=== PATIENT | female | born 1960 | race Caucasian/White ===

== ENCOUNTER 2022-09-01 17:12 | Emergency (ER) | payer MEDICARE, SELFPAY ==
[2022-09-01] VITALS (10 sets, daily range): BP systolic 112–138; BP diastolic 72–83; PULSE 125–127; RESP 22–34; TEMP 37; O2SAT 90–98; BMI 64.9
--- NOTE | 2022-09-01 17:16 | XR_ITS ---
The [address] [address] Patient Name: DIVINA AMIN MRN: [id number] date: 1960 Sex: F Assigned Patient Location: ER Current Patient Location: ED.MAIN Accession/Order Number: [id number] Exam Date: 09/01/2022 17:38 Report Date: 09/01/2022 18:19 At the request of: HARRISON MARTINEZ Procedure: XR chest 1V EXAM: XR chest 1V HISTORY: pain COMPARISON: None. TECHNIQUE: Chest X-ray AP, 1 view FINDINGS: Support devices: None. Lungs/pleura: No consolidation, effusion, or pneumothorax. Heart and mediastinum: Normal contours. Bones: No acute abnormality identified. XR/XR chest 1V Impression: No radiographic evidence of acute cardiopulmonary process. Electronically authenticated by: ADAN PHILIPPE Date: 09/01/2022 18:19
--- NOTE | 2022-09-01 17:16 | ECG_ITS ---
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
--- NOTE | 2022-09-01 17:34 | ED.GENADUL1 ---
HPI - General Adult General Chief complaint: Shortness of Breath/Dyspnea Time Seen by Provider: 09/01/22 17:16 Source: other Source information: ems Mode of arrival: ambulance History of Present Illness HPI narrative: patient brought emergency room by paramedics from her home. The paramedics indicate that the house was in extremely poor condition is extremely hot. They were told that there was cockroaches. They said that the patient was started on oxygen and a small IV was started. The patient confirms to me that she lives with family members who called for the squad. She says that she's not eat for a couple days because of epigastric pain nausea and vomiting. She says she's also having trouble breathing. She says she has a history of chronic obstructive pulmonary disease and asthma and uses both metered dose inhaler, she has a belies machine but has not been using it. She says she also has a sore in her groin area, her primary care doctor called in an antibiotic for her but did not see her in the office.she is also a diabetic. Her blood sugars tested elevated by the senior geologist squad. Related Data Allergies Allergy/AdvReac Type Severity Reaction Status Date / Time amoxicillin AdvReac Unknown Verified 09/01/22 17:30 Penicillins AdvReac Unknown Verified 09/01/22 17:30 [facility] Social History Smoking status: Current every day smoker Exam Narrative Exam Narrative: patient seen on arrival. EKG shows sinus tachycardia rate one twenty-five. There is no evidence of ST segment elevation when she does not have any heaviness or pressure in her chest. Skin is warm and dry. Pulse oximetry is ninety-seven ninety-eight percent on 3 L. Her lungs showed some wheezing but there is overall good airflow.both her heart rate and respiratory rate were elevated Heart rate and rhythm is tachycardic a do not hear murmur. ENT examination shows no evidence of oral cavity infection. Abdomen is obese but does not have a evidence of cellulitis lesions or tenderness palpation.she has a large panniculus and underneath the abdominal fold in the left groin adjacent to the vagina area is a firm tender area approximately 2 x 3 cm with some surrounding erythema consistent with an abscess. She says it has been draining. Neurological shows no focal neurological deficits, cognition is normal she's awake and alert adequate historian. Constitutional Vital Signs, click to edit/add: Last Vital Signs Temp 98.6 F 09/01/22 17:17 Pulse 127 H 09/01/22 18:14 Resp 34 H 09/01/22 17:17 BP 115/78 09/01/22 17:17 Pulse Ox 98 09/01/22 18:14 O2 Del Method Nasal Cannula 09/01/22 17:45 O2 Flow Rate 3 09/01/22 18:14 Course Vital Signs Vital signs: Vital Signs Temperature 98.6 F 09/01/22 17:17 Pulse Rate 125 H 09/01/22 17:17 Respiratory Rate 34 H 09/01/22 17:17 Blood Pressure 115/78 09/01/22 17:17 Pulse Oximetry 90 L 09/01/22 17:17 Oxygen Delivery Method Room Air 09/01/22 17:17 Temperature 98.6 F 09/01/22 17:17 Pulse Rate 127 H 09/01/22 18:14 Respiratory Rate 34 H 09/01/22 17:17 Blood Pressure 115/78 09/01/22 17:17 Pulse Oximetry 98 09/01/22 18:14 Oxygen Delivery Method Nasal Cannula 09/01/22 17:45 Oxygen Delivery Flow Rate 3 09/01/22 18:14 Medical Decision Making MDM Narrative Medical decision making narrative: this patient presents with both respiratory difficulty and abscess in her left groin and she's not been taking her meds or eating because his epigastric discomfort. IV fluid resuscitation was initiated. I will order biotics. She will need a CT of the abdomen and pelvis. Care will be turned over to Dr. Bliss at change of shift area differential diagnosis at this time includes DKA , sepsis, we'll rule out bowel obstruction Lab Data Labs: Lab Results 09/01/22 09/01/22 Range/Units 17:55 18:05 WBC 21.9 H (4.0-11.0) 10^3/uL RBC 5.47 H (4.20-5.40) 10^6/uL Hgb 16.7 H (12.0-16.0) g/dL Hct 51.8 H (36.0-48.0) % MCV 94.7 (81.0-99.0) fL MCH 30.5 (26.7-34.0) pg MCHC 32.2 (29.9-35.2) g/dL RDW 12.4 (11.0-15.0) % Plt Count 380 (150-450) 10^3/uL MPV 10.5 (9.5-13.5) fL D-Dimer 1.14 H* (<=0.59) mg/L FEU ABG pH 7.033 L* (7.350-7.450) ABG pCO2 <15.4 L* (35.0-45.0) mmHg ABG pO2 139.0 H (80.0-100.0) mmHg ABG HCO3 TNP ABG O2 Saturation 98.2 % ABG Base Excess TNP Anthony Test Positive (POSITIVE) O2 Liters/Min 3 Discharge Plan Discharge Chief Complaint: Shortness of Breath/Dyspnea Clinical Impression: DKA (diabetic ketoacidosis) Patient Disposition: Still a Patient Referrals: Candida Brown [Primary Care Provider] - 1 week
--- NOTE | 2022-09-01 17:43 | CT_ITS ---
[place] [id number] Patient Name: DIVINA AMIN MRN: [id number] date: 1960 Sex: F Assigned Patient Location: ER Current Patient Location: ED.MAIN Accession/Order Number: [id number] Exam Date: 09/01/2022 19:42 Report Date: 09/01/2022 20:38 At the request of: HARRISON MARTINEZ Procedure: CT abdomen pelvis wo con EXAMINATION: CT ABDOMEN AND PELVIS WITHOUT IV CONTRAST CLINICAL HISTORY: Nausea and vomiting. TECHNIQUE: Non-IV contrast imaging of the abdomen and pelvis was performed using standard technique, scanning from just above the dome of the diaphragm to the symphysis pubis. Unenhanced imaging is limited for the evaluation of some intra-abdominal and pelvic pathology. All CT scans at this facility use dose modulation, iterative reconstruction, and/or weight based dosing when appropriate to reduce radiation dose to as low as reasonably achievable. Contrast: IV: None COMPARISON: None. RESULT: Abdomen / Pelvis: Liver: Unremarkable. Biliary: S/p cholecystectomy. Spleen: No splenomegaly. Pancreas: Unremarkable. Adrenals: 2.8 cm left adrenal adenoma. Kidneys: 2 mm right inferior pole nonobstructing calculus. No hydronephrosis. GI Tract: Small hiatal hernia. Otherwise, the stomach is unremarkable. No bowel dilation or wall thickening. Appendix not visualized. There is diverticulosis. No changes of diverticulitis. Lymph Nodes: No lymphadenopathy. Mesentery/peritoneum: No ascites. Retroperitoneum: No mass. Vasculature: Atherosclerotic vascular disease without aneurysm. Pelvis: No mass or ascites. Urinary bladder is unremarkable. Bones/Soft Tissues: Small amount of subcutaneous gas and soft tissue stranding along the left perianal soft tissues (series 3 image and on 42), concerning for necrotizing fasciitis. Degenerative changes of the lumbar spine. Lower thorax: Unremarkable. CT/CT abdomen pelvis wo con IMPRESSION: No acute findings of the abdomen and pelvis. Suspected necrotizing fasciitis along the lateral left perianal region. COMMUNICATION: Communicated with: Emergency room physician by [employer] on 09/01/2022 at 8:38 PM. Electronically authenticated by: SCOTTIE HERNÁNDEZ Date: 09/01/2022 20:38
[2022-09-01] MEDS: IPRATROPIUM/ALBUTEROL SULFATE 3 ML AMPUL.NEB IH (18:13)
[2022-09-01 18:25] LABS: pH ABG 7.033 (7.350-7.450)
[2022-09-01 18:26] LABS: ABG PCO2 <15.4 mmHg (35.0-45.0)
[2022-09-01 18:27] LABS: Allen Test POSITIVE (POSITIVE); Liters per Minute 3; O2 Mode NC; Oxygen Saturation ABG 98.2 %
[2022-09-01] MEDS: 0.9 % SODIUM CHLORIDE 1,000 ML 999 ML IV (18:32)
[2022-09-01] MEDS: ONDANSETRON PF 4 MG/2 ML VIAL IV (18:32)
[2022-09-01 18:34] LABS: Hematocrit 51.8 % (36.0-48.0); Hemoglobin 16.7 g/dL (12.0-16.0); Mean Corpuscular HGB Conc 32.2 g/dL (29.9-35.2); Mean Corpuscular Hemoglobin 30.5 pg (26.7-34.0); Mean Corpuscular Volume 94.7 fL (81.0-99.0); Mean Platelet Volume 10.5 fL (9.5-13.5); Platelet Count 380 10^3/uL (150-450); Red Blood Count 5.47 10^6/uL (4.20-5.40); Red Cell Distribution Width 12.4 % (11.0-15.0); White Blood Count 21.9 10^3/uL (4.0-11.0)
[2022-09-01 18:45] LABS: Lactate/Lactic Acid 1.7 mmol/L (0.4-2.0)
[2022-09-01 18:51] LABS: D Dimer 1.14 mg/L FEU (<=0.59)
[2022-09-01 18:55] LABS: Band Neutrophils Absolute 0.2 10^3/uL (0.0-0.3); Eosinophils Absolute Manual 1.09 10^3/uL (0.00-0.70); Lymphocytes Absolute Manual 0.43 10^3/uL (1.20-3.80); Monocytes Absolute Manual 1.31 10^3/uL (0.30-0.80); Segmented Neut Absolute Manual 18.83 10^3/uL (1.4-6.5)
[2022-09-01 18:56] LABS: Alanine Aminotransferase 23 U/L (14-59); Albumin Globulin Ratio 0.6; Albumin Level 3.1 g/dL (3.4-5.0); Alkaline Phosphatase 261 U/L (46-116); Anion Gap 34.6; Aspartate Amino Transferase 14 U/L (15-37); BUN Creatinine Ratio 16.9; Bilirubin Total 0.6 mg/dL (0.2-1.0); Calcium 10.1 mg/dL (8.5-10.1); Carbon Dioxide 6.2 mmol/L (21.0-32.0); Chloride 97 mmol/L (98-107); Estimated GFR (African America 51 (>=60); Estimated GFR (Non-African Ame 42 (>=60); Globulin 5.6 g/dL; Glucose 481 mg/dL (74-106); Potassium 4.8 mmol/L (3.5-5.1); Sodium 133 mmol/L (136-145); Total Protein 8.7 g/dL (6.4-8.2); Troponin I High Sensitivity 7.9 pg/mL (4.0-51.3)
[2022-09-01] MEDS: VANCOMYCIN HCL 1,500 MG in 0.9 % SODIUM CHLORIDE 500 ML 250 MG IV (19:22)
[2022-09-01 20:12] LABS: Bilirubin Urine SMALL (NEGATIVE); Blood Urine MODERATE (NEGATIVE); Clarity Urine CLEAR (CLEAR); Color Urine LT. YELLOW (YELLOW); Glucose Urine UA 500 mg/dL (NEGATIVE); Ketones Urine >=80 mg/dL (NEGATIVE); Leukocyte Esterase Urine NEGATIVE (NEGATIVE); Nitrite Urine NEGATIVE (NEGATIVE); Protein Urine 30 mg/dL (NEG/TRACE); Specific Gravity Urine >=1.030 (1.005-1.025); Urobilinogen Urine 0.2 EU/dL (0.2-1.0); pH Urine 5.5 (5.0-9.0)
[2022-09-01 20:14] LABS: Urine Microscopic Indicated YES
[2022-09-01 20:20] LABS: Bacteria Urine TRACE #/HPF (NONE SEEN); Crystals Seen? None Seen #/HPF (None Seen); Mucus Urine NONE SEEN (NONE SEEN); Squamous Epithelial Cell Urine FEW #/LPF (NONE/RARE); WBC Urine 0-2 #/HPF (NONE SEEN)
[2022-09-01 20:21] LABS: Cast Seen? NONE SEEN #/LPF (NONE SEEN); Urine Culture Indicated NO
[2022-09-01 20:27] LABS: Acetone SMALL (NEGATIVE)
[2022-09-01 20:33] LABS: Salicylate 8.4 mg/dL (<=19.9)
[2022-09-01 20:40] LABS: Ethanol <3 mg/dL
[2022-09-01] MEDS: 0.9 % SODIUM CHLORIDE 1,000 ML 2000 ML IV (21:52)
[2022-09-01] MEDS: 0.9 % SODIUM CHLORIDE 1,000 ML 1000 ML IV (22:53)
[2022-09-02 11:51] LABS: A. calcoaceticus-baumannii Cpx NOT DETECTED (NOT DETECTE); Bacteroides fragilis NOT DETECTED (NOT DETECTE); Candida albicans NOT DETECTED (NOT DETECTE); Candida auris NOT DETECTED (NOT DETECTE); Candida glabrata NOT DETECTED (NOT DETECTE); Candida krusei NOT DETECTED (NOT DETECTE); Candida parapsilosis NOT DETECTED (NOT DETECTE); Candida tropicalis NOT DETECTED (NOT DETECTE); Cryptococcus neoformans/gattii NOT DETECTED (NOT DETECTE); Enterobacter cloacae complex NOT DETECTED (NOT DETECTE); Enterobacterales NOT DETECTED (NOT DETECTE); Enterococcus faecalis NOT DETECTED (NOT DETECTE); Enterococcus faecium NOT DETECTED (NOT DETECTE); Haemophilus influenzae NOT DETECTED (NOT DETECTE); Klebsiella aerogenes NOT DETECTED (NOT DETECTE); Klebsiella pneumoniae group NOT DETECTED (NOT DETECTE); Listeria monocytogenes NOT DETECTED (NOT DETECTE); Neisseria meningitidis NOT DETECTED (NOT DETECTE); Proteus spp. NOT DETECTED (NOT DETECTE); Pseudomonas aeruginosa NOT DETECTED (NOT DETECTE); Salmonella spp. NOT DETECTED (NOT DETECTE); Serratia marcescens NOT DETECTED (NOT DETECTE); Staphylococcus epidermidis NOT DETECTED (NOT DETECTE); Staphylococcus lugdunensis NOT DETECTED (NOT DETECTE); Stenotrophomonas maltophilia NOT DETECTED (NOT DETECTE); Streptococcus agalactiae NOT DETECTED (NOT DETECTE); Streptococcus pneumoniae NOT DETECTED (NOT DETECTE); Streptococcus pyogenes NOT DETECTED (NOT DETECTE); Streptococcus spp. NOT DETECTED (NOT DETECTE)
[2022-09-02 13:05] LABS: Staphylococcus spp. DETECTED (NOT DETECTE)
--- NOTE | 2022-09-02 14:24 | PC.NURSE ---
+Blood culter rec'vd and Called [facility] where pt was transferred. Spoke with pt's nurse, SUZANNE Banks at [phone] on floor [address] 3. Poss Blood culture results faxed to [phone] after informing SUZANNE Banks of this. SUZANNE Banks asked about pt's personal belongings that were not sent with pt and family is asking about these. Informed Jocelyn that a bag is here with a PJ like top / gown and 1 ring. Informed Jocelyn that this nurse will contact family about left belongings. Called pt's daughter Mercy Canales at [phone] prior to adding this note to chart with no answer, will continue to try to call daughter as time permits
--- NOTE | 2022-09-02 14:52 | PC.NURSE ---
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 Mercy verbalized understanding.
== END 2022-09-01 23:17 | disposition short-term general hospital (02) ==
PROVIDERS: Emergency Medicine Emergency Medical Services; Emergency Provider Emergency Medicine; PCP Nurse Practitioner
DX: A41.9 Sepsis, unspecified organism (principal); E11.10 Type 2 diabetes mellitus with ketoacidosis without coma; M72.6 Necrotizing fasciitis; F17.210 Nicotine dependence, cigarettes, uncomplicated; R06.02 Shortness of breath
CPT/HCPCS: 36415; 36600; 71045; 74176; 80053; 80179; 80320; 81003; 81015; 82009; 82805; 83605; 83690; 83880; 84484; 85007; 85025; 85378; 87040; 87150; 87186; 93005; 94640; 96361; 96374; 96375; 99285; J3370

== ENCOUNTER 2022-10-24 12:04 | Outpatient (REF) | payer MEDICARE, SELFPAY ==
[2022-10-24 13:26] LABS: Anion Gap 13.9; BUN Creatinine Ratio 13.4; Calcium 8.7 mg/dL (8.5-10.1); Carbon Dioxide 21.9 mmol/L (21.0-32.0); Chloride 103 mmol/L (98-107); Estimated GFR (African America 56 (>=60); Estimated GFR (Non-African Ame 46 (>=60); Glucose 168 mg/dL (74-106); Magnesium 1.7 mg/dL (1.8-2.4); Potassium 4.8 mmol/L (3.5-5.1); Sodium 134 mmol/L (136-145)
== END 2022-10-24 12:05 | disposition home or self-care (01) ==
LOC: LAB 12:04
PROVIDERS: PCP Nurse Practitioner
DX: E83.42 Hypomagnesemia (principal)
CPT/HCPCS: 36415; 80048; 83735

== ENCOUNTER 2022-11-06 12:10 | Outpatient (REF) | payer MEDICARE, SELFPAY ==
[2022-11-06 13:27] LABS: Basophils Percent Auto 0.5 % (0.2-2.0); Eosinophils Percent Auto 0.2 % (0.9-7.0); Hematocrit 36.1 % (36.0-48.0); Hemoglobin 11.6 g/dL (12.0-16.0); Immature Granulocytes Abs Auto 0.02 10^3/uL (0.00-0.03); Immature Granulocytes Pct Auto 0.4 % (0.0-0.5); Lymphocytes Percent Auto 35.3 % (20.5-60.0); Mean Corpuscular HGB Conc 32.1 g/dL (29.9-35.2); Mean Corpuscular Hemoglobin 31.2 pg (26.7-34.0); Mean Platelet Volume 9.3 fL (9.5-13.5); Monocytes Absolute Auto 0.6 10^3/uL (0.3-0.8); Monocytes Percent Auto 10.5 % (1.7-12.0); Neutrophils Percent Auto 53.1 % (43.0-75.0); Platelet Count 423 10^3/uL (150-450); Red Blood Count 3.72 10^6/uL (4.20-5.40); Red Cell Distribution Width 14.4 % (11.0-15.0); White Blood Count 5.6 10^3/uL (4.0-11.0)
[2022-11-06 13:42] LABS: Anion Gap 12.7; BUN Creatinine Ratio 7.1; Calcium 8.5 mg/dL (8.5-10.1); Carbon Dioxide 27.9 mmol/L (21.0-32.0); Chloride 104 mmol/L (98-107); Estimated GFR (African America 41 (>=60); Estimated GFR (Non-African Ame 34 (>=60); Glucose 117 mg/dL (74-106); Magnesium 1.7 mg/dL (1.8-2.4); Potassium 4.6 mmol/L (3.5-5.1); Sodium 140 mmol/L (136-145)
== END 2022-11-06 12:11 | disposition home or self-care (01) ==
LOC: LAB 12:10
PROVIDERS: PCP Nurse Practitioner
DX: R11.2 Nausea with vomiting, unspecified (principal)
CPT/HCPCS: 36415; 80048; 83735; 85025

== ENCOUNTER 2022-12-07 09:38 | Outpatient (OUT) | payer MEDICARE, SELFPAY ==
[2022-12-07 10:24] LABS: Anion Gap 13.8; BUN Creatinine Ratio 11.6; Calcium 9.5 mg/dL (8.5-10.1); Carbon Dioxide 25.3 mmol/L (21.0-32.0); Chloride 102 mmol/L (98-107); Estimated GFR (African America 51 (>=60); Estimated GFR (Non-African Ame 42 (>=60); Glucose 272 mg/dL (74-106); Potassium 4.1 mmol/L (3.5-5.1); Sodium 137 mmol/L (136-145)
[2022-12-07 10:39] LABS: Estimated Average Glucose 137 mg/dL; Glycohemoglobin A1C 6.4 % (4.5-6.2)
== END 2022-12-07 09:39 | disposition home or self-care (01) ==
LOC: LAB 09:41
PROVIDERS: PCP Nurse Practitioner; Visit Provider Nurse Practitioner
DX: E11.9 Type 2 diabetes mellitus without complications (principal)
CPT/HCPCS: 36415; 80048; 83036

== ENCOUNTER 2022-12-28 13:50 | Outpatient (OUT) | payer MEDICARE, SELFPAY ==
[2022-12-28 14:55] LABS: Anion Gap 13.5; BUN Creatinine Ratio 18.9; Calcium 8.9 mg/dL (8.5-10.1); Carbon Dioxide 25.2 mmol/L (21.0-32.0); Chloride 105 mmol/L (98-107); Estimated GFR (African America 52 (>=60); Estimated GFR (Non-African Ame 43 (>=60); Glucose 284 mg/dL (74-106); Magnesium 1.6 mg/dL (1.8-2.4); Potassium 3.7 mmol/L (3.5-5.1); Sodium 140 mmol/L (136-145)
== END 2022-12-28 13:51 | disposition home or self-care (01) ==
LOC: LAB 13:50
PROVIDERS: PCP Nurse Practitioner; Visit Provider Nurse Practitioner
DX: N18.30 Chronic kidney disease, stage 3 unspecified (principal); E83.42 Hypomagnesemia
CPT/HCPCS: 36415; 80048; 83735

== ENCOUNTER 2023-08-11 09:56 | Outpatient (OUT) | payer MEDICARE, SELFPAY ==
[2023-08-11 10:40] LABS: Basophils Absolute Auto 0.1 10^3/uL (0.0-0.1); Basophils Percent Auto 0.5 % (0.2-2.0); Eosinophils Absolute Auto 0.2 10^3/uL (0.0-0.7); Eosinophils Percent Auto 1.4 % (0.9-7.0); Hematocrit 42.4 % (36.0-48.0); Hemoglobin 13.8 g/dL (12.0-16.0); Immature Granulocytes Abs Auto 0.03 10^3/uL (0.00-0.03); Immature Granulocytes Pct Auto 0.3 % (0.0-0.5); Lymphocytes Absolute Auto 2.1 10^3/uL (1.2-3.8); Lymphocytes Percent Auto 18.9 % (20.5-60.0); Mean Corpuscular HGB Conc 32.5 g/dL (29.9-35.2); Mean Corpuscular Volume 92.2 fL (81.0-99.0); Mean Platelet Volume 9.9 fL (9.5-13.5); Monocytes Absolute Auto 0.4 10^3/uL (0.3-0.8); Monocytes Percent Auto 3.9 % (1.7-12.0); Neutrophils Absolute Auto 8.2 10^3/uL (1.4-6.5); Platelet Count 333 10^3/uL (150-450); Red Cell Distribution Width 12.3 % (11.0-15.0)
[2023-08-11 10:42] LABS: Bilirubin Urine NEGATIVE (NEGATIVE); Blood Urine NEGATIVE (NEGATIVE); Clarity Urine CLEAR (CLEAR); Color Urine LT. YELLOW (YELLOW); Glucose Urine UA >=1000 mg/dL (NEGATIVE); Ketones Urine NEGATIVE (NEGATIVE); Leukocyte Esterase Urine NEGATIVE (NEGATIVE); Nitrite Urine NEGATIVE (NEGATIVE); Protein Urine NEGATIVE (NEG/TRACE); Urine Microscopic Indicated NO; Urobilinogen Urine 0.2 EU/dL (0.2-1.0); pH Urine 5.5 (5.0-9.0)
[2023-08-11 11:14] LABS: Estimated Average Glucose 303 mg/dL; Glycohemoglobin A1C 12.2 % (4.5-6.2)
[2023-08-11 11:15] LABS: Alanine Aminotransferase 16 U/L (14-59); Albumin Globulin Ratio 0.8; Albumin Level 3.5 g/dL (3.4-5.0); Alkaline Phosphatase 142 U/L (46-116); Anion Gap 15.6; Aspartate Amino Transferase 10 U/L (15-37); BUN Creatinine Ratio 20.4; Bilirubin Total 0.4 mg/dL (0.2-1.0); Calcium 9.1 mg/dL (8.5-10.1); Carbon Dioxide 24.4 mmol/L (21.0-32.0); Chloride 102 mmol/L (98-107); Chol HDL Ratio 3.6; Cholesterol 209 mg/dL (<=200); Estimated GFR (African America 42 (>=60); Estimated GFR (Non-African Ame 35 (>=60); Globulin 4.2 g/dL; Glucose 295 mg/dL (74-106); HDL Cholesterol 58 mg/dL (40-60); Magnesium 1.8 mg/dL (1.8-2.4); Sodium 138 mmol/L (136-145); Total Protein 7.7 g/dL (6.4-8.2); Triglycerides 141 mg/dL (<=150); VLDL CHOLESTEROL 28.2 mg/dL
[2023-08-11 13:12] LABS: Creatinine Urine Random 58.65 mg/dL (20.00-300.00); Microalbum Creatinine Ratio Ur 42.6 mg/g (0.0-29.9); Microalbumin Urine Random 2.5 mg/dL (<=30.0)
== END 2023-08-11 09:57 | disposition home or self-care (01) ==
LOC: LAB 09:58
PROVIDERS: PCP Nurse Practitioner; Visit Provider Nurse Practitioner
DX: E83.42 Hypomagnesemia (principal); E11.9 Type 2 diabetes mellitus without complications; Z79.4 Long term (current) use of insulin; E78.2 Mixed hyperlipidemia; I10 Essential (primary) hypertension
CPT/HCPCS: 36415; 80053; 80061; 81003; 82043; 82570; 83036; 83735; 85025

== ENCOUNTER 2024-07-19 09:04 | Emergency (ER) | payer MEDICARE, SELFPAY ==
[2024-07-19] VITALS (16 sets, daily range): BP systolic 97–127; BP diastolic 45–74; PULSE 100–114; TEMP 36.8; O2SAT 82–100; BMI 53.0
--- OUTSIDE RECORDS SUMMARY | 2024-07-19 09:11 | XMS_ITS | Clinical Summary ---
[facility] Address [address] [place] [address] Care Team Providers Care Belt Line Feeder Name Role Phone Candida Brown APRN, NP Primary Care Provide r Allergies Active Allergy Reactions Criticality Noted Date Comments Amoxicillin 09/02/2022 Penicillins 09/02/2022 Medications pravastatin (PRAVACHOL) 20 MG tablet Take 1 tablet by mouth daily Active albuterol sulfate HFA (PROVENTIL;ANTHONY TOLIN;PROAIR) 108 (90 Base) MCG/ACT inhaler Inhale 2 puffs into the lungs 4 times daily as needed for Wheezing Active hydroCHLOROthi azide (HYDRODIURIL) 25 MG tablet Take 0.5 tablets by mouth daily Active metFORMIN (GLUCOPHAGE-XR ) 500 MG extended release tablet Take 1 tablet by mouth 2 times daily Active lisinopril (PRINIVIL;ZEST RIL) 5 MG tablet Take 1 tablet by mouth daily Active glipiZIDE (GLUCOTROL) 10 MG tablet Take 1 tablet by mouth 2 times daily Active miconazole (MICOTIN) 2 % cream Apply topically 2 times daily. 14 g 3 Active Additional Information Patient not taking.Reported on 10/25/2022 miconazole (MICOTIN) 2 % powder Apply topically 2 times daily. 45 g 1 3 Active Additional Information Patient not taking.Reported on 10/25/2022 spironolactone (ALDACTONE) 25 MG tablet Take 1 tablet by mouth daily 30 tablet 3 3 Active Additional Information Patient not taking.Reported on 10/25/2022 lactobacillus (CULTURELLE) capsule Take 1 capsule by mouth 2 times daily (with meals) 20 capsule 3 Active Additional Information Patient not taking.Reported on 10/25/2022 psyllium (METAMUCIL) 58.12 % PACK packet Take 1 packet by mouth daily 2 packet 3 Active Additional Information Patient not taking.Reported on 12/06/2022 potassium chloride (KLOR-CON M) 20 MEQ extended release tablet Take 1 tablet by mouth daily 20 tablet 1 3 Active Additional Information Patient not taking.Reported on 12/06/2022 insulin glargine (LANTUS SOLOSTAR) 100 UNIT/ML injection pen Inject 20 Units into the skin 2 times daily 5 Adjustable Dose Pre-filled Pen Syringe 3 3 Active PARoxetine (PAXIL) 20 MG tablet Take 1 tablet by mouth daily 30 tablet 3 3 Active Additional Information Patient taking differently: 30 mgOral DAILY, Reported on 10/25/2022 acetaminophen (TYLENOL) 325 MG tablet Take 2 tablets by mouth every 6 hours as needed for Pain Active magnesium oxide (MAG-OX) 400 (240 Mg) MG tablet Take 1.25 tablets by mouth 2 times daily Active meclizine (ANTIVERT) 12.5 MG tablet Take 1 tablet by mouth 3 times daily as needed Active midodrine (PROAMATINE) 5 MG tablet Take 2 tablets by mouth 3 times daily Active omeprazole (PRILOSEC) 20 MG delayed release capsule Take 1 capsule by mouth daily Active senna (SENOKOT) 8.6 MG tablet Take 2 tablets by mouth daily Active ondansetron (ZOFRAN) 4 MG tablet Take 1 tablet by mouth every 8 hours as needed for Nausea or Vomiting Active simethicone (MYLICON) 80 MG chewable tablet Take 1 tablet by mouth every 6 hours as needed for Flatulence Active nicotine (NICODERM CQ) 21 MG/24HR Place 1 patch onto the skin every 24 hours Active loperamide (IMODIUM) 2 MG capsule Take 1 capsule by mouth One every 8 hours as needed for loose stools Active prochlorperazi ne (COMPAZINE) 10 MG tablet Take 1 tablet by mouth every 6 hours as needed Active Active Problems Problem Noted Date Diagnosed Date Wound of left groin 11/15/2022 Pain of upper abdomen 09/20/2022 Open wound 09/12/2022 Ventilator dependent 09/12/2022 Morbid obesity 09/12/2022 Metabolic encephalopathy 09/11/2022 Bandemia 09/10/2022 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 Septic shock 09/06/2022 Acute respiratory failure with hypoxia Diabetic acidosis without coma 09/05/2022 GEMA (obstructive sleep apnea) 09/05/2022 VELMA (acute kidney injury) 09/03/2022 Necrotizing fasciitis 09/02/2022 Metabolic acidosis 09/02/2022 Hypernatremia 09/02/2022 Hypokalemia 09/02/2022 Social History Tobacco Use Types Packs/Day Years Used Date Smoking Tobacco: Every Day Cigarettes Last attempted to quit: 08/11/2022 Passive Smoke Exposure: Past Smokeless Tobacco: Never Tobacco Cessation:Ready to Q uit: No; Counseling Given: Yes Alcohol Use Standard Drinks/Week Comments Never 0 (1 standard drink = 0.6 oz pur e alcohol) Interpersonal Safety Domain Source: IP Abuse Scr eening Answer Date Recorded Read-Only, Retired: Physical Abuse Denies 01/31/2023 Read-Only, Retired: Verbal Abuse Denies 01/31/2023 Read-Only, Retired: Emotional abuse Denies 01/31/2023 Read-Only, Retired: Financial Abuse Denies 01/31/2023 Read-Only, Retired: Sexual abuse Denies 01/31/2023 Comments Unknown Sex and Gender Information Value Date Recorded Sex Assigned at Not on file Legal Sex Female 9:11 PM EDT Gender Identity Not on file Sexual Orientation Not on file Last Filed Vital Signs Vital Sign Reading Time Taken Comments Blood Pressure 148/68 01/31/2023 1:54 PM EST Pulse 83 01/31/2023 1:54 PM EST Temperature 36.3 C (97.3 F) 01/31/2023 1:54 PM EST Respiratory Rate 20 01/31/2023 1:54 PM EST Oxygen Saturation 95% 09/20/2022 7:53 AM EDT Inhaled Oxygen Concentration - - Weight 124.3 kg (274 lb) 01/31/2023 1:54 PM EST Height 157.5 cm (5' 2 ) 01/31/2023 1:54 PM EST Body Mass Index 50.12 01/31/2023 1:54 PM EST Plan of Treatment Health Maintenance Due Date Last Done Comments Diabetic foot exam 11/04/1971 Lipids 11/04/1971 Depression Screen 1973 HIV screen 1976 Diabetic Alb to Cr ratio (uACR) test 11/04/1979 Diabetic retinal exam 11/04/1979 Hepatitis C screen 11/04/1979 DTaP/Tdap/Td vaccine (1 - Tdap) 1980 Pneumococcal 50+ years Vaccine (1 of 2 - PCV) 1980 Pap smear 1982 Cervical cancer screen 11/04/1991 HPV (without or with Pap) 11/04/1991 Breast cancer screen 2001 Colonoscopy 2006 Colorectal Cancer Screen 2006 FIT/FOBT: Average risk 2006 Fecal-DNA (Cologuard): Average risk 2006 Sigmoidoscopy/CT colonography 2006 Shingles vaccine (1 of 2) 11/04/2011 Respiratory Syncytial Virus (RSV) or age 60 yrs+ (1 - Risk 60-74 years 1-dose series) 2021 A1C test (Diabetic or Prediabetic) 09/03/2023 09/02/2022 GFR test (Diabetes, CKD 3-4, OR last GFR 15-59) 09/21/2023 09/20/2022, 09/19/2022, 09/18/2022, Additional history exists COVID-19 Vaccine ( - season) 2023 Annual Wellness Visit (Medicare Advantage) 02/14/2024 Flu vaccine (Season Ended) 2024 Diabetes screen Discontinued 09/02/2022 Hepatitis A vaccine Aged Out No longe r eligible based on patient's age to complete this topic Hepatitis B vaccine Aged Out No longe r eligible based on patient's age to complete this topic Hib vaccine Aged Out No longer eligi ble based on patient's age to complete this topic Meningococcal (ACWY) vaccine Aged Out No longer eligible based on patient's age to complete this topic Meningococcal B vaccine Aged Out No l onger eligible based on patient's age to complete this topic Polio vaccine Aged Out No longer elig ible based on patient's age to complete this topic Procedures Procedure Name Priority Date/Time Associated Diagnosis Comments BASIC METABOLIC PANEL W/ REFLEX TO MG FOR LOW K Routine 09/20/2022 5:09 AM EDT HEMOGLOBIN A1C [facility] Label Print 09/02/2022 6:03 AM EDT from Last 3 Months or Most Recently Relevant to Health Maintenance Results * (ABNORMAL) Basic Metabolic Panel w/ Reflex to MG (09/20/2022 5:09 AM EDT) Glucose 130(H) 70 - 99 mg/dL 09/20/2022 5:09 AM EDT [facility] BUN 12 8 - 23 mg/dL 09/20/2022 5:09 AM EDT [facility] Creatinine 0.8 0.5 - 0.9 mg/dL 09/20/2022 5:09 AM EDT [facility] Est, Glom Filt Rate >60 >60 mL/min/1. 73m2 09/20/2022 5:09 AM EDT [facility] Comment: These results are not intended for use in patients <18 years of age. eGFR results are calculated without a race factor using the 2020 CKD-EPI equation. Careful clinical correlation is recommended, particularly when comparing to results calculated using previous equations. The CKD-EPI equation is less accurate in patients with extremes of muscle mass, extra-renal metabolism of creatine, excessive creatine ingestion, or following therapy that affects renal tubular secretion. Calcium 8.7 8.6 - 10.4 mg/dL 09/20/2022 5:09 AM EDT [facility] Sodium 144 135 - 144 mmol/L 09/20/2022 5:09 AM EDT [facility] Potassium 3.9 3.7 - 5.3 mmol/L 09/20/2022 5:09 AM EDT [facility] Chloride 107 98 - 107 mmol/L 09/20/2022 5:09 AM EDT [facility] CO2 22 20 - 31 mmol/L 09/20/2022 5:09 AM EDT [facility] Anion Gap 15 9 - 17 mmol/L 09/20/2022 5:09 AM EDT [facility] BLOOD SPECIMEN / Unknown 09/20/2022 5:09 AM EDT 09/20/2022 5:18 AM EDT us Rodolfo Taylor MD CHEMISTRY ORDERABLES Final Resul t Performing Organization Address [facility] Co de Phone Number [facility] [address] [place] [address] * (ABNORMAL) Hemoglobin A1c (09/02/2022 6:03 AM EDT) Hemoglobin A1C 12.5(H) 4.0 - 6.0 % 09/02/2022 6:03 AM EDT [facility] Estimated Avg Glucose 312 mg/dL 09/02/2022 6:03 AM EDT [facility] Comment: The ADA and AACC recommend providing the estimated average glucose result to permit better patient understanding of their HBA1c result. BLOOD SPECIMEN / Unknown 09/02/2022 6:03 AM EDT 09/02/2022 6:03 AM EDT us Rodolfo Taylor MD CHEMISTRY ORDERABLES Final Resul t Performing Organization Address [facility] Co de Phone Number [facility] [address] [place] [address] from Last 3 Months or Most Recently Relevant to Health Maintenance Insurance [address] [address] MEDICARE Advance Directives * Full Code (Latest Code Status on File) Date Activated Date Inactivated Comments 09/02/2022 5:05 AM 09/20/2022 6:07 PM Care Teams Belt Line Feeder Relationship Specialty Start Date End Date Candida Brown, PROFESSOR OF GEOLOGY - ALUMINUM SHEET CUTTER [address] [place] [address] PCP - General Nurse Practitioner 09/02/22
--- OUTSIDE RECORDS SUMMARY | 2024-07-19 09:11 | XMS_ITS | Encounter Summary ---
Author Organization [facility] Address [address] [place] [address] Care Team Providers Care Engineer Soils Name Role Phone Candida Brown BRICK OFF BEARER Unavailable [phone] Mark Singh MD Primary Care Provider [phone] Reason for Visit * Reason Comments Med Refill Encounter Details Date Type Department Care Team (Late st Contact Info) Description 05/01/2024 Refill [facility] [address] [place] [address] Candida Brown NP [address] [place] [phone] Moderate persistent asthma with acute exacerbation in adult ([facility]) Social History Tobacco Use Types Packs/Day Years Used Date Smoking Tobacco: Every Day Cigarettes Smokeless Tobacco: Never Alcohol Use Standard Drinks/Week Comments Never 0 (1 standard drink = 0.6 oz pur e alcohol) B1300 Health Literacy Answer Date Recor ded How often do you need to hav e someone help you when you read instructions, pamphlets, or other written material from your doctor or pharmacy? Never 12/05/2023 Social Connection and Isolation Panel [NHANES] A nswer Date Recorded In a typical week, how many times do you talk on the phone with family, friends, or neighbors? Once a week 12/05/2023 How often do you get together with friends or re latives? Never 12/05/2023 How often do you attend yazdanism or synagogue serv ices? Never 12/05/2023 Do you belong to any clubs o r organizations such as yazdanism groups, unions, fraternal or athletic groups, or school groups? No 12/05/2023 How often do you attend meet ings of the clubs or organizations you belong to? Never 12/05/2023 Are you , , di vorced, , never , or living with a partner? 12/05/2023 AUDIT-C Answer Date Recorded Q1: How often do you have a drink containing alcohol? Never 12/05/2023 Q2: How many drinks containi ng alcohol do you have on a typical day when you are drinking? Patient does not drink Q3: How often do you have si x or more drinks on one occasion? Never 12/05/2023 Overall Financial Resource Strain (CARDIA) Answe r Date Recorded How hard is it for you to pa y for the very basics like food, housing, medical care, and heating? Somewhat hard 12/05/2023 PHQ-2 Answer Date Recorded Patient Health Questionnaire-2 Score 0 07/17/2023 [facility] - Occupational Stress Questionnaire Answer Date Recorded Do you feel stress - tense, restless, nervous, or anxious, or unable to sleep at night because your mind is troubled all the time - these days? Only a little 12/05/2023 Exercise Vital Sign Answer Date Recorde d On average, how many days pe r week do you engage in moderate to strenuous exercise (like a brisk walk)? 4 days 12/05/2023 On average, how many minutes do you engage in exercise at this level? 20 min 12/05/2023 Hunger Vital Sign Answer Date Recorded Within the past 12 months, y ou worried that your food would run out before you got the money to buy more. Sometimes true Within the past 12 months, t he food you bought just didn't last and you didn't have money to get more. Sometimes true PRAPARE - Transportation Answer Date Re corded In the past 12 months, has l ack of transportation kept you from medical appointments or from getting medications? No 11/14 In the past 12 months, has l ack of transportation kept you from meetings, work, or from getting things needed for daily living? No 12/05/2023 Housing Stability Vital Sign Answer Melvin e Recorded In the last 12 months, was t here a time when you were not able to pay the mortgage or rent on time? No 12/05/2023 Number of Times Moved in the Last Year Not on fi le 12/05/2023 At any time in the past 12 m [facility], were you homeless or living in a penitentiary (including now)? No 12/05/2023 Comments Unknown Sex and Gender Information Value Date Recorded Sex Assigned at Not on file Legal Sex Female 6:46 PM EDT Gender Identity Not on file Sexual Orientation Not on file documented as of this encounter Plan of Treatment Upcoming Encounters Date Type Department Care Team (Late st Contact Info) Description 08/07/2024 5:30 PM EDT Office Visit [facility] [address] [place] [address] Candida Brown NP [address] [place] [phone] documented as of this encounter Visit Diagnoses Diagnosis Moderate persistent asthma with acute exacerbation in adult ([facility]) documented in this encounter Additional Health Concerns Assessment Noted Time PHQ-9 Depression Total Score: 4 07/17/19 24 2:04 PM EDT documented as of this encounter Care Teams Engineer Soils Relationship Specialty Start Date End Date Mark Singh MD [address] [place] [address] PCP - General Family Medicine 12/14/23 Candida Brown NP [address] [place] [phone] Nurse Practitioner Family Medicine 11/13/22 documented as of this encounter
--- OUTSIDE RECORDS SUMMARY | 2024-07-19 09:11 | XMS_ITS | Clinical Summary ---
Author Organization [facility] Healthcare Address [address] [place] [address] Care Team Providers Care Business Intelligence Etl Developer Name Role Phone Candida Brown NP Unavailable Mark Singh MD Primary Care Provider [phone] Allergies Active Allergy Reactions Criticality Noted Date Comments Cephalexin Hives 03/03/2023 Penicillins Hives 03/03/2023 Medications meclizine (Antivert) 25 MG tablet Take 25 mg by mouth 3 (three) times a day as needed for dizziness 01/04/20 23 Active Glucose Blood (Blood Glucose Test Strips 333) stripIndications:T ype 2 diabetes mellitus without complication, with long-term current use of insulin Apply 1 each topically in the morning and 1 each at noon and 1 each in the evening and 1 each before bedtime. 100 strip 3 03/20/19 24 Active pravastatin (Pravachol) 20 MG tabletIndications: Mixed hyperlipidemia (CMS/HCC) Take 1 tablet (20 mg) by mouth at bedtime 90 tablet 1 09/12/19 24 Active glipiZIDE (Glucotrol) 10 MG tabletIndications: Type 2 diabetes mellitus without complication, with long-term current use of insulin Take 1 tablet (10 mg) by mouth in the morning and 1 tablet (10 mg) in the evening. Take before meals. 180 tablet 1 09/12/19 24 Active insulin glargine (Lantus) 100 UNIT/ML injectionIndicatio ns:Type 2 diabetes mellitus with insulin therapy (CMS/HCC) Inject 25 Units under the skin in the morning and 25 Units before bedtime. 45 mL 1 09/12/19 24 Active insulin glargine (Lantus) 100 UNIT/ML injectionIndicatio ns:Type 2 Diabetes Mellitus Inject 25 Units under the skin in the morning and 25 Units before bedtime. 20 mL 3 09/19/19 24 Active Continuous Glucose Calibration Tester (Dexcom G7 Calibration Tester) deviceIndications: Type 2 diabetes mellitus with insulin therapy ([facility]),Hypoglyc emia 1 each Daily 1 each 12/06/19 24 Active fluconazole (Diflucan) 150 MG tabletIndications: Candidiasis of breast Every 3 days for a total of 3 doses 3 tablet 12/06/19 24 Active PARoxetine (Paxil) 10 MG tabletIndications: Anxiety and depression ([facility]) Take 1 tablet (10 mg) by mouth in the morning. 90 tablet 04/05/19 25 Active albuterol (2.5 MG/3ML) 0.083% nebulizer solutionIndication s:Chronic obstructive pulmonary disease, unspecified COPD type ([facility]),Severe asthma, unspecified whether complicated, unspecified whether persistent ([facility]) Take 3 mL (2.5 mg) by nebulization 4 (four) times a day as needed for wheezing Take 2.5 mg by nebulization 4 (four) times a day as needed for wheezing 360 mL 05/01/19 25 Active hydroCHLOROthiazid e (HYDRODiuril) 25 MG tabletIndications: Essential hypertension ([facility]) Take 1 tablet (25 mg) by mouth in the morning. 90 tablet 05/16/19 25 025 Active albuterol HFA 90 mcg/act inhalerIndications :Moderate persistent asthma with acute exacerbation in adult ([facility]) Inhale 2 puffs every 6 (six) hours if needed for wheezing 18 g 05/23/19 25 Active omeprazole (PriLOSEC) [address] capsuleIndications :Gastroesophageal reflux disease without esophagitis Take 1 capsule (20 mg) by mouth in the morning. Take before meals. 90 capsule 06/08/19 25 025 Active metFORMIN (Glucophage) 500 MG tabletIndications: Type 2 diabetes mellitus without complication, with long-term current use of insulin Take 1 tablet (500 mg) by mouth in the morning and 1 tablet (500 mg) in the evening. Take with meals. 180 tablet 06/08/19 25 025 Active lisinopril 5 MG tabletIndications: Type 2 diabetes mellitus without complication, with long-term current use of insulin,Essential hypertension (CMS/HCC) Take 1 tablet (5 mg) by mouth in the morning. 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 [facility] 11/27/2023 Type 2 diabetes mellitus wit h diabetic chronic kidney disease 11/27/2023 Chronic kidney disease, stage 3b (HCC) Assessment & Plan (12/06/2023 5:33 PM EDT): Check labs Morbid (severe) obesity due to excess calories 1 Body mass index (BMI) 50.0-59.9, adult Encounter for subsequent [facility] wellness visit (AWV) in Medicare patient 07/17/2023 Assessment & Plan (07/17/2023 3:07 PM EDT): Reviewed Ht/Wt/BMI Recommend eye exam yearly Recommend dental exams twice a year Hand out for living will and healthcare POA Exercises is recommended most days of the week (appropriate as chronic conditions allow) Follow up yearly and prn Tobacco user 03/20/2023 Assessment & Plan (12/06/2023 7:19 AM EDT): The patient has been advised of the risks of continued smoking: stroke, DE, all forms of cancer, lung disease, and . Options for quitting smoking include: cold turkey, hypnosis, acupuncture, nicotine replacement meds (gum, lozenges, and patches), Buproprion, and Varenicline. At this time pt is encouraged to evaluate their goals for wanting to quit smoking, and reach out to provider when ready to start this process Moderate persistent asthma with acute exacerbati on in adult 03/20/2023 Assessment & Plan (12/06/2023 6:13 PM EDT): Continue with current inhalers Recommend quitting smoking as well Essential hypertension 03/20/2023 Assessment & Plan (07/17/2023 3:02 PM EDT): Still has not got labs done No changes in med dose Chronic obstructive pulmonary disease, unspecifi ed 03/20/2023 Type 2 diabetes mellitus with insulin therapy Assessment & Plan (12/06/2023 6:14 PM EDT): Check blood sugars daily, notify if <70 or >200. Take medications (pills or insulin) as directed. Monitor for s/s of hypoglycemia (sweaty, dizziness, nausea, vomiting, or shakiness). Watch for increase in thirst, urination, or appetite. Inspect feet frequently monitoring for open wounds , and also recommend yearly eye exam. Pt should attempt to remain as physically active as chronic conditions allow, as well as trying to follow a diet low in carbohydrates, and simple sugars. Needs labs, possible episode recently with hypoglycemia Will trial to get CGM approved Assessment & Plan (07/17/2023 3:03 PM EDT): Check blood sugars daily, notify if <70 or >200. Take medications (pills or insulin) as directed. Monitor for s/s of hypoglycemia (sweaty, dizziness, nausea, vomiting, or shakiness). Watch for increase in thirst, urination, or appetite. Inspect feet frequently monitoring for open wounds , and also recommend yearly eye exam: does have family hx MD, also needs checked for glaucoma and diabetic retinopathy Pt should attempt to remain as physically active as chronic conditions allow, as well as trying to follow a diet low in carbohydrates, and simple sugars. We are going to increase insulin to 25units BID, check sugars BID, offered use of CGM, she declines Check labs Hyperlipidemia 03/20/2023 Anxiety and depression 03/20/2023 Colon cancer screening 03/20/2023 Assessment & Plan (07/17/2023 3:06 PM EDT): Has completed 2 cologuards still not getting an adequate results She refuses to do any further testing Encounter for screening mamm ogram for malignant neoplasm of breast 03/20/2023 Assessment & Plan (07/17/2023 3:07 PM EDT): refused Assessment & Plan (03/20/2023 8:30 PM EST): Refused mammogram Sebaceous cyst 03/20/2023 Assessment & Plan (03/20/2023 8:31 PM EST): Treat with atb Gastroesophageal reflux disease without esophagi tis 02/26/2023 Hypomagnesemia 11/08/2022 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 Acute respiratory failure with hypoxia Diabetic acidosis without coma 09/05/2022 Resolved Problems Problem Noted Date Diagnosed Date Resolved Date Asthma, severe 03/20/2023 12/06/2023 Type 2 diabetes mellitus wit h chronic kidney disease, without long-term current use of insulin ([facility]) 10/13/2022 03/20/2023 Encounters Date Type Department Care Team Description 07/17/2024 Telephone [facility] [address] [place] [address] Candida Brown NP 06/18/2024 Refill [facility] [address] [place] [address] Candida Brown, ADOLFO Moderate persistent asthma with acute exacerbation in adult ([facility]) 06/17/2024 Refill [facility] [address] [place] [address] Candida Brown, SODA CLERK Moderate persistent asthma with acute exacerbation in adult ([facility]) 06/07/2024 [facility] [address] [place] [address] Aichholz, Candida, SODA CLERK Essential hypertension ([facility]) (Primary Dx); Chronic kidney disease, stage 3b ([facility]) ([facility]); Type 2 diabetes mellitus with insulin therapy ([facility]); Mixed hyperlipidemia ([facility]); Hypomagnesemia 06/07/2024 Refill [facility] [address] [place] [address] Aichholz, Candiad, SODA CLERK Type 2 diabetes mellitus without complication, with long-term current use of insulin; Essential hypertension ([facility]) 06/[facility]20[facility] [address] [place] [address] Aichholz, Candida, SODA CLERK Gastroesophageal reflux disease without esophagitis; Type 2 diabetes mellitus without complication, with long-term current use of insulin 05/21/2024 [facility] [address] [place] [address] Aichholz, Candida, SODA CLERK Moderate persistent asthma with acute exacerbation in adult ([facility]) 05/11/2024 Refill [facility] [address] [place] [address] Aichholz, Candida, SODA CLERK Essential hypertension ([facility]) 05/01/2024 [facility] [address] [place] [address] Aichholz, Candida, SODA CLERK Moderate persistent asthma with acute exacerbation in adult ([facility]) 04/28/2024 [facility] [address] [place] [address] Aichholz, Candida, SODA CLERK Chronic obstructive pulmonary disease, unspecified COPD type ([facility]); Severe asthma, unspecified whether complicated, unspecified whether persistent ([facility]); Moderate persistent asthma with acute exacerbation in adult ([facility]) from Last 3 Months Immunizations Immunization Administration Dates Next Due Influenza, High-dose Seasona l, Quadrivalent, Preservative Free 12/03/2022 Influenza, injectable, MDCK, preservative free, quadrivalent 12/06/2023 Influenza, injectable, quadrivalent, preservativ e free 01/03/2021 Family History Medical History Relation Name Comments Emphysema Father Heart disease Father Prostate cancer Father Asthma Mother Cancer Mother Diabetes Mother Heart disease Mother Heart failure Mother Lymphoma Mother Relation Name Status Comments Father Mother Social History Tobacco Use Types Packs/Day Years Used Date Smoking Tobacco: Every Day Cigarettes Smokeless Tobacco: Never Tobacco Cessation:Ready to Q uit: Not Asked; Counseling Given: Not Answered Alcohol Use Standard Drinks/Week Comments Never 0 [...] Never 12/05/2023 How often do you attend advent or alevism serv ices? Never 12/05/2023 Do you belong to any clubs o r organizations such as advent groups, unions, fraternal or athletic groups, or [...] Recorded Patient Health Questionnaire-2 Score 0 07/17/2023 [facility] - Occupational Stress Questionnaire Answer Date Recorded [...] any time in the past 12 m [facility], were you homeless or living in a half-way (including now)? No 12/05/2023 Comments Unknown Sex and Gender Information Value Date Recorded Sex Assigned at Not on file Legal Sex Female 6:46 PM EDT Gender Identity Not on file Sexual Orientation Not on file Last Filed Vital Signs Vital Sign Reading Time Taken Comments Blood Pressure 126/76 12/06/2023 5:06 PM EDT Pulse 99 12/06/2023 5:06 PM EDT Temperature 36.9 C (98.4 F) 12/06/2023 5:06 PM EDT Respiratory Rate 20 07/17/2023 1:55 PM EDT Oxygen Saturation 94% 12/06/2023 5:06 PM EDT Inhaled Oxygen Concentration - - Weight 145 kg (320 lb 9.6 oz) 12/06/2023 5:06 PM EDT Height 157.5 cm (5' 2 ) 07/17/2023 1:55 PM EDT Body Mass Index 58.64 07/17/2023 1:55 PM EDT Plan of Treatment Upcoming Encounters Date Type Department Care Team (Late st Contact Info) Description 08/07/2024 5:30 PM EDT Office Visit [facility] [address] [place] [address] Candida Brown NP [address] [place] [address] Health Maintenance Due Date Last Done Comments CT Colonography 1961 Colonoscopy 1961 FIT 1961 FOBT 1961 Sigmoidoscopy 1961 Pap Smear 1982 HPV/Cotest 11/04/1991 Colorectal Cancer Screening 07/19/2020 FIT-DNA 07/19/2020 07/19/2017 Diabetes: Hemoglobin A1C 12/03/2022 09/02/2022 Mammogram 07/16/2024 07/17/2023 (Patient Refused) Medicare Annual Wellness (AWV) 07/16/2024 07/17/2023 , 07/17/2023 Diabetes: Urine Protein Screening 08/10/2024 024 Diabetes: Retinopathy Screening 07/16/2025 (Patient Refused) Influenza Vaccine Completed 12/06/2023, , 01/03/2021 Cervical Cancer Screening Discontinued Insurance * Guarantor: Denise Zelaya Account Type Relation to Patient Date of Phone Billing Address Personal/Family Self 1960 [address] [place] [address] [employer] Care Teams Business Intelligence Etl Developer Relationship Specialty Start Date End Date Mark Singh MD [address] [place] [address] PCP - General Family Medicine 12/14/23 Candida Brown NP [address] [place] [address] Nurse Practitioner Family Medicine 11/13/22
--- OUTSIDE RECORDS SUMMARY | 2024-07-19 09:11 | XMS_ITS | Encounter Summary ---
Author Organization [facility] Address [address] [place] [address] Care Team Providers Care Oracle Developer Name Role Phone Candida Brown SOLUTION ARCHITECT Unavailable Mark Singh MD Primary Care Provider [phone] Reason for Visit * Reason Comments Med Refill Encounter Details Date Type Department Care Team (Late st Contact Info) Description 06/18/2024 Refill [facility] [address] [place] [address] Candida Brown NP [address] [place] [address] Moderate persistent asthma with acute exacerbation in adult ([facility]) Social History Tobacco Use Types Packs/Day Years [...] Never 12/05/2023 How often do you attend confucianism or yarsanism serv ices? Never 12/05/2023 Do you belong to any clubs o r organizations such as confucianism groups, unions, fraternal or athletic groups, or [...] Recorded Patient Health Questionnaire-2 Score 0 07/17/2023 [facility] - Occupational Stress Questionnaire Answer Date Recorded [...] any time in the past 12 m [facility], were you homeless or living in a intermediate (including now)? No 12/05/2023 Comments Unknown Sex [...] Office Visit [facility] [address] [place] [address] Candida Brown NP [address] [place] [address] documented as of this encounter Visit Diagnoses Diagnosis Moderate persistent asthma with acute exacerbation in adult ([facility]) documented in this encounter Additional Health Concerns Assessment Noted Time PHQ-9 Depression Total Score: 4 07/17/19 24 2:04 PM EDT documented as of this encounter Care Teams Oracle Developer Relationship Specialty Start Date End Date Mark Singh MD [address] [place] [address] PCP - General Family Medicine 12/14/23 Candida Brown NP [address] [place] [address] Nurse Practitioner Family Medicine 11/13/22 documented as of this encounter
--- OUTSIDE RECORDS SUMMARY | 2024-07-19 09:11 | XMS_ITS | Encounter Summary ---
Author Organization [facility] Address [address] [place] [address] Care Team Providers Care Fuel Oil Truck Driver Name Role Phone Candida Brown APRN, NP Primary Care Provide r Encounter Details Date Type Department Care Team (Late st Contact Info) Description 02/22/2023 Pre-procedure Telephone [facility] [address] [place] [address] Glendy Perez, RN Social History Tobacco Use Types Packs/Day Years Used Date Smoking Tobacco: Every Day Cigarettes Last attempted to quit: 08/11/2022 Passive Smoke Exposure: Past Smokeless Tobacco: Never Alcohol Use Standard Drinks/Week [...] as of this encounter Plan of Treatment Not on file documented as of this encounter Visit Diagnoses Not on filedocumented in this encounter Care Teams Fuel Oil Truck Driver Relationship Specialty Start Date End Date Candida Brown APRN - NP [address] [place] [address] PCP - General Nurse Practitioner 09/02/22 documented as of this encounter
--- OUTSIDE RECORDS SUMMARY | 2024-07-19 09:11 | XMS_ITS | Encounter Summary ---
Author Organization [facility] Address [address] [place] [address] Care Team Providers Care Gearman Name Role Phone Candida Brown COMMUNITY HEALTH EDUCATOR Unavailable [phone] Mark Singh MD Primary Care Provider [phone] Reason for Visit * Reason Comments Med Refill Encounter Details Date Type Department Care Team (Late st Contact Info) Description 04/06/2024 Refill [facility] [address] [place] [address] Candida Brown NP [address] [place] [address] Moderate persistent asthma with acute exacerbation in adult ([facility]) Social History Tobacco Use Types [...] Never 12/05/2023 How often do you attend druze or anglican serv ices? Never 12/05/2023 Do you belong to any clubs o r organizations such as druze groups, unions, fraternal or athletic groups, or [...] Recorded Patient Health Questionnaire-2 Score 0 07/17/2023 [facility] - Occupational Stress Questionnaire Answer Date Recorded [...] any time in the past 12 m [facility], were you homeless or living in a group home (including now)? No 12/05/2023 Comments Unknown Sex [...] Office Visit [facility] [address] [place] [address] Candida Brown NP [address] [place] [address] documented as of this encounter Visit Diagnoses Diagnosis Moderate persistent asthma with acute exacerbation in adult ([facility]) documented in this encounter Additional Health Concerns Assessment Noted Time PHQ-9 Depression Total Score: 4 07/17/19 24 2:04 PM EDT documented as of this encounter Care Teams Gearman Relationship Specialty Start Date End Date Mark Singh MD [address] [place] [address] PCP - General Family Medicine 12/14/23 Candida Brown NP [address] [place] [phone] Nurse Practitioner Family Medicine 11/13/22 documented as of this encounter
--- OUTSIDE RECORDS SUMMARY | 2024-07-19 09:11 | XMS_ITS | Clinical Summary ---
Demographics Address [address] [place] [address] Home Phone Preferred Language Latvian Marital Status Cheondoism Affiliation Unknown Race White Ethnic Group Not or Lati no Author Organization [employer] [facility] Address [id number] [address] [place] [address] Care Team Providers Care Dentist/Owner Name Role Phone BillyflorCandida montesinos APRN-SFDC ARCHITECT Primary Care Provider Allergies Active Allergy Reactions Criticality Noted Date Comments Amoxicillin Hives Medium 10/02/2022 Penicillins Hives Medium 09/02/2022 Medications acetaminophen (TYLENOL ARTHRITIS) 650 mg 8 hr tablet Take 1 tablet (650 mg total) by mouth every 8 (eight) hours as needed for pain. Active glipiZIDE (GLUCOTROL) 10 mg tablet Take 1 tablet (10 mg total) by mouth in the morning and 1 tablet (10 mg total) in the evening. Take before meals. Active metoclopramide (REGLAN) 10 mg tablet Take 1 tablet (10 mg total) by mouth every 6 (six) hours as needed (nausea and vomiting). 30 tablet Active Additional Information Patient not taking.Reported on 11/29/2022 acidophilus-pect in, citrus 25 million cell -100 mg tablet Take 1 tablet by mouth in the morning and 1 tablet before bedtime. Active insulin glargine (LANTUS, BASAGLAR) 100 unit/mL (3 mL) insulin pen Inject 20 Units under the skin in the morning and 20 Units before bedtime. Active magnesium oxide (MAGOX) 400 mg tablet Take 1 tablet (400 mg total) by mouth in the morning and 1 tablet (400 mg total) before bedtime. Active meclizine (ANTIVERT) 25 mg tablet Chew 0.5 tablets (12.5 mg total) and swallow 3 (three) times a day. Active metFORMIN XR (GLUCOPHAGE XR) 500 mg 24 hr tablet Take 1 tablet (500 mg total) by mouth in the morning and 1 tablet (500 mg total) before bedtime. Active nicotine (NICODERM CQ) 21 mg/[address] 1 patch on the skin daily. Active PARoxetine (PAXIL) 20 mg tablet Take 1 tablet (20 mg total) by mouth in the morning. Active PARoxetine (PAXIL) 10 mg tablet Take 1 tablet (10 mg total) by mouth in the morning. Active pravastatin (PRAVACHOL) 20 mg tablet Take 1 tablet (20 mg total) by mouth in the morning. Active omeprazole (PriLOSEC OTC) 20 mg EC tablet Take 1 tablet (20 mg total) by mouth every morning before breakfast. Active albuterol (PROVENTIL HFA;VENTOLIN HFA) 90 mcg/actuation inhaler Inhale 2 puffs every 4 (four) hours as needed for wheezing. Active ondansetron (ZOFRAN) 4 mg tablet Take 1 tablet (4 mg total) by mouth every 4 (four) hours as needed for nausea or vomiting. Active midodrine (PROAMATINE) 10 mg tablet Take 1 tablet (10 mg total) by mouth 3 (three) times a day. Hold for SBP > 110 90 tablet 3 Active sodium hypochlorite (DAKIN'S, HALF-STRENGTH,) 0.25 % external solution Apply 1 Application topically in the morning. 473 mL 3 Active Additional Information Patient not taking.Reported on 11/29/2022 prochlorperazine (COMPAZINE) 10 mg tablet Take 1 tablet (10 mg total) by mouth 2 (two) times a day as needed for nausea or vomiting. 10 tablet 3 Active Additional Information Patient not taking.Reported on 11/29/2022 potassium chloride (KLOR-CON M 20) 20 MEQ CR tablet Take 1 tablet (20 mEq total) by mouth. 3 Active Active Problems Problem Noted Date Diagnosed Date Hypomagnesemia 11/08/2022 Hyponatremia 10/13/2022 Type 2 diabetes mellitus wit h chronic kidney disease, without long-term current use of insulin 10/13/2022 Hypertension due to endocrine disorder 3 Acute hypotension 10/13/2022 VELMA (acute kidney injury) 10/12/2022 GEMA (obstructive sleep apnea) 09/05/2022 Family History Relation Name Status Comments Father Mother Social History Tobacco Use Types Packs/Day Years Used Date Smoking Tobacco: Former Cigarettes 2 22.4 S tarted: 02/13/2002 Tobacco Cessation:Counseling Given: Not Answered Comments:As per pt. She quit smoking already. Alcohol Use Standard Drinks/Week Comments Not Currently 0 (1 standard drink = 0.6 oz pur e alcohol) Childcare Answer Date Recorded Childcare Unknown 07/23/2018 Employment Answer Date Recorded Employment Unknown 07/23/2018 Hunger Screening Answer Date Recorded Within the past 12 months we worried whether our food would run out before we got money to buy more. Never True 11/29/2022 Within the past 12 months th e food we bought just didn't last and we didn't have money to get more. Never True 11/29/2022 Comments No Sex and Gender Information Value Date Recorded Sex Assigned at Female 10/13/2022 3:35 AM EDT Legal Sex Female 11:57 AM EDT Gender Identity Female 10/13/2022 3:35 AM EDT Sexual Orientation Straight 10/13/2022 3: 35 AM EDT Last Filed Vital Signs Vital Sign Reading Time Taken Comments Blood Pressure 122/84 11/29/2022 10:19 AM EDT Pulse 88 11/08/2022 11:51 AM EDT Temperature 36.9 C (98.5 F) 11/08/2022 11:51 AM EDT Respiratory Rate 20 11/08/2022 11:5 1 AM EDT Oxygen Saturation 96% 11/08/2022 2:0 0 PM EDT Inhaled Oxygen Concentration - - Weight 125.2 kg (276 lb) 11/29/2022 10: 19 AM EDT patient reports was weighed yesterday Height 157.5 cm (5' 2 ) 11/29/2022 10:1 9 AM EDT Body Mass Index 50.48 11/29/2022 10:19 AM EDT Plan of Treatment Health Maintenance Due Date Last Done Comments Diabetic Ophthalmology Exam 1960 Statin Use: Diabetic 1961 Depression Screening 1973 Diabetic Foot Exam 11/04/1979 DTaP,Tdap and Td Vaccines (1 - Tdap) 1980 Pap Smear 1982 Zoster (Shingles) Vaccine (1 of 2) 11/04/2011 COVID-19 Vaccine ( season) 2023 01/03/2021, 06/29/2020, 06/04/2020 Adult BMI Screening 11/30/2023 11/29/2022 Tobacco Screening 11/30/2023 11/29/2022 Influenza Vaccine 10/14/2024 01/03/2021 Goals Goal Patient Goal Type Associated Problems Recent Progress Patient-Stated? Author SNF return General Yes Traci Deluca LSW Note: Evaluation of progress towards goal: Safe dc return to [facility] Medical Devices Not on file Insurance [employer] MEDICARE Advance Directives * Full Code (Latest Code Status on File) Date Activated Date Inactivated Comments 10/13/2022 9:01 AM 10/14/2022 6:19 PM Care Teams Dentist/Owner Relationship Specialty Start Date End Date Candida Brown, RADIO BOARD OPERATOR ANNOUNCER-SFDC ARCHITECT PCP - General Nurse Practitioner 09/22/22
--- OUTSIDE RECORDS SUMMARY | 2024-07-19 09:11 | XMS_ITS | Encounter Summary ---
Author Organization [facility] Address [address] [place] [address] Care Team Providers Care Senior Net Web Developer Name Role Phone Candida Brown APRN, NP Primary Care Provide r Encounter Details Date Type Department Care Team (Late st Contact Info) Description 12/16/2022 Pre-procedure Telephone [facility] [address] [place] [address] Zoey Downing Social History Tobacco Use Types Packs/Day Years Used Date Smoking Tobacco: Former Cigarettes Q uit: 08/11/2022 Passive Smoke Exposure: Past Smokeless Tobacco: Never Alcohol Use Standard Drinks/Week Comments Never 0 (1 standard drink = 0.6 oz pur e alcohol) Comments Unknown Sex and Gender Information Value Date Recorded Sex Assigned at Not on file Legal Sex Female 9:11 PM EDT Gender Identity Not on file Sexual Orientation Not on file documented as of this encounter Progress Notes * Zoey Downing - 12/16/2022 10:08 AM EDT Daughter called and had to reschedule her mom's appoint for wound care. She could not get out of work to bring her. She rescheduled from Monday to the day before on Monday. documented in this encounter Plan of Treatment Not on file documented as of this encounter Visit Diagnoses Not on filedocumented in this encounter Care Teams Senior Net Web Developer Relationship Specialty Start Date End Date Candida Brown APRN - NP [address] [place] [id number] PCP - General Nurse Practitioner 09/02/22 documented as of this encounter
--- OUTSIDE RECORDS SUMMARY | 2024-07-19 09:11 | XMS_ITS | Encounter Summary ---
Author Organization [facility] Address [address] [place] [address] Care Team Providers Care On Site Manager Name Role Phone Candida Brown EPIC TRAINER Unavailable [phone] Mark Singh MD Primary Care Provider [phone] Unallocated, Noms Provider Primary Care Provi alice Mark Singh MD Primary Care Provider [phone] Reason for Visit * Reason Comments Med Refill Encounter Details Date Type Department Care Team (Late st Contact Info) Description 09/28/2023 Refill [facility] [address] [place] [address] Candida Brown, EPIC TRAINER [address] [place] [address] Moderate persistent asthma with acute exacerbation in adult ([facility]) Social History Tobacco Use Types Packs/Day Years Used Date Smoking Tobacco: Every Day Cigarettes Smokeless Tobacco: Never Alcohol Use Standard Drinks/Week Comments Never 0 (1 standard drink = 0.6 oz pur e alcohol) PHQ-2 Answer Date Recorded Patient Health Questionnaire-2 Score 0 07/17/2023 Comments Unknown Sex and Gender Information Value Date Recorded Sex Assigned at Not on file Legal Sex Female 6:46 PM EDT Gender Identity Not on file Sexual Orientation Not on file documented as of this encounter Plan of Treatment Upcoming Encounters Date Type Department Care Team (Late Contact Info) Description 08/07/2024 5:30 PM EDT Office Visit [facility] [address] [place] [address] Candida Brown, ADOLFO [address] [place] [phone] documented as of this encounter Visit Diagnoses Diagnosis Moderate persistent asthma with acute exacerbation in adult ([facility]) documented in this encounter Additional Health Concerns Assessment Noted Time PHQ-9 Depression Total Score: 4 07/17/19 24 2:04 PM EDT documented as of this encounter Care Teams On Site Manager Relationship Specialty Start Date End Date Mark Singh MD [address] [place] [phone] PCP - General Family Medicine 03/03/23 12/05/23 Unallocated, Noms Provider, [address] [place] [address] PCP - General Family Medicine 12/06/23 12/13/23 Mark Singh MD [address] [place] [phone] PCP - General Family Medicine 12/14/23 Candida Brown NP [address] [place] [phone] Nurse Practitioner Family Medicine 11/13/22 documented as of this encounter
--- OUTSIDE RECORDS SUMMARY | 2024-07-19 09:11 | XMS_ITS | Encounter Summary ---
Author Organization [facility] Address [address] [place] [address] Care Team Providers Care Director Chemistry Name Role Phone Candida Brown NP Unavailable Mark Singh MD Primary Care Provider [phone] Encounter Details Date Type Department Care Team (Late st Contact Info) Description 07/17/2024 [facility] [address] [place] [address] Candida Brown NP [address] [place] [address] Social History Tobacco Use Types Packs/Day Years [...] Never 12/05/2023 How often do you attend taoist or mandaen serv ices? Never 12/05/2023 Do you belong to any clubs o r organizations such as taoist groups, unions, fraternal or athletic groups, or [...] Recorded Patient Health Questionnaire-2 Score 0 07/17/2023 [facility] - Occupational Stress [...] any time in the past 12 m [facility], were you homeless or living in a skilled nursing (including now)? 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 I have a boil online, but it is pretty bad. And I was wondering if Candida could order me anti the backroom. It seems to help. It is so to call me back and let me know. Thank you. documented in this encounter Plan of Treatment Upcoming Encounters Date Type Department Care Team (Late st Contact Info) Description 08/07/2024 5:30 PM EDT Office Visit [facility] [address] [place] [phone] Candida Brown NP [address] [place] [address] documented as of this encounter Visit Diagnoses Not on filedocumented in this encounter Additional Health Concerns Assessment Noted Time PHQ-9 Depression Total Score: 4 07/17/19 24 2:04 PM EDT documented as of this encounter Care Teams Director Chemistry Relationship Specialty Start Date End Date Mark Singh MD [address] [place] [phone] PCP - General Family Medicine 12/14/23 Candida Brown NP [address] [place] [address] Nurse Practitioner Family Medicine 11/13/22 documented as of this encounter
--- OUTSIDE RECORDS SUMMARY | 2024-07-19 09:11 | XMS_ITS | Encounter Summary ---
Author Organization [facility] Address [address] [place] [address] Care Team Providers Care Woodyard Crane Operator Name Role Phone Candida Brown NP Unavailable [phone] Mark Singh MD Primary Care Provider [phone] Mark Singh MD Primary Care Provider [phone] Unallocated, Noms Provider Primary Care Provi alice Mark Singh MD Primary Care Provider [phone] Encounter Details Date Type Department Care Team (Late st Contact Info) Description 02/08/2023 Abstract [facility] [address] [place] [phone] Candida Brown NP [address] [place] [address] Social History Tobacco Use Types Packs/Day Years Used Date Smoking Tobacco: Never Assessed Comments Unknown Sex and Gender Information Value Date Recorded Sex Assigned at Not on file Legal Sex Female 6:46 PM EDT Gender Identity Not on file Sexual Orientation Not on file documented as of this encounter Plan of Treatment Upcoming Encounters Date Type Department Care Team (Late st Contact Info) Description 08/07/2024 5:30 PM EDT Office Visit [facility] [address] [place] [phone] Candida Brown, ADOLFO [address] [place] [address] documented as of this encounter Visit Diagnoses Not on filedocumented in this encounter Care Teams Woodyard Crane Operator Relationship Specialty Start Date End Date Mark Singh MD [address] [place] [phone] PCP - General Family Medicine 12/14/22 03/02/23 Mark Singh MD [address] [place] [phone] PCP - General Family Medicine 03/03/23 12/05/23 Unallocated, [facility], [address] [place] [address] PCP - General Family Medicine 12/06/23 12/13/23 Mark Singh MD [address] [place] [phone] PCP - General Family Medicine 12/14/23 Candida Brown NP [address] [place] [address] Nurse Practitioner Family Medicine 11/13/22 documented as of this encounter
--- OUTSIDE RECORDS SUMMARY | 2024-07-19 09:11 | XMS_ITS | Encounter Summary ---
Author Organization [facility] Address [address] [place] [address] Care Team Providers Care Terra Cotta Roofer Name Role Phone Candida Brown APRN, NP Primary Care Provide r Encounter Details Date Type Department Care Team (Late st Contact Info) Description 02/22/[address] [facility] [address] [place] [address] Glendy Perez RN Social History Tobacco Use Types Packs/Day [...] on filedocumented in this encounter Care Teams Terra Cotta Roofer Relationship Specialty Start Date End Date Candida Brown APRN - NP [address] [place] [address] PCP - General Nurse Practitioner 09/02/22 documented as of this encounter
--- OUTSIDE RECORDS SUMMARY | 2024-07-19 09:11 | XMS_ITS | Encounter Summary ---
Author Organization [facility] Address [address] [place] [address] Care Team Providers Care Logistics Management Specialist Name Role Phone Candida Brown APRN, NP Primary Care Provide r Encounter Details Date Type Department Care Team (Late st Contact Info) Description 02/22/2023 Pre-procedure Telephone [facility] [address] [place] [address] Glendy Perez, RN Social History Tobacco Use [...] on filedocumented in this encounter Care Teams Logistics Management Specialist Relationship Specialty Start Date End Date Candida Brown APRN - NP [address] [place] [address] PCP - General Nurse Practitioner 09/02/22 documented as of this encounter
--- OUTSIDE RECORDS SUMMARY | 2024-07-19 09:11 | XMS_ITS | Encounter Summary ---
Author Organization [facility] Address [address] [place] [address] Care Team Providers Care Parker Name Role Phone Candida Brown GEOGRAPHICAL HISTORIAN Unavailable [phone] Mark Singh MD Primary Care Provider [phone] Reason for Visit * Reason Comments Med Refill Encounter Details Date Type Department Care Team (Late st Contact Info) Description 06/17/2024 Refill [facility] [address] [place] [address] Candida Brown NP [address] [place] [address] Moderate persistent asthma with acute exacerbation in adult ([facility]) Social History Tobacco Use Types Packs/Day [...] Never 12/05/2023 How often do you attend gnosticist or congregation serv ices? Never 12/05/2023 Do you belong to any clubs o r organizations such as gnosticist groups, unions, fraternal or athletic groups, or [...] Recorded Patient Health Questionnaire-2 Score 0 07/17/2023 [facility] Occupat ional [facility] - Occupational Stress Questionnaire Answer Date [...] any time in the past 12 m [facility], were you homeless or living in a jail (including now)? No 12/05/2023 Comments Unknown Sex [...] Office Visit [facility] [address] [place] [address] Candida Brown NP [address] [place] [phone] documented as of this encounter Visit Diagnoses Diagnosis Moderate persistent asthma with acute exacerbation in adult ([facility]) documented in this encounter Additional Health Concerns Assessment Noted Time PHQ-9 Depression Total Score: 4 07/17/19 24 2:04 PM EDT documented as of this encounter Care Teams Parker Relationship Specialty Start Date End Date Mark Singh MD [address] [place] [address] PCP - General Family Medicine 12/14/23 Candida Brown NP [address] [place] [phone] Nurse Practitioner Family Medicine 11/13/22 documented as of this encounter
--- NOTE | 2024-07-19 09:22 | CT_ITS ---
The [address] [address] Patient Name: DIVINA AMIN MRN: [id number] date: 1960 Sex: F Assigned Patient Location: ER Current Patient Location: ER Accession/Order Number: [id number] Exam Date: 07/19/2024 12:19 Report Date: 07/19/2024 12:30 At the request of: SURINDER JULIAN MD Procedure: CT pelvis w con CT PELVIS WITH CONTRAST CLINICAL DATA: Left buttock wound. Weakness for the past 4-5 days. COMPARISON: 09/01/2022 Spiral images were obtained through the pelvis following 100 mL of Visipaque 270 as per request of the ordering physician despite impaired glomerular infiltration. This CT exam was performed using one or more following dose reduction techniques: Automated exposure control, adjustment of the mA and/or kV according to patient size, or use of iterative reconstruction technique. Assessment is slightly limited by patient's large body habitus. Patient has a large pannus. There is no hydronephrosis involving the imaged kidneys. A punctate lower pole stone is suspected on the right. The small bowel loops in the field of view are normal in caliber. Stool is present within the imaged colon. There are colonic diverticula, without associated active inflammation. There is no appendiceal inflammation. The urinary bladder contains a Hunter catheter and is collapsed, limiting evaluation. The uterus appears to be surgically absent. No ascites is seen. There is subcutaneous air starting within the superior buttock region on the left and crossing the midline at the mid buttock on the right. The air extends over the lower sacrum and coccyx as well as into the left labia. There is minimal air within the muscle bundles of the inferior gluteus on that side. There is only minimal associated fibrofatty stranding in the area. No discrete fluid collections are identified to suggest a drainable abscess. The bony structures in the field of view are intact. No bony destruction is noted. CT/CT pelvis w con IMPRESSION: NO ACUTE INTRAPELVIC FINDINGS. DIVERTICULOSIS. SUBCUTANEOUS AIR IN THE LEFT BUTTOCK REGION WITH EXTENSION TO THE LEFT LABIA WELL MINOR EXTENSION ACROSS THE MIDLINE TO THE RIGHT MEDIAL BUTTOCK. THERE IS NO DRAINABLE FLUID COLLECTION. Impression dictated by: Megan Mcmahan M.D. 07/19/2024 12:30 PM Dictation Location: [place] [address] Electronically authenticated by: [id number] Date: 07/19/2024 12:30
--- NOTE | 2024-07-19 09:32 | ED.GENADUL1 ---
HPI HPI - General Adult General Chief complaint: Wound/Laceration Stated complaint: WEAKNESS Time Seen by Provider: 07/19/24 09:21 Source: patient Mode of arrival: ambulance History of Present Illness HPI narrative: Patient is a 63-year-old female who is presenting to the ER today with a wound to her left buttock. Patient says the wound has been there for the past 4 to 5 days that she is aware of. Patient thinks the wound started when she went to go sit down, on Monday or Monday, she had a misstep and might have hit her buttock on a chair that might have caused a laceration or puncture to the left buttock, patient is uncertain. Patient has no fever. Patient is diabetic. Patient smells of significant cigarette smoke/tobacco products. Patient states that she is oral and insulin diabetic. Patient lives at home. Patient states that she is also having a harder time using her right leg. Patient initially said that she could not use her right leg. Then patient is moving her right leg and flexing her right knee and extending. She is moving her right foot up and down. Patient does have coolness to bilateral lower extremities equal, bilateral. Patient does have slightly delayed cap refill to the toes of both feet. Patient states she has no headache or neck pain. She has no chest pain or shortness of breath. Patient is morbidly obese. Patient has a history of necrotizing fasciitis. It does not appear that she has signs of necrotizing fasciitis at this time, but we will be evaluating the wound. She has had nausea no vomiting. Patient is asking something for pain. Patient states that she does not wear oxygen at home. She does have a history of COPD. All systems are negative except as noted/marked. All systems reviewed and otherwise negative. Nurses note and vital signs reviewed and patient is not hypoxic. General: The patient appears mild distress secondary to pain, patient is self-aware that she has a significant foul odor to herself/wound to her left buttock. Patient is resting uncomfortably on cart. Patient is not toxic, lethargic, or listless. Skin: Warm, dry, no pallor noted. There is no rash noted. No petechiae, purpura. Patient has a 2-1/2 x 2-1/2 opening to her left mid upper buttock, there is black eschar noted, no drainage. No localized cellulitis around the wound. The area around the wound is firm, indurated; moderate tenderness to palpation to the area. Patient has significant chronic fungal rash underneath her left breast, also underneath her left pannus. Patient has mild fungal rash underneath her right breast. Mild fungal rash underneath her abdominal pannus, but the significant area is underneath the left breast. There is no mucous membrane involvement. Patient is laying in a right lateral decubitus position, stating it helps her breathe better. Also taking the pressure off her left buttock. Head: Normocephalic, atraumatic Eye: Normal conjunctiva, no drainage, EOMI. PERRL Ears, Nose, Mouth, and Throat: oral mucosa is moist. Nares patent. Mouth without vesicles. Cardiovascular: Regular Rate and Rhythm, no murmur, gallop, rub Respiratory: Patient is in no distress, no accessory muscle use, lungs are clear to auscultation, no wheezing, rales or rhonchi Back: non-tender, no CVA tenderness bilaterally to percussion. No CT LS midline pain GI: Soft, morbidly obese, no tenderness to palpation, no masses appreciated. No rebound, guarding, or rigidity noted. No distention Musculoskeletal: Patient has full range of motion of all of the extremities, no motor, sensory, or focal neurological deficits. Patient has cool to touch to palpation to bilateral lower extremities and feet, patient has slightly delayed cap refill to the toes to bilateral feet. Neurological: A&O x4, normal speech Psychiatric: Cooperative; Related Data Home Medications ?Medication ?Instructions ?Recorded ?Confirmed albuterol sulfate 2.5 mg/3 mL 2.5 mg inhalation Q6H PRN 09/01/22 07/19/24 (0.083 %) solution for nebulization shortness of breath or wheezing albuterol sulfate 90 mcg/actuation 2 inh inhalation Q6H PRN shortness 09/01/22 07/19/24 aerosol inhaler of breath or wheezing glipizide 10 mg tablet 10 mg PO DAILY 09/01/22 07/19/24 hydrochlorothiazide 25 mg tablet 25 mg 09/01/22 insulin NPH isoph U-100 human 100 unit subcut 09/01/22 unit/mL subcutaneous suspension (Humulin N NPH U-100 Insulin (isophane susp)) lisinopril 5 mg tablet 5 mg PO DAILY 09/01/22 07/19/24 metformin 500 mg tablet,extended 500 mg PO BID 09/01/22 07/19/24 release 24 hr omeprazole 20 mg capsule,delayed 20 mg PO DAILY 09/01/22 07/19/24 release paroxetine HCl 10 mg tablet 10 mg PO DAILY 09/01/22 07/19/24 pravastatin 20 mg tablet 20 mg PO DAILY 09/01/22 07/19/24 insulin glargine 100 unit/mL 25 unit subcut BID 07/19/24 07/19/24 subcutaneous solution (Lantus U-100 Insulin) Allergies Allergy/AdvReac Type Severity Reaction Status Date / Time amoxicillin Allergy Unknown Hives Verified 07/19/24 09:06 Penicillins AdvReac Unknown Hives Verified 07/19/24 09:06 [facility] Social History Smoking status: Current every day smoker Little interest or pleasure in doing things: not at all Feeling down, depressed, or hopeless: not at all Exam Constitutional Vital Signs, click to edit/add: Last Vital Signs Temp 98.3 F 07/19/24 09:08 Pulse 106 H 07/19/24 13:26 Resp 24 H 07/19/24 13:26 BP 115/74 07/19/24 15:30 Pulse Ox 83 L 07/19/24 15:05 O2 Del Method Room Air 07/19/24 13:26 Course Vital Signs Vital signs: Vital Signs Pulse Oximetry 83 L 07/19/24 09:05 Temperature 98.3 F 07/19/24 09:08 Pulse Rate 106 H 07/19/24 13:26 Respiratory Rate 24 H 07/19/24 13:26 Blood Pressure 115/74 07/19/24 15:30 Pulse Oximetry 83 L 07/19/24 15:05 Oxygen Delivery Method Room Air 07/19/24 13:26 Medical Decision Making [facility] Narrative Medical decision making narrative: Patient seen and examined: Patient will have IV, lactic, blood cultures, CT of pelvis IV contrast, lab work done. Patient will have IV antibiotics started as well. Patient is allergic to amoxicillin and penicillin, causing hives. Differential diagnosis includes but is not limited to: Left buttock abscess, sacral 2/3 ulceration, dehydration, electrolyte abnormality, sepsis, infection, foreign body, peripheral arterial disease. Diagnostics and management: Patient will have laboratory studies Relevant laboratory interpretation: Radiological studies: Please see the formal radiological report. Patient has a tracking wound from the left buttocks to the left labia, this was discussed with the radiologist. See official report. Reevaluation: Patient has been difficult to manage secondary to wanting to lay on her right side/right lateral decubitus position secondary to pain and pressure in her lower right buttock. Patient has been hemodynamically stable the entire time she has been in the ER. Patient has been in the ER for approximately 7.5 hours until transfer time. Shared decision making: I discussed with the patient the necessary laboratory findings and radiological findings. Social barriers to healthcare: There are no food insecurities, there is no issue with transportation, there are no insurance barriers. Disposition: I discussed with the patient the need for IV, lab work, CAT scan. Patient is having pain. Patient will be given morphine and Zofran. Patient will be admitted to the hospital for infection. Patient was started on IV antibiotics when she arrived. Patient is allergic to amoxicillin and penicillin. I was going to order cefepime 2 g. There is a substitute at [facility] for cefepime, patient was given IV FORTAZ. Patient was also given vancomycin as well. Patient had interruption intermittently secondary to IV access. Please see nursing notes on when IV antibiotics and IV fluids were given. Patient is meeting sepsis parameters, patient has white blood cell count of 28. Patient's lactic acid is elevated. Patient has absolute neutrophils of 25, patient does have 0.9 absolute bands. Patient does have a pH of 7.25, CO2 26. Patient sodium is 120 chloride 94 CO2 12, BUN and creatinine were 61 and 3.28. Patient has been hydrated with 3 L of IV fluid along with maintenance fluids. Glucose was 274. CK 455. Patient is thought to be septic, and more acidosis secondary to infection, not necessarily DKA. Patient has been given IV fluids. Patient has received 2 different antibiotics, Fortaz and vancomycin. Patient initially had a IV to the left hand. Patient was able to get initial IV fluids to the left hand, then the left hand IV became dislodged. Patient then had a right hand IV placed, that became dislodged as well. Patient had multiple attempts by Angelita PALACIOS, Lucy PALACIOS and nursing staff without success. Secondary to sepsis, patient's comorbidities, and needing access, education was discussed with patient. Right femoral CVC was placed. Risk and benefits of placing CVC were discussed with patient, daughter and granddaughter at bedside. We have no IV access on this patient currently, patient allowed me to place a right femoral CVC. Right femoral was placed secondary to when nurses were trying to start IVs, patient Moving around in the bed, kept moving her head and neck, not staying still. I discussed with the patient placing right IJ which would be ideal versus right femoral. Patient does have a hard time laying flat secondary to pain to her left buttock. With concern that pain patient would move when on placing a central line, the decision was made to replace right femoral CVC and patient agreed. No complications occurred. Right femoral CVC was placed with ultrasound guidance. Procedure note: Right femoral CVC placement Procedure note. CVC placement. procedure was done by . patient was cleaned, prepped, draped in normal sterile fashion. Ultrasound guidance was used to locate the right femoral vein. Seldinger technique was used. using the Cook needle, venous colored, nonpulsatile blood was accessed. guidewire was intact at all times and was removed. All 3 ports had good blood return, and were flushed easily. CVC was secured with sutures and Tegaderm. Patient tolerated procedure well without difficulty. No complications occurred. Lucy RN and Angelita Harper RN was at bedside during the procedure. Critical care time 55 minutes exclusive from separate billable procedures that were performed. The following was considered in the determination of critical care but not limited to the level of medical decision making, intensive cardiac and/or respiratory monitoring, frequent vital sign monitoring, evaluation of laboratory studies, evaluation of radiographic studies, oxygen monitoring, and constant monitoring and speaking to family at bedside Lab Data Labs: Lab Results 07/19/24 07/19/24 07/19/24 Range/Units 09:55 10:05 10:10 WBC 28.5 H (4.0-11.0) 10^3/uL RBC 4.79 (4.20-5.40) 10^6/uL Hgb 14.3 (12.0-16.0) g/dL Hct 41.1 (36.0-48.0) % MCV 85.8 (81.0-99.0) fL MCH 29.9 (26.7-34.0) pg MCHC 34.8 (29.9-35.2) g/dL RDW 12.3 (11.0-15.0) % Plt Count 301 (150-450) 10^3/uL MPV 11.1 (9.5-13.5) fL Seg Neuts % (Manual) 90.0 H (43.0-75.0) Band Neutrophils % 3.0 (0-5) % Lymphocytes % (Manual) 5.0 L (20.5-60.0) % Monocytes % (Manual) 1.0 L (1.7-12.0) % Eosinophils % (Manual) 0.0 L (0.9-7.0) % Basophils % (Manual) 1.0 (0.2-2.0) % Neutrophils # (Manual) 25.65 H (1.4-6.5) 10^3/uL Band Neutrophils # 0.9 H (0.0-0.3) 10^3/uL Lymphocytes # (Manual) 1.42 (1.20-3.80) 10^3/uL Monocytes # (Manual) 0.28 L (0.30-0.80) 10^3/uL Eosinophils # (Manual) 0.00 (0.00-0.70) 10^3/uL Basophils # (Manual) 0.28 H (0.00-0.10) 10^3/uL VBG pH 7.255 L (7.330-7.430) VBG pCO2 26.6 L (40.0-52.0) mmHg Sodium 128 L (136-145) mmol/L Potassium 4.5 (3.5-5.1) mmol/L Chloride 94 L (98-107) mmol/L Carbon Dioxide 12.2 L (21.0-32.0) mmol/L Anion Gap 26.3 BUN 61.0 H (7.0-18.0) mg/dL Creatinine 3.28 H (0.55-1.02) mg/dL Est GFR ( Amer) 17 L (>=60 mL/min/1.73m^2) Est GFR (Non-Af Amer) 14 L (>=60 mL/min/1.73m^2) BUN/Creatinine Ratio 18.6 Glucose 274 H (74-106) mg/dL Lactate 2.2 H* (0.4-2.0) mmol/L Calcium 9.3 (8.5-10.1) mg/dL Total Bilirubin 0.5 (0.2-1.0) mg/dL AST 35 (15-37) U/L ALT 31 (14-59) U/L Alkaline Phosphatase 407 H (46-116) U/L Total Creatine Kinase 455 H* (26-192) U/L Total Protein 7.4 (6.4-8.2) g/dL Albumin 1.7 L (3.4-5.0) g/dL Globulin 5.7 g/dL Albumin/Globulin Ratio 0.3 Urine Color Lt. yellow (YELLOW) Urine Clarity Clear (CLEAR) Urine pH 6.0 (5.0-9.0) Ur Specific [place] 1.020 (1.005-1.025) Urine Protein 100 A (NEG/TRACE) mg/dL Urine Glucose (UA) 250 A (NEGATIVE) mg/dL Urine Ketones Negative (NEGATIVE) mg/dL Urine Occult Blood Small A (NEGATIVE) Urine Nitrite Negative (NEGATIVE) Urine Bilirubin Negative (NEGATIVE) Urine Urobilinogen 0.2 (0.2-1.0) EU/dL Ur Leukocyte Esterase Negative (NEGATIVE) Urine RBC 2-5 A (0-2) #/HPF Urine WBC 2-5 A (NONE SEEN) #/HPF Ur Squamous Epith Cells Moderate A (NONE/RARE) #/LPF Urine Crystals Seen A (None Seen) #/HPF Amorphous Sediment Few Urine Bacteria Moderate A (NONE SEEN) #/HPF Urine Casts None seen (NONE SEEN) #/LPF Urine Mucus None seen (NONE SEEN) Ur Culture Indicated? [place] [place] Range/Units 14:50 WBC (4.0-11.0) 10^3/uL RBC (4.20-5.40) 10^6/uL Hgb (12.0-16.0) g/dL Hct (36.0-48.0) % MCV (81.0-99.0) fL MCH (26.7-34.0) pg MCHC (29.9-35.2) g/dL RDW (11.0-15.0) % Plt Count (150-450) 10^3/uL MPV (9.5-13.5) fL Seg Neuts % (Manual) (43.0-75.0) Band Neutrophils % (0-5) % Lymphocytes % (Manual) (20.5-60.0) % Monocytes % (Manual) (1.7-12.0) % Eosinophils % (Manual) (0.9-7.0) % Basophils % (Manual) (0.2-2.0) % Neutrophils # (Manual) (1.4-6.5) 10^3/uL Band Neutrophils # (0.0-0.3) 10^3/uL Lymphocytes # (Manual) (1.20-3.80) 10^3/uL Monocytes # (Manual) (0.30-0.80) 10^3/uL Eosinophils # (Manual) (0.00-0.70) 10^3/uL Basophils # (Manual) (0.00-0.10) 10^3/uL VBG pH (7.330-7.430) VBG pCO2 (40.0-52.0) mmHg Sodium (136-145) mmol/L Potassium (3.5-5.1) mmol/L Chloride (98-107) mmol/L Carbon Dioxide (21.0-32.0) mmol/L Anion Gap BUN (7.0-18.0) mg/dL Creatinine (0.55-1.02) mg/dL Est GFR ( Amer) (>=60 mL/min/1.73m^2) Est GFR (Non-Af Amer) (>=60 mL/min/1.73m^2) BUN/Creatinine Ratio Glucose (74-106) mg/dL Lactate 2.1 H* (0.4-2.0) mmol/L Calcium (8.5-10.1) mg/dL Total Bilirubin (0.2-1.0) mg/dL AST (15-37) U/L ALT (14-59) U/L Alkaline Phosphatase (46-116) U/L Total Creatine Kinase (26-192) U/L Total Protein (6.4-8.2) g/dL Albumin (3.4-5.0) g/dL Globulin g/dL Albumin/Globulin Ratio Urine Color (YELLOW) Urine Clarity (CLEAR) Urine pH (5.0-9.0) Ur Specific [place] (1.005-1.025) Urine Protein (NEG/TRACE) mg/dL Urine Glucose (UA) (NEGATIVE) mg/dL Urine Ketones (NEGATIVE) mg/dL Urine Occult Blood (NEGATIVE) Urine Nitrite (NEGATIVE) Urine Bilirubin (NEGATIVE) Urine Urobilinogen (0.2-1.0) EU/dL Ur Leukocyte Esterase (NEGATIVE) Urine RBC (0-2) #/HPF Urine WBC (NONE SEEN) #/HPF Ur Squamous Epith Cells (NONE/RARE) #/LPF Urine Crystals (None Seen) #/HPF Amorphous Sediment Urine Bacteria (NONE SEEN) #/HPF Urine Casts (NONE SEEN) #/LPF Urine Mucus (NONE SEEN) Ur Culture Indicated? Discharge Plan Discharge Chief Complaint: Wound/Laceration Clinical Impression: Open wound of left buttock with complication, Sepsis, COPD (chronic obstructive pulmonary disease), Hyperglycemia, Left buttock pain Patient Disposition: [facility] Time of Disposition Decision: 16:29 [facility]charge [facility]: [facility] Discharge location: ER to ER transfer, Dr. Maxwell. Dr Traci Cuellar is the surgeon Condition: Critical Mode of Transportation: EMS
--- NOTE | 2024-07-19 09:37 | PC.NURSE ---
Wound to left buttock with black center that is soft to touch, surrounding skin is red and warm, serousang. drainage to wound, wound has foul odor. Noted reddened areas under abdominal folds and to maría area.
[2024-07-19] MEDS: 0.9 % SODIUM CHLORIDE 1,000 ML 1000 ML IV (09:58)
[2024-07-19] MEDS: ONDANSETRON PF 4 MG/2 ML VIAL IV (09:58)
[2024-07-19] MEDS: MORPHINE SULFATE 4 MG/ML VIAL IV (10:13)
[2024-07-19] MEDS: CEFTAZIDIME 1,000 MG in 0.9 % SODIUM CHLORIDE 50 ML 100 MG IV (10:16)
[2024-07-19 10:18] LABS: Hematocrit 41.1 % (36.0-48.0); Hemoglobin 14.3 g/dL (12.0-16.0); Mean Corpuscular HGB Conc 34.8 g/dL (29.9-35.2); Mean Corpuscular Hemoglobin 29.9 pg (26.7-34.0); Mean Corpuscular Volume 85.8 fL (81.0-99.0); Mean Platelet Volume 11.1 fL (9.5-13.5); Platelet Count 301 10^3/uL (150-450); Red Blood Count 4.79 10^6/uL (4.20-5.40); Red Cell Distribution Width 12.3 % (11.0-15.0); White Blood Count 28.5 10^3/uL (4.0-11.0)
[2024-07-19 10:24] LABS: PCO2 VBG 26.6 mmHg (40.0-52.0); pH VBG 7.255 (7.330-7.430)
[2024-07-19 10:32] LABS: Bilirubin Urine NEGATIVE (NEGATIVE); Blood Urine SMALL (NEGATIVE); Clarity Urine CLEAR (CLEAR); Color Urine LT. YELLOW (YELLOW); Glucose Urine UA 250 mg/dL (NEGATIVE); Ketones Urine NEGATIVE (NEGATIVE); Leukocyte Esterase Urine NEGATIVE (NEGATIVE); Nitrite Urine NEGATIVE (NEGATIVE); Protein Urine 100 mg/dL (NEG/TRACE); Urobilinogen Urine 0.2 EU/dL (0.2-1.0)
[2024-07-19 10:34] LABS: Urine Microscopic Indicated YES
[2024-07-19 10:39] LABS: Alanine Aminotransferase 31 U/L (14-59); Albumin Globulin Ratio 0.3; Albumin Level 1.7 g/dL (3.4-5.0); Alkaline Phosphatase 407 U/L (46-116); Anion Gap 26.3; Aspartate Amino Transferase 35 U/L (15-37); BUN Creatinine Ratio 18.6; Bilirubin Total 0.5 mg/dL (0.2-1.0); Calcium 9.3 mg/dL (8.5-10.1); Carbon Dioxide 12.2 mmol/L (21.0-32.0); Chloride 94 mmol/L (98-107); Estimated GFR (African America 17 (>=60 mL/min/1.73m^2); Estimated GFR (Non-African Ame 14 (>=60 mL/min/1.73m^2); Globulin 5.7 g/dL; Glucose 274 mg/dL (74-106); Potassium 4.5 mmol/L (3.5-5.1); Sodium 128 mmol/L (136-145); Total Protein 7.4 g/dL (6.4-8.2)
[2024-07-19 10:42] LABS: Creatine Kinase 455 U/L (26-192)
[2024-07-19 10:46] LABS: Lactate/Lactic Acid 2.2 mmol/L (0.4-2.0)
[2024-07-19 10:47] LABS: Band Neutrophils Absolute 0.9 10^3/uL (0.0-0.3); Basophils Abs Manual 0.28 10^3/uL (0.00-0.10); Lymphocytes Absolute Manual 1.42 10^3/uL (1.20-3.80); Monocytes Absolute Manual 0.28 10^3/uL (0.30-0.80); Segmented Neut Absolute Manual 25.65 10^3/uL (1.4-6.5)
[2024-07-19] MEDS: VANCOMYCIN HCL 2,000 MG in 0.9 % SODIUM CHLORIDE 500 ML 250 MG IV (10:56)
[2024-07-19 11:16] LABS: Amorphous Sediment Urine FEW; Bacteria Urine MODERATE #/HPF (NONE SEEN); Cast Seen? NONE SEEN #/LPF (NONE SEEN); Crystals Seen? Seen #/HPF (None Seen); Mucus Urine NONE SEEN (NONE SEEN); Squamous Epithelial Cell Urine MODERATE #/LPF (NONE/RARE)
[2024-07-19 11:17] LABS: Urine Culture Indicated YES-FRMC
[2024-07-19] MEDS: ONDANSETRON 4 MG RAPDIS TABLET SL (13:21)
[2024-07-19] MEDS: HYDROMORPHONE HCL 1 MG/ML CARTRIDGE IM (13:21)
[2024-07-19] MEDS: IPRATROPIUM/ALBUTEROL SULFATE 3 ML AMPUL.NEB IH (13:26)
[2024-07-19] MEDS: LACTATED RINGER'S SOLUTION 1,000 ML 1000 ML IV ×2 (15:10→15:35)
[2024-07-19 16:04] LABS: Lactate/Lactic Acid 2.1 mmol/L (0.4-2.0)
[2024-07-19] MEDS: LACTATED RINGER'S SOLUTION 1,000 ML 150 ML IV (16:54)
--- NOTE | 2024-07-19 16:55 | PC.NURSE ---
[facility] arrives at this time for transport.
== END 2024-07-19 17:07 | disposition short-term general hospital (02) ==
PROVIDERS: Emergency Provider Emergency Medicine; PCP Nurse Practitioner
DX: A41.9 Sepsis, unspecified organism (principal); S31.829A Unspecified open wound of left buttock, initial encounter; E11.9 Type 2 diabetes mellitus without complications; Z79.4 Long term (current) use of insulin; Z79.84 Long term (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 of oral hypoglycemic drugs; E66.01 Morbid (severe) obesity due to excess calories; Z68.43 Body mass index [BMI] 50.0-59.9, adult; J44.9 Chronic obstructive pulmonary disease, unspecified; B36.9 Superficial mycosis, unspecified; F17.200 Nicotine dependence, unspecified, uncomplicated; Z88.0 Allergy status to penicillin; X58.XXXA Exposure to other specified factors, initial encounter; M54.89 Other dorsalgia
CPT/HCPCS: 36415; 36556; 51702; 72193; 80053; 81001; 82550; 82800; 83605; 85007; 85027; 87040; 87086; 94640; 96365; 96366; 96368; 96372; 96375; 99285; J0713; J1171; J2270; J2405; J3370; Q0162; Q9966

== ENCOUNTER 2024-09-24 15:08 | Outpatient (REF) | payer MEDICARE, SELFPAY ==
--- OUTSIDE RECORDS SUMMARY | 2024-09-24 15:11 | XMS_ITS | Encounter Summary ---
Author Organization [facility] Address [address] [place] [address] Care Team Providers Care Reconnaissance Man Name Role Phone Unavailable Primary Care Provider Unavailabl e Encounter Details Date Type Department Care Team (Late st Contact Info) Description 09/07/2024 Lab Requisition [facility] [address] [place] [id number] Rodolfo Maddox MD [address] [place], [place] [id number] Social History Tobacco Use Types Packs/Day Years Used Date Smoking Tobacco: Never Assessed Comments Unknown Sex and Gender Information Value Date Recorded Sex Assigned at Not on file Legal Sex Female 10:43 PM EDT Gender Identity Not on file Sexual Orientation Not on file documented as of this encounter Plan of Treatment Not on file documented as of this encounter Procedures Procedure Name Priority Date/Time Associated Diagnosis Comments CBC Routine 09/07/2024 4:27 AM EDT COMPREHENSIVE METABOLIC PANEL Routine 09/07/2024 4:27 AM EDT documented in this encounter Results * (ABNORMAL) CBC (09/07/2024 4:27 AM EDT) Auto WBC 9.61 4.00 - 10.60 10*3/uL 09/07/2024 5:31 AM EDT [facility] ([facility]) RBC 3.38(L) 3.80 - 5.00 10*6/uL 09/07/2024 5:31 AM EDT [facility] ([facility]) Hemoglobin 9.9(L) 12.0 - 15.0 g/dL 09/07/2024 5:31 AM EDT [facility] ([facility]) Hematocrit 30.7(L) 36.0 - 45.0 % 09/07/2024 5:31 AM EDT [facility] ([facility]) MCV 90.8 82.0 - 98.0 fL 09/07/2024 5:31 AM EDT [facility] ([facility]) MCH 29.3 27.0 - 33.0 pg 09/07/2024 5:31 AM EDT [facility] ([facility]) MCHC 32.2 32.0 - 35.0 g/dL 09/07/2024 5:31 AM EDT [facility] ([facility]) RDW 13.7 11.5 - 15.0 % 09/07/2024 5:31 AM EDT [facility] ([facility]) Platelets 490(H) 150 - 400 10*3/uL 09/07/2024 5:31 AM EDT [facility] ([facility]) Blood Venous blood specimen / Unknown 09/07/2024 4:27 AM EDT 09/07/2024 5:15 AM EDT us Rodolfo Maddox MD LAB BLOOD ORDERABLES Final Result [facility] ([facility]) [address] [place] [address] * (ABNORMAL) Comprehensive metabolic panel (09/07/2024 4:27 AM EDT) Sodium 140 136 - 145 mmol/L 09/07/2024 5:50 AM EDT [facility] ([facility]) Potassium 3.8 3.5 - 5.1 mmol/L 09/07/2024 5:50 AM EDT [facility] ([facility]) Chloride 103 98 - 107 mmol/L 09/07/2024 5:50 AM EDT [facility] ([facility]) CO2 32(H) 21 - 31 mmol/L 09/07/2024 5:50 AM EDT [facility] ([facility]) Anion Gap 9 7 - 20 mmol/L 09/07/2024 5:50 AM [facility] ([facility]) BUN 23 7 - 25 mg/dL 09/07/2024 5:50 AM [facility] ([facility]) Creatinine 0.89 0.60 - 1.20 mg/dL 09/07/2024 5:50 AM [facility] ([facility]) BUN/Creatinine Ratio 25.8 08/14 5:50 AM [facility] ([facility]) Glucose 95 70 - 100 mg/dL 09/07/2024 5:50 AM [facility] ([facility]) Calcium 8.4(L) 8.6 - 10.3 mg/dL 09/07/2024 5:50 AM [facility] ([facility]) AST 12(L) 13 - 39 U/L 09/07/2024 5:50 AM [facility] ([facility]) ALT (SGPT) 7 7 - 52 U/L 09/07/2024 5:50 AM [facility] ([facility]) Alkaline Phosphatase 107(H) 34 - 104 U/L 09/07/2024 5:50 AM [facility] ([facility]) Total Protein 5.9(L) 6.0 - 8.3 g/dL 09/07/2024 5:50 AM [facility] ([facility]) Albumin 2.5(L) 3.5 - 5.7 g/dL 09/07/2024 5:50 AM [facility] ([facility]) Total Bilirubin 0.3 0.3 - 1.0 mg/dL 09/07/2024 5:50 AM [facility] ([facility]) eGFR 73.3 >60.0 mL/min/1. 73m*2 09/07/2024 5:50 AM [facility] ([facility]) Comment:The [facility] s estimated glomerular filtration rate (eGFR) will no longer include consideration of race in its calculation. The [employer] s eGFR Task Force developed new recommendations for the estimation of the glomerular filtration rate in the [place] They recommend immediate implementation of the new equation refit without the race variable in all laboratories because the calculation does not include race. In addition to not including race in the calculation and reporting, it included diversity in its development, and has acceptable performance characteristics and potential consequences that do not disproportionately affect any one group of individuals. Blood Venous blood specimen / Unknown 09/07/2024 4:27 AM EDT 09/07/2024 5:15 AM EDT us Rodolfo Maddox MD LAB BLOOD ORDERABLES Final Result [facility] ([place]) [address] [place] [address] documented in this encounter Visit Diagnoses Not on filedocumented in this encounter
--- OUTSIDE RECORDS SUMMARY | 2024-09-24 15:11 | XMS_ITS | Encounter Summary ---
Author Organization [facility] Address [address] [place] [address] Care Team Providers Care Clinical Documentation Spec Name Role Phone Unavailable Primary Care Provider Unavailabl e Encounter Details Date Type Department Care Team (Late st Contact Info) Description 09/18/2024 Lab Requisition [facility] Lab [address] [place] [address] Rodolfo Maddox MD [address] [place] [id number] Social History Tobacco Use Types Packs/Day Years [...] Date/Time Associated Diagnosis Comments BASIC METABOLIC PANEL Routine 09/19/2024 3:25 AM EDT CBC Routine 09/19/2024 3:23 AM EDT documented in this encounter Results * (ABNORMAL) Basic metabolic panel (09/19/2024 3:25 AM EDT) Sodium 138 136 - 145 mmol/L 09/19/2024 4:50 AM EDT [facility] [email or web address]] LAB ([facility]) Potassium 4.1 3.5 - 5.1 mmol/L 09/19/2024 4:50 AM EDT [facility] [email or web address]] LAB ([facility]) Chloride 105 98 - 107 mmol/L 09/19/2024 4:50 AM EDT [facility] [email or web address]] LAB ([facility]) CO2 24 21 - 31 mmol/L 09/19/2024 4:50 AM EDT [facility] [email or web address]] LAB ([facility]) BUN 31(H) 7 - 25 mg/dL 09/19/2024 4:50 AM EDT [facility] [email or web address]] LAB ([facility]) Creatinine 1.52(H) 0.60 - 1.20 mg/dL 09/19/2024 4:50 AM EDT [facility] [email or web address]] LAB ([facility]) Glucose 110(H) 70 - 100 mg/dL 09/19/2024 4:50 AM EDT [facility] [email or web address]] LAB ([facility]) Calcium 8.9 8.6 - 10.3 mg/dL 09/19/2024 4:50 AM EDT [facility] [email or web address]] LAB ([facility]) Anion Gap 13 7 - 20 mmol/L 09/19/2024 4:50 AM EDT [facility] [email or web address]] LAB ([facility]) eGFR 38.5(L) >60.0 mL/min/1. 73m*2 09/19/2024 4:50 AM EDT [facility] [[email or web address]] LAB ([facility]) Comment:[facility] s estimated glomerular filtration rate (eGFR) will [...] disproportionately affect any one group of individuals. BUN/Creatinine Ratio 20.4 0808/2024 4:50 AM EDT [facility] [email or web address]] LAB ([facility]) Blood Venous blood specimen / Unknown 09/19/2024 3:25 AM EDT 09/19/2024 4:17 AM EDT us Rodolfo Maddox MD LAB BLOOD ORDERABLES Final Result [facility] [email or web address]] LAB ([facility]) [address] [place] [address] * (ABNORMAL) CBC (09/19/2024 3:23 AM EDT) Auto WBC 9.17 4.00 - 10.60 10*3/uL 09/19/2024 5:59 AM EDT [facility] [email or web address]] LAB ([facility]) RBC 3.26(L) 3.80 - 5.00 10*6/uL 09/19/2024 5:59 AM EDT [facility] [email or web address]] LAB ([facility]) Hemoglobin 9.6(L) 12.0 - 15.0 g/dL 09/19/2024 5:59 AM EDT [facility] [email or web address]] LAB ([facility]) Hematocrit 29.5(L) 36.0 - 45.0 % 09/19/2024 5:59 AM EDT [facility] [email or web address]] LAB ([facility]) MCV 90.5 82.0 - 98.0 fL 09/19/2024 5:59 AM EDT [facility] [email or web address]] LAB ([facility]) MCH 29.4 27.0 - 33.0 pg 09/19/2024 5:59 AM EDT [facility] [email or web address]] LAB ([facility]) MCHC 32.5 32.0 - 35.0 g/dL 09/19/2024 5:59 AM EDT [facility] [[email or web address]] LAB ([facility]) RDW 14.5 11.5 - 15.0 % 09/19/2024 5:59 AM EDT [facility] [[email or web address]] LAB ([facility]) Platelets 554(H) 150 - 400 10*3/uL 09/19/2024 5:59 AM EDT [facility] [[email or web address]] LAB ([facility]) Blood Venous blood specimen / Unknown Venipuncture / Unknown 09/19/2024 3:23 AM EDT 09/19/2024 4:27 AM EDT us Rodolfo Maddox MD LAB BLOOD ORDERABLES Final Result [facility] [[email or web address]] LAB ([facility]) [address] [place] [address] documented in this encounter Visit Diagnoses Not on filedocumented in this encounter
--- OUTSIDE RECORDS SUMMARY | 2024-09-24 15:11 | XMS_ITS | Encounter Summary ---
Author Organization [facility] Address [address] [place] [address] Care Team Providers Care Business Team Leader Name Role Phone Unavailable Primary Care Provider Unavailabl e Encounter Details Date Type Department Care Team (Late st Contact Info) Description 09/19/2024 Lab Requisition [facility] Lab [address] [place] [phone] Rodolfo Maddox MD [address] [place] [phone] Respiratory failure, unspecified, unspecified whether with hypoxia or hypercapnia (CMS/HCC) Social History Tobacco Use Types Packs/Day Years [...] Associated Diagnosis Comments BASIC METABOLIC PANEL Routine 09/20/2024 3:35 AM EDT Respiratory failure, unspecified, unspecified whether with hypoxia or hypercapnia (CMS/HCC) documented in this encounter Results * (ABNORMAL) Basic metabolic panel (09/20/2024 3:35 AM EDT) Sodium 135(L) 136 - 145 mmol/L 09/20/2024 7:00 AM EDT [facility] LAB ([facility]) Potassium 4.5 3.5 - 5.1 mmol/L 09/20/2024 7:00 AM EDT [facility] LAB ([facility]) Chloride 103 98 - 107 mmol/L 09/20/2024 7:00 AM T [facility] LAB ([facility]) CO2 20(L) 21 - 31 mmol/L 09/20/2024 7:00 AM T [facility] ([facility]) BUN 26(H) 7 - 25 mg/dL 09/20/2024 7:00 AM T [facility] ([facility]) Creatinine 1.26(H) 0.60 - 1.20 mg/dL 09/20/2024 7:00 AM T [facility] ([facility]) Glucose 136(H) 70 - 100 mg/dL 09/20/2024 7:00 AM T [facility] ([facility]) Calcium 9.3 8.6 - 10.3 mg/dL 09/20/2024 7:00 AM T [facility] ([facility]) Anion Gap 17 7 - 20 mmol/L 09/20/2024 7:00 AM [facility] LAB ([facility]) eGFR 48.3(L) >60.0 mL/min/1. 73m*2 09/20/2024 7:00 AM [facility] LAB ([facility]) Comment:[facility] s estimated glomerular filtration rate (eGFR) will [...] any one group of individuals. BUN/Creatinine Ratio 20.6 09/2024 7:00 AM T [facility] ([facility]) Blood Venous blood specimen / Unknown 09/20/2024 3:35 AM EDT 09/20/2024 5:03 AM EDT us Rodolfo Maddox MD LAB BLOOD ORDERABLES Final Result [facility] LAB ([facility]) [address] [place] [address] documented in this encounter Visit Diagnoses Diagnosis Respiratory failure, unspecified, unspecified whether with hypoxia or hypercapnia (CMS/HCC) documented in this encounter
--- OUTSIDE RECORDS SUMMARY | 2024-09-24 15:11 | XMS_ITS | Encounter Summary ---
Author Organization [facility] Address [address] [place] [address] Care Team Providers Care Project Management Manager Name Role Phone Unavailable Primary Care Provider Unavailabl e Encounter Details Date Type Department Care Team (Late st Contact Info) Description 09/12/2024 Lab Requisition [facility] Lab [address] [place] [phone] Rodolfo Maddox MD [address] [place] [id number] Social History Tobacco Use Types Packs/Day Years [...] Associated Diagnosis Comments BASIC METABOLIC PANEL Routine 09/13/2024 4:00 AM EDT CBC Routine 09/13/2024 3:50 AM EDT documented in this encounter Results * (ABNORMAL) Basic metabolic panel (09/13/2024 4:00 AM EDT) Sodium 137 136 - 145 mmol/L 09/13/2024 5:29 AM EDT [facility] LAB ([facility]) Potassium 4.3 3.5 - 5.1 mmol/L 09/13/2024 5:29 AM EDT [facility] LAB ([facility]) Chloride 102 98 - 107 mmol/L 09/13/2024 5:29 AM EDT [facility] ([facility]) CO2 27 21 - 31 mmol/L 09/13/2024 5:29 AM EDT [facility] ([facility]) BUN 25 7 - 25 mg/dL 09/13/2024 5:29 AM EDT [facility] ([facility]) Creatinine 1.05 0.60 - 1.20 mg/dL 09/13/2024 5:29 AM EDT [facility] ([facility]) Glucose 174(H) 70 - 100 mg/dL 09/13/2024 5:29 AM EDT [facility] ([facility]) Calcium 8.9 8.6 - 10.3 mg/dL 09/13/2024 5:29 AM EDT [facility] ([facility]) Anion Gap 12 7 - 20 mmol/L 09/13/2024 5:29 AM EDT [facility] ([facility]) eGFR 60.1 >60.0 mL/min/1. 73m*2 09/13/2024 5:29 AM EDT [facility] ([facility]) Comment:[facility] s estimated glomerular filtration rate (eGFR) will [...] any one group of individuals. BUN/Creatinine Ratio 23.8 08/0 02/2024 5:29 AM EDT [facility] ([facility]) Blood Venous blood specimen / Unknown Venipuncture / Unknown 09/13/2024 4:00 AM EDT 09/13/2024 4:51 AM EDT us Rodolfo Maddox MD LAB BLOOD ORDERABLES Final Result [facility] LAB [facility]) [address] [place] [address] * (ABNORMAL) CBC (09/13/2024 3:50 AM EDT) Auto WBC 10.32 4.00 - 10.60 10*3/uL 09/13/2024 5:25 AM EDT [facility] ([facility]) RBC 3.50(L) 3.80 - 5.00 10*6/uL 09/13/2024 5:25 AM EDT [facility] ([facility]) Hemoglobin 10.2(L) 12.0 - 15.0 g/dL 09/13/2024 5:25 AM EDT [facility] ([facility]) Hematocrit 31.7(L) 36.0 - 45.0 % 09/13/2024 5:25 AM EDT [facility] ([facility]) MCV 90.6 82.0 - 98.0 fL 09/13/2024 5:25 AM EDT [facility] ([facility]) MCH 29.1 27.0 - 33.0 pg 09/13/2024 5:25 AM EDT [facility] ([facility]) MCHC 32.2 32.0 - 35.0 g/dL 09/13/2024 5:25 AM EDT [facility] ([facility]) RDW 14.1 11.5 - 15.0 % 09/13/2024 5:25 AM EDT [facility] ([facility]) Platelets 540(H) 150 - 400 10*3/uL 09/13/2024 5:25 AM EDT [facility] ([facility]) Blood Venous blood specimen / Unknown Venipuncture / Unknown 09/13/2024 3:50 AM EDT 09/13/2024 4:49 AM EDT us Rodolfo Maddox MD LAB BLOOD ORDERABLES Final Result [facility] ([facility]) [address] [place], [place] [id number] documented in this encounter Visit Diagnoses Not on filedocumented in this encounter
--- OUTSIDE RECORDS SUMMARY | 2024-09-24 15:11 | XMS_ITS | Encounter Summary ---
Author Organization [facility] Address [address] [place] [address] Care Team Providers Care Heel Cover Softener Name Role Phone Unavailable Primary Care Provider Unavailabl e Encounter Details Date Type Department Care Team (Late st Contact Info) Description 08/22/2024 Lab Requisition [facility] Lab [address] [place] [address] Rodolfo Maddox MD [address] [place] [address] Social History Tobacco Use Types Packs/Day Years [...] Name Priority Date/Time Associated Diagnosis Comments CBC WITH AUTO DIFFERENTIAL Routine 08/23/2024 3:50 AM EDT CBC AND DIFFERENTIAL Routine 08/23/2024 3:50 AM EDT MAGNESIUM Routine 08/23/2024 3:50 AM EDT BASIC METABOLIC PANEL Routine 08/23/2024 3:50 AM EDT documented in this encounter Results * (ABNORMAL) CBC auto differential (08/23/2024 3:50 AM EDT) Auto WBC 11.08(H) 4.00 - 10.60 10*3/uL 08/23/2024 5:29 AM EDT [facility] LAB ([facility]) RBC 3.32(L) 3.80 - 5.00 10*6/uL 08/23/2024 5:29 AM EDT [facility] ([facility]) Hemoglobin 9.9(L) 12.0 - 15.0 g/dL 08/23/2024 5:29 AM EDT [facility] ([facility]) Hematocrit 31.7(L) 36.0 - 45.0 % 08/23/2024 5:29 AM EDT [facility] ([facility]) MCV 95.5 82.0 - 98.0 fL 08/23/2024 5:29 AM T [facility] ([facility]) MCH 29.8 27.0 - 33.0 pg 08/23/2024 5:29 AM [facility] ([facility]) MCHC 31.2(L) 32.0 - 35.0 g/dL 08/23/2024 5:29 AM [facility] ([facility]) RDW 14.9 11.5 - 15.0 % 08/23/2024 5:29 AM T [facility] ([facility]) Neutrophils % 65.5 40.0 - 72.0 % 08/23/2024 5:29 AM [facility] ([facility]) Lymphocytes % 22.3 20.0 - 45.0 % 08/23/2024 5:29 AM [facility] ([facility]) Monocytes % 9.7 5.0 - 12.0 % 08/23/2024 5:29 AM EDT [facility] ([facility]) Eosinophils % 1.6 0.0 - 6.0 % 08/23/2024 5:29 AM T [facility] ([facility]) Basophils % 0.5 0.0 - 1.0 % 08/23/2024 5:29 AM EDT [facility] ([facility]) Neutrophils Absolute 7.26 1.60 - 7.60 10*3/uL 08/23/2024 5:29 AM [facility] ([facility]) Lymphocytes Absolute 2.47 1.20 - 4.00 10*3/uL 08/23/2024 5:29 AM EDT [facility] ([facility]) Monocytes Absolute 1.07(H) 0.10 - 1.00 10*3/uL 08/23/2024 5:29 AM EDT [facility] ([facility]) Eosinophils Absolute 0.18 0.00 - 0.50 10*3/uL 08/23/2024 5:29 AM EDT [facility] ([facility]) Basophils Absolute 0.06 0.00 - 0.20 10*3/uL 08/23/2024 5:29 AM EDT [facility] ([facility]) Platelets 408(H) 150 - 400 10*3/uL 08/23/2024 5:29 AM EDT [facility] ([facility]) nRBC % 0.0 0 % 08/23/2024 5:29 AM EDT [facility] ([facility]) Immature Granulocytes % 0.4 0.0 - 1.0 % 08/23/2024 5:29 AM EDT [facility] ([facility]) Immature Granulocytes Absolute 0.04 0.00 - 0.20 10*3/uL 08/23/2024 5:29 AM EDT [facility] ([facility]) Blood Venous blood specimen / Unknown Venipuncture / Unknown 08/23/2024 3:50 AM EDT 08/23/2024 4:51 AM EDT us Rodolfo Maddox MD LAB BLOOD ORDERABLES Final Result [facility]) [address] [id number] * (ABNORMAL) Magnesium (08/23/2024 3:50 AM EDT) Magnesium 1.8(L) 1.9 - 2.7 mg/dL 08/23/2024 5:31 AM EDT [facility] ([facility]) Blood Venous blood specimen / Unknown Venipuncture / Unknown 08/23/2024 3:50 AM EDT 08/23/2024 4:47 AM EDT us Rodolfo Maddox MD LAB BLOOD ORDERABLES Final Result [facility] ([facility]) [address] [place] [address] * (ABNORMAL) Basic metabolic panel (08/23/2024 3:50 AM EDT) Sodium 141 136 - 145 mmol/L 08/23/2024 5:31 AM EDT [facility] ([facility]) Potassium 3.8 3.5 - 5.1 mmol/L 08/23/2024 5:31 AM EDT [facility] ([facility]) Chloride 103 98 - 107 mmol/L 08/23/2024 5:31 AM EDT [facility] ([facility]) CO2 32(H) 21 - 31 mmol/L 08/23/2024 5:31 AM EDT [facility] ([facility]) BUN 17 7 - 25 mg/dL 08/23/2024 5:31 AM EDT [facility] ([facility]) Creatinine 1.02 0.60 - 1.20 mg/dL 08/23/2024 5:31 AM EDT [facility] ([facility]) Glucose 148(H) 70 - 100 mg/dL 08/23/2024 5:31 AM EDT [facility] ([facility]) Calcium 7.9(L) 8.6 - 10.3 mg/dL 08/23/2024 5:31 AM EDT [facility] ([facility]) Anion Gap 10 7 - 20 mmol/L 08/23/2024 5:31 AM EDT [facility] ([facility]) eGFR 62.2 >60.0 mL/min/1. 73m*2 08/23/2024 5:31 AM EDT [facility] ([facility]) Comment:[facility] s estimated glomerular filtration rate (eGFR) [...] any one group of individuals. BUN/Creatinine Ratio 16.7 08/13 5:31 AM EDT [facility] ([facility]) Blood Venous blood specimen / Unknown Venipuncture / Unknown 08/23/2024 3:50 AM EDT 08/23/2024 4:47 AM EDT us Rodolfo Maddox MD LAB BLOOD ORDERABLES Final Result [facility] ([facility]) [address] [place], [place] [id number] documented in this encounter Visit Diagnoses Not on filedocumented in this encounter
--- OUTSIDE RECORDS SUMMARY | 2024-09-24 15:11 | XMS_ITS | Encounter Summary ---
Author Organization [facility] Address [address] [place] [address] Care Team Providers Care Ore Tester Name Role Phone Unavailable Primary Care Provider Unavailabl e Encounter Details Date Type Department Care Team (Late st Contact Info) Description 08/25/2024 Lab Requisition [facility] Lab [address] [place] [address] Rodolfo Maddox MD [facility] [place] [address] Social History Tobacco Use Types Packs/Day Years [...] Diagnosis Comments CBC WITH AUTO DIFFERENTIAL Routine 08/26/2024 3:45 AM EDT CBC AND DIFFERENTIAL Routine 08/26/2024 3:45 AM EDT MAGNESIUM Routine 08/26/2024 3:45 AM EDT BASIC METABOLIC PANEL Routine 08/26/2024 3:45 AM EDT documented in this encounter Results * (ABNORMAL) CBC auto differential (08/26/2024 3:45 AM EDT) Auto WBC 7.85 4.00 - 10.60 10*3/uL 08/26/2024 6:03 AM T [facility] ([facility]) RBC 3.50(L) 3.80 - 5.00 10*6/uL [facility]) Hemoglobin 10.4(L) 12.0 - 15.0 g/dL 08/26/2024 6:03 AM [facility] ([facility]) Hematocrit 33.8(L) 36.0 - 45.0 % 08/26/2024 6:03 AM T [facility] ([facility]) MCV 96.6 82.0 - 98.0 fL 08/26/2024 6:03 AM [facility] ([facility]) MCH 29.7 27.0 - 33.0 pg 08/26/2024 6:03 AM [facility] ([facility]) MCHC 30.8(L) 32.0 - 35.0 g/dL 08/26/2024 6:03 AM [facility] ([facility]) RDW 14.6 11.5 - 15.0 % 08/26/2024 6:03 AM [facility] ([facility]) Neutrophils % 62.8 40.0 - 72.0 % 08/26/2024 6:03 AM [facility] ([facility]) Lymphocytes % 21.9 20.0 - 45.0 % 08/26/2024 6:03 AM [facility] ([facility]) Monocytes % 10.7 5.0 - 12.0 % 08/26/2024 6:03 AM [facility] ([facility]) Eosinophils % 3.4 0.0 - 6.0 % 08/26/2024 6:03 AM [facility] ([facility]) Basophils % 0.9 0.0 - 1.0 % 08/26/2024 6:03 AM [facility] ([facility]) Neutrophils Absolute 4.93 1.60 - 7.60 10*3/uL 08/26/2024 6:03 AM [facility] ([facility]) Lymphocytes Absolute 1.72 1.20 - 4.00 10*3/uL 08/26/2024 6:03 AM [facility] ([facility]) Monocytes Absolute 0.84 0.10 - 1.00 10*3/uL 08/26/2024 6:03 AM EDT [facility] ([facility]) Eosinophils Absolute 0.27 0.00 - 0.50 10*3/uL 08/26/2024 6:03 AM EDT [facility] ([facility]) Basophils Absolute 0.07 0.00 - 0.20 10*3/uL 08/26/2024 6:03 AM EDT [facility] ([facility]) Platelets 395 150 - 400 10*3/uL 08/26/2024 6:03 AM EDT [facility] ([facility]) nRBC % 0.0 0 % 08/26/2024 6:03 AM EDT [facility] ([facility]) Immature Granulocytes % 0.3 0.0 - 1.0 % 08/26/2024 6:03 AM EDT [facility] ([facility]) Immature Granulocytes Absolute 0.02 0.00 - 0.20 10*3/uL 08/26/2024 6:03 AM EDT [facility] ([facility]) Blood Venous blood specimen / Unknown Venipuncture / Unknown 08/26/2024 3:45 AM EDT 08/26/2024 5:49 AM EDT us Rodolfo Maddox MD LAB BLOOD ORDERABLES Final Result [facility]) [address] [place] [address] * Magnesium (08/26/2024 3:45 AM EDT) Magnesium 2.0 1.9 - 2.7 mg/dL 08/26/2024 6:35 AM EDT [facility] [place] Blood Venous blood specimen / Unknown Venipuncture / Unknown 08/26/2024 3:45 AM EDT 08/26/2024 5:49 AM EDT Rodolfo Maddox MD LAB BLOOD ORDERABLES Final Result [facility] ([facility]) [address] [place] [address] * (ABNORMAL) Basic metabolic panel (08/26/2024 3:45 AM EDT) Sodium 137 136 - 145 mmol/L 08/26/2024 6:35 AM EDT [facility] ([facility]) Potassium 4.0 3.5 - 5.1 mmol/L 08/26/2024 6:35 AM EDT [facility] ([facility]) Chloride 99 98 - 107 mmol/L 08/26/2024 6:35 AM EDT [facility] ([facility]) CO2 31 21 - 31 mmol/L 08/26/2024 6:35 AM EDT [facility] ([facility]) BUN 20 7 - 25 mg/dL 08/26/2024 6:35 AM EDT [facility] ([facility]) Creatinine 0.78 0.60 - 1.20 mg/dL 08/26/2024 6:35 AM EDT [facility] ([facility]) Glucose 188(H) 70 - 100 mg/dL 08/26/2024 6:35 AM EDT [facility] ([facility]) Calcium 8.4(L) 8.6 - 10.3 mg/dL 08/26/2024 6:35 AM EDT [facility] ([facility]) Anion Gap 11 7 - 20 mmol/L 08/26/2024 6:35 AM EDT [facility] ([facility]) eGFR 85.8 >60.0 mL/min/1. 73m*2 08/26/2024 6:35 AM EDT [facility] ([facility]) Comment:[facility] s estimated glomerular [...] any one group of individuals. BUN/Creatinine Ratio 25.6 08/13 6:35 AM EDT [facility] ([facility]) Blood Venous blood specimen / Unknown Venipuncture / Unknown 08/26/2024 3:45 AM EDT 08/26/2024 5:49 AM EDT us Rodolfo Maddox MD LAB BLOOD ORDERABLES Final Result [facility] ([facility]) [address] [place], [place] [id number] documented in this encounter Visit Diagnoses Not on filedocumented in this encounter
--- OUTSIDE RECORDS SUMMARY | 2024-09-24 15:11 | XMS_ITS | Encounter Summary ---
Author Organization [facility] Address [address] [place] [address] Care Team Providers Care Landscape Architecture Professor Name Role Phone Unavailable Primary Care Provider Unavailabl e Encounter Details Date Type Department Care Team (Late st Contact Info) Description 08/23/2024 Lab Requisition [facility] [address] [place] [address] Rodolfo Maddox MD [facility] [place] [address] Social History Tobacco Use Types Packs/Day Years [...] Diagnosis Comments CBC WITH AUTO DIFFERENTIAL Routine 08/24/2024 4:49 AM EDT CBC AND DIFFERENTIAL Routine 08/24/2024 4:49 AM EDT MAGNESIUM Routine 08/24/2024 4:49 AM EDT COMPREHENSIVE METABOLIC PANEL Routine 08/24/2024 4:49 AM EDT documented in this encounter Results * (ABNORMAL) CBC auto differential (08/24/2024 4:49 AM EDT) Auto WBC 10.58 4.00 - 10.60 10*3/uL 08/24/2024 6:06 AM [facility] ([facility]) RBC 3.45(L) 3.80 - 5.00 10*6/uL 08/24/2024 6:06 AM [facility] ([facility]) Hemoglobin 10.3(L) 12.0 - 15.0 g/dL 08/24/2024 6:06 AM [facility] ([facility]) Hematocrit 33.2(L) 36.0 - 45.0 % 08/24/2024 6:06 AM [facility] ([facility]) MCV 96.2 82.0 - 98.0 fL 08/24/2024 6:06 AM [facility] ([facility]) MCH 29.9 27.0 - 33.0 pg 08/24/2024 6:06 AM [facility] ([facility]) MCHC 31.0(L) 32.0 - 35.0 g/dL 08/24/2024 6:06 AM [facility] ([facility]) RDW 14.9 11.5 - 15.0 % 08/24/2024 6:06 AM [facility] ([facility]) Neutrophils % 67.7 40.0 - 72.0 % 08/24/2024 6:06 AM [facility] ([facility]) Lymphocytes % 19.8(L) 20.0 - 45.0 % 08/24/2024 6:06 AM [facility] ([facility]) Monocytes % 9.4 5.0 - 12.0 % 08/24/2024 6:06 AM [facility] ([facility]) Eosinophils % 2.0 0.0 - 6.0 % 08/24/2024 6:06 AM [facility] ([facility]) Basophils % 0.7 0.0 - 1.0 % 08/24/2024 6:06 AM [facility] ([facility]) Neutrophils Absolute 7.17 1.60 - 7.60 10*3/uL 08/24/2024 6:06 AM [facility] ([facility]) Lymphocytes Absolute 2.10 1.20 - 4.00 10*3/uL 08/24/2024 6:06 AM [facility] ([facility]) Monocytes Absolute 0.99 0.10 - 1.00 10*3/uL 08/24/2024 6:06 AM EDT [facility] ([facility]) Eosinophils Absolute 0.21 0.00 - 0.50 10*3/uL 08/24/2024 6:06 AM EDT [facility] ([facility]) Basophils Absolute 0.07 0.00 - 0.20 10*3/uL 08/24/2024 6:06 AM EDT [facility] ([facility]) Platelets 432(H) 150 - 400 10*3/uL 08/24/2024 6:06 AM EDT [facility] ([facility]) nRBC % 0.0 0 % 08/24/2024 6:06 AM EDT [facility]) Immature Granulocytes % 0.4 0.0 - 1.0 % 08/24/2024 6:06 AM EDT [facility] ([facility]) Immature Granulocytes Absolute 0.04 0.00 - 0.20 10*3/uL 08/24/2024 6:06 AM EDT [facility] ([facility]) Blood Venous blood specimen / Unknown Venipuncture / Unknown 08/24/2024 4:49 AM EDT 08/24/2024 5:52 AM EDT us Rodolfo Maddox MD LAB BLOOD ORDERABLES Final Result [facility]) [address] [id number] * Magnesium (08/24/2024 4:49 AM EDT) Magnesium 2.3 1.9 - 2.7 mg/dL 08/24/2024 6:34 AM EDT [facility] ([facility]) Blood Venous blood specimen / Unknown Venipuncture / Unknown 08/24/2024 4:49 AM EDT 08/24/2024 5:52 AM EDT us Rodolfo Maddox MD LAB BLOOD ORDERABLES Final Result [facility] ([facility]) [address] [place] [address] * (ABNORMAL) Comprehensive metabolic panel (08/24/2024 4:49 AM EDT) Sodium 139 136 - 145 mmol/L 08/24/2024 6:34 AM EDT [facility] ([facility]) Potassium 3.7 3.5 - 5.1 mmol/L 08/24/2024 6:34 AM EDT [facility] ([facility]) Chloride 100 98 - 107 mmol/L 08/24/2024 6:34 AM EDT [facility] ([facility]) CO2 32(H) 21 - 31 mmol/L 08/24/2024 6:34 AM EDT [facility] ([facility]) Anion Gap 11 7 - 20 mmol/L 08/24/2024 6:34 AM EDT [facility] ([facility]) BUN 15 7 - 25 mg/dL 08/24/2024 6:34 AM EDT [facility] ([facility]) Creatinine 0.76 0.60 - 1.20 mg/dL 08/24/2024 6:34 AM EDT [facility] ([facility]) BUN/Creatinine Ratio 19.7 08/13 6:34 AM EDT [facility] ([facility]) Glucose 180(H) 70 - 100 mg/dL 08/24/2024 6:34 AM EDT [facility] ([facility]) Calcium 8.1(L) 8.6 - 10.3 mg/dL 08/24/2024 6:34 AM EDT [facility] ([facility]) AST 11(L) 13 - 39 U/L 08/24/2024 6:34 AM EDT [facility] ([facility]) ALT (SGPT) 4(L) 7 - 52 U/L 08/24/2024 6:34 AM EDT [facility] ([facility]) Alkaline Phosphatase 130(H) 34 - 104 U/L 08/24/2024 6:34 AM EDT [facility] ([facility]) Total Protein 6.0 6.0 - 8.3 g/dL 08/24/2024 6:34 AM EDT [facility] ([facility]) Albumin 2.5(L) 3.5 - 5.7 g/dL 08/24/2024 6:34 AM EDT [facility] ([facility]) Total Bilirubin 0.4 0.3 - 1.0 mg/dL 08/24/2024 6:34 AM EDT [facility] ([facility]) eGFR 88.5 >60.0 mL/min/1. 73m*2 08/24/2024 6:34 AM EDT [facility] ([facility]) Comment:[facility] s estimated glomerular filtration rate [...] individuals. Blood Venous blood specimen / Unknown Venipuncture / Unknown 08/24/2024 4:49 AM EDT 08/24/2024 5:52 AM EDT us Rodolfo Maddox MD LAB BLOOD ORDERABLES Final Result [facility] ([facility]) [address] [place] [address] documented in this encounter Visit Diagnoses Not on filedocumented in this encounter
--- OUTSIDE RECORDS SUMMARY | 2024-09-24 15:11 | XMS_ITS | Encounter Summary ---
Author Organization [facility] Address [address] [place] [address] Care Team Providers Care Food And Beverage Outlets Manager Name Role Phone Unavailable Primary Care Provider Unavailabl e Encounter Details Date Type Department Care Team (Late st Contact Info) Description 09/03/2024 Lab Requisition [facility] [address] [place] [address] Rodolfo Maddox MD [address] [place] [id number] Social History Tobacco Use Types Packs/Day Years [...] Associated Diagnosis Comments BASIC METABOLIC PANEL Routine 09/04/2024 5:00 AM EDT CBC Routine 09/04/2024 4:15 AM EDT documented in this encounter Results * (ABNORMAL) Basic metabolic panel (09/04/2024 5:00 AM EDT) Sodium 136 136 - 145 mmol/L 09/04/2024 5:56 AM EDT [facility] ([facility]) Potassium 4.2 3.5 - 5.1 mmol/L 09/04/2024 5:56 AM EDT [facility] ([facility]) Chloride 99 98 - 107 mmol/L 09/04/2024 5:56 AM EDT [facility] ([facility]) CO2 30 21 - 31 mmol/L 09/04/2024 5:56 AM EDT [facility] ([facility]) BUN 32(H) 7 - 25 mg/dL 09/04/2024 5:56 AM EDT [facility] ([facility]) Creatinine 0.99 0.60 - 1.20 mg/dL 09/04/2024 5:56 AM EDT [facility] ([facility]) Glucose 157(H) 70 - 100 mg/dL 09/04/2024 5:56 AM EDT [facility] ([facility]) Calcium 8.4(L) 8.6 - 10.3 mg/dL 09/04/2024 5:56 AM EDT [facility] ([facility]) Anion Gap 11 7 - 20 mmol/L 09/04/2024 5:56 AM EDT [facility] ([facility]) eGFR 64.5 >60.0 mL/min/1. 73m*2 09/04/2024 5:56 AM EDT [facility] ([facility]) Comment:[facility] s estimated glomerular filtration rate (eGFR) [...] any one group of individuals. BUN/Creatinine Ratio 32.3 08/14 5:56 AM EDT [facility] ([facility]) Blood Venous blood specimen / Unknown 09/04/2024 5:00 AM EDT 09/04/2024 5:07 AM EDT us Rodolfo Maddox MD LAB BLOOD ORDERABLES Final Result [facility]) [address] [place] [address] * (ABNORMAL) CBC (09/04/2024 4:15 AM EDT) Auto WBC 9.23 4.00 - 10.60 10*3/uL 09/04/2024 5:54 AM EDT [facility] ([facility]) RBC 3.74(L) 3.80 - 5.00 10*6/uL 09/04/2024 5:54 AM EDT [facility] ([facility]) Hemoglobin 11.0(L) 12.0 - 15.0 g/dL 09/04/2024 5:54 AM EDT [facility] ([facility]) Hematocrit 34.5(L) 36.0 - 45.0 % 09/04/2024 5:54 AM EDT [facility] ([facility]) MCV 92.2 82.0 - 98.0 fL 09/04/2024 5:54 AM EDT [facility] ([facility]) MCH 29.4 27.0 - 33.0 pg 09/04/2024 5:54 AM EDT [facility] ([facility]) MCHC 31.9(L) 32.0 - 35.0 g/dL 09/04/2024 5:54 AM EDT [facility] ([facility]) RDW 13.9 11.5 - 15.0 % 09/04/2024 5:54 AM EDT [facility] ([facility]) Platelets 516(H) 150 - 400 10*3/uL 09/04/2024 5:54 AM EDT [facility] ([facility]) Blood Venous blood specimen / Unknown 09/04/2024 4:15 AM EDT 09/04/2024 5:05 AM EDT us Rodolfo Maddox MD LAB BLOOD ORDERABLES Final Result [facility] ([facility]) [address] [place] [address] documented in this encounter Visit Diagnoses Not on filedocumented in this encounter
--- OUTSIDE RECORDS SUMMARY | 2024-09-24 15:11 | XMS_ITS | Encounter Summary ---
Author Organization [facility] Address [address] [place] [address] Care Team Providers Care Lens Marker Name Role Phone Unavailable Primary Care Provider Unavailabl e Encounter Details Date Type Department Care Team (Late st Contact Info) Description 09/15/2024 Lab Requisition [facility] [address] [place] [id number] Rodolfo Maddox MD [address] [place], [place] [id number] Social History Tobacco Use Types Packs/Day Years [...] Priority Date/Time Associated Diagnosis Comments CBC Routine 09/15/2024 3:31 AM EDT COMPREHENSIVE METABOLIC PANEL Routine 09/15/2024 3:31 AM EDT documented in this encounter Results * (ABNORMAL) CBC (09/15/2024 3:31 AM EDT) Auto WBC 10.14 4.00 - 10.60 10*3/uL 09/15/2024 4:37 AM EDT [facility] ([facility]) RBC 3.37(L) 3.80 - 5.00 10*6/uL 09/15/2024 4:37 AM EDT [facility] ([facility]) Hemoglobin 10.0(L) 12.0 - 15.0 g/dL 09/15/2024 4:37 AM EDT [facility] ([facility]) Hematocrit 30.4(L) 36.0 - 45.0 % 09/15/2024 4:37 AM EDT [facility] ([facility]) MCV 90.2 82.0 - 98.0 fL 09/15/2024 4:37 AM EDT [facility] ([facility]) MCH 29.7 27.0 - 33.0 pg 09/15/2024 4:37 AM EDT [facility] ([facility]) MCHC 32.9 32.0 - 35.0 g/dL 09/15/2024 4:37 AM EDT [facility] ([facility]) RDW 14.1 11.5 - 15.0 % 09/15/2024 4:37 AM EDT [facility] ([facility]) Platelets 534(H) 150 - 400 10*3/uL 09/15/2024 4:37 AM EDT [facility] ([facility]) Blood Venous blood specimen / Unknown Venipuncture / Unknown 09/15/2024 3:31 AM EDT 09/15/2024 4:09 AM EDT us Rodolfo Maddox MD LAB BLOOD ORDERABLES Final Result [facility] ([facility]) [address] [place] [address] * (ABNORMAL) Comprehensive metabolic panel (09/15/2024 3:31 AM EDT) Sodium 136 136 - 145 mmol/L 09/15/2024 4:47 AM EDT [facility] ([facility]) Potassium 4.0 3.5 - 5.1 mmol/L 09/15/2024 4:47 AM EDT [facility] ([facility]) Chloride 102 98 - 107 mmol/L 09/15/2024 4:47 AM EDT [facility] ([facility]) CO2 28 21 - 31 mmol/L [facility]24 [facility] Anion Gap 10 7 - 20 mmol/L 09/15/2024 4:47 AM [facility] ([facility]) BUN 25 7 - 25 mg/dL 09/15/2024 4:47 AM [facility] ([facility]) Creatinine 1.01 0.60 - 1.20 mg/dL 09/15/2024 4:47 AM [facility] ([facility]) BUN/Creatinine Ratio 24.8 04/2024 4:47 AM [facility] ([facility]) Glucose 174(H) 70 - 100 mg/dL 09/15/2024 4:47 AM [facility] ([facility]) Calcium 8.9 8.6 - 10.3 mg/dL 09/15/2024 4:47 AM [facility] ([facility]) AST 11(L) 13 - 39 U/L 09/15/2024 4:47 AM [facility] ([facility]) ALT (SGPT) 10 7 - 52 U/L 09/15/2024 4:47 AM [facility] ([facility]) Alkaline Phosphatase 107(H) 34 - 104 U/L 09/15/2024 4:47 AM [facility] ([facility]) Total Protein 6.4 6.0 - 8.3 g/dL 09/15/2024 4:47 AM [facility] ([facility]) Albumin 2.8(L) 3.5 - 5.7 g/dL 09/15/2024 4:47 AM [facility] ([facility]) Total Bilirubin 0.4 0.3 - 1.0 mg/dL 09/15/2024 4:47 AM [facility] ([facility]) eGFR 62.9 >60.0 mL/min/1. 73m*2 09/15/2024 4:47 AM [facility] ([facility]) Comment:[facility] s estimated glomerular filtration rate (eGFR) [...] blood specimen / Unknown Venipuncture / Unknown 09/15/2024 3:31 AM EDT 09/15/2024 4:09 AM EDT us Rodolfo Maddox MD LAB BLOOD ORDERABLES Final Result [facility] ([facility]) [address] [place], [place] [id number] documented in this encounter Visit Diagnoses Not on filedocumented in this encounter
--- OUTSIDE RECORDS SUMMARY | 2024-09-24 15:11 | XMS_ITS | Encounter Summary ---
Author Organization [facility] Address [address] [place] [address] Care Team Providers Care Emissions Inspector Name Role Phone Unavailable Primary Care Provider Unavailabl e Encounter Details Date Type Department Care Team (Late st Contact Info) Description 09/02/2024 Lab Requisition [facility] [address] [phone] Rodolfo Maddox MD [address] [place] [id number] Social History Tobacco Use Types Packs/Day Years [...] Procedure Name Priority Date/Time Associated Diagnosis Comments LACTIC ACID, PLASMA Routine 09/03/2024 5 :21 AM EDT PROCALCITONIN TEST Routine 09/03/2024 4: 00 AM EDT BLOOD CULTURE Routine 09/03/2024 4:00 AM EDT documented in this encounter Results * (ABNORMAL) Lactic acid, plasma (09/03/2024 5:21 AM EDT) Lactate 2.3(H) 0.5 - 2.2 mmol/L 09/03/2024 6:03 AM EDT [facility] ([facility]) Blood Venous blood specimen / Unknown Venipuncture / Unknown 09/03/2024 5:21 AM EDT 09/03/2024 5:21 AM EDT us Rodolfo Maddox MD LAB BLOOD ORDERABLES Final Result [facility] ([facility]) [address] [place] [address] * (ABNORMAL) Procalcitonin Test (09/03/2024 4:00 AM EDT) Procalcitonin 0.16(H) 0.00 - 0.10 ng/mL 09/03/2024 10:36 AM EDT [facility] ([facility]) Comment: Suspected Lower Respiratory Tract Infection: 0.1-0.25 ng/mL - Low likelihood for bacterial infection;Antibiotics discouraged.* >0.25 ng/mL - Increased likelihood bacterial infection;Antibiotics encouraged. Suspected Sepsis: Strongly consider initiating antibiotics in all unstable patients. 0.1-0.5 ng/mL - Low likelihood for sepsis; Antibiotics discouraged.* >0.5 ng/mL - Increased likelihood sepsis; Antibiotics encouraged. >2.0 ng/mL - High risk of sepsis/septic shock; Antibiotics strongly encouraged. *Recommend retesting PCT within 6-12 hours if clinically indicated and initial PCT<0.5ng/mL Blood Venous blood specimen / Unknown Venipuncture / Unknown 09/03/2024 4:00 AM EDT 09/03/2024 5:24 AM EDT us Rodolfo Maddox MD LAB BLOOD ORDERABLES Final Result [facility] ([facility]) [address] [place], [place] [id number] * Blood culture (09/03/2024 4:00 AM EDT) Blood Culture No growth at 5 days JOSE 09/08/2024 6:01 AM EDT [facility] ([facility]) Blood Venous blood specimen / Unknown Venipuncture / Unknown 09/03/2024 4:00 AM EDT 09/03/2024 5:24 AM EDT us Rodolfo Maddox MD LAB MICROBIOLOGY - GENERAL ORDERABLES Final Result Performing Organization Address City/[facility]/ZIP Co de Phone Number [facility] ([facility]) [address] [place] [address] documented in this encounter Visit Diagnoses Not on filedocumented in this encounter
--- OUTSIDE RECORDS SUMMARY | 2024-09-24 15:11 | XMS_ITS | Encounter Summary ---
Author Organization [facility] Address [address] [place] [address] Care Team Providers Care Funeral Car Driver Name Role Phone Unavailable Primary Care Provider Unavailabl e Encounter Details Date Type Department Care Team (Late st Contact Info) Description 09/01/2024 Lab Requisition [facility] [address] [place] [phone] Rodolfo Maddox MD [facility] [place][note 2][address] [place] [address] Social History Tobacco Use Types Packs/Day Years [...] Diagnosis Comments CBC WITH AUTO DIFFERENTIAL Routine 09/02/2024 3:27 AM EDT CBC AND DIFFERENTIAL Routine 09/02/2024 3:27 AM EDT PHOSPHORUS Routine 09/02/2024 3:27 AM EDT MAGNESIUM Routine 09/02/2024 3:27 AM EDT BASIC METABOLIC PANEL Routine 09/02/2024 3:27 AM EDT documented in this encounter Results * (ABNORMAL) CBC auto differential (09/02/2024 3:27 AM EDT) Auto WBC 8.72 4.00 - 10.60 10*3/uL 09/02/2024 5:48 AM EDT [facility] ([facility] RBC 3.51(L) 3.80 - 5.00 10*6/uL 09/02/2024 5:48 AM EDT [facility] ([facility] Hemoglobin 10.4(L) 12.0 - 15.0 g/dL 09/02/2024 5:48 AM EDT [facility] ([facility] Hematocrit 33.4(L) 36.0 - 45.0 % 09/02/2024 5:48 AM EDT [facility] ([facility])) MCV 95.2 82.0 - 98.0 fL 09/02/2024 5:48 AM EDT [facility] ([facility])) MCH 29.6 27.0 - 33.0 pg 09/02/2024 5:48 AM EDT [facility] ([facility])) MCHC 31.1(L) 32.0 - 35.0 g/dL 09/02/2024 5:48 AM EDT [facility] ([facility] RDW 13.8 11.5 - 15.0 % 09/02/2024 5:48 AM EDT [facility] ([facility])) Neutrophils % 51.9 40.0 - 72.0 % 09/02/2024 5:48 AM EDT [facility] ([facility])) Lymphocytes % 32.6 20.0 - 45.0 % 09/02/2024 5:48 AM EDT [facility] ([facility])) Monocytes % 9.3 5.0 - 12.0 % 09/02/2024 5:48 AM EDT [facility] ([facility])) Eosinophils % 4.5 0.0 - 6.0 % 09/02/2024 5:48 AM EDT [facility] ([facility])) Basophils % 1.1(H) 0.0 - 1.0 % 09/02/2024 5:48 AM EDT [facility] ([facility])) Neutrophils Absolute 4.53 1.60 - 7.60 10*3/uL 09/02/2024 5:48 AM EDT [facility] ([facility])) Lymphocytes Absolute 2.84 1.20 - 4.00 10*3/uL 09/02/2024 5:48 AM EDT [facility] ([facility])) Monocytes Absolute 0.81 0.10 - 1.00 10*3/uL 09/02/2024 5:48 AM EDT [facility] ([facility])) Eosinophils Absolute 0.39 0.00 - 0.50 10*3/uL 09/02/2024 5:48 AM EDT [facility] ([facility])) Basophils Absolute 0.10 0.00 - 0.20 10*3/uL 09/02/2024 5:48 AM EDT [facility] ([facility])) Platelets 544(H) 150 - 400 10*3/uL 09/02/2024 5:48 AM EDT [facility] ([facility])) nRBC % 0.2(H) 0 % 09/02/2024 5:48 AM EDT [facility] ([facility])) Immature Granulocytes % 0.6 0.0 - 1.0 % 09/02/2024 5:48 AM EDT [facility] ([facility])) Immature Granulocytes Absolute 0.05 0.00 - 0.20 10*3/uL 09/02/2024 5:48 AM EDT [facility] ([facility])) Blood Venous blood specimen / Unknown Venipuncture / Unknown 09/02/2024 3:27 AM EDT 09/02/2024 5:13 AM EDT us Rodolfo Maddox MD LAB BLOOD ORDERABLES Final Result [facility] ([facility] [address] [place] [address] * Phosphorus (09/02/2024 3:27 AM EDT) Phosphorus 3.4 2.5 - 5.0 mg/dL 09/02/2024 6:09 AM EDT [facility] ([facility] Blood Venous blood specimen / Unknown Venipuncture / Unknown 09/02/2024 3:27 AM EDT 09/02/2024 5:14 AM EDT us Rodolfo Maddox MD LAB BLOOD ORDERABLES Final Result [facility]) [address] [place] [address] * Magnesium (09/02/2024 3:27 AM EDT) Magnesium 2.1 1.9 - 2.7 mg/dL 09/02/2024 6:09 AM EDT [facility] ([facility] Blood Venous blood specimen / Unknown Venipuncture / Unknown 09/02/2024 3:27 AM EDT 09/02/2024 5:14 AM EDT us Rodolfo Maddox MD LAB BLOOD ORDERABLES Final Result Performing Organization Address [facility] de Phone Number [facility]) [address] [place] [address] * (ABNORMAL) Basic metabolic panel (09/02/2024 3:27 AM EDT) Sodium 136 136 - 145 mmol/L 09/02/2024 6:09 AM EDT [facility] ([facility])) Potassium 4.6 3.5 - 5.1 mmol/L 09/02/2024 6:09 AM EDT [facility] ([facility] Chloride 100 98 - 107 mmol/L 09/02/2024 6:09 AM EDT [facility] ([facility])) CO2 28 21 - 31 mmol/L 09/02/2024 6:09 AM EDT [facility] ([facility])) BUN 33(H) 7 - 25 mg/dL 09/02/2024 6:09 AM EDT [facility] ([facility])) Creatinine 1.03 0.60 - 1.20 mg/dL 09/02/2024 6:09 AM EDT [facility] ([facility])) Glucose 152(H) 70 - 100 mg/dL 09/02/2024 6:09 AM EDT [facility] ([facility])) Calcium 8.5(L) 8.6 - 10.3 mg/dL 09/02/2024 6:09 AM EDT [facility] ([facility]) Anion Gap 13 7 - 20 mmol/L 09/02/2024 6:09 AM EDT [facility] ([facility] eGFR 61.5 >60.0 mL/min/1. 73m*2 09/02/2024 6:09 AM EDT [facility] ([facility]) Comment:[facility] s estimated glomerular filtration rate (eGFR) will [...] any one group of individuals. BUN/Creatinine Ratio 32.0 08/14 6:09 AM EDT [facility] ([facility]) Blood Venous blood specimen / Unknown Venipuncture / Unknown 09/02/2024 3:27 AM EDT 09/02/2024 5:14 AM EDT us Rodolfo Maddox MD LAB BLOOD ORDERABLES Final Result [facility] ([place]) [address] [place] [address] documented in this encounter Visit Diagnoses Not on filedocumented in this encounter
--- OUTSIDE RECORDS SUMMARY | 2024-09-24 15:11 | XMS_ITS | Encounter Summary ---
Author Organization [facility] Address [address] [place] [address] Care Team Providers Care Toy Designer Name Role Phone Unavailable Primary Care Provider Unavailabl e Encounter Details Date Type Department Care Team (Late st Contact Info) Description 09/09/2024 Lab Requisition [facility] [address] [place] [phone] Rodolfo Maddox MD [address] [place] [address] Social History Tobacco Use Types Packs/Day Years [...] Procedure Name Priority Date/Time Associated Diagnosis Comments COMPREHENSIVE METABOLIC PANEL Routine 09/10/2024 4:30 AM EDT CBC WITH AUTO DIFFERENTIAL Routine 09/10/2024 3:35 AM EDT CBC AND DIFFERENTIAL Routine 09/10/2024 3:35 AM EDT documented in this encounter Results * (ABNORMAL) Comprehensive metabolic panel (09/10/2024 4:30 AM EDT) Sodium 139 136 - 145 mmol/L 09/10/2024 5:56 AM EDT [facility] ([facility]) Potassium 4.2 3.5 - 5.1 mmol/L 09/10/2024 5:56 AM T [facility] ([facility]) Chloride 104 98 - 107 mmol/L 09/10/2024 5:56 AM T [facility] ([facility]) CO2 29 21 - 31 mmol/L 09/10/2024 5:56 AM [facility] ([facility]) Anion Gap 10 7 - 20 mmol/L 09/10/2024 5:56 AM T [facility] ([facility]) BUN 30(H) 7 - 25 mg/dL 09/10/2024 5:56 AM T [facility] ([facility]) Creatinine 1.00 0.60 - 1.20 mg/dL 09/10/2024 5:56 AM [facility] ([facility]) BUN/Creatinine Ratio 30.0 08/14 5:56 AM [facility] ([facility]) Glucose 102(H) 70 - 100 mg/dL 09/10/2024 5:56 AM [facility] ([facility]) Calcium 8.4(L) 8.6 - 10.3 mg/dL 09/10/2024 5:56 AM [facility] ([facility]) AST 16 13 - 39 U/L 09/10/2024 5:56 AM [facility] ([facility]) ALT (SGPT) 7 7 - 52 U/L 09/10/2024 5:56 AM [facility] ([facility]) Alkaline Phosphatase 97 34 - 104 U/L 09/10/2024 5:56 AM [facility] ([facility]) Total Protein 6.0 6.0 - 8.3 g/dL 09/10/2024 5:56 AM [facility] ([facility]) Albumin 2.7(L) 3.5 - 5.7 g/dL 09/10/2024 5:56 AM [facility] ([facility]) Total Bilirubin 0.3 0.3 - 1.0 mg/dL 09/10/2024 5:56 AM [facility] ([facility]) eGFR 63.7 >60.0 mL/min/1. 73m*2 09/10/2024 5:56 AM [facility] ([facility]) Comment:[facility] s estimated glomerular filtration [...] blood specimen / Unknown Venipuncture / Unknown 09/10/2024 4:30 AM EDT 09/10/2024 5:25 AM EDT us Rodolfo Maddox MD LAB BLOOD ORDERABLES Final Result [facility]) [address] [place] [address] * (ABNORMAL) CBC auto differential (09/10/2024 3:35 AM EDT) Auto WBC 10.56 4.00 - 10.60 10*3/uL 09/10/2024 5:44 AM EDT [facility] ([facility]) RBC 3.45(L) 3.80 - 5.00 10*6/uL 09/10/2024 5:44 AM EDT [facility] ([facility]) Hemoglobin 10.2(L) 12.0 - 15.0 g/dL 09/10/2024 5:44 AM EDT [facility] ([facility]) Hematocrit 31.2(L) 36.0 - 45.0 % 09/10/2024 5:44 AM EDT [facility] ([facility]) MCV 90.4 82.0 - 98.0 fL 09/10/2024 5:44 AM EDT [facility] ([facility]) MCH 29.6 27.0 - 33.0 pg 09/10/2024 5:44 AM EDT [facility] ([facility]) MCHC 32.7 32.0 - 35.0 g/dL 09/10/2024 5:44 AM EDT [facility] ([facility]) RDW 13.9 11.5 - 15.0 % 09/10/2024 5:44 AM EDT [facility] ([facility]) Neutrophils % 49.3 40.0 - 72.0 % 09/10/2024 5:44 AM EDT [facility] ([facility]) Lymphocytes % 36.4 20.0 - 45.0 % 09/10/2024 5:44 AM EDT [facility] ([facility]) Monocytes % 8.6 5.0 - 12.0 % 09/10/2024 5:44 AM EDT [facility] ([facility]) Eosinophils % 4.6 0.0 - 6.0 % 09/10/2024 5:44 AM EDT [facility] ([facility]) Basophils % 0.6 0.0 - 1.0 % 09/10/2024 5:44 AM EDT [facility] ([facility]) Neutrophils Absolute 5.21 1.60 - 7.60 10*3/uL 09/10/2024 5:44 AM EDT [facility] ([facility]) Lymphocytes Absolute 3.84 1.20 - 4.00 10*3/uL 09/10/2024 5:44 AM EDT [facility] ([facility]) Monocytes Absolute 0.91 0.10 - 1.00 10*3/uL 09/10/2024 5:44 AM EDT [facility] ([facility]) Eosinophils Absolute 0.49 0.00 - 0.50 10*3/uL 09/10/2024 5:44 AM EDT [facility] ([facility]) Basophils Absolute 0.06 0.00 - 0.20 10*3/uL 09/10/2024 5:44 AM EDT [facility] ([facility]) Platelets 555(H) 150 - 400 10*3/uL 09/10/2024 5:44 AM EDT [facility] ([facility]) nRBC % 0.0 0 % 09/10/2024 5:44 AM EDT [facility] ([facility]) Immature Granulocytes % 0.5 0.0 - 1.0 % 09/10/2024 5:44 AM EDT [facility] ([facility]) Immature Granulocytes Absolute 0.05 0.00 - 0.20 10*3/uL 09/10/2024 5:44 AM EDT [facility] ([facility]) Blood Venous blood specimen / Unknown Venipuncture / Unknown 09/10/2024 3:35 AM EDT 09/10/2024 5:26 AM EDT us Rodolfo Maddox MD LAB BLOOD ORDERABLES Final Result [facility] ([facility]) [address] [place] [address] documented in this encounter Visit Diagnoses Not on filedocumented in this encounter
--- OUTSIDE RECORDS SUMMARY | 2024-09-24 15:11 | XMS_ITS | Encounter Summary ---
Author Organization [facility] Address [address] [place] [address] Care Team Providers Care Quality Nurse Name Role Phone Unavailable Primary Care Provider Unavailabl e Encounter Details Date Type Department Care Team (Late st Contact Info) Description 09/16/2024 Lab Requisition [facility] [address] [place] [phone] Rodolfo Maddox MD [facility] [place] [address] Social History Tobacco Use Types Packs/Day Years [...] Procedure Name Priority Date/Time Associated Diagnosis Comments PROCALCITONIN TEST Routine 09/16/2024 5: 30 AM EDT CBC Routine 09/16/2024 5:30 AM EDT URINALYSIS MICROSCOPIC Routine 1:00 AM EDT URINALYSIS Routine 09/16/2024 1:00 AM EDT URINE CULTURE Routine 09/16/2024 1:00 AM EDT documented in this encounter Results * (ABNORMAL) Procalcitonin Test (09/16/2024 5:30 AM EDT) Procalcitonin 0.22(H) 0.00 - 0.10 ng/mL 09/16/2024 8:40 AM EDT [facility] ([facility]) Comment: Suspected Lower Respiratory [...] blood specimen / Unknown Venipuncture / Unknown 09/16/2024 5:30 AM EDT 09/16/2024 5:57 AM EDT us Rodolfo Maddox MD LAB BLOOD ORDERABLES Final Result [facility] ([facility]) [address], [place] [id number] * (ABNORMAL) CBC (09/16/2024 5:30 AM EDT) Auto WBC 8.81 4.00 - 10.60 10*3/uL 09/16/2024 6:56 AM EDT [facility] ([facility]) RBC 3.36(L) 3.80 - 5.00 10*6/uL 09/16/2024 6:56 AM EDT [facility] ([facility]) Hemoglobin 9.9(L) 12.0 - 15.0 g/dL 09/16/2024 6:56 AM EDT [facility] ([facility]) Hematocrit 32.6(L) 36.0 - 45.0 % 09/16/2024 6:56 AM EDT [facility] ([facility]) MCV 97.0 82.0 - 98.0 fL 09/16/2024 6:56 AM EDT [facility] ([facility]) MCH 29.5 27.0 - 33.0 pg 09/16/2024 6:56 AM EDT [facility] ([facility]) MCHC 30.4(L) 32.0 - 35.0 g/dL 09/16/2024 6:56 AM EDT [facility] ([facility]) RDW 14.6 11.5 - 15.0 % 09/16/2024 6:56 AM EDT [facility] ([facility]) Platelets 475(H) 150 - 400 10*3/uL 09/16/2024 6:56 AM EDT [facility] ([facility]) Blood Venous blood specimen / Unknown Venipuncture / Unknown 09/16/2024 5:30 AM EDT 09/16/2024 5:57 AM EDT us Rodolfo Maddox MD LAB BLOOD ORDERABLES Final Result [facility]) [address] [place] [address] * (ABNORMAL) Urinalysis microscopic (09/16/2024 1:00 AM EDT) RBC, Urine 11-20(A) None Seen, 0-2 /HPF 09/16/2024 6:40 AM EDT [facility] ([facility]) WBC, Urine >50(A) None Seen, 0-2 /HPF 09/16/2024 6:40 AM EDT [facility] ([facility]) Squamous Epithelial, Urine None Seen None Seen, Occasiona l, Few /LPF 09/16/2024 6:40 AM EDT [facility] ([facility]) Mucus, Urine Occasional None Seen, Occasiona l, Few /LPF 09/16/2024 6:40 AM EDT [facility] ([facility]) Crystals, Urine Present(A) None Seen /HPF 09/16/2024 6:40 AM EDT [facility] ([facility]) Triple Phosphate Crystals, Urine Occasional(A) None Seen /HPF 09/16/2024 6:40 AM EDT [facility] ([facility]) Urine Urine specimen obtained by clean catch procedure / Unknown 09/16/2024 1:00 AM EDT 09/16/2024 5:54 AM EDT us Rodolfo Maddox MD LAB URINE ORDERABLES Final Result Performing Organization Address City/State/[facility] Co de Phone Number [facility] ([facility]) [address] [place] [address] * (ABNORMAL) Urine culture, routine (09/16/2024 1:00 AM EDT) Urine Culture >100,000 CFU/Ml Proteus mirabilis(A) JOSE 09/18/2024 7:50 AM EDT [facility] ([facility]) Urine Urine specimen obtained by clean catch procedure / Unknown 09/16/2024 1:00 AM EDT 09/16/2024 5:54 AM EDT Narrative Organism Antibiotic Method Susceptibility Proteus mirabilis Amoxicillin + Clavulanate JOSE <=4/2 ug/ml: Susceptible Proteus mirabilis Ampicillin JOSE <=4 ug/ml: Susceptible Proteus mirabilis Ampicillin + Sulbactam JOSE 2/1 ug/ml: Susceptible Proteus mirabilis Cefazolin (Urine) JOSE Susceptible Proteus mirabilis Ceftriaxone JOSE <=1 ug/ml: Susceptible Proteus mirabilis Ciprofloxacin JOSE <=0.25 ug/ml: Susceptible Proteus mirabilis Gentamicin JOSE <=2 ug/ml: Susceptible Proteus mirabilis Nitrofurantoin JOSE >64 ug/ml: Resistant Proteus mirabilis Tobramycin JOSE <=2 ug/ml: Susceptible Proteus mirabilis Trimethoprim + Sulfamethoxazole JOSE <=0.5/9.5 ug/ml: Susceptible us Rodolfo Maddox MD LAB MICROBIOLOGY - GENERAL ORDERABLES Final Result [facility] ([facility]) [address] [place] [address] * (ABNORMAL) Urinalysis (09/16/2024 1:00 AM EDT) Color, Urine Yellow Colorless, Yellow, Light-Yellow 09/16/2024 6:31 AM EDT [facility] ([facility]) Clarity, Urine Cloudy(A) Clear 09/16/2024 6:31 AM EDT [facility] ([facility]) pH, Urine 8.0 5.0 - 8.0 pH 09/16/2024 6:31 AM EDT [facility] ([facility] [place]) Leukocytes, Urine Large(A) Negative 09/16/2024 6:31 AM EDT [facility] ([facility]) Nitrite, Urine Positive(A) Negative 09/16/2024 6:31 AM EDT [facility] ([facility]) Protein, Urine 300(A) Negative mg/dL 09/16/2024 6:31 AM EDT [facility] ([facility] [place]) Glucose, Urine >=1000(A) Normal mg/dL 09/16/2024 6:31 AM EDT [facility] ([facility]) Bilirubin, Urine Negative Negative 09/16/2024 6:31 AM EDT [facility] ([facility]) Specific [place], Urine 1.020 1.010 - 1.030 09/16/2024 6:31 AM EDT [facility] ([facility]) Ketones, Urine Negative Negative mg/dL 09/16/2024 6:31 AM EDT [facility] ([facility]) Blood, Urine Small(A) Negative 09/16/2024 6:31 AM EDT [facility] ([facility] [place]) Urobilinogen, Urine Normal Normal mg/dL 09/16/2024 6:31 AM EDT [facility] ([place]) Urine Urine specimen obtained by clean catch procedure / Unknown 09/16/2024 1:00 AM EDT 09/16/2024 5:54 AM EDT us Rodolfo Maddox MD LAB URINE ORDERABLES Final Result [facility] ([place]) [address] [place] [address] documented in this encounter Visit Diagnoses Not on filedocumented in this encounter
--- OUTSIDE RECORDS SUMMARY | 2024-09-24 15:12 | XMS_ITS | Encounter Summary ---
Author Organization [facility] Address [address] [place] [address] Care Team Providers Care [employer] Member Name Role Phone Unavailable Primary Care Provider Unavailabl e Encounter Details Date Type Department Care Team (Late st Contact Info) Description 08/10/2024 Lab Requisition [facility] [address] [place] [phone] Rodolfo Maddox MD [address] [place] [id number] Respiratory failure, unspecified, unspecified whether with hypoxia [...] Diagnosis Comments CBC WITH AUTO DIFFERENTIAL Routine 08/11/2024 3:40 AM EDT Respiratory failure, unspecified, unspecified whether with hypoxia or hypercapnia (CMS/HCC) CBC AND DIFFERENTIAL Routine 08/11/2024 3:40 AM EDT Respiratory failure, unspecified, unspecified whether with hypoxia or hypercapnia (CMS/HCC) MAGNESIUM Routine 08/11/2024 3:40 AM EDT Respiratory failure, unspecified, unspecified whether with hypoxia or hypercapnia (CMS/HCC) BASIC METABOLIC PANEL Routine 08/11/2024 3:40 AM EDT Respiratory failure, unspecified, unspecified whether with hypoxia or hypercapnia (CMS/HCC) documented in this encounter Results * (ABNORMAL) CBC auto differential (08/11/2024 3:40 AM EDT) Auto WBC 6.82 4.00 - 10.60 10*3/uL 08/11/2024 4:36 AM EDT [facility] ([facility]) RBC 3.39(L) 3.80 - 5.00 10*6/uL 08/11/2024 4:36 AM EDT [facility] ([facility]) Hemoglobin 10.1(L) 12.0 - 15.0 g/dL 08/11/2024 4:36 AM EDT [facility] ([facility]) Hematocrit 34.0(L) 36.0 - 45.0 % 08/11/2024 4:36 AM EDT [facility] ([facility]) MCV 100.3(H) 82.0 - 98.0 fL 08/11/2024 4:36 AM EDT [facility] ([facility]) MCH 29.8 27.0 - 33.0 pg 08/11/2024 4:36 AM EDT [facility] ([facility]) MCHC 29.7(L) 32.0 - 35.0 g/dL 08/11/2024 4:36 AM EDT [facility] ([facility]) RDW 15.1(H) 11.5 - 15.0 % 08/11/2024 4:36 AM EDT [facility] ([facility]) Neutrophils % 48.8 40.0 - 72.0 % 08/11/2024 4:36 AM EDT [facility] ([facility]) Lymphocytes % 35.0 20.0 - 45.0 % 08/11/2024 4:36 AM EDT [facility] ([facility]) Monocytes % 10.3 5.0 - 12.0 % 08/11/2024 4:36 AM EDT [facility] ([facility]) Eosinophils % 3.2 0.0 - 6.0 % 08/11/2024 4:36 AM EDT [facility] ([facility]) Basophils % 1.2(H) 0.0 - 1.0 % 08/11/2024 4:36 AM EDT [facility] ([facility]) Neutrophils Absolute 3.33 1.60 - 7.60 10*3/uL 08/11/2024 4:36 AM EDT [facility] ([facility]) Lymphocytes Absolute 2.39 1.20 - 4.00 10*3/uL 08/11/2024 4:36 AM EDT [facility] ([facility]) Monocytes Absolute 0.70 0.10 - 1.00 10*3/uL 08/11/2024 4:36 AM EDT [facility] ([facility]) Eosinophils Absolute 0.22 0.00 - 0.50 10*3/uL 08/11/2024 4:36 AM EDT [facility] ([facility]) Basophils Absolute 0.08 0.00 - 0.20 10*3/uL 08/11/2024 4:36 AM EDT [facility] ([facility]) Platelets 493(H) 150 - 400 10*3/uL 08/11/2024 4:36 AM EDT [facility] ([facility]) nRBC % 0.0 0 % 08/11/2024 4:36 AM EDT [facility] ([facility]) Immature Granulocytes % 1.5(H) 0.0 - 1.0 % 08/11/2024 4:36 AM EDT [facility] ([facility]) Immature Granulocytes Absolute 0.10 0.00 - 0.20 10*3/uL 08/11/2024 4:36 AM EDT [facility] ([facility]) Blood Venous blood specimen / Unknown 08/11/2024 3:40 AM EDT 08/11/2024 4:21 AM EDT us Rodolfo Maddox MD LAB BLOOD ORDERABLES Final Result [facility] ([facility]) [address] [place], [place] [phone] * (ABNORMAL) Magnesium (08/11/2024 3:40 AM EDT) Magnesium 1.5(L) 1.9 - 2.7 mg/dL 08/11/2024 4:53 AM EDT [facility] ([facility]) Blood Venous blood specimen / Unknown Venipuncture / Unknown 08/11/2024 3:40 AM EDT 08/11/2024 4:21 AM EDT us Rodolfo Maddox MD LAB BLOOD ORDERABLES Final Result [facility] ([facility]) [address] [place] [address] * (ABNORMAL) Basic metabolic panel (08/11/2024 3:40 AM EDT) Sodium 140 136 - 145 mmol/L 08/11/2024 4:53 AM EDT [facility] ([facility]) Potassium 3.7 3.5 - 5.1 mmol/L 08/11/2024 4:53 AM EDT [facility] ([facility]) Chloride 104 98 - 107 mmol/L 08/11/2024 4:53 AM EDT [facility] ([facility]) CO2 27 21 - 31 mmol/L 08/11/2024 4:53 AM EDT [facility] ([facility]) BUN 9 7 - 25 mg/dL 08/11/2024 4:53 AM EDT [facility] ([facility]) Creatinine 0.91 0.60 - 1.20 mg/dL 08/11/2024 4:53 AM EDT [facility] ([facility]) Glucose 119(H) 70 - 100 mg/dL 08/11/2024 4:53 AM EDT [facility] ([facility]) Calcium 7.9(L) 8.6 - 10.3 mg/dL 08/11/2024 4:53 AM EDT [facility] ([facility]) Anion Gap 13 7 - 20 mmol/L 08/11/2024 4:53 AM EDT [facility] ([facility]) eGFR 71.3 >60.0 mL/min/1. 73m*2 08/11/2024 4:53 AM EDT [facility] ([facility]) Comment:[facility] s estimated glomerular filtration rate (eGFR) [...] any one group of individuals. BUN/Creatinine Ratio 9.9 07/15 4:53 AM EDT [facility] ([facility]) Blood Venous blood specimen / Unknown Venipuncture / Unknown 08/11/2024 3:40 AM EDT 08/11/2024 4:21 AM EDT us Rodolfo Maddox MD LAB BLOOD ORDERABLES Final Result [facility] ([facility]) [address] [place] [address] documented in this encounter Visit Diagnoses Diagnosis Respiratory failure, unspecified, unspecified whether with hypoxia or hypercapnia (CMS/HCC) documented in this encounter
--- OUTSIDE RECORDS SUMMARY | 2024-09-24 15:12 | XMS_ITS | Encounter Summary ---
Author Organization [facility] Address [address] [place] [address] Care Team Providers Care Hospital Supervisor Name Role Phone Unavailable Primary Care Provider Unavailabl e Encounter Details Date Type Department Care Team (Late st Contact Info) Description 08/02/2024 Lab Requisition [facility] [address] [place] [phone] Rodolfo Maddox MD [address] [place] [id number] Social History Tobacco Use Types Packs/Day Years [...] Priority Date/Time Associated Diagnosis Comments CBC Routine 08/03/2024 3:50 AM EDT BASIC METABOLIC PANEL Routine 08/03/2024 3:50 AM EDT documented in this encounter Results * (ABNORMAL) Basic metabolic panel (08/03/2024 3:50 AM EDT) Sodium 141 136 - 145 mmol/L 08/03/2024 5:06 AM EDT [facility] ([facility]) Potassium 3.6 3.5 - 5.1 mmol/L 08/03/2024 5:06 AM EDT [facility] ([facility]) Chloride 106 98 - 107 mmol/L 08/03/2024 5:06 AM EDT [facility] ([facility]) CO2 29 21 - 31 mmol/L 08/03/2024 5:06 AM EDT [facility] ([facility]) BUN 9 7 - 25 mg/dL 08/03/2024 5:06 AM EDT [facility] ([facility]) Creatinine 0.72 0.60 - 1.20 mg/dL 08/03/2024 5:06 AM EDT [facility] ([facility]) Glucose 110(H) 70 - 100 mg/dL 08/03/2024 5:06 AM EDT [facility] ([facility]) Calcium 7.7(L) 8.6 - 10.3 mg/dL 08/03/2024 5:06 AM EDT [facility] ([facility]) Anion Gap 10 7 - 20 mmol/L 08/03/2024 5:06 AM EDT [facility] ([facility]) eGFR 94.5 >60.0 mL/min/1. 73m*2 08/03/2024 5:06 AM EDT [facility] ([facility]) Comment:[facility] s estimated glomerular filtration rate (eGFR) will [...] any one group of individuals. BUN/Creatinine Ratio 12.5 07/15 5:06 AM EDT [facility] ([facility]) Blood Venous blood specimen / Unknown Venipuncture / Unknown 08/03/2024 3:50 AM EDT 08/03/2024 4:37 AM EDT us Rodolfo Maddox MD LAB BLOOD ORDERABLES Final Result [facility] ([facility]) [address] [place] [address] * (ABNORMAL) CBC (08/03/2024 3:50 AM EDT) Auto WBC 9.38 4.00 - 10.60 10*3/uL 08/03/2024 4:52 AM EDT [facility] ([facility]) RBC 2.58(L) 3.80 - 5.00 10*6/uL 08/03/2024 4:52 AM EDT [facility] ([facility]) Hemoglobin 7.6(L) 12.0 - 15.0 g/dL 08/03/2024 4:52 AM EDT [facility] ([facility]) Hematocrit 24.9(L) 36.0 - 45.0 % 08/03/2024 4:52 AM EDT [facility] ([facility]) MCV 96.5 82.0 - 98.0 fL 08/03/2024 4:52 AM EDT [facility] ([facility]) MCH 29.5 27.0 - 33.0 pg 08/03/2024 4:52 AM EDT [facility] ([facility]) MCHC 30.5(L) 32.0 - 35.0 g/dL 08/03/2024 4:52 AM EDT [facility] ([facility]) RDW 14.7 11.5 - 15.0 % 08/03/2024 4:52 AM EDT [facility] ([facility]) Platelets 609(H) 150 - 400 10*3/uL 08/03/2024 4:52 AM EDT [facility] ([facility]) Blood Venous blood specimen / Unknown Venipuncture / Unknown 08/03/2024 3:50 AM EDT 08/03/2024 4:37 AM EDT us Rodolfo Maddox MD LAB BLOOD ORDERABLES Final Result [facility] ([facility]) [address] [place] [address] documented in this encounter Visit Diagnoses Not on filedocumented in this encounter
--- OUTSIDE RECORDS SUMMARY | 2024-09-24 15:12 | XMS_ITS | Encounter Summary ---
Author Organization [facility] Address [address] [place] [address] Care Team Providers Care Financial Director Name Role Phone Unavailable Primary Care Provider Unavailabl e Encounter Details Date Type Department Care Team (Late st Contact Info) Description 08/20/2024 Lab Requisition [facility] [address] [place] [phone] Rodolfo Maddox MD [facility] [place] [id number] Social History Tobacco Use Types Packs/Day Years [...] Date/Time Associated Diagnosis Comments PROCALCITONIN TEST Routine 08/20/2024 4: 12 PM EDT documented in this encounter Results * (ABNORMAL) Procalcitonin Test (08/20/2024 4:12 PM EDT) Procalcitonin 0.15(H) 0.00 - 0.10 ng/mL 08/20/2024 8:12 PM EDT [facility] ([facility]) Comment: Suspected Lower [...] blood specimen / Unknown Venipuncture / Unknown 08/20/2024 4:12 PM EDT 08/20/2024 4:12 PM EDT us Rodolfo Maddox MD LAB BLOOD ORDERABLES Final Result [facility] ([facility]) [address] [place] [address] documented in this encounter Visit Diagnoses Not on filedocumented in this encounter
--- OUTSIDE RECORDS SUMMARY | 2024-09-24 15:12 | XMS_ITS | Encounter Summary ---
Author Organization [facility] Address [address] [place] [address] Care Team Providers Care Personal Banking Assistant Name Role Phone Unavailable Primary Care Provider Unavailabl e Encounter Details Date Type Department Care Team (Late st Contact Info) Description 08/26/2024 Lab Requisition [facility] [address] [place] [phone] Rodolfo Maddox MD [facility] [place] [address] Social History Tobacco Use Types Packs/Day Years [...] Diagnosis Comments CBC WITH AUTO DIFFERENTIAL Routine 08/27/2024 4:00 AM EDT CBC AND DIFFERENTIAL Routine 08/27/2024 4:00 AM EDT PHOSPHORUS Routine 08/27/2024 4:00 AM EDT MAGNESIUM Routine 08/27/2024 4:00 AM EDT BASIC METABOLIC PANEL Routine 08/27/2024 4:00 AM EDT documented in this encounter Results * (ABNORMAL) CBC auto differential (08/27/2024 4:00 AM EDT) Auto WBC 6.07 4.00 - 10.60 10*3/uL 08/27/2024 5:[address] [facility] ([facility]) RBC 3.68(L) 3.80 - 5.00 10*6/uL 08/27/2024 5:[address] [facility] ([facility]) Hemoglobin 10.9(L) 12.0 - 15.0 g/dL 08/27/2024 5:[address] [facility] ([facility]) Hematocrit 34.4(L) 36.0 - 45.0 % 08/27/2024 5:[address] [facility] ([facility]) MCV 93.5 82.0 - 98.0 fL 08/27/2024 5:[address] [facility] ([facility]) MCH 29.6 27.0 - 33.0 pg 08/27/2024 5:[address] [facility] ([facility]) MCHC 31.7(L) 32.0 - 35.0 g/dL 08/27/2024 5:[address] [facility] ([facility]) RDW 14.2 11.5 - 15.0 % 08/27/2024 5:[address] [facility] ([facility]) Neutrophils % 55.3 40.0 - 72.0 % 08/27/2024 5:[address] [facility] ([facility]) Lymphocytes % 29.8 20.0 - 45.0 % 08/27/2024 5:[address] [facility] ([facility]) Monocytes % 12.7(H) 5.0 - 12.0 % 08/27/2024 5:[address] [facility] ([facility]) Eosinophils % 1.3 0.0 - 6.0 % 08/27/2024 5:[address] [facility] ([facility]) Basophils % 0.7 0.0 - 1.0 % 08/27/2024 5:[address] [facility] ([facility]) Neutrophils Absolute 3.36 1.60 - 7.60 10*3/uL 08/27/2024 5:[address] [facility] ([facility]) Lymphocytes Absolute 1.81 1.20 - 4.00 10*3/uL 08/27/2024 5:[address] [facility] ([facility]) Monocytes Absolute 0.77 0.10 - 1.00 10*3/uL 08/27/2024 5:[address] [facility] ([facility]) Eosinophils Absolute 0.08 0.00 - 0.50 10*3/uL 08/27/2024 5:[address] [facility] ([facility]) Basophils Absolute 0.04 0.00 - 0.20 10*3/uL 08/27/2024 5:[address] [facility] ([facility]) Platelets 505(H) 150 - 400 10*3/uL 08/27/2024 5:[address] [facility] ([facility]) nRBC % 0.0 0 % 08/27/2024 5:[address] [facility] ([facility]) Immature Granulocytes % 0.2 0.0 - 1.0 % 08/27/2024 5:[address] [facility] ([facility]) Immature Granulocytes Absolute 0.01 0.00 - 0.20 10*3/uL 08/27/2024 5:[address] [facility] ([facility]) Blood Venous blood specimen / Unknown Venipuncture / Unknown 08/27/2024 4:00 AM EDT 08/27/2024 5:03 AM EDT us Rodolfo Maddox MD LAB BLOOD ORDERABLES Final Result [facility] ([facility]) [address] [place], [place] [id number] * Phosphorus (08/27/2024 4:00 AM EDT) Phosphorus 3.4 2.5 - 5.0 mg/dL 08/27/2024 5:[address] [facility] ([facility]) Blood Venous blood specimen / Unknown Venipuncture / Unknown 08/27/2024 4:00 AM EDT 08/27/2024 5:03 AM EDT us Rodolfo Maddox MD LAB BLOOD ORDERABLES Final Result Performing Organization Address City/[facility]/ZIP Co de Phone Number [facility] [address] [place] [address] * Magnesium (08/27/2024 4:00 AM EDT) Magnesium 1.9 1.9 - 2.7 mg/dL 08/27/2024 5:[address] [facility] ([facility]) Blood Venous blood specimen / Unknown Venipuncture / Unknown 08/27/2024 4:00 AM EDT 08/27/2024 5:03 AM EDT Rodolfo Maddox MD LAB BLOOD ORDERABLES Final Result Performing Organization Address [facility] Co de Phone Number [facility] [address] [place] [phone] * (ABNORMAL) Basic metabolic panel (08/27/2024 4:00 AM EDT) Sodium 138 136 - 145 mmol/L 08/27/2024 5:[address] [facility] ([facility]) Potassium 4.4 3.5 - 5.1 mmol/L 08/27/2024 5:[address] [facility] ([facility]) Chloride 99 98 - 107 mmol/L 08/27/2024 5:[address] [facility] ([facility]) CO2 33(H) 21 - 31 mmol/L 08/27/2024 5:[address] [facility] ([facility]) BUN 17 7 - 25 mg/dL 08/27/2024 5:[address] [facility] ([facility]) Creatinine 0.72 0.60 - 1.20 mg/dL 08/27/2024 5:[address] [facility] ([facility]) Glucose 165(H) 70 - 100 mg/dL 08/27/2024 5:[address] [facility] ([facility]) Calcium 8.4(L) 8.6 - 10.3 mg/dL 08/27/2024 5:[address] [facility] ([facility]) Anion Gap 10 7 - 20 mmol/L 08/27/2024 5:[address] [facility] ([facility]) eGFR 94.5 >60.0 mL/min/1. 73m*2 08/27/2024 5:[address] [facility] ([facility]) Comment:[facility] s estimated glomerular filtration rate (eGFR) [...] any one group of individuals. BUN/Creatinine Ratio 23.6 08/13 5:[address] [facility] ([facility]) Blood Venous blood specimen / Unknown Venipuncture / Unknown 08/27/2024 4:00 AM EDT 08/27/2024 5:03 AM EDT us Rodolfo Maddox MD LAB BLOOD ORDERABLES Final Result [facility] ([facility]) [address] [place] [address] documented in this encounter Visit Diagnoses Not on filedocumented in this encounter
--- OUTSIDE RECORDS SUMMARY | 2024-09-24 15:12 | XMS_ITS | Encounter Summary ---
Author Organization [facility] Address [address] [place] [address] Care Team Providers Care Makeup Instructor Name Role Phone Unavailable Primary Care Provider Unavailabl e Encounter Details Date Type Department Care Team (Late st Contact Info) Description 07/30/2024 Lab Requisition [facility] Lab [address] [place] [address] Rodolfo Maddox MD [facility] [place] [address] Social History Tobacco Use Types Packs/Day Years [...] Diagnosis Comments CBC WITH AUTO DIFFERENTIAL Routine 07/31/2024 3:45 AM EDT CBC AND DIFFERENTIAL Routine 07/31/2024 3:45 AM EDT PREALBUMIN Routine 07/31/2024 3:45 AM EDT PHOSPHORUS Routine 07/31/2024 3:45 AM EDT MAGNESIUM Routine 07/31/2024 3:45 AM EDT COMPREHENSIVE METABOLIC PANEL Routine 07/31/2024 3:45 AM EDT documented in this encounter Results * (ABNORMAL) CBC auto differential (07/31/2024 3:45 AM EDT) Auto WBC 14.71(H) 4.00 - 10.60 10*3/uL 07/31/2024 5:[address] [facility] ([facility]) RBC 2.79(L) 3.80 - 5.00 10*6/uL 07/31/2024 5:[address] [facility] ([facility]) Hemoglobin 8.2(L) 12.0 - 15.0 g/dL 07/31/2024 5:[address] [facility] ([facility]) Hematocrit 27.7(L) 36.0 - 45.0 % 07/31/2024 5:[address] [facility] ([facility]) MCV 99.3(H) 82.0 - 98.0 fL 07/31/2024 5:[address] [facility] ([facility]) MCH 29.4 27.0 - 33.0 pg 07/31/2024 5:[address] [facility] ([facility]) MCHC 29.6(L) 32.0 - 35.0 g/dL 07/31/2024 5:[address] [facility] ([facility]) RDW 14.6 11.5 - 15.0 % 07/31/2024 5:[address] [facility] ([facility]) Neutrophils % 80.0(H) 40.0 - 72.0 % 07/31/2024 5:[address] [facility] ([facility]) Lymphocytes % 11.1(L) 20.0 - 45.0 % 07/31/2024 5:[address] [facility] ([facility]) Monocytes % 6.9 5.0 - 12.0 % 07/31/2024 5:[address] [facility] ([facility]) Eosinophils % 1.0 0.0 - 6.0 % 07/31/2024 5:[address] [facility] ([facility]) Basophils % 0.3 0.0 - 1.0 % 07/31/2024 5:[address] [facility] ([facility]) Neutrophils Absolute 11.78(H) 1.60 - 7.60 10*3/uL 07/31/2024 5:[address] [facility] ([facility]) Lymphocytes Absolute 1.63 1.20 - 4.00 10*3/uL 07/31/2024 5:[address] [facility] ([facility]) Monocytes Absolute 1.01(H) 0.10 - 1.00 10*3/uL 07/31/2024 5:[address] [facility] ([facility]) Eosinophils Absolute 0.15 0.00 - 0.50 10*3/uL 07/31/2024 5:[address] [facility] ([facility]) Basophils Absolute 0.04 0.00 - 0.20 10*3/uL 07/31/2024 5:[address] [facility] ([facility]) Platelets 526(H) 150 - 400 10*3/uL 07/31/2024 5:[address] [facility] ([facility]) nRBC % 0.0 0 % 07/31/2024 5:[address] [facility] ([facility]) Immature Granulocytes % 0.7 0.0 - 1.0 % 07/31/2024 5:[address] [facility] ([facility]) Immature Granulocytes Absolute 0.10 0.00 - 0.20 10*3/uL 07/31/2024 5:[address] [facility] ([facility]) Blood Venous blood specimen / Unknown 07/31/2024 3:45 AM EDT 07/31/2024 4:33 AM EDT us Rodolfo Maddox MD LAB BLOOD ORDERABLES Final Result [facility] ([facility]) [address] [place] [address] * Prealbumin (07/31/2024 3:45 AM EDT) Prealbumin 10.0 mg/dL 07/31/2024 6:[address] [facility] ([facility]) Blood Venous blood specimen / Unknown 07/31/2024 3:45 AM EDT 07/31/2024 4:33 AM EDT us Rodolfo Maddox MD LAB BLOOD ORDERABLES Final Result [facility] [place]) [address] [place] [phone] * Phosphorus (07/31/2024 3:45 AM EDT) Phosphorus 2.6 2.5 - 5.0 mg/dL 07/31/2024 6:[address] [facility] ([facility]) Blood Venous blood specimen / Unknown 07/31/2024 3:45 AM EDT 07/31/2024 4:33 AM EDT Rodolfo Maddox MD LAB BLOOD ORDERABLES Final Result Performing Organization Address City/[facility]/ZIP Co de Phone Number [facility] [place]) [address] [place] [phone] * Magnesium (07/31/2024 3:45 AM EDT) Magnesium 1.9 1.9 - 2.7 mg/dL 07/31/2024 6:[address] [facility] [place]) Blood Venous blood specimen / Unknown 07/31/2024 3:45 AM EDT 07/31/2024 4:33 AM EDT us Rodolfo Maddox MD LAB BLOOD ORDERABLES Final Result [facility] [place]) [address] [place] [phone] * (ABNORMAL) Comprehensive metabolic panel (07/31/2024 3:45 AM EDT) Sodium 143 136 - 145 mmol/L 07/31/2024 6:[address] [facility] [place]) Potassium 5.5(H) 3.5 - 5.1 mmol/L 07/31/2024 6:[address] [facility] ([facility]) Chloride 114(H) 98 - 107 mmol/L 07/31/2024 6:[address] [facility] ([facility]) CO2 25 21 - 31 mmol/L 07/31/2024 6:[address] [facility] ([facility]) Anion Gap 10 7 - 20 mmol/L 07/31/2024 6:[address] [facility] ([facility]) BUN 17 7 - 25 mg/dL 07/31/2024 6:[address] [facility] ([facility]) Creatinine 0.69 0.60 - 1.20 mg/dL 07/31/2024 6:[address] [facility] ([facility]) BUN/Creatinine Ratio 24.6 07/14 6:[address] [facility] ([facility]) Glucose 69(L) 70 - 100 mg/dL 07/31/2024 6:[address] [facility] ([facility]) Calcium 8.0(L) 8.6 - 10.3 mg/dL 07/31/2024 6:[address] [facility] ([facility]) AST 25 13 - 39 U/L 07/31/2024 6:[address] [facility] ([facility]) ALT (SGPT) 9 7 - 52 U/L 07/31/2024 6:[address] [facility] ([facility]) Alkaline Phosphatase 164(H) 34 - 104 U/L 07/31/2024 6:[address] [facility] ([facility]) Total Protein 6.3 6.0 - 8.3 g/dL 07/31/2024 6:[address] [facility] ([facility]) Albumin 2.6(L) 3.5 - 5.7 g/dL 07/31/2024 6:[address] [facility] ([facility]) Total Bilirubin 0.3 0.3 - 1.0 mg/dL 07/31/2024 6:[address] [facility] ([facility]) eGFR 98.1 >60.0 mL/min/1. 73m*2 07/31/2024 6:[address] [facility]) Comment:The [facility] s estimated glomerular filtration rate (eGFR) will [...] individuals. Blood Venous blood specimen / Unknown 07/31/2024 3:45 AM EDT 07/31/2024 4:33 AM EDT us Rodolfo Maddox MD LAB BLOOD ORDERABLES Final Result [facility]) [address] [place] [address] documented in this encounter Visit Diagnoses Not on filedocumented in this encounter
--- OUTSIDE RECORDS SUMMARY | 2024-09-24 15:12 | XMS_ITS | Encounter Summary ---
Author Organization [facility] Address [address] [place] [address] Care Team Providers Care Food Production Supervisor Name Role Phone Unavailable Primary Care Provider Unavailabl e Encounter Details Date Type Department Care Team (Late st Contact Info) Description 08/28/2024 Lab Requisition [facility] Lab [address] [place] [address] Rodolfo Maddox MD [facility] [place] [address] Social History Tobacco Use Types Packs/Day Years [...] Diagnosis Comments CBC WITH AUTO DIFFERENTIAL Routine 08/28/2024 3:50 AM EDT CBC AND DIFFERENTIAL Routine 08/28/2024 3:50 AM EDT MAGNESIUM Routine 08/28/2024 3:50 AM EDT BASIC METABOLIC PANEL Routine 08/28/2024 3:50 AM EDT documented in this encounter Results * (ABNORMAL) CBC auto differential (08/28/2024 3:50 AM EDT) Auto WBC 5.69 4.00 - 10.60 10*3/uL 08/28/2024 5:16 AM T [facility] ([facility]) RBC 3.35(L) 3.80 - 5.00 10*6/uL 08/28/2024 5:[facility] Hemoglobin 10.1(L) 12.0 - 15.0 g/dL 08/28/2024 5:16 AM [facility] ([facility]) Hematocrit 30.8(L) 36.0 - 45.0 % 08/28/2024 5:16 AM T [facility] ([facility]) MCV 91.9 82.0 - 98.0 fL 08/28/2024 5:16 AM [facility] ([facility]) MCH 30.1 27.0 - 33.0 pg 08/28/2024 5:16 AM [facility] ([facility]) MCHC 32.8 32.0 - 35.0 g/dL 08/28/2024 5:16 AM [facility] ([facility]) RDW 14.1 11.5 - 15.0 % 08/28/2024 5:16 AM [facility] ([facility]) Neutrophils % 47.9 40.0 - 72.0 % 08/28/2024 5:16 AM [facility] ([facility]) Lymphocytes % 32.9 20.0 - 45.0 % 08/28/2024 5:16 AM [facility] ([facility]) Monocytes % 14.1(H) 5.0 - 12.0 % 08/28/2024 5:16 AM [facility] ([facility]) Eosinophils % 3.5 0.0 - 6.0 % 08/28/2024 5:16 AM [facility] ([facility]) Basophils % 1.1(H) 0.0 - 1.0 % 08/28/2024 5:16 AM [facility] ([facility]) Neutrophils Absolute 2.73 1.60 - 7.60 10*3/uL 08/28/2024 5:16 AM [facility] ([facility]) Lymphocytes Absolute 1.87 1.20 - 4.00 10*3/uL 08/28/2024 5:16 AM [facility] ([facility]) Monocytes Absolute 0.80 0.10 - 1.00 10*3/uL 08/28/2024 5:16 AM EDT [facility] ([facility]) Eosinophils Absolute 0.20 0.00 - 0.50 10*3/uL 08/28/2024 5:16 AM EDT [facility] ([facility]) Basophils Absolute 0.06 0.00 - 0.20 10*3/uL 08/28/2024 5:16 AM EDT [facility] ([facility]) Platelets 548(H) 150 - 400 10*3/uL 08/28/2024 5:16 AM EDT [facility] ([facility]) nRBC % 0.0 0 % 08/28/2024 5:16 AM EDT [facility] ([facility]) Immature Granulocytes % 0.5 0.0 - 1.0 % 08/28/2024 5:16 AM EDT [facility] ([facility]) Immature Granulocytes Absolute 0.03 0.00 - 0.20 10*3/uL 08/28/2024 5:16 AM EDT [facility] ([facility]) Blood Venous blood specimen / Unknown Venipuncture / Unknown 08/28/2024 3:50 AM EDT 08/28/2024 5:01 AM EDT us Rodolfo Maddox MD LAB BLOOD ORDERABLES Final Result [facility] [address] [id number] * Magnesium (08/28/2024 3:50 AM EDT) Magnesium 2.0 1.9 - 2.7 mg/dL 08/28/2024 5:41 AM EDT [facility]) Blood Venous blood specimen / Unknown Venipuncture / Unknown 08/28/2024 3:50 AM EDT 08/28/2024 5:00 AM EDT us Rodolfo Maddox MD LAB BLOOD ORDERABLES Final Result [facility] ([facility]) [address] [place] [address] * (ABNORMAL) Basic metabolic panel (08/28/2024 3:50 AM EDT) Sodium 137 136 - 145 mmol/L 08/28/2024 5:41 AM EDT [facility] ([facility]) Potassium 4.1 3.5 - 5.1 mmol/L 08/28/2024 5:41 AM EDT [facility] ([facility]) Chloride 97(L) 98 - 107 mmol/L 08/28/2024 5:41 AM EDT [facility] ([facility]) CO2 34(H) 21 - 31 mmol/L 08/28/2024 5:41 AM EDT [facility] ([facility]) BUN 22 7 - 25 mg/dL 08/28/2024 5:41 AM EDT [facility] ([facility]) Creatinine 0.82 0.60 - 1.20 mg/dL 08/28/2024 5:41 AM EDT [facility] ([facility]) Glucose 170(H) 70 - 100 mg/dL 08/28/2024 5:41 AM EDT [facility] ([facility]) Calcium 8.3(L) 8.6 - 10.3 mg/dL 08/28/2024 5:41 AM EDT [facility] ([facility]) Anion Gap 10 7 - 20 mmol/L 08/28/2024 5:41 AM EDT [facility] ([facility]) eGFR 80.8 >60.0 mL/min/1. 73m*2 08/28/2024 5:41 AM EDT [facility] ([facility]) Comment:The [facility] s estimated glomerular filtration rate [...] any one group of individuals. BUN/Creatinine Ratio 26.8 08/13 5:41 AM EDT [facility] ([facility]) Blood Venous blood specimen / Unknown Venipuncture / Unknown 08/28/2024 3:50 AM EDT 08/28/2024 5:00 AM EDT us Rodolfo Maddox MD LAB BLOOD ORDERABLES Final Result [facility] ([facility]) [address] [place] [address] documented in this encounter Visit Diagnoses Not on filedocumented in this encounter
--- OUTSIDE RECORDS SUMMARY | 2024-09-24 15:12 | XMS_ITS | Encounter Summary ---
Author Organization [facility] Address [address] [place] [address] Care Team Providers Care Candle Molder Machine Name Role Phone Unavailable Primary Care Provider Unavailabl e Encounter Details Date Type Department Care Team (Late st Contact Info) Description 08/11/2024 Lab Requisition [facility] [address] [place] [id number] Rodolfo Maddox MD [address] [place] [id number] Social History Tobacco Use Types Packs/Day Years [...] Procedure Name Priority Date/Time Associated Diagnosis Comments MAGNESIUM Routine 08/12/2024 4:20 AM EDT BASIC METABOLIC PANEL Routine 08/12/2024 4:20 AM EDT CBC WITH AUTO DIFFERENTIAL Routine 08/12/2024 3:35 AM EDT CBC Routine 08/12/2024 3:35 AM EDT CBC AND DIFFERENTIAL Routine 08/12/2024 3:35 AM EDT documented in this encounter Results * Magnesium (08/12/2024 4:20 AM EDT) Magnesium 2.1 1.9 - 2.7 mg/dL 08/12/2024 5:26 AM EDT [facility] ([facility]) Blood Venous blood specimen / Unknown 08/12/2024 4:20 AM EDT 08/12/2024 4:45 AM EDT us Rodolfo Maddox MD LAB BLOOD ORDERABLES Final Result [facility] ([facility]) [address] [place] [address] * (ABNORMAL) Basic metabolic panel (08/12/2024 4:20 AM EDT) Pathologist [facility] Sodium 143 136 - 145 mmol/L 08/12/2024 5:26 AM EDT [facility] ([facility]) Potassium 3.5 3.5 - 5.1 mmol/L 08/12/2024 5:26 AM EDT [facility] ([facility]) Chloride 104 98 - 107 mmol/L 08/12/2024 5:26 AM EDT [facility] ([facility]) CO2 33(H) 21 - 31 mmol/L 08/12/2024 5:26 AM EDT [facility] ([facility]) BUN 9 7 - 25 mg/dL 08/12/2024 5:26 AM EDT [facility] ([facility]) Creatinine 0.76 0.60 - 1.20 mg/dL 08/12/2024 5:26 AM EDT [facility] ([facility]) Glucose 67(L) 70 - 100 mg/dL 08/12/2024 5:26 AM EDT [facility] ([facility]) Calcium 8.1(L) 8.6 - 10.3 mg/dL 08/12/2024 5:26 AM EDT [facility] ([facility]) Anion Gap 10 7 - 20 mmol/L 08/12/2024 5:26 AM EDT [facility] ([facility]) eGFR 88.5 >60.0 mL/min/1. 73m*2 08/12/2024 5:26 AM EDT [facility] ([facility]) Comment:The [facility] s estimated [...] any one group of individuals. BUN/Creatinine Ratio 11.8 07/16 5:26 AM EDT [facility] ([facility]) Blood Venous blood specimen / Unknown 08/12/2024 4:20 AM EDT 08/12/2024 4:45 AM EDT us Rodolfo Maddox MD LAB BLOOD ORDERABLES Final Result [facility]) [address] [place] [address] * (ABNORMAL) CBC auto differential (08/12/2024 3:35 AM EDT) Auto WBC 9.04 4.00 - 10.60 10*3/uL 08/12/2024 12:32 PM EDT [facility] ([facility]) RBC 3.04(L) 3.80 - 5.00 10*6/uL 08/12/2024 12:32 PM EDT [facility] ([facility]) Hemoglobin 8.9(L) 12.0 - 15.0 g/dL 08/12/2024 12:32 PM EDT [facility] ([facility]) Hematocrit 29.7(L) 36.0 - 45.0 % 08/12/2024 12:32 PM EDT [facility] ([facility]) MCV 97.7 82.0 - 98.0 fL 08/12/2024 12:32 PM EDT [facility] ([facility]) MCH 29.3 27.0 - 33.0 pg 08/12/2024 12:32 PM EDT [facility] ([facility]) MCHC 30.0(L) 32.0 - 35.0 g/dL 08/12/2024 12:32 PM T [facility] ([facility]) RDW 15.4(H) 11.5 - 15.0 % 08/12/2024 12:32 PM T [facility] ([facility]) Neutrophils % 59.1 40.0 - 72.0 % 08/12/2024 12:32 PM T [facility] ([facility]) Lymphocytes % 26.7 20.0 - 45.0 % 08/12/2024 12:32 PM T [facility] ([facility]) Monocytes % 9.8 5.0 - 12.0 % 08/12/2024 12:32 PM T [facility] ([facility]) Eosinophils % 3.0 0.0 - 6.0 % 08/12/2024 12:32 PM T [facility] ([facility]) Basophils % 0.6 0.0 - 1.0 % 08/12/2024 12:32 PM T [facility] ([facility]) Neutrophils Absolute 5.35 1.60 - 7.60 10*3/uL 08/12/2024 12:32 PM T [facility] ([facility]) Lymphocytes Absolute 2.41 1.20 - 4.00 10*3/uL 08/12/2024 12:32 PM T [facility] ([facility]) Monocytes Absolute 0.89 0.10 - 1.00 10*3/uL 08/12/2024 12:32 PM T [facility] ([facility]) Eosinophils Absolute 0.27 0.00 - 0.50 10*3/uL 08/12/2024 12:32 PM T [facility] ([facility]) Basophils Absolute 0.05 0.00 - 0.20 10*3/uL 08/12/2024 12:32 PM T [facility] ([facility]) Platelets 627(H) 150 - 400 10*3/uL 08/12/2024 12:32 PM T [facility] ([facility]) nRBC % 0.0 0 % 08/12/2024 12:32 PM T [facility] ([facility]) Immature Granulocytes % 0.8 0.0 - 1.0 % 08/12/2024 12:32 PM EDT [facility] ([facility]) Immature Granulocytes Absolute 0.07 0.00 - 0.20 10*3/uL 08/12/2024 12:32 PM EDT [facility] ([facility]) Blood Venous blood specimen / Unknown 08/12/2024 3:35 AM EDT 08/12/2024 4:45 AM EDT us Rodolfo Maddox MD LAB BLOOD ORDERABLES Final Result [facility] ([facility]) [address] [place] [address] * (ABNORMAL) CBC (08/12/2024 3:35 AM EDT) Auto WBC 8.85 4.00 - 10.60 10*3/uL 08/12/2024 5:45 AM EDT [facility] ([facility]) RBC 3.03(L) 3.80 - 5.00 10*6/uL 08/12/2024 5:45 AM EDT [facility] ([facility]) Hemoglobin 9.0(L) 12.0 - 15.0 g/dL 08/12/2024 5:45 AM EDT [facility] ([facility]) Hematocrit 29.0(L) 36.0 - 45.0 % 08/12/2024 5:45 AM EDT [facility] ([facility]) MCV 95.7 82.0 - 98.0 fL 08/12/2024 5:45 AM EDT [facility] ([facility]) MCH 29.7 27.0 - 33.0 pg 08/12/2024 5:45 AM EDT [facility] ([facility]) MCHC 31.0(L) 32.0 - 35.0 g/dL 08/12/2024 5:45 AM EDT [facility] ([facility]) RDW 15.2(H) 11.5 - 15.0 % 08/12/2024 5:45 AM EDT [facility] ([facility]) Platelets 579(H) 150 - 400 10*3/uL 08/12/2024 5:45 AM EDT [facility] ([facility]) Blood Venous blood specimen / Unknown 08/12/2024 3:35 AM EDT 08/12/2024 4:45 AM EDT us Rodolfo Maddox MD LAB BLOOD ORDERABLES Final Result [facility] ([facility]) [address] [place] [address] documented in this encounter Visit Diagnoses Not on filedocumented in this encounter
--- OUTSIDE RECORDS SUMMARY | 2024-09-24 15:12 | XMS_ITS | Encounter Summary ---
Author Organization [facility] Address [address] [place] [address] Care Team Providers Care Financial Services Professional Name Role Phone Unavailable Primary Care Provider Unavailabl e Encounter Details Date Type Department Care Team (Late st Contact Info) Description 08/06/2024 Lab Requisition [facility] [address] [place] [id number] Rodolfo Maddox MD [facility] [place] [address] Social History Tobacco Use Types Packs/Day Years [...]
--- OUTSIDE RECORDS SUMMARY | 2024-09-24 15:12 | XMS_ITS | Encounter Summary ---
Author Organization [facility] Address [address] [place] [address] Care Team Providers Care Glass Cutting Machine Feeder Name Role Phone Unavailable Primary Care Provider Unavailabl e Encounter Details Date Type Department Care Team (Late st Contact Info) Description 08/05/2024 Lab Requisition [facility] [address] [place] [address] Rodolfo Maddox MD [address] [place] [address] Social History Tobacco Use Types Packs/Day Years [...] Priority Date/Time Associated Diagnosis Comments CBC Routine 08/06/2024 4:10 AM EDT TSH Routine 08/06/2024 4:10 AM EDT AMMONIA Routine 08/06/2024 4:10 AM EDT COMPREHENSIVE METABOLIC PANEL Routine 08/06/2024 4:10 AM EDT documented in this encounter Results * Ammonia (08/06/2024 4:10 AM EDT) Ammonia 40 18 - 72 umol/L 08/06/2024 5:35 AM EDT [facility] ([facility]) Blood Venous blood specimen / Unknown 08/06/2024 4:10 AM EDT 08/06/2024 4:53 AM EDT Rodolfo Maddox MD LAB BLOOD ORDERABLES Final Result Performing Organization Address City/[facility]/ZIP Co de Phone Number [facility]) [address] [place] [address] * TSH (08/06/2024 4:10 AM EDT) TSH 5.55 0.34 - 5.60 mIU/L 08/06/2024 5:54 AM EDT [facility] ([facility] Blood Venous blood specimen / Unknown 08/06/2024 4:10 AM EDT 08/06/2024 5:01 AM EDT Rodolfo Maddox MD LAB BLOOD ORDERABLES Final Result Performing Organization Address [facility] Co de Phone Number [facility] ([facility] [address] [place] [address] * (ABNORMAL) Comprehensive metabolic panel (08/06/2024 4:10 AM EDT) Sodium 142 136 - 145 mmol/L 08/06/2024 5:54 AM EDT [facility] ([facility] Potassium 4.3 3.5 - 5.1 mmol/L 08/06/2024 5:54 AM EDT [facility] ([facility] Chloride 106 98 - 107 mmol/L 08/06/2024 5:54 AM EDT [facility] ([facility] CO2 31 21 - 31 mmol/L 08/06/2024 5:54 AM EDT [facility] ([facility] Anion Gap 9 7 - 20 mmol/L 08/06/2024 5:54 AM EDT [facility] ([facility] BUN 12 7 - 25 mg/dL 08/06/2024 5:54 AM EDT [facility] ([facility])) Creatinine 0.82 0.60 - 1.20 mg/dL 08/06/2024 5:54 AM [facility] ([facility] BUN/Creatinine Ratio 14.6 07/15 5:54 AM [facility] ([facility] Glucose 106(H) 70 - 100 mg/dL 08/06/2024 5:54 AM [facility] ([facility] Calcium 7.6(L) 8.6 - 10.3 mg/dL 08/06/2024 5:54 AM [facility] ([facility] AST 21 13 - 39 U/L 08/06/2024 5:54 AM [facility] ([facility] ALT (SGPT) 9 7 - 52 U/L 08/06/2024 5:54 AM [facility] ([facility] Alkaline Phosphatase 104 34 - 104 U/L 08/06/2024 5:54 AM [facility] ([facility] Total Protein 5.9(L) 6.0 - 8.3 g/dL 08/06/2024 5:54 AM [facility] ([facility] Albumin 2.4(L) 3.5 - 5.7 g/dL 08/06/2024 5:54 AM [facility] ([facility] Total Bilirubin 0.3 0.3 - 1.0 mg/dL 08/06/2024 5:54 AM [facility] ([facility] eGFR 80.8 >60.0 mL/min/1. 73m*2 08/06/2024 5:54 AM [facility] ([facility])) Comment:[facility] s estimated glomerular filtration rate (eGFR) [...] individuals. Blood Venous blood specimen / Unknown 08/06/2024 4:10 AM EDT 08/06/2024 5:01 AM EDT us Rodolfo Maddox MD LAB BLOOD ORDERABLES Final Result [facility] ([facility])) [address] [place] [address] * (ABNORMAL) CBC (08/06/2024 4:10 AM EDT) Auto WBC 7.33 4.00 - 10.60 10*3/uL 08/06/2024 5:32 AM EDT [facility] ([facility] RBC 2.95(L) 3.80 - 5.00 10*6/uL 08/06/2024 5:32 AM EDT [facility] ([facility])) Hemoglobin 8.7(L) 12.0 - 15.0 g/dL 08/06/2024 5:32 AM EDT [facility] ([facility])) Hematocrit 28.8(L) 36.0 - 45.0 % 08/06/2024 5:32 AM EDT [facility] ([facility])) MCV 97.6 82.0 - 98.0 fL 08/06/2024 5:32 AM EDT [facility] ([facility])) MCH 29.5 27.0 - 33.0 pg 08/06/2024 5:32 AM EDT [facility] ([facility])) MCHC 30.2(L) 32.0 - 35.0 g/dL 08/06/2024 5:32 AM EDT [facility] ([facility])) RDW 15.1(H) 11.5 - 15.0 % 08/06/2024 5:32 AM EDT [facility] ([facility])) Platelets 476(H) 150 - 400 10*3/uL 08/06/2024 5:32 AM EDT [facility] ([facility] Blood Venous blood specimen / Unknown 08/06/2024 4:10 AM EDT 08/06/2024 5:01 AM EDT us Rodolfo Maddox MD LAB BLOOD ORDERABLES Final Result [facility] ([facility]) [address] [place] [address] documented in this encounter Visit Diagnoses Not on filedocumented in this encounter
--- OUTSIDE RECORDS SUMMARY | 2024-09-24 15:12 | XMS_ITS | Encounter Summary ---
Author Organization [facility] Address [address] [address] Care Team Providers Care Sample Grinder Name Role Phone Unavailable Primary Care Provider Unavailabl e Encounter Details Date Type Department Care Team (Late st Contact Info) Description 08/13/2024 Lab Requisition [facility] [address] [place] [phone] Rodolfo Maddox MD [address] [place] [address] Social History Tobacco Use Types Packs/Day Years [...] Priority Date/Time Associated Diagnosis Comments CBC Routine 08/14/2024 3:39 AM EDT BASIC METABOLIC PANEL Routine 08/14/2024 3:39 AM EDT documented in this encounter Results * (ABNORMAL) Basic metabolic panel (08/14/2024 3:39 AM EDT) Sodium 141 136 - 145 mmol/L 08/14/2024 5:19 AM EDT [facility] ([facility]) Potassium 3.5 3.5 - 5.1 mmol/L 08/14/2024 5:19 AM EDT [facility] ([facility]) Chloride 101 98 - 107 mmol/L 08/14/2024 5:19 AM EDT [facility] ([facility]) CO2 33(H) 21 - 31 mmol/L 08/14/2024 5:19 AM EDT [facility] ([facility]) BUN 9 7 - 25 mg/dL 08/14/2024 5:19 AM EDT [facility] ([facility]) Creatinine 0.75 0.60 - 1.20 mg/dL 08/14/2024 5:19 AM EDT [facility] ([facility]) Glucose 126(H) 70 - 100 mg/dL 08/14/2024 5:19 AM EDT [facility] ([facility]) Calcium 8.1(L) 8.6 - 10.3 mg/dL 08/14/2024 5:19 AM EDT [facility] ([facility]) Anion Gap 11 7 - 20 mmol/L 08/14/2024 5:19 AM EDT [facility] ([facility]) eGFR 90.0 >60.0 mL/min/1. 73m*2 08/14/2024 5:19 AM EDT [facility] ([facility]) Comment:The [facility] s estimated glomerular filtration rate (eGFR) will [...] any one group of individuals. BUN/Creatinine Ratio 12.0 03/2024 5:19 AM EDT [facility] ([facility]) Blood Venous blood specimen / Unknown Arterial Line / Unknown 08/14/2024 3:39 AM EDT 08/14/2024 4:37 AM EDT us Rodolfo Maddox MD LAB BLOOD ORDERABLES Final Result [facility]) [address] [place] [address] * (ABNORMAL) CBC (08/14/2024 3:39 AM EDT) Auto WBC 8.39 4.00 - 10.60 10*3/uL 08/14/2024 5:08 AM EDT [facility] ([facility]) RBC 3.20(L) 3.80 - 5.00 10*6/uL 08/14/2024 5:08 AM EDT [facility] ([facility]) Hemoglobin 9.4(L) 12.0 - 15.0 g/dL 08/14/2024 5:08 AM EDT [facility] ([facility]) Hematocrit 30.6(L) 36.0 - 45.0 % 08/14/2024 5:08 AM EDT [facility] ([facility]) MCV 95.6 82.0 - 98.0 fL 08/14/2024 5:08 AM EDT [facility] ([facility]) MCH 29.4 27.0 - 33.0 pg 08/14/2024 5:08 AM EDT [facility] ([facility]) MCHC 30.7(L) 32.0 - 35.0 g/dL 08/14/2024 5:08 AM EDT [facility] ([facility]) RDW 15.2(H) 11.5 - 15.0 % 08/14/2024 5:08 AM EDT [facility] ([facility]) Platelets 556(H) 150 - 400 10*3/uL 08/14/2024 5:08 AM EDT [facility] ([facility]) Blood Venous blood specimen / Unknown Arterial Line / Unknown 08/14/2024 3:39 AM EDT 08/14/2024 4:34 AM EDT us Rodolfo Maddox MD LAB BLOOD ORDERABLES Final Result [facility] ([place]) [address] [place] [address] documented in this encounter Visit Diagnoses Not on filedocumented in this encounter
--- OUTSIDE RECORDS SUMMARY | 2024-09-24 15:12 | XMS_ITS | Encounter Summary ---
Author Organization [facility] Address [address] [place] [address] Care Team Providers Care Glass Cleaner Name Role Phone Unavailable Primary Care Provider Unavailabl e Encounter Details Date Type Department Care Team (Late st Contact Info) Description 07/31/2024 Lab Requisition [facility] [address] [place] [phone] Rodolfo Maddox MD [address] [place] [address] Respiratory failure, unspecified, unspecified whether with hypoxia [...] Associated Diagnosis Comments BASIC METABOLIC PANEL Routine 08/01/2024 3:40 AM EDT Respiratory failure, unspecified, unspecified whether with hypoxia or hypercapnia (CMS/HCC) documented in this encounter Results * (ABNORMAL) Basic metabolic panel (08/01/2024 3:40 AM EDT) Sodium 145 136 - 145 mmol/L 08/01/2024 4:52 AM EDT [facility] ([facility]) Potassium 4.0 3.5 - 5.1 mmol/L 08/01/2024 4:52 AM EDT [facility] ([facility]) Chloride 113(H) 98 - 107 mmol/L 08/01/2024 4:52 AM EDT [facility] ([facility]) CO2 28 21 - 31 mmol/L 08/01/2024 4:52 AM EDT [facility] ([facility]) BUN 12 7 - 25 mg/dL 08/01/2024 4:52 AM EDT [facility] ([facility]) Creatinine 0.59(L) 0.60 - 1.20 mg/dL 08/01/2024 4:52 AM EDT [facility] ([facility]) Glucose 75 70 - 100 mg/dL 08/01/2024 4:52 AM EDT [facility] ([facility]) Calcium 7.8(L) 8.6 - 10.3 mg/dL 08/01/2024 4:52 AM EDT [facility] ([facility]) Anion Gap 8 7 - 20 mmol/L 08/01/2024 4:52 AM EDT [facility] ([facility]) eGFR 101.8 >60.0 mL/min/1. 73m*2 08/01/2024 4:52 AM EDT [facility] ([facility]) Comment:The [facility] s estimated glomerular filtration rate (eGFR) [...] any one group of individuals. BUN/Creatinine Ratio 20.3 07/14 4:52 AM EDT [facility] ([facility]) Blood Venous blood specimen / Unknown Venipuncture / Unknown 08/01/2024 3:40 AM EDT 08/01/2024 4:15 AM EDT us Rodolfo Maddox MD LAB BLOOD ORDERABLES Final Result [facility] ([facility]) [address] [place] [address] documented in this encounter Visit Diagnoses Diagnosis Respiratory failure, unspecified, unspecified whether with hypoxia or hypercapnia (CMS/HCC) documented in this encounter
--- OUTSIDE RECORDS SUMMARY | 2024-09-24 15:12 | XMS_ITS | Encounter Summary ---
Author Organization [facility] Address [address] [place] [address] Care Team Providers Care Paratransit Driver Name Role Phone Candida Brown CORE MACHINE OPERATOR Unavailable [phone] Mark Singh MD Primary Care Provider [phone] aMrk Singh MD Primary Care Provider [phone] Unallocated, Noms Provider Primary Care Provi alice Mark Singh MD Primary Care Provider [phone] Encounter Details Date Type Department Care Team (Late st Contact Info) Description 02/08/2023 Abstract [facility] [address] [place] [phone] Candida Brown, CORE MACHINE OPERATOR [address] [place] [address] Social History Tobacco Use Types Packs/Day Years [...] on filedocumented in this encounter Care Teams Paratransit Driver Relationship Specialty Start Date End Date Mark Singh MD [address] [place] [phone] PCP - General Family Medicine 12/14/22 03/02/23 Mark Singh MD [address] [place] [phone] PCP - General Family Medicine 03/03/23 12/05/23 Unallocated, Noms MD Caroline [address] [place] [address] PCP - General Family Medicine 12/06/23 12/13/23 Mark Singh MD [address] [place] [phone] PCP - General Family Medicine 12/14/23 Candida Brown NP [address] [place] [phone] Nurse Practitioner Family Medicine 11/13/22 documented as of this encounter
--- OUTSIDE RECORDS SUMMARY | 2024-09-24 15:12 | XMS_ITS | Encounter Summary ---
Author Organization [facility] Address [address] [place] [address] Care Team Providers Care Tube Turner Name Role Phone Unavailable Primary Care Provider Unavailabl e Encounter Details Date Type Department Care Team (Late st Contact Info) Description 08/17/2024 Lab Requisition [facility] [address] [place] [phone] Rodolfo Maddox MD [address] [place], [place] [phone] Social History Tobacco Use Types Packs/Day Years [...] Priority Date/Time Associated Diagnosis Comments CBC Routine 08/17/2024 3:59 AM EDT COMPREHENSIVE METABOLIC PANEL Routine 08/17/2024 3:59 AM EDT documented in this encounter Results * (ABNORMAL) CBC (08/17/2024 3:59 AM EDT) Auto WBC 7.87 4.00 - 10.60 10*3/uL 08/17/2024 6:20 AM EDT [facility] ([facility]) RBC 3.12(L) 3.80 - 5.00 10*6/uL 08/17/2024 6:20 AM EDT [facility] ([facility]) Hemoglobin 9.2(L) 12.0 - 15.0 g/dL 08/17/2024 6:20 AM EDT [facility] ([facility]) Hematocrit 29.7(L) 36.0 - 45.0 % 08/17/2024 6:20 AM EDT [facility] ([facility]) MCV 95.2 82.0 - 98.0 fL 08/17/2024 6:20 AM EDT [facility] ([facility]) MCH 29.5 27.0 - 33.0 pg 08/17/2024 6:20 AM EDT [facility] ([facility]) MCHC 31.0(L) 32.0 - 35.0 g/dL 08/17/2024 6:20 AM EDT [facility] ([facility]) RDW 15.4(H) 11.5 - 15.0 % 08/17/2024 6:20 AM EDT [facility] ([facility]) Platelets 495(H) 150 - 400 10*3/uL 08/17/2024 6:20 AM EDT [facility] ([facility]) Blood Venous blood specimen / Unknown 08/17/2024 3:59 AM EDT 08/17/2024 5:36 AM EDT us Rodolfo Maddox MD LAB BLOOD ORDERABLES Final Result [facility] ([facility]) [address] [place] [address] * (ABNORMAL) Comprehensive metabolic panel (08/17/2024 3:59 AM EDT) Sodium 142 136 - 145 mmol/L 08/17/2024 6:18 AM EDT [facility] ([facility]) Potassium 4.0 3.5 - 5.1 mmol/L 08/17/2024 6:18 AM EDT [facility] ([facility]) Chloride 103 98 - 107 mmol/L 08/17/2024 6:18 AM EDT [facility] ([facility]) CO2 34(H) 21 - 31 mmol/L 08/17/2024 6:18 AM [email or web address] ([facility]) Anion Gap 9 7 - 20 mmol/L 08/17/2024 6:18 AM [facility] [[email or web address]] LAB ([facility]) BUN 9 7 - 25 mg/dL 08/17/2024 6:18 AM [facility] [email or web address] LAB ([facility]) Creatinine 0.81 0.60 - 1.20 mg/dL 08/17/2024 6:18 AM [facility] [[email or web address]] LAB ([facility]) BUN/Creatinine Ratio 11.1 06/2024 6:18 AM [facility] [[email or web address]] LAB ([facility]) Glucose 100 70 - 100 mg/dL 08/17/2024 6:18 AM [facility] [[email or web address]] LAB ([facility]) Calcium 7.9(L) 8.6 - 10.3 mg/dL 08/17/2024 6:18 AM [facility] [[email or web address] LAB ([facility]) AST 14 13 - 39 U/L 08/17/2024 6:18 AM [facility] [[email or web address] LAB ([facility]) ALT (SGPT) 6(L) 7 - 52 U/L 08/17/2024 6:18 AM [facility] [email or web address] LAB ([facility]) Alkaline Phosphatase 117(H) 34 - 104 U/L 08/17/2024 6:18 AM [facility] [[email or web address] LAB ([facility]) Total Protein 5.6(L) 6.0 - 8.3 g/dL 08/17/2024 6:18 AM [facility] [[email or web address] LAB ([facility]) Albumin 2.4(L) 3.5 - 5.7 g/dL 08/17/2024 6:18 AM [facility] [email or web address] LAB ([facility]) Total Bilirubin 0.3 0.3 - 1.0 mg/dL 08/17/2024 6:18 AM [facility] [[email or web address]] LAB ([facility]) eGFR 82.0 >60.0 mL/min/1. 73m*2 08/17/2024 6:18 AM [facility] [[email or web address] ([facility]) Comment:[facility] s estimated glomerular filtration rate (eGFR) [...] individuals. Blood Venous blood specimen / Unknown 08/17/2024 3:59 AM EDT 08/17/2024 5:36 AM EDT us Rodolfo Maddox MD LAB BLOOD ORDERABLES Final Result [facility] ([facility]) [address] [place], [place] [id number] documented in this encounter Visit Diagnoses Not on filedocumented in this encounter
--- OUTSIDE RECORDS SUMMARY | 2024-09-24 15:12 | XMS_ITS | Encounter Summary ---
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 Name Role Phone Unavailable Primary Care Provider Unavailabl e Encounter Details Date Type Department Care Team (Late st Contact Info) Description 08/06/2024 Lab Requisition [facility] [address] [place] [id number] Rodolfo Maddox MD [address] [place] [id number] Social History Tobacco Use Types Packs/Day Years [...] Procedure Name Priority Date/Time Associated Diagnosis Comments AMMONIA Routine 08/07/2024 7:14 AM EDT CBC WITH AUTO DIFFERENTIAL Routine 08/07/2024 3:47 AM EDT CBC AND DIFFERENTIAL Routine 08/07/2024 3:47 AM EDT PHOSPHORUS Routine 08/07/2024 3:47 AM EDT MAGNESIUM Routine 08/07/2024 3:47 AM EDT COMPREHENSIVE METABOLIC PANEL Routine 08/07/2024 3:47 AM EDT documented in this encounter Results * Ammonia (08/07/2024 7:14 AM EDT) Ammonia 33 18 - 72 umol/L 08/07/2024 8:20 AM EDT [facility] ([facility]) Blood Venous blood specimen / Unknown Venipuncture / Unknown 08/07/2024 7:14 AM EDT 08/07/2024 4:50 AM EDT us Rodolfo Maddox MD LAB BLOOD ORDERABLES Final Result [facility] ([facility]) [address] [place] [address] * (ABNORMAL) CBC auto differential (08/07/2024 3:47 AM EDT) Auto WBC 5.91 4.00 - 10.60 10*3/uL 08/07/2024 5:03 AM EDT [facility] ([facility]) RBC 3.28(L) 3.80 - 5.00 10*6/uL 08/07/2024 5:03 AM EDT [facility] ([facility]) Hemoglobin 9.7(L) 12.0 - 15.0 g/dL 08/07/2024 5:03 AM EDT [facility] ([facility]) Hematocrit 31.8(L) 36.0 - 45.0 % 08/07/2024 5:03 AM EDT [facility] ([facility]) MCV 97.0 82.0 - 98.0 fL 08/07/2024 5:03 AM EDT [facility] ([facility]) MCH 29.6 27.0 - 33.0 pg 08/07/2024 5:03 AM EDT [facility] ([facility]) MCHC 30.5(L) 32.0 - 35.0 g/dL 08/07/2024 5:03 AM EDT [facility] ([facility]) RDW 15.2(H) 11.5 - 15.0 % 08/07/2024 5:03 AM EDT [facility] ([facility]) Neutrophils % 49.8 40.0 - 72.0 % 08/07/2024 5:03 AM [facility] ([facility]) Lymphocytes % 29.8 20.0 - 45.0 % 08/07/2024 5:03 AM [facility] ([facility]) Monocytes % 16.9(H) 5.0 - 12.0 % 08/07/2024 5:03 AM [facility] ([facility]) Eosinophils % 2.4 0.0 - 6.0 % 08/07/2024 5:03 AM [facility] ([facility]) Basophils % 0.8 0.0 - 1.0 % 08/07/2024 5:03 AM [facility] ([facility]) Neutrophils Absolute 2.94 1.60 - 7.60 10*3/uL 08/07/2024 5:03 AM [facility] ([facility]) Lymphocytes Absolute 1.76 1.20 - 4.00 10*3/uL 08/07/2024 5:03 AM [facility] ([facility]) Monocytes Absolute 1.00 0.10 - 1.00 10*3/uL 08/07/2024 5:03 AM [facility] ([facility]) Eosinophils Absolute 0.14 0.00 - 0.50 10*3/uL 08/07/2024 5:03 AM [facility] ([facility]) Basophils Absolute 0.05 0.00 - 0.20 10*3/uL 08/07/2024 5:03 AM [facility] ([facility]) Platelets 420(H) 150 - 400 10*3/uL 08/07/2024 5:03 AM [facility] ([facility]) nRBC % 0.0 0 % 08/07/2024 5:03 AM [facility] ([facility]) Immature Granulocytes % 0.3 0.0 - 1.0 % 08/07/2024 5:03 AM [facility] ([facility]) Immature Granulocytes Absolute 0.02 0.00 - 0.20 10*3/uL 08/07/2024 5:03 AM [facility] ([facility]) Blood Venous blood specimen / Unknown Venipuncture / Unknown 08/07/2024 3:47 AM EDT 08/07/2024 4:36 AM EDT us Rodolfo Maddox MD LAB BLOOD ORDERABLES Final Result [facility] ([facility]) [address] [place] [address] * (ABNORMAL) Comprehensive metabolic panel (08/07/2024 3:47 AM EDT) Sodium 140 136 - 145 mmol/L 08/07/2024 8:23 AM EDT [facility] ([facility]) Potassium 4.3 3.5 - 5.1 mmol/L 08/07/2024 8:23 AM EDT [facility] ([facility]) Comment:M-CHEMISTRY SPECIMEN MODERATELY HEMOLYZED RESULTS MAY NOT BE ACCURATE Chloride 105 98 - 107 mmol/L 08/07/2024 8:23 AM EDT [facility] ([facility]) CO2 29 21 - 31 mmol/L 08/07/2024 8:23 AM EDT [facility] ([facility]) Anion Gap 10 7 - 20 mmol/L 08/07/2024 8:23 AM EDT [facility] ([facility]) BUN 10 7 - 25 mg/dL 08/07/2024 8:23 AM EDT [facility] ([facility]) Creatinine 0.73 0.60 - 1.20 mg/dL 08/07/2024 8:23 AM EDT [facility] ([facility]) BUN/Creatinine Ratio 13.7 07/15 8:23 AM T [facility] ([facility]) Glucose 85 70 - 100 mg/dL 08/07/2024 8:23 AM EDT [facility] ([facility]) Calcium 7.8(L) 8.6 - 10.3 mg/dL 08/07/2024 8:23 AM EDT [facility] ([facility]) AST 30 13 - 39 U/L 08/07/2024 8:23 AM EDT [facility] ([facility]) Comment:M-CHEMISTRY SPECIMEN MODERATELY HEMOLYZED RESULTS MAY NOT BE ACCURATE ALT (SGPT) 8 7 - 52 U/L 08/07/2024 8:23 AM EDT [facility] ([facility]) Alkaline Phosphatase 115(H) 34 - 104 U/L 08/07/2024 8:23 AM EDT [facility] ([facility]) Total Protein 5.6(L) 6.0 - 8.3 g/dL 08/07/2024 8:23 AM EDT [facility] ([facility]) Albumin 2.3(L) 3.5 - 5.7 g/dL 08/07/2024 8:23 AM EDT [facility] ([facility]) Total Bilirubin 0.4 0.3 - 1.0 mg/dL 08/07/2024 8:23 AM EDT [facility] ([facility]) eGFR 92.9 >60.0 mL/min/1. 73m*2 08/07/2024 8:23 AM EDT [facility] ([facility]) Comment:[facility] s estimated glomerular filtration rate (eGFR) [...] blood specimen / Unknown Venipuncture / Unknown 08/07/2024 3:47 AM EDT 08/07/2024 4:36 AM EDT us Rodolfo Maddox MD LAB BLOOD ORDERABLES Final Result [facility]) [address] [place] [address] * Phosphorus (08/07/2024 3:47 AM EDT) Phosphorus 3.4 2.5 - 5.0 mg/dL 08/07/2024 5:39 AM EDT [facility] ([facility]) Blood Venous blood specimen / Unknown Venipuncture / Unknown 08/07/2024 3:47 AM EDT 08/07/2024 4:36 AM EDT us Rodolfo Maddox MD LAB BLOOD ORDERABLES Final Result [facility] ([facility]) [address] [place], [place] [id number] * (ABNORMAL) Magnesium (08/07/2024 3:47 AM EDT) Magnesium 1.5(L) 1.9 - 2.7 mg/dL 08/07/2024 5:39 AM EDT [facility] ([facility]) Blood Venous blood specimen / Unknown Venipuncture / Unknown 08/07/2024 3:47 AM EDT 08/07/2024 4:36 AM EDT us Rodolfo Maddox MD LAB BLOOD ORDERABLES Final Result [facility] ([facility]) [address] [place] [address] documented in this encounter Visit Diagnoses Not on filedocumented in this encounter
--- OUTSIDE RECORDS SUMMARY | 2024-09-24 15:12 | XMS_ITS | Clinical Summary ---
Author Organization [facility] Address [address] [facility], [address] [place] [address] Care Team Providers Care Cross Tie Cutter Name Role Phone Candida Brown APRN, NP Primary Care Provide r Allergies Active Allergy Reactions Criticality Noted Date Comments Amoxicillin 09/02/2022 Pt can't recall the reaction type Latex Rash Low 07/20/2024 Penicillins 09/02/2022 Medications pravastatin (PRAVACHOL) 20 MG tablet Take 1 tablet by mouth daily Active hydroCHLOROthi azide (HYDRODIURIL) 25 MG tablet Take 1 tablet by mouth daily Active lisinopril (PRINIVIL;ZEST RIL) 5 MG tablet Take 1 tablet by mouth daily Active glipiZIDE (GLUCOTROL) 10 MG tablet Take 1 tablet by mouth 2 times daily Active magnesium oxide (MAG-OX) 400 (240 Mg) MG tablet Take 1 tablet by mouth daily Active midodrine (PROAMATINE) 5 MG tablet Take 2 tablets by mouth 3 times daily Active omeprazole (PRILOSEC) 20 MG delayed release capsule Take 1 capsule by mouth daily Active enoxaparin Sodium (LOVENOX) 30 MG/0.3ML injection Inject 0.3 mLs into the skin 2 times daily 5 Active gabapentin (NEURONTIN) 300 MG capsule Take 1 capsule by mouth every 8 hours for 14 days. 5 Active insulin lispro (HUMALOG,ADMEL OG) 100 UNIT/ML SOLN injection vial Inject 0-16 Units into the skin 3 times daily (before meals) 5 Active sennosides-doc usate sodium (SENOKOT-S) 8.6-50 MG tablet Take 2 tablets by mouth in the morning and at bedtime 5 Active insulin glargine (LANTUS SOLOSTAR) 100 UNIT/ML injection pen Inject 20 Units into the skin 2 times daily 5 Active PARoxetine (PAXIL) 20 MG tablet Take 1 tablet by mouth daily 5 Active ibuprofen (ADVIL;MOTRIN) 600 MG tablet Take 1 tablet by mouth every 6 hours as needed for Fever 5 Active polyethylene glycol (GLYCOLAX) 17 g packet Take 1 packet by mouth daily 5 025 meropenem (MERREM) infusion Infuse 1,000 mg intravenously in the morning and 1,000 mg at noon and 1,000 mg in the evening. Till 08/28/24 ( choice of meropenem due to PNC allergy ) - cbc diff creat weekly - Compound per protocol.. 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 [address] [place] [id number] Kash Garcia MD 09/16/2024 Telephone [facility] General Surgery [address] [facility] [facility] [address] [place] [address] Caitlin Briseno MD Follow-Up from Hospital 07/26/2024 12:39 PM EDT Anesthesia Event [facility] [address] [place] [address] Mike Tierney MD Nichols, Megan, APRN - [facility] 07/26/2024 12:00 PM EDT - 07/26/2024 1:25 PM EDT Surgery [facility] [address] [place] [address] Jethro Whalen MD LEFT BUTTOCKS ULCER DEBRIDEMENT 07/22/2024 2:04 PM EDT Anesthesia Event [facility] OR [address] [place] [address] Mike Tierney MD Stein, Andrew, MD 07/22/2024 1:50 PM EDT - 07/22/2024 3:58 PM EDT Surgery [facility] OR [address] [place] [address] Caitlin Briseno MD SHARP EXCISION OF SACRAL WOUND DOWN TO MUSCLE 07/20/2024 3:09 PM EDT Anesthesia Event [facility] OR [address] [place] [address] Michael Maldonado MD 07/20/2024 1:20 PM EDT - 07/20/2024 3:01 PM EDT Surgery [facility] [address] [place] [address] Janak Martin MD LEFT BUTTOCK DEBRIDEMENT 07/19/2024 8:55 PM EDT Anesthesia Event [facility] [address] [place] [address] Allen Pearl MD 07/19/2024 7:30 PM EDT - 07/19/2024 8:53 PM EDT Surgery [facility] [address] [place] [address] Alisia Cuellar MD E2 [id number] DEBRIDEMENT DOWN TO AND INCLUDING MUSCLE AND FASCIA LEFT BUTTOCK AND GROIN 07/19/2024 6:09 PM EDT - 07/30/2024 5:39 PM EDT Hospital Encounter [facility] [address] [place] [id number] Rodolfo Bray DO Sullivan, Rachael C, MD Necrotizing fasciitis (HCC) (Primary Dx); Necrotizing soft tissue infection; Congestive heart failure, unspecified HF chronicity, unspecified heart failure type (HCC) Discharge Disposition: [facility] from Last 3 Months Social History Tobacco Use Types Packs/Day Years Used Date Smoking Tobacco: Every Day Cigarettes Last attempted to quit: 08/11/2022 Passive Smoke Exposure: Past Smokeless Tobacco: Never Tobacco Cessation:Ready to Q uit: No; Counseling Given: Yes Alcohol Use Standard Drinks/Week Comments Never 0 (1 standard drink = 0.6 oz pur e alcohol) Interpersonal Safety Domain Source: IP Abuse Scr eening Answer Date Recorded Physical abuse Denies 07/19/2024 Verbal abuse Denies 07/19/2024 Emotional abuse Denies 07/19/2024 Financial abuse Denies 07/19/2024 Sexual abuse Denies 07/19/2024 Comments Unknown Sex and Gender Information Value Date Recorded Sex Assigned at Not on file Legal Sex Female 9:11 PM EDT Gender Identity Not on file Sexual Orientation Not on file Last Filed Vital Signs Vital Sign Reading Time Taken Comments Blood Pressure 140/62 07/30/2024 5:00 PM EDT Pulse 77 07/30/2024 5:00 PM EDT Temperature 37.3 C (99.1 F) 07/30/2024 5:00 PM EDT Respiratory Rate 22 07/30/2024 5:00 PM EDT Oxygen Saturation 96% 07/30/2024 5:00 PM EDT Inhaled Oxygen Concentration - - Weight 145.9 kg (321 lb 10.4 oz) 07/30/2024 4:11 AM EDT Height 157.5 cm (5' 2.01 ) 07/23/2024 2:07 PM ED T Body Mass Index 58.82 07/23/2024 2:07 PM EDT Plan of Treatment Upcoming Encounters Date Type Department Care Team (Late st Contact Info) Description 10/07/2024 2:15 PM EDT Appointment [facility] [address] [place] [address] [place] [id number] [facility] [address] [place] [id number] sacral wound - stretcher ([facility]) Health Maintenance Due Date Last Done Comments [...] - Risk 60-74 years 1-dose series) 2021 COVID-19 Vaccine ( season) 2023 01/03/2021, 06/29/2020, 06/04/2020 Annual Wellness Visit (Medicare Advantage) 02/14/2024 Flu vaccine (#1) 09/13/2024 12/06/2023, , 01/03/2021 A1C test (Diabetic or Prediabetic) 10/24/2024 07/24/2024, 09/02/2022 GFR test (Diabetes, CKD 3-4, OR last GFR 15-59) 07/30/2025 07/30/2024, 07/29/2024, 07/28/2024, Additional history exists Diabetes screen Discontinued 07/24/2024, 09/02/2022 Hepatitis A vaccine Aged Out No [...] Procedure Name Priority Date/Time Associated Diagnosis Comments XR ABDOMEN FOR NG/OG/NE TUBE PLACEMENT STAT 07/30/2024 2:40 PM EDT POC GLUCOSE FINGERSTICK Routine 07/30/2024 11:17 AM EDT POC GLUCOSE FINGERSTICK Routine 07/30/2024 8:23 AM EDT POC GLUCOSE FINGERSTICK Routine 07/30/2024 4:09 AM EDT PHOSPHORUS Routine 07/30/2024 3:36 AM EDT MAGNESIUM Routine 07/30/2024 3:36 AM EDT CBC WITH AUTO DIFFERENTIAL Routine 07/30/2024 3:36 AM EDT BASIC METABOLIC PANEL W/ REFLEX TO MG FOR LOW K Routine 07/30/2024 3:36 AM EDT POC GLUCOSE FINGERSTICK Routine 07/30/2024 12:12 AM EDT POC GLUCOSE FINGERSTICK Routine 07/29/2024 7:22 PM EDT POCT GLUCOSE Routine 07/29/2024 1:54 PM EDT LACTIC ACID,POINT OF CARE Routine 07/29/2024 1:54 PM EDT ARTERIAL BLOOD GAS, POC Routine 07/29/2024 1:54 PM EDT POC GLUCOSE FINGERSTICK Routine 07/29/2024 11:59 AM EDT POC GLUCOSE FINGERSTICK Routine 07/29/2024 7:25 AM EDT XR CHEST PORTABLE Routine 07/29/2024 5:2 5 AM EDT BLOOD BANK SPECIMEN Routine 07/29/2024 5 :05 AM EDT TYPE AND SCREEN Routine 07/29/2024 5:05 AM EDT PHOSPHORUS Routine 07/29/2024 5:05 AM EDT MAGNESIUM Routine 07/29/2024 5:05 AM EDT CBC WITH AUTO DIFFERENTIAL Routine 07/29/2024 5:05 AM EDT CALCIUM, IONIZED Routine 07/29/2024 5:05 AM EDT C-REACTIVE PROTEIN Routine 07/29/2024 5: 05 AM EDT BASIC METABOLIC PANEL W/ REFLEX TO MG FOR LOW K Routine 07/29/2024 5:05 AM EDT POC GLUCOSE FINGERSTICK Routine 07/29/2024 3:56 AM EDT POC GLUCOSE FINGERSTICK Routine 07/28/2024 11:21 PM EDT POC GLUCOSE FINGERSTICK Routine 07/28/2024 8:39 PM EDT EKG 12-LEAD Routine 07/28/2024 7:31 PM EDT POC GLUCOSE FINGERSTICK Routine 07/28/2024 7:28 PM EDT POC GLUCOSE FINGERSTICK Routine 07/28/2024 6:17 PM EDT EXTUBATION Routine 07/28/2024 1:23 PM EDT POCT GLUCOSE Routine 07/28/2024 6:26 AM EDT LACTIC ACID,POINT OF CARE Routine 07/28/2024 6:26 AM EDT ARTERIAL BLOOD GAS, POC Routine 07/28/2024 6:26 AM EDT XR CHEST PORTABLE Routine 07/28/2024 5:2 7 AM EDT C-REACTIVE PROTEIN Routine 07/28/2024 5: 25 AM EDT PHOSPHORUS [employer] Label Print 07/28/2024 5:25 AM EDT MAGNESIUM [employer] Label Print 07/28/2024 5:25 AM EDT CBC WITH AUTO DIFFERENTIAL [employer] Label Print 07/28/2024 5:25 AM EDT CALCIUM, IONIZED [employer] Label Print 07/28/2024 5:25 AM EDT BASIC METABOLIC PANEL W/ REFLEX TO MG FOR LOW K [employer] Label Print 07/28/2024 5:25 AM EDT POC GLUCOSE FINGERSTICK Routine 07/28/2024 5:05 AM EDT POC GLUCOSE FINGERSTICK Routine 07/28/2024 2:01 AM EDT POC GLUCOSE FINGERSTICK Routine 07/27/2024 10:00 PM EDT POC GLUCOSE FINGERSTICK Routine 07/27/2024 3:17 PM EDT POC GLUCOSE FINGERSTICK Routine 07/27/2024 11:10 AM EDT POCT GLUCOSE Routine 07/27/2024 6:00 AM EDT LACTIC ACID,POINT OF CARE Routine 07/27/2024 6:00 AM EDT ARTERIAL BLOOD GAS, POC Routine 07/27/2024 6:00 AM EDT XR CHEST PORTABLE Routine 07/27/2024 4:4 8 AM EDT PHOSPHORUS [employer] Label Print 07/27/2024 3:16 AM EDT MAGNESIUM [employer] Label Print 07/27/2024 3:16 AM EDT CBC WITH AUTO DIFFERENTIAL [employer] Label Print 07/27/2024 3:16 AM EDT CALCIUM, IONIZED [employer] Label Print 07/27/2024 3:16 AM EDT BASIC METABOLIC PANEL W/ REFLEX TO MG FOR LOW K [employer] Label Print 07/27/2024 3:16 AM EDT POC GLUCOSE FINGERSTICK Routine 07/27/2024 3:14 AM EDT POC GLUCOSE FINGERSTICK Routine 07/26/2024 11:51 PM EDT POC GLUCOSE FINGERSTICK Routine 07/26/2024 7:55 PM EDT MAGNESIUM Stat [employer] Label print 07/26/2024 4:05 PM EDT BASIC METABOLIC PANEL Stat [employer] Label print 07/26/2024 4:05 PM EDT POC GLUCOSE FINGERSTICK Routine 07/26/2024 4:00 PM EDT CBC Stat [employer] Label print 07/26/2024 3:56 PM EDT XR CHEST PORTABLE STAT 07/26/2024 3:1 5 PM EDT POCT GLUCOSE Routine 07/26/2024 2:59 PM EDT ARTERIAL BLOOD GAS, POC Routine 07/26/2024 2:59 PM EDT DECUBITUS ULCER DEBRIDEMENT REPAIR 07/26/2024 12:39 PM EDT Necrotizing fasciitis (HCC) POC GLUCOSE FINGERSTICK Routine 07/26/2024 11:57 AM EDT POC GLUCOSE FINGERSTICK Routine 07/26/2024 11:09 AM EDT POC GLUCOSE FINGERSTICK Routine 07/26/2024 10:13 AM EDT POC GLUCOSE FINGERSTICK Routine 07/26/2024 8:58 AM EDT POC GLUCOSE FINGERSTICK Routine 07/26/2024 8:03 AM EDT POC GLUCOSE FINGERSTICK Routine 07/26/2024 6:55 AM EDT HEMOGLOBIN AND HEMATOCRIT [employer] Label Print 07/26/2024 6:38 AM EDT POC GLUCOSE FINGERSTICK Routine 07/26/2024 5:57 AM EDT XR CHEST PORTABLE Routine 07/26/2024 5:4 1 AM EDT POCT GLUCOSE Routine 07/26/2024 5:35 AM EDT LACTIC ACID,POINT OF CARE Routine 07/26/2024 5:35 AM EDT ARTERIAL BLOOD GAS, POC Routine 07/26/2024 5:35 AM EDT POC GLUCOSE FINGERSTICK Routine 07/26/2024 4:57 AM EDT TRANSFUSE RED BLOOD CELLS Routine 07/26/2024 4:35 AM EDT PHOSPHORUS [employer] Label Print 07/26/2024 4:02 AM EDT MAGNESIUM [employer] Label Print 07/26/2024 4:02 AM EDT CBC WITH AUTO DIFFERENTIAL [employer] Label Print 07/26/2024 4:02 AM EDT CALCIUM, IONIZED [employer] Label Print 07/26/2024 4:02 AM EDT BASIC METABOLIC PANEL W/ REFLEX TO MG FOR LOW K [employer] Label Print 07/26/2024 4:02 AM EDT POC GLUCOSE FINGERSTICK Routine 07/26/2024 3:59 AM EDT POC GLUCOSE FINGERSTICK Routine 07/26/2024 2:58 AM EDT POC GLUCOSE FINGERSTICK Routine 07/26/2024 2:02 AM EDT POC GLUCOSE FINGERSTICK Routine 07/26/2024 1:01 AM EDT POC GLUCOSE FINGERSTICK Routine 07/25/2024 11:58 PM EDT POC GLUCOSE FINGERSTICK Routine 07/25/2024 10:56 PM EDT POC GLUCOSE FINGERSTICK Routine 07/25/2024 9:58 PM EDT POC GLUCOSE FINGERSTICK Routine 07/25/2024 9:01 PM EDT POC GLUCOSE FINGERSTICK Routine 07/25/2024 8:04 PM EDT POC GLUCOSE FINGERSTICK Routine 07/25/2024 6:49 PM EDT POC GLUCOSE FINGERSTICK Routine 07/25/2024 6:16 PM EDT POC GLUCOSE FINGERSTICK Routine 07/25/2024 5:03 PM EDT POC GLUCOSE FINGERSTICK Routine 07/25/2024 3:56 PM EDT POC GLUCOSE FINGERSTICK Routine 07/25/2024 3:05 PM EDT POC GLUCOSE FINGERSTICK Routine 07/25/2024 2:08 PM EDT POC GLUCOSE FINGERSTICK Routine 07/25/2024 1:10 PM EDT POC GLUCOSE FINGERSTICK Routine 07/25/2024 12:[address] CHEST ABDOMEN PELVIS W CONTRAST STAT 07/25/2024 12:01 PM EDT POC GLUCOSE FINGERSTICK Routine 07/25/2024 11:04 AM EDT CULTURE, BLOOD 2 STAT 07/25/2024 10:3 8 AM EDT CULTURE, BLOOD 1 STAT 07/25/2024 10:3 0 AM EDT POC GLUCOSE FINGERSTICK Routine 07/25/2024 10:06 AM EDT POC GLUCOSE FINGERSTICK Routine 07/25/2024 9:19 AM EDT POC GLUCOSE FINGERSTICK Routine 07/25/2024 8:04 AM EDT POC GLUCOSE FINGERSTICK Routine 07/25/2024 6:56 AM EDT POC GLUCOSE FINGERSTICK Routine 07/25/2024 6:03 AM EDT POCT GLUCOSE Routine 07/25/2024 5:25 AM EDT LACTIC ACID,POINT OF CARE Routine 07/25/2024 5:25 AM EDT ARTERIAL BLOOD GAS, POC Routine 07/25/2024 5:25 AM EDT PHOSPHORUS [employer] Label Print 07/25/2024 5:08 AM EDT MAGNESIUM [employer] Label Print 07/25/2024 5:08 AM EDT CBC WITH AUTO DIFFERENTIAL [employer] Label Print 07/25/2024 5:08 AM EDT CALCIUM, IONIZED [employer] Label Print 07/25/2024 5:08 AM EDT BASIC METABOLIC PANEL W/ REFLEX TO MG FOR LOW K [employer] Label Print 07/25/2024 5:08 AM EDT POC GLUCOSE FINGERSTICK Routine 07/25/2024 5:02 AM EDT XR CHEST PORTABLE Routine 07/25/2024 4:5 6 AM EDT POC GLUCOSE FINGERSTICK Routine 07/25/2024 3:58 AM EDT POC GLUCOSE FINGERSTICK Routine 07/25/2024 3:06 AM EDT POC GLUCOSE FINGERSTICK Routine 07/25/2024 1:57 AM EDT POC GLUCOSE FINGERSTICK Routine 07/25/2024 1:10 AM EDT POC GLUCOSE FINGERSTICK Routine 07/25/2024 12:08 AM EDT POC GLUCOSE FINGERSTICK Routine 07/24/2024 11:03 PM EDT XR CHEST PORTABLE STAT 07/24/2024 10: 51 PM EDT PHOSPHORUS STAT 07/24/2024 9:40 PM EDT MAGNESIUM STAT 07/24/2024 9:40 PM EDT CBC WITH AUTO DIFFERENTIAL STAT 07/24/2024 9:40 PM EDT CALCIUM, IONIZED STAT 07/24/2024 9:40 PM EDT BASIC METABOLIC PANEL STAT 07/24/2024 9:40 PM EDT POC GLUCOSE FINGERSTICK Routine 07/24/2024 9:10 PM EDT POC GLUCOSE FINGERSTICK Routine 07/24/2024 7:07 PM EDT POC GLUCOSE FINGERSTICK Routine 07/24/2024 6:07 PM EDT POC GLUCOSE FINGERSTICK Routine 07/24/2024 5:05 PM EDT POC GLUCOSE FINGERSTICK Routine 07/24/2024 4:29 PM EDT POC GLUCOSE FINGERSTICK Routine 07/24/2024 3:13 PM EDT POC GLUCOSE FINGERSTICK Routine 07/24/2024 2:37 PM EDT POC GLUCOSE FINGERSTICK Routine 07/24/2024 1:19 PM EDT POC GLUCOSE FINGERSTICK Routine 07/24/2024 12:01 PM EDT POC GLUCOSE FINGERSTICK Routine 07/24/2024 11:14 AM EDT TYPE AND SCREEN [employer] Label Print 07/24/2024 8:57 AM EDT POC GLUCOSE FINGERSTICK Routine 07/24/2024 7:33 AM EDT POCT GLUCOSE Routine 07/24/2024 5:53 AM EDT LACTIC ACID,POINT OF CARE Routine 07/24/2024 5:53 AM EDT ARTERIAL BLOOD GAS, POC Routine 07/24/2024 5:53 AM EDT HEMOGLOBIN A1C Routine 07/24/2024 5:24 AM EDT PHOSPHORUS [employer] Label Print 07/24/2024 5:24 AM EDT MAGNESIUM [employer] Label Print 07/24/2024 5:24 AM EDT CBC WITH AUTO DIFFERENTIAL [employer] Label Print 07/24/2024 5:24 AM EDT CALCIUM, IONIZED [employer] Label Print 07/24/2024 5:24 AM EDT BASIC METABOLIC PANEL W/ REFLEX TO MG FOR LOW K [employer] Label Print 07/24/2024 5:24 AM EDT XR CHEST PORTABLE Routine 07/24/2024 5:0 9 AM EDT POC GLUCOSE FINGERSTICK Routine 07/24/2024 4:33 AM EDT POC GLUCOSE FINGERSTICK Routine 07/24/2024 12:32 AM EDT POC GLUCOSE FINGERSTICK Routine 07/23/2024 8:00 PM EDT POC GLUCOSE FINGERSTICK Routine 07/23/2024 4:29 PM EDT POC GLUCOSE FINGERSTICK Routine 07/23/2024 11:11 AM EDT POC GLUCOSE FINGERSTICK Routine 07/23/2024 7:36 AM EDT POCT GLUCOSE Routine 07/23/2024 5:54 AM EDT LACTIC ACID,POINT OF CARE Routine 07/23/2024 5:54 AM EDT ARTERIAL BLOOD GAS, POC Routine 07/23/2024 5:54 AM EDT XR CHEST PORTABLE Routine 07/23/2024 5:0 1 AM EDT PHOSPHORUS [employer] Label Print 07/23/2024 4:50 AM EDT MAGNESIUM [employer] Label Print 07/23/2024 4:50 AM EDT CBC WITH AUTO DIFFERENTIAL [employer] Label Print 07/23/2024 4:50 AM EDT CALCIUM, IONIZED [employer] Label Print 07/23/2024 4:50 AM EDT BASIC METABOLIC PANEL W/ REFLEX TO MG FOR LOW K [employer] Label Print 07/23/2024 4:50 AM EDT POC GLUCOSE FINGERSTICK Routine 07/23/2024 3:24 AM EDT TRANSFUSE PLASMA Routine 07/23/2024 2:56 AM EDT PREPARE PLASMA Routine 07/23/2024 2:45 AM EDT POC GLOBAL HEMOSTASIS TEG W/LYSIS Routine 07/23/2024 1:05 AM EDT POC GLUCOSE FINGERSTICK Routine 07/23/2024 12:28 AM EDT TRIGLYCERIDES Routine 07/22/2024 8:31 PM EDT CALCIUM, IONIZED STAT 07/22/2024 8:31 PM EDT BASIC METABOLIC PANEL STAT 07/22/2024 8:31 PM EDT PHOSPHORUS STAT 07/22/2024 8:31 PM EDT MAGNESIUM STAT 07/22/2024 8:31 PM EDT CBC WITH AUTO DIFFERENTIAL STAT 07/22/2024 8:31 PM EDT COLOSTOMY LAPAROSCOPIC 07/22/2024 2:04 PM EDT Buttock wound, left, initial encounter OR DEBRIDEMENT SUBCUTANEOUS TISSUE EA ADDL 20 SQ CM 07/22/2024 2:04 PM EDT Buttock wound, left, initial encounter POC GLUCOSE FINGERSTICK Routine 07/22/2024 12:40 PM EDT POC GLUCOSE FINGERSTICK Routine 07/22/2024 8:06 AM EDT POCT GLUCOSE Routine 07/22/2024 5:23 AM EDT LACTIC ACID,POINT OF CARE Routine 07/22/2024 5:23 AM EDT ARTERIAL BLOOD GAS, POC Routine 07/22/2024 5:23 AM EDT PHOSPHORUS [employer] Label Print 07/22/2024 5:22 AM EDT MAGNESIUM [employer] Label Print 07/22/2024 5:22 AM EDT CBC WITH AUTO DIFFERENTIAL [employer] Label Print 07/22/2024 5:22 AM EDT CALCIUM, IONIZED [employer] Label Print 07/22/2024 5:22 AM EDT BASIC METABOLIC PANEL W/ REFLEX TO MG FOR LOW K [employer] Label Print 07/22/2024 5:22 AM EDT XR CHEST PORTABLE Routine 07/22/2024 5:0 9 AM EDT POC GLUCOSE FINGERSTICK Routine 07/22/2024 12:01 AM EDT POC GLUCOSE FINGERSTICK Routine 07/21/2024 7:33 PM EDT POC GLUCOSE FINGERSTICK Routine 07/21/2024 4:[address] ABDOMEN PELVIS W IV CONTRAST STAT 07/21/2024 2:13 PM EDT POC GLUCOSE FINGERSTICK Routine 07/21/2024 12:44 PM EDT POC GLUCOSE FINGERSTICK Routine 07/21/2024 8:14 AM EDT VANCOMYCIN LEVEL, TROUGH [employer] Label Print 07/21/2024 5:25 AM EDT PHOSPHORUS [employer] Label Print 07/21/2024 5:25 AM EDT MAGNESIUM [employer] Label Print 07/21/2024 5:25 AM EDT CBC WITH AUTO DIFFERENTIAL [employer] Label Print 07/21/2024 5:25 AM EDT CALCIUM, IONIZED [employer] Label Print 07/21/2024 5:25 AM EDT BASIC METABOLIC PANEL W/ REFLEX TO MG FOR LOW K [employer] Label Print 07/21/2024 5:25 AM EDT POCT GLUCOSE Routine 07/21/2024 5:01 AM EDT LACTIC ACID,POINT OF CARE Routine 07/21/2024 5:01 AM EDT ARTERIAL BLOOD GAS, POC Routine 07/21/2024 5:01 AM EDT XR CHEST PORTABLE Routine 07/21/2024 4:5 0 AM EDT POC GLUCOSE FINGERSTICK Routine 07/21/2024 2:15 AM EDT POCT GLUCOSE Routine 07/20/2024 8:51 PM EDT LACTIC ACID,POINT OF CARE Routine 07/20/2024 8:51 PM EDT ARTERIAL BLOOD GAS, POC Routine 07/20/2024 8:51 PM EDT PREVIOUS SPECIMEN STAT 07/20/2024 7:5 0 PM EDT COMPREHENSIVE METABOLIC PANEL STAT 07/20/2024 7:50 PM EDT POC GLUCOSE FINGERSTICK Routine 07/20/2024 7:48 PM EDT LACTIC ACID Stat [employer] Label print 07/20/2024 7:06 PM EDT CBC Stat [employer] Label print 07/20/2024 7:06 PM EDT POC GLUCOSE FINGERSTICK Routine 07/20/2024 6:07 PM EDT LEG DEBRIDEMENT INCISION AND DRAINAGE 07/20/2024 3:08 PM EDT Wound of left buttock, initial encounter ECHO (TTE) COMPLETE STAT 07/20/2024 2 :57 PM EDT Congestive heart failure, unspecified HF chronicity, unspecified heart failure type (HCC) POC GLUCOSE FINGERSTICK Routine 07/20/2024 2:47 PM EDT LACTIC ACID,POINT OF CARE Routine 07/20/2024 1:09 PM EDT ARTERIAL BLOOD GAS, POC Routine 07/20/2024 1:09 PM EDT HEMOGLOBIN AND HEMATOCRIT [employer] Label Print 07/20/2024 1:02 PM EDT EKG 12-LEAD STAT 07/20/2024 12:59 PM EDT TROPONIN STAT 07/20/2024 12:38 PM EDT PREVIOUS SPECIMEN STAT 07/20/2024 12: 38 PM EDT MYOGLOBIN, BLOOD STAT 07/20/2024 12:3 8 PM EDT CK STAT 07/20/2024 12:38 PM EDT XR CHEST PORTABLE STAT 07/20/2024 11: 44 AM EDT POC GLUCOSE FINGERSTICK Routine 07/20/2024 11:44 AM EDT OR INSJ NON-TUNNELED CENTRAL VENOUS CATH AGE 5 YR/> Routine 07/20/2024 11:04 AM EDT Necrotizing fasciitis (HCC) TRANSFUSE RED BLOOD CELLS Routine 07/20/2024 10:01 AM EDT LACTIC ACID,POINT OF CARE Routine 07/20/2024 8:58 AM EDT ARTERIAL BLOOD GAS, POC Routine 07/20/2024 8:58 AM EDT NOTIFICATION PANEL, POC Routine 07/20/2024 6:31 AM EDT POCT GLUCOSE Routine 07/20/2024 6:31 AM EDT LACTIC ACID,POINT OF CARE Routine 07/20/2024 6:31 AM EDT ARTERIAL BLOOD GAS, POC Routine 07/20/2024 6:31 AM EDT XR CHEST PORTABLE Routine 07/20/2024 4:3 2 AM EDT MICROSCOPIC URINALYSIS [employer] Label Print 07/20/2024 3:52 AM EDT URINALYSIS [employer] Label Print 07/20/2024 3:52 AM EDT TRIGLYCERIDES Add-On 07/20/2024 3:32 AM EDT VANCOMYCIN LEVEL, RANDOM Routine 07/20/2024 3:32 AM EDT PHOSPHORUS Routine 07/20/2024 3:32 AM EDT MAGNESIUM Routine 07/20/2024 3:32 AM EDT CBC WITH AUTO DIFFERENTIAL Routine 07/20/2024 3:32 AM EDT CALCIUM, IONIZED Routine 07/20/2024 3:32 AM EDT BASIC METABOLIC PANEL W/ REFLEX TO MG FOR LOW K Routine 07/20/2024 3:32 AM EDT NOTIFICATION PANEL, POC Routine 07/20/2024 2:21 AM EDT POCT GLUCOSE Routine 07/20/2024 2:21 AM EDT LACTIC ACID,POINT OF CARE Routine 07/20/2024 2:21 AM EDT ARTERIAL BLOOD GAS, POC Routine 07/20/2024 2:21 AM EDT POCT GLUCOSE Routine 07/20/2024 2:13 AM EDT LACTIC ACID,POINT OF CARE Routine 07/20/2024 2:13 AM EDT ARTERIAL BLOOD GAS, POC Routine 07/20/2024 2:13 AM EDT XR ABDOMEN FOR NG/OG/NE TUBE PLACEMENT STAT 07/20/2024 12:45 AM EDT XR CHEST PORTABLE STAT 07/20/2024 12: 45 AM EDT PERINEAL INCISION AND DRAINAGE 07/19/2024 8:55 PM EDT Necrotizing soft tissue infection TYPE AND SCREEN STAT 07/19/2024 7:34 PM EDT PROTIME-INR Stat [employer] Label print 07/19/2024 7:33 PM EDT EKG 12-LEAD STAT 07/19/2024 7:31 PM EDT XR CHEST PORTABLE STAT 07/19/2024 7:2 8 PM EDT PROCALCITONIN Stat [employer] Label print 07/19/2024 6:33 PM EDT C-REACTIVE PROTEIN Stat [employer] Label print 07/19/2024 6:33 PM EDT SEDIMENTATION RATE Stat [employer] Label print 07/19/2024 6:33 PM EDT LACTIC ACID Stat [employer] Label print 07/19/2024 6:33 PM EDT BASIC METABOLIC PANEL Stat [employer] Label print 07/19/2024 6:33 PM EDT CBC WITH AUTO DIFFERENTIAL Stat [employer] Label print 07/19/2024 6:33 PM EDT CULTURE, ANAEROBIC AND AEROBIC Routine 07/19/2024 10:30 AM EDT CULTURE, FUNGUS Routine 07/19/2024 10:30 AM EDT from Last 3 Months Results * XR ABDOMEN FOR NG/OG/NE TUBE PLACEMENT (07/30/2024 2:40 PM EDT) Only the most recent of2 resultswithin the time period is included. Anatomical Region Laterality Modality Abdomen, Chest Computed Radiogr aphy 07/30/2024 3:40 PM EDT Impressions 07/30/2024 3:48 PM EDT 1. Gastric tube in place with the tip at the distal body of the stomach and the side port in the body of the stomach. 2. Nonobstructive bowel gas pattern. Narrative 07/30/2024 3:48 PM EDT EXAMINATION: ONE SUPINE XRAY VIEW(S) OF THE ABDOMEN 07/30/2024 2:52 pm COMPARISON: 07/20/2024. HISTORY: ORDERING SYSTEM PROVIDED HISTORY: Confirmation of course of NG/OG/NE tube and location of tip of tube TECHNOLOGIST PROVIDED HISTORY: Confirmation of course of NG/OG/NE tube and location of tip of tube Portable?->Yes FINDINGS: No dilated bowel is noted. There is little air in the bowel. There is a normal amount of stool in the colon. There is a gastric tube in place with the tip at the distal body of the stomach and the side port in the body of the stomach. Procedure Note Car Espinoza MD - 07/30/2024 EXAMINATION: ONE SUPINE XRAY VIEW(S) OF THE ABDOMEN 07/30/2024 2:52 pm COMPARISON: 07/20/2024. HISTORY: ORDERING SYSTEM PROVIDED HISTORY: Confirmation of course of NG/OG/NE tubeand location of tip of tube TECHNOLOGIST PROVIDED HISTORY: Confirmation of course of NG/OG/NE tube and location of tip of tube Portable?->Yes FINDINGS: No dilated bowel is noted. There is little air in the bowel. There aurelia normal amount of stool in the colon. There is a gastric tube in placewith the tip at the distal body of the stomach and the side port in the bodyof the stomach. IMPRESSION: 1. Gastric tube in place with the tip at the distal body of the stomachand the side port in the body of the stomach. 2. Nonobstructive bowel gas pattern. Alisia Cuellar MD IMG DIAGNOSTIC IMAGING ORD ERABLES Final Result * (ABNORMAL) POC Glucose Fingerstick (07/30/2024 11:17 AM EDT) Only the most recent of90 resultswithin the time period is included. Pathologist [facility] POC Glucose 110(H) 65 - 105 mg/dL 07/30/2024 11:17 AM EDT W-21 07/30/2024 11:1 7 AM EDT 07/30/2024 11:23 AM EDT Alisia Cuellar MD POINT OF CARE TEST ORDERAB LES Final Result W-[address] [place] [address], [facility] [phone] * (ABNORMAL) Basic Metabolic Panel w/ Reflex to MG (07/30/2024 3:36 AM EDT) Only the most recent of11 resultswithin the time period is included. Sodium 148(H) 136 - 145 mmol/L 07/30/2024 3:36 AM EDT W-21 Potassium 5.0 3.7 - 5.3 mmol/L 07/30/2024 3:36 AM EDT W-21 Comment: Specimen hemolysis has exceeded the interference as defined by Sinan. Value may be falsely increased. Suggest recollection if clinically indicated. Chloride 117(H) 98 - 107 mmol/L 07/30/2024 3:36 AM EDT [facility] CO2 22 20 - 31 mmol/L 07/30/2024 3:36 AM EDT [facility] Anion Gap 9 9 - 16 mmol/L 07/30/2024 3:36 AM EDT [facility] Glucose 125(H) 74 - 99 mg/dL 07/30/2024 3:36 AM EDT W-21 BUN 19 8 - 23 mg/dL 07/30/2024 3:36 AM EDT W-21 Creatinine 0.7 0.6 - 0.9 mg/dL 07/30/2024 3:36 AM EDT [facility] Est, Glom Filt Rate >90 >60 mL/min/1. 73m2 07/30/2024 3:36 AM EDT W-21 Comment: These results are not intended for [...] therapy that affects renal tubular secretion. Calcium 8.3(L) 8.6 - 10.4 mg/dL 07/30/2024 3:36 AM EDT W-21 Blood BLOOD SPECIMEN / Unknown 07/30/2024 3:36 AM EDT 07/30/2024 3:39 AM EDT us Janak Martin MD CHEMISTRY ORDERABLES Final Resu lt W-21 [address] [place] [address], [facility] [phone] * (ABNORMAL) CBC with Auto Differential (07/30/2024 3:36 AM EDT) Only the most recent of14 resultswithin the time period is included. WBC 18.7(H) 3.5 - 11.3 k/uL 07/30/2024 3:36 AM EDT [facility] RBC 2.91(L) 3.95 - 5.11 m/uL 07/30/2024 3:36 AM EDT [facility] Hemoglobin 8.5(L) 11.9 - 15.1 g/dL 07/30/2024 3:36 AM EDT [facility] Hematocrit 30.0(L) 36.3 - 47.1 % 07/30/2024 3:36 AM EDT [facility] MCV 103.1(H) 82.6 - 102.9 fL 07/30/2024 3:36 AM EDT W-21 MCH 29.2 25.2 - 33.5 pg 07/30/2024 3:36 AM EDT [facility] MCHC 28.3(L) 28.4 - 34.8 g/dL 07/30/2024 3:36 AM EDT W-21 RDW 14.8(H) 11.8 - 14.4 % 07/30/2024 3:36 AM EDT W-21 Platelets See Reflexed IPF Result 138 - 453 k/uL 07/30/2024 3:36 AM EDT W-21 Platelet, Fluorescence 584(H) 138 - 453 k/uL 07/30/2024 3:36 AM EDT W-21 Platelet, Immature Fraction 2.6 1.1 - 10.3 % 07/30/2024 3:36 AM EDT [facility] NRBC Automated 0.1(H) 0.0 per 100 WBC 07/30/2024 3:36 AM EDT [facility] Immature Granulocytes % 1(H) 0 % 07/30/2024 3:36 AM EDT [facility] Neutrophils % 82(H) 36 - 65 % 07/30/2024 3:36 AM EDT [facility] Lymphocytes % 9(L) 24 - 43 % 07/30/2024 3:36 AM EDT [facility] Monocytes % 7 3 - 12 % 07/30/2024 3:36 AM EDT W-21 Eosinophils % 1 1 - 4 % 07/30/2024 3:36 AM EDT W-21 Basophils % 0 0 - 2 % 07/30/2024 3:36 AM EDT [facility] Immature Granulocytes Absolute 0.19 0.00 - 0.30 k/uL 07/30/2024 3:36 AM EDT W-21 Neutrophils Absolute 15.33(H) 1.50 - 8.10 k/uL 07/30/2024 3:36 AM EDT [facility] Lymphocytes Absolute 1.68 1.10 - 3.70 k/uL 07/30/2024 3:36 AM EDT [facility] Monocytes Absolute 1.31(H) 0.10 - 1.20 k/uL 07/30/2024 3:36 AM EDT W-21 Eosinophils Absolute 0.19 0.00 - 0.44 k/uL 07/30/2024 3:36 AM EDT W-21 Basophils Absolute 0.00 0.00 - 0.20 k/uL 07/30/2024 3:36 AM EDT W-21 Morphology ANISOCYTOSIS PRESENT 07/30/2024 3:36 AM EDT W-21 Morphology HYPOCHROMIA PRESENT 07/30/2024 3:36 AM EDT W-21 Morphology MACROCYTOSIS PRESENT 07/30/2024 3:36 AM EDT W-21 Blood BLOOD SPECIMEN / Unknown 07/30/2024 3:36 AM EDT 07/30/2024 3:39 AM EDT us Janak Martin MD HEMATOLOGY ORDERABLES Final Res ult [facility] [address] [phone] * Phosphorus (07/30/2024 3:36 AM EDT) Only the most recent of13 resultswithin the time period is included. Phosphorus 2.5 2.5 - 4.5 mg/dL 07/30/2024 3:36 AM EDT W-21 Blood BLOOD SPECIMEN / Unknown 07/30/2024 3:36 AM EDT 07/30/2024 3:39 AM EDT Janak Martin MD CHEMISTRY ORDERABLES Final Resu lt Performing Organization Address [facility] de Phone Number [facility] [address] [place] [address] * Magnesium (07/30/2024 3:36 AM EDT) Only the most recent of14 resultswithin the time period is included. Pathologist [facility] Magnesium 1.9 1.6 - 2.4 mg/dL 07/30/2024 3:36 AM EDT W-21 Blood BLOOD SPECIMEN / Unknown 07/30/2024 3:36 AM EDT 07/30/2024 3:39 AM EDT Janak Martin MD CHEMISTRY ORDERABLES Final Resu lt Performing Organization Address [facility] Phone Number W-[address] [place] [address] * Lactic Acid, POC (07/29/2024 1:54 PM EDT) Only the most recent of15 resultswithin the time period is included. Pathologist [facility] POC Lactic Acid 0.8 0.56 - 1.39 mmol/L 07/29/2024 1:54 PM EDT W-21 07/29/2024 1:54 PM EDT 07/29/2024 2:00 PM EDT Alisia Cuellar MD POINT OF CARE TEST ORDERAB LES Final Result Performing Organization Address [facility] Co de Phone Number W-[address] [place] [address], [facility] [phone] * (ABNORMAL) Arterial Blood Gas, POC (07/29/2024 1:54 PM EDT) Only the most recent of16 resultswithin the time period is included. Pathologist [facility] POC pH 7.372 7.350 - 7.450 07/29/2024 1:54 PM EDT W-21 POC pCO2 49.8(H) 35.0 - 48.0 mm Hg 07/29/2024 1:54 PM EDT W-21 POC PO2 94.7 83.0 - 108.0 mm Hg 07/29/2024 1:54 PM EDT W-21 POC HCO3 28.9(H) 21.0 - 28.0 mmol/L 07/29/2024 1:54 PM EDT W-21 Positive Base Excess, Art 3.1(H) 0.0 - 3.0 mmol/L 07/29/2024 1:54 PM EDT W-21 POC O2 SAT 97.0 94.0 - 98.0 % 07/29/2024 1:54 PM EDT W-21 Sample Site Right Radial Artery 07/29/2024 1:54 PM EDT [facility] [employer] Mode NIV 07/29/2024 1:54 PM EDT [facility] [employer] 07/29/2024 1:54 PM EDT 07/29/2024 2:00 PM EDT Alisia Cuellar MD POINT OF CARE TEST ORDERAB LES Final Result W-[address] [place] [address], [facility] [phone] * (ABNORMAL) POCT Glucose (07/29/2024 1:54 PM EDT) Only the most recent of14 resultswithin the time period is included. POC Glucose 114(H) 74 - 100 mg/dL 07/29/2024 1:54 PM EDT W-21 07/29/2024 1:54 PM EDT 07/29/2024 2:00 PM EDT Alisia Cuellar MD POINT OF CARE TEST ORDERAB LES Final Result W-[address] [place] [address], [facility] [phone] * XR CHEST PORTABLE (07/29/2024 5:25 AM EDT) Only the most recent of15 resultswithin the time period is included. Anatomical Region Laterality Modality Chest Computed Radiogr aphy 07/29/2024 7:33 AM EDT Impressions 07/29/2024 7:34 AM EDT 1. Interval extubation with improving perihilar opacities. 2. Slightly increasing left lower lung zone opacification with suspected pleural effusion. Narrative 07/29/2024 7:34 AM EDT EXAMINATION: ONE XRAY VIEW OF THE CHEST 07/29/2024 5:24 am COMPARISON: 07/28/2024 radiograph HISTORY: ORDERING SYSTEM PROVIDED HISTORY: post extubation TECHNOLOGIST PROVIDED HISTORY: post extubation FINDINGS: Interval extubation. Right central line stable. Cardiomegaly with improving perihilar opacities centrally. Slightly increasing ground-glass opacification in the left lower lung zone with suspected pleural effusion. No skeletal abnormality. Procedure Note Melo Mccallum IV, MD - 07/29/2024 EXAMINATION: ONE XRAY VIEW OF THE CHEST 07/29/2024 5:24 am COMPARISON: 07/28/2024 radiograph HISTORY: ORDERING SYSTEM PROVIDED HISTORY: post extubation TECHNOLOGIST PROVIDED HISTORY: post extubation FINDINGS: Interval extubation. Right central line stable. Cardiomegaly withimproving perihilar opacities centrally. Slightly increasing ground-glass opacification in the left lower lung zone with suspected pleuraleffusion. No skeletal abnormality. IMPRESSION: 1. Interval extubation with improving perihilar opacities. 2. Slightly increasing left lower lung zone opacification with suspected pleural effusion. Kelly Eastman MD IMG DIAGNOSTIC IMAGING ORDERABLE S Final Result * BLOOD BANK SPECIMEN (07/29/2024 5:05 AM EDT) 07/29/2024 5:05 AM EDT 07/29/2024 5:10 AM EDT Alisia Cuellar MD BLOOD BANK TEST [place] [address], [facility] [phone] * TYPE AND SCREEN (07/29/2024 5:05 AM EDT) Only the most recent of3 resultswithin the time period is included. Blood Bank Sample Expiration 08/01/2024,2 359 07/29/2024 5:05 AM EDT W-21 Arm Band Number [id number] 07/29/2024 5:05 AM EDT W-21 ABO/Rh A POSITIVE 07/29/2024 5:05 AM EDT W-21 Antibody Screen NEGATIVE 07/29/2024 5:05 AM EDT W-21 Blood BLOOD SPECIMEN / Unknown 07/29/2024 5:05 AM EDT 07/29/2024 5:10 AM EDT Nichole Morton DO BLOOD BANK TEST ORDERABLES Makeda l Result Performing Organization Address City/[facility]/ZIP Co de Phone Number [facility] [address] [place] [address], [facility] [phone] * (ABNORMAL) C-Reactive Protein (07/29/2024 5:05 AM EDT) Only the most recent of3 resultswithin the time period is included. CRP 187.0(H) 0.0 - 5.0 mg/L 07/29/2024 5:05 AM EDT W-21 Blood BLOOD SPECIMEN / Unknown 07/29/2024 5:05 AM EDT 07/29/2024 5:09 AM EDT Janak Martin MD CHEMISTRY ORDERABLES Final Resu lt Performing Organization Address City/[facility]/ZIP Co de Phone Number W-[address] [place] [address], [facility] [phone] * Calcium, Ionized (07/29/2024 5:05 AM EDT) Only the most recent of12 resultswithin the time period is included. Calcium, Ionized 1.21 1.13 - 1.33 mmol/L 07/29/2024 5:05 AM EDT W-21 Blood BLOOD SPECIMEN / Unknown 07/29/2024 5:05 AM EDT 07/29/2024 5:09 AM EDT us Janak Martin MD CHEMISTRY ORDERABLES Final Resu lt SOLIS MAYER [address] [place] [address], [facility] [phone] * EKG 12 Lead (07/28/2024 7:31 PM EDT) Only the most recent of3 resultswithin the time period is included. Ventricular Rate 118 BPM [facility] Atrial Rate 118 BPM [facility] P-R Interval 156 ms [facility] QRS Duration 88 ms [facility] Q-T Interval 304 ms [facility] QTc Calculation (Bazett) 426 ms [facility] P [place] 50 degrees [facility] R [place] -2 degrees [facility] T [place] 133 degrees [facility] 07/28/2024 7:31 PM EDT Narrative [facility] - 07/29/2024 10:32 AM EDT Sinus tachycardia Low voltage QRS Cannot rule out Anterior infarct (cited on or before 19-Jul-2024) Abnormal ECG When compared with ECG of 20-Jul-2024 12:59, Nonspecific T wave abnormality now evident in Inferior leads Nonspecific T wave abnormality, worse in Lateral leads Procedure Note Ayad Thornton MD - 07/29/2024 Sinus tachycardia Low voltage QRS Cannot rule out Anterior infarct (cited on or before 19-Jul-2024) Abnormal ECG When compared with ECG of 20-Jul-2024 12:59, Nonspecific T wave abnormality now evident in Inferior leads Nonspecific T wave abnormality, worse in Lateral leads us Ilan Martinez DO ECG ORDERABLES Final Result Performing Organization Address [facility] Co de Phone Number [facility] * (ABNORMAL) Basic Metabolic Panel (07/26/2024 4:05 PM EDT) Only the most recent of4 resultswithin the time period is included. Sodium 146(H) 136 - 145 mmol/L 07/26/2024 4:05 PM EDT [facility] Potassium 4.4 3.7 - 5.3 mmol/L 07/26/2024 4:05 PM EDT W-21 Chloride 115(H) 98 - 107 mmol/L 07/26/2024 4:05 PM EDT [facility] CO2 21 20 - 31 mmol/L 07/26/2024 4:05 PM EDT [facility] Anion Gap 10 9 - 16 mmol/L 07/26/2024 4:05 PM EDT [facility] [employer] Glucose 169(H) 74 - 99 mg/dL 07/26/2024 4:05 PM EDT [facility] BUN 34(H) 8 - 23 mg/dL 07/26/2024 4:05 PM EDT [facility] Creatinine 0.8 0.6 - 0.9 mg/dL 07/26/2024 4:05 PM EDT W-21 Est, Glom Filt Rate 83 >60 mL/min/1. 73m2 07/26/2024 4:05 PM EDT W-21 Comment: These results are not intended for [...] therapy that affects renal tubular secretion. Calcium 8.2(L) 8.6 - 10.4 mg/dL 07/26/2024 4:05 PM EDT W-21 07/26/2024 4:05 PM EDT 07/26/2024 4:05 PM EDT Barbara Dickerson AUTOMOTIVE SERVICE CASHIER - RELOCATION SERVICES SPECIALIST CHEMISTRY ORDERABLES Final Result W-21 [address] [place] [address], [facility] [phone] * (ABNORMAL) CBC (07/26/2024 3:56 PM EDT) Only the most recent of2 resultswithin the time period is included. WBC 29.5(H) 3.5 - 11.3 k/uL 07/26/2024 3:56 PM EDT [facility] [employer] RBC 2.92(L) 3.95 - 5.11 m/uL 07/26/2024 3:56 PM EDT [facility] Hemoglobin 8.6(L) 11.9 - 15.1 g/dL 07/26/2024 3:56 PM EDT [facility] Hematocrit 27.2(L) 36.3 - 47.1 % 07/26/2024 3:56 PM EDT [facility] [employer] MCV 93.2 82.6 - 102.9 fL 07/26/2024 3:56 PM EDT [facility] MCH 29.5 25.2 - 33.5 pg 07/26/2024 3:56 PM EDT [facility] MCHC 31.6 28.4 - 34.8 g/dL 07/26/2024 3:56 PM EDT [facility] RDW 14.6(H) 11.8 - 14.4 % 07/26/2024 3:56 PM EDT [facility] [employer] Platelets 411 138 - 453 k/uL 07/26/2024 3:56 PM EDT [facility] [employer] MPV 11.1 8.1 - 13.5 fL 07/26/2024 3:56 PM EDT [facility] NRBC Automated 0.2(H) 0.0 per 100 WBC 07/26/2024 3:56 PM EDT [facility] [employer] Blood BLOOD SPECIMEN / Unknown 07/26/2024 3:56 PM EDT 07/26/2024 3:56 PM EDT us Barbara Dickerson AUTOMOTIVE SERVICE CASHIER - RELOCATION SERVICES SPECIALIST HEMATOLOGY ORDERABLES Final Result [place] [id number] [address] [phone] * (ABNORMAL) Hemoglobin and Hematocrit (07/26/2024 6:38 AM EDT) Only the most recent of2 resultswithin the time period is included. Pathologist [facility] Hemoglobin 8.3(L) 11.9 - 15.1 g/dL 07/26/2024 6:38 AM EDT W-21 Hematocrit 26.7(L) 36.3 - 47.1 % 07/26/2024 6:38 AM EDT W-21 Blood BLOOD SPECIMEN / Unknown 07/26/2024 6:38 AM EDT 07/26/2024 6:38 AM EDT Nichole Morton DO HEMATOLOGY ORDERABLES Final Res ult W-21 [address] [place] [address], [facility] [phone] * Transfuse RBC (07/26/2024 5:29 AM EDT) Only the most recent of2 resultswithin the time period is included. Nichole Morton DO NURSING TREATMENT ORDERABLES - BLOOD ADMIN Final Result * CT CHEST ABDOMEN PELVIS W CONTRAST Additional Contrast? None (07/25/2024 12:01 PM EDT) Anatomical Region Laterality Modality Chest, Abdomen, Pelvis, Hip Comp uted Tomography 07/25/2024 2:14 PM EDT Impressions 07/25/2024 2:42 PM EDT 1. Small bilateral pleural effusions with bilateral lower lobe atelectasis. Superimposed infection cannot be excluded. 2. Large left sacral decubitus ulcer with gas/debris extending into the left perineum, perirectal space, and left pelvic sidewall, decreased in size compared to prior. The collection abuts the sacrum without definite osseous erosion. Consider MRI sacrum to evaluate for acute osteomyelitis. 3. Status post left upper quadrant diverting loop colostomy. No evidence of acute complication. 4. Right breast 2.7 cm nodule, unchanged in size since 09/09/2022. Correlate with mammographic imaging. Narrative 07/25/2024 2:42 PM EDT EXAMINATION: CT OF THE CHEST, ABDOMEN, AND PELVIS WITH CONTRAST 07/25/2024 11:22 am TECHNIQUE: CT of the chest, abdomen and pelvis was performed with the administration of intravenous contrast. Multiplanar reformatted images are provided for review. Automated exposure control, iterative reconstruction, and/or weight based adjustment of the mA/kV was utilized to reduce the radiation dose to as low as reasonably achievable. COMPARISON: CT abdomen pelvis 07/21/2024, CT chest 09/09/2022 HISTORY: ORDERING SYSTEM PROVIDED HISTORY: eval worsening WBC and pressors, concern for intra abdominal or intrathoracic infection TECHNOLOGIST PROVIDED HISTORY: eval worsening WBC and pressors, concern for intra abdominal or intrathoracic infection Reason for Exam: eval worsening WBC and pressors, concern for intra abdominal or intrathoracic infection FINDINGS: Chest: Mediastinum: Normal heart size. No pericardial effusion. Mild coronary calcifications.No enlarged supraclavicular, axillary, mediastinal, or hilar lymph nodes. No aortic aneurysm. Right internal jugular central venous catheter with tip in the upper SVC. Lungs/pleura: Tracheostomy tube terminates 5 cm above the khushbu. Small bilateral pleural effusions with bilateral lower lobe atelectasis. No pneumothorax. Soft Tissues/Bones: No acute fracture. No focal osteoblastic or osteolytic lesion.Right breast 2.7 cm nodule, unchanged in size since 09/09/2022. Abdomen/Pelvis: Organs: No focal liver lesion. Status post cholecystectomy. Normal spleen. Unchanged chest 2.8 cm left adrenal adenoma.. No pancreatic mass or ductal dilatation. The kidneys enhance symmetrically without evidence of hydronephrosis. GI/Bowel: Enteric tube terminates in the gastric body. No bowel wall thickening, dilatation or obstruction. Status post left upper quadrant diverting loop colostomy. Colonic diverticulosis. Pelvis: Hunter catheter in place with decompressed urinary bladder. Peritoneum/Retroperitoneum: No evidence of ascites or free air. No evidence of retroperitoneal lymphadenopathy. Aorta is normal in caliber without acute abnormality. Bones/Soft Tissues: No acute fracture. No focal osteoblastic or osteolytic lesion.Diffuse anasarca. Large left sacral decubitus ulcer with gas/debris extending into the left perineum and perirectal space, decrease in size compared to prior measuring approximately 5.3 x 1.6 x cm, previously 9.5 x 3.3 cm. This extends into the left pelvic sidewall and abuts the sacrum without definite osseous erosion. Procedure Note Elizabeth Chaney MD - 07/25/2024 EXAMINATION: CT OF THE CHEST, ABDOMEN, AND PELVIS WITH CONTRAST 07/25/2024 11:22 am TECHNIQUE: CT of the chest, abdomen and pelvis was performed with the administrationof intravenous contrast. Multiplanar reformatted images are provided forreview. Automated exposure control, iterative reconstruction, and/or weightbased adjustment of the mA/kV was utilized to reduce the radiation dose to aslow as reasonably achievable. COMPARISON: CT abdomen pelvis 07/21/2024, CT chest 09/09/2022 HISTORY: ORDERING SYSTEM PROVIDED HISTORY: eval worsening WBC and pressors,concern for intra abdominal or intrathoracic infection TECHNOLOGIST PROVIDED HISTORY: eval worsening WBC and pressors, concern for intra abdominal orintrathoracic infection Reason for Exam: eval worsening WBC and pressors, concern for intraabdominal or intrathoracic infection FINDINGS: Chest: Mediastinum: Normal heart size. No pericardial effusion. Mild coronary calcifications.No enlarged supraclavicular, axillary, mediastinal, orhilar lymph nodes. No aortic aneurysm. Right internal jugular central venous catheter with tip in the upper SVC. Lungs/pleura: Tracheostomy tube terminates 5 cm above the khushbu. Small bilateral pleural effusions with bilateral lower lobe atelectasis. No pneumothorax. Soft Tissues/Bones: No acute fracture. No focal osteoblastic orosteolytic lesion.Right breast 2.7 cm nodule, unchanged in size since 09/09/2022. Abdomen/Pelvis: Organs: No focal liver lesion. Status post cholecystectomy. Normalspleen. Unchanged chest 2.8 cm left adrenal adenoma.. No pancreatic mass orductal dilatation. The kidneys enhance symmetrically without evidence of hydronephrosis. GI/Bowel: Enteric tube terminates in the gastric body. No bowel wall thickening, dilatation or obstruction. Status post left upper quadrant diverting loop colostomy. Colonic diverticulosis. Pelvis: Hunter catheter in place with decompressed urinary bladder. Peritoneum/Retroperitoneum: No evidence of ascites or free air. Noevidence of retroperitoneal lymphadenopathy. Aorta is normal in caliber withoutacute abnormality. Bones/Soft Tissues: No acute fracture. No focal osteoblastic orosteolytic lesion.Diffuse anasarca. Large left sacral decubitus ulcer withgas/debris extending into the left perineum and perirectal space, decrease in size compared to prior measuring approximately 5.3 x 1.6 x cm, previously 9.5x 3.3 cm. This extends into the left pelvic sidewall and abuts the sacrum without definite osseous erosion. IMPRESSION: 1. Small bilateral pleural effusions with bilateral lower lobeatelectasis. Superimposed infection cannot be excluded. 2. Large left sacral decubitus ulcer with gas/debris extending into theleft perineum, perirectal space, and left pelvic sidewall, decreased in size compared to prior. The collection abuts the sacrum without definiteosseous erosion. Consider MRI sacrum to evaluate for acute osteomyelitis. 3. Status post left upper quadrant diverting loop colostomy. No evidenceof acute complication. 4. Right breast 2.7 cm nodule, unchanged in size since 09/09/2022.Correlate with mammographic imaging. [employer] DO IMG CT ORDERABLES Final Result * Culture, Blood 2 (07/25/2024 10:38 AM EDT) Specimen Description .BLOOD 07/25/2024 10:38 AM EDT W-21 Special Requests LT H 1ML FLUID 07/25/2024 10:38 AM EDT W-21 Culture NO GROWTH 5 DAYS 07/25/2024 10:38 AM EDT W-21 BLOOD SPECIMEN / Unknown 07/25/2024 10:38 AM EDT 07/25/2024 10:46 AM EDT us Juan C A [employer] DO MICROBIOLOGY - GENERAL ORDERAB LES Final Result W-[address] [place] [address], [facility] [phone] * Culture, Blood 1 (07/25/2024 10:30 AM EDT) Specimen Description .BLOOD 07/25/2024 10:30 AM EDT W-21 Special Requests RT H .05 FLUID 07/25/2024 10:30 AM EDT W-21 Culture NO GROWTH 5 DAYS 07/25/2024 10:30 AM EDT W-21 BLOOD SPECIMEN / Unknown 07/25/2024 10:30 AM EDT 07/25/2024 10:46 AM EDT us Juan C Coombs DO MICROBIOLOGY - GENERAL ORDERAB LES Final Result W-[address] [place] [address], [facility] [phone] * (ABNORMAL) Hemoglobin A1C (07/24/2024 5:24 AM EDT) Hemoglobin A1C 14.8(H) 4.0 - 6.0 % 07/24/2024 5:24 AM EDT W-21 Estimated Avg Glucose 378 mg/dL 07/24/2024 5:24 AM EDT W-21 Comment: The ADA and AACC recommend providing the estimated average glucose result to permit better patient understanding of their HBA1c result. 07/24/2024 5:24 AM EDT 07/24/2024 5:24 AM EDT Ilan Martinez DO CHEMISTRY ORDERABLES Final Res ult Performing Organization Address City/[facility]/ZIP Co de Phone Number W-[address] [place] [address], [facility] [phone] * PREPARE PLASMA, 1 Units (07/23/2024 2:45 AM EDT) Pathologist [facility] Unit Number [id number] 07/23/2024 2:49 AM EDT W-21 Component FRESH PLASMA 07/23/2024 2:49 AM EDT W-21 Unit Divison 00 07/23/2024 2:49 AM EDT W-21 Dispense Status Blood Bank TRANSFUSED 07/24/2024 7:16 AM EDT W-21 Unit Issue Date/Time [id number] 07/24/2024 7:16 AM EDT W-21 Product Code Blood Bank [id number] 07/24/2024 7:16 AM EDT W-21 Blood Bank Unit Type and Rh A POS 07/24/2024 7:16 AM EDT W-21 Blood Bank ISBT Product Blood Type [id number] 07/24/2024 7:16 AM EDT W-21 Blood Bank Blood Product Expiration Date [id number] 07/24/2024 7:16 AM EDT [facility] Transfusion Status OK TO TRANSFUSE 07/23/2024 2:49 AM EDT W-21 BLOOD SPECIMEN / Unknown 07/23/2024 2:45 AM EDT 07/23/2024 2:49 AM EDT Nichole Morton DO BLOOD BANK PRODUCT ORDERABLES F inal Result Performing Organization Address City/[facility] [facility]/ZIP Co de Phone Number W-[address] [place] [address], [facility] [phone] * (ABNORMAL) POC Global Hemostasis TEG w/Lysis (07/23/2024 1:05 AM EDT) Reaction Time TEG 11.0(H) 4.6 - 9.1 min 07/23/2024 1:05 AM EDT W-21 LY30(Lysis) TEG 0.0 0.0 - 2.6 % 07/23/2024 1:05 AM EDT W-21 MA(Max Clot) Rapid TEG 74.6(H) 52.0 - 70.0 mm 07/23/2024 1:05 AM EDT W-21 Fibrinogen, Functional TEG >52.0(H) 15.0 - 32.0 mm 07/23/2024 1:05 AM EDT W-21 Performing Location Performed at [facility] 07/23/2024 1:05 AM EDT W-21 07/23/2024 1:05 AM EDT 07/23/2024 1:58 AM EDT us Alisia Cuellar MD POINT OF CARE TEST ORDERAB LES Final Result Performing Organization Address City/[facility]/ZIP Co de Phone Number W-[address] [place] [address], [facility] [phone] * (ABNORMAL) Triglyceride (07/22/2024 8:31 PM EDT) Only the most recent of2 resultswithin the time period is included. Triglycerides 309(H) <150 mg/dL 07/22/2024 8:31 PM EDT W-21 Comment: Triglyceride Guidelines: <150 Desirable 150-199 Borderline 200-499 High >499 Very high Based on AHA Guidelines for fasting triglyceride, November 2011. 07/22/2024 8:31 PM EDT 07/22/2024 8:31 PM EDT us Juan C A Buffkin DO CHEMISTRY ORDERABLES Final Res ult W-[address] [place] [address], [facility] [phone] * CT ABDOMEN PELVIS W IV CONTRAST Additional Contrast? Oral (07/21/2024 2:13 PM EDT) Anatomical Region Laterality Modality Abdomen, Pelvis, Hip Computed To mography 07/21/2024 4:13 PM EDT Impressions 07/21/2024 4:27 PM EDT 1. 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 2. Probable rectal prolapse with moderate retained stool throughout large bowel but no obstruction or colitis. 3. Additional findings, as above. Narrative 07/21/2024 4:27 PM EDT EXAMINATION: CT OF THE ABDOMEN AND PELVIS WITH CONTRAST 07/21/2024 1:50 pm TECHNIQUE: CT of the abdomen and pelvis was performed with the administration of intravenous contrast. Multiplanar reformatted images are provided for review. Automated exposure control, iterative reconstruction, and/or weight based adjustment of the mA/kV was utilized to reduce the radiation dose to as low as reasonably achievable. COMPARISON: CT scan of the abdomen and pelvis from 09/09/2022 HISTORY: ORDERING SYSTEM PROVIDED HISTORY: To look for intra- abdominal collection and leak TECHNOLOGIST PROVIDED HISTORY: To look for intra- abdominal collection and leak Reason for Exam: To look for intra- abdominal collection and leak FINDINGS: Lower Chest: Somewhat increased lower lobe volume loss, greater on the left with small associated effusions. Enteric tube again seen with its tip in the stomach. No acute abnormality visualized cardiac structures. Organs: No acute abnormality liver, spleen, pancreas, or right adrenal gland; probably unchanged cm left adrenal mass, Hounsfield unit measurements 29. Surgical absence gallbladder. Mild but likely unchanged dilatation biliary tree. Symmetric renal perfusion with possible tiny nonobstructing stones but no hydronephrosis or suspicious focal abnormality. GI/Bowel: Probable rectal prolapse with moderate retained stool throughout large bowel but no abnormal dilatation or obvious wall thickening. Few diverticula seen, without CT evidence diverticulitis. Unremarkable small bowel, much of which is filled with contrast. No acute gastric abnormality. Pelvis: Low lying empty urinary bladder, within which Hunter catheter identified. To the left of the low lying possibly prolapsed rectum, there is a 9.5 x 3.3 cm air and debris/fecal containing collection, contiguous with cutaneous fistula and debris along the buttock crease. More anteriorly, the collection extends along the urinary bladder to near the pubic symphysis. Posterosuperiorly, a decubitus ulcer is identified extending to the coccyx, which is also contiguous with the above finding. Peritoneum/Retroperitoneum: Unremarkable vascular structures. No bulky lymphadenopathy. No pathologic free fluid or free air. Bones/Soft Tissues: Air abuts the coccyx and distal sacrum, but definite bony destruction not appreciated. Mild degenerative changes spine but no obvious acute bony abnormality. No sternal or acute soft tissue abnormality. Procedure Note Allen Schaeffer MD - 07/21/2024 EXAMINATION: CT OF THE ABDOMEN AND PELVIS WITH CONTRAST 07/21/2024 1:50 pm TECHNIQUE: CT of the abdomen and pelvis was performed with the administration of intravenous contrast. Multiplanar reformatted images are provided forreview. Automated exposure control, iterative reconstruction, and/or weightbased adjustment of the mA/kV was utilized to reduce the radiation dose to aslow as reasonably achievable. COMPARISON: CT scan of the abdomen and pelvis from 09/09/2022 HISTORY: ORDERING SYSTEM PROVIDED HISTORY: To look for intra- abdominal collectionand leak TECHNOLOGIST PROVIDED HISTORY: To look for intra- abdominal collection and leak Reason for Exam: To look for intra- abdominal collection and leak FINDINGS: Lower Chest: Somewhat increased lower lobe volume loss, greater on theleft with small associated effusions. Enteric tube again seen with its tip inthe stomach. No acute abnormality visualized cardiac structures. Organs: No acute abnormality liver, spleen, pancreas, or right adrenalgland; probably unchanged cm left adrenal mass, Hounsfield unit [id number]. Surgical absence gallbladder. Mild but likely unchanged dilatationbiliary tree. Symmetric renal perfusion with possible tiny nonobstructing stones butno hydronephrosis or suspicious focal abnormality. GI/Bowel: Probable rectal prolapse with moderate retained stoolthroughout large bowel but no abnormal dilatation or obvious wall thickening. Few diverticula seen, without CT evidence diverticulitis. Unremarkablesmall bowel, much of which is filled with contrast. No acute gastricabnormality. Pelvis: Low lying empty urinary bladder, within which Hunter catheter identified. To the left of the low lying possibly prolapsed rectum, thereis a 9.5 x 3.3 cm air and debris/fecal containing collection, contiguouswith cutaneous fistula and debris along the buttock crease. More anteriorly,the collection extends along the urinary bladder to near the pubicsymphysis. Posterosuperiorly, a decubitus ulcer is identified extending to thecoccyx, which is also contiguous with the above finding. Peritoneum/Retroperitoneum: Unremarkable vascular structures. No bulky lymphadenopathy. No pathologic free fluid or free air. Bones/Soft Tissues: Air abuts the coccyx and distal sacrum, but definitebony destruction not appreciated. Mild degenerative changes spine but noobvious acute bony abnormality. No sternal or acute soft tissue abnormality. IMPRESSION: 1. 9.5 x 3.3 cm air and debris/fecal containing collection to the left ofthe low lying possibly prolapsed rectum, contiguous with cutaneousfistula/debris along the buttock crease and a presumed decubitus ulcer, with extension anteriorly and posterosuperiorly, as described in detail above. 2. Probable rectal prolapse with moderate retained stool throughoutlarge bowel but no obstruction or colitis. 3. Additional findings, as above. us Vu Gao MD IM CT ORDERABLES Final Resu lt * (ABNORMAL) Vancomycin Level, Trough (07/21/2024 5:25 AM EDT) Vancomycin Tr 9.0(L) 10.0 - 20.0 ug/mL 07/21/2024 5:25 AM EDT W-21 Blood BLOOD SPECIMEN / Unknown 07/21/2024 5:25 AM EDT 07/21/2024 5:25 AM EDT Alisia Cuellar MD CHEMISTRY ORDERABLES Final Result Performing Organization Address [facility] Co de Phone Number W-[address] [place] [address] * PREVIOUS SPECIMEN (07/20/2024 7:50 PM EDT) Only the most recent of2 resultswithin the time period is included. 07/20/2024 7:50 PM EDT 07/20/2024 7:50 PM EDT Alisia Cuellar MD CHEMISTRY ORDERABLES Final Result Performing Organization Address [facility] Phone Number W-[address] [place] [address], [facility] [phone] * (ABNORMAL) Comprehensive Metabolic Panel (07/20/2024 7:50 PM EDT) Sodium 136 136 - 145 mmol/L 07/20/2024 7:50 PM EDT [facility] Potassium 4.5 3.7 - 5.3 mmol/L 07/20/2024 7:50 PM EDT W-21 Comment: Specimen hemolysis has exceeded the interference as defined by Sinan. Value may be falsely increased. Suggest recollection if clinically indicated. Chloride 103 98 - 107 mmol/L 07/20/2024 7:50 PM EDT [facility] CO2 17(L) 20 - 31 mmol/L 07/20/2024 7:50 PM EDT [facility] Anion Gap 16 9 - 16 mmol/L 07/20/2024 7:50 PM EDT [facility] Glucose 148(H) 74 - 99 mg/dL 07/20/2024 7:50 PM EDT [facility] BUN 50(H) 8 - 23 mg/dL 07/20/2024 7:50 PM EDT [facility] Creatinine 2.1(H) 0.6 - 0.9 mg/dL 07/20/2024 7:50 PM EDT [facility] Est, Glom Filt Rate 26(L) >60 mL/min/1. 73m2 07/20/2024 7:50 PM EDT W-21 Comment: These results are not intended for [...] therapy that affects renal tubular secretion. Calcium 7.4(L) 8.6 - 10.4 mg/dL 07/20/2024 7:50 PM EDT W-21 Total Protein 5.5(L) 6.6 - 8.7 g/dL 07/20/2024 7:50 PM EDT W-21 Albumin 2.3(L) 3.5 - 5.2 g/dL 07/20/2024 7:50 PM EDT W-21 Albumin/Globulin Ratio 0.7(L) 1.0 - 2.5 07/20/2024 7:50 PM EDT W-21 Total Bilirubin 0.4 0.0 - 1.2 mg/dL 07/20/2024 7:50 PM EDT W-21 Alkaline Phosphatase 339(H) 35 - 104 U/L 07/20/2024 7:50 PM EDT W-21 ALT 28 10 - 35 U/L 07/20/2024 7:50 PM EDT [facility] AST 45(H) 10 - 35 U/L 07/20/2024 7:50 PM EDT W-21 Comment: Specimen hemolysis has exceeded the interference as defined by Sinan. Value may be falsely increased. Suggest recollection if clinically indicated. 07/20/2024 7:50 PM EDT 07/20/2024 7:50 PM EDT us Alisia Cuellar MD CHEMISTRY ORDERABLES Final Result W-[address] [place] [address], [facility] [phone] * Lactic Acid (07/20/2024 7:06 PM EDT) Only the most recent of2 resultswithin the time period is included. Lactic Acid, Whole Blood 1.8 0.7 - 2.1 mmol/L 07/20/2024 7:06 PM EDT W-21 Blood BLOOD SPECIMEN / Unknown 07/20/2024 7:06 PM EDT 07/20/2024 7:06 PM EDT us Stephanie Blake PA-C CHEMISTRY ORDERABLES Fi nal Result W-[address] [phone] * (ABNORMAL) ECHO (TTE) COMPLETE (07/20/2024 2:57 PM EDT) Pathologist [facility] LA Minor [place] 5.5 cm [facility] LA Major [place] 5.9 cm [facility] LA Area 2C 18.9 cm2 [facility] LA Area 4C 16.1 cm2 [facility] LA Volume MOD A2C 52 22 - 52 mL [facility] CV CPA CS LA Volume MOD A4C 36 22 - 52 mL [facility] CV CPA CS LA Volume BP 45 22 - 52 mL [facility] LA Diameter 2.8 cm [facility] AV Mean Velocity 1.5 m/s [facility] AV Mean Gradient 10 mmHg [facility] AV Mean Gradient 10 mmHg [facility] AV VTI 36.5 cm [facility] AV Peak Velocity 2.1 m/s [facility] AV Peak Gradient 18 mmHg [facility] AV Area by VTI 2.0 cm2 [facility] AV Area by Peak Velocity 2.1 cm2 [facility] Aortic Root 2.7 cm [facility] Ascending Aorta 3.1 cm [facility] IVSd 1.0(A) 0.6 - 0.9 cm [facility] LVIDd 4.6 3.9 - 5.3 cm [facility] LVIDs 3.0 cm [facility] LVOT Diameter 1.8 cm [facility] LVOT Mean Gradient 6 mmHg [facility] LVOT VTI 28.3 cm [facility] LVOT Peak Velocity 1.8 m/s [facility] LVOT Peak Gradient 12 mmHg BS CV CPACS LVPWd 1.0(A) 0.6 - 0.9 cm [facility] LV E' Lateral Velocity 8.70 cm/s [facility] CV [facility]ACS LV E' Septal Velocity 10.00 cm/s [facility] CV [facility] LVOT Area 2.5 cm2 [facility] LVOT SV 72.0 ml [facility] MV E Wave Deceleration Time 246.0 ms [facility] MV A Velocity 0.96 m/s [facility] MV E Velocity 1.19 m/s [facility] PV Max Velocity 1.5 m/s [facility] PV Peak Gradient 9 mmHg [facility] CV [facility] RVIDd 4.9 cm [facility] RV Free Wall Peak S' 18.8 cm/s [facility] CV [facility] TAPSE 2.1 >=1.7 cm [facility] TR Max Velocity 2.86 m/s [facility] CV [facility] TR Peak Gradient 33 mmHg [facility] CV [facility] Fractional Shortening 2D 35 28 - 44 % [facility] LVIDd Index 1.97 cm/m2 [facility] LVIDs Index 1.28 cm/m2 [facility] LV RWT Ratio 0.43 [facility] LV Mass 2D 158.8 67 - 162 g [facility] LV Mass 2D Index 67.9 43 - 95 g/m2 [facility] MV E/A 1.24 [facility] E/E' Ratio (Averaged) 12.79 [facility] E/E' Lateral 13.68 [facility] E/E' Septal 11.90 [facility] LA Volume Index BP 19 16 - 34 ml/m2 [facility] LVOT Stroke Volume Index 30.8 mL/m2 [facility] LA Volume Index MOD A2C 22 16 - 34 ml/m2 [facility] LA Volume Index MOD A4C 15(A) 16 - 34 ml/m2 [facility] LA Size Index 1.20 cm/m2 [facility] LA/AO Root Ratio 1.04 [facility] Ao Root Index 1.15 cm/m2 [facility] Ascending Aorta Index 1.32 cm/m2 [facility] AV Velocity Ratio 0.86 [facility] LVOT:AV VTI Index 0.78 [facility] RITU/BSA VTI 0.9 cm2/m2 [facility] CV CPACS RITU/BSA Peak Velocity 0.9 cm2/m2 [facility] CV CPACS Est. RA Pressure 8 mmHg [facility] CV [facility]ACS RVSP 41 mmHg [facility] CV CPACS EF Physician 60 % BS CV CPACS Anatomical Region Laterality Modality Echocardiography Narrative 07/20/2024 4:10 PM EDT Left Ventricle: Normal left ventricular systolic function with a visually estimated EF of 55 - 60%. Left ventricle size is normal. Normal wall thickness. Normal wall motion. Normal diastolic function. Right Ventricle: Right ventricle is dilated. Normal systolic function. Tricuspid Valve: Mild regurgitation. Mildly elevated RVSP, consistent with mild pulmonary hypertension. RVSP is 41 mmHg. Right Atrium: Right atrium is dilated. Image quality is technically difficult. Left Ventricle Normal left ventricular systolic function with a visually estimated EF of 55 - 60%. Left ventricle size is normal. Normal wall thickness. Normal wall motion. Normal diastolic function. Right Ventricle Right ventricle is dilated. Normal systolic function. TAPSE is normal. TDI systolic excursion is normal. TAPSE is 2.1 cm. RV Free Wall Peak S' is 18.8 cm/s. Left Atrium Left atrium size is normal. Left atrial volume index is normal (16-34 mL/m2) mL/m2. LA Volume Index BP is 19 ml/m2. Right Atrium Right atrium is dilated. IVC/SVC Patient is ventilated, cannot use IVC diameter to estimate right atrial pressure. IVC is dilated. Mitral Valve Valve structure is normal. No significant regurgitation. No stenosis noted. Tricuspid Valve Valve structure is normal. Mild regurgitation. No stenosis noted. Mildly elevated RVSP, consistent with mild pulmonary hypertension. RVSP is 41 mmHg. Aortic Valve Trileaflet valve. No regurgitation. No stenosis. Pulmonic Valve Valve structure is normal. Physiologically normal regurgitation. No stenosis noted. Ascending Aorta Normal sized aortic root and ascending aorta. Pericardium There is evidence of epicardial fat. No pericardial effusion. Septum No interatrial shunt visualized with color Doppler. Study Details Image quality: technically difficult. The view(s) performed were parasternal, apical, subcostal and suprasternal. Color flow Doppler was performed and pulse wave and/or continuous wave Doppler was performed. No contrast was given. Echo performed at the bedside in ICU. Jenae Yue Ulisses CV ECHO ORDERABLES Final Resul t * (ABNORMAL) Myoglobin, Blood (07/20/2024 12:38 PM EDT) Myoglobin 549(H) 25 - 58 ng/mL 07/20/2024 12:38 PM EDT [facility] 07/20/2024 12:3 8 PM EDT 07/20/2024 12:43 PM EDT Alisia Cuellar MD CHEMISTRY ORDERABLES Final Result Performing Organization Address [facility] Co de Phone Number [facility] [address] [place] [address], [facility] [phone] * (ABNORMAL) Troponin (07/20/2024 12:38 PM EDT) Pathologist [facility] Troponin, High Sensitivity 29(H) 0 - 14 ng/L 07/20/2024 12:38 PM EDT [facility] Comment:High Sensitivity Tro ponin values cannot be compared with other Troponin methodologies. 07/20/2024 12:3 8 PM EDT 07/20/2024 12:43 PM EDT Alisia Cuellar MD CHEMISTRY ORDERABLES Final Result Performing Organization Address [facility]/ZIP Co de Phone Number [facility] [address] [place] [address], [facility] [phone] * (ABNORMAL) CK (07/20/2024 12:38 PM EDT) Total CK 353(H) 26 - 192 U/L 07/20/2024 12:38 PM EDT [facility] 07/20/2024 12:3 8 PM EDT 07/20/2024 12:43 PM EDT Alisia Cuellar MD CHEMISTRY ORDERABLES Final Result [place] [id number] [place] [address], [facility] [phone] * OR INSJ NON-TUNNELED CENTRAL VENOUS CATH AGE 5 YR/> (07/20/2024 11:04 AM EDT) Narrative Alisia Cuellar MD - 07/20/2024 11:04 AM EDT Alisia Cuellar MD 07/22/2024 6:04 AM CENTRAL LINE Date/Time: 07/20/2024 11:04 AM Performed by: Alessio Rea MD Authorized by: Alisia Cuellar MD Consent: The procedure was performed in an emergent situation. Required items: required blood products, implants, devices, and special equipment available Patient identity confirmed: provided demographic data, hospital-assigned identification number and anonymous protocol, patient vented/unresponsive Time out: Immediately prior to procedure a time out was called to verify the correct patient, procedure, equipment, network and threat support specialist and site/side marked as required. Indications: vascular access Anesthesia: see MAR for details Sedation: Patient sedated: yes Sedatives: see MAR for details and propofol Analgesia: fentanyl Vitals: Vital signs were monitored during sedation. Preparation: skin prepped with 2% chlorhexidine Skin prep agent dried: skin prep agent completely dried prior to procedure Sterile barriers: all five maximum sterile barriers used - cap, mask, sterile gown, sterile gloves, and large sterile sheet Hand hygiene: hand hygiene performed prior to central venous catheter insertion Location details: left internal jugular Site selection rationale: good visualization obtained, patient head turned on the right side. Patient position: flat Catheter type: triple lumen Catheter size: 7 Fr Pre-procedure: landmarks identified Ultrasound guidance: yes Sterile ultrasound techniques: sterile gel and sterile probe covers were used Number of attempts: 1 Successful placement: yes Post-procedure: line sutured and dressing applied Assessment: blood return through all ports, placement verified by x-ray and no pneumothorax on x-ray Patient tolerance: patient tolerated the procedure well with no immediate complications Comments: Patient was intubated and sedated on ventilation. us Alisia Cuellar MD PROCEDURE/MINOR SURGICAL O RDERABLES Final Result * Notification Panel, POC (07/20/2024 6:31 AM EDT) Only the most recent of2 resultswithin the time period is included. CRITICAL ACTION Notifyphysician 08/2024 6:31 AM EDT W-21 Critical Notification Juan C 07/20/2024 6:31 AM EDT W-21 Critical Value Read Back Yes 07/20/2024 6:31 AM EDT W-21 CRITICAL NOTIFICATION DATE/TIME 506:39:00 07/20/2024 6:31 AM EDT W-21 07/20/2024 6:31 AM EDT 07/20/2024 6:41 AM EDT us Alisia Cuellar MD POINT OF CARE TEST ORDERAB LES Final Result Performing Organization Address [facility] Co de Phone Number W-[address] [place] [address], [facility] [phone] * (ABNORMAL) Microscopic Urinalysis (07/20/2024 3:52 AM EDT) WBC, UA 10 TO 20 0 - 5 /HPF 07/20/2024 3:52 AM EDT [facility] RBC, UA 0 TO 2 0 - 2 /HPF 07/20/2024 3:52 AM EDT [facility] Casts UA 0 TO 2 0 - 2 /LPF 07/20/2024 3:52 AM EDT W-21 Casts UA HYALINE 0 - 2 /LPF 07/20/2024 3:52 AM EDT W-21 Epithelial Cells, UA 20 TO 50 0 - 5 /HPF 07/20/2024 3:52 AM EDT [facility] Bacteria, UA MODERATE(A) None 07/20/2024 3:52 AM EDT W-21 07/20/2024 3:52 AM EDT 07/20/2024 3:52 AM EDT us Alisia Cuellar MD URINE ORDERABLES Final Res ult Performing Organization Address City/[facility]/ZIP Co de Phone Number SOLIS [address] [place] [id number], [facility] [phone] * (ABNORMAL) Urinalysis (07/20/2024 3:52 AM EDT) Color, UA Dark Yellow(A) Yellow 07/20/2024 3:52 AM EDT [facility] Turbidity UA Turbid(A) Clear 07/20/2024 3:52 AM EDT [facility] Glucose, Ur TRACE(A) NEGATIVE mg/dL 07/20/2024 3:52 AM EDT [facility] Bilirubin, Urine NEGATIVE NEGATIVE 07/20/2024 3:52 AM EDT [facility] Ketones, Urine NEGATIVE NEGATIVE mg/dL 07/20/2024 3:52 AM EDT [facility] Specific [place], UA 1.019 1.005 - 1.030 07/20/2024 3:52 AM EDT W-21 Urine Hgb MODERATE(A) NEGATIVE 07/20/2024 3:52 AM EDT [facility] pH, Urine 5.0 5.0 - 8.0 07/20/2024 3:52 AM EDT [facility] Protein, UA 2+(A) NEGATIVE mg/dL 07/20/2024 3:52 AM EDT W-21 Urobilinogen, Urine Normal 0.0 - 1.0 EU/dL 07/20/2024 3:52 AM EDT [facility] Nitrite, Urine NEGATIVE NEGATIVE 07/20/2024 3:52 AM EDT [facility] Leukocyte Esterase, Urine NEGATIVE NEGATIVE 07/20/2024 3:52 AM EDT W-21 Urine URINE SPECIMEN OBTAINED BY SINGLE CATHETERIZATION OF URINARY BLADDER / Unknown 07/20/2024 3:52 AM EDT 07/20/2024 3:52 AM EDT us Alisia Cuellar MD URINE ORDERABLES Final Res [place] [address], [facility] [phone] * Vancomycin Level, Random (07/20/2024 3:32 AM EDT) Pathologist [facility] Vancomycin Rm 16.8 5.0 - 40.0 ug/mL 07/20/2024 3:32 AM EDT [facility] Comment: Higher trough serum vancomycin concentrations of 15-20 ug/mL are recommended for complicated infections such as bacteremia, endocarditis, osteomyelitis, meningitis, and hospital acquired pneumonia. Blood BLOOD SPECIMEN / Unknown 07/20/2024 3:32 AM EDT 07/20/2024 3:32 AM EDT Alisia Cuellar MD CHEMISTRY ORDERABLES Final Result Performing Organization Address [facility] de Phone Number [employer] [address] [place] [address] * (ABNORMAL) Protime-INR (07/19/2024 7:33 PM EDT) Protime 16.8(H) 11.7 - 14.9 sec 07/19/2024 7:33 PM EDT W-21 INR 1.3 07/19/2024 7:33 PM EDT [facility] Comment: Therapeutic Range: Moderate Anticoagulant Intensity: INR = 2.0-3.0 High Anticoagulant Intensity: INR = 2.5-3.5 Blood BLOOD SPECIMEN / Unknown 07/19/2024 7:33 PM EDT 07/19/2024 7:38 PM EDT Stephanie Blake PA-C HEMATOLOGY ORDERABLES F inal Result Performing Organization Address [facility] Co de Phone Number W-[address] [place] [address] * (ABNORMAL) Procalcitonin (07/19/2024 6:33 PM EDT) Procalcitonin 2.42(H) 0.00 - 0.09 ng/mL 07/19/2024 6:33 PM EDT W-21 Comment: Suspected Sepsis: <0.50 ng/mL Low likelihood of sepsis. 0.50-2.00 ng/mL Increased likelihood of sepsis. Antibiotics encouraged. >2.00 ng/mL High risk of sepsis/shock. Antibiotics strongly encouraged. Suspected Lower Resp Tract Infections: <0.24 ng/mL Low likelihood of bacterial infection. >0.24 ng/mL Increased likelihood of bacterial infection. Antibiotics encouraged. With successful antibiotic therapy, PCT levels should decrease rapidly. (Half- life of 24 to 36 hours.) Procalcitonin values from samples collected within the first 6 hours of systemic infection may still be low. Retesting may be indicated. Values from day 1 and day 4 can be entered into the Change in Procalcitonin Calculator ([email or web address]) to determine the patient's Mortality Risk Prognosis In healthy neonates, plasma Procalcitonin (PCT) concentrations increase gradually after , reaching peak values at about 24 hours of age then decrease to normal values below 0.5 ng/mL by 48-72 hours of age. Blood BLOOD SPECIMEN / Unknown 07/19/2024 6:33 PM EDT 07/19/2024 6:38 PM EDT Silvano Hopson MD CHEMISTRY ORDERABLES Final R esult Performing Organization Address City/[facility]/ZIP Co de Phone Number [address] [place] [address], [facility] [phone] * (ABNORMAL) Sedimentation Rate (07/19/2024 6:33 PM EDT) Pathologist [facility] Sed Rate, Automated >130(H) 0 - 30 mm/Hr 07/19/2024 6:33 PM EDT W-21 Blood BLOOD SPECIMEN / Unknown 07/19/2024 6:33 PM EDT 07/19/2024 6:38 PM EDT Silvano Hopson MD HEMATOLOGY ORDERABLES Final Result Performing Organization Address [facility]/ZIP Co de Phone Number [address] [place] [address], [facility] [phone] * (ABNORMAL) Culture, Anaerobic and Aerobic (07/19/2024 10:30 AM EDT) Specimen Description .BUTTOCK, LEFT 07/19/2024 10:30 AM EDT [facility] Direct Exam RARE NEUTROPHILS 025 10:30 AM EDT [facility] Direct Exam MIXED BACTERIAL MORPHOTYPES SEEN ON GRAM STAIN. 07/19/2024 10:30 AM EDT [facility] Culture BACTEROIDES THETAIOTAOMICRON MODERATE GROWTH Identification by MALDI-TOF BETA LACTAMASE POSITIVE(A) 07/19/2024 10:30 AM EDT [facility] Culture NORMAL SKIN CITLALI 025 10:30 AM EDT [facility]21 SPECIMEN FROM WOUND / Unknown 07/19/2024 10:30 AM EDT 07/19/2024 11:33 PM EDT Alisia Cuellar MD MICROBIOLOGY - GENERAL ORD ERABLES Final Result Performing Organization Address [facility]/ZIP Co de Phone Number W-[address] [place] [address], [facility] [phone] * Culture, Fungus (07/19/2024 10:30 AM EDT) Specimen Description .BUTTOCK, LEFT 07/19/2024 10:30 AM EDT [facility]21 Direct Exam NO FUNGAL ELEMENTS SEEN 07/19/2024 10:30 AM EDT [facility]-21 Culture NO GROWTH 30 DAYS 07/19/2024 10:30 AM EDT [facility]-21 SPECIMEN FROM WOUND / Unknown 07/19/2024 10:30 AM EDT 07/19/2024 11:33 PM EDT Alisia Cuellar MD MICROBIOLOGY - GENERAL ORD ERABLES Final Result Performing Organization Address City/[facility]/ZIP Co de Phone Number W-[address] [place] [address], [facility] [phone] from Last 3 Months Insurance [place] [facility] MEDICARE Advance Directives * Full Code (Latest Code Status on File) Date Activated Date Inactivated Comments 07/19/2024 7:24 PM 07/30/2024 7:45 PM * Full Code Date Activated Date Inactivated Comments 09/02/2022 5:05 AM 09/20/2022 6:07 PM Care Teams Cross Tie Cutter Relationship Specialty Start Date End Date Candida Brown, CAT - DYNAMOMETER TUNER [address] [place] [address] PCP - General Nurse Practitioner 09/02/22
--- OUTSIDE RECORDS SUMMARY | 2024-09-24 15:12 | XMS_ITS | Encounter Summary ---
Author Organization [facility] Address [address] [place] [address] Care Team Providers Care Fish Housekeeper Name Role Phone Unavailable Primary Care Provider Unavailabl e Encounter Details Date Type Department Care Team (Late st Contact Info) Description 08/05/2024 Lab Requisition [facility] [address] [place] [phone] Rodolfo Maddox MD [address] [place] [phone] Respiratory failure, unspecified, unspecified whether with hypoxia [...] Procedure Name Priority Date/Time Associated Diagnosis Comments BLOOD CULTURE Routine 08/05/2024 2:24 PM EDT Respiratory failure, unspecified, unspecified whether with hypoxia or hypercapnia (CMS/HCC) BLOOD CULTURE Routine 08/05/2024 2:23 PM EDT Respiratory failure, unspecified, unspecified whether with hypoxia or hypercapnia (CMS/HCC) documented in this encounter Results * Blood culture (08/05/2024 2:24 PM EDT) Blood Culture No growth at 5 days JOSE 08/10/2024 3:01 PM EDT [facility] ([facility]) Blood Venous blood specimen / Unknown Venipuncture / Unknown 08/05/2024 2:24 PM EDT 08/05/2024 2:43 PM EDT us Rodolfo Maddox MD LAB MICROBIOLOGY - GENERAL ORDERABLES Final Result [facility]) [address] [place], [place] [id number] * Blood culture (08/05/2024 2:23 PM EDT) Blood Culture No growth at 5 days JOSE 08/10/2024 3:01 PM EDT [facility] ([facility]) Blood Venous blood specimen / Unknown Venipuncture / Unknown 08/05/2024 2:23 PM EDT 08/05/2024 2:43 PM EDT us Rodolfo Maddox MD LAB MICROBIOLOGY - GENERAL ORDERABLES Final Result [facility] [address] [place] [address] documented in this encounter Visit Diagnoses Diagnosis Respiratory failure, unspecified, unspecified whether with hypoxia or hypercapnia (CMS/HCC) documented in this encounter
--- OUTSIDE RECORDS SUMMARY | 2024-09-24 15:12 | XMS_ITS | Encounter Summary ---
Author Organization [facility] Address [address] [place] [address] Care Team Providers Care Home Child Care Provider Name Role Phone Candida Brown COGENERATION TECHNICIAN Unavailable [phone] Mark Singh MD Primary Care Provider [phone] Unallocated, Noms Provider Primary Care Provi alice Mark Singh MD Primary Care Provider [phone] Reason for Visit * Reason Comments Med Refill Encounter Details Date Type Department Care Team (Late st Contact Info) Description 09/28/2023 Refill [facility] [address] [place] [address] Candida Brown, COGENERATION TECHNICIAN [address] [place] [address] Moderate persistent asthma with acute exacerbation in adult (HCC) Social History Tobacco Use Types Packs/Day Years [...] persistent asthma with acute exacerbation in adult (HCC) documented in this encounter Additional Health Concerns Assessment Noted Time PHQ-9 Depression Total Score: 4 07/17/19 24 2:04 PM EDT documented as of this encounter Care Teams Home Child Care Provider Relationship Specialty Start Date End Date Mark Singh MD [address] [place] [phone] PCP - General Family Medicine 03/03/23 12/05/23 Unallocated, Noms Provider, [address] [place] [address] PCP - General Family Medicine 12/06/23 12/13/23 Mark Singh MD [address] [place] [phone] PCP - General Family Medicine 12/14/23 Candida Brown NP [address] [place] [phone] Nurse Practitioner Family Medicine 11/13/22 documented as of this encounter
--- OUTSIDE RECORDS SUMMARY | 2024-09-24 15:12 | XMS_ITS | Encounter Summary ---
Author Organization [facility] Address [address] [place] [address] Care Team Providers Care Library Customer Service Clerk Name Role Phone Unavailable Primary Care Provider Unavailabl e Encounter Details Date Type Department Care Team (Late st Contact Info) Description 08/05/2024 Lab Requisition [facility] [address] [place] [phone] Rodolfo Maddox MD [address] [place] [address] Respiratory failure, unspecified, unspecified whether with hypoxia [...] Procedure Name Priority Date/Time Associated Diagnosis Comments WOUND CULTURE Routine 08/05/2024 1:15 PM EDT Respiratory failure, unspecified, unspecified whether with hypoxia or hypercapnia (CMS/HCC) documented in this encounter Results * (ABNORMAL) Wound culture (08/05/2024 1:15 PM EDT) Wound Culture Rare Growth Pseudomonas aeruginosa(A) JOSE 08/08/2024 9:58 AM EDT [facility] ([facility]) Comment: Gram Stain Result No polymorphonuclear leukocytes seen 08/08/2024 9:58 AM EDT [facility] ([facility]) Gram Stain Result Rare Budding yeast with pseudohyphae 08/08/2024 9:58 AM EDT [facility] ([facility]) Swab 08/05/2024 1:15 PM EDT 08/05/2024 2:46 PM EDT Narrative [facility] ([facility]) - 08/08/2024 9:58 AM EDT Light Growth Skin Surekha Organism Antibiotic Method Susceptibility Pseudomonas aeruginosa Cefepime JOSE 2 ug/ml: Susceptible Pseudomonas aeruginosa Ciprofloxacin JOSE <=0.25 ug/ml: Susceptible Pseudomonas aeruginosa Levofloxacin JOSE <=0.5 ug/ml: Susceptible Pseudomonas aeruginosa Meropenem JOSE <=0.5 ug/ml: Susceptible Pseudomonas aeruginosa Piperacillin + Tazobactam JOSE 8/4 ug/ml: Susceptible Pseudomonas aeruginosa Tobramycin JOSE <=2 ug/ml: Susceptible us Rodolfo Maddox MD LAB MICROBIOLOGY - GENERAL ORDERABLES Final Result [facility] ([facility]) [address] [place] [address] documented in this encounter Visit Diagnoses Diagnosis Respiratory failure, unspecified, unspecified whether with hypoxia or hypercapnia (CMS/HCC) documented in this encounter
--- OUTSIDE RECORDS SUMMARY | 2024-09-24 15:12 | XMS_ITS | Encounter Summary ---
Author Organization [facility] Address [address] [place] [address] Care Team Providers Care Lpn Rn Name Role Phone Unavailable Primary Care Provider Unavailabl e Encounter Details Date Type Department Care Team (Late st Contact Info) Description 08/30/2024 Lab Requisition [facility] Lab [address] [place] [address] Rodolfo Maddox MD [address] [place] [address] Social History Tobacco Use Types Packs/Day Years [...] Priority Date/Time Associated Diagnosis Comments MAGNESIUM Routine 08/30/2024 4:00 AM EDT BASIC METABOLIC PANEL Routine 08/30/2024 4:00 AM EDT CBC WITH AUTO DIFFERENTIAL Routine 08/30/2024 3:50 AM EDT CBC AND DIFFERENTIAL Routine 08/30/2024 3:50 AM EDT documented in this encounter Results * (ABNORMAL) Magnesium (08/30/2024 4:00 AM EDT) Magnesium 1.8(L) 1.9 - 2.7 mg/dL 08/30/2024 5:[address] [facility] ([facility]) Blood Venous blood specimen / Unknown Venipuncture / Unknown 08/30/2024 4:00 AM EDT 08/30/2024 4:16 AM EDT us Rodolfo Maddox MD LAB BLOOD ORDERABLES Final Result [facility] ([facility]) [address] [place] [address] * (ABNORMAL) Basic metabolic panel (08/30/2024 4:00 AM EDT) Sodium 135(L) 136 - 145 mmol/L 08/30/2024 5:[address] [facility] ([facility]) Potassium 4.1 3.5 - 5.1 mmol/L 08/30/2024 5:[address] [facility] ([facility]) Chloride 97(L) 98 - 107 mmol/L 08/30/2024 5:[address] [facility] ([facility]) CO2 31 21 - 31 mmol/L 08/30/2024 5:[address] [facility] ([facility]) BUN 25 7 - 25 mg/dL 08/30/2024 5:[address] [facility] ([facility]) Creatinine 0.91 0.60 - 1.20 mg/dL 08/30/2024 5:[address] [facility] ([facility]) Glucose 218(H) 70 - 100 mg/dL 08/30/2024 5:[address] [facility] ([facility]) Calcium 8.5(L) 8.6 - 10.3 mg/dL 08/30/2024 5:[address] [facility] ([facility]) Anion Gap 11 7 - 20 mmol/L 08/30/2024 5:[address] [facility] ([facility]) eGFR 71.3 >60.0 mL/min/1. 73m*2 08/30/2024 5:[address] [facility] ([facility]) Comment:The [facility] s estimated glomerular filtration rate (eGFR) [...] any one group of individuals. BUN/Creatinine Ratio 27.5 08/13 5:[address] [facility] ([facility]) Blood Venous blood specimen / Unknown Venipuncture / Unknown 08/30/2024 4:00 AM EDT 08/30/2024 4:16 AM EDT us Rodolfo Maddox MD LAB BLOOD ORDERABLES Final Result [facility]) [address] [place] [address] * (ABNORMAL) CBC auto differential (08/30/2024 3:50 AM EDT) Auto WBC 8.17 4.00 - 10.60 10*3/uL 08/30/2024 4:[address] [facility] ([facility]) RBC 3.48(L) 3.80 - 5.00 10*6/uL 08/30/2024 4:[address] [facility] ([facility]) Hemoglobin 10.4(L) 12.0 - 15.0 g/dL 08/30/2024 4:[address] [facility] ([facility]) Hematocrit 31.5(L) 36.0 - 45.0 % 08/30/2024 4:[address] [facility] ([facility]) MCV 90.5 82.0 - 98.0 fL 08/30/2024 4:[address] [facility] ([facility]) MCH 29.9 27.0 - 33.0 pg 08/30/2024 4:[address] [facility] ([facility]) MCHC 33.0 32.0 - 35.0 g/dL 08/30/2024 4:[address] [facility] ([facility]) RDW 13.8 11.5 - 15.0 % 08/30/2024 4:[address] [facility] ([facility]) Neutrophils % 52.3 40.0 - 72.0 % 08/30/2024 4:[address] [facility] ([facility]) Lymphocytes % 32.1 20.0 - 45.0 % 08/30/2024 4:[address] [facility] ([facility]) Monocytes % 10.8 5.0 - 12.0 % 08/30/2024 4:[address] [facility] ([facility]) Eosinophils % 3.7 0.0 - 6.0 % 08/30/2024 4:31 AM [facility] ([facility]) Basophils % 0.7 0.0 - 1.0 % 08/30/2024 4:31 AM [facility] ([facility]) Neutrophils Absolute 4.28 1.60 - 7.60 10*3/uL 08/30/2024 4:31 AM [facility] ([facility]) Lymphocytes Absolute 2.62 1.20 - 4.00 10*3/uL 08/30/2024 4:31 AM [facility] ([facility]) Monocytes Absolute 0.88 0.10 - 1.00 10*3/uL 08/30/2024 4:31 AM [facility] ([facility]) Eosinophils Absolute 0.30 0.00 - 0.50 10*3/uL 08/30/2024 4:[address] [facility] ([facility]) Basophils Absolute 0.06 0.00 - 0.20 10*3/uL 08/30/2024 4:31 AM [facility] ([facility]) Platelets 585(H) 150 - 400 10*3/uL 08/30/2024 4:31 AM [facility] ([facility]) nRBC % 0.0 0 % 08/30/2024 4:31 AM [facility] ([facility]) Immature Granulocytes % 0.4 0.0 - 1.0 % 08/30/2024 4:[address] [facility] ([facility]) Immature Granulocytes Absolute 0.03 0.00 - 0.20 10*3/uL 08/30/2024 4:[address] [facility] ([facility]) Blood Venous blood specimen / Unknown Venipuncture / Unknown 08/30/2024 3:50 AM EDT 08/30/2024 4:15 AM EDT us Rodolfo Maddox MD LAB BLOOD ORDERABLES Final Result [facility] ([facility]) [address] [place] [address] documented in this encounter Visit Diagnoses Not on filedocumented in this encounter
--- OUTSIDE RECORDS SUMMARY | 2024-09-24 15:12 | XMS_ITS | Encounter Summary ---
Author Organization [facility] Address [address] [place] [address] Care Team Providers Care Needle Punch Operator Name Role Phone Unavailable Primary Care Provider Unavailabl e Encounter Details Date Type Department Care Team (Late st Contact Info) Description 08/07/2024 Lab Requisition [facility] [address] [place] [address] Rodolfo Maddox MD [address] [place] [address] Social History Tobacco Use Types Packs/Day Years [...] Diagnosis Comments CBC WITH AUTO DIFFERENTIAL Routine 08/08/2024 4:00 AM EDT CBC AND DIFFERENTIAL Routine 08/08/2024 4:00 AM EDT MAGNESIUM Routine 08/08/2024 4:00 AM EDT BASIC METABOLIC PANEL Routine 08/08/2024 4:00 AM EDT documented in this encounter Results * (ABNORMAL) CBC auto differential (08/08/2024 4:00 AM EDT) Auto WBC 6.27 4.00 - 10.60 10*3/uL 08/08/2024 5:33 AM EDT [facility] ([facility]) RBC 3.17(L) 3.80 - 5.00 10*6/uL 08/08/2024 5:33 AM EDT [facility] ([facility]) Hemoglobin 9.3(L) 12.0 - 15.0 g/dL 08/08/2024 5:33 AM EDT [facility] ([facility]) Hematocrit 30.2(L) 36.0 - 45.0 % 08/08/2024 5:33 AM T [facility] ([facility]) MCV 95.3 82.0 - 98.0 fL 08/08/2024 5:33 AM T [facility] ([facility]) MCH 29.3 27.0 - 33.0 pg 08/08/2024 5:33 AM T [facility] ([facility]) MCHC 30.8(L) 32.0 - 35.0 g/dL 08/08/2024 5:33 AM [facility] ([facility]) RDW 15.1(H) 11.5 - 15.0 % 08/08/2024 5:33 AM [facility] ([facility]) Neutrophils % 51.8 40.0 - 72.0 % 08/08/2024 5:33 AM T [facility] ([facility]) Lymphocytes % 29.2 20.0 - 45.0 % 08/08/2024 5:33 AM T [facility] ([facility]) Monocytes % 15.0(H) 5.0 - 12.0 % 08/08/2024 5:33 AM EDT [facility] ([facility]) Eosinophils % 2.7 0.0 - 6.0 % 08/08/2024 5:33 AM EDT [facility] ([facility]) Basophils % 0.8 0.0 - 1.0 % 08/08/2024 5:33 AM T [facility] ([facility]) Neutrophils Absolute 3.25 1.60 - 7.60 10*3/uL 08/08/2024 5:33 AM EDT [facility] ([facility]) Lymphocytes Absolute 1.83 1.20 - 4.00 10*3/uL 08/08/2024 5:33 AM EDT [facility] ([facility]) Monocytes Absolute 0.94 0.10 - 1.00 10*3/uL 08/08/2024 5:33 AM EDT [facility] ([facility]) Eosinophils Absolute 0.17 0.00 - 0.50 10*3/uL 08/08/2024 5:33 AM EDT [facility] ([facility]) Basophils Absolute 0.05 0.00 - 0.20 10*3/uL 08/08/2024 5:33 AM EDT [facility] ([facility]) Platelets 535(H) 150 - 400 10*3/uL 08/08/2024 5:33 AM EDT [facility] ([facility]) nRBC % 0.0 0 % 08/08/2024 5:33 AM EDT [facility] ([facility]) Immature Granulocytes % 0.5 0.0 - 1.0 % 08/08/2024 5:33 AM EDT [facility] ([facility]) Immature Granulocytes Absolute 0.03 0.00 - 0.20 10*3/uL 08/08/2024 5:33 AM EDT [facility] ([facility]) Blood Venous blood specimen / Unknown Venipuncture / Unknown 08/08/2024 4:00 AM EDT 08/08/2024 4:43 AM EDT us Rodolfo Maddox MD LAB BLOOD ORDERABLES Final Result [facility]) [address], [place] [id number] * Magnesium (08/08/2024 4:00 AM EDT) Magnesium 1.9 1.9 - 2.7 mg/dL 08/08/2024 5:47 AM EDT [facility]) Blood Venous blood specimen / Unknown Venipuncture / Unknown 08/08/2024 4:00 AM EDT 08/08/2024 4:42 AM EDT us Rodolfo Maddox MD LAB BLOOD ORDERABLES Final Result [facility] ([facility]) [address] [facility] [address] [place] [address] * (ABNORMAL) Basic metabolic panel (08/08/2024 4:00 AM EDT) Sodium 141 136 - 145 mmol/L 08/08/2024 5:47 AM EDT [facility] ([facility]) Potassium 3.7 3.5 - 5.1 mmol/L 08/08/2024 5:47 AM EDT [facility] ([facility]) Chloride 103 98 - 107 mmol/L 08/08/2024 5:47 AM EDT [facility] ([facility]) CO2 31 21 - 31 mmol/L 08/08/2024 5:47 AM EDT [facility] ([facility]) BUN 11 7 - 25 mg/dL 08/08/2024 5:47 AM EDT [facility] ([facility]) Creatinine 0.70 0.60 - 1.20 mg/dL 08/08/2024 5:47 AM EDT [facility] ([facility]) Glucose 153(H) 70 - 100 mg/dL 08/08/2024 5:47 AM EDT [facility] ([facility]) Calcium 7.7(L) 8.6 - 10.3 mg/dL 08/08/2024 5:47 AM EDT [facility] ([facility]) Anion Gap 11 7 - 20 mmol/L 08/08/2024 5:47 AM EDT [facility] ([facility]) eGFR 97.7 >60.0 mL/min/1. 73m*2 08/08/2024 5:47 AM EDT [facility] ([facility]) Comment:[facility] s estimated glomerular filtration rate [...] any one group of individuals. BUN/Creatinine Ratio 15.7 07/15 5:47 AM EDT [facility] ([facility]) Blood Venous blood specimen / Unknown Venipuncture / Unknown 08/08/2024 4:00 AM EDT 08/08/2024 4:42 AM EDT us Rodolfo Maddox MD LAB BLOOD ORDERABLES Final Result [facility] ([facility]) [address] [place] [address] documented in this encounter Visit Diagnoses Not on filedocumented in this encounter
--- OUTSIDE RECORDS SUMMARY | 2024-09-24 15:12 | XMS_ITS | Encounter Summary ---
Author Organization [facility] Address [address] [place] [address] Care Team Providers Care Forging Die Finisher Name Role Phone Unavailable Primary Care Provider Unavailabl e Encounter Details Date Type Department Care Team (Late st Contact Info) Description 08/20/2024 Lab Requisition [facility] [address] [place] [address] Rodolfo Maddox MD [facility] [place] [address] Social History Tobacco Use Types Packs/Day Years [...] Diagnosis Comments CBC WITH AUTO DIFFERENTIAL Routine 08/21/2024 3:50 AM EDT CBC AND DIFFERENTIAL Routine 08/21/2024 3:50 AM EDT PHOSPHORUS Routine 08/21/2024 3:50 AM EDT MAGNESIUM Routine 08/21/2024 3:50 AM EDT COMPREHENSIVE METABOLIC PANEL Routine 08/21/2024 3:50 AM EDT documented in this encounter Results * (ABNORMAL) CBC auto differential (08/21/2024 3:50 AM EDT) Auto WBC 10.40 4.00 - 10.60 10*3/uL 08/21/2024 5:40 AM EDT [facility] ([facility]) RBC 3.48(L) 3.80 - 5.00 10*6/uL 08/21/2024 5:40 AM EDT [facility] ([facility]) Hemoglobin 10.4(L) 12.0 - 15.0 g/dL 08/21/2024 5:40 AM EDT [facility] ([facility]) Hematocrit 33.2(L) 36.0 - 45.0 % 08/21/2024 5:40 AM EDT [facility] ([facility]) MCV 95.4 82.0 - 98.0 fL 08/21/2024 5:40 AM EDT [facility] ([facility]) MCH 29.9 27.0 - 33.0 pg 08/21/2024 5:40 AM EDT [facility] ([facility]) MCHC 31.3(L) 32.0 - 35.0 g/dL 08/21/2024 5:40 AM EDT [facility] ([facility]) RDW 15.1(H) 11.5 - 15.0 % 08/21/2024 5:40 AM EDT [facility] ([facility]) Neutrophils % 63.7 40.0 - 72.0 % 08/21/2024 5:40 AM T [facility] ([facility]) Lymphocytes % 22.3 20.0 - 45.0 % 08/21/2024 5:40 AM EDT [facility] ([facility]) Monocytes % 10.3 5.0 - 12.0 % 08/21/2024 5:40 AM EDT [facility] ([facility]) Eosinophils % 2.7 0.0 - 6.0 % 08/21/2024 5:40 AM EDT [facility] ([facility]) Basophils % 0.7 0.0 - 1.0 % 08/21/2024 5:40 AM EDT [facility] ([facility]) Neutrophils Absolute 6.63 1.60 - 7.60 10*3/uL 08/21/2024 5:40 AM EDT [facility] ([facility]) Lymphocytes Absolute 2.32 1.20 - 4.00 10*3/uL 08/21/2024 5:40 AM EDT [facility] ([facility]) Monocytes Absolute 1.07(H) 0.10 - 1.00 10*3/uL 08/21/2024 5:40 AM EDT [facility] ([facility]) Eosinophils Absolute 0.28 0.00 - 0.50 10*3/uL 08/21/2024 5:40 AM EDT [facility] ([facility]) Basophils Absolute 0.07 0.00 - 0.20 10*3/uL 08/21/2024 5:40 AM EDT [facility] ([facility]) Platelets 429(H) 150 - 400 10*3/uL 08/21/2024 5:40 AM EDT [facility] ([facility]) nRBC % 0.0 0 % 08/21/2024 5:40 AM EDT [facility] ([facility]) Immature Granulocytes % 0.3 0.0 - 1.0 % 08/21/2024 5:40 AM EDT [facility] ([facility]) Immature Granulocytes Absolute 0.03 0.00 - 0.20 10*3/uL 08/21/2024 5:40 AM EDT [facility] ([facility]) Blood Venous blood specimen / Unknown 08/21/2024 3:50 AM EDT 08/21/2024 5:08 AM EDT us Rodolfo Maddox MD LAB BLOOD ORDERABLES Final Result [facility] ([facility]) [address] [place] [address] * (ABNORMAL) Phosphorus (08/21/2024 3:50 AM EDT) Phosphorus 2.2(L) 2.5 - 5.0 mg/dL 08/21/2024 5:47 AM EDT [facility] ([facility]) Blood Venous blood specimen / Unknown 08/21/2024 3:50 AM EDT 08/21/2024 5:08 AM EDT us Rodolfo Maddox MD LAB BLOOD ORDERABLES Final Result [facility] ([facility]) [address] [place] [address] * (ABNORMAL) Magnesium (08/21/2024 3:50 AM EDT) Magnesium 1.7(L) 1.9 - 2.7 mg/dL 08/21/2024 5:47 AM EDT [facility] ([facility]) Blood Venous blood specimen / Unknown 08/21/2024 3:50 AM EDT 08/21/2024 5:08 AM EDT Rodolfo Maddox MD LAB BLOOD ORDERABLES Final Result Performing Organization Address [facility] Co de Phone Number [facility]) [address] [place] [phone] * (ABNORMAL) Comprehensive metabolic panel (08/21/2024 3:50 AM EDT) Sodium 142 136 - 145 mmol/L 08/21/2024 5:47 AM EDT [facility] ([facility]) Potassium 3.9 3.5 - 5.1 mmol/L 08/21/2024 5:47 AM EDT [facility] ([facility]) Chloride 105 98 - 107 mmol/L 08/21/2024 5:47 AM EDT [facility] ([facility]) CO2 31 21 - 31 mmol/L 08/21/2024 5:47 AM EDT [facility] ([facility]) Anion Gap 10 7 - 20 mmol/L 08/21/2024 5:47 AM EDT [facility] ([facility]) BUN 12 7 - 25 mg/dL 08/21/2024 5:47 AM EDT [facility] ([facility]) Creatinine 0.73 0.60 - 1.20 mg/dL 08/21/2024 5:47 AM EDT [facility] ([facility]) BUN/Creatinine Ratio 16.4 10/2024 5:47 AM EDT [facility] ([facility]) Glucose 121(H) 70 - 100 mg/dL 08/21/2024 5:47 AM T [facility] ([facility]) Calcium 8.0(L) 8.6 - 10.3 mg/dL 08/21/2024 5:47 AM T [facility] ([facility]) AST 13 13 - 39 U/L 08/21/2024 5:47 AM [facility] ([facility]) ALT (SGPT) 4(L) 7 - 52 U/L 08/21/2024 5:47 AM [facility] ([facility]) Alkaline Phosphatase 115(H) 34 - 104 U/L 08/21/2024 5:47 AM [facility] ([facility]) Total Protein 5.9(L) 6.0 - 8.3 g/dL 08/21/2024 5:47 AM [facility] ([facility]) Albumin 2.5(L) 3.5 - 5.7 g/dL 08/21/2024 5:47 AM [facility] ([facility]) Total Bilirubin 0.3 0.3 - 1.0 mg/dL 08/21/2024 5:47 AM [facility] ([facility]) eGFR 92.9 >60.0 mL/min/1. 73m*2 08/21/2024 5:47 AM [facility] ([facility]) Comment:[facility] s estimated glomerular filtration rate (eGFR) [...] individuals. Blood Venous blood specimen / Unknown 08/21/2024 3:50 AM EDT 08/21/2024 5:08 AM EDT us Rodolfo Maddox MD LAB BLOOD ORDERABLES Final Result [facility] ([facility]) [address] [place] [address] documented in this encounter Visit Diagnoses Not on filedocumented in this encounter
--- OUTSIDE RECORDS SUMMARY | 2024-09-24 15:13 | XMS_ITS ---
[facility] Plan Created on: September 11, 2024 Denise Zelaya : 1960 Sex: Female Demographics Address [address] [address] [address] Phone [phone] Preferred Language en Marital Status Unknown Islam Affiliation Unknown Race White Ethnic Group Not or Lati no Author Organization [employer] Address [address] [place] [address] [address] [place] [address] Phone Health Concerns Health Status CKD 3 Health Concerns Health condition management, Care and support services, Coordination of care, At risk for readmission
--- OUTSIDE RECORDS SUMMARY | 2024-09-24 15:13 | XMS_ITS | Clinical Summary ---
Author Organization [facility] Address [address] [place] [address] Care Team Providers Care Physics Technical Officer Name Role Phone Unavailable Primary Care Provider Unavailabl e Allergies No known active allergies Encounters Date Type Department Care Team Description 09/19/2024 Lab Requisition [facility] [address] [place] [phone] Rodolfo Maddox MD Respiratory failure, unspecified, unspecified whether with hypoxia or hypercapnia (CMS/HCC) 09/18/2024 Lab Requisition [facility] [address] [facility] [place] [address] Rodolfo Maddox MD 09/16/2024 Lab Requisition [facility] [address] [facility] [place] [address] Rodolfo Maddox MD 09/15/2024 Lab Requisition [facility] [address] [facility] [place] [address] Rodolfo Maddox MD 09/12/2024 Lab Requisition [facility] [address] [place] [address] Rodolfo Maddox MD 09/09/2024 Lab Requisition [facility] [address] [place] [address] Rodolfo Maddox MD 09/07/2024 Lab Requisition [facility] [address] [facility] [place] [address] Rodolfo Maddox MD 09/04/2024 Lab Requisition [facility] [address] [place] [address] Rodolfo Maddox MD 09/03/2024 Lab Requisition [facility] [address] [place] [address] Rodolfo Maddox MD 09/02/2024 Lab Requisition [facility] [place] [address] Rodolfo Maddox MD 09/01/2024 Lab Requisition [facility] [place] [address] Rodolfo Maddox MD 08/31/2024 10:15 AM EDT - 08/31/2024 11:59 PM EDT Hospital Encounter [facility] [place] [address] Sacral osteomyelitis (CMS/HCC) (Primary Dx); Necrotizing fasciitis (CMS/HCC); Blood loss anemia; Essential hypertension; GEMA (obstructive sleep apnea); Oropharyngeal dysphagia; Sacral decubitus ulcer, stage IV (CMS/HCC); Type 2 diabetes mellitus with hyperglycemia, with long-term current use of insulin (CMS/HCC); Urinary retention Discharge Disposition: Home or Self Care () 08/30/2024 Lab Requisition [facility] [place] [address] Rodolfo Maddox MD 08/28/2024 Lab Requisition [facility] [place] [address] Rodolfo Maddox MD 08/26/2024 Lab Requisition [facility] [place] [address] Rodolfo Maddox MD 08/25/2024 12:10 PM EDT - 08/25/2024 11:59 PM EDT Hospital Encounter [facility] [place] [address] Acute hypoxemic respiratory failure (CMS/HCC) (Primary Dx); Encounter for attention to gastrostomy (CMS/HCC); Blood loss anemia; Essential hypertension; Metabolic encephalopathy; Necrotizing fasciitis (CMS/HCC); GEMA (obstructive sleep apnea); Oropharyngeal dysphagia; Sacral decubitus ulcer, stage IV (CMS/HCC); Sacral osteomyelitis (CMS/HCC); Type 2 diabetes mellitus with hyperglycemia, with long-term current use of insulin ([facility]); Urinary retention Discharge Disposition: Home or Self Care () 08/25/2024 Lab Requisition [facility] [address] [place] [address] Rodolfo Maddox MD 08/23/2024 Lab Requisition [facility] [address] [place] [address] Rodolfo Maddox MD 08/22/2024 Lab Requisition [facility] [address] [place] [address] Rodolfo Maddox MD 08/20/2024 Lab Requisition [facility] [address] [place] [address] Rodolfo Maddox MD 08/20/2024 Lab Requisition [facility] [address] [place] [address] Rodolfo Maddox MD 08/17/2024 Lab Requisition [facility] [address] [place] [address] Rodolfo Maddox MD 08/13/2024 Lab Requisition [facility] [address] [place] [address] Rodolfo Maddox MD 08/11/2024 Lab Requisition [facility] [address] [place] [address] Rodolfo Maddox MD 08/10/2024 Lab Requisition [facility] [address] [place] [address] Rodolfo Maddox MD Respiratory failure, unspecified, unspecified whether with hypoxia or hypercapnia (CMS/HCC) 08/07/2024 Lab Requisition [facility] [address] [place] [address] Rodolfo Maddox MD 08/06/2024 Lab Requisition [facility] [address] [place] [address] Rodolfo Maddox MD 08/06/2024 Lab Requisition [facility] [address] [place] [address] Rodolfo Maddox MD 08/05/2024 Lab Requisition [facility] [address] [place] [address] Rodolfo Maddox MD 08/05/2024 Lab Requisition [facility] [address] [place] [address] Rodolfo Maddox MD Respiratory failure, unspecified, unspecified whether with hypoxia or hypercapnia (CMS/HCC) 08/05/2024 Lab Requisition [facility] [place] [address] Rodolfo Maddox MD Respiratory failure, unspecified, unspecified whether with hypoxia or hypercapnia (CMS/HCC) 08/05/2024 Lab Requisition [facility] [address] [place] [address] Rodolfo Maddox MD Respiratory failure, unspecified, unspecified whether with hypoxia or hypercapnia (CMS/HCC) 08/02/2024 Lab Requisition [facility] [address] [place] [address] Rodolfo Maddox MD 07/31/2024 Lab Requisition [facility] [address] [place] [address] Rodolfo Maddox MD Respiratory failure, unspecified, unspecified whether with hypoxia or hypercapnia (CMS/HCC) 07/30/2024 Lab Requisition [facility] [address] [place] [address] Rodolfo Maddox MD from Last 3 Months Social History Tobacco Use Types Packs/Day Years Used Date Smoking Tobacco: Never Assessed Comments Unknown Sex and Gender Information Value Date Recorded Sex Assigned at Not on file Legal Sex Female 10:43 PM EDT Gender Identity Not on file Sexual Orientation Not on file Plan of Treatment Health Maintenance Due Date Last Done Comments CT Colonography 1961 Colonoscopy 1961 Diabetes: Hemoglobin A1C 1961 FIT 1961 FOBT 1961 Medicare Annual Wellness (AWV) 1961 Sigmoidoscopy 1961 Diabetes: Retinopathy Screening 11/04/1971 Depression Screening 1973 Diabetes: Urine Protein Screening 1980 Pneumococcal Vaccine: Pediatrics (0 to 5 Years) and At-Risk Patients (6 to 64 Years) (1 of 2 - PCV) 1980 Zoster Vaccines (1 of 2) 1980 Pap Smear 1982 Adult Tetanus 11/04/1983 Cervical Cancer Screening 11/04/1991 HPV/Cotest 11/04/1991 Mammogram 2001 Colorectal Cancer Screening 07/19/2020 FIT-DNA 07/19/2020 07/19/2017 COVID-19 Vaccine ( season) 2023 01/03/2021, 06/29/2020, 06/04/2020 Influenza Vaccine (#1) 2024 , 12/06/2023, 12/03/2022, Additional history exists HIB Vaccines Aged Out No longer eligi ble based on patient's age to complete this topic HPV Vaccines Aged Out No longer eligi ble based on patient's age to complete this topic IPV Vaccines Aged Out No longer eligi ble based on patient's age to complete this topic Meningococcal B Vaccine Aged Out No l onger eligible based on patient's age to complete this topic Meningococcal Vaccine Aged Out No tamica candis eligible based on patient's age to complete this topic Rotavirus Vaccines Aged Out No longer eligible based on patient's age to complete this topic Procedures Procedure Name Priority Date/Time Associated Diagnosis Comments BASIC METABOLIC PANEL Routine 09/20/2024 3:35 AM EDT Respiratory failure, unspecified, unspecified whether with hypoxia or hypercapnia ([facility]) BASIC METABOLIC PANEL Routine 09/19/2024 3:25 AM EDT CBC Routine 09/19/2024 3:23 AM EDT PROCALCITONIN TEST Routine 09/16/2024 5: 30 AM EDT CBC Routine 09/16/2024 5:30 AM EDT URINALYSIS MICROSCOPIC Routine 1:00 AM EDT URINALYSIS Routine 09/16/2024 1:00 AM EDT URINE CULTURE Routine 09/16/2024 1:00 AM EDT CBC Routine 09/15/2024 3:31 AM EDT COMPREHENSIVE METABOLIC PANEL Routine 09/15/2024 3:31 AM EDT BASIC METABOLIC PANEL Routine 09/13/2024 4:00 AM EDT CBC Routine 09/13/2024 3:50 AM EDT COMPREHENSIVE METABOLIC PANEL Routine 09/10/2024 4:30 AM EDT CBC WITH AUTO DIFFERENTIAL Routine 09/10/2024 3:35 AM EDT CBC AND DIFFERENTIAL Routine 09/10/2024 3:35 AM EDT CBC Routine 09/07/2024 4:27 AM EDT COMPREHENSIVE METABOLIC PANEL Routine 09/07/2024 4:27 AM EDT PROCALCITONIN TEST Routine 09/05/2024 4: 45 AM EDT TSH3 REFLEX TO FT4 Routine 09/05/2024 4: 45 AM EDT COMPREHENSIVE METABOLIC PANEL Routine 09/05/2024 4:45 AM EDT AMMONIA Routine 09/05/2024 4:23 AM EDT LACTIC ACID, PLASMA Routine 09/05/2024 4 :23 AM EDT BASIC METABOLIC PANEL Routine 09/04/2024 5:00 AM EDT CBC Routine 09/04/2024 4:15 AM EDT LACTIC ACID, PLASMA Routine 09/03/2024 5 :21 AM EDT PROCALCITONIN TEST Routine 09/03/2024 4: 00 AM EDT BLOOD CULTURE Routine 09/03/2024 4:00 AM EDT CBC WITH AUTO DIFFERENTIAL Routine 09/02/2024 3:27 AM EDT PHOSPHORUS Routine 09/02/2024 3:27 AM EDT MAGNESIUM Routine 09/02/2024 3:27 AM EDT CBC AND DIFFERENTIAL Routine 09/02/2024 3:27 AM EDT BASIC METABOLIC PANEL Routine 09/02/2024 3:27 AM EDT XR ABDOMEN 1 VIEW Routine 08/31/2024 11: 51 AM EDT Necrotizing fasciitis (CMS/HCC) MAGNESIUM Routine 08/30/2024 4:00 AM EDT BASIC METABOLIC PANEL Routine 08/30/2024 4:00 AM EDT CBC WITH AUTO DIFFERENTIAL Routine 08/30/2024 3:50 AM EDT CBC AND DIFFERENTIAL Routine 08/30/2024 3:50 AM EDT CBC WITH AUTO DIFFERENTIAL Routine 08/28/2024 3:50 AM EDT CBC AND DIFFERENTIAL Routine 08/28/2024 3:50 AM EDT MAGNESIUM Routine 08/28/2024 3:50 AM EDT BASIC METABOLIC PANEL Routine 08/28/2024 3:50 AM EDT CBC WITH AUTO DIFFERENTIAL Routine 08/27/2024 4:00 AM EDT PHOSPHORUS Routine 08/27/2024 4:00 AM EDT MAGNESIUM Routine 08/27/2024 4:00 AM EDT BASIC METABOLIC PANEL Routine 08/27/2024 4:00 AM EDT CBC AND DIFFERENTIAL Routine 08/27/2024 4:00 AM EDT CBC WITH AUTO DIFFERENTIAL Routine 08/26/2024 3:45 AM EDT MAGNESIUM Routine 08/26/2024 3:45 AM EDT CBC AND DIFFERENTIAL Routine 08/26/2024 3:45 AM EDT BASIC METABOLIC PANEL Routine 08/26/2024 3:[address] ABDOMEN PELVIS WO IV CONTRAST STAT 08/25/2024 12:30 PM EDT Encounter for attention to gastrostomy (CMS/HCC) CBC WITH AUTO DIFFERENTIAL Routine 08/24/2024 4:49 AM EDT CBC AND DIFFERENTIAL Routine 08/24/2024 4:49 AM EDT MAGNESIUM Routine 08/24/2024 4:49 AM EDT COMPREHENSIVE METABOLIC PANEL Routine 08/24/2024 4:49 AM EDT CBC WITH AUTO DIFFERENTIAL Routine 08/23/2024 3:50 AM EDT MAGNESIUM Routine 08/23/2024 3:50 AM EDT CBC AND DIFFERENTIAL Routine 08/23/2024 3:50 AM EDT BASIC METABOLIC PANEL Routine 08/23/2024 3:50 AM EDT CBC WITH AUTO DIFFERENTIAL Routine 08/21/2024 3:50 AM EDT CBC AND DIFFERENTIAL Routine 08/21/2024 3:50 AM EDT PHOSPHORUS Routine 08/21/2024 3:50 AM EDT MAGNESIUM Routine 08/21/2024 3:50 AM EDT COMPREHENSIVE METABOLIC PANEL Routine 08/21/2024 3:50 AM EDT PROCALCITONIN TEST Routine 08/20/2024 4: 12 PM EDT CBC Routine 08/17/2024 3:59 AM EDT COMPREHENSIVE METABOLIC PANEL Routine 08/17/2024 3:59 AM EDT BASIC METABOLIC PANEL Routine 08/14/2024 3:39 AM EDT CBC Routine 08/14/2024 3:39 AM EDT MAGNESIUM Routine 08/12/2024 4:20 AM EDT BASIC METABOLIC PANEL Routine 08/12/2024 4:20 AM EDT CBC WITH AUTO DIFFERENTIAL Routine 08/12/2024 3:35 AM EDT CBC AND DIFFERENTIAL Routine 08/12/2024 3:35 AM EDT CBC Routine 08/12/2024 3:35 AM EDT CBC WITH AUTO DIFFERENTIAL Routine 08/11/2024 3:40 [...] whether with hypoxia or hypercapnia (CMS/HCC) CBC WITH AUTO DIFFERENTIAL Routine 08/08/2024 4:00 AM EDT MAGNESIUM Routine 08/08/2024 4:00 AM EDT CBC AND DIFFERENTIAL Routine 08/08/2024 4:00 AM EDT BASIC METABOLIC PANEL Routine 08/08/2024 4:00 AM EDT AMMONIA Routine 08/07/2024 7:14 AM EDT CBC WITH AUTO DIFFERENTIAL Routine 08/07/2024 3:47 AM EDT CBC AND DIFFERENTIAL Routine 08/07/2024 3:47 AM EDT COMPREHENSIVE METABOLIC PANEL Routine 08/07/2024 3:47 AM EDT PHOSPHORUS Routine 08/07/2024 3:47 AM EDT MAGNESIUM Routine 08/07/2024 3:47 AM EDT AMMONIA Routine 08/06/2024 4:10 AM EDT TSH Routine 08/06/2024 4:10 AM EDT COMPREHENSIVE METABOLIC PANEL Routine 08/06/2024 4:10 AM EDT CBC Routine 08/06/2024 4:10 AM EDT BLOOD CULTURE Routine 08/05/2024 2:24 PM EDT Respiratory failure, unspecified, unspecified whether with hypoxia or hypercapnia (CMS/HCC) BLOOD CULTURE Routine 08/05/2024 2:23 PM EDT Respiratory failure, unspecified, unspecified whether with hypoxia or hypercapnia (CMS/HCC) WOUND CULTURE Routine 08/05/2024 1:15 PM EDT Respiratory failure, unspecified, unspecified whether with hypoxia or hypercapnia (CMS/HCC) CBC Routine 08/05/2024 4:45 AM EDT Respiratory failure, unspecified, unspecified whether with hypoxia or hypercapnia (CMS/HCC) BLOOD CULTURE Routine 08/05/2024 3:50 AM EDT Respiratory failure, unspecified, unspecified whether with hypoxia or hypercapnia (CMS/HCC) PROCALCITONIN TEST Routine 08/05/2024 3: 45 AM EDT Respiratory failure, unspecified, unspecified whether with hypoxia or hypercapnia (CMS/HCC) COMPREHENSIVE METABOLIC PANEL Routine 08/05/2024 3:45 AM EDT Respiratory failure, unspecified, unspecified whether with hypoxia or hypercapnia (CMS/HCC) BLOOD CULTURE Routine 08/05/2024 3:45 AM EDT Respiratory failure, unspecified, unspecified whether with hypoxia or hypercapnia (CMS/HCC) URINALYSIS MICROSCOPIC Routine 1:30 AM EDT Respiratory failure, unspecified, unspecified whether with hypoxia or hypercapnia (CMS/HCC) URINALYSIS Routine 08/05/2024 1:30 AM EDT Respiratory failure, unspecified, unspecified whether with hypoxia or hypercapnia (CMS/HCC) URINE CULTURE Routine 08/05/2024 1:30 AM EDT Respiratory failure, unspecified, unspecified whether with hypoxia or hypercapnia (CMS/HCC) BASIC METABOLIC PANEL Routine 08/03/2024 3:50 AM EDT CBC Routine 08/03/2024 3:50 AM EDT BASIC METABOLIC PANEL Routine 08/01/2024 3:40 AM EDT Respiratory failure, unspecified, unspecified whether with hypoxia or hypercapnia (CMS/HCC) CBC WITH AUTO DIFFERENTIAL Routine 07/31/2024 3:45 AM EDT PREALBUMIN Routine 07/31/2024 3:45 AM EDT PHOSPHORUS Routine 07/31/2024 3:45 AM EDT MAGNESIUM Routine 07/31/2024 3:45 AM EDT COMPREHENSIVE METABOLIC PANEL Routine 07/31/2024 3:45 AM EDT CBC AND DIFFERENTIAL Routine 07/31/2024 3:45 AM EDT from Last 3 Months Results * (ABNORMAL) Basic metabolic panel (09/20/2024 3:35 AM EDT) Only the most recent of16 resultswithin the time period is included. Sodium 135(L) 136 - 145 mmol/L 09/20/2024 7:00 AM [facility] Potassium 4.5 3.5 - 5.1 mmol/L 09/20/2024 7:00 AM [facility] Chloride 103 98 - 107 mmol/L 09/20/2024 7:00 AM [facility] CO2 20(L) 21 - 31 mmol/L 09/20/2024 7:00 AM [facility] BUN 26(H) 7 - 25 mg/dL 09/20/2024 7:00 AM [facility] Creatinine 1.26(H) 0.60 - 1.20 mg/dL 09/20/2024 7:00 AM [facility] Glucose 136(H) 70 - 100 mg/dL 09/20/2024 7:00 AM [facility] Calcium 9.3 8.6 - 10.3 mg/dL 09/20/2024 7:00 AM [facility] Anion Gap 17 7 - 20 mmol/L 09/20/2024 7:00 AM [facility] eGFR 48.3(L) >60.0 mL/min/1. 73m*2 09/20/2024 7:00 AM [facility] Comment:[facility] s estimated glomerular filtration rate (eGFR) [...] individuals. BUN/Creatinine Ratio 20.6 09/2024 7:00 AM [facility] Blood Venous blood specimen / Unknown 09/20/2024 3:35 AM EDT 09/20/2024 5:03 AM EDT us Rodolfo Maddox MD LAB BLOOD ORDERABLES Final Result [facility] [address] [place] [address] * (ABNORMAL) CBC (09/19/2024 3:23 AM EDT) Only the most recent of12 resultswithin the time period is included. Auto WBC 9.17 4.00 - 10.60 10*3/uL 09/19/2024 5:59 AM EDT [facility] RBC 3.26(L) 3.80 - 5.00 10*6/uL 09/19/2024 5:59 AM EDT [facility] Hemoglobin 9.6(L) 12.0 - 15.0 g/dL 09/19/2024 5:59 AM EDT [facility] Hematocrit 29.5(L) 36.0 - 45.0 % 09/19/2024 5:59 AM EDT [facility] MCV 90.5 82.0 - 98.0 fL 09/19/2024 5:59 AM EDT [facility] MCH 29.4 27.0 - 33.0 pg 09/19/2024 5:59 AM EDT [facility] MCHC 32.5 32.0 - 35.0 g/dL 09/19/2024 5:59 AM EDT [facility] RDW 14.5 11.5 - 15.0 % 09/19/2024 5:59 AM EDT [facility] Platelets 554(H) 150 - 400 10*3/uL 09/19/2024 5:59 AM EDT [facility] Blood Venous blood specimen / Unknown Venipuncture / Unknown 09/19/2024 3:23 AM EDT 09/19/2024 4:27 AM EDT us Rodolfo Maddox MD LAB BLOOD ORDERABLES Final Result [facility] ([facility]) [address] [place] [address] * (ABNORMAL) Procalcitonin Test (09/16/2024 5:30 AM EDT) Only the most recent of5 resultswithin the time period is included. Procalcitonin 0.22(H) 0.00 - 0.10 ng/mL 09/16/2024 8:40 AM EDT [facility] Comment: Suspected Lower [...] Maddox MD LAB BLOOD ORDERABLES Final Result [facility] [address] [place] [address] * (ABNORMAL) Urinalysis microscopic (09/16/2024 1:00 AM EDT) Only the most recent of2 resultswithin the time period is included. RBC, Urine 11-20(A) None Seen, 0-2 /HPF 09/16/2024 6:40 AM EDT [facility] WBC, Urine >50(A) None Seen, 0-2 /HPF 09/16/2024 6:40 AM EDT [facility]) Squamous Epithelial, Urine None Seen None Seen, Occasiona l, Few /LPF 09/16/2024 6:40 AM EDT [facility]) Mucus, Urine Occasional None Seen, Occasiona l, Few /LPF 09/16/2024 6:40 AM EDT [facility]) Crystals, Urine Present(A) None Seen /HPF 09/16/2024 6:40 AM EDT [facility]) Triple Phosphate Crystals, Urine Occasional(A) None Seen /HPF 09/16/2024 6:40 AM EDT [facility]) Urine Urine specimen obtained by clean catch procedure / Unknown 09/16/2024 1:00 AM EDT 09/16/2024 5:54 AM EDT us Rodolfo Maddox MD LAB URINE ORDERABLES Final Result [facility]) [address] [place] [address] * (ABNORMAL) Urinalysis (09/16/2024 1:00 AM EDT) Only the most recent of2 resultswithin the time period is included. Color, Urine Yellow Colorless, Yellow, Light-Yellow 09/16/2024 6:31 AM EDT [facility] Clarity, Urine Cloudy(A) Clear 09/16/2024 6:31 AM EDT [facility] pH, Urine 8.0 5.0 - 8.0 pH 09/16/2024 6:31 AM EDT [facility] Leukocytes, Urine Large(A) Negative 09/16/2024 6:31 AM EDT [facility] Nitrite, Urine Positive(A) Negative 09/16/2024 6:31 AM EDT [facility] Protein, Urine 300(A) Negative mg/dL 09/16/2024 6:31 AM EDT [facility] Glucose, Urine >=1000(A) Normal mg/dL 09/16/2024 6:31 AM EDT [facility] Bilirubin, Urine Negative Negative 09/16/2024 6:31 AM EDT [facility] Specific [place], Urine 1.020 1.010 - 1.030 09/16/2024 6:31 AM EDT [facility] Ketones, Urine Negative Negative mg/dL 09/16/2024 6:31 AM EDT [facility] Blood, Urine Small(A) Negative 09/16/2024 6:31 AM EDT [facility] Urobilinogen, Urine Normal Normal mg/dL 09/16/2024 6:31 AM EDT [facility] Urine Urine specimen obtained by clean catch procedure / Unknown 09/16/2024 1:00 AM EDT 09/16/2024 5:54 AM EDT us Rodolfo Maddox MD LAB URINE ORDERABLES Final Result [facility] [address] [place] [address] * (ABNORMAL) Urine culture, routine (09/16/2024 1:00 AM EDT) Only the most recent of2 resultswithin the time period is included. Urine Culture >100,000 CFU/Ml Proteus mirabilis(A) JOSE 09/18/2024 7:50 AM EDT [facility] Urine Urine specimen [...] Trimethoprim + Sulfamethoxazole JOSE <=0.5/9.5 ug/ml: Susceptible Rodolfo Maddox MD LAB MICROBIOLOGY - GENERAL ORDERABLES Final Result [facility]) [address] [place] [address] * (ABNORMAL) Comprehensive metabolic panel (09/15/2024 3:31 AM EDT) Only the most recent of11 resultswithin the time period is included. Sodium 136 136 - 145 mmol/L 09/15/2024 4:47 AM EDT [facility] Potassium 4.0 3.5 - 5.1 mmol/L 09/15/2024 4:47 AM EDT [facility] Chloride 102 98 - 107 mmol/L 09/15/2024 4:47 AM EDT [facility] CO2 28 21 - 31 mmol/L 09/15/2024 4:47 AM [facility]) Anion Gap 10 7 - 20 mmol/L 09/15/2024 4:47 AM [facility] BUN 25 7 - 25 mg/dL 09/15/2024 4:47 AM [facility] Creatinine 1.01 0.60 - 1.20 mg/dL 09/15/2024 4:47 AM [facility] BUN/Creatinine Ratio 24.8 04/2024 4:47 AM [facility] Glucose 174(H) 70 - 100 mg/dL 09/15/2024 4:47 AM [facility] Calcium 8.9 8.6 - 10.3 mg/dL 09/15/2024 4:47 AM [facility] AST 11(L) 13 - 39 U/L 09/15/2024 4:47 AM [facility]) ALT (SGPT) 10 7 - 52 U/L 09/15/2024 4:47 AM [facility] Alkaline Phosphatase 107(H) 34 - 104 U/L 09/15/2024 4:47 AM [facility] Total Protein 6.4 6.0 - 8.3 g/dL 09/15/2024 4:47 AM [facility] Albumin 2.8(L) 3.5 - 5.7 g/dL 09/15/2024 4:47 AM [facility] Total Bilirubin 0.4 0.3 - 1.0 mg/dL 09/15/2024 4:47 AM [facility]) eGFR 62.9 >60.0 mL/min/1. 73m*2 09/15/2024 4:47 AM [facility] Comment:[facility] s estimated glomerular filtration rate (eGFR) [...] Maddox MD LAB BLOOD ORDERABLES Final Result [facility] [address] [place], [place] [id number] * (ABNORMAL) CBC auto differential (09/10/2024 3:35 AM EDT) Only the most recent of14 resultswithin the time period is included. Auto WBC 10.56 4.00 - 10.60 10*3/uL 09/10/2024 5:44 AM EDT [facility] RBC 3.45(L) 3.80 - 5.00 10*6/uL 09/10/2024 5:44 AM EDT [facility] Hemoglobin 10.2(L) 12.0 - 15.0 g/dL 09/10/2024 5:44 AM EDT [facility] Hematocrit 31.2(L) 36.0 - 45.0 % 09/10/2024 5:44 AM EDT [facility] MCV 90.4 82.0 - 98.0 fL 09/10/2024 5:44 AM EDT [facility] MCH 29.6 27.0 - 33.0 pg 09/10/2024 5:44 AM EDT [facility] MCHC 32.7 32.0 - 35.0 g/dL 09/10/2024 5:44 AM EDT [facility] RDW 13.9 11.5 - 15.0 % 09/10/2024 5:44 AM EDT [facility] Neutrophils % 49.3 40.0 - 72.0 % 09/10/2024 5:44 AM T [facility] Lymphocytes % 36.4 20.0 - 45.0 % 09/10/2024 5:44 AM EDT [facility] Monocytes % 8.6 5.0 - 12.0 % 09/10/2024 5:44 AM T [facility] Eosinophils % 4.6 0.0 - 6.0 % 09/10/2024 5:44 AM T [facility] [facility] Basophils % 0.6 0.0 - 1.0 % 09/10/2024 5:44 AM T [facility] Neutrophils Absolute 5.21 1.60 - 7.60 10*3/uL 09/10/2024 5:44 AM T [facility] Lymphocytes Absolute 3.84 1.20 - 4.00 10*3/uL 09/10/2024 5:44 AM T [facility] Monocytes Absolute 0.91 0.10 - 1.00 10*3/uL 09/10/2024 5:44 AM [facility] Eosinophils Absolute 0.49 0.00 - 0.50 10*3/uL 09/10/2024 5:44 AM T [facility] Basophils Absolute 0.06 0.00 - 0.20 10*3/uL 09/10/2024 5:44 AM [facility] Platelets 555(H) 150 - 400 10*3/uL 09/10/2024 5:44 AM [facility] nRBC % 0.0 0 % 09/10/2024 5:44 AM [facility] Immature Granulocytes % 0.5 0.0 - 1.0 % 09/10/2024 5:44 AM [facility] Immature Granulocytes Absolute 0.05 0.00 - 0.20 10*3/uL 09/10/2024 5:44 AM [facility] Blood Venous blood specimen / Unknown Venipuncture / Unknown 09/10/2024 3:35 AM EDT 09/10/2024 5:26 AM EDT Rodolfo Maddox MD LAB BLOOD ORDERABLES Final Result [facility]) [address] [place] [address] * TSH3 Reflex to FT4 (09/05/2024 4:45 AM EDT) TSH 2.74 0.34 - 5.60 mIU/L 09/05/2024 5:42 AM EDT [facility]) Blood Venous blood specimen / Unknown Venipuncture / Unknown 09/05/2024 4:45 AM EDT 09/05/2024 4:54 AM EDT Rodolfo Maddox MD LAB BLOOD ORDERABLES Final Result Performing Organization Address City/[facility]/ZIP Co de Phone Number [facility]) [address] [place] [phone] * Lactic acid, plasma (09/05/2024 4:23 AM EDT) Only the most recent of2 resultswithin the time period is included. Lactate 1.4 0.5 - 2.2 mmol/L 09/05/2024 5:32 AM EDT [facility]) Blood Venous blood specimen / Unknown Venipuncture / Unknown 09/05/2024 4:23 AM EDT 09/05/2024 4:51 AM EDT Rodolfo Maddox MD LAB BLOOD ORDERABLES Final Result [facility]) [address] [place] [phone] * Ammonia (09/05/2024 4:23 AM EDT) Only the most recent of3 resultswithin the time period is included. Ammonia 28 18 - 72 umol/L 09/05/2024 5:32 AM EDT [facility]) Blood Venous blood specimen / Unknown Venipuncture / Unknown 09/05/2024 4:23 AM EDT 09/05/2024 4:51 AM EDT Rodolfo Maddox MD LAB BLOOD ORDERABLES Final Result Performing Organization Address City/[facility] Co de Phone Number [facility]) [address] [place] [phone] * Blood culture (09/03/2024 4:00 AM EDT) Only the most recent of5 resultswithin the time period is included. [facility] Blood Culture No growth at 5 days JOSE 09/08/2024 6:01 AM EDT [facility]) Blood Venous blood specimen / Unknown Venipuncture / Unknown 09/03/2024 4:00 AM EDT 09/03/2024 5:24 AM EDT Rodolfo Maddox MD LAB MICROBIOLOGY - GENERAL ORDERABLES Final Result Performing Organization Address [facility] de Phone Number [facility]) [address] [place] [phone] * Phosphorus (09/02/2024 3:27 AM EDT) Only the most recent of5 resultswithin the time period is included. Pathologist [facility] Phosphorus 3.4 2.5 - 5.0 mg/dL 09/02/2024 6:09 AM EDT [facility]) Blood Venous blood specimen / Unknown Venipuncture / Unknown 09/02/2024 3:27 AM EDT 09/02/2024 5:14 AM EDT Rodolfo Maddox MD LAB BLOOD ORDERABLES Final Result Performing Organization Address City/[facility] Co de Phone Number [facility]) [address] [place] [address] * Magnesium (09/02/2024 3:27 AM EDT) Only the most recent of13 resultswithin the time period is included. Magnesium 2.1 1.9 - 2.7 mg/dL 09/02/2024 6:09 AM EDT [facility] Blood Venous blood specimen / Unknown Venipuncture / Unknown 09/02/2024 3:27 AM EDT 09/02/2024 5:14 AM EDT us Rodolfo Maddox MD LAB BLOOD ORDERABLES Final Result [facility]) [address] [place] [address] * XR abdomen 1 view (08/31/2024 11:51 AM EDT) Anatomical Region Laterality Modality Abdomen Computed Radiogr aphy 08/31/2024 3:48 PM EDT Impressions 08/31/2024 3:52 PM EDT Appropriately positioned percutaneous gastrostomy without evidence of leak. Electronically signed: Prabha Bradley. Narrative 08/31/2024 3:52 PM EDT XR ABDOMEN 1 VIEW 08/31/2024 11:06 AM CLINICAL INDICATIONS: Evaluate for leak. CONTRAST: 60 mL of Omnipaque 350 manually injected via G-tube. COMPARISON: Upper GI dated 02/28/2024 FINDINGS: Number of images: 3. No evidence of active extravasation/leak. Appropriately positioned percutaneous gastrostomy. Satisfactory flow of contrast through the jejunal loops. Procedure Note Prabha Bradley MD - 08/31/2024 XR ABDOMEN 1 VIEW 08/31/2024 11:06 AM CLINICAL INDICATIONS: Evaluate for leak. CONTRAST: 60 mL of Omnipaque 350 manually injected via G-tube. COMPARISON: Upper GI dated 02/28/2024 FINDINGS: Number of images: 3. No evidence of active extravasation/leak. Appropriately positionedpercutaneous gastrostomy. Satisfactory flow of contrast through the jejunal loops. IMPRESSION: Appropriately positioned percutaneous gastrostomy without evidence ofleak. Electronically signed: Prabha Bradley. us Rodolfo Maddox MD IMG XR PROCEDURES Final Res ult * CT abdomen pelvis wo IV contrast (08/25/2024 12:30 PM EDT) Anatomical Region Laterality Modality Body, Pelvis, Abdomen Computed T omography 08/25/2024 1:05 PM EDT Impressions 08/25/2024 1:15 PM EDT 1. Gastrostomy tube tip is within the ventral wall soft tissues along the gastrostomy tract. Intraluminal contrast stomach without extraluminal contrast. 2. Nodular adrenal thickening with nodules both adrenals, on the right roughly 2 cm, and the left roughly 3 cm. Difficult to determine accurate Hounsfield units given streak artifact. Consider outpatient adrenal protocol CT 3. Small right-sided pleural effusion, adjacent airspace disease, atelectasis versus pneumonia or aspiration. Coronary artery calcifications. All CT scans at this facility use dose modulation, iterative reconstruction, and/or weight based dosing when appropriate to reduce radiation dose to as low as reasonably achievable. Electronically signed: Doug Triplett MD. Narrative 08/25/2024 1:[address] ABDOMEN AND PELVIS WITHOUT IV CONTRAST HISTORY: PEG tube evaluation. COMPARISON STUDY: None. TECHNIQUE: CT scan of the abdomen and pelvis performed without IV or PO contrast. Coronal and sagittal reformats generated and reviewed. 30 mL contrast Omnipaque 300 administered through the G-tube FINDINGS: Solid visceral organs limited in evaluation secondary to lack of IV contrast. LOWER THORAX: Small right-sided pleural effusion, adjacent airspace disease, atelectasis versus pneumonia or aspiration. Coronary artery calcifications. HEPATOBILIARY: No focal hepatic lesions. No biliary ductal dilatation. Gallbladder surgically absent. SPLEEN: No splenomegaly. PANCREAS: No focal masses or ductal dilatation. ADRENALS: Nodular adrenal thickening with nodules both adrenals, on the right roughly 2 cm, and the left roughly 3 cm. Difficult to determine accurate Hounsfield units given streak artifact. KIDNEYS/URETERS: No collecting system dilatation, stones, or solid mass lesions. GI TRACT: No bowel obstruction. Gastrostomy tube tip terminates within the ventral abdominal wall soft tissues near the soft tissue tract. There is some subtle ill-defined fluid, soft tissue changes in this region without discrete drainable abscess. There is intraluminal contrast within the stomach without evidence of extraluminal contrast. No evidence of appendicitis. Diverticulosis, no diverticulitis. Right lower quadrant loop colostomy. PELVIC ORGANS/BLADDER: Hunter catheter within decompressed bladder. PERITONEUM/RETROPERITONEUM: No free fluid, no free air. LYMPH NODES: No enlarged lymph nodes. VESSELS: Atherosclerotic calcifications without abdominal aortic aneurysm. BONES AND SOFT TISSUES: No suspicious osseous lesion. Procedure Note Doug Triplett MD - 08/25/2024 CT ABDOMEN AND PELVIS WITHOUT IV CONTRAST HISTORY: PEG tube evaluation. COMPARISON STUDY: None. TECHNIQUE: CT scan of the abdomen and pelvis performed without IV or PO contrast. Coronal and sagittal reformats generated and reviewed. 30 mLcontrast Omnipaque 300 administered through the G-tube FINDINGS: Solid visceral organs limited in evaluation secondary to lack of IVcontrast. LOWER THORAX: Small right-sided pleural effusion, adjacent airspacedisease, atelectasis versus pneumonia or aspiration. Coronary arterycalcifications. HEPATOBILIARY: No focal hepatic lesions. No biliary ductal dilatation. Gallbladder surgically absent. SPLEEN: No splenomegaly. PANCREAS: No focal masses or ductal dilatation. ADRENALS: Nodular adrenal thickening with nodules both adrenals, on theright roughly 2 cm, and the left roughly 3 cm. Difficult to determine accurate Hounsfield units given streak artifact. KIDNEYS/URETERS: No collecting system dilatation, stones, or solid masslesions. GI TRACT: No bowel obstruction. Gastrostomy tube tip terminates withinthe ventral abdominal wall soft tissues near the soft tissue tract. There issome subtle ill-defined fluid, soft tissue changes in this region withoutdiscrete drainable abscess. There is intraluminal contrast within the stomachwithout evidence of extraluminal contrast. No evidence of appendicitis.Diverticulosis, no diverticulitis. Right lower quadrant loop colostomy. PELVIC ORGANS/BLADDER: Hunter catheter within decompressed bladder. PERITONEUM/RETROPERITONEUM: No free fluid, no free air. LYMPH NODES: No enlarged lymph nodes. VESSELS: Atherosclerotic calcifications without abdominal aorticaneurysm. BONES AND SOFT TISSUES: No suspicious osseous lesion. IMPRESSION: 1. Gastrostomy tube tip is within the ventral wall soft tissues alongthe gastrostomy tract. Intraluminal contrast stomach without extraluminalcontrast. 2. Nodular adrenal thickening with nodules both adrenals, on the rightroughly 2 cm, and the left roughly 3 cm. Difficult to determine accurate Hounsfieldunits given streak artifact. Consider outpatient adrenal protocol CT 3. Small right-sided pleural effusion, adjacent airspace disease,atelectasis versus pneumonia or aspiration. Coronary artery calcifications. All CT scans at this facility use dose modulation, iterativereconstruction, and/or weight based dosing when appropriate to reduce radiation dose to aslow as reasonably achievable. Electronically signed: Doug Triplett MD. Eliseo Coats MD IMG CT PROCEDURES Final Result * TSH (08/06/2024 4:10 AM EDT) Pathologist [facility] TSH 5.55 0.34 - 5.60 mIU/L 08/06/2024 5:54 AM EDT [facility] Blood Venous blood specimen / Unknown 08/06/2024 4:10 AM EDT 08/06/2024 5:01 AM EDT Rodolfo Maddox MD LAB BLOOD ORDERABLES Final Result [facility] [address] [place] [address] * (ABNORMAL) Wound culture (08/05/2024 1:15 PM EDT) Pathologist [facility] Wound Culture Rare Growth Pseudomonas aeruginosa(A) JOSE 08/08/2024 9:58 AM EDT [facility] Comment: Gram Stain Result No polymorphonuclear leukocytes seen 08/08/2024 9:58 AM EDT [facility] Gram Stain Result Rare Budding yeast with pseudohyphae 08/08/2024 9:58 AM EDT [facility] Swab 08/05/2024 1:15 PM EDT 08/05/2024 2:46 PM EDT Narrative [facility] - 08/08/2024 9:58 AM EDT Light Growth [...] LAB MICROBIOLOGY - GENERAL ORDERABLES Final Result [facility] [address] [place] [address] * Prealbumin (07/31/2024 3:45 AM EDT) Prealbumin 10.0 mg/dL 07/31/2024 6:02 AM EDT [facility] Blood Venous blood specimen / Unknown 07/31/2024 3:45 AM EDT 07/31/2024 4:33 AM EDT Rodolfo Maddox MD LAB BLOOD ORDERABLES Final Result [facility] [address] [place], [place] [id number] from Last 3 Months Insurance [employer]
--- OUTSIDE RECORDS SUMMARY | 2024-09-24 15:13 | XMS_ITS | Encounter Summary ---
Author Organization [facility] Address [address] [place] [address] Care Team Providers Care Senior Process Control Tech Name Role Phone Candida Brown NP Unavailable [phone] Mark Singh MD Primary Care Provider [phone] Encounter Details Date Type Department Care Team (Late st Contact Info) Description 09/24/2024 [facility] [address] [place] [address] Candida Brown NP [address] [place] [address] Social History Tobacco Use Types Packs/Day Years [...] Never 12/05/2023 How often do you attend yarsani or cheondoism serv ices? Never 12/05/2023 Do you belong to any clubs o r organizations such as yarsani groups, unions, fraternal or athletic groups, or [...] Recorded Patient Health Questionnaire-2 Score 0 07/17/2023 [facility] of Occupat ional Health - Occupational Stress [...] any time in the past 12 m [facility], were you homeless or living in a fci (including now)? No 12/05/2023 Comments Unknown Sex [...] documented as of this encounter Care Teams Senior Process Control Tech Relationship Specialty Start Date End Date Mark Singh MD [address] [place] [address] PCP - General Family Medicine 12/14/23 Candida Brown NP [address] [place] [address] Nurse Practitioner Family Medicine 11/13/22 documented as of this encounter
--- OUTSIDE RECORDS SUMMARY | 2024-09-24 15:13 | XMS_ITS | Encounter Summary ---
Author Organization [facility] Address [address] [place] [address] Care Team Providers Care Capacitor Pack Press Operator Name Role Phone Candida Brown [place] Unavailable [phone] Mark Singh MD Primary Care Provider [phone] Reason for Visit * Reason Comments Med Refill Encounter Details Date Type Department Care Team (Late st Contact Info) Description 06/17/2024 Refill [facility] [address] [place] [address] Candida Brown [place] [address] [place] [id number] Moderate persistent asthma with acute exacerbation in [...] Never 12/05/2023 How often do you attend mu-ism or buddhism serv ices? Never 12/05/2023 Do you belong to any clubs o r organizations such as mu-ism groups, unions, fraternal or athletic groups, or [...] Recorded Patient Health Questionnaire-2 Score 0 07/17/2023 [facility] of Occupat ional Health - Occupational Stress [...] any time in the past 12 m [facility], were you homeless or living in a senior care (including now)? No 12/05/2023 Comments Unknown Sex [...] documented as of this encounter Care Teams Capacitor Pack Press Operator Relationship Specialty Start Date End Date Mark Singh MD [address] [place] [address] PCP - General Family Medicine 12/14/23 Candida Brown NP [address] [place] [address] Nurse Practitioner Family Medicine 11/13/22 documented as of this encounter
--- OUTSIDE RECORDS SUMMARY | 2024-09-24 15:13 | XMS_ITS | Encounter Summary ---
Author Organization [facility] Address [address] [place] [address] Care Team Providers Care Labor And Delivery Nurse Name Role Phone Candida Brown NP Unavailable [phone] Mark Singh MD Primary Care Provider [phone] Encounter Details Date Type Department Care Team (Late st Contact Info) Description 07/22/2024 [facility] [address] [place] [address] Candida Brown NP [address] [place] [address] Social History Tobacco Use Types Packs/Day Years [...] Never 12/05/2023 How often do you attend mandaeism or protestant serv ices? Never 12/05/2023 Do you belong to any clubs o r organizations such as mandaeism groups, unions, fraternal or athletic groups, or [...] 07/17/2023 [facility] of Occupat ional Health - Occupational [...] any time in the past 12 m [facility], were you homeless or living in a residential (including now)? No 12/05/2023 Comments Unknown Sex [...] documented as of this encounter Care Teams Labor And Delivery Nurse Relationship Specialty Start Date End Date Mark Singh MD [address] [place] [address] PCP - General Family Medicine 12/14/23 Candida Brown NP [address] [place] [address] Nurse Practitioner Family Medicine 11/13/22 documented as of this encounter
--- OUTSIDE RECORDS SUMMARY | 2024-09-24 15:13 | XMS_ITS | Encounter Summary ---
Author Organization [facility] Address [address] [place] [address] Care Team Providers Care Machine Heel Builder Name Role Phone Candida Brown NP Unavailable [phone] Mark Singh MD Primary Care Provider [phone] Encounter Details Date Type Department Care Team (Late st Contact Info) Description 07/23/2024 [facility] [address] [place] [address] Candida Brown NP [address] [place] [address] Social History Tobacco Use Types Packs/Day Years [...] Never 12/05/2023 How often do you attend protestant or synagogue serv ices? Never 12/05/2023 Do you belong to any clubs o r organizations such as protestant groups, unions, fraternal or athletic groups, or [...] Recorded Patient Health Questionnaire-2 Score 0 07/17/2023 [facility] of Occupat ional Health - Occupational [...] any time in the past 12 m [facility], were you homeless or living in a longterm (including now)? No 12/05/2023 Comments Unknown Sex [...] documented as of this encounter Care Teams Machine Heel Builder Relationship Specialty Start Date End Date Mark Singh MD [address] [place] [address] PCP - General Family Medicine 12/14/23 Candida Brown NP [address] [place] [address] Nurse Practitioner Family Medicine 11/13/22 documented as of this encounter
--- OUTSIDE RECORDS SUMMARY | 2024-09-24 15:13 | XMS_ITS | Encounter Summary ---
Author Organization [facility] Address [address] [place] [address] Care Team Providers Care Route Cdl Driver Name Role Phone Candida Brown PEARL HAND Unavailable [phone] Mark Singh MD Primary Care Provider [phone] Encounter Details Date Type Department Care Team (Late st Contact Info) Description 07/23/2024 Orders Only [facility] [address] [place] [address] Candida Brown NP [address] [place] [address] Social History Tobacco Use Types Packs/Day Years [...] Never 12/05/2023 How often do you attend yarsanism or uatsdin serv ices? Never 12/05/2023 Do you belong to any clubs o r organizations such as yarsanism groups, unions, fraternal or athletic groups, or [...] Recorded Patient Health Questionnaire-2 Score 0 07/17/2023 [facility] of Occupat ional Health - Occupational [...] any time in the past 12 m [facility], were you homeless or living in a alf (including now)? No 12/05/2023 Comments Unknown Sex and Gender Information Value Date Recorded Sex Assigned at Not on file Legal Sex Female 6:46 PM EDT Gender Identity Not on file Sexual Orientation Not on file documented as of this encounter Plan of Treatment Not on file documented as of this encounter Procedures Procedure Name Priority Date/Time Associated Diagnosis Comments XR CHEST 1 VIEW Routine 07/23/2024 2:10 PM EDT documented in this encounter Results * XR chest 1 view (07/23/2024 2:10 PM EDT) Anatomical Region Laterality Modality Chest Radiographic Natasha ging Candida Brown PEARL HAND IMG XR PROCEDURES Final Result documented in this encounter Visit Diagnoses Not on filedocumented in this encounter Additional Health Concerns Assessment Noted Time PHQ-9 Depression Total Score: 4 07/17/19 24 2:04 PM EDT documented as of this encounter Care Teams Route Cdl Driver Relationship Specialty Start Date End Date Mark Singh MD [address] [place] [address] PCP - General Family Medicine 12/14/23 Candida Brown NP [address] [place] [address] Nurse Practitioner Family Medicine 11/13/22 documented as of this encounter
--- OUTSIDE RECORDS SUMMARY | 2024-09-24 15:13 | XMS_ITS | Encounter Summary ---
Author Organization [facility] Address [address] [place] [address] Care Team Providers Care Training Instructor Name Role Phone Candida Brown NP Unavailable [phone] Mark Singh MD Primary Care Provider [phone] Encounter Details Date Type Department Care Team (Late st Contact Info) Description 07/22/2024 Orders Only [facility] [address] [place] [phone] Chuck Davis MD [address] [place] [address] Social History Tobacco Use Types Packs/Day Years [...] Never 12/05/2023 How often do you attend moravian or confucianism serv ices? Never 12/05/2023 Do you belong to any clubs o r organizations such as moravian groups, unions, fraternal or athletic groups, or [...] Patient Health Questionnaire-2 Score 0 07/17/2023 [facility] of Occupat ional Health - Occupational Stress [...] any time in the past 12 m [facility], were you homeless or living in a nursing home (including now)? No 12/05/2023 Comments Unknown Sex and Gender Information Value Date Recorded Sex Assigned at Not on file Legal Sex Female 6:46 PM EDT Gender Identity Not on file Sexual Orientation Not on file documented as of this encounter Plan of Treatment Not on file documented as of this encounter Procedures Procedure Name Priority Date/Time Associated Diagnosis Comments CT PELVIS WITH CONTRAST Routine 07/22/2024 10:17 AM EDT documented in this encounter Results * CT PELVIS WITH CONTRAST (07/22/2024 10:17 AM EDT) Anatomical Region Laterality Modality Radiographic Natasha ging Chuck Davis MD IMG XR PROCEDURES Final Result documented in this encounter Visit Diagnoses Not on filedocumented in this encounter Additional Health Concerns Assessment Noted Time PHQ-9 Depression Total Score: 4 07/17/19 24 2:04 PM EDT documented as of this encounter Care Teams Training Instructor Relationship Specialty Start Date End Date Mark Singh MD [address] [place] [address] PCP - General Family Medicine 12/14/23 Candida Brown NP [address] [place] [address] Nurse Practitioner Family Medicine 11/13/22 documented as of this encounter
--- OUTSIDE RECORDS SUMMARY | 2024-09-24 15:13 | XMS_ITS | Encounter Summary ---
Author Organization Daniel [facility] Address [address], [address] [place] [address] Care Team Providers Care It Professional Name Role Phone Candida Brown APRN - ADOLFO Primary Care Provide r Reason for Referral * Eval and Treat (Routine) - Open Specialty Diagnoses / Procedures Referred By Contac t Referred To Contact Wound Ostomy Diagnoses Sacral osteomyelitis (HCC) Necrotizing fasciitis (HCC) Caitlin Brisneo MD [address] [facility] [address] [place] [address] Phone: tel: fax: Samantha Alejandra MD [address] [place] [address] Phone: tel: fax: Referral ID Status Reason Start Date Expiration Date V isits Requested Visits Authorized [id number] Open Specialty Services Required 09/23/2024 09/23/2025 1 1 Scheduling Instructions [facility] Comments The patient can be scheduled with any member of the group, including the provider with the first available appointments. * Eval and Treat (Routine) - Authorized Specialty Diagnoses / Procedures Referred By Contac t Referred To Contact Wound Care / Wound Ostomy Diagnoses Sacral osteomyelitis (HCC) Necrotizing fasciitis (HCC) Caitlin Briseno MD [address] [facility] ACC [address] [place] [address] Phone: tel: fax: [facility] [address] [place] [address] Phone: tel: Referral ID Status Reason Start Date Expiration Date Visits Requested Visits Authorized [id number] Authorized Specialty Services Required 09/23/2024 09/23/2025 1 1 Scheduling Instructions [facility] Question Answer My clinical question is: assess buttock wound-discuss possible skin flap o left buttock Comments The patient can be scheduled with any member of the group, including the provider with the first available appointments. Reason for Visit * Reason Onset Date Comments Follow-Up from Hospital 09/16/2024 Encounter Details Date Type Department Care Team (Late st Contact Info) Description 09/16/2024 Telephone [facility] General Surgery [address] [facility] [place], [place] [id number] Caitlin Briseno MD [address] [place] [address] Follow-Up from Hospital Social History Tobacco Use Types Packs/Day Years [...] PM EDT Appointment [facility] [address] [place] [address] [place] [address] [facility] [address] [place] [address] sacral wound - stretcher ([facility]) Scheduled Referrals Name Type Priority Associated Diagnoses Orde r Samantha Lepe MD, Plastic Surgery, [place] Outpatient Referral Routine Sacral osteomyelitis (HCC) Necrotizing fasciitis (HCC) Ordered: 09/23/2024 [facility] Outpatient Referral Routine Sacral osteomyelitis (HCC) Necrotizing fasciitis (HCC) Ordered: 09/23/2024 documented as of this encounter Visit Diagnoses Diagnosis Sacral osteomyelitis (HCC)- Primary Unspecified osteomyelitis, other specified site Necrotizing fasciitis (HCC) Necrotizing fasciitis documented in this encounter Care Teams It Professional Relationship Specialty Start Date End Date Candida Brown, BONE COOKING OPERATOR - SAW MAN [address] [place] [address] PCP - General Nurse Practitioner 09/02/22 documented as of this encounter
--- OUTSIDE RECORDS SUMMARY | 2024-09-24 15:13 | XMS_ITS | Encounter Summary ---
Author Organization Daniel [facility] Address [address], [address] [place] [address] Care Team Providers Care Cannery Tender Engineer Name Role Phone Candida Brown APRN - ADOLFO Primary Care Provide r Encounter Details Date Type Department Care Team (Late st Contact Info) Description 09/23/2024 [facility] [address] [facility] [address] [place] [address] Kash Garcia MD [address] [facility] [address] [place], [place] [id number] Social History Tobacco Use Types Packs/Day Years [...] Info) Description 10/07/2024 2:[address] [facility] [address] [place] [address] [place] [address] [facility] [address] [place] [address] sacral wound - stretcher ([facility]) documented as of this encounter Visit Diagnoses Not on filedocumented in this encounter Care Teams Cannery Tender Engineer Relationship Specialty Start Date End Date Candida Brown, CLIMATE CHANGE RISK ASSESSOR - SOFTWARE CONFIGURATION ANALYST [address] [place] [address] PCP - General Nurse Practitioner 09/02/22 documented as of this encounter
--- OUTSIDE RECORDS SUMMARY | 2024-09-24 15:13 | XMS_ITS | Encounter Summary ---
Author Organization [facility] Address [address] [place] [address] Care Team Providers Care Video Editing Intern Name Role Phone Candida Brown DIGESTER OPERATOR Unavailable [phone] Mark Singh MD Primary Care Provider [phone] Reason for Visit * Reason Comments Med Refill Encounter Details Date Type Department Care Team (Late st Contact Info) Description 09/06/2024 Refill [facility] [address] [place] [address] Candida Brown, DIGESTER OPERATOR [address] [place] [address] Mixed hyperlipidemia ; Type 2 diabetes mellitus without complication, with long-term current use of insulin (HCC); Essential hypertension Social History Tobacco Use Types Packs/Day Years [...] Never 12/05/2023 How often do you attend cheondoism or mandaen serv ices? Never 12/05/2023 Do you belong to any clubs o r organizations such as cheondoism groups, unions, fraternal or athletic groups, or [...] [facility] Occupat ional [facility] - Occupational Stress Questionnaire Answer [...] any time in the past 12 m [facility], were you homeless or [...] as of this encounter Visit Diagnoses Diagnosis Mixed hyperlipidemia Mixed hyperlipidemia Type 2 diabetes mellitus without complication, with long-term current use of insulin (HCC) Essential hypertension Unspecified essential hypertension documented in this encounter Additional Health Concerns Assessment Noted Time PHQ-9 Depression Total Score: 4 07/17/19 24 2:04 PM EDT documented as of this encounter Care Teams Video Editing Intern Relationship Specialty Start Date End Date Mark Snigh MD [address] [place] [address] PCP - General Family Medicine 12/14/23 Candida Brown NP [address] [place] [address] Nurse Practitioner Family Medicine 11/13/22 documented as of this encounter
--- OUTSIDE RECORDS SUMMARY | 2024-09-24 15:13 | XMS_ITS | Clinical Summary ---
Author Organization [facility] Address [address] [place] [address] Care Team Providers Care Medication Manager Name Role Phone Candida Brown NP Unavailable [phone] Mark Singh MD Primary Care Provider [phone] Allergies Active Allergy Reactions Criticality Noted Date Comments Cephalexin Hives 03/03/2023 Penicillins Hives 03/03/2023 Medications meclizine (Antivert) 25 MG tablet Take 25 mg by mouth 3 (three) times a day as needed for dizziness 01/04/20 23 Active Glucose Blood (Blood Glucose Test Strips 333) stripIndications:T ype 2 diabetes mellitus without complication, with long-term current use of insulin ([facility]) Apply 1 each topically in the morning and 1 each at noon and 1 each in the evening and 1 each before bedtime. 100 strip 3 03/20/19 24 Active pravastatin (Pravachol) 20 MG tabletIndications: Mixed hyperlipidemia Take 1 tablet (20 mg) by mouth at bedtime 90 tablet 1 09/12/19 24 Active glipiZIDE (Glucotrol) 10 MG tabletIndications: Type 2 diabetes mellitus without complication, with long-term current use of insulin (HCC) Take 1 tablet (10 mg) by mouth in the morning and 1 tablet (10 mg) in the evening. Take before meals. 180 tablet 1 09/12/19 24 Active insulin glargine (Lantus) 100 UNIT/ML injectionIndicatio ns:Type 2 diabetes mellitus with insulin therapy (HCC) Inject 25 Units under the skin in the morning and 25 Units before bedtime. 45 mL 1 09/12/19 24 Active insulin glargine (Lantus) 100 UNIT/ML injectionIndicatio ns:Type 2 Diabetes Mellitus Inject 25 Units under the skin in the morning and 25 Units before bedtime. 20 mL 3 09/19/19 24 Active Continuous Glucose Pantry Cook (Dexcom G7 Pantry Cook) deviceIndications: Type 2 diabetes mellitus with insulin therapy ([facility]),Hypoglycemia 1 each Daily 1 each 12/06/19 24 025 Active fluconazole (Diflucan) 150 MG tabletIndications: Candidiasis of breast Every 3 days for a total of 3 doses 3 tablet 12/06/19 24 Active PARoxetine (Paxil) 10 MG tabletIndications: Anxiety and depression Take 1 tablet (10 mg) by mouth in the morning. 90 tablet 04/05/19 25 Active albuterol (2.5 MG/3ML) 0.083% nebulizer solutionIndication s:Chronic obstructive pulmonary disease, unspecified COPD type ([facility]),Severe asthma, unspecified whether complicated, unspecified whether persistent ([facility]) Take 3 mL (2.5 mg) by nebulization 4 (four) times a day as needed for wheezing Take 2.5 mg by nebulization 4 (four) times a day as needed for wheezing 360 mL 05/01/19 25 Active hydroCHLOROthiazid e (HYDRODiuril) 25 MG tabletIndications: Essential hypertension Take 1 tablet (25 mg) by mouth in the morning. 90 tablet 05/16/19 25 Active albuterol HFA 90 mcg/act inhalerIndications :Moderate persistent asthma with acute exacerbation in adult ([facility]) Inhale 2 puffs every 6 (six) hours if needed for wheezing 18 g 05/23/19 25 Active omeprazole (PriLOSEC) [address] capsuleIndications :Gastroesophageal reflux disease without esophagitis Take 1 capsule (20 mg) by mouth in the morning. Take before meals. 90 capsule 06/08/19 25 Active metFORMIN (Glucophage) 500 MG tabletIndications: Type 2 diabetes mellitus without complication, with long-term current use of insulin ([facility]) Take 1 tablet (500 mg) by mouth in the morning and 1 tablet (500 mg) in the evening. Take with meals. 180 tablet 06/08/19 25 Active lisinopril 5 MG tabletIndications: Type 2 diabetes mellitus without complication, with long-term current use of insulin ([facility]),Essential hypertension Take 1 tablet (5 mg) by mouth in the morning. 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 [facility] 11/27/2023 Type 2 diabetes mellitus wit h diabetic chronic kidney disease 11/27/2023 Chronic kidney disease, stage 3b 11/27/2023 Assessment & Plan (12/06/2023 5:33 PM EDT): Check labs Morbid (severe) obesity due to excess calories 1 Body mass index (BMI) 50.0-59.9, adult Encounter for subsequent [facility] wellness visit (AWV) in Medicare patient [...] of the risks of continued smoking: stroke, CO, all forms of cancer, lung disease, and [...] without long-term current use of insulin 10/13/2022 03/20/2023 Encounters Date Type Department Care Team Description 09/24/2024 Abstract [facility] [address] [place] [address] Candida Brown, ADOLFO 09/06/2024 Refill [facility] [address] [place] [address] Candida Brown, ADOLFO Mixed hyperlipidemia ; Type 2 diabetes mellitus without complication, with long-term current use of insulin (HCC); Essential hypertension 08/12/2024 Abstract [facility] [address] [place] [address] Candida Brown, ADOLFO 07/31/2024 Abstract [facility] [address] [place] [address] Candida Brown, ADOLFO 07/29/2024 Abstract [facility] [address] [place] [address] Candida Brown, ADOLFO 07/25/2024 Clinisync Result Encounter [facility] External Department Unsolicited Provider, Generic External Data 07/23/2024 Abstract [facility] [address] [place] [address] Candida Brown, ADOLFO 07/23/2024 Orders Only [facility] [address] [place] [address] Candida Brown, ADOLFO 07/23/2024 Patient Outreach [facility] [address] [place] [address] Pamella Duncan MA 07/22/2024 Abstract [facility] [address] [place] [address] Candida Brown, ADOLFO 07/22/2024 Abstract [facility] [address] [place] [address] Candida Brown, ADOLFO 07/22/2024 Abstract [facility] [address] [place] [address] Candida Brown, ADOLFO 07/22/2024 Orders Only [facility] [address] [place] [address] Chuck Davis MD 07/19/2024 Clinisync Result Encounter [facility] External Department Unsolicited Provider, Generic External Data 07/17/2024 Telephone [facility] [address] [place] [address] Candida Brown, DAM OPERATOR from Last 3 Months Immunizations Immunization Administration [...] Never 12/05/2023 How often do you attend lutheran or lutheran serv ices? Never 12/05/2023 Do you belong to any clubs o r organizations such as lutheran groups, unions, fraternal or athletic groups, or [...] Recorded Patient Health Questionnaire-2 Score 0 07/17/2023 [facility] [place] of Occupat ional Health - Occupational Stress [...] time in the past 12 m [facility], were you homeless or living in a mcfp (including now)? No 12/05/2023 Comments Unknown Sex [...] 07/17/2023 1:55 PM EDT Plan of Treatment Health Maintenance Due Date Last Done Comments CT Colonography 1960 Colonoscopy 1961 FIT 1961 FOBT 1960 Sigmoidoscopy 1960 Pap Smear 1982 HPV/Cotest 11/04/1991 Colorectal Cancer Screening 07/19/2020 FIT-DNA 07/19/2020 07/19/2017 Mammogram 07/16/2024 07/17/2023 (Patient Refused) Medicare Annual Wellness (AWV) 07/16/2024 07/17/2023 , 07/17/2023 Diabetes: Urine Protein Screening 08/10/2024 024 Influenza Vaccine (#1) 2024 4, 12/03/2022, 01/03/2021 Diabetes: Hemoglobin A1C 10/24/2024 07/24/2024, 07/02/2022 Diabetes: Retinopathy Screening 07/16/2025 4 (Patient Refused) Cervical Cancer Screening Discontinued Procedures Procedure Name Priority Date/Time Associated Diagnosis Comments MHPT CULT, BLOOD Routine 07/25/2024 10:3 8 AM EDT MHPT CULT,BLOOD Routine 07/25/2024 10:30 AM EDT XR CHEST 1 VIEW Routine 07/23/2024 2:[address] PELVIS WITH CONTRAST Routine 07/22/2024 10:17 AM EDT MHPT CULT,FUNGUS Routine 07/19/2024 10:3 0 AM EDT MHPT CULT,AEROBE/ANAEROB E Routine 07/19/2024 10:30 AM EDT BLOOD CULTURE 2 Routine 07/19/2024 10:05 AM EDT BLOOD CULTURE 1 Routine 07/19/2024 9:56 AM EDT URINE CULTURE - [facility] Routine 07/19/2024 9:55 AM EDT from Last 3 Months Results * MHPT CULT, BLOOD (07/25/2024 10:38 AM EDT) MHPT CULT, BLOOD Specimen Description .BLOOD MHPT MHPT CULT, BLOOD Special Requests LT H 1ML FLUID MHPT MHPT CULT, BLOOD Culture NO GROWTH 5 DAYS MHPT MHPT CULT, BLOOD Report Status FINAL 07/30/2024 MHPT 07/25/2024 10:3 8 AM EDT 07/25/2024 10:46 AM EDT Narrative CLINISYNC - 07/30/2024 10:49 AM EDT Original Ordering Provider: ROSALIA TORRES us Generic External Data Provider CLINISYNC F inal Result Performing Organization Address [facility] Co de Phone Number CLINISYNC MHPT * MHPT CULT,BLOOD (07/25/2024 10:30 AM EDT) MHPT CULT,BLOOD Specimen Description .BLOOD MHPT MHPT CULT,BLOOD Special Requests RT H .05 FLUID MHPT MHPT CULT,BLOOD Culture NO GROWTH 5 DAYS MHPT MHPT CULT,BLOOD Report Status FINAL 07/30/2024 MHPT 07/25/2024 10:3 0 AM EDT 07/25/2024 10:46 AM EDT Narrative CLINISYNC - 07/30/2024 10:59 AM EDT Original Ordering Provider: ROSALIA TORRES us Generic External Data Provider CLINISYNC F inal Result CLINISYNC MHPT * XR chest 1 view (07/23/2024 2:10 PM EDT) Anatomical Region Laterality Modality Chest Radiographic Natasha ging us Candida Brown DAM OPERATOR IMG XR PROCEDURES Final Result * CT PELVIS WITH CONTRAST (07/22/2024 10:17 AM EDT) Anatomical Region Laterality Modality Radiographic Natasha ging Chuck Davis MD IMG XR PROCEDURES Final Result * MHPT CULT,FUNGUS (07/19/2024 10:30 AM EDT) MHPT CULT,FUNGUS Specimen Description .BUTTOCK, LEFT MHPT MHPT CULT,FUNGUS Direct Exam NO FUNGAL ELEMENTS SEEN MHPT MHPT CULT,FUNGUS Culture NO GROWTH 30 DAYS MHPT MHPT CULT,FUNGUS Report Status FINAL 08/19/2024 MHPT 07/19/2024 10:3 0 AM EDT 07/19/2024 11:33 PM EDT Narrative CLINISYNC - 08/19/2024 2:54 PM EDT Original Ordering Provider: LEXUS LEIGH Generic External Data Provider CLINISYNC F inal Result Performing Organization Address [facility] de Phone Number CLINISYNC MHPT * (ABNORMAL) MHPT CULT,AEROBE/ANAEROBE (07/19/2024 10:30 AM EDT) MHPT CULT,AEROBE/ ANAEROBE Specimen Description .BUTTOCK, LEFT MHPT MHPT CULT,AEROBE/ ANAEROBE Direct Exam RARE NEUTROPHILS MHPT MHPT CULT,AEROBE/ ANAEROBE MIXED BACTERIAL MORPHOTYPES SEEN ON GRAM STAIN. MHPT MHPT CULT,AEROBE/ ANAEROBE Culture BACTEROIDES THETAIOTAOMICRON MODERATE GROWTH Identification by MALDI-TOF BETA(A) MHPT MHPT CULT,AEROBE/ ANAEROBE LACTAMASE POSITIVE (A) MHPT MHPT CULT,AEROBE/ ANAEROBE NORMAL SKIN CITLALI MHPT MHPT CULT,AEROBE/ ANAEROBE Report Status FINAL 07/24/2024 MHPT 07/19/2024 10:3 0 AM EDT 07/19/2024 11:33 PM EDT Narrative CLINISYNC - 07/24/2024 7:05 AM EDT Original Ordering Provider: LEXUS LEIGH Generic External Data Provider CLINISYNC F inal Result Performing Organization Address [facility] Co de Phone Number CLINISYNC MHPT * BLOOD CULTURE 2 (07/19/2024 10:05 AM EDT) BLOOD CULTURE 2 Blood Culture 2 NG5D NO GROWTH AT 5 DAYS.^NO GROWTH AT 5 DAYS. [facility] 07/19/2024 10:0 5 AM EDT 07/19/2024 10:15 AM EDT Narrative CLINISYMA - 07/24/2024 6:41 PM EDT PEDS ONLY us Generic External Data Provider LAB BLOOD ORDERAB LES Final Result [facility] * BLOOD CULTURE 1 (07/19/2024 9:56 AM EDT) BLOOD CULTURE 1 Blood Culture 1 NG5D NO GROWTH AT 5 DAYS.^NO GROWTH AT 5 DAYS. [facility] 07/19/2024 9:56 AM EDT 07/19/2024 10:14 AM EDT Narrative CLINISYMA - 07/24/2024 6:41 PM EDT PEDS ONLY us Generic External Data Provider LAB BLOOD ORDERAB LES Final Result Performing Organization Address City/[facility]/ZIP Co de Phone Number [facility] * URINE CULTURE - [facility] (07/19/2024 9:55 AM EDT) URINE CULTURE - [facility] Urine Culture - [facility] No Growth 2 Days [facility] URINE CULTURE - [facility] URINE CULTURE - [facility] Testing performed at [facility] URINE CULTURE - [facility] [address] [place] [address] [facility] 07/19/2024 9:55 AM EDT 07/19/2024 10:16 AM EDT Narrative CLINISYMA - 07/22/2024 11:22 AM EDT us Generic External Data Provider LAB BLOOD ORDERAB LES Final Result [facility] from Last 3 Months Insurance * Guarantor: Denise Zelaya Account Type Relation to Patient Date of Phone Billing Address Personal/Family Self 1960 [address] [place] [id number] [employer] Care Teams Medication Manager Relationship Specialty Start Date End Date Mark Singh MD [address] [place] [address] PCP - General Family Medicine 12/14/23 Candida Brown NP [address] [place] [address] Nurse Practitioner Family Medicine 11/13/22
--- OUTSIDE RECORDS SUMMARY | 2024-09-24 15:13 | XMS_ITS | Encounter Summary ---
Author Organization [facility] Address [address] [place] [address] Care Team Providers Care Rail Splitter Name Role Phone Candida Brown NP Unavailable [phone] Mark Singh MD Primary Care Provider [phone] Encounter Details Date Type Department Care Team (Late st Contact Info) Description 07/29/2024 [facility] [address] [place] [address] Candida Brown NP [address] [place] [address] Social History Tobacco Use Types Packs/Day Years [...] Never 12/05/2023 How often do you attend mormon or quaker serv ices? Never 12/05/2023 Do you belong to any clubs o r organizations such as mormon groups, unions, fraternal or athletic groups, or [...] were you homeless or living in a retirement (including now)? No 12/05/2023 Comments Unknown Sex [...] documented as of this encounter Care Teams Rail Splitter Relationship Specialty Start Date End Date Mark Singh MD [address] [place] [address] PCP - General Family Medicine 12/14/23 Candida Brown NP [address] [place] [address] Nurse Practitioner Family Medicine 11/13/22 documented as of this encounter
--- OUTSIDE RECORDS SUMMARY | 2024-09-24 15:13 | XMS_ITS | Encounter Summary ---
Author Organization [facility] Address [address] [place] [address] Care Team Providers Care Senior Operations Analyst Name Role Phone Candida Brown SUEDE BRUSHER Unavailable [phone] Mark Singh MD Primary Care Provider [phone] Reason for Visit * Reason Comments Med Refill Encounter Details Date Type Department Care Team (Late st Contact Info) Description 05/01/2024 Refill [facility] [address] [place] [address] Candida Brown SUEDE BRUSHER [address] [place] [address] Moderate persistent asthma with acute exacerbation in [...] How often do you attend yarsani or lutheran serv ices? Never 12/05/2023 Do [...] Recorded Patient Health Questionnaire-2 Score 0 07/17/2023 [facility] of Occupat ional Health - Occupational [...] time in the past 12 m [facility], were you homeless or living in a care home (including now)? No 12/05/2023 Comments Unknown [...] as of this encounter Care Teams Senior Operations Analyst Relationship Specialty Start Date End Date Mark Singh MD [address] [place] [address] PCP - General Family Medicine 12/14/23 Candida Brown NP [address] [place] [address] Nurse Practitioner Family Medicine 11/13/22 documented as of this encounter
--- OUTSIDE RECORDS SUMMARY | 2024-09-24 15:13 | XMS_ITS | Encounter Summary ---
Author Organization [facility] Address [address] [place] [address] Care Team Providers Care Laborer Operator Name Role Phone Cadnida Brown NP Unavailable [phone] Mark Singh MD Primary Care Provider Encounter Details Date Type Department Care Team (Late st Contact Info) Description 07/22/2024 [facility] [address] [place] [address] Candida Brown NP [address] [place] [address] Social History Tobacco Use Types Packs/Day Years [...] Never 12/05/2023 How often do you attend catholic or sikhism serv ices? Never 12/05/2023 Do you belong to any clubs o r organizations such as catholic groups, unions, fraternal or athletic groups, or [...] [facility] - Occupational Stress [...] No 12/05/2023 Housing Stability Vital Sign Answer Melivn e Recorded In the last 12 months, was t here a time when you were not able to pay the mortgage or rent on time? No 12/05/2023 Number of Times Moved in the Last Year Not on fi le 12/05/2023 At any time in the past 12 m [facility], were you homeless or living in a detention (including now)? No 12/05/2023 Comments Unknown Sex [...] documented as of this encounter Care Teams Laborer Operator Relationship Specialty Start Date End Date Mark Singh MD [address] [place] [address] PCP - General Family Medicine 12/14/23 Candida Brown NP [address] [place] [address] Nurse Practitioner Family Medicine 11/13/22 documented as of this encounter
--- OUTSIDE RECORDS SUMMARY | 2024-09-24 15:13 | XMS_ITS | Encounter Summary ---
Author Organization [facility] Address [address] [place] [address] Care Team Providers Care Hydrotel Operator Name Role Phone Candida Brown NP Unavailable [phone] Mark Singh MD Primary Care Provider [phone] Encounter Details Date Type Department Care Team (Late st Contact Info) Description 07/31/2024 [facility] [address] [place] [address] Candida Brown NP [address] [place] [address] Social History Tobacco Use Types Packs/Day Years [...] Never 12/05/2023 How often do you attend roman catholic or yazidi serv ices? Never 12/05/2023 Do you belong to any clubs o r organizations such as roman catholic groups, unions, fraternal or athletic groups, [...] Recorded Patient Health Questionnaire-2 Score 0 07/17/2023 [facility] Occupat ional Health - Occupational [...] were you homeless or living in a [place] [facility] (including now)? No 12/05/2023 Comments Unknown Sex [...] documented as of this encounter Care Teams Hydrotel Operator Relationship Specialty Start Date End Date Mark Singh MD [address] [place] [address] PCP - General Family Medicine 12/14/23 Candida Brown NP [address] [place] [address] Nurse Practitioner Family Medicine 11/13/22 documented as of this encounter
--- OUTSIDE RECORDS SUMMARY | 2024-09-24 15:13 | XMS_ITS | Encounter Summary ---
Author Organization [facility] Address [address] [place] [address] Care Team Providers Care Frame Polisher Name Role Phone Candida Brown [facility] Unavailable [phone] Mark Singh MD Primary Care Provider [phone] Reason for Visit * Reason Comments Med Refill Encounter Details Date Type Department Care Team (Late st Contact Info) Description 04/06/2024 Refill [facility] [address] [place] [address] Candida Brown [facility] [address] [place] [address] Moderate persistent asthma with acute exacerbation in [...] Never 12/05/2023 How often do you attend jehovah's witness or mandaen serv ices? Never 12/05/2023 Do you belong to any clubs o r organizations such as jehovah's witness groups, unions, fraternal or athletic groups, or [...] Recorded Patient Health Questionnaire-2 Score 0 07/17/2023 [facility] Occupat ional Health - Occupational [...] any time in the past 12 m [facility], were you homeless or living in [...] documented as of this encounter Care Teams Frame Polisher Relationship Specialty Start Date End Date Mark Singh MD [address] [place] [address] PCP - General Family Medicine 12/14/23 Candida Brown NP [address] [place] [phone] Nurse Practitioner Family Medicine 11/13/22 documented as of this encounter
--- OUTSIDE RECORDS SUMMARY | 2024-09-24 15:13 | XMS_ITS | Encounter Summary ---
Author Organization [facility] Address [address] [place] [address] Care Team Providers Care Site Supervising Technical Operator Name Role Phone Candida Brown NP Unavailable [phone] Mark Singh MD Primary Care Provider [phone] Encounter Details Date Type Department Care Team (Late st Contact Info) Description 08/12/2024 [facility] [address] [place] [address] Candida Brown NP [address] [place] [address] Social History Tobacco Use Types Packs/Day Years [...] Never 12/05/2023 How often do you attend gnosticism or confucianism serv ices? Never 12/05/2023 Do you belong to any clubs o r organizations such as gnosticism groups, unions, fraternal or athletic groups, or [...] Recorded Patient Health Questionnaire-2 Score 0 07/17/2023 [facility] Occupat ional Health - Occupational Stress [...] any time in the past 12 m [facility], were you homeless or [...] documented as of this encounter Care Teams Site Supervising Technical Operator Relationship Specialty Start Date End Date Mark Singh MD [address] [place] [address] PCP - General Family Medicine 12/14/23 Candida Brown NP [address] [place] [address] Nurse Practitioner Family Medicine 11/13/22 documented as of this encounter
--- OUTSIDE RECORDS SUMMARY | 2024-09-24 15:13 | XMS_ITS | Clinical Summary ---
Demographics Address [address] [place] [address] Home Phone Preferred Language Frisian Marital Status Druze Affiliation Unknown Race White Ethnic Group Not or Lati no Author Organization [employer] [id number] [address] [place] [address] Care Team Providers Care Leather Production Artisan Name Role Phone BillyflorCandida montesinos APRN-HOT CELL TECHNICIAN Primary Care Provider Allergies Active Allergy Reactions [...] Used Date Smoking Tobacco: Former Cigarettes 2 22.6 S tarted: 02/13/2002 Tobacco Cessation:Counseling Given: Not [...] progress towards goal: Safe dc return to [facility] Medical Devices Not on file Insurance [employer] MEDICARE Advance Directives * Full Code (Latest Code Status on File) Date Activated Date Inactivated Comments 10/13/2022 9:01 AM 10/14/2022 6:19 PM Care Teams Leather Production Artisan Relationship Specialty Start Date End Date Candida Brown, SPOOL HAULER-HOT CELL TECHNICIAN PCP - General Nurse Practitioner 09/22/22
--- OUTSIDE RECORDS SUMMARY | 2024-09-24 15:13 | XMS_ITS | Encounter Summary ---
Author Organization [facility] Address [address] [place] [address] Care Team Providers Care Commanding Officer Homicide Squad Name Role Phone Candida Brown NP Unavailable [phone] Mark Singh MD Primary Care Provider [phone] Encounter Details Date Type Department Care Team (Late st Contact Info) Description 07/22/2024 [facility] [address] [place] [address] Candida Brown NP [address] [place] [address] Social History Tobacco Use Types Packs/Day Years [...] How often do you attend gnosticism or anabaptism serv ices? Never 12/05/2023 Do you belong [...] Recorded Patient Health Questionnaire-2 Score 0 07/17/2023 [facility] Occupat ional Health - [...] any time in the past 12 m [facility], were you homeless or living in a long-term (including now)? No 12/05/2023 Comments Unknown Sex [...] documented as of this encounter Care Teams Commanding Officer Homicide Squad Relationship Specialty Start Date End Date Mark Singh MD [address] [place] [address] PCP - General Family Medicine 12/14/23 Candida Brown NP [address] [place] [address] Nurse Practitioner Family Medicine 11/13/22 documented as of this encounter
--- OUTSIDE RECORDS SUMMARY | 2024-09-24 15:13 | XMS_ITS | Encounter Summary ---
Author Organization [facility] Address [address], [address] [place] [address] Care Team Providers Care Pm Head Cook Name Role Phone Candida Brown APRN - ADOLFO Primary Care Provide r Encounter Details Date Type Department Care Team (Late st Contact Info) Description 12/16/2022 Pre-procedure Telephone [facility] [address] [place] [address] Zoey Downing Social History Tobacco Use Types [...] PM EDT Appointment [facility] [address] [place], [place] [phone] [place] [address] [place] [address] sacral wound - stretcher ([facility]) documented as of this encounter Visit Diagnoses Not on filedocumented in this encounter Care Teams Pm Head Cook Relationship Specialty Start Date End Date Candida Brown, RN LACTATION - INSTALLMENT LOAN COLLECTOR [facility] [place] [address] PCP - General Nurse Practitioner 09/02/22 documented as of this encounter
--- OUTSIDE RECORDS SUMMARY | 2024-09-24 15:13 | XMS_ITS | Encounter Summary ---
Author Organization [facility] Address [address] [place] [address] Care Team Providers Care Sales And Marketing Administrator Name Role Phone Candida Brown APRN - ADOLFO Primary Care Provide r Encounter Details Date Type Department Care Team (Late st Contact Info) Description 02/22/2023 Pre-procedure Telephone [facility] [address] [place] [address] Glendy Perez RN Social History Tobacco Use [...] PM EDT Appointment [facility] [address] [place], [place] [phone] [place] [address] [facility] [address] [place] [address] sacral wound - stretcher ([facility]) documented as of this encounter Visit Diagnoses Not on filedocumented in this encounter Care Teams Sales And Marketing Administrator Relationship Specialty Start Date End Date Candida Brown, DRAWING CHECKER - DIP TANKER [address] [place] [address] PCP - General Nurse Practitioner 09/02/22 documented as of this encounter
--- OUTSIDE RECORDS SUMMARY | 2024-09-24 15:13 | XMS_ITS | Encounter Summary ---
Author Organization [facility] Address [address], [address] [place] [address] Care Team Providers Care Payroll Clerk Name Role Phone Candida Brown APRN - ADOLFO Primary Care Provide r Encounter Details Date Type Department Care Team (Late st Contact Info) Description 02/22/2023 Pre-procedure Telephone [facility] [address] [place] [address] Glendy Perez RN Social History Tobacco Use [...] PM EDT Appointment [facility] [address] [place], [place] [phone] [place] [address] [facility] [address] [place] [address] sacral wound - stretcher ([facility]) documented as of this encounter Visit Diagnoses Not on filedocumented in this encounter Care Teams Payroll Clerk Relationship Specialty Start Date End Date Candida Brown, LICENSED REAL ESTATE BROKER - INTAKE COUNSELOR [address] [place] [address] PCP - General Nurse Practitioner 09/02/22 documented as of this encounter
--- OUTSIDE RECORDS SUMMARY | 2024-09-24 15:13 | XMS_ITS | Encounter Summary ---
Author Organization [facility] Address [address] [place] [address] Care Team Providers Care Char Puller Name Role Phone Candida Brown [facility] Unavailable [phone] Mark Singh MD Primary Care Provider [phone] Reason for Visit * Reason Comments Med Refill Encounter Details Date Type Department Care Team (Late st Contact Info) Description 06/18/2024 Refill [facility] [address] [place] [address] Candida Brown OPERATIONS ASST [address] [place] [address] Moderate persistent asthma with acute exacerbation in [...] Never 12/05/2023 How often do you attend worship or uatsdin serv ices? Never 12/05/2023 Do you belong to any clubs o r organizations such as worship groups, unions, fraternal or athletic groups, or [...] Recorded Patient Health Questionnaire-2 Score 0 07/17/2023 [facility] of Occupat ional Health - Occupational Stress [...] any time in the past 12 m [facility], were you homeless or living in a [facility] (including now)? No 12/05/2023 Comments Unknown Sex [...] documented as of this encounter Care Teams Char Puller Relationship Specialty Start Date End Date Mark Singh MD [address] [place] [address] PCP - General Family Medicine 12/14/23 Candida Brown NP [address] [place] [address] Nurse Practitioner Family Medicine 11/13/22 documented as of this encounter
--- OUTSIDE RECORDS SUMMARY | 2024-09-24 15:13 | XMS_ITS | Encounter Summary ---
Author Organization [facility] Address [address] [place] [address] Care Team Providers Care Raw Material Handler Name Role Phone Candida Brown APRN - ADOLFO Primary Care Provide r Encounter Details Date Type Department Care Team (Late st Contact Info) Description 02/22/2023 Telephone [facility] [address] [place] [address] Glendy Perez RN Social History Tobacco Use [...] PM EDT Appointment [facility] [address] [place], [place] [phone] [place] [address] [facility] [address] [place], [place] [id number] sacral wound - stretcher ([facility]) documented as of this encounter Visit Diagnoses Not on filedocumented in this encounter Care Teams Raw Material Handler Relationship Specialty Start Date End Date Candida Brown, ALBERENE STONE SETTER - CNC LATHE PROGRAMMER [address] [place] [address] PCP - General Nurse Practitioner 09/02/22 documented as of this encounter
--- OUTSIDE RECORDS SUMMARY | 2024-09-24 16:43 | XMS_ITS | CCD ---
Author Organization [facility] Inform ion [facility] Care Team Providers Care Desulphuring Operator Name Role Phone PAY ., DR CADENA Admitting Unavailable ZIEBER, DR LIZZY Aguirre Consulting Unavailable PAY ., DR CADENA Attending Unavailable AICHHOLZ, FISHERY DIVISION CHIEF CANDIDA Primary Care Unavailable AUGUSTINE ., ELVER SCHREIBER Consulting Unavailabl e AICHHOLZ, FISHERY DIVISION CHIEF CANDIDA Admitting Unavailable AICHHOLZ, FISHERY DIVISION CHIEF CANDIDA Primary Care Unavailable AICHHOLZ, FISHERY DIVISION CHIEF CANDIDA Consulting Unavailable AICHHOLZ, FISHERY DIVISION CHIEF CANDIDA Attending Unavailable Aichholz, Candida J. Primary Care Provider NON STAFF Attending Provider Unavailable AICHHOLZ, CANDIDA J. Primary Care Unavailable DELORIS HOROWITZ Referring Unavailable AICHHOLZ, CANDIDA J. Primary Care Unavailable ALISIA CUELLAR Referring Unavailable AICHHOLZ, CANDIDA J. Primary Care Unavailable JANAK SHAFFER Referring Unavailable AICHHOLZ, CANDIDA J. Primary Care Unavailable JANAK SHAFFER Referring Unavailable AICHHOLZ, CANDIDA J. Primary Care Unavailable JANAK SHAFFER Referring Unavailable ALISIA CUELLAR Referring Unavailable AICHHOLZ, CANDIDA J. Primary Care Unavailable AICHHOLZ, CANDDIA J. Primary Care Unavailable JANAK SHAFFER Referring Unavailable Aichholz CLOUD ADMINISTRATOR, Candida Unavailable Mark Singh MD Primary Care Provider Unallocated , Daniss Provider Primary Care Provi alice AICHHOLZ, CANDIDA Attending Unavailable AICHHOLZ, CANDIDA Attending Unavailable AICHHOLZ, CANDIDA Attending Unavailable Mark Singh MD Primary Care Provider [phone] Pay Chuck DIMAS Attending Provider Chuck Julian Attending Unavailable Chuck Julian Admitting Unavailable Kevin SHELTON - Candida MATA Primary Care Provide r ALISIA CUELLAR Admitting Unavailable ALISIA CUELLAR Consulting Unavailable ALISIA CUELLAR Attending Unavailable CANDIDA BROWN Primary Care Unavailable JUD BARRON Consulting Unavailable NUVIA BAKER Consulting Unavailable ANANTH APARICIO Referring Unavailable RODOLFO CROWDER Referring Unavailable Allergies Allergy Classification Reported Allergen(s) Allergy Type Date of Onset Reaction(s) Facility (1 source) Cephalexin Drug Allergy 4 [facility] (1 source) Cephalexin Drug Allergy 5 [facility] (1 source) Penicillins Drug allergy (disorder) 4 [facility] (2 sources) Amoxicillin Drug Allergy 3 [facility] (2 sources) Penicillins Propensity to adverse reactions to drug 3 [facility] (20 sources) Cephalexin Drug Allergy 4 [facility] (20 sources) Penicillins Propensity to adverse reactions 4 [facility] (1 source) Latex Propensity to adverse reactions to drug 5 Rash [facility] Medications Current Medications Medication Drug Class(es) Dates Sig (Normalized) Sig (Original) acetaminophen 500 mg oral tablet (3 sources) Start: 07-24-2024 Start: 09-12-2022 End: 07-30-2024 take 650 mg by mouth every four hours as needed, then take 4000 mg by mouth every twenty-four hours as needed 650 mg, Oral, EVERY 4 HOURS PRN, Starting on Mon09/12/22 at 1631, Until Discontinued, Pain Mild (1-3) Maximum dose of acetaminophen is 4000 mg from all sources in 24 hours. [id number] 200 actuat albuterol 0.09 mg/actuat metered dose inhaler (20 sources) beta2-Adrenergic Agonist Start: 04-30-2024 End: 05-30-2024 albuterol (2.5 MG/3ML) 0.083% nebulizer solution Indications: Chronic obstructive pulmonary disease, unspecified COPD type (CMS/HCC) , Severe asthma, unspecified whether complicated, unspecified whether persistent (CMS/HCC) Take 3 mL (2.5 mg) by nebulization 4 (four) times a day as needed for wheezing Take 2.5 mg by nebulization 4 (four) times a day as needed for wheezing 360 mL 04/30/2024 Active Start: 09-28-2023 End: 06-21-2024 take 2 puff(s) by inhalation every six hours for wheezing albuterol HFA 90 mcg/act inhaler Indications: Moderate persistent asthma with acute exacerbation in adult (CMS/HCC) Inhale 2 puffs every 6 (six) hours if needed for wheezing 18 g 05/22/2024 Active Start: 03-20-2023 End: 03-02-2024 albuterol (2.5 MG/3ML) 0.083 % nebulizer solution Indications: Chronic obstructive pulmonary disease, unspecified COPD type (CMS/HCC) , Severe asthma, unspecified whether complicated, unspecified whether persistent (CMS/HCC) Take 3 mL (2.5 mg) by nebulization 4 (four) times a day as needed for wheezing Take 2.5 mg by nebulization 4 (four) times a day as needed for wheezing 360 mL 1 02/01/2024 Active Start: 09-02-2022 2.5 mg, Nebuli zation, As Directed - RT (PRN), Starting on Mon09/02/22 at 0524, Until Discontinued, Wheezing Initiate RT Bronchodilator Protocol: Yes - Inpatient Protocol End: 07-30-2024 End: 07-30-2024 Continuous Glucose Project Crew Worker (Dexcom G7 Project Crew Worker) device (20 sources) Start: 12-06-2023 End: 12-05-2024 Continuous Glucose Project Crew Worker (Dexcom G7 Project Crew Worker) device Indications: Type 2 diabetes mellitus with insulin therapy (HCC) , Hypoglycemia 1 each Daily 1 each 12/06/2023 12/05/2024 Active Start: 12-06-2023 End: 12-05-2024 Continuous Glucose Project Crew Worker (Dexcom G7 Project Crew Worker) device Indications: Type 2 diabetes mellitus with insulin therapy (CMS/HCC) , Hypoglycemia 1 each Daily 1 each 12/06/2023 12/05/2024 Active End: 12-06-2023 Continuous Glucose Project Crew Worker (Dexcom G7 Project Crew Worker) device 1 each Daily 12/06/2023 Discontinued (Reorder) Continuous Glucose Sensor (Dexcom G7 Sensor) misc (8 sources) Start: 12-08-2023 End: 01-07-2024 Continuous Glucose Sensor (Dexcom G7 Sensor) misc Indications: Type 2 diabetes mellitus with insulin therapy (CMS/HCC) , Hypoglycemia Apply 1 each topically Every 10 (ten) days 3 each 12/08/2023 01/07/2024 Active Start: 12-06-2023 End: 12-08-2023 Continuous Glucose Sensor (D excom G7 Sensor) misc Indications: Type 2 diabetes mellitus with insulin therapy (CMS/HCC) , Hypoglycemia 1 each Daily 3 each 11 12/06/2023 12/08/2023 Discontinued Start: 12-06-2023 End: 01-05-2024 Continuous Glucose Sensor (D excom G7 Sensor) misc Indications: Type 2 diabetes mellitus with insulin therapy (CMS/HCC) , Hypoglycemia 1 each Daily 3 each 12/06/2023 01/05/2024 Active End: 12-06-2023 Continuous Glucose Sensor (D excom G7 Sensor) misc 1 each 1 (one) time each day 12/06/2023 Discontinued (Reorder) docusate sodium 50 mg / sennosides, senior care 8.6 mg oral tablet (2 sources) Start: 07-24-2024 0.3 ml enoxaparin sodium 100 mg/ml prefilled syringe (6 sources) Low Molecular Weight Heparin Start: 07-29-2024 End: 07-29-2024 Start: 07-24-2024 End: 07-29-2024 Start: 07-19-2024 End: 07-22-2024 fluconazole 150 mg oral tablet (20 sources) Azole Antifungal Start: 12-06-2023 End: 12-06-2023 fluconazole (Diflucan) 150 MG tablet Indications: Candidiasis of breast Every 3 days for a total of 3 doses 3 tablet 12/06/2023 Active Start: 09-07-2022 End: 09-13-2022 200 mg, IntraVENous, EVERY 2 4 HOURS, 7 doses, First dose on Mon09/07/22 at 0845, Last dose on Mon09/13/22 at 0845 Antimicrobial Indications: Skin and Soft Tissue Infection Skin duration of therapy: 7 days gabapentin 300 mg oral capsu le (2 sources) Anti-epileptic Agent Start: 07-24-2024 End: 08-13-2024 glipiZIDE 10 mg oral tablet (20 sources) Sulfonylurea Start: 07-24-2024 Start: 09-12-2023 End: 12-11-2023 take 1 tablet by mouth in the morning glipiZIDE (Glucotrol) 10 MG tablet Indications: Type 2 diabetes mellitus without complication, with long-term current use of insulin Take 1 tablet (10 mg) by mouth in the morning and 1 tablet (10 mg) in the evening. Take before meals. 180 tablet 1 09/12/2023 Active 1000 ml glucose 100 mg/ml in jection (3 sources) Start: 07-22-2024 Start: 09-02-2022 125 mL, IntraV ENous, at 937.5 mL/hr, Administer over 8 Minutes, PRN, Other, Hypoglycemia, Starting on Mon09/02/22 at 0530 If BG 40 - 69 mg/dL: Administer 125 mL (12.5 g) 10% dextrose IV over 8 minutes. Check blood glucose every 15 minutes and repeat above if blood glucose 40 - 69 mg/dL. May repeat x 2. 500 ml glucose 50 mg/ml / potassium chloride 0.02 meq/ml / sodium chloride 4.5 mg/ml injection (1 source) Start: 07-29-2024 hydroCHLOROthiazide 25 mg oral tablet (20 sources) Thiazide Diuretic Start: 07-25-2023 End: 08-13-2024 take 1 tablet by mouth in the morning hydroCHLOROthiazide (HYDRODiuril) 25 MG tablet Indications: Essential hypertension Take 1 tablet (25 mg) by mouth in the morning. 90 tablet 05/15/2024 08/13/2024 Active insulin glargine 100 unt/ml injectable solution (20 sources) Insulin Analog Start: 07-30-2024 Start: 07-26-2024 End: 07-30-2024 Start: 09-12-2023 End: 12-11-2023 inject 25 [IU] by subcutaneous injection in the morning insulin glargine (Lantus) 100 UNIT/ML injection Indications: Type 2 Diabetes Mellitus Inject 25 Units under the skin in the morning and 25 Units before bedtime. 20 mL 3 09/19/2023 Active Start: 09-20-2022 End: 07-30-2024 Start: 09-17-2022 inject 20 [IU] by hall bcutaneous injection twice daily 20 Units, SubCUTAneous, 2 TIMES DAILY, First dose (after last modification) on 09/17/22 at 2100, Until Discontinued Start: 09-11-2022 End: 09-17-2022 inject 30 [IU] by subcutaneous injection twice daily 30 Units, SubCUTAneous, 2 TIMES DAILY, First dose (after last modification) on Mon09/11/22 at 2100, Until Discontinued Start: 09-10-2022 End: 09-10-2022 inject 35 [IU] by subcutaneous injection twice daily 35 Units, SubCUTAneous, 2 TIMES DAILY, First dose (after last modification) on Mon09/10/22 at 0900, Until Discontinued Start: 09-09-2022 End: 09-10-2022 inject 45 [IU] by subcutaneous injection twice daily 45 Units, SubCUTAneous, 2 TIMES DAILY, First dose (after last modification) on Mon09/09/22 at 2100, Until Discontinued Start: 09-09-2022 End: 09-11-2022 inject 45 [IU] by subcutaneous injection once daily 45 Units, SubCUTAneous, NIGHTLY, First dose (after last modification) on Mon09/10/22 at 2100, Until Discontinued Start: 09-08-2022 End: 09-09-2022 inject 30 [IU] by subcutaneous injection twice daily 30 Units, SubCUTAneous, 2 TIMES DAILY, First dose (after last modification) on Mon09/08/22 at 0900, Until Discontinued Start: 09-07-2022 End: 09-08-2022 inject 20 [IU] by subcutaneous injection twice daily 20 Units, SubCUTAneous, 2 TIMES DAILY, First dose (after last modification) on Mon09/07/22 at 0900, Until Discontinued Start: 09-06-2022 End: 09-07-2022 inject 25 [IU] by subcutaneous injection once daily 25 Units, SubCUTAneous, NIGHTLY, First dose on Mon09/06/22 at 0515, Until Discontinued insulin lispro 100 unt/ml in jectable solution (7 sources) Insulin Analog Start: 07-26-2024 Start: 07-21-2024 End: 07-24-2024 Start: 09-17-2022 0-16 Units, Hall bCUTAneous, 4 TIMES DAILY BEFORE MEALS & NIGHTLY, First dose (after last modification) on 09/17/22 at 0700, Until Discontinued High Dose Corrective Algorithm Glucose: Dose: 70-199 No Insulin 200-249 4 Units 250-299 8 Units 300-349 12 Units Over 349 16 Units and notify physician Start: 09-07-2022 End: 09-16-2022 0-16 Units, SubCUTAneous, EV KAREL 6 HOURS RESP, First dose on Mon09/07/22 at 0830, Until Discontinued High Dose Corrective Algorithm Glucose: Dose: 70-199 No Insulin 200-249 4 Units 250-299 8 Units 300-349 12 Units Over 349 16 Units and notify physician Start: 09-06-2022 End: 09-07-2022 0-8 Units, SubCUTAneous, MERARY RY 4 HOURS, First dose on Mon09/06/22 at 0515, Until Discontinued Medium Dose Corrective Algorithm Glucose: Dose: 70-199 No Insulin 200-249 2 Units 250-299 4 Units 300-349 6 Units Over 349 8 Units and notify physician lisinopril 10 mg oral tablet (20 sources) Angiotensin Converting Enzyme Inhibitor Start: 07-24-2024 Start: 08-25-2023 End: 09-05-2024 take 1 tablet by mouth in the morning lisinopril 5 MG tablet Indications: Type 2 diabetes mellitus without complication, with long-term current use of insulin (HCC) , Essential hypertension Take 1 tablet (5 mg) by mouth in the morning. 90 tablet 06/07/2024 09/05/2024 Active magnesium oxide 400 mg oral tablet (1 source) meclizine hydrochloride 25 mg oral tablet (20 sources) Antiemetic Start: 01-03-2023 take 1 tablet by mouth three times daily as needed for dizziness meclizine (Antivert) 25 MG tablet Take 25 mg by mouth 3 (three) times a day as needed for dizziness 01/03/2023 Active Start: 09-18-2022 End: 07-30-2024 Start: 09-18-2022 End: 09-18-2022 take 12.5 mg by mouth twice daily as needed for dizziness 12.5 mg, Oral, 2 TIMES DAILY PRN, Starting on 09/18/22 at 1211, Until 09/18/22 at 1407, Dizziness midodrine hydrochloride 10 m g oral tablet (3 sources) alpha-Adrenergic Agonist Start: 07-24-2024 Start: 09-04-2022 End: 09-08-2022 take 5 mg by mouth three times daily 5 mg, Oral, 3 TIMES DAILY, First dose on 09/04/22 at 1615, Until Discontinued 1 ml morphine sulfate 2 mg/ml cartridge (1 source) Opioid Agonist Start: 07-28-2024 nystatin [id number] unt/ml topical cream (6 sources) Polyene Antifungal Start: 12-06-2023 End: 12-21-2023 nystatin (Mycostatin) cream Indications: Cutaneous Candidiasis Apply 1 application topically in the morning and 1 application before bedtime. Do all this for 15 days. 60 g 1 12/06/2023 12/21/2023 Active End: 12-06-2023 nystatin (Mycostatin) cream Indications: Cutaneous Candidiasis Apply 1 application topically in the morning and 1 application before bedtime. 12/06/2023 Discontinued (Reorder) omeprazole 20 mg delayed release oral capsule (20 sources) Proton Pump Inhibitor Start: 03-04-2024 End: 09-05-2024 take 1 capsule by mouth before mealtime omeprazole (PriLOSEC) [address] capsule Indications: Gastroesophageal reflux disease without esophagitis Take 1 capsule (20 mg) by mouth in the morning. Take before meals. 90 capsule 06/07/2024 09/05/2024 Active Start: 08-22-2023 End: 11-20-2023 take 1 capsule by mouth before mealtime omeprazole (PriLOSEC) [address] capsule Indications: Gastroesophageal reflux disease without esophagitis Take 1 capsule (20 mg) by mouth in the morning. Take before meals. 90 capsule 1 08/22/2023 Active pantoprazole 40 mg delayed r elease oral tablet (2 sources) Proton Pump Inhibitor Start: 07-29-2024 Start: 09-19-2022 take 40 mg by mouth once daily before breakfast 40 mg, Oral, DAILY BEFORE BREAKFAST, First dose on Mon09/19/22 at 1200, Until Discontinued Do not crush or break. PARoxetine hydrochloride 20 mg oral tablet (20 sources) Serotonin Reuptake Inhibitor Start: 07-24-2024 Start: 09-12-2023 End: 07-04-2024 take 1 tablet by mouth in the morning PARoxetine (Paxil) 10 MG tablet Indications: Anxiety and depression (CMS/HCC) Take 1 tablet (10 mg) by mouth in the morning. 90 tablet 04/05/2024 Active Start: 09-21-2022 End: 07-30-2024 Start: 09-21-2022 take 20 mg by mouth once daily 20 mg, Oral, DAILY, First dose (after last modification) on Mon09/21/22 at 0900, Until Discontinued Start: 09-08-2022 End: 09-20-2022 10 mg, Per NG tube, DAILY, F irst dose on Mon09/08/22 at 1315, Until Discontinued End: 09-20-2022 polyethylene glycol 3350 170 00 mg powder for oral solution (3 sources) Osmotic Laxative Start: 07-24-2024 End: 08-30-2024 Start: 09-02-2022 17 g, Oral, DA JOHNNA PRN, Starting on Mon09/02/22 at 0505, Until Discontinued, Constipation First line therapy for constipation pravastatin sodium 20 mg ora l tablet (20 sources) HMG-CoA Reductase Inhibitor Start: 07-24-2024 Start: 09-12-2023 End: 12-11-2023 take 1 tablet by mouth at bedtime pravastatin (Pravachol) 20 MG tablet Indications: Mixed hyperlipidemia (CMS/HCC) Take 1 tablet (20 mg) by mouth at bedtime 90 tablet 1 09/12/2023 Active 5 ml sodium chloride 9 mg/ml injection (12 sources) Start: 07-30-2024 Start: 07-30-2024 Start: 07-19-2024 End: 07-29-2024 Start: 07-19-2024 End: 07-29-2024 Start: 09-02-2022 take 1 dose intraven ously twice daily 5-40 mL, IntraVENous, EVERY 12 HOURS SCHEDULED (2 times per day), First dose on Mon09/02/22 at 0900, Until Discontinued For Line Patency: Peripheral IV = 5 mL; Midline or Central Line = 10 mL/lumen. If following IV push medication, administer flush at same rate as the IV push. Flush volume is determined by type of infusion therapy being given. For non-viscous solutions use: Peripheral IV = 5 mL Midline or Central Line = 10 mL/lumen For viscous solutions (i.e. blood components, parenteral nutrition, contrast media, or after obtaining blood sample) use: Peripheral IV = 10 mL Midline or Central Line = 20 mL/lumen Start: 09-02-2022 take 5-40 mL intrave nously once as needed 5-40 mL, IntraVENous, PRN, Starting on Mon09/02/22 at 0505, Until Discontinued, Line Care, After every IV line use For Line Patency: Peripheral IV = 5 mL; Midline or Central Line = 10 mL/lumen. If following IV push medication, administer flush at same rate as the IV push. Flush volume is determined by type of infusion therapy being given. For non-viscous solutions use: Peripheral IV = 5 mL Midline or Central Line = 10 mL/lumen For viscous solutions (i.e. blood components, parenteral nutrition, contrast media, or after obtaining blood sample) use: Peripheral IV = 10 mL Midline or Central Line = 20 mL/lumen Start: 09-02-2022 End: 09-02-2022 take 1 mL intravenously every hour IntraVENous, at 250 mL/hr, CONTINUOUS, Starting on Mon09/02/22 at 0330 When blood glucose equals 250 mg/dL or below, DISCONTINUE saline IV fluid using Per Protocol order mode and start using the dextrose containing IV fluid order previously placed as CONTINUOUS PRN. DO NOT restart saline infusion if subsequent blood glucose returns above 250 mg/dL. Start: 09-02-2022 End: 09-02-2022 500 mL (3.11 mL/kg), IntraVE Nous, at 247.9 mL/hr, Administer over 121 Minutes, ONCE, On Mon09/02/22 at 0130, For 1 dose sulfamethoxazole 800 mg / trimethoprim 160 mg oral tablet (1 source) Dihydrofolate Reductase Inhibitor Antibacterial, Sulfonamide Antimicrobial Start: 02-22-2024 End: 03-03-2024 take 1 tablet by mouth once sulfamethoxazole-trimethoprim (Bactrim DS) 800-160 MG per tablet Indications: Cutaneous abscess of abdominal wall Take 1 tablet by mouth every 12 (twelve) hours for 10 days 20 tablet 02/22/2024 03/03/2024 Active (2 sources) Start: 07-30-2024 End: 08-28-2024 Start: 07-30-2024 End: 07-30-2024 Completed/Discontinued Medications Medication Drug Class(es) Dates Sig (Normalized) Sig (Original) 500 ml albumin human, senior care 50 mg/ml injection (2 sources) Human Serum Albumin Start: 07-20-2024 End: 07-20-2024 Start: 09-13-2022 End: 09-13-2022 25 g, IntraVENous, 2 times d aily, 2 doses, First dose on Mon09/13/22 at 1000, Last dose on Mon09/13/22 at 2100, Administer over 60 Minutes, at 100 mL/hr Infusion rate depends on indication and clinical situation. In emergencies, may administer as rapidly as necessary to improve clinical condition. After initial volume replacement: 5%: Do not exceed 2 to 4 mL/minute in patients with normal plasma volume; 5 to 10 mL/minute in patients with hypoproteinemia 25%: Do not exceed 1 mL/minute in patients with normal plasma volume; 2 to 3 mL/minute in patients with hypoproteinemia albuterol 0.833 mg/ml / ipratropium bromide 0.167 mg/ml inhalation solution (2 sources) Anticholinergic, beta2-Adrenergic Agonist Start: 09-15-2022 take 1 dose by inhalation twice daily 1 Dose, Inhalation, 2 TIMES DAILY, First dose (after last modification) on Mon09/15/22 at 2100, Until Discontinued Initiate RT Bronchodilator Protocol: Yes - Inpatient Protocol Start: 09-14-2022 End: 09-15-2022 take 1 dose by inhalation every four hours 1 Dose, Inhalation, EVERY 4 HOURS WHILE AWAKE RESP, First dose (after last modification) on Mon09/14/22 at 1600, Until Discontinued Initiate RT Bronchodilator Protocol: Yes - Inpatient Protocol amLODIPine 5 mg oral tablet (1 source) Dihydropyridine Calcium Channel Madeline Start: 09-09-2022 End: 09-16-2022 take 5 mg by mouth once daily 5 mg, Oral, DAILY, First dose on Mon09/09/22 at 0900, Until Discontinued 2 ml bumetanide 0.25 mg/ml injection (1 source) Loop Diuretic Start: 09-07-2022 End: 09-16-2022 2 mg, IntraVENous, 2 TIMES DAILY, First dose on Mon09/07/22 at 1415, Until Discontinued calcium chloride 0.0014 meq/ml / potassium chloride 0.004 meq/ml / sodium chloride 0.103 meq/ml / sodium lactate 0.028 meq/ml injectable solution (6 sources) Start: 07-28-2024 End: 07-29-2024 Start: 07-19-2024 End: 07-22-2024 Start: 09-02-2022 End: 09-02-2022 1,000 mL, IntraVENous, at 1, 000 mL/hr, Administer over 60 Minutes, ONCE, On Mon09/02/22 at 1300, For 1 dose 50 ml calcium gluconate 20 m g/ml injection (5 sources) Start: 07-25-2024 End: 07-25-2024 Start: 07-24-2024 End: 07-24-2024 Start: 07-23-2024 End: 07-23-2024 Start: 07-21-2024 End: 07-21-2024 Start: 07-20-2024 End: 07-20-2024 chlordiazePOXIDE hydrochloride 10 mg oral capsule (2 sources) Benzodiazepine Start: 09-12-2022 End: 09-15-2022 take 10 mg by mouth three times daily 10 mg, Oral, 3 TIMES DAILY, First dose (after last modification) on Mon09/13/22 at 1400, Until Discontinued chlorhexidine gluconate 1.2 mg/ml mouthwash (1 source) Start: 07-20-2024 End: 07-28-2024 chlorothiazide 500 mg injection (1 source) Thiazide Diuretic Start: 09-13-2022 End: 09-13-2022 250 mg, IntraVENous, 2 TIMES DAILY, 2 doses, First dose on Mon09/13/22 at 1100, Last dose on Mon09/13/22 at 2100 GIVE DIURIL PRIOR TO LASIX 50 ml clindamycin 18 mg/ml injection (2 sources) Lincosamide Antibacterial Start: 07-19-2024 End: 07-22-2024 1 ml dexamethasone phosphate 4 mg/ml injection (1 source) Corticosteroid Start: 09-04-2022 End: 09-08-2022 2 mg, IntraVENous, EVERY 12 HOURS, First dose on Mon09/04/22 at 0900 100 ml dexmedetomidine 0.004 mg/ml injection (2 sources) Central alpha-2 Adrenergic Agonist Start: 07-24-2024 End: 07-28-2024 Start: 09-06-2022 End: 09-15-2022 take 3.4-50.6 mL intravenously every hour 0.1-1.5 mcg/kg/hr 134.8 kg (3.37-50.55 mL/hr, rounded to 3.4-50.6 mL/hr), IntraVENous, CONTINUOUS, Starting on Mon09/06/22 at 0930, Until Mon09/15/22 at 2049 Titrate Infusion? Yes Initial Infusion Dose: 0.2 mcg/kg/hr Goal of Therapy: RASS of 0 to -1 Contact Provider if: New onset HR less than 50 bpm, New onset SBP less than 90 mmHg, Patient is receiving maximum dose and is not achieving the goal of therapy If Titrate Infusion? is No : Disregard instructions below. If Titrate infusion? is Yes : Titrate in increments of 0.2 mcg/kg/hr no more frequently than every 30 minutes to goal of therapy. If after titration rate change patient exhibits adverse hemodynamic response, next titration rate change may be adjusted by one-half of the previous rate change. Drug or medicament (substanc e) (2 sources) Start: 07-20-2024 End: 07-28-2024 Start: 09-02-2022 End: 09-07-2022 take 0.5-4 mL intravenously every hour 25-200 mcg/hr (0.5-4 mL/hr), IntraVENous, CONTINUOUS, Starting on Mon09/02/22 at 0630, Until Mon09/07/22 at 1129 Titrate Infusion? Yes Initial Infusion Dose: 50 mcg/hr Goal of Therapy is: RASS of 0 to -1 Contact Provider if: Patient is receiving the maximum dose and is not achieving the goal of therapy If Titrate Infusion? is No : Disregard instructions below. If Titrate infusion? is Yes : Titrate in increments of 25 mcg/hr no more frequently than every 30 minutes to goal of therapy. If after titration dose change patient exhibits adverse hemodynamic response, next titration dose change may be adjusted by one-half of the previous dose change. If patient fails sedation interruption, resume infusion at 50% of previous dose. famotidine (PEPCID) 20 MG/2ML 20 mg in sodium chloride (PF) 0.9 % 10 mL injection (1 source) Start: 07-20-2024 End: 07-24-2024 2 ml fentaNYL 0.05 mg/ml injection (1 source) Opioid Agonist Start: 07-28-2024 End: 07-29-2024 4 ml furosemide 10 mg/ml injection (3 sources) Loop Diuretic Start: 09-04-2022 End: 09-03-2022 40 mg, IntraVENous, ONCE, 1 dose, On 09/04/22 at 0000 Start: 09-03-2022 End: 09-03-2022 40 mg, IntraVENous, ONCE, 1 dose, On 09/03/22 at 1845 glucagon (rdna) 1 mg injection (1 source) Antihypoglycemic Agent Start: 09-02-2022 inject 1 mg by subcutaneous injection every hour as needed 1 mg, SubCUTAneous, PRN, Starting on Mon09/02/22 at 0215, Until Discontinued, Low blood sugar, Blood glucose LESS THAN 70 mg/dL and patient NOT ALERT or NPO and does not have IV access. After administration, attempt intravenous access and start dextrose 10% at 100 mL/hr. Repeat blood glucose in 15 minutes x 2 and notify provider. 250 ml glucose 50 mg/ml / sodium chloride 4.5 mg/ml injection (2 sources) Start: 09-02-2022 End: 09-06-2022 IntraVENous, at 75 mL/hr, CONTINUOUS, Starting on Mon09/03/22 at 1145 1 ml heparin sodium, porcine 5000 unt/ml prefilled syringe (2 sources) Unfractionated Heparin, Anti-coagulant Start: 07-22-2024 End: 07-24-2024 Start: 09-02-2022 inject 1 dose by sub cutaneous injection three times daily 5,000 Units, SubCUTAneous, EVERY 8 HOURS SCHEDULED (3 times per day), First dose on Mon09/02/22 at 0600, Until Discontinued Give once cleared from surgery for AC hydrALAZINE hydrochloride 25 mg oral tablet (1 source) Arteriolar Vasodilator Start: 09-09-2022 take 1 dose by mouth three times daily 25 mg, Oral, EVERY 8 HOURS SCHEDULED (3 times per day), First dose on Mon09/09/22 at 0800, Until Discontinued hydrocortisone 100 mg injection (2 sources) Corticosteroid Start: 09-03-2022 End: 09-04-2022 50 mg, IntraVENous, EVERY 6 HOURS, First dose (after last modification) on Mon09/03/22 at 1300, Until Discontinued Start: 09-02-2022 End: 09-03-2022 100 mg, IntraVENous, EVERY 6 HOURS, First dose on Mon09/02/22 at 1300, Until Discontinued sodium hypochlorite 1.25 mg/ ml topical spray (2 sources) Start: 07-23-2024 End: 07-29-2024 Start: 07-19-2024 End: 07-20-2024 ibuprofen 600 mg oral tablet (3 sources) Nonsteroidal Anti-inflammatory Drug Start: 07-28-2024 End: 07-30-2024 insulin isophane, human 100 unt/ml injectable suspension (2 sources) Start: 09-17-2022 End: 09-20-2022 ipratropium bromide 0.2 mg/ml inhalation solution (1 source) Anticholinergic Start: 09-02-2022 End: 09-14-2022 0.5 mg, Nebulization, EVERY 4 HOURS WHILE AWAKE RESP, First dose on Mon09/02/22 at 0800, Until Discontinued Initiate RT Bronchodilator Protocol: Yes - Inpatient Protocol 1 ml ketorolac tromethamine 15 mg/ml cartridge (1 source) Nonsteroidal Anti-inflammatory Drug, Cyclooxygenase Inhibitor Start: 07-28-2024 End: 07-28-2024 lactobacillus rhamnosus gg [id number] unt oral capsule (3 sources) Start: 09-19-2022 End: 07-30-2024 Start: 09-19-2022 take 1 capsule by [facility] twice daily at mealtime 1 capsule, Oral, 2 TIMES DAILY WITH MEAL S, First dose on Mon09/19/22 at 1200, Until Discontinued Do not add to warm or hot foods or beverages. Caps may be opened & mixed in a cool beverage or sprinkled onto baby food or applesauce. Mix entire packet content into cool food or drink until dissolved. lansoprazole 30 mg disintegrating oral tablet (1 source) Proton Pump Inhibitor Start: 09-08-2022 End: 09-15-2022 take 1 tablet by mouth once before breakfast 30 mg, Per G Tube, DAILY BEFORE BREAKFAST, First dose on Mon09/08/22 at 0700, Until Discontinued Do not crush or break. (Dissolve tablet in 10mL of water and draw up entire dose in an oral syringe for administration via feeding tube.) IV to PO change per P[employer] policy 300 ml linezolid 2 mg/ml injection (1 source) Oxazolidinone Antibacterial Start: 09-02-2022 End: 09-07-2022 600 mg, IntraVENous, at 300 mL/hr, Administer over 60 Minutes, EVERY 12 HOURS, First dose on Mon09/02/22 at 0130 Avoid aged, smoked, or fermented foods including cheese, sour cream, soy sauce, sauerkraut, yogurt, sausage, pepperoni, salami, and dried fruit. Limit caffeine. loperamide hydrochloride 2 mg oral capsule (1 source) Opioid Agonist End: 07-30-2024 50 ml magnesium sulfate 40 mg/ml injection (6 sources) Start: 07-26-2024 End: 07-26-2024 Start: 07-24-2024 End: 07-24-2024 Start: 07-23-2024 End: 07-23-2024 Start: 07-21-2024 End: 07-21-2024 Start: 09-18-2022 End: 09-18-2022 2,000 mg, IntraVENous, at 25 mL/hr, Administer over 2 Hours, ONCE, On Mon09/18/22 at 1000, For 1 dose Recommended infusion rate not to exceed 1,000 mg (milligrams) per hour. Start: 09-02-2022 End: 09-07-2022 1,000 mg, IntraVENous, at 10 0 mL/hr, Administer over 1 Hours, PRN, Other, Magnesium IV Replacement, Starting on Mon09/02/22 at 0530 Mg Level Mg Replacement Action 1.4 to 1.6 1 gram IVPB x 2 doses (2 grams total) 1.0 to 1.3 1 gram IVPB x 4 doses (4 grams total) Below 1.0 CALL PHYSICIAN and 1 gram IVPB x 4 doses (4 grams total) Infuse at 1 gram/hr. Repeat Mg level next AM. Not for use in patients with CrCl less than 30 mL/min. 24 hr metFORMIN hydrochlorid e 500 mg extended release oral tablet (20 sources) Biguanide Start: 07-24-2024 End: 07-25-2024 Start: 07-25-2023 End: 09-05-2024 take 1 tablet by mouth in the morning metFORMIN (Glucophage) 500 MG tablet Indications: Type 2 diabetes mellitus without complication, with long-term current use of insulin (HCC) Take 1 tablet (500 mg) by mouth in the morning and 1 tablet (500 mg) in the evening. Take with meals. 180 tablet 06/07/2024 09/05/2024 Active End: 07-30-2024 100 ml metroNIDAZOLE 5 mg/ml injection (1 source) Nitroimidazole Antimicrobial Start: 07-19-2024 End: 07-26-2024 miconazole nitrate 0.02 mg/m g topical powder (6 sources) Azole Antifungal Start: 09-17-2022 End: 07-30-2024 Start: 09-17-2022 End: 07-30-2024 Start: 09-16-2022 apply 1 dose topically twice d aily Topical, 2 TIMES DAILY, First dose on Mon09/16/22 at 2100 Apply to affected area . Start: 09-16-2022 End: 09-19-2022 apply 1 dose topically twice daily Topical, 2 TIMES DA JOHNNA, First dose on Mon09/16/22 at 2100 Apply to affected area. 2 ml midazolam 1 mg/ml injection (4 sources) Benzodiazepine Start: 09-07-2022 End: 09-08-2022 2 mg, IntraVENous, EVERY 4 HOURS PRN, Starting on Mon09/07/22 at 1238, Until Mon09/08/22 at 0836, Anxiety, Sedation Start: 09-02-2022 End: 09-02-2022 2 mg, IntraVENous, ONCE, 1 d ose, On Mon09/02/22 at 1515 Start: 09-02-2022 End: 09-02-2022 2 mg, IntraVENous, ONCE, 1 d ose, On Mon09/02/22 at 0130 Start: 09-02-2022 End: 09-02-2022 1 dose, Starting on 09/02 at 0049, Until Mon09/02/22 at 1259 ALEX ROONEY: cabinet override ALEX ROONEY: cabinet override 24 hr nicotine 0.875 mg/hr transdermal system (1 source) Cholinergic Nicotinic Agonist End: 07-30-2024 2 ml ondansetron 2 mg/ml injection (4 sources) Serotonin-3 Receptor Antagonist Start: 09-15-2022 4 mg, IntraVENous, EVERY 6 HOURS PRN, Starting on Mon09/15/22 at 1329, Until Discontinued, Nausea, Vomiting Start: 09-14-2022 End: 09-14-2022 4 mg, IntraVENous, ONCE, 1 d ose, On Mon09/14/22 at 2030 Start: 09-14-2022 End: 09-14-2022 1 dose, Starting on Mon at 1924, Until Mon09/15/22 at 0729 Belle Fischer: cabinet override Belle Fischer: cabinet override End: 07-30-2024 oxyCODONE hydrochloride 5 mg oral tablet (8 sources) Opioid Agonist Start: 07-24-2024 End: 08-02-2024 Start: 09-15-2022 take 10 mg by mouth every six hours as needed 10 mg, Oral, EVERY 6 HOURS PRN, Starting on Hayley 09/15/22 at 2015, Until Discontinued, Pain Moderate (4-6), Pain Severe (7-10) Start: 09-12-2022 End: 09-15-2022 take 15 mg by mouth every six hours 15 mg, Oral, EVERY 6 HOURS, First dose (after last modification) on Mon09/13/22 at 1745, Until Discontinued Start: 09-09-2022 End: 09-12-2022 take 5 mg by mouth every six hours 5 mg, Oral, EVERY 6 HOURS, First dose on Mon09/09/22 at 1145, Until Discontinued potassium bicarbonate 20 meq effervescent oral tablet (8 sources) Start: 07-23-2024 End: 07-23-2024 Start: 09-17-2022 End: 09-18-2022 40 mEq, Oral, 2 TIMES DAILY, 2 doses, First dose on 09/18/22 at 0900, Last dose on Mon09/18/22 at 2100 Do not chew or crush. Dissolve flavored tablets completely in 3 to 4 ounces of cold water; unflavored tablets may be dissolved in 3 to 4 ounces of cold juice. Patient to sip slowly over a 5 to 10 minute period. May further dilute if GI adverse effects occur. Start: 09-15-2022 End: 09-15-2022 40 mEq, Oral, ONCE, 1 dose, On Mon09/15/22 at 0800 Do not chew or crush. Dissolve flavored tablets completely in 3 to 4 ounces of cold water; unflavored tablets may be dissolved in 3 to 4 ounces of cold juice. Patient to sip slowly over a 5 to 10 minute period. May further dilute if GI adverse effects occur. Start: 09-10-2022 End: 09-11-2022 40 mEq, Oral, ONCE, 1 dose, On 09/11/22 at 0745 Do not chew or crush. Dissolve flavored tablets completely in 3 to 4 ounces of cold water; unflavored tablets may be dissolved in 3 to 4 ounces of cold juice. Patient to sip slowly over a 5 to 10 minute period. May further dilute if GI adverse effects occur. Start: 09-02-2022 End: 09-02-2022 40 mEq, Per NG tube, ONCE, 1 dose, On Mon09/02/22 at 0600 Do not chew or crush. Dissolve flavored tablets completely in 3 to 4 ounces of cold water; unflavored tablets may be dissolved in 3 to 4 ounces of cold juice. Patient to sip slowly over a 5 to 10 minute period. May further dilute if GI adverse effects occur. 100 ml potassium chloride 0. 1 meq/ml injection (7 sources) Start: 07-24-2024 End: 07-24-2024 Start: 09-19-2022 End: 07-30-2024 Start: 09-19-2022 40 mEq, Oral, 2 times daily, 2 doses, First dose on Mon09/19/22 at 0900, Last dose on Mon09/19/22 at 2100 Do not crush, chew, or suck on tablet. Tablet may also be broken in half and each half swallowed separately. Start: 09-16-2022 20 mEq, Oral, ONCE, 1 dose, On Mon09/16/22 at 0530 Do not crush, chew, or suck on tablet. Tablet may also be broken in half and each half swallowed separately. Start: 09-02-2022 End: 09-02-2022 20 mEq, IntraVENous, EVERY 2 HOURS, 2 doses, First dose on Mon09/02/22 at 0600, Last dose on Mon09/02/22 at 0800, at 50 mL/hr For Central Line administration only. Do not administer via peripheral lines. Patient must be on threat monitoring analyst if rate is greater than 10 mEq/hour. Start: 09-02-2022 End: 09-05-2022 10 mEq, IntraVENous, PRN, St arting on Mon09/02/22 at 0530, Until Mon09/05/22 at 2358, at 100 mL/hr, Potassium IV Replacement Above 5.2 No dose 4.3 to 5.2 10 mEq IVPB x 2 doses (20 mEq total) 3.4 to 4.2 10 mEq IVPB x 3 doses (30 mEq total) Below 3.4 10 mEq IVPB x 4 doses (40 mEq total) Infuse at 10 mEq/hr. Can be administered either through peripheral IV or central IV. prochlorperazine 10 mg oral tablet (1 source) Phenothiazine End: 07-30-2024 100 ml propofol 10 mg/ml injection (2 sources) General Anesthetic Start: 09-08-2022 End: 09-14-2022 5-50 mcg/kg/min 134.8 kg (4.044-40.44 mL/hr, rounded to 4-40.4 mL/hr), IntraVENous, CONTINUOUS, Starting on Hayley 09/08/22 at 2100, Until Mon09/14/22 at 204 Titrate Infusion? Yes Initial Infusion Dose: 10 mcg/kg/min Goal of Therapy: RASS of 0 to -1 Contact Provider if: New onset HR less than 50 bpm, New onset SBP less than 90 mmHg, Patient is receiving maximum dose and is not achieving the goal of therapy, Triglycerides greater than 500 mg/dL If Titrate Infusion? is No : Disregard instructions below. If Titrate infusion? is Yes : Titrate in increments of 5 mcg/kg/min no more frequently than every 5 minutes to goal of therapy. If after titration rate change patient exhibits adverse hemodynamic response, next titration rate change may be adjusted by one-half of the previous rate change. If patient fails sedation interruption, resume propofol infusion at 50% of previous rate. Do not administer through the same I.V. catheter with blood or plasma. Tubing and any unused portions of propofol vials should be discarded after 12 hours. Start: 09-02-2022 End: 09-04-2022 5-50 mcg/kg/min 134.8 kg (4. 044-40.44 mL/hr, rounded to 4-40.4 mL/hr), IntraVENous, CONTINUOUS, Starting on Mon09/02/22 at 0630, Until Mon09/04/22 at 1116 Titrate Infusion? Yes Initial Infusion Dose: 20 mcg/kg/min Goal of Therapy: RASS of 0 to -1 Contact Provider if: New onset HR less than 50 bpm, New onset SBP less than 90 mmHg, Patient is receiving maximum dose and is not achieving the goal of therapy, Triglycerides greater than 500 mg/dL If Titrate Infusion? is No : Disregard instructions below. If Titrate infusion? is Yes : Titrate in increments of 5 mcg/kg/min no more frequently than every 5 minutes to goal of therapy. If after titration rate change patient exhibits adverse hemodynamic response, next titration rate change may be adjusted by one-half of the previous rate change. If patient fails sedation interruption, resume propofol infusion at 50% of previous rate. Do not administer through the same I.V. catheter with blood or plasma. Tubing and any unused portions of propofol vials should be discarded after 12 hours. psyllium 3400 mg powder for oral suspension (3 sources) Start: 09-19-2022 End: 07-30-2024 Start: 09-19-2022 1 packet, Oral , DAILY, First dose on Mon09/19/22 at 1200, Until Discontinued sennosides, senior care 8.6 mg oral tablet (1 source) End: 07-30-2024 simethicone 80 mg chewable t ablet (1 source) End: 07-30-2024 10 ml sodium bicarbonate 84 mg/ml injection (7 sources) Start: 07-20-2024 End: 07-20-2024 Start: 07-20-2024 End: 07-20-2024 Start: 09-02-2022 End: 09-02-2022 50 mEq, IntraVENous, ONCE, 1 dose, On Mon09/02/22 at 0230 Start: 09-02-2022 End: 09-02-2022 1 dose, Starting on 09/02 at 0202, Until Mon09/02/22 at 1414 ALEX ROONEY: cabinet override ALEX ROONEY: cabinet override spironolactone 25 mg oral tablet (3 sources) Aldosterone Antagonist Start: 09-15-2022 End: 07-30-2024 water 1000 mg/ml injectable solution (1 source) Start: 09-13-2022 End: 09-13-2022 1 dose, Starting on Mon09/13/22 at 1223, Until Mon09/14/22 at 0029 Oswaldo Conklin: cabinet override Oswaldo Conklin: cabinet override (20 sources) Start: 07-29-2024 End: 07-29-2024 Start: 07-28-2024 Start: 07-28-2024 End: 07-28-2024 Start: 07-28-2024 End: 07-28-2024 Start: 07-27-2024 End: 07-27-2024 Start: 07-26-2024 End: 07-26-2024 Start: 07-24-2024 End: 07-24-2024 Start: 07-24-2024 End: 07-26-2024 Start: 07-24-2024 End: 07-29-2024 Start: 07-23-2024 End: 07-23-2024 Start: 07-23-2024 End: 07-28-2024 Start: 07-22-2024 End: 07-22-2024 Start: 07-21-2024 End: 07-22-2024 Start: 07-20-2024 End: 07-23-2024 Start: 07-20-2024 End: 07-22-2024 Start: 07-19-2024 [Order 1 Start ] Name: ondansetron (ZOFRAN-ODT) disintegrating tablet 4 mg Signed Summary: 4 mg, Oral, EVERY 8 HOURS PRN, Starting on Mon07/19/24 at 1914, Until Discontinued, Nausea, Vomiting [Order 1 End] [Order 2 Start] Name: ondansetron (ZOFRAN) injection 4 mg Signed Summary: 4 mg, IntraVENous, EVERY 6 HOURS PRN, Starting on Mon07/19/24 at 1914, Until Discontinued, Nausea, Vomiting, Administer if oral route cannot be used. [Order 2 End] Start: 07-19-2024 End: 07-19-2024 Start: 07-19-2024 End: 07-19-2024 Start: 09-15-2022 End: 09-17-2022 IntraVENous, at 100 mL/hr, CONTINUOUS, Starting on Mon09/15/22 at 1130 Start: 09-11-2022 End: 09-17-2022 1,000 mg, IntraVENous, at 33 .3 mL/hr, Administer over 180 Minutes, EVERY 12 HOURS, First dose (after last modification) on Mon09/11/22 at 2215, For 11 doses Start: 09-05-2022 End: 09-07-2022 take 1-50 [IU] intravenously every hour, then take 1-50 mL intravenously every hour 1-50 Units/hr (1-50 mL/hr), IntraVENous, CONTINUOUS, Starting on Mon09/05/22 at 1215, Until Mon09/07/22 at 0803 Low target: 140 High target: 180 Begin infusion rate by the following formula: (BG - 60) x 0.03 = insulin units per hour. Adjust current multiplier(0.03) in drip formula by doing the following steps: * Whenever BG is greater than 180 increase multiplier by 0.01 * Whenever BG is less than 140 decrease multiplier by 0.01 * Whenever BG is between 140 - 180 no change in multiplier Recalculate insulin dose with every BG drawn, even if the multiplier does not change. Hold insulin infusion if BS< 80 mg/dl, if BS < 70 mg/dl follow hypoglycemia treatment orders, continue to check BS as ordered, and restart insulin infusion if and when BS increases back into goal range decreasing last multiplier by 0.01 Start: 09-04-2022 End: 09-07-2022 5-40 mg/hr (1-8 mL/hr), IntraVENous, CONTINUOUS, Starting on Mon09/04/22 at 1630, Until Mon09/07/22 at 1351 Titrate by 5 mg/h every 4-6 hours to keep urine output around 100-1 25 mill per hour Max dose: 40 mg per hour Start: 09-02-2022 End: 09-03-2022 IntraVENous, at 150 mL/hr, CONTINUOUS, Starting on Mon09/02/22 at 1330 Start: 09-02-2022 End: 09-07-2022 40 mg, IntraVENous, DAILY, F irst dose on Mon09/02/22 at 0900 Reconstitute with 10 mL 0.9 % sodium chloride and administer over at least 2 minutes. Start: 09-02-2022 End: 09-07-2022 0.04 Units/min (12 mL/hr), IntraVENous, CONTINUOUS, Starting on Mon09/02/22 at 0615, Until Mon09/07/22 at 0803 Titrate Infusion? Yes Initial Infusion Dose: 0.03 units/min Goal of Therapy is: MAP greater than 65 mmHg Contact Provider if: Patient is receiving the maximum dose and is not achieving the goal of therapy If Titrate Infusion? is No : Disregard instructions below. If Titrate infusion? is Yes : Increase dose by 0.01 units/min no faster than every 10 minutes to goal. Decrease dose by 0.01 units/min no faster than every 30 minutes while maintaining goal parameter. Start: 09-02-2022 End: 09-02-2022 IntraVENous, at 125 mL/hr, CONTINUOUS, Starting on Mon09/02/22 at 0245 Start: 09-02-2022 End: 09-05-2022 0.01-0.5 Units/kg/hr 161 kg (1.61-80.5 mL/hr, rounded to 1.6-80.5 mL/hr), IntraVENous, CONTINUOUS, Starting on Mon09/02/22 at 0230, Until Mon09/05/22 at 1156 <<<Starting dose: 0.1 Units/kg/hr>>> If potassium LESS than 3.3, replace potassium prior to beginning insulin infusion Initial DKA Insulin Infusion Protocol: - If any blood glucose (BG) increases, then increase infusion by 50% of current rate - If BG decrease is less than 50 mg/dL per hour, increase infusion by 50% of current rate - If BG decrease is between 50-75 mg/dL per hour, then make no change to infusion rate - If BG decrease is between 76-100 mg/dL per hour, decrease infusion by 50% of current rate - If BG decrease is greater than 100 mg/dL per hour, decrease infusion by 50%, repeat BG, and call provider When BG < 250 mg/dL: - DISCONTINUE saline IV fluid using Per Protocol order mode and start using the dextrose containing IV fluid order previously placed as CONTINUOUS PRN. DO NOT restart saline infusion if subsequent BG returns above 250 mg/dL. <<<Switch dose to 0.05 Units/kg/hr>>> Low BG target: 150 mg/dL and High BG target: 200 mg/dL - If BG is greater than 200 mg/dL, increase rate by 50% - If BG is less than 150 md/dL, decrease rate by 50% - If BG is between 150 - 200 mg/dL, make no change in rate - Recalculate insulin dose with every BG drawn - Hold insulin infusion if BG less than 80 mg/dL, if BG less than 70 mg/dL follow hypoglycemia treatment orders, continue to check BG as ordered, and restart insulin infusion if and when BG increases back into goal range Notify provider if: * BG is less than 70 mg/dL * If BG less than 200 mg/dL AND when both of the following criteria are met on two consecutive BMPs: Anion gap normalized (less than or equal to 12), serum bicarb (HCO3) greater than 15, call provider for conversion from insulin infusion to subcutaneous insulin and discontinue insulin infusion 2 hours after the first subcutaneous injection of insulin. Start: 09-02-2022 End: 09-11-2022 1,000 mg, IntraVENous, at 33 .3 mL/hr, Administer over 180 Minutes, EVERY 8 HOURS, First dose on Mon09/02/22 at 0230 Start: 09-02-2022 [Order 1 Start ] Name: dextrose bolus 10% 125 mL Signed Summary: 125 mL, IntraVENous, at 937.5 mL/hr, Administer over 8 Minutes, PRN, Other, Blood glucose 40 - 69 mg/dL and patient NOT ALERT or NPO, Starting on Mon09/02/22 at 0215 Repeat blood glucose in 15 minutes. If blood glucose remains LESS THAN 70 mg/dL, repeat treatment and recheck blood glucose in 15 minutes x 2. If using glycemic management system, dose as instructed per system. If blood glucose remains LESS THAN 70 mg/dL after 2 intravenous boluses start dextrose 10% at 100 mL/hour and notify provider. [Order 1 End] [Order 2 Start] Name: dextrose bolus 10% 250 mL Signed Summary: 250 mL, IntraVENous, at 937.5 mL/hr, Administer over 16 Minutes, PRN, Other, Blood glucose LESS THAN 40 mg/dL and patient NOT ALERT or NPO, Starting on Mon09/02/22 at 0215 Repeat blood glucose in 15 minutes. If blood glucose remains LESS THAN 70 mg/dL, repeat treatment and recheck blood glucose in 15 minutes x 2. If using glycemic management system, dose as instructed per system. If blood glucose remains LESS THAN 70 mg/dL after 2 intravenous boluses start dextrose 10% at 100 mL/hour and notify provider. [Order 2 End] (1 source) Start: 09-02-2022 16 g (4 tablet ), Oral, PRN, Starting on Mon09/02/22 at 0215, Until Discontinued, Low blood sugar If blood glucose is LESS THAN 70 mg/dL and patient is alert and tolerating oral. Give 4 tablets (16g) Repeat blood glucose in 15 minutes. If blood glucose is LESS THAN 70 mg/dL, repeat treatment and recheck blood glucose in 15 minutes x 2. If blood glucose remains LESS THAN 70 mg/dL, notify provider. (1 source) Start: 09-02-2022 End: 09-06-2022 1-10 mg/hr (1-10 mL/hr), Int raVENous, CONTINUOUS, Starting on Mon09/02/22 at 1300, Until Mon09/06/22 at 0902 Titrate Infusion? Yes Initial Infusion Dose: 2 mg/hr Goal of Therapy is: RASS of 0 to -1 Contact Provider if: New onset SBP less than 90 mmHg, Patient is receiving the maximum dose and is not achieving the goal of therapy If Titrate Infusion? is No : Disregard instructions below. If Titrate infusion? is Yes : Titrate in increments of 1 mg/hr no more frequently than every 30 minutes to goal of therapy. If patient fails sedation interruption, resume infusion at 50% of previous dose. (4 sources) Start: 07-28-2024 End: 07-29-2024 Start: 07-24-2024 End: 07-28-2024 Start: 07-19-2024 End: 07-23-2024 Start: 09-02-2022 End: 09-07-2022 1-100 mcg/min (0.9375-93.75 mL/hr, rounded to 0.9-93.8 mL/hr), IntraVENous, CONTINUOUS, Starting on Mon09/02/22 at 0600, Until Mon09/07/22 at 0803 Titrate Infusion? Yes Initial Infusion Dose: 5 mcg/min Goal of Therapy is: MAP greater than 65 mmHg Contact Provider if: Patient is receiving the maximum dose and is not achieving the goal of therapy Infuse via central line. If Titrate Infusion? is No : Disregard instructions below. If Titrate infusion? is Yes : If rate LESS than 10 mcg/min: Titrate by 2 mcg/min no faster than every 5 minutes to goal. If rate GREATER than or equal to 10 mcg/min: Titrate by 5 mcg/min no faster than every 5 minutes to goal. When approaching therapeutic goal or weaning off, smaller titration increments of 1 mcg/min no faster than every 5 minutes may be used to maintain goal. (2 sources) Start: 07-25-2024 End: 07-25-2024 Start: 07-21-2024 End: 07-21-2024 (1 source) Start: 07-24-2024 End: 07-24-2024 (3 sources) Start: 07-21-2024 End: 07-23-2024 Start: 07-21-2024 End: 07-21-2024 Start: 07-20-2024 End: 07-21-2024 Problems Active Problems Problem Classification Problem Date Documented Da te Episodic/Chronic Anxiety disorders (20 sources) Mixed anxiety and depressive disorder; Translations: [Anxiety disorder, unspecified] Onset: 03-20-2023 03-20-2023 Chronic Asthma (20 sources) Unspecified asthma, uncomplicated; Translations: [Exacerbation of moderate persistent asthma] Onset: 07-06-2021 Resolved: 12-06-2023 11-17-2023 Chronic Chronic kidney disease (20 sources) Chronic kidney disease stage 3B ; Translations: [Chronic kidney disease, stage 3b (HCC)] Onset: 11-27-2023 11-27-2023 Chronic Chronic obstructive pulmonary disease and bronchiectasis (20 sources) Chronic obstructive lung disease; Translations: [Chronic obstructive pulmonary disease, unspecified] Onset: 03-20-2023 03-20-2023 Chronic Chronic ulcer of skin (2 sources) Pressure ulcer of sacral region, stage 4; Translations: [Pressure ulcer of sacral region, stage 4] Onset: 08-25-2024 Chronic Congestive heart failure; nonhypertensive (2 sources) Congestive heart failure; Translations: [Heart failure, unspecified] Onset: 07-19-2024 07-20-2024 Chronic Deficiency and other anemia (2 sources) Iron deficiency anemia secondary to blood loss (chronic); Translations: [Iron deficiency anemia secondary to blood loss (chronic)] Onset: 08-25-2024 Chronic Diabetes mellitus with complications (20 sources) Diabetic ketoacidosis without coma; Translations: [Other specified diabetes mellitus with ketoacidosis without coma] Onset: 09-05-2022 Resolved: 03-20-2023 Chronic Diabetes mellitus without complication (20 sources) Type 2 diabetes mellitus without complications; Translations: [Type 2 diabetes mellitus] Onset: 07-06-2021 Chronic Diseases of white blood cells (5 sources) Band neutrophil count above reference range; Translations: [Bandemia] Onset: 09-10-2022 Chronic Disorders of lipid metabolism (20 sources) Hyperlipidemia; Translations: [Hyperlipidemia, unspecified] Onset: 03-20-2023 03-20-2023 Chronic Esophageal disorders (20 sources) Gastro-esophageal reflux disease without esophagitis; Translations: [Gastroesophageal reflux disease without esophagitis] Onset: 07-06-2021 02-26-2023 Chronic Essential hypertension (20 sources) Essential (primary) hypertension; Translations: [Essential hypertension] Onset: 07-06-2021 03-20-2023 Chronic Genitourinary symptoms and ill-defined conditions (2 sources) Retention of urine, unspecified; Translations: [Retention of urine, unspecified] Onset: 08-25-2024 Episodic Heart valve disorders (1 source) Heart murmur; Translations: [Cardiac murmur, unspecified] Episodic Immunity disorders (19 sources) Secondary immune deficiency disorder; Translations: [Immunodeficiency due to conditions classified elsewhere] Onset: 11-27-2023 11-27-2023 Chronic Infective arthritis and osteomyelitis (except that caused by tuberculosis or sexually transmitted disease) (4 sources) Osteomyelitis of sacrum; Translations: [Osteomyelitis of vertebra, sacral and sacrococcygeal region] Onset: 07-28-2024 07-28-2024 Chronic Other aftercare (3 sources) 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; Translations: [VERIFYING MACHINE OPERATOR CURRENT USE OF INSULIN] Onset: 05-08-2022 Episodic Other connective tissue disease (4 sources) Other specified soft tissue disorders; Translations: [OTHER SPEC SOFT TISSUE DISORDERS] Onset: 07-02-2021 Episodic Other connective tissue disease (5 sources) Necrotizing fasciitis; Translations: [Necrotizing fasciitis] Onset: 09-02-2022 Episodic Other connective tissue disease (3 sources) Necrotizing soft tissue infection; Translations: [Other specified soft tissue disorders] Onset: 07-19-2024 07-20-2024 Episodic Other connective tissue disease (3 sources) Necrotizing fasciitis; Translations: [Necrotizing fasciitis (HCC)] Onset: 09-02-2022 Episodic Other endocrine disorders (20 sources) Hypoglycemia; Translations: [Hypoglycemia, unspecified] Onset: 12-06-2023 12-06-2023 Chronic Other gastrointestinal disorders (2 sources) Encounter for attention to gastrostomy; Translations: [Encounter for attention to gastrostomy] Onset: 08-25-2024 Chronic Other gastrointestinal disorders (2 sources) Dysphagia, oropharyngeal phase; Translations: [Dysphagia, oropharyngeal phase] Onset: 08-25-2024 Episodic Other nervous system disorders (4 sources) Metabolic encephalopathy; Translations: [Metabolic encephalopathy] Onset: 09-11-2022 Chronic Other nervous system disorders (1 source) Metabolic encephalopathy; Translations: [Metabolic encephalopathy] Onset: 08-25-2024 Chronic Other nutritional; endocrine; and metabolic disorders (1 source) Morbid (severe) obesity due to excess calories; Translations: [MORBID SEVERE OBES D/T EXCESS JULIENNE] Onset: 07-06-2021 Chronic Other nutritional; endocrine; and metabolic disorders (1 source) Body mass index (BMI) 60.0-69.9, adult; Translations: [BODY MASS INDEX BMI 60.0-69.9 ADULT] Onset: 07-06-2021 Chronic Other nutritional; endocrine; and metabolic disorders (3 sources) Morbid obesity; Translations: [Morbid (severe) obesity due to excess calories] Onset: 09-12-2022 Chronic Other nutritional; endocrine; and metabolic disorders (20 sources) Hypomagnesemia; Translations: [Hypomagnesemia] Onset: 11-08-2022 03-20-2023 Chronic Other nutritional; endocrine; and metabolic disorders (20 sources) Obesity caused by energy imbalance; Translations: [Morbid (severe) obesity due to excess calories] Onset: 11-27-2023 11-27-2023 Chronic Other nutritional; endocrine; and metabolic disorders (20 sources) Body mass index 40+ - severely obese; Translations: [Body mass index (BMI) 50.0-59.9, adult] Onset: 11-27-2023 11-27-2023 Chronic Other screening for suspected conditions (not mental disorders or infectious disease) (20 sources) Patient encounter status; Translations: [Encounter for screening for malignant neoplasm of colon] Onset: 03-20-2023 03-20-2023 Episodic Residual codes; unclassified (1 source) Sleep apnea, unspecified; Translations: [SLEEP APNEA UNSPECIFIED] Onset: 07-06-2021 Chronic Residual codes; unclassified (3 sources) Obstructive sleep apnea syndrome; Translations: [Obstructive sleep apnea (adult) (pediatric)] Onset: 09-05-2022 Chronic Residual codes; unclassified (2 sources) Obstructive sleep apnea (adult) (pediatric); Translations: [Obstructive sleep apnea (adult) (pediatric)] Onset: 08-25-2024 Chronic Respiratory failure; insufficiency; arrest (adult) (3 sources) Dependence on ventilator; Translations: [Dependence on respirator [ventilator] status] Onset: 09-12-2022 Chronic Respiratory failure; insufficiency; arrest (adult) (20 sources) Acute respiratory failure; Translations: [Acute respiratory failure with hypoxia] Onset: 09-05-2022 Episodic Substance-related disorders (1 source) Nicotine dependence, cigarettes, uncomplicated; Translations: [NICOTINE DEPEND CIGARETTES UNCOMP] Onset: 07-06-2021 Chronic Unclassified (1 source) Deborah disease of vagina and vulva; Translations: [Deborah disease of vagina and vulva] Onset: 10-25-2022 Past or Other Problems Problem Classification Problem Date Documented Da te Episodic/Chronic Abdominal pain (4 sources) Upper abdominal pain; Translations: [Upper abdominal pain, unspecified] Onset: 09-20-2022 Episodic Acute and unspecified renal failure (3 sources) Acute injury of kidney; Translations: [Acute kidney failure, unspecified] Onset: 09-03-2022 Episodic E Codes: Natural/environment (1 source) Bitten by dog, initial encounter; Translations: [BITTEN BY DOG INITIAL ENCOUNTER] Onset: 07-06-2021 Episodic Fluid and electrolyte disorders (9 sources) Metabolic acidosis; Translations: [Metabolic acidosis] Onset: 09-02-2022 Episodic Immunizations and screening for infectious disease (20 sources) Needs influenza immunization; Translations: [Encounter for immunization] Onset: 12-06-2023 12-06-2023 Episodic Inflammatory conditions of male genital organs (20 sources) Deborah's gangrene; 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] Onset: 09-10-2022 Episodic Mood disorders (20 sources) Mood disorders Onset: 07-17-2023 07-17-2023 Mycoses (20 sources) Candidiasis; Translations: [Other sites of candidiasis] Onset: 12-06-2023 12-06-2023 Episodic Open wounds of extremities (1 source) Open bite of left hand, initial encounter; Translations: [OPEN BITE LEFT HAND INITIAL ENC] Onset: 07-06-2021 Episodic Open wounds of head; neck; and trunk (2 sources) Unspecified open wound of abdominal wall, unspecified quadrant without penetration into peritoneal cavity, subsequent encounter; Translations: [Disorder of inguinal region] Onset: 11-15-2022 11-15-2022 Episodic Other aftercare (1 source) 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 (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 of oral hypoglycemic drugs; Translations: [VERIFYING MACHINE OPERATOR USE ORAL HYPOGLYCEMIC DX] Onset: 07-06-2021 Episodic Other aftercare (1 source) Other lobsterman (current) drug therapy; Translations: [OTH VERIFYING MACHINE OPERATOR CURRENT DRUG THERAPY] Onset: 07-06-2021 Episodic Other injuries and conditions due to external causes (3 sources) Open wound; Translations: [Other injury of unspecified body region, initial encounter] Onset: 09-12-2022 Episodic Other skin disorders (20 sources) Sebaceous cyst of skin; Translations: [Sebaceous cyst] Onset: 03-20-2023 03-20-2023 Episodic Residual codes; unclassified (20 sources) Tobacco user; Translations: [Tobacco use] Onset: 03-20-2023 03-20-2023 Episodic Septicemia (except in labor) (3 sources) Septic shock; Translations: [Sepsis, unspecified organism] Onset: 09-06-2022 Episodic Skin and subcutaneous tissue infections (13 sources) Cellulitis of left upper limb; Translations: [Abscess of abdominal wall] Onset: 07-06-2021 02-22-2024 Episodic Results Test Name Value Interpretation Reference Range Facility BASIC METABOLIC PANELon 08-0 Anion gap [Moles/Vol] 17 mmol/L Normal 7-20 [facility] Comment on above: Performed By: #### L [id number] #### [facility] (BEAKER) [address] [place] [address] Calcium [Mass/Vol] 9.3 mg/dL Normal 8.6-10.3 [facility] Comment on above: Performed By: #### L [id number] #### [facility] (BEAKER) [address] [place] [address] Chloride [Moles/Vol] 103 mmol/L Normal 98-107 [facility] Comment on above: Performed By: #### L [id number] #### [facility] (BEAKER) [address] [place] [address] CO2 [Moles/Vol] 20 mmol/L Low 21-31 [facility] Comment on above: Performed By: #### L [id number] #### [facility] ([facility]) [address] [place] [address] Creatinine [Mass/Vol] 1.26 mg/dL High 0.60-1.20 [facility] Comment on above: Performed By: #### L [id number] #### [facility] (BEAKER) [address] [place] [address] GLOMERULAR FILTRATION RATE ML/MIN/1.73 SQ M.PREDICTED 48.3 mL/min/1.73m*2 Low >60.0 [facility] Comment on above: Result Comment: [facility]???s estimated glomerular filtration rate (eGFR) will no longer include consideration of race in its calculation. The National Kidney Foundation???s eGFR Task Force developed new recommendations for [...] disproportionately affect any one group of individuals. Performed By: #### L [id number] #### [facility] ([facility]) [address] [place] [address] Glucose [Mass/Vol] 136 mg/dL High 70-100 [facility] Comment on above: Performed By: #### L [id number] #### [facility] ([facility]) [address] [place] [address] Potassium [Moles/Vol] 4.5 mmol/L Normal 3.5-5.1 [facility] Comment on above: Performed By: #### L [id number] #### [facility] ([facility]) [address] [place] [address] Sodium [Moles/Vol] 135 mmol/L Low 136-145 [facility] Comment on above: Performed By: #### L [id number] #### [facility] ([facility]) [address] [place] [address] Urea nitrogen [Mass/Vol] 26 mg/dL High 7-25 [facility] Comment on above: Performed By: #### L [id number] #### [facility] ([facility]) [address] [place] [address] UREA NITROGEN/CREATININE (MASS RATIO) IN SER/PLAS 20.6 Normal [facility] Comment on above: Performed By: #### L [id number] #### [facility] ([facility]) [address] [place] [address] BASIC METABOLIC PANELon 08-0 Anion gap [Moles/Vol] 13 mmol/L Normal 7-20 [facility] Comment on above: Performed By: #### L [id number] #### [facility] (BEAKER) [address] [place] [address] Calcium [Mass/Vol] 8.9 mg/dL Normal 8.6-10.3 [facility] Comment on above: Performed By: #### L [id number] #### [facility] ([facility]) [address] [place] [address] Chloride [Moles/Vol] 105 mmol/L Normal 98-107 [facility] Comment on above: Performed By: #### L [id number] #### [facility] (BEAKER) [address] [place] [address] CO2 [Moles/Vol] 24 mmol/L Normal 21-31 [facility] Comment on above: Performed By: #### L [id number] #### [facility] (BEAKER) [address] [place] [address] Creatinine [Mass/Vol] 1.52 mg/dL High 0.60-1.20 [facility] Comment on above: Performed By: #### L [id number] #### [facility] (BEAKER) [address] [place] [address] GLOMERULAR FILTRATION RATE ML/MIN/1.73 SQ M.PREDICTED 38.5 mL/min/1.73m*2 Low >[address]0 [facility] Comment on above: Result Comment: [facility]???s estimated glomerular filtration rate (eGFR) will no longer include consideration of race in its calculation. The National Kidney Foundation???s eGFR Task Force developed new recommendations for [...] disproportionately affect any one group of individuals. Performed By: #### L [id number] #### [facility] ([facility]) [address] [place] [address] Glucose [Mass/Vol] 110 mg/dL High 70-100 [facility] Comment on above: Performed By: #### L [id number] #### [facility] ([facility]) [address] [place] [address] Potassium [Moles/Vol] 4.1 mmol/L Normal 3.5-5.1 [facility] Comment on above: Performed By: #### L [id number] #### [facility] ([facility]) [address] [place] [address] Sodium [Moles/Vol] 138 mmol/L Normal 136-145 [facility] Comment on above: Performed By: #### L [id number] #### [facility] ([facility]) [address] [place] [address] Urea nitrogen [Mass/Vol] 31 mg/dL High 7-25 [facility] Comment on above: Performed By: #### L [id number] #### [facility] ([facility]) [address] [place] [address] UREA NITROGEN/CREATININE (MASS RATIO) IN SER/PLAS 20.4 Normal [facility] Comment on above: Performed By: #### L [id number] #### [facility] ([facility]) [address] [place] [address] CBCon 09-19-2024 Erythrocyte distribution width (RBC) [Ratio] 14.5 % Normal 11.5-15.0 [facility] Comment on above: Performed By: #### L [id number] #### [facility] ([facility]) [address] [place] [address] ERYTHROCYTE MEAN CORPUSCULAR HEMOGLOBIN CONCENTRATION (G/DL) BY AUTOMATED 32.5 g/dL Normal 32.0-35.0 [facility] Comment on above: Performed By: #### L [id number] #### [facility] (BEAKER) [address] [place] [address] Hematocrit (Bld) [Volume fraction] 29.5 % Low 36.0-45.0 [facility] Comment on above: Performed By: #### L [id number] #### [facility] ([facility]) [address] [place] [address] Hemoglobin (Bld) [Mass/Vol] 9.6 g/dL Low 12.0-15.0 [facility] Comment on above: Performed By: #### L [id number] #### [facility] ([facility]) [address] [place] [address] MCH (RBC) [Entitic mass] 29.4 pg Normal 27.0-33.0 [facility] Comment on above: Performed By: #### L [id number] #### [facility] ([facility]) [address] [place] [address] MCV (RBC) [Entitic vol] 90.5 fL Normal 82.0-98.[address] [facility] Comment on above: Performed By: #### L [id number] #### [facility] ([facility]) [address] [place] [address] PLATELETS (10*3/UL) IN BLOOD AUTOMATED COUNT 554 10*3/uL High 150-400 [facility] Comment on above: Performed By: #### L [id number] #### [facility] ([facility]) [address] [place] [address] RBC (Bld) [#/Vol] 3.26 10*6/uL Low 3.80-5.00 [facility] Comment on above: Performed By: #### L [id number] #### [facility] ([facility]) [address] [place] [address] WBC (Bld) [#/Vol] 9.17 10*3/uL Normal 4.00-10.60 [facility] Comment on above: Performed By: #### L [id number] #### [facility] ([facility]) [address] [place] [address] CBCon 09-16-2024 Erythrocyte distribution width (RBC) [Ratio] 14.6 % Normal 11.5-15.0 [facility] Comment on above: Performed By: #### L [id number] #### [facility] ([facility]) [address] [place] [address] ERYTHROCYTE MEAN CORPUSCULAR HEMOGLOBIN CONCENTRATION (G/DL) BY AUTOMATED 30.4 g/dL Low 32.0-35.0 [facility] Comment on above: Performed By: #### L [id number] #### [facility] ([facility]) [address] [place] [address] Hematocrit (Bld) [Volume fraction] 32.6 % Low 36.0-45.0 [facility] Comment on above: Performed By: #### L [id number] #### [facility] ([facility]) [address] [place] [address] Hemoglobin (Bld) [Mass/Vol] 9.9 g/dL Low 12.0-15.0 [facility] Comment on above: Performed By: #### L [id number] #### [facility] ([facility]) [address] [place] [address] MCH (RBC) [Entitic mass] 29.5 pg Normal 27.0-33.0 [facility] Comment on above: Performed By: #### L [id number] #### [facility] ([facility]) [address] [place] [address] MCV (RBC) [Entitic vol] 97.0 fL Normal 82.0-98.[address] [facility] Comment on above: Performed By: #### L [id number] #### [facility] ([facility]) [address] [place] [address] PLATELETS (10*3/UL) IN BLOOD AUTOMATED COUNT 475 10*3/uL High 150-400 [facility] Comment on above: Performed By: #### L [id number] #### [facility] ([facility]) [address] [place] [address] RBC (Bld) [#/Vol] 3.36 10*6/uL Low 3.80-5.00 [facility] Comment on above: Performed By: #### L [id number] #### [facility] ([facility]) [address] [place] [address] WBC (Bld) [#/Vol] 8.81 10*3/uL Normal 4.00-10.60 [facility] Comment on above: Performed By: #### L [id number] #### [facility] ([facility]) [address] [place] [address] PROCALCITONIN TESTon 025 PROCALCITONIN IN BLOOD 0.22 ng/mL High 0.00-0.10 [facility] Comment on above: Result Comment: Susp ected Lower Respiratory Tract Infection: 0.1-0.25 ng/mL - [...] hours if clinically indicated and initial PCT<0.5ng/mL Performed By: #### L [id number] #### [facility] ([facility]) [address] [place] [address] URINALYSISon 09-16-2024 BILIRUBIN, TOTAL PRESENCE IN URINE Negative Normal Negative [facility] Comment on above: Performed By: #### L [id number] #### [facility] ([facility]) [address] [place] [address] Clarity (U) Cloudy Abnormal Clear [facility] Comment on above: Performed By: #### L [id number] #### [facility] ([facility]) [address] [place] [address] Color (U) Yellow Normal Colorless, Yellow, Light-Yello w [facility] Comment on above: Performed By: #### L [id number] #### [facility] ([facility]) [address] [place] [address] Glucose (U) [Mass/Vol] mg/dL Abnormal [facility] Performed By: #### L [id number] #### [facility] ([facility]) [address] [place] [address] HEMOGLOBIN PRESENCE IN URINE Small Abnormal Negative [facility] Comment on above: Performed By: #### L [id number] #### [facility] ([facility]) [address] [place] [address] Ketones Ql (U) Negative Normal Negative [facility] Comment on above: Performed By: #### L [id number] #### [facility] ([facility]) [address] [place] [address] LEUKOCYTE ESTERASE PRESENCE IN URINE BY TEST STRIP Large Abnormal Negative [facility] Comment on above: Performed By: #### L [id number] #### [facility] ([facility]) [address] [place] [address] NITRITE PRESENCE IN URINE Positive Abnormal Negative [facility] Comment on above: Performed By: #### L [id number] #### [facility] ([facility]) [address] [place] [address] pH (U) 8.0 [pH] Normal 5.0-8.0 [facility] Comment on above: Performed By: #### L [id number] #### [facility] ([facility]) [address] [place] [address] Protein (U) [Mass/Vol] 300 mg/dL Abnormal Negative [facility]: Performed By: #### L [id number] #### [facility] ([facility]) [address] [place] [address] Specific gravity (U) [Rel density] 1.020 Normal 1.010-1.030 [facility] Comment on above: Performed By: #### L [id number] #### [facility] ([facility]) [address] [place] [address] UROBILINOGEN (MG/DL) IN URINE Normal Normal Normal [facility] Comment on above: Performed By: #### L [id number] #### [facility] ([facility]) [address] [place] [address] URINALYSIS MICROSCOPICon CRYSTALS IN URINE Present Abnormal None Seen [facility] Comment on above: Performed By: #### L [id number] #### [facility] ([facility]) [address] [place] [address] MUCUS (#/LPF) IN URINE SEDIMENT Occasional Normal None Seen, Occasional, Few [facility] Comment on above: Performed By: #### L [id number] #### [facility] ([facility]) [address] [place] [address] RBC (#/HPF) IN URINE SEDIMENT 11-20 Abnormal None Seen, 0-2 [facility] Comment on above: Performed By: #### L [id number] #### [facility] ([facility]) [address] [place] [address] SQUAMOUS EPITHELIAL CELLS (#/LPF) IN URINE SEDIMENT None Seen Normal None Seen, Occasional, Few [facility] Comment on above: Performed By: #### L [id number] #### [facility] ([facility]) [address] [place] [address] TRIPLE PHOSPHATE CRYSTALS (#/HPF) IN URINE Occasional Abnormal None Seen [facility] Comment on above: Performed By: #### L [id number] #### [facility] ([facility]) [address] [place] [address] WBC (LEUKOCYTE) (#/HPF) IN URINE SEDIMENT >50 Abnormal None Seen, 0-2 [facility] Comment on above: Performed By: #### L [id number] #### [facility] ([facility]) [address] [place] [address] URINE CULTURE, ROUTINEon Amoxicillin+Clavulanate [Susc] <=4/2 Susceptible [facility] Comment on above: Performed By: #### L [id number] ####[facility] ([facility])[address] [place] [address] Ampicillin [Susc] <=4 Susceptible [facility] Comment on above: Performed By: #### L [id number] ####[facility] ([facility])[address] [place] [address] Ampicillin+Sulbactam [Susc] 2/1 Susceptible [facility] Comment on above: Performed By: #### L [id number] ####[facility] ([facility])[address] [place] [address] ceFAZolin [Susc] Susceptible [facility] Comment on above: Performed By: #### L [id number] ####[facility] ([facility])[address] [place] [address] cefTRIAXone [Susc] <=1 Susceptible [facility] Comment on above: Performed By: #### L [id number] ####[facility] ([facility])[address] [place] [address] Ciprofloxacin [Susc] <=0.25 Susceptible [facility] Comment on above: Performed By: #### L [id number] ####[facility] ([facility])[address] [place] [address] Gentamicin [Susc] <=2 Susceptible [facility] Comment on above: Performed By: #### L [id number] ####[facility] ([facility])[address] [place] [address] Nitrofurantoin [Susc] >64 Resistant [facility] Comment on above: Performed By: #### L [id number] ####[facility] ([facility])[address] [place] [address] Tobramycin [Susc] <=2 Susceptible [facility] Comment on above: Performed By: #### L [id number] ####[facility] ([facility])[address] [place] [address] Trimethoprim+Sulfametho xazole [Susc] <=0.5/9.5 Susceptible [facility] Comment on above: Performed By: #### L [id number] ####[facility] ([facility])[address] [place] [address] CBCon 09-15-2024 Erythrocyte distribution width (RBC) [Ratio] 14.1 % Normal 11.5-15.0 [facility] Comment on above: Performed By: #### L [id number] #### [facility] ([facility]) [address] [place] [address] ERYTHROCYTE MEAN CORPUSCULAR HEMOGLOBIN CONCENTRATION (G/DL) BY AUTOMATED 32.9 g/dL Normal 32.0-35.0 [facility] Comment on above: Performed By: #### L [id number] #### [facility] ([facility]) [address] [place] [address] Hematocrit (Bld) [Volume fraction] 30.4 % Low 36.0-45.0 [facility] Comment on above: Performed By: #### L [id number] #### [facility] ([facility]) [address] [place] [address] Hemoglobin (Bld) [Mass/Vol] 10.0 g/dL Low 12.0-15.0 [facility] Comment on above: Performed By: #### L [id number] #### [facility] ([facility]) [address] [place] [address] MCH (RBC) [Entitic mass] 29.7 pg Normal 27.0-33.0 [facility] Comment on above: Performed By: #### L [id number] #### [facility] ([facility]) [address] [place] [address] MCV (RBC) [Entitic vol] 90.2 fL Normal 82.0-98.[address] [facility] Comment on above: Performed By: #### L [id number] #### [facility] ([facility]) [address] [place] [address] PLATELETS (10*3/UL) IN BLOOD AUTOMATED COUNT 534 10*3/uL High 150-400 [facility] Comment on above: Performed By: #### L [id number] #### [facility] ([facility]) [address] [place] [address] RBC (Bld) [#/Vol] 3.37 10*6/uL Low 3.80-5.00 [facility] Comment on above: Performed By: #### L [id number] #### [facility] ([facility]) [address] [place] [address] WBC (Bld) [#/Vol] 10.14 10*3/uL Normal 4.00-10.60 [facility] Comment on above: Performed By: #### L [id number] #### [facility] ([facility]) [address] [place] [address] COMPREHENSIVE METABOLIC PANE Dean 09-15-2024 Albumin [Mass/Vol] 2.8 g/dL Low 3.5-5.7 [facility] Comment on above: Performed By: #### L [id number] #### [facility] ([facility]) [address] [place] [address] ALP [Catalytic activity/Vol] 107 U/L High 34-104 [facility] Comment on above: Performed By: #### L [id number] #### [facility] ([facility]) [address] [place] [address] ALT [Catalytic activity/Vol] 10 U/L Normal 7-52 [facility] Comment on above: Performed By: #### L [id number] #### [facility] ([facility]) [address] [place] [address] Anion gap [Moles/Vol] 10 mmol/L Normal 7-20 [facility] Comment on above: Performed By: #### L [id number] #### [facility] ([facility]) [address] [place] [address] AST [Catalytic activity/Vol] 11 U/L Low 13-39 [facility] Comment on above: Performed By: #### L [id number] #### [facility] ([facility]) [address] [place] [address] Bilirubin [Mass/Vol] 0.4 mg/dL Normal 0.3-1.0 [facility] Comment on above: Performed By: #### L [id number] #### [facility] ([facility]) [address] [place] [address] Calcium [Mass/Vol] 8.9 mg/dL Normal 8.6-10.3 [facility] Comment on above: Performed By: #### L [id number] #### [facility] ([facility]) [address] [place] [address] Chloride [Moles/Vol] 102 mmol/L Normal 98-107 [facility] Comment on above: Performed By: #### L [id number] #### [facility] ([facility]) [address] [place] [address] CO2 [Moles/Vol] 28 mmol/L Normal 21-31 [facility] Comment on above: Performed By: #### L [id number] #### [facility] ([facility]) [address] [place] [address] Creatinine [Mass/Vol] 1.01 mg/dL Normal 0.60-1.20 [facility] Comment on above: Performed By: #### L [id number] #### [facility] ([facility]) [address] [place] [address] GLOMERULAR FILTRATION RATE ML/MIN/1.73 SQ M.PREDICTED 62.9 mL/min/1.73m*2 Normal >60.0 [facility] Comment on above: Result Comment: The [facility]???s estimated glomerular filtration rate (eGFR) will no longer include consideration of race in its calculation. The National Kidney Foundation???s eGFR Task Force developed new recommendations for [...] disproportionately affect any one group of individuals. Performed By: #### L [id number] #### [facility] ([facility]) [address] [place] [address] Glucose [Mass/Vol] 174 mg/dL High 70-100 [facility] Comment on above: Performed By: #### L [id number] #### [facility] ([facility]) [address] [place] [address] Potassium [Moles/Vol] 4.0 mmol/L Normal 3.5-5.1 [facility] Comment on above: Performed By: #### L [id number] #### [facility] ([facility]) [address] [place] [address] Protein [Mass/Vol] 6.4 g/dL Normal 6.0-8.3 [facility] Comment on above: Performed By: #### L [id number] #### [facility] ([facility]) [address] [place] [address] Sodium [Moles/Vol] 136 mmol/L Normal 136-145 [facility] Comment on above: Performed By: #### L [id number] #### [facility] ([facility]) [address] [place] [address] Urea nitrogen [Mass/Vol] 25 mg/dL Normal 7-25 [facility] Comment on above: Performed By: #### L [id number] #### [facility] ([facility]) [address] [place] [address] UREA NITROGEN/CREATININE (MASS RATIO) IN SER/PLAS 24.8 Normal [facility] Comment on above: Performed By: #### L [id number] #### [facility] ([facility]) [address] [place] [address] BASIC METABOLIC PANELon 08-0 Anion gap [Moles/Vol] 12 mmol/L Normal 7-20 [facility] Comment on above: Performed By: #### L [id number] #### [facility] ([facility]) [address] [place] [address] Calcium [Mass/Vol] 8.9 mg/dL Normal 8.6-10.3 [facility] Comment on above: Performed By: #### L [id number] #### [facility] ([facility]) [address] [place] [address] Chloride [Moles/Vol] 102 mmol/L Normal 98-107 [facility] Comment on above: Performed By: #### L [id number] #### [facility] ([facility]) [address] [place] [address] CO2 [Moles/Vol] 27 mmol/L Normal 21-31 [facility] Comment on above: Performed By: #### L [id number] #### [facility] ([facility]) [address] [place] [address] Creatinine [Mass/Vol] 1.05 mg/dL Normal 0.60-1.20 [facility] Comment on above: Performed By: #### L [id number] #### [facility] ([facility]) [address] [place] [address] GLOMERULAR FILTRATION RATE ML/MIN/1.73 SQ M.PREDICTED 60.1 mL/min/1.73m*2 Normal >60.0 [facility] Comment on above: Result Comment: The [facility]???s estimated glomerular filtration rate (eGFR) will no longer include consideration of race in its calculation. The National Kidney Foundation???s eGFR Task Force developed new recommendations for [...] disproportionately affect any one group of individuals. Performed By: #### L [id number] #### [facility] ([facility]) [address] [place] [address] Glucose [Mass/Vol] 174 mg/dL High 70-100 [facility] Comment on above: Performed By: #### L [id number] #### [facility] ([facility]) [address] [place] [address] Potassium [Moles/Vol] 4.3 mmol/L Normal 3.5-5.1 [facility] Comment on above: Performed By: #### L [id number] #### [facility] ([facility]) [address] [place] [address] Sodium [Moles/Vol] 137 mmol/L Normal 136-145 [facility] Comment on above: Performed By: #### L [id number] #### [facility] ([facility]) [address] [place] [address] Urea nitrogen [Mass/Vol] 25 mg/dL Normal 7-25 [facility] Comment on above: Performed By: #### L [id number] #### [facility] ([facility]) [address] [place] [address] UREA NITROGEN/CREATININE (MASS RATIO) IN SER/PLAS 23.8 Normal [facility] Comment on above: Performed By: #### L [id number] #### [facility] ([facility]) [address] [place] [address] CBCon 09-13-2024 Erythrocyte distribution width (RBC) [Ratio] 14.1 % Normal 11.5-15.0 [facility] Comment on above: Performed By: #### L [id number] #### [facility] ([facility]) [address] [place] [address] ERYTHROCYTE MEAN CORPUSCULAR HEMOGLOBIN CONCENTRATION (G/DL) BY AUTOMATED 32.2 g/dL Normal 32.0-35.0 [facility] Comment on above: Performed By: #### L [id number] #### [facility] ([facility]) [address] [place] [address] Hematocrit (Bld) [Volume fraction] 31.7 % Low 36.0-45.0 [facility] Comment on above: Performed By: #### L [id number] #### [facility] ([facility]) [address] [place] [address] Hemoglobin (Bld) [Mass/Vol] 10.2 g/dL Low 12.0-15.0 [facility] Comment on above: Performed By: #### L [id number] #### [facility] ([facility]) [address] [place] [address] MCH (RBC) [Entitic mass] 29.1 pg Normal 27.0-33.0 [facility] Comment on above: Performed By: #### L [id number] #### [facility] ([facility]) [address] [place] [address] MCV (RBC) [Entitic vol] 90.6 fL Normal 82.0-98.[address] [facility] Comment on above: Performed By: #### L [id number] #### [facility] ([facility]) [address] [place] [address] PLATELETS (10*3/UL) IN BLOOD AUTOMATED COUNT 540 10*3/uL High 150-400 [facility] Comment on above: Performed By: #### L [id number] #### [facility] ([facility]) [address] [place] [address] RBC (Bld) [#/Vol] 3.50 10*6/uL Low 3.80-5.00 [facility] Comment on above: Performed By: #### L [id number] #### [facility] ([facility]) [address] [place] [address] WBC (Bld) [#/Vol] 10.32 10*3/uL Normal 4.00-10.60 [facility] Comment on above: Performed By: #### L [id number] #### [facility] ([facility]) [address] [place] [address] CBC WITH AUTO DIFFERENTIALon 09-10-2024 Basophils (Bld) [#/Vol] 0.06 10*3/uL Normal 0.00-0.20 [facility] Comment on above: Performed By: #### L [id number] #### [facility] ([facility]) [address] [place] [address] Basophils/100 WBC (Bld) 0.6 % Normal 0.0-1.0 [facility] Comment on above: Performed By: #### L [id number] #### [facility] ([facility]) [address] [place] [address] Eosinophils (Bld) [#/Vol] 0.49 10*3/uL Normal 0.00-0.50 [facility] Comment on above: Performed By: #### L [id number] #### [facility] ([facility]) [address] [place] [address] Eosinophils/100 WBC (Bld) 4.6 % Normal 0.0-6.0 [facility] Comment on above: Performed By: #### L [id number] #### [facility] ([facility]) [address] [place] [address] Erythrocyte distribution width (RBC) [Ratio] 13.9 % Normal 11.5-15.0 [facility] Comment on above: Performed By: #### L [id number] #### [facility] ([facility]) [address] [place] [address] ERYTHROCYTE MEAN CORPUSCULAR HEMOGLOBIN CONCENTRATION (G/DL) BY AUTOMATED 32.7 g/dL Normal 32.0-35.0 [facility] Comment on above: Performed By: #### L [id number] #### [facility] ([facility]) [address] [address] Hematocrit (Bld) [Volume fraction] 31.2 % Low 36.0-45.0 [facility] Comment on above: Performed By: #### L [id number] #### [facility] ([facility]) [address] [place] [address] Hemoglobin (Bld) [Mass/Vol] 10.2 g/dL Low 12.0-15.0 [facility] Comment on above: Performed By: #### L [id number] #### [facility] ([facility]) [address] [place] [address] Immature granulocytes (Bld) [#/Vol] 0.05 10*3/uL Normal 0.00-0.20 [facility] Comment on above: Performed By: #### L [id number] #### [facility] ([facility]) [address] [place] [address] Immature granulocytes/100 WBC (Bld) 0.5 % Normal 0.0-1.0 [facility] Comment on above: Performed By: #### L [id number] #### [facility] ([facility]) [address] [place] [address] Lymphocytes (Bld) [#/Vol] 3.84 10*3/uL Normal 1.20-4.00 [facility] Comment on above: Performed By: #### L [id number] #### [facility] ([facility]) [address] [facility] [place] [address] Lymphocytes/100 WBC (Bld) 36.4 % Normal 20.0-45.0 [facility] Comment on above: Performed By: #### L [id number] #### [facility] ([facility]) [address] [place] [address] MCH (RBC) [Entitic mass] 29.6 pg Normal 27.0-33.0 [facility] Comment on above: Performed By: #### L [id number] #### [facility] ([facility]) [address] [place] [address] MCV (RBC) [Entitic vol] 90.4 fL Normal 82.0-98.[address] [facility] Comment on above: Performed By: #### L [id number] #### [facility] ([facility]) [address] [place] [address] Monocytes (Bld) [#/Vol] 0.91 10*3/uL Normal 0.10-1.00 [facility] Comment on above: Performed By: #### L [id number] #### [facility] ([facility]) [address] [place] [address] Monocytes/100 WBC (Bld) 8.6 % Normal 5.0-12.[address] [facility] Comment on above: Performed By: #### L [id number] #### [facility] ([facility]) [address] [place] [address] Neutrophils (Bld) [#/Vol] 5.21 10*3/uL Normal 1.60-7.60 [facility] Comment on above: Performed By: #### L [id number] #### [facility] ([facility]) [address] [place] [address] Neutrophils/100 WBC (Bld) 49.3 % Normal 40.0-72.0 [facility] Comment on above: Performed By: #### L [id number] #### [facility] ([facility]) [address] [place] [address] NRBC (PER 100 WBCS) BY AUTOMATED COUNT 0.0 % Normal 0 [facility] Comment on above: Performed By: #### L [id number] #### [facility] ([facility]) [address] [place] [address] PLATELETS (10*3/UL) IN BLOOD AUTOMATED COUNT 555 10*3/uL High 150-400 [facility] Comment on above: Performed By: #### L [id number] #### [facility] ([facility]) [address] [place] [address] RBC (Bld) [#/Vol] 3.45 10*6/uL Low 3.80-5.00 [facility] Comment on above: Performed By: #### L [id number] #### [facility] ([facility]) [address] [place] [address] WBC (Bld) [#/Vol] 10.56 10*3/uL Normal 4.00-10.60 [facility] Comment on above: Performed By: #### L [id number] #### [facility] ([facility]) [address] [place] [address] COMPREHENSIVE METABOLIC PANE Dean 09-10-2024 Albumin [Mass/Vol] 2.7 g/dL Low 3.5-5.7 [facility] Comment on above: Performed By: #### L [id number] #### [facility] ([facility]) [address] [place] [address] ALP [Catalytic activity/Vol] 97 U/L Normal 34-104 [facility] Comment on above: Performed By: #### L [id number] #### [facility] ([facility]) [address] [place] [address] ALT [Catalytic activity/Vol] 7 U/L Normal 7-52 [facility] Comment on above: Performed By: #### L [id number] #### [facility] ([facility]) [address] [place] [address] Anion gap [Moles/Vol] 10 mmol/L Normal 7-20 [facility] Comment on above: Performed By: #### L [id number] #### [facility] ([facility]) [address] [place] [address] AST [Catalytic activity/Vol] 16 U/L Normal 13-39 [facility] Comment on above: Performed By: #### L [id number] #### [facility] ([facility]) [address] [place] [address] Bilirubin [Mass/Vol] 0.3 mg/dL Normal 0.3-1.0 [facility] Comment on above: Performed By: #### L [id number] #### [facility] ([facility]) [address] [place] [address] Calcium [Mass/Vol] 8.4 mg/dL Low 8.6-10.3 [facility] Comment on above: Performed By: #### L [id number] #### [facility] ([facility]) [address] [place] [address] Chloride [Moles/Vol] 104 mmol/L Normal 98-107 [facility] Comment on above: Performed By: #### L [id number] #### [facility] ([facility]) [address] [place] [address] CO2 [Moles/Vol] 29 mmol/L Normal 21-31 [facility] Comment on above: Performed By: #### L [id number] #### [facility] ([facility]) [address] [place] [address] Creatinine [Mass/Vol] 1.00 mg/dL Normal 0.60-1.20 [facility] Comment on above: Performed By: #### L [id number] #### [facility] ([facility]) [address] [place] [address] GLOMERULAR FILTRATION RATE ML/MIN/1.73 SQ M.PREDICTED 63.7 mL/min/1.73m*2 Normal >60.0 [facility] Comment on above: Result Comment: [facility]???s estimated glomerular filtration rate (eGFR) will no longer include consideration of race in its calculation. The National Kidney Foundation???s eGFR Task Force developed new recommendations for [...] disproportionately affect any one group of individuals. Performed By: #### L [id number] #### [facility] ([facility]) [address] [place] [address] Glucose [Mass/Vol] 102 mg/dL High 70-100 [facility] Comment on above: Performed By: #### L [id number] #### [facility] ([facility]) [address] [place] [address] Potassium [Moles/Vol] 4.2 mmol/L Normal 3.5-5.1 [facility] Comment on above: Performed By: #### L [id number] #### [facility] ([facility]) [address] [place] [address] Protein [Mass/Vol] 6.0 g/dL Normal 6.0-8.3 [facility] Comment on above: Performed By: #### L [id number] #### [facility] ([facility]) [address] [place] [address] Sodium [Moles/Vol] 139 mmol/L Normal 136-145 [facility] Comment on above: Performed By: #### L [id number] #### [facility] ([facility]) [address] [place] [address] Urea nitrogen [Mass/Vol] 30 mg/dL High 7-25 [facility] Comment on above: Performed By: #### L [id number] #### [facility] ([facility]) [address] [place] [address] UREA NITROGEN/CREATININE (MASS RATIO) IN SER/PLAS 30.0 Normal [facility] Comment on above: Performed By: #### L [id number] #### [facility] ([facility]) [address] [place] [address] CBCon 09-07-2024 Erythrocyte distribution width (RBC) [Ratio] 13.7 % Normal 11.5-15.0 [facility] Comment on above: Performed By: #### L [id number] #### [facility] ([facility]) [address] [place] [address] ERYTHROCYTE MEAN CORPUSCULAR HEMOGLOBIN CONCENTRATION (G/DL) BY AUTOMATED 32.2 g/dL Normal 32.0-35.0 [facility] Comment on above: Performed By: #### L [id number] #### [facility] ([facility]) [address] [place] [address] Hematocrit (Bld) [Volume fraction] 30.7 % Low 36.0-45.0 [facility] Comment on above: Performed By: #### L [id number] #### [facility] ([facility]) [address] [place] [address] Hemoglobin (Bld) [Mass/Vol] 9.9 g/dL Low 12.0-15.0 [facility] Comment on above: Performed By: #### L [id number] #### [facility] ([facility]) [address] [place] [address] MCH (RBC) [Entitic mass] 29.3 pg Normal 27.0-33.0 [facility] Comment on above: Performed By: #### L [id number] #### [facility] ([facility]) [address] [place] [address] MCV (RBC) [Entitic vol] 90.8 fL Normal 82.0-98.[address] [facility] Comment on above: Performed By: #### L [id number] #### [facility] ([facility]) [address] [place] [address] PLATELETS (10*3/UL) IN BLOOD AUTOMATED COUNT 490 10*3/uL High 150-400 [facility] Comment on above: Performed By: #### L [id number] #### [facility] ([facility]) [address] [place] [address] RBC (Bld) [#/Vol] 3.38 10*6/uL Low 3.80-5.00 [facility] Comment on above: Performed By: #### L [id number] #### [facility] ([facility]) [address] [place] [address] WBC (Bld) [#/Vol] 9.61 10*3/uL Normal 4.00-10.60 [facility] Comment on above: Performed By: #### L [id number] #### [facility] [facility] [address] [place] [address] COMPREHENSIVE METABOLIC PANE Dean 09-07-2024 Albumin [Mass/Vol] 2.5 g/dL Low 3.5-5.7 [facility] Comment on above: Performed By: #### L [id number] #### [facility] ([facility]) [address] [place] [address] ALP [Catalytic activity/Vol] 107 U/L High 34-104 [facility] Comment on above: Performed By: #### L [id number] #### [facility] ([facility]) [address] [place] [address] ALT [Catalytic activity/Vol] 7 U/L Normal 7-52 [facility] Comment on above: Performed By: #### L [id number] #### [facility] ([facility]) [address] [place] [address] Anion gap [Moles/Vol] 9 mmol/L Normal 7-20 [facility] Comment on above: Performed By: #### L [id number] #### [facility] ([facility]) [address] [place] [address] AST [Catalytic activity/Vol] 12 U/L Low 13-39 [facility] Comment on above: Performed By: #### L [id number] #### [facility] ([facility]) [address] [place] [address] Bilirubin [Mass/Vol] 0.3 mg/dL Normal 0.3-1.0 [facility] Comment on above: Performed By: #### L [id number] #### [facility] ([facility]) [address] [place] [address] Calcium [Mass/Vol] 8.4 mg/dL Low 8.6-10.3 [facility] Comment on above: Performed By: #### L [id number] #### [facility] ([facility]) [address] [place] [address] Chloride [Moles/Vol] 103 mmol/L Normal 98-107 [facility] Comment on above: Performed By: #### L [id number] #### [facility] ([facility]) [address] [place] [address] CO2 [Moles/Vol] 32 mmol/L High 21-31 [facility] Comment on above: Performed By: #### L [id number] #### [facility] ([facility]) [address] [place] [address] Creatinine [Mass/Vol] 0.89 mg/dL Normal 0.60-1.20 [facility] Comment on above: Performed By: #### L [id number] #### [facility] ([facility]) [address] [place] [address] GLOMERULAR FILTRATION RATE ML/MIN/1.73 SQ M.PREDICTED 73.3 mL/min/1.73m*2 Normal >60.0 [facility] Comment on above: Result Comment: [facility]???s estimated glomerular filtration rate (eGFR) will no longer include consideration of race in its calculation. The National Kidney Foundation???s eGFR Task Force developed new recommendations for [...] disproportionately affect any one group of individuals. Performed By: #### L [id number] #### [facility] ([facility]) [address] [place] [address] Glucose [Mass/Vol] 95 mg/dL Normal 70-100 [facility] Comment on above: Performed By: #### L [id number] #### [facility] ([facility]) [address] [place] [address] Potassium [Moles/Vol] 3.8 mmol/L Normal 3.5-5.1 [facility] Comment on above: Performed By: #### L [id number] #### [facility] ([facility]) [address] [place] [address] Protein [Mass/Vol] 5.9 g/dL Low 6.0-8.3 [facility] Comment on above: Performed By: #### L [id number] #### [facility] ([facility]) [address] [place] [address] Sodium [Moles/Vol] 140 mmol/L Normal 136-145 [facility] Comment on above: Performed By: #### L [id number] #### [facility] ([facility]) [address] [place] [address] Urea nitrogen [Mass/Vol] 23 mg/dL Normal 7-25 [facility] Comment on above: Performed By: #### L [id number] #### [facility] ([facility]) [address] [place] [address] UREA NITROGEN/CREATININE (MASS RATIO) IN SER/PLAS 25.8 Normal [facility] Comment on above: Performed By: #### L [id number] #### [facility] ([facility]) [address] [place] [address] AMMONIAon 09-05-2024 AMMONIA (UMOL/L) IN PLASMA 28 umol/L Normal 18-72 [facility] Comment on above: Performed By: #### L [id number] #### [facility] ([facility]) [address] [place] [address] COMPREHENSIVE METABOLIC PANE Dean 09-05-2024 Albumin [Mass/Vol] 2.7 g/dL Low 3.5-5.7 [facility] Comment on above: Performed By: #### L [id number] #### [facility] ([facility]) [address] [place] [place] [address] ALP [Catalytic activity/Vol] 118 U/L High 34-104 [facility] Comment on above: Performed By: #### L [id number] #### [facility] ([facility]) [address] [place] [address] ALT [Catalytic activity/Vol] 8 U/L Normal 7-52 [facility] Comment on above: Performed By: #### L [id number] #### [facility] ([facility]) [address] [place] [address] Anion gap [Moles/Vol] 10 mmol/L Normal 7-20 [facility] Comment on above: Performed By: #### L [id number] #### [facility] ([facility]) [address] [place] [address] AST [Catalytic activity/Vol] 13 U/L Normal 13-39 [facility] Comment on above: Performed By: #### L [id number] #### [facility] ([facility]) [address] [place] [address] Bilirubin [Mass/Vol] 0.3 mg/dL Normal 0.3-1.0 [facility] Comment on above: Performed By: #### L [id number] #### [facility] ([facility]) [address] [place] [address] Calcium [Mass/Vol] 8.2 mg/dL Low 8.6-10.3 [facility] Comment on above: Performed By: #### L [id number] #### [facility] ([facility]) [address] [place] [address] Chloride [Moles/Vol] 102 mmol/L Normal 98-107 [facility] Comment on above: Performed By: #### L [id number] #### [facility] ([facility]) [address] [place] [address] CO2 [Moles/Vol] 31 mmol/L Normal 21-31 [facility] Comment on above: Performed By: #### L [id number] #### [facility] ([facility]) [address] [place] [address] Creatinine [Mass/Vol] 0.94 mg/dL Normal 0.60-1.20 [facility] Comment on above: Performed By: #### L [id number] #### [facility] ([facility]) [address] [place] [address] GLOMERULAR FILTRATION RATE ML/MIN/1.73 SQ M.PREDICTED 68.6 mL/min/1.73m*2 Normal >60.0 [facility] Comment on above: Result Comment: [facility]???s estimated glomerular filtration rate (eGFR) will no longer include consideration of race in its calculation. The National Kidney Foundation???s eGFR Task Force developed new recommendations for [...] disproportionately affect any one group of individuals. Performed By: #### L [id number] #### [facility] ([facility]) [address] [place] [address] Glucose [Mass/Vol] 161 mg/dL High 70-100 [facility] Comment on above: Performed By: #### L [id number] #### [facility] ([facility]) [address] [place] [address] Potassium [Moles/Vol] 4.1 mmol/L Normal 3.5-5.1 [facility] Comment on above: Performed By: #### L [id number] #### [facility] ([facility]) [address] [place] [address] Protein [Mass/Vol] 6.4 g/dL Normal 6.0-8.3 [facility] Comment on above: Performed By: #### L [id number] #### [facility] ([facility]) [address] [place] [address] Sodium [Moles/Vol] 139 mmol/L Normal 136-145 [facility] Comment on above: Performed By: #### L [id number] #### [facility] ([facility]) [address] [place] [address] Urea nitrogen [Mass/Vol] 28 mg/dL High 7-25 [facility] Comment on above: Performed By: #### L [id number] #### [facility] ([facility]) [address] [place] [address] UREA NITROGEN/CREATININE (MASS RATIO) IN SER/PLAS 29.8 Normal [facility] Comment on above: Performed By: #### L [id number] #### [facility] ([facility]) [address] [place] [address] LACTIC ACID, PLASMAon 2024 LACTATE (MMOL/L) IN SER/PLAS 1.4 mmol/L Normal 0.5-2.2 [facility] Comment on above: Performed By: #### L [id number] #### [facility] ([facility]) [address] [place] [address] PROCALCITONIN TESTon 025 PROCALCITONIN IN BLOOD 0.15 ng/mL High 0.00-0.10 [facility] Comment on above: Result Comment: Susp ected Lower Respiratory Tract Infection: 0.1-0.25 ng/mL - [...] hours if clinically indicated and initial PCT<0.5ng/mL Performed By: #### L [id number] #### [facility] ([facility]) [address] [place] [address] TSH3 REFLEX TO FT4on 025 THYROTROPIN (MIU/L) IN SER/PLAS BY DETECTION LIMIT <= 0.05 MIU/L 2.74 mIU/L Normal 0.34-5.60 [facility] Comment on above: Performed By: #### L [id number] #### [facility] ([facility]) [address] [place] [address] BASIC METABOLIC PANELon 08-14 Anion gap [Moles/Vol] 11 mmol/L Normal 7-20 [facility] Comment on above: Performed By: #### L [id number] #### [facility] ([facility]) [address] [place] [address] Calcium [Mass/Vol] 8.4 mg/dL Low 8.6-10.3 [facility] Comment on above: Performed By: #### L [id number] #### [facility] ([facility]) [address] [place] [address] Chloride [Moles/Vol] 99 mmol/L Normal 98-107 [facility] Comment on above: Performed By: #### L [id number] #### [facility] ([facility]) [address] [place] [address] CO2 [Moles/Vol] 30 mmol/L Normal 21-31 [facility] Comment on above: Performed By: #### L [id number] #### [facility] ([facility]) [address] [place] [address] Creatinine [Mass/Vol] 0.99 mg/dL Normal 0.60-1.20 [facility] Comment on above: Performed By: #### L [id number] #### [facility] ([facility]) [address] [place] [address] GLOMERULAR FILTRATION RATE ML/MIN/1.73 SQ M.PREDICTED 64.5 mL/min/1.73m*2 Normal >60.0 [facility] Comment on above: Result Comment: The [facility]???s estimated glomerular filtration rate (eGFR) will no longer include consideration of race in its calculation. The National Kidney Foundation???s eGFR Task Force developed new recommendations for [...] disproportionately affect any one group of individuals. Performed By: #### L [id number] #### [facility] ([facility]) [address] [place] [address] Glucose [Mass/Vol] 157 mg/dL High 70-100 [facility] Comment on above: Performed By: #### L [id number] #### [facility] ([facility]) [address] [place] [address] Potassium [Moles/Vol] 4.2 mmol/L Normal 3.5-5.1 [facility] Comment on above: Performed By: #### L [id number] #### [facility] ([facility]) [address] [place] [address] Sodium [Moles/Vol] 136 mmol/L Normal 136-145 [facility] Comment on above: Performed By: #### L [id number] #### [facility] ([facility]) [address] [place] [address] Urea nitrogen [Mass/Vol] 32 mg/dL High 7-25 [facility] Comment on above: Performed By: #### L [id number] #### [facility] ([facility]) [address] [place] [address] UREA NITROGEN/CREATININE (MASS RATIO) IN SER/PLAS 32.3 Normal [facility] Comment on above: Performed By: #### L [id number] #### [facility] ([facility]) [address] [place] [address] CBCon 09-04-2024 Erythrocyte distribution width (RBC) [Ratio] 13.9 % Normal 11.5-15.0 [facility] Comment on above: Performed By: #### L [id number] #### [facility] ([facility]) [address] [place] [address] ERYTHROCYTE MEAN CORPUSCULAR HEMOGLOBIN CONCENTRATION (G/DL) BY AUTOMATED 31.9 g/dL Low 32.0-35.0 [facility] Comment on above: Performed By: #### L [id number] #### [facility] ([facility]) [address] [place] [address] Hematocrit (Bld) [Volume fraction] 34.5 % Low 36.0-45.0 [facility] Comment on above: Performed By: #### L [id number] #### [facility] ([facility]) [address] [place] [address] Hemoglobin (Bld) [Mass/Vol] 11.0 g/dL Low 12.0-15.0 [facility] Comment on above: Performed By: #### L [id number] #### [facility] ([facility]) [address] [place] [address] MCH (RBC) [Entitic mass] 29.4 pg Normal 27.0-33.0 [facility] Comment on above: Performed By: #### L [id number] #### [facility] ([facility]) [address] [place] [address] MCV (RBC) [Entitic vol] 92.2 fL Normal 82.0-98.[address] [facility] Comment on above: Performed By: #### L [id number] #### [facility] ([facility]) [address] [place] [address] PLATELETS (10*3/UL) IN BLOOD AUTOMATED COUNT 516 10*3/uL High 150-400 [facility] Comment on above: Performed By: #### L [id number] #### [facility] ([facility]) [address] [place] [address] RBC (Bld) [#/Vol] 3.74 10*6/uL Low 3.80-5.00 [facility] Comment on above: Performed By: #### L [id number] #### [facility] ([facility]) [address] [place] [address] WBC (Bld) [#/Vol] 9.23 10*3/uL Normal 4.00-10.60 [facility] Comment on above: Performed By: #### L [id number] #### [facility] ([facility]) [address] [place] [address] BLOOD CULTUREon 09-03-2024 Bacteria identified Cx Nom (Bld) No growth at [address] [facility] Comment on above: Performed By: #### L [id number] #### [facility] ([facility]) [address] [place] [address] LACTIC ACID, PLASMAon 2024 LACTATE (MMOL/L) IN SER/PLAS 2.3 mmol/L High 0.5-2.2 [facility] Comment on above: Performed By: #### L [id number] #### [facility] ([facility]) [address] [place] [address] PROCALCITONIN TESTon 025 PROCALCITONIN IN BLOOD 0.16 ng/mL High 0.00-0.10 [facility] Comment on above: Result Comment: Susp ected Lower Respiratory Tract Infection: 0.1-0.25 ng/mL - [...] hours if clinically indicated and initial PCT<0.5ng/mL Performed By: #### L [id number] #### [facility] ([employer]) [address] [place] [address] BASIC METABOLIC PANELon 07-2 Anion gap [Moles/Vol] 13 mmol/L Normal 7-20 [facility] Comment on above: Performed By: #### L [id number] #### [facility] ([facility]) [address] [place] [address] Calcium [Mass/Vol] 8.5 mg/dL Low 8.6-10.3 [facility] Comment on above: Performed By: #### L [id number] #### [facility] ([facility]) [address] [place] [address] Chloride [Moles/Vol] 100 mmol/L Normal 98-107 [facility] Comment on above: Performed By: #### L [id number] #### [facility] ([facility]) [address] [place] [address] CO2 [Moles/Vol] 28 mmol/L Normal 21-31 [facility] Comment on above: Performed By: #### L [id number] #### [facility] ([facility]) [address] [place] [address] Creatinine [Mass/Vol] 1.03 mg/dL Normal 0.60-1.20 [facility] Comment on above: Performed By: #### L [id number] #### [facility] ([facility]) [address] [place] [address] GLOMERULAR FILTRATION RATE ML/MIN/1.73 SQ M.PREDICTED 61.5 mL/min/1.73m*2 Normal >60.0 [facility] Comment on above: Result Comment: [facility]???s estimated glomerular filtration rate (eGFR) will no longer include consideration of race in its calculation. The National Kidney Foundation???s eGFR Task Force developed new recommendations for [...] disproportionately affect any one group of individuals. Performed By: #### L [id number] #### [facility] ([facility]) [address] [place] [address] Glucose [Mass/Vol] 152 mg/dL High 70-100 [facility] Comment on above: Performed By: #### L [id number] #### [facility] ([facility]) [address] [place] [address] Potassium [Moles/Vol] 4.6 mmol/L Normal 3.5-5.1 [facility] Comment on above: Performed By: #### L [id number] #### [facility] ([facility]) [address] [place] [address] Sodium [Moles/Vol] 136 mmol/L Normal 136-145 [facility] Comment on above: Performed By: #### L [id number] #### [facility] ([facility]) [address] [place] [address] Urea nitrogen [Mass/Vol] 33 mg/dL High 7-25 [facility] Comment on above: Performed By: #### L [id number] #### [facility] ([facility]) [address] [place] [address] UREA NITROGEN/CREATININE (MASS RATIO) IN SER/PLAS 32.0 Normal [facility] Comment on above: Performed By: #### L [id number] #### [facility] ([facility]) [address] [place] [address] CBC WITH AUTO DIFFERENTIALon 09-02-2024 Basophils (Bld) [#/Vol] 0.10 10*3/uL Normal 0.00-0.20 [facility] Comment on above: Performed By: #### L [id number] #### [facility] ([facility]) [address] [place] [address] Basophils/100 WBC (Bld) 1.1 % High 0.0-1.[address] [facility] Comment on above: Performed By: #### L [id number] #### [facility] ([facility]) [address] [place] [address] Eosinophils (Bld) [#/Vol] 0.39 10*3/uL Normal 0.00-0.50 [facility] Comment on above: Performed By: #### L [id number] #### [facility] ([facility]) [address] [place] [address] Eosinophils/100 WBC (Bld) 4.5 % Normal 0.0-6.0 [facility] Comment on above: Performed By: #### L [id number] #### [facility] ([facility]) [address] [place] [address] Erythrocyte distribution width (RBC) [Ratio] 13.8 % Normal 11.5-15.0 [facility] Comment on above: Performed By: #### L [id number] #### [facility] ([facility]) [address] [address] ERYTHROCYTE MEAN CORPUSCULAR HEMOGLOBIN CONCENTRATION (G/DL) BY AUTOMATED 31.1 g/dL Low 32.0-35.0 [facility] Comment on above: Performed By: #### L [id number] #### [facility] ([facility]) [address] [place] [address] Hematocrit (Bld) [Volume fraction] 33.4 % Low 36.0-45.0 [facility] Comment on above: Performed By: #### L [id number] #### [facility] ([facility]) [address] [place] [address] Hemoglobin (Bld) [Mass/Vol] 10.4 g/dL Low 12.0-15.0 [facility] Comment on above: Performed By: #### L [id number] #### [facility] ([facility]) [address] [address] Immature granulocytes (Bld) [#/Vol] 0.05 10*3/uL Normal 0.00-0.20 [facility] Comment on above: Performed By: #### L [id number] #### [facility] ([facility]) [address] [place] [address] Immature granulocytes/100 WBC (Bld) 0.6 % Normal 0.0-1.0 [facility] Comment on above: Performed By: #### L [id number] #### [facility] ([facility]) [address] [address] Lymphocytes (Bld) [#/Vol] 2.84 10*3/uL Normal 1.20-4.00 [facility] Comment on above: Performed By: #### L [id number] #### [facility] ([facility]) [address] [place] [address] Lymphocytes/100 WBC (Bld) 32.6 % Normal 20.0-45.0 [facility] Comment on above: Performed By: #### L [id number] #### [facility] ([facility]) [address] [place] [address] MCH (RBC) [Entitic mass] 29.6 pg Normal 27.0-33.0 [facility] Comment on above: Performed By: #### L [id number] #### [facility] ([facility]) [address] [place] [address] MCV (RBC) [Entitic vol] 95.2 fL Normal 82.0-98.[address] [facility] Comment on above: Performed By: #### L [id number] #### [facility] ([facility]) [address] [place] [address] Monocytes (Bld) [#/Vol] 0.81 10*3/uL Normal 0.10-1.00 [facility] Comment on above: Performed By: #### L [id number] #### [facility] ([facility]) [address] [place] [address] Monocytes/100 WBC (Bld) 9.3 % Normal 5.0-12.[address] [facility] Comment on above: Performed By: #### L [id number] #### [facility] ([facility]) [address] [place] [address] Neutrophils (Bld) [#/Vol] 4.53 10*3/uL Normal 1.60-7.60 [facility] Comment on above: Performed By: #### L [id number] #### [facility] ([facility]) [address] [place] [address] Neutrophils/100 WBC (Bld) 51.9 % Normal 40.0-72.0 [facility] Comment on above: Performed By: #### L [id number] #### [facility] ([facility]) [address] [place] [address] NRBC (PER 100 WBCS) BY AUTOMATED COUNT 0.2 % High 0 [facility] Comment on above: Performed By: #### L [id number] #### [facility] ([facility]) [address] [place] [address] PLATELETS (10*3/UL) IN BLOOD AUTOMATED COUNT 544 10*3/uL High 150-400 [facility] Comment on above: Performed By: #### L [id number] #### [facility] ([facility]) [address] [place] [address] RBC (Bld) [#/Vol] 3.51 10*6/uL Low 3.80-5.00 [facility] Comment on above: Performed By: #### L [id number] #### [facility] ([facility]) [address] [place] [address] WBC (Bld) [#/Vol] 8.72 10*3/uL Normal 4.00-10.60 [facility] Comment on above: Performed By: #### L [id number] #### [facility] ([facility]) [address] [place] [address] MAGNESIUMon 09-02-2024 Magnesium [Mass/Vol] 2.1 mg/dL Normal 1.9-2.7 [facility] Comment on above: Performed By: #### L [id number] #### [facility] ([facility]) [address] [place] [address] PHOSPHORUSon 09-02-2024 Magnesium [Mass/Vol] 3.4 mg/dL Normal 2.5-5.0 [facility] Comment on above: Performed By: #### L [id number] #### [facility] ([facility]) [address] [place] [address] BASIC METABOLIC PANELon 08-13 Anion gap [Moles/Vol] 11 mmol/L Normal 7-20 [facility] Comment on above: Performed By: #### L [id number] #### [facility] ([facility]) [address] [place] [address] Calcium [Mass/Vol] 8.5 mg/dL Low 8.6-10.3 [facility] Comment on above: Performed By: #### L [id number] #### [facility] (BEAK[facility]) [address] [place] [address] Chloride [Moles/Vol] 97 mmol/L Low 98-107 [facility] Comment on above: Performed By: #### L [id number] #### [facility] ([facility]) [address] [place] [address] CO2 [Moles/Vol] 31 mmol/L Normal 21-31 [facility] Comment on above: Performed By: #### L [id number] #### [facility] ([facility]) [address] [place] [address] Creatinine [Mass/Vol] 0.91 mg/dL Normal 0.60-1.20 [facility] Comment on above: Performed By: #### L [id number] #### [facility] ([facility]) [address] [place] [address] GLOMERULAR FILTRATION RATE ML/MIN/1.73 SQ M.PREDICTED 71.3 mL/min/1.73m*2 Normal >60.0 [facility] Comment on above: Result Comment: [facility]???s estimated glomerular filtration rate (eGFR) will no longer include consideration of race in its calculation. The National Kidney Foundation???s eGFR Task Force developed new recommendations for [...] disproportionately affect any one group of individuals. Performed By: #### L [id number] #### [facility] ([facility]) [address] [place] [address] Glucose [Mass/Vol] 218 mg/dL High 70-100 [facility] Comment on above: Performed By: #### L [id number] #### [facility] ([facility]) [address] [place] [address] Potassium [Moles/Vol] 4.1 mmol/L Normal 3.5-5.1 [facility] Comment on above: Performed By: #### L [id number] #### [facility] ([facility]) [address] [place] [address] Sodium [Moles/Vol] 135 mmol/L Low 136-145 [facility] Comment on above: Performed By: #### L [id number] #### [facility] ([facility]) [address] [place] [address] Urea nitrogen [Mass/Vol] 25 mg/dL Normal 7-25 [facility] Comment on above: Performed By: #### L [id number] #### [facility] ([facility]) [address] [place] [address] UREA NITROGEN/CREATININE (MASS RATIO) IN SER/PLAS 27.5 Normal [facility] Comment on above: Performed By: #### L [id number] #### [facility] ([facility]) [address] [place] [address] CBC WITH AUTO DIFFERENTIALon 08-30-2024 Basophils (Bld) [#/Vol] 0.06 10*3/uL Normal 0.00-0.20 [facility] Comment on above: Performed By: #### L [id number] #### [facility] ([facility]) [address] [place] [address] Basophils/100 WBC (Bld) 0.7 % Normal 0.0-1.0 [facility] Comment on above: Performed By: #### L [id number] #### [facility] ([facility]) [address] [place] [address] Eosinophils (Bld) [#/Vol] 0.30 10*3/uL Normal 0.00-0.50 [facility] Comment on above: Performed By: #### L [id number] #### [facility] ([facility]) [address] [place] [address] Eosinophils/100 WBC (Bld) 3.7 % Normal 0.0-6.0 [facility] Comment on above: Performed By: #### L [id number] #### [facility] ([facility]) [address] [place] [address] Erythrocyte distribution width (RBC) [Ratio] 13.8 % Normal 11.5-15.0 [facility] Comment on above: Performed By: #### L [id number] #### [facility] ([facility]ER) [address] [place] [address] ERYTHROCYTE MEAN CORPUSCULAR HEMOGLOBIN CONCENTRATION (G/DL) BY AUTOMATED 33.0 g/dL Normal 32.0-35.0 [facility] Comment on above: Performed By: #### L [id number] #### [facility] ([facility]) [address] [place] [address] Hematocrit (Bld) [Volume fraction] 31.5 % Low 36.0-45.0 [facility] Comment on above: Performed By: #### L [id number] #### [facility] ([facility]) [address] [place] [address] Hemoglobin (Bld) [Mass/Vol] 10.4 g/dL Low 12.0-15.0 [facility] Comment on above: Performed By: #### L [id number] #### [facility] ([facility]) [address] [place] [address] Immature granulocytes (Bld) [#/Vol] 0.03 10*3/uL Normal 0.00-0.20 [facility] Comment on above: Performed By: #### L [id number] #### [facility] ([facility]) [address] [place] [address] Immature granulocytes/100 WBC (Bld) 0.4 % Normal 0.0-1.0 [facility] Comment on above: Performed By: #### L [id number] #### [facility] ([facility]) [address] [place] [address] Lymphocytes (Bld) [#/Vol] 2.62 10*3/uL Normal 1.20-4.00 [facility] Comment on above: Performed By: #### L [id number] #### [facility] ([facility]) [address] [place] [address] Lymphocytes/100 WBC (Bld) 32.1 % Normal 20.0-45.0 [facility] Comment on above: Performed By: #### L [id number] #### [facility] (BEAKER) [address] [place] [address] MCH (RBC) [Entitic mass] 29.9 pg Normal 27.0-33.0 [facility] Comment on above: Performed By: #### L [id number] #### [facility] ([facility]) [address] [address] MCV (RBC) [Entitic vol] 90.5 fL Normal 82.0-98.[address] [facility] Comment on above: Performed By: #### L [id number] #### [facility] ([facility]) [address] [place] [address] Monocytes (Bld) [#/Vol] 0.88 10*3/uL Normal 0.10-1.00 [facility] Comment on above: Performed By: #### L [id number] #### [facility] ([facility]) [address] [place] [address] Monocytes/100 WBC (Bld) 10.8 % Normal 5.0-12.[address] [facility] Comment on above: Performed By: #### L [id number] #### [facility] ([facility]) [address] [place] [address] Neutrophils (Bld) [#/Vol] 4.28 10*3/uL Normal 1.60-7.60 [facility] Comment on above: Performed By: #### L [id number] #### [facility] ([facility]) [address] [place] [address] Neutrophils/100 WBC (Bld) 52.3 % Normal 40.0-72.0 [facility] Comment on above: Performed By: #### L [id number] #### [facility] ([facility]) [address] [place] [address] NRBC (PER 100 WBCS) BY AUTOMATED COUNT 0.0 % Normal 0 [facility] Comment on above: Performed By: #### L [id number] #### [facility] ([facility]ER) [address] [place] [address] PLATELETS (10*3/UL) IN BLOOD AUTOMATED COUNT 585 10*3/uL High 150-400 [facility] Comment on above: Performed By: #### L [id number] #### [facility] ([facility]ER) [address] [place] [address] RBC (Bld) [#/Vol] 3.48 10*6/uL Low 3.80-5.00 [facility] Comment on above: Performed By: #### L [id number] #### [facility] ([facility]) [address] [place] [address] WBC (Bld) [#/Vol] 8.17 10*3/uL Normal 4.00-10.60 [facility] Comment on above: Performed By: #### L [id number] #### [facility] ([facility]) [address] [place] [address] MAGNESIUMon 08-30-2024 Magnesium [Mass/Vol] 1.8 mg/dL Low 1.9-2.7 [facility] Comment on above: Performed By: #### L [id number] #### [facility] ([facility]) [address] [place] [address] BASIC METABOLIC PANELon 08-13 Anion gap [Moles/Vol] 10 mmol/L Normal 7-20 [facility] Comment on above: Performed By: #### L [id number] #### [facility] ([facility]ER) [address] [place] [address] Calcium [Mass/Vol] 8.3 mg/dL Low 8.6-10.3 [facility] Comment on above: Performed By: #### L [id number] #### [facility] (BE[facility]ER) [address] [place] [address] Chloride [Moles/Vol] 97 mmol/L Low 98-107 [facility] Comment on above: Performed By: #### L [id number] #### [facility] ([facility]ER) [address] [place] [address] CO2 [Moles/Vol] 34 mmol/L High 21-31 [facility] Comment on above: Performed By: #### L [id number] #### [facility] ([facility]) [address] [place] [address] Creatinine [Mass/Vol] 0.82 mg/dL Normal 0.60-1.20 [facility] Comment on above: Performed By: #### L [id number] #### [facility] ([facility]) [address] [place] [address] GLOMERULAR FILTRATION RATE ML/MIN/1.73 SQ M.PREDICTED 80.8 mL/min/1.73m*2 Normal >60.0 [facility] Comment on above: Result Comment: [facility]???s estimated glomerular filtration rate (eGFR) will no longer include consideration of race in its calculation. The National Kidney Foundation???s eGFR Task Force developed new recommendations for [...] disproportionately affect any one group of individuals. Performed By: #### L [id number] #### [facility] ([facility]) [address] [place] [address] Glucose [Mass/Vol] 170 mg/dL High 70-100 [facility] Comment on above: Performed By: #### L [id number] #### [facility] ([facility]) [address] [address] Potassium [Moles/Vol] 4.1 mmol/L Normal 3.5-5.1 [facility] Comment on above: Performed By: #### L [id number] #### [facility] ([facility]) [address] [place] [address] Sodium [Moles/Vol] 137 mmol/L Normal 136-145 [facility] Comment on above: Performed By: #### L [id number] #### [facility] ([facility]) [address] [place] [address] Urea nitrogen [Mass/Vol] 22 mg/dL Normal 7-25 [facility] Comment on above: Performed By: #### L [id number] #### [facility] ([facility]) [address] [place] [address] UREA NITROGEN/CREATININE (MASS RATIO) IN SER/PLAS 26.8 Normal [facility] Comment on above: Performed By: #### L [id number] #### [facility] ([facility]) [address] [place] [address] CBC WITH AUTO DIFFERENTIALon 08-28-2024 Basophils (Bld) [#/Vol] 0.06 10*3/uL Normal 0.00-0.20 [facility] Comment on above: Performed By: #### L [id number] #### [facility] ([facility]) [address] [place] [address] Basophils/100 WBC (Bld) 1.1 % High 0.0-1.0 [facility] Comment on above: Performed By: #### L [id number] #### [facility] ([facility]) [address] [place] [address] Eosinophils (Bld) [#/Vol] 0.20 10*3/uL Normal 0.00-0.50 [facility] Comment on above: Performed By: #### L [id number] #### [facility] ([facility]) [address] [place] [address] Eosinophils/100 WBC (Bld) 3.5 % Normal 0.0-6.0 [facility] Comment on above: Performed By: #### L [id number] #### [facility] ([facility]) [address] [place] [address] Erythrocyte distribution width (RBC) [Ratio] 14.1 % Normal 11.5-15.0 [facility] Comment on above: Performed By: #### L [id number] #### [facility] ([facility]) [address] [place] [address] ERYTHROCYTE MEAN CORPUSCULAR HEMOGLOBIN CONCENTRATION (G/DL) BY AUTOMATED 32.8 g/dL Normal 32.0-35.0 [facility] Comment on above: Performed By: #### L [id number] #### [facility] ([facility]) [address] [place] [address] Hematocrit (Bld) [Volume fraction] 30.8 % Low 36.0-45.0 [facility] Comment on above: Performed By: #### L [id number] #### [facility] ([facility]) [address] [place] [address] Hemoglobin (Bld) [Mass/Vol] 10.1 g/dL Low 12.0-15.0 [facility] Comment on above: Performed By: #### L [id number] #### [facility] ([facility]) [address] [place] [address] Immature granulocytes (Bld) [#/Vol] 0.03 10*3/uL Normal 0.00-0.20 [facility] Comment on above: Performed By: #### L [id number] #### [facility] ([facility]) [address] [place] [address] Immature granulocytes/100 WBC (Bld) 0.5 % Normal 0.0-1.0 [facility] Comment on above: Performed By: #### L [id number] #### [facility] ([facility]) [address] [place] [address] Lymphocytes (Bld) [#/Vol] 1.87 10*3/uL Normal 1.20-4.00 [facility] Comment on above: Performed By: #### L [id number] #### [facility] ([facility]) [address] [facility] [place] [address] Lymphocytes/100 WBC (Bld) 32.9 % Normal 20.0-45.0 [facility] Comment on above: Performed By: #### L [id number] #### [facility] ([facility]ER) [address] [place] [address] MCH (RBC) [Entitic mass] 30.1 pg Normal 27.0-33.0 [facility] Comment on above: Performed By: #### L [id number] #### [facility] ([facility]) [address] [place] [address] MCV (RBC) [Entitic vol] 91.9 fL Normal 82.0-98.[address] [facility] Comment on above: Performed By: #### L [id number] #### [facility] ([facility]) [address] [place] [address] Monocytes (Bld) [#/Vol] 0.80 10*3/uL Normal 0.10-1.00 [facility] Comment on above: Performed By: #### L [id number] #### [facility] ([facility]) [address] [place] [address] Monocytes/100 WBC (Bld) 14.1 % High 5.0-12.[address] [facility] Comment on above: Performed By: #### L [id number] #### [facility] ([facility]) [address] [place] [address] Neutrophils (Bld) [#/Vol] 2.73 10*3/uL Normal 1.60-7.60 [facility] Comment on above: Performed By: #### L [id number] #### [facility] ([facility]) [address] [place] [address] Neutrophils/100 WBC (Bld) 47.9 % Normal 40.0-72.0 [facility] Comment on above: Performed By: #### L [id number] #### [facility] ([facility]) [address] [place] [address] NRBC (PER 100 WBCS) BY AUTOMATED COUNT 0.0 % Normal 0 [facility] Comment on above: Performed By: #### L [id number] #### [facility] ([facility]) [address] [place] [address] PLATELETS (10*3/UL) IN BLOOD AUTOMATED COUNT 548 10*3/uL High 150-400 [facility] Comment on above: Performed By: #### L [id number] #### [facility] ([facility]) [address] [place] [address] RBC (Bld) [#/Vol] 3.35 10*6/uL Low 3.80-5.00 [facility] Comment on above: Performed By: #### L [id number] #### [facility] ([facility]) [address] [place] [address] WBC (Bld) [#/Vol] 5.69 10*3/uL Normal 4.00-10.60 [facility] Comment on above: Performed By: #### L [id number] #### [facility] ([facility]) [address] [place] [address] MAGNESIUMon 08-28-2024 Magnesium [Mass/Vol] 2.0 mg/dL Normal 1.9-2.7 [facility] Comment on above: Performed By: #### L [id number] #### [facility] ([facility]) [address] [place] [address] BASIC METABOLIC PANELon 08-13 Anion gap [Moles/Vol] 10 mmol/L Normal 7-20 [facility] Comment on above: Performed By: #### L [id number] #### [facility] ([facility]) [address] [place] [address] Calcium [Mass/Vol] 8.4 mg/dL Low 8.6-10.3 [facility] Comment on above: Performed By: #### L [id number] #### [facility] ([facility]) [address] [place] [address] Chloride [Moles/Vol] 99 mmol/L Normal 98-107 [facility] Comment on above: Performed By: #### L [id number] #### [facility] (BE[facility]ER) [address] [place] [address] CO2 [Moles/Vol] 33 mmol/L High 21-31 [facility] Comment on above: Performed By: #### L [id number] #### [facility] ([facility]) [address] [place] [address] Creatinine [Mass/Vol] 0.72 mg/dL Normal 0.60-1.20 [facility] Comment on above: Performed By: #### L [id number] #### [facility] ([facility]) [address] [place] [address] GLOMERULAR FILTRATION RATE ML/MIN/1.73 SQ M.PREDICTED 94.5 mL/min/1.73m*2 Normal >60.0 [facility] Comment on above: Result Comment: [facility]???s estimated glomerular filtration rate (eGFR) will no longer include consideration of race in its calculation. The National Kidney Foundation???s eGFR Task Force developed new recommendations for [...] disproportionately affect any one group of individuals. Performed By: #### L [id number] #### [facility] ([facility]) [address] [place] [address] Glucose [Mass/Vol] 165 mg/dL High 70-100 [facility] Comment on above: Performed By: #### L [id number] #### [facility] ([facility]) [address] [place] [address] Potassium [Moles/Vol] 4.4 mmol/L Normal 3.5-5.1 [facility] Comment on above: Performed By: #### L [id number] #### [facility] ([facility]) [address] [place] [address] Sodium [Moles/Vol] 138 mmol/L Normal 136-145 [facility] Comment on above: Performed By: #### L [id number] #### [facility] ([facility]) [address] [place] [address] Urea nitrogen [Mass/Vol] 17 mg/dL Normal 7-25 [facility] Comment on above: Performed By: #### L [id number] #### [facility] ([facility]) [address] [place] [address] UREA NITROGEN/CREATININE (MASS RATIO) IN SER/PLAS 23.6 Normal [facility] Comment on above: Performed By: #### L [id number] #### [facility] ([facility]) [address] [place] [address] CBC WITH AUTO DIFFERENTIALon 08-27-2024 Basophils (Bld) [#/Vol] 0.04 10*3/uL Normal 0.00-0.20 [facility] Comment on above: Performed By: #### L [id number] #### [facility] ([facility]) [address] [place] [address] Basophils/100 WBC (Bld) 0.7 % Normal 0.0-1.0 [facility] Comment on above: Performed By: #### L [id number] #### [facility] ([facility]) [address] [place] [address] Eosinophils (Bld) [#/Vol] 0.08 10*3/uL Normal 0.00-0.50 [facility] Comment on above: Performed By: #### L [id number] #### [facility] ([facility]) [address] [place] [address] Eosinophils/100 WBC (Bld) 1.3 % Normal 0.0-6.0 [facility] Comment on above: Performed By: #### L [id number] #### [facility] ([facility]) [address] [place] [address] Erythrocyte distribution width (RBC) [Ratio] 14.2 % Normal 11.5-15.0 [facility] Comment on above: Performed By: #### L [id number] #### [facility] ([facility]) [address] [place] [address] ERYTHROCYTE MEAN CORPUSCULAR HEMOGLOBIN CONCENTRATION (G/DL) BY AUTOMATED 31.7 g/dL Low 32.0-35.0 [facility] Comment on above: Performed By: #### L [id number] #### [facility] ([facility]) [address] [place] [address] Hematocrit (Bld) [Volume fraction] 34.4 % Low 36.0-45.0 [facility] Comment on above: Performed By: #### L [id number] #### [facility] ([facility]) [address] [place] [address] Hemoglobin (Bld) [Mass/Vol] 10.9 g/dL Low 12.0-15.0 [facility] Comment on above: Performed By: #### L [id number] #### [facility] ([facility]) [address] [place] [address] Immature granulocytes (Bld) [#/Vol] 0.01 10*3/uL Normal 0.00-0.20 [facility] Comment on above: Performed By: #### L [id number] #### [facility] ([facility]) [address] [place] [address] Immature granulocytes/100 WBC (Bld) 0.2 % Normal 0.0-1.0 [facility] Comment on above: Performed By: #### L [id number] #### [facility] ([facility]) [address] [place] [address] Lymphocytes (Bld) [#/Vol] 1.81 10*3/uL Normal 1.20-4.00 [facility] Comment on above: Performed By: #### L [id number] #### [facility] ([facility]) [address] [place] [place] [address] Lymphocytes/100 WBC (Bld) 29.8 % Normal 20.0-45.0 [facility] Comment on above: Performed By: #### L [id number] #### [facility] ([facility]) [address] [place] [address] MCH (RBC) [Entitic mass] 29.6 pg Normal 27.0-33.0 [facility] Comment on above: Performed By: #### L [id number] #### [facility] ([facility]) [address] [place] [address] MCV (RBC) [Entitic vol] 93.5 fL Normal 82.0-98.[address] [facility] Comment on above: Performed By: #### L [id number] #### [facility] ([facility]) [address] [place] [address] Monocytes (Bld) [#/Vol] 0.77 10*3/uL Normal 0.10-1.00 [facility] Comment on above: Performed By: #### L [id number] #### [facility] ([facility]) [address] [place] [address] Monocytes/100 WBC (Bld) 12.7 % High 5.0-12.[address] [facility] Comment on above: Performed By: #### L [id number] #### [facility] ([facility]) [address] [place] [address] Neutrophils (Bld) [#/Vol] 3.36 10*3/uL Normal 1.60-7.60 [facility] Comment on above: Performed By: #### L [id number] #### [facility] ([facility]) [address] [place] [address] Neutrophils/100 WBC (Bld) 55.3 % Normal 40.0-72.0 [facility] Comment on above: Performed By: #### L [id number] #### [facility] ([facility]) [address] [place] [address] NRBC (PER 100 WBCS) BY AUTOMATED COUNT 0.0 % Normal 0 [facility] Comment on above: Performed By: #### L [id number] #### [facility] ([facility]) [address] [place] [address] PLATELETS (10*3/UL) IN BLOOD AUTOMATED COUNT 505 10*3/uL High 150-400 [facility] Comment on above: Performed By: #### L [id number] #### [facility] ([facility]) [address] [place] [address] RBC (Bld) [#/Vol] 3.68 10*6/uL Low 3.80-5.00 [facility] Comment on above: Performed By: #### L [id number] #### [facility] ([facility]) [address] [place] [address] WBC (Bld) [#/Vol] 6.07 10*3/uL Normal 4.00-10.60 [facility] Comment on above: Performed By: #### L [id number] #### [facility] ([facility]) [address] [place] [address] MAGNESIUMon 08-27-2024 Magnesium [Mass/Vol] 1.9 mg/dL Normal 1.9-2.7 [facility] Comment on above: Performed By: #### L [id number] #### [facility] ([facility]) [address] [place] [address] PHOSPHORUSon 08-27-2024 Magnesium [Mass/Vol] 3.4 mg/dL Normal 2.5-5.0 [facility] Comment on above: Performed By: #### L [id number] #### [facility] ([facility]) [address] [place] [address] BASIC METABOLIC PANELon 08-13 Anion gap [Moles/Vol] 11 mmol/L Normal 7-20 [facility] Comment on above: Performed By: #### L [id number] #### [facility] ([facility]) [address] [place] [address] Calcium [Mass/Vol] 8.4 mg/dL Low 8.6-10.3 [facility] Comment on above: Performed By: #### L [id number] #### [facility] ([facility]) [address] [place] [address] Chloride [Moles/Vol] 99 mmol/L Normal 98-107 [facility] Comment on above: Performed By: #### L [id number] #### [facility] ([facility]) [address] [place] [address] CO2 [Moles/Vol] 31 mmol/L Normal 21-31 [facility] Comment on above: Performed By: #### L [id number] #### [facility] ([facility]) [address] [place] [address] Creatinine [Mass/Vol] 0.78 mg/dL Normal 0.60-1.20 [facility] Comment on above: Performed By: #### L [id number] #### [facility] ([facility]) [address] [place] [address] GLOMERULAR FILTRATION RATE ML/MIN/1.73 SQ M.PREDICTED 85.8 mL/min/1.73m*2 Normal >60.0 [facility] Comment on above: Result Comment: [facility]???s estimated glomerular filtration rate (eGFR) will no longer include consideration of race in its calculation. The National Kidney Foundation???s eGFR Task Force developed new recommendations for [...] disproportionately affect any one group of individuals. Performed By: #### L [id number] #### [facility] ([facility]) [address] [place] [address] Glucose [Mass/Vol] 188 mg/dL High 70-100 [facility] Comment on above: Performed By: #### L [id number] #### [facility] ([facility]) [address] [place] [address] Potassium [Moles/Vol] 4.0 mmol/L Normal 3.5-5.1 [facility] Comment on above: Performed By: #### L [id number] #### [facility] ([facility]) [address] [place] [address] Sodium [Moles/Vol] 137 mmol/L Normal 136-145 [facility] Comment on above: Performed By: #### L [id number] #### [facility] ([facility]) [address] [place] [address] Urea nitrogen [Mass/Vol] 20 mg/dL Normal 7-25 [facility] Comment on above: Performed By: #### L [id number] #### [facility] ([facility]) [address] [place] [address] UREA NITROGEN/CREATININE (MASS RATIO) IN SER/PLAS 25.6 Normal [facility] Comment on above: Performed By: #### L [id number] #### [facility] ([facility]) [address] [place] [address] CBC WITH AUTO DIFFERENTIALon 08-26-2024 Basophils (Bld) [#/Vol] 0.07 10*3/uL Normal 0.00-0.20 [facility] Comment on above: Performed By: #### L [id number] #### [facility] ([facility]) [address] [place] [address] Basophils/100 WBC (Bld) 0.9 % Normal 0.0-1.0 [facility] Comment on above: Performed By: #### L [id number] #### [facility] ([facility]) [address] [place] [address] Eosinophils (Bld) [#/Vol] 0.27 10*3/uL Normal 0.00-0.50 [facility] Comment on above: Performed By: #### L [id number] #### [facility] ([facility]) [address] [place] [address] Eosinophils/100 WBC (Bld) 3.4 % Normal 0.0-6.0 [facility] Comment on above: Performed By: #### L [id number] #### [facility] ([facility]) [address] [place] [address] Erythrocyte distribution width (RBC) [Ratio] 14.6 % Normal 11.5-15.0 [facility] Comment on above: Performed By: #### L [id number] #### [facility] ([facility]) [address] [place] [address] ERYTHROCYTE MEAN CORPUSCULAR HEMOGLOBIN CONCENTRATION (G/DL) BY AUTOMATED 30.8 g/dL Low 32.0-35.0 [facility] Comment on above: Performed By: #### L [id number] #### [facility] ([facility]) [address] [place] [address] Hematocrit (Bld) [Volume fraction] 33.8 % Low 36.0-45.0 [facility] Comment on above: Performed By: #### L [id number] #### [facility] ([facility]) [address] [place] [address] Hemoglobin (Bld) [Mass/Vol] 10.4 g/dL Low 12.0-15.0 [facility] Comment on above: Performed By: #### L [id number] #### [facility] ([facility]) [address] [address] Immature granulocytes (Bld) [#/Vol] 0.02 10*3/uL Normal 0.00-0.20 [facility] Comment on above: Performed By: #### L [id number] #### [facility] ([facility]) [address] [place] [address] Immature granulocytes/100 WBC (Bld) 0.3 % Normal 0.0-1.0 [facility] Comment on above: Performed By: #### L [id number] #### [facility] ([facility]) [address] [place] [address] Lymphocytes (Bld) [#/Vol] 1.72 10*3/uL Normal 1.20-4.00 [facility] Comment on above: Performed By: #### L [id number] #### [facility] ([facility]) [address] [place] [address] Lymphocytes/100 WBC (Bld) 21.9 % Normal 20.0-45.0 [facility] Comment on above: Performed By: #### L [id number] #### [facility] ([facility]) [address] [place] [address] MCH (RBC) [Entitic mass] 29.7 pg Normal 27.0-33.0 [facility] Comment on above: Performed By: #### L [id number] #### [facility] ([facility]) [address] [place] [address] MCV (RBC) [Entitic vol] 96.6 fL Normal 82.0-98.[address] [facility] Comment on above: Performed By: #### L [id number] #### [facility] ([facility]) [address] [place] [address] Monocytes (Bld) [#/Vol] 0.84 10*3/uL Normal 0.10-1.00 [facility] Comment on above: Performed By: #### L [id number] #### [facility] ([facility]) [address] [place] [address] Monocytes/100 WBC (Bld) 10.7 % Normal 5.0-12.[address] [facility] Comment on above: Performed By: #### L [id number] #### [facility] ([facility]) [address] [place] [address] Neutrophils (Bld) [#/Vol] 4.93 10*3/uL Normal 1.60-7.60 [facility] Comment on above: Performed By: #### L [id number] #### [facility] ([facility]) [address] [place] [address] Neutrophils/100 WBC (Bld) 62.8 % Normal 40.0-72.0 [facility] Comment on above: Performed By: #### L [id number] #### [facility] ([facility]) [address] [place] [address] NRBC (PER 100 WBCS) BY AUTOMATED COUNT 0.0 % Normal 0 [facility] Comment on above: Performed By: #### L [id number] #### [facility] ([facility]) [address] [place] [address] PLATELETS (10*3/UL) IN BLOOD AUTOMATED COUNT 395 10*3/uL Normal 150-400 [facility] Comment on above: Performed By: #### L [id number] #### [facility] ([facility]) [address] [place] [address] RBC (Bld) [#/Vol] 3.50 10*6/uL Low 3.80-5.00 [facility] Comment on above: Performed By: #### L [id number] #### [facility] ([facility]) [address] [place] [address] WBC (Bld) [#/Vol] 7.85 10*3/uL Normal 4.00-10.60 [facility] Comment on above: Performed By: #### L [id number] #### [facility] ([facility]) [address] [place] [address] MAGNESIUMon 08-26-2024 Magnesium [Mass/Vol] 2.0 mg/dL Normal 1.9-2.7 [facility] Comment on above: Performed By: #### L [id number] #### [facility] ([facility]) [address] [place] [address] CBC WITH AUTO DIFFERENTIALon 08-24-2024 Basophils (Bld) [#/Vol] 0.07 10*3/uL Normal 0.00-0.20 [facility] Comment on above: Performed By: #### L [id number] #### [facility] ([facility]) [address] [place] [address] Basophils/100 WBC (Bld) 0.7 % Normal 0.0-1.[address] [facility] Comment on above: Performed By: #### L [id number] #### [facility] ([facility]) [address] [place] [address] Eosinophils (Bld) [#/Vol] 0.21 10*3/uL Normal 0.00-0.50 [facility] Comment on above: Performed By: #### L [id number] #### [facility] ([facility]) [address] [place] [address] Eosinophils/100 WBC (Bld) 2.0 % Normal 0.0-6.0 [facility] Comment on above: Performed By: #### L [id number] #### [facility] ([facility]) [address] [place] [address] Erythrocyte distribution width (RBC) [Ratio] 14.9 % Normal 11.5-15.0 [facility] Comment on above: Performed By: #### L [id number] #### [facility] ([facility]) [address] [place] [address] ERYTHROCYTE MEAN CORPUSCULAR HEMOGLOBIN CONCENTRATION (G/DL) BY AUTOMATED 31.0 g/dL Low 32.0-35.0 [facility] Comment on above: Performed By: #### L [id number] #### [facility] ([facility]) [address] [place] [address] Hematocrit (Bld) [Volume fraction] 33.2 % Low 36.0-45.0 [facility] Comment on above: Performed By: #### L [id number] #### [facility] ([facility]) [address] [place] [address] Hemoglobin (Bld) [Mass/Vol] 10.3 g/dL Low 12.0-15.0 [facility] Comment on above: Performed By: #### L [id number] #### [facility] ([facility]) [address] [place] [address] Immature granulocytes (Bld) [#/Vol] 0.04 10*3/uL Normal 0.00-0.20 [facility] Comment on above: Performed By: #### L [id number] #### [facility] ([facility]) [address] [place] [address] Immature granulocytes/100 WBC (Bld) 0.4 % Normal 0.0-1.0 [facility] Comment on above: Performed By: #### L [id number] #### [facility] ([facility]) [address] [place] [address] Lymphocytes (Bld) [#/Vol] 2.10 10*3/uL Normal 1.20-4.00 [facility] Comment on above: Performed By: #### L [id number] #### [facility] ([facility]) [address] [place] [address] Lymphocytes/100 WBC (Bld) 19.8 % Low 20.0-45.0 [facility] Comment on above: Performed By: #### L [id number] #### [facility] ([facility]) [address] [place] [address] MCH (RBC) [Entitic mass] 29.9 pg Normal 27.0-33.0 [facility] Comment on above: Performed By: #### L [id number] #### [facility] ([facility]) [address] [place] [address] MCV (RBC) [Entitic vol] 96.2 fL Normal 82.0-98.[address] [facility] Comment on above: Performed By: #### L [id number] #### [facility] ([facility]) [address] [place] [address] Monocytes (Bld) [#/Vol] 0.99 10*3/uL Normal 0.10-1.00 [facility] Comment on above: Performed By: #### L [id number] #### [facility] ([facility]) [address] [place] [address] Monocytes/100 WBC (Bld) 9.4 % Normal 5.0-12.[address] [facility] Comment on above: Performed By: #### L [id number] #### [facility] ([facility]) [address] [place] [address] Neutrophils (Bld) [#/Vol] 7.17 10*3/uL Normal 1.60-7.60 [facility] Comment on above: Performed By: #### L [id number] #### [facility] ([facility]) [address] [place] [address] Neutrophils/100 WBC (Bld) 67.7 % Normal 40.0-72.0 [facility] Comment on above: Performed By: #### L [id number] #### [facility] ([facility]) [address] [place] [address] NRBC (PER 100 WBCS) BY AUTOMATED COUNT 0.0 % Normal 0 [facility] Comment on above: Performed By: #### L [id number] #### [facility] ([facility]) [address] [place] [address] PLATELETS (10*3/UL) IN BLOOD AUTOMATED COUNT 432 10*3/uL High 150-400 [facility] Comment on above: Performed By: #### L [id number] #### [facility] ([facility]) [address] [place] [address] RBC (Bld) [#/Vol] 3.45 10*6/uL Low 3.80-5.00 [facility] Comment on above: Performed By: #### L [id number] #### [facility] ([facility]) [address] [place] [address] WBC (Bld) [#/Vol] 10.58 10*3/uL Normal 4.00-10.60 [facility] Comment on above: Performed By: #### L [id number] #### [facility] ([facility]) [address] [place] [address] COMPREHENSIVE METABOLIC PANE Dean 08-24-2024 Albumin [Mass/Vol] 2.5 g/dL Low 3.5-5.7 [facility] Comment on above: Performed By: #### L [id number] #### [facility] ([facility]) [address] [place] [address] ALP [Catalytic activity/Vol] 130 U/L High 34-104 [facility] Comment on above: Performed By: #### L [id number] #### [facility] ([facility]) [address] [place] [address] ALT [Catalytic activity/Vol] 4 U/L Low 7-52 [facility] Comment on above: Performed By: #### L [id number] #### [facility] ([facility]) [address] [place] [address] Anion gap [Moles/Vol] 11 mmol/L Normal 7-20 [facility] Comment on above: Performed By: #### L [id number] #### [facility] ([facility]) [address] [place] [address] AST [Catalytic activity/Vol] 11 U/L Low 13-39 [facility] Comment on above: Performed By: #### L [id number] #### [facility] ([facility]) [address] [place] [address] Bilirubin [Mass/Vol] 0.4 mg/dL Normal 0.3-1.0 [facility] Comment on above: Performed By: #### L [id number] #### [facility] ([facility]) [address] [place] [address] Calcium [Mass/Vol] 8.1 mg/dL Low 8.6-10.3 [facility] Comment on above: Performed By: #### L [id number] #### [facility] ([facility]) [address] [place] [address] Chloride [Moles/Vol] 100 mmol/L Normal 98-107 [facility] Comment on above: Performed By: #### L [id number] #### [facility] ([facility]) [address] [place] [address] CO2 [Moles/Vol] 32 mmol/L High 21-31 [facility] Comment on above: Performed By: #### L [id number] #### [facility] ([facility]) [address] [place] [address] Creatinine [Mass/Vol] 0.76 mg/dL Normal 0.60-1.20 [facility] Comment on above: Performed By: #### L [id number] #### [facility] ([facility]) [address] [facility] [place] [address] GLOMERULAR FILTRATION RATE ML/MIN/1.73 SQ M.PREDICTED 88.5 mL/min/1.73m*2 Normal >60.0 [facility] Comment on above: Result Comment: [facility]???s estimated glomerular filtration rate (eGFR) will no longer include consideration of race in its calculation. The National Kidney Foundation???s eGFR Task Force developed new recommendations for [...] disproportionately affect any one group of individuals. Performed By: #### L [id number] #### [facility] ([facility]) [address] [place] [address] Glucose [Mass/Vol] 180 mg/dL High 70-100 [facility] Comment on above: Performed By: #### L [id number] #### [facility] ([facility]) [address] [place] [address] Potassium [Moles/Vol] 3.7 mmol/L Normal 3.5-5.1 [facility] Comment on above: Performed By: #### L [id number] #### [facility] ([facility]) [address] [place] [address] Protein [Mass/Vol] 6.0 g/dL Normal 6.0-8.3 [facility] Comment on above: Performed By: #### L [id number] #### [facility] ([facility]) [address] [facility] [place] [address] Sodium [Moles/Vol] 139 mmol/L Normal 136-145 [facility] Comment on above: Performed By: #### L [id number] #### [facility] ([facility]) [address] [place] [address] Urea nitrogen [Mass/Vol] 15 mg/dL Normal 7-25 [facility] Comment on above: Performed By: #### L [id number] #### [facility] ([facility]) [address] [place] [address] UREA NITROGEN/CREATININE (MASS RATIO) IN SER/PLAS 19.7 Normal [facility] Comment on above: Performed By: #### L [id number] #### [facility] ([facility]) [address] [place] [address] MAGNESIUMon 08-24-2024 Magnesium [Mass/Vol] 2.3 mg/dL Normal 1.9-2.7 [facility] Comment on above: Performed By: #### L [id number] #### [facility] ([facility]) [address] [place] [address] BASIC METABOLIC PANELon 08-13 Anion gap [Moles/Vol] 10 mmol/L Normal 7-20 [facility] Comment on above: Performed By: #### L [id number] #### [facility] ([facility]) [address] [place] [address] Calcium [Mass/Vol] 7.9 mg/dL Low 8.6-10.3 [facility] Comment on above: Performed By: #### L [id number] #### [facility] ([facility]) [address] [place] [address] Chloride [Moles/Vol] 103 mmol/L Normal 98-107 [facility] Comment on above: Performed By: #### L [id number] #### [facility] ([facility]) [address] [place] [address] CO2 [Moles/Vol] 32 mmol/L High 21-31 [facility] Comment on above: Performed By: #### L [id number] #### [facility] ([facility]) [address] [place] [address] Creatinine [Mass/Vol] 1.02 mg/dL Normal 0.60-1.20 [facility] Comment on above: Performed By: #### L [id number] #### [facility] ([facility]) [address] [place] [address] GLOMERULAR FILTRATION RATE ML/MIN/1.73 SQ M.PREDICTED 62.2 mL/min/1.73m*2 Normal >60.0 [facility] Comment on above: Result Comment: [facility]???s estimated glomerular filtration rate (eGFR) will no longer include consideration of race in its calculation. The National Kidney Foundation???s eGFR Task Force developed new recommendations for [...] disproportionately affect any one group of individuals. Performed By: #### L [id number] #### [facility] ([facility]) [address] [place] [address] Glucose [Mass/Vol] 148 mg/dL High 70-100 [facility] Comment on above: Performed By: #### L [id number] #### [facility] ([facility]) [address] [place] [address] Potassium [Moles/Vol] 3.8 mmol/L Normal 3.5-5.1 [facility] Comment on above: Performed By: #### L [id number] #### [facility] ([facility]) [address] [facility] [place] [address] Sodium [Moles/Vol] 141 mmol/L Normal 136-145 [facility] Comment on above: Performed By: #### L [id number] #### [facility] ([facility]) [address] [place] [address] Urea nitrogen [Mass/Vol] 17 mg/dL Normal 7-25 [facility] Comment on above: Performed By: #### L [id number] #### [facility] ([facility]) [address] [place] [address] UREA NITROGEN/CREATININE (MASS RATIO) IN SER/PLAS 16.7 Normal [facility] Comment on above: Performed By: #### L [id number] #### [facility] ([facility]) [address] [place] [address] CBC WITH AUTO DIFFERENTIALon 08-23-2024 Basophils (Bld) [#/Vol] 0.06 10*3/uL Normal 0.00-0.20 [facility] Comment on above: Performed By: #### L [id number] #### [facility] ([facility]) [address] [place] [address] Basophils/100 WBC (Bld) 0.5 % Normal 0.0-1.0 [facility] Comment on above: Performed By: #### L [id number] #### [facility] ([facility]) [address] [place] [address] Eosinophils (Bld) [#/Vol] 0.18 10*3/uL Normal 0.00-0.50 [facility] Comment on above: Performed By: #### L [id number] #### [facility] ([facility]) [address] [place] [address] Eosinophils/100 WBC (Bld) 1.6 % Normal 0.0-6.0 [facility] Comment on above: Performed By: #### L [id number] #### [facility] ([facility]) [address] [place] [address] Erythrocyte distribution width (RBC) [Ratio] 14.9 % Normal 11.5-15.0 [facility] Comment on above: Performed By: #### L [id number] #### [facility] ([facility]) [address] [place] [address] ERYTHROCYTE MEAN CORPUSCULAR HEMOGLOBIN CONCENTRATION (G/DL) BY AUTOMATED 31.2 g/dL Low 32.0-35.0 [facility] Comment on above: Performed By: #### L [id number] #### [facility] ([facility]) [address] [place] [address] Hematocrit (Bld) [Volume fraction] 31.7 % Low 36.0-45.0 [facility] Comment on above: Performed By: #### L [id number] #### [facility] (BEAKER) [address] [place] [address] Hemoglobin (Bld) [Mass/Vol] 9.9 g/dL Low 12.0-15.0 [facility] Comment on above: Performed By: #### L [id number] #### [facility] ([facility]) [address] [address] Immature granulocytes (Bld) [#/Vol] 0.04 10*3/uL Normal 0.00-0.20 [facility] Comment on above: Performed By: #### L [id number] #### [facility] ([facility]) [address] [place] [address] Immature granulocytes/100 WBC (Bld) 0.4 % Normal 0.0-1.0 [facility] Comment on above: Performed By: #### L [id number] #### [facility] ([facility]) [address] [place] [address] Lymphocytes (Bld) [#/Vol] 2.47 10*3/uL Normal 1.20-4.00 [facility] Comment on above: Performed By: #### L [id number] #### [facility] ([facility]) [address] [address] Lymphocytes/100 WBC (Bld) 22.3 % Normal 20.0-45.0 [facility] Comment on above: Performed By: #### L [id number] #### [facility] ([facility]) [address] [address] MCH (RBC) [Entitic mass] 29.8 pg Normal 27.0-33.0 [facility] Comment on above: Performed By: #### L [id number] #### [facility] (BEAKER) [address] [address] MCV (RBC) [Entitic vol] 95.5 fL Normal 82.0-98.[address] [facility] Comment on above: Performed By: #### L [id number] #### [facility] ([facility]) [address] [place] [address] Monocytes (Bld) [#/Vol] 1.07 10*3/uL High 0.10-1.00 [facility] Comment on above: Performed By: #### L [id number] #### [facility] ([facility]) [address] [place] [address] Monocytes/100 WBC (Bld) 9.7 % Normal 5.0-12.[address] [facility] Comment on above: Performed By: #### L [id number] #### [facility] ([facility]) [address] [place] [address] Neutrophils (Bld) [#/Vol] 7.26 10*3/uL Normal 1.60-7.60 [facility] Comment on above: Performed By: #### L [id number] #### [facility] ([facility]) [address] [place] [address] Neutrophils/100 WBC (Bld) 65.5 % Normal 40.0-72.0 [facility] Comment on above: Performed By: #### L [id number] #### [facility] ([facility]) [address] [place] [address] NRBC (PER 100 WBCS) BY AUTOMATED COUNT 0.0 % Normal 0 [facility] Comment on above: Performed By: #### L [id number] #### [facility] ([facility]) [address] [place] [address] PLATELETS (10*3/UL) IN BLOOD AUTOMATED COUNT 408 10*3/uL High 150-400 [facility] Comment on above: Performed By: #### L [id number] #### [facility] ([facility]) [address] [place] [address] RBC (Bld) [#/Vol] 3.32 10*6/uL Low 3.80-5.00 [facility] Comment on above: Performed By: #### L [id number] #### [facility] ([facility]) [address] [place] [address] WBC (Bld) [#/Vol] 11.08 10*3/uL High 4.00-10.60 [facility] Comment on above: Performed By: #### L [id number] #### [facility] ([facility]) [address] [place] [address] MAGNESIUMon 08-23-2024 Magnesium [Mass/Vol] 1.8 mg/dL Low 1.9-2.7 [facility] Comment on above: Performed By: #### L [id number] #### [facility] ([facility]) [address] [place] [address] CBC WITH AUTO DIFFERENTIALon 08-21-2024 Basophils (Bld) [#/Vol] 0.07 10*3/uL Normal 0.00-0.20 [facility] Comment on above: Performed By: #### L [id number] #### [facility] ([facility]) [address] [place] [address] Basophils/100 WBC (Bld) 0.7 % Normal 0.0-1.0 [facility] Comment on above: Performed By: #### L [id number] #### [facility] ([facility]) [address] [place] [address] Eosinophils (Bld) [#/Vol] 0.28 10*3/uL Normal 0.00-0.50 [facility] Comment on above: Performed By: #### L [id number] #### [facility] ([facility]) [address] [place] [address] Eosinophils/100 WBC (Bld) 2.7 % Normal 0.0-6.0 [facility] Comment on above: Performed By: #### L [id number] #### [facility] ([facility]) [address] [place] [address] Erythrocyte distribution width (RBC) [Ratio] 15.1 % High 11.5-15.0 [facility] Comment on above: Performed By: #### L [id number] #### [facility] ([facility]) [address] [place] [address] ERYTHROCYTE MEAN CORPUSCULAR HEMOGLOBIN CONCENTRATION (G/DL) BY AUTOMATED 31.3 g/dL Low 32.0-35.0 [facility] Comment on above: Performed By: #### L [id number] #### [facility] ([facility]) [address] [place] [address] Hematocrit (Bld) [Volume fraction] 33.2 % Low 36.0-45.0 [facility] Comment on above: Performed By: #### L [id number] #### [facility] ([facility]) [address] [place] [address] Hemoglobin (Bld) [Mass/Vol] 10.4 g/dL Low 12.0-15.0 [facility] Comment on above: Performed By: #### L [id number] #### [facility] ([facility]) [address] [place] [address] Immature granulocytes (Bld) [#/Vol] 0.03 10*3/uL Normal 0.00-0.20 [facility] Comment on above: Performed By: #### L [id number] #### [facility] (BEAKER) [address] [place] [address] Immature granulocytes/100 WBC (Bld) 0.3 % Normal 0.0-1.0 [facility] Comment on above: Performed By: #### L [id number] #### [facility] ([facility]) [address] [place] [address] Lymphocytes (Bld) [#/Vol] 2.32 10*3/uL Normal 1.20-4.00 [facility] Comment on above: Performed By: #### L [id number] #### [facility] ([facility]) [address] [place] [address] Lymphocytes/100 WBC (Bld) 22.3 % Normal 20.0-45.0 [facility] Comment on above: Performed By: #### L [id number] #### [facility] ([facility]) [address] [place] [address] MCH (RBC) [Entitic mass] 29.9 pg Normal 27.0-33.0 [facility] Comment on above: Performed By: #### L [id number] #### [facility] ([facility]) [address] [place] [address] MCV (RBC) [Entitic vol] 95.4 fL Normal 82.0-98.[address] [facility] Comment on above: Performed By: #### L [id number] #### [facility] ([facility]) [address] [place] [address] Monocytes (Bld) [#/Vol] 1.07 10*3/uL High 0.10-1.00 [facility] Comment on above: Performed By: #### L [id number] #### [facility] ([facility]) [address] [place] [address] Monocytes/100 WBC (Bld) 10.3 % Normal 5.0-12.[address] [facility] Comment on above: Performed By: #### L [id number] #### [facility] ([facility]) [address] [place] [address] Neutrophils (Bld) [#/Vol] 6.63 10*3/uL Normal 1.60-7.60 [facility] Comment on above: Performed By: #### L [id number] #### [facility] ([facility]) [address] [place] [address] Neutrophils/100 WBC (Bld) 63.7 % Normal 40.0-72.0 [facility] Comment on above: Performed By: #### L [id number] #### [facility] ([facility]) [address] [place] [address] NRBC (PER 100 WBCS) BY AUTOMATED COUNT 0.0 % Normal 0 [facility] Comment on above: Performed By: #### L [id number] #### [facility] ([facility]) [address] [place] [address] PLATELETS (10*3/UL) IN BLOOD AUTOMATED COUNT 429 10*3/uL High 150-400 [facility] Comment on above: Performed By: #### L [id number] #### [facility] ([facility]) [address] [place] [address] RBC (Bld) [#/Vol] 3.48 10*6/uL Low 3.80-5.00 [facility] Comment on above: Performed By: #### L [id number] #### [facility] ([facility]) [address] [place] [address] WBC (Bld) [#/Vol] 10.40 10*3/uL Normal 4.00-10.60 [facility] Comment on above: Performed By: #### L [id number] #### [facility] ([facility]) [address] [place] [address] COMPREHENSIVE METABOLIC PANE Dean 08-21-2024 Albumin [Mass/Vol] 2.5 g/dL Low 3.5-5.7 [facility] Comment on above: Performed By: #### L [id number] #### [facility] ([facility]) [address] [place] [address] ALP [Catalytic activity/Vol] 115 U/L High 34-104 [facility] Comment on above: Performed By: #### L [id number] #### [facility] ([facility]) [address] [place] [address] ALT [Catalytic activity/Vol] 4 U/L Low 7-52 [facility] Comment on above: Performed By: #### L [id number] #### [facility] ([facility]) [address] [place] [address] Anion gap [Moles/Vol] 10 mmol/L Normal 7-20 [facility] Comment on above: Performed By: #### L [id number] #### [facility] ([facility]) [address] [place] [address] AST [Catalytic activity/Vol] 13 U/L Normal 13-39 [facility] Comment on above: Performed By: #### L [id number] #### [facility] (BEAKER) [address] [place] [address] Bilirubin [Mass/Vol] 0.3 mg/dL Normal 0.3-1.0 [facility] Comment on above: Performed By: #### L [id number] #### [facility] ([facility]) [address] [place] [address] Calcium [Mass/Vol] 8.0 mg/dL Low 8.6-10.3 [facility] Comment on above: Performed By: #### L [id number] #### [facility] ([facility]) [address] [place] [address] Chloride [Moles/Vol] 105 mmol/L Normal 98-107 [facility] Comment on above: Performed By: #### L [id number] #### [facility] ([facility]) [address] [place] [address] CO2 [Moles/Vol] 31 mmol/L Normal 21-31 [facility] Comment on above: Performed By: #### L [id number] #### [facility] ([facility]) [address] [place] [address] Creatinine [Mass/Vol] 0.73 mg/dL Normal 0.60-1.20 [facility] Comment on above: Performed By: #### L [id number] #### [facility] ([facility]ER) [address] [place] [address] GLOMERULAR FILTRATION RATE ML/MIN/1.73 SQ M.PREDICTED 92.9 mL/min/1.73m*2 Normal >60.0 [facility] Comment on above: Result Comment: The [facility]???s estimated glomerular filtration rate (eGFR) will no longer include consideration of race in its calculation. The National Kidney Foundation???s eGFR Task Force developed new recommendations for [...] disproportionately affect any one group of individuals. Performed By: #### L [id number] #### [facility] ([facility]) [address] [place] [address] Glucose [Mass/Vol] 121 mg/dL High 70-100 [facility] Comment on above: Performed By: #### L [id number] #### [facility] ([facility]) [address] [place] [address] Potassium [Moles/Vol] 3.9 mmol/L Normal 3.5-5.1 [facility] Comment on above: Performed By: #### L [id number] #### [facility] ([facility]) [address] [place] [address] Protein [Mass/Vol] 5.9 g/dL Low 6.0-8.3 [facility] Comment on above: Performed By: #### L [id number] #### [facility] ([facility]) [address] [place] [address] Sodium [Moles/Vol] 142 mmol/L Normal 136-145 [facility] Comment on above: Performed By: #### L [id number] #### [facility] ([facility]) [address] [place] [address] Urea nitrogen [Mass/Vol] 12 mg/dL Normal 7-25 [facility] Comment on above: Performed By: #### L [id number] #### [facility] ([facility]) [address] [place] [address] UREA NITROGEN/CREATININE (MASS RATIO) IN SER/PLAS 16.4 Normal [facility] Comment on above: Performed By: #### L [id number] #### [facility] ([facility]) [address] [place] [address] MAGNESIUMon 08-21-2024 Magnesium [Mass/Vol] 1.7 mg/dL Low 1.9-2.7 [facility] Comment on above: Performed By: #### L [id number] #### [facility] (BEAKER) [address] [place] [address] PHOSPHORUSon 08-21-2024 Magnesium [Mass/Vol] 2.2 mg/dL Low 2.5-5.0 [facility] Comment on above: Performed By: #### L [id number] #### [facility] ([facility]ER) [address] [place] [address] PROCALCITONIN TESTon 025 PROCALCITONIN IN BLOOD 0.15 ng/mL High 0.00-0.10 [facility] Comment on above: Result Comment: Susp ected Lower Respiratory Tract Infection: 0.1-0.25 ng/mL - [...] hours if clinically indicated and initial PCT<0.5ng/mL Performed By: #### L [id number] #### [facility] ([facility]) [address] [facility] [place] [address] Cult,Funguson 08-19-2024 Cult,Fungus Specimen Description .BUTTOCK, LEFT Direct Exam NO FUNGAL ELEMENTS SEEN Culture NO GROWTH 30 DAYS Report Status FINAL 08/19/2024 Normal [facility] Comment on above: Performed By: #### I OCAL, MG, CDP, QUINN, BMPX #### [facility] [address] [place] [address] [employer] Operator: Juan Bauman MD CBCon 08-17-2024 Erythrocyte distribution width (RBC) [Ratio] 15.4 % High 11.5-15.0 [facility] Comment on above: Performed By: #### L [id number] #### [facility] (BEAKER) [address] [facility] [place] [address] ERYTHROCYTE MEAN CORPUSCULAR HEMOGLOBIN CONCENTRATION (G/DL) BY AUTOMATED 31.0 g/dL Low 32.0-35.0 [facility] Comment on above: Performed By: #### L [id number] #### [facility] (BEAKER) [address] [place] [address] Hematocrit (Bld) [Volume fraction] 29.7 % Low 36.0-45.0 [facility] Comment on above: Performed By: #### L [id number] #### [facility] (BEAKER) [address] [place] [address] Hemoglobin (Bld) [Mass/Vol] 9.2 g/dL Low 12.0-15.0 [facility] Comment on above: Performed By: #### L [id number] #### [facility] (BE[facility]ER) [address] [facility] [place] [address] MCH (RBC) [Entitic mass] 29.5 pg Normal 27.0-33.0 [facility] Comment on above: Performed By: #### L [id number] #### [facility] ([facility]) [address] [place] [address] MCV (RBC) [Entitic vol] 95.2 fL Normal 82.0-98.[address] [facility] Comment on above: Performed By: #### L [id number] #### [facility] ([facility]) [address] [place] [address] PLATELETS (10*3/UL) IN BLOOD AUTOMATED COUNT 495 10*3/uL High 150-400 [facility] Comment on above: Performed By: #### L [id number] #### [facility] ([facility]) [address] [place] [address] RBC (Bld) [#/Vol] 3.12 10*6/uL Low 3.80-5.00 [facility] Comment on above: Performed By: #### L [id number] #### [facility] ([facility]) [address] [place] [address] WBC (Bld) [#/Vol] 7.87 10*3/uL Normal 4.00-10.60 [facility] Comment on above: Performed By: #### L [id number] #### [facility] ([facility]) [address] [place] [address] COMPREHENSIVE METABOLIC PANE Dean 08-17-2024 Albumin [Mass/Vol] 2.4 g/dL Low 3.5-5.7 [facility] Comment on above: Performed By: #### L [id number] #### [facility] ([facility]) [address] [place] [address] ALP [Catalytic activity/Vol] 117 U/L High 34-104 [facility] Comment on above: Performed By: #### L [id number] #### [facility] ([facility]) [address] [place] [address] ALT [Catalytic activity/Vol] 6 U/L Low 7-52 [facility] Comment on above: Performed By: #### L [id number] #### [facility] ([facility]) [address] [place] [address] Anion gap [Moles/Vol] 9 mmol/L Normal 7-20 [facility] Comment on above: Performed By: #### L [id number] #### [facility] ([facility]) [address] [place] [address] AST [Catalytic activity/Vol] 14 U/L Normal 13-39 [facility] Comment on above: Performed By: #### L [id number] #### [facility] ([facility]) [address] [place] [address] Bilirubin [Mass/Vol] 0.3 mg/dL Normal 0.3-1.0 [facility] Comment on above: Performed By: #### L [id number] #### [facility] ([facility]) [address] [place] [address] Calcium [Mass/Vol] 7.9 mg/dL Low 8.6-10.3 [facility] Comment on above: Performed By: #### L [id number] #### [facility] ([facility]) [address] [place] [address] Chloride [Moles/Vol] 103 mmol/L Normal 98-107 [facility] Comment on above: Performed By: #### L [id number] #### [facility] ([facility]) [address] [place] [address] CO2 [Moles/Vol] 34 mmol/L High 21-31 [facility] Comment on above: Performed By: #### L [id number] #### [facility] ([facility]) [address] [place] [address] Creatinine [Mass/Vol] 0.81 mg/dL Normal 0.60-1.20 [facility] Comment on above: Performed By: #### L [id number] #### [facility] ([facility]) [address] [place] [address] GLOMERULAR FILTRATION RATE ML/MIN/1.73 SQ M.PREDICTED 82.0 mL/min/1.73m*2 Normal >60.0 [facility] Comment on above: Result Comment: [facility]???s estimated glomerular filtration rate (eGFR) will no longer include consideration of race in its calculation. The National Kidney Foundation???s eGFR Task Force developed new recommendations for [...] disproportionately affect any one group of individuals. Performed By: #### L [id number] #### [facility] ([facility]) [address] [place] [address] Glucose [Mass/Vol] 100 mg/dL Normal 70-100 [facility] Comment on above: Performed By: #### L [id number] #### [facility] ([facility]) [address] [place] [address] Potassium [Moles/Vol] 4.0 mmol/L Normal 3.5-5.1 [facility] Comment on above: Performed By: #### L [id number] #### [facility] ([facility]) [address] [place] [address] Protein [Mass/Vol] 5.6 g/dL Low 6.0-8.3 [facility] Comment on above: Performed By: #### L [id number] #### [facility] ([facility]) [address] [place] [address] Sodium [Moles/Vol] 142 mmol/L Normal 136-145 [facility] Comment on above: Performed By: #### L [id number] #### [facility] ([facility]) [address] [place] [address] Urea nitrogen [Mass/Vol] 9 mg/dL Normal 7-25 [facility] Comment on above: Performed By: #### L [id number] #### [facility] ([facility]) [address] [place] [address] UREA NITROGEN/CREATININE (MASS RATIO) IN SER/PLAS 11.1 Normal [facility] Comment on above: Performed By: #### L [id number] #### [facility] (BEAKER) [address] [place] [address] BASIC METABOLIC PANELon 07-0 Anion gap [Moles/Vol] 11 mmol/L Normal 7-20 [facility] Comment on above: Performed By: #### L [id number] #### [facility] ([facility]) [address] [place] [address] Calcium [Mass/Vol] 8.1 mg/dL Low 8.6-10.3 [facility] Comment on above: Performed By: #### L [id number] #### [facility] ([facility]) [address] [place] [address] Chloride [Moles/Vol] 101 mmol/L Normal 98-107 [facility] Comment on above: Performed By: #### L [id number] #### [facility] ([facility]) [address] [place] [address] CO2 [Moles/Vol] 33 mmol/L High 21-31 [facility] Comment on above: Performed By: #### L [id number] #### [facility] ([facility]) [address] [place] [address] Creatinine [Mass/Vol] 0.75 mg/dL Normal 0.60-1.20 [facility] Comment on above: Performed By: #### L [id number] #### [facility] ([facility]) [address] [place] [address] GLOMERULAR FILTRATION RATE ML/MIN/1.73 SQ M.PREDICTED 90.0 mL/min/1.73m*2 Normal >60.0 [facility] Comment on above: Result Comment: The [facility]???s estimated glomerular filtration rate (eGFR) will no longer include consideration of race in its calculation. The [employer]???s eGFR Task Force developed new recommendations for [...] disproportionately affect any one group of individuals. Performed By: #### L [id number] #### [facility] ([facility]) [address] [place] [address] Glucose [Mass/Vol] 126 mg/dL High 70-100 [facility] Comment on above: Performed By: #### L [id number] #### [facility] ([facility]) [address] [place] [address] Potassium [Moles/Vol] 3.5 mmol/L Normal 3.5-5.1 [facility] Comment on above: Performed By: #### L [id number] #### [facility] ([facility]) [address] [place] [address] Sodium [Moles/Vol] 141 mmol/L Normal 136-145 [facility] Comment on above: Performed By: #### L [id number] #### [facility] ([facility]) [address] [place] [address] Urea nitrogen [Mass/Vol] 9 mg/dL Normal 7-25 [facility] Comment on above: Performed By: #### L [id number] #### [facility] ([facility]) [address] [place] [address] UREA NITROGEN/CREATININE (MASS RATIO) IN SER/PLAS 12.0 Normal [facility] Comment on above: Performed By: #### L [id number] #### [facility] ([facility]) [address] [place] [address] CBCon 08-14-2024 Erythrocyte distribution width (RBC) [Ratio] 15.2 % High 11.5-15.0 [facility] Comment on above: Performed By: #### L [id number] #### [facility] ([facility]) [address] [place] [address] ERYTHROCYTE MEAN CORPUSCULAR HEMOGLOBIN CONCENTRATION (G/DL) BY AUTOMATED 30.7 g/dL Low 32.0-35.0 [facility] Comment on above: Performed By: #### L [id number] #### [facility] ([facility]) [address] [place] [address] Hematocrit (Bld) [Volume fraction] 30.6 % Low 36.0-45.0 [facility] Comment on above: Performed By: #### L [id number] #### [facility] ([facility]) [address] [place] [address] Hemoglobin (Bld) [Mass/Vol] 9.4 g/dL Low 12.0-15.0 [facility] Comment on above: Performed By: #### L [id number] #### [facility] ([facility]) [address] [place] [address] MCH (RBC) [Entitic mass] 29.4 pg Normal 27.0-33.0 [facility] Comment on above: Performed By: #### L [id number] #### [facility] ([facility]) [address] [place] [address] MCV (RBC) [Entitic vol] 95.6 fL Normal 82.0-98.[address] [facility] Comment on above: Performed By: #### L [id number] #### [facility] ([facility]) [address] [place] [address] PLATELETS (10*3/UL) IN BLOOD AUTOMATED COUNT 556 10*3/uL High 150-400 [facility] Comment on above: Performed By: #### L [id number] #### [facility] ([facility]) [address] [place] [address] RBC (Bld) [#/Vol] 3.20 10*6/uL Low 3.80-5.00 [facility] Comment on above: Performed By: #### L [id number] #### [facility] ([facility]) [address] [place] [address] WBC (Bld) [#/Vol] 8.39 10*3/uL Normal 4.00-10.60 [facility] Comment on above: Performed By: #### L [id number] #### [facility] ([facility]) [address] [place] [address] BASIC METABOLIC PANELon 06-3 0-2024 Anion gap [Moles/Vol] 10 mmol/L Normal 7-20 [facility] Comment on above: Performed By: #### L [id number] ####[facility] ([facility])[address] [place] [address] Calcium [Mass/Vol] 8.1 mg/dL Low 8.6-10.3 [facility] Comment on above: Performed By: #### L [id number] ####[facility] ([facility])[address] [place] [address] Chloride [Moles/Vol] 104 mmol/L Normal 98-107 [facility] Comment on above: Performed By: #### L [id number] ####[facility] ([facility])[address] [place] [address] CO2 [Moles/Vol] 33 mmol/L High 21-31 [facility] Comment on above: Performed By: #### L [id number] ####[facility] ([facility])[address] [place] [address] Creatinine [Mass/Vol] 0.76 mg/dL Normal 0.60-1.20 [facility] Comment on above: Performed By: #### L [id number] ####[facility] ([facility])[address] [place] [address] GLOMERULAR FILTRATION RATE ML/MIN/1.73 SQ M.PREDICTED 88.5 mL/min/1.73m*2 Normal >60.0 [facility] Comment on above: Result Comment: The [facility]???s estimated glomerular filtration rate (eGFR) will no longer include consideration of race in its calculation. The National Kidney Foundation???s eGFR Task Force developed new recommendations for [...] disproportionately affect any one group of individuals. Performed By: #### L [id number] ####[facility] ([facility])[address] [place] [address] Glucose [Mass/Vol] 67 mg/dL Low 70-100 [facility] Comment on above: Performed By: #### L [id number] ####[facility] ([facility])[address] [place] [address] Potassium [Moles/Vol] 3.5 mmol/L Normal 3.5-5.1 [facility] Comment on above: Performed By: #### L [id number] ####[facility] ([facility])[address] [place] [address] Sodium [Moles/Vol] 143 mmol/L Normal 136-145 [facility] Comment on above: Performed By: #### L [id number] ####[facility] ([facility])[address] [place] [address] Urea nitrogen [Mass/Vol] 9 mg/dL Normal 7-25 [facility] Comment on above: Performed By: #### L [id number] ####[facility] ([facility])[address] [place] [address] UREA NITROGEN/CREATININE (MASS RATIO) IN SER/PLAS 11.8 Normal [facility] Comment on above: Performed By: #### L [id number] ####[facility] ([facility])[address] [place] [address] CBCon 08-12-2024 Erythrocyte distribution width (RBC) [Ratio] 15.2 % High 11.5-15.0 [facility] Comment on above: Performed By: #### L [id number] #### [facility] ([facility]) [address] [place] [address] ERYTHROCYTE MEAN CORPUSCULAR HEMOGLOBIN CONCENTRATION (G/DL) BY AUTOMATED 31.0 g/dL Low 32.0-35.0 [facility] Comment on above: Performed By: #### L [id number] #### [facility] ([facility]) [address] [place] [address] Hematocrit (Bld) [Volume fraction] 29.0 % Low 36.0-45.0 [facility] Comment on above: Performed By: #### L [id number] #### [facility] ([facility]) [address] [place] [address] Hemoglobin (Bld) [Mass/Vol] 9.0 g/dL Low 12.0-15.0 [facility] Comment on above: Performed By: #### L [id number] #### [facility] ([facility]) [address] [place] [address] MCH (RBC) [Entitic mass] 29.7 pg Normal 27.0-33.0 [facility] Comment on above: Performed By: #### L [id number] #### [facility] ([facility]) [address] [place] [address] MCV (RBC) [Entitic vol] 95.7 fL Normal 82.0-98.[address] [facility] Comment on above: Performed By: #### L [id number] #### [facility] ([facility]) [address] [place] [address] PLATELETS (10*3/UL) IN BLOOD AUTOMATED COUNT 579 10*3/uL High 150-400 [facility] Comment on above: Performed By: #### L [id number] #### [facility] ([facility]) [address] [place] [address] RBC (Bld) [#/Vol] 3.03 10*6/uL Low 3.80-5.00 [facility] Comment on above: Performed By: #### L [id number] #### [facility] ([facility]) [address] [place] [address] WBC (Bld) [#/Vol] 8.85 10*3/uL Normal 4.00-10.60 [facility] Comment on above: Performed By: #### L [id number] #### [facility] ([facility]) [address] [place] [address] CBC WITH AUTO DIFFERENTIALon 08-12-2024 Basophils (Bld) [#/Vol] 0.05 10*3/uL Normal 0.00-0.20 [facility] Comment on above: Performed By: #### L [id number] #### [facility] ([facility]) [address] [address] Basophils/100 WBC (Bld) 0.6 % Normal 0.0-1.0 [facility] Comment on above: Performed By: #### L [id number] #### [facility] ([facility]) [address] [place] [address] Eosinophils (Bld) [#/Vol] 0.27 10*3/uL Normal 0.00-0.50 [facility] Comment on above: Performed By: #### L [id number] #### [facility] ([facility]) [address] [place] [address] Eosinophils/100 WBC (Bld) 3.0 % Normal 0.0-6.0 [facility] Comment on above: Performed By: #### L [id number] #### [facility] ([facility]) [address] [place] [address] Erythrocyte distribution width (RBC) [Ratio] 15.4 % High 11.5-15.0 [facility] Comment on above: Performed By: #### L [id number] #### [facility] ([facility]) [address] [place] [address] ERYTHROCYTE MEAN CORPUSCULAR HEMOGLOBIN CONCENTRATION (G/DL) BY AUTOMATED 30.0 g/dL Low 32.0-35.0 [facility] Comment on above: Performed By: #### L [id number] #### [facility] ([facility]) [address] [place] [address] Hematocrit (Bld) [Volume fraction] 29.7 % Low 36.0-45.0 [facility] Comment on above: Performed By: #### L [id number] #### [facility] ([facility]) [address] [place] [address] Hemoglobin (Bld) [Mass/Vol] 8.9 g/dL Low 12.0-15.0 [facility] Comment on above: Performed By: #### L [id number] #### [facility] ([facility]) [address] [place] [address] Immature granulocytes (Bld) [#/Vol] 0.07 10*3/uL Normal 0.00-0.20 [facility] Comment on above: Performed By: #### L [id number] #### [facility] ([facility]) [address] [place] [address] Immature granulocytes/100 WBC (Bld) 0.8 % Normal 0.0-1.0 [facility] Comment on above: Performed By: #### L [id number] #### [facility] ([facility]) [address] [place] [address] Lymphocytes (Bld) [#/Vol] 2.41 10*3/uL Normal 1.20-4.00 [facility] Comment on above: Performed By: #### L [id number] #### [facility] ([facility]) [address] [place] [address] Lymphocytes/100 WBC (Bld) 26.7 % Normal 20.0-45.0 [facility] Comment on above: Performed By: #### L [id number] #### [facility] ([facility]) [address] [place] [address] MCH (RBC) [Entitic mass] 29.3 pg Normal 27.0-33.0 [facility] Comment on above: Performed By: #### L [id number] #### [facility] ([facility]) [address] [place] [address] MCV (RBC) [Entitic vol] 97.7 fL Normal 82.0-98.[address] [facility] Comment on above: Performed By: #### L [id number] #### [facility] ([facility]) [address] [place] [address] Monocytes (Bld) [#/Vol] 0.89 10*3/uL Normal 0.10-1.00 [facility] Comment on above: Performed By: #### L [id number] #### [facility] ([facility]) [address] [place] [address] Monocytes/100 WBC (Bld) 9.8 % Normal 5.0-12.0 [facility] Comment on above: Performed By: #### L [id number] #### [facility] ([facility]) [address] [place] [address] Neutrophils (Bld) [#/Vol] 5.35 10*3/uL Normal 1.60-7.60 [facility] Comment on above: Performed By: #### L [id number] #### [facility] ([facility]) [address] [place] [address] Neutrophils/100 WBC (Bld) 59.1 % Normal 40.0-72.0 [facility] Comment on above: Performed By: #### L [id number] #### [facility] ([facility]) [address] [place] [address] NRBC (PER 100 WBCS) BY AUTOMATED COUNT 0.0 % Normal 0 [facility] Comment on above: Performed By: #### L [id number] #### [facility] ([facility]) [address] [place] [address] PLATELETS (10*3/UL) IN BLOOD AUTOMATED COUNT 627 10*3/uL High 150-400 [facility] Comment on above: Performed By: #### L [id number] #### [facility] ([facility]) [address] [place] [address] RBC (Bld) [#/Vol] 3.04 10*6/uL Low 3.80-5.00 [facility] Comment on above: Performed By: #### L [id number] #### [facility] ([facility]) [address] [place] [address] WBC (Bld) [#/Vol] 9.04 10*3/uL Normal 4.00-10.60 [facility] Comment on above: Performed By: #### L [id number] #### [facility] ([facility]) [address] [place] [address] MAGNESIUMon 08-12-2024 Magnesium [Mass/Vol] 2.1 mg/dL Normal 1.9-2.7 [facility] Comment on above: Performed By: #### L [id number] #### [facility] ([facility]) [address] [place] [address] BASIC METABOLIC PANELon 07-15 Anion gap [Moles/Vol] 13 mmol/L Normal 7-20 [facility] Comment on above: Performed By: #### L [id number] #### [facility] ([facility]) [address] [place] [address] Calcium [Mass/Vol] 7.9 mg/dL Low 8.6-10.3 [facility] Comment on above: Performed By: #### L [id number] #### [facility] ([facility]) [address] [place] [address] Chloride [Moles/Vol] 104 mmol/L Normal 98-107 [facility] Comment on above: Performed By: #### L [id number] #### [facility] ([facility]) [address] [place] [address] CO2 [Moles/Vol] 27 mmol/L Normal 21-31 [facility] Comment on above: Performed By: #### L [id number] #### [facility] ([facility]) [address] [place] [address] Creatinine [Mass/Vol] 0.91 mg/dL Normal 0.60-1.20 [facility] Comment on above: Performed By: #### L [id number] #### [facility] ([facility]) [address] [place] [address] GLOMERULAR FILTRATION RATE ML/MIN/1.73 SQ M.PREDICTED 71.3 mL/min/1.73m*2 Normal >60.0 [facility] Comment on above: Result Comment: [facility]???s estimated glomerular filtration rate (eGFR) will no longer include consideration of race in its calculation. The National Kidney Foundation???s eGFR Task Force developed new recommendations for [...] disproportionately affect any one group of individuals. Performed By: #### L [id number] #### [facility] ([facility]) [address] [place] [address] Glucose [Mass/Vol] 119 mg/dL High 70-100 [facility] Comment on above: Performed By: #### L [id number] #### [facility] ([facility]) [address] [place] [address] Potassium [Moles/Vol] 3.7 mmol/L Normal 3.5-5.1 [facility] Comment on above: Performed By: #### L [id number] #### [facility] ([facility]) [address] [place] [address] Sodium [Moles/Vol] 140 mmol/L Normal 136-145 [facility] Comment on above: Performed By: #### L [id number] #### [facility] ([facility]) [address] [place] [address] Urea nitrogen [Mass/Vol] 9 mg/dL Normal 7-25 [facility] Comment on above: Performed By: #### L [id number] #### [facility] ([facility]) [address] [place] [address] UREA NITROGEN/CREATININE (MASS RATIO) IN SER/PLAS 9.9 Normal [facility] Comment on above: Performed By: #### L [id number] #### [facility] ([facility]) [address] [place] [address] CBC WITH AUTO DIFFERENTIALon 08-11-2024 Basophils (Bld) [#/Vol] 0.08 10*3/uL Normal 0.00-0.20 [facility] Comment on above: Performed By: #### L [id number] #### [facility] ([facility]) [address] [place] [address] Basophils/100 WBC (Bld) 1.2 % High 0.0-1.0 [facility] Comment on above: Performed By: #### L [id number] #### [facility] ([facility]) [address] [place] [address] Eosinophils (Bld) [#/Vol] 0.22 10*3/uL Normal 0.00-0.50 [facility] Comment on above: Performed By: #### L [id number] #### [facility] ([facility]) [address] [place] [address] Eosinophils/100 WBC (Bld) 3.2 % Normal 0.0-6.0 [facility] Comment on above: Performed By: #### L [id number] #### [facility] ([facility]) [address] [place] [address] Erythrocyte distribution width (RBC) [Ratio] 15.1 % High 11.5-15.0 [facility] Comment on above: Performed By: #### L [id number] #### [facility] ([facility]) [address] [place] [address] ERYTHROCYTE MEAN CORPUSCULAR HEMOGLOBIN CONCENTRATION (G/DL) BY AUTOMATED 29.7 g/dL Low 32.0-35.0 [facility] Comment on above: Performed By: #### L [id number] #### [facility] ([facility]) [address] [place] [address] Hematocrit (Bld) [Volume fraction] 34.0 % Low 36.0-45.0 [facility] Comment on above: Performed By: #### L [id number] #### [facility] ([facility]) [address] [place] [address] Hemoglobin (Bld) [Mass/Vol] 10.1 g/dL Low 12.0-15.0 [facility] Comment on above: Performed By: #### L [id number] #### [facility] ([facility]) [address] [place] [address] Immature granulocytes (Bld) [#/Vol] 0.10 10*3/uL Normal 0.00-0.20 [facility] Comment on above: Performed By: #### L [id number] #### [facility] ([facility]) [address] [place] [address] Immature granulocytes/100 WBC (Bld) 1.5 % High 0.0-1.0 [facility] Comment on above: Performed By: #### L [id number] #### [facility] ([facility]) [address] [place] [address] Lymphocytes (Bld) [#/Vol] 2.39 10*3/uL Normal 1.20-4.00 [facility] Comment on above: Performed By: #### L [id number] #### [facility] ([facility]) [address] [place] [address] Lymphocytes/100 WBC (Bld) 35.0 % Normal 20.0-45.0 [facility] Comment on above: Performed By: #### L [id number] #### [facility] ([facility]) [address] [place] [address] MCH (RBC) [Entitic mass] 29.8 pg Normal 27.0-33.0 [facility] Comment on above: Performed By: #### L [id number] #### [facility] ([facility]) [address] [place] [address] MCV (RBC) [Entitic vol] 100.3 fL High 82.0-98.[address] [facility] Comment on above: Performed By: #### L [id number] #### [facility] ([facility]) [address] [place] [address] Monocytes (Bld) [#/Vol] 0.70 10*3/uL Normal 0.10-1.00 [facility] Comment on above: Performed By: #### L [id number] #### [facility] ([facility]) [address] [place] [address] Monocytes/100 WBC (Bld) 10.3 % Normal 5.0-12.[address] [facility] Comment on above: Performed By: #### L [id number] #### [facility] ([facility]) [address] [place] [address] Neutrophils (Bld) [#/Vol] 3.33 10*3/uL Normal 1.60-7.60 [facility] Comment on above: Performed By: #### L [id number] #### [facility] ([facility]) [address] [place] [address] Neutrophils/100 WBC (Bld) 48.8 % Normal 40.0-72.0 [facility] Comment on above: Performed By: #### L [id number] #### [facility] ([facility]) [address] [place] [address] NRBC (PER 100 WBCS) BY AUTOMATED COUNT 0.0 % Normal 0 [facility] Comment on above: Performed By: #### L [id number] #### [facility] ([facility]) [address] [place] [address] PLATELETS (10*3/UL) IN BLOOD AUTOMATED COUNT 493 10*3/uL High 150-400 [facility] Comment on above: Performed By: #### L [id number] #### [facility] ([facility]) [address] [place] [address] RBC (Bld) [#/Vol] 3.39 10*6/uL Low 3.80-5.00 [facility] Comment on above: Performed By: #### L [id number] #### [facility] ([facility]) [address] [place] [address] WBC (Bld) [#/Vol] 6.82 10*3/uL Normal 4.00-10.60 [facility] Comment on above: Performed By: #### L [id number] #### [facility] ([facility]) [address] [place] [address] MAGNESIUMon 08-11-2024 Magnesium [Mass/Vol] 1.5 mg/dL Low 1.9-2.7 [facility] Comment on above: Performed By: #### L [id number] #### [facility] ([facility]) [address] [place] [address] BASIC METABOLIC PANELon 07-15 Anion gap [Moles/Vol] 11 mmol/L Normal 7-20 [facility] Comment on above: Performed By: #### L [id number] #### [facility] ([facility]) [address] [place] [address] Calcium [Mass/Vol] 7.7 mg/dL Low 8.6-10.3 [facility] Comment on above: Performed By: #### L [id number] #### [facility] ([facility]) [address] [place] [address] Chloride [Moles/Vol] 103 mmol/L Normal 98-107 [facility] Comment on above: Performed By: #### L [id number] #### [facility] ([facility]) [address] [place] [address] CO2 [Moles/Vol] 31 mmol/L Normal 21-31 [facility] Comment on above: Performed By: #### L [id number] #### [facility] ([facility]) [address] [place] [address] Creatinine [Mass/Vol] 0.70 mg/dL Normal 0.60-1.20 [facility] Comment on above: Performed By: #### L [id number] #### [facility] ([facility]) [address] [place] [address] GLOMERULAR FILTRATION RATE ML/MIN/1.73 SQ M.PREDICTED 97.7 mL/min/1.73m*2 Normal >60.0 [facility] Comment on above: Result Comment: The [facility]???s estimated glomerular filtration rate (eGFR) will no longer include consideration of race in its calculation. The [employer]???s eGFR Task Force developed new recommendations for [...] disproportionately affect any one group of individuals. Performed By: #### L [id number] #### [facility] ([facility]) [address] [place] [address] Glucose [Mass/Vol] 153 mg/dL High 70-100 [facility] Comment on above: Performed By: #### L [id number] #### [facility] ([facility]) [address] [place] [address] Potassium [Moles/Vol] 3.7 mmol/L Normal 3.5-5.1 [facility] Comment on above: Performed By: #### L [id number] #### [facility] ([facility]) [address] [place] [address] Sodium [Moles/Vol] 141 mmol/L Normal 136-145 [facility] Comment on above: Performed By: #### L [id number] #### [facility] ([facility]) [address] [place] [address] Urea nitrogen [Mass/Vol] 11 mg/dL Normal 7-25 [facility] Comment on above: Performed By: #### L [id number] #### [facility] ([facility]) [address] [place] [address] UREA NITROGEN/CREATININE (MASS RATIO) IN SER/PLAS 15.7 Normal [facility] Comment on above: Performed By: #### L [id number] #### [facility] ([facility]) [address] [place] [address] CBC WITH AUTO DIFFERENTIALon 06-26-2025 Basophils (Bld) [#/Vol] 0.05 10*3/uL Normal 0.00-0.20 [facility] Comment on above: Performed By: #### L [id number] ####[facility] (BEAKER)[address] [place] [address] Basophils/100 WBC (Bld) 0.8 % Normal 0.0-1.0 [facility] Comment on above: Performed By: #### L [id number] ####[facility] (BEAKER)[address] [place] [address] Eosinophils (Bld) [#/Vol] 0.17 10*3/uL Normal 0.00-0.50 [facility] Comment on above: Performed By: #### L [id number] ####[facility] (BEAKER)[address] [place] [address] Eosinophils/100 WBC (Bld) 2.7 % Normal 0.0-6.0 [facility] Comment on above: Performed By: #### L [id number] ####[facility] (BEAKER)[address] [place] [address] Erythrocyte distribution width (RBC) [Ratio] 15.1 % High 11.5-15.0 [facility] Comment on above: Performed By: #### L [id number] ####[facility] (BEAKER)[address] [place] [address] ERYTHROCYTE MEAN CORPUSCULAR HEMOGLOBIN CONCENTRATION (G/DL) BY AUTOMATED 30.8 g/dL Low 32.0-35.0 [facility] Comment on above: Performed By: #### L [id number] ####[facility] (BEAKER)[address] [place] [address] Hematocrit (Bld) [Volume fraction] 30.2 % Low 36.0-45.0 [facility] Comment on above: Performed By: #### L [id number] ####[facility] (BEAKER)[address] [place] [address] Hemoglobin (Bld) [Mass/Vol] 9.3 g/dL Low 12.0-15.0 [facility] Comment on above: Performed By: #### L [id number] ####[facility] (BEAKER)[address] [place] [address] Immature granulocytes (Bld) [#/Vol] 0.03 10*3/uL Normal 0.00-0.20 [facility] Comment on above: Performed By: #### L [id number] ####[facility] (BEAKER)[address] [place] [address] Immature granulocytes/100 WBC (Bld) 0.5 % Normal 0.0-1.0 [facility] Comment on above: Performed By: #### L [id number] ####[facility] (BEAKER)[address] [place] [address] Lymphocytes (Bld) [#/Vol] 1.83 10*3/uL Normal 1.20-4.00 [facility] Comment on above: Performed By: #### L [id number] ####[facility] (BEAKER)[address] [place] [address] Lymphocytes/100 WBC (Bld) 29.2 % Normal 20.0-45.0 [facility] Comment on above: Performed By: #### L [id number] ####[facility] (BEAKER)[address] [place] [address] MCH (RBC) [Entitic mass] 29.3 pg Normal 27.0-33.0 [facility] Comment on above: Performed By: #### L [id number] ####[facility] (BEAKER)[address] [place] [address] MCV (RBC) [Entitic vol] 95.3 fL Normal 82.0-98.[address] [facility] Comment on above: Performed By: #### L [id number] ####[facility] (BEAKER)[address] [place] [address] Monocytes (Bld) [#/Vol] 0.94 10*3/uL Normal 0.10-1.00 [facility] Comment on above: Performed By: #### L [id number] ####[facility] ([facility])[address] [place] [address] Monocytes/100 WBC (Bld) 15.0 % High 5.0-12.0 [facility] Comment on above: Performed By: #### L [id number] ####[facility] ([facility])[address] [place] [address] Neutrophils (Bld) [#/Vol] 3.25 10*3/uL Normal 1.60-7.60 [facility] Comment on above: Performed By: #### L [id number] ####[facility] ([facility])[address] [place] [address] Neutrophils/100 WBC (Bld) 51.8 % Normal 40.0-72.0 [facility] Comment on above: Performed By: #### L [id number] ####[facility] ([facility])[address] [place] [address] NRBC (PER 100 WBCS) BY AUTOMATED COUNT 0.0 % Normal 0 [facility] Comment on above: Performed By: #### L [id number] ####[facility] ([facility])[address] [place] [address] PLATELETS (10*3/UL) IN BLOOD AUTOMATED COUNT 535 10*3/uL High 150-400 [facility] Comment on above: Performed By: #### L [id number] ####[facility] ([facility])[address] [place] [address] RBC (Bld) [#/Vol] 3.17 10*6/uL Low 3.80-5.00 [facility] Comment on above: Performed By: #### L [id number] ####[facility] (BEAKER)[address] [place] [address] WBC (Bld) [#/Vol] 6.27 10*3/uL Normal 4.00-10.60 [facility] Comment on above: Performed By: #### L [id number] ####[facility] ([facility])[address] [place] [address] MAGNESIUMon 08-08-2024 Magnesium [Mass/Vol] 1.9 mg/dL Normal 1.9-2.7 [facility] Comment on above: Performed By: #### L [id number] #### [facility] ([facility]) [address] [place] [address] AMMONIAon 08-07-2024 AMMONIA (UMOL/L) IN PLASMA 33 umol/L Normal 18-72 [facility] Comment on above: Performed By: #### L [id number] #### [facility] ([facility]) [address] [place] [address] CBC WITH AUTO DIFFERENTIALon 08-07-2024 Basophils (Bld) [#/Vol] 0.05 10*3/uL Normal 0.00-0.20 [facility] Comment on above: Performed By: #### L [id number] #### [facility] ([facility]) [address] [place] [address] Basophils/100 WBC (Bld) 0.8 % Normal 0.0-1.0 [facility] Comment on above: Performed By: #### L [id number] #### [facility] ([facility]) [address] [place] [address] Eosinophils (Bld) [#/Vol] 0.14 10*3/uL Normal 0.00-0.50 [facility] Comment on above: Performed By: #### L [id number] #### [facility] ([facility]) [address] [place] [address] Eosinophils/100 WBC (Bld) 2.4 % Normal 0.0-6.0 [facility] Comment on above: Performed By: #### L [id number] #### [facility] ([facility]) [address] [place] [address] Erythrocyte distribution width (RBC) [Ratio] 15.2 % High 11.5-15.0 [facility] Comment on above: Performed By: #### L [id number] #### [facility] ([facility]) [address] [place] [address] ERYTHROCYTE MEAN CORPUSCULAR HEMOGLOBIN CONCENTRATION (G/DL) BY AUTOMATED 30.5 g/dL Low 32.0-35.0 [facility] Comment on above: Performed By: #### L [id number] #### [facility] ([facility]) [address] [place] [address] Hematocrit (Bld) [Volume fraction] 31.8 % Low 36.0-45.0 [facility] Comment on above: Performed By: #### L [id number] #### [facility] ([facility]) [address] [place] [address] Hemoglobin (Bld) [Mass/Vol] 9.7 g/dL Low 12.0-15.0 [facility] Comment on above: Performed By: #### L [id number] #### [facility] (BEAKER) [address] [place] [address] Immature granulocytes (Bld) [#/Vol] 0.02 10*3/uL Normal 0.00-0.20 [facility] Comment on above: Performed By: #### L [id number] #### [facility] (BEAKER) [address] [place] [address] Immature granulocytes/100 WBC (Bld) 0.3 % Normal 0.0-1.0 [facility] Comment on above: Performed By: #### L [id number] #### [facility] (BEAKER) [address] [place] [address] Lymphocytes (Bld) [#/Vol] 1.76 10*3/uL Normal 1.20-4.00 [facility] Comment on above: Performed By: #### L [id number] #### [facility] (BEAKER) [address] [place] [address] Lymphocytes/100 WBC (Bld) 29.8 % Normal 20.0-45.0 [facility] Comment on above: Performed By: #### L [id number] #### [facility] ([facility]) [address] [place] [address] MCH (RBC) [Entitic mass] 29.6 pg Normal 27.0-33.0 [facility] Comment on above: Performed By: #### L [id number] #### [facility] ([facility]) [address] [place] [address] MCV (RBC) [Entitic vol] 97.0 fL Normal 82.0-98.[address] [facility] Comment on above: Performed By: #### L [id number] #### [facility] ([facility]) [address] [place] [address] Monocytes (Bld) [#/Vol] 1.00 10*3/uL Normal 0.10-1.00 [facility] Comment on above: Performed By: #### L [id number] #### [facility] ([facility]) [address] [place] [address] Monocytes/100 WBC (Bld) 16.9 % High 5.0-12.[address] [facility] Comment on above: Performed By: #### L [id number] #### [facility] ([facility]) [address] [place] [address] Neutrophils (Bld) [#/Vol] 2.94 10*3/uL Normal 1.60-7.60 [facility] Comment on above: Performed By: #### L [id number] #### [facility] ([facility]) [address] [place] [address] Neutrophils/100 WBC (Bld) 49.8 % Normal 40.0-72.0 [facility] Comment on above: Performed By: #### L [id number] #### [facility] ([facility]) [address] [place] [address] NRBC (PER 100 WBCS) BY AUTOMATED COUNT 0.0 % Normal 0 [facility] Comment on above: Performed By: #### L [id number] #### [facility] ([facility]) [address] [place] [address] PLATELETS (10*3/UL) IN BLOOD AUTOMATED COUNT 420 10*3/uL High 150-400 [facility] Comment on above: Performed By: #### L [id number] #### [facility] ([facility]) [address] [place] [address] RBC (Bld) [#/Vol] 3.28 10*6/uL Low 3.80-5.00 [facility] Comment on above: Performed By: #### L [id number] #### [facility] ([facility]) [address] [place] [address] WBC (Bld) [#/Vol] 5.91 10*3/uL Normal 4.00-10.60 [facility] Comment on above: Performed By: #### L [id number] #### [facility] ([facility]) [address] [place] [address] COMPREHENSIVE METABOLIC PANE [facility] 08-07-2024 Albumin [Mass/Vol] 2.3 g/dL Low 3.5-5.7 [facility] Comment on above: Performed By: #### L [id number] #### [facility] ([facility]) [address] [place] [address] ALP [Catalytic activity/Vol] 115 U/L High 34-104 [facility] Comment on above: Performed By: #### L [id number] #### [facility] ([facility]) [address] [place] [address] ALT [Catalytic activity/Vol] 8 U/L Normal 7-52 [facility] Comment on above: Performed By: #### L [id number] #### [facility] ([facility]) [address] [place] [address] Anion gap [Moles/Vol] 10 mmol/L Normal 7-20 [facility] Comment on above: Performed By: #### L [id number] #### [facility] ([facility]) [address] [place] [address] AST [Catalytic activity/Vol] 30 U/L Normal 13-39 [facility] Comment on above: Result Comment: M-CH EMISTRY SPECIMEN MODERATELY HEMOLYZED RESULTS MAY NOT BE ACCURATE Performed By: #### L [id number] #### [facility] (BEAKER) [address] [place] [address] Bilirubin [Mass/Vol] 0.4 mg/dL Normal 0.3-1.0 [facility] Comment on above: Performed By: #### L [id number] #### [facility] ([facility]) [address] [place] [address] Calcium [Mass/Vol] 7.8 mg/dL Low 8.6-10.3 [facility] Comment on above: Performed By: #### L [id number] #### [facility] ([facility]) [address] [place] [address] Chloride [Moles/Vol] 105 mmol/L Normal 98-107 [facility] Comment on above: Performed By: #### L [id number] #### [facility] ([facility]) [address] [place] [address] CO2 [Moles/Vol] 29 mmol/L Normal 21-31 [facility] Comment on above: Performed By: #### L [id number] #### [facility] ([facility]) [address] [place] [address] Creatinine [Mass/Vol] 0.73 mg/dL Normal 0.60-1.20 [facility] Comment on above: Performed By: #### L [id number] #### [facility] ([facility]) [address] [place] [address] GLOMERULAR FILTRATION RATE ML/MIN/1.73 SQ M.PREDICTED 92.9 mL/min/1.73m*2 Normal >60.0 [facility] Comment on above: Result Comment: The [facility]???s estimated glomerular filtration rate (eGFR) will no longer include consideration of race in its calculation. The National Kidney Foundation???s eGFR Task Force developed new recommendations for [...] disproportionately affect any one group of individuals. Performed By: #### L [id number] #### [facility] ([facility]) [address] [place] [address] Glucose [Mass/Vol] 85 mg/dL Normal 70-100 [facility] Comment on above: Performed By: #### L [id number] #### [facility] ([facility]) [address] [place] [address] Potassium [Moles/Vol] 4.3 mmol/L Normal 3.5-5.1 [facility] Comment on above: Result Comment: M-CH EMISTRY SPECIMEN MODERATELY HEMOLYZED RESULTS MAY NOT BE ACCURATE Performed By: #### L [id number] #### [facility] ([facility]) [address] [place] [address] Protein [Mass/Vol] 5.6 g/dL Low 6.0-8.3 [facility] Comment on above: Performed By: #### L [id number] #### [facility] ([facility]) [address] [place] [address] Sodium [Moles/Vol] 140 mmol/L Normal 136-145 [facility] Comment on above: Performed By: #### L [id number] #### [facility] ([facility]) [address] [place] [address] Urea nitrogen [Mass/Vol] 10 mg/dL Normal 7-25 [facility] Comment on above: Performed By: #### L [id number] #### [facility] ([facility]) [address] [place] [address] UREA NITROGEN/CREATININE (MASS RATIO) IN SER/PLAS 13.7 Normal [facility] Comment on above: Performed By: #### L [id number] #### [facility] ([facility]) [address] [place] [address] MAGNESIUMon 08-07-2024 Magnesium [Mass/Vol] 1.5 mg/dL Low 1.9-2.7 [facility] Comment on above: Performed By: #### L [id number] #### [facility] (BEAKER) [address] [place] [address] PHOSPHORUSon 08-07-2024 Magnesium [Mass/Vol] 3.4 mg/dL Normal 2.5-5.0 [facility] Comment on above: Performed By: #### L [id number] #### [facility] ([facility]) [address] [place] [address] AMMONIAon 08-06-2024 AMMONIA (UMOL/L) IN PLASMA 40 umol/L Normal 18-72 [facility] Comment on above: Performed By: #### L [id number] #### [facility] ([facility]) [address] [place] [address] CBCon 08-06-2024 Erythrocyte distribution width (RBC) [Ratio] 15.1 % High 11.5-15.0 [facility] Comment on above: Performed By: #### L [id number] ####[facility] ([facility])[address] [place] [address] ERYTHROCYTE MEAN CORPUSCULAR HEMOGLOBIN CONCENTRATION (G/DL) BY AUTOMATED 30.2 g/dL Low 32.0-35.0 [facility] Comment on above: Performed By: #### L [id number] ####[facility] ([facility])[address] [place] [address] Hematocrit (Bld) [Volume fraction] 28.8 % Low 36.0-45.0 [facility] Comment on above: Performed By: #### L [id number] ####[facility] (BEAKER)[address] [place] [address] Hemoglobin (Bld) [Mass/Vol] 8.7 g/dL Low 12.0-15.0 [facility] Comment on above: Performed By: #### L [id number] ####[facility] ([facility])[address] [place] [address] MCH (RBC) [Entitic mass] 29.5 pg Normal 27.0-33.0 [facility] Comment on above: Performed By: #### L [id number] ####[facility] ([facility])[address] [place] [address] MCV (RBC) [Entitic vol] 97.6 fL Normal 82.0-98.[address] [facility] Comment on above: Performed By: #### L [id number] ####[facility] ([facility])[address] [place] [address] PLATELETS (10*3/UL) IN BLOOD AUTOMATED COUNT 476 10*3/uL High 150-400 [facility] Comment on above: Performed By: #### L [id number] ####[facility] ([facility])[address] [place] [address] RBC (Bld) [#/Vol] 2.95 10*6/uL Low 3.80-5.00 [facility] Comment on above: Performed By: #### L [id number] ####[facility] ([facility])[address] [place] [address] WBC (Bld) [#/Vol] 7.33 10*3/uL Normal 4.00-10.60 [facility] Comment on above: Performed By: #### L [id number] ####[facility] ([facility])[address] [place] [address] COMPREHENSIVE METABOLIC PANE [facility] 08-06-2024 Albumin [Mass/Vol] 2.4 g/dL Low 3.5-5.7 [facility] Comment on above: Performed By: #### L [id number] #### [facility] ([facility]) [address] [place] [address] ALP [Catalytic activity/Vol] 104 U/L Normal 34-104 [facility] Comment on above: Performed By: #### L [id number] #### [facility] (BEAKER) [address] [place] [address] ALT [Catalytic activity/Vol] 9 U/L Normal 7-52 [facility] Comment on above: Performed By: #### L [id number] #### [facility] (BEAKER) [address] [place] [address] Anion gap [Moles/Vol] 9 mmol/L Normal 7-20 [facility] Comment on above: Performed By: #### L [id number] #### [facility] ([facility]) [address] [place] [address] AST [Catalytic activity/Vol] 21 U/L Normal 13-39 [facility] Comment on above: Performed By: #### L [id number] #### [facility] ([facility]) [address] [place] [address] Bilirubin [Mass/Vol] 0.3 mg/dL Normal 0.3-1.0 [facility] Comment on above: Performed By: #### L [id number] #### [facility] ([facility]) [address] [place] [address] Calcium [Mass/Vol] 7.6 mg/dL Low 8.6-10.3 [facility] Comment on above: Performed By: #### L [id number] #### [facility] ([facility]AKER) [address] [place] [address] Chloride [Moles/Vol] 106 mmol/L Normal 98-107 [facility] Comment on above: Performed By: #### L [id number] #### [facility] ([facility]) [address] [place] [address] CO2 [Moles/Vol] 31 mmol/L Normal 21-31 [facility] Comment on above: Performed By: #### L [id number] #### [facility] ([facility]AKER) [address] [place] [address] Creatinine [Mass/Vol] 0.82 mg/dL Normal 0.60-1.20 [facility] Comment on above: Performed By: #### L [id number] #### [facility] ([facility]) [address] [facility] [place] [address] GLOMERULAR FILTRATION RATE ML/MIN/1.73 SQ M.PREDICTED 80.8 mL/min/1.73m*2 Normal >60.0 [facility] Comment on above: Result Comment: [facility]???s estimated glomerular filtration rate (eGFR) will no longer include consideration of race in its calculation. The National Kidney Foundation???s eGFR Task Force developed new recommendations for [...] disproportionately affect any one group of individuals. Performed By: #### L [id number] #### [facility] ([facility]) [address] [place] [address] Glucose [Mass/Vol] 106 mg/dL High 70-100 [facility] Comment on above: Performed By: #### L [id number] #### [facility] ([facility]) [address] [place] [address] Potassium [Moles/Vol] 4.3 mmol/L Normal 3.5-5.1 [facility] Comment on above: Performed By: #### L [id number] #### [facility] ([facility]) [address] [place] [address] Protein [Mass/Vol] 5.9 g/dL Low 6.0-8.3 [facility] Comment on above: Performed By: #### L [id number] #### [facility] ([facility]) [address] [facility] [place] [address] Sodium [Moles/Vol] 142 mmol/L Normal 136-145 [facility] Comment on above: Performed By: #### L [id number] #### [facility] ([facility]) [address] [address] Urea nitrogen [Mass/Vol] 12 mg/dL Normal 7-25 [facility] Comment on above: Performed By: #### L [id number] #### [facility] ([facility]) [address] [address] UREA NITROGEN/CREATININE (MASS RATIO) IN SER/PLAS 14.6 Normal [facility] Comment on above: Performed By: #### L [id number] #### [facility] ([facility]) [address] [address] TSHon 08-06-2024 THYROTROPIN (MIU/L) IN SER/PLAS BY DETECTION LIMIT <= 0.05 MIU/L 5.55 mIU/L Normal 0.34-5.60 [facility] Comment on above: Performed By: #### L [id number] ####[facility] ([facility])[address] [place] [address] BLOOD CULTUREon 08-05-2024 Bacteria identified Cx Nom (Bld) No growth at [address] [facility] Comment on above: Performed By: #### L [id number] #### [facility] ([facility]) [address] [address] Bacteria identified Cx Nom (Bld) No growth at [address] [facility] Comment on above: Performed By: #### L [id number] #### [facility] ([facility]) [address] [place] [address] Bacteria identified Cx Nom (Bld) No growth at [address] [facility] Comment on above: Performed By: #### L [id number] #### [facility] ([facility]) [address], [place] [address] Bacteria identified Cx Nom (Bld) No growth at 5 days [facility] Comment on above: Performed By: #### L [id number] #### [facility] ([facility]) [address] [address] CBCon 08-05-2024 Erythrocyte distribution width (RBC) [Ratio] 15.3 % High 11.5-15.0 [facility] Comment on above: Performed By: #### L [id number] #### [facility] ([facility]) [address] [place] [address] ERYTHROCYTE MEAN CORPUSCULAR HEMOGLOBIN CONCENTRATION (G/DL) BY AUTOMATED 30.6 g/dL Low 32.0-35.0 [facility] Comment on above: Performed By: #### L [id number] #### [facility] LAB ([facility]) [address] [place] [address] Hematocrit (Bld) [Volume fraction] 24.2 % Low 36.0-45.0 [facility] Comment on above: Performed By: #### L [id number] #### [facility] ([facility]) [address] [place] [address] Hemoglobin (Bld) [Mass/Vol] 7.4 g/dL Low 12.0-15.0 [facility] Comment on above: Performed By: #### L [id number] #### [facility] ([facility]) [address] [place] [address] MCH (RBC) [Entitic mass] 29.5 pg Normal 27.0-33.0 [facility] Comment on above: Performed By: #### L [id number] #### [facility] ([facility]) [address] [place] [address] MCV (RBC) [Entitic vol] 96.4 fL Normal 82.0-98.[address] [facility] Comment on above: Performed By: #### L [id number] #### [facility] ([facility]) [address] [place] [address] PLATELETS (10*3/UL) IN BLOOD AUTOMATED COUNT 486 10*3/uL High 150-400 [facility] Comment on above: Performed By: #### L [id number] #### [facility] ([facility]) [address] [place] [address] RBC (Bld) [#/Vol] 2.51 10*6/uL Low 3.80-5.00 [facility] Comment on above: Performed By: #### L [id number] #### [facility] ([facility]) [address] [place] [address] WBC (Bld) [#/Vol] 6.60 10*3/uL Normal 4.00-10.60 [facility] Comment on above: Performed By: #### L [id number] #### [facility] ([facility]) [address] [place] [address] COMPREHENSIVE METABOLIC PANE Dean 08-05-2024 Albumin [Mass/Vol] 2.1 g/dL Low 3.5-5.7 [facility] Comment on above: Performed By: #### L [id number] ####[facility] ([facility])[address] [place] [address] ALP [Catalytic activity/Vol] 96 U/L Normal 34-104 [facility] Comment on above: Performed By: #### L [id number] ####[facility] ([facility])[address] [place] [address] ALT [Catalytic activity/Vol] 8 U/L Normal 7-52 [facility] Comment on above: Performed By: #### L [id number] ####[facility] ([facility])[address] [place] [address] Anion gap [Moles/Vol] 11 mmol/L Normal 7-20 [facility] Comment on above: Performed By: #### L [id number] ####[facility] ([facility])[address] [place] [address] AST [Catalytic activity/Vol] 15 U/L Normal 13-39 [facility] Comment on above: Performed By: #### L [id number] ####[facility] ([facility])[address] [place] [address] Bilirubin [Mass/Vol] 0.2 mg/dL Low 0.3-1.0 [facility] Comment on above: Performed By: #### L [id number] ####[facility] ([facility])[address] [place] [address] Calcium [Mass/Vol] 7.5 mg/dL Low 8.6-10.3 [facility] Comment on above: Performed By: #### L [id number] ####[facility] ([facility])[address] [place] [address] Chloride [Moles/Vol] 107 mmol/L Normal 98-107 [facility] Comment on above: Performed By: #### L [id number] ####[facility] ([facility])[address] [place] [address] CO2 [Moles/Vol] 29 mmol/L Normal 21-31 [facility] [place] [facility] Comment on above: Performed By: #### L [id number] ####[facility] ([facility])[address] [place] [address] Creatinine [Mass/Vol] 0.87 mg/dL Normal 0.60-1.20 [facility] Comment on above: Performed By: #### L [id number] ####[facility] ([facility])[address] [place] [address] GLOMERULAR FILTRATION RATE ML/MIN/1.73 SQ M.PREDICTED 75.3 mL/min/1.73m*2 Normal >60.0 [facility] Comment on above: Result Comment: The [facility]???s estimated glomerular filtration rate (eGFR) will no longer include consideration of race in its calculation. The National Kidney Foundation???s eGFR Task Force developed new recommendations for [...] disproportionately affect any one group of individuals. Performed By: #### L [id number] ####[facility] ([facility])[address] [place] [address] Glucose [Mass/Vol] 166 mg/dL High 70-100 [facility] Comment on above: Performed By: #### L [id number] ####[facility] ([facility])[address] [place] [address] Potassium [Moles/Vol] 3.7 mmol/L Normal 3.5-5.1 [facility] Comment on above: Performed By: #### L [id number] ####[facility] ([facility])[address] [place] [address] Protein [Mass/Vol] 5.4 g/dL Low 6.0-8.3 [facility] Comment on above: Performed By: #### L [id number] ####[facility] ([facility])[address] [place] [address] Sodium [Moles/Vol] 143 mmol/L Normal 136-145 [facility] Comment on above: Performed By: #### L [id number] ####[facility] ([facility])[address] [place] [address] Urea nitrogen [Mass/Vol] 12 mg/dL Normal 7-25 [facility] Comment on above: Performed By: #### L [id number] ####[facility] ([facility])[address] [place] [address] UREA NITROGEN/CREATININE (MASS RATIO) IN SER/PLAS 13.8 Normal [facility] Comment on above: Performed By: #### L [id number] ####[facility] ([facility])[address] [place] [address] PROCALCITONIN TESTon 025 PROCALCITONIN IN BLOOD 0.11 ng/mL High 0.00-0.10 [facility] Comment on above: Result Comment: Susp ected Lower Respiratory Tract Infection: 0.1-0.25 ng/mL - [...] hours if clinically indicated and initial PCT<0.5ng/mL Performed By: #### L [id number] #### [facility] ([facility]) [address] [place] [address] URINALYSISon 08-05-2024 BILIRUBIN, TOTAL PRESENCE IN URINE Negative Normal Negative [facility] Comment on above: Performed By: #### L [id number] #### [facility] ([facility]) [address] [place] [address] Clarity (U) Clear Normal Clear [facility] Comment on above: Performed By: #### L [id number] #### [facility] ([facility]) [address] [place] [address] Color (U) Light-Yellow Normal Colorless, Yellow, Light-Yello w [facility] Comment on above: Performed By: #### L [id number] #### [facility] ([facility]) [address] [place] [address] GLUCOSE (MG/DL) IN URINE Normal Normal Normal [facility] Comment on above: Performed By: #### L [id number] #### [facility] ([facility]) [address] [place] [address] HEMOGLOBIN PRESENCE IN URINE Small Abnormal Negative [facility] Comment on above: Performed By: #### L [id number] #### [facility] ([facility]) [address] [place] [address] Ketones Ql (U) Negative Normal Negative [facility] Comment on above: Performed By: #### L [id number] #### [facility] ([facility]) [address] [place] [address] LEUKOCYTE ESTERASE PRESENCE IN URINE BY TEST STRIP Small Abnormal Negative [facility] Comment on above: Performed By: #### L [id number] #### [facility] ([facility]) [address] [facility] [place] [address] NITRITE PRESENCE IN URINE Negative Normal Negative [facility] Comment on above: Performed By: #### L [id number] #### [facility] ([facility]) [address] [place] [address] pH (U) 6.0 [pH] Normal 5.0-8.0 [facility] Comment on above: Performed By: #### L [id number] #### [facility] ([facility]) [address] [place] [address] Protein (U) [Mass/Vol] 100 mg/dL Abnormal Negative [facility] Performed By: #### L [id number] #### [facility] ([facility]) [address] [place] [address] Specific gravity (U) [Rel density] 1.017 Normal 1.010-1.030 [facility] Comment on above: Performed By: #### L [id number] #### [facility] ([facility]) [address] [place] [address] UROBILINOGEN (MG/DL) IN URINE 2.0 mg/dL Abnormal Normal [facility] Comment on above: Performed By: #### L [id number] #### [facility] ([facility]) [address] [place] [address] URINALYSIS MICROSCOPICon MUCUS (#/LPF) IN URINE SEDIMENT Occasional Normal None Seen, Occasional, Few [facility] Comment on above: Performed By: #### L [id number] #### [facility] ([facility]) [address] [place] [address] RBC (#/HPF) IN URINE SEDIMENT 6-10 Abnormal None Seen, 0-2 [facility] Comment on above: Performed By: #### L [id number] #### [facility] ([facility]) [address] [place] [address] SQUAMOUS EPITHELIAL CELLS (#/LPF) IN URINE SEDIMENT Few Normal None Seen, Occasional, Few [facility] Comment on above: Performed By: #### L [id number] #### [facility] ([facility]) [address] [place] [address] WBC (LEUKOCYTE) (#/HPF) IN URINE SEDIMENT 21-50 Abnormal None Seen, 0-2 [facility] Comment on above: Performed By: #### L [id number] #### [facility] ([facility]) [address] [place] [address] YEAST, BUDDING (#/HPF) IN URINE Few Abnormal None Seen [facility] Comment on above: Performed By: #### L [id number] #### [facility] ([facility]) [address] [place] [address] URINE CULTURE, ROUTINEon Bacteria identified Cx Nom (U) PICROHANA JENIFFER Abnormal [facility] Comment on above: Result Comment: 10,0 00 - 50,000 CFU/Ml Pichia kuiavzevii Chasity krusei Performed By: #### L [id number] #### [facility] ([facility]) [address] [place] [address] WOUND CULTUREon 08-05-2024 Cefepime [Susc] 2 ug/ml Susceptible [facility] Comment on above: Order Comment: Verif y peg tube placement Performed By: #### L [id number] ####[facility] ([facility])[address] [place] [address] Ciprofloxacin [Susc] <=0.25 Susceptible [facility] Comment on above: Order Comment: Verif y peg tube placement Performed By: #### L [id number] ####[facility] ([facility])[address] [place] [address] levoFLOXacin [Susc] <=0.5 Susceptible [facility] Comment on above: Order Comment: Verif y peg tube placement Performed By: #### L [id number] ####[facility] ([facility])[address] [place] [address] Meropenem [Susc] <=0.5 Susceptible [facility] Comment on above: Order Comment: Verif y peg tube placement Performed By: #### L [id number] ####[facility] ([facility])[address] [place] [address] Piperacillin+Tazobactam [Susc] / Susceptible [facility] Comment on above: Order Comment: Verif y peg tube placement Performed By: #### L [id number] ####[facility] ([facility])[address] [place] [address] Tobramycin [Susc] <=2 Susceptible [facility] Comment on above: Order Comment: Verif y peg tube placement Performed By: #### L [id number] ####[facility] ([facility])[address] [place] [address] BASIC METABOLIC PANELon 06-2 Anion gap [Moles/Vol] 10 mmol/L Normal 7-20 [facility] Comment on above: Performed By: #### L [id number] #### [facility] ([facility]) [address] [place] [address] Calcium [Mass/Vol] 7.7 mg/dL Low 8.6-10.3 [facility] Comment on above: Performed By: #### L [id number] #### [facility] ([facility]) [address] [place] [address] Chloride [Moles/Vol] 106 mmol/L Normal 98-107 [facility] Comment on above: Performed By: #### L [id number] #### [facility] ([facility]) [address] [place] [address] CO2 [Moles/Vol] 29 mmol/L Normal 21-31 [facility] Comment on above: Performed By: #### L [id number] #### [facility] ([facility]) [address] [place] [address] Creatinine [Mass/Vol] 0.72 mg/dL Normal 0.60-1.20 [facility] Comment on above: Performed By: #### L [id number] #### [facility] ([facility]) [address] [place] [address] GLOMERULAR FILTRATION RATE ML/MIN/1.73 SQ M.PREDICTED 94.5 mL/min/1.73m*2 Normal >60.0 [facility] Comment on above: Result Comment: The [facility]???s estimated glomerular filtration rate (eGFR) will no longer include consideration of race in its calculation. The National Kidney Foundation???s eGFR Task Force developed new recommendations for [...] disproportionately affect any one group of individuals. Performed By: #### L [id number] #### [facility] ([facility]) [address] [place] [address] Glucose [Mass/Vol] 110 mg/dL High 70-100 [facility] Comment on above: Performed By: #### L [id number] #### [facility] ([facility]) [address] [place] [address] Potassium [Moles/Vol] 3.6 mmol/L Normal 3.5-5.1 [facility] Comment on above: Performed By: #### L [id number] #### [facility] ([facility]) [address] [place] [address] Sodium [Moles/Vol] 141 mmol/L Normal 136-145 [facility] Comment on above: Performed By: #### L [id number] #### [facility] ([facility]) [address] [place] [address] Urea nitrogen [Mass/Vol] 9 mg/dL Normal 7-25 [facility] Comment on above: Performed By: #### L [id number] #### [facility] ([facility]) [address] [place] [address] UREA NITROGEN/CREATININE (MASS RATIO) IN SER/PLAS 12.5 Normal [facility] Comment on above: Performed By: #### L [id number] #### [facility] ([facility]) [address] [place] [address] CBCon 08-03-2024 Erythrocyte distribution width (RBC) [Ratio] 14.7 % Normal 11.5-15.0 [facility] Comment on above: Performed By: #### L [id number] #### [facility] ([facility]) [address] [place] [address] ERYTHROCYTE MEAN CORPUSCULAR HEMOGLOBIN CONCENTRATION (G/DL) BY AUTOMATED 30.5 g/dL Low 32.0-35.0 [facility] Comment on above: Performed By: #### L [id number] #### [facility] ([facility]) [address] [place] [address] Hematocrit (Bld) [Volume fraction] 24.9 % Low 36.0-45.0 [facility] Comment on above: Performed By: #### L [id number] #### [facility] ([facility]) [address] [place] [address] Hemoglobin (Bld) [Mass/Vol] 7.6 g/dL Low 12.0-15.0 [facility] Comment on above: Performed By: #### L [id number] #### [facility] ([facility]) [address] [place] [address] MCH (RBC) [Entitic mass] 29.5 pg Normal 27.0-33.0 [facility] Comment on above: Performed By: #### L [id number] #### [facility] ([facility]) [address] [place] [address] MCV (RBC) [Entitic vol] 96.5 fL Normal 82.0-98.[address] [facility] Comment on above: Performed By: #### L [id number] #### [facility] ([facility]) [address] [place] [address] PLATELETS (10*3/UL) IN BLOOD AUTOMATED COUNT 609 10*3/uL High 150-400 [facility] Comment on above: Performed By: #### L [id number] #### [facility] ([facility]) [address] [place] [address] RBC (Bld) [#/Vol] 2.58 10*6/uL Low 3.80-5.00 [facility] Comment on above: Performed By: #### L [id number] #### [facility] ([facility]) [address] [place] [address] WBC (Bld) [#/Vol] 9.38 10*3/uL Normal 4.00-10.60 [facility] Comment on above: Performed By: #### L [id number] #### [facility] ([facility]) [address] [place] [address] BASIC METABOLIC PANELon 06- Anion gap [Moles/Vol] 8 mmol/L Normal 7-20 [facility] Comment on above: Performed By: #### L [id number] #### [facility] ([facility]) [address] [place] [address] Calcium [Mass/Vol] 7.8 mg/dL Low 8.6-10.3 [facility] Comment on above: Performed By: #### L [id number] #### [facility] ([facility]) [address] [place] [address] Chloride [Moles/Vol] 113 mmol/L High 98-107 [facility] Comment on above: Performed By: #### L [id number] #### [facility] ([facility]) [address] [place] [address] CO2 [Moles/Vol] 28 mmol/L Normal 21-31 [facility] Comment on above: Performed By: #### L [id number] #### [facility] ([facility]) [address] [place] [address] Creatinine [Mass/Vol] 0.59 mg/dL Low 0.60-1.20 [facility] Comment on above: Performed By: #### L [id number] #### [facility] ([facility]) [address] [place] [address] GLOMERULAR FILTRATION RATE ML/MIN/1.73 SQ M.PREDICTED 101.8 mL/min/1.73m*2 Normal >60.0 [facility] Comment on above: Result Comment: The [facility]???s estimated glomerular filtration rate (eGFR) will no longer include consideration of race in its calculation. The National Kidney Foundation???s eGFR Task Force developed new recommendations for [...] disproportionately affect any one group of individuals. Performed By: #### L [id number] #### [facility] ([facility]) [address] [place] [address] Glucose [Mass/Vol] 75 mg/dL Normal 70-100 [facility] Comment on above: Performed By: #### L [id number] #### [facility] ([facility]) [address] [place] [address] Potassium [Moles/Vol] 4.0 mmol/L Normal 3.5-5.1 [facility] Comment on above: Performed By: #### L [id number] #### [facility] ([facility]) [address] [place] [address] Sodium [Moles/Vol] 145 mmol/L Normal 136-145 [facility] Comment on above: Performed By: #### L [id number] #### [facility] ([facility]) [address] [place] [address] Urea nitrogen [Mass/Vol] 12 mg/dL Normal 7-25 [facility] Comment on above: Performed By: #### L [id number] #### [facility] ([facility]) [address] [place] [address] UREA NITROGEN/CREATININE (MASS RATIO) IN SER/PLAS 20.3 Normal [facility] Comment on above: Performed By: #### L [id number] #### [facility] ([facility]) [address] [place] [address] CBC WITH AUTO DIFFERENTIALon 07-31-2024 Basophils (Bld) [#/Vol] 0.04 10*3/uL Normal 0.00-0.20 [facility] Comment on above: Performed By: #### L [id number] #### [facility] ([facility]) [address] [place] [address] Basophils/100 WBC (Bld) 0.3 % Normal 0.0-1.0 [facility] Comment on above: Performed By: #### L [id number] #### [facility] ([facility]) [address] [facility] [place] [address] Eosinophils (Bld) [#/Vol] 0.15 10*3/uL Normal 0.00-0.50 [facility] Comment on above: Performed By: #### L [id number] #### [facility] ([facility]) [address] [place] [address] Eosinophils/100 WBC (Bld) 1.0 % Normal 0.0-6.0 [facility] Comment on above: Performed By: #### L [id number] #### [facility] ([facility]) [address] [facility] [place] [address] Erythrocyte distribution width (RBC) [Ratio] 14.6 % Normal 11.5-15.0 [facility] Comment on above: Performed By: #### L [id number] #### [facility] ([facility]) [address] [place] [address] ERYTHROCYTE MEAN CORPUSCULAR HEMOGLOBIN CONCENTRATION (G/DL) BY AUTOMATED 29.6 g/dL Low 32.0-35.0 [facility] Comment on above: Performed By: #### L [id number] #### [facility] ([facility]) [address] [place] [address] Hematocrit (Bld) [Volume fraction] 27.7 % Low 36.0-45.0 [facility] Comment on above: Performed By: #### L [id number] #### [facility] ([facility]) [address] [place] [address] Hemoglobin (Bld) [Mass/Vol] 8.2 g/dL Low 12.0-15.0 [facility] Comment on above: Performed By: #### L [id number] #### [facility] ([facility]) [address] [place] [address] Immature granulocytes (Bld) [#/Vol] 0.10 10*3/uL Normal 0.00-0.20 [facility] Comment on above: Performed By: #### L [id number] #### [facility] ([facility]) [address] [place] [address] Immature granulocytes/100 WBC (Bld) 0.7 % Normal 0.0-1.0 [facility] Comment on above: Performed By: #### L [id number] #### [facility] ([facility]) [address] [place] [address] Lymphocytes (Bld) [#/Vol] 1.63 10*3/uL Normal 1.20-4.00 [facility] Comment on above: Performed By: #### L [id number] #### [facility] ([facility]) [address] [place] [address] Lymphocytes/100 WBC (Bld) 11.1 % Low 20.0-45.0 [facility] Comment on above: Performed By: #### L [id number] #### [facility] ([facility]) [address] [place] [address] MCH (RBC) [Entitic mass] 29.4 pg Normal 27.0-33.0 [facility] Comment on above: Performed By: #### L [id number] #### [facility] ([facility]) [address] [place] [address] MCV (RBC) [Entitic vol] 99.3 fL High 82.0-98.[address] [facility] Comment on above: Performed By: #### L [id number] #### [facility] ([facility]) [address] [place] [address] Monocytes (Bld) [#/Vol] 1.01 10*3/uL High 0.10-1.00 [facility] Comment on above: Performed By: #### L [id number] #### [facility] ([facility]) [address] [place] [address] Monocytes/100 WBC (Bld) 6.9 % Normal 5.0-12.[address] [facility] Comment on above: Performed By: #### L [id number] #### [facility] ([facility]) [address] [place] [address] Neutrophils (Bld) [#/Vol] 11.78 10*3/uL High 1.60-7.60 [facility] Comment on above: Performed By: #### L [id number] #### [facility] ([facility]) [address] [place] [address] Neutrophils/100 WBC (Bld) 80.0 % High 40.0-72.0 [facility] Comment on above: Performed By: #### L [id number] #### [facility] ([facility]) [address] [place] [address] NRBC (PER 100 WBCS) BY AUTOMATED COUNT 0.0 % Normal 0 [facility] Comment on above: Performed By: #### L [id number] #### [facility] ([facility]) [address] [place] [address] PLATELETS (10*3/UL) IN BLOOD AUTOMATED COUNT 526 10*3/uL High 150-400 [facility] Comment on above: Performed By: #### L [id number] #### [facility] ([facility]) [address] [place] [address] RBC (Bld) [#/Vol] 2.79 10*6/uL Low 3.80-5.00 [facility] Comment on above: Performed By: #### L [id number] #### [facility] ([facility]) [address] [place] [address] WBC (Bld) [#/Vol] 14.71 10*3/uL High 4.00-10.60 [facility] Comment on above: Performed By: #### L [id number] #### [facility] ([facility]) [address] [place] [address] COMPREHENSIVE METABOLIC PANE [facility] 07-31-2024 Albumin [Mass/Vol] 2.6 g/dL Low 3.5-5.7 [facility] Comment on above: Performed By: #### L [id number] #### [facility] ([facility]) [address] [place] [address] ALP [Catalytic activity/Vol] 164 U/L High 34-104 [facility] Comment on above: Performed By: #### L [id number] #### [facility] ([facility]) [address] [place] [address] ALT [Catalytic activity/Vol] 9 U/L Normal 7-52 [facility] Comment on above: Performed By: #### L [id number] #### [facility] ([facility]) [address] [place] [address] Anion gap [Moles/Vol] 10 mmol/L Normal 7-20 [facility] Comment on above: Performed By: #### L [id number] #### [facility] ([facility]) [address] [place] [address] AST [Catalytic activity/Vol] 25 U/L Normal 13-39 [facility] Comment on above: Performed By: #### L [id number] #### [facility] ([facility]) [address] [place] [address] Bilirubin [Mass/Vol] 0.3 mg/dL Normal 0.3-1.0 [facility] Comment on above: Performed By: #### L [id number] #### [facility] ([facility]) [address] [place] [address] Calcium [Mass/Vol] 8.0 mg/dL Low 8.6-10.3 [facility] Comment on above: Performed By: #### L [id number] #### [facility] ([facility]) [address] [place] [address] Chloride [Moles/Vol] 114 mmol/L High 98-107 [facility] Comment on above: Performed By: #### L [id number] #### [facility] ([facility]) [address] [place] [address] CO2 [Moles/Vol] 25 mmol/L Normal 21-31 [facility] Comment on above: Performed By: #### L [id number] #### [facility] ([facility]) [address] [place] [address] Creatinine [Mass/Vol] 0.69 mg/dL Normal 0.60-1.20 [facility] Comment on above: Performed By: #### L [id number] #### [facility] ([facility]) [address] [place] [address] GLOMERULAR FILTRATION RATE ML/MIN/1.73 SQ M.PREDICTED 98.1 mL/min/1.73m*2 Normal >60.0 [facility] Comment on above: Result Comment: The [facility]???s estimated glomerular filtration rate (eGFR) will no longer include consideration of race in its calculation. The National Kidney Foundation???s eGFR Task Force developed new recommendations for [...] disproportionately affect any one group of individuals. Performed By: #### L [id number] #### [facility] ([facility]) [address] [place] [address] Glucose [Mass/Vol] 69 mg/dL Low 70-100 [facility] Comment on above: Performed By: #### L [id number] #### [facility] ([facility]) [address] [place] [address] Potassium [Moles/Vol] 5.5 mmol/L High 3.5-5.1 [facility] Comment on above: Performed By: #### L [id number] #### [facility] ([facility]) [address] [place] [address] Protein [Mass/Vol] 6.3 g/dL Normal 6.0-8.3 [facility] Comment on above: Performed By: #### L [id number] #### [facility] ([facility]) [address] [place] [address] Sodium [Moles/Vol] 143 mmol/L Normal 136-145 [facility] Comment on above: Performed By: #### L [id number] #### [facility] ([facility]) [address] [place] [address] Urea nitrogen [Mass/Vol] 17 mg/dL Normal 7-25 [facility] Comment on above: Performed By: #### L [id number] #### [facility] ([facility]) [address] [place] [address] UREA NITROGEN/CREATININE (MASS RATIO) IN SER/PLAS 24.6 Normal [facility] Comment on above: Performed By: #### L [id number] #### [facility] ([facility]) [address] [place] [address] MAGNESIUMon 07-31-2024 Magnesium [Mass/Vol] 1.9 mg/dL Normal 1.9-2.7 [facility] Comment on above: Performed By: #### L [id number] #### [facility] ([facility]) [address] [place] [address] PHOSPHORUSon 07-31-2024 Magnesium [Mass/Vol] 2.6 mg/dL Normal 2.5-5.0 [facility] Comment on above: Performed By: #### L [id number] #### [facility] ([facility]) [address] [place] [address] PREALBUMINon 07-31-2024 Prealbumin [Mass/Vol] 10.0 mg/dL Normal [facility] Comment on above: Performed By: #### L [id number] #### [facility] ([facility]) [address] [place] [address] Basic Metab w/rfx MGon 07-30 Anion gap [Moles/Vol] 9 mmol/L Normal 9-16 [facility] Comment on above: Performed By: #### I OCAL, MG, CDP, QUINN, BMPX #### [employer] [address] [place] [address] [employer] Operator: Juan Bauman MD Calcium [Mass/Vol] 8.3 mg/dL Low 8.6-10.4 [facility] Comment on above: Performed By: #### I OCAL, MG, CDP, QUINN, BMPX #### [facility] [address] [place] [address] [employer] Operator: Juan Bauman MD Chloride [Moles/Vol] 117 mmol/L High 98-107 [facility] Comment on above: Performed By: #### I OCAL, MG, CDP, QUINN, BMPX #### [employer] [address] [place] [address] [employer] Operator: Juan Bauman MD CO2 [Moles/Vol] 22 mmol/L Normal 20-31 [facility] Comment on above: Performed By: #### I OCAL, MG, CDP, QUINN, BMPX #### [facility] [email or web address] [address] [place] [address] [id number] [employer] Operator: Juan Bauman MD Creatinine [Mass/Vol] 0.7 mg/dL Normal 0.6-0.9 [facility] Comment on above: Performed By: #### I OCAL, MG, CDP, QUINN, BMPX #### [facility] [email or web address] [address] [place] [address] [id number] [employer] Operator: Juan Bauman MD GFR/1.73 sq M.predicted among non-blacks MDRD (S/P/Bld) [Vol rate/Area] mL/min/{1.73_m2} Normal >60 [facility] Comment on above: Result Comment: These results are not intended for [...] following therapy that affects renal tubular secretion. Performed By: #### I OCAL, MG, CDP, QUINN, BMPX #### [address] [id number] [employer] Operator: Juan Bauman MD Glucose [Mass/Vol] 125 mg/dL High 74-99 [facility] Comment on above: Performed By: #### I OCAL, MG, CDP, QUINN, BMPX #### [facility] [email or web address] [address] [place] [address] [id number] [employer] Operator: Juan Bauman MD Potassium [Moles/Vol] 5.0 mmol/L Normal 3.7-5.3 [facility] Comment on above: Result Comment: Spec imen hemolysis has exceeded the interference as defined by Sinan. Value may be falsely increased. Suggest recollection if clinically indicated. Performed By: #### I OCAL, MG, CDP, QUINN, BMPX #### [facility] [address] [place], [place] [id number] [employer] Operator: Juan Bauman MD Sodium [Moles/Vol] 148 mmol/L High 136-145 [facility] Comment on above: Performed By: #### I OCAL, MG, CDP, QUINN, BMPX #### [facility] [address] [place], [place] [id number] [employer] Operator: Juan Bauman MD Urea nitrogen [Mass/Vol] 19 mg/dL Normal 8-23 [facility] Comment on above: Performed By: #### I OCAL, MG, CDP, QUINN, BMPX #### [facility] [address] [place], [place] [id number] [employer] Operator: Juan Bauman MD Basic Metabolic Panel w/ Ref esa to MGon 07-30-2024 Anion gap [Moles/Vol] 9 mmol/L 9 - 16 mmol/L [facility] Calcium [Mass/Vol] 8.3 mg/dL Low 8.6 - 10. 4 mg/dL [facility] Chloride [Moles/Vol] 117 mmol/L High 98 - 10 7 mmol/L [facility] CO2 [Moles/Vol] 22 mmol/L 20 - 31 mmol/L [facility] Creatinine [Mass/Vol] 0.7 mg/dL 0.6 - 0.9 mg/dL [facility] Est, Glom Filt Rate - PINF [facility] Glucose [Mass/Vol] 125 mg/dL High 74 - 99 mg/dL [facility] Interpretation and review of laboratory results Abnormal [facility] Potassium [Moles/Vol] 5 mmol/L 3.7 - 5.3 mmol/L [facility] Sodium [Moles/Vol] 148 mmol/L High 136 - 145 mmol/L [facility] Urea nitrogen [Mass/Vol] 19 mg/dL 8 - 23 mg/dL [facility] CBC with Auto Differentialon 07-30-2024 Basophils (Bld) [#/Vol] 0 10*3/uL B on [facility] Basophils/100 WBC (Bld) 0 % 0 - 2 % B on [facility] Eosinophils (Bld) [#/Vol] 0.19 10*3/uL [facility] Eosinophils/100 WBC (Bld) 1 % 1 - 4 % [facility] Erythrocyte distribution width (RBC) [Ratio] 14.8 % High 11.8 - 14.4 % [facility] Hematocrit (Bld) [Volume fraction] 30 % Low 36.3 - 47.1 % [facility] Hemoglobin (Bld) [Mass/Vol] 8.5 g/dL Low 11.9 - 15.1 g/dL [facility] Immature granulocytes (Bld) [#/Vol] 0.19 10*3/uL [facility] Immature granulocytes/100 WBC (Bld) 1 % High 0 [facility] Interpretation and review of laboratory results Abnormal [facility] Lymphocytes/100 WBC (Bld) 9 % Low 24 - 43 % [facility] Lymphocytes/100 WBC (Bld) 1.68 % [facility] MCH (RBC) [Entitic mass] 29.2 pg 25.2 - 33.5 pg [facility] MCHC (RBC) [Mass/Vol] 28.3 g/dL Low 28.4 - 34.8 g/dL [facility] MCV (RBC) [Entitic vol] 103.1 fL High 82.6 - 102.9 fL [facility] Monocytes/100 WBC (Bld) 7 % 3 - 12 % B on [facility] Monocytes/100 WBC (Bld) 1.31 % High B on [facility] Morphology Germán (Bld) [Interp] ANISOCYTOSIS PRESENT [facility] Morphology Germán (Bld) [Interp] HYPOCHROMIA PRESENT [facility] Morphology Germán (Bld) [Interp] MACROCYTOSIS PRESENT [facility] Neutrophils/100 WBC (Bld) 82 % High 36 - 65 % [facility] Nucleated RBC/100 WBC (Bld) [Ratio] 0.1 % High 0.0 per 100 WBC [facility] [employer] Platelet, Fluorescence [address] [facility] Platelets (Bld) [#/Vol] See Reflexed IPF Result [facility] Platelets reticulated/100 platelets Auto (Bld) 2.6 % 1.1 - 10.3 % [facility] RBC (Bld) [#/Vol] 2.91 10*6/uL Low 3.95 - 5.1 1 m/uL [facility] Segmented neutrophils/100 WBC (Bld) 15.33 % High [facility] WBC other (Bld) [#/Vol] 18.7 High B [facility] CBC with Diffon 07-30-2024 Abs. Basophil 0.00 k/uL Normal 0.00-0.20 [facility] Comment on above: Performed By: #### I OCAL, MG, CDP, QUINN, BMPX #### [facility] [address] [place] [address] [employer] Operator: Juan Bauman MD Abs.Imm.Granulocyte 0.19 k/uL Normal 0.00-0.30 [facility] Comment on above: Performed By: #### I OCAL, MG, CDP, QUINN, BMPX #### [employer] [address] [place] [address] [employer] Operator: Juan Bauman MD Abs.Neutrophil (Seg) 15.33 k/uL High 1.50-8.10 [facility] Comment on above: Performed By: #### I OCAL, MG, CDP, QUINN, BMPX #### [employer] [address] [place] [address] [employer] Operator: Juan Bauman MD Basophils/100 WBC (Bld) 0 % Normal 0-2 [facility] Comment on above: Performed By: #### I OCAL, MG, CDP, QUINN, BMPX #### [employer] [address] [place] [address] [employer] Operator: Juan Bauman MD Eosinophils (Bld) [#/Vol] 0.19 10*3/uL Normal 0.00-0.44 [facility] Comment on above: Performed By: #### I OCAL, MG, CDP, QUINN, BMPX #### [facility] [email or web address] [address] [place] [address] [employer] Operator: Juan Bauman MD Eosinophils/100 WBC (Bld) 1 % Normal 1-4 [facility] Comment on above: Performed By: #### I OCAL, MG, CDP, QUINN, BMPX #### [facility] [email or web address] [address] [place] [address] [employer] Operator: Juan Bauman MD Immature granulocytes/100 WBC (Bld) 1 % High 0 [facility] Comment on above: Performed By: #### I OCAL, MG, CDP, QUINN, BMPX #### [facility] [email or web address] [address] [place] [address] [employer] Operator: Juan Bauman MD Lymphocytes (Bld) [#/Vol] 1.68 10*3/uL Normal 1.10-3.70 [facility] Comment on above: Performed By: #### I OCAL, MG, CDP, QUINN, BMPX #### [facility] [email or web address] [address] [place] [address] [employer] Operator: Juan Bauman MD Lymphocytes/100 WBC (Bld) 9 % Low 24-43 [facility] Comment on above: Performed By: #### I OCAL, MG, CDP, QUINN, BMPX #### [facility] [email or web address] [address] [place] [address] [employer] Operator: Juan Bauman MD Monocytes (Bld) [#/Vol] 1.31 10*3/uL High 0.10-1.20 [facility] Comment on above: Performed By: #### I OCAL, MG, CDP, QUINN, BMPX #### [address] [address] [employer] Operator: Juan Bauman MD Monocytes/100 WBC (Bld) 7 % Normal 3-12 [facility] Comment on above: Performed By: #### I OCAL, MG, CDP, QUINN, BMPX #### [address] [address] [employer] Operator: Juan Bauman MD Morphology Germán (Bld) [Interp] ANISOCYTOSIS PRESENT Normal [facility] Comment on above: Result Comment: HYPO CHROMIA PRESENT MACROCYTOSIS PRESENT Performed By: #### I OCAL, MG, CDP, QUINN, BMPX #### [address] [address] [employer] Operator: Juan Bauman MD Neutrophil (Seg) 82 % High 36-65 [facility] Comment on above: Performed By: #### I OCAL, MG, CDP, QUINN, BMPX #### [address] [address] [employer] Operator: Juan Bauman MD Platelet, Fluoresc. 584 k/uL High 138-453 [facility] Comment on above: Performed By: #### I OCAL, MG, CDP, QUINN, BMPX #### [address] [address] [employer] Operator: Juan Bauman MD PLT, Immature Fract. 2.6 % Normal 1.1-10.3 [facility] Comment on above: Performed By: #### I OCAL, MG, CDP, QUINN, BMPX #### [address] [address] [employer] Operator: Juan Bauman MD Erythrocyte distribution width (RBC) [Ratio] 14.8 % High 11.8-14.4 [facility] Comment on above: Performed By: #### I OCAL, MG, CDP, QUINN, BMPX #### [address] [address] [employer] Operator: Juan Bauman MD Hematocrit (Bld) [Volume fraction] 30.0 % Low 36.3-47.1 [facility] Comment on above: Performed By: #### I OCAL, MG, CDP, QUINN, BMPX #### [address] [address] [employer] Operator: Juan Bauman MD Hemoglobin (Bld) [Mass/Vol] 8.5 g/dL Low 11.9-15.1 [facility] Comment on above: Performed By: #### I OCAL, MG, CDP, QUINN, BMPX #### [address] [address] [employer] Operator: Juna Bauman MD MCH (RBC) [Entitic mass] 29.2 pg Normal 25.2-33.5 [facility] Comment on above: Performed By: #### I OCAL, MG, CDP, QUINN, BMPX #### [address] [address] [employer] Operator: Juan Bauman MD MCHC (RBC) [Mass/Vol] 28.3 g/dL Low 28.4-34.8 [facility] Comment on above: Performed By: #### I OCAL, MG, CDP, QUINN, BMPX #### [address] [address] [employer] Operator: Juan Bauman MD MCV (RBC) [Entitic vol] 103.1 fL High 82.6-102.9 [facility] Comment on above: Performed By: #### I OCAL, MG, CDP, QUINN, BMPX #### [address] [address] [employer] Operator: Juan Bauman MD NRBC Automated 0.1 per 100 WBC High 0.0 [facility] Comment on above: Performed By: #### I OCAL, MG, CDP, QUINN, BMPX #### [facility] [email or web address] [address] [place] [address] [employer] Operator: Juan Bauman MD Platelet Count See Reflexed IPF Result Normal 138-453 [facility] Comment on above: Performed By: #### I OCAL, MG, CDP, QUINN, BMPX #### [facility] [email or web address] [address] [place] [address] [employer] Operator: Juan Bauman MD RBC (Bld) [#/Vol] 2.91 10*6/uL Low 3.95-5.11 [facility] Comment on above: Performed By: #### I OCAL, MG, CDP, QUINN, BMPX #### [address] [address] [employer] Operator: Juan Bauman MD WBC (Bld) [#/Vol] 18.7 10*3/uL High 3.5-11.3 [facility] Comment on above: Performed By: #### I OCAL, MG, CDP, QUINN, BMPX #### [address] [address] [employer] Operator: Juan Bauman MD Cult, [facility] 07-30-2024 Cult, Blood Specimen Description .BLOOD Special Requests LT H 1ML FLUID Culture NO GROWTH 5 DAYS Report Status FINAL 07/30/2024 Normal [facility] Comment on above: Performed By: #### I OCAL, MG, CDP, QUINN, BMPX #### [address] [address] [employer] Operator: Juan Bauman MD Cult,[facility] 07-30-2024 Cult,Blood Specimen Description .BLOOD Special Requests RT H .05 FLUID Culture NO GROWTH 5 DAYS Report Status FINAL 07/30/2024 Normal [facility] Comment on above: Performed By: #### C DP, PRCAL, LACTIC, BMP, CRP, SED #### [facility] [address] [place] [address] [employer] Operator: Juan Bauman MD Culture, Blood 1on 5 Microorganism identified Cx Nom (Unsp spec) NO GROWTH 5 DAYS [facility] Service comment (Unsp spec) [Interp] RT H .05 FLUID [facility] Specimen Description .BLOOD [facility] Culture, Blood 2on 5 Microorganism identified Cx Nom (Unsp spec) NO GROWTH 5 DAYS [facility] Service comment (Unsp spec) [Interp] LT H 1ML FLUID [facility] Specimen Description .BLOOD [facility] Glucose,Whole Bloodon 2024 Glucose [Mass/Vol] 110 mg/dL High 65-105 [facility] Glucose [Mass/Vol] 116 mg/dL High 65-105 [facility] Glucose [Mass/Vol] 115 mg/dL High 65-105 [facility] Glucose [Mass/Vol] 135 mg/dL High 65-105 [facility] MHPT CULT, BLOODon 5 MHPT CULT, BLOOD Specimen Description .BLOOD [facility] MHPT CULT, BLOOD Special Requests LT H 1ML FLUID [facility] MHPT CULT, BLOOD Culture [facility], [facility] Report Status FINAL 07/30/2024 [facility] Original Ordering Provider: [facility]AN [facility] Magnesiumon 07-30-2024 Magnesium [Mass/Vol] 1.9 mg/dL 1.6 - 2 .4 mg/dL [facility] Magnesium [Mass/Vol] 1.9 mg/dL Normal 1.6-2.4 [facility] Comment on above: Performed By: #### I OCAL, MG, CDP, QUINN, BMPX #### [facility] [address] [place], [place] [id number] [employer] Operator: Juan Bauman MD No Panel Informationon 07-30 [facility] POC Glucose Fingerstickon Glucose [Mass/Vol] 110 mg/dL High 65 - 105 mg/dL [facility] Interpretation and review of laboratory results Abnormal [facility] Glucose [Mass/Vol] 116 mg/dL High 65 - 105 mg/dL [facility] Interpretation and review of laboratory results Abnormal [facility] Glucose [Mass/Vol] 115 mg/dL High 65 - 105 mg/dL [facility] Interpretation and review of laboratory results Abnormal [facility] Glucose [Mass/Vol] 135 mg/dL High 65 - 105 mg/dL [facility] Interpretation and review of laboratory results Abnormal [facility] Phosphoruson 07-30-2024 Phosphate [Mass/Vol] 2.5 mg/dL 2.5 - 4 .5 mg/dL [facility] Phosphorus, Inorg.on 025 Phosphorus, Inorg. 2.5 mg/dL Normal 2.5-4.5 [facility] Comment on above: Performed By: #### I OCAL, MG, CDP, QUINN, BMPX #### [facility] [email or web address] [address] [place] [address] [employer] Operator: Juan Bauman MD XR ABDOMEN FOR NG/OG/NE TUBE PLACEMENTon 07-30-2024 XR ABDOMEN FOR NG/OG/NE TUBE PLACEMENT EXAMINATION: ONE SUPINE XRAY VIEW(S) OF THE [...] port in the body of the stomach. IMPRESSION: 1. Gastric tube in place with the tip at the distal body of the stomach and the side port in the body of the stomach. 2. Nonobstructive bowel gas pattern. Interpreted by: Car Espinoza MD Signed by: Car Espinoza MD 07/30/24 Final result Normal [facility] MHPN RIS CONSOLIDATED MHPN RIS CONSOLIDATED [facility] Radiology Study [facility] (narrative) [facility] XR ABDOMEN FOR NG/OG/NE TUBE PLACEMENTOrdered By: Car Espinoza on 07-30-2024 [facility] Work Phone: Arterial Bld Gas,POCon 07-29 HCO3 (Bld) [Moles/Vol] 28.9 mmol/L High 21.0-28.0 B on [facility] Mode of Delivery NIV Normal [facility] Oxygen saturation in Blood 97.0 % Normal 94.0-98.0 [facility] pCO2, Arterial 49.8 mm Hg High 35.0-48.0 [facility] pH, Arterial 7.372 Normal 7.350-7.450 [facility] pO2, Arterial 94.7 mm Hg Normal 83.0-108.0 [facility] Positive Base Excess (calc) 3.1 mmol/L High 0.0-3.0 [facility] Site Drawn Right Radial Artery Normal [facility] Arterial Blood Gas, POCon Mode NIV [facility] Oxygen saturation in Blood 97 % 94.0 - 98.0 % [facility] POC pCO2 49.8 High [facility] POC pH 7.372 7.350 - 7.450 [facility] POC PO2 94.7 [facility] Positive Base Excess, Art 3.1 mmol/L High 0.0 - 3.0 mmol/L [facility] Sample Site Right Radial Artery [facility] BLOOD BANK SPECIMENon 2024 [facility] Basic Metab w/rfx MGon 07-29 Anion gap [Moles/Vol] 9 mmol/L Normal 9-16 [facility] Comment on above: Performed By: #### I OCAL, MG, CDP, QUINN, BMPX #### [address] [address] [employer] Operator: Juan Bauman MD Calcium [Mass/Vol] 8.5 mg/dL Low 8.6-10.4 [facility] Comment on above: Performed By: #### I OCAL, MG, CDP, QUINN, BMPX #### [address] [address] [employer] Operator: Juan Bauman MD Chloride [Moles/Vol] 120 mmol/L High 98-107 [facility] Comment on above: Performed By: #### I OCAL, MG, CDP, QUINN, BMPX #### [facility] [email or web address] [address] [place] [id number] [employer] Operator: Juan Bauman MD CO2 [Moles/Vol] 22 mmol/L Normal 20-31 [facility] Comment on above: Performed By: #### I OCAL, MG, CDP, QUINN, BMPX #### [address] [address] [employer] Operator: Juan Bauman MD Creatinine [Mass/Vol] 0.8 mg/dL Normal 0.6-0.9 [facility] Comment on above: Performed By: #### I OCAL, MG, CDP, QUINN, BMPX #### [address] [id number] [employer] Operator: Juan Bauman MD GFR/1.73 sq M.predicted among non-blacks MDRD (S/P/Bld) [Vol rate/Area] 83 mL/min/{1.73_m2} Normal >60 [facility] Comment on above: Result Comment: These results are not intended for [...] following therapy that affects renal tubular secretion. Performed By: #### I OCAL, MG, CDP, QUINN, BMPX #### [facility] [address] [place] [address] [employer] Operator: Juan Bauman MD Glucose [Mass/Vol] 133 mg/dL High 74-99 [facility] Comment on above: Performed By: #### I OCAL, MG, CDP, QUINN, BMPX #### [facility] [address] [place] [address] [employer] Operator: Juan Bauman MD Potassium [Moles/Vol] 4.3 mmol/L Normal 3.7-5.3 [facility] Comment on above: Performed By: #### I OCAL, MG, CDP, QUINN, BMPX #### [facility] [address] [place] [address] [employer] Operator: Juan Bauman MD Sodium [Moles/Vol] 151 mmol/L High 136-145 [facility] Comment on above: Performed By: #### I OCAL, MG, CDP, QUINN, BMPX #### [facility] [address] [place] [address] [employer] Operator: Juan Bauman MD Urea nitrogen [Mass/Vol] 27 mg/dL High 8-23 [facility] Comment on above: Performed By: #### I OCAL, MG, CDP, QUINN, BMPX #### [facility] [address] [place] [phone] [employer] Operator: Juan Bauman MD Basic Metabolic Panel w/ Ref esa to MGon 07-29-2024 Anion gap [Moles/Vol] 9 mmol/L 9 - 16 mmol/L [facility] Calcium [Mass/Vol] 8.5 mg/dL Low 8.6 - 10. 4 mg/dL [facility] Chloride [Moles/Vol] 120 mmol/L High 98 - 10 7 mmol/L Bon [facility] CO2 [Moles/Vol] 22 mmol/L 20 - 31 mmol/L [facility] Creatinine [Mass/Vol] 0.8 mg/dL 0.6 - 0.9 mg/dL [facility] Est, Glom Filt Rate 83 - PINF [facility] Glucose [Mass/Vol] 133 mg/dL High 74 - 99 mg/dL [facility] Potassium [Moles/Vol] 4.3 mmol/L 3.7 - 5.3 mmol/L [facility] Sodium [Moles/Vol] 151 mmol/L High 136 - 145 mmol/L [facility] Urea nitrogen [Mass/Vol] 27 mg/dL High 8 - 23 mg/dL [facility] C-Reactive Proteinon 025 CRP High sensitivity method [Mass/Vol] 187.0 mg/L High 0.0 - 5.0 mg/L [facility] CRP [Mass/Vol] 187.0 mg/L High 0.0-5.0 [facility] Comment on above: Performed By: #### I OCAL, MG, CDP, QUINN, BMPX #### [facility] [address] [place] [address] [employer] Operator: Juan Bauman MD CBC with Auto Differentialon 07-29-2024 Basophils (Bld) [#/Vol] 0 10*3/uL B [facility] Erythrocyte distribution width (RBC) [Ratio] 15.1 % High 11.8 - 14.4 % [facility] Hematocrit (Bld) [Volume fraction] 26.9 % Low 36.3 - 47.1 % [facility] Hemoglobin (Bld) [Mass/Vol] 7.7 g/dL Low 11.9 - 15.1 g/dL [facility] Immature granulocytes (Bld) [#/Vol] 0.44 10*3/uL High [facility] Interpretation and review of laboratory results Abnormal [facility] Lymphocytes/100 WBC (Bld) 2.41 % [facility] MCH (RBC) [Entitic mass] 29.3 pg 25.2 - 33.5 pg [facility] MCHC (RBC) [Mass/Vol] 28.6 g/dL 28.4 - 34.8 g/dL [facility] MCV (RBC) [Entitic vol] 102.3 fL 82.6 - 102.9 fL [facility] Monocytes/100 WBC (Bld) 1.53 % High B on [facility] Neutrophils/100 WBC (Bld) 79 % High 36 - 65 % [facility] Nucleated RBC/100 WBC (Bld) [Ratio] 0.1 % High 0.0 per 100 WBC [facility] Platelet mean volume (Bld) [Entitic vol] 10.5 fL 8.1 - 13.5 fL [facility] Platelets (Bld) [#/Vol] 554 10*3/uL High [facility] RBC (Bld) [#/Vol] 2.63 10*6/uL Low 3.95 - 5.1 1 m/uL [facility] Segmented neutrophils/100 WBC (Bld) 17.3 % High [facility] WBC other (Bld) [#/Vol] 21.9 High B on [facility] CBC with Diffon 07-29-2024 Abs. Basophil 0.00 k/uL Normal 0.00-0.20 [facility] Comment on above: Performed By: #### I OCAL, MG, CDP, QUINN, BMPX #### [employer] [address] [place], [place] [id number] [employer] Operator: Juan Bauman MD Abs.Imm.Granulocyte 0.44 k/uL High 0.00-0.30 [facility] Comment on above: Performed By: #### I OCAL, MG, CDP, QUINN, BMPX #### [employer] [address] [place], [place] [id number] [employer] Operator: Juan Bauman MD Abs.Neutrophil (Seg) 17.30 k/uL High 1.50-8.10 [facility] Comment on above: Performed By: #### I OCAL, MG, CDP, QUINN, BMPX #### [facility] [email or web address] [address] [place] [phone] [employer] Operator: Juan Bauman MD Basophils/100 WBC (Bld) 0 % Normal 0-2 B on [facility] Comment on above: Performed By: #### I OCAL, MG, CDP, QUINN, BMPX #### [place] [address] [employer] Operator: Juan Bauman MD Eosinophils (Bld) [#/Vol] 0.22 10*3/uL Normal 0.00-0.44 Bon [facility] Comment on above: Performed By: #### I OCAL, MG, CDP, QUINN, BMPX #### [place] [address] [employer] Operator: Juan Bauman MD Eosinophils/100 WBC (Bld) 1 % Normal 1-4 Bon [facility] Comment on above: Performed By: #### I OCAL, MG, CDP, QUINN, BMPX #### [place] [address] [employer] Operator: Juan Bauman MD Immature granulocytes/100 WBC (Bld) 2 % High 0 [facility] Comment on above: Performed By: #### I OCAL, MG, CDP, QUINN, BMPX #### [place] [address] [employer] Operator: Juan Bauman MD Lymphocytes (Bld) [#/Vol] 2.41 10*3/uL Normal 1.10-3.70 [facility] Comment on above: Performed By: #### I OCAL, MG, CDP, QUINN, BMPX #### [facility] [email or web address] [address] [place] [address] [employer] Operator: Juan Bauman MD Lymphocytes/100 WBC (Bld) 11 % Low 24-43 [facility] Comment on above: Performed By: #### I OCAL, MG, CDP, QUINN, BMPX #### [facility] [email or web address] [address] [place] [address] [employer] Operator: Juan Bauman MD Monocytes (Bld) [#/Vol] 1.53 10*3/uL High 0.10-1.20 [facility] Comment on above: Performed By: #### I OCAL, MG, CDP, QUINN, BMPX #### [facility] [email or web address] [address] [place] [phone] [employer] Operator: Juan Bauman MD Monocytes/100 WBC (Bld) 7 % Normal 3-12 B on [facility] Comment on above: Performed By: #### I OCAL, MG, CDP, QUINN, BMPX #### [facility] [email or web address] [address] [place] [address] [employer] Operator: Juan Bauman MD Morphology Germán (Bld) [Interp] ANISOCYTOSIS PRESENT Normal Bon [facility] Comment on above: Performed By: #### I OCAL, MG, CDP, QUINN, BMPX #### [facility] [email or web address] [address] [place] [phone] [employer] Operator: Juan Bauman MD Neutrophil (Seg) 79 % High 36-65 [facility] Comment on above: Performed By: #### I OCAL, MG, CDP, QUINN, BMPX #### [facility] [email or web address] [address] [place] [phone] [employer] Operator: Juan Bauman MD Erythrocyte distribution width (RBC) [Ratio] 15.1 % High 11.8-14.4 [facility] Comment on above: Performed By: #### I OCAL, MG, CDP, QUINN, BMPX #### [facility] [email or web address] [address] [place] [address] [employer] Operator: Juan Bauman MD Hematocrit (Bld) [Volume fraction] 26.9 % Low 36.3-47.1 [facility] Comment on above: Performed By: #### I OCAL, MG, CDP, QUINN, BMPX #### [address] [id number] [employer] Operator: Juan Bauman MD Hemoglobin (Bld) [Mass/Vol] 7.7 g/dL Low 11.9-15.1 [facility] Comment on above: Performed By: #### I OCAL, MG, CDP, QUINN, BMPX #### [address] [address] [employer] Operator: Juan Bauman MD MCH (RBC) [Entitic mass] 29.3 pg Normal 25.2-33.5 [facility] Comment on above: Performed By: #### I OCAL, MG, CDP, QUINN, BMPX #### [address] [address] [employer] Operator: Juan Bauman MD MCHC (RBC) [Mass/Vol] 28.6 g/dL Normal 28.4-34.8 [facility] Comment on above: Performed By: #### I OCAL, MG, CDP, QUINN, BMPX #### [address] [address] [employer] Operator: Juan Bauman MD MCV (RBC) [Entitic vol] 102.3 fL Normal 82.6-102.9 [facility] Comment on above: Performed By: #### I OCAL, MG, CDP, QUINN, BMPX #### [facility] [email or web address] [address] [place] [address] [employer] Operator: Juan Bauman MD NRBC Automated 0.1 per 100 WBC High 0.0 [facility] Comment on above: Performed By: #### I OCAL, MG, CDP, QUINN, BMPX #### [facility] [email or web address] [address] [place] [address] [phone] [employer] Operator: Juan Bauman MD Platelet mean volume (Bld) [Entitic vol] 10.5 fL Normal 8.1-13.5 [facility] Comment on above: Performed By: #### I OCAL, MG, CDP, QUINN, BMPX #### [employer] [address] [place] [address] [employer] Operator: Juan Bauman MD Platelets (Bld) [#/Vol] 554 10*3/uL High 138-453 [facility] Comment on above: Performed By: #### I OCAL, MG, CDP, QUINN, BMPX #### [facility] [address] [place] [address] [employer] Operator: Juan Bauman MD RBC (Bld) [#/Vol] 2.63 10*6/uL Low 3.95-5.11 [facility] Comment on above: Performed By: #### I OCAL, MG, CDP, QUINN, BMPX #### [facility] [address] [place] [phone] [employer] Operator: Juan Bauman MD WBC (Bld) [#/Vol] 21.9 10*3/uL High 3.5-11.3 [facility] Comment on above: Performed By: #### I OCAL, MG, CDP, QUINN, BMPX #### [facility] [address] [place] [address] [employer] Operator: Juan Bauman MD Calcium, Ionicon 07-29-2024 Calcium [Moles/Vol] 1.21 mmol/L Normal 1.13-1.33 [facility] Comment on above: Performed By: #### I OCAL, MG, CDP, QUINN, BMPX #### [employer] [address] [place] [address] [employer] Operator: Juan Bauman MD Calcium, Ionizedon Calcium.ionized (Bld) [Moles/Vol] 1.21 mmol/L 1.13 - 1.33 mmol/L [facility] [employer] EKG 12 LeadOrdered By: Jr Thornton on 07-29-2024 Atrial Rate 118 BPM [employer] Work Phone: P [place] 50 degrees [employer] Work Phone: P-R Interval 156 ms [employer] Work Phone: Q-T Interval 304 ms [employer] Work Phone: QRS Duration 88 ms [employer] Work Phone: QTc Calculation (Bazett) 426 ms [employer] Work Phone: R [place] -2 degrees [employer] Work Phone: T [place] 133 degrees [employer] Work Phone: Ventricular Rate 118 BPM Bon [facility] [employer] Work Phone: [employer] Work Phone: EKG 12 Leadon 07-29-2024 MHPN STV MUSE [facility] Glucose (POC)on 07-29-2024 Glucose [Mass/Vol] 114 mg/dL High 74-100 [facility] [employer] Glucose,Whole Bloodon 2024 Glucose [Mass/Vol] 155 mg/dL High 65-105 [facility] Glucose [Mass/Vol] 99 mg/dL Normal 65-105 [facility] Glucose [Mass/Vol] 116 mg/dL High 65-105 [facility] Glucose [Mass/Vol] 122 mg/dL High 65-105 [facility] Lactic Acid (POC)on 07-30-19 25 Lactate [Moles/Vol] 0.8 mmol/L Normal 0.56-1.39 [facility] Lactic Acid, POCon 5 POC Lactic Acid 0.8 mmol/L 0.56 - 1.39 mmol/L [facility] Magnesiumon 07-29-2024 Magnesium [Mass/Vol] 2 mg/dL 1.6 - 2 .4 mg/dL [facility] Magnesium [Mass/Vol] 2.0 mg/dL Normal 1.6-2.4 [facility] Comment on above: Performed By: #### I OCAL, MG, CDP, QUINN, BMPX #### [employer] [address] [place] [address] [employer] Operator: Juan Bauman MD No Panel Informationon 07-29 Interpretation and review of laboratory results Abnormal [facility] Interpretation and review of laboratory results Abnormal [facility] POC Glucose Fingerstickon Glucose [Mass/Vol] 155 mg/dL High 65 - 105 mg/dL [facility] Interpretation and review of laboratory results Abnormal [facility] Glucose [Mass/Vol] 99 mg/dL 65 - 105 mg/dL [facility] Glucose [Mass/Vol] 116 mg/dL High 65 - 105 mg/dL [facility] Interpretation and review of laboratory results Abnormal [facility] Glucose [Mass/Vol] 122 mg/dL High 65 - 105 mg/dL [facility] Interpretation and review of laboratory results Abnormal [facility] Phosphoruson 07-29-2024 Phosphate [Mass/Vol] 2.4 mg/dL Low 2.5 - 4 .5 mg/dL [facility] Phosphorus, Inorg.on 025 Phosphorus, Inorg. 2.4 mg/dL Low 2.5-4.5 [facility] Comment on above: Performed By: #### I OCAL, MG, CDP, QUINN, BMPX #### [employer] [address] [place] [address] [employer] Operator: Juan Bauman MD Portable XR Chest AP single viewon 07-29-2024 MHPN RIS CONSOLIDATED MHPN RIS CONSOLIDATED [facility] Radiology Study observation (narrative) [facility] Portable XR Chest AP single viewOrdered By: Melo Mccallum on 07-29-2024 [facility] Work Phone: TYPE AND SCREENon 07-29-2024 ABO and Rh group Nom (Bld) Blood group A Rh(D) positive [facility] Arm Band Number BE [id number] [facility] Blood Bank Sample Expiration 08/01/2024,2359 [facility] Blood group antibodies identified Nom Negative [facility] Type + Screenon 07-29-2024 Type + Screen Sample Expiration 08/01/2024,2359 Arm Band Number BE [id number] ABO/Rh(D) A POSITIVE Antibody Screen NEGATIVE Normal [facility] Comment on above: Performed By: #### I OCAL, MG, CDP, QUINN, BMPX #### [employer] [address] [place], [place] [phone] [employer] Operator: Juan Bauman MD XR CHEST PORTABLEon 07-30-19 XR CHEST PORTABLE EXAMINATION: ONE XRAY VIEW OF THE CHEST 07/29/2024 5:24 am COMPARISON: 07/28/2024 radiograph HISTORY: ORDERING SYSTEM PROVIDED HISTORY: post extubation TECHNOLOGIST PROVIDED HISTORY: post extubation FINDINGS: Interval extubation. Right central line stable. Cardiomegaly with improving perihilar opacities centrally. Slightly increasing ground-glass opacification in the left lower lung zone with suspected pleural effusion. No skeletal abnormality. IMPRESSION: 1. Interval extubation with improving perihilar opacities. 2. Slightly increasing left lower lung zone opacification with suspected pleural effusion. Interpreted by: Melo Mccallum IV, MD Signed by: Melo Mccallum IV, MD 07/29/24 Final result Normal [facility] Arterial Bld Gas,POCon 07-28 Anthony Test Positive Normal [facility] FIO2 40.0 Normal [facility] HCO3 (Bld) [Moles/Vol] 25.0 mmol/L Normal 21.0-28.0 M [facility] Mode of Delivery PRVC Normal [facility] O2 Device Adult Ventilator Normal [facility] Oxygen saturation in Blood 99.0 % High 94.0-98.0 [facility] Patient Temp. 38.0 Normal [facility] pCO2, Arterial 41.0 mm Hg Normal 35.0-48.0 [facility] pCO2, Temp Adjust 42.8 mm Hg Normal [facility] pH, Arterial 7.393 Normal 7.350-7.450 [facility] pH, Temp Adjust 7.378 Normal [facility] pO2, Arterial 132.9 mm Hg High 83.0-108.0 [facility] pO2, Temp Adjust 139.2 mm Hg Normal [facility] Positive Base Excess (calc) 0.0 mmol/L Normal 0.0-3.0 [facility] Site Drawn Right Radial Artery Normal [facility] Arterial Blood Gas, POCon Anthony Test Positive [facility] FIO2 40 [facility] HCO3 (Bld) [Moles/Vol] 25 mmol/L 21.0 - 28.0 mmol/L [facility] Mode PRVC [facility] O2 Delivery Device Adult Ventilator [facility] Oxygen saturation in Blood 99 % High 94.0 - 98.0 % [facility] POC pCO2 41 [facility] POC pCO2 Temp 42.8 mm Hg [facility] POC pH 7.393 7.350 - 7.450 [facility] POC pH Temp 7.378 [facility] POC PO2 132.9 High [facility] POC pO2 Temp 139.2 mm Hg [facility] Positive Base Excess, Art 0 mmol/L 0.0 - 3.0 mmol/L [facility] Pt Temp 38 [facility] Right Radial Artery [facility] Basic Metab w/rfx MGon 07-28 Anion gap [Moles/Vol] 7 mmol/L Low 9-16 [facility] Comment on above: Performed By: #### I OCAL, MG, CDP, QUINN, BMPX #### [address] [address] [employer] Operator: Juan Bauman MD Calcium [Mass/Vol] 8.3 mg/dL Low 8.6-10.4 [facility] Comment on above: Performed By: #### I OCAL, MG, CDP, QUINN, BMPX #### [address] [address] [employer] Operator: Juan Bauman MD Chloride [Moles/Vol] 118 mmol/L High 98-107 [facility] Comment on above: Performed By: #### I OCAL, MG, CDP, QUINN, BMPX #### [facility] [email or web address] [address] [place] [phone] [employer] Operator: Juan Bauman MD CO2 [Moles/Vol] 23 mmol/L Normal 20-31 [facility] Comment on above: Performed By: #### I OCAL, MG, CDP, QUINN, BMPX #### [facility] [email or web address] [address] [place] [address] [employer] Operator: Juan Bauman MD Creatinine [Mass/Vol] 0.9 mg/dL Normal 0.6-0.9 [facility] Comment on above: Performed By: #### I OCAL, MG, CDP, QUINN, BMPX #### [address] [address] [employer] Operator: Juan Bauman MD GFR/1.73 sq M.predicted among non-blacks MDRD (S/P/Bld) [Vol rate/Area] 72 mL/min/{1.73_m2} Normal >60 [facility] Comment on above: Result Comment: These results are not intended for [...] following therapy that affects renal tubular secretion. Performed By: #### I OCAL, MG, CDP, QUINN, BMPX #### [facility] [address] [place] [address] [phone] [employer] Operator: Juan Bauman MD Glucose [Mass/Vol] 287 mg/dL High 74-99 [facility] Comment on above: Performed By: #### I OCAL, MG, CDP, QUINN, BMPX #### [facility] [email or web address] [address] [place] [address] [phone] [employer] Operator: Juan Bauman MD Potassium [Moles/Vol] 4.1 mmol/L Normal 3.7-5.3 [facility] Comment on above: Performed By: #### I OCAL, MG, CDP, QUINN, BMPX #### [facility] [address] [place] [id number] [employer] Operator: Juan Baumna MD Sodium [Moles/Vol] 148 mmol/L High 136-145 [facility] Comment on above: Performed By: #### I OCAL, MG, CDP, QUINN, BMPX #### [facility] [address] [place] [address] [phone] [employer] Operator: Juan Bauman MD Urea nitrogen [Mass/Vol] 37 mg/dL High 8-23 [facility] Comment on above: Performed By: #### I OCAL, MG, CDP, QUINN, BMPX #### [facility] [address] [place] [address] [phone] [employer] Operator: Juan Bauman MD Basic Metabolic Panel w/ Ref esa to MGon 07-28-2024 Anion gap [Moles/Vol] 7 mmol/L Low 9 - 16 mmol/L [facility] Calcium [Mass/Vol] 8.3 mg/dL Low 8.6 - 10. 4 mg/dL [facility] Chloride [Moles/Vol] 118 mmol/L High 98 - 10 7 mmol/L [facility] CO2 [Moles/Vol] 23 mmol/L 20 - 31 mmol/L [facility] Creatinine [Mass/Vol] 0.9 mg/dL 0.6 - 0.9 mg/dL [facility] Est, Glom Filt Rate 72 - PINF [facility] Glucose [Mass/Vol] 287 mg/dL High 74 - 99 mg/dL [facility] Potassium [Moles/Vol] 4.1 mmol/L 3.7 - 5.3 mmol/L [facility] Sodium [Moles/Vol] 148 mmol/L High 136 - 145 mmol/L [facility] Urea nitrogen [Mass/Vol] 37 mg/dL High 8 - 23 mg/dL [facility] C-Reactive Proteinon 025 CRP High sensitivity method [Mass/Vol] 187.0 mg/L High 0.0 - 5.0 mg/L [facility] Interpretation and review of laboratory results Abnormal [facility] CRP [Mass/Vol] 187.0 mg/L High 0.0-5.0 [facility] Comment on above: Performed By: #### I OCAL, MG, CDP, QUINN, BMPX #### [facility] [place] [address] [employer] Operator: Juan Bauman MD CBC with Auto Differentialon 07-28-2024 Basophils (Bld) [#/Vol] 0.27 10*3/uL High [facility] Erythrocyte distribution width (RBC) [Ratio] 14.9 % High 11.8 - 14.4 % [facility] Hematocrit (Bld) [Volume fraction] 24.4 % Low 36.3 - 47.1 % [facility] Hemoglobin (Bld) [Mass/Vol] 7.3 g/dL Low 11.9 - 15.1 g/dL [facility] Immature granulocytes (Bld) [#/Vol] 0.27 10*3/uL [facility] Interpretation and review of laboratory results Abnormal [facility] Lymphocytes/100 WBC (Bld) 2.96 % [facility] MCH (RBC) [Entitic mass] 28.7 pg 25.2 - 33.5 pg [facility] MCHC (RBC) [Mass/Vol] 29.9 g/dL 28.4 - 34.8 g/dL [facility] MCV (RBC) [Entitic vol] 96.1 fL 82.6 - 102.9 fL [facility] Monocytes/100 WBC (Bld) 1.61 % High B on [facility] Neutrophils/100 WBC (Bld) 79 % High 36 - 66 % [facility] Nucleated RBC/100 WBC (Bld) [Ratio] 0.1 % High 0.0 per 100 WBC [facility] Platelet mean volume (Bld) [Entitic vol] 10.9 fL 8.1 - 13.5 fL [facility] Platelets (Bld) [#/Vol] 590 10*3/uL High [facility] RBC (Bld) [#/Vol] 2.54 10*6/uL Low 3.95 - 5.1 1 m/uL [facility] Segmented neutrophils/100 WBC (Bld) 21.25 % High [facility] WBC other (Bld) [#/Vol] 26.9 High B on [facility] CBC with Diffon 07-28-2024 Basophils/100 WBC (Bld) 1 % Normal 0-2 B on [facility] Comment on above: Performed By: #### I OCAL, MG, CDP, QUINN, BMPX #### [facility] [address] [place], [place] [id number] [employer] Operator: Juan Bauman MD Eosinophils (Bld) [#/Vol] 0.54 10*3/uL High 0.0-0.4 [facility] Comment on above: Performed By: #### I OCAL, MG, CDP, QUINN, BMPX #### [facility] [address] [place], [place] [id number] [employer] Operator: Juan Bauman MD Eosinophils/100 WBC (Bld) 2 % Normal 1-4 [facility] Comment on above: Performed By: #### I OCAL, MG, CDP, QUINN, BMPX #### [address] [address] [employer] Operator: Juan Bauman MD Immature granulocytes/100 WBC (Bld) 1 % High 0 [facility] Comment on above: Performed By: #### I OCAL, MG, CDP, QUINN, BMPX #### [place] [address] [employer] Operator: Juan Bauman MD Lymphocytes/100 WBC (Bld) 11 % Low 24-44 [facility] Comment on above: Performed By: #### I OCAL, MG, CDP, QUINN, BMPX #### [place] [address] [employer] Operator: Juan Bauman MD Monocytes/100 WBC (Bld) 6 % Normal 1-7 B on [facility] Comment on above: Performed By: #### I OCAL, MG, CDP, QUINN, BMPX #### [facility] [email or web address] [address] [place] [address] [employer] Operator: Juan Bauman MD Morphology Germán (Bld) [Interp] ANISOCYTOSIS PRESENT Normal [facility] Comment on above: Performed By: #### I OCAL, MG, CDP, QUINN, BMPX #### [place] [address] [employer] Operator: Juan Bauman MD Abs. Basophil 0.27 k/uL High 0.0-0.2 [facility] Comment on above: Performed By: #### I OCAL, MG, CDP, QUINN, BMPX #### [facility] [email or web address] [address] [place] [address] [employer] Operator: Juan Bauman MD Abs.Imm.Granulocyte 0.27 k/uL Normal 0.00-0.30 [facility] Comment on above: Performed By: #### I OCAL, MG, CDP, QUINN, BMPX #### [facility] [email or web address] [address] [place] [address] [employer] Operator: Juan Bauman MD Abs.Neutrophil (Seg) 21.25 k/uL High 1.8-7.7 [facility] Comment on above: Performed By: #### I OCAL, MG, CDP, QUINN, BMPX #### [facility] [email or web address] [address] [place] [address] [employer] Operator: Juan Bauman MD Lymphocytes (Bld) [#/Vol] 2.96 10*3/uL Normal 1.0-4.8 [facility] Comment on above: Performed By: #### I OCAL, MG, CDP, QUINN, BMPX #### [facility] [email or web address] [address] [place] [address] [employer] Operator: Juan Bauman MD Monocytes (Bld) [#/Vol] 1.61 10*3/uL High 0.1-0.8 [facility] Comment on above: Performed By: #### I OCAL, MG, CDP, QUINN, BMPX #### [facility] [email or web address] [address] [place] [address] [employer] Operator: Juan Bauman MD Neutrophil (Seg) 79 % High 36-66 [facility] Comment on above: Performed By: #### I OCAL, MG, CDP, QUINN, BMPX #### [facility] [email or web address] [address] [place] [address] [employer] Operator: Juan Bauman MD Erythrocyte distribution width (RBC) [Ratio] 14.9 % High 11.8-14.4 [facility] Comment on above: Performed By: #### I OCAL, MG, CDP, QUINN, BMPX #### [facility] [email or web address] [address] [place] [address] [employer] Operator: Juan Bauman MD Hematocrit (Bld) [Volume fraction] 24.4 % Low 36.3-47.1 [facility] Comment on above: Performed By: #### I OCAL, MG, CDP, QUINN, BMPX #### [address] [address] [employer] Operator: Juan Bauman MD Hemoglobin (Bld) [Mass/Vol] 7.3 g/dL Low 11.9-15.1 [facility] Comment on above: Performed By: #### I OCAL, MG, CDP, QUINN, BMPX #### [address] [address] [employer] Operator: Juan Bauman MD MCH (RBC) [Entitic mass] 28.7 pg Normal 25.2-33.5 [facility] Comment on above: Performed By: #### I OCAL, MG, CDP, QUINN, BMPX #### [address] [address] [employer] Operator: Juan Bauman MD MCHC (RBC) [Mass/Vol] 29.9 g/dL Normal 28.4-34.8 [facility] Comment on above: Performed By: #### I OCAL, MG, CDP, QUINN, BMPX #### [address] [address] [employer] Operator: Juan Bauman MD MCV (RBC) [Entitic vol] 96.1 fL Normal 82.6-102.9 [facility] Comment on above: Performed By: #### I OCAL, MG, CDP, QUINN, BMPX #### [address] [address] [employer] Operator: Juan Bauman MD NRBC Automated 0.1 per 100 WBC High 0.0 [facility] Comment on above: Performed By: #### I OCAL, MG, CDP, QUINN, BMPX #### [address] [address] [employer] Operator: Juan Bauman MD Platelet mean volume (Bld) [Entitic vol] 10.9 fL Normal 8.1-13.5 [facility] Comment on above: Performed By: #### I OCAL, MG, CDP, QUINN, BMPX #### [facility] [address] [place] [address] [employer] Operator: Juan Bauman MD Platelets (Bld) [#/Vol] 590 10*3/uL High 138-453 [facility] Comment on above: Performed By: #### I OCAL, MG, CDP, QUINN, BMPX #### [facility] [email or web address] [address] [place] [address] [employer] Operator: Juan Bauman MD RBC (Bld) [#/Vol] 2.54 10*6/uL Low 3.95-5.11 [facility] Comment on above: Performed By: #### I OCAL, MG, CDP, QUINN, BMPX #### [facility] [email or web address] [address] [place] [address] [employer] Operator: Juan Bauman MD WBC (Bld) [#/Vol] 26.9 10*3/uL High 3.5-11.3 [facility] Comment on above: Performed By: #### I OCAL, MG, CDP, QUINN, BMPX #### [facility] [email or web address] [address] [place] [address] [employer] Operator: Juan Bauman MD Calcium, Ionicon 7 Calcium [Moles/Vol] 1.14 mmol/L Normal 1.13-1.33 [facility] Comment on above: Performed By: #### I OCAL, MG, CDP, QUINN, BMPX #### [facility] [email or web address] [address] [place] [address] [employer] Operator: Juan Bauman MD Calcium, Ionizedon Calcium.ionized (Bld) [Moles/Vol] 1.14 mmol/L 1.13 - 1.33 mmol/L [facility] Glucose (POC)on 07-28-2024 Glucose [Mass/Vol] 277 mg/dL High 74-100 [facility] Glucose,Whole Bloodon 2024 Glucose [Mass/Vol] 153 mg/dL High 65-105 [facility] Glucose [Mass/Vol] 191 mg/dL High 65-105 [facility] Glucose [Mass/Vol] 185 mg/dL High 65-105 [facility] Glucose [Mass/Vol] 185 mg/dL High 65-105 [facility] Glucose [Mass/Vol] 248 mg/dL High 65-105 [facility] Glucose [Mass/Vol] 270 mg/dL High 65-105 [facility] Lactic Acid (POC)on 07-29-19 Lactate [Moles/Vol] 1.5 mmol/L High 0.56-1.39 [facility] Lactic Acid, POCon POC Lactic Acid 1.5 mmol/L High 0.56 - 1.39 mmol/L [facility] Magnesiumon 07-28-2024 Magnesium [Mass/Vol] 2.2 mg/dL 1.6 - 2 .4 mg/dL [facility] Magnesium [Mass/Vol] 2.2 mg/dL Normal 1.6-2.4 [facility] Comment on above: Performed By: #### I OCAL, MG, CDP, QUINN, BMPX #### [facility] [email or web address] [facility] [place] [address] [employer] Operator: Juan Bauman MD No Panel Informationon 07-28 Interpretation and review of laboratory results Abnormal [facility] Interpretation and review of laboratory results Abnormal [facility] POC Glucose Fingerstickon Glucose [Mass/Vol] 153 mg/dL High 65 - 105 mg/dL [facility] Interpretation and review of laboratory results Abnormal [facility] Glucose [Mass/Vol] 191 mg/dL High 65 - 105 mg/dL [facility] Interpretation and review of laboratory results Abnormal [facility] Glucose [Mass/Vol] 185 mg/dL High 65 - 105 mg/dL [facility] Interpretation and review of laboratory results Abnormal [facility] Glucose [Mass/Vol] 185 mg/dL High 65 - 105 mg/dL [facility] Interpretation and review of laboratory results Abnormal [facility] Glucose [Mass/Vol] 248 mg/dL High 65 - 105 mg/dL [facility] Interpretation and review of laboratory results Abnormal [facility] Glucose [Mass/Vol] 270 mg/dL High 65 - 105 mg/dL [facility] Interpretation and review of laboratory results Abnormal [facility] POCT Glucoseon 07-28-2024 Glucose [Mass/Vol] 277 mg/dL High 74 - 100 mg/dL [facility] Phosphoruson 07-28-2024 Phosphate [Mass/Vol] 2.2 mg/dL Low 2.5 - 4 .5 mg/dL [facility] Phosphorus, Inorg.on Phosphorus, Inorg. 2.2 mg/dL Low 2.5-4.5 [facility] Comment on above: Performed By: #### I OCAL, MG, CDP, QUINN, BMPX #### [facility] [address] [id number] [employer] Operator: Juan Bauman MD Portable XR Chest AP single viewon 07-28-2024 MHPN RIS CONSOLIDATED PN RIS CONSOLIDATED [facility] Radiology Study observation (narrative) [facility] Portable XR Chest AP single viewOrdered By: Chip Andres on 07-28-2024 [facility] Work Phone: XR CHEST PORTABLEon 07-29-19 XR CHEST PORTABLE EXAMINATION: ONE XRAY VIEW OF THE CHEST 07/28/2024 4:32 am COMPARISON: 07/27/2024 HISTORY: ORDERING SYSTEM PROVIDED HISTORY: intubated TECHNOLOGIST PROVIDED HISTORY: intubated FINDINGS: An endotracheal tube, enteric tube and right internal jugular central venous catheter stable in appearance. The mediastinal and cardiac contours are stable. There are abnormal bilateral perihilar opacities extending into the upper and lower lobes with indistinctness of the pulmonary vasculature, similar to the previous exam. IMPRESSION: 1. Stable appearance of support lines and tubes. 2. Persistent pulmonary edema. Interpreted by: Chip Andres MD Signed by: Chip Andres MD 07/28/24 Final result Normal [facility] Arterial Bld Gas,POCon 07-27 Anthony Test NOT APPLICABLE Normal [facility] FIO2 40.0 Normal [facility] HCO3 (Bld) [Moles/Vol] 22.7 mmol/L Normal 21.0-28.0 M [facility] Mode of Delivery PRVC Normal [facility] Negative Base Excess (calc) 2.1 mmol/L High 0.0-2.0 [facility] O2 Device Adult Ventilator Normal [facility] Oxygen saturation in Blood 97.4 % Normal 94.0-98.0 [facility] pCO2, Arterial 38.1 mm Hg Normal 35.0-48.0 [facility] pH, Arterial 7.384 Normal 7.350-7.450 [facility] pO2, Arterial 96.6 mm Hg Normal 83.0-108.0 [facility] Site Drawn Right Radial Artery Normal [facility] Arterial Blood Gas, POCon Anthony Test NOT APPLICABLE [facility] [employer] FIO2 40 [facility] [employer] HCO3 (Bld) [Moles/Vol] 22.7 mmol/L 21.0 - 28.0 mmol/L [facility] [employer] Mode PRVC [facility] Negative Base Excess, Art 2.1 mmol/L High 0.0 - 2.0 mmol/L [facility] O2 Delivery Device Adult Ventilator [facility] Oxygen saturation in Blood 97.4 % 94.0 - 98.0 % [facility] POC pCO2 38.1 [facility] POC pH 7.384 7.350 - 7.450 [facility] POC PO2 96.6 [facility] Sample Site Right Radial Artery [facility] Basic Metab w/rfx MGon 07-27 Anion gap [Moles/Vol] 10 mmol/L Normal 9-16 [facility] Comment on above: Performed By: #### I OCAL, MG, CDP, QUINN, BMPX #### [facility] [address] [place] [address] [employer] Operator: Juan Bauman MD Calcium [Mass/Vol] 8.0 mg/dL Low 8.6-10.4 [facility] Comment on above: Performed By: #### I OCAL, MG, CDP, QUINN, BMPX #### [facility] [email or web address] [address] [place] [phone] [employer] Operator: Juan Bauman MD Chloride [Moles/Vol] 115 mmol/L High 98-107 [facility] Comment on above: Performed By: #### I OCAL, MG, CDP, QUINN, BMPX #### [facility] [address] [place] [address] [employer] Operator: Juan Bauman MD CO2 [Moles/Vol] 21 mmol/L Normal 20-31 [facility] Comment on above: Performed By: #### I OCAL, MG, CDP, QUINN, BMPX #### [facility] [address] [place] [phone] [employer] Operator: Juan Bauman MD Creatinine [Mass/Vol] 0.9 mg/dL Normal 0.6-0.9 [facility] Comment on above: Performed By: #### I OCAL, MG, CDP, QUINN, BMPX #### [facility] [address] [place] [phone] [employer] Operator: Juan Bauman MD GFR/1.73 sq M.predicted among non-blacks MDRD (S/P/Bld) [Vol rate/Area] 72 mL/min/{1.73_m2} Normal >60 [facility] Comment on above: Result Comment: These results are not intended for [...] following therapy that affects renal tubular secretion. Performed By: #### I OCAL, MG, CDP, QUINN, BMPX #### [facility] [address] [place] [address] [employer] Operator: Juan Bauman MD Glucose [Mass/Vol] 266 mg/dL High 74-99 [facility] Comment on above: Performed By: #### I OCAL, MG, CDP, QUINN, BMPX #### [facility] [email or web address] [address] [place] [address] [employer] Operator: Juan Bauman MD Potassium [Moles/Vol] 4.5 mmol/L Normal 3.7-5.3 [facility] Comment on above: Performed By: #### I OCAL, MG, CDP, QUINN, BMPX #### [facility] [email or web address] [address] [place] [address] [employer] Operator: Juan Bauman MD Sodium [Moles/Vol] 146 mmol/L High 136-145 [facility] Comment on above: Performed By: #### I OCAL, MG, CDP, QUINN, BMPX #### [facility] [address] [place] [address] [employer] Operator: Juan Bauman MD Urea nitrogen [Mass/Vol] 35 mg/dL High 8-23 [facility] Comment on above: Performed By: #### I OCAL, MG, CDP, QUINN, BMPX #### [facility] [email or web address] [address] [place] [address] [employer] Operator: Juan Bauman MD Basic Metabolic Panel w/ Ref esa to MGon 07-27-2024 Anion gap [Moles/Vol] 10 mmol/L 9 - 16 mmol/L [facility] Calcium [Mass/Vol] 8 mg/dL Low 8.6 - 10. 4 mg/dL [facility] Chloride [Moles/Vol] 115 mmol/L High 98 - 10 7 mmol/L [facility] CO2 [Moles/Vol] 21 mmol/L 20 - 31 mmol/L [facility] Creatinine [Mass/Vol] 0.9 mg/dL 0.6 - 0.9 mg/dL [facility] Est, Glom Filt Rate 72 - PINF [facility] Glucose [Mass/Vol] 266 mg/dL High 74 - 99 mg/dL [facility] Interpretation and review of laboratory results Abnormal [facility] Potassium [Moles/Vol] 4.5 mmol/L 3.7 - 5.3 mmol/L [facility] Sodium [Moles/Vol] 146 mmol/L High 136 - 145 mmol/L [facility] Urea nitrogen [Mass/Vol] 35 mg/dL High 8 - 23 mg/dL [facility] CBC with Auto Differentialon 07-27-2024 Basophils (Bld) [#/Vol] 0 10*3/uL B on [facility] Basophils/100 WBC (Bld) 0 % 0 - 2 % B on [facility] Eosinophils (Bld) [#/Vol] 0 10*3/uL [facility] Eosinophils/100 WBC (Bld) 0 % Low 1 - 4 % [facility] Erythrocyte distribution width (RBC) [Ratio] 14.9 % High 11.8 - 14.4 % [facility] Hematocrit (Bld) [Volume fraction] 23.7 % Low 36.3 - 47.1 % [facility] Hemoglobin (Bld) [Mass/Vol] 7.4 g/dL Low 11.9 - 15.1 g/dL [facility] Immature granulocytes (Bld) [#/Vol] 0.92 10*3/uL High [facility] Immature granulocytes/100 WBC (Bld) 3 % High 0 [facility] Interpretation and review of laboratory results Abnormal [facility] Lymphocytes/100 WBC (Bld) 10 % Low 24 - 44 % [facility] Lymphocytes/100 WBC (Bld) 3.05 % [facility] MCH (RBC) [Entitic mass] 29.1 pg 25.2 - 33.5 pg [facility] MCHC (RBC) [Mass/Vol] 31.2 g/dL 28.4 - 34.8 g/dL [facility] MCV (RBC) [Entitic vol] 93.3 fL 82.6 - 102.9 fL [facility] Monocytes/100 WBC (Bld) 6 % 1 - 7 % B on [facility] Monocytes/100 WBC (Bld) 1.83 % High B on [facility] Morphology Germán (Bld) [Interp] ANISOCYTOSIS PRESENT [facility] Neutrophils/100 WBC (Bld) 81 % High 36 - 66 % [facility] Nucleated RBC/100 WBC (Bld) [Ratio] 0.1 % High 0.0 per 100 WBC [facility] Platelet mean volume (Bld) [Entitic vol] 10.9 fL 8.1 - 13.5 fL [facility] Platelets (Bld) [#/Vol] 420 10*3/uL [facility] RBC (Bld) [#/Vol] 2.54 10*6/uL Low 3.95 - 5.1 1 m/uL [facility] Segmented neutrophils/100 WBC (Bld) 24.7 % High [facility] WBC other (Bld) [#/Vol] 30.5 Critically high [facility] CBC with Diffon 07-27-2024 Abs. Basophil 0.00 k/uL Normal 0.0-0.2 [facility] Comment on above: Performed By: #### I OCAL, MG, CDP, QUINN, BMPX #### [facility] [phone] [employer] Operator: Juan Bauman MD Abs.Imm.Granulocyte 0.92 k/uL High 0.00-0.30 [facility] Comment on above: Performed By: #### I OCAL, MG, CDP, QUINN, BMPX #### [facility] [email or web address] [address] [place] [address] [employer] Operator: Juan Bauman MD Abs.Neutrophil (Seg) 24.70 k/uL High 1.8-7.7 [facility] Comment on above: Performed By: #### I OCAL, MG, CDP, QUINN, BMPX #### [place] [address] [employer] Operator: Juan Bauman MD Basophils/100 WBC (Bld) 0 % Normal 0-2 [facility] Comment on above: Performed By: #### I OCAL, MG, CDP, QUINN, BMPX #### [place] [address] [employer] Operator: Juan Bauman MD Eosinophils (Bld) [#/Vol] 0.00 10*3/uL Normal 0.0-0.4 [facility] Comment on above: Performed By: #### I OCAL, MG, CDP, QUINN, BMPX #### [place] [address] [employer] Operator: Juan Bauman MD Eosinophils/100 WBC (Bld) 0 % Low 1-4 [facility] Comment on above: Performed By: #### I OCAL, MG, CDP, QUINN, BMPX #### [facility] [email or web address] [address] [place] [address] [employer] Operator: Juan Bauman MD Immature granulocytes/100 WBC (Bld) 3 % High 0 [facility] Comment on above: Performed By: #### I OCAL, MG, CDP, QUINN, BMPX #### [facility] [email or web address] [address] [place] [address] [employer] Operator: Juan Bauman MD Lymphocytes (Bld) [#/Vol] 3.05 10*3/uL Normal 1.0-4.8 [facility] Comment on above: Performed By: #### I OCAL, MG, CDP, QUINN, BMPX #### [address] [address] [employer] Operator: Juan Bauman MD Lymphocytes/100 WBC (Bld) 10 % Low 24-44 [facility] Comment on above: Performed By: #### I OCAL, MG, CDP, QUINN, BMPX #### [address] [address] [employer] Operator: Juan Bauman MD Monocytes (Bld) [#/Vol] 1.83 10*3/uL High 0.1-0.8 [facility] Comment on above: Performed By: #### I OCAL, MG, CDP, QUINN, BMPX #### [address] [address] [employer] Operator: Juan Bauman MD Monocytes/100 WBC (Bld) 6 % Normal 1-7 [facility] Comment on above: Performed By: #### I OCAL, MG, CDP, QUINN, BMPX #### [address] [address] [employer] Operator: Juan Bauman MD Morphology Germán (Bld) [Interp] ANISOCYTOSIS PRESENT Normal [facility] Comment on above: Performed By: #### I OCAL, MG, CDP, QUINN, BMPX #### [address] [address] [employer] Operator: Juan Bauman MD Neutrophil (Seg) 81 % High 36-66 [facility] Comment on above: Performed By: #### I OCAL, MG, CDP, QUINN, BMPX #### [address] [address] [employer] Operator: Juan Bauman MD Erythrocyte distribution width (RBC) [Ratio] 14.9 % High 11.8-14.4 [facility] Comment on above: Performed By: #### I OCAL, MG, CDP, QUINN, BMPX #### [address] [address] [employer] Operator: Juan Bauman MD Hematocrit (Bld) [Volume fraction] 23.7 % Low 36.3-47.1 [facility] Comment on above: Performed By: #### I OCAL, MG, CDP, QUINN, BMPX #### [place] [address] [employer] Operator: Juan Bauman MD Hemoglobin (Bld) [Mass/Vol] 7.4 g/dL Low 11.9-15.1 [facility] Comment on above: Performed By: #### I OCAL, MG, CDP, QUINN, BMPX #### [address] [address] [employer] Operator: Juan Bauman MD MCH (RBC) [Entitic mass] 29.1 pg Normal 25.2-33.5 [facility] Comment on above: Performed By: #### I OCAL, MG, CDP, QUINN, BMPX #### [address] [address] [employer] Operator: Juan Bauman MD MCHC (RBC) [Mass/Vol] 31.2 g/dL Normal 28.4-34.8 [facility] Comment on above: Performed By: #### I OCAL, MG, CDP, QUINN, BMPX #### [address] [address] [employer] Operator: Juan Bauman MD MCV (RBC) [Entitic vol] 93.3 fL Normal 82.6-102.9 [facility] Comment on above: Performed By: #### I OCAL, MG, CDP, QUINN, BMPX #### [facility] [email or web address] [address] [place] [address] [employer] Operator: Juan Bauman MD NRBC Automated 0.1 per 100 WBC High 0.0 [facility] Comment on above: Performed By: #### I OCAL, MG, CDP, QUINN, BMPX #### [facility] [email or web address] [address] [place] [address] [employer] Operator: Juan Bauman MD Platelet mean volume (Bld) [Entitic vol] 10.9 fL Normal 8.1-13.5 [facility] Comment on above: Performed By: #### I OCAL, MG, CDP, QUINN, BMPX #### [facility] [email or web address] [address] [place] [address] [employer] Operator: Juan Bauman MD Platelets (Bld) [#/Vol] 420 10*3/uL Normal 138-453 [facility] Comment on above: Performed By: #### I OCAL, MG, CDP, QUINN, BMPX #### [facility] [email or web address] [address] [place] [address] [employer] Operator: Juan Bauman MD RBC (Bld) [#/Vol] 2.54 10*6/uL Low 3.95-5.11 [facility] Comment on above: Performed By: #### I OCAL, MG, CDP, QUINN, BMPX #### [facility] [email or web address] [address] [place] [address] [employer] Operator: Juan Bauman MD WBC (Bld) [#/Vol] 30.5 10*3/uL Critically high 3.5-11.3 [facility] Comment on above: Performed By: #### I OCAL, MG, CDP, QUINN, BMPX #### [facility] [email or web address] [address] [place] [address] [employer] Operator: Juan Bauman MD Calcium, Ionicon 07-27-2024 Calcium [Moles/Vol] 1.14 mmol/L Normal 1.13-1.33 [facility] Comment on above: Performed By: #### I OCAL, MG, CDP, QUINN, BMPX #### [employer] [address] [place], [place] [id number] [employer] Operator: Juan Bauman MD Calcium, Ionizedon 5 Calcium.ionized (Bld) [Moles/Vol] 1.14 mmol/L 1.13 - 1.33 mmol/L [facility] Glucose (POC)on 07-27-2024 Glucose [Mass/Vol] 306 mg/dL High 74-100 [facility] Glucose,Whole Bloodon 2024 Glucose [Mass/Vol] 277 mg/dL High 65-105 [facility] Glucose [Mass/Vol] 260 mg/dL High 65-105 [facility] Glucose [Mass/Vol] 253 mg/dL High 65-105 [facility] Glucose [Mass/Vol] 238 mg/dL High 65-105 [facility] Lactic Acid (POC)on 07-28-19 25 Lactate [Moles/Vol] 0.7 mmol/L Normal 0.56-1.39 [facility] Lactic Acid, POCon 5 POC Lactic Acid 0.7 mmol/L 0.56 - 1.39 mmol/L [facility] Magnesiumon 07-27-2024 Magnesium [Mass/Vol] 2.1 mg/dL 1.6 - 2 .4 mg/dL [facility] Magnesium [Mass/Vol] 2.1 mg/dL Normal 1.6-2.4 [facility] Comment on above: Performed By: #### I OCAL, MG, CDP, QUINN, BMPX #### [employer] [address] [place], [place] [phone] [employer] Operator: Juan Bauman MD No Panel Informationon 07-27 Interpretation and review of laboratory results Abnormal [facility] POC Glucose Fingerstickon Glucose [Mass/Vol] 277 mg/dL High 65 - 105 mg/dL [facility] Interpretation and review of laboratory results Abnormal [facility] Glucose [Mass/Vol] 260 mg/dL High 65 - 105 mg/dL [facility] Interpretation and review of laboratory results Abnormal [facility] Glucose [Mass/Vol] 253 mg/dL High 65 - 105 mg/dL [facility] Interpretation and review of laboratory results Abnormal [facility] Glucose [Mass/Vol] 238 mg/dL High 65 - 105 mg/dL [facility] Interpretation and review of laboratory results Abnormal [facility] POCT Glucoseon 07-27-2024 Glucose [Mass/Vol] 306 mg/dL High 74 - 100 mg/dL [facility] Phosphoruson 07-27-2024 Phosphate [Mass/Vol] 2.5 mg/dL 2.5 - 4 .5 mg/dL [facility] Phosphorus, Inorg.on 025 Phosphorus, Inorg. 2.5 mg/dL Normal 2.5-4.5 [facility] Comment on above: Performed By: #### I OCAL, MG, CDP, QUINN, BMPX #### [facility] [place] [address] [employer] Operator: Juan Bauman MD Portable XR Chest AP single viewon 07-27-2024 PN RIS CONSOLIDATED PN RIS CONSOLIDATED [facility] Radiology Study observation (narrative) [facility] Portable XR Chest AP single viewOrdered By: Raleigh Hackett on 07-27-2024 [facility] Work Phone: TYPE AND SCREENon 07-27-2024 ABO/Rh Positive [facility] Arm Band Number [id number] [facility] Blood Bank Blood Product Expiration Date [id number] [facility] Blood Bank ISBT Product Blood Type 1440 [facility] Blood Bank Sample Expiration 07/27/2024,2359 [facility] Blood Bank Unit Type and Rh Positive [facility] Blood product unit ID (Dose) [#] [id number] [facility] Component Leukocyte Reduced Re d Cell [facility] Crossmatch Result COMPATIBLE [facility] Dispense Status Blood Bank TRANSFUSED [facility] Product Code Blood Bank [id number] B on [facility] Transfusion Status OK TO TRANSFUSE B on [facility] Unit Divison 0 [facility] Unit Issue Date/Time [id number] [facility] XR CHEST PORTABLEon 07-28-19 XR CHEST PORTABLE EXAM: 1 VIEW XRAY OF THE CHEST 07/27/2024 04:48:12 AM COMPARISON: Chest x-ray 07/26/2024. CLINICAL HISTORY: Intubated. FINDINGS: LUNGS AND PLEURA: Prominent pulmonary vasculature and interstitial markings are similar to the prior study. No focal pulmonary opacity. No pulmonary edema. No pleural effusion. No pneumothorax. HEART AND MEDIASTINUM: No acute abnormality of the cardiac and mediastinal silhouettes. BONES AND SOFT TISSUES: No acute osseous abnormality. LINES AND TUBES: Right internal jugular central venous catheter is stable in position. NG tube extends beyond the field of view. IMPRESSION: 1. Prominent pulmonary vasculature and interstitial markings, similar to the prior study. Interpreted by: Raleigh Hackett MD Signed by: Raleigh Hackett MD 07/27/24 Final result Normal [facility] Arterial Bld Gas,POCon 07-26 Anthony Test Positive Normal [facility] FIO2 40.0 Normal [facility] HCO3 (Bld) [Moles/Vol] 22.1 mmol/L Normal 21.0-28.0 M [facility] Negative Base Excess (calc) 3.8 mmol/L High 0.0-2.0 [facility] Oxygen saturation in Blood 95.1 % Normal 94.0-98.0 [facility] pCO2, Arterial 42.8 mm Hg Normal 35.0-48.0 [facility] pH, Arterial 7.321 Low 7.350-7.450 [facility] pO2, Arterial 82.2 mm Hg Low 83.0-108.0 [facility] Site Drawn Right Radial Artery Normal [facility] Anthony Test Positive Normal [facility] FIO2 40.0 Normal [facility] HCO3 (Bld) [Moles/Vol] 23.3 mmol/L Normal 21.0-28.0 M [facility] Mode of Delivery PRVC Normal [facility] Negative Base Excess (calc) 1.4 mmol/L Normal 0.0-2.0 [facility] O2 Device Adult Ventilator Normal [facility] Oxygen saturation in Blood 98.0 % Normal 94.0-98.0 [facility] pCO2, Arterial 37.8 mm Hg Normal 35.0-48.0 [facility] pH, Arterial 7.397 Normal 7.350-7.450 [facility] pO2, Arterial 104.6 mm Hg Normal 83.0-108.0 [facility] Site Drawn Right Radial Artery Normal [facility] Arterial Blood Gas, POCon Anthony Test Positive [facility] FIO2 40 [facility] HCO3 (Bld) [Moles/Vol] 22.1 mmol/L 21.0 - 28.0 mmol/L [facility] [employer] Negative Base Excess, Art 3.8 mmol/L High 0.0 - 2.0 mmol/L [facility] Oxygen saturation in Blood 95.1 % 94.0 - 98.0 % [facility] POC pCO2 42.8 [facility] POC pH 7.321 Low 7.350 - 7.450 [facility] [employer] POC PO2 82.2 Low [facility] Sample Site Right Radial Artery [facility] Anthony Test Positive [facility] FIO2 40 Bon [facility] [employer] HCO3 (Bld) [Moles/Vol] 23.3 mmol/L 21.0 - 28.0 mmol/L [facility] Mode PRVC [facility] Negative Base Excess, Art 1.4 mmol/L 0.0 - 2.0 mmol/L [facility] O2 Delivery Device Adult Ventilator [facility] Oxygen saturation in Blood 98 % 94.0 - 98.0 % [facility] POC pCO2 37.8 [facility] POC pH 7.397 7.350 - 7.450 [facility] POC PO2 104.6 [facility] Sample Site Right Radial Artery [facility] Basic Metab w/rfx MGon 07-26 Anion gap [Moles/Vol] 8 mmol/L Low 9-16 [facility] Comment on above: Performed By: #### P HO, IOCAL, BMPX, CDP, MG ####[facility] [address] [place], [place] [address])[phone] Director: Juan Bauman MD Calcium [Mass/Vol] 8.2 mg/dL Low 8.6-10.4 [facility] Comment on above: Performed By: #### P HO, IOCAL, BMPX, CDP, MG ####[facility] [address] [place], [place] [address])[phone] Director: Juan Bauman MD Chloride [Moles/Vol] 116 mmol/L High 98-107 [facility] Comment on above: Performed By: #### P HO, IOCAL, BMPX, CDP, MG ####[facility] [address] [place] [address] Lab Director: Juan Bauman MD CO2 [Moles/Vol] 23 mmol/L Normal 20-31 [facility] Comment on above: Performed By: #### P HO, IOCAL, BMPX, CDP, MG ####[facility] [address] [place], [place] [address])[phone] Director: Juan Bauman MD Creatinine [Mass/Vol] 0.8 mg/dL Normal 0.6-0.9 [facility] Comment on above: Performed By: #### P HO, IOCAL, BMPX, CDP, MG ####[facility] [address] [place] [address] Lab Director: Juan Bauman MD GFR/1.73 sq M.predicted among non-blacks MDRD (S/P/Bld) [Vol rate/Area] 83 mL/min/{1.73_m2} Normal >60 [facility] Comment on above: Result Comment: These results are not intended for [...] following therapy that affects renal tubular secretion. Performed By: #### P HO, IOCAL, BMPX, CDP, MG ####[facility] [address] [place] [address] Lab Director: Juan Bauman MD Glucose [Mass/Vol] 136 mg/dL High 74-99 [facility] Comment on above: Performed By: #### P HO, IOCAL, BMPX, CDP, MG ####[facility] [address] [place] [address] Lab Director: Juan Bauman MD Potassium [Moles/Vol] 3.9 mmol/L Normal 3.7-5.3 [facility] Comment on above: Performed By: #### P HO, IOCAL, BMPX, CDP, MG ####[facility] [address] [place] [address] Lab Director: Juan Bauman MD Sodium [Moles/Vol] 147 mmol/L High 136-145 [facility] Comment on above: Performed By: #### P HO, IOCAL, BMPX, CDP, MG ####[facility] [address] [place] [address] Lab Director: Juan Bauman MD Urea nitrogen [Mass/Vol] 38 mg/dL High 8-23 [facility] Comment on above: Performed By: #### P HO, IOCAL, BMPX, CDP, MG ####[facility] [address] [place] [address] lab Director: Juan Bauman MD Basic Metabolic Panelon 07-14 Anion gap [Moles/Vol] 10 mmol/L 9 - 16 mmol/L [facility] Calcium [Mass/Vol] 8.2 mg/dL Low 8.6 - 10. 4 mg/dL Bon [facility] Chloride [Moles/Vol] 115 mmol/L High 98 - 10 7 mmol/L [facility] CO2 [Moles/Vol] 21 mmol/L 20 - 31 mmol/L [facility] Creatinine [Mass/Vol] 0.8 mg/dL 0.6 - 0.9 mg/dL [facility] [employer] Est, Glom Filt Rate 83 - PINF Bon [facility] Glucose [Mass/Vol] 169 mg/dL High 74 - 99 mg/dL [facility] Interpretation and review of laboratory results Abnormal [facility] Potassium [Moles/Vol] 4.4 mmol/L 3.7 - 5.3 mmol/L [facility] Sodium [Moles/Vol] 146 mmol/L High 136 - 145 mmol/L [facility] Urea nitrogen [Mass/Vol] 34 mg/dL High 8 - 23 mg/dL [facility] Basic Metabolic Panel w/ Ref esa to MGon 07-26-2024 Anion gap [Moles/Vol] 8 mmol/L Low 9 - 16 mmol/L [facility] Calcium [Mass/Vol] 8.2 mg/dL Low 8.6 - 10. 4 mg/dL Bon [facility] Chloride [Moles/Vol] 116 mmol/L High 98 - 10 7 mmol/L [facility] CO2 [Moles/Vol] 23 mmol/L 20 - 31 mmol/L [facility] Creatinine [Mass/Vol] 0.8 mg/dL 0.6 - 0.9 mg/dL [facility] Est, Glom Filt Rate 83 - PINF [facility] Glucose [Mass/Vol] 136 mg/dL High 74 - 99 mg/dL [facility] Potassium [Moles/Vol] 3.9 mmol/L 3.7 - 5.3 mmol/L [facility] Sodium [Moles/Vol] 147 mmol/L High 136 - 145 mmol/L [facility] Urea nitrogen [Mass/Vol] 38 mg/dL High 8 - 23 mg/dL [facility] Basic Metabolic Profon 07-26 Anion gap [Moles/Vol] 10 mmol/L Normal 9-16 [facility] Comment on above: Performed By: #### I OCAL, MG, CDP, QUINN, BMPX #### [facility] [address] [place] [address] [employer] Operator: Juan Bauman MD Calcium [Mass/Vol] 8.2 mg/dL Low 8.6-10.4 [facility] Comment on above: Performed By: #### I OCAL, MG, CDP, QUINN, BMPX #### [employer] [address] [place], [place] [phone] [employer] Operator: Juan Bauman MD Chloride [Moles/Vol] 115 mmol/L High 98-107 [facility] Comment on above: Performed By: #### I OCAL, MG, CDP, QUINN, BMPX #### [employer] [address] [place], [place] [phone] [employer] Operator: Juan Bauman MD CO2 [Moles/Vol] 21 mmol/L Normal 20-31 [facility] Comment on above: Performed By: #### I OCAL, MG, CDP, QUINN, BMPX #### [employer] [address] [place] [address] [employer] Operator: Juan Bauman MD Creatinine [Mass/Vol] 0.8 mg/dL Normal 0.6-0.9 [facility] Comment on above: Performed By: #### I OCAL, MG, CDP, QUINN, BMPX #### [facility] [email or web address] [address] [place] [phone] [employer] Operator: Juan Bauman MD GFR/1.73 sq M.predicted among non-blacks MDRD (S/P/Bld) [Vol rate/Area] 83 mL/min/{1.73_m2} Normal >60 [facility] Comment on above: Result Comment: These results are not intended for [...] following therapy that affects renal tubular secretion. Performed By: #### I OCAL, MG, CDP, QUINN, BMPX #### [facility] [email or web address] [address] [place] [address] [employer] Operator: Juan Bauman MD Glucose [Mass/Vol] 169 mg/dL High 74-99 [facility] Comment on above: Performed By: #### I OCAL, MG, CDP, QUINN, BMPX #### [facility] [email or web address] [address] [place] [address] [employer] Operator: Juan Bauman MD Potassium [Moles/Vol] 4.4 mmol/L Normal 3.7-5.3 [facility] Comment on above: Performed By: #### I OCAL, MG, CDP, QUINN, BMPX #### [facility] [address] [place] [address] [employer] Operator: Juan Bauman MD Sodium [Moles/Vol] 146 mmol/L High 136-145 [facility] Comment on above: Performed By: #### I OCAL, MG, CDP, QUINN, BMPX #### [facility] [address] [place] [phone] [employer] Operator: Juan Bauman MD Urea nitrogen [Mass/Vol] 34 mg/dL High 8-23 [facility] Comment on above: Performed By: #### I OCAL, MG, CDP, QUINN, BMPX #### [facility] [address] [place], [place] [phone] [employer] Operator: Juan Bauman MD CBCon 07-26-2024 Erythrocyte distribution width (RBC) [Ratio] 14.6 % High 11.8 - 14.4 % [facility] Hematocrit (Bld) [Volume fraction] 27.2 % Low 36.3 - 47.1 % [facility] Hemoglobin (Bld) [Mass/Vol] 8.6 g/dL Low 11.9 - 15.1 g/dL [facility] Interpretation and review of laboratory results Abnormal [facility] MCH (RBC) [Entitic mass] 29.5 pg 25.2 - 33.5 pg [facility] MCHC (RBC) [Mass/Vol] 31.6 g/dL 28.4 - 34.8 g/dL [facility] MCV (RBC) [Entitic vol] 93.2 fL 82.6 - 102.9 fL [facility] Nucleated RBC/100 WBC (Bld) [Ratio] 0.2 % High 0.0 per 100 WBC [facility] Platelet mean volume (Bld) [Entitic vol] 11.1 fL 8.1 - 13.5 fL [facility] Platelets (Bld) [#/Vol] 411 10*3/uL [facility] RBC (Bld) [#/Vol] 2.92 10*6/uL Low 3.95 - 5.1 1 m/uL [facility] WBC other (Bld) [#/Vol] 29.5 High B [facility] Erythrocyte distribution width (RBC) [Ratio] 14.6 % High 11.8-14.4 [facility] Comment on above: Performed By: #### I OCAL, MG, CDP, QUINN, BMPX #### [facility] [address] [place] [address] [employer] Operator: Juan Bauman MD Hematocrit (Bld) [Volume fraction] 27.2 % Low 36.3-47.1 [facility] Comment on above: Performed By: #### I OCAL, MG, CDP, QUINN, BMPX #### [address] [phone] [employer] Operator: Juan Bauman MD Hemoglobin (Bld) [Mass/Vol] 8.6 g/dL Low 11.9-15.1 [facility] Comment on above: Performed By: #### I OCAL, MG, CDP, QUINN, BMPX #### [place] [address] [employer] Operator: Juan Bauman MD MCH (RBC) [Entitic mass] 29.5 pg Normal 25.2-33.5 [facility] Comment on above: Performed By: #### I OCAL, MG, CDP, QUINN, BMPX #### [address] [phone] [employer] Operator: Juan Bauman MD MCHC (RBC) [Mass/Vol] 31.6 g/dL Normal 28.4-34.8 [facility] Comment on above: Performed By: #### I OCAL, MG, CDP, QUINN, BMPX #### [place] [address] [employer] Operator: Juan Bauman MD MCV (RBC) [Entitic vol] 93.2 fL Normal 82.6-102.9 M [facility] Comment on above: Performed By: #### I OCAL, MG, CDP, QUINN, BMPX #### [address] [phone] [employer] Operator: Juan Bauman MD NRBC Automated 0.2 per 100 WBC High 0.0 [facility] Comment on above: Performed By: #### I OCAL, MG, CDP, QUINN, BMPX #### [facility] [email or web address] [address] [place] [phone] [employer] Operator: Juan Bauman MD Platelet mean volume (Bld) [Entitic vol] 11.1 fL Normal 8.1-13.5 [facility] Comment on above: Performed By: #### I OCAL, MG, CDP, QUINN, BMPX #### [facility] [email or web address] [address] [place] [phone] [employer] Operator: Juan Bauman MD Platelets (Bld) [#/Vol] 411 10*3/uL Normal 138-453 [facility] Comment on above: Performed By: #### I OCAL, MG, CDP, QUINN, BMPX #### [facility] [email or web address] [address] [place] [address] [employer] Operator: Juan Bauman MD RBC (Bld) [#/Vol] 2.92 10*6/uL Low 3.95-5.11 [facility] Comment on above: Performed By: #### I OCAL, MG, CDP, QUINN, BMPX #### [facility] [email or web address] [address] [place] [address] [employer] Operator: Juan Bauman MD WBC (Bld) [#/Vol] 29.5 10*3/uL High 3.5-11.3 [facility] Comment on above: Performed By: #### I OCAL, MG, CDP, QUINN, BMPX #### [facility] [email or web address] [address] [place] [address] [employer] Operator: Juan Bauman MD CBC with Auto Differentialon 07-26-2024 Basophils (Bld) [#/Vol] 0 10*3/uL B on [facility] [employer] Basophils/100 WBC (Bld) 0 % 0 - 2 % B on [facility] Eosinophils (Bld) [#/Vol] 0.36 10*3/uL Bon [facility] [employer] Eosinophils/100 WBC (Bld) 1 % 1 - 4 % Bon [facility] Erythrocyte distribution width (RBC) [Ratio] 13.6 % 11.8 - 14.4 % [facility] Hematocrit (Bld) [Volume fraction] 21.3 % Low 36.3 - 47.1 % [facility] Hemoglobin (Bld) [Mass/Vol] 6.8 g/dL Critically low 11.9 - 15.1 g/dL [facility] Immature granulocytes (Bld) [#/Vol] 0.72 10*3/uL High [facility] Immature granulocytes/100 WBC (Bld) 2 % High 0 [facility] Interpretation and review of laboratory results Abnormal [facility] Lymphocytes/100 WBC (Bld) 19 % Low 24 - 44 % [facility] Lymphocytes/100 WBC (Bld) 6.82 % High [facility] MCH (RBC) [Entitic mass] 29.6 pg 25.2 - 33.5 pg [facility] MCHC (RBC) [Mass/Vol] 31.9 g/dL 28.4 - 34.8 g/dL [facility] MCV (RBC) [Entitic vol] 92.6 fL 82.6 - 102.9 fL [facility] Monocytes/100 WBC (Bld) 3 % 1 - 7 % B on [facility] Monocytes/100 WBC (Bld) 1.08 % High B on [facility] Morphology Germán (Bld) [Interp] Normal [facility] Neutrophils/100 WBC (Bld) 75 % High 36 - 66 % [facility] Nucleated RBC/100 WBC (Bld) [Ratio] 0.2 % High 0.0 per 100 WBC [facility] Platelet mean volume (Bld) [Entitic vol] 11.5 fL 8.1 - 13.5 fL [facility] Platelets (Bld) [#/Vol] 350 10*3/uL [facility] RBC (Bld) [#/Vol] 2.3 10*6/uL Low 3.95 - 5.1 1 m/uL [facility] Segmented neutrophils/100 WBC (Bld) 26.92 % High [facility] WBC other (Bld) [#/Vol] 35.9 Critically high Bon [facility] CBC with Diffon 07-26-2024 Abs. Basophil 0.00 k/uL Normal 0.0-0.2 [facility] Comment on above: Performed By: #### P HO, IOCAL, BMPX, CDP, MG ####[facility] [address] [place] [address] Lab Director: Juan Bauman MD Abs.Imm.Granulocyte 0.72 k/uL High 0.00-0.30 [facility] Comment on above: Performed By: #### P HO, IOCAL, BMPX, CDP, MG ####[facility] [address] [place], [place] [address])[phone] Director: Juan Bauman MD Abs.Neutrophil (Seg) 26.92 k/uL High 1.8-7.7 [facility] Comment on above: Performed By: #### P HO, IOCAL, BMPX, CDP, MG ####[facility] [address] [place], [place] [address])[phone] Director: Juan Bauman MD Basophils/100 WBC (Bld) 0 % Normal 0-2 [facility] Comment on above: Performed By: #### P HO, IOCAL, BMPX, CDP, MG ####[facility] [address]pr[address] [place], [place] [address])[phone] Director: Juan Bauman MD Eosinophils (Bld) [#/Vol] 0.36 10*3/uL Normal 0.0-0.4 [facility] Comment on above: Performed By: #### P HO, IOCAL, BMPX, CDP, MG ####[facility] [address] [place], [place] [address])[phone] Director: Juan Bauamn MD Eosinophils/100 WBC (Bld) 1 % Normal 1-4 [facility] Comment on above: Performed By: #### P HO, IOCAL, BMPX, CDP, MG ####[facility] [address] [place], [place] [phone] Director: Juan Bauman MD Immature granulocytes/100 WBC (Bld) 2 % High 0 [facility] Comment on above: Performed By: #### P HO, IOCAL, BMPX, CDP, MG ####[facility] [address] [place], [place] [address])[phone] Director: Juan Bauman MD Lymphocytes (Bld) [#/Vol] 6.82 10*3/uL High 1.0-4.8 [facility] Comment on above: Performed By: #### P HO, IOCAL, BMPX, CDP, MG ####[address] [address])[phone] Director: Juan Bauman MD Lymphocytes/100 WBC (Bld) 19 % Low 24-44 [facility] Comment on above: Performed By: #### P HO, IOCAL, BMPX, CDP, MG ####[address] [address])[phone] Director: Juan Bauman MD Monocytes (Bld) [#/Vol] 1.08 10*3/uL High 0.1-0.8 [facility] Comment on above: Performed By: #### P HO, IOCAL, BMPX, CDP, MG ####[facility] [address] [place] [address] [phone] Director: Juan Bauman MD Monocytes/100 WBC (Bld) 3 % Normal 1-7 [facility] Comment on above: Performed By: #### P HO, IOCAL, BMPX, CDP, MG ####[facility] [address] [place], [place] [phone] Director: Juan Bauman MD Morphology Germán (Bld) [Interp] Normal Normal [facility] Comment on above: Performed By: #### P HO, IOCAL, BMPX, CDP, MG ####[facility] [address] [place] [address] Lab Director: Juan Bauman MD Neutrophil (Seg) 75 % High 36-66 [facility] Comment on above: Performed By: #### P HO, IOCAL, BMPX, CDP, MG ####[facility] [address] [place] [address] Lab Director: Juan Bauman MD Erythrocyte distribution width (RBC) [Ratio] 13.6 % Normal 11.8-14.4 [facility] Comment on above: Performed By: #### P HO, IOCAL, BMPX, CDP, MG ####[facility] [address] [place] [address] Lab Director: Juan Bauman MD Hematocrit (Bld) [Volume fraction] 21.3 % Low 36.3-47.1 [facility] Comment on above: Performed By: #### P HO, IOCAL, BMPX, CDP, MG ####[facility] [address] [place] [address] Lab Director: Juan Bauman MD Hemoglobin (Bld) [Mass/Vol] 6.8 g/dL Critically low 11.9-15.1 [facility] Comment on above: Performed By: #### P HO, IOCAL, BMPX, CDP, MG ####[facility] [address] [place], [place] [phone] Director: Juan Bauman MD MCH (RBC) [Entitic mass] 29.6 pg Normal 25.2-33.5 [facility] Comment on above: Performed By: #### P HO, IOCAL, BMPX, CDP, MG ####[facility] [address] [place] [address] Lab Director: Juan Bauman MD MCHC (RBC) [Mass/Vol] 31.9 g/dL Normal 28.4-34.8 [facility] Comment on above: Performed By: #### P HO, IOCAL, BMPX, CDP, MG ####[facility] [address] [place] [address] [phone] Director: Juan Bauman MD MCV (RBC) [Entitic vol] 92.6 fL Normal 82.6-102.9 [facility] Comment on above: Performed By: #### P HO, IOCAL, BMPX, CDP, MG ####[facility] [address] [place] [address] [phone] Director: Juan Bauman MD NRBC Automated 0.2 per 100 WBC High 0.0 [facility] Comment on above: Performed By: #### P HO, IOCAL, BMPX, CDP, MG ####[address] [phone] Director: Juan Bauman MD Platelet mean volume (Bld) [Entitic vol] 11.5 fL Normal 8.1-13.5 [facility] Comment on above: Performed By: #### P HO, IOCAL, BMPX, CDP, MG ####[facility] [address] [place] [address] [phone] Director: Juan Bauman MD Platelets (Bld) [#/Vol] 350 10*3/uL Normal 138-453 [facility] Comment on above: Performed By: #### P HO, IOCAL, BMPX, CDP, MG ####[facility] [address] [place] [address] [phone] Director: Juan Bauman MD RBC (Bld) [#/Vol] 2.30 10*6/uL Low 3.95-5.11 [facility] Comment on above: Performed By: #### P HO, IOCAL, BMPX, CDP, MG ####[facility] [address] [place] [address] [phone] lab Director: Juan Bauman MD WBC (Bld) [#/Vol] 35.9 10*3/uL Critically high 3.5-11.3 [facility] Comment on above: Result Comment: Prev ious Alert Value Reported Performed By: #### P HO, IOCAL, BMPX, CDP, MG ####[facility] [address] [place], [place] [phone] lab Director: Juan Bauman MD Calcium, Ionicon 07-26-2024 Calcium [Moles/Vol] 1.14 mmol/L Normal 1.13-1.33 [facility] Comment on above: Performed By: #### P HO, IOCAL, BMPX, CDP, MG ####[facility] [address] [place], [place] 2000608 lab Director: Juan Bauman MD Calcium, Ionizedon Calcium.ionized (Bld) [Moles/Vol] 1.14 mmol/L 1.13 - 1.33 mmol/L [facility] Glucose (POC)on 07-26-2024 Glucose [Mass/Vol] 168 mg/dL High 74-100 [facility] Glucose [Mass/Vol] 144 mg/dL High 74-100 [facility] Glucose,Whole Bloodon 2024 Glucose [Mass/Vol] 276 mg/dL High 65-105 [facility] Glucose [Mass/Vol] 189 mg/dL High 65-105 [facility] Glucose [Mass/Vol] 162 mg/dL High 65-105 [facility] Glucose [Mass/Vol] 152 mg/dL High 65-105 [facility] Glucose [Mass/Vol] 162 mg/dL High 65-105 [facility] Glucose [Mass/Vol] 141 mg/dL High 65-105 [facility] Glucose [Mass/Vol] 183 mg/dL High 65-105 [facility] Glucose [Mass/Vol] 144 mg/dL High 65-105 [facility] Glucose [Mass/Vol] 145 mg/dL High 65-105 [facility] Glucose [Mass/Vol] 147 mg/dL High 65-105 [facility] Glucose [Mass/Vol] 139 mg/dL High 65-105 [facility] Glucose [Mass/Vol] 142 mg/dL High 65-105 [facility] Glucose [Mass/Vol] 120 mg/dL High 65-105 [facility] Glucose [Mass/Vol] 136 mg/dL High 65-105 [facility] Glucose [Mass/Vol] 146 mg/dL High 65-105 [facility] Glucose [Mass/Vol] 148 mg/dL High -105 [facility] Hemoglobin and Hematocriton 07-26-2024 Hematocrit (Bld) [Volume fraction] 26.7 % Low 36.3 - 47.1 % [facility] Hemoglobin (Bld) [Mass/Vol] 8.3 g/dL Low 11.9 - 15.1 g/dL [facility] Interpretation and review of laboratory results Abnormal [facility] Hgb/Hcton 07-26-2024 Hematocrit (Bld) [Volume fraction] 26.7 % Low 36.3-47.1 [facility] Comment on above: Performed By: #### I OCAL, MG, CDP, QUINN, BMPX #### [facility] [address] [place], [place] [id number] [employer] Operator: Juan Bauman MD Hemoglobin (Bld) [Mass/Vol] 8.3 g/dL Low 11.9-15.1 [facility] Comment on above: Performed By: #### I OCAL, MG, CDP, QUINN, BMPX #### [facility] [address] [place] [address] [employer] Operator: Juan Bauman MD Lactic Acid (POC)on 07-27-19 25 Lactate [Moles/Vol] 0.7 mmol/L Normal 0.56-1.39 [facility] Lactic Acid, POCon POC Lactic Acid 0.7 mmol/L 0.56 - 1.39 mmol/L [facility] Magnesiumon 07-26-2024 Magnesium [Mass/Vol] 2.2 mg/dL 1.6 - 2 .4 mg/dL [facility] Magnesium [Mass/Vol] 2.2 mg/dL Normal 1.6-2.4 [facility] Comment on above: Performed By: #### I OCAL, MG, CDP, QUINN, BMPX #### [facility] [address] [place] [address] [employer] Operator: Juan Bauman MD Magnesium [Mass/Vol] 1.9 mg/dL 1.6 - 2 .4 mg/dL [facility] Magnesium [Mass/Vol] 1.9 mg/dL Normal 1.6-2.4 [facility] Comment on above: Performed By: #### P HO, IOCAL, BMPX, CDP, MG ####[facility] [address] [place], [place] [phone] Lab Director: Juan Bauman MD No Panel Informationon 07-26 [facility] Interpretation and review of laboratory results Abnormal [facility] Interpretation and review of laboratory results Abnormal [facility] POC Glucose Fingerstickon Glucose [Mass/Vol] 276 mg/dL High 65 - 105 mg/dL [facility] Interpretation and review of laboratory results Abnormal [facility] Glucose [Mass/Vol] 189 mg/dL High 65 - 105 mg/dL [facility] Interpretation and review of laboratory results Abnormal [facility] Glucose [Mass/Vol] 162 mg/dL High 65 - 105 mg/dL [facility] Interpretation and review of laboratory results Abnormal [facility] Glucose [Mass/Vol] 152 mg/dL High 65 - 105 mg/dL [facility] Interpretation and review of laboratory results Abnormal [facility] Glucose [Mass/Vol] 162 mg/dL High 65 - 105 mg/dL [facility] Interpretation and review of laboratory results Abnormal [facility] Glucose [Mass/Vol] 141 mg/dL High 65 - 105 mg/dL [facility] Interpretation and review of laboratory results Abnormal [facility] Glucose [Mass/Vol] 183 mg/dL High 65 - 105 mg/dL [facility] Interpretation and review of laboratory results Abnormal [facility] Glucose [Mass/Vol] 144 mg/dL High 65 - 105 mg/dL [facility] Interpretation and review of laboratory results Abnormal [facility] Glucose [Mass/Vol] 145 mg/dL High 65 - 105 mg/dL [facility] Interpretation and review of laboratory results Abnormal [facility] Glucose [Mass/Vol] 147 mg/dL High 65 - 105 mg/dL [facility] Interpretation and review of laboratory results Abnormal [facility] Glucose [Mass/Vol] 139 mg/dL High 65 - 105 mg/dL [facility] Interpretation and review of laboratory results Abnormal [facility] Glucose [Mass/Vol] 142 mg/dL High 65 - 105 mg/dL [facility] Interpretation and review of laboratory results Abnormal [facility] Glucose [Mass/Vol] 120 mg/dL High 65 - 105 mg/dL [facility] Interpretation and review of laboratory results Abnormal [facility] Glucose [Mass/Vol] 136 mg/dL High 65 - 105 mg/dL [facility] Interpretation and review of laboratory results Abnormal [facility] Glucose [Mass/Vol] 146 mg/dL High 65 - 105 mg/dL [facility] Interpretation and review of laboratory results Abnormal [facility] Glucose [Mass/Vol] 148 mg/dL High 65 - 105 mg/dL [facility] Interpretation and review of laboratory results Abnormal [facility] POCT Glucoseon 07-26-2024 Glucose [Mass/Vol] 168 mg/dL High 74 - 100 mg/dL [facility] Glucose [Mass/Vol] 144 mg/dL High 74 - 100 mg/dL [facility] Interpretation and review of laboratory results Abnormal [facility] Phosphoruson 07-26-2024 Phosphate [Mass/Vol] 2.3 mg/dL Low 2.5 - 4 .5 mg/dL [facility] Phosphorus, Inorg.on 025 Phosphorus, Inorg. 2.3 mg/dL Low 2.5-4.5 [facility] Comment on above: Performed By: #### P HO, IOCAL, BMPX, CDP, MG ####[facility] [address] [place] [address] Lab Director: Juan Bauman MD Portable XR Chest AP single viewon 07-26-2024 PN RIS CONSOLIDATED [facility] RIS CONSOLIDATED [facility] Radiology Study observation (narrative) [facility] RIS CONSOLIDATED [facility] RIS CONSOLIDATED [facility] Radiology Study observation (narrative) [facility] Portable XR Chest AP single viewOrdered By: Adolfo Ramirez on 07-26-2024 [facility] Work Phone: Type + Screenon 07-26-2024 Type + Screen Sample Expiration 07/27/2024,2359 Arm Band Number [id number] ABO/Rh(D) A POSITIVE Antibody Screen NEGATIVE Unit Number [id number] Blood Component Type Leukocyte Reduced Red Cell Unit Division 00 Status of Unit TRANSFUSED Transfusion Status OK TO TRANSFUSE Crossmatch Result COMPATIBLE Normal [facility] Comment on above: Performed By: #### I OCAL, MG, CDP, QUINN, BMPX #### [facility] [address] [place] [address] [employer] Operator: Juan Bauman MD XR CHEST PORTABLEon 07-27-19 25 XR CHEST PORTABLE EXAMINATION: ONE XRAY VIEW OF THE CHEST 07/26/2024 3:15 pm COMPARISON: 07/26/2024 at 4:53 a.m. HISTORY: ORDERING SYSTEM PROVIDED HISTORY: s/p OR, intubated TECHNOLOGIST PROVIDED HISTORY: s/p OR, intubated FINDINGS: Endotracheal tube, NG tube and right jugular central venous catheter remain in place. Heart size stable. No pneumothorax. Pulmonary vascular congestion. Right basilar opacity. IMPRESSION: Pulmonary vascular congestion Right basilar opacities suggesting atelectasis Interpreted by: Adolfo Ramirez MD Signed by: Adolfo Ramirez MD 07/26/24 Final result Normal [facility] XR CHEST PORTABLE EXAMINATION: ONE XRAY VIEW OF THE CHEST 07/26/2024 5:34 am COMPARISON: Chest radiograph 07/25/2024 HISTORY: ORDERING SYSTEM PROVIDED HISTORY: intubated TECHNOLOGIST PROVIDED HISTORY: intubated FINDINGS: Endotracheal tube with tip projecting 7-8cm above the khushbu. Enteric tube projects past the GE junction with tip projecting beyond field of view. Right internal jugular central venous catheter with tip projecting over the mid SVC. Similar mild pulmonary vascular congestion with small left pleural effusion. No new focal consolidation. No pneumothorax. Unchanged cardiomediastinal silhouette. No acute osseous abnormality. IMPRESSION: 1. Stable lines and tubes. 2. Similar mild pulmonary vascular congestion with small left pleural effusion. Interpreted by: Elizabteh Chaney MD Signed by: Elizabeth Chaney MD 07/26/24 CC Recipients: Kelly Eastman MD - In Basket (authorizing provider) Final result Normal [facility] Arterial Bld Gas,POCon 07-25 Anthony Test Positive Normal [facility] FIO2 40.0 Normal [facility] HCO3 (Bld) [Moles/Vol] 23.8 mmol/L Normal 21.0-28.0 M [facility] Mode of Delivery PRVC Normal [facility] Negative Base Excess (calc) 1.1 mmol/L Normal 0.0-2.0 [facility] O2 Device Adult Ventilator Normal [facility] Oxygen saturation in Blood 98.4 % High 94.0-98.0 [facility] pCO2, Arterial 39.6 mm Hg Normal 35.0-48.0 [facility] pH, Arterial 7.387 Normal 7.350-7.450 [facility] pO2, Arterial 114.0 mm Hg High 83.0-108.0 [facility] Site Drawn Right Radial Artery Normal [facility] Arterial Blood Gas, POCon Anthony Test Positive [facility] [employer] FIO2 40 [facility] [employer] HCO3 (Bld) [Moles/Vol] 23.8 mmol/L 21.0 - 28.0 mmol/L [facility] [employer] Mode PRVC [facility] [employer] Negative Base Excess, Art 1.1 mmol/L 0.0 - 2.0 mmol/L [facility] [employer] O2 Delivery Device Adult Ventilator [facility] [employer] Oxygen saturation in Blood 98.4 % High 94.0 - 98.0 % [facility] [employer] POC pCO2 39.6 [facility] [employer] POC pH 7.387 7.350 - 7.450 [facility] [employer] POC PO2 114 High [facility] [employer] Sample Site Right Radial Artery [facility] Basic Metab w/rfx MGon 07-25 Anion gap [Moles/Vol] 9 mmol/L Normal 9-16 [facility] Comment on above: Performed By: #### I OCAL, MG, CDP, QUINN, BMPX #### [facility] [address] [place] [address] [employer] Operator: Juan Bauman MD Calcium [Mass/Vol] 8.1 mg/dL Low 8.6-10.4 [facility] Comment on above: Performed By: #### I OCAL, MG, CDP, QUINN, BMPX #### [facility] [address] [place], [place] [id number] [employer] Operator: Juan Bauman MD Chloride [Moles/Vol] 115 mmol/L High 98-107 [facility] Comment on above: Performed By: #### I OCAL, MG, CDP, QUINN, BMPX #### [facility] [address] [place] [id number] [employer] Operator: Juan Bauman MD CO2 [Moles/Vol] 22 mmol/L Normal 20-31 [facility] Comment on above: Performed By: #### I OCAL, MG, CDP, QUINN, BMPX #### [address] [address] [employer] Operator: Juan Bauman MD Creatinine [Mass/Vol] 0.9 mg/dL Normal 0.6-0.9 [facility] Comment on above: Performed By: #### I OCAL, MG, CDP, QUINN, BMPX #### [address] [address] [employer] Operator: Juan Bauman MD GFR/1.73 sq M.predicted among non-blacks MDRD (S/P/Bld) [Vol rate/Area] 72 mL/min/{1.73_m2} Normal >60 [facility] Comment on above: Result Comment: These results are not intended for [...] following therapy that affects renal tubular secretion. Performed By: #### I OCAL, MG, CDP, QUINN, BMPX #### [address] [address] [employer] Operator: Juan Bauman MD Glucose [Mass/Vol] 160 mg/dL High 74-99 [facility] Comment on above: Performed By: #### I OCAL, MG, CDP, QUINN, BMPX #### [address] [address] [employer] Operator: Juan Bauman MD Potassium [Moles/Vol] 4.0 mmol/L Normal 3.7-5.3 [facility] Comment on above: Performed By: #### I OCAL, MG, CDP, QUINN, BMPX #### [facility] [place], [place] [id number] [employer] Operator: Juan Bauman MD Sodium [Moles/Vol] 146 mmol/L High 136-145 [facility] Comment on above: Performed By: #### I OCAL, MG, CDP, QUINN, BMPX #### [facility] [address] [place] [address] [id number] [employer] Operator: Juan Bauman MD Urea nitrogen [Mass/Vol] 37 mg/dL High 8-23 [facility] Comment on above: Performed By: #### I OCAL, MG, CDP, QUINN, BMPX #### [facility] [address] [place] [address] [id number] [employer] Operator: Juan Bauman MD Basic Metabolic Panel w/ Ref esa to on 07-25-2024 Anion gap [Moles/Vol] 9 mmol/L 9 - 16 mmol/L [facility] Calcium [Mass/Vol] 8.1 mg/dL Low 8.6 - 10. 4 mg/dL [facility] Chloride [Moles/Vol] 115 mmol/L High 98 - 10 7 mmol/L [facility] CO2 [Moles/Vol] 22 mmol/L 20 - 31 mmol/L [facility] Creatinine [Mass/Vol] 0.9 mg/dL 0.6 - 0.9 mg/dL [facility] Est, Glom Filt Rate 72 - PINF [facility] Glucose [Mass/Vol] 160 mg/dL High 74 - 99 mg/dL [facility] Interpretation and review of laboratory results Abnormal [facility] Potassium [Moles/Vol] 4 mmol/L 3.7 - 5.3 mmol/L [facility] Sodium [Moles/Vol] 146 mmol/L High 136 - 145 mmol/L [facility] Urea nitrogen [Mass/Vol] 37 mg/dL High 8 - 23 mg/dL [facility] CBC with Auto Differentialon 07-25-2024 Basophils (Bld) [#/Vol] 0 10*3/uL B on [facility] Basophils/100 WBC (Bld) 0 % 0 - 2 % B on [facility] Eosinophils (Bld) [#/Vol] 0 10*3/uL [facility] Eosinophils/100 WBC (Bld) 0 % Low 1 - 4 % [facility] Erythrocyte distribution width (RBC) [Ratio] 13.3 % 11.8 - 14.4 % [facility] Hematocrit (Bld) [Volume fraction] 22.8 % Low 36.3 - 47.1 % [facility] Hemoglobin (Bld) [Mass/Vol] 7.4 g/dL Low 11.9 - 15.1 g/dL [facility] Immature granulocytes (Bld) [#/Vol] 3.14 10*3/uL High [facility] Immature granulocytes/100 WBC (Bld) 8 % High 0 [facility] Interpretation and review of laboratory results Abnormal [facility] Lymphocytes/100 WBC (Bld) 9 % Low 24 - 44 % [facility] Lymphocytes/100 WBC (Bld) 3.53 % [facility] MCH (RBC) [Entitic mass] 29.7 pg 25.2 - 33.5 pg [facility] MCHC (RBC) [Mass/Vol] 32.5 g/dL 28.4 - 34.8 g/dL [facility] MCV (RBC) [Entitic vol] 91.6 fL 82.6 - 102.9 fL [facility] Monocytes/100 WBC (Bld) 2 % 1 - 7 % B on [facility] Monocytes/100 WBC (Bld) 0.78 % B on [facility] Morphology Germán (Bld) [Interp] Normal [facility] Neutrophils/100 WBC (Bld) 81 % High 36 - 66 % [facility] nRBC 2 High 0 per 100 WBC [facility] Nucleated RBC/100 WBC (Bld) [Ratio] 0.3 % High 0.0 per 100 WBC [facility] Platelet mean volume (Bld) [Entitic vol] 11.6 fL 8.1 - 13.5 fL [facility] [facility] Platelets (Bld) [#/Vol] 294 10*3/uL [facility] RBC (Bld) [#/Vol] 2.49 10*6/uL Low 3.95 - 5.1 1 m/uL [facility] Segmented neutrophils/100 WBC (Bld) 31.75 % High [facility] WBC other (Bld) [#/Vol] 39.2 Critically high [facility] CBC with Diffon 07-25-2024 Abs. Basophil 0.00 k/uL Normal 0.0-0.2 [facility] Comment on above: Performed By: #### I OCAL, MG, CDP, QUINN, BMPX #### [address] [address] [employer] Operator: Juan Bauman MD Abs.Imm.Granulocyte 3.14 k/uL High 0.00-0.30 [facility] Comment on above: Performed By: #### I OCAL, MG, CDP, QUINN, BMPX #### [facility] [email or web address] [address] [place] [address] [employer] Operator: Juan Bauman MD Abs.Neutrophil (Seg) 31.75 k/uL High 1.8-7.7 [facility] Comment on above: Performed By: #### I OCAL, MG, CDP, QUINN, BMPX #### [facility] [email or web address] [address] [place] [address] [employer] Operator: Juan Bauman MD Basophils/100 WBC (Bld) 0 % Normal 0-2 [facility] Comment on above: Performed By: #### I OCAL, MG, CDP, QUINN, BMPX #### [facility] [email or web address] [address] [place] [address] [employer] Operator: Juan Bauman MD Eosinophils (Bld) [#/Vol] 0.00 10*3/uL Normal 0.0-0.4 [facility] Comment on above: Performed By: #### I OCAL, MG, CDP, QUINN, BMPX #### [address] [address] [employer] Operator: Juan Bauman MD Eosinophils/100 WBC (Bld) 0 % Low 1-4 [facility] Comment on above: Performed By: #### I OCAL, MG, CDP, QUINN, BMPX #### [address] [address] [employer] Operator: Juan Bauman MD Immature granulocytes/100 WBC (Bld) 8 % High 0 [facility] Comment on above: Performed By: #### I OCAL, MG, CDP, QUINN, BMPX #### [address] [address] [employer] Operator: Juan Bauman MD Lymphocytes (Bld) [#/Vol] 3.53 10*3/uL Normal 1.0-4.8 [facility] Comment on above: Performed By: #### I OCAL, MG, CDP, QUINN, BMPX #### [address] [address] [employer] Operator: Juan Bauman MD Lymphocytes/100 WBC (Bld) 9 % Low 24-44 [facility] Comment on above: Performed By: #### I OCAL, MG, CDP, QUINN, BMPX #### [facility] [email or web address] [address] [place] [address] [employer] Operator: Juan Bauman MD Monocytes (Bld) [#/Vol] 0.78 10*3/uL Normal 0.1-0.8 [facility] Comment on above: Performed By: #### I OCAL, MG, CDP, QUINN, BMPX #### [facility] [email or web address] [address] [place] [address] [employer] Operator: Juan Bauman MD Monocytes/100 WBC (Bld) 2 % Normal 1-7 [facility] Comment on above: Performed By: #### I OCAL, MG, CDP, QUINN, BMPX #### [facility] [email or web address] [address] [place] [address] [employer] Operator: Juan Bauman MD Morphology Germán (Bld) [Interp] Normal Normal [facility] Comment on above: Performed By: #### I OCAL, MG, CDP, QUINN, BMPX #### [facility] [email or web address] [address] [place] [address] [employer] Operator: Juan Bauman MD Neutrophil (Seg) 81 % High 36-66 [facility] Comment on above: Performed By: #### I OCAL, MG, CDP, QUINN, BMPX #### [address] [address] [employer] Operator: Juan Bauman MD Nucleated RBC'S 2 per 100 WBC High 0 [facility] Comment on above: Performed By: #### I OCAL, MG, CDP, QUINN, BMPX #### [facility] [email or web address] [address] [place] [id number] [employer] Operator: Juan Bauman MD Erythrocyte distribution width (RBC) [Ratio] 13.3 % Normal 11.8-14.4 [facility] Comment on above: Performed By: #### I OCAL, MG, CDP, QUINN, BMPX #### [facility] [email or web address] [address] [place] [address] [employer] Operator: Juan Bauman MD Hematocrit (Bld) [Volume fraction] 22.8 % Low 36.3-47.1 [facility] Comment on above: Performed By: #### I OCAL, MG, CDP, QUINN, BMPX #### [facility] [email or web address] [address] [place] [address] [employer] Operator: Juan Bauman MD Hemoglobin (Bld) [Mass/Vol] 7.4 g/dL Low 11.9-15.1 [facility] Comment on above: Performed By: #### I OCAL, MG, CDP, QUINN, BMPX #### [facility] [email or web address] [address] [place] [address] [employer] Operator: Juan Bauman MD MCH (RBC) [Entitic mass] 29.7 pg Normal 25.2-33.5 [facility] Comment on above: Performed By: #### I OCAL, MG, CDP, QUINN, BMPX #### [facility] [email or web address] [address] [place] [address] [employer] Operator: Juan Bauman MD MCHC (RBC) [Mass/Vol] 32.5 g/dL Normal 28.4-34.8 [facility] Comment on above: Performed By: #### I OCAL, MG, CDP, QUINN, BMPX #### [address] [address] [employer] Operator: Juan Bauman MD MCV (RBC) [Entitic vol] 91.6 fL Normal 82.6-102.9 [facility] Comment on above: Performed By: #### I OCAL, MG, CDP, QUINN, BMPX #### [address] [address] [employer] Operator: Juan Bauman MD NRBC Automated 0.3 per 100 WBC High 0.0 [facility] Comment on above: Performed By: #### I OCAL, MG, CDP, QUINN, BMPX #### [address] [address] [employer] Operator: Juan Bauman MD Platelet mean volume (Bld) [Entitic vol] 11.6 fL Normal 8.1-13.5 [facility] Comment on above: Performed By: #### I OCAL, MG, CDP, QUINN, BMPX #### [facility] [email or web address] [address] [place] [id number] [employer] Operator: Juan Bauman MD Platelets (Bld) [#/Vol] 294 10*3/uL Normal 138-453 [facility] Comment on above: Performed By: #### I OCAL, MG, CDP, QUINN, BMPX #### [employer] [address] [place], [place] [id number] [employer] Operator: Juan Bauman MD RBC (Bld) [#/Vol] 2.49 10*6/uL Low 3.95-5.11 [facility] Comment on above: Performed By: #### I OCAL, MG, CDP, QUINN, BMPX #### [facility] [place], [place] [id number] [employer] Operator: Juan Bauman MD WBC (Bld) [#/Vol] 39.2 10*3/uL Critically high 3.5-11.3 [facility] Comment on above: Result Comment: Prev ious Alert Value Reported Performed By: #### I OCAL, MG, CDP, QUINN, BMPX #### [facility] [place] [address] [employer] Operator: Juan Bauman MD CT CHEST ABDOMEN PELVIS W CO NTRASTon 07-25-2024 CT CHEST ABDOMEN PELVIS W CONTRAST EXAMINATION: CT OF THE CHEST, ABDOMEN, AND [...] catheter in place with decompressed urinary bladder. Peritoneum/Retroperit oneum: No evidence of ascites or free air. [...] size since 09/09/2022. Correlate with mammographic imaging. Interpreted by: Elizabeth Chaney MD Signed by: Elizabeth Chaney MD 07/25/24 Final result Normal [facility] CT Chest and Abdomen and Pel vis W contrast Amari 07-25-2024 [facility] RIS CONSOLIDATED [facility] RIS CONSOLIDATED [facility] Radiology Study observation (narrative) Rylie [facility] Calcium, Ionicon 07-25-2024 Calcium [Moles/Vol] 1.11 mmol/L Low 1.13-1.33 [facility] Comment on above: Performed By: #### I OCAL, MG, CDP, QUINN, BMPX #### [facility] [address] [place] [address] [employer] Operator: Juan Bauman MD Calcium, Ionizedon Calcium.ionized (Bld) [Moles/Vol] 1.11 mmol/L Low 1.13 - 1.33 mmol/L [facility] Interpretation and review of laboratory results Abnormal [facility] Glucose (POC)on 07-25-2024 Glucose [Mass/Vol] 178 mg/dL High 74-100 [facility] Glucose,Whole Bloodon 2024 Glucose [Mass/Vol] 152 mg/dL High 65-105 [facility] Glucose [Mass/Vol] 163 mg/dL High 65-105 [facility] Glucose [Mass/Vol] 183 mg/dL High 65-105 [facility] Glucose [Mass/Vol] 165 mg/dL High 65-105 [facility] Glucose [Mass/Vol] 173 mg/dL High 65-105 [facility] Glucose [Mass/Vol] 171 mg/dL High 65-105 [facility] Glucose [Mass/Vol] 154 mg/dL High 65-105 [facility] Glucose [Mass/Vol] 152 mg/dL High 65-105 [facility] Glucose [Mass/Vol] 160 mg/dL High 65-105 [facility] Glucose [Mass/Vol] 155 mg/dL High 65-105 [facility] Glucose [Mass/Vol] 162 mg/dL High 65-105 [facility] Glucose [Mass/Vol] 175 mg/dL High 65-105 [facility] Glucose [Mass/Vol] 190 mg/dL High 65-105 [facility] Glucose [Mass/Vol] 172 mg/dL High 65-105 [facility] Glucose [Mass/Vol] 163 mg/dL High 65-105 [facility] Glucose [Mass/Vol] 138 mg/dL High 65-105 [facility] Glucose [Mass/Vol] 155 mg/dL High 65-105 [facility] Glucose [Mass/Vol] 167 mg/dL High 65-105 [facility] Glucose [Mass/Vol] 154 mg/dL High 65-105 [facility] Glucose [Mass/Vol] 146 mg/dL High 65-105 [facility] Glucose [Mass/Vol] 147 mg/dL High 65-105 [facility] Glucose [Mass/Vol] 166 mg/dL High 65-105 [facility] Glucose [Mass/Vol] 174 mg/dL High 65-105 [facility] Glucose [Mass/Vol] 164 mg/dL High 65-105 [facility] Glucose [Mass/Vol] 150 mg/dL High 65-105 [facility] Lactic Acid (POC)on 07-26-19 25 Lactate [Moles/Vol] 1.0 mmol/L Normal 0.56-1.39 [facility] Lactic Acid, POCon 5 POC Lactic Acid 1 mmol/L 0.56 - 1.39 mmol/L [facility] Magnesiumon 07-25-2024 Magnesium [Mass/Vol] 1.9 mg/dL 1.6 - 2 .4 mg/dL [facility] Magnesium [Mass/Vol] 1.9 mg/dL Normal 1.6-2.4 [facility] Comment on above: Performed By: #### I OCAL, MG, CDP, QUINN, BMPX #### [facility] [email or web address] [address] [place] [id number] [employer] Operator: Juan Bauman MD No Panel Informationon 07-25 [facility] Interpretation and review of laboratory results Abnormal [facility] POC Glucose Fingerstickon Glucose [Mass/Vol] 152 mg/dL High 65 - 105 mg/dL [facility] Interpretation and review of laboratory results Abnormal [facility] Glucose [Mass/Vol] 163 mg/dL High 65 - 105 mg/dL [facility] Interpretation and review of laboratory results Abnormal [facility] Glucose [Mass/Vol] 183 mg/dL High 65 - 105 mg/dL [facility] Interpretation and review of laboratory results Abnormal [facility] Glucose [Mass/Vol] 165 mg/dL High 65 - 105 mg/dL [facility] Interpretation and review of laboratory results Abnormal [facility] Glucose [Mass/Vol] 173 mg/dL High 65 - 105 mg/dL [facility] Interpretation and review of laboratory results Abnormal [facility] Glucose [Mass/Vol] 171 mg/dL High 65 - 105 mg/dL [facility] Interpretation and review of laboratory results Abnormal [facility] Glucose [Mass/Vol] 154 mg/dL High 65 - 105 mg/dL [facility] Interpretation and review of laboratory results Abnormal [facility] Glucose [Mass/Vol] 152 mg/dL High 65 - 105 mg/dL [facility] [place] Interpretation and review of laboratory results Abnormal [facility] Glucose [Mass/Vol] 160 mg/dL High 65 - 105 mg/dL [facility] Interpretation and review of laboratory results Abnormal [facility] Glucose [Mass/Vol] 155 mg/dL High 65 - 105 mg/dL [facility] [place] Interpretation and review of laboratory results Abnormal [facility] Glucose [Mass/Vol] 162 mg/dL High 65 - 105 mg/dL [facility] Interpretation and review of laboratory results Abnormal [facility] Glucose [Mass/Vol] 175 mg/dL High 65 - 105 mg/dL [facility] [place] Interpretation and review of laboratory results Abnormal [facility] Glucose [Mass/Vol] 190 mg/dL High 65 - 105 mg/dL [facility] [place] Interpretation and review of laboratory results Abnormal [facility] Glucose [Mass/Vol] 172 mg/dL High 65 - 105 mg/dL [facility] [place] [facility] Interpretation and review of laboratory results Abnormal [facility] Glucose [Mass/Vol] 163 mg/dL High 65 - 105 mg/dL [facility] [place] Interpretation and review of laboratory results Abnormal [facility] Glucose [Mass/Vol] 138 mg/dL High 65 - 105 mg/dL [facility] Interpretation and review of laboratory results Abnormal [facility] Glucose [Mass/Vol] 155 mg/dL High 65 - 105 mg/dL [facility] Interpretation and review of laboratory results Abnormal [facility] Glucose [Mass/Vol] 167 mg/dL High 65 - 105 mg/dL [facility] [place] Interpretation and review of laboratory results Abnormal [facility] Glucose [Mass/Vol] 154 mg/dL High 65 - 105 mg/dL [facility] Interpretation and review of laboratory results Abnormal [facility] Glucose [Mass/Vol] 146 mg/dL High 65 - 105 mg/dL [facility] [place] [facility] Interpretation and review of laboratory results Abnormal [facility] Glucose [Mass/Vol] 147 mg/dL High 65 - 105 mg/dL [facility] [place] Interpretation and review of laboratory results Abnormal [facility] Glucose [Mass/Vol] 166 mg/dL High 65 - 105 mg/dL [facility] [place] Interpretation and review of laboratory results Abnormal [facility] Glucose [Mass/Vol] 174 mg/dL High 65 - 105 mg/dL [facility] Interpretation and review of laboratory results Abnormal [facility] Glucose [Mass/Vol] 164 mg/dL High 65 - 105 mg/dL [facility] Interpretation and review of laboratory results Abnormal [facility] Glucose [Mass/Vol] 150 mg/dL High 65 - 105 mg/dL [facility] Interpretation and review of laboratory results Abnormal [facility] POCT Glucoseon 07-25-2024 Glucose [Mass/Vol] 178 mg/dL High 74 - 100 mg/dL [facility] Phosphoruson 07-25-2024 Phosphate [Mass/Vol] 2.5 mg/dL 2.5 - 4 .5 mg/dL [facility] Phosphorus, Inorg.on Phosphorus, Inorg. 2.5 mg/dL Normal 2.5-4.5 [facility] Comment on above: Performed By: #### I OCAL, MG, CDP, QUINN, BMPX #### [facility] [address] [place] [address] [employer] Operator: Juan Bauman MD Portable XR Chest AP single viewon 07-25-2024 [facility] RIS CONSOLIDATED [facility] RIS [facility] RIS CONSOLIDATED [facility] RIS [facility] Radiology Study observation (narrative) [facility] RIS CONSOLIDATED PN RIS [facility] Portable XR Chest AP single viewOrdered By: Barbara Coffey on 07-25-2024 [facility] Work Phone: Portable XR Chest AP single viewOrdered By: Stu Mixon on 07-25-2024 [facility] Work Phone: XR CHEST PORTABLEon 07-26-19 XR CHEST PORTABLE EXAMINATION: ONE XRAY VIEW OF THE CHEST 07/19/2024 7:28 pm COMPARISON: None. HISTORY: ORDERING SYSTEM PROVIDED HISTORY: Preop TECHNOLOGIST PROVIDED HISTORY: Preop Initial evaluation FINDINGS: The trachea is midline. There is cardiomegaly. There is mild prominence of the interstitial markings which could represent mild vascular congestion. There is a questionable rounded density in the right lung base which is concerning for infiltrate or possible lesion. Short-term follow-up is suggested. CT chest could better evaluate lung parenchyma if indicated. No obvious pleural fluid. There is a metallic appearing density overlying the right side of heart which is of uncertain location within the patient or outside the patient on one view. IMPRESSION: 1. Cardiomegaly with mild prominence of the interstitial markings which could represent mild vascular congestion. 2. Questionable rounded density in the right lung base which could represent infiltrate or possible lesion. Short-term follow-up or CT chest is suggested. Interpreted by: Barbara Coffey MD Signed by: Barbara Coffey MD 07/25/24 Final result Normal [facility] XR CHEST PORTABLE EXAMINATION: ONE XRAY VIEW OF THE CHEST 07/25/2024 5:34 am COMPARISON: Chest radiograph 07/24/2024 HISTORY: ORDERING SYSTEM PROVIDED HISTORY: intubated TECHNOLOGIST PROVIDED HISTORY: intubated FINDINGS: Endotracheal tube with tip projecting 5-6cm above the khushbu. Enteric tube projects past the GE junction with tip projecting beyond field of view. Right internal jugular central venous catheter with tip projecting over the lower SVC. Similar mild pulmonary vascular congestion with small pleural effusion. No new focal consolidation. No pneumothorax. Unchanged cardiomediastinal silhouette. No acute osseous abnormality. IMPRESSION: 1. Stable lines and tubes. 2. Similar mild pulmonary vascular congestion with small pleural effusion. Interpreted by: Elizabeth Chaney MD Signed by: Elizabeth Chaney MD 07/25/24 CC Recipients: Kelly Eastman MD - In Basket (authorizing provider) Final result Normal [facility] XR CHEST PORTABLE EXAMINATION: ONE XRAY VIEW OF THE CHEST 07/24/2024 7:51 pm COMPARISON: Portable chest radiograph performed earlier same day. HISTORY: ORDERING SYSTEM PROVIDED HISTORY: CVC placement TECHNOLOGIST PROVIDED HISTORY: CVC placement Reason for Exam: port. supine FINDINGS: Support Devices: Enteric tube appropriate positioned over the mid trachea 5.7 cm above the khushbu. Interval right internal jugular central venous catheter placement with tip over the lower SVC. Left internal jugular central venous catheter tip terminating over the lower SVC. Enteric tube tip extends inferiorly outside the field of view. Unchanged lung findings with bilateral patchy airspace opacities and interstitial thickening. Blunting of the left costophrenic angle. No pneumothorax. Cardiomediastinal silhouette is unchanged. No acute osseous abnormality. IMPRESSION: 1. The tubes and lines appear appropriately positioned. 2. Unchanged lung findings with mixed airspace opacities interstitial thickening. Differential includes pulmonary edema and atelectatic changes, with infection not excluded. 3. Small left pleural effusion, unchanged. No pneumothorax. Interpreted by: Stu Mixon MD Signed by: Stu Mixon MD 07/25/24 Final result Normal [facility] Arterial Bld Gas,POCon 07-24 Anthony Test Positive Normal [facility] FIO2 40.0 Normal [facility] HCO3 (Bld) [Moles/Vol] 20.9 mmol/L Low 21.0-28.0 M [facility] Mode of Delivery PRVC Normal [facility] Negative Base Excess (calc) 3.8 mmol/L High 0.0-2.0 [facility] O2 Device Adult Ventilator Normal [facility] Oxygen saturation in Blood 98.2 % High 94.0-98.0 [facility] pCO2, Arterial 34.8 mm Hg Low 35.0-48.0 [facility] pH, Arterial 7.386 Normal 7.350-7.450 [facility] pO2, Arterial 107.4 mm Hg Normal 83.0-108.0 [facility] Site Drawn Right Radial Artery Normal [facility] Arterial Blood Gas, POCon Anthony Test Positive [facility] FIO2 40 [facility] [employer] HCO3 (Bld) [Moles/Vol] 20.9 mmol/L Low 21.0 - 28.0 mmol/L [facility] [employer] Mode PRVC [facility] [employer] Negative Base Excess, Art 3.8 mmol/L High 0.0 - 2.0 mmol/L [facility] [employer] O2 Delivery Device Adult Ventilator [facility] [employer] Oxygen saturation in Blood 98.2 % High 94.0 - 98.0 % [facility] [employer] POC pCO2 34.8 Low [facility] POC pH 7.386 7.350 - 7.450 [facility] POC PO2 107.4 [facility] Sample Site Right Radial Artery [facility] Basic Metab w/rfx MGon 07-24 Anion gap [Moles/Vol] 13 mmol/L Normal 9-16 [facility] Comment on above: Performed By: #### I OCAL, MG, CDP, QUINN, BMPX #### [employer] [address] [place] [id number] [employer] Operator: Juan Bauman MD Calcium [Mass/Vol] 8.1 mg/dL Low 8.6-10.4 [facility] Comment on above: Performed By: #### I OCAL, MG, CDP, QUINN, BMPX #### [facility] [address] [place] [id number] [employer] Operator: Juan Bauman MD Chloride [Moles/Vol] 108 mmol/L High 98-107 [facility] Comment on above: Performed By: #### I OCAL, MG, CDP, QUINN, BMPX #### [employer] [address] [place] [id number] [employer] Operator: Juan Bauman MD CO2 [Moles/Vol] 20 mmol/L Normal 20-31 [facility] Comment on above: Performed By: #### I OCAL, MG, CDP, QUINN, BMPX #### [employer] [address] [place] [id number] [employer] Operator: Juan Bauman MD Creatinine [Mass/Vol] 1.1 mg/dL High 0.6-0.9 [facility] Comment on above: Performed By: #### I OCAL, MG, CDP, QUINN, BMPX #### [employer] [address] [place] [address] [id number] [employer] Operator: Juan Bauman MD GFR/1.73 sq M.predicted among non-blacks MDRD (S/P/Bld) [Vol rate/Area] 57 mL/min/{1.73_m2} Low >60 [facility] Comment on above: Result Comment: These results are not intended for [...] following therapy that affects renal tubular secretion. Performed By: #### I OCAL, MG, CDP, QUINN, BMPX #### [facility] [email or web address] [address] [place] [id number] [employer] Operator: Juan Bauman MD Glucose [Mass/Vol] 289 mg/dL High 74-99 [facility] Comment on above: Performed By: #### I OCAL, MG, CDP, QUINN, BMPX #### [facility] [email or web address] [address] [place] [id number] [employer] Operator: Juan Bauman MD Potassium [Moles/Vol] 3.5 mmol/L Low 3.7-5.3 [facility] Comment on above: Performed By: #### I OCAL, MG, CDP, QUINN, BMPX #### [facility] [email or web address] [address] [place] [address] [employer] Operator: Juan Bauman MD Sodium [Moles/Vol] 141 mmol/L Normal 136-145 [facility] Comment on above: Performed By: #### I OCAL, MG, CDP, QUINN, BMPX #### [facility] [email or web address] [address] [place] [address] [employer] Operator: Juan Bauman MD Urea nitrogen [Mass/Vol] 39 mg/dL High 8-23 [facility] Comment on above: Performed By: #### I OCAL, MG, CDP, QUINN, BMPX #### [facility] [address] [place] [address] [employer] Operator: Juan Bauman MD Basic Metabolic Panelon 07-14 Anion gap [Moles/Vol] 11 mmol/L 9 - 16 mmol/L [facility] Calcium [Mass/Vol] 8.2 mg/dL Low 8.6 - 10. 4 mg/dL [facility] Chloride [Moles/Vol] 113 mmol/L High 98 - 10 7 mmol/L [facility] CO2 [Moles/Vol] 18 mmol/L Low 20 - 31 mmol/L [facility] Creatinine [Mass/Vol] 0.9 mg/dL 0.6 - 0.9 mg/dL [facility], Glom Filt Rate 72 - PINF [facility] Glucose [Mass/Vol] 138 mg/dL High 74 - 99 mg/dL [facility] Interpretation and review of laboratory results Abnormal [facility] Potassium [Moles/Vol] 4.1 mmol/L 3.7 - 5.3 mmol/L [facility] Sodium [Moles/Vol] 142 mmol/L 136 - 145 mmol/L [facility] Urea nitrogen [Mass/Vol] 37 mg/dL High 8 - 23 mg/dL [facility] [employer] Basic Metabolic Panel w/ Ref esa to MGon 07-24-2024 Anion gap [Moles/Vol] 13 mmol/L 9 - 16 mmol/L [facility] Calcium [Mass/Vol] 8.1 mg/dL Low 8.6 - 10. 4 mg/dL [facility] Chloride [Moles/Vol] 108 mmol/L High 98 - 10 7 mmol/L [facility] CO2 [Moles/Vol] 20 mmol/L 20 - 31 mmol/L [facility] Creatinine [Mass/Vol] 1.1 mg/dL High 0.6 - 0.9 mg/dL [facility] [employer] Est, Glom Filt Rate 57 Low - PINF [facility] Glucose [Mass/Vol] 289 mg/dL High 74 - 99 mg/dL [facility] Potassium [Moles/Vol] 3.5 mmol/L Low 3.7 - 5.3 mmol/L [facility] Sodium [Moles/Vol] 141 mmol/L 136 - 145 mmol/L [facility] Urea nitrogen [Mass/Vol] 39 mg/dL High 8 - 23 mg/dL [facility] Basic Metabolic Profon 07-24 Anion gap [Moles/Vol] 11 mmol/L Normal 9-16 [facility] Comment on above: Performed By: #### C DP, PRCAL, LACTIC, BMP, CRP, SED #### [facility] [email or web address] [address] [place] [phone] [employer] Operator: Juan Bauman MD Calcium [Mass/Vol] 8.2 mg/dL Low 8.6-10.4 [facility] Comment on above: Performed By: #### C DP, PRCAL, LACTIC, BMP, CRP, SED #### [facility] [email or web address] [address] [place] [phone] [employer] Operator: Juan Bauman MD Chloride [Moles/Vol] 113 mmol/L High 98-107 [facility] Comment on above: Performed By: #### C DP, PRCAL, LACTIC, BMP, CRP, SED #### [facility] [address] [place] [address] [employer] Operator: Juan Bauman MD CO2 [Moles/Vol] 18 mmol/L Low 20-31 [facility] Comment on above: Performed By: #### C DP, PRCAL, LACTIC, BMP, CRP, SED #### [facility] [address] [place] [address] [employer] Operator: Juan Bauman MD Creatinine [Mass/Vol] 0.9 mg/dL Normal 0.6-0.9 [facility] Comment on above: Performed By: #### C DP, PRCAL, LACTIC, BMP, CRP, SED #### [facility] [email or web address] [address] [place] [address] [phone] [employer] Operator: Juan Bauman MD GFR/1.73 sq M.predicted among non-blacks MDRD (S/P/Bld) [Vol rate/Area] 72 mL/min/{1.73_m2} Normal >60 [facility] Comment on above: Result Comment: These results are not intended for [...] following therapy that affects renal tubular secretion. Performed By: #### C DP, PRCAL, LACTIC, BMP, CRP, SED #### [address] [address] [employer] Operator: Juan Bauman MD Glucose [Mass/Vol] 138 mg/dL High 74-99 [facility] Comment on above: Performed By: #### C DP, PRCAL, LACTIC, BMP, CRP, SED #### [place] [address] [employer] Operator: Juan Bauman MD Potassium [Moles/Vol] 4.1 mmol/L Normal 3.7-5.3 [facility] Comment on above: Performed By: #### C DP, PRCAL, LACTIC, BMP, CRP, SED #### [facility] [email or web address] [address] [place] [address] [employer] Operator: Juan Bauman MD Sodium [Moles/Vol] 142 mmol/L Normal 136-145 [facility] Comment on above: Performed By: #### C DP, PRCAL, LACTIC, BMP, CRP, SED #### [facility] [email or web address] [address] [place] [phone] [employer] Operator: Juan Bauman MD Urea nitrogen [Mass/Vol] 37 mg/dL High 8-23 [facility] Comment on above: Performed By: #### C DP, PRCAL, LACTIC, BMP, CRP, SED #### [facility] [place] [address] [employer] Operator: Juan Bauman MD CBC with Auto Differentialon 07-24-2024 Basophils (Bld) [#/Vol] 0 10*3/uL [facility] Basophils/100 WBC (Bld) 0 % 0 - 2 % [facility] Eosinophils (Bld) [#/Vol] 0.41 10*3/uL High [facility] Eosinophils/100 WBC (Bld) 1 % 1 - 4 % [facility] Erythrocyte distribution width (RBC) [Ratio] 13.6 % 11.8 - 14.4 % [facility] Hematocrit (Bld) [Volume fraction] 26.7 % Low 36.3 - 47.1 % [facility] Hemoglobin (Bld) [Mass/Vol] 8.2 g/dL Low 11.9 - 15.1 g/dL [facility] Immature granulocytes (Bld) [#/Vol] 2.48 10*3/uL High [facility] Immature granulocytes/100 WBC (Bld) 6 % High 0 [facility] Interpretation and review of laboratory results Abnormal [facility] Lymphocytes/100 WBC (Bld) 10 % Low 24 - 44 % [facility] Lymphocytes/100 WBC (Bld) 4.13 % [facility] MCH (RBC) [Entitic mass] 29.7 pg 25.2 - 33.5 pg [facility] MCHC (RBC) [Mass/Vol] 30.7 g/dL 28.4 - 34.8 g/dL [facility] MCV (RBC) [Entitic vol] 96.7 fL 82.6 - 102.9 fL [facility] Monocytes/100 WBC (Bld) 2 % 1 - 7 % [facility] Monocytes/100 WBC (Bld) 0.83 % High [facility] Morphology Germán (Bld) [Interp] Normal [facility] Neutrophils/100 WBC (Bld) 81 % High 36 - 66 % [facility] nRBC 1 High 0 per 100 WBC [facility] Nucleated RBC/100 WBC (Bld) [Ratio] 0.4 % High 0.0 per 100 WBC [facility] Platelet mean volume (Bld) [Entitic vol] 11.4 fL 8.1 - 13.5 fL [facility] Platelets (Bld) [#/Vol] 289 10*3/uL [facility] RBC (Bld) [#/Vol] 2.76 10*6/uL Low 3.95 - 5.1 1 m/uL [facility] Segmented neutrophils/100 WBC (Bld) 33.45 % High [facility] WBC other (Bld) [#/Vol] 41.3 Critically high [facility] Basophils (Bld) [#/Vol] 0 10*3/uL B on [facility] Basophils/100 WBC (Bld) 0 % 0 - 2 % [facility] Eosinophils (Bld) [#/Vol] 0 10*3/uL [facility] Eosinophils/100 WBC (Bld) 0 % Low 1 - 4 % [facility] Erythrocyte distribution width (RBC) [Ratio] 13.7 % 11.8 - 14.4 % [facility] Hematocrit (Bld) [Volume fraction] 23.8 % Low 36.3 - 47.1 % [facility] Hemoglobin (Bld) [Mass/Vol] 7.6 g/dL Low 11.9 - 15.1 g/dL [facility] Immature granulocytes (Bld) [#/Vol] 1.85 10*3/uL High [facility] Immature granulocytes/100 WBC (Bld) 7 % High 0 [facility] Interpretation and review of laboratory results Abnormal [facility] Lymphocytes/100 WBC (Bld) 10 % Low 24 - 44 % [facility] Lymphocytes/100 WBC (Bld) 2.64 % [facility] MCH (RBC) [Entitic mass] 28.8 pg 25.2 - 33.5 pg [facility] MCHC (RBC) [Mass/Vol] 31.9 g/dL 28.4 - 34.8 g/dL [facility] MCV (RBC) [Entitic vol] 90.2 fL 82.6 - 102.9 fL [facility] [employer] Monocytes/100 WBC (Bld) 3 % 1 - 7 % B on [facility] [employer] Monocytes/100 WBC (Bld) 0.79 % B on [facility] [employer] Morphology Germán (Bld) [Interp] Normal [facility] Neutrophils/100 WBC (Bld) 80 % High 36 - 66 % [facility] [employer] Nucleated RBC/100 WBC (Bld) [Ratio] 0.2 % High 0.0 per 100 WBC [facility] [employer] Platelet mean volume (Bld) [Entitic vol] 11.9 fL 8.1 - 13.5 fL [facility] [employer] Platelets (Bld) [#/Vol] 219 10*3/uL [facility] RBC (Bld) [#/Vol] 2.64 10*6/uL Low 3.95 - 5.1 1 m/uL [facility] [employer] Segmented neutrophils/100 WBC (Bld) 21.12 % High [facility] [employer] WBC other (Bld) [#/Vol] 26.4 High [facility] on [facility] CBC with Diffon 07-24-2024 Abs. Basophil 0.00 k/uL Normal 0.0-0.2 [facility] Comment on above: Performed By: #### C DP, PRCAL, LACTIC, BMP, CRP, SED #### [employer] [address] [place], [place] [id number] [employer] Operator: Juan Bauman MD Abs.Imm.Granulocyte 2.48 k/uL High 0.00-0.30 [facility] Comment on above: Performed By: #### C DP, PRCAL, LACTIC, BMP, CRP, SED #### [employer] [address] [place], [place] [phone] [employer] Operator: Juan Bauman MD Abs.Neutrophil (Seg) 33.45 k/uL High 1.8-7.7 [facility] Comment on above: Performed By: #### C DP, PRCAL, LACTIC, BMP, CRP, SED #### [address] [address] [employer] Operator: Juan Bauman MD Basophils/100 WBC (Bld) 0 % Normal 0-2 [facility] Comment on above: Performed By: #### C DP, PRCAL, LACTIC, BMP, CRP, SED #### [address] [address] [employer] Operator: Juan Bauman MD Eosinophils (Bld) [#/Vol] 0.41 10*3/uL High 0.0-0.4 [facility] Comment on above: Performed By: #### C DP, PRCAL, LACTIC, BMP, CRP, SED #### [address] [address] [employer] Operator: Juan Bauman MD Eosinophils/100 WBC (Bld) 1 % Normal 1-4 [facility] Comment on above: Performed By: #### C DP, PRCAL, LACTIC, BMP, CRP, SED #### [address] [address] [employer] Operator: Juan Bauman MD Immature granulocytes/100 WBC (Bld) 6 % High 0 [facility] Comment on above: Performed By: #### C DP, PRCAL, LACTIC, BMP, CRP, SED #### [address] [address] [employer] Operator: Juan Bauman MD Lymphocytes (Bld) [#/Vol] 4.13 10*3/uL Normal 1.0-4.8 [facility] Comment on above: Performed By: #### C DP, PRCAL, LACTIC, BMP, CRP, SED #### [address] [address] [employer] Operator: Juan Bauman MD Lymphocytes/100 WBC (Bld) 10 % Low 24-44 [facility] Comment on above: Performed By: #### C DP, PRCAL, LACTIC, BMP, CRP, SED #### [address] [address] [employer] Operator: Juan Bauman MD Monocytes (Bld) [#/Vol] 0.83 10*3/uL High 0.1-0.8 [facility] Comment on above: Performed By: #### C DP, PRCAL, LACTIC, BMP, CRP, SED #### [address] [address] [employer] Operator: Juan Bauman MD Monocytes/100 WBC (Bld) 2 % Normal 1-7 [facility] Comment on above: Performed By: #### C DP, PRCAL, LACTIC, BMP, CRP, SED #### [address] [address] [employer] Operator: Juan Bauman MD Morphology Germán (Bld) [Interp] Normal Normal [facility] Comment on above: Performed By: #### C DP, PRCAL, LACTIC, BMP, CRP, SED #### [address] [address] [employer] Operator: Juan Bauman MD Neutrophil (Seg) 81 % High 36-66 [facility] Comment on above: Performed By: #### C DP, PRCAL, LACTIC, BMP, CRP, SED #### [address] [address] [employer] Operator: Juan Bauman MD Nucleated RBC'S 1 per 100 WBC High 0 [facility] Comment on above: Performed By: #### C DP, PRCAL, LACTIC, BMP, CRP, SED #### [address] [address] [employer] Operator: Juan Bauman MD NRBC Automated 0.4 per 100 WBC High 0.0 [facility] Comment on above: Performed By: #### C DP, PRCAL, LACTIC, BMP, CRP, SED #### [address] [address] [employer] Operator: Juan Bauman MD Platelet mean volume (Bld) [Entitic vol] 11.4 fL Normal 8.1-13.5 [facility] Comment on above: Performed By: #### C DP, PRCAL, LACTIC, BMP, CRP, SED #### [address] [address] [employer] Operator: Juan Bauman MD Platelets (Bld) [#/Vol] 289 10*3/uL Normal 138-453 [facility] Comment on above: Performed By: #### C DP, PRCAL, LACTIC, BMP, CRP, SED #### [address] [address] [employer] Operator: Juan Bauman MD WBC (Bld) [#/Vol] 41.3 10*3/uL Critically high 3.5-11.3 [facility] Comment on above: Performed By: #### C DP, PRCAL, LACTIC, BMP, CRP, SED #### [address] [address] [employer] Operator: Juan Bauman MD Erythrocyte distribution width (RBC) [Ratio] 13.6 % Normal 11.8-14.4 [facility] Comment on above: Performed By: #### C DP, PRCAL, LACTIC, BMP, CRP, SED #### [address] [address] [employer] Operator: Juan Bauman MD Hematocrit (Bld) [Volume fraction] 26.7 % Low 36.3-47.1 [facility] Comment on above: Performed By: #### C DP, PRCAL, LACTIC, BMP, CRP, SED #### [address] [address] [employer] Operator: Juan Bauman MD Hemoglobin (Bld) [Mass/Vol] 8.2 g/dL Low 11.9-15.1 [facility] Comment on above: Performed By: #### C DP, PRCAL, LACTIC, BMP, CRP, SED #### [address] [address] [employer] Operator: Juan Bauman MD MCH (RBC) [Entitic mass] 29.7 pg Normal 25.2-33.5 [facility] Comment on above: Performed By: #### C DP, PRCAL, LACTIC, BMP, CRP, SED #### [address] [address] [employer] Operator: Juan Bauman MD MCHC (RBC) [Mass/Vol] 30.7 g/dL Normal 28.4-34.8 [facility] Comment on above: Performed By: #### C DP, PRCAL, LACTIC, BMP, CRP, SED #### [address] [address] [employer] Operator: Juan Bauman MD MCV (RBC) [Entitic vol] 96.7 fL Normal 82.6-102.9 [facility] Comment on above: Performed By: #### C DP, PRCAL, LACTIC, BMP, CRP, SED #### [address] [address] [employer] Operator: Juan Bauman MD RBC (Bld) [#/Vol] 2.76 10*6/uL Low 3.95-5.11 [facility] Comment on above: Performed By: #### C DP, PRCAL, LACTIC, BMP, CRP, SED #### [address] [address] [employer] Operator: Juan Bauman MD Abs. Basophil 0.00 k/uL Normal 0.0-0.2 [facility] Comment on above: Performed By: #### I OCAL, MG, CDP, QUINN, BMPX #### [address] [address] [employer] Operator: Juan Bauman MD Abs.Imm.Granulocyte 1.85 k/uL High 0.00-0.30 [facility] Comment on above: Performed By: #### I OCAL, MG, CDP, QUINN, BMPX #### [place] [address] [employer] Operator: Juan Bauman MD Abs.Neutrophil (Seg) 21.12 k/uL High 1.8-7.7 [facility] Comment on above: Performed By: #### I OCAL, MG, CDP, QUINN, BMPX #### [place] [address] [employer] Operator: Juan Bauman MD Basophils/100 WBC (Bld) 0 % Normal 0-2 [facility] Comment on above: Performed By: #### I OCAL, MG, CDP, QUINN, BMPX #### [place] [address] [employer] Operator: Juan Bauman MD Eosinophils (Bld) [#/Vol] 0.00 10*3/uL Normal 0.0-0.4 [facility] Comment on above: Performed By: #### I OCAL, MG, CDP, QUINN, BMPX #### [place] [address] [employer] Operator: Juan Bauman MD Eosinophils/100 WBC (Bld) 0 % Low 1-4 [facility] Comment on above: Performed By: #### I OCAL, MG, CDP, QUINN, BMPX #### [place] [address] [employer] Operator: Juan Bauman MD Immature granulocytes/100 WBC (Bld) 7 % High 0 [facility] Comment on above: Performed By: #### I OCAL, MG, CDP, QUINN, BMPX #### [address] [address] [employer] Operator: Juan Bauman MD Lymphocytes (Bld) [#/Vol] 2.64 10*3/uL Normal 1.0-4.8 [facility] Comment on above: Performed By: #### I OCAL, MG, CDP, QUINN, BMPX #### [address] [address] [employer] Operator: Juan Bauman MD Lymphocytes/100 WBC (Bld) 10 % Low 24-44 [facility] Comment on above: Performed By: #### I OCAL, MG, CDP, QUINN, BMPX #### [address] [address] [employer] Operator: Juan Bauman MD Monocytes (Bld) [#/Vol] 0.79 10*3/uL Normal 0.1-0.8 [facility] Comment on above: Performed By: #### I OCAL, MG, CDP, QUINN, BMPX #### [address] [address] [employer] Operator: Juan Buaman MD Monocytes/100 WBC (Bld) 3 % Normal 1-7 [facility] Comment on above: Performed By: #### I OCAL, MG, CDP, QUINN, BMPX #### [address] [address] [employer] Operator: Juan Bauman MD Morphology Germán (Bld) [Interp] Normal Normal [facility] Comment on above: Performed By: #### I OCAL, MG, CDP, QUINN, BMPX #### [address] [address] [employer] Operator: Juan Bauman MD Neutrophil (Seg) 80 % High 36-66 [facility] Comment on above: Performed By: #### I OCAL, MG, CDP, QUINN, BMPX #### [facility] [email or web address] [address] [place] [address] [employer] Operator: Juan Bauman MD Erythrocyte distribution width (RBC) [Ratio] 13.7 % Normal 11.8-14.4 [facility] Comment on above: Performed By: #### I OCAL, MG, CDP, QUINN, BMPX #### [facility] [email or web address] [address] [place] [address] [employer] Operator: Juan Bauman MD Hematocrit (Bld) [Volume fraction] 23.8 % Low 36.3-47.1 [facility] Comment on above: Performed By: #### I OCAL, MG, CDP, QUINN, BMPX #### [facility] [email or web address] [address] [place] [address] [employer] Operator: Juan Bauman MD Hemoglobin (Bld) [Mass/Vol] 7.6 g/dL Low 11.9-15.1 [facility] Comment on above: Performed By: #### I OCAL, MG, CDP, QUINN, BMPX #### [facility] [email or web address] [address] [place] [address] [employer] Operator: Juan Bauman MD MCH (RBC) [Entitic mass] 28.8 pg Normal 25.2-33.5 [facility] Comment on above: Performed By: #### I OCAL, MG, CDP, QUINN, BMPX #### [facility] [email or web address] [address] [place] [address] [employer] Operator: Juan Bauman MD MCHC (RBC) [Mass/Vol] 31.9 g/dL Normal 28.4-34.8 [facility] Comment on above: Performed By: #### I OCAL, MG, CDP, QUINN, BMPX #### [facility] [email or web address] [address] [place] [phone] [employer] Operator: Juan Bauman MD MCV (RBC) [Entitic vol] 90.2 fL Normal 82.6-102.9 [facility] Comment on above: Performed By: #### I OCAL, MG, CDP, QUINN, BMPX #### [facility] [email or web address] [address] [place] [address] [employer] Operator: Juan Bauman MD NRBC Automated 0.2 per 100 WBC High 0.0 [facility] Comment on above: Performed By: #### I OCAL, MG, CDP, QUINN, BMPX #### [facility] [email or web address] [address] [place] [address] [employer] Operator: Juan Bauman MD Platelet mean volume (Bld) [Entitic vol] 11.9 fL Normal 8.1-13.5 [facility] Comment on above: Performed By: #### I OCAL, MG, CDP, QUINN, BMPX #### [address] [address] [employer] Operator: Juan Bauman MD Platelets (Bld) [#/Vol] 219 10*3/uL Normal 138-453 [facility] Comment on above: Performed By: #### I OCAL, MG, CDP, QUINN, BMPX #### [facility] [email or web address] [address] [place] [address] [employer] Operator: Juan Bauman MD RBC (Bld) [#/Vol] 2.64 10*6/uL Low 3.95-5.11 [facility] Comment on above: Performed By: #### I OCAL, MG, CDP, QUINN, BMPX #### [facility] [email or web address] [address] [place] [address] [employer] Operator: Juan Bauman MD WBC (Bld) [#/Vol] 26.4 10*3/uL High 3.5-11.3 [facility] Comment on above: Performed By: #### I OCAL, MG, CDP, QUINN, BMPX #### [facility] [address] [place], [place] [id number] [employer] Operator: Juan Bauman MD Calcium, [employer] 07-24-2024 Calcium [Moles/Vol] 1.14 mmol/L Normal 1.13-1.33 [facility] Comment on above: Performed By: #### C DP, PRCAL, LACTIC, BMP, CRP, SED #### [facility] [email or web address] [address] [place] [address] [phone] [employer] Operator: Juan Bauman MD Calcium [Moles/Vol] 1.12 mmol/L Low 1.13-1.33 [facility] Comment on above: Performed By: #### I OCAL, MG, CDP, QUINN, BMPX #### [facility] [email or web address] [address] [place] [address] [phone] [employer] Operator: Juan Bauman MD Calcium, Ionizedon Calcium.ionized (Bld) [Moles/Vol] 1.14 mmol/L 1.13 - 1.33 mmol/L [facility] Calcium.ionized (Bld) [Moles/Vol] 1.12 mmol/L Low 1.13 - 1.33 mmol/L [facility] Interpretation and review of laboratory results Abnormal [facility] Cult,Aerobe/Anaerobeon 07-24 Cult,Aerobe/Anaerobe Specimen Descriptio n .BUTTOCK, LEFT Direct Exam RARE NEUTROPHILS MIXED BACTERIAL MORPHOTYPES SEEN ON GRAM STAIN. Culture BACTEROIDES THETAIOTAOMICRON MODERATE GROWTH Identification by MALDI-TOF BETA LACTAMASE POSITIVE NORMAL SKIN CITLALI Report Status FINAL 07/24/2024 Normal [facility] Comment on above: Performed By: #### I OCAL, MG, CDP, QUINN, BMPX #### [employer] [facility] [place], [place] [phone] [employer] Operator: Juan Bauman MD Glucose (POC)on 07-24-2024 Glucose [Mass/Vol] 299 mg/dL High 74-100 [facility] Glucose,Whole Bloodon 2024 Glucose [Mass/Vol] 117 mg/dL High 65-105 [facility] Glucose [Mass/Vol] 145 mg/dL High 65-105 [facility] Glucose [Mass/Vol] 134 mg/dL High 65-105 [facility] Glucose [Mass/Vol] 142 mg/dL High 65-105 [facility] Glucose [Mass/Vol] 166 mg/dL High 65-105 [facility] Glucose [Mass/Vol] 208 mg/dL High 65-105 [facility] Glucose [Mass/Vol] 214 mg/dL High -105 [facility] Glucose [Mass/Vol] 233 mg/dL High -105 [facility] Glucose [Mass/Vol] 263 mg/dL High -105 [facility] Glucose [Mass/Vol] 280 mg/dL High -105 [facility] Glucose [Mass/Vol] 302 mg/dL High -105 [facility] Glucose [Mass/Vol] 262 mg/dL High 65-105 [facility] Glucose [Mass/Vol] 260 mg/dL High -105 [facility] Hemoglobin A1Con 07-24-2024 Average glucose Estimated from glycated hemoglobin (Bld) [Mass/Vol] 378 mg/dL [facility] HbA1c (Bld) [Mass fraction] 14.8 % High 4.0 - 6.0 % [facility] Interpretation and review of laboratory results Abnormal [facility] Glucose [Mass/Vol] 378 mg/dL Normal [facility] Comment on above: Result Comment: The ADA and AACC recommend providing the estimated average glucose result to permit better patient understanding of their HBA1c result. Performed By: #### I OCAL, MG, CDP, QUINN, BMPX #### [facility] [place] [address] [employer] Operator: Juan Bauman MD HbA1c (Bld) [Mass fraction] 14.8 % High 4.0-6.0 [facility] Comment on above: Performed By: #### I OCAL, MG, CDP, QUINN, BMPX #### [employer] [address] [place] [id number] [employer] Operator: Juan Bauman MD Lactic Acid (POC)on 07-25-19 25 Lactate [Moles/Vol] 0.9 mmol/L Normal 0.56-1.39 [facility] Lactic Acid, POCon 5 POC Lactic Acid 0.9 mmol/L 0.56 - 1.39 mmol/L [facility] Magnesiumon 07-24-2024 Magnesium [Mass/Vol] 2 mg/dL 1.6 - 2 .4 mg/dL [facility] Magnesium [Mass/Vol] 2.0 mg/dL Normal 1.6-2.4 [facility] Comment on above: Performed By: #### C DP, PRCAL, LACTIC, BMP, CRP, SED #### [employer] [address] [place] [phone] [employer] Operator: Juan Bauman MD Magnesium [Mass/Vol] 1.9 mg/dL 1.6 - 2 .4 mg/dL [facility] Magnesium [Mass/Vol] 1.9 mg/dL Normal 1.6-2.4 [facility] Comment on above: Performed By: #### I OCAL, MG, CDP, QUINN, BMPX #### [facility] [address] [place] [id number] [employer] Operator: Juan Bauman MD No Panel Informationon 07-24 [facility] [employer] Interpretation and review of laboratory results Abnormal [facility] Interpretation and review of laboratory results Abnormal [facility] POC Glucose Fingerstickon Glucose [Mass/Vol] 117 mg/dL High 65 - 105 mg/dL [facility] Interpretation and review of laboratory results Abnormal [facility] Glucose [Mass/Vol] 145 mg/dL High 65 - 105 mg/dL [facility] Interpretation and review of laboratory results Abnormal [facility] Glucose [Mass/Vol] 134 mg/dL High 65 - 105 mg/dL [facility] Interpretation and review of laboratory results Abnormal [facility] Glucose [Mass/Vol] 142 mg/dL High 65 - 105 mg/dL [facility] Interpretation and review of laboratory results Abnormal [facility] Glucose [Mass/Vol] 166 mg/dL High 65 - 105 mg/dL [facility] Interpretation and review of laboratory results Abnormal [facility] Glucose [Mass/Vol] 208 mg/dL High 65 - 105 mg/dL [facility] [place] Interpretation and review of laboratory results Abnormal [facility] [place] Glucose [Mass/Vol] 214 mg/dL High 65 - 105 mg/dL [facility] Interpretation and review of laboratory results Abnormal [facility] Glucose [Mass/Vol] 233 mg/dL High 65 - 105 mg/dL [facility] Interpretation and review of laboratory results Abnormal [facility] Glucose [Mass/Vol] 263 mg/dL High 65 - 105 mg/dL [facility] [place] Interpretation and review of laboratory results Abnormal [facility] Glucose [Mass/Vol] 280 mg/dL High 65 - 105 mg/dL [facility] [place] Interpretation and review of laboratory results Abnormal [facility] Glucose [Mass/Vol] 302 mg/dL High 65 - 105 mg/dL [facility] Interpretation and review of laboratory results Abnormal [facility] Glucose [Mass/Vol] 262 mg/dL High 65 - 105 mg/dL [facility] [place] Interpretation and review of laboratory results Abnormal [facility] Glucose [Mass/Vol] 260 mg/dL High 65 - 105 mg/dL [facility] Interpretation and review of laboratory results Abnormal [facility] POCT Glucoseon 07-24-2024 Glucose [Mass/Vol] 299 mg/dL High 74 - 100 mg/dL [facility] PREPARE PLASMA, 1 Unitson Blood Bank Blood Product Expiration Date [id number] [facility] Blood Bank ISBT Product Blood Type 6200 [facility] Blood Bank Unit Type and Rh Positive [facility] Blood product unit ID (Dose) [#] [id number] [facility] Component FRESH PLASMA [facility] Dispense Status Blood Bank TRANSFUSED [facility] Product Code Blood Bank [id number] B on [facility] Transfusion Status OK TO TRANSFUSE B on [facility] Unit Divison 0 [facility] Unit Issue Date/Time [id number] [facility] Phosphoruson 07-24-2024 Phosphate [Mass/Vol] 2.6 mg/dL 2.5 - 4 .5 mg/dL [facility] Phosphate [Mass/Vol] 2.4 mg/dL Low 2.5 - 4 .5 mg/dL [facility] Phosphorus, Inorg.on 025 Phosphorus, Inorg. 2.6 mg/dL Normal 2.5-4.5 [facility] Comment on above: Performed By: #### C DP, PRCAL, LACTIC, BMP, CRP, SED #### [facility] [address] [place], [place] [phone] [employer] Operator: Juan Bauman MD Phosphorus, Inorg. 2.4 mg/dL Low 2.5-4.5 [facility] Comment on above: Performed By: #### I OCAL, MG, CDP, QUINN, BMPX #### [employer] [address] [place], [place] [phone] [employer] Operator: Juan Bauman MD Portable XR Chest AP single viewon 07-24-2024 Radiology Study observation (narrative) [facility] MHPN RIS CONSOLIDATED MHPN RIS CONSOLIDATED [facility] Portable XR Chest AP single viewOrdered By: Andrew Nunez on 07-24-2024 [facility] [employer] Work Phone: XR CHEST PORTABLEon 07-25-19 XR CHEST PORTABLE EXAM: 1 VIEW(S) XRAY OF THE CHEST 07/24/2024 05:09:00 AM COMPARISON: Comparison to study from yesterday. CLINICAL HISTORY: The patient is intubated. FINDINGS: LUNGS AND PLEURA: Mild airspace disease noted throughout both lungs, likely representing pulmonary edema, is stable. Small left greater than right bilateral pleural effusions. No pneumothorax. HEART AND MEDIASTINUM: Stable cardiomegaly. BONES AND SOFT TISSUES: No acute osseous abnormality. The ET tube, enteric tube, and central line are in stable position. IMPRESSION: 1. Stable mild airspace disease throughout both lungs, likely representing pulmonary edema. 2. Small left greater than right bilateral pleural effusions. 3. Stable cardiomegaly. Interpreted by: Andrew Nunez MD Signed by: Andrew Nunez MD 07/24/24 Final result Normal [facility] Arterial Bld Gas,POCon 07-23 Anthony Test Positive Normal [facility] FIO2 40.0 Normal [facility] HCO3 (Bld) [Moles/Vol] 20.8 mmol/L Low 21.0-28.0 M [facility] Negative Base Excess (calc) 3.2 mmol/L High 0.0-2.0 [facility] O2 Device Adult Ventilator Normal [facility] Oxygen saturation in Blood 98.1 % High 94.0-98.0 [facility] pCO2, Arterial 31.7 mm Hg Low 35.0-48.0 [facility] pH, Arterial 7.425 Normal 7.350-7.450 [facility] pO2, Arterial 101.8 mm Hg Normal 83.0-108.0 [facility] Site Drawn Right Radial Artery Normal [facility] Arterial Blood Gas, POCon Anthony Test Positive [facility] [employer] FIO2 40 [facility] HCO3 (Bld) [Moles/Vol] 20.8 mmol/L Low 21.0 - 28.0 mmol/L [facility] Negative Base Excess, Art 3.2 mmol/L High 0.0 - 2.0 mmol/L [facility] O2 Delivery Device Adult Ventilator [facility] Oxygen saturation in Blood 98.1 % High 94.0 - 98.0 % [facility] POC pCO2 31.7 Low [facility] POC pH 7.425 7.350 - 7.450 [facility] POC PO2 101.8 [facility] Sample Site Right Radial Artery [facility] Basic Metab w/rfx MGon 07-23 Anion gap [Moles/Vol] 12 mmol/L Normal 9-16 [facility] Comment on above: Performed By: #### I OCAL, MG, CDP, QUINN, BMPX #### [employer] [address] [place] [address] [phone] [employer] Operator: Juan Bauman MD Calcium [Mass/Vol] 8.1 mg/dL Low 8.6-10.4 [facility] Comment on above: Performed By: #### I OCAL, MG, CDP, QUINN, BMPX #### [employer] [address] [place] [phone] [employer] Operator: Juan Bauman MD Chloride [Moles/Vol] 105 mmol/L Normal 98-107 [facility] Comment on above: Performed By: #### I OCAL, MG, CDP, QUINN, BMPX #### [employer] [address] [place] [address] [phone] [employer] Operator: Juan Bauman MD CO2 [Moles/Vol] 20 mmol/L Normal 20-31 [facility] Comment on above: Performed By: #### I OCAL, MG, CDP, QUINN, BMPX #### [employer] [address] [place] [address] [phone] [employer] Operator: Juan Bauman MD Creatinine [Mass/Vol] 1.3 mg/dL High 0.6-0.9 [facility] Comment on above: Performed By: #### I OCAL, MG, CDP, QUINN, BMPX #### [facility] [email or web address] [address] [place] [address] [id number] [employer] Operator: Juan Bauman MD GFR/1.73 sq M.predicted among non-blacks MDRD (S/P/Bld) [Vol rate/Area] 46 mL/min/{1.73_m2} Low >60 [facility] Comment on above: Result Comment: These results are not intended for [...] following therapy that affects renal tubular secretion. Performed By: #### I OCAL, MG, CDP, QUINN, BMPX #### [facility] [address] [place] [id number] [employer] Operator: Juan Bauman MD Glucose [Mass/Vol] 195 mg/dL High 74-99 [facility] Comment on above: Performed By: #### I OCAL, MG, CDP, QUINN, BMPX #### [facility] [email or web address] [address] [place] [phone] [employer] Operator: Juan Bauman MD Potassium [Moles/Vol] 3.5 mmol/L Low 3.7-5.3 [facility] Comment on above: Performed By: #### I OCAL, MG, CDP, QUINN, BMPX #### [facility] [address] [place] [address] [phone] [employer] Operator: Juan Bauman MD Sodium [Moles/Vol] 137 mmol/L Normal 136-145 [facility] Comment on above: Performed By: #### I OCAL, MG, CDP, QUINN, BMPX #### [facility] [address] [place] [id number] [employer] Operator: Juan Bauman MD Urea nitrogen [Mass/Vol] 45 mg/dL High 8-23 [facility] Comment on above: Performed By: #### I OCAL, MG, CDP, QUINN, BMPX #### [facility] [address] [place], [place] [phone] [employer] Operator: Juan Bauman MD Basic Metabolic Panel w/ Ref esa to MGon 07-23-2024 Anion gap [Moles/Vol] 12 mmol/L 9 - 16 mmol/L [facility] Calcium [Mass/Vol] 8.1 mg/dL Low 8.6 - 10. 4 mg/dL [facility] Chloride [Moles/Vol] 105 mmol/L 98 - 10 7 mmol/L [facility] CO2 [Moles/Vol] 20 mmol/L 20 - 31 mmol/L [facility] Creatinine [Mass/Vol] 1.3 mg/dL High 0.6 - 0.9 mg/dL [facility] Est, Glom Filt Rate 46 Low - PINF [facility] Glucose [Mass/Vol] 195 mg/dL High 74 - 99 mg/dL [facility] Interpretation and review of laboratory results Abnormal [facility] Potassium [Moles/Vol] 3.5 mmol/L Low 3.7 - 5.3 mmol/L [facility] Sodium [Moles/Vol] 137 mmol/L 136 - 145 mmol/L [facility] Urea nitrogen [Mass/Vol] 45 mg/dL High 8 - 23 mg/dL [facility] CBC with Auto Differentialon 07-23-2024 Basophils (Bld) [#/Vol] 0 10*3/uL B on [facility] Basophils/100 WBC (Bld) 0 % 0 - 2 % B on [facility] Eosinophils (Bld) [#/Vol] 0 10*3/uL [facility] Eosinophils/100 WBC (Bld) 0 % Low 1 - 4 % [facility] Erythrocyte distribution width (RBC) [Ratio] 13.7 % 11.8 - 14.4 % [facility] Hematocrit (Bld) [Volume fraction] 22.9 % Low 36.3 - 47.1 % [facility] Hemoglobin (Bld) [Mass/Vol] 7.6 g/dL Low 11.9 - 15.1 g/dL [facility] Immature granulocytes (Bld) [#/Vol] 0.64 10*3/uL High [facility] Immature granulocytes/100 WBC (Bld) 4 % High 0 [facility] Interpretation and review of laboratory results Abnormal [facility] Lymphocytes/100 WBC (Bld) 7 % Low 24 - 44 % [facility] Lymphocytes/100 WBC (Bld) 1.13 % [facility] MCH (RBC) [Entitic mass] 29 pg 25.2 - 33.5 pg [facility] MCHC (RBC) [Mass/Vol] 33.2 g/dL 28.4 - 34.8 g/dL [facility] MCV (RBC) [Entitic vol] 87.4 fL 82.6 - 102.9 fL [facility] Monocytes/100 WBC (Bld) 1 % 1 - 7 % B on [facility] Monocytes/100 WBC (Bld) 0.16 % B on [facility] Morphology Germán (Bld) [Interp] HYPOCHROMIA PRESENT [facility] Neutrophils/100 WBC (Bld) 88 % High 36 - 66 % [facility] Nucleated RBC/100 WBC (Bld) [Ratio] 0.1 % High 0.0 per 100 WBC [facility] Platelet mean volume (Bld) [Entitic vol] 11.8 fL 8.1 - 13.5 fL [facility] Platelets (Bld) [#/Vol] 182 10*3/uL [facility] RBC (Bld) [#/Vol] 2.62 10*6/uL Low 3.95 - 5.1 1 m/uL [facility] Segmented neutrophils/100 WBC (Bld) 14.17 % High [facility] WBC other (Bld) [#/Vol] 16.1 High B on [facility] CBC with Diffon 07-23-2024 Abs. Basophil 0.00 k/uL Normal 0.0-0.2 [facility] Comment on above: Performed By: #### I OCAL, MG, CDP, QUINN, BMPX #### [facility] [email or web address] [address] [place] [phone] [employer] Operator: Juan Bauman MD Abs.Imm.Granulocyte 0.64 k/uL High 0.00-0.30 [facility] Comment on above: Performed By: #### I OCAL, MG, CDP, QUINN, BMPX #### [facility] [email or web address] [address] [place] [address] [employer] Operator: Juan Bauman MD Abs.Neutrophil (Seg) 14.17 k/uL High 1.8-7.7 [facility] Comment on above: Performed By: #### I OCAL, MG, CDP, QUINN, BMPX #### [facility] [email or web address] [address] [place] [address] [employer] Operator: Juan Bauman MD Basophils/100 WBC (Bld) 0 % Normal 0-2 [facility] Comment on above: Performed By: #### I OCAL, MG, CDP, QUINN, BMPX #### [facility] [email or web address] [address] [place] [phone] [employer] Operator: Juan Bauman MD Eosinophils (Bld) [#/Vol] 0.00 10*3/uL Normal 0.0-0.4 [facility] Comment on above: Performed By: #### I OCAL, MG, CDP, QUINN, BMPX #### [facility] [email or web address] [address] [place] [address] [employer] Operator: Juan Bauman MD Eosinophils/100 WBC (Bld) 0 % Low 1-4 [facility] Comment on above: Performed By: #### I OCAL, MG, CDP, QUINN, BMPX #### [facility] [email or web address] [address] [place] [phone] [employer] Operator: Juan Bauman MD Immature granulocytes/100 WBC (Bld) 4 % High 0 [facility] Comment on above: Performed By: #### I OCAL, MG, CDP, QUINN, BMPX #### [address] [address] [employer] Operator: Juan Bauman MD Lymphocytes (Bld) [#/Vol] 1.13 10*3/uL Normal 1.0-4.8 [facility] Comment on above: Performed By: #### I OCAL, MG, CDP, QUINN, BMPX #### [place] [address] [employer] Operator: Juan Bauman MD Lymphocytes/100 WBC (Bld) 7 % Low 24-44 [facility] Comment on above: Performed By: #### I OCAL, MG, CDP, QUINN, BMPX #### [place] [address] [employer] Operator: Juan Bauman MD Monocytes (Bld) [#/Vol] 0.16 10*3/uL Normal 0.1-0.8 [facility] Comment on above: Performed By: #### I OCAL, MG, CDP, QUINN, BMPX #### [address] [address] [employer] Operator: Juan Bauman MD Monocytes/100 WBC (Bld) 1 % Normal 1-7 [facility] Comment on above: Performed By: #### I OCAL, MG, CDP, QUINN, BMPX #### [place] [address] [employer] Operator: Juan Bauman MD Morphology Germán (Bld) [Interp] HYPOCHROMIA PRESENT Normal [facility] Comment on above: Performed By: #### I OCAL, MG, CDP, QUINN, BMPX #### [address] [address] [employer] Operator: Juan Bauman MD Neutrophil (Seg) 88 % High 36-66 [facility] Comment on above: Performed By: #### I OCAL, MG, CDP, QUINN, BMPX #### [address] [address] [employer] Operator: Juan Bauman MD Erythrocyte distribution width (RBC) [Ratio] 13.7 % Normal 11.8-14.4 [facility] Comment on above: Performed By: #### I OCAL, MG, CDP, QUINN, BMPX #### [address] [address] [employer] Operator: Juan Bauman MD Hematocrit (Bld) [Volume fraction] 22.9 % Low 36.3-47.1 [facility] Comment on above: Performed By: #### I OCAL, MG, CDP, QUINN, BMPX #### [address] [address] [employer] Operator: Juan Bauman MD Hemoglobin (Bld) [Mass/Vol] 7.6 g/dL Low 11.9-15.1 [facility] Comment on above: Performed By: #### I OCAL, MG, CDP, QUINN, BMPX #### [address] [address] [employer] Operator: Juan Buaman MD MCH (RBC) [Entitic mass] 29.0 pg Normal 25.2-33.5 [facility] Comment on above: Performed By: #### I OCAL, MG, CDP, QUINN, BMPX #### [address] [address] [employer] Operator: Juan Bauamn MD MCHC (RBC) [Mass/Vol] 33.2 g/dL Normal 28.4-34.8 [facility] Comment on above: Performed By: #### I OCAL, MG, CDP, QUINN, BMPX #### [address] [address] [employer] Operator: Juan Bauman MD MCV (RBC) [Entitic vol] 87.4 fL Normal 82.6-102.9 [facility] Comment on above: Performed By: #### I OCAL, MG, CDP, QUINN, BMPX #### [address] [address] [employer] Operator: Juan Bauman MD NRBC Automated 0.1 per 100 WBC High 0.0 [facility] Comment on above: Performed By: #### I OCAL, MG, CDP, QUINN, BMPX #### [address] [address] [employer] Operator: Juan Bauman MD Platelet mean volume (Bld) [Entitic vol] 11.8 fL Normal 8.1-13.5 [facility] Comment on above: Performed By: #### I OCAL, MG, CDP, QUINN, BMPX #### [address] [address] [employer] Operator: Juan Bauman MD Platelets (Bld) [#/Vol] 182 10*3/uL Normal 138-453 [facility] Comment on above: Performed By: #### I OCAL, MG, CDP, QUINN, BMPX #### [address] [address] [employer] Operator: Juan Bauman MD RBC (Bld) [#/Vol] 2.62 10*6/uL Low 3.95-5.11 [facility] Comment on above: Performed By: #### I OCAL, MG, CDP, QUINN, BMPX #### [address] [address] [employer] Operator: Juan Bauman MD WBC (Bld) [#/Vol] 16.1 10*3/uL High 3.5-11.3 [facility] Comment on above: Performed By: #### I OCAL, MG, CDP, QUINN, BMPX #### [employer] [address] [place] [address] [phone] [employer] Operator: Juan Bauman MD Calcium, Ionicon 07-23-2024 Calcium [Moles/Vol] 1.12 mmol/L Low 1.13-1.33 [facility] Comment on above: Performed By: #### I OCAL, MG, CDP, QUINN, BMPX #### [facility] [place], [place] [id number] [employer] Operator: Juan Bauman MD Calcium, Ionizedon Calcium.ionized (Bld) [Moles/Vol] 1.12 mmol/L Low 1.13 - 1.33 mmol/L [facility] Interpretation and review of laboratory results Abnormal [facility] Culture, Anaerobic and Aerob icon 07-23-2024 Interpretation and review of laboratory results Abnormal [facility] Microorganism identified Cx Nom (Unsp spec) BACTEROIDES THETAIOTAOMICRON MODERATE GROWTH Identification by MALDI-TOF BETA LACTAMASE POSITIVE Abnormal [facility] Microorganism identified Cx Nom (Unsp spec) NORMAL SKIN CITLALI [facility] Microorganism or agent identified Nom (Unsp spec) RARE NEUTROPHILS [facility] Microorganism or agent identified Nom (Unsp spec) MIXED BACTERIAL MORPHOTYPES SEEN ON GRAM STAIN. [facility] Specimen Description .BUTTOCK, LEFT [facility] FFP, Transfuseon 07-23-2024 FFP, Transfuse Unit Number [id number] Blood Component Type FRESH PLASMA Unit Division 00 Status of Unit TRANSFUSED Transfusion Status OK TO TRANSFUSE Normal [facility] Comment on above: Performed By: #### C DP, PRCAL, LACTIC, BMP, CRP, SED #### [employer] [facility] [place], [place] [id number] [employer] Operator: Juan Bauman MD Global Hemo TEGw/Bel(POC)on 07-23-2024 Fibrinogen, Func TEG >52.0 High 15.0-32.0 [facility] LY30 (Lysis) TEG 0.0 % Normal 0.0-2.6 [facility] MA Rapid TEG 74.6 mm High 52.0-70.0 [facility] Performing Location: Performed at [facility] ECMO Normal [facility] R(Reaction Time) TEG 11.0 min High 4.6-9.1 [facility] Glucose (POC)on 07-23-2024 Glucose [Mass/Vol] 178 mg/dL High 74-100 [facility] Glucose,Whole Bloodon 2024 Glucose [Mass/Vol] 226 mg/dL High 65-105 [facility] Glucose [Mass/Vol] 199 mg/dL High 65-105 [facility] Glucose [Mass/Vol] 202 mg/dL High 65-105 [facility] Glucose [Mass/Vol] 186 mg/dL High 65-105 [facility] Glucose [Mass/Vol] 192 mg/dL High 65-105 [facility] Glucose [Mass/Vol] 204 mg/dL High 65-105 [facility] Lactic Acid (POC)on 07-24-19 25 Lactate [Moles/Vol] 0.9 mmol/L Normal 0.56-1.39 [facility] Lactic Acid, POCon 5 POC Lactic Acid 0.9 mmol/L 0.56 - 1.39 mmol/L [facility] Magnesiumon 07-23-2024 Magnesium [Mass/Vol] 1.9 mg/dL 1.6 - 2 .4 mg/dL [facility] Magnesium [Mass/Vol] 1.9 mg/dL Normal 1.6-2.4 [facility] Comment on above: Performed By: #### I OCAL, MG, CDP, QUINN, BMPX #### [facility] [email or web address] [address] [place], [place] [id number] [employer] Operator: Juan Bauman MD No Panel Informationon 07-23 Interpretation and review of laboratory results Abnormal [facility] POC Global Hemostasis TEG w/ Lysison 07-23-2024 Fibrinogen, Functional TEG mm High 15.0 - 32.0 mm [facility] Interpretation and review of laboratory results Abnormal [facility] LY30(Lysis) TEG 0 % 0.0 - 2.6 % [facility] MA(Max Clot) Rapid TEG 74.6 mm High 52.0 - 70.0 mm [facility] Performing Location Performed at [facility] ECMO [facility] Reaction Time TEG 11 min High 4.6 - 9.1 min [facility] POC Glucose Fingerstickon Glucose [Mass/Vol] 226 mg/dL High 65 - 105 mg/dL [facility] Interpretation and review of laboratory results Abnormal [facility] Glucose [Mass/Vol] 199 mg/dL High 65 - 105 mg/dL [facility] Interpretation and review of laboratory results Abnormal [facility] Glucose [Mass/Vol] 202 mg/dL High 65 - 105 mg/dL [facility] Interpretation and review of laboratory results Abnormal [facility] Glucose [Mass/Vol] 186 mg/dL High 65 - 105 mg/dL [facility] Interpretation and review of laboratory results Abnormal [facility] Glucose [Mass/Vol] 192 mg/dL High 65 - 105 mg/dL [facility] Interpretation and review of laboratory results Abnormal [facility] Glucose [Mass/Vol] 204 mg/dL High 65 - 105 mg/dL [facility] Interpretation and review of laboratory results Abnormal [facility] POCT Glucoseon 07-23-2024 Glucose [Mass/Vol] 178 mg/dL High 74 - 100 mg/dL [facility] Phosphoruson 07-23-2024 Phosphate [Mass/Vol] 3.3 mg/dL 2.5 - 4 .5 mg/dL [facility] Phosphorus, Inorg.on 025 Phosphorus, Inorg. 3.3 mg/dL Normal 2.5-4.5 [facility] Comment on above: Performed By: #### I OCAL, MG, CDP, QUINN, BMPX #### [employer] [address] [place], [place] [id number] [employer] Operator: Juan Bauman MD Portable XR Chest AP single viewon 07-23-2024 MHPN RIS CONSOLIDATED PN RIS CONSOLIDATED [facility] Radiology Study observation (narrative) [facility] Portable XR Chest AP single viewOrdered By: Elizabeth Chaney on 07-23-2024 [facility] Work Phone: Triglycerideon 07-23-2024 Interpretation and review of laboratory results Abnormal [facility] Triglyceride [Mass/Vol] 309 mg/dL High NINF - 150 mg/dL [facility] Triglycerideson 07-23-2024 Triglyceride [Mass/Vol] 309 mg/dL High <150 [facility] Comment on above: Result Comment: Triglyceride Guidelines: <150 Desirable 150-199 Borderline 200-499 High >499 Very high Based on AHA Guidelines for fasting triglyceride, November 2011. Performed By: #### I OCAL, MG, CDP, QUINN, BMPX #### [facility] [address] [place], [place] [address] [employer] Operator: Juan Bauman MD XR CHEST PORTABLEon 07-24-19 25 XR CHEST PORTABLE EXAMINATION: ONE XRAY VIEW OF THE CHEST 07/23/2024 4:59 am COMPARISON: Chest radiograph 07/22/2024 HISTORY: ORDERING SYSTEM PROVIDED HISTORY: intubated TECHNOLOGIST PROVIDED HISTORY: intubated Reason for Exam: port. supine FINDINGS: Endotracheal tube with tip projecting 6-7cm above the khushbu. Enteric tube projects past the GE junction with tip projecting beyond field of view. Left internal jugular central venous catheter with tip projecting over the superior cavoatrial junction. The patient is rotated. No new focal consolidation. No pneumothorax. Unchanged cardiomediastinal silhouette. No acute osseous abnormality. IMPRESSION: 1. Stable lines and tubes. 2. Limited evaluation without evidence of acute cardiopulmonary process. Interpreted by: Elizabeth Chaney MD Signed by: Elizabeth Chaney MD 07/23/24 Final result Normal [facility] Arterial Bld Gas,POCon 07-22 Anthony Test Positive Normal [facility] Bicarbonate,Arterial (calc) Can not be calculated Normal 21.0-28.0 [facility] FIO2 100.0 Normal [facility] Mode of Delivery PRVC Normal [facility] O2 Device Adult Ventilator Normal [facility] O2 Sat, Art (calc) Can not be calculated Normal 94.0-9 8.0 [facility] pCO2, Arterial 61.1 mm Hg High 35.0-48.0 [facility] pH, Arterial Result not available. Normal 7.350-7.450 [facility] pO2, Arterial 425.5 mm Hg High 83.0-108.0 [facility] Positive Base Excess (calc) Can not be calculated Normal 0.0-3.0 [facility] Site Drawn Left Radial Artery Normal [facility] Anthony Test Positive Normal [facility] FIO2 40.0 Normal [facility] HCO3 (Bld) [Moles/Vol] 18.5 mmol/L Low 21.0-28.0 [facility] Mode of Delivery PRVC Normal [facility] Negative Base Excess (calc) 5.8 mmol/L High 0.0-2.0 [facility] O2 Device Adult Ventilator Normal [facility] Oxygen saturation in Blood 99.0 % High 94.0-98.0 [facility] pCO2, Arterial 30.4 mm Hg Low 35.0-48.0 [facility] pH, Arterial 7.392 Normal 7.350-7.450 [facility] pO2, Arterial 130.3 mm Hg High 83.0-108.0 [facility] Site Drawn Right Radial Artery Normal [facility] Basic Metab w/rfx MGon 07-22 Anion gap [Moles/Vol] 13 mmol/L Normal 9-16 [facility] Comment on above: Performed By: #### I OCAL, MG, CDP, QUINN, BMPX #### [address] [id number] [employer] Operator: Juan Bauman MD Calcium [Mass/Vol] 7.9 mg/dL Low 8.6-10.4 [facility] Comment on above: Performed By: #### I OCAL, MG, CDP, QUINN, BMPX #### [facility] [email or web address] [address] [place] [address] [employer] Operator: Juan Bauman MD Chloride [Moles/Vol] 102 mmol/L Normal 98-107 [facility] Comment on above: Performed By: #### I OCAL, MG, CDP, QUINN, BMPX #### [facility] [email or web address] [address] [place] [id number] [employer] Operator: Juan Bauman MD CO2 [Moles/Vol] 19 mmol/L Low 20-31 [facility] Comment on above: Performed By: #### I OCAL, MG, CDP, QUINN, BMPX #### [facility] [email or web address] [address] [place] [id number] [employer] Operator: Juan Bauman MD Creatinine [Mass/Vol] 1.3 mg/dL High 0.6-0.9 [facility] Comment on above: Performed By: #### I OCAL, MG, CDP, QUINN, BMPX #### [facility] [email or web address] [address] [place] [phone] [employer] Operator: Juan Bauman MD GFR/1.73 sq M.predicted among non-blacks MDRD (S/P/Bld) [Vol rate/Area] 46 mL/min/{1.73_m2} Low >60 [facility] Comment on above: Result Comment: These results are not intended for [...] following therapy that affects renal tubular secretion. Performed By: #### I OCAL, MG, CDP, QUINN, BMPX #### [facility] [address] [place] [address] [employer] Operator: Juan Bauman MD Glucose [Mass/Vol] 197 mg/dL High 74-99 [facility] Comment on above: Performed By: #### I OCAL, MG, CDP, QUINN, BMPX #### [facility] [email or web address] [address] [place] [phone] [employer] Operator: Juan Bauman MD Potassium [Moles/Vol] 3.7 mmol/L Normal 3.7-5.3 [facility] Comment on above: Performed By: #### I OCAL, MG, CDP, QUINN, BMPX #### [facility] [email or web address] [address] [place] [phone] [employer] Operator: Juan Bauman MD Sodium [Moles/Vol] 134 mmol/L Low 136-145 [facility] Comment on above: Performed By: #### I OCAL, MG, CDP, QUINN, BMPX #### [facility] [address] [place] [address] [employer] Operator: Juan Bauman MD Urea nitrogen [Mass/Vol] 45 mg/dL High 8-23 [facility] Comment on above: Performed By: #### I OCAL, MG, CDP, QUINN, BMPX #### [facility] [email or web address] [address] [place] [phone] [employer] Operator: Juan Bauman MD Basic Metabolic Panelon 06-0 Anion gap [Moles/Vol] 19 mmol/L High 9 - 16 mmol/L [facility] Calcium [Mass/Vol] 8.6 mg/dL 8.6 - 10. 4 mg/dL [facility] Chloride [Moles/Vol] 102 mmol/L 98 - 10 7 mmol/L [facility] CO2 [Moles/Vol] 16 mmol/L Low 20 - 31 mmol/L [facility] Creatinine [Mass/Vol] 1.3 mg/dL High 0.6 - 0.9 mg/dL [facility] Est, Glom Filt Rate 46 Low - PINF [facility] Glucose [Mass/Vol] 234 mg/dL High 74 - 99 mg/dL [facility] Interpretation and review of laboratory results Abnormal [facility] Potassium [Moles/Vol] 3.7 mmol/L 3.7 - 5.3 mmol/L [facility] Sodium [Moles/Vol] 137 mmol/L 136 - 145 mmol/L [facility] Urea nitrogen [Mass/Vol] 47 mg/dL High 8 - 23 mg/dL [facility] Basic Metabolic Profon 07-22 Anion gap [Moles/Vol] 19 mmol/L High 9-16 [facility] Comment on above: Performed By: #### I OCAL, MG, CDP, QUINN, BMPX #### [employer] [address] [place] [address] [employer] Operator: Juan Bauman MD Calcium [Mass/Vol] 8.6 mg/dL Normal 8.6-10.4 [facility] Comment on above: Performed By: #### I OCAL, MG, CDP, QUINN, BMPX #### [employer] [address] [place] [address] [employer] Operator: Juan Bauman MD Chloride [Moles/Vol] 102 mmol/L Normal 98-107 [facility] Comment on above: Performed By: #### I OCAL, MG, CDP, QUINN, BMPX #### [employer] [address] [place] [address] [employer] Operator: Juan Bauman MD CO2 [Moles/Vol] 16 mmol/L Low 20-31 [facility] Comment on above: Performed By: #### I OCAL, MG, CDP, QUINN, BMPX #### [address] [phone] [employer] Operator: Juan Bauman MD Creatinine [Mass/Vol] 1.3 mg/dL High 0.6-0.9 [facility] Comment on above: Performed By: #### I OCAL, MG, CDP, QUINN, BMPX #### [address] [address] [employer] Operator: Juan Bauman MD GFR/1.73 sq M.predicted among non-blacks MDRD (S/P/Bld) [Vol rate/Area] 46 mL/min/{1.73_m2} Low >60 [facility] Comment on above: Result Comment: These results are not intended for [...] following therapy that affects renal tubular secretion. Performed By: #### I OCAL, MG, CDP, QUINN, BMPX #### [address] [address] [employer] Operator: Juan Bauman MD Glucose [Mass/Vol] 234 mg/dL High 74-99 [facility] Comment on above: Performed By: #### I OCAL, MG, CDP, QUINN, BMPX #### [address] [address] [employer] Operator: Juan Bauman MD Potassium [Moles/Vol] 3.7 mmol/L Normal 3.7-5.3 [facility] Comment on above: Performed By: #### I OCAL, MG, CDP, QUINN, BMPX #### [facility] [address] [place], [place] [id number] [employer] Operator: Juan Bauman MD Sodium [Moles/Vol] 137 mmol/L Normal 136-145 [facility] Comment on above: Performed By: #### I OCAL, MG, CDP, QUINN, BMPX #### [facility] [address] [place], [place] [id number] [employer] Operator: Juan Bauman MD Urea nitrogen [Mass/Vol] 47 mg/dL High 8-23 [facility] Comment on above: Performed By: #### I OCAL, MG, CDP, QUINN, BMPX #### [facility] [address] [place], [place] [id number] [employer] Operator: Juan Bauman MD CBC with Auto Differentialon 07-22-2024 Basophils (Bld) [#/Vol] 0 10*3/uL [facility] Basophils/100 WBC (Bld) 0 % 0 - 2 % [facility] Eosinophils (Bld) [#/Vol] 0 10*3/uL [facility] Eosinophils/100 WBC (Bld) 0 % Low 1 - 4 % [facility] Erythrocyte distribution width (RBC) [Ratio] 13.6 % 11.8 - 14.4 % [facility] Hematocrit (Bld) [Volume fraction] 28.3 % Low 36.3 - 47.1 % [facility] Hemoglobin (Bld) [Mass/Vol] 9.5 g/dL Low 11.9 - 15.1 g/dL [facility] Immature granulocytes (Bld) [#/Vol] 1.18 10*3/uL High [facility] Immature granulocytes/100 WBC (Bld) 4 % High 0 [facility] Interpretation and review of laboratory results Abnormal [facility] Lymphocytes/100 WBC (Bld) 9 % Low 24 - 44 % [facility] Lymphocytes/100 WBC (Bld) 2.66 % [facility] MCH (RBC) [Entitic mass] 29.2 pg 25.2 - 33.5 pg [facility] MCHC (RBC) [Mass/Vol] 33.6 g/dL 28.4 - 34.8 g/dL [facility] MCV (RBC) [Entitic vol] 87.1 fL 82.6 - 102.9 fL [facility] Morphology Germán (Bld) [Interp] Normal [facility] Neutrophils/100 WBC (Bld) 87 % High 36 - 66 % [facility] Nucleated RBC/100 WBC (Bld) [Ratio] 0.1 % High 0.0 per 100 WBC [facility] Platelet mean volume (Bld) [Entitic vol] 11.9 fL 8.1 - 13.5 fL [facility] Platelets (Bld) [#/Vol] 198 10*3/uL [facility] RBC (Bld) [#/Vol] 3.25 10*6/uL Low 3.95 - 5.1 1 m/uL [facility] Segmented neutrophils/100 WBC (Bld) 25.66 % High [facility] WBC other (Bld) [#/Vol] 29.5 High B on [facility] CBC with Diffon 07-22-2024 Abs. Basophil 0.00 k/uL Normal 0.0-0.2 [facility] Comment on above: Performed By: #### I OCAL, MG, CDP, QUINN, BMPX #### [employer] [address] [place], [place] [id number] [employer] Operator: Juan Bauman MD Abs.Imm.Granulocyte 1.18 k/uL High 0.00-0.30 [facility] Comment on above: Performed By: #### I OCAL, MG, CDP, QUINN, BMPX #### [employer] [address] [place], [place] [phone] [employer] Operator: Juan Bauman MD Abs.Neutrophil (Seg) 25.66 k/uL High 1.8-7.7 [facility] Comment on above: Performed By: #### I OCAL, MG, CDP, QUINN, BMPX #### [place] [address] [employer] Operator: Juan Bauman MD Basophils/100 WBC (Bld) 0 % Normal 0-2 [facility] Comment on above: Performed By: #### I OCAL, MG, CDP, QUINN, BMPX #### [place] [address] [employer] Operator: Juan Bauman MD Eosinophils (Bld) [#/Vol] 0.00 10*3/uL Normal 0.0-0.4 [facility] Comment on above: Performed By: #### I OCAL, MG, CDP, QUINN, BMPX #### [place] [address] [employer] Operator: Juan Bauman MD Eosinophils/100 WBC (Bld) 0 % Low 1-4 [facility] Comment on above: Performed By: #### I OCAL, MG, CDP, QUINN, BMPX #### [place] [address] [employer] Operator: Juan Bauman MD Immature granulocytes/100 WBC (Bld) 4 % High 0 [facility] Comment on above: Performed By: #### I OCAL, MG, CDP, QUINN, BMPX #### [place] [address] [employer] Operator: Juan Bauman MD Lymphocytes (Bld) [#/Vol] 2.66 10*3/uL Normal 1.0-4.8 [facility] Comment on above: Performed By: #### I OCAL, MG, CDP, QUINN, BMPX #### [facility] [email or web address] [address] [place] [address] [employer] Operator: Juan Bauman MD Lymphocytes/100 WBC (Bld) 9 % Low 24-44 [facility] Comment on above: Performed By: #### I OCAL, MG, CDP, QUINN, BMPX #### [place] [address] [employer] Operator: Juan Bauman MD Monocytes (Bld) [#/Vol] 0.00 10*3/uL Low 0.1-0.8 [facility] Comment on above: Performed By: #### I OCAL, MG, CDP, QUINN, BMPX #### [address] [address] [employer] Operator: Juan Bauman MD Monocytes/100 WBC (Bld) 0 % Low 1-7 [facility] Comment on above: Performed By: #### I OCAL, MG, CDP, QUINN, BMPX #### [place] [address] [employer] Operator: Juan Bauman MD Morphology Germán (Bld) [Interp] Normal Normal [facility] Comment on above: Performed By: #### I OCAL, MG, CDP, QUINN, BMPX #### [place] [address] [employer] Operator: Juan Bauman MD Neutrophil (Seg) 87 % High 36-66 [facility] Comment on above: Performed By: #### I OCAL, MG, CDP, QUINN, BMPX #### [place] [address] [employer] Operator: Juan Bauman MD Erythrocyte distribution width (RBC) [Ratio] 13.6 % Normal 11.8-14.4 [facility] Comment on above: Performed By: #### I OCAL, MG, CDP, QUINN, BMPX #### [facility] [email or web address] [address] [place] [id number] [employer] Operator: Juan Bauman MD Hematocrit (Bld) [Volume fraction] 28.3 % Low 36.3-47.1 [facility] Comment on above: Performed By: #### I OCAL, MG, CDP, QUINN, BMPX #### [facility] [email or web address] [address] [place] [address] [employer] Operator: Juan Bauman MD Hemoglobin (Bld) [Mass/Vol] 9.5 g/dL Low 11.9-15.1 [facility] Comment on above: Performed By: #### I OCAL, MG, CDP, QUINN, BMPX #### [facility] [email or web address] [address] [place] [address] [employer] Operator: Juan Bauman MD MCH (RBC) [Entitic mass] 29.2 pg Normal 25.2-33.5 [facility] Comment on above: Performed By: #### I OCAL, MG, CDP, QUINN, BMPX #### [address] [address] [employer] Operator: Juan Bauman MD MCHC (RBC) [Mass/Vol] 33.6 g/dL Normal 28.4-34.8 [facility] Comment on above: Performed By: #### I OCAL, MG, CDP, QUINN, BMPX #### [facility] [email or web address] [address] [place] [id number] [employer] Operator: Juan Bauman MD MCV (RBC) [Entitic vol] 87.1 fL Normal 82.6-102.9 [facility] Comment on above: Performed By: #### I OCAL, MG, CDP, QUINN, BMPX #### [address] [address] [employer] Operator: Juan Bauman MD NRBC Automated 0.1 per 100 WBC High 0.0 [facility] Comment on above: Performed By: #### I OCAL, MG, CDP, QUINN, BMPX #### [facility] [email or web address] [address] [place] [phone] [employer] Operator: Juan Bauman MD Platelet mean volume (Bld) [Entitic vol] 11.9 fL Normal 8.1-13.5 [facility] Comment on above: Performed By: #### I OCAL, MG, CDP, QUINN, BMPX #### [address] [address] [employer] Operator: Juan Bauman MD Platelets (Bld) [#/Vol] 198 10*3/uL Normal 138-453 [facility] Comment on above: Performed By: #### I OCAL, MG, CDP, QUINN, BMPX #### [place] [address] [employer] Operator: Juan Bauman MD RBC (Bld) [#/Vol] 3.25 10*6/uL Low 3.95-5.11 [facility] Comment on above: Performed By: #### I OCAL, MG, CDP, QUINN, BMPX #### [place] [address] [employer] Operator: Juan Bauman MD WBC (Bld) [#/Vol] 29.5 10*3/uL High 3.5-11.3 [facility] Comment on above: Performed By: #### I OCAL, MG, CDP, QUINN, BMPX #### [facility] [email or web address] [address] [place] [address] [employer] Machine Operator: Juan Bauman MD Abs. Basophil 0.00 k/uL Normal 0.0-0.2 [facility] Comment on above: Performed By: #### I OCAL, MG, CDP, QUINN, BMPX #### [facility] [email or web address] [address] [place] [address] [employer] Operator: Juan Bauman MD Abs.Imm.Granulocyte 0.57 k/uL High 0.00-0.30 [facility] Comment on above: Performed By: #### I OCAL, MG, CDP, QUINN, BMPX #### [address] [address] [employer] Operator: Juan Bauman MD Abs.Neutrophil (Seg) 16.25 k/uL High 1.8-7.7 [facility] Comment on above: Performed By: #### I OCAL, MG, CDP, QUINN, BMPX #### [address] [address] [employer] Operator: Juan Bauman MD Basophils/100 WBC (Bld) 0 % Normal 0-2 [facility] Comment on above: Performed By: #### I OCAL, MG, CDP, QUINN, BMPX #### [address] [address] [employer] Operator: Juan Bauman MD Eosinophils (Bld) [#/Vol] 0.00 10*3/uL Normal 0.0-0.4 [facility] Comment on above: Performed By: #### I OCAL, MG, CDP, QUINN, BMPX #### [address] [address] [employer] Operator: Juan Bauman MD Eosinophils/100 WBC (Bld) 0 % Low 1-4 [facility] Comment on above: Performed By: #### I OCAL, MG, CDP, QUINN, BMPX #### [address] [address] [employer] Operator: Juan Bauman MD Immature granulocytes/100 WBC (Bld) 3 % High 0 [facility] Comment on above: Performed By: #### I OCAL, MG, CDP, QUINN, BMPX #### [address] [address] [employer] Operator: Juan Bauman MD Lymphocytes (Bld) [#/Vol] 1.51 10*3/uL Normal 1.0-4.8 [facility] Comment on above: Performed By: #### I OCAL, MG, CDP, QUINN, BMPX #### [address] [address] [employer] Operator: Juan Bauman MD Lymphocytes/100 WBC (Bld) 8 % Low 24-44 [facility] Comment on above: Performed By: #### I OCAL, MG, CDP, QUINN, BMPX #### [address] [address] [employer] Operator: Juan Bauman MD Monocytes (Bld) [#/Vol] 0.57 10*3/uL Normal 0.1-0.8 [facility] Comment on above: Performed By: #### I OCAL, MG, CDP, QUINN, BMPX #### [address] [address] [employer] Operator: Juan Bauman MD Monocytes/100 WBC (Bld) 3 % Normal 1-7 [facility] Comment on above: Performed By: #### I OCAL, MG, CDP, QUINN, BMPX #### [address] [address] [employer] Operator: Juan Bauman MD Morphology Germán (Bld) [Interp] Normal Normal [facility] Comment on above: Performed By: #### I OCAL, MG, CDP, QUINN, BMPX #### [address] [address] [employer] Operator: Juan Bauman MD Neutrophil (Seg) 86 % High 36-66 [facility] Comment on above: Performed By: #### I OCAL, MG, CDP, QUINN, BMPX #### [address] [address] [employer] Operator: Juan Bauman MD Erythrocyte distribution width (RBC) [Ratio] 13.6 % Normal 11.8-14.4 [facility] Comment on above: Performed By: #### I OCAL, MG, CDP, QUINN, BMPX #### [address] [address] [employer] Operator: Juan Bauman MD Hematocrit (Bld) [Volume fraction] 22.7 % Low 36.3-47.1 [facility] Comment on above: Performed By: #### I OCAL, MG, CDP, QUINN, BMPX #### [address] [address] [employer] Operator: Juan Bauman MD Hemoglobin (Bld) [Mass/Vol] 7.8 g/dL Low 11.9-15.1 [facility] Comment on above: Performed By: #### I OCAL, MG, CDP, QUINN, BMPX #### [address] [address] [employer] Operator: Juan Bauman MD MCH (RBC) [Entitic mass] 29.5 pg Normal 25.2-33.5 [facility] Comment on above: Performed By: #### I OCAL, MG, CDP, QUINN, BMPX #### [address] [address] [employer] Operator: Juan Bauman MD MCHC (RBC) [Mass/Vol] 34.4 g/dL Normal 28.4-34.8 [facility] Comment on above: Performed By: #### I OCAL, MG, CDP, QUINN, BMPX #### [address] [address] [employer] Operator: Juan Bauman MD MCV (RBC) [Entitic vol] 86.0 fL Normal 82.6-102.9 [facility] Comment on above: Performed By: #### I OCAL, MG, CDP, QUINN, BMPX #### [address] [id number] [employer] Operator: Juan Bauman MD NRBC Automated 0.2 per 100 WBC High 0.0 [facility] Comment on above: Performed By: #### I OCAL, MG, CDP, QUINN, BMPX #### [facility] [email or web address] [address] [place] [address] [employer] Operator: Juan Bauman MD Platelet Count See Reflexed IPF Result Normal 138-453 [facility] Comment on above: Performed By: #### I OCAL, MG, CDP, QUINN, BMPX #### [facility] [email or web address] [address] [place] [address] [employer] Operator: Juan Bauman MD Platelet, Fluoresc. 179 k/uL Normal 138-453 [facility] Comment on above: Performed By: #### I OCAL, MG, CDP, QUINN, BMPX #### [address] [address] [employer] Operator: Juan Bauman MD PLT, Immature Fract. 3.1 % Normal 1.1-10.3 [facility] Comment on above: Performed By: #### I OCAL, MG, CDP, QUINN, BMPX #### [facility] [email or web address] [address] [place] [address] [employer] Operator: Juan Bauman MD RBC (Bld) [#/Vol] 2.64 10*6/uL Low 3.95-5.11 [facility] Comment on above: Performed By: #### I OCAL, MG, CDP, QUINN, BMPX #### [facility] [email or web address] [address] [place] [address] [employer] Operator: Juan Bauman MD WBC (Bld) [#/Vol] 18.9 10*3/uL High 3.5-11.3 [facility] Comment on above: Performed By: #### I OCAL, MG, CDP, QUINN, BMPX #### [facility] [email or web address] [address] [place] [phone] [employer] Operator: Juan Bauman MD Calcium, Ionicon 07-22-2024 Calcium [Moles/Vol] 1.12 mmol/L Low 1.13-1.33 [facility] Comment on above: Performed By: #### I OCAL, MG, CDP, QUINN, BMPX #### [facility] [address] [place], [place] [phone] [employer] Operator: Juan Bauman MD Calcium [Moles/Vol] 1.06 mmol/L Low 1.13-1.33 [facility] Comment on above: Performed By: #### I OCAL, MG, CDP, QUINN, BMPX #### [facility] [address] [place], [place] [phone] [employer] Operator: Juan Bauman MD Calcium, Ionizedon Calcium.ionized (Bld) [Moles/Vol] 1.12 mmol/L Low 1.13 - 1.33 mmol/L [facility] Interpretation and review of laboratory results Abnormal [facility] Glucose (POC)on 07-22-2024 Glucose [Mass/Vol] 160 mg/dL High 74-100 [facility] Glucose [Mass/Vol] 188 mg/dL High 74-100 [facility] Glucose,Whole Bloodon 2024 Glucose [Mass/Vol] 218 mg/dL High 65-105 [facility] Glucose [Mass/Vol] 179 mg/dL High 65-105 [facility] Glucose [Mass/Vol] 193 mg/dL High 65-105 [facility] Laboratory - Hematology and Cell countson 07-22-2024 Monocytes/100 WBC (Bld) 0 % Low B on [facility] Lactic Acid (POC)on 07-23-19 25 Lactate [Moles/Vol] mmol/L Low 0.56-1.39 [facility] Lactate [Moles/Vol] 1.0 mmol/L Normal 0.56-1.39 [facility] Magnesiumon 07-22-2024 Magnesium [Mass/Vol] 2 mg/dL 1.6 - 2 .4 mg/dL [facility] Magnesium [Mass/Vol] 2.0 mg/dL Normal 1.6-2.4 [facility] Comment on above: Performed By: #### I OCAL, MG, CDP, QUINN, BMPX #### [employer] [address] [place], [place] [id number] [employer] Operator: Juan Bauman MD Magnesium [Mass/Vol] 2.0 mg/dL Normal 1.6-2.4 [facility] Comment on above: Performed By: #### I OCAL, MG, CDP, QUINN, BMPX #### [facility] [facility] [place] [address] [employer] Operator: Juan Bauman MD No Panel Informationon 07-22 [facility] POC Glucose Fingerstickon Glucose [Mass/Vol] 218 mg/dL High 65 - 105 mg/dL [facility] Interpretation and review of laboratory results Abnormal [facility] Phosphoruson 07-22-2024 Phosphate [Mass/Vol] 4.3 mg/dL 2.5 - 4 .5 mg/dL [facility] Phosphorus, Inorg.on Phosphorus, Inorg. 4.3 mg/dL Normal 2.5-4.5 [facility] Comment on above: Performed By: #### I OCAL, MG, CDP, QUINN, BMPX #### [facility] [address] [place], [place] [phone] [employer] Operator: Juan Bauman MD Phosphorus, Inorg. 4.1 mg/dL Normal 2.5-4.5 [facility] Comment on above: Performed By: #### I OCAL, MG, CDP, QUINN, BMPX #### [facility] [address] [place], [place] [id number] [employer] Operator: Juan Bauman MD XR CHEST PORTABLEon 07-23-19 XR CHEST PORTABLE EXAMINATION: ONE XRAY VIEW OF THE CHEST 07/22/2024 5:42 am COMPARISON: 07/21/2024, 07/20/2024 HISTORY: ORDERING SYSTEM PROVIDED HISTORY: intubated TECHNOLOGIST PROVIDED HISTORY: intubated FINDINGS: Lines and tubes: Endotracheal tube is noted with the distal tip projecting over the tracheal air column approximately 6 cm away from the khushbu. Enteric tube is noted with the distal tip projecting over the left upper quadrant at the expected region of the stomach. Left-sided central venous catheter is noted with the distal tip projecting over the superior cavoatrial junction. Lungs: Low lung volumes with bronchovascular crowding. Background of pulmonary vascular congestion. Pleura: No effusion or pneumothorax. Cardiomediastinal silhouette: Tortuosity of the thoracic aorta. Increased heart size. Bones: No acute bony findings. Soft tissues: Normal. IMPRESSION: Stable placement of lines and tubes as above. Limited exam secondary to underpenetration and patient positioning. Stable cardiomegaly. Background of similar appearing pulmonary vascular congestion. Overall exam is unchanged when compared to 07/21/2024. Interpreted by: Walter Artis DO Signed by: Walter Artis DO 07/22/24 Final result Normal [facility] Arterial Bld Gas,POCon 07-21 FIO2 40.0 Normal [facility] HCO3 (Bld) [Moles/Vol] 17.5 mmol/L Low 21.0-28.0 [facility] Mode of Delivery PRVC Normal [facility] Negative Base Excess (calc) 7.1 mmol/L High 0.0-2.0 [facility] O2 Device Adult Ventilator Normal [facility] Oxygen saturation in Blood 98.5 % High 94.0-98.0 [facility] pCO2, Arterial 31.1 mm Hg Low 35.0-48.0 [facility] pH, Arterial 7.358 Normal 7.350-7.450 [facility] pO2, Arterial 117.0 mm Hg High 83.0-108.0 [facility] Site Drawn Arterial Line Normal [facility] Basic Metab w/rfx MGon 07-21 Anion gap [Moles/Vol] 16 mmol/L Normal 9-16 [facility] Comment on above: Performed By: #### I OCAL, MG, CDP, QUINN, BMPX #### [facility] [address] [place] [address] [id number] [employer] Operator: Juan Bauman MD Calcium [Mass/Vol] 7.3 mg/dL Low 8.6-10.4 [facility] Comment on above: Performed By: #### I OCAL, MG, CDP, QUINN, BMPX #### [facility] [address] [place] [address] [employer] Operator: Juan Bauman MD Chloride [Moles/Vol] 105 mmol/L Normal 98-107 [facility] Comment on above: Performed By: #### I OCAL, MG, CDP, QUINN, BMPX #### [facility] [address] [place] [address] [employer] Operator: Juan Bauman MD CO2 [Moles/Vol] 16 mmol/L Low 20-31 [facility] Comment on above: Performed By: #### I OCAL, MG, CDP, QUINN, BMPX #### [facility] [address] [place] [address] [employer] Operator: Juan Bauman MD Creatinine [Mass/Vol] 1.8 mg/dL High 0.6-0.9 [facility] Comment on above: Performed By: #### I OCAL, MG, CDP, QUINN, BMPX #### [facility] [address] [place] [address] [employer] Operator: Juan Bauman MD GFR/1.73 sq M.predicted among non-blacks MDRD (S/P/Bld) [Vol rate/Area] 31 mL/min/{1.73_m2} Low >60 [facility] Comment on above: Result Comment: These results are not intended for [...] following therapy that affects renal tubular secretion. Performed By: #### I OCAL, MG, CDP, QUINN, BMPX #### [facility] [email or web address] [address] [place] [address] [employer] Operator: Juan Bauman MD Glucose [Mass/Vol] 187 mg/dL High 74-99 [facility] Comment on above: Performed By: #### I OCAL, MG, CDP, QUINN, BMPX #### [address] [address] [employer] Operator: Juan Bauman MD Potassium [Moles/Vol] 4.0 mmol/L Normal 3.7-5.3 [facility] Comment on above: Performed By: #### I OCAL, MG, CDP, QUINN, BMPX #### [address] [address] [employer] Operator: Juan Bauman MD Sodium [Moles/Vol] 137 mmol/L Normal 136-145 [facility] Comment on above: Performed By: #### I OCAL, MG, CDP, QUINN, BMPX #### [facility] [email or web address] [address] [place] [address] [employer] Operator: Juan Bauman MD Urea nitrogen [Mass/Vol] 46 mg/dL High 8-23 [facility] Comment on above: Performed By: #### I OCAL, MG, CDP, QUINN, BMPX #### [address] [address] [employer] Operator: Juan Bauman MD CBC with Diffon 07-21-2024 Abs. Basophil 0.00 k/uL Normal 0.0-0.2 [facility] Comment on above: Performed By: #### I OCAL, MG, CDP, QUINN, BMPX #### [place] [address] [employer] Operator: Juan Bauman MD Abs.Imm.Granulocyte 0.53 k/uL High 0.00-0.30 [facility] Comment on above: Performed By: #### I OCAL, MG, CDP, QUINN, BMPX #### [place] [address] [employer] Operator: Juan Bauman MD Abs.Neutrophil (Seg) 25.37 k/uL High 1.8-7.7 [facility] Comment on above: Performed By: #### I OCAL, MG, CDP, QUINN, BMPX #### [place] [address] [employer] Operator: Juan Bauman MD Basophils/100 WBC (Bld) 0 % Normal 0-2 [facility] Comment on above: Performed By: #### I OCAL, MG, CDP, QUINN, BMPX #### [place] [address] [employer] Operator: Juan Bauman MD Eosinophils (Bld) [#/Vol] 0.00 10*3/uL Normal 0.0-0.4 [facility] Comment on above: Performed By: #### I OCAL, MG, CDP, QUINN, BMPX #### [address] [address] [employer] Operator: Juan Bauman MD Eosinophils/100 WBC (Bld) 0 % Low 1-4 [facility] Comment on above: Performed By: #### I OCAL, MG, CDP, QUINN, BMPX #### [place] [address] [employer] Operator: Juan Bauman MD Immature granulocytes/100 WBC (Bld) 2 % High 0 [facility] Comment on above: Performed By: #### I OCAL, MG, CDP, QUINN, BMPX #### [address] [address] [employer] Operator: Juan Bauman MD Lymphocytes (Bld) [#/Vol] 0.53 10*3/uL Low 1.0-4.8 [facility] Comment on above: Performed By: #### I OCAL, MG, CDP, QUINN, BMPX #### [address] [address] [employer] Operator: Juan Bauman MD Lymphocytes/100 WBC (Bld) 2 % Low 24-44 [facility] Comment on above: Performed By: #### I OCAL, MG, CDP, QUINN, BMPX #### [address] [address] [employer] Operator: Juan Bauman MD Monocytes (Bld) [#/Vol] 0.27 10*3/uL Normal 0.1-0.8 [facility] Comment on above: Performed By: #### I OCAL, MG, CDP, QUINN, BMPX #### [address] [address] [employer] Operator: Juan Bauman MD Monocytes/100 WBC (Bld) 1 % Normal 1-7 [facility] Comment on above: Performed By: #### I OCAL, MG, CDP, QUINN, BMPX #### [address] [address] [employer] Operator: Juan Bauman MD Morphology Germán (Bld) [Interp] Normal Normal [facility] Comment on above: Performed By: #### I OCAL, MG, CDP, QUINN, BMPX #### [address] [address] [employer] Operator: Juan Bauman MD Neutrophil (Seg) 95 % High 36-66 [facility] Comment on above: Performed By: #### I OCAL, MG, CDP, QUINN, BMPX #### [facility] [email or web address] [address] [place] [address] [employer] Operator: Juan Bauman MD Erythrocyte distribution width (RBC) [Ratio] 13.1 % Normal 11.8-14.4 [facility] Comment on above: Performed By: #### I OCAL, MG, CDP, QUINN, BMPX #### [facility] [address] [place] [address] [employer] Operator: Juan Bauman MD Hematocrit (Bld) [Volume fraction] 25.4 % Low 36.3-47.1 [facility] Comment on above: Performed By: #### I OCAL, MG, CDP, QUINN, BMPX #### [facility] [email or web address] [address] [place] [address] [employer] Operator: Juan Bauman MD Hemoglobin (Bld) [Mass/Vol] 8.6 g/dL Low 11.9-15.1 [facility] Comment on above: Performed By: #### I OCAL, MG, CDP, QUINN, BMPX #### [facility] [address] [place] [address] [employer] Operator: Juan Bauman MD MCH (RBC) [Entitic mass] 28.6 pg Normal 25.2-33.5 [facility] Comment on above: Performed By: #### I OCAL, MG, CDP, QUINN, BMPX #### [facility] [address] [place] [address] [employer] Operator: Juan Bauman MD MCHC (RBC) [Mass/Vol] 33.9 g/dL Normal 28.4-34.8 [facility] Comment on above: Performed By: #### I OCAL, MG, CDP, QUINN, BMPX #### [facility] [address] [place] [address] [employer] Operator: Juan Bauman MD MCV (RBC) [Entitic vol] 84.4 fL Normal 82.6-102.9 [facility] Comment on above: Performed By: #### I OCAL, MG, CDP, QUINN, BMPX #### [address] [address] [employer] Operator: Juan Bauman MD NRBC Automated 0.1 per 100 WBC High 0.0 [facility] Comment on above: Performed By: #### I OCAL, MG, CDP, QUINN, BMPX #### [address] [address] [employer] Operator: Juan Bauman MD Platelet mean volume (Bld) [Entitic vol] 12.0 fL Normal 8.1-13.5 [facility] Comment on above: Performed By: #### I OCAL, MG, CDP, QUINN, BMPX #### [address] [address] [employer] Operator: Juan Bauman MD Platelets (Bld) [#/Vol] 163 10*3/uL Normal 138-453 [facility] Comment on above: Performed By: #### I OCAL, MG, CDP, QUINN, BMPX #### [address] [address] [employer] Operator: Juan Bauman MD RBC (Bld) [#/Vol] 3.01 10*6/uL Low 3.95-5.11 [facility] Comment on above: Performed By: #### I OCAL, MG, CDP, QUINN, BMPX #### [address] [address] [employer] Operator: Juan Bauman MD WBC (Bld) [#/Vol] 26.7 10*3/uL High 3.5-11.3 [facility] Comment on above: Performed By: #### I OCAL, MG, CDP, QUINN, BMPX #### [place] [address] [place] [id number] [employer] Operator: Juan Bauman MD CT ABDOMEN PELVIS W IV CONTR Tory 07-21-2024 CT ABDOMEN PELVIS W IV CONTRAST EXAMINATION: CT OF THE ABDOMEN AND PELVIS [...] is also contiguous with the above finding. Peritoneum/Retroperit oneum: Unremarkable vascular structures. No bulky lymphadenopathy. No [...] or colitis. 3. Additional findings, as above. Interpreted by: Allen Schaeffer MD Signed by: Allen Schaeffer MD 07/21/24 Final result Normal [facility] Calcium, Ionicon 07-21-2024 Calcium [Moles/Vol] 0.96 mmol/L Low 1.13-1.33 [facility] Comment on above: Performed By: #### I OCAL, MG, CDP, QUINN, BMPX #### [facility] [email or web address] [address] [place] [address] [employer] Operator: Juan Bauman MD Glucose (POC)on 07-21-2024 Glucose [Mass/Vol] 178 mg/dL High 74-100 [facility] Glucose,Whole Bloodon 2024 Glucose [Mass/Vol] 190 mg/dL High 65-105 [facility] Glucose [Mass/Vol] 167 mg/dL High 65-105 [facility] Glucose [Mass/Vol] 175 mg/dL High 65-105 [facility] Glucose [Mass/Vol] 181 mg/dL High 65-105 [facility] Glucose [Mass/Vol] 173 mg/dL High 65-105 [facility] Lactic Acid (POC)on 07-22-19 Lactate [Moles/Vol] 1.1 mmol/L Normal 0.56-1.39 [facility] Magnesiumon 07-21-2024 Magnesium [Mass/Vol] 1.6 mg/dL Normal 1.6-2.4 [facility] Comment on above: Performed By: #### I OCAL, MG, CDP, QUINN, BMPX #### [facility] [email or web address] [address] [place] [id number] [employer] Operator: uJan Bauman MD Phosphorus, Inorg.on 025 Phosphorus, Inorg. 4.2 mg/dL Normal 2.5-4.5 [facility] Comment on above: Performed By: #### I OCAL, MG, CDP, QUINN, BMPX #### [facility] [email or web address] [address] [place] [address] [phone] [employer] Operator: Juan Bauman MD Vancomycin Troughon 07-22-19 Vancomycin Trough 9.0 ug/mL Low 10.0-20.0 [facility] Comment on above: Performed By: #### I OCAL, MG, CDP, QUINN, BMPX #### [facility] [email or web address] [address] [place] [address] [id number] [employer] Operator: Juan Bauman MD XR CHEST PORTABLEon 07-22-19 XR CHEST PORTABLE EXAMINATION: ONE XRAY VIEW OF THE CHEST 07/21/2024 5:32 am COMPARISON: 07/20/2024 HISTORY: ORDERING SYSTEM PROVIDED HISTORY: intubated TECHNOLOGIST PROVIDED HISTORY: intubated FINDINGS: The patient is rotated. The left costophrenic angle is incompletely imaged. The lines and tubes are unchanged. No change in the jhzb-[id number] pulmonary vascular congestion. The cardiac silhouette is stable. There is no pneumothorax or right pleural effusion. IMPRESSION: 1. Limited evaluation without significant change. Interpreted by: Melo Vences MD Signed by: Melo Vences MD 07/21/24 Final result Normal [facility] Arterial Bld Gas,POCon 07-20 FIO2 50.0 Normal [facility] HCO3 (Bld) [Moles/Vol] 18.9 mmol/L Low 21.0-28.0 M [facility] Mode of Delivery PRVC Normal [facility] Negative Base Excess (calc) 8.6 mmol/L High 0.0-2.0 [facility] O2 Device Adult Ventilator Normal [facility] Oxygen saturation in Blood 99.1 % High 94.0-98.0 [facility] pCO2, Arterial 46.4 mm Hg Normal 35.0-48.0 [facility] pH, Arterial 7.217 Low 7.350-7.450 [facility] pO2, Arterial 163.8 mm Hg High 83.0-108.0 [facility] Site Drawn Arterial Line Normal [facility] FIO2 50.0 Normal [facility] HCO3 (Bld) [Moles/Vol] 19.7 mmol/L Low 21.0-28.0 M [facility] Negative Base Excess (calc) 9.1 mmol/L High 0.0-2.0 [facility] O2 Device Adult Ventilator Normal [facility] Oxygen saturation in Blood 97.5 % Normal 94.0-98.0 [facility] pCO2, Arterial 53.9 mm Hg High 35.0-48.0 [facility] pH, Arterial 7.170 Critically low 7.350-7.450 [facility] pO2, Arterial 121.6 mm Hg High 83.0-108.0 [facility] Site Drawn Arterial Line Normal [facility] FIO2 50.0 Normal [facility] HCO3 (Bld) [Moles/Vol] 19.1 mmol/L Low 21.0-28.0 M [facility] Negative Base Excess (calc) 11.2 mmol/L High 0.0-2.0 [facility] O2 Device Adult Ventilator Normal [facility] Oxygen saturation in Blood 97.3 % Normal 94.0-98.0 [facility] pCO2, Arterial 63.4 mm Hg High 35.0-48.0 [facility] pH, Arterial 7.087 Critically low 7.350-7.450 [facility] pO2, Arterial 131.2 mm Hg High 83.0-108.0 [facility] Site Drawn Arterial Line Normal [facility] HCO3 (Bld) [Moles/Vol] 16.1 mmol/L Low 21.0-28.0 M [facility] Mode of Delivery PRVC Normal [facility] Negative Base Excess (calc) 13.8 mmol/L High 0.0-2.0 [facility] O2 Device Adult Ventilator Normal [facility] Oxygen saturation in Blood 97.8 % Normal 94.0-98.0 [facility] pCO2, Arterial 55.0 mm Hg High 35.0-48.0 [facility] pH, Arterial 7.076 Critically low 7.350-7.450 [facility] pO2, Arterial 140.8 mm Hg High 83.0-108.0 [facility] Site Drawn Arterial Line Normal [facility] Anthony Test Positive Normal [facility] FIO2 100.0 Normal [facility] HCO3 (Bld) [Moles/Vol] 16.2 mmol/L Low 21.0-28.0 M [facility] Mode of Delivery PRVC Normal [facility] Negative Base Excess (calc) 15.6 mmol/L High 0.0-2.0 [facility] O2 Device Adult Ventilator Normal [facility] Oxygen saturation in Blood 99.8 % High 94.0-98.0 [facility] pCO2, Arterial 67.1 mm Hg High 35.0-48.0 [facility] pH, Arterial 6.992 Critically low 7.350-7.450 [facility] pO2, Arterial 368.3 mm Hg High 83.0-108.0 [facility] Site Drawn Left Radial Artery Normal [facility] Basic Metab w/rfx MGon 07-20 Anion gap [Moles/Vol] 15 mmol/L Normal 9-16 [facility] Comment on above: Performed By: #### I OCAL, MG, CDP, QUINN, BMPX #### [address] [address] [employer]: Juan Bauman MD Calcium [Mass/Vol] 8.2 mg/dL Low 8.6-10.4 [facility] Comment on above: Performed By: #### I OCAL, MG, CDP, QUINN, BMPX #### [facility] [email or web address] [address] [place] [address] [employer] Operator: Juan Bauman MD Chloride [Moles/Vol] 102 mmol/L Normal 98-107 [facility] Comment on above: Performed By: #### I OCAL, MG, CDP, QUINN, BMPX #### [email or web address] [address] [place] [address] [employer] Operator: Juan Bauman MD CO2 [Moles/Vol] 14 mmol/L Low 20-31 [facility] Comment on above: Performed By: #### I OCAL, MG, CDP, QUINN, BMPX #### [address] [address] [employer] Operator: Juan Bauman MD Creatinine [Mass/Vol] 2.8 mg/dL High 0.6-0.9 [facility] Comment on above: Performed By: #### I OCAL, MG, CDP, QUINN, BMPX #### [email or web address] [address] [place] [address] [employer] Operator: Juan Bauman MD GFR/1.73 sq M.predicted among non-blacks MDRD (S/P/Bld) [Vol rate/Area] 19 mL/min/{1.73_m2} Low >60 [facility] Comment on above: Result Comment: These results are not intended for [...] following therapy that affects renal tubular secretion. Performed By: #### I OCAL, MG, CDP, QUINN, BMPX #### [address] [address] [employer] Operator: Juan Bauman MD Glucose [Mass/Vol] 174 mg/dL High 74-99 [facility] Comment on above: Performed By: #### I OCAL, MG, CDP, QUINN, BMPX #### [address] [address] [employer]: Juan Bauman MD Potassium [Moles/Vol] 4.8 mmol/L Normal 3.7-5.3 [facility] Comment on above: Performed By: #### I OCAL, MG, CDP, QUINN, BMPX #### [address] [address] [employer] Operator: Juan Bauman MD Sodium [Moles/Vol] 131 mmol/L Low 136-145 [facility] Comment on above: Performed By: #### I OCAL, MG, CDP, QUINN, BMPX #### [email or web address] [address] [place] [address] [employer]: Juan Bauman MD Urea nitrogen [Mass/Vol] 57 mg/dL High 8-23 [facility] Comment on above: Performed By: #### I OCAL, MG, CDP, QUINN, BMPX #### [email or web address] [address] [place] [address] [employer]: Juan Bauman MD CBCon 07-20-2024 Erythrocyte distribution width (RBC) [Ratio] 13.2 % Normal 11.8-14.4 [facility] Comment on above: Performed By: #### I OCAL, MG, CDP, QUINN, BMPX #### [email or web address] [address] [place] [address] [employer] Operator: Juan Bauman MD Hematocrit (Bld) [Volume fraction] 27.4 % Low 36.3-47.1 [facility] Comment on above: Performed By: #### I OCAL, MG, CDP, QUINN, BMPX #### [address] [address] [employer] Operator: Jaun Bauman MD Hemoglobin (Bld) [Mass/Vol] 9.4 g/dL Low 11.9-15.1 [facility] Comment on above: Performed By: #### I OCAL, MG, CDP, QUINN, BMPX #### [place] [address] [employer]: Juan Bauman MD MCH (RBC) [Entitic mass] 29.7 pg Normal 25.2-33.5 [facility] Comment on above: Performed By: #### I OCAL, MG, CDP, QUINN, BMPX #### [place] [address] [employer]: Juan Bauman MD MCHC (RBC) [Mass/Vol] 34.3 g/dL Normal 28.4-34.8 [facility] Comment on above: Performed By: #### I OCAL, MG, CDP, QUINN, BMPX #### [place] [address] [employer]: Juan Bauman MD MCV (RBC) [Entitic vol] 86.7 fL Normal 82.6-102.9 M [facility] Comment on above: Performed By: #### I OCAL, MG, CDP, QUINN, BMPX #### [address] [address] [employer]: Juan Bauman MD NRBC Automated 0.1 per 100 WBC High 0.0 [facility] Comment on above: Performed By: #### I OCAL, MG, CDP, QUINN, BMPX #### [address] [address] [employer]: Juan Bauman MD Platelet mean volume (Bld) [Entitic vol] 11.4 fL Normal 8.1-13.5 [facility] Comment on above: Performed By: #### I OCAL, MG, CDP, QUINN, BMPX #### [address] [address] [employer]: Juan Bauman MD Platelets (Bld) [#/Vol] 234 10*3/uL Normal 138-453 [facility] Comment on above: Performed By: #### I OCAL, MG, CDP, QUINN, BMPX #### [address] [address] [employer]: Juan Bauman MD RBC (Bld) [#/Vol] 3.16 10*6/uL Low 3.95-5.11 [facility] Comment on above: Performed By: #### I OCAL, MG, CDP, QUINN, BMPX #### [address] [address] [employer]: Juan Bauman MD WBC (Bld) [#/Vol] 27.1 10*3/uL High 3.5-11.3 [facility] Comment on above: Performed By: #### I OCAL, MG, CDP, QUINN, BMPX #### [email or web address] [address] [place] [address] [employer]: Juan Bauman MD CBC with Diffon 07-20-2024 Abs. Atypical Lymphs 0.36 k/uL Normal [facility] Comment on above: Performed By: #### I OCAL, MG, CDP, QUINN, BMPX #### [email or web address] [address] [place] [address] [employer] Operator: Juan Bauman MD Abs. Basophil 0.36 k/uL High 0.0-0.2 [facility] Comment on above: Performed By: #### I OCAL, MG, CDP, QUINN, BMPX #### [address] [address] [employer] Operator: Juan Bauman MD Abs.Imm.Granulocyte 0.73 k/uL High 0.00-0.30 [facility] Comment on above: Performed By: #### I OCAL, MG, CDP, QUINN, BMPX #### [place] [address] [employer]: Juan Bauman MD Abs.Neutrophil (Seg) 32.67 k/uL High 1.8-7.7 [facility] Comment on above: Performed By: #### I OCAL, MG, CDP, QUINN, BMPX #### [place] [address] [employer]: Juan Bauman MD Atypical Lymphs 1 % Normal [facility] Comment on above: Performed By: #### I OCAL, MG, CDP, QUINN, BMPX #### [place] [address] [employer]: Juan Bamuan MD Basophils/100 WBC (Bld) 1 % Normal 0-2 [facility] Comment on above: Performed By: #### I OCAL, MG, CDP, QUINN, BMPX #### [email or web address] [address] [place] [address] [employer]: Juan Bauman MD Eosinophils (Bld) [#/Vol] 0.00 10*3/uL Normal 0.0-0.4 [facility] Comment on above: Performed By: #### I OCAL, MG, CDP, QUINN, BMPX #### [email or web address] [address] [place] [address] [employer] Operator: Juan Bauman MD Eosinophils/100 WBC (Bld) 0 % Low 1-4 [facility] Comment on above: Performed By: #### I OCAL, MG, CDP, QUINN, BMPX #### [address] [address] [employer]: Juan Bauman MD Immature granulocytes/100 WBC (Bld) 2 % High 0 [facility] Comment on above: Performed By: #### I OCAL, MG, CDP, QUINN, BMPX #### [address] [address] [employer]: Juan Bauman MD Lymphocytes (Bld) [#/Vol] 1.45 10*3/uL Normal 1.0-4.8 [facility] Comment on above: Performed By: #### I OCAL, MG, CDP, QUINN, BMPX #### [place] [address] [employer]: Juan Bauman MD Lymphocytes/100 WBC (Bld) 4 % Low 24-44 [facility] Comment on above: Performed By: #### I OCAL, MG, CDP, QUINN, BMPX #### [address] [address] [employer] Operator: Juan Bauman MD Monocytes (Bld) [#/Vol] 0.73 10*3/uL Normal 0.1-0.8 [facility] Comment on above: Performed By: #### I OCAL, MG, CDP, QUINN, BMPX #### [address] [address] [employer] Operator: Juan Bauman MD Monocytes/100 WBC (Bld) 2 % Normal 1-7 [facility] Comment on above: Performed By: #### I OCAL, MG, CDP, QUINN, BMPX #### [email or web address] [address] [place] [address] [employer] Operator: Juan Bauman MD Morphology Germán (Bld) [Interp] Normal Normal [facility] Comment on above: Performed By: #### I OCAL, MG, CDP, QUINN, BMPX #### [address] [address] [employer] Operator: Juan Bauman MD Neutrophil (Seg) 90 % High 36-66 [facility] Comment on above: Performed By: #### I OCAL, MG, CDP, QUINN, BMPX #### [address] [address] [employer] Operator: Juan Bauman MD NRBC Automated 0.0 per 100 WBC Normal 0.0 [facility] Comment on above: Performed By: #### I OCAL, MG, CDP, QUINN, BMPX #### [address] [address] [employer]: Juan Bauman MD Platelet mean volume (Bld) [Entitic vol] 11.4 fL Normal 8.1-13.5 [facility] Comment on above: Performed By: #### I OCAL, MG, CDP, QUINN, BMPX #### [address] [address] [employer]: Juan Bauman MD Platelets (Bld) [#/Vol] 264 10*3/uL Normal 138-453 [facility] Comment on above: Performed By: #### I OCAL, MG, CDP, QUINN, BMPX #### [email or web address] [address] [place] [address] [employer]: Juan Bauman MD WBC (Bld) [#/Vol] 36.3 10*3/uL Critically high 3.5-11.3 [facility] Comment on above: Performed By: #### I OCAL, MG, CDP, QUINN, BMPX #### [email or web address] [address] [place] [id number] [employer] Operator: Juan Bauman MD Erythrocyte distribution width (RBC) [Ratio] 13.0 % Normal 11.8-14.4 [facility] Comment on above: Performed By: #### I OCAL, MG, CDP, QUINN, BMPX #### [address] [id number] [employer]: Juan Bauman MD Hematocrit (Bld) [Volume fraction] 32.8 % Low 36.3-47.1 [facility] Comment on above: Performed By: #### I OCAL, MG, CDP, QUINN, BMPX #### [address] [address] [employer] Operator: Juan Bauman MD Hemoglobin (Bld) [Mass/Vol] 10.8 g/dL Low 11.9-15.1 [facility] Comment on above: Performed By: #### I OCAL, MG, CDP, QUINN, BMPX #### [address] [address] [employer] Operator: Juan Bauman MD MCH (RBC) [Entitic mass] 29.7 pg Normal 25.2-33.5 [facility] Comment on above: Performed By: #### I OCAL, MG, CDP, QUINN, BMPX #### [address] [address] [employer] Operator: Juan Bauman MD MCHC (RBC) [Mass/Vol] 32.9 g/dL Normal 28.4-34.8 [facility] Comment on above: Performed By: #### I OCAL, MG, CDP, QUINN, BMPX #### [address] [address] [employer] Operator: Juan Bauman MD MCV (RBC) [Entitic vol] 90.1 fL Normal 82.6-102.9 [facility] Comment on above: Performed By: #### I OCAL, MG, CDP, QUINN, BMPX #### [email or web address] [address] [place] [address] [employer] Operator: Juan Bauman MD RBC (Bld) [#/Vol] 3.64 10*6/uL Low 3.95-5.11 [facility] Comment on above: Performed By: #### I OCAL, MG, CDP, QUINN, BMPX #### [email or web address] [address] [place] [address] [employer] Operator: Juan Bauman MD Calcium, Ionicon 07-20-2024 Calcium [Moles/Vol] 1.06 mmol/L Low 1.13-1.33 [facility] Comment on above: Performed By: #### I OCAL, MG, CDP, QUINN, BMPX #### [email or web address] [address] [place] [address] [employer] Operator: Juan Bauman MD Comp Metabolic Profon 2024 Albumin [Mass/Vol] 2.3 g/dL Low 3.5-5.2 [facility] Comment on above: Performed By: #### C DP, PRCAL, LACTIC, BMP, CRP, SED #### [email or web address] [address] [place] [address] [employer] Operator: Juan Bauman MD Albumin/Glob Ratio 0.7 Low 1.0-2.5 [facility] Comment on above: Performed By: #### C DP, PRCAL, LACTIC, BMP, CRP, SED #### [email or web address] [address] [place] [address] [employer] Operator: Juan Bauman MD Alkaline Phos 339 U/L High 35-104 [facility] Comment on above: Performed By: #### C DP, PRCAL, LACTIC, BMP, CRP, SED #### [email or web address] [address] [place] [address] [employer] Operator: Juan Bauman MD ALT [Catalytic activity/Vol] 28 U/L Normal 10-35 [facility] Comment on above: Performed By: #### C DP, PRCAL, LACTIC, BMP, CRP, SED #### [address] [address] [employer] Operator: Juan Bauman MD Anion gap [Moles/Vol] 16 mmol/L Normal 9-16 [facility] Comment on above: Performed By: #### C DP, PRCAL, LACTIC, BMP, CRP, SED #### [address] [address] [employer] Operator: Juan Bauman MD AST [Catalytic activity/Vol] 45 U/L High 10-35 [facility] Comment on above: Result Comment: Spec imen hemolysis has exceeded the interference as defined by Sinan. Value may be falsely increased. Suggest recollection if clinically indicated. Performed By: #### C DP, PRCAL, LACTIC, BMP, CRP, SED #### [email or web address] [address] [place] [address] [employer]: Juan Bauman MD Bilirubin [Mass/Vol] 0.4 mg/dL Normal 0.0-1.2 [facility] Comment on above: Performed By: #### C DP, PRCAL, LACTIC, BMP, CRP, SED #### [email or web address] [address] [place] [address] [employer] Operator: Juan Bauman MD Calcium [Mass/Vol] 7.4 mg/dL Low 8.6-10.4 [facility] Comment on above: Performed By: #### C DP, PRCAL, LACTIC, BMP, CRP, SED #### [email or web address] [address] [place] [address] [employer] Operator: Juan Bauman MD Chloride [Moles/Vol] 103 mmol/L Normal 98-107 [facility] Comment on above: Performed By: #### C DP, PRCAL, LACTIC, BMP, CRP, SED #### [facility] [address] [place] [address] [employer] Operator: Juan Bauman MD CO2 [Moles/Vol] 17 mmol/L Low 20-31 [facility] Comment on above: Performed By: #### C DP, PRCAL, LACTIC, BMP, CRP, SED #### [address] [address] [employer] Operator: Juan Bauman MD Creatinine [Mass/Vol] 2.1 mg/dL High 0.6-0.9 [facility] Comment on above: Performed By: #### C DP, PRCAL, LACTIC, BMP, CRP, SED #### [address] [address] [employer] Operator: Juan Bauman MD GFR/1.73 sq M.predicted among non-blacks MDRD (S/P/Bld) [Vol rate/Area] 26 mL/min/{1.73_m2} Low >60 [facility] Comment on above: Result Comment: These results are not intended for [...] following therapy that affects renal tubular secretion. Performed By: #### C DP, PRCAL, LACTIC, BMP, CRP, SED #### [address] [address] [employer]: Juan Bauman MD Glucose [Mass/Vol] 148 mg/dL High 74-99 [facility] Comment on above: Performed By: #### C DP, PRCAL, LACTIC, BMP, CRP, SED #### [address] [address] [employer] Operator: Juan Bauman MD Potassium [Moles/Vol] 4.5 mmol/L Normal 3.7-5.3 [facility] Comment on above: Result Comment: Spec imen hemolysis has exceeded the interference as defined by Sinan. Value may be falsely increased. Suggest recollection if clinically indicated. Performed By: #### C DP, PRCAL, LACTIC, BMP, CRP, SED #### [email or web address] [address] [place] [address] [employer]: Juan Bauman MD Protein [Mass/Vol] 5.5 g/dL Low 6.6-8.7 [facility] Comment on above: Performed By: #### C DP, PRCAL, LACTIC, BMP, CRP, SED #### [email or web address] [address] [place] [address] [employer] Operator: Juan Bauman MD Sodium [Moles/Vol] 136 mmol/L Normal 136-145 [facility] Comment on above: Performed By: #### C DP, PRCAL, LACTIC, BMP, CRP, SED #### [email or web address] [address] [place] [address] [employer] Operator: Juan Bauman MD Urea nitrogen [Mass/Vol] 50 mg/dL High 8-23 [facility] Comment on above: Performed By: #### C DP, PRCAL, LACTIC, BMP, CRP, SED #### [address] [address] [employer] Operator: Juan Bauman MD Creatine Kinaseon 07-20-2024 CK [Catalytic activity/Vol] 353 U/L High 26-192 [facility] Comment on above: Performed By: #### I OCAL, MG, CDP, QUINN, BMPX #### [address] [address] [employer] Operator: Juan Bauman MD Glucose (POC)on 07-20-2024 Glucose [Mass/Vol] 147 mg/dL High 74-100 [facility] Glucose [Mass/Vol] 176 mg/dL High 74-100 [facility] Glucose [Mass/Vol] 167 mg/dL High 74-100 [facility] Glucose,Whole Bloodon 2024 Glucose [Mass/Vol] 153 mg/dL High 65-105 [facility] Glucose [Mass/Vol] 144 mg/dL High 65-105 [facility] Glucose [Mass/Vol] 156 mg/dL High 65-105 [facility] Glucose [Mass/Vol] 143 mg/dL High 65-105 [facility] Hgb/Hcton 07-20-2024 Hematocrit (Bld) [Volume fraction] 31.3 % Low 36.3-47.1 [facility] Comment on above: Performed By: #### H H ####[email or web address] [place] [address] Lab Director: Juan Bauman MD Hemoglobin (Bld) [Mass/Vol] 10.8 g/dL Low 11.9-15.1 [facility] Comment on above: Performed By: #### H H ####[email or web address] [place] [address] Lab Director: Juan Bauman MD Lactic Acidon 07-20-2024 Lactic Acid,Whole Bl 1.8 mmol/L Normal 0.7-2.1 [facility] Comment on above: Performed By: #### I OCAL, MG, CDP, QUINN, BMPX #### [employer] [address] [place], [place] [id number] [employer] Operator: Juan Bauman MD Lactic Acid (POC)on 07-21-19 25 Lactate [Moles/Vol] 0.7 mmol/L Normal 0.56-1.39 [facility] Lactate [Moles/Vol] 1.1 mmol/L Normal 0.56-1.39 [facility] Lactate [Moles/Vol] 1.1 mmol/L Normal 0.56-1.39 [facility] Lactate [Moles/Vol] 0.9 mmol/L Normal 0.56-1.39 [facility] Lactate [Moles/Vol] mmol/L Low 0.56-1.39 [facility] Magnesiumon 07-20-2024 Magnesium [Mass/Vol] 1.7 mg/dL Normal 1.6-2.4 [facility] Comment on above: Performed By: #### I OCAL, MG, CDP, QUINN, BMPX #### [facility] [email or web address] [facility] [place], [place] [id number] [employer] Making Machine Operator: Juan Bauman MD Myoglobinon 07-20-2024 Myoglobin [Mass/Vol] 549 ng/mL High 25-58 [facility] Comment on above: Performed By: #### I OCAL, MG, CDP, QUINN, BMPX #### [facility] [email or web address] [address] [place] [address] [employer] Making Machine Operator: Juan Bauman MD Notification Pnl,POCon 07-20 Action Notifyphysician Normal [facility] Date 506:39:00 Normal [facility] Notify Juan C Normal [facility] Read Back Yes Normal [facility] Action Notifyphysician Normal [facility] Date 502:25:00 Normal [facility] Notify Juan C Normal [facility] Read Back Yes Normal [facility] Phosphorus, Inorg.on 025 Phosphorus, Inorg. 7.0 mg/dL High 2.5-4.5 [facility] Comment on above: Performed By: #### I OCAL, MG, CDP, QUINN, BMPX #### [facility] [email or web address] [address] [place] [address] [phone] [employer] Making Machine Operator: Juan Bauman MD Triglycerideson 07-20-2024 Triglyceride [Mass/Vol] 220 mg/dL High <150 M [facility] Comment on above: Result Comment: Triglyceride Guidelines: <150 Desirable 150-199 Borderline 200-499 High >499 Very high Based on AHA Guidelines for fasting triglyceride, November 2011. Performed By: #### I OCAL, MG, CDP, QUINN, BMPX #### [employer] [address] [place] [id number] [employer] Making Machine Operator: Juan Bauman MD Troponinon 07-20-2024 Troponin, High Sens 29 ng/L High 0-14 [facility] Comment on above: Result Comment: High Sensitivity Troponin values cannot be compared with other Troponin methodologies. Performed By: #### I OCAL, MG, CDP, QIUNN, BMPX #### [facility] [address] [place] [address] [employer] Machine Operator: Juan Bauman MD Type + Screenon 07-20-2024 Type + Screen Sample Expiration 07/22/2024,2359 Arm Band Number [id number] ABO/Rh(D) A POSITIVE Antibody Screen NEGATIVE Unit Number [id number] Blood Component Type Leukocyte Reduced Red Cell Unit Division 00 Status of Unit TRANSFUSED Transfusion Status OK TO TRANSFUSE Crossmatch Result COMPATIBLE Normal [facility] Comment on above: Performed By: #### I OCAL, MG, CDP, QUINN, BMPX #### [facility] [address] [place] [address] [employer] Machine Operator: Juan Bauman MD Urinalysis, Routineon 2024 Bilirubin, SemiQt,Ur Negative Normal NEG [facility] Comment on above: Performed By: #### U MICAO, UA ####[facility] [address] [place], [place] [id number] Lab Director: Juan Bauman MD Blood, Urine MODERATE Abnormal NEG [facility] Comment on above: Performed By: #### U MICAO, UA ####[facility] [address] [place] [address] [phone] Lab Director: Juan Bauman MD Clarity (U) Turbid Abnormal CLEAR [facility] Comment on above: Performed By: #### U MICAO, UA ####[facility] [address] [place], [place] [phone] Director: Juan Bauman MD Color (U) Dark Yellow Abnormal YEL [facility] Comment on above: Performed By: #### U MICAO, UA ####[facility] [address] [place], [place] [phone] Director: Juan Bauman MD Glucose Ql (U) TRACE Abnormal NEG [facility] Comment on above: Performed By: #### U MICAO, UA ####[facility] [address] [place], [place] [phone] Director: Juan Bauman MD Ketones Ql (U) Negative Normal NEG [facility] Comment on above: Performed By: #### U JIMMYO, UA ####[facility] [address] [place], [place] [phone] Director: Juan Bauman MD Leukocyte esterase Test strip Ql (U) Negative Normal NEG [facility] Comment on above: Performed By: #### U MICAO, UA ####[facility] [address] [place], [place] [phone] Director: Juan Bauman MD Nitrite,Ur Negative Normal NEG [facility] Comment on above: Performed By: #### U MICAO, UA ####[facility] [address] [place], [place] [phone] Director: Juan Bauman MD PH,Ur 5.0 Normal 5.0-8.0 [facility] Comment on above: Performed By: #### U MICAO, UA ####[facility] [address] [place] [address] Lab Director: Juan Bauman MD Protein Ql (U) 2+ mg/dL Abnormal NEG [facility] Comment on above: Performed By: #### U MICAO, UA ####[facility] [address] [place] [address] Lab Director: Juan Bauman MD Spec. [place],Ur 1.019 Normal 1.005-1.030 [facility] Comment on above: Performed By: #### U MICAO, UA ####[facility] [address] [place], [place] [address])[phone] Director: Juan Bauman MD Urobilinogen,Ur Normal Normal 0.0-1.0 [facility] Comment on above: Performed By: #### U MICAO, UA ####[facility] [address] [place], [place] [phone] Director: Juan Bauman MD Urinalysis,Microon 5 Bacteria MODERATE Abnormal NONE [facility] Comment on above: Performed By: #### U MICAO, UA ####[facility] [address] [place], [place] [phone] Director: Juan Bauman MD Casts 0 TO 2 Normal 0-2 [facility] Comment on above: Result Comment: HYAL INE Performed By: #### U MICAO, UA ####[facility] [address] [place], [place] [phone] Director: Juan Bauman MD Epithelial cells LM Ql (Urine sed) 20 TO 50 Normal 0-5 [facility] Comment on above: Performed By: #### U MICAO, UA ####[facility] [address] [place], [place] [phone] Director: Juan Bauman MD Urine RBC's 0 TO 2 Normal 0-2 [facility] Comment on above: Performed By: #### U MICAO, UA ####[facility] [address] [place] [address] Lab Director: Juan Bauman MD Urine WBC's 10 TO 20 Normal 0-5 [facility] Comment on above: Performed By: #### U MICAO, UA ####[facility] [address] [place], [place] [phone] Lab Director: Juan Bauman MD Vancomycin,Randomon 07-21-19 Vancomycin 16.8 ug/mL Normal 5.0-40.0 [facility] Comment on above: Result Comment: High er trough serum vancomycin concentrations of 15-20 ug/mL are recommended for complicated infections such as bacteremia, endocarditis, osteomyelitis, meningitis, and hospital acquired pneumonia. Performed By: #### I OCAL, MG, CDP, QUINN, BMPX #### [facility] [email or web address] [address] [place] [address] [employer] Machine Operator: Juan Bauman MD XR ABDOMEN FOR NG/OG/NE TUBE PLACEMENTon 07-20-2024 XR ABDOMEN FOR NG/OG/NE TUBE PLACEMENT EXAMINATION: ONE SUPINE XRAY VIEW(S) OF THE ABDOMEN 07/20/2024 12:45 am COMPARISON: None. HISTORY: ORDERING SYSTEM PROVIDED HISTORY: Confirmation of course of NG/OG/NE tube and location of tip of tube TECHNOLOGIST PROVIDED HISTORY: Confirmation of course of NG/OG/NE tube and location of tip of tube Portable?->Yes FINDINGS: Nasogastric tube tip is located within the body the stomach. The proximal side port is within the fundus. The visualized bowel gas pattern is unremarkable. IMPRESSION: Nasogastric tube tip is located within the body the stomach. Interpreted by: Nathaniel Venegas MD Signed by: Nathaniel Venegas MD 07/20/24 Final result Normal [facility] XR CHEST PORTABLEon 07-21-19 XR CHEST PORTABLE EXAMINATION: ONE XRAY VIEW OF THE CHEST 07/20/2024 11:20 am COMPARISON: 07/20/2024 HISTORY: ORDERING SYSTEM PROVIDED HISTORY: Eval IJ placement TECHNOLOGIST PROVIDED HISTORY: Eval IJ placement FINDINGS: Cardiomediastinal silhouette is stable. Left central venous catheter tip projects at the low SVC. Similar position of other devices. Similar pulmonary vascular congestion. No pleural effusion or pneumothorax. No gross bony abnormality. IMPRESSION: Left central venous catheter tip projects at the low SVC. Otherwise stable chest. Interpreted by: Blue Reyes MD Signed by: Blue Reyes MD 07/20/24 Final result Normal [facility] XR CHEST PORTABLE EXAMINATION: ONE XRAY VIEW OF THE CHEST 07/20/2024 5:06 am COMPARISON: Chest radiograph performed 07/20/2024. HISTORY: ORDERING SYSTEM PROVIDED HISTORY: intubated TECHNOLOGIST PROVIDED HISTORY: intubated FINDINGS: There are scattered infiltrates. There is no pneumothorax. The heart is prominent. The upper abdomen unremarkable. The extrathoracic soft tissues are unremarkable. There is an endotracheal tube with tip in the midtrachea. There is a gastric tube and the tip is not well visualized. IMPRESSION: Scattered pulmonary infiltrates. Support tubes as described above. Interpreted by: Tabitha Fuentes MD Signed by: Tabitha Fuentes MD 07/20/24 Final result Normal [facility] XR CHEST PORTABLE EXAMINATION: ONE XRAY VIEW OF THE CHEST 07/20/2024 12:45 am COMPARISON: 07/19/2024 HISTORY: ORDERING SYSTEM PROVIDED HISTORY: post-op TECHNOLOGIST PROVIDED HISTORY: post-op FINDINGS: Pulmonary vascular congestion is identified. Endotracheal tube is located 5 cm above the khushbu. Nasogastric tube traverses the diaphragm. No pneumothorax seen. No acute osseous abnormality is identified. IMPRESSION: 1. Pulmonary vascular congestion. 2. Endotracheal tube located 5 cm above the khushbu. Interpreted by: Nathaniel Venegas MD Signed by: Nathaniel Venegas MD 07/20/24 Final result Normal [facility] Basic Metabolic Profon 07-19 Anion gap [Moles/Vol] 20 mmol/L High 9-16 [facility] Comment on above: Performed By: #### I OCAL, MG, CDP, QUINN, BMPX #### [facility] [address] [place], [place] [phone] [employer] Machine Operator: Juan Bauman MD Calcium [Mass/Vol] 8.5 mg/dL Low 8.6-10.4 [facility] Comment on above: Performed By: #### I OCAL, MG, CDP, QUINN, BMPX #### [facility] [address] [place] [address] [employer] Machine Operator: Juan Bauman MD Chloride [Moles/Vol] 97 mmol/L Low 98-107 [facility] Comment on above: Performed By: #### I OCAL, MG, CDP, QUINN, BMPX #### [facility] [address] [place] [address] [employer] Machine Operator: Juan Bauman MD CO2 [Moles/Vol] 13 mmol/L Low 20-31 [facility] Comment on above: Performed By: #### I OCAL, MG, CDP, QUINN, BMPX #### [facility] [address] [place] [address] [employer] Machine Operator: Juan Bauman MD Creatinine [Mass/Vol] 2.9 mg/dL High 0.6-0.9 [facility] Comment on above: Performed By: #### I OCAL, MG, CDP, QUINN, BMPX #### [facility] [address] [place] [address] [employer] Machine Operator: Juan Bauman MD GFR/1.73 sq M.predicted among non-blacks MDRD (S/P/Bld) [Vol rate/Area] 18 mL/min/{1.73_m2} Low >60 [facility] Comment on above: Result Comment: These results are not intended for [...] following therapy that affects renal tubular secretion. Performed By: #### I OCAL, MG, CDP, QUINN, BMPX #### [facility] [address] [place] [address] [employer] Machine Operator: Juan Bauman MD Glucose [Mass/Vol] 207 mg/dL High 74-99 [facility] Comment on above: Performed By: #### I OCAL, MG, CDP, QUINN, BMPX #### [facility] [email or web address] [address] [place] [address] [employer] Machine Operator: Juan Bauman MD Potassium [Moles/Vol] 4.3 mmol/L Normal 3.7-5.3 [facility] Comment on above: Performed By: #### I OCAL, MG, CDP, QUINN, BMPX #### [facility] [email or web address] [address] [place] [address] [employer] Machine Operator: Juan Bauman MD Sodium [Moles/Vol] 130 mmol/L Low 136-145 [facility] Comment on above: Performed By: #### I OCAL, MG, CDP, QUINN, BMPX #### [facility] [email or web address] [address] [place] [address] [employer] Machine Operator: Juan Bauman MD Urea nitrogen [Mass/Vol] 56 mg/dL High 8-23 [facility] Comment on above: Performed By: #### I OCAL, MG, CDP, QUINN, BMPX #### [address] [address] [employer] Machine Operator: Juan Bauman MD C-Reactive Proteinon 025 CRP [Mass/Vol] 534.0 mg/L High 0.0-5.0 [facility] Comment on above: Performed By: #### I OCAL, MG, CDP, QUINN, BMPX #### [facility] [email or web address] [address] [place] [address] [employer] Machine Operator: Juan Bauman MD CBC with Diffon 07-19-2024 Abs. Basophil 0.00 k/uL Normal 0.0-0.2 [facility] Comment on above: Performed By: #### I OCAL, MG, CDP, QUINN, BMPX #### [facility] [email or web address] [address] [place] [address] [employer] Machine Operator: Juan Bauman MD Abs.Imm.Granulocyte 0.00 k/uL Normal 0.00-0.30 [facility] Comment on above: Performed By: #### I OCAL, MG, CDP, QUINN, BMPX #### [address] [address] [employer] Machine Operator: Juan Bauman MD Abs.Neutrophil (Seg) 24.84 k/uL High 1.8-7.7 [facility] Comment on above: Performed By: #### I OCAL, MG, CDP, QUINN, BMPX #### [place] [address] [employer] Machine Operator: Juan Bauman MD Basophils/100 WBC (Bld) 0 % Normal 0-2 [facility] Comment on above: Performed By: #### I OCAL, MG, CDP, QUINN, BMPX #### [place] [address] [employer] Machine Operator: Juan Bauman MD Eosinophils (Bld) [#/Vol] 0.00 10*3/uL Normal 0.0-0.4 [facility] Comment on above: Performed By: #### I OCAL, MG, CDP, QUINN, BMPX #### [address] [address] [employer] Machine Operator: Juan Bauman MD Eosinophils/100 WBC (Bld) 0 % Low 1-4 [facility] Comment on above: Performed By: #### I OCAL, MG, CDP, QUINN, BMPX #### [facility] [email or web address] [address] [place] [address] [employer] Machine Operator: Juan Bauman MD Immature granulocytes/100 WBC (Bld) 0 % Normal 0 [facility] Comment on above: Performed By: #### I OCAL, MG, CDP, QUINN, BMPX #### [facility] [email or web address] [address] [place] [address] [employer] Machine Operator: Juan Bauman MD Lymphocytes (Bld) [#/Vol] 1.64 10*3/uL Normal 1.0-4.8 [facility] Comment on above: Performed By: #### I OCAL, MG, CDP, QUINN, BMPX #### [address] [address] [employer] Machine Operator: Juan Bauman MD Lymphocytes/100 WBC (Bld) 6 % Low 24-44 [facility] Comment on above: Performed By: #### I OCAL, MG, CDP, QUINN, BMPX #### [address] [address] [employer] Operator: Juan Bauman MD Monocytes (Bld) [#/Vol] 0.82 10*3/uL High 0.1-0.8 [facility] Comment on above: Performed By: #### I OCAL, MG, CDP, QUINN, BMPX #### [address] [address] [employer] Machine Operator: Juan Bauman MD Monocytes/100 WBC (Bld) 3 % Normal 1-7 M [facility] Comment on above: Performed By: #### I OCAL, MG, CDP, QUINN, BMPX #### [address] [address] [employer] Machine Operator: Juan Bauman MD Morphology Germán (Bld) [Interp] Normal Normal [facility] Comment on above: Performed By: #### I OCAL, MG, CDP, QUINN, BMPX #### [address] [address] [employer] Machine Operator: Juan Bauman MD Neutrophil (Seg) 91 % High 36-66 [facility] Comment on above: Performed By: #### I OCAL, MG, CDP, QUINN, BMPX #### [address] [phone] [employer] Machine Operator: Juan Bauman MD NRBC Automated 0.0 per 100 WBC Normal 0.0 [facility] Comment on above: Performed By: #### I OCAL, MG, CDP, QUINN, BMPX #### [address] [phone] [employer] Machine Operator: Juan Bauman MD WBC (Bld) [#/Vol] 27.3 10*3/uL High 3.5-11.3 [facility] Comment on above: Performed By: #### I OCAL, MG, CDP, QUINN, BMPX #### [place] [address] [employer] Machine Operator: Juan Bauman MD Erythrocyte distribution width (RBC) [Ratio] 12.5 % Normal 11.8-14.4 [facility] Comment on above: Performed By: #### I OCAL, MG, CDP, QUINN, BMPX #### [facility] [email or web address] [address] [place] [address] [employer] Machine Operator: Juan Bauman MD Hematocrit (Bld) [Volume fraction] 37.2 % Normal 36.3-47.1 [facility] Comment on above: Performed By: #### I OCAL, MG, CDP, QUINN, BMPX #### [address] [address] [employer] Machine Operator: Juan Bauman MD Hemoglobin (Bld) [Mass/Vol] 12.5 g/dL Normal 11.9-15.1 [facility] Comment on above: Performed By: #### I OCAL, MG, CDP, QUINN, BMPX #### [facility] [email or web address] [address] [place] [address] [employer] Machine Operator: Juan Bauman MD MCH (RBC) [Entitic mass] 29.5 pg Normal 25.2-33.5 [facility] Comment on above: Performed By: #### I OCAL, MG, CDP, QUINN, BMPX #### [address] [address] [employer] Machine Operator: Juan Bauman MD MCHC (RBC) [Mass/Vol] 33.6 g/dL Normal 28.4-34.8 [facility] Comment on above: Performed By: #### I OCAL, MG, CDP, QUINN, BMPX #### [address] [address] [employer] Machine Operator: Juan Bauman MD MCV (RBC) [Entitic vol] 87.7 fL Normal 82.6-102.9 M [facility] Comment on above: Performed By: #### I OCAL, MG, CDP, QUINN, BMPX #### [address] [address] [employer] Machine Operator: Juan Bauman MD Platelet mean volume (Bld) [Entitic vol] 10.5 fL Normal 8.1-13.5 [facility] Comment on above: Performed By: #### I OCAL, MG, CDP, QUINN, BMPX #### [address] [address] [employer] Machine Operator: Juan Bauman MD Platelets (Bld) [#/Vol] 289 10*3/uL Normal 138-453 [facility] Comment on above: Performed By: #### I OCAL, MG, CDP, QUINN, BMPX #### [address] [address] [employer] Machine Operator: Juan Bauman MD RBC (Bld) [#/Vol] 4.24 10*6/uL Normal 3.95-5.11 [facility] Comment on above: Performed By: #### I OCAL, MG, CDP, QUINN, BMPX #### [address] [address] [employer] Machine Operator: Juan Bauman MD Lactic Acidon 07-19-2024 Lactic Acid,Whole Bl 2.2 mmol/L High 0.7-2.1 [facility] Comment on above: Performed By: #### C DP, PRCAL, LACTIC, BMP, CRP, SED #### [facility] [address] [place] [address] [id number] [employer] Machine Operator: Juan Bauman MD PTon 07-19-2024 INR Coag (PPP) [Relative time] 1.3 {INR} Normal [facility] Comment on above: Result Comment: Therapeutic Range: Moderate Anticoagulant Intensity: INR = 2.0-3.0 High Anticoagulant Intensity: INR = 2.5-3.5 Performed By: #### I OCAL, MG, CDP, QUINN, BMPX #### [facility] [address] [place] [address] [phone] [employer] Machine Operator: Juan Bauman MD PT Coag (PPP) [Time] 16.8 s High 11.7-14.9 [facility] Comment on above: Performed By: #### I OCAL, MG, CDP, QUINN, BMPX #### [facility] [address] [place] [address] [phone] [employer] Machine Operator: Juan Bauman MD Procalcitoninon 07-19-2024 Procalcitonin 2.42 ng/mL High 0.00-0.09 [facility] Comment on above: Result Comment: Suspected Sepsis: <0.50 ng/mL Low likelihood of sepsis. 0.50-2.00 ng/mL Increased likelihood of sepsis. Antibiotics encouraged. >2.00 ng/mL High risk of sepsis/shock. Antibiotics strongly encouraged. Suspected Lower Resp Tract Infections: <0.24 ng/mL Low likelihood of bacterial infection. >0.24 ng/mL Increased likelihood of bacterial infection. Antibiotics encouraged. With successful antibiotic therapy, PCT levels should decrease rapidly. (Half-life of 24 to 36 hours.) Procalcitonin values from samples collected within the first 6 hours of systemic infection may still be low. Retesting may be indicated. Values from day 1 and day 4 can be entered into the Change in Procalcitonin Calculator ([email or web address]-vlz-[email or web address]) to determine the patient's Mortality Risk Prognosis In healthy neonates, plasma Procalcitonin (PCT) concentrations increase gradually after , reaching peak values at about 24 hours of age then decrease to normal values below 0.5 ng/mL by 48-72 hours of age. Performed By: #### I OCAL, MG, CDP, QUINN, BMPX #### [facility] [place], [place] [phone] [employer] Machine Operator: Juan Bauman MD Sedimentation Rateon 025 Sedimentation Rate >130 High 0-30 [facility] Comment on above: Performed By: #### C DP, PRCAL, LACTIC, BMP, CRP, SED #### [email or web address] [facility] [place] [address] [employer] Machine Operator: Juan Bauman MD Urine Cultureon 07-19-2024 Bacteria identified Cx Nom (U) No Growth 2 Days PERFORMED BY: [place] [address] PATHOLOGIST DIRECTOR OF PULMONARY UNIT CLARE FUENTES M.D. Normal [facility] Comment on above: Performed By: #### C UU #### [address] Calcium [Mass/volume] in Ser um or PlasmaOrdered By: NON STAFF on 10-22-2022 Calcium [Mass/Vol] 8.8 mg/dL 8.6-10.3 [facility] Carbon dioxide, total [Moles /volume] in Serum or PlasmaOrdered By: NON STAFF on 10-22-2022 CO2 [Moles/Vol] 22.5 mmol/L 21.0-31.0 [facility] Chloride [Moles/volume] in S juliann or PlasmaOrdered By: NON STAFF on 10-22-2022 Chloride [Moles/Vol] 105 mmol/L 98-107 [place] Creatinine [Mass/volume] in Serum or PlasmaOrdered By: NON STAFF on 10-22-2022 Creatinine [Mass/Vol] 1.09 mg/dL 0.60-1.20 [facility] Glucose [Mass/volume] in Ser um or PlasmaOrdered By: NON STAFF on 10-22-2022 Glucose [Mass/Vol] 188 mg/dL 70-100 [facility] Comment on above: ADA recommended refe rence rangeRandom Glucose Reference Range is dependent on time and content of last meal. Glucose of more than 200 mg/dL in a nonstressed, ambulatory subject supports the diagnosis of Diabetes Mellitus. Magnesium [Mass/volume] in S juliann or PlasmaOrdered By: NON STAFF on 10-22-2022 Magnesium [Mass/Vol] 1.5 mg/dL 1.9-2.7 [place] No Panel InformationOrdered By: NON STAFF on 10-22-2022 Estimated GFR (CKD-EPI) 58.159 mL/Min [facility] Creatinine Clearance (Chem N/A [facility] Potassium [Moles/volume] in Serum or PlasmaOrdered By: NON STAFF on 10-22-2022 Potassium [Moles/Vol] 5.1 mmol/L 3.5-5.1 [facility] Serum or plasma anion gap de terminationOrdered By: NON STAFF on 10-22-2022 Anion gap [Moles/Vol] 14.6 mmol/L 6.0-15.0 [facility] Sodium [Moles/volume] in Ser um or PlasmaOrdered By: NON STAFF on 10-22-2022 Sodium [Moles/Vol] 137 mmol/L 136-145 [facility] Urea nitrogen [Mass/volume] in Serum or PlasmaOrdered By: NON STAFF on 10-22-2022 Urea nitrogen [Mass/Vol] 16 mg/dL 7-25 [facility] Basic Metabolic Panel w/ Ref esa to MGon 09-20-2022 Anion gap [Moles/Vol] 15 mmol/L 9 - 17 mmol/L [facility] [employer] Calcium [Mass/Vol] 8.7 mg/dL 8.6 - 10. 4 mg/dL [facility] [employer] Chloride [Moles/Vol] 107 mmol/L 98 - 10 7 mmol/L [employer] CO2 [Moles/Vol] 22 mmol/L 20 - 31 mmol/L [facility] Creatinine [Mass/Vol] 0.8 mg/dL 0.5 - 0.9 mg/dL [facility] GFR/1.73 sq M.predicted MDRD (S/P/Bld) [Vol rate/Area] - PINF [facility] Glucose [Mass/Vol] 130 mg/dL High 70 - 99 mg/dL [facility] Interpretation and review of laboratory results Abnormal [facility] Potassium [Moles/Vol] 3.9 mmol/L 3.7 - 5.3 mmol/L [facility] Sodium [Moles/Vol] 144 mmol/L 135 - 144 mmol/L [facility] Urea nitrogen [Mass/Vol] 12 mg/dL 8 - 23 mg/dL [facility] CBC with Auto Differentialon 09-20-2022 Basophils (Bld) [#/Vol] 0.06 10*3/uL [facility] Basophils/100 WBC (Bld) 1 % 0 - 2 % B [facility] Eosinophils (Bld) [#/Vol] 0.19 10*3/uL [facility] Eosinophils/100 WBC (Bld) 2 % 1 - 4 % [facility] Erythrocyte distribution width (RBC) [Ratio] 12.9 % 11.8 - 14.4 % [facility] Hematocrit (Bld) [Volume fraction] 34.5 % Low 36.3 - 47.1 % [facility] Hemoglobin (Bld) [Mass/Vol] 11.2 g/dL Low 11.9 - 15.1 g/dL [facility] Immature granulocytes (Bld) [#/Vol] 0.03 10*3/uL [facility] Immature granulocytes/100 WBC (Bld) 0 % 0 [facility] Interpretation and review of laboratory results Abnormal [facility] Lymphocytes/100 WBC (Bld) 23 % Low 24 - 43 % [facility] Lymphocytes/100 WBC (Bld) 1.88 % [facility] MCH (RBC) [Entitic mass] 30.9 pg 25.2 - 33.5 pg [facility] MCHC (RBC) [Mass/Vol] 32.5 g/dL 28.4 - 34.8 g/dL [facility] MCV (RBC) [Entitic vol] 95.0 fL 82.6 - 102.9 fL [facility] Monocytes/100 WBC (Bld) 10 % 3 - 12 % B ON [facility] Monocytes/100 WBC (Bld) 0.81 % B [facility] Neutrophils/100 WBC (Bld) 64 % 36 - 65 % [facility] Nucleated RBC/100 WBC (Bld) [Ratio] 0.0 % 0.0 per 100 WBC [facility] Platelet mean volume (Bld) [Entitic vol] 10.9 fL 8.1 - 13.5 fL [facility] Platelets (Bld) [#/Vol] 409 10*3/uL [facility] RBC (Bld) [#/Vol] 3.63 10*6/uL Low 3.95 - 5.1 1 m/uL [facility] Segmented neutrophils/100 WBC (Bld) 5.33 % [facility] WBC other (Bld) [#/Vol] 8.3 B ON [facility] POC Glucose Fingerstickon Glucose [Mass/Vol] 156 mg/dL High 65 - 105 mg/dL [facility] Interpretation and review of laboratory results Abnormal [facility] Glucose [Mass/Vol] 133 mg/dL High 65 - 105 mg/dL [facility] Interpretation and review of laboratory results Abnormal [facility] Basic Metabolic Panel w/ Ref esa to MGon 09-19-2022 Anion gap [Moles/Vol] 15 mmol/L 9 - 17 mmol/L [facility] Calcium [Mass/Vol] 8.9 mg/dL 8.6 - 10. 4 mg/dL [facility] Chloride [Moles/Vol] 102 mmol/L 98 - 10 7 mmol/L [facility] CO2 [Moles/Vol] 26 mmol/L 20 - 31 mmol/L [facility] Creatinine [Mass/Vol] 0.8 mg/dL 0.5 - 0.9 mg/dL [facility] GFR/1.73 sq M.predicted MDRD (S/P/Bld) [Vol rate/Area] - PINF [facility] Glucose [Mass/Vol] 105 mg/dL High 70 - 99 mg/dL [facility] Interpretation and review of laboratory results Abnormal [facility] Potassium [Moles/Vol] 3.1 mmol/L Low 3.7 - 5.3 mmol/L [facility] Sodium [Moles/Vol] 143 mmol/L 135 - 144 mmol/L [facility] Urea nitrogen [Mass/Vol] 15 mg/dL 8 - 23 mg/dL [facility] CBC with Auto Differentialon 09-19-2022 Basophils (Bld) [#/Vol] 0.05 10*3/uL [facility] Basophils/100 WBC (Bld) 1 % 0 - 2 % B [facility] Eosinophils (Bld) [#/Vol] 0.18 10*3/uL [facility] Eosinophils/100 WBC (Bld) 2 % 1 - 4 % [facility] Erythrocyte distribution width (RBC) [Ratio] 12.7 % 11.8 - 14.4 % [facility] Hematocrit (Bld) [Volume fraction] 33.9 % Low 36.3 - 47.1 % [facility] Hemoglobin (Bld) [Mass/Vol] 11.4 g/dL Low 11.9 - 15.1 g/dL [facility] Immature granulocytes (Bld) [#/Vol] 0.03 10*3/uL [facility] Immature granulocytes/100 WBC (Bld) 0 % 0 [facility] Interpretation and review of laboratory results Abnormal [facility] Lymphocytes/100 WBC (Bld) 26 % 24 - 43 % [facility] Lymphocytes/100 WBC (Bld) 1.91 % [facility] MCH (RBC) [Entitic mass] 31.7 pg 25.2 - 33.5 pg [facility] MCHC (RBC) [Mass/Vol] 33.6 g/dL 28.4 - 34.8 g/dL [facility] MCV (RBC) [Entitic vol] 94.2 fL 82.6 - 102.9 fL [facility] Monocytes/100 WBC (Bld) 10 % 3 - 12 % B ON [facility] Monocytes/100 WBC (Bld) 0.72 % B ON [facility] Neutrophils/100 WBC (Bld) 61 % 36 - 65 % [facility] Nucleated RBC/100 WBC (Bld) [Ratio] 0.0 % 0.0 per 100 WBC [facility] Platelet mean volume (Bld) [Entitic vol] 11.6 fL 8.1 - 13.5 fL [facility] Platelets (Bld) [#/Vol] 314 10*3/uL [facility] RBC (Bld) [#/Vol] 3.60 10*6/uL Low 3.95 - 5.1 1 m/uL [facility] Segmented neutrophils/100 WBC (Bld) 4.49 % [facility] WBC other (Bld) [#/Vol] 7.4 B ON [facility] Magnesiumon 09-19-2022 Magnesium [Mass/Vol] 1.9 mg/dL 1.6 - 2 .6 mg/dL [facility] POC Glucose Fingerstickon Glucose [Mass/Vol] 119 mg/dL High 65 - 105 mg/dL [facility] Interpretation and review of laboratory results Abnormal [facility] Glucose [Mass/Vol] 123 mg/dL High 65 - 105 mg/dL [facility] Interpretation and review of laboratory results Abnormal [facility] Glucose [Mass/Vol] 129 mg/dL High 65 - 105 mg/dL [facility] Interpretation and review of laboratory results Abnormal [facility] Glucose [Mass/Vol] 117 mg/dL High 65 - 105 mg/dL [facility] Interpretation and review of laboratory results Abnormal [facility] XR CHEST PORTABLEon 09-20-19 MHPN RIS CONSOLIDATED MHPN RIS CONSOLIDATED [facility] Radiology Study observation (narrative) [facility] XR CHEST PORTABLEOrdered By: Tabitha Fuentes on 09-19-2022 [facility] Work Phone: Basic Metabolic Panel w/ Ref esa to MGon 09-18-2022 Anion gap [Moles/Vol] 13 mmol/L 9 - 17 mmol/L [facility] Calcium [Mass/Vol] 8.6 mg/dL 8.6 - 10. 4 mg/dL [facility] Chloride [Moles/Vol] 105 mmol/L 98 - 10 7 mmol/L [facility] CO2 [Moles/Vol] 24 mmol/L 20 - 31 mmol/L [facility] Creatinine [Mass/Vol] 0.7 mg/dL 0.5 - 0.9 mg/dL [facility] GFR/1.73 sq M.predicted MDRD (S/P/Bld) [Vol rate/Area] - PINF [facility] Glucose [Mass/Vol] 129 mg/dL High 70 - 99 mg/dL [facility] Interpretation and review of laboratory results Abnormal [facility] Potassium [Moles/Vol] 3.2 mmol/L Low 3.7 - 5.3 mmol/L [facility] Sodium [Moles/Vol] 142 mmol/L 135 - 144 mmol/L [facility] Urea nitrogen [Mass/Vol] 20 mg/dL 8 - 23 mg/dL [facility] CBC with Auto Differentialon 09-18-2022 Basophils (Bld) [#/Vol] 0.05 10*3/uL [facility] Basophils/100 WBC (Bld) 1 % 0 - 2 % B ON [facility] Eosinophils (Bld) [#/Vol] 0.15 10*3/uL [facility] Eosinophils/100 WBC (Bld) 2 % 1 - 4 % [facility] Erythrocyte distribution width (RBC) [Ratio] 12.3 % 11.8 - 14.4 % [facility] Hematocrit (Bld) [Volume fraction] 33.8 % Low 36.3 - 47.1 % [facility] Hemoglobin (Bld) [Mass/Vol] 11.0 g/dL Low 11.9 - 15.1 g/dL [facility] Immature granulocytes (Bld) [#/Vol] 0.05 10*3/uL [facility] Immature granulocytes/100 WBC (Bld) 1 % High 0 [facility] Interpretation and review of laboratory results Abnormal [facility] Lymphocytes/100 WBC (Bld) 23 % Low 24 - 43 % [facility] Lymphocytes/100 WBC (Bld) 1.96 % [facility] MCH (RBC) [Entitic mass] 30.6 pg 25.2 - 33.5 pg [facility] MCHC (RBC) [Mass/Vol] 32.5 g/dL 28.4 - 34.8 g/dL [facility] MCV (RBC) [Entitic vol] 94.2 fL 82.6 - 102.9 fL [facility] Monocytes/100 WBC (Bld) 10 % 3 - 12 % B ON [facility] Monocytes/100 WBC (Bld) 0.84 % B ON [facility] Neutrophils/100 WBC (Bld) 63 % 36 - 65 % [facility] Nucleated RBC/100 WBC (Bld) [Ratio] 0.0 % 0.0 per 100 WBC [facility] Platelet mean volume (Bld) [Entitic vol] 11.8 fL 8.1 - 13.5 fL [facility] Platelets (Bld) [#/Vol] 334 10*3/uL [facility] RBC (Bld) [#/Vol] 3.59 10*6/uL Low 3.95 - 5.1 1 m/uL [facility] Segmented neutrophils/100 WBC (Bld) 5.43 % [facility] WBC other (Bld) [#/Vol] 8.5 B ON [facility] Magnesiumon 09-18-2022 Magnesium [Mass/Vol] 1.8 mg/dL 1.6 - 2 .6 mg/dL [facility] POC Glucose Fingerstickon Glucose [Mass/Vol] 133 mg/dL High 65 - 105 mg/dL [facility] Interpretation and review of laboratory results Abnormal [facility] Glucose [Mass/Vol] 152 mg/dL High 65 - 105 mg/dL [facility] Interpretation and review of laboratory results Abnormal [facility] Glucose [Mass/Vol] 172 mg/dL High 65 - 105 mg/dL [facility] Interpretation and review of laboratory results Abnormal [facility] Glucose [Mass/Vol] 117 mg/dL High 65 - 105 mg/dL [facility] Interpretation and review of laboratory results Abnormal [facility] Basic Metabolic Panel w/ Ref esa to MGon 09-17-2022 Anion gap [Moles/Vol] 13 mmol/L 9 - 17 mmol/L [facility] Calcium [Mass/Vol] 8.5 mg/dL Low 8.6 - 10. 4 mg/dL [facility] Chloride [Moles/Vol] 102 mmol/L 98 - 10 7 mmol/L [facility] CO2 [Moles/Vol] 24 mmol/L 20 - 31 mmol/L [facility] Creatinine [Mass/Vol] 0.8 mg/dL 0.5 - 0.9 mg/dL [facility] GFR/1.73 sq M.predicted MDRD (S/P/Bld) [Vol rate/Area] - PINF [facility] Glucose [Mass/Vol] 143 mg/dL High 70 - 99 mg/dL [facility] Interpretation and review of laboratory results Abnormal [facility] Potassium [Moles/Vol] 3.4 mmol/L Low 3.7 - 5.3 mmol/L [facility] Sodium [Moles/Vol] 139 mmol/L 135 - 144 mmol/L [facility] Urea nitrogen [Mass/Vol] 24 mg/dL High 8 - 23 mg/dL [facility] C-Reactive Proteinon 023 CRP High sensitivity method [Mass/Vol] 41.2 mg/L High 0.0 - 5.0 mg/L [facility] Interpretation and review of laboratory results Abnormal [facility] CBC with Auto Differentialon 09-17-2022 Basophils (Bld) [#/Vol] 0.08 10*3/uL [facility] Basophils/100 WBC (Bld) 1 % 0 - 2 % B ON [facility] Eosinophils (Bld) [#/Vol] 0.13 10*3/uL [facility] Eosinophils/100 WBC (Bld) 1 % 1 - 4 % [facility] Erythrocyte distribution width (RBC) [Ratio] 12.3 % 11.8 - 14.4 % [facility] Hematocrit (Bld) [Volume fraction] 35.0 % Low 36.3 - 47.1 % [facility] Hemoglobin (Bld) [Mass/Vol] 11.5 g/dL Low 11.9 - 15.1 g/dL [facility] Immature granulocytes (Bld) [#/Vol] 0.08 10*3/uL [facility] Immature granulocytes/100 WBC (Bld) 1 % High 0 [facility] Interpretation and review of laboratory results Abnormal [facility] Lymphocytes/100 WBC (Bld) 22 % Low 24 - 43 % [facility] Lymphocytes/100 WBC (Bld) 2.18 % [facility] MCH (RBC) [Entitic mass] 31.4 pg 25.2 - 33.5 pg [facility] MCHC (RBC) [Mass/Vol] 32.9 g/dL 28.4 - 34.8 g/dL [facility] MCV (RBC) [Entitic vol] 95.6 fL 82.6 - 102.9 fL [facility] Monocytes/100 WBC (Bld) 10 % 3 - 12 % B ON [facility] Monocytes/100 WBC (Bld) 0.99 % B ON [facility] Neutrophils/100 WBC (Bld) 65 % 36 - 65 % [facility] Nucleated RBC/100 WBC (Bld) [Ratio] 0.0 % 0.0 per 100 WBC [facility] Platelet mean volume (Bld) [Entitic vol] 12.1 fL 8.1 - 13.5 fL [facility] Platelets (Bld) [#/Vol] 308 10*3/uL [facility] RBC (Bld) [#/Vol] 3.66 10*6/uL Low 3.95 - 5.1 1 m/uL [facility] Segmented neutrophils/100 WBC (Bld) 6.66 % [facility] WBC other (Bld) [#/Vol] 10.1 B ON [facility] Magnesiumon 09-17-2022 Magnesium [Mass/Vol] 1.8 mg/dL 1.6 - 2 .6 mg/dL [facility] POC Glucose Fingerstickon Glucose [Mass/Vol] 152 mg/dL High 65 - 105 mg/dL [facility] Interpretation and review of laboratory results Abnormal [facility] Glucose [Mass/Vol] 163 mg/dL High 65 - 105 mg/dL [facility] Interpretation and review of laboratory results Abnormal [facility] Glucose [Mass/Vol] 146 mg/dL High 65 - 105 mg/dL [facility] Interpretation and review of laboratory results Abnormal [facility] Glucose [Mass/Vol] 149 mg/dL High 65 - 105 mg/dL [facility] Interpretation and review of laboratory results Abnormal [facility] Basic Metabolic Panel w/ Ref esa to MGon 09-16-2022 Anion gap [Moles/Vol] 13 mmol/L 9 - 17 mmol/L [facility] Calcium [Mass/Vol] 8.7 mg/dL 8.6 - 10. 4 mg/dL [facility] Chloride [Moles/Vol] 105 mmol/L 98 - 10 7 mmol/L [facility] CO2 [Moles/Vol] 29 mmol/L 20 - 31 mmol/L [facility] Creatinine [Mass/Vol] 1.1 mg/dL High 0.5 - 0.9 mg/dL [facility] GFR/1.73 sq M.predicted MDRD (S/P/Bld) [Vol rate/Area] 58 mL/min/{1.73_m2} Low - PINF [facility] Glucose [Mass/Vol] 137 mg/dL High 70 - 99 mg/dL [facility] Interpretation and review of laboratory results Abnormal [facility] Potassium [Moles/Vol] 3.6 mmol/L Low 3.7 - 5.3 mmol/L [facility] Sodium [Moles/Vol] 147 mmol/L High 135 - 144 mmol/L [facility] Urea nitrogen [Mass/Vol] 33 mg/dL High 8 - 23 mg/dL [facility] CBC with Auto Differentialon 09-16-2022 Basophils (Bld) [#/Vol] 0.08 10*3/uL [facility] Basophils/100 WBC (Bld) 1 % 0 - 2 % B [facility] Eosinophils (Bld) [#/Vol] 0.11 10*3/uL [facility] Eosinophils/100 WBC (Bld) 1 % 1 - 4 % [facility] Erythrocyte distribution width (RBC) [Ratio] 12.6 % 11.8 - 14.4 % [facility] Hematocrit (Bld) [Volume fraction] 39.3 % 36.3 - 47.1 % [facility] Hemoglobin (Bld) [Mass/Vol] 12.8 g/dL 11.9 - 15.1 g/dL [facility] Immature granulocytes (Bld) [#/Vol] 0.10 10*3/uL [facility] Immature granulocytes/100 WBC (Bld) 1 % High 0 [facility] Interpretation and review of laboratory results Abnormal [facility] Lymphocytes/100 WBC (Bld) 20 % Low 24 - 43 % [facility] Lymphocytes/100 WBC (Bld) 2.14 % [facility] MCH (RBC) [Entitic mass] 30.3 pg 25.2 - 33.5 pg [facility] MCHC (RBC) [Mass/Vol] 32.6 g/dL 28.4 - 34.8 g/dL [facility] MCV (RBC) [Entitic vol] 93.1 fL 82.6 - 102.9 fL [facility] Monocytes/100 WBC (Bld) 9 % 3 - 12 % B ON [facility] Monocytes/100 WBC (Bld) 0.96 % B ON [facility] Neutrophils/100 WBC (Bld) 68 % High 36 - 65 % [facility] Nucleated RBC/100 WBC (Bld) [Ratio] 0.0 % 0.0 per 100 WBC [facility] Platelet mean volume (Bld) [Entitic vol] 11.9 fL 8.1 - 13.5 fL [facility] Platelets (Bld) [#/Vol] 297 10*3/uL [facility] RBC (Bld) [#/Vol] 4.22 10*6/uL 3.95 - 5.1 1 m/uL [facility] Segmented neutrophils/100 WBC (Bld) 7.49 % [facility] WBC other (Bld) [#/Vol] 10.9 B ON [facility] POC Glucose Fingerstickon Glucose [Mass/Vol] 153 mg/dL High 65 - 105 mg/dL [facility] Interpretation and review of laboratory results Abnormal [facility] Glucose [Mass/Vol] 163 mg/dL High 65 - 105 mg/dL [facility] Interpretation and review of laboratory results Abnormal [facility] Glucose [Mass/Vol] 133 mg/dL High 65 - 105 mg/dL [facility] Interpretation and review of laboratory results Abnormal [facility] CBC with Auto Differentialon 09-15-2022 Basophils (Bld) [#/Vol] 0.07 10*3/uL [facility] Basophils/100 WBC (Bld) 1 % 0 - 2 % B ON [facility] Eosinophils (Bld) [#/Vol] 0.06 10*3/uL [facility] Eosinophils/100 WBC (Bld) 1 % 1 - 4 % [facility] Erythrocyte distribution width (RBC) [Ratio] 12.1 % 11.8 - 14.4 % [facility] Hematocrit (Bld) [Volume fraction] 37.7 % 36.3 - 47.1 % [facility] Hemoglobin (Bld) [Mass/Vol] 11.6 g/dL Low 11.9 - 15.1 g/dL [facility] Immature granulocytes (Bld) [#/Vol] 0.09 10*3/uL [facility] Immature granulocytes/100 WBC (Bld) 1 % High 0 [facility] Interpretation and review of laboratory results Abnormal [facility] Lymphocytes/100 WBC (Bld) 14 % Low 24 - 43 % [facility] Lymphocytes/100 WBC (Bld) 1.75 % [facility] MCH (RBC) [Entitic mass] 29.5 pg 25.2 - 33.5 pg [facility] MCHC (RBC) [Mass/Vol] 30.8 g/dL 28.4 - 34.8 g/dL [facility] MCV (RBC) [Entitic vol] 95.9 fL 82.6 - 102.9 fL [facility] Monocytes/100 WBC (Bld) 8 % 3 - 12 % B ON [facility] Monocytes/100 WBC (Bld) 1.05 % B ON [facility] Neutrophils/100 WBC (Bld) 75 % High 36 - 65 % [facility] Nucleated RBC/100 WBC (Bld) [Ratio] 0.0 % 0.0 per 100 WBC [facility] Platelet mean volume (Bld) [Entitic vol] 11.6 fL 8.1 - 13.5 fL [facility] Platelets (Bld) [#/Vol] 351 10*3/uL [facility] RBC (Bld) [#/Vol] 3.93 10*6/uL Low 3.95 - 5.1 1 m/uL [facility] Segmented neutrophils/100 WBC (Bld) 9.51 % High [facility] WBC other (Bld) [#/Vol] 12.5 High B ON [facility] Magnesiumon 09-15-2022 Magnesium [Mass/Vol] 2.1 mg/dL 1.6 - 2 .6 mg/dL [facility] No Panel Informationon 09-15 [facility] POC Glucose Fingerstickon Glucose [Mass/Vol] 128 mg/dL High 65 - 105 mg/dL [facility] Interpretation and review of laboratory results Abnormal [facility] Glucose [Mass/Vol] 122 mg/dL High 65 - 105 mg/dL [facility] Interpretation and review of laboratory results Abnormal [facility] Glucose [Mass/Vol] 114 mg/dL High 65 - 105 mg/dL [facility] Interpretation and review of laboratory results Abnormal [facility] Glucose [Mass/Vol] 100 mg/dL 65 - 105 mg/dL [facility] Phosphoruson 09-15-2022 Phosphate [Mass/Vol] 3.3 mg/dL 2.6 - 4 .5 mg/dL [facility] Arterial Blood Gas, POCon Anthony Test Positive [facility] FIO2 30.0 [facility] HCO3 (Bld) [Moles/Vol] 30.0 mmol/L High 21.0 - 28.0 mmol/L [facility] O2 Delivery Device Adult Ventilator [facility] Oxygen saturation in Blood 96.0 % 94.0 - 98.0 % [facility] POC pCO2 42.6 [facility] POC pH 7.456 High 7.350 - 7.450 [facility] POC PO2 78.0 Low [facility] Positive Base Excess, Art 5.5 mmol/L High 0.0 - 3.0 mmol/L [facility] Sample Site Right Radial Artery [facility] Basic Metabolic Panelon Anion gap [Moles/Vol] 14 mmol/L 9 - 17 mmol/L [facility] Calcium [Mass/Vol] 9.0 mg/dL 8.6 - 10. 4 mg/dL [facility] Chloride [Moles/Vol] 105 mmol/L 98 - 10 7 mmol/L [facility] CO2 [Moles/Vol] 28 mmol/L 20 - 31 mmol/L [facility] Creatinine [Mass/Vol] 1.5 mg/dL High 0.5 - 0.9 mg/dL [facility] GFR/1.73 sq M.predicted MDRD (S/P/Bld) [Vol rate/Area] 40 mL/min/{1.73_m2} Low - [facility] Glucose [Mass/Vol] 176 mg/dL High 70 - 99 mg/dL [facility] Interpretation and review of laboratory results Abnormal [facility] Potassium [Moles/Vol] 3.5 mmol/L Low 3.7 - 5.3 mmol/L [facility] Sodium [Moles/Vol] 147 mmol/L High 135 - 144 mmol/L [facility] Urea nitrogen [Mass/Vol] 55 mg/dL High 8 - 23 mg/dL [facility] [employer] Basic Metabolic Panel w/ Ref esa to [facility]on 09-14-2022 Anion gap [Moles/Vol] 10 mmol/L 9 - 17 mmol/L [facility] [employer] Calcium [Mass/Vol] 8.7 mg/dL 8.6 - 10. 4 mg/dL [facility] Chloride [Moles/Vol] 106 mmol/L 98 - 10 7 mmol/L [facility] [employer] CO2 [Moles/Vol] 29 mmol/L 20 - 31 mmol/L [facility] Creatinine [Mass/Vol] 1.5 mg/dL High 0.5 - 0.9 mg/dL [facility] [employer] GFR/1.73 sq M.predicted MDRD (S/P/Bld) [Vol rate/Area] 40 mL/min/{1.73_m2} Low - [facility] Glucose [Mass/Vol] 162 mg/dL High 70 - 99 mg/dL [facility] Interpretation and review of laboratory results Abnormal [facility] [employer] Potassium [Moles/Vol] 3.7 mmol/L 3.7 - 5.3 mmol/L [facility] Sodium [Moles/Vol] 145 mmol/L High 135 - 144 mmol/L [facility] Urea nitrogen [Mass/Vol] 61 mg/dL High 8 - 23 mg/dL [facility] CBC with Auto Differentialon 09-14-2022 Basophils (Bld) [#/Vol] 0.05 10*3/uL [facility] Basophils/100 WBC (Bld) 1 % 0 - 2 % B ON [facility] Eosinophils (Bld) [#/Vol] 0.16 10*3/uL [facility] Eosinophils/100 WBC (Bld) 1 % 1 - 4 % [facility] Erythrocyte distribution width (RBC) [Ratio] 12.4 % 11.8 - 14.4 % [facility] Hematocrit (Bld) [Volume fraction] 34.7 % Low 36.3 - 47.1 % [facility] Hemoglobin (Bld) [Mass/Vol] 11.0 g/dL Low 11.9 - 15.1 g/dL [facility] Immature granulocytes (Bld) [#/Vol] 0.05 10*3/uL [facility] Immature granulocytes/100 WBC (Bld) 1 % High 0 [facility] Interpretation and review of laboratory results Abnormal [facility] Lymphocytes/100 WBC (Bld) 29 % 24 - 43 % [facility] Lymphocytes/100 WBC (Bld) 3.19 % [facility] MCH (RBC) [Entitic mass] 31.3 pg 25.2 - 33.5 pg [facility] MCHC (RBC) [Mass/Vol] 31.7 g/dL 28.4 - 34.8 g/dL [facility] MCV (RBC) [Entitic vol] 98.6 fL 82.6 - 102.9 fL [facility] Monocytes/100 WBC (Bld) 8 % 3 - 12 % B ON [facility] Monocytes/100 WBC (Bld) 0.92 % B ON [facility] Neutrophils/100 WBC (Bld) 60 % 36 - 65 % [facility] Nucleated RBC/100 WBC (Bld) [Ratio] 0.0 % 0.0 per 100 WBC [facility] Platelet mean volume (Bld) [Entitic vol] 11.7 fL 8.1 - 13.5 fL [facility] Platelets (Bld) [#/Vol] 241 10*3/uL [facility] RBC (Bld) [#/Vol] 3.52 10*6/uL Low 3.95 - 5.1 1 m/uL [facility] Segmented neutrophils/100 WBC (Bld) 6.68 % [facility] WBC other (Bld) [#/Vol] 11.1 B ON [facility] No Panel Informationon 09-14 Interpretation and review of laboratory results Abnormal [facility] POC Glucose Fingerstickon Glucose [Mass/Vol] 134 mg/dL High 65 - 105 mg/dL [facility] Interpretation and review of laboratory results Abnormal [facility] Glucose [Mass/Vol] 166 mg/dL High 65 - 105 mg/dL [facility] Interpretation and review of laboratory results Abnormal [facility] Glucose [Mass/Vol] 244 mg/dL High 65 - 105 mg/dL [facility] Interpretation and review of laboratory results Abnormal [facility] Glucose [Mass/Vol] 148 mg/dL High 65 - 105 mg/dL [facility] Interpretation and review of laboratory results Abnormal [facility] POCT Glucoseon 09-14-2022 Glucose [Mass/Vol] 180 mg/dL High 74 - 100 mg/dL [facility] Arterial Blood Gas, POCon FIO2 35.0 [facility] HCO3 (Bld) [Moles/Vol] 33.0 mmol/L High 21.0 - 28.0 mmol/L [facility] Oxygen saturation in Blood 96.1 % 94.0 - 98.0 % [facility] POC pCO2 47.2 [facility] POC pH 7.453 High 7.350 - 7.450 [facility] POC PO2 79.7 Low [facility] Positive Base Excess, Art 7.9 mmol/L High 0.0 - 3.0 mmol/L [facility] Basic Metabolic Panel w/ Ref esa to MGon 09-13-2022 Anion gap [Moles/Vol] 12 mmol/L 9 - 17 mmol/L [facility] Calcium [Mass/Vol] 8.4 mg/dL Low 8.6 - 10. 4 mg/dL [facility] Chloride [Moles/Vol] 107 mmol/L 98 - 10 7 mmol/L [facility] CO2 [Moles/Vol] 29 mmol/L 20 - 31 mmol/L [facility] Creatinine [Mass/Vol] 1.7 mg/dL High 0.5 - 0.9 mg/dL [facility] GFR/1.73 sq M.predicted MDRD (S/P/Bld) [Vol rate/Area] 34 mL/min/{1.73_m2} Low - PINF [facility] Glucose [Mass/Vol] 208 mg/dL High 70 - 99 mg/dL [facility] Potassium [Moles/Vol] 4.1 mmol/L 3.7 - 5.3 mmol/L [facility] Sodium [Moles/Vol] 148 mmol/L High 135 - 144 mmol/L [facility] Urea nitrogen [Mass/Vol] 60 mg/dL High 8 - 23 mg/dL [facility] CALCIUM, IONIC (POC)on 09-13 Calcium.ionized (Bld) [Moles/Vol] 1.16 mmol/L 1.15 - 1.33 mmol/L [facility] CBC with Auto Differentialon 09-13-2022 Basophils (Bld) [#/Vol] 0.09 10*3/uL [facility] Basophils/100 WBC (Bld) 1 % 0 - 2 % B ON [facility] Eosinophils (Bld) [#/Vol] 0.18 10*3/uL [facility] Eosinophils/100 WBC (Bld) 1 % 1 - 4 % [facility] Erythrocyte distribution width (RBC) [Ratio] 12.6 % 11.8 - 14.4 % [facility] Hematocrit (Bld) [Volume fraction] 37.7 % 36.3 - 47.1 % [facility] Hemoglobin (Bld) [Mass/Vol] 12.2 g/dL 11.9 - 15.1 g/dL [facility] Immature granulocytes (Bld) [#/Vol] 0.12 10*3/uL [facility] Immature granulocytes/100 WBC (Bld) 1 % High 0 [facility] Interpretation and review of laboratory results Abnormal [facility] Lymphocytes/100 WBC (Bld) 32 % 24 - 43 % [facility] Lymphocytes/100 WBC (Bld) 4.40 % High [facility] MCH (RBC) [Entitic mass] 31.5 pg 25.2 - 33.5 pg [facility] MCHC (RBC) [Mass/Vol] 32.4 g/dL 28.4 - 34.8 g/dL [facility] MCV (RBC) [Entitic vol] 97.4 fL 82.6 - 102.9 fL [facility] Monocytes/100 WBC (Bld) 10 % 3 - 12 % B ON [facility] Monocytes/100 WBC (Bld) 1.32 % High B ON [facility] Neutrophils/100 WBC (Bld) 56 % 36 - 65 % [facility] Nucleated RBC/100 WBC (Bld) [Ratio] 0.1 % High 0.0 per 100 WBC [facility] Platelet mean volume (Bld) [Entitic vol] 11.6 fL 8.1 - 13.5 fL [facility] Platelets (Bld) [#/Vol] 379 10*3/uL [facility] RBC (Bld) [#/Vol] 3.87 10*6/uL Low 3.95 - 5.1 1 m/uL [facility] Segmented neutrophils/100 WBC (Bld) 7.80 % [facility] WBC other (Bld) [#/Vol] 13.9 High B ON [facility] CT CHEST ABDOMEN PELVIS WO C ONTRAST Additional Contrast? Noneon 09-13-2022 MHPN RIS CONSOLIDATED MHPN RIS CONSOLIDATED [facility] CT CHEST ABDOMEN PELVIS WO C ONTRAST Additional Contrast? NoneOrdered By: Margoth Castro on 09-13-2022 [facility] Work Phone: Creatinine W/GFR Point of Ca reon 09-13-2022 Creatinine [Mass/Vol] 1.7 mg/dL High 0.51 - 1.19 mg/dL [facility] eGFR, POC 34 mL/min/1.73 m2 [facility] Culture, Respiratoryon 09-13 Interpretation and review of laboratory results Abnormal [facility] Microorganism identified Cx Nom (Unsp spec) Chasity albicans/dubliniensis MODERATE GROWTH [facility] Microorganism identified Cx Nom (Unsp spec) NO NORMAL CTILALI [facility] Microorganism or agent identified Nom (Unsp spec) >10, <25 NEUTROPHILS/LPF [facility] Microorganism or agent identified Nom (Unsp spec) < 10 EPITHELIAL CELLS/LPF [facility] Microorganism or agent identified Nom (Unsp spec) FEW YEAST Abnormal [facility] Specimen Description .EXPECTORATED SPUTUM [facility] ELECTROLYTES PLUSon 09-14-19 23 Anion gap [Moles/Vol] 10 mmol/L 7 - 16 mmol/L [facility] Chloride [Moles/Vol] 106 mmol/L 98 - 10 7 mmol/L [facility] CO2 Calc (Bld) [Moles/Vol] 33 mmol/L High 22 - 30 mmol/L [facility] Potassium [Moles/Vol] 3.9 mmol/L 3.5 - 4.5 mmol/L [facility] Sodium [Moles/Vol] 148 mmol/L High 138 - 146 mmol/L [facility] Hemoglobin and hematocrit, b loodon 09-13-2022 Hematocrit (Bld) [Volume fraction] 37 % 36 - 46 % [facility] Hemoglobin (Bld) [Mass/Vol] 12.5 g/dL 12.0 - 16.0 g/dL [facility] Lactic Acid, POCon 3 POC Lactic Acid 1.0 mmol/L 0.56 - 1.39 mmol/L [facility] No Panel Informationon 09-13 Interpretation and review of laboratory results Abnormal [facility] Interpretation and review of laboratory results Abnormal [facility] POC Glucose Fingerstickon Glucose [Mass/Vol] 260 mg/dL High 65 - 105 mg/dL [facility] Interpretation and review of laboratory results Abnormal [facility] Glucose [Mass/Vol] 164 mg/dL High 65 - 105 mg/dL [facility] Interpretation and review of laboratory results Abnormal [facility] Glucose [Mass/Vol] 268 mg/dL High 65 - 105 mg/dL [facility] Interpretation and review of laboratory results Abnormal [facility] Glucose [Mass/Vol] 216 mg/dL High 65 - 105 mg/dL [facility] Interpretation and review of laboratory results Abnormal [facility] POCT Glucoseon 09-13-2022 Glucose [Mass/Vol] 200 mg/dL High 74 - 100 mg/dL [facility] POCT urea (BUN)on 09-13-2022 Urea nitrogen [Mass/Vol] 56 mg/dL High 8 - 26 mg/dL [facility] Triglycerideon 09-13-2022 Triglyceride [Mass/Vol] 257 mg/dL High NINF - 150 mg/dL [facility] Arterial Blood Gas, POCon Anthony Test Positive [facility] FIO2 35.0 [facility] HCO3 (Bld) [Moles/Vol] 36.3 mmol/L High 21.0 - 28.0 mmol/L [facility] Mode PRVC [facility] O2 Delivery Device Adult Ventilator [facility] Oxygen saturation in Blood 96.6 % 94.0 - 98.0 % [facility] POC pCO2 45.4 [facility] POC pH 7.511 High 7.350 - 7.450 [facility] POC PO2 79.6 Low [facility] Positive Base Excess, Art 11.6 mmol/L High 0.0 - 3.0 mmol/L [facility] Sample Site Right Radial Artery [facility] Basic Metabolic Panel w/ Ref esa to MGon 09-12-2022 Anion gap [Moles/Vol] 18 mmol/L High 9 - 17 mmol/L [facility] Calcium [Mass/Vol] 8.8 mg/dL 8.6 - 10. 4 mg/dL [facility] Chloride [Moles/Vol] 102 mmol/L 98 - 10 7 mmol/L [facility] CO2 [Moles/Vol] 31 mmol/L 20 - 31 mmol/L [facility] Creatinine [Mass/Vol] 2.1 mg/dL High 0.5 - 0.9 mg/dL [facility] GFR/1.73 sq M.predicted MDRD (S/P/Bld) [Vol rate/Area] 26 mL/min/{1.73_m2} Low - PINF [facility] Glucose [Mass/Vol] 96 mg/dL 70 - 99 mg/dL [facility] Interpretation and review of laboratory results Abnormal [facility] Potassium [Moles/Vol] 4.6 mmol/L 3.7 - 5.3 mmol/L [facility] Sodium [Moles/Vol] 151 mmol/L High 135 - 144 mmol/L [facility] Urea nitrogen [Mass/Vol] 64 mg/dL High 8 - 23 mg/dL [facility] CBC with Auto Differentialon 09-12-2022 Basophils (Bld) [#/Vol] 0.06 10*3/uL [facility] Basophils/100 WBC (Bld) 1 % 0 - 2 % B [facility] Eosinophils (Bld) [#/Vol] 0.13 10*3/uL [facility] Eosinophils/100 WBC (Bld) 1 % 1 - 4 % [facility] Erythrocyte distribution width (RBC) [Ratio] 12.6 % 11.8 - 14.4 % [facility] Hematocrit (Bld) [Volume fraction] 42.6 % 36.3 - 47.1 % [facility] Hemoglobin (Bld) [Mass/Vol] 12.9 g/dL 11.9 - 15.1 g/dL [facility] Immature granulocytes (Bld) [#/Vol] 0.20 10*3/uL [facility] Immature granulocytes/100 WBC (Bld) 2 % High 0 [facility] Interpretation and review of laboratory results Abnormal [facility] Lymphocytes/100 WBC (Bld) 25 % 24 - 43 % [facility] Lymphocytes/100 WBC (Bld) 3.01 % [facility] MCH (RBC) [Entitic mass] 29.7 pg 25.2 - 33.5 pg [facility] MCHC (RBC) [Mass/Vol] 30.3 g/dL 28.4 - 34.8 g/dL [facility] MCV (RBC) [Entitic vol] 98.2 fL 82.6 - 102.9 fL [facility] Monocytes/100 WBC (Bld) 11 % 3 - 12 % B ON [facility] Monocytes/100 WBC (Bld) 1.36 % High B ON [facility] Neutrophils/100 WBC (Bld) 60 % 36 - 65 % [facility] Nucleated RBC/100 WBC (Bld) [Ratio] 0.0 % 0.0 per 100 WBC [facility] Platelet mean volume (Bld) [Entitic vol] 11.5 fL 8.1 - 13.5 fL [facility] Platelets (Bld) [#/Vol] 235 10*3/uL [facility] RBC (Bld) [#/Vol] 4.34 10*6/uL 3.95 - 5.1 1 m/uL [facility] Segmented neutrophils/100 WBC (Bld) 7.32 % [facility] WBC other (Bld) [#/Vol] 12.1 High B ON [facility] Electrolyte Panel w/ Reflex to MGon 09-12-2022 Anion gap [Moles/Vol] 12 mmol/L 9 - 17 mmol/L [facility] Chloride [Moles/Vol] 106 mmol/L 98 - 10 7 mmol/L [facility] CO2 [Moles/Vol] 32 mmol/L High 20 - 31 mmol/L [facility] Interpretation and review of laboratory results Abnormal [facility] Potassium [Moles/Vol] 3.8 mmol/L 3.7 - 5.3 mmol/L [facility] Sodium [Moles/Vol] 150 mmol/L High 135 - 144 mmol/L [facility] No Panel Informationon 09-12 Interpretation and review of laboratory results Abnormal [facility] POC Glucose Fingerstickon Glucose [Mass/Vol] 155 mg/dL High 65 - 105 mg/dL [facility] Interpretation and review of laboratory results Abnormal [facility] Glucose [Mass/Vol] 253 mg/dL High 65 - 105 mg/dL [facility] Interpretation and review of laboratory results Abnormal [facility] Glucose [Mass/Vol] 235 mg/dL High 65 - 105 mg/dL [facility] Interpretation and review of laboratory results Abnormal [facility] Glucose [Mass/Vol] 203 mg/dL High 65 - 105 mg/dL [facility] Interpretation and review of laboratory results Abnormal [facility] POCT Glucoseon 09-12-2022 Glucose [Mass/Vol] 229 mg/dL High 74 - 100 mg/dL [facility] Arterial Blood Gas, POCon Anthony Test Negative [facility] FIO2 35.0 [facility] HCO3 (Bld) [Moles/Vol] 40.1 mmol/L Critically high 21 .0 - 28.0 mmol/L [facility] Mode PRVC [facility] O2 Delivery Device Adult Ventilator [facility] Oxygen saturation in Blood 97.7 % 94.0 - 98.0 % [facility] POC pCO2 45.3 [facility] POC pH 7.554 High 7.350 - 7.450 [facility] POC PO2 87.6 [facility] Positive Base Excess, Art 15.7 mmol/L High 0.0 - 3.0 mmol/L [facility] Sample Site Right Radial Artery [facility] Basic Metabolic Panelon 08-15 Anion gap [Moles/Vol] 15 mmol/L 9 - 17 mmol/L [facility] Calcium [Mass/Vol] 8.7 mg/dL 8.6 - 10. 4 mg/dL [facility] Chloride [Moles/Vol] 106 mmol/L 98 - 10 7 mmol/L [facility] CO2 [Moles/Vol] 30 mmol/L 20 - 31 mmol/L [facility] Creatinine [Mass/Vol] 2.2 mg/dL High 0.5 - 0.9 mg/dL [facility] GFR/1.73 sq M.predicted MDRD (S/P/Bld) [Vol rate/Area] 25 mL/min/{1.73_m2} Low - PINF [facility] Glucose [Mass/Vol] 96 mg/dL 70 - 99 mg/dL [facility] Interpretation and review of laboratory results Abnormal [facility] Potassium [Moles/Vol] 3.2 mmol/L Low 3.7 - 5.3 mmol/L [facility] Sodium [Moles/Vol] 151 mmol/L High 135 - 144 mmol/L [facility] Urea nitrogen [Mass/Vol] 68 mg/dL High 8 - 23 mg/dL [facility] CBC with Auto Differentialon 09-11-2022 Basophils (Bld) [#/Vol] 0.13 10*3/uL [facility] Basophils/100 WBC (Bld) 1 % 0 - 2 % B [facility] Eosinophils (Bld) [#/Vol] 0.13 10*3/uL [facility] Eosinophils/100 WBC (Bld) 1 % 1 - 4 % [facility] Erythrocyte distribution width (RBC) [Ratio] 12.3 % 11.8 - 14.4 % [facility] Hematocrit (Bld) [Volume fraction] 41.9 % 36.3 - 47.1 % [facility] Hemoglobin (Bld) [Mass/Vol] 13.3 g/dL 11.9 - 15.1 g/dL [facility] Immature granulocytes (Bld) [#/Vol] 0.39 10*3/uL High [facility] Immature granulocytes/100 WBC (Bld) 3 % High 0 [facility] Interpretation and review of laboratory results Abnormal [facility] Lymphocytes/100 WBC (Bld) 21 % Low 24 - 43 % [facility] Lymphocytes/100 WBC (Bld) 2.73 % [facility] MCH (RBC) [Entitic mass] 30.1 pg 25.2 - 33.5 pg [facility] MCHC (RBC) [Mass/Vol] 31.7 g/dL 28.4 - 34.8 g/dL [facility] MCV (RBC) [Entitic vol] 94.8 fL 82.6 - 102.9 fL [facility] Monocytes/100 WBC (Bld) 12 % 3 - 12 % B ON [facility] Monocytes/100 WBC (Bld) 1.56 % High B ON [facility] Morphology Germán (Bld) [Interp] Normal [facility] Neutrophils/100 WBC (Bld) 62 % 36 - 65 % [facility] Nucleated RBC/100 WBC (Bld) [Ratio] 0.0 % 0.0 per 100 WBC [facility] Platelet mean volume (Bld) [Entitic vol] 10.5 fL 8.1 - 13.5 fL [facility] Platelets (Bld) [#/Vol] 223 10*3/uL [facility] RBC (Bld) [#/Vol] 4.42 10*6/uL 3.95 - 5.1 1 m/uL [facility] Segmented neutrophils/100 WBC (Bld) 8.06 % [facility] WBC other (Bld) [#/Vol] 13.0 High B ON [facility] Electrolyte Panel w/ Reflex to MGon 09-11-2022 Anion gap [Moles/Vol] 12 mmol/L 9 - 17 mmol/L [facility] Chloride [Moles/Vol] 102 mmol/L 98 - 10 7 mmol/L [facility] CO2 [Moles/Vol] 33 mmol/L High 20 - 31 mmol/L [facility] Interpretation and review of laboratory results Abnormal [facility] Potassium [Moles/Vol] 3.9 mmol/L 3.7 - 5.3 mmol/L [facility] Sodium [Moles/Vol] 147 mmol/L High 135 - 144 mmol/L [facility] [employer] [facility] Magnesiumon 09-11-2022 Magnesium [Mass/Vol] 2.0 mg/dL 1.6 - 2 .6 mg/dL [facility] No Panel Informationon 09-11 Interpretation and review of laboratory results Abnormal [facility] Interpretation and review of laboratory results Abnormal [facility] Notification Panel, POCon CRITICAL ACTION NotifyRN [facility] [employer] Critical Notification tran [facility] CRITICAL NOTIFICATION DATE/TIME 304:14:00 [facility] Critical Value Read Back No [facility] POC Glucose Fingerstickon Glucose [Mass/Vol] 219 mg/dL High 65 - 105 mg/dL [facility] [employer] Interpretation and review of laboratory results Abnormal [facility] [employer] [facility] [facility]ALTH Glucose [Mass/Vol] 155 mg/dL High 65 - 105 mg/dL [facility] Interpretation and review of laboratory results Abnormal [facility]Y [facility] Glucose [Mass/Vol] 114 mg/dL High 65 - 105 mg/dL [facility] [employer] [facility] Glucose [Mass/Vol] 106 mg/dL High 65 - 105 mg/dL [facility] [employer] [facility] Glucose [Mass/Vol] 145 mg/dL High 65 - 105 mg/dL [facility] [employer] [facility] Glucose [Mass/Vol] 128 mg/dL High 65 - 105 mg/dL [facility] [employer] [facility] Glucose [Mass/Vol] 86 mg/dL 65 - 105 mg/dL [facility] [employer] [facility] Glucose [Mass/Vol] 106 mg/dL High 65 - 105 mg/dL [facility] [employer] [facility] Interpretation and review of laboratory results Abnormal [facility] [employer] [facility] [facility] Glucose [Mass/Vol] 119 mg/dL High 65 - 105 mg/dL [facility] [employer] [facility] Interpretation and review of laboratory results Abnormal [facility] [employer] [facility] Glucose [Mass/Vol] 69 mg/dL 65 - 105 mg/dL [facility] Glucose [Mass/Vol] 115 mg/dL High 65 - 105 mg/dL [facility] Interpretation and review of laboratory results Abnormal [facility] Glucose [Mass/Vol] 115 mg/dL High 65 - 105 mg/dL [facility] Interpretation and review of laboratory results Abnormal [facility] POCT Glucoseon 09-11-2022 Glucose [Mass/Vol] 63 mg/dL Low 74 - 100 mg/dL [facility] Arterial Blood Gas, POCon FIO2 30.0 [facility] HCO3 (Bld) [Moles/Vol] 36.3 mmol/L High 21.0 - 28.0 mmol/L [facility] Mode PRVC [facility] Oxygen saturation in Blood 95.2 % 94.0 - 98.0 % [facility] POC pCO2 42.8 [facility] POC pH 7.537 High 7.350 - 7.450 [facility] POC PO2 68.2 Low [facility] Positive Base Excess, Art 12.3 mmol/L High 0.0 - 3.0 mmol/L [facility] Basic Metabolic Panelon 08-14 Anion gap [Moles/Vol] 14 mmol/L 9 - 17 mmol/L [facility] Calcium [Mass/Vol] 8.8 mg/dL 8.6 - 10. 4 mg/dL [facility] Chloride [Moles/Vol] 106 mmol/L 98 - 10 7 mmol/L [facility] CO2 [Moles/Vol] 28 mmol/L 20 - 31 mmol/L [facility] Creatinine [Mass/Vol] 2.3 mg/dL High 0.5 - 0.9 mg/dL [facility] GFR/1.73 sq M.predicted MDRD (S/P/Bld) [Vol rate/Area] 24 mL/min/{1.73_m2} Low - PINF [facility] Glucose [Mass/Vol] 142 mg/dL High 70 - 99 mg/dL [facility] Interpretation and review of laboratory results Abnormal [facility] Potassium [Moles/Vol] 3.5 mmol/L Low 3.7 - 5.3 mmol/L [facility] Sodium [Moles/Vol] 148 mmol/L High 135 - 144 mmol/L [facility] Urea nitrogen [Mass/Vol] 75 mg/dL High 8 - 23 mg/dL [facility] Basic Metabolic Panel w/ Ref esa to MGon 09-10-2022 Anion gap [Moles/Vol] 13 mmol/L 9 - 17 mmol/L [facility] Calcium [Mass/Vol] 8.8 mg/dL 8.6 - 10. 4 mg/dL [facility] Chloride [Moles/Vol] 105 mmol/L 98 - 10 7 mmol/L [facility] CO2 [Moles/Vol] 29 mmol/L 20 - 31 mmol/L [facility] Creatinine [Mass/Vol] 2.2 mg/dL High 0.5 - 0.9 mg/dL [facility] GFR/1.73 sq M.predicted MDRD (S/P/Bld) [Vol rate/Area] 25 mL/min/{1.73_m2} Low - PINF [facility] Glucose [Mass/Vol] 210 mg/dL High 70 - 99 mg/dL [facility] Interpretation and review of laboratory results Abnormal [facility] Potassium [Moles/Vol] 3.7 mmol/L 3.7 - 5.3 mmol/L [facility] Sodium [Moles/Vol] 147 mmol/L High 135 - 144 mmol/L [facility] Urea nitrogen [Mass/Vol] 71 mg/dL High 8 - 23 mg/dL [facility] CBC with Auto Differentialon 09-10-2022 Basophils (Bld) [#/Vol] 0.13 10*3/uL [facility] Basophils/100 WBC (Bld) 1 % 0 - 2 % B [facility] Eosinophils (Bld) [#/Vol] 0.27 10*3/uL [facility] Eosinophils/100 WBC (Bld) 2 % 1 - 4 % [facility] Erythrocyte distribution width (RBC) [Ratio] 12.3 % 11.8 - 14.4 % [facility] Hematocrit (Bld) [Volume fraction] 42.3 % 36.3 - 47.1 % [facility] Hemoglobin (Bld) [Mass/Vol] 13.4 g/dL 11.9 - 15.1 g/dL [facility] Immature granulocytes (Bld) [#/Vol] 0.54 10*3/uL High [facility] Immature granulocytes/100 WBC (Bld) 4 % High 0 [facility] Interpretation and review of laboratory results Abnormal [facility] Lymphocytes/100 WBC (Bld) 21 % Low 24 - 43 % [facility] Lymphocytes/100 WBC (Bld) 2.81 % [facility] MCH (RBC) [Entitic mass] 30.2 pg 25.2 - 33.5 pg [facility] MCHC (RBC) [Mass/Vol] 31.7 g/dL 28.4 - 34.8 g/dL [facility] MCV (RBC) [Entitic vol] 95.3 fL 82.6 - 102.9 fL [facility] Monocytes/100 WBC (Bld) 11 % 3 - 12 % B ON [facility] Monocytes/100 WBC (Bld) 1.47 % High B ON [facility] Morphology Germán (Bld) [Interp] Normal [facility] Neutrophils/100 WBC (Bld) 61 % 36 - 65 % [facility] Nucleated RBC/100 WBC (Bld) [Ratio] 0.0 % 0.0 per 100 WBC [facility] Platelet mean volume (Bld) [Entitic vol] 10.3 fL 8.1 - 13.5 fL [facility] Platelets (Bld) [#/Vol] 234 10*3/uL [facility] RBC (Bld) [#/Vol] 4.44 10*6/uL 3.95 - 5.1 1 m/uL [facility] Segmented neutrophils/100 WBC (Bld) 8.18 % High [facility] WBC other (Bld) [#/Vol] 13.4 High B ON [facility]Health[facility]AC[facility] HEAD WO CONTRASTon 2022 [facility] RIS CONSOLIDATED [facility] RIS CONSOLIDATED [facility] CT HEAD WO CONTRASTOrdered B y: Meme Pearl on 09-10-2022 [facility] [employer] Work Phone: Hepatic Function Panelon Albumin [Mass/Vol] 2.3 g/dL Low 3.5 - 5.2 g/dL [facility] HumansAC[facility] Albumin/Globulin [Mass ratio] 0.6 {ratio} Low 1.0 - 2.5 [facility] HumansAC[facility] ALP [Catalytic activity/Vol] 118 U/L High 35 - 104 U/L [facility] Humans[facility] ALT [Catalytic activity/Vol] 14 U/L 5 - 33 U/L [facility] AST [Catalytic activity/Vol] 64 U/L High NINF - 32 U/L [facility] Bilirubin [Mass/Vol] 0.4 mg/dL 0.3 - 1 .2 mg/dL [facility] HumansAC[facility] Bilirubin.direct [Mass/Vol] 0.1 mg/dL NINF - 0.3 mg/dL [facility] HumansAC[facility] Bilirubin.indirect [Mass/Vol] 0.3 mg/dL 0.0 - 1.0 mg/dL [facility] Interpretation and review of laboratory results Abnormal [facility] HumansAC[facility] Protein [Mass/Vol] 6.2 g/dL Low 6.4 - 8.3 g/dL [facility] WOMENValueClick [facility]OSPITALHealthy HumansAC[facility] No Panel Informationon 09-10 Interpretation and review of laboratory results Abnormal [facility]Value[facility] Mi[facility]PayAC[facility] POC Glucose Fingerstickon Glucose [Mass/Vol] 185 mg/dL High 65 - 105 mg/dL [facility] Interpretation and review of laboratory results Abnormal [facility]ENHealthy HumansCRITICAL ACCESS HOSPITALHealthy HumansAC[facility] Glucose [Mass/Vol] 210 mg/dL High 65 - 105 mg/dL [facility]PayAC[facility] Interpretation and review of laboratory results Abnormal [facility]ENHealthy HumansCRITICAL ACCESS HOSPITALHealthy HumansAC[facility] Glucose [Mass/Vol] 191 mg/dL High 65 - 105 mg/dL [facility]Health[facility] HumansAC[facility] Interpretation and review of laboratory results Abnormal [facility] Glucose [Mass/Vol] 143 mg/dL High 65 - 105 mg/dL [facility] Interpretation and review of laboratory results Abnormal [facility] POCT Glucoseon 09-10-2022 Glucose [Mass/Vol] 125 mg/dL High 74 - 100 mg/dL [facility] Basic Metabolic Panelon 08-14 Anion gap [Moles/Vol] 13 mmol/L 9 - 17 mmol/L [facility] Calcium [Mass/Vol] 9.0 mg/dL 8.6 - 10. 4 mg/dL [facility] Chloride [Moles/Vol] 105 mmol/L 98 - 10 7 mmol/L [facility] CO2 [Moles/Vol] 27 mmol/L 20 - 31 mmol/L [facility] Creatinine [Mass/Vol] 2.8 mg/dL High 0.5 - 0.9 mg/dL [facility] GFR/1.73 sq M.predicted MDRD (S/P/Bld) [Vol rate/Area] 19 mL/min/{1.73_m2} Low - PINF [facility] Glucose [Mass/Vol] 280 mg/dL High 70 - 99 mg/dL [facility] Interpretation and review of laboratory results Abnormal [facility] Potassium [Moles/Vol] 3.9 mmol/L 3.7 - 5.3 mmol/L [facility] Sodium [Moles/Vol] 145 mmol/L High 135 - 144 mmol/L [facility] Urea nitrogen [Mass/Vol] 74 mg/dL High 8 - 23 mg/dL [facility] CBC with Auto Differentialon 09-09-2022 Basophils (Bld) [#/Vol] 0.00 10*3/uL [facility] Basophils/100 WBC (Bld) 0 % 0 - 2 % B [facility] Eosinophils (Bld) [#/Vol] 0.29 10*3/uL [facility] Eosinophils/100 WBC (Bld) 2 % 1 - 4 % [facility] Erythrocyte distribution width (RBC) [Ratio] 12.1 % 11.8 - 14.4 % [facility] Hematocrit (Bld) [Volume fraction] 42.4 % 36.3 - 47.1 % [facility] Hemoglobin (Bld) [Mass/Vol] 13.2 g/dL 11.9 - 15.1 g/dL [facility] Immature granulocytes (Bld) [#/Vol] 1.00 10*3/uL High [facility] Immature granulocytes/100 WBC (Bld) 7 % High 0 [facility] Interpretation and review of laboratory results Abnormal [facility] Lymphocytes/100 WBC (Bld) 22 % Low 24 - 44 % [facility] Lymphocytes/100 WBC (Bld) 3.15 % [facility] MCH (RBC) [Entitic mass] 30.1 pg 25.2 - 33.5 pg [facility] MCHC (RBC) [Mass/Vol] 31.1 g/dL 28.4 - 34.8 g/dL [facility] MCV (RBC) [Entitic vol] 96.8 fL 82.6 - 102.9 fL [facility] Monocytes/100 WBC (Bld) 6 % 1 - 7 % B ON [facility] Monocytes/100 WBC (Bld) 0.86 % High B ON [facility] Morphology Germán (Bld) [Interp] HYPOCHROMIA PRESENT [facility] Neutrophils/100 WBC (Bld) 63 % 36 - 66 % [facility] Nucleated RBC/100 WBC (Bld) [Ratio] 0.0 % 0.0 per 100 WBC [facility] Platelet mean volume (Bld) [Entitic vol] 10.0 fL 8.1 - 13.5 fL [facility] Platelet, Fluorescence 234 [facility] Platelets (Bld) [#/Vol] 234 10*3/uL [facility] RBC (Bld) [#/Vol] 4.38 10*6/uL 3.95 - 5.1 1 m/uL [facility] Segmented neutrophils/100 WBC (Bld) 9.00 % High [facility] WBC other (Bld) [#/Vol] 14.3 High B ON [facility]ENTERValueClick [facility] SYSTEMTradeshift [facility] CENTERUdacity [facility] CHEST ABDOMEN PELVIS WO C ONTRAST Additional Contrast? Noneon 09-09-2022 Radiology Study observation (narrative) RYLIE BRUCE [facility] SYSTEMP[place] [employer] CT HEAD WO CONTRASTon 2022 Radiology Study observation (narrative) RYLIE ELY [employer] POC Glucose Fingerstickon Glucose [Mass/Vol] 250 mg/dL High 65 - 105 mg/dL [facility] Interpretation and review of laboratory results Abnormal [facility] Glucose [Mass/Vol] 243 mg/dL High 65 - 105 mg/dL [facility] Interpretation and review of laboratory results Abnormal [facility] Glucose [Mass/Vol] 290 mg/dL High 65 - 105 mg/dL [facility] Interpretation and review of laboratory results Abnormal [facility] Glucose [Mass/Vol] 293 mg/dL High 65 - 105 mg/dL [facility] Interpretation and review of laboratory results Abnormal [facility] Mi-PayAC[facility] XR CHEST PORTABLEon 09-10-19 23 MHPN RIS CONSOLIDATED MHPN RIS CONSOLIDATED [facility] Radiology Study observation (narrative) RYLIE BRUCE [employer] XR CHEST PORTABLEOrdered By: Laron Forbes on 09-09-2022 [facility] WOMENIPext[facility] Work Phone: Arterial Blood Gas, POCon FIO2 30.0 [facility]OMENHealthy HumansAC[facility] HCO3 (Bld) [Moles/Vol] 29.8 mmol/L High 21.0 - 28.0 mmol/L [facility]ENValue[facility] Oxygen saturation in Blood 94.6 % 94.0 - 98.0 % [facility]ENHealth[facility] Humans HEALTH POC pCO2 39.3 [facility] P[facility] pH 7.488 High 7.350 - 7.450 [facility] WOMENValueClick [facility] POC PO2 67.5 Low [facility]ENValue[facility] Positive Base Excess, Art 6.0 mmol/L High 0.0 - 3.0 mmol/L [facility]ENIP[facility] Basic Metabolic Panel w/ Ref esa to MGon 09-08-2022 Anion gap [Moles/Vol] 13 mmol/L 9 - 17 mmol/L [facility] Calcium [Mass/Vol] 9.0 mg/dL 8.6 - 10. 4 mg/dL [facility] Chloride [Moles/Vol] 104 mmol/L 98 - 10 7 mmol/L [facility] CO2 [Moles/Vol] 25 mmol/L 20 - 31 mmol/L [facility] Creatinine [Mass/Vol] 3.2 mg/dL High 0.5 - 0.9 mg/dL [facility] GFR/1.73 sq M.predicted MDRD (S/P/Bld) [Vol rate/Area] 16 mL/min/{1.73_m2} Low - PINF [facility] Glucose [Mass/Vol] 267 mg/dL High 70 - 99 mg/dL [facility] Interpretation and review of laboratory results Abnormal [facility] Potassium [Moles/Vol] 5.0 mmol/L 3.7 - 5.3 mmol/L [facility] Sodium [Moles/Vol] 142 mmol/L 135 - 144 mmol/L [facility] Urea nitrogen [Mass/Vol] 73 mg/dL High 8 - 23 mg/dL [facility] CBC with Auto Differentialon 09-08-2022 Basophils (Bld) [#/Vol] 0.00 10*3/uL [facility] Basophils/100 WBC (Bld) 0 % 0 - 2 % B [facility] Eosinophils (Bld) [#/Vol] 0.25 10*3/uL [facility] Eosinophils/100 WBC (Bld) 2 % 1 - 4 % [facility] Erythrocyte distribution width (RBC) [Ratio] 12.2 % 11.8 - 14.4 % [facility] Hematocrit (Bld) [Volume fraction] 41.0 % 36.3 - 47.1 % [facility] Hemoglobin (Bld) [Mass/Vol] 13.1 g/dL 11.9 - 15.1 g/dL [facility] Immature granulocytes (Bld) [#/Vol] 0.38 10*3/uL High [facility] Immature granulocytes/100 WBC (Bld) 3 % High 0 [facility] Interpretation and review of laboratory results Abnormal [facility] Lymphocytes/100 WBC (Bld) 9 % Low 24 - 44 % [facility] Lymphocytes/100 WBC (Bld) 1.14 % [facility] MCH (RBC) [Entitic mass] 30.2 pg 25.2 - 33.5 pg [facility] MCHC (RBC) [Mass/Vol] 32.0 g/dL 28.4 - 34.8 g/dL [facility] MCV (RBC) [Entitic vol] 94.5 fL 82.6 - 102.9 fL [facility] Monocytes/100 WBC (Bld) 9 % High 1 - 7 % B ON [facility] Monocytes/100 WBC (Bld) 1.14 % High B ON [facility] Morphology Germán (Bld) [Interp] Normal [facility] Neutrophils/100 WBC (Bld) 77 % High 36 - 66 % [facility] nRBC 1 High 0 per 100 WBC [facility] Nucleated RBC/100 WBC (Bld) [Ratio] 0.0 % 0.0 per 100 WBC [facility] Platelet mean volume (Bld) [Entitic vol] 10.7 fL 8.1 - 13.5 fL [facility] Platelet, Fluorescence 249 [facility] Platelets (Bld) [#/Vol] 249 10*3/uL [facility] RBC (Bld) [#/Vol] 4.34 10*6/uL 3.95 - 5.1 1 m/uL [facility] Segmented neutrophils/100 WBC (Bld) 9.79 % High [facility] WBC other (Bld) [#/Vol] 12.7 High B ON [facility] No Panel Informationon 09-08 Interpretation and review of laboratory results Abnormal [facility] POC Glucose Fingerstickon Glucose [Mass/Vol] 291 mg/dL High 65 - 105 mg/dL [facility] Interpretation and review of laboratory results Abnormal [facility] Glucose [Mass/Vol] 231 mg/dL High 65 - 105 mg/dL [facility] Interpretation and review of laboratory results Abnormal [facility] Glucose [Mass/Vol] 338 mg/dL High 65 - 105 mg/dL [facility] Interpretation and review of laboratory results Abnormal [facility] Glucose [Mass/Vol] 319 mg/dL High 65 - 105 mg/dL [facility] Interpretation and review of laboratory results Abnormal [facility] POCT Glucoseon 09-08-2022 Glucose [Mass/Vol] 241 mg/dL High 74 - 100 mg/dL [facility] Basic Metabolic Panel w/ Ref esa to MGon 09-07-2022 Anion gap [Moles/Vol] 10 mmol/L 9 - 17 mmol/L [facility] Calcium [Mass/Vol] 8.3 mg/dL Low 8.6 - 10. 4 mg/dL [facility] Chloride [Moles/Vol] 101 mmol/L 98 - 10 7 mmol/L [facility] CO2 [Moles/Vol] 25 mmol/L 20 - 31 mmol/L [facility] Creatinine [Mass/Vol] 3.4 mg/dL High 0.5 - 0.9 mg/dL [facility] GFR/1.73 sq M.predicted MDRD (S/P/Bld) [Vol rate/Area] 15 mL/min/{1.73_m2} Low - PINF [facility] Glucose [Mass/Vol] 290 mg/dL High 70 - 99 mg/dL [facility] Interpretation and review of laboratory results Abnormal [facility] Potassium [Moles/Vol] 5.2 mmol/L 3.7 - 5.3 mmol/L [facility] Sodium [Moles/Vol] 136 mmol/L 135 - 144 mmol/L [facility] Urea nitrogen [Mass/Vol] 69 mg/dL High 8 - 23 mg/dL [facility] CBC with Auto Differentialon 09-07-2022 Basophils (Bld) [#/Vol] 0.12 10*3/uL [facility] Basophils/100 WBC (Bld) 1 % 0 - 2 % B ON [facility] Eosinophils (Bld) [#/Vol] [facility] Eosinophils/100 WBC (Bld) 0 % Low 1 - 4 % [facility] Erythrocyte distribution width (RBC) [Ratio] 13.0 % 11.8 - 14.4 % [facility] Hematocrit (Bld) [Volume fraction] 34.1 % Low 36.3 - 47.1 % [facility] Hemoglobin (Bld) [Mass/Vol] 12.4 g/dL 11.9 - 15.1 g/dL [facility] Immature granulocytes (Bld) [#/Vol] 0.50 10*3/uL High [facility] Immature granulocytes/100 WBC (Bld) 5 % High 0 [facility] Interpretation and review of laboratory results Abnormal [facility] Lymphocytes/100 WBC (Bld) 14 % Low 24 - 43 % [facility] Lymphocytes/100 WBC (Bld) 1.49 % [facility] MCH (RBC) [Entitic mass] 34.4 pg High 25.2 - 33.5 pg [facility] MCHC (RBC) [Mass/Vol] 36.4 g/dL High 28.4 - 34.8 g/dL [facility] MCV (RBC) [Entitic vol] 94.7 fL 82.6 - 102.9 fL [facility] Monocytes/100 WBC (Bld) 7 % 3 - 12 % B ON [facility] Monocytes/100 WBC (Bld) 0.71 % B ON [facility] Neutrophils/100 WBC (Bld) 73 % High 36 - 65 % [facility] Nucleated RBC/100 WBC (Bld) [Ratio] 0.0 % 0.0 per 100 WBC [facility] Platelet, Fluorescence 221 [facility] Platelets (Bld) [#/Vol] See Reflexed IPF Result [facility] Platelets reticulated/100 platelets Auto (Bld) 3.5 % 1.1 - 10.3 % [facility] RBC (Bld) [#/Vol] 3.60 10*6/uL Low 3.95 - 5.1 1 m/uL [facility] Segmented neutrophils/100 WBC (Bld) 7.55 % [facility] WBC other (Bld) [#/Vol] 10.4 B ON [facility] Culture, Blood 1on 3 Service comment (Unsp spec) [Interp] R FA 5ML [facility] Microorganism identified Cx Nom (Unsp spec) NO GROWTH 5 DAYS [facility] Service comment (Unsp spec) [Interp] RJUG, 10ML [facility] Specimen Description .BLOOD [facility] Culture, Blood 2on 3 Service comment (Unsp spec) [Interp] R HAND 3ML [facility] Laboratoryon 09-07-2022 Microorganism identified Cx Nom (Unsp spec) NO GROWTH 5 DAYS [facility] No Panel Informationon 09-07 Specimen Description .[facility] POC Glucose Fingerstickon Glucose [Mass/Vol] 308 mg/dL High 65 - 105 mg/dL [facility] Interpretation and review of laboratory results Abnormal [facility] Glucose [Mass/Vol] 315 mg/dL High 65 - 105 mg/dL [facility] Interpretation and review of laboratory results Abnormal [facility] Glucose [Mass/Vol] 240 mg/dL High 65 - 105 mg/dL [facility] Interpretation and review of laboratory results Abnormal [facility] Glucose [Mass/Vol] 262 mg/dL High 65 - 105 mg/dL [facility] Interpretation and review of laboratory results Abnormal [facility] Glucose [Mass/Vol] 287 mg/dL High 65 - 105 mg/dL [facility] Interpretation and review of laboratory results Abnormal [facility] Glucose [Mass/Vol] 322 mg/dL High 65 - 105 mg/dL [facility] Interpretation and review of laboratory results Abnormal [facility] POCT Glucoseon 09-07-2022 Glucose [Mass/Vol] 268 mg/dL High 74 - 100 mg/dL [facility] Interpretation and review of laboratory results Abnormal [facility] Venous Blood Gas, POCon 08-14 Anthony Test Positive [facility] FIO2 30.0 [facility] HCO3 (Bld) [Moles/Vol] 27.7 mmol/L 22.0 - 29.0 mmol/L [facility] Mode PRVC [facility] O2 Delivery Device Adult Ventilator [facility] Oxygen saturation in Blood 84.3 % 60.0 - 85.0 % [facility] pCO2, Bryan 42.5 [facility] pH, Bryan 7.423 7.320 - 7.430 [facility] pO2, Bryan 48.2 [facility] Positive Base Excess, Bryan 2.8 mmol/L 0.0 - 3.0 mmol/L [facility] Sample Site Left Radial Artery [facility] Arterial Blood Gas, POCon Anthony Test Positive [facility] FIO2 30.0 [facility] HCO3 (Bld) [Moles/Vol] 25.7 mmol/L 21.0 - 28.0 mmol/L [facility] Oxygen saturation in Blood 97.6 % 94.0 - 98.0 % [facility] POC pCO2 41.2 [facility] POC pH 7.402 7.350 - 7.450 [facility] POC PO2 97.9 [facility] Positive Base Excess, Art 0.8 mmol/L 0.0 - 3.0 mmol/L [facility] Pt Temp 36.4 [facility] Sample Site Right Radial Artery [facility] Basic Metabolic Panel w/ Ref esa to MGon 09-06-2022 Anion gap [Moles/Vol] 13 mmol/L 9 - 17 mmol/L [facility] Calcium [Mass/Vol] 7.7 mg/dL Low 8.6 - 10. 4 mg/dL [facility] Chloride [Moles/Vol] 101 mmol/L 98 - 10 7 mmol/L [facility] CO2 [Moles/Vol] 23 mmol/L 20 - 31 mmol/L [facility] Creatinine [Mass/Vol] 3.3 mg/dL High 0.5 - 0.9 mg/dL [facility] GFR/1.73 sq M.predicted MDRD (S/P/Bld) [Vol rate/Area] 15 mL/min/{1.73_m2} Low - PINF [facility] Glucose [Mass/Vol] 145 mg/dL High 70 - 99 mg/dL [facility] Interpretation and review of laboratory results Abnormal [facility] Potassium [Moles/Vol] 4.9 mmol/L 3.7 - 5.3 mmol/L [facility] Sodium [Moles/Vol] 137 mmol/L 135 - 144 mmol/L [facility] Urea nitrogen [Mass/Vol] 58 mg/dL High 8 - 23 mg/dL [facility] CBC with Auto Differentialon 09-06-2022 Basophils (Bld) [#/Vol] 0.04 10*3/uL [facility] Basophils/100 WBC (Bld) 0 % 0 - 2 % B [facility] Eosinophils (Bld) [#/Vol] [facility] Eosinophils/100 WBC (Bld) 0 % Low 1 - 4 % [facility] Erythrocyte distribution width (RBC) [Ratio] 12.5 % 11.8 - 14.4 % [facility] Hematocrit (Bld) [Volume fraction] 37.8 % 36.3 - 47.1 % [facility] Hemoglobin (Bld) [Mass/Vol] 12.8 g/dL 11.9 - 15.1 g/dL [facility] Immature granulocytes (Bld) [#/Vol] 0.34 10*3/uL High [facility] Immature granulocytes/100 WBC (Bld) 3 % High 0 [facility] Interpretation and review of laboratory results Abnormal [facility] Lymphocytes/100 WBC (Bld) 14 % Low 24 - 43 % [facility] Lymphocytes/100 WBC (Bld) 1.62 % [facility] MCH (RBC) [Entitic mass] 30.6 pg 25.2 - 33.5 pg [facility] MCHC (RBC) [Mass/Vol] 33.9 g/dL 28.4 - 34.8 g/dL [facility] MCV (RBC) [Entitic vol] 90.4 fL 82.6 - 102.9 fL [facility] Monocytes/100 WBC (Bld) 8 % 3 - 12 % [facility] Monocytes/100 WBC (Bld) 0.90 % [facility] Neutrophils/100 WBC (Bld) 76 % High 36 - 65 % [facility] Nucleated RBC/100 WBC (Bld) [Ratio] 0.0 % 0.0 per 100 WBC [facility] Platelet, Fluorescence [address] [facility] Platelets (Bld) [#/Vol] See Reflexed IPF Result [facility] Platelets reticulated/100 platelets Auto (Bld) 2.8 % 1.1 - 10.3 % [facility] RBC (Bld) [#/Vol] 4.18 10*6/uL 3.95 - 5.1 1 m/uL [facility] Segmented neutrophils/100 WBC (Bld) 9.11 % High [facility] WBC other (Bld) [#/Vol] 12.0 High B ON [facility] POC Glucose Fingerstickon Glucose [Mass/Vol] 235 mg/dL High 65 - 105 mg/dL [facility] Interpretation and review of laboratory results Abnormal [facility] Glucose [Mass/Vol] 247 mg/dL High 65 - 105 mg/dL [facility] Interpretation and review of laboratory results Abnormal [facility] Glucose [Mass/Vol] 181 mg/dL High 65 - 105 mg/dL [facility] Interpretation and review of laboratory results Abnormal [facility] Glucose [Mass/Vol] 169 mg/dL High 65 - 105 mg/dL [facility] Interpretation and review of laboratory results Abnormal [facility] Glucose [Mass/Vol] 128 mg/dL High 65 - 105 mg/dL [facility] Interpretation and review of laboratory results Abnormal [facility] Glucose [Mass/Vol] 143 mg/dL High 65 - 105 mg/dL [facility] Interpretation and review of laboratory results Abnormal [facility] POCT Glucoseon 09-06-2022 Glucose [Mass/Vol] 122 mg/dL High 74 - 100 mg/dL [facility] CBC AUTO DIFFon 05-06-2022 BASO # 0.1 103/ul Normal 0.0-0.1 [facility] Comment on above: Performed By: #### C BC #### Laboratory [address] [address] [address] Shonda Zamorano Basophils/100 WBC (Bld) 0.5 % Normal 0.2-2.0 [facility] Comment on above: Performed By: #### C BC #### Laboratory [address] [place] [address] Dr. Shonda Zamorano EO # 0.1 103/ul Normal 0.0-0.7 [facility] Comment on above: Performed By: #### C BC #### Laboratory [address] [place] [address] Dr. Shonda Zamorano Eosinophils/100 WBC (Bld) 0.9 % Normal 0.9-7.0 [facility] Comment on above: Performed By: #### C BC #### Laboratory [address] [place] [address] Dr. Shonda Zamorano Erythrocyte distribution width (RBC) [Ratio] 12.2 % Normal 11.0-15.0 [facility] Comment on above: Performed By: #### C BC #### Laboratory [address] [place] [address] Dr. Shonda Zamorano Hematocrit (Bld) [Volume fraction] 48.2 % Critically high 36.0-48.0 [facility] Comment on above: Performed By: #### C BC #### Laboratory [address] [place] [address] Dr. Shonda Zamorano Hemoglobin (Bld) [Mass/Vol] 16.3 g/dL Critically high 12.0-16.0 [facility] Comment on above: Performed By: #### C BC #### Laboratory [address] [place] [address] Dr. Shonda Zamorano IG # 0.03 10e3/ul Normal 0.00-0.03 [facility] Comment on above: Performed By: #### C BC #### Laboratory [address] [place] [address] Dr. Shonda Zamorano IG % 0.3 % Normal 0.0-0.5 [facility] Comment on above: Performed By: #### C BC #### Laboratory [address] [place] [address] Dr. Shonda Zamorano LYMPH # 2.8 103/ul Normal 1.2-3.8 The Comment on above: Performed By: #### C BC #### Laboratory [address] [place] [address] Dr. Shonda Zamorano Lymphocytes/100 WBC (Bld) 27.8 % Normal 20.5-60.0 [facility] Comment on above: Performed By: #### C BC #### Laboratory [address] [place] [address] Dr. Shonda Zamorano MANUAL DIFF REQ NO Normal [facility] Comment on above: Performed By: #### C BC #### Laboratory [address] [place] [address] Dr. Shonda Zamorano MCH (RBC) [Entitic mass] 30.9 pg Normal 26.7-34.0 The Comment on above: Performed By: #### C BC #### Laboratory [address] [place] [address] Dr. Shonda Zamorano MCHC (RBC) [Mass/Vol] 33.8 g/dL Normal 29.9-35.2 The Comment on above: Performed By: #### C BC #### Laboratory [address] [place] [address] Dr. Shonda Zamorano MCV (RBC) [Entitic vol] 91.3 fL Normal 81.0-99.0 [facility] Comment on above: Performed By: #### C BC #### Laboratory [address] [place] [address] Dr. Shonda Zamorano MONO # 0.7 103/ul Normal 0.3-0.8 [facility] Comment on above: Performed By: #### C BC #### Laboratory [address] [place] [address] Dr. Shonda Zamorano Monocytes/100 WBC (Bld) 7.3 % Normal 1.7-12.0 [facility] Comment on above: Performed By: #### C BC #### Laboratory [address] [place] [address] Dr. Shonda Zamorano NEUT # 6.4 103/ul Normal 1.4-6.5 [facility] Comment on above: Performed By: #### C BC #### Laboratory [address] [place] [address] Dr. Shonda Zamorano Neutrophils/100 WBC (Bld) 63.2 % Normal 43.0-75.0 [facility] Comment on above: Performed By: #### C BC #### Laboratory [address] [place] [address] Dr. Shonda Zamorano Platelet mean volume (Bld) [Entitic vol] 9.1 fL Critically low 9.5-13.5 [facility] Comment on above: Performed By: #### C BC #### Laboratory [address] [place] [address] Dr. Shonda Zamorano PLT 342 103/ul Normal 150-450 The Comment on above: Performed By: #### C BC #### Laboratory [address] [place] [address] Dr. Shonda Zamorano RBC 5.28 106/ul Normal 4.20-5.40 [facility] Comment on above: Performed By: #### C BC #### Laboratory [address] [place] [address] Dr. Shonda Zamorano WBC 10.1 103/ul Normal 4.0-11.0 [facility] Comment on above: Performed By: #### C BC #### Laboratory [address] [place] [address] Dr. Shonda Zamorano GLYCOHEMOGLOBIN A1Con 2022 ADA RECOMMENDATION SEE BELOW Normal [facility] Comment on above: Result Comment: ADA RECOMMENDED LIMIT 4.0 - 6.0 ADA THERAPEUTIC TARGET < 7.0 ACTION SUGGESTED > 7.0 Performed By: #### A 1C #### Laboratory [address] [place] [address] Dr. Shonda Zamorano Glucose [Mass/Vol] 278 mg/dL Normal [facility] Comment on above: Performed By: #### A 1C #### Laboratory [address] [place] [address] Dr. Shonda Zamorano HbA1c (Bld) [Mass fraction] 11.3 % Critically high 4.5-6.2 [facility] Comment on above: Performed By: #### A 1C #### Laboratory [address] [place] [address] Dr. Shonda Zamorano LIPID PROFILEon 05-06-2022 CHOL-HDL RATIO NORM SEE BELOW Normal [facility] Comment on above: Result Comment: 3.3 - 4.4 LOW RISK 4.4 - 7.1 AVERAGE RISK 7.1 - 11.0 MODERATE RISK >11.0 HIGH RISK Performed By: #### L IPID, CMP #### Laboratory [address] [place] [address] Dr. Shonda Zamorano Cholesterol [Mass/Vol] 182 mg/dL Normal <=200 [facility] Comment on above: Performed By: #### L IPID, CMP #### Laboratory [address] [address] [address] Shonda Zamorano Cholesterol in HDL [Mass/Vol] 46 mg/dL Normal 40-60 [facility] Comment on above: Performed By: #### L IPID, CMP #### Laboratory [address] [place] [address] Dr. Shonda Zamorano Cholesterol in LDL [Mass/Vol] 106.4 mg/dL Normal [facility] Comment on above: Performed By: #### L IPID, CMP #### Laboratory [address] [address] [address] Shonda Zamorano Cholesterol.total/Cara sterol in HDL [Mass ratio] 4.0 {ratio} Normal [facility] Comment on above: Performed By: #### L IPID, CMP #### Laboratory [address] [address] [address] Shonda Zamorano HDL NORMAL > or = 60 mg/dl - LO W CARDIOVASCULAR RISK <40 mg/dl - HIGH CARDIOVASCULAR RISK Normal [facility] Comment on above: Performed By: #### L IPID, CMP #### Laboratory [address] [address] [address] Shonda Zamorano LDL CALC NORMAL SEE BELOW Normal [facility] Comment on above: Result Comment: <100 mg/dl OPTIMAL 100 - 129 mg/dl NEAR OR ABOVE OPTIMAL 130 - 159 mg/dl BORDERLINE HIGH 160 - 189 mg/dl HIGH >190 mg/dl VERY HIGH Performed By: #### L IPID, CMP #### Laboratory [address] [address] [address] Shonda Zamorano Triglyceride [Mass/Vol] 148 mg/dL Normal <=150 [facility] Comment on above: Performed By: #### L IPID, CMP #### Laboratory [address] [address] [address] Shonda Zamorano VLDL CALC 29.6 mg/dL Normal [facility] Comment on above: Performed By: #### L IPID, CMP #### Laboratory [address] [address] [address] Shonda Zamorano MICROALBUMIN, RAND URon 04-14 mALB 6.7 mg/L Normal <=30.0 [facility] Comment on above: Performed By: #### M ALBR #### Laboratory [address] [address] [address] Shonda Zamorano PROF 14(COMP METB)on 023 Albumin [Mass/Vol] 3.5 g/dL Normal 3.4-5.0 [facility] Comment on above: Performed By: #### L IPID, CMP #### Laboratory [address] [address] [address] Shonda Zamorano Albumin/Globulin [Mass ratio] 0.8 {ratio} Normal [facility] Comment on above: Performed By: #### L IPID, CMP #### Laboratory [address] [address] [address] Shonda Zamorano ALP [Catalytic activity/Vol] 126 U/L Critically high 46-116 [facility] Comment on above: Performed By: #### L IPID, CMP #### Laboratory [address] [address] [address] Shonda Zamorano ALT [Catalytic activity/Vol] 18 U/L Normal 14-59 [facility] Comment on above: Performed By: #### L IPID, CMP #### Laboratory [address] [address] [address] Shonda Zamorano Anion gap [Moles/Vol] 13.9 mmol/L Normal [facility] Comment on above: Performed By: #### L IPID, CMP #### Laboratory [address] [address] [address] Shodna Zamorano AST [Catalytic activity/Vol] 15 U/L Normal 15-37 [facility] Comment on above: Performed By: #### L IPID, CMP #### Laboratory [address] [address] [address] Shonda Zamorano Bilirubin [Mass/Vol] 0.5 mg/dL Normal 0.2-1.0 [facility] Comment on above: Performed By: #### L IPID, CMP #### Laboratory [address] [address] [address] Shonda Zamorano Calcium [Mass/Vol] 9.4 mg/dL Normal 8.5-10.1 [facility] Comment on above: Performed By: #### L IPID, CMP #### Laboratory [address] [address] [address] Shonda Zamorano Chloride [Moles/Vol] 99 mmol/L Normal 98-107 [facility] Comment on above: Performed By: #### L IPID, CMP #### Laboratory [address] [address] [address] Shonda Zamorano CO2 [Moles/Vol] 29.2 mmol/L Normal 21.0-32.0 [facility] Comment on above: Performed By: #### L IPID, CMP #### Laboratory [address] [address] [address] Shonda Zamorano Creatinine [Mass/Vol] 0.55 mg/dL Normal 0.55-1.02 [facility] Comment on above: Performed By: #### L IPID, CMP #### Laboratory [address] [address] [address] Shonda Zamorano EGFR-AF SLOVAK >60 Normal >=60 [facility] Comment on above: Performed By: #### L IPID, CMP #### Laboratory [address] [address] [address] Shonda Zamorano EGFR-NON AF SLOVAK >60 Normal >=60 [facility] Comment on above: Performed By: #### L IPID, CMP #### Laboratory [address] [address] [address] Shonda Zamorano Globulin (S) [Mass/Vol] 4.2 g/dL Normal [facility] Comment on above: Performed By: #### L IPID, CMP #### Laboratory [address] [address] [address] Shonda Zamorano Glucose [Mass/Vol] 184 mg/dL Critically high 74-106 [facility] Comment on above: Performed By: #### L IPID, CMP #### Laboratory [address] [address] [address] Shonda Zamorano Potassium [Moles/Vol] 4.1 mmol/L Normal 3.5-5.1 [facility] Comment on above: Performed By: #### L IPID, CMP #### Laboratory [address] [address] [address] Shonda Zamorano Protein [Mass/Vol] 7.7 g/dL Normal 6.4-8.2 [facility] Comment on above: Performed By: #### L IPID, CMP #### Laboratory [address] [address] [address] Shonda Zamorano Sodium [Moles/Vol] 138 mmol/L Normal 136-145 [facility] Comment on above: Performed By: #### L IPID, CMP #### Laboratory [address] [place] [address] Dr. Shonda Zamorano Urea nitrogen [Mass/Vol] 10.0 mg/dL Normal 7.0-18.0 [facility] Comment on above: Performed By: #### L IPID, CMP #### Laboratory [address] [place] [address] Dr. Shonda Zamorano Urea nitrogen/Creatinine [Mass ratio] 18.2 mg/mg Normal [facility] Comment on above: Performed By: #### L IPID, CMP #### Laboratory [address] [place] [address] Dr. Shonda Zamorano UA RANDOM W/MICROSCOPICon BACTERIA TRACE Abnormal NONE SEEN [facility] Comment on above: Performed By: #### U AMIC #### Laboratory [address] [place] [address] Dr. Shonda Zamorano Bilirubin Ql (U) Negative Normal NEGATIVE [facility] Comment on above: Performed By: #### U AMIC #### Laboratory [address] [place] [address] Dr. Shonda Zamorano CAST NONE SEEN Normal NONE SEEN [facility] Comment on above: Performed By: #### U AMIC #### Laboratory [address] [place] [address] Dr. Shonda Zamorano Clarity (U) CLEAR Normal CLEAR The Comment on above: Performed By: #### U AMIC #### Laboratory [address] [place] [address] Dr. Shonda Zamorano Color (U) YELLOW Normal YELLOW The Comment on above: Performed By: #### U AMIC #### Laboratory [address] [place] [address] Dr. Shonda Zamorano Crystals LM Nom (Urine sed) NONE SEEN Normal NONE SEEN The Comment on above: Performed By: #### U AMIC #### Laboratory [address] [address] [address] Shonda Zamorano Epithelial cells LM Ql (Urine sed) FEW Abnormal NONE SEEN /RARE The Comment on above: Performed By: #### U AMIC #### Laboratory [address] [address] [address] Shonda Zamorano Glucose Ql (U) >1000 Abnormal NEGATIVE [facility] Comment on above: Performed By: #### U AMIC #### Laboratory [address] [address] [address] Shonda Zamorano Hemoglobin Ql (U) Negative Normal NEGATIVE [facility] Comment on above: Performed By: #### U AMIC #### Laboratory [address] [place] [address] Dr. Shonda Zamorano Ketones Ql (U) Negative Normal NEGATIVE [facility] Comment on above: Performed By: #### U AMIC #### Laboratory [address] [address] [address] Shonda Zamorano LEUKOCYTES Negative Normal NEGATIVE The Comment on above: Performed By: #### U AMIC #### Laboratory [address] [address] [address] Shonda Zamorano MUCOUS NONE SEEN Normal NONE SEEN The Comment on above: Performed By: #### U AMIC #### Laboratory [address] [address] [address] Shonda Zamorano Nitrite Ql (U) Negative Normal NEGATIVE [facility] Comment on above: Performed By: #### U AMIC #### Laboratory [address] [address] [address] Shonda Zamorano pH (U) 5.5 [pH] Normal 5-9 The Comment on above: Performed By: #### U AMIC #### Laboratory [address] [address] [address] Shonda Zamorano RBC 2-5 Abnormal 0-2 [facility] Comment on above: Performed By: #### U AMIC #### Laboratory [address] [place] [address] Dr. Shonda Zamorano SPEC GRAVITY >=1.030 Abnormal 1.005-<=1.0 25 [facility] Comment on above: Performed By: #### U AMIC #### Laboratory [address] [place] [address] Dr. Shonda Zamorano UA PROTEIN TRACE Normal NEGATIVE/ TRACE The Comment on above: Performed By: #### U AMIC #### Laboratory [address] [place] [address] Dr. Shonda Zamorano Urobilinogen Qn (U) 0.2 {Yoko'U}/dL Normal 0.2 - 1. 0 [facility] Comment on above: Performed By: #### U AMIC #### Laboratory [address] [place] [address] Dr. Shonda Zamorano WBC 0-2 Abnormal NONE SEEN [facility] Comment on above: Performed By: #### U AMIC #### Laboratory [address] [place] [address] Dr. Shonda Zamorano YEAST PRESENT Abnormal NONE SEEN [facility] Comment on above: Performed By: #### U AMIC #### Laboratory [address] [place] [address] Dr. Shonda Zamorano CBC AUTO DIFFon 07-02-2021 BASO # 0.0 103/ul Normal 0.0-0.1 [facility] Comment on above: Performed By: #### C BC #### Laboratory [address] [place] [address] Dr. Shonda Zamorano Basophils/100 WBC (Bld) 0.5 % Normal 0.2-2.0 [facility] Comment on above: Performed By: #### C BC #### Laboratory [address] [place] [address] Dr. Shonda Zamorano EO # 0.0 103/ul Normal 0.0-0.7 The Comment on above: Performed By: #### C BC #### Laboratory [address] [place] [address] Dr. Shonda Zamorano Eosinophils/100 WBC (Bld) 0.5 % Critically low 0.9-7.0 The Comment on above: Performed By: #### C BC #### Laboratory [address] [place] [address] Dr. Shonda Zamorano Erythrocyte distribution width (RBC) [Ratio] 12.5 % Normal 11.0-15.0 [facility] Comment on above: Performed By: #### C BC #### Laboratory [address] [place] [address] Dr. Shonda Zamorano Hematocrit (Bld) [Volume fraction] 53.1 % Critically high 36.0-48.0 [facility] Comment on above: Performed By: #### C BC #### Laboratory [address] [place] [address] Dr. Shonda Zamorano Hemoglobin (Bld) [Mass/Vol] 17.4 g/dL Critically high 12.0-16.0 [facility] Comment on above: Performed By: #### C BC #### Laboratory [address] [place] [address] Dr. Shonda Zamorano IG # 0.00 10e3/ul Normal 0.00-0.03 [facility] Comment on above: Performed By: #### C BC #### Laboratory [address] [place] [address] Dr. Shonda Zamorano IG % 0.4 % Normal 0.0-0.5 The Comment on above: Performed By: #### C BC #### Laboratory [address] [place] [address] Dr. Shonda Zamorano LYMPH # 2.3 103/ul Normal 1.2-3.8 The Comment on above: Performed By: #### C BC #### Laboratory [address] [place] [address] Dr. Shonda Zamorano Lymphocytes/100 WBC (Bld) 23.7 % Normal 20.5-60.0 The Comment on above: Performed By: #### C BC #### Laboratory [address] [place] [address] Dr. Shonda Zamorano MANUAL DIFF REQ NO Normal [facility] Comment on above: Performed By: #### C BC #### Laboratory [address] [place] [address] Dr. Shonda Zamorano MCH (RBC) [Entitic mass] 30.4 pg Normal 26.7-34.0 [facility] Comment on above: Performed By: #### C BC #### Laboratory [address] [place] [address] Dr. Shonda Zamorano MCHC (RBC) [Mass/Vol] 32.8 g/dL Normal 29.9-35.2 [facility] Comment on above: Performed By: #### C BC #### Laboratory [address] [place] [address] Dr. Shonda Zamorano MCV (RBC) [Entitic vol] 92.8 fL Normal 81.0-99.0 [facility] Comment on above: Performed By: #### C BC #### Laboratory [address] [place] [address] Dr. Shonda Zamorano MONO # 0.7 103/ul Normal 0.3-0.8 [facility] Comment on above: Performed By: #### C BC #### Laboratory [address] [place] [address] Dr. Shonda Zamorano Monocytes/100 WBC (Bld) 7.2 % Normal 1.7-12.0 [facility] Comment on above: Performed By: #### C BC #### Laboratory [address] [place] [address] Dr. Shonda Zamorano NEUT # 6.5 103/ul Normal 1.4-6.5 [facility] Comment on above: Performed By: #### C BC #### Laboratory [address] [place] [address] Dr. Shonda Zamorano Neutrophils/100 WBC (Bld) 67.7 % Normal 43.0-75.0 [facility] Comment on above: Performed By: #### C BC #### Laboratory [address] [place] [address] Dr. Shonda Zamorano Platelet mean volume (Bld) [Entitic vol] 9.6 fL Normal 9.5-13.5 [facility] Comment on above: Performed By: #### C BC #### Laboratory [address] [place] [address] Dr. Shonda Zamorano PLT 304 103/ul Normal 150-450 [facility] Comment on above: Performed By: #### C BC #### Laboratory [address] [place] [address] Dr. Shonda Zamorano RBC 5.72 106/ul Critically high 4.20-5.40 [facility] Comment on above: Performed By: #### C BC #### Laboratory [address] [place] [address] Dr. Shonda Zamorano WBC 9.6 103/ul Normal 4.0-11.0 [facility] Comment on above: Performed By: #### C BC #### Laboratory [address] [place] [address] Dr. Shonda Zamorano LACTATE/LACTIC ACIDon 2021 Lactate [Moles/Vol] 1.1 mmol/L Normal 0.4-1.9 [facility] Comment on above: Performed By: #### L ACT #### Laboratory [address] [place] [address] Dr. Shonda Zamorano PROF 14(COMP METB)on 022 Albumin [Mass/Vol] 3.4 g/dL Normal 3.4-5.0 [facility] Comment on above: Performed By: #### C MP #### Laboratory [address] [place] [address] Dr. Shonda Zamorano Albumin/Globulin [Mass ratio] 0.8 {ratio} Normal [facility] Comment on above: Performed By: #### C MP #### Laboratory [address] [place] [address] Dr. Shonda Zamorano ALP [Catalytic activity/Vol] 122 U/L Critically high 46-116 [facility] Comment on above: Performed By: #### C MP #### Laboratory [address] [place], [place] [id number] Dr. Shonda Zamorano ALT [Catalytic activity/Vol] 22 U/L Normal 14-59 [facility] Comment on above: Performed By: #### C MP #### Laboratory [address] [address] [address] Shonda Zamorano Anion gap [Moles/Vol] 17.2 mmol/L Normal [facility] Comment on above: Performed By: #### C MP #### Laboratory [address] [address] [address] Shonda Zamorano AST [Catalytic activity/Vol] 11 U/L Critically low 15-37 [facility] Comment on above: Performed By: #### C MP #### Laboratory [address] [place] [address] Dr. Shonda Zamorano Bilirubin [Mass/Vol] 0.8 mg/dL Normal 0.2-1.0 [facility] Comment on above: Performed By: #### C MP #### Laboratory [address] [place] [address] Dr. Shonda Zamorano Calcium [Mass/Vol] 9.0 mg/dL Normal 8.5-10.1 [facility] Comment on above: Performed By: #### C MP #### Laboratory [address] [place] [address] Dr. Shonda Zamorano Chloride [Moles/Vol] 99 mmol/L Normal 98-107 [facility] Comment on above: Performed By: #### C MP #### Laboratory [address] [address] [address] Shonda Zamorano CO2 [Moles/Vol] 24.5 mmol/L Normal 21.0-32.0 [facility] Comment on above: Performed By: #### C MP #### Laboratory [address] [place] [address] Dr. Shonda Zamorano Creatinine [Mass/Vol] 0.60 mg/dL Normal 0.55-1.02 [facility] Comment on above: Performed By: #### C MP #### Laboratory [address] [place] [address] Dr. Shonda Zamorano EGFR-AF SLOVAK >60 Normal >=60 [facility] Comment on above: Performed By: #### C MP #### Laboratory [address] [address] [address] Shonda Zamorano EGFR-NON AF SLOVAK >60 Normal >=60 [facility] Comment on above: Performed By: #### C MP #### Laboratory [address] [address] [address] Shonda Zamorano Globulin (S) [Mass/Vol] 4.4 g/dL Normal [facility] Comment on above: Performed By: #### C MP #### Laboratory [address] [address] [address] Shonda Zamorano Glucose [Mass/Vol] 271 mg/dL Critically high 74-106 [facility] Comment on above: Performed By: #### C MP #### Laboratory [address] [address] [address] Shonda Zamorano Potassium [Moles/Vol] 3.7 mmol/L Normal 3.5-5.1 [facility] Comment on above: Performed By: #### C MP #### Laboratory [address] [address] [address] Shonda Zamorano Protein [Mass/Vol] 7.8 g/dL Normal 6.4-8.2 [facility] Comment on above: Performed By: #### C MP #### Laboratory [address] [address] [address] Shonda Zamorano Sodium [Moles/Vol] 137 mmol/L Normal 136-145 [facility] Comment on above: Performed By: #### C MP #### Laboratory [address] [address] [address] Shonda Zamorano Urea nitrogen [Mass/Vol] 9.0 mg/dL Normal 7.0-18.0 [facility] Comment on above: Performed By: #### C MP #### Laboratory [address] [address] [address] Shonda Zamorano Urea nitrogen/Creatinine [Mass ratio] 15.0 mg/mg Normal [facility] Comment on above: Performed By: #### C MP #### Laboratory [address] [place] [address] Dr. Shonda Zamorano Vital Signs Date Time Vital Sign Value Performing Clinician Facility 07-30-2024 17:00-0400 Body temperature 99.1 [degF] Rodolfo Bray DO Work Phone: [facility] 07-30-2024 17:00-0400 Diastolic blood pressure 62 mm[Hg] [facility] 07-30-2024 17:00-0400 Heart rate 77 /min Rodolfo Bray DO Work Phone: [facility] 07-30-2024 17:00-0400 Respiratory rate 22 /min Rodolfo Bray DO [facility] 07-30-2024 17:00-0400 SaO2% (BldA) [Mass fraction] 96 % Rodolfo Bray DO [facility] 07-30-2024 17:00-0400 Systolic blood pressure 140 mm[Hg] Rodolfo Bray DO [facility] 07-30-2024 04:11-0400 Body mass index (BMI) [Ratio] 58.82 kg/m2 Rodolfo Bray DO Work Phone: [facility] 07-30-2024 04:11-0400 Body weight 145.9 kg Rodolfo Bray DO [facility] 07-23-2024 14:07-0400 Body height 157.5 cm Rodolfo Bray DO [facility] 12-06-2023 17:06-0400 Body mass index (BMI) [Ratio] 58.64 kg/m2 Candida Brown CLOUD ADMINISTRATOR Work Phone: [facility] 12-06-2023 17:06-0400 Body temperature 98.4 [degF] Candida Brown CLOUD ADMINISTRATOR Work Phone: [facility] 12-06-2023 17:06-0400 Body weight 145.42 kg Candida Brown CLOUD ADMINISTRATOR Work Phone: [facility] 12-06-2023 17:06-0400 Diastolic blood pressure 76 mm[Hg] Candida Brown CLOUD ADMINISTRATOR Work Phone: [facility] 12-06-2023 17:06-0400 Heart rate 99 /min Candida Brown CLOUD ADMINISTRATOR Work Phone: [facility] 12-06-2023 17:06-0400 SaO2% (BldA) [Mass fraction] 94 % Candida Brown CLOUD ADMINISTRATOR Work Phone: [facility] 12-06-2023 17:06-0400 Systolic blood pressure 126 mm[Hg] Candida Brown CLOUD ADMINISTRATOR Work Phone: [facility] 09-20-2022 15:23-0400 Diastolic blood pressure 65 mm[Hg] Jane Ruiz DO Work Phone: [facility] 09-20-2022 15:23-0400 Systolic blood pressure 145 mm[Hg] Jane Ruiz DO Work Phone: [facility] [employer] 09-20-2022 11:15-0400 Body height 157.5 cm Jane Ruiz DO Work Phone: [facility] 09-20-2022 07:53-0400 Body temperature 97.5 [degF] Jane Ruiz DO Work Phone: [facility] 09-20-2022 07:53-0400 Heart rate 91 /min Jane Ruiz DO Work Phone: [facility] 09-20-2022 07:53-0400 Respiratory rate 17 /min Jane Ruiz DO Work Phone: [facility] 09-20-2022 07:53-0400 SaO2% (BldA) [Mass fraction] 95 % Jane Ruiz DO Work Phone: [facility] [employer] 09-16-2022 10:00-0400 Body mass index (BMI) [Ratio] 51.6 kg/m2 Jane Ruiz DO Work Phone: [facility] [employer] 09-16-2022 10:00-0400 Body weight 127.96 kg Jane Ruiz DO Work Phone: [facility] [employer] Encounters Encounter Date Encounter Type Care Provider Facility Start: 08-31-2024 End: 08-31-2024 ambulatory RODOLFO CROWDER [facility] Start: 08-25-2024 End: 08-25-2024 ambulatory ANANTH APARICIO [facility] Start: 07-25-2024 End: 07-30-2024 Clinisync Result Encounter Generic External Data Provider [facility] External [facility] Unsolicited Start: 07-25-2024 End: 07-30-2024 Clinisync Result Encounter Generic External Data Provider [facility] External Department Unsolicited Start: 07-19-2024 End: 07-30-2024 Evaluation and management of inpatient Rodolfo Bray DO Work Phone: [facility] Start: 07-19-2024 End: 07-19-2024 Clinisync Result Encounter Generic External Data Provider [facility] External Department Unsolicited Start: 07-19-2024 End: 07-19-2024 Clinisync Result Encounter Generic External Data Provider [facility] External Department Unsolicited Start: 07-19-2024 End: 07-19-2024 ambulatory [facility] Work Phone: Start: 07-19-2024 End: 07-19-2024 Departed Referred Chuck Julian DO Work Phone: [facility] Start: 06-07-2024 End: 06-07-2024 Refill Candida Brown CLOUD ADMINISTRATOR Work Phone: [facility] Comment on above: Type 2 diabetes macho itus without complication, with long-term current use of insulin; Essential hypertension (CMS/HCC) Essential hypertensi on (CMS/HCC) (Primary Dx); Chronic kidney disease, stage 3b (HCC) ([facility]); Type 2 diabetes mellitus with insulin therapy ([facility]); Mixed hyperlipidemia ([facility]); Hypomagnesemia Start: 06-06-2024 End: 06-07-2024 Refill Candida Aichholz CLOUD ADMINISTRATOR Work Phone: [facility] Comment on above: Gastroesophageal ref lux disease without esophagitis; Type 2 diabetes mellitus without complication, with long-term current use of insulin Start: 05-21-2024 End: 05-22-2024 Refill Candida Aichholz CLOUD ADMINISTRATOR Work Phone: [facility] Comment on above: Moderate persistent asthma with acute exacerbation in adult ([facility]) Start: 05-11-2024 End: 05-15-2024 Refill Candida Aichholz CLOUD ADMINISTRATOR Work Phone: [facility] Comment on above: Essential hypertensi on ([facility]) Start: 04-09-2024 End: 04-09-2024 Refill Candida Aichholz CLOUD ADMINISTRATOR Work Phone: [facility] Comment on above: Type 2 diabetes macho itus without complication, with long-term current use of insulin ([facility]) Start: 04-05-2024 End: 04-05-2024 Refill Candida Aichholz CLOUD ADMINISTRATOR Work Phone: [facility] Comment on above: Anxiety and depressi on ([facility]); Moderate persistent asthma with acute exacerbation in adult ([facility]) Start: 03-05-2024 End: 03-05-2024 Refill Candida Aichholz CLOUD ADMINISTRATOR Work Phone: [facility] Comment on above: Type 2 diabetes macho itus without complication, with long-term current use of insulin ([facility]); Essential hypertension ([facility]) Start: 02-22-2024 End: 02-22-2024 Refill Candida Aichholz CLOUD ADMINISTRATOR Work Phone: [facility] Comment on above: Cutaneous abscess of abdominal wall (Primary Dx) Start: 02-06-2024 End: 02-06-2024 Refill Candidaeloisa Brown CLOUD ADMINISTRATOR Work Phone: [facility] Comment on above: Essential hypertensi on ([facility]) Start: 02-01-2024 End: 02-01-2024 Refill Candida Kevin CLOUD ADMINISTRATOR Work Phone: [facility] Comment on above: Moderate persistent asthma with acute exacerbation in adult ([facility]); Chronic obstructive pulmonary disease, unspecified COPD type ([facility]); Severe asthma, unspecified whether complicated, unspecified whether persistent ([facility]) Start: 12-26-2023 End: 12-26-2023 Refill Candidaeloisa Brown CLOUD ADMINISTRATOR Work Phone: [facility] Comment on above: Chronic obstructive pulmonary disease, unspecified COPD type ([facility]); Severe asthma, unspecified whether complicated, unspecified whether persistent ([facility]); Moderate persistent asthma with acute exacerbation in adult ([facility]) Start: 12-08-2023 End: 12-08-2023 Refill Candidaeloisa Brown CLOUD ADMINISTRATOR Work Phone: [facility] Comment on above: Type 2 diabetes macho itus with insulin therapy ([facility]); Hypoglycemia Start: 12-06-2023 End: 12-06-2023 Office outpatient visit 25 minutes Candida Brown NP Work Phone: [facility] Comment on above: Type 2 diabetes macho itus with insulin therapy ([facility]) (Primary Dx); Type 2 diabetes mellitus with diabetic chronic kidney disease ([facility]); Chronic kidney disease, stage 3b ([facility]) ([facility]); Morbid (severe) obesity due to excess calories ([facility]); Body mass index (BMI) 50.0-59.9, adult ([facility]); Tobacco user; Needs flu shot; Candidiasis of breast; Moderate persistent asthma with acute exacerbation in adult ([facility]); Hypoglycemia Start: 12-06-2023 End: 12-06-2023 Bamboo flowsheet Candida Brown CLOUD ADMINISTRATOR Work Phone: [facility] Start: 12-06-2023 End: 12-06-2023 Bamboo flowsheet Candida Aichholz CLOUD ADMINISTRATOR Work Phone: [facility] Start: 12-06-2023 End: 12-06-2023 Refill Candida Aichholz CLOUD ADMINISTRATOR Work Phone: [facility] Comment on above: Candidiasis of breas t Start: 11-17-2023 End: 11-17-2023 Refill Candida Aichholz CLOUD ADMINISTRATOR Work Phone: [facility] Comment on above: Moderate persistent asthma with acute exacerbation in adult ([facility]) Start: 11-06-2023 End: 11-06-2023 Refill Candida Aichholz CLOUD ADMINISTRATOR Work Phone: [facility] Comment on above: Essential hypertensi on ([facility]) Start: 10-27-2023 End: 10-27-2023 Refill Candida Aichholz CLOUD ADMINISTRATOR Work Phone: [facility] Start: 10-20-2023 End: 10-21-2023 Refill Candida Aichholz CLOUD ADMINISTRATOR Work Phone: [facility] Comment on above: Type 2 diabetes macho itus without complication, with long-term current use of insulin ([facility]) Start: 07-17-2023 Patient encounter procedure Yuridia Brown CLOUD ADMINISTRATOR Work Phone: [facility] Start: 07-17-2023 End: 07-17-2023 ambulatory CANDIDA AICHHOLZ Not Available Start: 03-20-2023 End: 03-20-2023 ambulatory CANDIDA AICHHOLZ Not Available Start: 01-31-2023 End: 02-01-2023 ambulatory ALISIA CUELLAR [facility] Start: 01-16-2023 End: 01-17-2023 ambulatory CANDIDA Susanna [facility] Start: 01-02-2023 End: 01-03-2023 ambulatory CANDIDA [facility] Start: 12-19-2022 End: 12-20-2022 ambulatory CANDIDA Mullins [facility] Start: 12-06-2022 End: 12-07-2022 ambulatory CANDIDA Mullins [facility] Start: 11-15-2022 End: 11-16-2022 ambulatory CANDIDA Mullins [facility] Start: 10-25-2022 End: 10-26-2022 ambulatory CANDIDA Mullins [facility] Start: 10-22-2022 End: 10-22-2022 ambulatory [facility] Work Phone: Start: 10-22-2022 End: 10-22-2022 Departed Referred [facility] [place] Work Phone: Start: 09-02-2022 End: 09-20-2022 Evaluation and management of inpatient Jane Timothy Ruiz DO Work Phone: [address] Ortho/Med Surg Start: 05-06-2022 End: 05-07-2022 ambulatory LORRAINE BROWN Facility:[facility] Start: 07-02-2021 End: 07-02-[address] CHUCK JULIAN . Facility: Procedures Date Procedure Procedure Detail Performing Clinician Start: 07-30-2024 Radiologic exam abdomen 1 view Alisia Cuellar MD Work Phone: Start: 07-30-2024 Glucose blood reagent strip Alisia Cuellar MD Work Phone: Start: 07-30-2024 Glucose blood reagent strip Alisia Cuellar MD Work Phone: Start: 07-30-2024 End: 07-30-2024 Assay of magnesium Janak Shaffer MD Work Phone: Start: 07-30-2024 BASIC METABOLIC PANEL W/ REFLEX TO MG FOR LOW K Janak Shaffer MD Work Phone: Start: 07-30-2024 Glucose blood reagent strip Alisia Cuellar MD Work Phone: Start: 07-29-2024 Glucose blood reagent strip Alisia Cuellar MD Work Phone: Start: 07-29-2024 ARTERIAL BLOOD GAS, POC Alisia cyr MD Work Phone: Start: 07-29-2024 Gluc bld gluc mntr dev cleared fda spec home use Alisia Cuellar MD Work Phone: Start: 07-29-2024 LACTIC ACID,POINT OF CARE Alisia madsen MD Work Phone: Start: 07-29-2024 Glucose blood reagent strip Alisia Cuellar MD Work Phone: Start: 07-29-2024 Glucose blood reagent strip Alisia Cuellar MD Work Phone: Start: 07-29-2024 Radiologic exam chest single view Kelly Eastman MD Work Phone: Start: 07-29-2024 BASIC METABOLIC PANEL W/ REFLEX TO MG FOR LOW K Janak Shaffer MD Work Phone: Start: 07-29-2024 BLOOD BANK SPECIMEN Alisia Acuña Work Phone: Start: 07-29-2024 C-reactive protein Janak Shaffer MD Work Phone: Start: 07-29-2024 Calcium ionized Janak Shaffer MD Work Phone: Start: 07-29-2024 Glucose blood reagent strip Alisia Cuellar MD Work Phone: Start: 07-28-2024 Glucose blood reagent strip Alisia Cuellar MD Work Phone: Start: 07-28-2024 Glucose blood reagent strip Alisia Cuellar MD Work Phone: Start: 07-28-2024 Ecg routine ecg w/least 12 lds trcg only w/o i&r Ilan D Martinez DO Work Phone: Start: 07-28-2024 Glucose blood reagent strip Alisia Cuellar MD Work Phone: Start: 07-28-2024 Glucose blood reagent strip Alisia Cuellar MD Work Phone: Start: 07-28-2024 ALEXANDRIA Eastman MD Work Phone: Start: 07-28-2024 ARTERIAL BLOOD GAS, POC Alisia cyr MD Work Phone: Start: 07-28-2024 Gluc bld gluc mntr dev cleared fda spec home use Alisia Cuellar MD Work Phone: Start: 07-28-2024 LACTIC ACID,POINT OF CARE Alisia madsen MD Work Phone: Start: 07-28-2024 Radiologic exam chest single view Britney Alcocer DO Work Phone: Start: 07-28-2024 BASIC METABOLIC PANEL W/ REFLEX TO MG FOR LOW K Britney Alcocer DO Work Phone: Start: 07-28-2024 C-reactive protein Britney Alcocer DO Work Phone: Start: 07-28-2024 End: 07-28-2024 Calcium ionized Britney Alcocer DO Work Phone: Start: 07-28-2024 Glucose blood reagent strip Alisia Cuellar MD Work Phone: Start: 07-27-2024 Glucose blood reagent strip Alisia Cuellar MD Work Phone: Start: 07-27-2024 Glucose blood reagent strip Alisia Cuellar MD Work Phone: Start: 07-27-2024 Antibody screen Rodolfo Bray DO Work Phone: Start: 07-27-2024 ARTERIAL BLOOD GAS, POC Alisia cyr MD Work Phone: Start: 07-27-2024 LACTIC ACID,POINT OF CARE Alisia madsen MD Work Phone: Start: 07-27-2024 Radiologic exam chest single view Britney Alcocer DO Work Phone: Start: 07-27-2024 BASIC METABOLIC PANEL W/ REFLEX TO MG FOR LOW K Britney Alcocer DO Work Phone: Start: 07-27-2024 End: 07-27-2024 Calcium ionized Britney Alcocer DO Work Phone: Start: 07-26-2024 Glucose blood reagent strip Alisia Cuellar MD Work Phone: Start: 07-26-2024 Glucose blood reagent strip Alisia Cuellar MD Work Phone: Start: 07-26-2024 Basic metabolic panel calcium total Barbara Dickerson SELLING SPECIALIST - [employer] Work Phone: Start: 07-26-2024 Radiologic exam chest single view Barbara Dickerson SELLING SPECIALIST - [employer] Work Phone: Start: 07-26-2024 ARTERIAL BLOOD GAS, POC Alisia cyr MD Work Phone: Start: 07-26-2024 End: 07-26-2024 Gluc bld gluc mntr dev cleared fda spec home use Alisia Cuellar MD Work Phone: Start: 07-26-2024 End: 07-26-2024 DECUBITUS ULCER DEBRIDEMENT REPAIR Lizzy Whalen MD Work Phone: Start: 07-26-2024 Glucose blood reagent strip Alisia Cuellar MD Work Phone: Start: 07-26-2024 End: 07-26-2024 Glucose blood reagent strip Alisia Cuellar MD Work Phone: Start: 07-26-2024 End: 07-26-2024 Glucose blood reagent strip Alisia Cuellar MD Work Phone: Start: 07-26-2024 End: 07-26-2024 Blood count hemoglobin Nichole R Praveen DO Work Phone: Start: 07-26-2024 Radiologic exam chest single view Britney Alcocer DO Work Phone: Start: 07-26-2024 ARTERIAL BLOOD GAS, POC Alisia cyr MD Work Phone: Start: 07-26-2024 End: 07-26-2024 Gluc bld gluc mntr dev cleared fda spec home use Alisia Cuellar MD Work Phone: Start: 07-26-2024 LACTIC ACID,POINT OF CARE Alisia madsen MD Work Phone: Start: 07-26-2024 End: 07-26-2024 Transfusion of packed red blood cells Nichole Aguirre Praveen DO Work Phone: Start: 07-26-2024 BASIC METABOLIC PANEL W/ REFLEX TO MG FOR LOW K Britney Alcocer DO Work Phone: Start: 07-26-2024 End: 07-26-2024 Calcium ionized Britney Alcocer DO Work Phone: Start: 07-26-2024 End: 07-26-2024 Glucose blood reagent strip Alisia Cuellar MD Work Phone: Start: 07-26-2024 Glucose blood reagent strip Alisia Cuellar MD Work Phone: Start: 07-25-2024 Glucose blood reagent strip Alisia Cuellar MD Work Phone: Start: 07-25-2024 End: 07-25-2024 Glucose blood reagent strip Alisia Cuellar MD Work Phone: Start: 07-25-2024 End: 07-25-2024 Glucose blood reagent strip Alisia Cuellar MD Work Phone: Start: 07-25-2024 End: 07-25-2024 Glucose blood reagent strip Alisia Cuellar MD Work Phone: Start: 07-25-2024 Glucose blood reagent strip Alisia Cuellar MD Work Phone: Start: 07-25-2024 Glucose blood reagent strip Alisia Cuellar MD Work Phone: Start: 07-25-2024 End: 07-25-2024 Glucose blood reagent strip Alisia Cuellar MD Work Phone: Start: 07-25-2024 End: 07-25-2024 Glucose blood reagent strip Alisia Cuellar MD Work Phone: Start: 07-25-2024 Ct thorax w/contrast material Juan C A Buffkin DO Work Phone: Start: 07-25-2024 Glucose blood reagent strip Alisia Cuellar MD Work Phone: Start: 07-25-2024 Culture bacterial blood aerobic w/id isolates Juan C A Buffkin DO Work Phone: Start: 07-25-2024 MHPT CULT, BLOOD Generic External Melvin a Provider Start: 07-25-2024 CULTURE, BLOOD 1 Juan C A Buffkin DO Work Phone: Start: 07-25-2024 End: 07-25-2024 Glucose blood reagent strip Alisia Cuellar MD Work Phone: Start: 07-25-2024 Glucose blood reagent strip Alisia Cuellar MD Work Phone: Start: 07-25-2024 Glucose blood reagent strip Alisia Cuellar MD Work Phone: Start: 07-25-2024 ARTERIAL BLOOD GAS, POC Alisia cyr MD Work Phone: Start: 07-25-2024 LACTIC ACID,POINT OF CARE Alisia madsen MD Work Phone: Start: 07-25-2024 BASIC METABOLIC PANEL W/ REFLEX TO MG FOR LOW K Ilan D Martinez DO Work Phone: Start: 07-25-2024 End: 07-25-2024 Calcium ionized Ilan D Martinez DO Work Phone: Start: 07-25-2024 Radiologic exam chest single view Britney Leodan DO Work Phone: Start: 07-25-2024 End: 07-25-2024 Glucose blood reagent strip Alisia Cuellar MD Work Phone: Start: 07-25-2024 End: 07-25-2024 Glucose blood reagent elaine Cuellar MD Work Phone: Start: 07-25-2024 Glucose blood reagent strip Alisia Cuellar MD Work Phone: Start: 07-24-2024 Glucose blood reagent strip Alisia Cuellar MD Work Phone: Start: 07-24-2024 Radiologic exam chest single view Nichole Morton DO Work Phone: Start: 07-24-2024 End: 07-24-2024 Basic metabolic panel calcium total Nichole Morton DO Work Phone: Start: 07-24-2024 End: 07-24-2024 Glucose blood reagent strip Alisia Cuellar MD Work Phone: Start: 07-24-2024 End: 07-24-2024 Glucose blood reagent strip Alisia Cuellar MD Work Phone: Start: 07-24-2024 End: 07-24-2024 Glucose blood reagent elaine Cuellar MD Work Phone: Start: 07-24-2024 Glucose blood reagent strip Alisia Cuellar MD Work Phone: Start: 07-24-2024 End: 07-24-2024 Glucose blood reagent strip Alisia Cuellar MD Work Phone: Start: 07-24-2024 Blood typing serologic abo Nichole Morton DO Work Phone: Start: 07-24-2024 Glucose blood reagent elaine Cuellar MD Work Phone: Start: 07-24-2024 ARTERIAL BLOOD GAS, POC Alisia cyr MD Work Phone: Start: 07-24-2024 LACTIC ACID,POINT OF CARE Alisia madsen MD Work Phone: Start: 07-24-2024 BASIC METABOLIC PANEL W/ REFLEX TO MG FOR LOW K Ilan D Martinez DO Work Phone: Start: 07-24-2024 End: 07-24-2024 Calcium ionized Ilan D Martinez DO Work Phone: Start: 07-24-2024 Radiologic exam chest single view Britney Leodan DO Work Phone: Start: 07-24-2024 Glucose blood reagent strip Alisia Cuellar MD Work Phone: Start: 07-23-2024 Glucose blood reagent strip Alisia Cuellar MD Work Phone: Start: 07-23-2024 Glucose blood reagent strip Alisia Cuellar MD Work Phone: Start: 07-23-2024 Glucose blood reagent strip Alisia Cuellar MD Work Phone: Start: 07-23-2024 ARTERIAL BLOOD GAS, POC Alisia cyr MD Work Phone: Start: 07-23-2024 Gluc bld gluc mntr dev cleared fda spec home use Alisia Cuellar MD Work Phone: Start: 07-23-2024 LACTIC ACID,POINT OF CARE Alisia madsen MD Work Phone: Start: 07-23-2024 Radiologic exam chest single view Britney Leodan DO Work Phone: Start: 07-23-2024 BASIC METABOLIC PANEL W/ REFLEX TO MG FOR LOW K Ilan D Martinez DO Work Phone: Start: 07-23-2024 Calcium ionized Ilan D Martinez DO Work Phone: Start: 07-23-2024 End: 07-23-2024 Glucose blood reagent strip Alisia Cuellar MD Work Phone: Start: 07-23-2024 Transfusion of fresh frozen plasma Nichole Morton DO Work Phone: Start: 07-23-2024 PREPARE PLASMA Nichole Morton DO Work Phone: Start: 07-23-2024 POC GLOBAL HEMOSTASIS TEG W/LYSIS Alisia Cuellar MD Work Phone: Start: 07-23-2024 Glucose blood reagent strip Alisia Cuellar MD Work Phone: Start: 07-22-2024 Basic metabolic panel calcium total Juan C A Buffkin DO Work Phone: Start: 07-22-2024 End: 07-22-2024 Dbrdmt subcutaneous tissue ea addl 20 sq cm Caitlin Briseno MD Work Phone: Start: 07-22-2024 Glucose blood reagent strip Alisia Cuellar MD Work Phone: Start: 07-22-2024 Glucose blood reagent strip Alisia Cuellar MD Work Phone: Start: 07-22-2024 ARTERIAL BLOOD GAS, POC Alisia cyr MD Work Phone: Start: 07-22-2024 LACTIC ACID,POINT OF CARE Alisia madsen MD Work Phone: Start: 07-22-2024 BASIC METABOLIC PANEL W/ REFLEX TO MG FOR LOW K Kelly Eastman MD Work Phone: Start: 07-22-2024 End: 07-22-2024 Calcium ionized Kelly Eastman MD Work Phone: Start: 07-22-2024 Radiologic exam chest single view Britney Leodan DO Work Phone: Start: 07-22-2024 Glucose blood reagent strip Alisia Cuellar MD Work Phone: Start: 07-21-2024 Glucose blood reagent strip Alisia Cuellar MD Work Phone: Start: 07-21-2024 Glucose blood reagent strip Alisia Cuellar MD Work Phone: Start: 07-21-2024 Ct abdomen & pelvis w/contrast material Vu Gao MD Work Phone: Start: 07-21-2024 Glucose blood reagent strip Alisia Cuellar MD Work Phone: Start: 07-21-2024 Glucose blood reagent strip Alisia Cuellar MD Work Phone: Start: 07-21-2024 BASIC METABOLIC PANEL W/ REFLEX TO MG FOR LOW K Alisia Cuellar MD Work Phone: Start: 07-21-2024 End: 07-21-2024 Calcium ionized Alisia Acuña Work Phone: Start: 07-21-2024 Drug screen quantitative vancomycin Alisia Cuellar MD Work Phone: Start: 07-21-2024 ARTERIAL BLOOD GAS, POC Alisia cyr MD Work Phone: Start: 07-21-2024 LACTIC ACID,POINT OF CARE Alisia madsen MD Work Phone: Start: 07-21-2024 Radiologic exam chest single view Ilan D Martinez DO Work Phone: Start: 07-21-2024 Glucose blood reagent strip Alisia Cuellar MD Work Phone: Start: 07-20-2024 ARTERIAL BLOOD GAS, POC Alisia cyr MD Work Phone: Start: 07-20-2024 Gluc bld gluc mntr dev cleared fda spec home use Alisia Cuellar MD Work Phone: Start: 07-20-2024 LACTIC ACID,POINT OF CARE Alisia madsne MD Work Phone: Start: 07-20-2024 End: 07-20-2024 Comprehensive metabolic panel Alisia Cuellar MD Work Phone: Start: 07-20-2024 PREVIOUS SPECIMEN Alisia Acuña Work Phone: Start: 07-20-2024 Glucose blood reagent strip Alisia Cuellar MD Work Phone: Start: 07-20-2024 End: 07-20-2024 LEG DEBRIDEMENT INCISION AND DRAINAGE Janak Shaffer MD Work Phone: Start: 07-20-2024 Echo tthrc r-t 2d w/wom-mode compl spec&colr d Jenae Yue [place] DO Work Phone: Start: 07-20-2024 Glucose blood reagent strip Alisia Cuellar MD Work Phone: Start: 07-20-2024 ARTERIAL BLOOD GAS, POC Alisia cyr MD Work Phone: Start: 07-20-2024 LACTIC ACID,POINT OF CARE Alisia madsen MD Work Phone: Start: 07-20-2024 Ecg routine ecg w/least 12 lds i&r only Alessio Rea MD Work Phone: Start: 07-20-2024 End: 07-20-2024 Creatine kinase total Alisia Cuellar MD Work Phone: Start: 07-20-2024 MYOGLOBIN, BLOOD Alisia Acuña Work Phone: Start: 07-20-2024 PREVIOUS SPECIMEN Alisia Acuña Work Phone: Start: 07-20-2024 Radiologic exam chest single view Kelly Eastman MD Work Phone: Start: 07-20-2024 Insj non-tunneled central venous cath age 6 yr/> Alessio Rea MD Work Phone: Start: 07-20-2024 End: 07-20-2024 Transfusion of packed red blood cells Kelly Eastman MD Work Phone: Start: 07-20-2024 ARTERIAL BLOOD GAS, POC Alisia cyr MD Work Phone: Start: 07-20-2024 LACTIC ACID,POINT OF CARE Alisia madsen MD Work Phone: Start: 07-20-2024 ARTERIAL BLOOD GAS, POC Alisia cyr MD Work Phone: Start: 07-20-2024 Gluc bld gluc mntr dev cleared fda spec home use Alisia Cuellar MD Work Phone: Start: 07-20-2024 LACTIC ACID,POINT OF CARE Alisia madsen MD Work Phone: Start: 07-20-2024 NOTIFICATION PANEL, POC Alisia cyr MD Work Phone: Start: 07-20-2024 Radiologic exam chest single view Ilan D Martinez DO Work Phone: Start: 07-20-2024 Urinalysis microscopic only Alisia Cuellar MD Work Phone: Start: 07-20-2024 Urnls dip stick/tablet rgnt auto w/o microscopy Alisia Cuellar MD Work Phone: Start: 07-20-2024 BASIC METABOLIC PANEL W/ REFLEX TO MG FOR LOW K Alisia Cuellar MD Work Phone: Start: 07-20-2024 Calcium ionized Alisia Acuña Work Phone: Start: 07-20-2024 Drug screen quantitative vancomycin Alisia Cuellar MD Work Phone: Start: 07-20-2024 End: 07-20-2024 ARTERIAL BLOOD GAS, POC Alisia cyr MD Work Phone: Start: 07-20-2024 End: 07-20-2024 Gluc bld gluc mntr dev cleared fda spec home use Alisia Cuellar MD Work Phone: Start: 07-20-2024 End: 07-20-2024 LACTIC ACID,POINT OF CARE Alisia madsen MD Work Phone: Start: 07-20-2024 NOTIFICATION PANEL, POC Alisia cyr MD Work Phone: Start: 07-20-2024 Radiologic exam abdomen 1 view Ilan D Martinez DO Work Phone: Start: 07-20-2024 Radiologic exam chest single view Ilan D Martinez DO Work Phone: Start: 07-19-2024 End: 07-19-2024 PERINEAL INCISION AND DRAINAGE Alisia Cuellar MD Work Phone: Start: 07-19-2024 Blood typing serologic abo Stephanie Martin PA-C Work Phone: Start: 07-19-2024 Ecg routine ecg w/least 12 lds i&r only Stephanie Deluna Lou PA-C Work Phone: Start: 07-19-2024 Radiologic exam chest single view Stephanie Carterlung PA-C Work Phone: Start: 07-19-2024 End: 07-19-2024 Basic metabolic panel calcium total Silvano Hopson MD Work Phone: Start: 07-19-2024 C-reactive protein Silvano Hopson MD Work Phone: Start: 07-19-2024 Culture fngi mold/yeast prsmptv oth xcpt blood Alisia Cuellar MD Work Phone: Start: 07-19-2024 URINE CULTURE - [facility] Generic External Da ta Provider Start: 07-17-2023 Mammography Candida Brown CLOUD ADMINISTRATOR Work Phone: Start: 09-20-2022 Glucose blood reagent strip Lisset Downs MD Work Phone: Start: 09-20-2022 Glucose blood reagent strip Lisset Downs MD Work Phone: Start: 09-20-2022 BASIC METABOLIC PANEL W/ REFLEX TO MG FOR LOW K Rodolfo Taylor MD Work Phone: Start: 09-20-2022 Blood count complete auto&auto difrntl wbc Srinivas Retana MD Work Phone: Start: 09-19-2022 Glucose blood reagent strip Lisset Downs MD Work Phone: Start: 09-19-2022 Glucose blood reagent strip Lisset Downs MD Work Phone: Start: 09-19-2022 Glucose blood reagent strip Lisset Downs MD Work Phone: Start: 09-19-2022 Radiologic exam chest single view Ana Antonio MD Work Phone: Start: 09-19-2022 WOUND OSTOMY EVAL AND TREAT Ana Antonio MD Work Phone: Start: 09-19-2022 End: 09-19-2022 Assay of magnesium Rodolfo Taylor MD Work Phone: Start: 09-19-2022 BASIC METABOLIC PANEL W/ REFLEX TO MG FOR LOW K Rodolfo Taylor MD Work Phone: Start: 09-18-2022 Glucose blood reagent strip Lisset Downs MD Work Phone: Start: 09-18-2022 Glucose blood reagent strip Lisset Downs MD Work Phone: Start: 09-18-2022 Glucose blood reagent strip Lisset Downs MD Work Phone: Start: 09-18-2022 End: 09-18-2022 Assay of magnesium Rodolfo Taylor MD Work Phone: Start: 09-18-2022 BASIC METABOLIC PANEL W/ REFLEX TO MG FOR LOW K Rodolfo Taylor MD Work Phone: Start: 09-17-2022 Glucose blood reagent strip Lisset Downs MD Work Phone: Start: 09-17-2022 Glucose blood reagent strip Lisset Downs MD Work Phone: Start: 09-17-2022 Glucose blood reagent strip Lisset Downs MD Work Phone: Start: 09-17-2022 End: 09-17-2022 Assay of magnesium Rodolfo Taylor MD Work Phone: Start: 09-17-2022 BASIC METABOLIC PANEL W/ REFLEX TO MG FOR LOW K Rodolfo Taylor MD Work Phone: Start: 09-17-2022 C-reactive protein Rodolfo Taylor MD Work Phone: Start: 09-16-2022 Glucose blood reagent strip Nader Smith MD Work Phone: Start: 09-16-2022 Glucose blood reagent strip Nader Smith MD Work Phone: Start: 09-16-2022 Glucose blood reagent strip Nader Smith MD Work Phone: Start: 09-16-2022 BASIC METABOLIC PANEL W/ REFLEX TO MG FOR LOW K Rodolfo Taylor MD Work Phone: Start: 09-16-2022 Blood count complete auto&auto difrntl wbc Iron Gore MD Work Phone: Start: 09-15-2022 Glucose blood reagent strip Nader Smith MD Work Phone: Start: 09-15-2022 Glucose blood reagent strip Nader Smith MD Work Phone: Start: 09-15-2022 Glucose blood reagent strip Nader Smith MD Work Phone: Start: 09-15-2022 Assay of magnesium Iron Gore MD Work Phone: Start: 09-15-2022 Glucose blood reagent strip Nader Smith MD Work Phone: Start: 09-14-2022 Glucose blood reagent strip Nader Smith MD Work Phone: Start: 09-14-2022 Basic metabolic panel calcium total Jose Raul Harvey MD Work Phone: Start: 09-14-2022 Glucose blood reagent strip Nader Smith MD Work Phone: Start: 09-14-2022 ALEXANDRIA Goetz DO Work Phone: Start: 09-14-2022 Glucose blood reagent strip Nader Smith MD Work Phone: Start: 09-14-2022 ARTERIAL BLOOD GAS, POC Nader Smith MD Work Phone: Start: 09-14-2022 Gluc bld gluc mntr dev cleared fda spec home use Nader Smith MD Work Phone: Start: 09-14-2022 BASIC METABOLIC PANEL W/ REFLEX TO MG FOR LOW K Dhayananth Kaity Forrester MD Work Phone: Start: 09-14-2022 Blood count complete auto&auto difrntl wbc Iron Gore MD Work Phone: Start: 09-14-2022 Glucose blood reagent strip Nader Smith MD Work Phone: Start: 09-13-2022 Glucose blood reagent strip Nader Smith MD Work Phone: Start: 09-13-2022 Glucose blood reagent strip Nader Smith MD Work Phone: Start: 09-13-2022 Glucose blood reagent strip Nader Smith MD Work Phone: Start: 09-13-2022 Assay of triglycerides Rodolfo Cordoba DO Work Phone: Start: 09-13-2022 BASIC METABOLIC PANEL W/ REFLEX TO MG FOR LOW K Dhayananth Kaity Forrester MD Work Phone: Start: 09-13-2022 ARTERIAL BLOOD GAS, POC Nader Smith MD Work Phone: Start: 09-13-2022 CALCIUM, IONIC (POC) Nader Smith MD Work Phone: Start: 09-13-2022 CREATININE W/GFR POINT OF CARE Nader Smith MD Work Phone: Start: 09-13-2022 ELECTROLYTES PLUS Nader Smith MD Work Phone: Start: 09-13-2022 Gluc bld gluc mntr dev cleared fda spec home use Nader Smith MD Work Phone: Start: 09-13-2022 LACTIC ACID,POINT OF CARE Nader Smith MD Work Phone: Start: 09-13-2022 Glucose blood reagent strip Nader Smith MD Work Phone: Start: 09-12-2022 Glucose blood reagent strip Nader Smith MD Work Phone: Start: 09-12-2022 ELECTROLYTE PANEL W/ REFLEX TO MG FOR LOW K Jose Raul Harvey MD Work Phone: Start: 09-12-2022 Glucose blood reagent strip Nader Smith MD Work Phone: Start: 09-12-2022 Glucose blood reagent strip Nader Smith MD Work Phone: Start: 09-12-2022 BASIC METABOLIC PANEL W/ REFLEX TO MG FOR LOW K Bautista Forrester MD Work Phone: Start: 09-12-2022 ARTERIAL BLOOD GAS, POC Nader Smith MD Work Phone: Start: 09-12-2022 End: 09-12-2022 Gluc bld gluc mntr dev cleared fda spec home use Nader Smith MD Work Phone: Start: 09-12-2022 Glucose blood reagent strip Nader Smith MD Work Phone: Start: 09-11-2022 Glucose blood reagent strip Nader Smith MD Work Phone: Start: 09-11-2022 ELECTROLYTE PANEL W/ REFLEX TO MG FOR LOW K Gurdeep Maldonado MD Work Phone: Start: 09-11-2022 Glucose blood reagent strip Nader Smith MD Work Phone: Start: 09-11-2022 Glucose blood reagent strip Nader Smith MD Work Phone: Start: 09-11-2022 Glucose blood reagent strip Nader Smith MD Work Phone: Start: 09-11-2022 End: 09-11-2022 Glucose blood reagent strip Nader Smith MD Work Phone: Start: 09-11-2022 Glucose blood reagent strip Nader Smith MD Work Phone: Start: 09-11-2022 End: 09-11-2022 Glucose blood reagent strip Nader Smith MD Work Phone: Start: 09-11-2022 ARTERIAL BLOOD GAS, POC Nader Smith MD Work Phone: Start: 09-11-2022 NOTIFICATION PANEL, POC Nader Smith MD Work Phone: Start: 09-11-2022 End: 09-11-2022 Basic metabolic panel calcium total Fady Robles MD Work Phone: Start: 09-11-2022 Virus centrifuge enhncd id imfluor stain ea Nuvia T Dora MILLAN Work Phone: Start: 09-10-2022 Glucose blood reagent strip Nader Smith MD Work Phone: Start: 09-10-2022 BASIC METABOLIC PANEL W/ REFLEX TO MG FOR LOW K Gurdeep Maldonado MD Work Phone: Start: 09-10-2022 Glucose blood reagent strip Nader Smith MD Work Phone: Start: 09-10-2022 Glucose blood reagent strip Nader Smith MD Work Phone: Start: 09-10-2022 End: 09-10-2022 Basic metabolic panel calcium total Fady Robles MD Work Phone: Start: 09-10-2022 Hepatic function panel Fady guardado MD Work Phone: Start: 09-10-2022 ARTERIAL BLOOD GAS, POC Nader Smith MD Work Phone: Start: 09-10-2022 Glucose blood reagent strip Nader Smith MD Work Phone: Start: 09-09-2022 Glucose blood reagent strip Nader Smith MD Work Phone: Start: 09-09-2022 Ct head/brain w/o contrast material Fady Robles MD Work Phone: Start: 09-09-2022 Ct thorax w/o contrast material Imelda Lomaschie Work Phone: Start: 09-09-2022 Glucose blood reagent strip Nader Smith MD Work Phone: Start: 09-09-2022 Radiologic exam chest single view Fady Robles MD Work Phone: Start: 09-09-2022 Glucose blood reagent strip Nader Smith MD Work Phone: Start: 09-09-2022 Basic metabolic panel calcium total Fady Robles MD Work Phone: Start: 09-09-2022 Glucose blood reagent strip Nader Smith MD Work Phone: Start: 09-08-2022 Glucose blood reagent strip Nader Smith MD Work Phone: Start: 09-08-2022 Glucose blood reagent strip Nader Smith MD Work Phone: Start: 09-08-2022 Glucose blood reagent strip Nader Smith MD Work Phone: Start: 09-08-2022 BASIC METABOLIC PANEL W/ REFLEX TO MG FOR LOW K Fady Jurado MD Work Phone: Start: 09-08-2022 Blood count complete auto&auto difrntl wbc Fady Jurado MD Work Phone: Start: 09-08-2022 ARTERIAL BLOOD GAS, POC Nader Smith MD Work Phone: Start: 09-08-2022 Gluc bld gluc mntr dev cleared fda spec home use Nader Smith MD Work Phone: Start: 09-08-2022 Glucose blood reagent strip Nader Smith MD Work Phone: Start: 09-07-2022 Glucose blood reagent strip Nader Smith MD Work Phone: Start: 09-07-2022 Glucose blood reagent strip Nader Smith MD Work Phone: Start: 09-07-2022 Glucose blood reagent strip Nader Smith MD Work Phone: Start: 09-07-2022 BASIC METABOLIC PANEL W/ REFLEX TO MG FOR LOW K Fady Jurado MD Work Phone: Start: 09-07-2022 End: 09-07-2022 Blood count complete auto&auto difrntl wbc Fady Jurado MD Work Phone: Start: 09-07-2022 End: 09-07-2022 Gluc bld gluc mntr dev cleared fda spec home use Nader Smith MD Work Phone: Start: 09-07-2022 VENOUS BLOOD GAS, POINT OF CARE Nader Smith MD Work Phone: Start: 09-07-2022 Glucose blood reagent strip Nader Smith MD Work Phone: Start: 09-06-2022 Glucose blood reagent strip Nader Smith MD Work Phone: Start: 09-06-2022 Glucose blood reagent strip Nader Smith MD Work Phone: Start: 09-06-2022 Glucose blood reagent strip Nader Smith MD Work Phone: Start: 09-06-2022 Glucose blood reagent strip Nader Smith MD Work Phone: Start: 09-06-2022 Glucose blood reagent strip Nader Smith MD Work Phone: Start: 09-06-2022 BASIC METABOLIC PANEL W/ REFLEX TO MG FOR LOW K Fady Jurado MD Work Phone: Start: 09-06-2022 ARTERIAL BLOOD GAS, POC Nader Smith MD Work Phone: Start: 09-06-2022 End: 09-06-2022 Gluc bld gluc mntr dev cleared fda spec home use Nader Smith MD Work Phone: Start: 09-06-2022 End: 09-06-2022 Glucose blood reagent strip Nader Smith MD Work Phone: Start: 09-06-2022 End: 09-06-2022 Glucose blood reagent strip Nader Smith MD Work Phone: Start: 09-05-2022 End: 09-05-2022 Glucose blood reagent strip Nader Smith MD Work Phone: Start: 09-05-2022 Glucose blood reagent strip Nader Smith MD Work Phone: Start: 09-05-2022 End: 09-05-2022 Basic metabolic panel calcium total Fady Jurado MD Work Phone: Start: 09-05-2022 Glucose blood reagent strip Nader Smith MD Work Phone: Start: 09-05-2022 Glucose blood reagent strip Nader Smith MD Work Phone: Start: 09-05-2022 Glucose blood reagent strip Nader Smith MD Work Phone: Start: 09-05-2022 End: 09-05-2022 Glucose blood reagent strip Nader Smith MD Work Phone: Start: 09-05-2022 Glucose blood reagent strip Nader Smith MD Work Phone: Start: 09-05-2022 LACTATE, SEPSIS Imelda De DO Work Phone: Start: 09-05-2022 Glucose blood reagent strip Nader Smith MD Work Phone: Start: 09-05-2022 Glucose blood reagent strip Nader Smith MD Work Phone: Start: 09-05-2022 Glucose blood reagent strip Nader Smith MD Work Phone: Start: 8 Glucose blood reagent strip Nader Smith MD Work Phone: Start: 09-05-2022 End: 09-05-2022 Basic metabolic panel calcium total Imelda Southampton DO Work Phone: Start: 09-05-2022 LACTATE, SEPSIS Imelda Southampton DO Work Phone: Start: 09-05-2022 ARTERIAL BLOOD GAS, POC Nader Smith MD Work Phone: Start: 09-05-2022 End: 09-05-2022 Glucose blood reagent strip Nader Smith MD Work Phone: Start: 09-05-2022 End: 09-05-2022 Basic metabolic panel calcium total Imelda Southampton DO Work Phone: Start: 09-05-2022 LACTATE, SEPSIS Imelda De DO Work Phone: Start: 09-04-2022 End: 09-04-2022 Glucose blood reagent strip Nader Smith MD Work Phone: Start: 09-04-2022 End: 09-04-2022 Basic metabolic panel calcium total Imelda Southampton DO Work Phone: Start: 09-04-2022 LACTATE, SEPSIS Imelda Southampton DO Work Phone: Start: 09-04-2022 EOSINOPHILS, URINE Moises Britt MD Work Phone: Start: 09-04-2022 End: 09-04-2022 Basic metabolic panel calcium total Imelda De DO Work Phone: Start: 09-04-2022 Complement antigen each component Moises Britt MD Work Phone: Start: 09-04-2022 LACTATE, SEPSIS Imelda De DO Work Phone: Start: 09-04-2022 End: 09-04-2022 LEG DEBRIDEMENT INCISION AND DRAINAGE Janak Shaffer MD Work Phone: Start: 09-04-2022 End: 09-04-2022 Basic metabolic panel calcium total Imelda De DO Work Phone: Start: 09-04-2022 LACTATE, SEPSIS Imelda Southampton DO Work Phone: Start: 09-04-2022 Glucose blood reagent strip Nader Smith MD Work Phone: Start: 09-04-2022 End: 09-04-2022 Glucose blood reagent strip Nader Smith MD Work Phone: Start: 09-04-2022 End: 09-04-2022 Basic metabolic panel calcium total Imelda Southampton DO Work Phone: Start: 09-04-2022 LACTATE, SEPSIS Imelda Southampton DO Work Phone: Start: 09-04-2022 ARTERIAL BLOOD GAS, POC Nader Smith MD Work Phone: Start: 09-04-2022 End: 09-04-2022 Glucose blood reagent strip Nader Smith MD Work Phone: Start: 09-04-2022 End: 09-04-2022 Basic metabolic panel calcium total Imelda Southampton DO Work Phone: Start: 09-04-2022 LACTATE, SEPSIS Imelda Southampton DO Work Phone: Start: 09-03-2022 Glucose blood reagent strip Nader Smith MD Work Phone: Start: 09-03-2022 Glucose blood reagent strip Nader Smith MD Work Phone: Start: 09-03-2022 End: 09-03-2022 Basic metabolic panel calcium total Imelda Southampton DO Work Phone: Start: 09-03-2022 LACTATE, SEPSIS Imelda Southampton DO Work Phone: Start: 09-03-2022 Glucose blood reagent strip Nader Smith MD Work Phone: Start: 09-03-2022 End: 09-03-2022 Basic metabolic panel calcium total Imelda De DO Work Phone: Start: 09-03-2022 LACTATE, SEPSIS Imelda De DO Work Phone: Start: 09-03-2022 End: 09-03-2022 Basic metabolic panel calcium total Imelda De DO Work Phone: Start: 09-03-2022 LACTATE, SEPSIS Imelda Southampton DO Work Phone: Start: 09-03-2022 MYOGLOBIN, BLOOD Britney I Leodan DO Work Phone: Start: 09-03-2022 End: 09-03-2022 Glucose blood reagent strip Nader Smith MD Work Phone: Start: 09-03-2022 Us retroperitoneal real time w/image complete Britney I Leodan DO Work Phone: Start: 09-03-2022 Glucose blood reagent strip Nader Smith MD Work Phone: Start: 09-03-2022 LACTATE, SEPSIS Imelda Southampton DO Work Phone: Start: 09-03-2022 SPECIMEN REJECTION Britney I Leodan DO Work Phone: Start: 09-03-2022 Glucose blood reagent strip Nader Smith MD Work Phone: Start: 09-03-2022 End: 09-03-2022 Debridement subcutaneous tissue 20 sq cm/< Janak Shaffer MD Work Phone: Start: 09-03-2022 End: 09-03-2022 Glucose blood reagent strip Nader Smith MD Work Phone: Start: 09-03-2022 End: 09-03-2022 Basic metabolic panel calcium total Imelda De DO Work Phone: Start: 09-03-2022 LACTATE, SEPSIS Imelda Southampton DO Work Phone: Start: 09-03-2022 ARTERIAL BLOOD GAS, POC Nader Smith MD Work Phone: Start: 09-03-2022 LACTIC ACID,POINT OF CARE Nader Smith MD Work Phone: Start: 09-03-2022 End: 09-03-2022 Glucose blood reagent strip Nader Smith MD Work Phone: Start: 09-03-2022 Basic metabolic panel calcium total Imelda Southampton DO Work Phone: Start: 09-03-2022 LACTATE, SEPSIS Imelda De DO Work Phone: Start: 09-02-2022 End: 09-02-2022 Glucose blood reagent strip Nader Smith MD Work Phone: Start: 09-02-2022 ARTERIAL BLOOD GAS, POC Nader Smith MD Work Phone: Start: 09-02-2022 End: 09-02-2022 Gluc bld gluc mntr dev cleared fda spec home use Nader Smith MD Work Phone: Start: 09-02-2022 ARTERIAL BLOOD GAS, POC Nader Smith MD Work Phone: Start: 09-02-2022 End: 09-02-2022 Basic metabolic panel calcium total Rodolfo Taylor MD Work Phone: Start: 09-02-2022 LACTATE, SEPSIS Rodolfo Yue Cordoba DO Work Phone: Start: 09-02-2022 End: 09-02-2022 Glucose blood reagent strip Nader Smith MD Work Phone: Start: 09-02-2022 End: 09-02-2022 Glucose blood reagent strip Nader Smith MD Work Phone: Start: 09-02-2022 Basic metabolic panel calcium total Rodolfo Taylor MD Work Phone: Start: 09-02-2022 Radiologic exam chest single view Rodolfo Cordoba DO Work Phone: Start: 09-02-2022 LACTATE, SEPSIS Rodolfo Cordoba DO Work Phone: Start: 09-02-2022 ARTERIAL BLOOD GAS, POC Nader Smith MD Work Phone: Start: 09-02-2022 End: 09-02-2022 Glucose blood reagent strip Nader Smith MD Work Phone: Start: 09-02-2022 End: 09-02-2022 Basic metabolic panel calcium total Rodolfo Taylor MD Work Phone: Start: 09-02-2022 Glucose blood reagent strip Nader Smith MD Work Phone: Start: 09-02-2022 ARTERIAL BLOOD GAS, POC Nader Smith MD Work Phone: Start: 09-02-2022 NOTIFICATION PANEL, POC Nader Smith MD Work Phone: Start: 09-02-2022 End: 09-02-2022 Glucose blood reagent strip Nader Smith MD Work Phone: Start: 09-02-2022 CULTURE, BLOOD 1 Rodolfo Taylor MD Work Phone: Start: 09-02-2022 Radiologic exam abdomen 1 view Rodolfo Taylor MD Work Phone: Start: 09-02-2022 Radiologic exam chest single view Rodolfo Taylor MD Work Phone: Start: 09-02-2022 End: 09-02-2022 Basic metabolic panel calcium total Rodolfo Taylor MD Work Phone: Start: 09-02-2022 LACTATE, SEPSIS Rodolfo Taylor MD Work Phone: Start: 09-02-2022 End: 09-02-2022 Iadna s aureus methicillin resist amp probe tq Lyndon Garcia MD Work Phone: Start: 09-02-2022 End: 09-02-2022 ARTERIAL BLOOD GAS, POC Nader Smith MD Work Phone: Start: 09-02-2022 CENTRAL LINE Rodolfo Garcia DO Work Phone: Start: 09-02-2022 RESPIRATORY CARE EVALUATION ONLY Britney Rosa Elena Thompsony DO Work Phone: Start: 09-02-2022 BLOOD GAS, ARTERIAL Nader Smith MD Work Phone: Start: 09-02-2022 End: 09-03-2022 Calcium ionized Nader Smith MD Work Phone: Start: 09-02-2022 CHLORIDE, WHOLE BLOOD Nader Smith MD Work Phone: Start: 09-02-2022 OPEN HEART H&H Nader Smith MD Work Phone: Start: 09-02-2022 SODIUM, WHOLE BLOOD Nader Smith MD Work Phone: Start: 09-02-2022 OPEN HEART PANEL Nader Smith MD Work Phone: Start: 09-02-2022 End: 09-02-2022 LEG DEBRIDEMENT INCISION AND DRAINAGE Traci Maya MD Work Phone: Start: 09-02-2022 CALCIUM, IONIC (POC) Jane Acuña O Work Phone: Start: 09-02-2022 CREATININE W/GFR POINT OF CARE Jane Ruiz DO Work Phone: Start: 09-02-2022 ELECTROLYTES PLUS Jane Ruiz DO Work Phone: Start: 09-02-2022 LACTIC ACID,POINT OF CARE Jane be DO Work Phone: Start: 09-02-2022 VENOUS BLOOD GAS, POINT OF CARE Jane Ruiz DO Work Phone: Start: 09-02-2022 End: 09-02-2022 Culture bacterial quanttative colony count urine Rodolfo Garcia DO Work Phone: Start: 09-02-2022 End: 09-02-2022 C-reactive protein Rodolfo Garcia DO Work Phone: Start: 09-02-2022 End: 09-02-2022 Comprehensive metabolic panel Rodolfo Garcia DO Work Phone: Start: 09-02-2022 LACTATE, SEPSIS Rodolfo Taylor MD Work Phone: Start: 09-02-2022 Radiologic exam chest single view Jane Ruiz DO Work Phone: Start: 09-02-2022 CULTURE, BLOOD 1 Rodolfo Garcia DO Work Phone: Start: 09-02-2022 CALCIUM, IONIC (POC) Candida Brown Work Phone: Start: 09-02-2022 CREATININE W/GFR POINT OF CARE Candida Brown Work Phone: Start: 09-02-2022 ELECTROLYTES PLUS Candida Brown Work Phone: Start: 09-02-2022 LACTIC ACID,POINT OF CARE Candida briones Work Phone: Start: 09-02-2022 VENOUS BLOOD GAS, POINT OF CARE Candida Brown Work Phone: Start: 09-02-2022 End: 09-02-2022 Glucose blood reagent strip Jane Ruiz DO Work Phone: Plan of Treatment Date Care Activity Detail Author Start: 07-30-2025 [facility] Start: 07-16-2025 Glaucoma screening Diabetes: R etinopathy Screening [facility] Start: 10-24-2024 Hemoglobin A1c measurement [facility] Start: 08-10-2024 Urine screening for protein Diabetes: Urine Protein Screening [facility] Start: 08-07-2024 End: 08-07-2024 Patient encounter procedure 08/07/2024 5:30 PM EDT Office Visit [facility] [address] [place] [id number] Candida Brown NP [address] [place] [id number] [facility] Start: 07-19-2024 Bacteria identified in Urine by Culture Urine Culture [facility] Start: 07-19-2024 Urine culture [facility] Start: 07-16-2024 Medicare Annual Well ness (AWV) Medicare Annual Wellness (AWV) [facility] Start: 07-16-2024 Screening for malign ant neoplasm of breast Mammogram [facility] Start: 07-16-2024 Screening for malign ant neoplasm of colon Colorectal Cancer Screening [facility] Comment on above: Postponed from 11/03 (Patient Refused) Start: 06-07-2024 End: 06-07-2025 CBC W Auto Differential panel - Blood CBC and differential Lab Routine Chronic kidney disease, stage 3b (HCC) ([facility]/HCC) Expected: 06/07/2024 (Approximate), Expires: 06/07/2025 [facility] Work Phone: Comment on above: Expected: 06/07/2024 (Approximate), Expires: 06/07/2025 Start: 06-07-2024 End: 06-07-2025 Comprehensive metabolic 2000 panel - Serum or Plasma Comprehensive metabolic panel Lab Routine Essential hypertension (CMS/HCC) Chronic kidney disease, stage 3b (HCC) (CMS/HCC) Type 2 diabetes mellitus with insulin therapy (CMS/HCC) Mixed hyperlipidemia (CMS/HCC) Expected: 06/07/2024 (Approximate), Expires: 06/07/2025 [facility] Comment on above: Expected: 06/07/2024 (Approximate), Expires: 06/07/2025 Start: 06-07-2024 End: 06-07-2025 Hemoglobin A1c/Hemoglobin.total in Blood Hemoglobin A1c Lab Routine Type 2 diabetes mellitus with insulin therapy (CMS/HCC) Expected: 06/07/2024 (Approximate), Expires: 06/07/2025 [facility] Comment on above: Expected: 06/07/2024 (Approximate), Expires: 06/07/2025 Start: 06-07-2024 End: 06-07-2025 Lipid 1996 panel - Serum or Plasma Lipid panel Lab Routine Mixed hyperlipidemia (CMS/HCC) Expected: 06/07/2024 (Approximate), Expires: 06/07/2025 [facility] Comment on above: Expected: 06/07/2024 (Approximate), Expires: 06/07/2025 Start: 06-07-2024 End: 06-07-2025 Magnesium [Mass/volume] in Serum or Plasma Magnesium Lab Routine Hypomagnesemia Expected: 06/07/2024 (Approximate), Expires: 06/07/2025 [facility] Comment on above: Expected: 06/07/2024 (Approximate), Expires: 06/07/2025 Start: 06-07-2024 End: 06-07-2025 Microalbumin/Creatinine panel in random Urine Microalbumin / creatinine, urine ratio Lab Routine Essential hypertension (CMS/HCC) Chronic kidney disease, stage 3b (HCC) (CMS/HCC) Type 2 diabetes mellitus with insulin therapy (CMS/HCC) Expected: 06/07/2024 (Approximate), Expires: 06/07/2025 [facility] Comment on above: Expected: 06/07/2024 (Approximate), Expires: 06/07/2025 Start: 06-07-2024 End: 06-07-2025 Urinalysis complete panel - Urine Urinalysis with reflex microscopic (clean catch) Lab Routine Essential hypertension (CMS/HCC) Chronic kidney disease, stage 3b (HCC) (CMS/HCC) Type 2 diabetes mellitus with insulin therapy (CMS/HCC) Expected: 06/07/2024 (Approximate), Expires: 06/07/2025 [facility] Comment on above: Expected: 06/07/2024 (Approximate), Expires: 06/07/2025 Start: 03-04-2024 End: 03-04-2024 Patient encounter procedure 03/04/2024 5:00 PM EST Office Visit [facility] [address] [place] [address] Candida Brown, ADOLFO [address] [place] [address] [facility] Start: 02-14-2024 [facility] Start: 12-06-2023 End: 12-06-2023 Patient encounter procedure 12/06/2023 5:30 PM EDT [facility] [address] [place] [address] Candida Brown [employer]OUD ADMINISTRATOR [address] [place] [address] Tobacco user (Primary Dx); Type 2 diabetes mellitus with diabetic chronic kidney disease (CMS/HCC); Chronic kidney disease, stage 3b (HCC) (CMS/HCC); Morbid (severe) obesity due to excess calories (CMS/HCC); Body mass index (BMI) 50.0-59.9, adult (CMS/HCC) [facility] Comment on above: Tobacco user (Primar y Dx); Type 2 diabetes mellitus with diabetic chronic kidney disease (CMS/HCC); Chronic kidney disease, stage 3b (HCC) (CMS/HCC); Morbid (severe) obesity due to excess calories (CMS/HCC); Body mass index (BMI) 50.0-59.9, adult (CMS/HCC) Start: 11-27-2023 End: 11-27-2023 Patient encounter procedure 11/27/2023 7:00 PM EDT Office Visit [facility] [address] [place] [address] Candida Brown NP [address] [place] [address] [facility] Start: 10-15-2023 Influenza vaccination Influenza Vacc ine (#1) [facility] Start: 10-15-2023 [facility] [employer] Start: 09-21-2023 [facility] [employer] Start: 12-03-2022 Hemoglobin A1c measurement [facility] Start: 09-20-2022 End: 09-21-2023 Us abdominal real time w/image documentation [facility] Start: 09-19-2022 End: 09-20-2023 Transthoracic echocardiogram (TTE) complete with contrast, bubble, strain, and 3D PRN [facility] [employer] Start: 09-13-2022 [facility] [employer] Start: 09-02-2022 [facility] [employer] Start: 2021 [facility] [employer] Start: 07-19-2020 Screening for malign ant neoplasm of colon [facility] Start: 11-04-2011 Screening for malign ant neoplasm of breast [facility] Start: 11-04-2011 [employer] Start: 2006 Screening for malign ant neoplasm of colon [facility] [employer] Start: 2001 Screening for malign ant neoplasm of breast [facility] [employer] Start: 11-04-1991 Screening for malign ant neoplasm of cervix [facility] Start: 1982 Screening for malign ant neoplasm of cervix [facility] Start: 1980 [facility] [employer] Start: 11-04-1979 Glaucoma screening [facility] Start: 11-04-1979 Hepatitis C screening [facility] [employer] Start: 11-04-1979 Urine screening for protein [facility] [employer] Start: 1976 HIV screening [facility] [employer] Start: 1973 [facility] [employer] Start: 11-04-1971 Diabetic foot examination [facility] Start: 11-04-1971 Lipid panel [facility] [employer] Start: 11-04-1967 [facility] [employer] Start: 05-03-1962 [facility] [employer] Start: 1961 Screening for malign ant neoplasm of colon [facility] Healthcare ABG draw [facility] [employer] Adult NIV/Positive Airway Pressure [facility] [employer] Adult NIV/Positive Airway Pressure [facility] [employer] End: 09-21-2022 Basic Metabolic Panel w/ Reflex to MG [facility] [employer] End: 08-12-2024 Basic Metabolic Panel w/ Reflex to MG [facility] [employer] End: 09-21-2022 CBC W Auto Differential panel - Blood [facility] [employer] Work Phone: End: 08-12-2024 CBC W Auto Differential panel - Blood [facility] [employer] Continuous positive airway pressure ventilation treatment [facility] [employer] Continuous pulse oximetry [facility] [employer] Continuous pulse oximetry [facility] [employer] Culture, Fungus [facility] [employer] Glucose [Mass/volume ] in Serum or Plasma [facility] Glucose [Mass/volume ] in Serum or Plasma [facility] [employer] Glucose [Mass/volume ] in Serum or Plasma [facility] [employer] Glucose [Mass/volume ] in Serum or Plasma [facility] [employer] End: 07-23-2024 Ip Wound Care/Ostomy Nurse Eval and Treat [facility] End: 08-12-2024 Magnesium [Mass/volume] in Serum or Plasma [facility] Nasal Cannula Oxygen [facility] [employer] Work Phone: Oxygen therapy [Mini mum Data Set] [facility] Oxygen therapy [Mini mum Data Set] [facility] [employer] Work Phone: End: 08-12-2024 Phosphate [Mass/volume] in Serum or Plasma [facility] End: 07-26-2024 PREPARE RBC (CROSSMATCH), 1 Units [facility] [employer] End: 08-06-2024 Protime-INR [facility] End: 07-30-2024 Speech and language therapy regime [facility] [employer] Work Phone: Transfusion of fresh frozen plasma [facility] Work Phone: URINE CULTURE - [facility] URINE CULTU RE - [facility] Lab Routine 07/19/2024 9:55 AM EDT [facility] Immunizations Immunization Date Immunization Notes Care Provider Aracelis sánchez 12-06-2023 Influenza, injectabl e, Madin Aisha Canine Kidney, preservative free, quadrivalent Candida Aichholz CLOUD ADMINISTRATOR Work Phone: [facility] 12-03-2022 Influenza, High-dose Seasonal, Quadrivalent, Preservative Free Candida Aichholz CLOUD ADMINISTRATOR Work Phone: [facility] 12-03-2022 influenza virus vacc ine, unspecified formulation Candida Aichholz CLOUD ADMINISTRATOR Work Phone: [facility] 01-03-2021 influenza, injectabl e, quadrivalent, preservative free Candida Aichholz CLOUD ADMINISTRATOR Work Phone: [facility] Healthcare Payers Date Payer Category Payer Self-pay 2021 Medicare ANTH MEDICARE ADVANTAGE ANTH MEDICARE ADVANTAGE [id number] 2021-Present [address] [place] [address] [id number] 2021 Medicare (Managed Care) CHRIS RONQU[employer]O ADVANTAGE [id number] 1960 Unknown [id number] [id number]. 2.593 1961 Unknown [id number] 2.16.840.1.077929.3.579. 2.593 1961 Unknown [id number] 2.16.840.1.644744.3.579. 2.176 1961 Unknown [id number] 2.16.840.1.959919.3.579. 2.176 1961 Unknown [id number] 2.16.840.1.295796.3.579. 2.176 1960 Unknown [id number] 2.16.840.1.308437.3.579. 2.176 1960 Unknown [id number] 2.16.840.1.581656.3.579. 2.176 1961 Unknown [id number] 2.16.840.1.237658.3.579. 2.176 1961 Unknown [id number] 2.16.840.1.356957.3.579. 2.176 1961 Unknown [id number] 2.16.840.1.431946.3.579. 2.1259 1961 Unknown [id number] 2.16.840.1.815927.3.579. 2.1259 1961 Unknown [id number] 2.16.840.1.206505.3.579. 2.1259 1960 Unknown [id number] 2.16.840.1.227641.3.579. 2.175 1959 Unknown [id number] Unknown [id number] [id number]. 2.531 Social History Date Type Detail Facility Tobacco smoking stat [facility] Tobacco smoking consumption unknown [facility] Start: 1960 Sex Assigned At [facility] Start: 1960 Sex Assigned At [facility] Start: 01-31-2023 End: 03-20-2023 Tobacco smoking status IAIS Smokes tobacco daily [facility] End: 08-11-2022 History of tobacco use Cigarette Smoker [facility] Start: 01-31-2023 End: 03-20-2023 Tobacco use and exposure Smokeless tobacco non-user [facility] Start: 07-17-2023 End: 07-29-2024 Alcoholic beverage intake Lifetime non-drinker (finding) [facility] Start: 07-17-2023 End: 07-19-2024 History of Social function [facility] Start: 07-17-2023 End: 07-19-2024 Tobacco use panel [facility] How often do you nee d to have someone help you when you read instructions, pamphlets, or other written material from your doctor or pharmacy [SILS] Never [facility] Do you belong to any clubs or organizations such as denominational groups, unions, fraternal or athletic groups, or school groups? No [facility] Are you now , , , , never or living with a partner? [facility] How often to you hav e a drink containing alcohol? Never [facility] How hard is it for y ou to pay for the very basics like food, housing, medical care, and heating Somewhat hard [facility] Do you feel stress - tense, restless, nervous, or anxious, or unable to sleep at night because your mind is troubled all the time - these days [OSQ] Only a little [facility] (I/We) worried wheth er (my/our) food would run out before (I/we) got money to buy more. Sometimes true [facility] Tobacco smoking stat us IAIS Unknown if ever smoked [facility] Work Phone: Start: 09-01-2022 End: 07-20-2024 Sex Female (finding) [facility] History of tobacco use Passive smoker Rylie [facility] Medical Equipment Procedure Code Equipment Code Equipment Origin al Text Equipment Identifier Dates Apply 1 each topically in the morning and 1 each at noon and 1 each in the evening and 1 each before bedtime. [id number] Start: 03-20-2023 Clinical Notes 07-02-2021 to 08-25-2024 Tabitha Hercules RN - 07/30/2024 5:37 PM Nuvia Pham MD - 07/30/2024 2:28 PM Jenae Montague SLP - 07/30/2024 1:32 PM Tabitha Pierce RN - 07/30/2024 10:25 AM EDTDischarge Instructions Note Date & Type Note Facility 08-25-[address] ABDOMEN AND PELVI S WITHOUT IV CONTRAST HISTORY: PEG tube evaluation. [...] reasonably achievable. Electronically signed: Doug Triplett MD. [facility] Comment on above: Order Comment: Verif y peg tube placement 07-30-2024 History of Present illness Narrative Pt discharged to [facility] with transport team. Prior to discharge, trauma team in room to change pt wound dressing on buttocks. Colostomy emptied before discharge, site remains clean dry and intact. Daughter and granddaughter in room during discharge. Report called to [facility] RN, no further questions for me from her at this time. Callback number given in case. Images from the original note were not included. 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 Fascitis sacral wound and the kassidy anal area and the pubic symphysis Cx 07/19/24 bacteroides ad mixed normal citlali 07/19 I&D 07/20 debridement tunneling to the pubic symphysis 07/22 open Transverse diverting colostomy placed 07/26 debridement of the sacral wound Septic shock, controlled Leukemoid reaction persistent Thrombocytosis Intubated then extubated 07/28 CRP 187 elevated Other: Diabetes type 2 Discussion / summary of stay / plan of care/ Recommendations: HENCE: Concern for sacral osteo w exposed bone - and wound tunnels to the perianal area - all I/Dd and last time necrotic tissue was resected was 07/26- Allergy to PNC unclear type and tolerated meropenem in past- Has been on cefepime and flagyl along and steroids have been stopped few days ago WBC response is very slow but thrombocytopenia forming Extubated and 07/28 CXR P edema Hence 07/28 switch to meropenem till 09/07/24 -reconsiled for LTAC CRP 534 - 187 - 187 WBC 30 - 21 better Infection Control Recommendations [place] Precautions Antimicrobial Stewardship Recommendations Simplification of therapy Targeted therapy History of Present Illness: Initial history: Divina Amin is a 63 y.o.-year-old female transferred from because of concern of necrotizing fasciitis over the sacral area. History of increasing pain in that area with an open sacral wound. Denied abdominal pain but had nausea vomiting fevers diarrhea and was short of breath. Patient smoker, no pneumonia found but the patient noticed over the supraglottic, within the pubic area. Stable for multiple debridements, leukocytosis/leukemoid reaction present but he has not improved despite antibiotic therapy. Clinically thrombocytopenia seems to be forming, infectious disease consulted for antibiotic management. I called the lab and the wound is really growing Bacteroides as well as strep viridans. From 07/19. Interval changes 07/30/2024 Patient Vitals for the past 8 hrs: BP Temp Temp src Pulse Resp SpO2 07/30/24 1200 (!) 119/52 98.8 F (37.1 C) Oral 74 20 100 % 07/30/24 1100 (!) 124/43 -- -- 85 20 98 % 07/30/24 1000 (!) 121/49 -- -- 75 20 99 % 07/30/24 0900 (!) 159/93 -- -- 92 23 95 % 07/30/24 0855 -- -- -- -- 22 -- 07/30/24 0850 (!) 144/74 -- -- 79 22 100 % 07/30/24 0846 -- -- -- 89 22 94 % 07/30/24 0825 -- -- -- -- 18 -- 07/30/24 0800 113/78 99 F (37.2 C) Oral 87 16 93 % 07/29 No fever and no chills - abd soft non tender- NC - obese -lethargic Needed bypap earlier 37C temp - WBC 21 - better CRP better 07/30 Awake and responding - weak and moves steps only, due to arthritis legs - abd sopft ovbese - wants to smoke W 18 - back cx w bacteroides - sacral osteo suggested Summary of relevant labs: Labs: Wbc 29 -30 -26 - 21 - 18 Plts 411 - 590 CRP 534 - 187 - 187 Micro: blood culture 07/25 neg Sacra wound cx 07/19 mixed citlali and bacteroides-strep viridens Procedures Cardiology Imaging: Cxr p edema Ctap 07/25 . Small bilateral pleural effusions with bilateral lower [...] size since 09/09/2022. Correlate with mammographic imaging. I have personally reviewed the past medical history, past surgical history, medications, social history, and family history, and I haveupdated the database accordingly. Allergies: Latex, Amoxicillin, and Penicillins Review of Systems: Review of Systems Constitutional: Positive for activity change. Negative for diaphoresis. HENT: Negative for congestion. Eyes: Negative for discharge. Respiratory: Negative for apnea. Endocrine: Negative for polyphagia. Genitourinary: Negative for dysuria. Physical Examination : Physical Exam Constitutional: General: She is not in acute distress. Appearance: Normal appearance. She is obese. She is not ill-appearing. HENT: Head: Normocephalic and atraumatic. Nose: Nose normal. Mouth/Throat: Mouth: Mucous membranes are moist. Eyes: General: No scleral icterus. Conjunctiva/sclera: Conjunctivae normal. Cardiovascular: Rate and Rhythm: Normal rate and regular rhythm. Heart sounds: No murmur heard. No friction rub. Pulmonary: Effort: No respiratory distress. Breath sounds: No stridor. No wheezing. Abdominal: General: There is no distension. Tenderness: There is no abdominal tenderness. Musculoskeletal: General: No swelling, tenderness, deformity or signs of injury. Cervical back: No rigidity or tenderness. Skin: Coloration: Skin is not jaundiced. Findings: No bruising. Neurological: Mental Status: She is alert. Cranial Nerves: No cranial nerve deficit. Psychiatric: Mood and Affect: Mood normal. Past Medical History: Past Medical History: Diagnosis Date COPD (chronic obstructive pulmonary disease) (HCC) Diabetes (HCC) Morbid obesity (HCC) Past Surgical History: Past Surgical History: Procedure Laterality Date ABDOMEN SURGERY Left 07/22/2024 SHARP EXCISION OF SACRAL WOUND DOWN TO MUSCLE performed by Caitlin Briseno MD at [facility] OR SECTION x 2 CHOLECYSTECTOMY COLOSTOMY N/A 07/22/2024 ATTEMPTED LAPAROSCOPIC COLOSTOMY, CONVERTED TO OPEN TO MAKE DIVERTING LOOP COLOSTOMY performed by Caitlin Briseno MD at [facility] OR LEG SURGERY Left 09/03/2022 DEBRIDEMENT THIGH, GROIN, BUTTOCK performed by Janak Shaffer MD at [facility] OR LEG SURGERY Left 09/04/2022 DEBRIDEMENT THIGH, GROIN, BUTTOCK performed by Janak Shaffer MD at [facility] OR LEG SURGERY Left 09/02/2022 DEBRIDEMENT INCISION AND DRAINAGE OF LEFT THIGH, LEFT GROIN AND LEFT BUTTOCKS performed by Traci Maya MD at [facility] OR LEG SURGERY Left 07/20/2024 LEFT BUTTOCK DEBRIDEMENT performed by Janak Shaffer MD at [facility] OR PERINEAL SURGERY Left 07/19/2024 E2 [id number] DEBRIDEMENT DOWN TO AND INCLUDING MUSCLE AND FASCIA LEFT BUTTOCK AND GROIN performed by Alisia Cuellar MD at [facility] OR PRESSURE ULCER DEBRIDEMENT Left 07/26/2024 LEFT BUTTOCKS ULCER DEBRIDEMENT performed by Lizzy Whalen MD at [facility] OR Medications: insulin glargine 20 Units SubCUTAneous BID sodium chloride flush 5-40 mL IntraVENous 2 times per day lidocaine 1 % injection 50 mg IntraDERmal Once pantoprazole 40 mg Oral QAM AC enoxaparin 30 mg SubCUTAneous BID meropenem 1,000 mg IntraVENous Q8H insulin lispro 0-16 Units SubCUTAneous Q4H acetaminophen 1,000 mg Oral 3 times per day gabapentin 300 mg Oral 3 times per day midodrine 10 mg Oral TID lisinopril 5 mg Oral Daily PARoxetine 10 mg Oral Daily pravastatin 20 mg Oral Daily glipiZIDE 10 mg Oral BID sennosides-docusate sodium 2 tablet Oral BID polyethylene glycol 17 g Oral Daily Social History: Social History Socioeconomic History Marital status: Spouse name: Not on file Number of children: Not on file Years of education: Not on file Highest education level: Not on file Occupational History Not on file Tobacco Use Smoking status: Every Day Current packs/day: 0.00 Types: Cigarettes Last attempt to quit: 08/11/2022 Years since quittin.9 Passive exposure: Past Smokeless tobacco: Never Vaping Use Vaping status: Never Used Substance and Sexual Activity Alcohol use: Never Drug use: Never Sexual activity: Not Currently Other Topics Concern Not on file Social History Narrative Not on file Social Drivers of Health Financial Resource Strain: Medium Risk (12/05/2023) Received from [facility] Overall Financial Resource Strain (CARDIA) Difficulty of Paying Living Expenses: Somewhat hard Food Insecurity: Food Insecurity Present (12/05/2023) Received from [facility] Hunger Vital Sign Worried About Running Out of Food in the Last Year: Sometimes true Ran Out of Food in the Last Year: Sometimes true Transportation Needs: No Transportation Needs (12/05/2023) Received from [facility] PRAPARE - Transportation Lack of Transportation (Medical): No Lack of Transportation (Non-Medical): No Physical Activity: Insufficiently Active (12/05/2023) Received from [facility] Exercise Vital Sign Days of Exercise per Week: 4 days Minutes of Exercise per Session: 20 min Stress: No Stress Concern Present (12/05/2023) Received from [facility] [employer] [place] [employer] - Occupational Stress Questionnaire Feeling of Stress : Only a little Social Connections: Socially Isolated (12/05/2023) Received from [facility] Social Connection and Isolation Panel [NHANES] Frequency of Communication with Friends and Family: Once a week Frequency of Social Gatherings with Friends and Family: Never Attends Mandaeism Services: Never Active Member of Clubs or Organizations: No Attends Club or Organization Meetings: Never Marital Status: Intimate Partner Violence: Not on file Housing Stability: Unknown (12/05/2023) Received from [facility] Housing Stability Vital Sign Unable to Pay for Housing in the Last Year: No Number of Times Moved in the Last Year: Not on file Homeless in the Last Year: No Family History: No family history on file. Medical Decision Making: I have independently reviewed/ordered the following labs: CBC with Differential: Recent Labs 07/29/24 0505 07/30/24 0336 WBC 21.9* 18.7* HGB 7.7* 8.5* HCT 26.9* 30.0* PLT 554* See Reflexed IPF Result LYMPHOPCT 11* 9* MONOPCT 7 7 EOSPCT 1 1 BMP: Recent Labs 07/29/24 0505 07/30/24 0336 NA 151* 148* K 4.3 5.0 CL 120* 117* CO2 22 22 BUN 27* 19 CREATININE 0.8 0.7 MG 2.0 1.9 Hepatic Function Panel: No results for input(s): LABALBU , BILIDIR , IBILI , BILITOT , ALKPHOS , ALT , AST in the last 72 hours. Invalid input(s): PROT No results for input(s): RPR in the last 72 hours. No results for input(s): HIV in the last 72 hours. No results for input(s): BC in the last 72 hours. Lab Results Component Value Date/Time CREATININE 0.7 07/30/2024 03:36 AM GLUCOSE 125 07/30/2024 03:36 AM Detailed results: Thank you for allowing us to participate in the care of this patient.Please call with questions. This note is created with the assistance of a speech recognition program. While intending to generate adocument that actually reflects the content of the visit, the document can still have some errors including those of syntax and sound a like substitutions which may escape proof reading. It such instances, actual meaningcan be extrapolated by contextual diversion. Nuvia Baker MD Office: [facility] / office [phone] [facility] Speech Language Pathology Date: 07/30/2024 Patient Name: Divina Amin Date of : 1960 AGE: 63 y.o. Patient Not Available for Speech Therapy Due to: [] Testing [] Hemodialysis [] Cancelled by RN [] Surgery [] Intubation/Sedation/Pain Medication [] Medical instability [x] Other: Spoke with RN, pt. Be d/c this afternoon at 430 PM. No need for bedside swallow study at this time. Next scheduled treatment: re-consult if necessary Completed by: JENAE HERNANDEZ WEBLOGIC ADMINISTRATOR, M.A. [facility]-WEBLOGIC ADMINISTRATOR Pt refusing both breakfast and oral nutrition supplement. Physicians aware of pt nutritional status. Images from the original note were not included. ICU PROGRESS NOTE PATIENT NAME: Divina Amin DATE: 07/30/2024 HD: # 11 63 years old female with past medical history of morbid obesity, diabetes, and COPD. Presented with left buttock wound. Patient presented to outside hospital emergency department had imaging which revealed extensive infection changes with crepitus concerning for necrotizing fasciitis. Patient was treated with vancomycin and ceftazidime, 3 L of LR bolus and was sent to [facility] for further management. Patient also received cefepime 2 g IV, clindamycin 900 mg IV and initiated Levophed infusion with MAP goal of 65. General surgery consulted due to necrotizing soft tissue infection. Patient went to the OR, 20 x 31 cm debridement down to and including muscle and fascia left buttock and groin. Finding shows deep infection muscle/fascia present as evidenced by purulent fluid and fluid consistent with infection. Other findings shows debrided down to the level of bone. Patient brought to the ICU intubated and sedated for further management. 6/7: OR: Debridement, wound bed measuring 20 x 31 cm, pack. Wound tunneled down to the ischial bone. 07/21: OR: Debridement, wound tunneled to the pubic symphysis. Wound measurement 40 x 55 cm. 07/23: OR for wound debridement, washout, dakins wet to dry. Attempted lap loop colostomy converted to open due to adhesions. Given FFP for TEG/ 07/24: TF to goal. Precedex started. 07/25: Leukocytosis. CT imaging negative for new finding. Blood cultures sent. 07/26: OR for debridement. 1u pRBC. D/Jose insulin gtt and started Lantus with HDSS. 07/27: Long SBT but had increased secretions. 07/28: Extubated ACUTE DIAGNOSES/PLAN Neuro: GCS 15T MMPT Gabapentin, Tylenol, Morphine 2mg q4hrs, Advil 600 q6hrs prn, oxy 5mg q6hrs Paxil Improved mentation and communication this morning relative to day prior CV No pressors HR: 73- 103 (improved today) SBP: 78-159 Maps: 48-118 - Hypotensive episode overnight, recovered well without pressors or support On home midodrine 10 mg TID and statin Echo 07/20: EF 55-60%, normal diastolic function. Mild pulm HTN. Pulm 4L NC O2 Sat: >98% Incentive spirometry Bipap ovn, tolerated well CXR: 07/29: 1. Interval extubation with improving perihilar opacities. 2. Slightly increasing left lower lung zone opacification with suspected pleural effusion. GI/Nutrition Diet: ADULT ORAL NUTRITION SUPPLEMENT; Breakfast, Lunch, Dinner; Standard High Calorie/High Protein Oral Supplement ADULT DIET; Regular; 4 carb choices (60 gm/meal); Double Protein Portions Protonix 40 mg oral Transverse loop colostomy: 250 cc /24 hours OR 07/23: Loop transverse colostomy creation, attempted laparoscopic but converted to mini laparotomy Senokot BID Home meds restarted as appropriate Renal/lytes NA/K: 148/5.0 BUN/CR: 19/0.7 Mag/Phos: 2.0/ 2.5 Ical: 1.21 Electrolytes replaced D5.45% NS at 100 cc/hr: will d/c today if tolerating diet UOP: 2650/ 24 hours, 0.8 mL/kg/h Requiring multiple straight caths Heme/ ID DVT prophylaxis- lovenox 30 BID Hbg 8.5 from 7.7 Plts: 584 Transfusions Totals: 2u pRBC, 1u FFP WBC 18.7 from 21.9, 26.9, 30.5 Tmax: afebrile ovn continue ID consulted - Meropenem: q8 first dose 07/28 Endocrine Hx of DM Glucose: - HDSS - Lantus 35 BID -Transitioned off insulin gtt 07/26 Methylprednisolone stress dose: Discontinued on 07/23 Musculoskeletal Left buttock wound which related to Necrotizing fascitis. OR 07/19: Debridement wound bed 20 x 31 cm OR 07/20: Debridement wound bed 40 x 55 cm OR 07/22: Debridement 40 x 55 cm OR 07/26: Debridement 29 x 25 cm Will continue daily dressing changes Family/dispo Transfer out today Lines PIV x2 CHECKLIST CAM-ICU RASS: na RESTRAINTS: na IVF: dc NUTRITION: CLD ANTIBIOTICS: yes GI: protonix DVT: Lovenox GLYCEMIC CONTROL: Lantus & HDSS HOB >45: yes MOBILITY: none SBT: na IS: yes Wound care: yes Chief Complaint: Necrotizing fascitis infection/intubated/sedated on ventilation SUBJECTIVE Divina Alec Amin 63 years old female intubated in ICU for nec fasc, requiring multiple operations for debridements. Overnight, patient extubated yesterday and doing well overall. OBJECTIVE VITALS: Vitals: 07/30/24 0900 BP: (!) 159/93 Pulse: 92 Resp: 23 Temp: SpO2: 95% Physical Exam Constitutional: Appearance: She is morbidly obese. Interventions: She is sedated and intubated. HENT: Head: Normocephalic and atraumatic. Nose: Nose normal. Eyes: Conjunctiva/sclera: Conjunctivae normal. Cardiovascular: Rate and Rhythm: Regular rhythm. Pulses: Normal pulses. Pulmonary: Effort: She is intubated. Breath sounds: Normal breath sounds and air entry. No decreased air movement or transmitted upper airway sounds. Abdominal: General: Bowel sounds are normal. Palpations: Abdomen is soft. Musculoskeletal: Right lower leg: No edema. Left lower leg: No edema. Comments: Dressing to surgical wound Neurological: Comments: Appropriate LAB: CBC: Recent Labs 07/28/24 0525 07/29/24 0505 07/30/24 0336 WBC 26.9* 21.9* 18.7* HGB 7.3* 7.7* 8.5* HCT 24.4* 26.9* 30.0* MCV 96.1 102.3 103.1* PLT 590* 554* See Reflexed IPF Result BMP: Recent Labs 07/28/24 0525 07/29/24 0505 07/30/24 0336 NA 148* 151* 148* K 4.1 4.3 5.0 CL 118* 120* 117* CO2 23 22 22 BUN 37* 27* 19 CREATININE 0.9 0.8 0.7 GLUCOSE 287* 133* 125* RADIOLOGY: XR CHEST PORTABLE Result Date: 07/29/2024 1. Interval extubation with improving perihilar opacities. 2. Slightly increasing left lower lung zone opacification with suspected pleural effusion. Cosigned by Caitlin Briseno MD at 07/30/2024 11:04 AM EDT Associated attestation - Caitlin Briseno MD - 07/30/2024 11:04 AM EDT I personally evaluated the patient and directed the medical decision making with Resident after the physical/radiologic exam and laboratory values were reviewed and confirmed. No major issues. Rogelio diet. Encourage po intake. +ostomy output. Ok for stepdown. Caitlin Briseno MD Images from the original note were not included. 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 Fascitis sacral wound and the kassidy anal area and the pubic symphysis Cx 07/19/24 bacteroides ad mixed normal citlali 07/19 I&D 07/20 debridement tunneling to the pubic symphysis 07/22 open Transverse diverting colostomy placed 07/26 debridement of the sacral wound Septic shock, controlled Leukemoid reaction persistent Thrombocytosis Intubated then extubated 07/28 CRP 187 elevated Other: Diabetes type 2 Discussion / summary of stay / plan of care/ Recommendations: HENCE: Concern for sacral osteo w exposed bone - and wound tunnels to the perianal area - all I/Dd and last time necrotic tissue was resected was 07/26- Allergy to PNC unclear type and tolerated meropenem in past- Has been on cefepime and flagyl along and steroids have been stopped few days ago WBC response is very slow but thrombocytopenia forming Extubated and 07/28 CXR P edema Hence 07/28 switch to meropenem and track CRP and WBC response CRP 534 - 187 - 187 WBC 30 - 21 Infection Control Recommendations [place] Precautions Antimicrobial Stewardship Recommendations Simplification of therapy Targeted therapy History of Present Illness: Initial history: Divina Amin is a 63 y.o.-year-old female transferred from because of concern of necrotizing fasciitis over the sacral area. History of increasing pain in that area with an open sacral wound. Denied abdominal pain but had nausea vomiting fevers diarrhea and was short of breath. Patient smoker, no pneumonia found but the patient noticed over the supraglottic, within the pubic area. Stable for multiple debridements, leukocytosis/leukemoid reaction present but he has not improved despite antibiotic therapy. Clinically thrombocytopenia seems to be forming, infectious disease consulted for antibiotic management. I called the lab and the wound is really growing Bacteroides as well as strep viridans. From 07/19. Interval changes 07/29/2024 Patient Vitals for the past 8 hrs: BP Temp Temp src Pulse Resp SpO2 07/29/241999 -- -- -- -- 30 -- 07/29/24 1805 (!) 138/59 -- -- (!) 105 22 98 % 07/29/24 1800 (!) 158/125 98.6 F (37 C) Oral (!) 103 22 98 % 07/29/24 1700 (!) 139/36 -- -- 99 24 100 % 07/29/24 1600 134/76 98.6 F (37 C) Oral (!) 103 23 100 % 07/29/24 1500 (!) 120/47 -- -- 98 24 -- 07/29 No fever and no chills - abd soft non tender- NC - obese -lethargic Needed bypap earlier 37C temp - WBC 21 - better CRP better Summary of relevant labs: Labs: Wbc 29 -30 -26 - 21 Plts 411 - 590 CRP 534 - 187 - 187 Micro: blood culture 07/25 neg Sacra wound cx 07/19 mixed citlali and bacteroides-strep viridens Procedures Cardiology Imaging: Cxr p edema Ctap 07/25 . Small bilateral pleural effusions with bilateral lower [...] size since 09/09/2022. Correlate with mammographic imaging. I have personally reviewed the past medical history, past surgical history, medications, social history, and family history, and I haveupdated the database accordingly. Allergies: Latex, Amoxicillin, and Penicillins Review of Systems: Review of Systems Constitutional: Positive for activity change. Eyes: Negative for discharge. Respiratory: Negative for apnea. Endocrine: Negative for polyphagia. Genitourinary: Negative for dysuria. Physical Examination : Physical Exam Constitutional: General: She is not in acute distress. Appearance: Normal appearance. She is obese. She is not ill-appearing. HENT: Head: Normocephalic and atraumatic. Nose: Nose normal. Mouth/Throat: Mouth: Mucous membranes are moist. Eyes: General: No scleral icterus. Conjunctiva/sclera: Conjunctivae normal. Cardiovascular: Rate and Rhythm: Normal rate and regular rhythm. Heart sounds: No murmur heard. No friction rub. Pulmonary: Effort: No respiratory distress. Breath sounds: No stridor. No wheezing. Abdominal: General: There is no distension. Tenderness: There is no abdominal tenderness. Musculoskeletal: General: No swelling or deformity. Cervical back: No rigidity or tenderness. Skin: Coloration: Skin is not jaundiced. Findings: No bruising. Neurological: Mental Status: She is alert. Cranial Nerves: No cranial nerve deficit. Psychiatric: Mood and Affect: Mood normal. Past Medical History: Past Medical History: Diagnosis Date COPD (chronic obstructive pulmonary disease) (HCC) Diabetes (HCC) Morbid obesity (HCC) Past Surgical History: Past Surgical History: Procedure Laterality Date ABDOMEN SURGERY Left 07/22/2024 SHARP EXCISION OF SACRAL WOUND DOWN TO MUSCLE performed by Caitlin Briseno MD at [facility] OR SECTION x 2 CHOLECYSTECTOMY COLOSTOMY N/A 07/22/2024 ATTEMPTED LAPAROSCOPIC COLOSTOMY, CONVERTED TO OPEN TO MAKE DIVERTING LOOP COLOSTOMY performed by Caitlin Briseno MD at [facility] OR LEG SURGERY Left 09/03/2022 DEBRIDEMENT THIGH, GROIN, BUTTOCK performed by Janak Shaffer MD at [facility] OR LEG SURGERY Left 09/04/2022 DEBRIDEMENT THIGH, GROIN, BUTTOCK performed by Janak Shaffer MD at [facility] OR LEG SURGERY Left 09/02/2022 DEBRIDEMENT INCISION AND DRAINAGE OF LEFT THIGH, LEFT GROIN AND LEFT BUTTOCKS performed by rTaci Maya MD at [facility] OR LEG SURGERY Left 07/20/2024 LEFT BUTTOCK DEBRIDEMENT performed by Janak Shaffer MD at [facility] OR PERINEAL SURGERY Left 07/19/2024 E2 [id number] DEBRIDEMENT DOWN TO AND INCLUDING MUSCLE AND FASCIA LEFT BUTTOCK AND GROIN performed by Alisia Cuellar MD at [facility] OR PRESSURE ULCER DEBRIDEMENT Left 07/26/2024 LEFT BUTTOCKS ULCER DEBRIDEMENT performed by Lizzy Whalen MD at [facility] OR Medications: pantoprazole 40 mg Oral QAM AC enoxaparin 30 mg SubCUTAneous BID potassium phosphate IVPB (PERIPHERAL LINE) 10 mmol IntraVENous Once insulin glargine 35 Units SubCUTAneous BID meropenem 1,000 mg IntraVENous Q8H insulin lispro 0-16 Units SubCUTAneous Q4H acetaminophen 1,000 mg Oral 3 times per day gabapentin 300 mg Oral 3 times per day midodrine 10 mg Oral TID [Held by provider] lisinopril 5 mg Oral Daily PARoxetine 10 mg Oral Daily pravastatin 20 mg Oral Daily [Held by provider] spironolactone 25 mg Oral Daily [Held by provider] hydroCHLOROthiazide 25 mg Oral Daily [Held by provider] glipiZIDE 10 mg Oral BID sennosides-docusate sodium 2 tablet Oral BID polyethylene glycol 17 g Oral Daily Social History: Social History Socioeconomic History Marital status: Spouse name: Not on file Number of children: Not on file Years of education: Not on file Highest education level: Not on file Occupational History Not on file Tobacco Use Smoking status: Every Day Current packs/day: 0.00 Types: Cigarettes Last attempt to quit: 08/11/2022 Years since quittin.9 Passive exposure: Past Smokeless tobacco: Never Vaping Use Vaping status: Never Used Substance and Sexual Activity Alcohol use: Never Drug use: Never Sexual activity: Not Currently Other Topics Concern Not on file Social History Narrative Not on file Social Drivers of Health Financial Resource Strain: Medium Risk (12/05/2023) Received from [facility] Overall Financial Resource Strain (CARDIA) Difficulty of Paying Living Expenses: Somewhat hard Food Insecurity: Food Insecurity Present (12/05/2023) Received from [facility] Hunger Vital Sign Worried About Running Out of Food in the Last Year: Sometimes true Ran Out of Food in the Last Year: Sometimes true Transportation Needs: No Transportation Needs (12/05/2023) Received from [facility] PRAPARE - Transportation Lack of Transportation (Medical): No Lack of Transportation (Non-Medical): No Physical Activity: Insufficiently Active (12/05/2023) Received from [facility] Exercise Vital Sign Days of Exercise per Week: 4 days Minutes of Exercise per Session: 20 min Stress: No Stress Concern Present (12/05/2023) Received from [facility] [employer] [place] [employer] - Occupational Stress Questionnaire Feeling of Stress : Only a little Social Connections: Socially Isolated (12/05/2023) Received from [facility] Social Connection and Isolation Panel [NHANES] Frequency of Communication with Friends and Family: Once a week Frequency of Social Gatherings with Friends and Family: Never Attends Mandaeism Services: Never Active Member of Clubs or Organizations: No Attends Club or Organization Meetings: Never Marital Status: Intimate Partner Violence: Not on file Housing Stability: Unknown (12/05/2023) Received from [facility] Housing Stability Vital Sign Unable to Pay for Housing in the Last Year: No Number of Times Moved in the Last Year: Not on file Homeless in the Last Year: No Family History: No family history on file. Medical Decision Making: I have independently reviewed/ordered the following labs: CBC with Differential: Recent Labs 07/28/24 0525 07/29/24 0505 WBC 26.9* 21.9* HGB 7.3* 7.7* HCT 24.4* 26.9* PLT 590* 554* LYMPHOPCT 11* 11* MONOPCT 6 7 EOSPCT 2 1 BMP: Recent Labs 07/28/24 0525 07/29/24 0505 NA 148* 151* K 4.1 4.3 CL 118* 120* CO2 23 22 BUN 37* 27* CREATININE 0.9 0.8 MG 2.2 2.0 Hepatic Function Panel: No results for input(s): LABALBU , BILIDIR , IBILI , BILITOT , ALKPHOS , ALT , AST in the last 72 hours. Invalid input(s): PROT No results for input(s): RPR in the last 72 hours. No results for input(s): HIV in the last 72 hours. No results for input(s): BC in the last 72 hours. Lab Results Component Value Date/Time CREATININE 0.8 07/29/2024 05:05 AM GLUCOSE 133 07/29/2024 05:05 AM Detailed results: Thank you for allowing us to participate in the care of this patient.Please call with questions. This note is created with the assistance of a speech recognition program. While intending to generate adocument that actually reflects the content of the visit, the document can still have some errors including those of syntax and sound a like substitutions which may escape proof reading. It such instances, actual meaningcan be extrapolated by contextual diversion. Nuvia Baker MD Office: [facility] / office [phone] Comprehensive Nutrition Assessment Type and Reason for Visit: Reassess Nutrition Recommendations/Plan: Modify diet to 4 CHO choice, double protein portions Continue Ensure ONS TID Monitor intakes, ONS, weight, skin, labs, GI status, fluid status. Malnutrition Assessment: Malnutrition Status: Insufficient data (07/20/24 1129) Context: Acute Illness Nutrition Assessment: TF off at visit. Pt is extubated. Resting in bed on BIPAP at visit. Pt on CLD at visit and now advanced to regular. Pt agreeble to supplement diet with Clear Ensure at visit. +colostomy with 350 mL / 24 hours. Labs include Na 151, Cl 120, Phos 2.4. Nutrition Related Findings: Meds/labs reviewed. Switched to subQ insulin LBM 07/27. A1c 14.8% (07/24/24) Wound Type: Surgical Incision, Open Wounds (nec fasc) Current Nutrition Intake & Therapies: Average Meal Intake: 1-25% Average Supplements Intake: None Ordered ADULT DIET; Regular ADULT ORAL NUTRITION SUPPLEMENT; Breakfast, Lunch, Dinner; Standard High Calorie/High Protein Oral Supplement Additional Calorie Sources: None Anthropometric Measures: Height: 157.5 cm (5' 2.01 ) [place] Body Weight (IBW): 110 lbs (50 kg) Current Body Weight: 146 kg (321 lb 14 oz), 304.6 % IBW. Weight Source: Bed scale Current BMI (kg/m2): 58.9 BMI Categories: Obese Class 3 (BMI 40.0 or greater) Estimated Daily Nutrient Needs: Energy Requirements Based On: Kcal/kg Weight Used for Energy Requirements: Current Energy (kcal/day): 5644-8010 kcal/d Weight Used for Protein Requirements: [place] Protein (g/day): 110-135 gm/d Method Used for Fluid Requirements: 1 ml/kcal Fluid (ml/day): 4011-3349 mL/d Nutrition Diagnosis: Inadequate oral intake related to increase demand for energy/nutrients as evidenced by intake 0-25%, wounds Nutrition Interventions: Food and/or Nutrient Delivery: Continue Current Diet, Start Oral Nutrition Supplement Nutrition Education/Counseling: Education/Counseling needed Coordination of Nutrition Care: Continue to monitor while inpatient Plan of Care discussed with: pt Goals: Goals: Meet at least 75% of estimated needs, prior to discharge Type of Goal: New goal Previous Goal Met: New Goal Nutrition Monitoring and Evaluation: Behavioral-Environmental Outcomes: None Identified Food/Nutrient Intake Outcomes: Food and Nutrient Intake, Supplement Intake Physical Signs/Symptoms Outcomes: Skin, Weight, Biochemical Data, GI Status Discharge Planning: Too soon to determine Christina Hernandez RD Contact: [phone] [facility] Nurse NAME: Divina Amin AGE: 63 y.o. GENDER: female : 1960 TODAY'S DATE: 07/29/2024 Subjective: Reason for WOCN Evaluation and Assessment: LUQ New loop colostomy with bridge. Would appreciate evaluation for sealing around bridge. Divina Amin is a 63 y.o. female referred by: [x] Physician [] Nursing [] Other: Diverting loop colostomy. Gluteal/perianal necrotizing fasciitis s/p debridement. Ms Amin is awake, on NIVS, does not interact outside of facial grimaces and head shaking with ostomy care. Objective: BP (!) 117/54 Pulse 94 Temp 99.9 F (37.7 C) Resp 22 Ht 1.575 m (5' 2.01 ) Wt (!) 146 kg (321 lb 14 oz) SpO2 100% BMI 58.86 kg/m Rohith Risk Score: Rohith Scale Score: 12 LABS CBC: Lab Results Component Value Date/Time WBC 21.9 07/29/2024 05:05 AM RBC 2.63 07/29/2024 05:05 AM HGB 7.7 07/29/2024 05:05 AM HCT 26.9 07/29/2024 05:05 AM CMP: Albumin: No results found for: LABALBU PT/INR: Lab Results Component Value Date/Time PROTIME 16.8 07/19/2024 07:33 PM INR 1.3 07/19/2024 07:33 PM HgBA1c: Lab Results Component Value Date/Time LABA1C 14.8 07/24/2024 05:24 AM PTT: No components found for: LABPTT Assessment: Measurements: 07/29/24 1001 Colostomy LUQ Loop Placement Date/Time: 07/22/24 1715 Location: LUQ Colostomy Type: Loop Stomal Appliance 2 piece;Clean, dry & intact;Changed Flange Size (inches) 4 Inches Stoma Assessment Moist;[place];Protrudes (55 x 68 mm) Peristomal Assessment Clean, dry & intact Mucocutaneous Junction Intact Treatment Site care;Liquid skin barrier;Barrier ring;Pouch change Stool Appearance Soft;Loose Stool Color Brown Output (mL) 150 ml Plan: Cleanse the peristomal skin with warm water only. Dry well. Apply SurePrep [place] to the peristomal skin. Cut pouch barrier to fit stoma with no more than 1/8 of exposed skin. Currently 55 mm x 68 mm oval. Apply a Brava Protective Seal to the peristomal skin from 2-10 o'clock; leave the superior bridge out. Use the two piece system to place the superior bridge arms into the pouching system Empty the pouch when 1/3 to 1/2 full. Change the pouching system twice weekly and prn leakage Routine pressure injury prevention methods Dry pillow cases to skin folds Surgical wound and incisional care per the surgeon's orders. Supplies: Coloplast [employer] [place] #[id number] Flex Flat Barrier Coloplast [employer] #[id number] Flex MAXI Drainable Pouch Coloplast Brava Protective Seal Liquid skin protectant (no-sting) Adhesive Remover Images from the original note were not included. Pharmacist Review and Automatic Dose Adjustment of Prophylactic Enoxaparin Reviewed reason(s) for admission/hospital problem list The reviewing pharmacist has made an adjustment to the ordered enoxaparin dose or converted to UFH per the approved [facility] protocol and table as identified below. Divina Amin is a 63 y.o. female. Recent Labs 07/27/24 0316 07/28/24 0525 07/29/24 0505 CREATININE 0.9 0.9 0.8 Estimated Creatinine Clearance: 102 mL/min (based on SCr of 0.8 mg/dL). Recent Labs 07/28/24 0525 07/29/24 0505 HGB 7.3* 7.7* HCT 24.4* 26.9* PLT 590* 554* No results for input(s): INR in the last 72 hours. Height: Ht Readings from Last 1 Encounters: 07/23/24 1.575 m (5' 2.01 ) Weight: Wt Readings from Last 1 Encounters: 07/29/24 (!) 146 kg (321 lb 14 oz) Plan: Based upon the patient's weight and renal function Ordered: Enoxaparin 40mg SUBQ Daily Changed/converted to New Order: Enoxaparin 30mg SUBQ BID Thank you, Rodrigo Mead RPH 07/29/2024, 9:18 AM 07/29/24 0851 Care Plan - Respiratory Goals Achieves optimal ventilation and oxygenation Assess for changes in mentation and behavior;Assess for changes in respiratory status;Position to facilitate oxygenation and minimize respiratory effort;Oxygen supplementation based on oxygen saturation or arterial blood gases;Encourage broncho-pulmonary hygiene including cough, deep breathe, incentive spirometry;Assess the need for suctioning and aspirate as needed;Assess and instruct to report shortness of breath or any respiratory difficulty;Respiratory therapy support as indicated Images from the original note were not included. ICU PROGRESS NOTE PATIENT NAME: Divina Amin DATE: 07/29/2024 HD: # 10 63 years old female with past medical history of morbid obesity, diabetes, and COPD. Presented with left buttock wound. Patient presented to outside hospital emergency department had imaging which revealed extensive infection changes with crepitus concerning for necrotizing fasciitis. Patient was treated with vancomycin and ceftazidime, 3 L of LR bolus and was sent to [facility] for further management. Patient also received cefepime 2 g IV, clindamycin 900 mg IV and initiated Levophed infusion with MAP goal of 65. General surgery consulted due to necrotizing soft tissue infection. Patient went to the OR, 20 x 31 cm debridement down to and including muscle and fascia left buttock and groin. Finding shows deep infection muscle/fascia present as evidenced by purulent fluid and fluid consistent with infection. Other findings shows debrided down to the level of bone. Patient brought to the ICU intubated and sedated for further management. 07/20: OR: Debridement, wound bed measuring 20 x 31 cm, pack. Wound tunneled down to the ischial bone. 07/21: OR: Debridement, wound tunneled to the pubic symphysis. Wound measurement 40 x 55 cm. 07/23: OR for wound debridement, washout, dakins wet to dry. Attempted lap loop colostomy converted to open due to adhesions. Given FFP for TEG/ 07/24: TF to goal. Precedex started. 07/25: Leukocytosis. CT imaging negative for new finding. Blood cultures sent. 07/26: OR for debridement. 1u pRBC. D/Jose insulin gtt and started Lantus with HDSS. 07/27: Long SBT but had increased secretions. 07/28: Extubated ACUTE DIAGNOSES/PLAN Neuro: GCS 15T MMPT Gabapentin, Tylenol, Morphine 2mg q4hrs, Advil 600 q6hrs prn, oxy 5mg q6hrs Paxil Doesn't talk, mentation appears low this morning - possible hypercapnic vs polypharmacy vs baseline mental state vs delirium CV HR: 98-117 SBP: 105-51 Maps: 59-99 Levo titrated off yesterday On home midodrine 10 mg TID and statin Echo 07/20: EF 55-60%, normal diastolic function. Mild pulm HTN. Pulm 4L NC O2 Sat: 94-100% CPAP not done overnight, if decreased mental status, consider Bipap CXR: Persistent pulmonary edema. GI/Nutrition Diet: ADULT DIET; Clear Liquid; 3 carb choices (45 gm/meal) - Advance diet today Prophylaxis: Pepcid ( discontinue today, will add home protonix) Transverse loop colostomy: 350 cc /24 hours OR 07/23: Loop transverse colostomy creation, attempted laparoscopic but converted to mini laparotomy Senokot BID Home meds restarted as appropriate Renal/lytes NA/K: 151/4.3 BUN/CR: 27/0.8 Mag/Phos: 2.0/2.4 Ical: 1.21 Electrolytes replaced No fluids , discontinued this morning UOP: 2905/ 24 hours, 0.8 mL/kg/h Heme/ ID DVT prophylaxis- lovenox 30 BID Hbg 7.7 from 7.3, 7.4 Plts: 554 Transfusions Totals: 2u pRBC, 1u FFP WBC 21.9 from 26.9, 30.5 Tmax 100.3 ID consulted - Meropenem: q8 first dose 07/28 - Cefepime 2g q12hr (07/19) d/c - Flagyl 500mg q8hr (07/19-07/26) -S/P Rocephin (07-19-07/22), Clindamycin (07/19-07/22), Vancomycin (07/21-07/22) Endocrine Hx of DM Glucose: - HDSS - Lantus 35 BID -Transitioned off insulin gtt 07/26 Methylprednisolone stress dose: Discontinued on 07/23 Musculoskeletal Left buttock wound which related to Necrotizing fascitis. OR 07/19: Debridement wound bed 20 x 31 cm OR 07/20: Debridement wound bed 40 x 55 cm OR 07/22: Debridement 40 x 55 cm OR 07/26: Debridement 29 x 25 cm Will continue daily dressing changes Family/dispo Transfer out today Lines Right IJ CVC (07/24) Urinary catheter 07/20 CHECKLIST CAM-ICU RASS: na RESTRAINTS: na IVF: dc NUTRITION: CLD ANTIBIOTICS: yes GI: protonix DVT: Lovenox GLYCEMIC CONTROL: Lantus & HDSS HOB >45: yes MOBILITY: none SBT: na IS: yes Wound care: yes Chief Complaint: Necrotizing fascitis infection/intubated/sedated on ventilation SUBJECTIVE Divina Amin 63 years old female intubated in ICU for nec fasc, requiring multiple operations for debridements. Overnight, patient extubated yesterday and doing well overall. OBJECTIVE VITALS: Vitals: 07/29/24 0600 BP: Pulse: (!) 105 Resp: 23 Temp: 100 F (37.8 C) SpO2: 98% Physical Exam Constitutional: Appearance: She is morbidly obese. Interventions: She is sedated and intubated. HENT: Head: Normocephalic and atraumatic. Nose: Nose normal. Eyes: Conjunctiva/sclera: Conjunctivae normal. Cardiovascular: Rate and Rhythm: Regular rhythm. Pulses: Normal pulses. Pulmonary: Effort: She is intubated. Breath sounds: Normal breath sounds and air entry. No decreased air movement or transmitted upper airway sounds. Abdominal: General: Bowel sounds are normal. Palpations: Abdomen is soft. Musculoskeletal: Right lower leg: No edema. Left lower leg: No edema. Comments: Dressing to surgical wound Neurological: Comments: Appropriate LAB: CBC: Recent Labs 07/27/246 07/28/24 0525 07/29/24 0505 WBC 30.5* 26.9* 21.9* HGB 7.4* 7.3* 7.7* HCT 23.7* 24.4* 26.9* MCV 93.3 96.1 102.3 PLT 420 590* 554* BMP: Recent Labs 07/27/2431507/28/24 0525 07/29/24 0505 NA 146* 148* 151* K 4.5 4.1 4.3 CL 115* 118* 120* CO2 21 23 22 BUN 35* 37* 27* CREATININE 0.9 0.9 0.8 GLUCOSE 266* 287* 133* RADIOLOGY: XR CHEST PORTABLE Result Date: 07/28/2024 1. Stable appearance of support lines and tubes. 2. Persistent pulmonary edema. Cosigned by Caitlin Briseno MD at 07/29/2024 9:15 AM EDT Associated attestation - Caitlin Briseno MD - 07/29/2024 9:15 AM EDT I personally evaluated the patient and directed the medical decision making with Resident after the physical/radiologic exam and laboratory values were reviewed and confirmed. Doing okay. On bipap this morning. No in any resp difficulty. Will do intermittent bipap. Switch fluids to d51/2. Encourage Po intake. Dc hunter. DC central line. Remain in ICU. Caitlin Briseno MD Patient became hypertensive and Heart rate 130's, informed Dr. Eastman with trauma services. New order received for prn fentanyl (See APR) for administration. Pt able to lift head off pillow: Yes Positive Cuff Leak: Yes Order obtained for extubation.yes SpO2 of 99 on 40% FiO2. Patient extubated and placed on 4 liters/min via nasal cannula. Post extubation SpO2 is 99% with HR 108 bpm and RR 24 breaths/min. Patient had mild cough that was productive of clear sputum. Extubation Well tolerated by patient.. Breath Sounds: rhonchi dim Cayetano Toscano RCP 2:05 PM Respiratory, bedside RN, and Dr. Eastman at bedside for extubation. Patient tolerated well. Patient placed on nasal cannula 4L. Nutrition Note RN reports having elevated blood sugars (248-287 mg/dL) and asking if Tube Feeding formula can be switched to Diabetic. Spoke with General Surgery Resident about changing TF formula to help improve blood sugars. Suggest switching to Diabetic (Glucerna 1.5) formula goal 35 mL/hr with 3 Protein modulars daily. Will provide 1476 kcals, 123 gm protein daily. Monitor TF tolerance/adequacy of intakes and blood sugars - adjust as needed. For additional information, refer to full RD assessment from 07/25/24. Contact: [phone] Images from the original note were not included. ICU PROGRESS NOTE PATIENT NAME: Divina Amin DATE: 07/28/2024 HD: # 9 63 years old female with past medical history of morbid obesity, diabetes, and COPD. Presented with left buttock wound. Patient presented to outside hospital emergency department had imaging which revealed extensive infection changes with crepitus concerning for necrotizing fasciitis. Patient was treated with vancomycin and ceftazidime, 3 L of LR bolus and was sent to [facility] for further management. Patient also received cefepime 2 g IV, clindamycin 900 mg IV and initiated Levophed infusion with MAP goal of 65. General surgery consulted due to necrotizing soft tissue infection. Patient went to the OR, 20 x 31 cm debridement down to and including muscle and fascia left buttock and groin. Finding shows deep infection muscle/fascia present as evidenced by purulent fluid and fluid consistent with infection. Other findings shows debrided down to the level of bone. Patient brought to the ICU intubated and sedated for further management. 07/20: OR: Debridement, wound bed measuring 20 x 31 cm, pack. Wound tunneled down to the ischial bone. 07/21: OR: Debridement, wound tunneled to the pubic symphysis. Wound measurement 40 x 55 cm. 07/23: OR for wound debridement, washout, dakins wet to dry. Attempted lap loop colostomy converted to open due to adhesions. Given FFP for TEG/ 07/24: TF to goal. Precedex started. 07/25: Leukocytosis. CT imaging negative for new finding. Blood cultures sent. 07/26: OR for debridement. 1u pRBC. D/Jose insulin gtt and started Lantus with HDSS. 07/27: Long SBT but had increased secretions. ACUTE DIAGNOSES/PLAN Neuro: Sedated: Fentanyl 50 and Precedex 0.2 GCS 11T MMPT CV HR: 40s-100s SBP: 90s-140s Maps: 53-90 On 8 levo overnight On home midodrine 10 mg TID Echo 07/20: EF 55-60%, normal diastolic function. Mild pulm HTN. Pulm Intubated, PRVC ovn 22/500/8/40% AB.38 / 38 / 96 / 22.7 Will plan to SBT today CXR: Prominent pulmonary vasculature and interstitial markings, similar to the prior study. GI/Nutrition Diet: ADULT TUBE FEEDING; Nasogastric; Immune Enhancing; Continuous; 35; No; 30; Q 4 hours; Protein; 1 Dose; TID Prophylaxis: Pepcid Transverse loop colostomy: 175 cc /24 hours OR 07/23: Loop transverse colostomy creation, attempted laparoscopic but converted to mini laparotomy Senokot BID Home meds restarted as appropriate Renal/lytes NA/K: 148/4.1 BUN/CR: 37/0.9 Mag/Phos: 2.2/2.2 Ical: 1.14 Electrolytes replaced No fluids UOP: 1,675/ 24 hours, 0.47 mL/kg/h Heme/ ID DVT prophylaxis- lovenox 30 BID Hbg 7.3 (7.4, 8.6) Transfusions Totals: 2u pRBC, 1u FFP WBC 26.9 (30.5, 29.5) Tmax 100.7 - Cefepime 2g q12hr (07/19) - Flagyl 500mg q8hr (07/19-07/26) -S/P Rocephin (07-19-07/22), Clindamycin (07/19-07/22), Vancomycin (07/21-07/22) Endocrine Hx of DM Glucose: - HDSS - Lantus 35 BID -Transitioned of insulin gtt 07/26 Methylprednisolone stress dose: Discontinued on 07/23 Musculoskeletal Left buttock wound which related to Necrotizing fascitis. OR 07/19: Debridement wound bed 20 x 31 cm OR 07/20: Debridement wound bed 40 x 55 cm OR 07/22: Debridement 40 x 55 cm OR 07/26: Debridement 29 x 25 cm Will continue daily dressing changes Family/dispo Maintain in the ICU Lines Right IJ CVC (07/24) OG 07/20 ETT 07/19 Urinary catheter 07/20 CHECKLIST CAM-ICU RASS: -1 RESTRAINTS: yes IVF: none NUTRITION: TF ANTIBIOTICS: cefepime GI: Pepcid switching to home Protonix once extubated DVT: Lovenox GLYCEMIC CONTROL: Lantus & HDSS HOB >45: yes MOBILITY: none SBT: Daily IS: N/A Wound care: yes Chief Complaint: Necrotizing fascitis infection/intubated/sedated on ventilation SUBJECTIVE Divina Amin 63 years old female intubated in ICU for nec fasc, requiring multiple operations for debridements. Overnight, patient had mild hypotension with SBP in the 90s. Tmax of 100.7 F overnight, given 15 mg Toradol and 500 mL 0.9 NaCl bolus. OBJECTIVE VITALS: Vitals: 07/28/24 0323 BP: Pulse: 54 Resp: 22 Temp: SpO2: 100% Physical Exam Constitutional: Appearance: She is morbidly obese. Interventions: She is sedated and intubated. HENT: Head: Normocephalic and atraumatic. Nose: Nose normal. Eyes: Conjunctiva/sclera: Conjunctivae normal. Cardiovascular: Rate and Rhythm: Regular rhythm. Pulses: Normal pulses. Pulmonary: Effort: She is intubated. Breath sounds: Normal breath sounds and air entry. No decreased air movement or transmitted upper airway sounds. Abdominal: General: Bowel sounds are normal. Palpations: Abdomen is soft. Musculoskeletal: Right lower leg: No edema. Left lower leg: No edema. Comments: Dressing to surgical wound Neurological: Comments: Patient is intubated and sedated on ventilator LAB: CBC: Recent Labs 07/26/24 1556 07/27/24 0316 07/28/24 0525 WBC 29.5* 30.5* 26.9* HGB 8.6* 7.4* 7.3* HCT 27.2* 23.7* 24.4* MCV 93.2 93.3 96.1 PLT 411 420 590* BMP: Recent Labs 07/26/24 1605 07/27/24 0316 07/28/24 0525 NA 146* 146* 148* K 4.4 4.5 4.1 CL 115* 115* 118* CO2 21 21 23 BUN 34* 35* 37* CREATININE 0.8 0.9 0.9 GLUCOSE 169* 266* 287* RADIOLOGY: XR CHEST PORTABLE Result Date: 07/27/2024 1. Prominent pulmonary vasculature and interstitial markings, similar to the prior study. XR CHEST PORTABLE Result Date: 07/26/2024 Pulmonary vascular congestion Right basilar opacities suggesting atelectasis XR CHEST PORTABLE Result Date: 07/26/2024 1. Stable lines and tubes. 2. Similar mild pulmonary vascular congestion with small left pleural effusion. CT CHEST ABDOMEN PELVIS W CONTRAST Additional Contrast? None Result Date: 07/25/2024 1. Small bilateral pleural effusions with bilateral [...] size since 09/09/2022. Correlate with mammographic imaging. Cosigned by Lizzy Whalen MD at 07/28/2024 12:02 PM EDT Associated attestation - Lizzy Whalen MD - 07/28/2024 12:02 PM EDT I personally examined the patient, directed the medical decision-making, and am in agreement with the Resident/MYRTLE after the physical/radiologic exam and laboratory values were reviewed and confirmed. 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 Wound tunneled down to the ischial bone 07/20: OR: Debridement, wound tunneled to the pubic symphysis. Wound measurement 40 x 55 cm 07/22: SED sacrum, lap converted to open loop transverse diverting colostomy 07/26: SED sacral wound GCS 11T, fent, dex gtt's HDS - Levo 8 --> 4 - SBP goal > 100 - Echo 07/20 w/ EF 55%, mild pulm HTN Min vent settings - SAT/SBT - SBT'ed for 12 hrs yesterday - poss extubation today NPO, TF at goal, HLIV - Colostomy - 225cc/24h; leave bridge in place [address] Briseno - 07/21 CT A/P without intra-abdominal pathology Renal: Cr 0.9 from 0.9 from 0.8 from 0.9 from 1.1 from 1.3 from 1.3 from 1.8 from 2.1 - UF 1960 from 2230 from 2380 from 2445 from 3065 from 1900 from 2675 from 3640cc/h H/ID: WBC 26 from 30 from 35 from 39 from 26 from 16 from 18 from 26 - Hgb 7.3 from 7.4 from 8.6 from 6.8 from 7.4 from 7.6 from 7.6 from 7.8 from 8.6 - Vanc/clinda/ceftri/flagyl --> switched to cefepime/flagyl on 07/22 - Switch to zosyn for persistent WBC Endo: hx/o DM - insulin - inc Lantus to 35 BID - stress dose steroids off 07/23 MSK - daily dressing change MPOA (daughter - Mercy Felix) VTE ppx - Lovenox 30 BID; SUP - Pepcid Full code - family wishes to proceed with all aggressive care L IJ CVC (pressor reqs), ETT, OGT, Hunter (for wound) Crit Care Time: 35 min S. Obed Whalen MD, FACS Acute Care Surgery Attending [facility] 07/27/242026 Vent Information Vent Mode (S) AC/PRVC (Ended wean trial and placed Pt. back on AC/PRVC settings to rest for the night.) Ventilator Settings Vt (Set, mL) (S) 500 mL Resp Rate (Set) (S) 22 bpm PEEP/CPAP (cmH2O) (S) 8 FiO2 (S) 40 % Tax Services Specialist spoke to Dr. Eastman about wound care for patient. Dressing changes are to be done by trauma services, not nursing department. Nursing may reinforce dressings however. Images from the original note were not included. ICU PROGRESS NOTE PATIENT NAME: Divina Amin DATE: 07/27/2024 HD: # 8 63 years old female with past medical history of morbid obesity, diabetes, and COPD. Presented with left buttock wound. Patient presented to outside hospital emergency department had imaging which revealed extensive infection changes with crepitus concerning for necrotizing fasciitis. Patient was treated with vancomycin and ceftazidime, 3 L of LR bolus and was sent to [facility] for further management. Patient also received cefepime 2 g IV, clindamycin 900 mg IV and initiated Levophed infusion with MAP goal of 65. General surgery consulted due to necrotizing soft tissue infection. Patient went to the OR, 20 x 31 cm debridement down to and including muscle and fascia left buttock and groin. Finding shows deep infection muscle/fascia present as evidenced by purulent fluid and fluid consistent with infection. Other findings shows debrided down to the level of bone. Patient brought to the ICU intubated and sedated for further management. 07/20: OR: Debridement, wound bed measuring 20 x 31 cm, pack. Wound tunneled down to the ischial bone. 07/21: OR: Debridement, wound tunneled to the pubic symphysis. Wound measurement 40 x 55 cm. 07/23: OR for wound debridement, washout, dakins wet to dry. Attempted lap loop colostomy converted to open due to adhesions. ACUTE DIAGNOSES/PLAN Neuro: Sedated GCS 11t Fentanyl/ precedex MMPT Will attempt SAT today CV Heart rate SBP: 93- 126 Maps: 53-73 On 3 levo overnight On home midodrine Echo 07/20: EF 55-60%, normal diastolic function. Mild pulm HTN. Pulm Intubated, PRVC ovn 22/500/8/40% AB.38 / 38 / 96 / 22.7 Will plan to SBT today CXR: Prominent pulmonary vasculature and interstitial markings, similar to the prior study. GI/Nutrition Diet: ADULT TUBE FEEDING; Nasogastric; Immune Enhancing; Continuous; 35; No; 30; Q 4 hours; Protein; 1 Dose; TID Prophylaxis: Pepcid Transverse loop colostomy: 350 cc /24 hours OR 07/23: Loop transverse colostomy creation, attempted laparoscopic but converted to mini laparotomy Senokot BID Home meds restarted as appropriate Renal/lytes NA/K: 146/ 4.5 BUN/CR: 35/0.9 Mag/Phos: 2.1/ 2.5 Ical: 1.14 Electrolytes replaced No fluids UOP: 2230/ 24 hours, 0.6 mL/kg/h Heme/ ID DVT prophylaxis- lovenox 30 BID Platelets 420 Hbg 7.4 from 8.6, 8.3 Transfusions Totals: 2u pRBC, 1u FFP WBC 30.5 from 29.5, 35.9 Afebrile Antibiotics changed overnight - Cefepime 2g q12hr - Flagyl 500mg q8hr ( discontinued after 7 days) Endocrine Hx of DM Glucose: 160 Insulin gtt switched to HDSS yesterday - HDSS - Lantus 10 BID Methylprednisolone stress dose: Discontinued on 07/23 Musculoskeletal Left buttock wound which related to Necrotizing fascitis. OR 07/19: Debridement wound bed 20 x 31 cm OR 07/20: Debridement wound bed 40 x 55 cm OR 07/22: Debridement 40 x55 cm Will continue daily dressing changes Family/dispo Maintain in the ICU Lines Right IJ CVC (07/20) Left rad art line failed, removed OG 07/20 ETT 07/19 Urinary catheter 07/20 CHECKLIST CAM-ICU RASS: -1 RESTRAINTS: yes IVF: none NUTRITION: TF (held for OR) ANTIBIOTICS: cefepime GI: Pepcid switching to home Protonix once extubated DVT: yes GLYCEMIC CONTROL: yes HOB >45: yes MOBILITY: none SBT: yes IS: intubated Wound care: yes Chief Complaint: Necrotizing fascitis infection/intubated/sedated on ventilation SUBJECTIVE Divina Amin 63 years old female intubated in ICU for nec fasc, requiring multiple operations for debridements. Overnight, some hypotension, 2 of levo started and 1u PRBC. Plan: OR for debridment, SAT/SBT OBJECTIVE VITALS: Vitals: 07/27/24 0715 BP: (!) 117/49 Pulse: 63 Resp: 21 Temp: SpO2: 100% Physical Exam Constitutional: Appearance: She is morbidly obese. Interventions: She is sedated and intubated. HENT: Head: Normocephalic and atraumatic. Nose: Nose normal. Eyes: Conjunctiva/sclera: Conjunctivae normal. Cardiovascular: Rate and Rhythm: Regular rhythm. Pulses: Normal pulses. Pulmonary: Effort: She is intubated. Breath sounds: Normal breath sounds and air entry. No decreased air movement or transmitted upper airway sounds. Abdominal: General: Bowel sounds are normal. Palpations: Abdomen is soft. Musculoskeletal: Right lower leg: No edema. Left lower leg: No edema. Comments: Dressing to surgical wound Neurological: Comments: Patient is intubated and sedated on ventilator LAB: CBC: Recent Labs 07/26/24 0402 07/26/24 0638 07/26/24 1556 07/27/24 0316 WBC 35.9* -- 29.5* 30.5* HGB 6.8* 8.3* 8.6* 7.4* HCT 21.3* 26.7* 27.2* 23.7* MCV 92.6 -- 93.2 93.3 PLT 350 -- 411 420 BMP: Recent Labs 07/26/24 0402 07/26/24 1605 07/27/24 0316 NA 147* 146* 146* K 3.9 4.4 4.5 CL 116* 115* 115* CO2 23 21 21 BUN 38* 34* 35* CREATININE 0.8 0.8 0.9 GLUCOSE 136* 169* 266* RADIOLOGY: XR CHEST PORTABLE Result Date: 07/27/2024 1. Prominent pulmonary vasculature and interstitial markings, similar to the prior study. XR CHEST PORTABLE Result Date: 07/26/2024 Pulmonary vascular congestion Right basilar opacities suggesting atelectasis XR CHEST PORTABLE Result Date: 07/26/2024 1. Stable lines and tubes. 2. Similar mild pulmonary vascular congestion with small left pleural effusion. CT CHEST ABDOMEN PELVIS W CONTRAST Additional Contrast? None Result Date: 07/25/2024 1. Small bilateral pleural effusions with bilateral [...] size since 09/09/2022. Correlate with mammographic imaging. Cosigned by Lizzy Whalen MD at 07/27/2024 9:58 PM EDT Associated attestation - Lizzy Whalen MD - 07/27/2024 9:58 PM EDT I personally examined the patient, directed the medical decision-making, and am in agreement with the Resident/MYRTLE after the physical/radiologic exam and laboratory values were reviewed and confirmed. 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 Wound tunneled down to the ischial bone 07/20: OR: Debridement, wound tunneled to the pubic symphysis. Wound measurement 40 x 55 cm 07/22: SED sacrum, lap converted to open loop transverse diverting colostomy 07/26: SED sacral wound GCS 11T, fent, dex gtt's HDS - pressors off; midodrine prn - Echo 07/20 w/ EF 55%, mild pulm HTN Min vent settings - SAT/SBT - SBT'ed NPO, TF at goal, HLIV - Colostomy - bowel sweat; leave bridge in place [address] Briseno - 07/21 CT A/P without intra-abdominal pathology Renal: Cr 0.9 from 0.8 from 0.9 from 1.1 from 1.3 from 1.3 from 1.8 from 2.1 - UF 2230 from 2380 from 2445 from 3065 from 1900 from 2675 from 3640cc/h H/ID: WBC 30 from 35 from 39 from 26 from 16 from 18 from 26 - Hgb 7.4 from 8.6 from 6.8 from 7.4 from 7.6 from 7.6 from 7.8 from 8.6 - Vanc/clinda/ceftri/flagyl --> switched to cefepime/flagyl on 07/22 Endo: hx/o DM - insulin - stress dose steroids off 07/23 MSK - daily dressing change MPOA (daughter - Mercy Felix) VTE ppx - Lovenox 30 BID; SUP - Pepcid Full code - family wishes to proceed with all aggressive care L IJ CVC, ETT, OGT, Hunter (for wound) Crit Care Time: 35 min S. Obed Whalen MD, FACS Acute Care Surgery Attending [facility] Images from the original note were not included. POST OP NOTE SUBJECTIVE Pt s/p necrotizing soft tissue infection of the left buttock/groin. Patient has gone to the OR 4 times for debridement of the wound. OBJECTIVE VITALS: BP (!) 128/53 Pulse 88 Temp 98.2 F (36.8 C) (Bladder) Resp 22 Ht 1.575 m (5' 2.01 ) Wt (!) 145.2 kg (320 lb 1.7 oz) SpO2 100% BMI 58.53 kg/m GENERAL: Intubated and sedated CARDIOVASCULAR: regular rate and rhythm LUNGS: CTA Bilaterally ABDOMEN: Abdomen soft, non-tender, non-distended INCISION: Incision clean/dry/intact ASSESSMENT 1. POD# 0 s/p L buttock ulcer debridement PLAN 1. Pain management- scheduled tylenol, xander, fent gtt and prn oxycodone 2. DVT proph-Lovenox 3. GI proph-Pepcid 4. SAT/SBT to extubate 5. F/u post op labs, CXR and ABG CAT Wills CNP Trauma/Surgery Service 07/26/2024 at 2:49 PM Images from the original note were not included. ICU PROGRESS NOTE PATIENT NAME: Divina Amin DATE: 07/27/2024 HD: # 8 63 years old female with past medical history of morbid obesity, diabetes, and COPD. Presented with left buttock wound. Patient presented to outside hospital emergency department had imaging which revealed extensive infection changes with crepitus concerning for necrotizing fasciitis. Patient was treated with vancomycin and ceftazidime, 3 L of LR bolus and was sent to [facility] for further management. Patient also received cefepime 2 g IV, clindamycin 900 mg IV and initiated Levophed infusion with MAP goal of 65. General surgery consulted due to necrotizing soft tissue infection. Patient went to the OR, 20 x 31 cm debridement down to and including muscle and fascia left buttock and groin. Finding shows deep infection muscle/fascia present as evidenced by purulent fluid and fluid consistent with infection. Other findings shows debrided down to the level of bone. Patient brought to the ICU intubated and sedated for further management. 07/20: OR: Debridement, wound bed measuring 20 x 31 cm, pack. Wound tunneled down to the ischial bone. 07/21: OR: Debridement, wound tunneled to the pubic symphysis. Wound measurement 40 x 55 cm. 07/23: OR for wound debridement, washout, dakins wet to dry. Attempted lap loop colostomy converted to open due to adhesions. ACUTE DIAGNOSES/PLAN Neuro: Sedated: Fentanyl/ precedex/ MMPT CV Heart rate 47-88 SBP: 129- 131 On 2 levo overnight On home midodrine Echo 07/20: EF 55-60%, normal diastolic function. Mild pulm HTN. Pulm Intubated, PRVC ovn 22/500/8/40% AB.39 / 37 / 104 / Will plan to SBT today before or after OR. GI/Nutrition Diet: Diet NPO ADULT TUBE FEEDING; Nasogastric; Immune Enhancing; Continuous; 35; No; 30; Q 4 hours; Protein; 1 Dose; TID Prophylaxis: Pepcid Transverse loop colostomy: 275 cc /24 hours OR 07/23: Loop transverse colostomy creation, attempted laparoscopic but converted to mini laparotomy Senokot BID Home meds restarted as appropriate Renal/lytes NA/K: 147/ 3.9 BUN/CR: 38/0.8 Mag/Phos: 1.9/ 2.3 Ical: 1.14 Electrolytes replaced No fluids UOP: 2380/ 24 hours, 0.7 mL/kg/h Heme/ ID DVT prophylaxis- SubQ heparin 5000 TID Platelets 350 Hbg 8.3 from 6.8, 7.4 Transfused 1u RBC overnight Transfusions Totals: 2u pRBC, 1u FFP WBC 35.9 from 39.2, 41.3 Afebrile Antibiotics changed overnight - Cefepime 2g q12hr - Flagyl 500mg q8hr ( discontinued ) CT chest/abd/pelvis this yesterday showing: small bilateral pleural effusions with bilateral lower lobe atelectasis.Superimposed infection cannot be excluded. Large left sacral decubitus ulcer with gas/debris extending into the left perineum, perirectal space, and left pelvic sidewall, decreased in size compared to prior. The collection abuts the sacrum without definite osseous erosion. Consider MRI sacrum to evaluate for acute osteomyelitis. Status post left upper quadrant diverting loop colostomy. No evidence of acute complication. Endocrine Hx of DM Glucose: 160 Insulin gtt 84 u /24hrs Methylprednisolone stress dose: Discontinued on 07/23 Musculoskeletal Left buttock wound which related to Necrotizing fascitis. OR 07/19: Debridement wound bed 20 x 31 cm OR 07/20: Debridement wound bed 40 x 55 cm OR 07/22: Debridement 40 x55 cm Will plan for OR today for debridement, washout, possible wound vac. Family/dispo Maintain in the ICU Lines Right IJ CVC (07/20) Left rad art line failed, removed OG 07/20 ETT 07/19 Urinary catheter 07/20 CHECKLIST CAM-ICU RASS: -1 RESTRAINTS: yes IVF: none NUTRITION: TF (held for OR) ANTIBIOTICS: cefepime GI: Pepcid switching to home Protonix once extubated DVT: heparin GLYCEMIC CONTROL: yes HOB >45: yes MOBILITY: none SBT: yes IS: intubated Wound care: yes Chief Complaint: Necrotizing fascitis infection/intubated/sedated on ventilation SUBJECTIVE Divina Alec Amin 63 years old female intubated in ICU for nec fasc, requiring multiple operations for debridements. Overnight, some hypotension, 2 of levo started and 1u PRBC. Plan: OR for debridment, SAT/SBT OBJECTIVE VITALS: Vitals: 07/27/24 0715 BP: (!) 117/49 Pulse: 63 Resp: 21 Temp: SpO2: 100% Physical Exam Constitutional: Appearance: She is morbidly obese. Interventions: She is sedated and intubated. HENT: Head: Normocephalic and atraumatic. Nose: Nose normal. Eyes: Conjunctiva/sclera: Conjunctivae normal. Cardiovascular: Rate and Rhythm: Regular rhythm. Pulses: Normal pulses. Pulmonary: Effort: She is intubated. Breath sounds: Normal breath sounds and air entry. No decreased air movement or transmitted upper airway sounds. Abdominal: General: Bowel sounds are normal. Palpations: Abdomen is soft. Musculoskeletal: Right lower leg: No edema. Left lower leg: No edema. Comments: Dressing to surgical wound Neurological: Comments: Patient is intubated and sedated on ventilator LAB: CBC: Recent Labs 07/26/24 0402 07/26/24 0638 07/26/24 1556 07/27/24 0316 WBC 35.9* -- 29.5* 30.5* HGB 6.8* 8.3* 8.6* 7.4* HCT 21.3* 26.7* 27.2* 23.7* MCV 92.6 -- 93.2 93.3 PLT 350 -- 411 420 BMP: Recent Labs 07/26/24 0402 07/26/24 1605 07/27/24 0316 NA 147* 146* 146* K 3.9 4.4 4.5 CL 116* 115* 115* CO2 23 21 21 BUN 38* 34* 35* CREATININE 0.8 0.8 0.9 GLUCOSE 136* 169* 266* RADIOLOGY: XR CHEST PORTABLE Result Date: 07/26/2024 1. Stable lines and tubes. 2. Similar mild pulmonary vascular congestion with small left pleural effusion. CT CHEST ABDOMEN PELVIS W CONTRAST Additional Contrast? None Result Date: 07/25/2024 1. Small bilateral pleural effusions with bilateral [...] size since 09/09/2022. Correlate with mammographic imaging. XR CHEST PORTABLE Result Date: 07/25/2024 1. Stable lines and tubes. 2. Similar mild pulmonary vascular congestion with small pleural effusion. XR CHEST PORTABLE Result Date: 07/25/2024 1. The tubes and lines appear appropriately positioned. 2. Unchanged lung findings with mixed airspace opacities interstitial thickening. Differential includes pulmonary edema and atelectatic changes, with infection not excluded. 3. Small left pleural effusion, unchanged. No pneumothorax. Juan C Coombs DO 07/26/2024, 10:37 AM Cosigned by Lizzy Whalen MD at 07/27/2024 9:59 PM EDT Associated attestation - Lizzy Whalen MD - 07/27/2024 9:59 PM EDT I personally examined the patient, directed the medical decision-making, and am in agreement with the Resident/MYRTLE after the physical/radiologic exam and laboratory values were reviewed and confirmed. 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 Wound tunneled down to the ischial bone 07/20: OR: Debridement, wound tunneled to the pubic symphysis. Wound measurement 40 x 55 cm 07/22: SED sacrum, lap converted to open loop transverse diverting colostomy 07/26: OR today for SED sacral wound GCS 11T, fent, dex gtt's HDS - pressors off; midodrine prn - Echo 07/20 w/ EF 55%, mild pulm HTN Min vent settings - SAT/SBT - SBT'ed NPO, TF at goal, HLIV - Colostomy - bowel sweat; leave bridge in place [address] Briseno - 07/21 CT A/P without intra-abdominal pathology Renal: Cr 0.8 from 0.9 from 1.1 from 1.3 from 1.3 from 1.8 from 2.1 - UF 2380 from 2445 from 3065 from 1900 from 2675 from 3640cc/h H/ID: WBC 35 from 39 from 26 from 16 from 18 from 26 - Hgb 8.6 from 6.8 from 7.4 from 7.6 from 7.6 from 7.8 from 8.6 - Vanc/clinda/ceftri/flagyl --> switched to cefepime/flagyl on 07/22 Endo: hx/o DM - insulin - stress dose steroids off 07/23 MSK - daily dressing change MPOA (daughter - Mercy Felix) VTE ppx - Lovenox 30 BID; SUP - Pepcid Full code - family wishes to proceed with all aggressive care L IJ CVC, ETT, OGT, Hunter (for wound) Crit Care Time: 32 min S. Obed Whalen MD, FACS Acute Care Surgery Attending [facility] Comprehensive Nutrition Assessment Type and Reason for Visit: Reassess Nutrition Recommendations/Plan: Modify TF to Immune Enhancing at 35 mL/hr + protein modular TID to provide 1476 kcal, 133 g protein, 630 mL free water. With flushes 30 mL q 4 hours = 810 mL water/day Monitor TF tolerance, adequacy, weight, labs, GI status, fluid status, skin integrity. Malnutrition Assessment: Malnutrition Status: Insufficient data (07/20/24 1129) Context: Acute Illness Findings of the 6 clinical characteristics of malnutrition: Energy Intake: Unable to assess Weight Loss: No weight loss Body Fat Loss: Unable to assess Muscle Mass Loss: Unable to assess Fluid Accumulation: Unable to assess Banking Services Advisor Strength: Not Performed Nutrition Assessment: Pt remains intubated and sedated. Off propofol. Noted pressors, insulin drip. Tolerating TF as ordered per RN. New colostomy. Having ostomy output. Labs include Glu 167-155, Na 146, Cl 116, iCal 1.11, Ca 8.1 Nutrition Related Findings: Meds/labs reviewed. Wound Type: Surgical Incision, Open Wounds Current Nutrition Intake & Therapies: Average Meal Intake: NPO Average Supplements Intake: NPO ADULT TUBE FEEDING; Orogastric; Immune Enhancing; Continuous; 35; No; 30; Q 4 hours; Protein; 1 Dose; QID Current Tube Feeding (TF) Orders: Feeding Route: Orogastric Formula: Immune Enhancing Schedule: Continuous Feeding Regimen: 35 mL/hr Additives/Modulars: Protein (QID) Water Flushes: 30 mL q 4 hours Current TF Provides: 1548 kcal, 151 gm protein, 630 mL free water. With flushes = 810 mL water/day Additional Calorie Sources: None Anthropometric Measures: Height: 157.5 cm (5' 2.01 ) [place] Body Weight (IBW): 110 lbs (50 kg) Current Body Weight: 145.2 kg (320 lb 1.7 oz), 304.6 % IBW. Weight Source: Bed scale Current BMI (kg/m2): 58.5 BMI Categories: Obese Class 3 (BMI 40.0 or greater) Estimated Daily Nutrient Needs: Energy Requirements Based On: Kcal/kg Weight Used for Energy Requirements: [place] Energy (kcal/day): 2421-2468 kcals/day Weight Used for Protein Requirements: [place] Protein (g/day): 110-135 gm/d Method Used for Fluid Requirements: 1 ml/kcal Fluid (ml/day): 5884-6274 ml/day Nutrition Diagnosis: Inadequate oral intake related to impaired respiratory function as evidenced by NPO or clear liquid status due to medical condition, intubation Nutrition Interventions: Food and/or Nutrient Delivery: Modify Tube Feeding Nutrition Education/Counseling: No recommendation at this time Coordination of Nutrition Care: Continue to monitor while inpatient Plan of Care discussed with: RN Goals: Goals: Initiate nutrition support, Other Type of Goal: New goal Previous Goal Met: Progressing toward Goal(s) Nutrition Monitoring and Evaluation: Behavioral-Environmental Outcomes: None Identified Food/Nutrient Intake Outcomes: Enteral Nutrition Intake/Tolerance Physical Signs/Symptoms Outcomes: Skin, Weight, Biochemical Data, GI Status Discharge Planning: Too soon to determine Christina Hernandez RD Contact: [phone] Images from the original note were not included. ICU PROGRESS NOTE PATIENT NAME: Divina Amin DATE: 07/26/2024 HD: # 7 63 years old female with past medical history of morbid obesity, diabetes, and COPD. Presented with left buttock wound. Patient presented to outside hospital emergency department had imaging which revealed extensive infection changes with crepitus concerning for necrotizing fasciitis. Patient was treated with vancomycin and ceftazidime, 3 L of LR bolus and was sent to [facility] for further management. Patient also received cefepime 2 g IV, clindamycin 900 mg IV and initiated Levophed infusion with MAP goal of 65. General surgery consulted due to necrotizing soft tissue infection. Patient went to the OR, 20 x 31 cm debridement down to and including muscle and fascia left buttock and groin. Finding shows deep infection muscle/fascia present as evidenced by purulent fluid and fluid consistent with infection. Other findings shows debrided down to the level of bone. Patient brought to the ICU intubated and sedated for further management. 07/20: OR: Debridement, wound bed measuring 20 x 31 cm, pack. Wound tunneled down to the ischial bone. 07/21: OR: Debridement, wound tunneled to the pubic symphysis. Wound measurement 40 x 55 cm. 07/23: OR for wound debridement, washout, dakins wet to dry. Attempted lap loop colostomy converted to open due to adhesions. ACUTE DIAGNOSES/PLAN Neuro: Sedated: Fentanyl/ precedex/ MMPT CV Heart rate 79-102 ovn, - In the 100s now due to SAT trial SBP: 123- 137 MAP: 70-88s On 2 levo overnight On home midodrine Echo 07/20: EF 55-60%, normal diastolic function. Mild pulm HTN. Pulm Intubated, PRVC ovn 22/500/8/40% AB.39 / 37 / 104 / 23 Will plan to SBT today before OR. GI/Nutrition Diet: Diet NPO Prophylaxis: Pepcid Transverse loop colostomy: 275 cc /24 hours OR 07/23: Loop transverse colostomy creation, attempted laparoscopic but converted to mini laparotomy Senokot BID Home meds restarted as appropriate Renal/lytes NA/K: 147/ 3.9 BUN/CR: 38/0.8 Mag/Phos: 1.9/ 2.3 Ical: 1.14 Electrolytes replaced No fluids UOP: 2380/ 24 hours, 0.7 mL/kg/h Heme/ ID DVT prophylaxis- SubQ heparin 5000 TID Platelets 350 Hbg 8.3 from 6.8, 7.4 Transfused 1u RBC overnight Transfusions Totals: 2u pRBC, 1u FFP WBC 35.9 from 39.2, 41.3 Afebrile Antibiotics changed overnight - Cefepime 2g q12hr - Flagyl 500mg q8hr ( discontinued ) CT chest/abd/pelvis this yesterday showing: small bilateral pleural effusions with bilateral lower lobe atelectasis.Superimposed infection cannot be excluded. Large left sacral decubitus ulcer with gas/debris extending into the left perineum, perirectal space, and left pelvic sidewall, decreased in size compared to prior. The collection abuts the sacrum without definite osseous erosion. Consider MRI sacrum to evaluate for acute osteomyelitis. Status post left upper quadrant diverting loop colostomy. No evidence of acute complication. Endocrine Hx of DM Glucose: 160 Insulin gtt 84 u /24hrs Methylprednisolone stress dose: Discontinued on 07/23 Musculoskeletal Left buttock wound which related to Necrotizing fascitis. OR 07/19: Debridement wound bed 20 x 31 cm OR 07/20: Debridement wound bed 40 x 55 cm OR 07/22: Debridement 40 x55 cm Will plan for OR today for debridement, washout, possible wound vac. Family/dispo Maintain in the ICU Lines Right IJ CVC (07/20) Left rad art line failed, removed OG 07/20 ETT 07/19 Urinary catheter 07/20 CHECKLIST CAM-ICU RASS: -1 RESTRAINTS: yes IVF: none NUTRITION: TF (held for OR) ANTIBIOTICS: cefepime GI: Pepcid switching to home Protonix once extubated DVT: heparin GLYCEMIC CONTROL: yes HOB >45: yes MOBILITY: none SBT: yes IS: intubated Wound care: yes Chief Complaint: Necrotizing fascitis infection/intubated/sedated on ventilation SUBJECTIVE Divinaeloisa Amin 63 years old female intubated in ICU for nec fasc, requiring multiple operations for debridements. Overnight, some hypotension, 2 of levo started and 1u PRBC. Plan: OR for debridment, SAT/SBT OBJECTIVE VITALS: Vitals: 07/26/24 1000 BP: 107/61 Pulse: 65 Resp: 23 Temp: 98.8 F (37.1 C) SpO2: 100% Physical Exam Constitutional: Appearance: She is morbidly obese. Interventions: She is sedated and intubated. HENT: Head: Normocephalic and atraumatic. Nose: Nose normal. Eyes: Conjunctiva/sclera: Conjunctivae normal. Cardiovascular: Rate and Rhythm: Regular rhythm. Pulses: Normal pulses. Pulmonary: Effort: She is intubated. Breath sounds: Normal breath sounds and air entry. No decreased air movement or transmitted upper airway sounds. Abdominal: General: Bowel sounds are normal. Palpations: Abdomen is soft. Musculoskeletal: Right lower leg: No edema. Left lower leg: No edema. Comments: Dressing to surgical wound Neurological: Comments: Patient is intubated and sedated on ventilator LAB: CBC: Recent Labs 07/24/24 2140 07/25/24 0508 07/26/24 0402 07/26/24 0638 WBC 41.3* 39.2* 35.9* -- HGB 8.2* 7.4* 6.8* 8.3* HCT 26.7* 22.8* 21.3* 26.7* MCV 96.7 91.6 92.6 -- PLT 289 294 350 -- BMP: Recent Labs 07/24/24 2140 07/25/24 0508 07/26/24 0402 NA 142 146* 147* K 4.1 4.0 3.9 CL 113* 115* 116* CO2 18* 22 23 BUN 37* 37* 38* CREATININE 0.9 0.9 0.8 GLUCOSE 138* 160* 136* RADIOLOGY: XR CHEST PORTABLE Result Date: 07/26/2024 1. Stable lines and tubes. 2. Similar mild pulmonary vascular congestion with small left pleural effusion. CT CHEST ABDOMEN PELVIS W CONTRAST Additional Contrast? None Result Date: 07/25/2024 1. Small bilateral pleural effusions with bilateral [...] size since 09/09/2022. Correlate with mammographic imaging. XR CHEST PORTABLE Result Date: 07/25/2024 1. Stable lines and tubes. 2. Similar mild pulmonary vascular congestion with small pleural effusion. XR CHEST PORTABLE Result Date: 07/25/2024 1. The tubes and lines appear appropriately positioned. 2. Unchanged lung findings with mixed airspace opacities interstitial thickening. Differential includes pulmonary edema and atelectatic changes, with infection not excluded. 3. Small left pleural effusion, unchanged. No pneumothorax. Juan C Coombs DO 07/26/2024, 10:37 AM Cosigned by Lizzy Whalen MD at 07/27/2024 10:05 PM EDT Associated attestation - Lizzy Whalen MD - 07/27/2024 10:05 PM EDT I personally examined the patient, directed the medical decision-making, and am in agreement with the Resident/MYRTLE after the physical/radiologic exam and laboratory values were reviewed and confirmed. 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 Wound tunneled down to the ischial bone 07/20: OR: Debridement, wound tunneled to the pubic symphysis. Wound measurement 40 x 55 cm 07/22: SED sacrum, lap converted to open loop transverse diverting colostomy GCS 11T, fent, dex gtt's HDS - pressors off; midodrine prn - Echo 07/20 w/ EF 55%, mild pulm HTN Min vent settings - SAT/SBT NPO, TF at goal, HLIV - Colostomy - bowel sweat; leave bridge in place [address] Briseno - 07/21 CT A/P without intra-abdominal pathology Renal: Cr 0.9 from 1.1 from 1.3 from 1.3 from 1.8 from 2.1 - UF 2445 from 3065 from 1900 from 2675 from 3640cc/h H/ID: WBC 39 from 26 from 16 from 18 from 26 - Hgb 1u PRBC - 6.8 from 7.4 from 7.6 from 7.6 from 7.8 from 8.6 - Vanc/clinda/ceftri/flagyl --> switched to cefepime/flagyl on 07/22 Endo: hx/o DM - insulin - stress dose steroids off 07/23 MSK - daily dressing change MPOA (daughter - Mercy Felix) VTE ppx - Lovenox 30 BID; SUP - Pepcid Full code - family wishes to proceed with all aggressive care L IJ CVC, ETT, OGT, Hunter (for wound) Crit Care Time: 31 min S. Obed Whalen MD, FACS Acute Care Surgery Attending [facility] Wound Ostomy Continence Nurse NAME: Divina Amin AGE: 63 y.o. GENDER: female : 1960 TODAY'S DATE: 07/25/2024 Subjective: Reason for WOCN Evaluation and Assessment: LUQ New loop colostomy with bridge. Would appreciate evaluation for sealing around bridge. Divina Amin is a 63 y.o. female referred by: [x] Physician [] Nursing [] Other: Diverting loop colostomy. Gluteal/perianal necrotizing fasciitis s/p debridement. Ms Amin is currently intubated and sedated. Assessment: 07/25/24 0955 Colostomy LUQ Loop Placement Date/Time: 07/22/24 1715 Location: LUQ Colostomy Type: Loop Stomal Appliance Flat;2 piece;Changed Flange Size (inches) 4 Inches Stoma Assessment Moist;Edema;[place] (60 mm oval. hard bridge. sutured.) Peristomal Assessment Clean, dry & intact Mucocutaneous Junction (loop) Treatment Site care;Liquid skin barrier;Barrier ring;Pouch change Stool Appearance Loose;Watery Stool Color Brown Stool Amount (unmeasured. produced during pouch change) Incision 07/22/24 Abdomen Lower;Medial Date First Assessed/Time First Assessed: 07/22/24 1552 Present on Original Admission: No Location: Abdomen Incision Location Orientation: Lower;Medial Incision Description (Comments): LAPAROSCOPIC INCISION SITE CONVERTED TO OPEN Dressing Status New dressing applied Dressing/Treatment Foam Closure Sutures Margins Approximated Incision Assessment Dry Drainage Amount None (dry) Odor None Stapled incision sites left lateral abdomen covered with silicone foam. Midline incision island dressing removed. Scattered adhesive injuries noted. Skin protectant applied and a 4x8 silicone incisional foam dressing applied. Plan: Cleanse the peristomal skin with warm water only. Dry well. Apply SurePrep [place] to the peristomal skin. Cut pouch barrier to fit stoma with no more than 1/8 of exposed skin. Currently 50 mm x 60 mm oval. Apply a Brava Protective Seal to the peristomal skin from 2-10 o'clock; leave the superior bridge out. Use the two piece system to place the superior bridge arms into the pouching system Empty the pouch when 1/3 to 1/2 full. Change the pouching system twice weekly and prn leakage Routine pressure injury prevention methods Dry pillow cases to skin folds Surgical wound and incisional care per the surgeon's orders. Supplies: Coloplast [employer] #[id number] Flex Flat Barrier Coloplast [employer] #[id number] Flex MAXI Drainable Pouch Coloplast Brava Protective Seal Liquid skin protectant (no-sting) Adhesive Remover For patients coccyx dressing change, fentanyl 100 mcg bolused off of fentanyl bag. Fentanyl was not linked and was restarted on patient at 1730 at a rate of 100 mcg/hr- 1800 decreased to 75 mcg- 1815 turned off infusion. Pump was no longer linked for infusion. At bedside for dressing change and medication changes is Avelina Corbin as well as Dr. Coombs, with other residents. Images from the original note were not included. ICU PROGRESS NOTE PATIENT NAME: Divina Amin DATE: 07/24/2024 HD: # 5 63 years old female with past medical history of morbid obesity, diabetes, and COPD. Presented with left buttock wound. Patient presented to outside hospital emergency department had imaging which revealed extensive infection changes with crepitus concerning for necrotizing fasciitis. Patient was treated with vancomycin and ceftazidime, 3 L of LR bolus and was sent to [facility] for further management. Patient also received cefepime 2 g IV, clindamycin 900 mg IV and initiated Levophed infusion with MAP goal of 65. General surgery consulted due to necrotizing soft tissue infection. Patient went to the OR, 20 x 31 cm debridement down to and including muscle and fascia left buttock and groin. Finding shows deep infection muscle/fascia present as evidenced by purulent fluid and fluid consistent with infection. Other findings shows debrided down to the level of bone. Patient brought to the ICU intubated and sedated for further management. 07/20: OR: Debridement, wound bed measuring 20 x 31 cm, pack. Wound tunneled down to the ischial bone. 07/21: OR: Debridement, wound tunneled to the pubic symphysis. Wound measurement 40 x 55 cm. 07/23: OR for wound debridement, washout, dakins wet to dry. Attempted lap loop colostomy converted to open due to adhesions. ACUTE DIAGNOSES/PLAN Neuro: Sedated: Fentanyl/ propofol - Adding some MMPT today CV Heart rate 79-102 ovn, - In the 100s now due to SAT trial SBP: 123- 167 MAP: 69-100s No pressors Echo 07/20: EF 55-60%, normal diastolic function. Mild pulm HTN. Pulm Intubated, PRVC ovn 22/500/8/40% AB.38/34/107/ 20.9 - Will decrease RR to 20 today Currently under SBT trial. GI/Nutrition Diet: ADULT TUBE FEEDING; Orogastric; Immune Enhancing; Continuous; 20; No; 30; Q 4 hours; Protein; 1 Dose; QID Prophylaxis: Pepcid Transverse loop colostomy: 50 cc, Bowel sweat overnight, appears healthy. OR 07/23: Loop transverse colostomy creation, attempted laparoscopic but converted to mini laparotomy Starting Senokot BID Home meds restarted as appropriate Renal/lytes NA/K: 141/3.5 BUN/CR: 39/1.1 Mag/Phos: 1.9/2.4 Ical: 1.12 Electrolytes replaced No fluids UOP: 3065 over 24 hours, 0.8 mL/kg/h Heme/ ID DVT prophylaxis- SubQ heparin 5000 TID Platelets 182 Hbg 7.6 from 9.5, 7.8 1u FFP post op yesterday Transfusions Totals: 1u pRBC, 1u FFP WBC 16.1 from 29.5, 18.9 Afebrile Antibiotics changed overnight - Cefepime 2g q12hr - Flagyl 500mg q8hr Endocrine Hx of DM Glucose: 302 from 290s Starting Insulin gtt and holding HDSS Methylprednisolone stress dose: Discontinued on 07/23 Musculoskeletal Left buttock wound which related to Necrotizing fascitis. OR 07/19: Debridement wound bed 20 x 31 cm OR 07/20: Debridement wound bed 40 x 55 cm OR 07/22: Debridement 40 x55 cm Will plan on daily dakins wet to dry dressing change today Family/dispo Maintain in the ICU Lines Left IJ CVC (07/20) Left rad art line (07/20) OG 07/20 ETT 07/19 Urinary catheter 07/20 CHECKLIST CAM-ICU RASS: -1 RESTRAINTS: yes IVF: none NUTRITION: TF ANTIBIOTICS: cefepime/ flagyl GI: Pepcid switching to home Protonix DVT: heparin GLYCEMIC CONTROL: yes HOB >45: yes MOBILITY: none SBT: yes IS: intubated Wound care: yes Chief Complaint: Necrotizing fascitis infection/intubated/sedated on ventilation SUBJECTIVE Divinaeloisa Amin 63 years old female intubated in ICU for nec fasc, requiring multiple operations for debridements. Overnight, no acute events. Plan: Dressing change, adding home meds, SAT/SBT OBJECTIVE VITALS: Vitals: 07/24/24 1000 BP: Pulse: (!) 107 Resp: 28 Temp: 99.9 F (37.7 C) SpO2: 99% Physical Exam Constitutional: Appearance: She is morbidly obese. Interventions: She is sedated and intubated. HENT: Head: Normocephalic and atraumatic. Nose: Nose normal. Eyes: Conjunctiva/sclera: Conjunctivae normal. Cardiovascular: Rate and Rhythm: Regular rhythm. Pulses: Normal pulses. Pulmonary: Effort: She is intubated. Breath sounds: Normal breath sounds and air entry. No decreased air movement or transmitted upper airway sounds. Abdominal: General: Bowel sounds are normal. Palpations: Abdomen is soft. Musculoskeletal: Right lower leg: No edema. Left lower leg: No edema. Comments: Dressing to surgical wound Neurological: Comments: Patient is intubated and sedated on ventilation with prop/fent. LAB: CBC: Recent Labs 07/22/24203007/23/2444907/24/24 0524 WBC 29.5* 16.1* 26.4* HGB 9.5* 7.6* 7.6* HCT 28.3* 22.9* 23.8* MCV 87.1 87.4 90.2 PLT 198 182 219 BMP: Recent Labs 07/22/24203007/23/24 0450 07/24/24 0524 NA 137 137 141 K 3.7 3.5* 3.5* CL 102 105 108* CO2 16* 20 20 BUN 47* 45* 39* CREATININE 1.3* 1.3* 1.1* GLUCOSE 234* 195* 289* RADIOLOGY: XR CHEST PORTABLE Result Date: 07/24/2024 1. Stable mild airspace disease throughout both lungs, likely representing pulmonary edema. 2. Small left greater than right bilateral pleural effusions. 3. Stable cardiomegaly. XR CHEST PORTABLE Result Date: 07/23/2024 1. Stable lines and tubes. 2. Limited evaluation without evidence of acute cardiopulmonary process. Juan C Coombs DO 07/24/2024, 10:11 AM Cosigned by Lizzy Whalen MD at 07/24/2024 12:25 PM EDT Associated attestation - Lizzy Whalen MD - 07/24/2024 12:25 PM EDT I personally examined the patient, directed the medical decision-making, and am in agreement with the Resident/MYRTLE after the physical/radiologic exam and laboratory values were reviewed and confirmed. 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 Wound tunneled down to the ischial bone 07/20: OR: Debridement, wound tunneled to the pubic symphysis. Wound measurement 40 x 55 cm 07/22: SED sacrum, lap converted to open loop transverse diverting colostomy GCS 11T, fent, prop gtt's HDS - pressors off; midodrine prn - Echo 07/20 w/ EF 55%, mild pulm HTN PRVC 22/500/8/40%; 7.38/34/107/20 -> RR to 20 - SAT/SBT - SBT'ed - CXR w/ improving L > R aeration NPO, TF at goal, HLIV - Colostomy - bowel sweat; leave bridge in place [address] Briseno - 07/21 CT A/P without intra-abdominal pathology Renal: Cr 1.1 from 1.3 from 1.3 from 1.8 from 2.1 - UF 1900 from 2675 from 3640cc/h H/ID: WBC 26 from 16 from 18 from 26 - Hgb 7.6 from 7.6 from 7.8 from 8.6 - Vanc/clinda/ceftri/flagyl --> switched to cefepime/flagyl on 07/22 Endo: hx/o DM - insulin gtt started today (home Lantus 25u BID) - stress dose steroids off 07/23 MSK - daily dressing change MPOEloisa (daughter - Mercy Felix) VTE ppx - Lovenox 30 BID; SUP - Pepcid Full code - family wishes to proceed with all aggressive care L IJ CVC, ETT, OGT, Hunter (for wound) Crit Care Time: 34 min S. Obed Whalen MD, FACS Acute Care Surgery Attending [facility] Images from the original note were not included. ICU PROGRESS NOTE PATIENT NAME: Divina Amin DATE: 07/23/2024 HD: # 4 63 years old female with past medical history of morbid obesity, diabetes, and COPD. Presented with left buttock wound. Patient presented to outside hospital emergency department had imaging which revealed extensive infection changes with crepitus concerning for necrotizing fasciitis. Patient was treated with vancomycin and ceftazidime, 3 L of LR bolus and was sent to [facility] for further management. Patient also received cefepime 2 g IV, clindamycin 900 mg IV and initiated Levophed infusion with MAP goal of 65. General surgery consulted due to necrotizing soft tissue infection. Patient went to the OR, 20 x 31 cm debridement down to and including muscle and fascia left buttock and groin. Finding shows deep infection muscle/fascia present as evidenced by purulent fluid and fluid consistent with infection. Other findings shows debrided down to the level of bone. Patient brought to the ICU intubated and sedated for further management. 07/20: OR: Debridement, wound bed measuring 20 x 31 cm, pack. Wound tunneled down to the ischial bone. 07/21: OR: Debridement, wound tunneled to the pubic symphysis. Wound measurement 40 x 55 cm. 07/23: OR for wound debridement, washout, dakins wet to dry. Attempted lap loop colostomy converted to open due to adhesions. ACUTE DIAGNOSES/PLAN Neuro: Sedated: 75 fentanyl, 30 propofol MMPT CV Heart rate 50s SBP: 90s-130s MAP: 60s-80s No pressors Echo 07/20: EF 55-60%, normal diastolic function. Mild pulm HTN. Pulm Intubated, PRVC 26/500/8/40% AB.42/31.7/101/ 20.8 - Will discuss decreasing rate to 22 and check gas in 1 hr. GI/Nutrition Prophylaxis: Pepcid Diet: N.p.o., - Electric Fork Operator consulted, will discuss restarting tube feeds today NG- out: 410 cc/ 24hr Transverse loop colostomy: Bowel sweat overnight, appears healthy. OR 07/23: Loop transverse colostomy creation, attempted laparoscopic but converted to mini laparotomy Will restart home meds today as appropriate/ indicated if ok with adding oral diet. Renal/lytes NA/K: 137/3.5 BUN/CR: 45/1.3 Mag/Phos: 1.9/3.3 Ical: 1.12 Electrolytes replaced No fluids UOP: 1900 over 24 hours, 0.5 mL/kg/h Heme/ ID DVT prophylaxis- SubQ heparin 5000 TID Platelets 182 Hbg 7.6 from 9.5, 7.8 1u FFP post op yesterday Transfusions Totals: 1u pRBC, 1u FFP WBC 16.1 from 29.5, 18.9 Afebrile Antibiotics changed overnight - Cefepime 2g q12hr - Flagyl 500mg q8hr Endocrine Hx of DM Glucose: 180s-190s HDSS Methylprednisolone stress dose: 20 mg Q6, start 07/20 -Tapering today: dose changed to q8, then q12 tomorrow 07/24. Musculoskeletal Left buttock wound which related to Necrotizing fascitis. OR 07/19: Debridement wound bed 20 x 31 cm OR 07/20: Debridement wound bed 40 x 55 cm OR 07/22: Debridement 40 x55 cm Will plan on daily dakins wet to dry dressing change today Family/dispo Maintain in the ICU Lines Left IJ CVC (07/20) Left rad art line (07/20) ETT Urinary catheter CHECKLIST CAM-ICU RASS: -1 RESTRAINTS: yes IVF: none NUTRITION: NPO- restart TF today ANTIBIOTICS: cefepime/ flagyl GI: Pepcid DVT: heparin GLYCEMIC CONTROL: yes HOB >45: yes MOBILITY: none SBT: yes IS: intubated Wound care: yes Chief Complaint: Necrotizing fascitis infection/intubated/sedated on ventilation SUBJECTIVE Divina Amin 63 years old female who presented to the ICU after post-op for necrotizing fascitis of the left buttocks. Overnight, no acute events after returning from the operating room. Patient having decreasing pressor requirements overnight. Echo completed yesterday. Plan: Restart TF, taper steroids, dressing change, vent wean OBJECTIVE VITALS: Vitals: 07/23/24 0845 BP: (!) 127/52 Pulse: 70 Resp: 26 Temp: SpO2: Physical Exam Constitutional: Appearance: She is morbidly obese. Interventions: She is sedated and intubated. HENT: Head: Normocephalic and atraumatic. Nose: Nose normal. Eyes: Conjunctiva/sclera: Conjunctivae normal. Cardiovascular: Rate and Rhythm: Regular rhythm. Pulses: Normal pulses. Pulmonary: Effort: She is intubated. Breath sounds: Normal breath sounds and air entry. No decreased air movement or transmitted upper airway sounds. Abdominal: General: Bowel sounds are normal. Palpations: Abdomen is soft. Musculoskeletal: Right lower leg: No edema. Left lower leg: No edema. Comments: Dressing to surgical wound Neurological: Comments: Patient is intubated and sedated on ventilation with prop/fent. LAB: CBC: Recent Labs 07/22/2452107/22/24203007/23/24 0450 WBC 18.9* 29.5* 16.1* HGB 7.8* 9.5* 7.6* HCT 22.7* 28.3* 22.9* MCV 86.0 87.1 87.4 PLT See Reflexed IPF Result 198 182 BMP: Recent Labs 06/09/25 0522 06/09/25 2031 06/10/25 0450 NA 134* 137 137 K 3.7 3.7 3.5* CL 102 102 105 CO2 19* 16* 20 BUN 45* 47* 45* CREATININE 1.3* 1.3* 1.3* GLUCOSE 197* 234* 195* RADIOLOGY: XR CHEST PORTABLE Result Date: 07/23/2024 1. Stable lines and tubes. 2. Limited evaluation without evidence of acute cardiopulmonary process. XR CHEST PORTABLE Result Date: 07/22/2024 Stable placement of lines and tubes as above. Limited exam secondary to underpenetration and patient positioning. Stable cardiomegaly. Background of similar appearing pulmonary vascular congestion. Overall exam is unchanged when compared to 07/21/2024. CT ABDOMEN PELVIS W IV CONTRAST Additional Contrast? Oral Result Date: 07/21/2024 1. 9.5 x 3.3 cm air and [...] or colitis. 3. Additional findings, as above. Juan C Coombs DO 07/23/2024, 8:56 AM Cosigned by Lizzy Whalen MD at 07/23/2024 4:20 PM EDT Associated attestation - Lizzy Whalen MD - 07/23/2024 4:20 PM EDT I personally examined the patient, directed the medical decision-making, and am in agreement with the Resident/MYRTLE after the physical/radiologic exam and laboratory values were reviewed and confirmed. 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 Wound tunneled down to the ischial bone 07/20: OR: Debridement, wound tunneled to the pubic symphysis. Wound measurement 40 x 55 cm 07/22: SED sacrum, lap converted to open loop transverse diverting colostomy GCS 11T, fent, prop gtt's HDS - pressors off - Echo 07/20 w/ EF 55%, mild pulm HTN PRVC 26/500/8/40%; 7.4/31/101/20; RR 26-->22 - CXR w/ improving NPO, TF to goal, HLIV - Colostomy - bowel sweat - 07/21 CT A/P without intra-abdominal pathology Renal: Cr 1.3 from 1.3 from 1.8 from 2.1 - UF 1900 from 2675 from 3640cc/h H/ID: WBC 16 from 18 from 26 - Hgb 7.6 from 7.8 from 8.6 - Vanc/clinda/ceftri/flagyl --> switched to cefepime/flagyl on 07/22 Endo: hx/o DM - stress dose steroids --> d/c MSK - daily dressing change MPOA (daughter - Mercy Felix) VTE ppx - Lovenox 30 BID; SUP - Pepcid Full code - will need GOC discussion L IJ CVC, ETT, OGT, Hunter (for wound) Crit Care Time: 35 min S. Obed Whalen MD, FACS Acute Care Surgery Attending [facility] The tube was secured with an endotracheal tube wu. The endotracheal tube was moved and the skin assessed. Skin assessment revealed no problems. Endotracheal tube was taped at the 21 cm angelica. Oral gastric tube was retaped to the endotracheal tube. Endotracheal tube wu was applied on July 23. Action steps for any skin breakdown: none TANIA NASH RCP 8:34 AM 07/23/24 0826 Care Plan - Respiratory Goals Achieves optimal ventilation and oxygenation Assess for changes in respiratory status;Assess for changes in mentation and behavior;Position to facilitate oxygenation and minimize respiratory effort;Oxygen supplementation based on oxygen saturation or arterial blood gases;Encourage broncho-pulmonary hygiene including cough, deep breathe, incentive spirometry;Assess the need for suctioning and aspirate as needed;Assess and instruct to report shortness of breath or any respiratory difficulty;Respiratory therapy support as indicated Physician Progress Note PATIENT: DIVINA AMIN CSN #: [id number] : 1960 ADMIT DATE: 07/19/2024 6:09 PM DISCH DATE: RESPONDING PROVIDER #: JUAN C COOMBS QUERY TEXT: Based on your medical judgment, please clarify these findings and document if any of the following are being evaluated and/or treated: The clinical indicators include: Patient admitted with necrotizing fasciitis.per surgery attending on 07/20 severe sepsis POA requiring high dose Levo, Vaso with necrotizing fasciitis; continue vanc, zosyn, clinda. SBP from 140s down to 90s. central line insertion, ICU monitoring. Art line monitoring, maintained on mechanical ventilation Options provided: -- Septic Shock -- Other - I will add my own diagnosis -- Disagree - Not applicable / Not valid -- Disagree - Clinically unable to determine / Unknown -- Refer to Clinical Documentation Reviewer PROVIDER RESPONSE TEXT: This patient is in septic shock. Query created by: Glendy Ambriz on 07/22/2024 2:19 PM Electronically signed by: JUAN C COOMBS 07/23/2024 6:53 AM Images from the original note were not included. ICU PROGRESS NOTE PATIENT NAME: Divina Amin DATE: 07/22/2024 HD: # 3 63 years old female with past medical history of morbid obesity, diabetes, and COPD. Presented with left buttock wound. Patient presented to outside hospital emergency department had imaging which revealed extensive infection changes with crepitus concerning for necrotizing fasciitis. Patient was treated with vancomycin and ceftazidime, 3 L of LR bolus and was sent to [facility] for further management. Patient also received cefepime 2 g IV, clindamycin 900 mg IV and initiated Levophed infusion with MAP goal of 65. General surgery consulted due to necrotizing soft tissue infection. Patient went to the OR, 20 x 31 cm debridement down to and including muscle and fascia left buttock and groin. Finding shows deep infection muscle/fascia present as evidenced by purulent fluid and fluid consistent with infection. Other findings shows debrided down to the level of bone. Patient brought to the ICU intubated and sedated for further management. 07/20: OR: Debridement, wound bed measuring 20 x 31 cm, pack. Wound tunneled down to the ischial bone. 07/21: OR: Debridement, wound tunneled to the pubic symphysis. Wound measurement 40 x 55 cm. Plan for OR today ACUTE DIAGNOSES/PLAN Neuro: Sedated: 100 fentanyl, 20 propofol MMPT CV Heart rate 50s SBP: 90s-130s MAP: 60s-80s Pressors off overnight Echo 07/20: EF 55-60%, normal diastolic function. Mild pulm HTN. Pulm Intubated, PRVC 26/500/8/40% AB.39/30.4/130/18.5 Will discuss decreasing rate to 22 GI/Nutrition Prophylaxis: Pepcid Diet: N.p.o. for OR today - Will discuss starting TPN Renal/lytes NA/K: 134/3.7 BUN/CR: 45/1.3 Mag/Phos: 2.0/4.1 LR to 150 cc/h UOP: 2675 over 24 hours, averaging 0.8 mL/kg/h Heme DVT prophylaxis-Lovenox Platelets 179 Hbg 7.8 from 8.6, 9.4 1 unit PRBCs 07/20 Endocrine Hx of DM Glucose: 179 from 188, 193 HDSS Methylprednisolone stress dose: 20 mg Q6, start 07/20 Musculoskeletal Left buttock wound which related to Necrotizing fascitis. OR 07/19: Debridement wound bed 20 x 31 cm OR 07/20: Debridement wound bed 40 x 55 cm Dressing changed overnight by night team Micro WBC 18.9 from 26.7, 27.1 Afebrile Vancomycin/Metronidazole/Rocephin /Clindamycin Family/dispo Maintain in the ICU Attempting to contact family Dr. Shaffer to discuss with family today Lines Left IJ CVC (07/20) Left rad art line (07/20) ETT Urinary catheter CHECKLIST CAM-ICU RASS: -1 RESTRAINTS: yes IVF: LR 150 cc/h NUTRITION: NPO ANTIBIOTICS: vanco/flagyl/ clinda/rocephin GI: Pepcid DVT: Lovenox GLYCEMIC CONTROL: yes HOB >45: yes MOBILITY: none SBT: yes IS: intubated Wound care: yes Chief Complaint: Necrotizing fascitis infection/intubated/sedated on ventilation SUBJECTIVE Divina Amin 63 years old female who presented to the ICU after post-op for necrotizing fascitis of the left buttocks. Overnight, no acute events after returning from the operating room. Patient having decreasing pressor requirements overnight. Echo completed yesterday. Plan: Consider starting TPN vs Tube feeds, will plan for OR for debridement today. OBJECTIVE VITALS: Vitals: 07/22/24 0645 BP: (!) 108/50 Pulse: 50 Resp: 26 Temp: 98.8 F (37.1 C) SpO2: 100% Physical Exam Constitutional: Appearance: She is morbidly obese. Interventions: She is sedated and intubated. HENT: Head: Normocephalic and atraumatic. Nose: Nose normal. Eyes: Conjunctiva/sclera: Conjunctivae normal. Cardiovascular: Rate and Rhythm: Regular rhythm. Pulses: Normal pulses. Pulmonary: Effort: She is intubated. Breath sounds: Normal breath sounds and air entry. No decreased air movement or transmitted upper airway sounds. Abdominal: General: Bowel sounds are normal. Palpations: Abdomen is soft. Musculoskeletal: Right lower leg: No edema. Left lower leg: No edema. Comments: Dressing to surgical wound Neurological: Comments: Patient is intubated and sedated on ventilation with prop/fent. LAB: CBC: Recent Labs 07/20/24 1906 07/21/2452407/22/24 05 WBC 27.1* 26.7* 18.9* HGB 9.4* 8.6* 7.8* HCT 27.4* 25.4* 22.7* MCV 86.7 84.4 86.0 PLT 234 163 See Reflexed IPF Result BMP: Recent Labs 07/20/24 1950 07/21/2452407/22/24 05 NA 136 137 134* K 4.5 4.0 3.7 CL 103 105 102 CO2 17* 16* 19* BUN 50* 46* 45* CREATININE 2.1* 1.8* 1.3* GLUCOSE 148* 187* 197* RADIOLOGY: CT ABDOMEN PELVIS W IV CONTRAST Additional Contrast? Oral Result Date: 07/21/2024 1. 9.5 x 3.3 cm air and [...] or colitis. 3. Additional findings, as above. XR CHEST PORTABLE Result Date: 07/21/2024 1. Limited evaluation without significant change. XR CHEST PORTABLE Result Date: 07/20/2024 Left central venous catheter tip projects at the low SVC. Otherwise stable chest. Juan C Coombs DO 07/22/2024, 8:57 AM Cosigned by Lizzy Whalen MD at 07/22/2024 11:43 AM EDT Associated attestation - Lizzy Whalen MD - 07/22/2024 11:43 AM EDT I personally examined the patient, directed the medical decision-making, and am in agreement with the Resident/MYRTLE after the physical/radiologic exam and laboratory values were reviewed and confirmed. 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 Wound tunneled down to the ischial bone 07/20: OR: Debridement, wound tunneled to the pubic symphysis. Wound measurement 40 x 55 cm GCS 11T, fent, prop gtt's HDS - vaso gtt only - Echo 07/20 w/ EF 55%, mild pulm HTN PRVC 26/500/8/40% - CXR w/ worsening RLL infiltrate/effusion NPO, TF held for OR - restart after OR, HLIV - 07/21 CT A/P without intra-abdominal pathology Renal: Cr 1.3 from 1.8 from 2.1 - UF 2675 from 3640cc/h H/ID: WBC 18 from 26 - Hgb 7.8 from 8.6 - Vanc/clinda/ceftri/flagyl --> switch to cefepime/flagyl Endo: hx/o DM - stress dose steroids MSK - OR today for sacral/buttock debridement, will discuss possible diverting colostomy with family/MPOA (daughter - Meryc Felix) VTE ppx - Lovenox 30 BID; SUP - Pepcid Full code - will need GOC discussion L IJ CVC, ETT, OGT, may place FMS in/after OR Crit Care Time: 40 min S. Obed Whalen MD, FACS Acute Care Surgery Attending [facility] 07/22/24 0818 Care Plan - Respiratory Goals Achieves optimal ventilation and oxygenation Assess for changes in respiratory status;Assess for changes in mentation and behavior;Position to facilitate oxygenation and minimize respiratory effort;Oxygen supplementation based on oxygen saturation or arterial blood gases;Encourage broncho-pulmonary hygiene including cough, deep breathe, incentive spirometry;Assess the need for suctioning and aspirate as needed;Assess and instruct to report shortness of breath or any respiratory difficulty;Respiratory therapy support as indicated Resident removed consult from list. Film Replacement Orderer spoke with nurse. Family is not in today and pt will be getting a CT. Images from the original note were not included. ICU PROGRESS NOTE PATIENT NAME: Divina Amin DATE: 07/21/2024 HD: # 2 63 years old female with past medical history of morbid obesity, diabetes, and COPD. Presented with left buttock wound. Patient presented to outside hospital emergency department had imaging which revealed extensive infection changes with crepitus concerning for necrotizing fasciitis. Patient was treated with vancomycin and ceftazidime, 3 L of LR bolus and was sent to [facility] for further management. Patient also received cefepime 2 g IV, clindamycin 900 mg IV and initiated Levophed infusion with MAP goal of 65. General surgery consulted due to necrotizing soft tissue infection. Patient went to the OR, 20 x 31 cm debridement down to and including muscle and fascia left buttock and groin. Finding shows deep infection muscle/fascia present as evidenced by purulent fluid and fluid consistent with infection. Other findings shows debrided down to the level of bone. Patient brought to the ICU intubated and sedated for further management. 07/20: OR: Debridement, wound bed measuring 20 x 31 cm, pack. Wound tunneled down to the ischial bone. 07/21: OR: Debridement, wound tunneled to the pubic symphysis. Wound measurement 40 x 55 cm. ACUTE DIAGNOSES/PLAN Neuro: GCS 6T Sedated: 75 fentanyl, 20 propofol MMPT CV Heart rate 50s-80s SBP: 90s-130s MAP: 60s-80s Levophed at 6, vasopressin at 0.03 (decreasing requirements) Echo 07/20: EF 55-60%, normal diastolic function. Mild pulm HTN. Pulm Intubated, PRVC 26/500/8/40% AB.36/31.1/117/17.5 GI/Nutrition Prophylaxis: Pepcid Diet: N.p.o. Renal/lytes NA/K: 137/4.0 BUN/CR: 46/1.8, improving from 56/2.9 Mag/Phos: 1.6/4.2 LR to 150 cc/h UOP: 3640 over 24 hours, averaging 1 mL/kg/h Heme DVT prophylaxis-Lovenox Platelets 163 Hbg 8.6 (9.4, 10.8) 1 unit PRBCs 07/20 Endocrine Hx of DM Glucose: 140s to 170s HDSS Methylprednisolone stress dose: 20 mg Q6, start 07/20 Musculoskeletal Left buttock wound which related to Necrotizing fascitis. OR 07/19: Debridement wound bed 20 x 31 cm OR 07/20: Debridement wound bed 40 x 55 cm Micro WBC 26.7 from 27.1, 36.3 Afebrile Vancomycin/Metronidazole/Rocephin /Clindamycin Family/dispo Maintain in the ICU Attempting to contact family Lines Left IJ CVC (07/20) Left rad art line (07/20) ETT Urinary catheter CHECKLIST CAM-ICU RASS: -1 RESTRAINTS: yes IVF: LR 150 cc/h NUTRITION: NPO ANTIBIOTICS: vanco/flagyl/ clinda/rocephin GI: Pepcid DVT: Lovenox GLYCEMIC CONTROL: yes HOB >45: yes MOBILITY: none SBT: yes IS: intubated Wound care: yes Chief Complaint: Necrotizing fascitis infection/intubated/sedated on ventilation SUBJECTIVE Divina Amin 63 years old female who presented to the ICU after post-op for necrotizing fascitis of the left buttocks. Overnight, no acute events after returning from the operating room. Patient having decreasing pressor requirements overnight. Echo completed yesterday. Plan: Consider starting tube feeds OBJECTIVE VITALS: Vitals: 07/21/24 0600 BP: Pulse: 60 Resp: 26 Temp: 99 F (37.2 C) SpO2: 100% Physical Exam Constitutional: Appearance: She is morbidly obese. Interventions: She is sedated and intubated. HENT: Head: Normocephalic and atraumatic. Nose: Nose normal. Eyes: Conjunctiva/sclera: Conjunctivae normal. Cardiovascular: Rate and Rhythm: Regular rhythm. Pulses: Normal pulses. Pulmonary: Effort: She is intubated. Breath sounds: Normal breath sounds and air entry. No decreased air movement or transmitted upper airway sounds. Abdominal: General: Bowel sounds are normal. Palpations: Abdomen is soft. Musculoskeletal: Right lower leg: No edema. Left lower leg: No edema. Comments: Dressing to surgical wound Neurological: Comments: Patient is intubated and sedated on ventilation with prop/fent. LAB: CBC: Recent Labs 07/20/24 0332 07/20/24 1302 07/20/24 1906 07/21/24 0525 WBC 36.3* -- 27.1* 26.7* HGB 10.8* 10.8* 9.4* 8.6* HCT 32.8* 31.3* 27.4* 25.4* MCV 90.1 -- 86.7 84.4 PLT 264 -- 234 163 BMP: Recent Labs 07/20/24 0332 07/20/24 1950 07/21/24 0525 NA 131* 136 137 K 4.8 4.5 4.0 CL 102 103 105 CO2 14* 17* 16* BUN 57* 50* 46* CREATININE 2.8* 2.1* 1.8* GLUCOSE 174* 148* 187* RADIOLOGY: XR CHEST PORTABLE Result Date: 07/21/2024 1. Limited evaluation without significant change. XR CHEST PORTABLE Result Date: 07/20/2024 Left central venous catheter tip projects at the low SVC. Otherwise stable chest. XR CHEST PORTABLE Result Date: 07/20/2024 Scattered pulmonary infiltrates. Support tubes as described above. XR ABDOMEN FOR NG/OG/NE TUBE PLACEMENT Result Date: 07/20/2024 Nasogastric tube tip is located within the body the stomach. XR CHEST PORTABLE Result Date: 07/20/2024 1. Pulmonary vascular congestion. 2. Endotracheal tube located 5 cm above the khushbu. XR CHEST PORTABLE Result Date: 07/19/2024 1. Cardiomegaly with mild prominence of the interstitial markings which could represent mild vascular congestion. 2. Questionable rounded density in the right lung base which could represent infiltrate or possible lesion. Short-term follow-up or CT chest is suggested. Kelly Eastman MD 07/21/2024, 7:40 AM Cosigned by Alisia Cuellar MD at 07/21/2024 9:59 PM EDT Associated attestation - Alisia Cuellar MD - 07/21/2024 9:59 PM EDT I personally evaluated the patient and directed the medical decision making with Resident/MYRTLE after the physical/radiologic exam and laboratory values were reviewed and confirmed. 63yo femlae s/p L buttock and groin debridement 07/19 for necrotizing fasciitis with progression noted on takeback on 07/20. I am continuing to manage multiple medical problems unrelated to their standard post operative care. Neuro: prop, fent Cardio: Levo requirements down significantly on stress dose steroids - Echo 07/20 - 55-60% Pulm: wean vent as able Renal: VELMA Heme: Hgb 10 from 12 - monitor DM: SSI ID: will need repeat takeback, continue antibiotics Code Status: Full, will need to have venus discussion with family that this may not be a survivable or healable injury Dispo: maintain in ICU Crit Care Time: 35 minutes Alisia Cuellar MD Pharmacy Note Enoxaparin Dose Adjustment Divina Amin is a 63 y.o. female. Pharmacist assessment of enoxaparin dose for VTE prophylaxis. Recent Labs 07/20/24 1950 07/21/24 0525 BUN 50* 46* Recent Labs 07/20/24 1950 07/21/24 0525 CREATININE 2.1* 1.8* Estimated Creatinine Clearance: 45 mL/min (A) (based on SCr of 1.8 mg/dL (H)). Height: Ht Readings from Last 1 Encounters: 07/20/24 1.575 m (5' 2.01 ) Weight: Wt Readings from Last 1 Encounters: 07/20/24 (!) 146.6 kg (323 lb 3.1 oz) The following enoxaparin dose has been adjusted based upon renal function and/or patient weight per P&T Guidelines: Lovenox changed back to 30 mg BID as CrCl now >30 mL/min. Clyde Cai Pharm.D., ONES[facility], [facility] 07/21/2024 7:19 AM [facility] Pharmacokinetic Monitoring Service - Vancomycin Consulting Provider: Polo Indication: SSTI Target Concentration: Dosing based on anticipated concentration <15 mg/L due to renal impairment/insufficiency Day of Therapy: 3 Pertinent Laboratory Values: Wt Readings from Last 1 Encounters: 07/20/24 (!) 146.6 kg (323 lb 3.1 oz) Temp Readings from Last 1 Encounters: 07/21/24 99 F (37.2 C) Estimated Creatinine Clearance: 45 mL/min (A) (based on SCr of 1.8 mg/dL (H)). Recent Labs 07/20/24 1906 07/20/24 1950 07/21/24 0525 CREATININE -- 2.1* 1.8* BUN -- 50* 46* WBC 27.1* -- 26.7* Recent vancomycin administrations No vancomycin IV orders with administrations found. Orders not given: vancomycin (VANCOCIN) intermittent dosing (placeholder) vancomycin (VANCOCIN) 1,250 mg in sodium chloride 0.9 % 250 mL IVPB ([id number]) Assessment: Date/Time Current Dose Concentration Timing of Concentration (h) AUC 07/21/24 2000 mg IV x1 on 07/19 9 mcg/mL 42 hours post-dose 400 Note: Serum concentrations collected for AUC dosing may appear elevated if collected in close proximity to the dose administered, this is not necessarily an indication of toxicity Plan: Patient's renal function continues to improve. Vancomycin trough obtained this morning demonstrates adequate drug clearance. Will initiate vancomycin 1250 mg IV q24h, which predicts a trough of 17.5 mcg/mL and an AUC of 550. Anticipate the need for further dose changes pending further improvement of renal function. Pharmacy will continue to monitor patient and adjust therapy as indicated Thank you for the consult, Clyde Cai Pharm.D., ONESIMO, [facility] 07/21/2024 7:18 AM Spiritual Health History and Assessment/Progress Note [facility] (P) Initial Encounter, , , Name: Divina Amin Age: 63 y.o. Sex: female Language: [place] Lutheran: [employer]beterian Necrotizing soft tissue infection Date: 07/20/2024 Total Time Calculated: (P) 15 min Spiritual Assessment began in [facility] CAR 1- SICU Referral/Consult From: (P) Rounding Encounter Overview/Reason: (P) Initial Encounter Service Provided For: (P) Patient and family together Fatou, Belief, Meaning: Patient unable to assess at this time Family/Friends Other: Did not discuss Importance and Influence: Patient unable to assess at this time Family/Friends Other: Did not discuss Community: Patient Other: Patient intubated did not discuss. Family/Friends feel well-supported. Support system includes: Children Assessment and Plan of Care: Patient Interventions include: Other: Patient intubated. Family/Friends Interventions include: Facilitated expression of thoughts and feelings and Affirmed coping skills/support systems Patient Plan of Care: Spiritual Care available upon further referral Family/Friends Plan of Care: Spiritual Care available upon further referral Electronically signed by Aurelia Lancaster Film Replacement Orderer [employer] Administrator on 07/20/2024 at 7:06 PM Images from the original note were not included. ICU PROGRESS NOTE PATIENT NAME: Divina Amin DATE: 07/20/2024 HD: # 1 63 years old female with past medical history of morbid obesity, diabetes, and COPD. Presented with left buttock wound. Patient presented to outside hospital emergency department had imaging which revealed extensive infection changes with crepitus concerning for necrotizing fasciitis. Patient was treated with vancomycin and ceftazidime, 3 L of LR bolus and was sent to [facility] for further management. Patient were tachycardic, white pulse pressure with a MAP of<65. Patient also received cefepime 2 g IV, clindamycin 900 mg IV and initiated Levophed infusion with MAP goal of 65. General surgery consulted due to necrotizing soft tissue infection. Patient went to the OR and E2, 20 x 31 cm debridement down to and including muscle and fascia left buttock and groin. Finding shows deep infection muscle/fascia present as evidenced by purulent fluid and fluid consistent with infection. Other findings shows debrided down to the level of bone. Patient brought to the ICU intubated and sedated for further management. Pain in the head and chest. ACUTE DIAGNOSES/PLAN Neuro: GCS 6 Intubated and sedated on ventilation. Bed elevation Prop/Fent on MMPT CV Heart rate 105 Blood pressure cuff 103/65, MAP of 72, ABP: 97/47, MAP 63. Levo and vasopressin to support sepsis. Pulm Intubated and sedated on ventilation RR: 22 AC/PC, FiO2 50, RR 22, PEEP 8, PIP 24, VT 400, P/F ratio 262 ABG: pH 7.0, pCO2 63, pO2 131, HCO3 19. Non-Gap Metabolic Acidosis, which is uncompensated. Concomitant respiratory acidosis. GI/Nutrition Pepcid/ Zofran NPO diet for now Renal/lytes Sodium 131, potassium 4.8, chloride 102, calcium ionized 1.06, calcium 8.2 BUN 57, creatinine 2.8, GFR 19, VELMA Lactated Ringer Heme DVT prophylaxis-Lovenox Hbg 10.8 down from 12.5 post-op Endocrine Hx of DM Glucose HDSS Insulin lispro Methylprednisolone stress dose Musculoskeletal Left buttock wound which related to Necrotizing fascitis. Went to OR yesterday and Debridement to the bone. Wound clean per protocol. May required back to OR for another debridement. Pain management control Continue antibiotics. Skin Left buttock debridement due to Necrotizing fascitis. Micro WBC 36.3, neutrophil 90. Afebrile Vancomycin/ Metronidazole/ Rocephin/ Clindamycin. Family/dispo Maintain in the ICU Lines Right fem central line. Left rad art line ETT Urinary catheter CHECKLIST CAM-ICU RASS: -1 RESTRAINTS: yes IVF: LR NUTRITION: NPO ANTIBIOTICS: vanco/flagyl/ clinda/rocephin GI: Pepcid DVT: yes GLYCEMIC CONTROL: yes HOB >45: yes MOBILITY: none SBT: yes IS: intubated Wound care: yes Chief Complaint: Necrotizing fascitis infection/intubated/sedated on ventilation SUBJECTIVE Divinaeloisa Amin 63 years old female who presented to the ICU after post-op for necrotizing fascitis of the left buttocks. The patient placed on ventilation, intubated and sedated with prop/fent. Vent sitting AC/PC, FiO2 50, RR 22, PEEP 8, PIP 24, VT 400, P/F ratio 262. No major issue over vent. Patient is morbid obesity. I have seen and examined the patient at the bedside today. Patient has a left radial art line which need no manipulation at all because it is difficult to place art line on her, no wrist extension need and be careful for this art line on the left wrist. Patient is on 2 pressor, will give IVF LR bolus and 2 unit of NAHCO3. Will continue same treatment for now and patient still required the ICU level care. OBJECTIVE VITALS: Vitals: 07/20/24 0810 BP: Pulse: (!) 105 Resp: 22 Temp: SpO2: 100% Physical Exam Vitals and nursing note reviewed. Constitutional: General: She is in acute distress. Appearance: She is morbidly obese. She is ill-appearing. Interventions: She is sedated, intubated and restrained. HENT: Head: Normocephalic and atraumatic. Nose: Nose normal. Eyes: Conjunctiva/sclera: Conjunctivae normal. Cardiovascular: Rate and Rhythm: Regular rhythm. Tachycardia present. Pulses: Normal pulses. Heart sounds: Normal heart sounds. No murmur heard. No friction rub. Pulmonary: Effort: She is intubated. Breath sounds: Normal breath sounds and air entry. No stridor, decreased air movement or transmitted upper airway sounds. No wheezing, rhonchi or rales. Abdominal: General: Bowel sounds are normal. There is no distension. Palpations: Abdomen is soft. Musculoskeletal: General: Deformity (due to left buttock debrided) present. No swelling or signs of injury. Cervical back: Normal range of motion. No rigidity. Right lower leg: No edema. Left lower leg: No edema. Skin: General: Skin is warm. Capillary Refill: Capillary refill takes less than 2 seconds. Findings: Erythema and lesion (left buttock wound) present. Neurological: GCS: GCS eye subscore is 2. GCS verbal subscore is 2. GCS motor subscore is 2. Comments: Patient is intubated and sedated on ventilation with prop/fent. Psychiatric: Comments: Patient is intubated and sedated. Drain/tube output: 07/19: 730 LAB: CBC: Recent Labs 07/19/24 1833 07/20/24 0332 WBC 27.3* 36.3* HGB 12.5 10.8* HCT 37.2 32.8* MCV 87.7 90.1 PLT 289 264 BMP: Recent Labs 07/19/24 1833 07/20/24 0332 NA 130* 131* K 4.3 4.8 CL 97* 102 CO2 13* 14* BUN 56* 57* CREATININE 2.9* 2.8* GLUCOSE 207* 174* RADIOLOGY: XR CHEST PORTABLE Result Date: 07/20/2024 Scattered pulmonary infiltrates. Support tubes as described above. XR ABDOMEN FOR NG/OG/NE TUBE PLACEMENT Result Date: 07/20/2024 Nasogastric tube tip is located within the body the stomach. XR CHEST PORTABLE Result Date: 07/20/2024 1. Pulmonary vascular congestion. 2. Endotracheal tube located 5 cm above the khushbu. XR CHEST PORTABLE Result Date: 07/19/2024 1. Cardiomegaly with mild prominence of the interstitial markings which could represent mild vascular congestion. 2. Questionable rounded density in the right lung base which could represent infiltrate or possible lesion. Short-term follow-up or CT chest is suggested. Alessio Rea MD 07/20/2024, 8:49 AM Cosigned by Alisia Cuellar MD at 07/22/2024 6:13 AM EDT Associated attestation - Alisia Cuellar MD - 07/22/2024 6:13 AM EDT I personally evaluated the patient and directed the medical decision making with Resident/MYRTLE after the physical/radiologic exam and laboratory values were reviewed and confirmed. 63yo female s/p L gluteal debridement for nec fasc. I am continuing to manage multiple medical problems unrelated to their standard post operative care. Neuro: fent, prop Cardio: Severe sepsis requiring high dose Levo, Vaso, start stress dose steroids, continue to resuscitate with fluids, blood, albumin, bicarb and attempt resuscitation prior to OR today - stat echo ordered as EF is not clear Pulm: hypercarbia - manage vent as able ID: severe sepsis POA with necrotizing fasciitis; continue vanc, zosyn, clinda; needs further OR debridement today Code Status: Full Dispo: maintain in ICU Crit Care Time: 45 minutes Alisia Cuellar MD [facility] Pharmacokinetic Monitoring Service - Vancomycin Consulting Provider: Lou RAYA Indication: SSTI Target Concentration: Dosing based on anticipated concentration <15 mg/L due to renal impairment/insufficiency Day of Therapy: 2 Additional Antimicrobials: ceftriaxone, metronidazole Pertinent Laboratory Values: Wt Readings from Last 1 Encounters: 07/20/24 (!) 146.6 kg (323 lb 3.1 oz) Temp Readings from Last 1 Encounters: 07/20/24 98 F (36.7 C) Estimated Creatinine Clearance: 29 mL/min (A) (based on SCr of 2.8 mg/dL (H)). Recent Labs 07/19/243 07/20/24 0332 CREATININE 2.9* 2.8* BUN 56* 57* WBC 27.3* 36.3* Recent vancomycin administrations No vancomycin IV orders with administrations found. Orders not given: vancomycin (VANCOCIN) intermittent dosing (placeholder) Assessment: Date/Time Current Dose Concentration Timing of Concentration (h) AUC 07/20/24 2000 mg IV x1 dose PRESS OPERATOR HELPER 16.8 mcg/mL 18 hours post-dose >600 Note: Serum concentrations collected for AUC dosing may appear elevated if collected in close proximity to the dose administered, this is not necessarily an indication of toxicity Plan: Patient reportedly received single 2000 mg IV dose of vancomycin prior to arrival at [facility] at 1100 on 07/19/24 Given SCr and CrCl, will not provide additional vancomycin dose today. AUC estimated >600 and trough of 16.8 mcg/mL. Repeat vancomycin concentration ordered for 07/21/24 with AM labs. Pharmacy will continue to monitor patient and adjust therapy as indicated Thank you for the consult, Clyde Cai, Pharm.D., ONESIMO, BCCCP 07/20/2024 7:36 AM 07/20/24 0709 Care Plan - Respiratory Goals Achieves optimal ventilation and oxygenation Assess for changes in respiratory status;Assess for changes in mentation and behavior;Position to facilitate oxygenation and minimize respiratory effort;Oxygen supplementation based on oxygen saturation or arterial blood gases;Encourage broncho-pulmonary hygiene including cough, deep breathe, incentive spirometry;Assess the need for suctioning and aspirate as needed;Assess and instruct to report shortness of breath or any respiratory difficulty;Respiratory therapy support as indicated Pharmacy Note Enoxaparin Dose Adjustment Divina Amin is a 63 y.o. female. Pharmacist assessment of enoxaparin dose for VTE prophylaxis. Recent Labs 07/19/241832 BUN 56* Recent Labs 07/19/241832 CREATININE 2.9* Estimated Creatinine Clearance: 26 mL/min (A) (based on SCr of 2.9 mg/dL (H)). Height: Ht Readings from Last 1 Encounters: 07/19/24 1.575 m (5' 2 ) Weight: Wt Readings from Last 1 Encounters: 07/19/24 130.6 kg (288 lb) The following enoxaparin dose has been adjusted based upon renal function and/or patient weight per P&T Guidelines: Lovenox 30 mg BID changed to 30 mg daily Sonia Croft PharmD, BCCCP 07/19/2024 7:27 PM [facility] Admission Medication Reconciliation The patient's list of current home medications has been reviewed. Source(s) of information: Patient, list from Julio caregiver Based on information provided by the above source(s), I have updated the patient's home med list as described below. Please review the ACTION REQUESTED section of this note below for any discrepancies on current hospital orders. I changed or updated the following medications on the patient's home medication list: Flagged for review Lactobacillus Loperamide Meclizine Miconazole cream Miconazole powder Midodrine Nicotine patch Ondansetron Potassium Prochlorperazine Psyllium packets Senna Simethicone Spironolactone Added Adjusted HCTZ changed from 0.5 tablets daily to 1 tablet daily Lantus changed from 20 units BID to 50 units BID Paroxetine changed from 30 mg daily to 10 mg daily Other Notes Please feel free to call me with any questions about this encounter. Thank you. Sonia Croft PharmD, KASI 07/19/2024 7:25 PM [facility] Pharmacokinetic Monitoring Service - Vancomycin Divina Amin is a 63 y.o. female starting on vancomycin therapy for SSTI (concern for necrotizing fasciitis). Pharmacy consulted by ELVER Blake for monitoring and adjustment. Target Concentration: Dosing based on anticipated concentration <15 mg/L due to renal impairment/insufficiency Additional Antimicrobials: Cefepime, Clindamycin Pertinent Laboratory Values: Wt Readings from Last 1 Encounters: 07/19/24 130.6 kg (288 lb) Temp Readings from Last 1 Encounters: 07/19/24 98 F (36.7 C) (Oral) Estimated Creatinine Clearance: 26 mL/min (A) (based on SCr of 2.9 mg/dL (H)). Recent Labs 07/19/24 1833 CREATININE 2.9* BUN 56* WBC PENDING Pertinent Cultures: Culture Date Source Results Pending MRSA Nasal Swab: N/A. Non-respiratory infection. Plan: Concentration-guided dosing due to renal impairment/insufficiency Patient received a 2000 mg dose of vancomycin at OSH at ~1100 today. No additional doses at this time. Will dose by levels given Scr elevation to 2.9 Renal labs as indicated Vancomycin concentration ordered for 6 @ AM labs Pharmacy will continue to monitor patient and adjust therapy as indicated Thank you for the consult, Sonia Croft RPH 07/19/2024 7:23 PM documented in this encounter [facility] 07-30-2024 Hospital Discharge instructions Juan C Coombs DO - 07/30/2024 4:45 PM EDT Trauma Surgery Plan of Care: [facility]. Discussed with attending, Dr. Briseno, who is ok with discharge today as long as patient continues to get daily wound care for dressing changes of large wound and infectious disease to monitor and manage IV antibiotics. Patient has enteral tube feeds started and PICC line for antibiotics. Patient will need follow up with our clinic as listed in follow up tab. This should occur in 1-2 weeks and then will need wound follow up regularly for wound follow up. At first appointment, patient will be evaluated to see if loop ostomy bridge can be removed. Juan C Coombs DO - 07/23/2024 1:58 PM EDT Images from the original note were not included. Continuity of Care Form Patient Name: Divina Amin : 1960 Admit date: 07/19/2024 Discharge date: 07/30/2024 Code Status Order: Full Code Advance Directives: Admitting Physician: Alisia Cuellar MD PCP: Candida Brown, SELLING SPECIALIST - CLOUD ADMINISTRATOR Discharging Nurse: Richmond Vazquez RN Discharging Hospital Unit/Room#: 1005/1005-01 Discharging Unit Emergency Contact: Extended Emergency Contact Information Primary Emergency Contact: MERCY FELIX Relation: Child Past Surgical History: Past Surgical History: Procedure Laterality Date ABDOMEN SURGERY Left 07/22/2024 SHARP EXCISION OF SACRAL WOUND DOWN TO MUSCLE performed by Caitlin Briseno MD at [facility] OR SECTION x 2 CHOLECYSTECTOMY COLOSTOMY N/A 07/22/2024 ATTEMPTED LAPAROSCOPIC COLOSTOMY, CONVERTED TO OPEN TO MAKE DIVERTING LOOP COLOSTOMY performed by Caitlin Briseno MD at [facility] OR LEG SURGERY Left 09/03/2022 DEBRIDEMENT THIGH, GROIN, BUTTOCK performed by Janak Shaffer MD at [facility] OR LEG SURGERY Left 09/04/2022 DEBRIDEMENT THIGH, GROIN, BUTTOCK performed by Janak Shaffer MD at [facility] OR LEG SURGERY Left 09/02/2022 DEBRIDEMENT INCISION AND DRAINAGE OF LEFT THIGH, LEFT GROIN AND LEFT BUTTOCKS performed by Traci Maya MD at [facility] OR LEG SURGERY Left 07/20/2024 LEFT BUTTOCK DEBRIDEMENT performed by Janak Shaffer MD at [facility] OR PERINEAL SURGERY Left 07/19/2024 E2 20A39YS DEBRIDEMENT DOWN TO AND INCLUDING MUSCLE AND FASCIA LEFT BUTTOCK AND GROIN performed by Alisia Cuellar MD at [facility] OR Immunization History: Immunization History Administered Date(s) Administered COVID-19, PFIZER PURPLE top, DILUTE for use, (age 12 y+), 30mcg/0.3mL 06/04/2020, 06/29/2020, 01/03/2021 Active Problems: Patient Active Problem List Diagnosis Code Necrotizing fasciitis (HCC) M72.6 Metabolic acidosis E87.20 Hypernatremia E87.0 Hypokalemia E87.6 VELMA (acute kidney injury) N17.9 Acute respiratory failure with hypoxia ([facility]) J96.01 Diabetic acidosis without coma ([facility]) E11.10 GEMA (obstructive sleep apnea) G47.33 Septic shock ([facility]) A41.9, R65.21 Bandemia D72.825 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 Metabolic encephalopathy G93.41 Open wound T14.8XXA Ventilator dependent ([facility]) Z99.11 Morbid obesity ([facility]) E66.01 Pain of upper abdomen R10.10 Wound of left groin S31.109A Necrotizing soft tissue infection M79.89 Encounter for palliative care Z51.5 Goals of care, counseling/discussion Z71.89 Isolation/Infection: Isolation No Isolation Patient Infection Status None to display Nurse Assessment: Last Vital Signs: BP (!) 140/40 Pulse 75 Temp 99.7 F (37.6 C) (Bladder) Resp 26 Ht 1.575 m (5' 2.01 ) Wt (!) 152 kg (335 lb 1.6 oz) SpO2 96% BMI 61.27 kg/m Last documented pain score (0-10 scale): Pain Level: 8 Last Weight: Wt Readings from Last 1 Encounters: 07/23/24 (!) 152 kg (335 lb 1.6 oz) Mental Status: oriented, alert, and disoriented at times IV Access: - Peripheral IV - site R Cephalic, insertion date: 07/29/24, also R Forearm 22G inserted 07/29/24 Nursing Mobility/ADLs: Walking Dependent Transfer Dependent Bathing Dependent Dressing Dependent Toileting Dependent Feeding Assisted Steam Press Operator Assisted Med Delivery crushed and prefers mixed with applesauce Wound Care Documentation and Therapy: Wound 07/19/24 Sacrum (Active) Wound Image 07/19/24 1836 Dressing Status New dressing applied 07/23/24 1200 Wound Cleansed Not Cleansed 07/23/24 1200 Dressing/Treatment Other (comment) 07/23/24 1200 Wound Assessment Other (Comment) 07/23/24 1200 Drainage Amount Large (50-75% saturated) 07/23/24 1200 Drainage Description Serosanguinous;Brown 07/23/24 1200 Odor Fecal 07/22/24 0400 Margins Unattached edges 07/23/24 1200 Wound Thickness Description not for Pressure Injury Full thickness 07/23/24 1200 Number of days: 3 Incision 07/19/24 Buttocks Left (Active) Wound Image 07/22/24 0100 Dressing Status New dressing applied 07/23/24 1200 Dressing Change Due 07/24/24 07/23/24 1200 Incision Cleansed Other (Comment) 07/23/24 1200 Dressing/Treatment Gauze dressing/dressing sponge;Moisten with saline 07/22/24 1715 Margins Other (Comment) 07/22/24 1715 Incision Assessment Other (Comment);Bleeding 07/23/24 1200 Drainage Amount Large (50-75% saturated) 07/23/24 1200 Drainage Description Serosanguinous;Brown 07/23/24 1200 Odor Fecal 07/22/24 0400 Number of days: 4 Incision 07/22/24 Abdomen Lower;Medial (Active) Dressing Status Clean;Dry;Intact 07/23/24 1200 Dressing Change Due 07/24/24 07/23/24 1200 Incision Cleansed Not Cleansed 07/23/24 1200 Closure Sutures 07/22/24 1656 Margins Approximated 07/22/24 1656 Incision Assessment Bleeding 07/23/24 0400 Drainage Amount None (dry) 07/23/24 1200 Drainage Description Serosanguinous 07/23/24 1200 Number of days: 0 Elimination: Continence: Bowel: Colostomy Bladder: No Urinary Catheter: None and intermittent straight caths Q6H for retention Colostomy/Ileostomy/Ileal Conduit: Yes Colostomy LUQ Loop-Stomal Appliance: 1 piece Colostomy LUQ Loop-Stoma Assessment: Moist, Flush, [place] Colostomy LUQ Loop-Peristomal Assessment: Clean, dry & intact Colostomy LUQ Loop-Stool Appearance: Watery Colostomy LUQ Loop-Stool Color: Red Colostomy LUQ Loop-Stool Amount: Other (Comment) (scant) Colostomy LUQ Loop-Output (mL): 15 ml Date of Last BM: 07/30/24 out of ostomy Intake/Output Summary (Last 24 hours) at 07/23/2024 1358 Last data filed at 07/23/2024 1351 Gross per 24 hour Intake 2800.14 ml Output 2390 ml Net 410.14 ml I/O last 3 completed shifts: In: 6319.8 [I.V.:4881.3; Blood:340; IV Piggyback:1098.5] Out: 3650 [Urine:2945; Emesis/NG output:650; Stool:55] Safety Concerns: Aspiration Risk Impairments/Disabilities: None Nutrition Therapy: Current Nutrition Therapy: - Oral Diet: General and Carb Control 4 carbs/meal (1800kcals/day) - Oral Nutrition Supplement: high calorie high protein - Tube Feedings: Immune Enhancing Routes of Feeding: Oral and Nasogastric Liquids: No Restrictions Daily Fluid Restriction: no Last Modified Barium Swallow with Video (Video Swallowing Test): not done Treatments at the Time of Hospital Discharge: Respiratory Treatments: albuterol Oxygen Therapy: is on oxygen at 4 L/min per nasal cannula. Ventilator: - BiPAP IPAP: 14 cmH20, CPAP/EPAP: 8 cmH2O only when sleeping Rehab Therapies: Physical Therapy, Occupational Therapy, and Speech/Language Therapy Weight Bearing Status/Restrictions: No weight bearing restrictions Other Medical Equipment (for information only, NOT a DME order): n/a Other Treatments: Wound care to buttocks Patient's personal belongings (please select all that are sent with patient): None RN SIGNATURE: CASE MANAGEMENT/SOCIAL WORK SECTION Inpatient Status Date: Readmission Risk Assessment Score: [facility] RISK OF UNPLANNED READMISSION 2.0 17.3 Total Score Discharging to Facility/ Agency [facility]: [facility] Address: Phone: Fax: Dialysis Facility (if applicable) Name: Address: Dialysis Schedule: Phone: Fax: Buyer Tobacco Head/Fitness Studies Teacher signature: PHYSICIAN SECTION Prognosis: Good Condition at Discharge: Stable Rehab Potential (if transferring to Rehab): Fair Recommended Labs or Other Treatments After Discharge: PT/OT, follow white blood cell count tomorrow then as frequently as able or up to every other day. Dressing changes daily. DC to SNF Physician Certification: I certify the above information and transfer of Divina Amin is necessary for the continuing treatment of the diagnosis listed and that she requires LTAC for less 30 days. Update Admission H&P: No change in H&P PHYSICIAN SIGNATURE: The following attachments cannot be sent through Care Everywhere.Blood Transfusions: General Info ([place])documented in this encounter [facility] 12-06-2023 History of Present illness Narrative Associated Problem(s): Hypoglycemia Possible episode of this a few weeks ago, shaky, did not check sugar, had not eaten Associated Problem(s): Candidiasis of breast Diflucan X3 doses, hold statin while taking Nystatin Skin care discussed Associated Problem(s): Moderate persistent asthma with acute exacerbation in adult ([facility]) Continue with current inhalers Recommend quitting smoking as well Associated Problem(s): Type 2 diabetes mellitus with insulin therapy ([facility]) Check blood sugars daily, notify if <70 [...] hypoglycemia Will trial to get CGM approved Associated Problem(s): Chronic kidney disease, stage 3b ([facility]) ([facility]) Check labs Images from the original note were not included. Divina Amin is a 63 y.o. female presents with chief complaint of No chief complaint on file. HPI: Asthma: continues to smoke, uses inhaler Diabetes She presents for her follow-up diabetic visit. She has type 2 diabetes mellitus. Her disease course has been fluctuating. There are no hypoglycemic associated symptoms. Pertinent negatives for hypoglycemia include no dizziness, headaches, nervousness/anxiousness, seizures or tremors. Associated symptoms include foot paresthesias. Pertinent negatives for diabetes include no blurred vision, no chest pain, no fatigue, no foot ulcerations, no polydipsia, no polyphagia, no polyuria and no visual change. There are no hypoglycemic complications. Diabetic complications include peripheral neuropathy. Pertinent negatives for diabetic complications include no heart disease or nephropathy. Risk factors for coronary artery disease include diabetes mellitus, dyslipidemia, hypertension, obesity, sedentary lifestyle and tobacco exposure. Current diabetic treatment includes oral agent (dual therapy) and insulin injections. When asked about meal planning, she reported none. She has not had a previous visit with a dietitian. She never participates in exercise. Her overall blood glucose range is 140-180 mg/dl. An ITZ inhibitor/angiotensin II receptor madeline is being taken. Hypertension This is a chronic problem. The current episode started more than 1 year ago. The problem is unchanged. The problem is controlled. Pertinent negatives include no blurred vision, chest pain, headaches, neck pain, palpitations, peripheral edema, PND or shortness of breath. Risk factors for coronary artery disease include diabetes mellitus, dyslipidemia, obesity, post-menopausal state, sedentary lifestyle and smoking/tobacco exposure. Past treatments include diuretics and ITZ inhibitors. The current treatment provides significant improvement. There are no compliance problems. Rash This is a recurrent problem. The current episode started more than 1 month ago. The problem has been gradually worsening since onset. The affected locations include the chest. The rash is characterized by redness, scaling and itchiness. She was exposed to nothing. Associated symptoms include coughing. Pertinent negatives include no congestion, diarrhea, eye pain, fatigue, fever, shortness of breath, sore throat or vomiting. The treatment provided no relief. Her past medical history is significant for asthma. SUBJECTIVE: MEDICATIONS: Current Outpatient Medications Medication Instructions albuterol HFA 90 mcg/act inhaler 2 puffs, Inhalation, Every 6 hours PRN albuterol 2.5 mg, Nebulization, 4 times daily PRN, Take 2.5 mg by nebulization 4 (four) times a day as needed for wheezing glipiZIDE (GLUCOTROL) 10 mg, Oral, 2 times daily before meals Glucose Blood (Blood Glucose Test Strips 333) strip 1 each, Topical, 4 times daily hydroCHLOROthiazide (HYDRODIURIL) 25 mg, Oral, Every morning insulin glargine (LANTUS) 25 Units, Subcutaneous, 2 times daily insulin glargine (LANTUS) 25 Units, Subcutaneous, 2 times daily lisinopril 5 mg, Oral, Every morning meclizine (ANTIVERT) 25 mg, Oral, 3 times daily PRN metFORMIN (GLUCOPHAGE) 500 mg, Oral, 2 times daily with meals omeprazole (PRILOSEC) 20 mg, Oral, Daily before breakfast PARoxetine (PAXIL) 10 mg, Oral, Every morning pravastatin (PRAVACHOL) 20 mg, Oral, Nightly ALLERGIES: Allergies Allergen Reactions Keflex [Cephalexin] Hives Penicillins Hives REVIEW OF SYMPTOMS: Review of Systems Constitutional: Negative for appetite change, chills, fatigue and fever. HENT: Negative for congestion, ear pain and sore throat. Eyes: Negative for blurred vision, pain, discharge, redness and visual disturbance. Respiratory: Positive for cough and wheezing. Negative for shortness of breath. Cardiovascular: Negative for chest pain, palpitations, leg swelling and PND. Gastrointestinal: Negative for abdominal pain, blood in stool, constipation, diarrhea, nausea and vomiting. Genitourinary: Negative for difficulty urinating, dysuria and frequency. Musculoskeletal: Negative for arthralgias, back pain, joint swelling, myalgias and neck pain. Skin: Positive for rash (c/w candidiasis under bilat breasts). Negative for wound. Neurological: Negative for dizziness, tremors, seizures, syncope and headaches. Psychiatric/Behavioral: Negative for behavioral problems, self-injury and suicidal ideas. The patient is not nervous/anxious. Hematological: Does not bruise/bleed easily. Endocrine: Negative for polydipsia, polyphagia and polyuria. Allergic/Immunologic: Positive for environmental allergies. Negative for food allergies. PAST MEDICAL HISTORY Past Medical History: Diagnosis Date Abscess Anxiety and depression ([facility]) 03/20/2023 Asthma, severe ([facility]) 03/20/2023 At high risk for falls Bilateral hip pain Bilateral thoracic back pain Boil CKD (chronic kidney disease), stage III ([facility]) ([facility]) COPD (chronic obstructive pulmonary disease) ([facility]) 03/20/2023 Diabetes mellitus, type 2 ([facility]) Diabetic neuropathy ([facility]) Dizziness, nonspecific Edema of extremities Essential hypertension ([facility]) 03/20/2023 GERD (gastroesophageal reflux disease) Hyperlipidemia ([facility]) 03/20/2023 Hypomagnesemia Left shoulder pain Moderate persistent asthma with acute exacerbation in adult ([facility]) 03/20/2023 Right otitis media Tobacco user Type 2 diabetes mellitus with insulin therapy ([facility]) 03/20/2023 Yeast infection of the vagina History reviewed. No pertinent surgical history. family history includes Asthma in her mother; Cancer in her mother; Diabetes in her mother; Emphysema in her father; Heart disease in her father and mother; Heart failure in her mother; Lymphoma in her mother; Prostate cancer in her father. OBJECTIVE: Visit Vitals BP 126/76 (BP Location: Left arm, Patient Position: Sitting, BP Cuff Size: Adult long) Pulse 99 Temp 98.4 F (Temporal) Wt 320 lb 9.6 oz SpO2 94% BMI 58.64 kg/m Smoking Status Every Day BSA 2.52 m Physical Exam Vitals and nursing note reviewed. Constitutional: General: She is not in acute distress. Appearance: Normal appearance. HENT: Head: Normocephalic and atraumatic. Right Ear: External ear normal. Left Ear: External ear normal. Nose: Nose normal. Mouth/Throat: Mouth: Mucous membranes are moist. Eyes: Extraocular Movements: Extraocular movements intact. Conjunctiva/sclera: Conjunctivae normal. Neck: Vascular: No carotid bruit. Cardiovascular: Rate and Rhythm: Normal rate and regular rhythm. Pulses: Normal pulses. Heart sounds: Normal heart sounds. No murmur heard. Pulmonary: Effort: Pulmonary effort is normal. No respiratory distress. Breath sounds: Normal breath sounds. No wheezing, rhonchi or rales. Abdominal: General: Bowel sounds are normal. There is no distension. Palpations: Abdomen is soft. There is no mass. Tenderness: There is no abdominal tenderness. Musculoskeletal: General: Normal range of motion. Cervical back: Normal range of motion and neck supple. Right lower leg: No edema. Left lower leg: No edema. Lymphadenopathy: Cervical: No cervical adenopathy. Skin: General: Skin is warm and dry. Capillary Refill: Capillary refill takes 2 to 3 seconds. Findings: No rash (under bilat breast : diffuse erythema, scale, skin c/w candidiasis). Neurological: General: No focal deficit present. Mental Status: She is alert and oriented to person, place, and time. Psychiatric: Mood and Affect: Mood normal. Behavior: Behavior normal. Thought Content: Thought content normal. Judgment: Judgment normal. ASSESSMENT AND PLAN: No follow-ups on file. Problem List Items Addressed This Visit Tobacco user - Primary The patient has been advised of the risks of continued smoking: stroke, [place], all forms of cancer, lung disease, and . Options for quitting smoking include: cold turkey, hypnosis, acupuncture, nicotine replacement meds (gum, lozenges, and patches), Buproprion, and Varenicline. At this time pt is encouraged to evaluate their goals for wanting to quit smoking, and reach out to provider when ready to start this process Moderate persistent asthma with acute exacerbation in adult ([facility]) Continue with current inhalers Recommend quitting smoking as well Type 2 diabetes mellitus with insulin therapy ([facility]) Check blood sugars daily, notify if <70 [...] hypoglycemia Will trial to get CGM approved Relevant Medications Continuous Glucose Project Crew Worker (Dexcom G7 Project Crew Worker) device Continuous Glucose Sensor (Dexcom G7 Sensor) [facility] Type 2 diabetes mellitus with diabetic chronic kidney disease ([facility]) Chronic kidney disease, stage 3b ([facility]) ([facility]) Check labs Morbid (severe) obesity due to excess calories ([facility]) Body mass index (BMI) 50.0-59.9, adult ([facility]) Needs flu shot Relevant Orders Flu vaccine, MDCK, quadrivalent, PF (DZI221) (Flucelvax single dose syringe) (Completed) Candidiasis of breast Diflucan X3 doses, hold statin while taking Nystatin Skin care discussed Relevant Medications fluconazole (Diflucan) 150 MG tablet nystatin (Mycostatin) cream Hypoglycemia Possible episode of this a few weeks ago, shaky, did not check sugar, had not eaten Relevant Medications Continuous Glucose Project Crew Worker (Dexcom G7 Project Crew Worker) device Continuous Glucose Sensor (Dexcom G7 Sensor) [facility] Associated Problem(s): Tobacco user The patient has been advised of the risks of continued smoking: stroke, [place], all forms of cancer, lung disease, and . Options for quitting smoking include: cold turkey, hypnosis, acupuncture, nicotine replacement meds (gum, lozenges, and patches), Buproprion, and Varenicline. At this time pt is encouraged to evaluate their goals for wanting to quit smoking, and reach out to provider when ready to start this process documented in this encounter [facility] 11-06-2023 Telephone encounter Note Please call pt to schedule an appt, she cancelled her last 2 appts, I would like her scheduled an appt in the next few weeks and emphasize my expectation that she does KEEP the appt LA [facility] 11-06-2023 Miscellaneous Notes Please call pt to schedule an appt, she cancelled her last 2 appts, I would like her scheduled an appt in the next few weeks and emphasize my expectation that she does KEEP the appt LA documented in this encounter [facility] 09-20-2022 History of Present illness Narrative RN called report to [place], all questions answered. Pt discharged via stretcher with LF and all personal belongings. Comprehensive Nutrition Assessment Type and Reason for Visit: Reassess Nutrition Recommendations/Plan: Modify current diet to CCHO - Medium Modify ONS to Boost Pudding BID Monitor/encourage PO intake Malnutrition Assessment: Malnutrition Status: At risk for malnutrition (Comment) (09/20/22 1122) Context: Acute Illness Findings of the 6 clinical characteristics of malnutrition: Energy Intake: 50% or less of estimated energy requirements for 5 or more days Weight Loss: Unable to assess Body Fat Loss: No significant body fat loss Muscle Mass Loss: No significant muscle mass loss Fluid Accumulation: Mild Generalized Banking Services Advisor Strength: Not Performed Nutrition Assessment: 61 yo F adm necrotizing faciitis to L groin. Pt extubated 09/14. Pt reports poor appetite 2/2 nausea. Breakfast tray observed with no PO intake. Per RN, pt has been experiencing nausea and diarrhea, suspects pt avoids eating to prevent diarrhea, endorses slowly improving PO intake. RN noted pt started on probiotic. Pt dislikes ONS, willing to trial Boost Pudding, declined Magic Cup. LBM 09/19. +1 pitting generalized/BLE edema noted. Wt fluctuation noted, will monitor, suspect fluid changes, accuracy with bedscale change, updated wt ordered. Nutrition Related Findings: labs/meds reviewed Wound Type: Surgical Incision (to left groin) Current Nutrition Intake & Therapies: Average Meal Intake: 1-25%, 0% Average Supplements Intake: Refusing to take ADULT DIET; Regular; 4 carb choices (60 gm/meal) ADULT ORAL NUTRITION SUPPLEMENT; Breakfast, Dinner; Fortified Pudding Oral Supplement Anthropometric Measures: Height: 5' 2 (157.5 cm) [place] Body Weight (IBW): 110 lbs (50 kg) Admission Body Weight: 297 lb 2.9 oz (134.8 kg) Current Body Weight: 282 lb 1.6 oz (128 kg) (09/16), 256.5 % IBW. Weight Source: Bed Scale Current BMI (kg/m2): 51.6 Usual Body Weight: ([place]) Weight Adjustment For: No Adjustment BMI Categories: Obese Class 3 (BMI 40.0 or greater) Estimated Daily Nutrient Needs: Energy Requirements Based On: Kcal/kg Weight Used for Energy Requirements: [place] Energy (kcal/day): 0164-5770 kcals/day Weight Used for Protein Requirements: [place] Protein (g/day): 90-110 gm pro/day Method Used for Fluid Requirements: Other (Comment) Fluid (ml/day): per MD Nutrition Diagnosis: Increased nutrient needs related to (healing; necrotizing fascitis) as evidenced by wounds Inadequate oral intake related to impaired respiratory function as evidenced by (recent intubation) Nutrition Interventions: Food and/or Nutrient Delivery: Modify Current Diet, Modify Oral Nutrition Supplement Nutrition Education/Counseling: No recommendation at this time Coordination of Nutrition Care: Continue to monitor while inpatient Plan of Care discussed with: RN Goals: Previous Goal Met: Progressing toward Goal(s) Goals: Meet at least 75% of estimated needs, prior to discharge Nutrition Monitoring and Evaluation: Behavioral-Environmental Outcomes: None Identified Food/Nutrient Intake Outcomes: Food and Nutrient Intake, Supplement Intake Physical Signs/Symptoms Outcomes: Biochemical Data, GI Status, Fluid Status or Edema, Hemodynamic Status, Weight, Skin, Nutrition Focused Physical Findings Discharge Planning: Too soon to determine Kim Foley MS, CRIS, LD Contact: Images from the original note were not included. [facility] Progress Note Divina Amin Date: 09/20/2022 LOS: 18 Reason for F/U : Necrotizing soft tissue infection Impression : Left perineal, thigh/gluteal necrotizing soft tissue infection status post surgical drainage 09/02/2022 Status post second look/I&D 09/03/2022 Status post irrigation and closure of left thigh and groin and buttock soft tissue defect 09/04/2022 Acute respiratory failure currently ventilator dependent Shock-resolved Diabetes mellitus with DKA currently on insulin drip Extreme obesity Acute kidney injury with unknown baseline creatinine COPD Recommendations: Monitor off antibiotics: The patient completed antimicrobial therapy with meropenem for necrotizing soft tissue infection-End date 09/16/22 for a total of 14 days of treatment She was previously on linezolid which was discontinued 09/07/2022 Completed fluconazole which was added 09/07/2022 Continue local wound care Infection Control Recommendations: [place] precautions Discharge Planning: Estimated Length of IV antimicrobials:09/16/22 Patient will need Midline Catheter Insertion/ PICC line Insertion: No Patient will need: Home IV , Infusion Center, SNF, LTAC: No Patient will need outpatient wound care: Yes Medical Decision making / Summary of Stay: Divina Amin is a 61 y.o.-year-old female who was initially admitted on 09/02/2022. Divina is a morbidly obese diabetic female with also a history of asthma/COPD and is currently intubated and the history is obtained from the daughter who is at bedside. It is my understanding that Divina has had a history of boils in her left groin area which have previously been drained in the past. She has certainly not needed to be hospitalized for these and she had been complaining of a boil/infection in her left groin for about a week at home. The patient ended up being started on Bactrim about a day ago but the daughter after getting home from work in the late afternoon yesterday found that Divina was out of it and was having difficulty ambulating going to the bathroom. She ended up calling EMS and the patient was taken to an outlying facility in [place] where work-up showed some leukocytosis, left groin soft tissue infection with some soft tissue gas and the patient was hypotensive. The patient received fluid resuscitation and was transferred here where blood sugars were elevated and the patient was started on the DKA protocol. The patient became more confused and was seen by the general surgery team started on antimicrobial therapy with meropenem and linezolid due to history of a penicillin allergy. The patient had an obvious wound on the left perineum/upper thigh that was protruding necrotic and fluctuant. The patient was taken to the operating room this morning underwent incision and drainage of her left thigh/left groin and buttocks abscess/soft tissue infection and there was a sinclair necrotizing tissue appreciated during the surgery. The margins included the left major labia majora, left upper thigh, left inferior groin, left perineum/gluteal area. The patient is currently in the intensive care unit and I was asked to evaluate and help with antibiotic choice. The patient was taken to the operating room 09/03/2022 and underwent second look/debridement procedure of the left groin/thigh area. The patient was taken to the operating room 09/04/2022 and underwent irrigation and closure of the left thigh groin buttock and soft tissue defect after the patient was found to have a clean wound base and there was placement of 2 flat JESSICA drains with multilayer closure. Current Evaluation:09/20/2022 BP (!) 152/78 Pulse 91 Temp 97.5 F (36.4 C) (Oral) Resp 17 Ht 5' 2 (1.575 m) Wt 282 lb 1.6 oz (128 kg) SpO2 95% BMI 51.60 kg/m Temperature Range: Temp: 97.5 F (36.4 C) Temp Av.7 F (36.5 C) Min: 97.5 F (36.4 C) Max: 98 F (36.7 C) Patient transferred out of the ICU Afebrile VS stable HTN The patient was awake and alert upon evaluation. Patient had no acute concerns or questions Medications reviewed: Monitor off antibiotics Diflucan completed on 09/12/22 09/16/22:Meropenem completed for necrotizing soft tissue infection Bumex and free water given for VELMA with hypernatremia per Nephrology. CT chest on 09/09/22 showed small to moderate bilateral pleural effusions with adjacent atelectasis and patchy opacities in the MICHAEL. Sputum culture on 09/11 is showing light growth yeast. FMS is in place for liquid stool No other acute issues noted. Discussed with RN Labs Reviewed 09/20/2022 BUN:64-->60-->61-->55-->12 Cr: 2.1-->1.7-->1.5-->1.5-->0.8 Na: 151-->148-->145-->144 WBC: 12.1-->13.9-->11.1-->12.5-->8.3 Hgb: 12.9-->12.2-->11.0-->11.6-->11.2 Plt: 235-->379-->214-->241-->351-->409 Cultures: Results Procedure Component Value Units Date/Time Culture, Respiratory [[id number]] (Abnormal) Collected: 09/11/22 0018 Order Status: Completed Specimen: Sputum Expectorated Updated: 09/13/22 1126 Specimen Description .EXPECTORATED SPUTUM Direct Exam >10, <25 NEUTROPHILS/LPF < 10 EPITHELIAL CELLS/LPF FEW YEAST Culture Chasity albicans/dubliniensis MODERATE GROWTH NO NORMAL CITLALI Review of Systems Constitutional: Negative. HENT: Negative for sore throat. Eyes: Negative. Respiratory: Negative. Cardiovascular: Negative. Gastrointestinal: Positive for diarrhea. Endocrine: Negative. Musculoskeletal: Negative. Skin: Surgical sites present Allergic/Immunologic: Negative. Neurological: Negative. Hematological: Negative. Psychiatric/Behavioral: Negative. All other systems reviewed and are negative. Physical Examination : Physical Exam Vitals and nursing note reviewed. Constitutional: Appearance: Normal appearance. She is well-developed. She is obese. Interventions: She is sedated. She is not intubated. HENT: Head: Normocephalic and atraumatic. Nose: Nose normal. Mouth/Throat: Mouth: Mucous membranes are moist. Eyes: Pupils: Pupils are equal, round, and reactive to light. Cardiovascular: Rate and Rhythm: Regular rhythm. Heart sounds: Normal heart sounds. Pulmonary: Effort: Pulmonary effort is normal. She is not intubated. Breath sounds: Normal breath sounds. Abdominal: General: Bowel sounds are normal. Palpations: Abdomen is soft. Comments: Surgical site Musculoskeletal: General: Normal range of motion. Cervical back: Neck supple. Skin: General: Skin is warm and dry. Capillary Refill: Capillary refill takes less than 2 seconds. Comments: There is a dressing in the perineal area which was not removed Neurological: General: No focal deficit present. Mental Status: She is alert and oriented to person, place, and time. Psychiatric: Mood and Affect: Mood normal. Behavior: Behavior normal. Thought Content: Thought content normal. Judgment: Judgment normal. Laboratory data: I have independently reviewed the followinglabs: CBC with Differential: Recent Labs 09/19/22 0616 09/20/22 0509 WBC 7.4 8.3 HGB 11.4* 11.2* HCT 33.9* 34.5* PLT 314 409 LYMPHOPCT 26 23* MONOPCT 10 10 BMP: Recent Labs 09/18/22 0640 09/19/22 0616 09/20/22 0509 NA 142 143 144 K 3.2* 3.1* 3.9 CL 105 102 107 CO2 24 26 22 BUN 20 15 12 CREATININE 0.7 0.8 0.8 MG 1.8 1.9 -- Hepatic Function Panel: No results for input(s): PROT, LABALBU, BILIDIR, IBILI, BILITOT, ALKPHOS, ALT, AST in the last 72 hours. No results found for: PROCAL Lab Results Component Value Date/Time CRP 41.2 09/17/2022 06:33 AM CRP 489.6 09/02/2022 01:35 AM No results found for: SEDRATE No results found for: DDIMER No results found for: FERRITIN No results found for: LDH No results found for: FIBRINOGEN No results found for requested labs within last 30 days. No results found for: COVID19 No results for input(s): VANCOTROUGH in the last 72 hours. Imaging Studies: RETROPERITONEAL ULTRASOUND OF THE KIDNEYS AND URINARY BLADDER 09/03/2022 IMPRESSION: 1. Simple midpole left renal cyst measuring 2.7 cm. 2. No hydronephrosis. Specimen Collected: 09/03/22 12:52 EDT Last Resulted: 09/03/22 13:03 EDT Cultures: Culture, Blood 1 [[id number]] Collected: 09/02/22 0620 Order Status: Completed Specimen: Blood Updated: 09/07/22724 Specimen Description .BLOOD Special Requests R FA 5ML Culture NO GROWTH 5 DAYS Culture, Blood 2 [[id number]] Collected: 09/02/22624 Order Status: Completed Specimen: Blood Updated: 09/07/22724 Specimen Description .BLOOD Special Requests R HAND 3ML Culture NO GROWTH 5 DAYS Culture, Blood 1 [[id number]] Collected: 09/02/22 0104 Order Status: Completed Specimen: Blood Updated: 09/07/22 0205 Specimen Description .BLOOD Special Requests RJUG, 10ML Culture NO GROWTH 5 DAYS MRSA DNA Probe, Nasal [[id number]] Collected: 09/02/22 0600 Order Status: Completed Specimen: Nasal Updated: 09/03/22 1028 Specimen Description .NASAL SWAB MRSA, DNA, Nasal NEGATIVE Comment: NEGATIVE: MRSA DNA not detected by nucleic acid amplification. Results should be used as an adjunct to nosocomial control efforts to identify patients needing enhanced precautions. The test is not intended to identify patients with staphylococcal infections. Results should not be used to guide or monitor treatment for MRSA infections. Culture, Urine [[id number]] Collected: 09/02/22 0138 Order Status: Completed Specimen: Urine, clean catch Updated: 09/03/22 0832 Specimen Description .CLEAN CATCH URINE Culture NO GROWTH Medications: pantoprazole 40 mg Oral QAM AC psyllium 1 packet Oral Daily lactobacillus 1 capsule Oral BID WC meclizine 12.5 mg Oral TID insulin glargine 20 Units SubCUTAneous BID miconazole Topical BID insulin lispro 0-16 Units SubCUTAneous 4x Daily AC & HS spironolactone 25 mg Oral Daily ipratropium 0.5 mg-albuterol 2.5 mg 1 Dose Inhalation BID hydrALAZINE 25 mg Oral 3 times per day PARoxetine 10 mg Per NG tube Daily sodium chloride flush 5-40 mL IntraVENous 2 times per day heparin (porcine) 5,000 Units SubCUTAneous 3 times per day [facility] Kianna Sanches DPM [employer] messaging OFFICE: Thank you for allowing us to participate in the care of this patient. Please call with questions. This note is created with the assistance of a speech recognition program. While intending to generate a document that actually reflects the content of the visit, the document can still have some errors including those of syntax and sound a like substitutions which may escape proof reading. In such instances, actual meaning can be extrapolated by contextual diversion. Lyndon Garcia MD ATTESTATION: I have discussed the case, including pertinent history and exam findings with the medical office technologist. I have evaluated the History, physical findings and pictures of the patient and the william elements of the encounter have been performed by me. I have reviewed the laboratory data, other diagnostic studies and discussed them with the medical office technologist. I have updated the medical record where necessary. I agree with the assessment, plan and orders as documented by the medical office technologist and I have modified them as necessary. Elements of Medical Decision Making: Note: I have independently performed the steps listed below as part of the medical decision making and evaluation. Examined and discussed with patient. Labs, medications, radiologic studies were reviewed with personal review of films Large amounts of data were reviewed Discussed with nursing Staff, urban and regional planner Infection Control and Prevention measures reviewed All prior entries were reviewed Administer medications as ordered Prognosis: Fair Discharge planning reviewed Follow up as outpatient. Lyndon Garcia MD. Images from the original note were not included. [facility] Internal Medicine Teaching Residency Program Inpatient Daily Progress Note Patient: Divina Amin Date of : 1960 Acct: [id number] Room: [address] [place] [address] Admit date: 09/02/2022 Today's date: 09/20/22 Number of days in the hospital: 18 SUBJECTIVE Admitting Diagnosis: Necrotizing fasciitis (HCC) CC: AMS - Pt examined at bedside. Chart & results reviewed. - per SIGECAPS patient does still have depression - She still has groin drain in place, will reach out to for recommendations. Wound care on consult - Discussed diabetic regimen at home and in the hospital. Spoke about patient potentially going home with insulin - She has had 2-3 loose bowl movements over the past two nights. Has mild right lower quadrant pain - Denies using bronchodilators at home - Refused bipap last night, again. She reiterated that she does not use cpap at home - Encouraged patient to work with PT/OT with more effort this morning Review of Systems Constitutional: Positive for fatigue. Negative for chills and fever. Respiratory: Negative for shortness of breath. Cardiovascular: Negative for chest pain. Gastrointestinal: Positive for abdominal pain and diarrhea. Negative for abdominal distention and vomiting. Skin: Positive for wound. Neurological: Positive for dizziness. Psychiatric/Behavioral: Negative for confusion. BRIEF HISTORY 61 y.o. female with past medical history significant for hypertension, type 2 diabetes mellitus, asthma, COPD, obesity who was initially admitted on 09/02/2022 with Necrotizing fasciitis (HCC) [M72.6] and presented with pain and redness and swelling involving the gluteal area and groin. Patient was initially alert and oriented x4 at outlying facility, she was noted to have an elevated WBC count and abscess in the left groin which showed subcutaneous gas concerning for necrotizing fascitis. Patient received 3 L of crystalloid fluids and a dose of vancomycin prior to transfer. In the ER patient was alert x0 VBG showed pH of 6.79, WBC count of 26, blood glucose in the 500s, beta hydroxybutyrate of 10, bicarb of less than 6. Patient was immediately evaluated by surgical team and another 2 L of fluids was given. Patient was initially started on DKA protocol in the emergency department. 1 amp of bicarb was given to her. In the ICU patient was intubated on 02/09 for mental status and extubated on 09/14. Underwent debridement on 0 09/03 s/p multiple debridements of necrotizing soft tissue infection of the left groin and perineum. S/p washout and closure 09/04 1 removed from the left thigh on 09/12 General surgery JESSICA #2 left thigh Nephrology was consulted for chronic kidney disease and left VELMA and was hyponatremic. Advised to continue 0.3 saline at 100 mm/h Continue Aldactone 25 daily. And monitor renal function. OBJECTIVE Vital Signs: BP (!) 152/78 Pulse 91 Temp 97.5 F (36.4 C) (Oral) Resp 17 Ht 5' 2 (1.575 m) Wt 282 lb 1.6 oz (128 kg) SpO2 95% BMI 51.60 kg/m Temp (24hrs), Av.7 F (36.5 C), Min:97.5 F (36.4 C), Max:98 F (36.7 C) In: 250 Out: 1230 [Urine:1200; Drains:30] Physical Exam Constitutional: General: She is not in acute distress. Appearance: She is obese. She is not ill-appearing. Cardiovascular: Rate and Rhythm: Normal rate and regular rhythm. Heart sounds: Murmur heard. Systolic murmur is present with a grade of 3/6. Pulmonary: Effort: No respiratory distress. Breath sounds: No stridor. No wheezing. Abdominal: Tenderness: There is abdominal tenderness (mild) in the right lower quadrant. Genitourinary: Comments: Dressings in place, drain in place Musculoskeletal: Right lower leg: No edema. Left lower leg: No edema. Skin: Capillary Refill: Capillary refill takes less than 2 seconds. Comments: Early signs of stasis dermatitis Neurological: General: No focal deficit present. Psychiatric: Mood and Affect: Mood is depressed. Medications: Scheduled Medications: pantoprazole 40 mg Oral QAM AC psyllium 1 packet Oral Daily lactobacillus 1 capsule Oral BID WC meclizine 12.5 mg Oral TID insulin glargine 20 Units SubCUTAneous BID miconazole Topical BID insulin lispro 0-16 Units SubCUTAneous 4x Daily AC & HS spironolactone 25 mg Oral Daily ipratropium 0.5 mg-albuterol 2.5 mg 1 Dose Inhalation BID hydrALAZINE 25 mg Oral 3 times per day PARoxetine 10 mg Per NG tube Daily sodium chloride flush 5-40 mL IntraVENous 2 times per day heparin (porcine) 5,000 Units SubCUTAneous 3 times per day Continuous Infusions: dextrose PRN Medicationsondansetron, 4 mg, Q6H PRN oxyCODONE, 10 mg, Q6H PRN acetaminophen, 650 mg, Q4H PRN glucose, 4 tablet, PRN dextrose bolus, 125 mL, PRN Or dextrose bolus, 250 mL, PRN glucagon (rDNA), 1 mg, PRN dextrose, , Continuous PRN sodium chloride flush, 5-40 mL, PRN dextrose bolus, 125 mL, PRN polyethylene glycol, 17 g, Daily PRN albuterol, 2.5 mg, As Directed RT PRN Diagnostic Labs: CBC: Recent Labs 09/18/22 0640 09/19/22 0616 09/20/22 0509 WBC 8.5 7.4 8.3 RBC 3.59* 3.60* 3.63* HGB 11.0* 11.4* 11.2* HCT 33.8* 33.9* 34.5* MCV 94.2 94.2 95.0 RDW 12.3 12.7 12.9 PLT 334 314 409 BMP: Recent Labs 09/18/22 0640 09/19/22 0616 09/20/22 0509 NA 142 143 144 K 3.2* 3.1* 3.9 CL 105 102 107 CO2 24 26 22 BUN 20 15 12 CREATININE 0.7 0.8 0.8 BNP: No results for input(s): BNP in the last 72 hours. PT/INR: No results for input(s): PROTIME, INR in the last 72 hours. APTT: No results for input(s): APTT in the last 72 hours. CARDIAC ENZYMES: No results for input(s): CKMB, CKMBINDEX, TROPONINI in the last 72 hours. Invalid input(s): CKTOTAL;3 FASTING LIPID PANEL: Lab Results Component Value Date TRIG 257 (H) 09/13/2022 LIVER PROFILE: No results for input(s): AST, ALT, ALB, BILIDIR, BILITOT, ALKPHOS in the last 72 hours. MICROBIOLOGY: Lab Results Component Value Date/Time CULTURE Chasity albicans/dubliniensis MODERATE GROWTH 09/11/2022 12:18 AM CULTURE NO NORMAL CITLALI 09/11/2022 12:18 AM Imaging: XR CHEST PORTABLE Result Date: 09/19/2022 EXAMINATION: ONE XRAY VIEW OF THE CHEST 09/19/2022 8:27 am COMPARISON: Chest radiograph performed 09/09/2022. HISTORY: ORDERING SYSTEM PROVIDED HISTORY: Follow up TECHNOLOGIST PROVIDED HISTORY: Follow up Reason for Exam: uprt port chest FINDINGS: There are scattered infiltrates. There is no pneumothorax. The mediastinal structures are unremarkable. The upper abdomen is unremarkable. The extrathoracic soft tissues are unremarkable. Scattered infiltrates. ASSESSMENT & PLAN ASSESSMENT / PLAN: Principal Problem: Necrotizing fasciitis (HCC) Active Problems: Metabolic acidosis Hypernatremia Hypokalemia VELMA (acute kidney injury) (HCC) Acute respiratory failure with hypoxia (HCC) Diabetic acidosis without coma (HCC) GEMA (obstructive sleep apnea) Septic shock (HCC) Bandemia Deborah gangrene Metabolic encephalopathy Open wound Ventilator dependent (HCC) Morbid obesity (HCC) Resolved Problems: * No resolved hospital problems. * Necrotizing fasciitis in the left groin: S/p multiple debridements of necrotic soft tissue infection of the left groin. S/p washout and closure 09/04. JESSICA #1 removed from left thigh on 09/12 by general surgery Continue to have TRINI #2 on left thigh Completed meropenem, fluconazole, or linezolid Following recommendations Acute diarrhea - 2-3 episodes of diarrhea of the past couple of nights - continue psyllium and lactobacillus - Loose stools without blood - Patient states subjective abdominal pain, very mild RLQ pain noted on exam. Will watch conservatively Metabolic acidosis due to DKA - resolved Bicarb and anion gap WNL VELMA SECONDARY to ischemic ATN complicated by vascular depletion. Creatinine baseline 1.1, peaked up to 3.3 Monitor renal function. Recent Labs 09/18/22 0640 09/19/22 0616 09/20/22 0509 BUN 20 15 12 CREATININE 0.7 0.8 0.8 DKA- resolved Type 2 diabetes mellitus - Had insulin drip per DKA protocol - glipizide 10mg BID and metformin 500mg ER at home - Lantus 20 BID with HDSS - We will discuss diabetic regimen on discharge Asthma COPD GEMA - Has been refusing bipap at night, denies home cpap use - Duonebs BID and proventil PRN, will discharge on this regimen - Will need sleep study and PFTs outpatient - breathing on RA - CXR today showed scattered infiltrates, but improvement from previous CXR Hypertension - Continue hydralazine and spironolactone, will adjust meds on discharge to home medications Stage III obesity Metabolic syndrome - Has GEMA and T2DM - Will discuss with patient weight loss on discharge - We will discuss with her possible bariatric surgery referral - BMI 51 DVT ppx : heparin GI ppx: protonix PT/OT: Evaluated Discharge Planning / SW: SNF placement Rodolfo Cooley MD Internal Medicine Resident, PGY-1 [facility]; [place], [place] 09/20/2022, 9:28 AM Attending Physician Statement I have discussed the care of Divina Amin with the resident team. I have examined the patient myself and taken ros and hpi , including pertinent history and exam findings, with the resident. I have reviewed the william elements of all parts of the encounter with the resident. I agree with the assessment, plan and orders as documented by the resident. Principal Problem: Necrotizing fasciitis (HCC) Active Problems: Metabolic acidosis Hypernatremia Hypokalemia VELMA (acute kidney injury) (HCC) Acute respiratory failure with hypoxia (HCC) Diabetic acidosis without coma (HCC) GEMA (obstructive sleep apnea) Septic shock (HCC) Bandemia Deborah gangrene Metabolic encephalopathy Open wound Ventilator dependent (HCC) Morbid obesity (HCC) Resolved Problems: * No resolved hospital problems. * Ready for discharge awaiting placement PATIENT REFUSES TO WEAR BIPAP [x] Risks and benefits explained to patient [x] Patient refuses to wear Bipap stating no. [x] Patient verbalizes understanding of information presented. Physical Therapy Facility/Department: [address] ORTHO/MED SURG Physical Therapy Daily Treatment Note Name: Divina Amin : 1960 Date of Service: 09/19/2022 Discharge Recommendations: Patient would benefit from continued therapy after discharge PT Equipment Recommendations Equipment Needed: No Patient Diagnosis(es): The primary encounter diagnosis was Necrotizing fasciitis (HCC). Diagnoses of Diabetic ketoacidosis without coma associated with other specified diabetes mellitus (HCC), Acute respiratory failure with hypoxia (HCC), and Newly recognized heart murmur were also pertinent to this visit. Past Medical History: has a past medical history of COPD (chronic obstructive pulmonary disease) (HCC), Diabetes (HCC), and Morbid obesity (HCC). Past Surgical History: has a past surgical history that includes Leg Surgery (Left, 09/03/2022); Leg Surgery (Left, 09/04/2022); and Leg Surgery (Left, 09/02/2022). Assessment Body Structures, Functions, Activity Limitations Requiring Skilled Therapeutic Intervention: Decreased functional mobility ;Decreased body mechanics;Decreased tolerance to work activity;Decreased strength;Decreased safe awareness;Decreased cognition;Decreased endurance;Decreased balance Assessment: Pt continues to require significant assistance to perform all functional mobility, pt sitting EOB ~5 minutes requiring consistent external support due to weakness and fatigue. Pt is high fall risk and would be unsafe to perform funtional mobility unassisted. Recommending continued skilled physical therapy to address these deficits to return pt to prior level of function. Therapy Prognosis: Fair Decision Making: Medium Complexity Requires PT Follow-Up: Yes Activity Tolerance Activity Tolerance: Patient limited by fatigue;Patient limited by endurance Plan Physcial Therapy Plan General Plan: (5-6x/week) Current Treatment Recommendations: Strengthening, Balance training, Functional mobility training, Transfer training, Endurance training, Gait training, Neuromuscular re-education, Cognitive reorientation, Safety education & training, Patient/Caregiver education & training, Therapeutic activities Safety Devices Type of Devices: Call light within reach, Nurse notified, Left in bed, All fall risk precautions in place, Patient at risk for falls (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) Restraints Restraints Initially in Place: No Restrictions Restrictions/Precautions Restrictions/Precautions: General Precautions, Up as Tolerated, Other (comment), Fall Risk (BMI 51.60) Required Braces or Orthoses?: No Position Activity Restriction Other position/activity restrictions: Up with assist, 09/02, 09/03, 09/04 DEBRIDEMENT LEFT THIGH, GROIN, BUTTOCK with JESSICA drain in place., intubated 09/02-09/14 , speciality [facility] bed Subjective General Patient assessed for rehabilitation services?: Yes Response To Previous Treatment: Patient with no complaints from previous session. Family / Caregiver Present: No Follows Commands: Within Functional Limits Subjective Subjective: RN and pt in agreement for PT treatment. Pt supine in bed upon PT arrival, pt pleasant and cooperative throughout session. Pt denying pain at time of session. Cognition Cognition Overall Cognitive Status: Exceptions Following Commands: Follows one step commands with repetition;Inconsistently follows commands Attention Span: Difficulty attending to directions Memory: Decreased recall of biographical Information;Decreased recall of precautions Safety Judgement: Decreased awareness of need for assistance;Decreased awareness of need for safety Problem Solving: Assistance required to generate solutions;Assistance required to implement solutions;Decreased awareness of errors Initiation: Requires cues for all Sequencing: Requires cues for all Objective Gross Assessment Sensation: Intact Bed mobility Rolling to Left: Moderate assistance Rolling to Right: Moderate assistance Supine to Sit: Maximum assistance;2 Person assistance Sit to Supine: Maximum assistance;2 Person assistance Scooting: Maximal assistance Bed Mobility Comments: Bed mobility performed on two attempts this date. Pt demonstrates significant sliding from luh bed on first attempt as patient continously leans trunk forward despite cueing for safety. Pt reports dizziness upon attempting seated balance on both attempts, subsiding ~2 minutes. Pt able to sit EOB for ~5 minutes with significant L trunk lean and high reliance on elevated HOB due to weakness. Pt encouraged to obtain full upright seated position to strength core while sitting unsupported. Pt able to sit for ~30 seconds increaments CGA. Transfers Comment: Unable to formally assess due to poor seated tolerance. Ambulation Comments: unable to safely perform this date More Ambulation?: No Stairs/Curb Stairs?: No Balance Posture: Fair Sitting - Static: Fair;- Sitting - Dynamic: Fair;- AM-PAC Score AM-PAC Inpatient Mobility Raw Score : 6 (09/19/221535) AM-PAC Inpatient T-Scale Score : 23.55 (09/19/221535) Mobility Inpatient CMS 0-100% Score: 100 (09/19/221535) Mobility Inpatient CMS G-Code Modifier : CN (09/19/221535) Goals Short Term Goals Time Frame for Short Term Goals: 14 visits Short Term Goal 1: Pt to be able to complete bed mobiltiy with Min A with use of bed rails Short Term Goal 2: Pt to stand from sitting with Mod A x 2 to progress transfers Short Term Goal 3: Pt to tolerate 30 min ther ex/ther act to improve general endurance and activity tolerance. Patient Goals Patient Goals : to return home Education Patient Education Education Given To: Patient Education Provided: Role of Therapy;Plan of Care;Precautions;Transfer Training;Family Education;Fall Prevention Strategies Education Method: Demonstration;Verbal Barriers to Learning: None Education Outcome: Verbalized understanding Therapy Time Individual Concurrent Group Co-treatment Time In 1339 Time Out 1401 Minutes 22 Timed Code Treatment Minutes: 15 Minutes Jocelyn Bob PT PATIENT REFUSES TO WEAR BIPAP [x] Risks and benefits explained to patient [x] Patient refuses to wear Bipap [x] Patient verbalizes understanding of information presented. PULMONARY & CRITICAL CARE MEDICINE PROGRESS NOTE Patient: Divina Amin Admit date: 09/02/2022 Primary Care Physician: CANDIDA RBOWN Consulting Physician: Lisset Downs MD CODE Status: Full Code LOS: 17 SUBJECTIVE CHIEF COMPLAINT/REASON FOR INITIAL CONSULT:Altered Mental Status BRIEF HOSPITAL COURSE: The patient is a 61 y.o. female with multiple comorbidities including hypertension, diabetes, morbid obesity, COPD/asthma admitted to the ICU with left groin necrotizing fasciitis. Work-up also showed diabetic ketoacidosis. Patient s/p multiple debridements of left groin/perineum. In ICU patient had a prolonged course with altered mental status/encephalopathy prolonged mechanical ventilation and ultimately mentation improved and she was successfully extubated. He was transferred out of ICU yesterday. INTERVAL HISTORY: 09/19/22 Overnight events noted chart reviewed, labs seen and medications seen. Patient is hemodynamically stable Tmax of 98.3 in last 24 hours heart rate is in the 80s. She is on room air and maintaining saturation 95% to 97%. Patient has not used CPAP/BiPAP since transfer out of ICU. She is very weak appetite is not good. Not doing much incentive spirometry. Had not used CPAP/BiPAP apparently did not want to use it in the ICU. She is on CPAP at home but not compliant with CPAP. She does not complain of shortness of breath at rest does not complain of cough or wheezing. Does not complain of chest pain or hemoptysis. According to patient she has history of asthma she did have history of smoking but not diagnosed with COPD and use albuterol as needed for asthma Chest x-ray today on 09/19/2022 shows bilateral pleural effusion likely small and pulmonary interstitial congestion. Chest x-ray finding is improved as compared to chest x-ray on 09/09/2022. CT scan of the chest on 09/09/2022 shows bilateral small pleural effusion. OBJECTIVE VITAL SIGNS: LAST: BP 125/68 Pulse 83 Temp 97.7 F (36.5 C) (Temporal) Resp 18 Ht 5' 2 (1.575 m) Wt 282 lb 1.6 oz (128 kg) SpO2 95% BMI 51.60 kg/m 8-24 HR RANGE: TEMP Temp Av.1 F (36.7 C) Min: 97.7 F (36.5 C) Max: 98.3 F (36.8 C) BP Systolic (24hrs), Av , Min:125 , Max:152 Diastolic (24hrs), Av, Min:61, Max:72 PULSE Pulse Av.2 Min: 74 Max: 88 RR Resp Av Min: 18 Max: 18 O2 SAT SpO2 Av.7 % Min: 90 % Max: 96 % OXYGEN DELIVERY No data recorded PHYSICAL EXAM: Physical Exam Constitutional: General: She is awake. Appearance: She is morbidly obese. She is ill-appearing. HENT: Head: Normocephalic and atraumatic. Eyes: General: No scleral icterus. Conjunctiva/sclera: Conjunctivae normal. Cardiovascular: Rate and Rhythm: Normal rate. Heart sounds: S1 normal and S2 normal. No murmur heard. Pulmonary: Effort: No accessory muscle usage or respiratory distress. Breath sounds: Decreased air movement present. Abdominal: General: Bowel sounds are normal. Palpations: Abdomen is soft. Tenderness: There is no abdominal tenderness. Musculoskeletal: Cervical back: Neck supple. Right lower leg: Edema present. Left lower leg: Edema present. Skin: Coloration: Skin is not pale. Findings: No rash. Neurological: General: No focal deficit present. DATA REVIEW CURRENT MEDICATIONS: Scheduled Meds: potassium chloride 40 mEq Oral BID pantoprazole 40 mg Oral QAM AC psyllium 1 packet Oral Daily lactobacillus 1 capsule Oral BID WC meclizine 12.5 mg Oral TID insulin glargine 20 Units SubCUTAneous BID miconazole Topical BID miconazole Topical BID insulin lispro 0-16 Units SubCUTAneous 4x Daily AC & HS spironolactone 25 mg Oral Daily ipratropium 0.5 mg-albuterol 2.5 mg 1 Dose Inhalation BID hydrALAZINE 25 mg Oral 3 times per day PARoxetine 10 mg Per NG tube Daily sodium chloride flush 5-40 mL IntraVENous 2 times per day heparin (porcine) 5,000 Units SubCUTAneous 3 times per day Continuous Infusions: dextrose INPUT/OUTPUT: In: - Out: 2205 [Urine:2150; Drains:55] Date 09/19/22 - 09/19/22 235 Shift [id number] 0669-8232 7647-5240 24 Hour Total INTAKE Shift Total(mL/kg) OUTPUT Urine(mL/kg/hr) 750(0.7) 750 Drains(mL/kg) 20(0.2) 20(0.2) Shift Total(mL/kg) 770(6) 770(6) Weight (kg) 128 128 128 128 LABORATORY RESULTS: BLOOD GASES: No results for input(s): POCPH, POCPCO2, POCPO2, POCHCO3, ICMX9MSM in the last 72 hours. COMPLETE BLOOD COUNTS: Recent Labs 09/17/22 0609/18/2240 09/19/22 0616 WBC 10.1 8.5 7.4 HGB 11.5* 11.0* 11.4* HCT 35.0* 33.8* 33.9* MCV 95.6 94.2 94.2 PLT 308 334 314 LYMPHOPCT 22* 23* 26 RBC 3.66* 3.59* 3.60* MCH 31.4 30.6 31.7 MCHC 32.9 32.5 33.6 RDW 12.3 12.3 12.7 C-REACTIVE PROTEIN: Recent Labs 09/17/2233 CRP 41.2* LACTATE DEHYDROGENASE: No results for input(s): LDH in the last 72 hours. BASIC METABOLIC PROFILE: Recent Labs 09/17/2233 09/18/22 0640 09/19/22 0616 NA 139 142 143 K 3.4* 3.2* 3.1* CL 102 105 102 CO2 24 24 26 BUN 24* 20 15 CREATININE 0.8 0.7 0.8 GLUCOSE 143* 129* 105* LIVER FUNCTION TESTS: No results for input(s): PROT, LABALBU, ALT, AST, GGT, ALKPHOS, BILITOT in the last 72 hours. COAGULATION PROFILE: No results for input(s): INR, PROTIME, APTT in the last 72 hours. D-DIMER: No results for input(s): DDIMER in the last 72 hours. LACTIC ACID: No results for input(s): LACTA in the last 72 hours. CARDIAC ENZYMES: No results for input(s): CKTOTAL, CKMB, CKMBINDEX, TROPONINI in the last 72 hours. Invalid input(s): TROPONIN, HSTROP BRAIN NATRIURETIC PEPTIDE/PRO-BRAIN NATRURETIC PEPTIDE: No results for input(s): BNP, PROBNP in the last 72 hours. TRIGLYCERIDES: No results for input(s): TRIG in the last 72 hours. MICROBIOLOGY RESULTS: URINE CULTURE: No components found for: CURINE BLOOD CULTURE: No components found for: CBLOOD, CFUNGUSBL SPUTUM CULTURE: No components found for: CSPUTUM No results for input(s): SPUTUM, SPECDESC, SPECIAL, CULTURE, STATUS, ORG, CDIFFTOXPCR, MPNEUM, MPNEUG, CAMPYLOBPCR, SALMONELLAPC, SHIGAPCR, SHIGELLAPCR, LACTOQL in the last 72 hours. Invalid input(s): CURINE, CBLOOD, CFUNGUSBL PATHOLOGY RESULTS: RADIOLOGY REPORTS: XR CHEST PORTABLE Final Result Scattered infiltrates. CT HEAD WO CONTRAST Final Result Study limited by motion artifact. No acute intracranial abnormality. Mild age-appropriate atrophy and small-vessel disease ischemic changes. Patient is intubated. CT CHEST ABDOMEN PELVIS WO CONTRAST Additional Contrast? None Final Result 1. Drainage catheters are noted in the left groin/perineum without drainable fluid collection or new soft tissue gas. 2. Anasarca. 3. New bilateral pleural effusions with patchy ground-glass opacities in the left upper lobe, likely infectious or inflammatory in etiology. 4. No new acute findings in the abdomen or pelvis. XR CHEST PORTABLE Final Result Patchy airspace opacities most pronounced in the right mid to lower lung view, may be related to mild pulmonary edema versus pneumonia. Mild bilateral pleural effusions. US RENAL COMPLETE Final Result 1. Simple midpole left renal cyst measuring 2.7 cm. 2. No hydronephrosis. XR CHEST PORTABLE Final Result Decreased pulmonary edema Otherwise, stable chest XR ABDOMEN FOR NG/OG/NE TUBE PLACEMENT Final Result OG tube in satisfactory position. XR CHEST (SINGLE VIEW FRONTAL) Final Result Endotracheal tube in satisfactory position. Right IJ line unchanged. Mild congestive failure, stable. XR CHEST PORTABLE Final Result Right IJ catheter with tip at the inferior SVC. No pneumothorax. Findings of interstitial pulmonary edema. ECHOCARDIOGRAM: No results found for this or any previous visit. ASSESSMENT AND PLAN PROBLEM LIST: Patient Active Problem List Diagnosis Necrotizing fasciitis (HCC) Metabolic acidosis Hypernatremia Hypokalemia VELMA (acute kidney injury) (HCC) Acute respiratory failure with hypoxia (HCC) Diabetic acidosis without coma (HCC) GEMA (obstructive sleep apnea) Septic shock (HCC) Bandemia Deborah gangrene Metabolic encephalopathy Open wound Ventilator dependent (HCC) Morbid obesity (HCC) ASSESSMENT: Left groin necrotizing fasciitis Diabetic ketoacidosis, resolved VELMA, resolved History of asthma/COPD History of smoking Morbid obesity Obstructive sleep apnea Essential hypertension PLAN: I personally interviewed/examined the patient; reviewed interval history, interpreted all available radiographic and laboratory data at the time of service. Patient is hemodynamically stable Currently on room air and maintaining saturation Discussed with the patient about using nocturnal CPAP/BiPAP. I discussed with the nursing staff. Use supplemental oxygen if needed, to keep oxygen saturation >90% Encourage incentive spirometry/Acapella discussed with patient Maintain bronchopulmonary hygiene Aspiration precautions currently denies dysphagia Continue bronchodilators on DuoNeb Antimicrobials reviewed; finished meropenem on 09/16/2022 for 2 weeks Monitor I/O, electrolytes with a goal of even/negative fluid balance DVT prophylaxis on heparin subcutaneous Physical/occupational therapy It was my pleasure to evaluate Divina Amin today. I would like to thank you for allowing me to participate in the care of this patient. Please feel free to call with any further questions or concerns. We will continue to follow. Kash Garcia MD Pulmonary and Critical Care Medicine 09/19/2022, 12:26 PM This note is created with the assistance of a speech recognition program. While intending to generate a document that actually reflects the content of the visit, the document can still have some errors including those of syntax and sound-alike substitutions which may escape proof reading. It such instances, actual meaning can be extrapolated by contextual diversion. Images from the original note were not included. [facility] Nurse Consult Note NAME: Divina Amin AGE: 61 y.o. GENDER: female : 1960 TODAY'S DATE: 09/19/2022 Subjective: Reason for WOCN Evaluation and Assessment: left perineal and left thigh necrotizing fasciitis s/p I&D and antibiotic therapy Divina Amin is a 61 y.o. female referred by: [x] Physician [] Nursing [] Other: Wound Identification: Wound Type: surgical Contributing Factors: diabetes, poor glucose control, chronic pressure, decreased mobility, shear force, obesity, decreased tissue oxygenation, and incontinence of stool Necrotizing fasciitis with surgical debridements 09/02/2022, 09/03/2022, and debridement and closure of the wound 09/04/2022. Bedside RN with concern left ischial area denuded skin not related to the original infection. Objective: BP 125/68 Pulse 83 Temp 97.7 F (36.5 C) (Temporal) Resp 18 Ht 5' 2 (1.575 m) Wt 282 lb 1.6 oz (128 kg) SpO2 95% BMI 51.60 kg/m Rohith Risk Score: Rohith Scale Score: 14 LABS CBC: Lab Results Component Value Date/Time WBC 7.4 09/19/2022 06:16 AM RBC 3.60 09/19/2022 06:16 AM HGB 11.4 09/19/2022 06:16 AM CMP: Albumin: Lab Results Component Value Date/Time LABALBU 2.3 09/10/2022 04:35 AM PT/INR: Lab Results Component Value Date/Time PROTIME 17.5 09/02/2022 01:35 AM INR 1.5 09/02/2022 01:35 AM HgBA1c: Lab Results Component Value Date/Time LABA1C 12.5 09/02/2022 06:03 AM PTT: No components found for: LABPTT Assessment: Fecal incontinence problematic. Left posterior thigh to the ischial areas of superficial, non-intact skin appear to be related to the necrotizing infection. No crepitus, slight induration medial to the remaining drain site, erythema present Sutures are intact. Soft, yellow, necrotic tissue present over the posterior aspect of the incision line. Left anterior thigh JESSICA drain does not consistently hold suction. Measurements: 09/19/22 1055 Closed/Suction Drain Left Buttock;Groin Bulb Placement Date/Time: 09/04/22 1306 Present on Admission/Arrival: No Inserted by: 10MM. FLAT DRAIN X [address] SHAFFER Tube Number: 2 Orientation: Left Location: Buttock;Groin Drain Tube Type: Bulb Tube Shape: Flat Drain Reservo... Site Description Reddened Dressing Status New dressing applied Drainage Appearance Purulent;Thin;Yellow;Beatty Drain Status To bulb suction Incision 09/02/22 Groin Left Date First Assessed: 09/02/22 Present on Hospital Admission: Yes Location: Groin Incision Location Orientation: Left Wound Image Dressing Status New dressing applied Dressing Change Due 09/19/22 Incision Cleansed Soap and water;Cleansed with saline Dressing/Treatment ABD pad Closure Sutures Margins Other (Comment) Incision Assessment Devitalized tissue;Erythema Drainage Amount Small Drainage Description Serosanguinous;Purulent;Thin;Chowan ow Odor Mild Kassidy-incision Assessment Denuded;Blanchable erythema;Maceration Response to treatment: Well tolerated by patient. Plan: Continue ABD pads BID as ordered by the surgeon Prompt incontinence care DriGo cloths to the torso folds Plan of Care: [x] Turn and reposition every 2 hours while in bed. [x] Float heels off of bed with pillows under calves. [] Heel protective boots (heel medix boots) at all times while in bed. [] Sacral foam dressing to sacrococcygeal area. Use skin barrier film prior to placement. Peel back dressing, inspect skin beneath, and re-secure every shift. Change every 3 days and as needed if loose or soiled. Discontinue sacral foam if repeatedly soiled by incontinence. [x] Apply zinc oxide cream twice daily and as needed after incontinent episodes. [x] Perform routine incontinence care with use of foam cleanser. [x] Use single layer moisture wicking underpad. [x] Use comfort glide system and wedges to reposition patient. [x] Keep the head of the bed below 30 degrees unless contraindicated. [] Pressure reducing chair cushion while up to chair. Reposition every hour while in chair and limit chair time to 2 hour intervals. [x] Encourage good nutritional intake and fluids. Consult aquarium specialist if needed. Specialty Bed Required : Yes [x] Low Air Loss [x] Pressure Redistribution [] Fluid Immersion [x] Bariatric [] Total Pressure Relief [] Other: Discharge Plan: Placement for patient upon discharge: [facility] Hospice Care: No Patient appropriate for Outpatient Wound Care Center: No: follow up to the Trauma Clinic Patient/Caregiver Teaching: [] Indicates understanding [] Needs reinforcement [] Unsuccessful [x] Verbal Understanding [] Demonstrated understanding [] No evidence of learning [] Refused teaching [] N/A Contact the Wound service station helper on-call Monday-Monday [phone] via [facility] by searching wound under groups and selecting the on-call clinician. Images from the original note were not included. [facility] Internal Medicine Teaching Residency Program Inpatient Daily Progress Note Patient: Divina Amin Date of : 1960 Acct: [id number] Room: 0248/0248-01 Admit date: 09/02/2022 Today's date: 09/19/22 Number of days in the hospital: 17 SUBJECTIVE Admitting Diagnosis: Necrotizing fasciitis (HCC) CC: AMS - Pt examined at bedside. Chart & results reviewed. - She seems down this morning. She does not have motivation to move out of bed - He pain is improving - Diarrhea has persisted Review of Systems Constitutional: Positive for fatigue. Negative for chills and fever. Respiratory: Negative for shortness of breath. Cardiovascular: Negative for chest pain. Gastrointestinal: Positive for diarrhea. Negative for abdominal pain. Skin: Positive for wound. Neurological: Positive for dizziness. Psychiatric/Behavioral: Negative for confusion. BRIEF HISTORY 61 y.o. female with past medical history significant for hypertension, type 2 diabetes mellitus, asthma, COPD, obesity who was initially admitted on 09/02/2022 with Necrotizing fasciitis (HCC) [M72.6] and presented with pain and redness and swelling involving the gluteal area and groin. Patient was initially alert and oriented x4 at outlying facility, she was noted to have an elevated WBC count and abscess in the left groin which showed subcutaneous gas concerning for necrotizing fascitis. Patient received 3 L of crystalloid fluids and a dose of vancomycin prior to transfer. In the ER patient was alert x0 VBG showed pH of 6.79, WBC count of 26, blood glucose in the 500s, beta hydroxybutyrate of 10, bicarb of less than 6. Patient was immediately evaluated by surgical team and another 2 L of fluids was given. Patient was initially started on DKA protocol in the emergency department. 1 amp of bicarb was given to her. In the ICU patient was intubated on 02/09 for mental status and extubated on 09/14. Underwent debridement on 0 09/03 s/p multiple debridements of necrotizing soft tissue infection of the left groin and perineum. S/p washout and closure 09/04 1 removed from the left thigh on 09/12 General surgery JESSICA #2 left thigh Nephrology was consulted for chronic kidney disease and left VELMA and was hyponatremic. Advised to continue 0.3 saline at 100 mm/h Continue Aldactone 25 daily. And monitor renal function. OBJECTIVE Vital Signs: BP 125/68 Pulse 83 Temp 97.7 F (36.5 C) (Temporal) Resp 18 Ht 5' 2 (1.575 m) Wt 282 lb 1.6 oz (128 kg) SpO2 95% BMI 51.60 kg/m Temp (24hrs), Av.1 F (36.7 C), Min:97.7 F (36.5 C), Max:98.3 F (36.8 C) In: - Out: 2204 [Urine:2150; Drains:55] Physical Exam Constitutional: General: She is not in acute distress. Appearance: She is obese. She is not ill-appearing. Cardiovascular: Rate and Rhythm: Normal rate and regular rhythm. Heart sounds: Murmur heard. Systolic murmur is present with a grade of 3/6. Pulmonary: Effort: No respiratory distress. Breath sounds: No stridor. No wheezing. Abdominal: Tenderness: There is no abdominal tenderness. Genitourinary: Comments: Dressings in place Musculoskeletal: Right lower leg: No edema. Left lower leg: No edema. Skin: Capillary Refill: Capillary refill takes less than 2 seconds. Comments: Early signs of stasis dermatitis Neurological: General: No focal deficit present. Medications: Scheduled Medications: potassium chloride 40 mEq Oral BID meclizine 12.5 mg Oral TID insulin glargine 20 Units SubCUTAneous BID miconazole Topical BID miconazole Topical BID insulin lispro 0-16 Units SubCUTAneous 4x Daily AC & HS spironolactone 25 mg Oral Daily ipratropium 0.5 mg-albuterol 2.5 mg 1 Dose Inhalation BID hydrALAZINE 25 mg Oral 3 times per day PARoxetine 10 mg Per NG tube Daily sodium chloride flush 5-40 mL IntraVENous 2 times per day heparin (porcine) 5,000 Units SubCUTAneous 3 times per day Continuous Infusions: dextrose PRN Medicationsondansetron, 4 mg, Q6H PRN oxyCODONE, 10 mg, Q6H PRN acetaminophen, 650 mg, Q4H PRN glucose, 4 tablet, PRN dextrose bolus, 125 mL, PRN Or dextrose bolus, 250 mL, PRN glucagon (rDNA), 1 mg, PRN dextrose, , Continuous PRN sodium chloride flush, 5-40 mL, PRN dextrose bolus, 125 mL, PRN polyethylene glycol, 17 g, Daily PRN albuterol, 2.5 mg, As Directed RT PRN Diagnostic Labs: CBC: Recent Labs 09/17/22 0633 09/18/22 0640 09/19/22 0616 WBC 10.1 8.5 7.4 RBC 3.66* 3.59* 3.60* HGB 11.5* 11.0* 11.4* HCT 35.0* 33.8* 33.9* MCV 95.6 94.2 94.2 RDW 12.3 12.3 12.7 PLT 308 334 314 BMP: Recent Labs 09/17/22 0633 09/18/22 0640 09/19/22 0616 NA 139 142 143 K 3.4* 3.2* 3.1* CL 102 105 102 CO2 24 24 26 BUN 24* 20 15 CREATININE 0.8 0.7 0.8 BNP: No results for input(s): BNP in the last 72 hours. PT/INR: No results for input(s): PROTIME, INR in the last 72 hours. APTT: No results for input(s): APTT in the last 72 hours. CARDIAC ENZYMES: No results for input(s): CKMB, CKMBINDEX, TROPONINI in the last 72 hours. Invalid input(s): CKTOTAL;3 FASTING LIPID PANEL: Lab Results Component Value Date TRIG 257 (H) 09/13/2022 LIVER PROFILE: No results for input(s): AST, ALT, ALB, BILIDIR, BILITOT, ALKPHOS in the last 72 hours. MICROBIOLOGY: Lab Results Component Value Date/Time CULTURE Chasity albicans/dubliniensis MODERATE GROWTH 09/11/2022 12:18 AM CULTURE NO NORMAL CITLALI 09/11/2022 12:18 AM Imaging: No results found. ASSESSMENT & PLAN ASSESSMENT / PLAN: Principal Problem: Necrotizing fasciitis (HCC) Active Problems: Metabolic acidosis Hypernatremia Hypokalemia VELMA (acute kidney injury) (HCC) Acute respiratory failure with hypoxia (HCC) Diabetic acidosis without coma (HCC) GEMA (obstructive sleep apnea) Septic shock (HCC) Bandemia Deborah gangrene Metabolic encephalopathy Open wound Ventilator dependent (HCC) Morbid obesity (HCC) Resolved Problems: * No resolved hospital problems. * Necrotizing fasciitis in the left groin: S/p multiple debridements of necrotic soft tissue infection of the left groin. S/p washout and closure 09/04. JESSICA #1 removed from left thigh on 09/12 by general surgery Continue to have TRINI #2 on left thigh Completed meropenem, fluconazole, or linezolid Acute diarrhea - 2-3 episodes of diarrhea of the past couple of nights - will add psyllium and lactobacillus - Loose stools without blood Metabolic acidosis due to DKA - resolved Bicarb 26 today, anion gap wnl VELMA SECONDARY to ischemic ATN complicated by vascular depletion. Creatinine baseline 1.1, peaked up to 3.3, now resolving Hypernatremia due to insensible losses from the skin and diarrheal losses. Monitor renal function. Recent Labs 09/17/22 0633 09/18/22 0640 09/19/22 0616 BUN 24* 20 15 CREATININE 0.8 0.7 0.8 DKA Type 2 diabetes mellitus - Had insulin drip per DKA protocol - glipizide 10mg BID and metformin 500mg ER at home - Lantus 20 BID with HDSS Asthma COPD GEMA - BIPap at night for GEMA - Duonebs and proventil PRN - breathing on RA - CXR today showed scattered infiltrates, but improvement from previous CXR Hypertension - Continue hydralazine and spirinolactone - Follow nephrology for recs on HTN meds Stage III obesity Metabolic syndrome - Has GEMA and T2DM - Will discuss with patient weight loss on discharge - We will discuss with her possible bariatric surgery referral - BMI 51 DVT ppx : heparin GI ppx: protonix PT/OT: Evaluated Discharge Planning / SW: SNF placement, we will complete peer to peer Rodolfo Cooley MD Internal Medicine Resident, PGY-1 [facility]; [place], [place] 09/19/2022, 11:38 AM Attending Physician Statement I have discussed the care of Divina Amin with the resident team. I have examined the patient myself and taken ros and hpi , including pertinent history and exam findings, with the resident. I have reviewed the william elements of all parts of the encounter with the resident. I agree with the assessment, plan and orders as documented by the resident. Principal Problem: Necrotizing fasciitis (HCC) Active Problems: Metabolic acidosis Hypernatremia Hypokalemia VELMA (acute kidney injury) (HCC) Acute respiratory failure with hypoxia (HCC) Diabetic acidosis without coma (HCC) GEMA (obstructive sleep apnea) Septic shock (HCC) Bandemia Deborah gangrene Metabolic encephalopathy Open wound Ventilator dependent (HCC) Morbid obesity (HCC) Resolved Problems: * No resolved hospital problems. * Dizziness improvig A/w placement Images from the original note were not included. [facility] Progress Note Divina Amin Date: 09/19/2022 LOS: 17 Reason for F/U : Necrotizing soft tissue infection Impression : Left perineal, thigh/gluteal necrotizing soft tissue infection status post surgical drainage 09/02/2022 Status post second look/I&D 09/03/2022 Status post irrigation and closure of left thigh and groin and buttock soft tissue defect 09/04/2022 Acute respiratory failure currently ventilator dependent Shock-resolved Diabetes mellitus with DKA currently on insulin drip Extreme obesity Acute kidney injury with unknown baseline creatinine COPD Recommendations: The patient completed antimicrobial therapy with meropenem for necrotizing soft tissue infection-End date 09/16/22 for a total of 14 days of treatment She was previously on linezolid which was discontinued 09/07/2022 Continue fluconazole which was added 09/07/2022 Continue local wound care Infection Control Recommendations: [place] precautions Discharge Planning: Estimated Length of IV antimicrobials:09/16/22 Patient will need Midline Catheter Insertion/ PICC line Insertion: No Patient will need: Home IV , Infusion Center, SNF, LTAC: No Patient will need outpatient wound care: Yes Medical Decision making / Summary of Stay: Divina Amin is a 61 y.o.-year-old female who was initially admitted on 09/02/2022. Divina is a morbidly obese diabetic female with also a history of asthma/COPD and is currently intubated and the history is obtained from the daughter who is at bedside. It is my understanding that Divina has had a history of boils in her left groin area which have previously been drained in the past. She has certainly not needed to be hospitalized for these and she had been complaining of a boil/infection in her left groin for about a week at home. The patient ended up being started on Bactrim about a day ago but the daughter after getting home from work in the late afternoon yesterday found that Divina was out of it and was having difficulty ambulating going to the bathroom. She ended up calling EMS and the patient was taken to an outlying facility in [place] where work-up showed some leukocytosis, left groin soft tissue infection with some soft tissue gas and the patient was hypotensive. The patient received fluid resuscitation and was transferred here where blood sugars were elevated and the patient was started on the DKA protocol. The patient became more confused and was seen by the general surgery team started on antimicrobial therapy with meropenem and linezolid due to history of a penicillin allergy. The patient had an obvious wound on the left perineum/upper thigh that was protruding necrotic and fluctuant. The patient was taken to the operating room this morning underwent incision and drainage of her left thigh/left groin and buttocks abscess/soft tissue infection and there was a sinclair necrotizing tissue appreciated during the surgery. The margins included the left major labia majora, left upper thigh, left inferior groin, left perineum/gluteal area. The patient is currently in the intensive care unit and I was asked to evaluate and help with antibiotic choice. The patient was taken to the operating room 09/03/2022 and underwent second look/debridement procedure of the left groin/thigh area. The patient was taken to the operating room 09/04/2022 and underwent irrigation and closure of the left thigh groin buttock and soft tissue defect after the patient was found to have a clean wound base and there was placement of 2 flat JESSICA drains with multilayer closure. Current Evaluation:09/19/2022 BP 137/62 Pulse 74 Temp 98.3 F (36.8 C) (Temporal) Resp 18 Ht 5' 2 (1.575 m) Wt 282 lb 1.6 oz (128 kg) SpO2 90% BMI 51.60 kg/m Temperature Range: Temp: 98.3 F (36.8 C) Temp Av.3 F (36.8 C) Min: 98.3 F (36.8 C) Max: 98.3 F (36.8 C) Patient transferred out of the ICU Afebrile VS stable HTN The patient was awake and alert upon evaluation. Sore throat resolved 09/19/2022 Medications reviewed: Monitor off antibiotics Diflucan completed on 09/12/22 09/16/22:Meropenem completed for necrotizing soft tissue infection Bumex and free water given for VELMA with hypernatremia per Nephrology. CT chest on 09/09/22 showed small to moderate bilateral pleural effusions with adjacent atelectasis and patchy opacities in the MICHAEL. Sputum culture on 09/11 is showing light growth yeast. FMS is in place for liquid stool No other acute issues noted. Discussed with RN Labs Reviewed 09/19/2022 BUN:64-->60-->61-->55-->15 Cr: 2.1-->1.7-->1.5-->1.5-->0.8 Na: 151-->148-->145-->143 WBC: 12.1-->13.9-->11.1-->12.5-->7.4 Hgb: 12.9-->12.2-->11.0-->11.6-->11.4 Plt: 235-->379-->214-->241-->351-->314 Cultures: Results Procedure Component Value Units Date/Time Culture, Respiratory [[id number]] (Abnormal) Collected: 09/11/22 0018 Order Status: Completed Specimen: Sputum Expectorated Updated: 09/13/22 1126 Specimen Description .EXPECTORATED SPUTUM Direct Exam >10, <25 NEUTROPHILS/LPF < 10 EPITHELIAL CELLS/LPF FEW YEAST Culture Chasity albicans/dubliniensis MODERATE GROWTH NO NORMAL CITLALI Review of Systems Constitutional: Negative. HENT: Negative for sore throat. Eyes: Negative. Respiratory: Negative. Cardiovascular: Negative. Gastrointestinal: Positive for diarrhea. Endocrine: Negative. Musculoskeletal: Negative. Skin: Surgical sites present Allergic/Immunologic: Negative. Neurological: Negative. Hematological: Negative. Psychiatric/Behavioral: Negative. All other systems reviewed and are negative. Physical Examination : Physical Exam Vitals and nursing note reviewed. Constitutional: Appearance: Normal appearance. She is well-developed. She is obese. Interventions: She is sedated. She is not intubated. HENT: Head: Normocephalic and atraumatic. Nose: Nose normal. Mouth/Throat: Mouth: Mucous membranes are moist. Eyes: Pupils: Pupils are equal, round, and reactive to light. Cardiovascular: Rate and Rhythm: Regular rhythm. Heart sounds: Normal heart sounds. Pulmonary: Effort: Pulmonary effort is normal. She is not intubated. Breath sounds: Normal breath sounds. Abdominal: General: Bowel sounds are normal. Palpations: Abdomen is soft. Comments: Surgical site Musculoskeletal: General: Normal range of motion. Cervical back: Neck supple. Skin: General: Skin is warm and dry. Capillary Refill: Capillary refill takes less than 2 seconds. Comments: There is a dressing in the perineal area which was not removed Neurological: General: No focal deficit present. Mental Status: She is alert and oriented to person, place, and time. Psychiatric: Mood and Affect: Mood normal. Behavior: Behavior normal. Thought Content: Thought content normal. Judgment: Judgment normal. Laboratory data: I have independently reviewed the followinglabs: CBC with Differential: Recent Labs 09/18/2240 09/19/22615 WBC 8.5 7.4 HGB 11.0* 11.4* HCT 33.8* 33.9* PLT 334 314 LYMPHOPCT 23* 26 MONOPCT 10 10 BMP: Recent Labs 09/18/2263909/19/22615 NA 142 143 K 3.2* 3.1* CL 105 102 CO2 24 26 BUN 20 15 CREATININE 0.7 0.8 MG 1.8 1.9 Hepatic Function Panel: No results for input(s): PROT, LABALBU, BILIDIR, IBILI, BILITOT, ALKPHOS, ALT, AST in the last 72 hours. No results found for: PROCAL Lab Results Component Value Date/Time CRP 41.2 09/17/2022 06:33 AM CRP 489.6 09/02/2022 01:35 AM No results found for: SEDRATE No results found for: DDIMER No results found for: FERRITIN No results found for: LDH No results found for: FIBRINOGEN No results found for requested labs within last 30 days. No results found for: COVID19 No results for input(s): VANCOTROUGH in the last 72 hours. Imaging Studies: RETROPERITONEAL ULTRASOUND OF THE KIDNEYS AND URINARY BLADDER 09/03/2022 IMPRESSION: 1. Simple midpole left renal cyst measuring 2.7 cm. 2. No hydronephrosis. Specimen Collected: 09/03/22 12:52 EDT Last Resulted: 09/03/22 13:03 EDT Cultures: Culture, Blood 1 [[id number]] Collected: 09/02/22619 Order Status: Completed Specimen: Blood Updated: 09/07/22724 Specimen Description .BLOOD Special Requests R FA 5ML Culture NO GROWTH 5 DAYS Culture, Blood 2 [[id number]] Collected: 07/21/23 0625 Order Status: Completed Specimen: Blood Updated: 09/07/22 0725 Specimen Description .BLOOD Special Requests R HAND 3ML Culture NO GROWTH 5 DAYS Culture, Blood 1 [[id number]] Collected: 09/02/22 0104 Order Status: Completed Specimen: Blood Updated: 09/07/22 0205 Specimen Description .BLOOD Special Requests RJUG, 10ML Culture NO GROWTH 5 DAYS MRSA DNA Probe, Nasal [[id number]] Collected: 09/02/22 0600 Order Status: Completed Specimen: Nasal Updated: 09/03/22 1028 Specimen Description .NASAL SWAB MRSA, DNA, Nasal NEGATIVE Comment: NEGATIVE: MRSA DNA not detected by nucleic acid amplification. Results should be used as an adjunct to nosocomial control efforts to identify patients needing enhanced precautions. The test is not intended to identify patients with staphylococcal infections. Results should not be used to guide or monitor treatment for MRSA infections. Culture, Urine [[id number]] Collected: 09/02/22 0138 Order Status: Completed Specimen: Urine, clean catch Updated: 09/03/22 0832 Specimen Description .CLEAN CATCH URINE Culture NO GROWTH Medications: potassium chloride 40 mEq Oral BID meclizine 12.5 mg Oral TID insulin glargine 20 Units SubCUTAneous BID miconazole Topical BID miconazole Topical BID insulin lispro 0-16 Units SubCUTAneous 4x Daily AC & HS spironolactone 25 mg Oral Daily ipratropium 0.5 mg-albuterol 2.5 mg 1 Dose Inhalation BID hydrALAZINE 25 mg Oral 3 times per day PARoxetine 10 mg Per NG tube Daily sodium chloride flush 5-40 mL IntraVENous 2 times per day heparin (porcine) 5,000 Units SubCUTAneous 3 times per day [facility] Kianna Sanches DPM [employer] messaging OFFICE: Thank you for allowing us to participate in the care of this patient. Please call with questions. This note is created with the assistance of a speech recognition program. While intending to generate a document that actually reflects the content of the visit, the document can still have some errors including those of syntax and sound a like substitutions which may escape proof reading. In such instances, actual meaning can be extrapolated by contextual diversion. Lyndon Garcia MD ATTESTATION: I have discussed the case, including pertinent history and exam findings with the medical office technologist. I have evaluated the History, physical findings and pictures of the patient and the william elements of the encounter have been performed by me. I have reviewed the laboratory data, other diagnostic studies and discussed them with the medical office technologist. I have updated the medical record where necessary. I agree with the assessment, plan and orders as documented by the medical office technologist and I have modified them as necessary. Elements of Medical Decision Making: Note: I have independently performed the steps listed below as part of the medical decision making and evaluation. Examined and discussed with patient. Labs, medications, radiologic studies were reviewed with personal review of films Large amounts of data were reviewed Discussed with nursing Staff, urban and regional planner Infection Control and Prevention measures reviewed All prior entries were reviewed Administer medications as ordered Prognosis: Fair Discharge planning reviewed Follow up as outpatient. Lyndon Garcia MD. PULMONARY & CRITICAL CARE MEDICINE PROGRESS NOTE Patient: Divina Amin Admit date: 09/02/2022 Primary Care Physician: CANDIDA BROWN Consulting Physician: Lisset Downs MD CODE Status: Full Code LOS: 16 SUBJECTIVE CHIEF COMPLAINT/REASON FOR INITIAL CONSULT:Altered Mental Status BRIEF HOSPITAL COURSE: The patient is a 61 y.o. female with multiple comorbidities including hypertension, diabetes, morbid obesity, COPD/asthma admitted to the ICU with left groin necrotizing fasciitis. Work-up also showed diabetic ketoacidosis. Patient s/p multiple debridements of left groin/perineum. He was transferred out of ICU yesterday. INTERVAL HISTORY: 09/18/22 Patient is currently on room air Finished meropenem No acute events ON OBJECTIVE VITAL SIGNS: LAST: BP (!) 149/63 Pulse 88 Temp 98.1 F (36.7 C) (Oral) Resp 17 Ht 5' 2 (1.575 m) Wt 282 lb 1.6 oz (128 kg) SpO2 95% BMI 51.60 kg/m 8-24 HR RANGE: TEMP Temp Av.1 F (36.7 C) Min: 98 F (36.7 C) Max: 98.1 F (36.7 C) BP Systolic (24hrs), Av , Min:125 , Max:149 Diastolic (24hrs), Av, Min:58, Max:70 PULSE Pulse Av.7 Min: 84 Max: 88 RR Resp Av Min: 17 Max: 17 O2 SAT SpO2 Av % Min: 95 % Max: 95 % OXYGEN DELIVERY No data recorded PHYSICAL EXAM: Physical Exam Constitutional: General: She is awake. Appearance: She is morbidly obese. She is ill-appearing. HENT: Head: Normocephalic and atraumatic. Eyes: General: No scleral icterus. Conjunctiva/sclera: Conjunctivae normal. Cardiovascular: Rate and Rhythm: Normal rate. Heart sounds: S1 normal and S2 normal. No murmur heard. Pulmonary: Effort: No accessory muscle usage or respiratory distress. Breath sounds: Decreased air movement present. Abdominal: General: Bowel sounds are normal. Palpations: Abdomen is soft. Tenderness: There is no abdominal tenderness. Musculoskeletal: Cervical back: Neck supple. Right lower leg: No edema. Left lower leg: No edema. Skin: Coloration: Skin is not pale. Findings: No rash. Neurological: General: No focal deficit present. DATA REVIEW CURRENT MEDICATIONS: Scheduled Meds: potassium bicarb-citric acid 40 mEq Oral BID meclizine 12.5 mg Oral TID insulin glargine 20 Units SubCUTAneous BID miconazole Topical BID miconazole Topical BID insulin lispro 0-16 Units SubCUTAneous 4x Daily AC & HS spironolactone 25 mg Oral Daily ipratropium 0.5 mg-albuterol 2.5 mg 1 Dose Inhalation BID hydrALAZINE 25 mg Oral 3 times per day PARoxetine 10 mg Per NG tube Daily sodium chloride flush 5-40 mL IntraVENous 2 times per day heparin (porcine) 5,000 Units SubCUTAneous 3 times per day Continuous Infusions: dextrose INPUT/OUTPUT: In: - Out: 3650 [Urine:3100; Drains:50] Date 09/18/22 - 09/18/22 235 Shift 4075-1662 0480-5239 1527-4903 24 Hour Total INTAKE Shift Total(mL/kg) OUTPUT Urine(mL/kg/hr) 400(0.4) 600 1000 Drains(mL/kg) 20(0.2) 20(0.2) Shift Total(mL/kg) 420(3.3) 600(4.7) 1020(8) Weight (kg) 128 128 128 128 LABORATORY RESULTS: BLOOD GASES: No results for input(s): POCPH, POCPCO2, POCPO2, POCHCO3, TBRD7ZTQ in the last 72 hours. COMPLETE BLOOD COUNTS: Recent Labs 09/16/22 0354 09/17/22 0633 09/18/22 0640 WBC 10.9 10.1 8.5 HGB 12.8 11.5* 11.0* HCT 39.3 35.0* 33.8* MCV 93.1 95.6 94.2 PLT 297 308 334 LYMPHOPCT 20* 22* 23* RBC 4.22 3.66* 3.59* MCH 30.3 31.4 30.6 MCHC 32.6 32.9 32.5 RDW 12.6 12.3 12.3 C-REACTIVE PROTEIN: Recent Labs 09/17/22 0633 CRP 41.2* LACTATE DEHYDROGENASE: No results for input(s): LDH in the last 72 hours. BASIC METABOLIC PROFILE: Recent Labs 09/16/22 0354 09/17/22 0633 09/18/22 0640 NA 147* 139 142 K 3.6* 3.4* 3.2* CL 105 102 105 CO2 29 24 24 BUN 33* 24* 20 CREATININE 1.1* 0.8 0.7 GLUCOSE 137* 143* 129* LIVER FUNCTION TESTS: No results for input(s): PROT, LABALBU, ALT, AST, GGT, ALKPHOS, BILITOT in the last 72 hours. COAGULATION PROFILE: No results for input(s): INR, PROTIME, APTT in the last 72 hours. D-DIMER: No results for input(s): DDIMER in the last 72 hours. LACTIC ACID: No results for input(s): LACTA in the last 72 hours. CARDIAC ENZYMES: No results for input(s): CKTOTAL, CKMB, CKMBINDEX, TROPONINI in the last 72 hours. Invalid input(s): TROPONIN, HSTROP BRAIN NATRIURETIC PEPTIDE/PRO-BRAIN NATRURETIC PEPTIDE: No results for input(s): BNP, PROBNP in the last 72 hours. TRIGLYCERIDES: No results for input(s): TRIG in the last 72 hours. MICROBIOLOGY RESULTS: URINE CULTURE: No components found for: CURINE BLOOD CULTURE: No components found for: CBLOOD, CFUNGUSBL SPUTUM CULTURE: No components found for: CSPUTUM No results for input(s): SPUTUM, SPECDESC, SPECIAL, CULTURE, STATUS, ORG, CDIFFTOXPCR, MPNEUM, MPNEUG, CAMPYLOBPCR, SALMONELLAPC, SHIGAPCR, SHIGELLAPCR, LACTOQL in the last 72 hours. Invalid input(s): CURINE, CBLOOD, CFUNGUSBL PATHOLOGY RESULTS: RADIOLOGY REPORTS: CT HEAD WO CONTRAST Final Result Study limited by motion artifact. No acute intracranial abnormality. Mild age-appropriate atrophy and small-vessel disease ischemic changes. Patient is intubated. CT CHEST ABDOMEN PELVIS WO CONTRAST Additional Contrast? None Final Result 1. Drainage catheters are noted in the left groin/perineum without drainable fluid collection or new soft tissue gas. 2. Anasarca. 3. New bilateral pleural effusions with patchy ground-glass opacities in the left upper lobe, likely infectious or inflammatory in etiology. 4. No new acute findings in the abdomen or pelvis. XR CHEST PORTABLE Final Result Patchy airspace opacities most pronounced in the right mid to lower lung view, may be related to mild pulmonary edema versus pneumonia. Mild bilateral pleural effusions. US RENAL COMPLETE Final Result 1. Simple midpole left renal cyst measuring 2.7 cm. 2. No hydronephrosis. XR CHEST PORTABLE Final Result Decreased pulmonary edema Otherwise, stable chest XR ABDOMEN FOR NG/OG/NE TUBE PLACEMENT Final Result OG tube in satisfactory position. XR CHEST (SINGLE VIEW FRONTAL) Final Result Endotracheal tube in satisfactory position. Right IJ line unchanged. Mild congestive failure, stable. XR CHEST PORTABLE Final Result Right IJ catheter with tip at the inferior SVC. No pneumothorax. Findings of interstitial pulmonary edema. ECHOCARDIOGRAM: No results found for this or any previous visit. ASSESSMENT AND PLAN PROBLEM LIST: Patient Active Problem List Diagnosis Necrotizing fasciitis (HCC) Metabolic acidosis Hypernatremia Hypokalemia VELMA (acute kidney injury) (HCC) Acute respiratory failure with hypoxia (HCC) Diabetic acidosis without coma (HCC) GEMA (obstructive sleep apnea) Septic shock (HCC) Bandemia Deborah gangrene Metabolic encephalopathy Open wound Ventilator dependent (HCC) Morbid obesity (HCC) ASSESSMENT: Left groin necrotizing fasciitis Diabetic ketoacidosis, resolved VELMA, resolved History of COPD/asthma Morbid obesity Obstructive sleep apnea Essential hypertension PLAN: I personally interviewed/examined the patient; reviewed interval history, interpreted all available radiographic and laboratory data at the time of service. Patient is hemodynamically stable Currently on room air Use supplemental oxygen if needed, to keep oxygen saturation >90% Continue nocturnal BiPAP for history of sleep apnea Encourage incentive spirometry/Acapella Maintain bronchopulmonary hygiene Aspiration precautions Continue bronchodilators Antimicrobials reviewed; continue meropenem Monitor I/O, electrolytes with a goal of even/negative fluid balance DVT and stress ulcer prophylaxis Physical/occupational therapy It was my pleasure to evaluate Divina Amin today. I would like to thank you for allowing me to participate in the care of this patient. Please feel free to call with any further questions or concerns. We will continue to follow. Pritesh Yañez MD Pulmonary and Critical Care Medicine 09/18/2022, 3:29 PM This note is created with the assistance of a speech recognition program. While intending to generate a document that actually reflects the content of the visit, the document can still have some errors including those of syntax and sound-alike substitutions which may escape proof reading. It such instances, actual meaning can be extrapolated by contextual diversion. Associated attestation - Dwain Porter MD - 09/18/2022 10:03 PM EDT Attending Physician Statement I have discussed the care of Divina Amin including pertinent history and exam findings with the resident. I have seen and examined the patient with the resident and the william elements of all parts of the encounter have been performed by me. The orders were discussed and the medication list was reviewed with the resident and is up to date. I agree with the problem list, assessment and plan as documented by resident. Dwain Porter MD Pulmonary & Critical Care Medicine Images from the original note were not included. [facility] Internal Medicine Teaching Residency Program Inpatient Daily Progress Note Patient: Divina Amin Date of : 1960 Acct: [id number] Room: 0248/0248-01 Admit date: 09/02/2022 Today's date: 09/18/22 Number of days in the hospital: 16 SUBJECTIVE Admitting Diagnosis: Necrotizing fasciitis (HCC) CC: AMS - Pt examined at bedside. Chart & results reviewed. - Has complaint of dizziness today - Pain is improving - Still waiting for placement - She is breathing better Review of Systems Constitutional: Negative for chills and fever. Respiratory: Negative for shortness of breath. Cardiovascular: Negative for chest pain. Gastrointestinal: Positive for diarrhea. Negative for abdominal pain. Skin: Positive for wound. Neurological: Positive for dizziness. Psychiatric/Behavioral: Negative for confusion. BRIEF HISTORY 61 y.o. female with past medical history significant for hypertension, type 2 diabetes mellitus, asthma, COPD, obesity who was initially admitted on 09/02/2022 with Necrotizing fasciitis (HCC) [M72.6] and presented with pain and redness and swelling involving the gluteal area and groin. Patient was initially alert and oriented x4 at outlying facility, she was noted to have an elevated WBC count and abscess in the left groin which showed subcutaneous gas concerning for necrotizing fascitis. Patient received 3 L of crystalloid fluids and a dose of vancomycin prior to transfer. In the ER patient was alert x0 VBG showed pH of 6.79, WBC count of 26, blood glucose in the 500s, beta hydroxybutyrate of 10, bicarb of less than 6. Patient was immediately evaluated by surgical team and another 2 L of fluids was given. Patient was initially started on DKA protocol in the emergency department. 1 amp of bicarb was given to her. In the ICU patient was intubated on 02/09 for mental status and extubated on 09/14. Underwent debridement on 0 09/03 s/p multiple debridements of necrotizing soft tissue infection of the left groin and perineum. S/p washout and closure 09/04 1 removed from the left thigh on 09/12 General surgery JESSICA #2 left thigh Nephrology was consulted for chronic kidney disease and left VELMA and was hyponatremic. Advised to continue 0.3 saline at 100 mm/h Continue Aldactone 25 daily. And monitor renal function. OBJECTIVE Vital Signs: BP (!) 142/58 Pulse 88 Temp 98.1 F (36.7 C) (Oral) Resp 17 Ht 5' 2 (1.575 m) Wt 282 lb 1.6 oz (128 kg) SpO2 95% BMI 51.60 kg/m Temp (24hrs), Av.1 F (36.7 C), Min:98 F (36.7 C), Max:98.1 F (36.7 C) In: - Out: 3050 [Urine:2500; Drains:50] Physical Exam Constitutional: General: She is not in acute distress. Appearance: She is obese. She is not ill-appearing. Cardiovascular: Rate and Rhythm: Normal rate and regular rhythm. Pulmonary: Effort: No respiratory distress. Breath sounds: No stridor. No wheezing. Abdominal: Tenderness: There is no abdominal tenderness. Skin: Capillary Refill: Capillary refill takes less than 2 seconds. Neurological: General: No focal deficit present. Medications: Scheduled Medications: potassium bicarb-citric acid 40 mEq Oral BID magnesium sulfate 2,000 mg IntraVENous Once insulin glargine 20 Units SubCUTAneous BID miconazole Topical BID miconazole Topical BID insulin lispro 0-16 Units SubCUTAneous 4x Daily AC & HS spironolactone 25 mg Oral Daily ipratropium 0.5 mg-albuterol 2.5 mg 1 Dose Inhalation BID hydrALAZINE 25 mg Oral 3 times per day PARoxetine 10 mg Per NG tube Daily sodium chloride flush 5-40 mL IntraVENous 2 times per day heparin (porcine) 5,000 Units SubCUTAneous 3 times per day Continuous Infusions: dextrose PRN Medicationsmeclizine, 12.5 mg, BID PRN ondansetron, 4 mg, Q6H PRN oxyCODONE, 10 mg, Q6H PRN acetaminophen, 650 mg, Q4H PRN fentanNYL, 50 mcg, Q2H PRN Or fentanNYL, 100 mcg, Q2H PRN glucose, 4 tablet, PRN dextrose bolus, 125 mL, PRN Or dextrose bolus, 250 mL, PRN glucagon (rDNA), 1 mg, PRN dextrose, , Continuous PRN sodium chloride flush, 5-40 mL, PRN dextrose bolus, 125 mL, PRN polyethylene glycol, 17 g, Daily PRN albuterol, 2.5 mg, As Directed RT PRN Diagnostic Labs: CBC: Recent Labs 09/16/22 0354 09/17/22 0633 09/18/22 0640 WBC 10.9 10.1 8.5 RBC 4.22 3.66* 3.59* HGB 12.8 11.5* 11.0* HCT 39.3 35.0* 33.8* MCV 93.1 95.6 94.2 RDW 12.6 12.3 12.3 PLT 297 308 334 BMP: Recent Labs 09/16/22 0354 09/17/22 0633 09/18/22 0640 NA 147* 139 142 K 3.6* 3.4* 3.2* CL 105 102 105 CO2 29 24 24 BUN 33* 24* 20 CREATININE 1.1* 0.8 0.7 BNP: No results for input(s): BNP in the last 72 hours. PT/INR: No results for input(s): PROTIME, INR in the last 72 hours. APTT: No results for input(s): APTT in the last 72 hours. CARDIAC ENZYMES: No results for input(s): CKMB, CKMBINDEX, TROPONINI in the last 72 hours. Invalid input(s): CKTOTAL;3 FASTING LIPID PANEL: Lab Results Component Value Date TRIG 257 (H) 09/13/2022 LIVER PROFILE: No results for input(s): AST, ALT, ALB, BILIDIR, BILITOT, ALKPHOS in the last 72 hours. MICROBIOLOGY: Lab Results Component Value Date/Time CULTURE Chasity albicans/dubliniensis MODERATE GROWTH 09/11/2022 12:18 AM CULTURE NO NORMAL CITLALI 09/11/2022 12:18 AM Imaging: No results found. ASSESSMENT & PLAN ASSESSMENT / PLAN: Principal Problem: Necrotizing fasciitis (HCC) Active Problems: Metabolic acidosis Hypernatremia Hypokalemia VELMA (acute kidney injury) (HCC) Acute respiratory failure with hypoxia (HCC) Diabetic acidosis without coma (HCC) GEMA (obstructive sleep apnea) Septic shock (HCC) Bandemia Deborah gangrene Metabolic encephalopathy Open wound Ventilator dependent (HCC) Morbid obesity (HCC) Resolved Problems: * No resolved hospital problems. * Necrotizing fasciitis in the left groin: S/p multiple debridements of necrotic soft tissue infection of the left groin. S/p washout and closure 09/04. JESSICA #1 removed from left thigh on 09/12 by general surgery Continue to have TRINI #2 on left thigh Course of meropenem 14 days Continue on fluconazole which was added on 07 September. Metabolic acidosis due to DKA - resolved Bicarb 24 today, anion wnl VELMA SECONDARY to ischemic ATN complicated by vascular depletion. Creatinine baseline 1.1, peaked up to 3.3, now resolving Hypernatremia due to insensible losses from the skin and diarrheal losses. Monitor renal function. Recent Labs 09/16/22 0354 09/17/22 0633 09/18/22 0640 BUN 33* 24* 20 CREATININE 1.1* 0.8 0.7 DKA Type 2 diabetes mellitus - Had insulin drip per DKA protocol - glipizide 10mg BID and metformin 500mg ER at home - Lantus 20 BID with HDSS Asthma COPD GEMA - BIPap at night for GEMA - Duonebs and proventil PRN - breathing on RA Hypertension - Continue hydralazine and spirinolactone - Follow nephrology for recs on HTN meds Stage III obesity Metabolic syndrome - Has GEMA and T2DM - Will discuss with patient weight loss on discharge - We will discuss with her possible bariatric surgery referral - BMI 51 DVT ppx : GI ppx: PT/OT: Discharge Planning / SW: Rodolfo Cooley MD Internal Medicine Resident, PGY-1 [facility]; [place], [place] 09/18/2022, 12:21 PM Attending Physician Statement I have discussed the care of Divina Amin with the resident team. I have examined the patient myself and taken ros and hpi , including pertinent history and exam findings, with the resident. I have reviewed the william elements of all parts of the encounter with the resident. I agree with the assessment, plan and orders as documented by the resident. Principal Problem: Necrotizing fasciitis (HCC) Active Problems: Metabolic acidosis Hypernatremia Hypokalemia VELMA (acute kidney injury) (HCC) Acute respiratory failure with hypoxia (HCC) Diabetic acidosis without coma (HCC) GEMA (obstructive sleep apnea) Septic shock (HCC) Bandemia Deborah gangrene Metabolic encephalopathy Open wound Ventilator dependent (HCC) Morbid obesity (HCC) Resolved Problems: * No resolved hospital problems. * Awaiting placement Complaining of new dizziness today, worse with head movement associated with mild nausea no vomiting try meclizine Hypokalemia-replacement ordered Images from the original note were not included. [facility] Progress Note Divina Amin Date: 09/18/2022 LOS: 16 Reason for F/U : Necrotizing soft tissue infection Impression : Left perineal, thigh/gluteal necrotizing soft tissue infection status post surgical drainage 09/02/2022 Status post second look/I&D 09/03/2022 Status post irrigation and closure of left thigh and groin and buttock soft tissue defect 09/04/2022 Acute respiratory failure currently ventilator dependent Shock-resolved Diabetes mellitus with DKA currently on insulin drip Extreme obesity Acute kidney injury with unknown baseline creatinine COPD Recommendations: The patient completed antimicrobial therapy with meropenem for necrotizing soft tissue infection-End date 09/16/22 for a total of 14 days of treatment She was previously on linezolid which was discontinued 09/07/2022 Completed fluconazole on 09/12/2022 Continue local wound care Infection Control Recommendations: [place] precautions Discharge Planning: Estimated Length of IV antimicrobials:09/16/22 Patient will need Midline Catheter Insertion/ PICC line Insertion: No Patient will need: Home IV , Infusion Center, SNF, LTAC: No Patient will need outpatient wound care: Yes Medical Decision making / Summary of Stay: Divina Amin is a 61 y.o.-year-old female who was initially admitted on 09/02/2022. Divina is a morbidly obese diabetic female with also a history of asthma/COPD and is currently intubated and the history is obtained from the daughter who is at bedside. It is my understanding that Divina has had a history of boils in her left groin area which have previously been drained in the past. She has certainly not needed to be hospitalized for these and she had been complaining of a boil/infection in her left groin for about a week at home. The patient ended up being started on Bactrim about a day ago but the daughter after getting home from work in the late afternoon yesterday found that Divina was out of it and was having difficulty ambulating going to the bathroom. She ended up calling EMS and the patient was taken to an outlying facility in [place] where work-up showed some leukocytosis, left groin soft tissue infection with some soft tissue gas and the patient was hypotensive. The patient received fluid resuscitation and was transferred here where blood sugars were elevated and the patient was started on the DKA protocol. The patient became more confused and was seen by the general surgery team started on antimicrobial therapy with meropenem and linezolid due to history of a penicillin allergy. The patient had an obvious wound on the left perineum/upper thigh that was protruding necrotic and fluctuant. The patient was taken to the operating room this morning underwent incision and drainage of her left thigh/left groin and buttocks abscess/soft tissue infection and there was a sinclair necrotizing tissue appreciated during the surgery. The margins included the left major labia majora, left upper thigh, left inferior groin, left perineum/gluteal area. The patient is currently in the intensive care unit and I was asked to evaluate and help with antibiotic choice. The patient was taken to the operating room 09/03/2022 and underwent second look/debridement procedure of the left groin/thigh area. The patient was taken to the operating room 09/04/2022 and underwent irrigation and closure of the left thigh groin buttock and soft tissue defect after the patient was found to have a clean wound base and there was placement of 2 flat JESSICA drains with multilayer closure. Current Evaluation:09/18/2022 BP (!) 142/58 Pulse 88 Temp 98.1 F (36.7 C) (Oral) Resp 18 Ht 5' 2 (1.575 m) Wt 282 lb 1.6 oz (128 kg) SpO2 95% BMI 51.60 kg/m Temperature Range: Temp: 98.1 F (36.7 C) Temp Av F (36.7 C) Min: 97.9 F (36.6 C) Max: 98.1 F (36.7 C) Patient transferred out of the ICU Afebrile VS stable HTN The patient was sleeping upon evaluation.. She has some residual sore throat s/p extubation on 09/14/22. Medications reviewed: Diflucan completed on 09/12/22 09/16/22:Meropenem completes for necrotizing soft tissue infection Bumex and free water given for VELMA with hypernatremia per Nephrology. CT chest on 09/09/22 showed small to moderate bilateral pleural effusions with adjacent atelectasis and patchy opacities in the MICHAEL. Sputum culture on 09/11 is showing light growth yeast. FMS is in place for liquid stool No other acute issues noted. Discussed with RN, daughter. The latter indicates patient is feeling better overall. Labs Reviewed 09/18/2022 BUN:64-->60-->61-->55-->24-->20 Cr: 2.1-->1.7-->1.5-->1.5-->0.8--0.7 Na: 151-->148-->145-->139-->142 WBC: 12.1-->13.9-->11.1-->12.5-->10.1- ->8.5 Hgb: 12.9-->12.2-->11.0-->11.6-->11.5- ->11 Plt: 235-->379-->214-->241-->351-->308 -->334 Cultures: Results Procedure Component Value Units Date/Time Culture, Respiratory [[id number]] (Abnormal) Collected: 09/11/22 0018 Order Status: Completed Specimen: Sputum Expectorated Updated: 09/13/22 1126 Specimen Description .EXPECTORATED SPUTUM Direct Exam >10, <25 NEUTROPHILS/LPF < 10 EPITHELIAL CELLS/LPF FEW YEAST Culture Chasity albicans/dubliniensis MODERATE GROWTH NO NORMAL CITLALI Review of Systems Constitutional: Negative. HENT: Positive for sore throat. Eyes: Negative. Respiratory: Negative. Cardiovascular: Negative. Gastrointestinal: Positive for diarrhea. Endocrine: Negative. Musculoskeletal: Negative. Skin: Surgical sites present Allergic/Immunologic: Negative. Neurological: Negative. Hematological: Negative. Psychiatric/Behavioral: Negative. All other systems reviewed and are negative. Physical Examination : Physical Exam Vitals and nursing note reviewed. Constitutional: Appearance: Normal appearance. She is well-developed. She is obese. Interventions: She is sedated. She is not intubated. HENT: Head: Normocephalic and atraumatic. Nose: Nose normal. Mouth/Throat: Mouth: Mucous membranes are moist. Eyes: Pupils: Pupils are equal, round, and reactive to light. Cardiovascular: Rate and Rhythm: Regular rhythm. Heart sounds: Normal heart sounds. Pulmonary: Effort: Pulmonary effort is normal. She is not intubated. Breath sounds: Normal breath sounds. Abdominal: General: Bowel sounds are normal. Palpations: Abdomen is soft. Comments: Surgical site Musculoskeletal: General: Normal range of motion. Cervical back: Neck supple. Skin: General: Skin is warm and dry. Capillary Refill: Capillary refill takes less than 2 seconds. Comments: There is a dressing in the perineal area which was not removed Neurological: General: No focal deficit present. Mental Status: She is alert and oriented to person, place, and time. Psychiatric: Mood and Affect: Mood normal. Behavior: Behavior normal. Thought Content: Thought content normal. Judgment: Judgment normal. Laboratory data: I have independently reviewed the followinglabs: CBC with Differential: Recent Labs 09/17/22 0633 09/18/22 0640 WBC 10.1 8.5 HGB 11.5* 11.0* HCT 35.0* 33.8* PLT 308 334 LYMPHOPCT 22* 23* MONOPCT 10 10 BMP: Recent Labs 09/17/22 0633 09/18/22 0640 NA 139 142 K 3.4* 3.2* CL 102 105 CO2 24 24 BUN 24* 20 CREATININE 0.8 0.7 MG 1.8 1.8 Hepatic Function Panel: No results for input(s): PROT, LABALBU, BILIDIR, IBILI, BILITOT, ALKPHOS, ALT, AST in the last 72 hours. No results found for: PROCAL Lab Results Component Value Date/Time CRP 41.2 09/17/2022 06:33 AM CRP 489.6 09/02/2022 01:35 AM No results found for: SEDRATE No results found for: DDIMER No results found for: FERRITIN No results found for: LDH No results found for: FIBRINOGEN No results found for requested labs within last 30 days. No results found for: COVID19 No results for input(s): VANCOTROUGH in the last 72 hours. Imaging Studies: RETROPERITONEAL ULTRASOUND OF THE KIDNEYS AND URINARY BLADDER 09/03/2022 IMPRESSION: 1. Simple midpole left renal cyst measuring 2.7 cm. 2. No hydronephrosis. Specimen Collected: 09/03/22 12:52 EDT Last Resulted: 09/03/22 13:03 EDT Cultures: Culture, Blood 1 [[id number]] Collected: 09/02/22 0620 Order Status: Completed Specimen: Blood Updated: 09/07/22 07 Specimen Description .BLOOD Special Requests R FA 5ML Culture NO GROWTH 5 DAYS Culture, Blood 2 [[id number]] Collected: 09/02/22 06 Order Status: Completed Specimen: Blood Updated: 09/07/22724 Specimen Description .BLOOD Special Requests R HAND 3ML Culture NO GROWTH 5 DAYS Culture, Blood 1 [[id number]] Collected: 09/02/22 0104 Order Status: Completed Specimen: Blood Updated: 09/07/22 0205 Specimen Description .BLOOD Special Requests RJUG, 10ML Culture NO GROWTH 5 DAYS MRSA DNA Probe, Nasal [[id number]] Collected: 09/02/22 0600 Order Status: Completed Specimen: Nasal Updated: 09/03/22 1028 Specimen Description .NASAL SWAB MRSA, DNA, Nasal NEGATIVE Comment: NEGATIVE: MRSA DNA not detected by nucleic acid amplification. Results should be used as an adjunct to nosocomial control efforts to identify patients needing enhanced precautions. The test is not intended to identify patients with staphylococcal infections. Results should not be used to guide or monitor treatment for MRSA infections. Culture, Urine [[id number]] Collected: 09/02/22 0138 Order Status: Completed Specimen: Urine, clean catch Updated: 09/03/22 0832 Specimen Description .CLEAN CATCH URINE Culture NO GROWTH Medications: potassium bicarb-citric acid 40 mEq Oral BID magnesium sulfate 2,000 mg IntraVENous Once insulin glargine 20 Units SubCUTAneous BID miconazole Topical BID miconazole Topical BID insulin lispro 0-16 Units SubCUTAneous 4x Daily AC & HS spironolactone 25 mg Oral Daily ipratropium 0.5 mg-albuterol 2.5 mg 1 Dose Inhalation BID hydrALAZINE 25 mg Oral 3 times per day PARoxetine 10 mg Per NG tube Daily sodium chloride flush 5-40 mL IntraVENous 2 times per day heparin (porcine) 5,000 Units SubCUTAneous 3 times per day [facility] Anali Ludwig MD [employer] OFFICE: ATTESTATION: I have discussed the case, including pertinent history and exam findings with the medical office technologist. I have evaluated the History, physical findings and pictures of the patient and the william elements of the encounter have been performed by me. I have reviewed the laboratory data, other diagnostic studies and discussed them with the medical office technologist. I have updated the medical record where necessary. I agree with the assessment, plan and orders as documented by the medical office technologist and I have modified them as necessary. Elements of Medical Decision Making: Note: I have independently performed the steps listed below as part of the medical decision making and evaluation. Examined and discussed with patient. Labs, medications, radiologic studies were reviewed with personal review of films Large amounts of data were reviewed Discussed with nursing Staff, urban and regional planner Infection Control and Prevention measures reviewed All prior entries were reviewed Administer medications as ordered Prognosis: Guarded Discharge planning reviewed Follow up as outpatient. Lyndon Garcia MD. PULMONARY & CRITICAL CARE MEDICINE PROGRESS NOTE Patient: Divina Amin Admit date: 09/02/2022 Primary Care Physician: CANDIDA BROWN Consulting Physician: Lisset Downs MD CODE Status: Full Code LOS: 15 SUBJECTIVE CHIEF COMPLAINT/REASON FOR INITIAL CONSULT:Altered Mental Status BRIEF HOSPITAL COURSE: The patient is a 61 y.o. female with multiple comorbidities including hypertension, diabetes, morbid obesity, COPD/asthma admitted to the ICU with left groin necrotizing fasciitis. Work-up also showed diabetic ketoacidosis. Patient s/p multiple debridements of left groin/perineum. He was transferred out of ICU yesterday. INTERVAL HISTORY: 09/17/22 Patient is currently on room air T-max is 99, white count is 10 point She is on meropenem VELMA has resolved No overnight issues reported OBJECTIVE VITAL SIGNS: LAST: BP (!) 118/51 Pulse 80 Temp 97.9 F (36.6 C) (Oral) Resp 18 Ht 5' 2 (1.575 m) Wt 282 lb 1.6 oz (128 kg) SpO2 95% BMI 51.60 kg/m 8-24 HR RANGE: TEMP Temp Av.5 F (36.9 C) Min: 97.9 F (36.6 C) Max: 99 F (37.2 C) BP Systolic (24hrs), Av , Min:118 , Max:138 Diastolic (24hrs), Av, Min:50, Max:79 PULSE Pulse Av.5 Min: 76 Max: 90 RR Resp Av.5 Min: 18 Max: 21 O2 SAT SpO2 Av.5 % Min: 94 % Max: 95 % OXYGEN DELIVERY O2 Flow Rate (L/min) Av L/min Min: 0 L/min Max: 0 L/min PHYSICAL EXAM: Physical Exam Constitutional: General: She is awake. Appearance: She is morbidly obese. She is ill-appearing. HENT: Head: Normocephalic and atraumatic. Eyes: General: No scleral icterus. Conjunctiva/sclera: Conjunctivae normal. Cardiovascular: Rate and Rhythm: Normal rate. Heart sounds: S1 normal and S2 normal. No murmur heard. Pulmonary: Effort: No accessory muscle usage or respiratory distress. Breath sounds: Decreased air movement present. Abdominal: General: Bowel sounds are normal. Palpations: Abdomen is soft. Tenderness: There is no abdominal tenderness. Musculoskeletal: Cervical back: Neck supple. Right lower leg: No edema. Left lower leg: No edema. Skin: Coloration: Skin is not pale. Findings: No rash. Neurological: General: No focal deficit present. DATA REVIEW CURRENT MEDICATIONS: Scheduled Meds: potassium bicarb-citric acid 40 mEq Oral BID miconazole Topical BID miconazole Topical BID insulin lispro 0-16 Units SubCUTAneous 4x Daily AC & HS spironolactone 25 mg Oral Daily ipratropium 0.5 mg-albuterol 2.5 mg 1 Dose Inhalation BID insulin glargine 30 Units SubCUTAneous BID hydrALAZINE 25 mg Oral 3 times per day PARoxetine 10 mg Per NG tube Daily sodium chloride flush 5-40 mL IntraVENous 2 times per day heparin (porcine) 5,000 Units SubCUTAneous 3 times per day Continuous Infusions: IV infusion builder 100 mL/hr at 09/17/22 0504 dextrose INPUT/OUTPUT: In: 2394.7 [P.O.:480; I.V.:1815] Out: 2089 [Urine:1645; Drains:35] Date 09/17/22 - 09/17/222358 Shift 5283-8956 8778-6259 1112-3427 24 Hour Total INTAKE Shift Total(mL/kg) OUTPUT Urine(mL/kg/hr) 600(0.6) 600 Drains(mL/kg) 5(0) 5(0) Stool(mL/kg) 10(0.1) 10(0.1) Shift Total(mL/kg) 615(4.8) 615(4.8) Weight (kg) 128 128 128 128 LABORATORY RESULTS: BLOOD GASES: No results for input(s): POCPH, POCPCO2, POCPO2, POCHCO3, EBJR1OHU in the last 72 hours. COMPLETE BLOOD COUNTS: Recent Labs 09/15/2252909/16/22 0354 09/17/22 0633 WBC 12.5* 10.9 10.1 HGB 11.6* 12.8 11.5* HCT 37.7 39.3 35.0* MCV 95.9 93.1 95.6 PLT 351 297 308 LYMPHOPCT 14* 20* 22* RBC 3.93* 4.22 3.66* MCH 29.5 30.3 31.4 MCHC 30.8 32.6 32.9 RDW 12.1 12.6 12.3 C-REACTIVE PROTEIN: No results for input(s): CRP in the last 72 hours. LACTATE DEHYDROGENASE: No results for input(s): LDH in the last 72 hours. BASIC METABOLIC PROFILE: Recent Labs 09/14/22180909/15/2252909/16/224 09/17/22 0633 NA 147* -- 147* 139 K 3.5* -- 3.6* 3.4* CL 105 -- 105 102 CO2 28 -- 29 24 BUN 55* -- 33* 24* CREATININE 1.5* -- 1.1* 0.8 GLUCOSE 176* -- 137* 143* PHOS -- 3.3 -- -- LIVER FUNCTION TESTS: No results for input(s): PROT, LABALBU, ALT, AST, GGT, ALKPHOS, BILITOT in the last 72 hours. COAGULATION PROFILE: No results for input(s): INR, PROTIME, APTT in the last 72 hours. D-DIMER: No results for input(s): DDIMER in the last 72 hours. LACTIC ACID: No results for input(s): LACTA in the last 72 hours. CARDIAC ENZYMES: No results for input(s): CKTOTAL, CKMB, CKMBINDEX, TROPONINI in the last 72 hours. Invalid input(s): TROPONIN, HSTROP BRAIN NATRIURETIC PEPTIDE/PRO-BRAIN NATRURETIC PEPTIDE: No results for input(s): BNP, PROBNP in the last 72 hours. TRIGLYCERIDES: No results for input(s): TRIG in the last 72 hours. MICROBIOLOGY RESULTS: URINE CULTURE: No components found for: CURINE BLOOD CULTURE: No components found for: CBLOOD, CFUNGUSBL SPUTUM CULTURE: No components found for: CSPUTUM No results for input(s): SPUTUM, SPECDESC, SPECIAL, CULTURE, STATUS, ORG, CDIFFTOXPCR, MPNEUM, MPNEUG, CAMPYLOBPCR, SALMONELLAPC, SHIGAPCR, SHIGELLAPCR, LACTOQL in the last 72 hours. Invalid input(s): CURINE, CBLOOD, CFUNGUSBL PATHOLOGY RESULTS: RADIOLOGY REPORTS: CT HEAD WO CONTRAST Final Result Study limited by motion artifact. No acute intracranial abnormality. Mild age-appropriate atrophy and small-vessel disease ischemic changes. Patient is intubated. CT CHEST ABDOMEN PELVIS WO CONTRAST Additional Contrast? None Final Result 1. Drainage catheters are noted in the left groin/perineum without drainable fluid collection or new soft tissue gas. 2. Anasarca. 3. New bilateral pleural effusions with patchy ground-glass opacities in the left upper lobe, likely infectious or inflammatory in etiology. 4. No new acute findings in the abdomen or pelvis. XR CHEST PORTABLE Final Result Patchy airspace opacities most pronounced in the right mid to lower lung view, may be related to mild pulmonary edema versus pneumonia. Mild bilateral pleural effusions. US RENAL COMPLETE Final Result 1. Simple midpole left renal cyst measuring 2.7 cm. 2. No hydronephrosis. XR CHEST PORTABLE Final Result Decreased pulmonary edema Otherwise, stable chest XR ABDOMEN FOR NG/OG/NE TUBE PLACEMENT Final Result OG tube in satisfactory position. XR CHEST (SINGLE VIEW FRONTAL) Final Result Endotracheal tube in satisfactory position. Right IJ line unchanged. Mild congestive failure, stable. XR CHEST PORTABLE Final Result Right IJ catheter with tip at the inferior SVC. No pneumothorax. Findings of interstitial pulmonary edema. ECHOCARDIOGRAM: No results found for this or any previous visit. ASSESSMENT AND PLAN PROBLEM LIST: Patient Active Problem List Diagnosis Necrotizing fasciitis (HCC) Metabolic acidosis Hypernatremia Hypokalemia VELMA (acute kidney injury) (HCC) Acute respiratory failure with hypoxia (HCC) Diabetic acidosis without coma (HCC) GEMA (obstructive sleep apnea) Septic shock (HCC) Bandemia Deborah gangrene Metabolic encephalopathy Open wound Ventilator dependent (HCC) Morbid obesity (HCC) ASSESSMENT: Left groin necrotizing fasciitis Diabetic ketoacidosis, resolved VELMA, resolved History of COPD/asthma Morbid obesity Obstructive sleep apnea Essential hypertension PLAN: I personally interviewed/examined the patient; reviewed interval history, interpreted all available radiographic and laboratory data at the time of service. Patient is hemodynamically stable Currently on room air Use supplemental oxygen if needed, to keep oxygen saturation >90% Continue nocturnal BiPAP for history of sleep apnea Encourage incentive spirometry/Acapella Maintain bronchopulmonary hygiene Aspiration precautions Continue bronchodilators Antimicrobials reviewed; continue meropenem Monitor I/O, electrolytes with a goal of even/negative fluid balance DVT and stress ulcer prophylaxis Physical/occupational therapy It was my pleasure to evaluate Divina Amin today. I would like to thank you for allowing me to participate in the care of this patient. Please feel free to call with any further questions or concerns. We will continue to follow. Dwain Porter MD Pulmonary and Critical Care Medicine 09/17/2022, 11:46 AM This note is created with the assistance of a speech recognition program. While intending to generate a document that actually reflects the content of the visit, the document can still have some errors including those of syntax and sound-alike substitutions which may escape proof reading. It such instances, actual meaning can be extrapolated by contextual diversion. Physical Therapy Facility/Department: [address] [facility]TH[facility] Physical Therapy Initial Assessment Name: Divina Amin : 1960 Date of Service: 09/17/2022 Chief Complaint Patient presents with Altered Mental Status Discharge Recommendations: Therapy recommended at discharge, Patient would benefit from continued therapy after discharge PT Equipment Recommendations Other: TBS based on progress Patient Diagnosis(es): The primary encounter diagnosis was Necrotizing fasciitis (HCC). A diagnosis of Diabetic ketoacidosis without coma associated with other specified diabetes mellitus (HCC) was also pertinent to this visit. Past Medical History: has a past medical history of COPD (chronic obstructive pulmonary disease) (HCC), Diabetes (HCC), and Morbid obesity (HCC). Past Surgical History: has a past surgical history that includes Leg Surgery (Left, 09/03/2022); Leg Surgery (Left, 09/04/2022); and Leg Surgery (Left, 09/02/2022). Assessment Body Structures, Functions, Activity Limitations Requiring Skilled Therapeutic Intervention: Decreased functional mobility ;Decreased body mechanics;Decreased tolerance to work activity;Decreased strength;Decreased safe awareness;Decreased cognition;Decreased endurance;Decreased balance Assessment: Pt presents with general weakness and deconditioning with prolonged bed rest and ICU course Pt demonstrates LE weakness unable to completed full bilateral LE AROM in supine, poor sitting balance and trunk control with pt leaning to rigth require max assist x 2 with fading assist needed to sit Pt educated on use of UE's to support self, constant cues and instruction needed to stay on task, transfers and standing activity limited due to fair- sitting static balance , fatigue, dizziness and cognitive deficits, pt is not safe to attempt transfers at this time. Pt will continue to benefit from PT intervention to progress activity and promote functional independence. Therapy Prognosis: Good;Guarded Decision Making: High Complexity Clinical Presentation: unpredictable Requires PT Follow-Up: Yes Activity Tolerance Activity Tolerance: Patient tolerated evaluation without incident Activity Tolerance Comments: Pt with noted dizziness with position change, weakness limiting out of bed activity, equipment needs to include gustavo lift and luh chair in room Plan Physcial Therapy Plan General Plan: 6-7 times per week Current Treatment Recommendations: Strengthening, Balance training, Functional mobility training, Transfer training, Endurance training, Gait training, Neuromuscular re-education, Cognitive reorientation, Safety education & training, Patient/Caregiver education & training, Therapeutic activities Safety Devices Type of Devices: Call light within reach, Nurse notified, Left in bed, All fall risk precautions in place, Patient at risk for falls Restraints Restraints Initially in Place: No Restrictions Restrictions/Precautions Restrictions/Precautions: General Precautions, Up as Tolerated, Other (comment), Fall Risk (BMI 51.60) Required Braces or Orthoses?: No Position Activity Restriction Other position/activity restrictions: Up with assist, 09/02, 09/03, 09/04 DEBRIDEMENT LEFT THIGH, GROIN, BUTTOCK with JESSICA drain in place., intubated 09/02-09/14 , speciality [facility] bed Subjective General Chart Reviewed: Yes Patient assessed for rehabilitation services?: Yes Additional Pertinent Hx: In the ICU patient was intubated on 02/09 for mental status and extubated on 09/14. Underwent debridement on 0 09/03 s/p multiple debridements of necrotizing soft tissue infection of the left groin and perineum. S/p washout and closure 09/04 1 removed from the left thigh on 09/12 General surgery JESSICA #2 left thigh Response To Previous Treatment: Not applicable Family / Caregiver Present: No Follows Commands: Within Functional Limits Other (Comment): Pt awake and alert in agreement with PT intervention, okay per RN to see General Comment Comments: Pt report prior to admission pt was independent with all self care and mobility Subjective Subjective: no complaint of pian during PT intervention, Pt report eager to get up Social/Functional History Social/Functional History Lives With: Daughter (and grand children) Type of Home: Trailer Home Layout: One level Home Access: Stairs to enter with rails Entrance Stairs - Number of Steps: 5 Entrance Stairs - Rails: Both Bathroom Shower/Tub: Tub/Shower unit Bathroom Toilet: Standard Home Equipment: Walker, rolling, Wheelchair-manual ADL Assistance: Needs assistance Bath: Independent Dressing: Independent Grooming: Independent Feeding: Independent Toileting: Independent Homemaking Assistance: Independent Homemaking Responsibilities: Yes Meal Prep Responsibility: Secondary Laundry Responsibility: Secondary Cleaning Responsibility: Secondary Bill Paying/Finance Responsibility: Primary Dependent Care Responsibility: No Health Care Management: Primary Ambulation Assistance: Independent Transfer Assistance: Independent Active Senior Controls Engineer: No Patient's Senior Controls Engineer Info: daughter Mode of Transportation: SUV Occupation: On disability 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 Leisure & Hobbies: TV, music Additional Comments: Pt report prior to hospitalization she was independent in all self care and mobility Vision/Hearing Vision Vision: Impaired Vision Exceptions: Wears glasses for distance Hearing Hearing: Within functional limits Cognition Orientation Overall Orientation Status: Impaired Orientation Level: Oriented to person;Oriented to situation;Disoriented to time;Disoriented to place Cognition Overall Cognitive Status: Exceptions Arousal/Alertness: Inconsistent responses to stimuli Following Commands: Follows one step commands with repetition;Inconsistently follows commands Attention Span: Difficulty attending to directions Memory: Decreased recall of biographical Information;Decreased recall of precautions;Decreased recall of recent events Safety Judgement: Decreased awareness of need for assistance;Decreased awareness of need for safety Problem Solving: Assistance required to generate solutions;Assistance required to implement solutions;Decreased awareness of errors Insights: Decreased awareness of deficits Initiation: Requires cues for all Sequencing: Requires cues for all Cognition Comment: Pt able to follow commands with redirection, decreased awareness of deficits. Objective Pulse: 90 Heart Rate Source: Monitor BP: (!) 138/50 BP Location: Left lower arm BP Method: Automatic Patient Position: Semi fowlers MAP (Calculated): 79 Respirations: 21 SpO2: 94 % O2 Device: None (Room air) Observation/Palpation Posture: Fair Observation: Pt demonstrate fair sitting balance and tolerance with weakness and complaint of dizziness , pt tends to leand left in sitting Scar: surgical incision with dressing and JESSICA drain in place Gross Assessment AROM: Generally decreased, functional PROM: Generally decreased, functional Strength: Generally decreased, functional Coordination: Generally decreased, functional Tone: Normal Sensation: Intact AROM RLE (degrees) RLE AROM: Exceptions AROM LLE (degrees) LLE AROM : WNL AROM RUE (degrees) RUE AROM : WNL AROM LUE (degrees) LUE AROM : WNL Strength RLE Strength RLE: WFL Strength LLE Strength LLE: WFL Strength RUE Strength RUE: WFL Strength LUE Strength LUE: WFL Strength Other Other: Pt demonstrates general weakness and deconditioning Bed mobility Bridging: Moderate assistance Rolling to Left: Moderate assistance Rolling to Right: Moderate assistance Supine to Sit: 2 Person assistance;Moderate assistance Sit to Supine: 2 Person assistance;Moderate assistance Transfers Sit to Stand: Unable to assess (unsafe to stand at this time due to weakness, and instability in sitting) Stand to Sit: Unable to assess Bed to Chair: Dependent/Total Ambulation Assistance: Unable to assess Comments: Unable to assess gait, pt report independent mobilty at prior level without AD Balance Posture: Fair Sitting - Static: Fair Sitting - Dynamic: Fair Comments: Pt able to sit with support x 8 min fading assist from max x 2 to min A x 1, pt educated on safety, fall risk and self initiation and ROM to progress strength, balance and activity tolerance Functional Reach Test Fall Risk (Score of <10 inches is fall risk): Yes Exercise Treatment: pt sitting with fading assist max x 2 to min x 1 with education and training on trunk control, hand placement and bodymechanics, pt educated on safety, fall risk and self initiation and ROM to progress strength, balance and activity tolerance. pt instructed in and completed bilateral upper and LE A/AA/PROM in all planes of motion x 8 to 10 resp each. AM-PAC Score [facility] Inpatient Mobility Raw Score : 7 (09/17/221043) [facility] Inpatient T-Scale Score : 26.42 (09/17/221043) Mobility Inpatient CMS 0-100% Score: 92.36 (09/17/221043) Mobility Inpatient [facility] G-Code Modifier : CM (09/17/221043) Goals Short Term Goals Time Frame for Short Term Goals: 14 visits Short Term Goal 1: Pt to be able to complete bed mobiltiy with Min A with use of bed rails Short Term Goal 2: Pt to stand from sitting with Mod A x 2 to progress transfers Short Term Goal 3: Pt to tolerate 30 min ther ex/ther act to improve general endurance and activity tolerance. Patient Goals Patient Goals : to return home Education Patient Education Education Given To: Patient Education Provided: Role of Therapy;Plan of Care;Precautions;Transfer Training;Equipment;Family Education;Fall Prevention Strategies Education Provided Comments: pt educated on safety, fall risk and self initiation and ROM to progress strength, balance and activity tolerance Education Method: Demonstration;Verbal Barriers to Learning: Cognition Education Outcome: Verbalized understanding Therapy Time Individual Concurrent Group Co-treatment Time In 0815 Time Out 0920 Minutes 65 Timed Code Treatment Minutes: 40 Minutes Megan Paris PT, DPT Images from the original note were not included. [facility] Progress Note Divina Amin Date: 09/17/2022 LOS: 15 Reason for F/U : Necrotizing soft tissue infection Impression : Left perineal, thigh/gluteal necrotizing soft tissue infection status post surgical drainage 09/02/2022 Status post second look/I&D 09/03/2022 Status post irrigation and closure of left thigh and groin and buttock soft tissue defect 09/04/2022 Acute respiratory failure currently ventilator dependent Shock-resolved Diabetes mellitus with DKA currently on insulin drip Extreme obesity Acute kidney injury with unknown baseline creatinine COPD Recommendations: The patient completed antimicrobial therapy with meropenem for necrotizing soft tissue infection-End date 09/16/22 for a total of 14 days of treatment She was previously on linezolid which was discontinued 09/07/2022 Continue fluconazole which was added 09/07/2022 Continue local wound care Infection Control Recommendations: [place] precautions Discharge Planning: Estimated Length of IV antimicrobials:09/16/22 Patient will need Midline Catheter Insertion/ PICC line Insertion: No Patient will need: Home IV , Infusion Center, SNF, LTAC: No Patient will need outpatient wound care: Yes Medical Decision making / Summary of Stay: Divina Amin is a 61 y.o.-year-old female who was initially admitted on 09/02/2022. Divina is a morbidly obese diabetic female with also a history of asthma/COPD and is currently intubated and the history is obtained from the daughter who is at bedside. It is my understanding that Divina has had a history of boils in her left groin area which have previously been drained in the past. She has certainly not needed to be hospitalized for these and she had been complaining of a boil/infection in her left groin for about a week at home. The patient ended up being started on Bactrim about a day ago but the daughter after getting home from work in the late afternoon yesterday found that Divina was out of it and was having difficulty ambulating going to the bathroom. She ended up calling EMS and the patient was taken to an outlying facility in [place] where work-up showed some leukocytosis, left groin soft tissue infection with some soft tissue gas and the patient was hypotensive. The patient received fluid resuscitation and was transferred here where blood sugars were elevated and the patient was started on the DKA protocol. The patient became more confused and was seen by the general surgery team started on antimicrobial therapy with meropenem and linezolid due to history of a penicillin allergy. The patient had an obvious wound on the left perineum/upper thigh that was protruding necrotic and fluctuant. The patient was taken to the operating room this morning underwent incision and drainage of her left thigh/left groin and buttocks abscess/soft tissue infection and there was a sinclair necrotizing tissue appreciated during the surgery. The margins included the left major labia majora, left upper thigh, left inferior groin, left perineum/gluteal area. The patient is currently in the intensive care unit and I was asked to evaluate and help with antibiotic choice. The patient was taken to the operating room 09/03/2022 and underwent second look/debridement procedure of the left groin/thigh area. The patient was taken to the operating room 09/04/2022 and underwent irrigation and closure of the left thigh groin buttock and soft tissue defect after the patient was found to have a clean wound base and there was placement of 2 flat JESSICA drains with multilayer closure. Current Evaluation:09/17/2022 BP 123/70 Pulse 84 Temp 98 F (36.7 C) (Oral) Resp 19 Ht 5' 2 (1.575 m) Wt 282 lb 1.6 oz (128 kg) SpO2 96% BMI 51.60 kg/m Temperature Range: Temp: 98 F (36.7 C) Temp Av.7 F (37.1 C) Min: 98 F (36.7 C) Max: 99 F (37.2 C) Patient transferred out of the ICU Afebrile VS stable HTN The patient was awake and alert upon evaluation. She has some residual sore throat s/p extubation on 09/14/22. Medications reviewed: Diflucan completed on 09/12/22 09/16/22:Meropenem completes for necrotizing soft tissue infection Bumex and free water given for VELMA with hypernatremia per Nephrology. CT chest on 09/09/22 showed small to moderate bilateral pleural effusions with adjacent atelectasis and patchy opacities in the MICHAEL. Sputum culture on 09/11 is showing light growth yeast. FMS is in place for liquid stool No other acute issues noted. Discussed with RN Labs Reviewed 09/17/2022 BUN:64-->60-->61-->55-->24 Cr: 2.1-->1.7-->1.5-->1.5-->0.8 Na: 151-->148-->145-->139 WBC: 12.1-->13.9-->11.1-->12.5-->10.1 Hgb: 12.9-->12.2-->11.0-->11.6-->11.5 Plt: 235-->379-->214-->241-->351-->308 Cultures: Results Procedure Component Value Units Date/Time Culture, Respiratory [[id number]] (Abnormal) Collected: 09/11/22 0018 Order Status: Completed Specimen: Sputum Expectorated Updated: 09/13/22 1126 Specimen Description .EXPECTORATED SPUTUM Direct Exam >10, <25 NEUTROPHILS/LPF < 10 EPITHELIAL CELLS/LPF FEW YEAST Culture Chaisty albicans/dubliniensis MODERATE GROWTH NO NORMAL CITLALI Review of Systems Constitutional: Negative. HENT: Positive for sore throat. Eyes: Negative. Respiratory: Negative. Cardiovascular: Negative. Gastrointestinal: Positive for diarrhea. Endocrine: Negative. Musculoskeletal: Negative. Skin: Surgical sites present Allergic/Immunologic: Negative. Neurological: Negative. Hematological: Negative. Psychiatric/Behavioral: Negative. All other systems reviewed and are negative. Physical Examination : Physical Exam Vitals and nursing note reviewed. Constitutional: Appearance: Normal appearance. She is well-developed. She is obese. Interventions: She is sedated. She is not intubated. HENT: Head: Normocephalic and atraumatic. Nose: Nose normal. Mouth/Throat: Mouth: Mucous membranes are moist. Eyes: Pupils: Pupils are equal, round, and reactive to light. Cardiovascular: Rate and Rhythm: Regular rhythm. Heart sounds: Normal heart sounds. Pulmonary: Effort: Pulmonary effort is normal. She is not intubated. Breath sounds: Normal breath sounds. Abdominal: General: Bowel sounds are normal. Palpations: Abdomen is soft. Comments: Surgical site Musculoskeletal: General: Normal range of motion. Cervical back: Neck supple. Skin: General: Skin is warm and dry. Capillary Refill: Capillary refill takes less than 2 seconds. Comments: There is a dressing in the perineal area which was not removed Neurological: General: No focal deficit present. Mental Status: She is alert and oriented to person, place, and time. Psychiatric: Mood and Affect: Mood normal. Behavior: Behavior normal. Thought Content: Thought content normal. Judgment: Judgment normal. Laboratory data: I have independently reviewed the followinglabs: CBC with Differential: Recent Labs 09/16/22 0354 09/17/22 0633 WBC 10.9 10.1 HGB 12.8 11.5* HCT 39.3 35.0* PLT 297 308 LYMPHOPCT 20* 22* MONOPCT 9 10 BMP: Recent Labs 09/15/22 0530 09/16/22 0354 09/17/22 0633 NA -- 147* 139 K -- 3.6* 3.4* CL -- 105 102 CO2 -- 29 24 BUN -- 33* 24* CREATININE -- 1.1* 0.8 MG 2.1 -- 1.8 Hepatic Function Panel: No results for input(s): PROT, LABALBU, BILIDIR, IBILI, BILITOT, ALKPHOS, ALT, AST in the last 72 hours. No results found for: PROCAL Lab Results Component Value Date/Time CRP 489.6 09/02/2022 01:35 AM No results found for: SEDRATE No results found for: DDIMER No results found for: FERRITIN No results found for: LDH No results found for: FIBRINOGEN No results found for requested labs within last 30 days. No results found for: COVID19 No results for input(s): VANCOTROUGH in the last 72 hours. Imaging Studies: RETROPERITONEAL ULTRASOUND OF THE KIDNEYS AND URINARY BLADDER 09/03/2022 IMPRESSION: 1. Simple midpole left renal cyst measuring 2.7 cm. 2. No hydronephrosis. Specimen Collected: 09/03/22 12:52 EDT Last Resulted: 09/03/22 13:03 EDT Cultures: Culture, Blood 1 [[id number]] Collected: 09/02/22619 Order Status: Completed Specimen: Blood Updated: 09/07/22724 Specimen Description .BLOOD Special Requests R FA 5ML Culture NO GROWTH 5 DAYS Culture, Blood 2 [[id number]] Collected: 09/02/22624 Order Status: Completed Specimen: Blood Updated: 09/07/22724 Specimen Description .BLOOD Special Requests R HAND 3ML Culture NO GROWTH 5 DAYS Culture, Blood 1 [[id number]] Collected: 09/02/22 0104 Order Status: Completed Specimen: Blood Updated: 09/07/22 020 Specimen Description .BLOOD Special Requests RJUG, 10ML Culture NO GROWTH 5 DAYS MRSA DNA Probe, Nasal [[id number]] Collected: 09/02/22 0600 Order Status: Completed Specimen: Nasal Updated: 09/03/22 1028 Specimen Description .NASAL SWAB MRSA, DNA, Nasal NEGATIVE Comment: NEGATIVE: MRSA DNA not detected by nucleic acid amplification. Results should be used as an adjunct to nosocomial control efforts to identify patients needing enhanced precautions. The test is not intended to identify patients with staphylococcal infections. Results should not be used to guide or monitor treatment for MRSA infections. Culture, Urine [[id number]] Collected: 09/02/22 0138 Order Status: Completed Specimen: Urine, clean catch Updated: 09/03/22 0832 Specimen Description .CLEAN CATCH URINE Culture NO GROWTH Medications: potassium bicarb-citric acid 40 mEq Oral BID miconazole Topical BID miconazole Topical BID insulin lispro 0-16 Units SubCUTAneous 4x Daily AC & HS spironolactone 25 mg Oral Daily ipratropium 0.5 mg-albuterol 2.5 mg 1 Dose Inhalation BID insulin glargine 30 Units SubCUTAneous BID hydrALAZINE 25 mg Oral 3 times per day PARoxetine 10 mg Per NG tube Daily sodium chloride flush 5-40 mL IntraVENous 2 times per day heparin (porcine) 5,000 Units SubCUTAneous 3 times per day [facility] Kianna Sanches DPM [employer] OFFICE: Thank you for allowing us to participate in the care of this patient. Please call with questions. This note is created with the assistance of a speech recognition program. While intending to generate a document that actually reflects the content of the visit, the document can still have some errors including those of syntax and sound a like substitutions which may escape proof reading. In such instances, actual meaning can be extrapolated by contextual diversion. Lyndon Garcia MD ATTESTATION: I have discussed the case, including pertinent history and exam findings with the medical office technologist. I have evaluated the History, physical findings and pictures of the patient and the william elements of the encounter have been performed by me. I have reviewed the laboratory data, other diagnostic studies and discussed them with the medical office technologist. I have updated the medical record where necessary. I agree with the assessment, plan and orders as documented by the medical office technologist and I have modified them as necessary. Elements of Medical Decision Making: Note: I have independently performed the steps listed below as part of the medical decision making and evaluation. Examined and discussed with patient. Labs, medications, radiologic studies were reviewed with personal review of films Large amounts of data were reviewed Discussed with nursing Staff, urban and regional planner Infection Control and Prevention measures reviewed All prior entries were reviewed Administer medications as ordered Prognosis: Guarded Discharge planning reviewed Follow up as outpatient. Lyndon Garcia MD. Images from the original note were not included. [facility] Department of Internal Medicine - Staff Internal Medicine Service ICU PATIENT TRANSFER NOTE Patient: Divina Amin Date of : 1960 Acct: [id number] Admit date: 09/02/2022 Code Status:- Full code Reason for ICU Admission:- SUPPORT DEVICES: [] Ventilator [] BIPAP [] Nasal Cannula [x] Room Air Consultations:- [] Cardiology [] Nephrology [x] Hemo onco [] GI [x] ID [] ENT [] Rheum [] Endo []Physiotherapy Others:- NUTRITION: [] NPO [] Tube Feeding (Specify: ) [] TPN [] PO Central Lines:- [x] No [] Yes If yes - Days/Date of Insertion. Pt seen,examined and Chart reviewed. ICU COURSE: The patient is a 61 y.o. female with past medical history significant for hypertension, type 2 diabetes mellitus, asthma, COPD, obesity who was initially admitted on 09/02/2022 with Necrotizing fasciitis (HCC) [M72.6] and presented with pain and redness and swelling involving the gluteal area and groin. Patient was initially alert and oriented x4 at outlying facility, she was noted to have an elevated WBC count and abscess in the left groin which showed subcutaneous gas concerning for necrotizing fascitis. Patient received 3 L of crystalloid fluids and a dose of vancomycin prior to transfer. In the ER patient was alert x0 VBG showed pH of 6.79, WBC count of 26, blood glucose in the 500s, beta hydroxybutyrate of 10, bicarb of less than 6. Patient was immediately evaluated by surgical team and another 2 L of fluids was given. Patient was initially started on DKA protocol in the emergency department. 1 amp of bicarb was given to her. In the ICU patient was intubated on 02/09 for mental status and extubated on 09/14. Underwent debridement on 0 09/03 s/p multiple debridements of necrotizing soft tissue infection of the left groin and perineum. S/p washout and closure 09/04 1 removed from the left thigh on 09/12 General surgery JESSICA #2 left thigh Nephrology was consulted for chronic kidney disease and left VELMA and was hyponatremic. Advised to continue 0.3 saline at 100 mm/h Continue Aldactone 25 daily. And monitor renal function. Currently continue the antibiotics as per ID, follow-up on nephro recommendations and follow-up with general surgery recommendations. Physical Exam: Vitals: BP 123/70 Pulse 84 Temp 98 F (36.7 C) (Oral) Resp 19 Ht 5' 2 (1.575 m) Wt 282 lb 1.6 oz (128 kg) SpO2 96% BMI 51.60 kg/m 24 hour intake/output: Intake/Output Summary (Last 24 hours) at 09/17/2022 0334 Last data filed at 09/16/2022 2200 Gross per 24 hour Intake 2493.99 ml Output 1910 ml Net 583.99 ml Last 3 weights: Wt Readings from Last 3 Encounters: 09/16/22 282 lb 1.6 oz (128 kg) General appearance - alert, in no distress Mental status - alert, oriented to person, place, and time Eyes - pupils equal and reactive, extraocular eye movements intact Mouth - mucous membranes moist, pharynx normal without lesions Neck - supple, no significant adenopathy Chest - clear to auscultation, no wheezes Heart - normal rate, regular rhythm, normal S1, S2 Abdomen - soft, nontender, nondistended Neurological - alert, oriented, normal speech, no focal deficits Extremities - peripheral pulses normal, no pedal edema Skin - normal coloration and turgor, no rashes Medications:Current Inpatient Scheduled Meds: miconazole Topical BID miconazole Topical BID insulin lispro 0-16 Units SubCUTAneous 4x Daily AC & HS spironolactone 25 mg Oral Daily ipratropium 0.5 mg-albuterol 2.5 mg 1 Dose Inhalation BID insulin glargine 30 Units SubCUTAneous BID hydrALAZINE 25 mg Oral 3 times per day PARoxetine 10 mg Per NG tube Daily sodium chloride flush 5-40 mL IntraVENous 2 times per day heparin (porcine) 5,000 Units SubCUTAneous 3 times per day Continuous Infusions: IV infusion builder 100 mL/hr at 09/16/22 1911 dextrose PRN Meds:ondansetron, oxyCODONE, acetaminophen, fentanNYL OR fentanNYL, glucose, dextrose bolus OR dextrose bolus, glucagon (rDNA), dextrose, sodium chloride flush, dextrose bolus, polyethylene glycol, albuterol Objective: CBC: Recent Labs 09/15/22 0530 09/16/22 0354 WBC 12.5* 10.9 HGB 11.6* 12.8 PLT 351 297 BMP: Recent Labs 09/14/22 1810 09/16/22 0354 NA 147* 147* K 3.5* 3.6* CL 105 105 CO2 28 29 BUN 55* 33* CREATININE 1.5* 1.1* GLUCOSE 176* 137* Calcium: Recent Labs 09/16/22 0354 CALCIUM 8.7 Ionized Calcium:No results for input(s): IONCA in the last 72 hours. Magnesium: Recent Labs 09/15/22 0530 MG 2.1 Phosphorus: Recent Labs 09/15/22 0530 PHOS 3.3 BNP:No results for input(s): BNP in the last 72 hours. Glucose: Recent Labs 09/14/22 0434 POCGLU 180* HgbA1C: No results for input(s): LABA1C in the last 72 hours. INR: No results for input(s): INR in the last 72 hours. Hepatic: No results for input(s): ALKPHOS, ALT, AST, PROT, BILITOT, BILIDIR, LABALBU in the last 72 hours. Amylase and Lipase:No results for input(s): LACTA, AMYLASE in the last 72 hours. Lactic Acid: No results for input(s): LACTA in the last 72 hours. CARDIAC ENZYMES:No results for input(s): CKTOTAL, CKMB, CKMBINDEX, TROPONINI in the last 72 hours. BNP: No results for input(s): BNP in the last 72 hours. Lipids: No results for input(s): CHOL, TRIG, HDL, LDL, LDLCALC in the last 72 hours. ABGs: No results found for: PH, PCO2, PO2, HCO3, O2SAT Thyroid: No results found for: T4, TSH Urinalysis: No results for input(s): BACTERIA, BLOODU, CLARITYU, COLORU, PHUR, PROTEINU, RBCUA, SPECGRAV, BILIRUBINUR, NITRU, WBCUA, LEUKOCYTESUR, GLUCOSEU in the last 72 hours. Assessment: Principal Problem: Necrotizing fasciitis (HCC) Active Problems: Metabolic acidosis Hypernatremia Hypokalemia VELMA (acute kidney injury) (HCC) Acute respiratory failure with hypoxia (HCC) Diabetic acidosis without coma (HCC) GEMA (obstructive sleep apnea) Septic shock (HCC) Bandemia Deborah gangrene Metabolic encephalopathy Open wound Ventilator dependent (HCC) Morbid obesity (HCC) Resolved Problems: * No resolved hospital problems. * Plan: Necrotizing fasciitis in the left groin: S/p multiple debridements of necrotic soft tissue infection of the left groin. S/p washout and closure 09/04. JESSICA #1 removed from left thigh on 09/12 by general surgery Continue to have TRINI #2 on left thigh Course of meropenem 14 days Continue on fluconazole which was added on 07 September. Metabolic acidosis due to DKA had bicarb drip Resolved VELMA SECONDARY to ischemic ATN complicated by vascular depletion. Creatinine baseline 1.1 peaked up to 3.3 now resolving down to 1.1 Continue 0.3 saline at 100 mL/h.. Continue Aldactone 25 daily. Hypernatremia due to insensible losses from the skin and diarrheal losses. Monitor renal function. DKA Type 2 diabetes mellitus Had insulin drip per DKA protocol, now on Lantus 30 twice daily Glucose controlled History of asthma and COPD on albuterol at home Maintaining saturation of 96% on room air BIPap at night for GEMA Hypertension Blood pressure under control 123/70 On hydrochlorothiazide 25, amlodipine 5 daily hydralazine 25 every 8 hours Deborah Harvey MD Department of Internal Medicine [facility], [place] 09/17/2022, 3:34 AM Attending Physician Statement I have discussed the care of Divina Amin with the resident team. I have examined the patient myself and taken ros and hpi , including pertinent history and exam findings, with the resident. I have reviewed the william elements of all parts of the encounter with the resident. I agree with the assessment, plan and orders as documented by the resident. Principal Problem: Necrotizing fasciitis (HCC) Active Problems: Metabolic acidosis Hypernatremia Hypokalemia VELMA (acute kidney injury) (HCC) Acute respiratory failure with hypoxia (HCC) Diabetic acidosis without coma (HCC) GEMA (obstructive sleep apnea) Septic shock (HCC) Bandemia Deborah gangrene Metabolic encephalopathy Open wound Ventilator dependent (HCC) Morbid obesity (HCC) Resolved Problems: * No resolved hospital problems. * Initially admitted to ICU for sepsis secondary to necrotizing fasciitis complicated by diabetic ketoacidosis severe metabolic acidosis, acute toxic metabolic and cephalopathy respiratory failure requiring intubation, VELMA, hyponatremia status post surgery for necrotizing fasciitis twice on 09/03 on 09/04, now recovering appropriately all above issues have resolved discharge planning to facility PT OT ordered, has completed course of antibiotics per ID Hypokalemic today-replace per protocol Discharge planning Critical care team - Resident sign-out to medicine service Date and time: 09/17/2022 12:38 AM Patient's name: Divina Amin Patient's account/billing number: [id number] Patient's Date of : 1960 Age: 61 y.o. Date of Admission: 09/02/2022 12:12 AM Length of stay during current admission: 15 Primary Care Physician: CANDIDA BROWN Code Status: Full Code Mode of physician to physician communication: [x] Via telephone [] In person Date and time of sign-out: 09/17/2022 12:38 AM Accepting Internal Medicine resident: Dr. Antonio Accepting Medicine team: IM Team Med 3 Accepting team's attending: Dr. Downs Patient's current ICU Bed: 3011 Patient's assigned bed on floor: 244 [x] Med-Surg Monitored [] Step-down [] Psychiatry ICU [] Psych floor Reason for ICU admission: AMS. ICU course summary: [facility]. past medical history of HTN, type 2 diabetes, asthma, COPD and obesity. Presented to the hospital with pain and redness and swelling involving the gluteal area and groin. Patient was initially alert and oriented x4 at [facility], she was noted to have an elevated WBC count and abscess in the left groin which showed subcutaneous gas concerning for necrotizing fascitis. Patient received 3 L of crystalloid fluids and a dose of vancomycin prior to transfer. In our emergency department the patient was altered ANO x0, VBG showed pH of 6.79, WBC count of 26, blood glucose in the 500s, beta hydroxybutyrate of 10, bicarb of less than 6. Patient was immediately evaluated by surgical team and another 2 L of fluids was given. Patient was initially started on DKA protocol in the emergency department. 1 amp of bicarb was given to her. Necrotizing fasciitis in the left groin S/p multiple debridements of necrotizing soft tissue infection of the left groin/perineum. S/p washout and closure 09/04 JESSICA #1 removed from left thigh on 09/12 by general surgery. Continues to have JESSICA #2 and left thigh Infectious disease and surgery following ID: ? The patient continues on antimicrobial therapy with meropenem for necrotizing soft tissue infection-End date 09/16/22 for a total of 14 days of treatment ? She was previously on linezolid which was discontinued 09/07/2022 ? Continue fluconazole which was added 09/07/2022 Nephrology consulted for chronic kidney disease. Patient has been hypernatremic with sodiums in the 145-150 range, indicative of free water losses. Work-up so far shows normal complements, no renal asymmetry. Recommends: Encourage free water intake although I suspect that is not going to be be enough to cover for insensible losses and diarrhea losses 2. Continue 0.3 saline at 100 mm an hour 3. Continue Aldactone 25 daily, discontinue Bumex and Norvasc Gen surg 1. Continue JESSICA drain to bulb suction, monitor and record output 2. Abx per ID 3. Continue strict glucose control for healing purposes with goal <180. 4. No further surgical interventions planned. Continuing to monitor wound and drain outputs. Neuro consulted for Acute toxic metabolic encephalopathy in the setting of necrotizing fasciitis, sepsis, VELMA, acute respiratory failure, bilateral pleural effusions, aspiration pneumonia, DKA and medication effects. As mentation improved, no intervention planned. Procedures during patient's ICU stay: /p multiple debridements of necrotizing soft tissue infection of the left groin/perineum. S/p washout and closure 09/04 JESSICA #1 removed from left thigh on 09/12 by general surger Current Vitals: BP 138/79 Pulse 90 Temp 99 F (37.2 C) Resp 23 Ht 5' 2 (1.575 m) Wt 282 lb 1.6 oz (128 kg) SpO2 92% BMI 51.60 kg/m Cultures: Blood cultures: [] None drawn [x] Negative [] Positive (Details: ) Urine Culture: [] None drawn [x] Negative [] Positive (Details: ) Sputum Culture: [] None drawn [x] Negative [] Positive (Details: ) Endotracheal aspirate: [] None drawn [] Negative [x] Positive (Details: Yeast ) Consults: 1. Nephro 2. ID 3. Neuro 4. Gen surg Assessment: Patient Active Problem List Diagnosis Date Noted Open wound 09/12/2022 Ventilator dependent (HCC) 09/12/2022 Morbid obesity (HCC) 09/12/2022 Metabolic encephalopathy 09/11/2022 Bandemia 09/10/2022 Deborah gangrene 09/10/2022 Septic shock (HCC) 09/06/2022 Acute respiratory failure with hypoxia (HCC) 09/05/2022 Diabetic acidosis without coma (HCC) 09/05/2022 GEMA (obstructive sleep apnea) 09/05/2022 VELMA (acute kidney injury) (HCC) 09/03/2022 Necrotizing fasciitis (HCC) 09/02/2022 Metabolic acidosis 09/02/2022 Hypernatremia 09/02/2022 Hypokalemia 09/02/2022 Recommended Follow-up: F/u on ID recs F/u on nephro recs F/u on Gen surg recs. Maggie Gonzales MD PGY-2, Internal Medicine Resident [facility], [place] 09/17/2022, 12:44 AM INTENSIVE CARE UNIT Resident Physician Progress Note Patient - Divina Amin Date of Admission - 09/02/2022 12:12 AM Date of Evaluation - 09/16/2022 Room and Bed Number - 3011/3011-01 Hospital Day - 14 Chief Complaint Patient presents with Altered Mental Status SUBJECTIVE: HISTORY OF PRESENT ILLNESS: Divina Amin is a 61 y.o. with a past medical history of type 2 diabetes, asthma, COPD and obesity. Patient was transferred here [facility] after concerns for necrotizing fasciitis. Patient was initially alert and oriented x4 at [facility], she was noted to have an elevated WBC count and abscess in the left groin which showed subcutaneous gas. Patient received 3 L of crystalloid fluids and a dose of vancomycin prior to transfer. In our emergency department the patient was altered ANO x0, VBG showed pH of 6.79, WBC count of 26, blood glucose in the 500s, beta hydroxybutyrate of 10, bicarb of less than 6. Patient was immediately evaluated by surgical team and another 2 L of fluids was given. Patient was initially started on DKA protocol in the emergency department. 1 amp of bicarb was given to her. On initial icu evaluation she was altered, not answering questions and not responding fully. Seem to be in acute distress. patient on a continuous bicarb drip, insulin drip , meropenem and linezolid by surgery team due to history of penicillin allergy. potassium was 5.2. Underwent debridement 09/02/2022, intubated for procedure Started on DKA protocol Repeat debridement 09/03. Repeat washout and closure on 09/04 Linezolid discontinued on 09/07 OVERNIGHT EVENTS: No acute issues overnight. Patient states pain well controlled this AM UOP 1.5L (0.5 cc/kg/hr) Drain output 30 cc over 24 hours. Stool: 600cc Net: +7.3L BP: 141/74 MAP: 86 HR: 79 Tmax: 98.8 BiPAP overnight BUN/Cr: 55/1.5 Na: 147 K: 3.6, replaced WBC: 10.9 Hb: 12.8 ID: meropenem and fluconazole F.A.S.T. M. H.U.G.S. B.I.D. Feeding Diet: Regular diet Fluids: 3 water 300 mg every 4 hours. Family: will update when here Analgesic: Jamila 10 mg every 6 hours, fentanyl 50/100 every 2 hours as needed. Sedation: Off sedation Thrombo-prophylaxis: [x] Enoxaparin, [] Unfract. Heparin Subcutaneously, [] EPC Cuffs Mobility: PT/OT Heads up: NA Ulcer prophylaxis: [] PPI Agent, [] J4Pboky, [] Sucralfate, [] Other: Glycemic control: Lantus 30 units twice daily- held for low glucose, lispro high-dose correction Spontaneous breathing trial: Daily Bowel regimen/urine output: GlycoLax daily urine, urine output 0.8 cc per kilogram per hour Indwelling catheter/lines: FMS, Hunter for wound care, JESSICA x1 De-escalation: wean sedation as tolerated OBJECTIVE: VITAL SIGNS: Patient Vitals for the past 8 hrs: BP Temp Temp src Pulse Resp SpO2 Weight 09/16/22 1000 -- -- -- -- -- -- 282 lb 1.6 oz (128 kg) 09/16/22 0800 -- -- -- 78 -- -- -- 09/16/22 0750 -- -- -- 86 20 91 % -- 09/16/22 0741 133/69 98.2 F (36.8 C) Bladder 84 19 93 % -- 09/16/22 0600 -- 98.1 F (36.7 C) -- 85 20 94 % -- Last Body weight: Wt Readings from Last 3 Encounters: 09/16/22 282 lb 1.6 oz (128 kg) Body Mass Index : Body mass index is 51.6 kg/m . Tmax over 24 hours: Temp (24hrs), Av.5 F (36.9 C), Min:98.1 F (36.7 C), Max:98.8 F (37.1 C) Ins/Outs: In: 1818.7 [P.O.:480; I.V.:1053] Out: 2495 [Urine:1845; Drains:50] PHYSICAL EXAM: Constitutional: awake and alert, following commands in all 4 extremities EENT: PERRLA, sclera clear, anicteric, oropharynx clear, no lesions, neck supple with midline trachea. Neck: Supple, symmetrical, trachea midline, no adenopathy, thyroid symmetric, no jvd skin normal Respiratory: clear to auscultation, no wheezes or rales and unlabored breathing. No intercostal tenderness Cardiovascular: regular rate and rhythm, normal S1, S2, no murmur noted and 2+ pulses throughout Abdomen: Debrided lower abdominal wound, JESSICA to left thigh Extremities: peripheral pulses normal, no pedal edema, no clubbing or cyanosis MEDICATIONS: Scheduled Meds: spironolactone 25 mg Oral Daily ipratropium 0.5 mg-albuterol 2.5 mg 1 Dose Inhalation BID meropenem 1,000 mg IntraVENous Q12H insulin glargine 30 Units SubCUTAneous BID hydrALAZINE 25 mg Oral 3 times per day PARoxetine 10 mg Per NG tube Daily insulin lispro 0-16 Units SubCUTAneous Q6H RT sodium chloride flush 5-40 mL IntraVENous 2 times per day heparin (porcine) 5,000 Units SubCUTAneous 3 times per day Continuous Infusions: IV infusion builder 100 mL/hr at 09/16/22 0926 dextrose PRN Meds: ondansetron, 4 mg, Q6H PRN oxyCODONE, 10 mg, Q6H PRN acetaminophen, 650 mg, Q4H PRN fentanNYL, 50 mcg, Q2H PRN Or fentanNYL, 100 mcg, Q2H PRN glucose, 4 tablet, PRN dextrose bolus, 125 mL, PRN Or dextrose bolus, 250 mL, PRN glucagon (rDNA), 1 mg, PRN dextrose, , Continuous PRN sodium chloride flush, 5-40 mL, PRN dextrose bolus, 125 mL, PRN polyethylene glycol, 17 g, Daily PRN albuterol, 2.5 mg, As Directed RT PRN SUPPORT DEVICES: [] Ventilator [x] BIPAP at night [] Nasal Cannula [] Room Air VENT SETTINGS (Comprehensive) (if applicable): Vent Information Ventilator ID: [id number] Equipment Changed: HME, Expiratory Filter Ventilator Initiate: Yes Ventilator Discontinue: Yes Vent Mode: AC/PRVC Additional Respiratory Assessments Pulse: 78 Respirations: 20 SpO2: 91 % End Tidal CO2: 46 (%) Position: Semi-Multani's Humidification Source: HME Circuit Condensation: Drained Cuff Pressure (cm H2O): (MOV) Swallow: Normal - able to swallow solids Lab Results Component Value Date/Time MODE [facility] 09/12/2022 04:22 AM ABGs: No results found for: PH, PCO2, PO2, HCO3, O2SAT DATA: Complete Blood Count: Recent Labs 09/14/2231609/15/22 0530 09/16/22 0354 WBC 11.1 12.5* 10.9 RBC 3.52* 3.93* 4.22 HGB 11.0* 11.6* 12.8 HCT 34.7* 37.7 39.3 MCV 98.6 95.9 93.1 MCH 31.3 29.5 30.3 MCHC 31.7 30.8 32.6 RDW 12.4 12.1 12.6 PLT 241 351 297 MPV 11.7 11.6 11.9 Last 3 Blood Glucose: Recent Labs 09/14/2231609/14/22180909/16/22 0354 GLUCOSE 162* 176* 137* PT/INR: Lab Results Component Value Date/Time PROTIME 17.5 09/02/2022 01:35 AM INR 1.5 09/02/2022 01:35 AM PTT: Lab Results Component Value Date/Time APTT 36.0 09/02/2022 01:35 AM Basic Metabolic Profile: Recent Labs 09/14/2231609/14/22180909/15/2252909/16/22 0354 NA 145* 147* -- 147* K 3.7 3.5* -- 3.6* CL 106 105 -- 105 CO2 29 28 -- 29 BUN 61* 55* -- 33* CREATININE 1.5* 1.5* -- 1.1* GLUCOSE 162* 176* -- 137* PHOS -- -- 3.3 -- Liver Function: No results for input(s): PROT, LABALBU, ALT, AST, GGT, ALKPHOS, BILITOT in the last 72 hours. Magnesium: Lab Results Component Value Date/Time MG 2.1 09/15/2022 05:30 AM MG 2.0 09/11/2022 03:28 AM MG 1.9 09/05/2022 04:23 AM Phosphorus: Lab Results Component Value Date/Time PHOS 3.3 09/15/2022 05:30 AM PHOS 3.7 09/05/2022 04:23 AM PHOS 3.2 09/05/2022 12:22 AM Ionized Calcium: Lab Results Component Value Date/Time CAION 1.25 09/02/2022 04:10 AM Urinalysis: Lab Results Component Value Date/Time NITRU NEGATIVE 09/02/2022 01:37 AM COLORU Yellow 09/02/2022 01:37 AM PHUR 5.5 09/02/2022 01:37 AM WBCUA 0 TO 2 09/02/2022 01:37 AM RBCUA 20 TO 50 09/02/2022 01:37 AM MUCUS 1+ 09/02/2022 01:37 AM SPECGRAV 1.023 09/02/2022 01:37 AM LEUKOCYTESUR NEGATIVE 09/02/2022 01:37 AM UROBILINOGEN Normal 09/02/2022 01:37 AM BILIRUBINUR NEGATIVE 09/02/2022 01:37 AM GLUCOSEU 3+ 09/02/2022 01:37 AM KETUA LARGE 09/02/2022 01:37 AM HgBA1c: Lab Results Component Value Date/Time LABA1C 12.5 09/02/2022 06:03 AM TSH: No results found for: TSH Lactic Acid: No results found for: LACTA Troponin: No results for input(s): TROPONINI in the last 72 hours. Microbiology: Urine Culture: No components found for: CURINE Blood Culture: No components found for: CBLOOD, CFUNGUSBL Sputum Culture: No components found for: CSPUTUM Radiology/Imaging: CT HEAD WO CONTRAST Final Result Study limited by motion artifact. No acute intracranial abnormality. Mild age-appropriate atrophy and small-vessel disease ischemic changes. Patient is intubated. CT CHEST ABDOMEN PELVIS WO CONTRAST Additional Contrast? None Final Result 1. Drainage catheters are noted in the left groin/perineum without drainable fluid collection or new soft tissue gas. 2. Anasarca. 3. New bilateral pleural effusions with patchy ground-glass opacities in the left upper lobe, likely infectious or inflammatory in etiology. 4. No new acute findings in the abdomen or pelvis. XR CHEST PORTABLE Final Result Patchy airspace opacities most pronounced in the right mid to lower lung view, may be related to mild pulmonary edema versus pneumonia. Mild bilateral pleural effusions. US RENAL COMPLETE Final Result 1. Simple midpole left renal cyst measuring 2.7 cm. 2. No hydronephrosis. XR CHEST PORTABLE Final Result Decreased pulmonary edema Otherwise, stable chest XR ABDOMEN FOR NG/OG/NE TUBE PLACEMENT Final Result OG tube in satisfactory position. XR CHEST (SINGLE VIEW FRONTAL) Final Result Endotracheal tube in satisfactory position. Right IJ line unchanged. Mild congestive failure, stable. XR CHEST PORTABLE Final Result Right IJ catheter with tip at the inferior SVC. No pneumothorax. Findings of interstitial pulmonary edema. 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 Septic shock ([facility]) 09/06/2022 Acute respiratory failure with hypoxia ([facility]) 09/05/2022 Diabetic acidosis without coma ([facility]) 09/05/2022 GEMA (obstructive sleep apnea) 09/05/2022 VELMA (acute kidney injury) ([facility]) 09/03/2022 Necrotizing fasciitis ([facility]) 09/02/2022 Metabolic acidosis 09/02/2022 Hypernatremia 09/02/2022 Hypokalemia 09/02/2022 PLAN: PLAN/MEDICAL DECISION MAKING: Neurologic: Awake and alert, following commands Neuro checks per protocol roxicodone 10 mg every 6 hours, fentanyl 50/100 mcg Every 2 hours as needed. Will decrease as able Home Paxil daily Cardiovascular: History of hypertension, on hydrochlorothiazide 25 mg daily at home, amlodipine 5 mg daily hydralazine 25 mg every 8 hours Hemodynamically stable MAP goal 65 Pulmonary: History of asthma and COPD, on albuterol at home Atrovent nebulization ordered due to tachycardia Maintain oxygen sats >88% BiPAP at night for GEMA Pulmonary toilet Vent Information Ventilator ID: [id number] Equipment Changed: HME, Expiratory Filter Ventilator Initiate: Yes Ventilator Discontinue: Yes Vent Mode: AC/PRVC GI/Nutrition Ulcer Prophylaxis: Prevacid daily, not home med. Will discontinue Diet:ADULT DIET; Regular; 3 carb choices (45 gm/meal) ADULT ORAL NUTRITION SUPPLEMENT; Breakfast, Lunch, Dinner; Standard High Calorie/High Protein Oral Supplement Bowel regimen with GlycoLax daily as needed Renal/Fluid/Electrolyte Metabolic acidosis due to DKA. Had bicarb drip. Switched to D5/half normal. VELMA with poor urine output, nephrology following. Recommended to hold Bumex and continue free water to 300 cc every 4 hours Received 2 doses Diuril yesterday per nephrology I/O: In: 1818.7 [P.O.:480; I.V.:1053] Out: 2495 [Urine:1845; Drains:50] Monitor electrolytes, replace PRN Hunter catheter was attempted to be removed however patient had urinary retention and needs wound care requiring Hunter be replaced. Maintaining for wound care ID Necrotizing fasciitis in the left groin S/p multiple debridements of necrotizing soft tissue infection of the left groin/perineum. S/p washout and closure 09/04 JESSICA #1 removed from left thigh on 09/12 by general surgery. Continues to have JESSICA #2 and left thigh Infectious disease and surgery following WBC: Lab Results Component Value Date WBC 10.9 09/16/2022 Tmax: Temp (24hrs), Av.5 F (36.9 C), Min:98.1 F (36.7 C), Max:98.8 F (37.1 C) Antimicrobials: Meropenem (end date today) and Diflucan. ID following Hematology: Recent Labs 09/14/22 0317 09/15/22 0530 09/16/22 0354 HGB 11.0* 11.6* 12.8 stable Endocrine: Type II diabetes: had insulin drip Per DKA protocol. Now on Lantus 30 BID. and MDSS glucose controlled - most recent BGL is Recent Labs 09/14/22 0317 09/14/22 1810 09/16/22 0354 GLUCOSE 162* 176* 137* DVT Prophylaxis Heparin Discharge Needs: PT, OT, and Case Management CODE STATUS: Full Code DISPOSITION: [] To remain ICU: [x] OK for out of ICU from Critical Care standpoint Debi Brooke DO Emergency Medicine Resident PGY2 [facility]; [place], [place] 09/16/2022, 1:13 PM Associated attestation - Jose Carlos Way MD - 09/16/2022 5:37 PM EDT Attending Physician Statement I have discussed the case of Divina Amin, including pertinent history and exam findings with the resident/fellow/medical student/CLOUD ADMINISTRATOR/PA. I have seen and examined the patient and the william elements of the encounter have been performed by me. I agree with the assessment, plan and orders as documented by the resident/fellow/medical student/CLOUD ADMINISTRATOR/PA With changes made to the note as needed. Pt was seen during rounds. Review of Systems: In addition to the pertinent positives and negatives as stated within HPI and the review of systems as documented in their notes, all other systems were reviewed when able to and are reported negative. Patient used BiPAP last night with improvement in her daytime sleepiness and fatigue and tiredness On 3 L oxygen by nasal cannula Poor oral intake We will start Ensure with high-calorie Ensure Fluid balance is +8 L Blood sugars are acceptable Hyponatremia is mild, continue free water Anemia stable Leukocytosis improved On subcutaneous heparin Family was updated Total critical care time caring for this patient with life threatening, unstable organ failure, including direct patient contact, management of life support systems, review of data including imaging and labs, discussions with other team members and physicians at least 30 Min so far today, excluding procedures. Jose Carlos Way MD 09/16/2022 5:36 PM Renal Progress Note Patient : Divina Amin; 61 y.o. Location: 3011/3011-01 Attending: Nader Smith MD Admit Date: 09/02/2022 Hospital Day: 14 Subjective: Oral intake suboptimal, trying her best to drink much fluid as she can. Also have intermittent diarrhea, FMS in place. Insensible losses high. 2.3 saline started yesterday, sodium stable at 147 patient finished a course of antibiotics today. Hunter catheter in place to prevent soiling and worsening of her fasciitis in the gluteal area. No shortness of breath orthopnea. Weights not being done accurately. Intake output record not reflective of insensible losses which are going to be large given body size and BMI of 54. Clinically does not show any signs of fluid overload. Labs today show sodium 147, potassium 3.6 chloride 105 bicarb 29 BUN 33 creatinine 1.1 calcium 8.2 hemoglobin 12.8 white count 10.9 platelets 217 History reviewed Known history of type 2 diabetes, super morbid obesity, hypertension, has been on metformin, Glucotrol and insulin at home. Presented to the hospital with pain and redness and swelling involving the gluteal area and groin. Found to have necrotizing fasciitis transferred to [facility] for further care. Creatinine on presentation was 1.5 and has been in the 1.5-1.7 range. Baseline creatinine not available. Nephrology consulted for chronic kidney disease. Since then she has undergone debridement and placement of wound VAC to left perineal thigh and gluteal necrotizing soft tissue infection. Drain has been placed. Local wound care continues. Patient has been hypernatremic with sodiums in the 1 45-1 50 range, indicative of free water losses. Work-up so far shows normal complements, no renal asymmetry. Intravenous linezolid and meropenem has been used discharge antibiotics. Creatinine has remained stable as written above. Outpatient Medications: Medications Prior to Admission: pravastatin (PRAVACHOL) 20 MG tablet, Take 1 tablet by mouth daily albuterol sulfate HFA (VENTOLIN HFA) 108 (90 Base) MCG/ACT inhaler, Inhale 2 puffs into the lungs 4 times daily as needed for Wheezing hydroCHLOROthiazide (HYDRODIURIL) 25 MG tablet, Take 1 tablet by mouth daily metFORMIN (GLUCOPHAGE-XR) 500 MG extended release tablet, Take 1 tablet by mouth 2 times daily PARoxetine (PAXIL) 10 MG tablet, Take 1 tablet by mouth every morning lisinopril (PRINIVIL;ZESTRIL) 5 MG tablet, Take 1 tablet by mouth daily glipiZIDE (GLUCOTROL) 10 MG tablet, Take 1 tablet by mouth 2 times daily insulin NPH (HUMULIN N;NOVOLIN N) 100 UNIT/ML injection vial, Inject 30 Units into the skin in the morning and 30 Units in the evening. Current Medications: Scheduled Meds: spironolactone 25 mg Oral Daily ipratropium 0.5 mg-albuterol 2.5 mg 1 Dose Inhalation BID meropenem 1,000 mg IntraVENous Q12H insulin glargine 30 Units SubCUTAneous BID hydrALAZINE 25 mg Oral 3 times per day [Held by provider] amLODIPine 5 mg Oral Daily PARoxetine 10 mg Per NG tube Daily insulin lispro 0-16 Units SubCUTAneous Q6H RT [Held by provider] bumetanide 2 mg IntraVENous BID sodium chloride flush 5-40 mL IntraVENous 2 times per day heparin (porcine) 5,000 Units SubCUTAneous 3 times per day Continuous Infusions: IV infusion builder 100 mL/hr at 09/16/22 0926 dextrose PRN Meds: ondansetron, oxyCODONE, acetaminophen, fentanNYL OR fentanNYL, glucose, dextrose bolus OR dextrose bolus, glucagon (rDNA), dextrose, sodium chloride flush, dextrose bolus, polyethylene glycol, albuterol Input/Output: I/O last 3 completed shifts: In: 2322.6 [P.O.:1905; I.V.:79.2; IV Piggyback:338.4] Out: 3855 [Urine:2715; Drains:40; Stool:1100]. No data found. Vital Signs: Temperature: Temp: 98.2 F (36.8 C) TMax: Temp (24hrs), Av.6 F (37 C), Min:98.1 F (36.7 C), Max:98.8 F (37.1 C) Respirations: Respirations: 20 Pulse: Pulse: 78 BP: BP: 133/69 BP Range: Systolic (24hrs), Av , Min:132 , Max:142 Diastolic (24hrs), Av, Min:54, Max:76 Physical Examination: General: AAO x 3, speaking in full sentences, no accessory muscle use. HEENT: Atraumatic, normocephalic, no throat congestion, moist mucosa. Eyes: Pupils equal, round and reactive to light, EOMI. Neck: No JVD, no thyromegaly, no lymphadenopathy. Chest: Bilateral vesicular breath sounds, no rales or wheezes. Cardiac: S1 S2 RR, no murmurs, gallops or rubs, JVP not raised. Abdomen: Soft, non-tender, no masses or organomegaly, BS audible. : No suprapubic or flank tenderness. Neuro: AAO x 3, No FND. SKIN: No rashes, good skin turgor. Extremities: No edema, pulses sluggish Labs: Recent Labs 09/14/22 0317 09/15/22 0530 09/16/22 0354 WBC 11.1 12.5* 10.9 RBC 3.52* 3.93* 4.22 HGB 11.0* 11.6* 12.8 HCT 34.7* 37.7 39.3 MCV 98.6 95.9 93.1 MCH 31.3 29.5 30.3 MCHC 31.7 30.8 32.6 RDW 12.4 12.1 12.6 PLT 241 351 297 MPV 11.7 11.6 11.9 BMP: Recent Labs 09/14/22 0317 09/14/22 1810 09/16/22 0354 NA 145* 147* 147* K 3.7 3.5* 3.6* CL 106 105 105 CO2 29 28 29 BUN 61* 55* 33* CREATININE 1.5* 1.5* 1.1* GLUCOSE 162* 176* 137* CALCIUM 8.7 9.0 8.7 Phosphorus: Recent Labs 09/15/22 0530 PHOS 3.3 Magnesium: Recent Labs 09/15/22 0530 MG 2.1 Albumin: No results for input(s): LABALBU in the last 72 hours. BNP: No results found for: BNP YASH: No results found for: YASH SPEP: Lab Results Component Value Date/Time PROT 6.2 09/10/2022 04:35 AM UPEP: No results found for: LABPE C3: Lab Results Component Value Date/Time C3 128 09/04/2022 06:01 PM C4: Lab Results Component Value Date/Time C4 19 09/04/2022 06:01 PM MPO ANCA: No results found for: MPO PR3 ANCA: No results found for: PR3 Anti-GBM: No results found for: GBMABIGG Hep BsAg: No results found for: HEPBSAG Hep C AB: No results found for: HEPCAB Urinalysis/Chemistries: Lab Results Component Value Date/Time NITRU NEGATIVE 09/02/2022 01:37 AM COLORU Yellow 09/02/2022 01:37 AM PHUR 5.5 09/02/2022 01:37 AM WBCUA 0 TO 2 09/02/2022 01:37 AM RBCUA 20 TO 50 09/02/2022 01:37 AM MUCUS 1+ 09/02/2022 01:37 AM SPECGRAV 1.023 09/02/2022 01:37 AM LEUKOCYTESUR NEGATIVE 09/02/2022 01:37 AM UROBILINOGEN Normal 09/02/2022 01:37 AM BILIRUBINUR NEGATIVE 09/02/2022 01:37 AM GLUCOSEU 3+ 09/02/2022 01:37 AM KETUA LARGE 09/02/2022 01:37 AM Urine Sodium: Lab Results Component Value Date/Time DEANGELO 46 09/04/2022 06:02 PM Urine Potassium: No results found for: KUR Urine Chloride: No results found for: CLUR Urine Osmolarity: No results found for: OSMOU Urine Protein: No components found for: TOTALPROTEIN, URINE Urine Creatinine: Lab Results Component Value Date/Time LABCREA 94.3 09/04/2022 06:02 PM Urine Eosinophils: No components found for: UEOS Radiology: CXR: Assessment: 1. Acute Kidney Injury: Secondary ischemic ATN complicated by intravascular depletion insensible losses baseline not known, suspected to be around 1.1-1.2, peaked up to 3.3 now resolving down to 1.1 2. Hypernatremia due to insensible losses both from the skin and diarrheal losses and decreased oral intake, sodium 147 today 3. Necrotizing fasciitis involving left gluteal area and groin status post multiple I&D and debridement procedures on antibiotics currently has a wound VAC 4. Respiratory failure resolved 5. Hypertension with fluctuating blood pressures 6. Persistent hypokalemia 7. Super morbid obesity Plan: 1. Encourage free water intake although I suspect that is not going to be be enough to cover for insensible losses and diarrhea losses 2. Continue 0.3 saline at 100 mm an hour 3. Continue Aldactone 25 daily, discontinue Bumex and Norvasc 4. Monitor renal function 5. Creatinine at baseline, sodium level within acceptable range, nothing else to add from nephrology standpoint, nephrology signing off please call for questions 6. IV fluids can be discontinued once oral intake up to par 7. Can follow-up with us in the office after discharge Nutrition Please ensure that patient is on a renal diet/TF. Avoid nephrotoxic drugs/contrast exposure. We will continue to follow along with you. Images from the original note were not included. [facility] Progress Note Divina Amin Date: 09/16/2022 LOS: 14 Reason for F/U : Necrotizing soft tissue infection Impression : Left perineal, thigh/gluteal necrotizing soft tissue infection status post surgical drainage 09/02/2022 Status post second look/I&D 09/03/2022 Status post irrigation and closure of left thigh and groin and buttock soft tissue defect 09/04/2022 Acute respiratory failure currently ventilator dependent Shock-resolved Diabetes mellitus with DKA currently on insulin drip Extreme obesity Acute kidney injury with unknown baseline creatinine COPD Recommendations: The patient continues on antimicrobial therapy with meropenem for necrotizing soft tissue infection-End date 09/16/22 for a total of 14 days of treatment She was previously on linezolid which was discontinued 09/07/2022 Continue fluconazole which was added 09/07/2022 Continue local wound care Infection Control Recommendations: [place] precautions Discharge Planning: Estimated Length of IV antimicrobials:09/16/22 Patient will need Midline Catheter Insertion/ PICC line Insertion: No Patient will need: Home IV , Infusion Center, SNF, LTAC: No Patient will need outpatient wound care: Yes Medical Decision making / Summary of Stay: Divina Amin is a 61 y.o.-year-old female who was initially admitted on 09/02/2022. Divina is a morbidly obese diabetic female with also a history of asthma/COPD and is currently intubated and the history is obtained from the daughter who is at bedside. It is my understanding that Divina has had a history of boils in her left groin area which have previously been drained in the past. She has certainly not needed to be hospitalized for these and she had been complaining of a boil/infection in her left groin for about a week at home. The patient ended up being started on Bactrim about a day ago but the daughter after getting home from work in the late afternoon yesterday found that Divina was out of it and was having difficulty ambulating going to the bathroom. She ended up calling EMS and the patient was taken to an outlying facility in [place] where work-up showed some leukocytosis, left groin soft tissue infection with some soft tissue gas and the patient was hypotensive. The patient received fluid resuscitation and was transferred here where blood sugars were elevated and the patient was started on the DKA protocol. The patient became more confused and was seen by the general surgery team started on antimicrobial therapy with meropenem and linezolid due to history of a penicillin allergy. The patient had an obvious wound on the left perineum/upper thigh that was protruding necrotic and fluctuant. The patient was taken to the operating room this morning underwent incision and drainage of her left thigh/left groin and buttocks abscess/soft tissue infection and there was a sinclair necrotizing tissue appreciated during the surgery. The margins included the left major labia majora, left upper thigh, left inferior groin, left perineum/gluteal area. The patient is currently in the intensive care unit and I was asked to evaluate and help with antibiotic choice. The patient was taken to the operating room 09/03/2022 and underwent second look/debridement procedure of the left groin/thigh area. The patient was taken to the operating room 09/04/2022 and underwent irrigation and closure of the left thigh groin buttock and soft tissue defect after the patient was found to have a clean wound base and there was placement of 2 flat JESSICA drains with multilayer closure. Current Evaluation:09/16/2022 BP 133/69 Pulse 78 Temp 98.2 F (36.8 C) (Bladder) Resp 20 Ht 5' 2 (1.575 m) Wt 297 lb 2.9 oz (134.8 kg) SpO2 91% BMI 54.35 kg/m Temperature Range: Temp: 98.2 F (36.8 C) Temp Av.6 F (37 C) Min: 98.1 F (36.7 C) Max: 98.8 F (37.1 C) Patient evaluated in the ICU Afebrile VS stable HTN The patient was awake and alert upon evaluation. She has some residual sore throat s/p extubation on 09/14/22. Medications reviewed: Diflucan completed on 09/12/22 09/16/22:Meropenem completes for necrotizing soft tissue infection Bumex and free water given for VELMA with hypernatremia per Nephrology. CT chest on 09/09/22 showed small to moderate bilateral pleural effusions with adjacent atelectasis and patchy opacities in the MICHAEL. Sputum culture on 09/11 is showing light growth yeast. FMS is in place for liquid stool No other acute issues noted. Discussed with RN Labs Reviewed 09/16/2022 BUN:64-->60-->61-->55-->33 Cr: 2.1-->1.7-->1.5-->1.5-->1.1 Na: 151-->148-->145-->147 WBC: 12.1-->13.9-->11.1-->12.5-->10.9 Hgb: 12.9-->12.2-->11.0-->11.6-->12.8 Plt: 235-->379-->214-->241-->351-->297 Cultures: Results Procedure Component Value Units Date/Time Culture, Respiratory [[id number]] (Abnormal) Collected: 09/11/22 0018 Order Status: Completed Specimen: Sputum Expectorated Updated: 09/13/22 1126 Specimen Description .EXPECTORATED SPUTUM Direct Exam >10, <25 NEUTROPHILS/LPF < 10 EPITHELIAL CELLS/LPF FEW YEAST Culture Chasity albicans/dubliniensis MODERATE GROWTH NO NORMAL CITLALI Review of Systems Constitutional: Negative. HENT: Positive for sore throat. Eyes: Negative. Respiratory: Negative. Cardiovascular: Negative. Gastrointestinal: Positive for diarrhea. Endocrine: Negative. Musculoskeletal: Negative. Skin: Surgical sites present Allergic/Immunologic: Negative. Neurological: Negative. Hematological: Negative. Psychiatric/Behavioral: Negative. All other systems reviewed and are negative. Physical Examination : Physical Exam Vitals and nursing note reviewed. Constitutional: Appearance: Normal appearance. She is well-developed. She is obese. Interventions: She is sedated. She is not intubated. HENT: Head: Normocephalic and atraumatic. Nose: Nose normal. Mouth/Throat: Mouth: Mucous membranes are moist. Eyes: Pupils: Pupils are equal, round, and reactive to light. Cardiovascular: Rate and Rhythm: Regular rhythm. Heart sounds: Normal heart sounds. Pulmonary: Effort: Pulmonary effort is normal. She is not intubated. Breath sounds: Normal breath sounds. Abdominal: General: Bowel sounds are normal. Palpations: Abdomen is soft. Comments: Surgical site Musculoskeletal: General: Normal range of motion. Cervical back: Neck supple. Skin: General: Skin is warm and dry. Capillary Refill: Capillary refill takes less than 2 seconds. Comments: There is a dressing in the perineal area which was not removed Neurological: General: No focal deficit present. Mental Status: She is alert and oriented to person, place, and time. Psychiatric: Mood and Affect: Mood normal. Behavior: Behavior normal. Thought Content: Thought content normal. Judgment: Judgment normal. Laboratory data: I have independently reviewed the followinglabs: CBC with Differential: Recent Labs 09/15/22 0530 09/16/22 0354 WBC 12.5* 10.9 HGB 11.6* 12.8 HCT 37.7 39.3 PLT 351 297 LYMPHOPCT 14* 20* MONOPCT 8 9 BMP: Recent Labs 09/14/22 1810 09/15/22 0530 09/16/22 0354 NA 147* -- 147* K 3.5* -- 3.6* CL 105 -- 105 CO2 28 -- 29 BUN 55* -- 33* CREATININE 1.5* -- 1.1* MG -- 2.1 -- Hepatic Function Panel: No results for input(s): PROT, LABALBU, BILIDIR, IBILI, BILITOT, ALKPHOS, ALT, AST in the last 72 hours. No results found for: PROCAL Lab Results Component Value Date/Time CRP 489.6 09/02/2022 01:35 AM No results found for: SEDRATE No results found for: DDIMER No results found for: FERRITIN No results found for: LDH No results found for: FIBRINOGEN No results found for requested labs within last 30 days. No results found for: COVID19 No results for input(s): VANCOTROUGH in the last 72 hours. Imaging Studies: RETROPERITONEAL ULTRASOUND OF THE KIDNEYS AND URINARY BLADDER 09/03/2022 IMPRESSION: 1. Simple midpole left renal cyst measuring 2.7 cm. 2. No hydronephrosis. Specimen Collected: 09/03/22 12:52 EDT Last Resulted: 09/03/22 13:03 EDT Cultures: Culture, Blood 1 [[id number]] Collected: 09/02/22619 Order Status: Completed Specimen: Blood Updated: 09/07/22724 Specimen Description .BLOOD Special Requests R FA 5ML Culture NO GROWTH 5 DAYS Culture, Blood 2 [[id number]] Collected: 09/02/22624 Order Status: Completed Specimen: Blood Updated: 09/07/22724 Specimen Description .BLOOD Special Requests R HAND 3ML Culture NO GROWTH 5 DAYS Culture, Blood 1 [[id number]] Collected: 09/02/22 0104 Order Status: Completed Specimen: Blood Updated: 09/07/22 0205 Specimen Description .BLOOD Special Requests RJUG, 10ML Culture NO GROWTH 5 DAYS MRSA DNA Probe, Nasal [[id number]] Collected: 09/02/22 0600 Order Status: Completed Specimen: Nasal Updated: 09/03/22 1028 Specimen Description .NASAL SWAB MRSA, DNA, Nasal NEGATIVE Comment: NEGATIVE: MRSA DNA not detected by nucleic acid amplification. Results should be used as an adjunct to nosocomial control efforts to identify patients needing enhanced precautions. The test is not intended to identify patients with staphylococcal infections. Results should not be used to guide or monitor treatment for MRSA infections. Culture, Urine [[id number]] Collected: 09/02/22 0138 Order Status: Completed Specimen: Urine, clean catch Updated: 09/03/22 0832 Specimen Description .CLEAN CATCH URINE Culture NO GROWTH Medications: spironolactone 25 mg Oral Daily ipratropium 0.5 mg-albuterol 2.5 mg 1 Dose Inhalation BID meropenem 1,000 mg IntraVENous Q12H insulin glargine 30 Units SubCUTAneous BID hydrALAZINE 25 mg Oral 3 times per day [Held by provider] amLODIPine 5 mg Oral Daily PARoxetine 10 mg Per NG tube Daily insulin lispro 0-16 Units SubCUTAneous Q6H RT [Held by provider] bumetanide 2 mg IntraVENous BID sodium chloride flush 5-40 mL IntraVENous 2 times per day heparin (porcine) 5,000 Units SubCUTAneous 3 times per day [facility] [place] CNP [employer] messaging OFFICE: Thank you for allowing us to participate in the care of this patient. Please call with questions. This note is created with the assistance of a speech recognition program. While intending to generate a document that actually reflects the content of the visit, the document can still have some errors including those of syntax and sound a like substitutions which may escape proof reading. In such instances, actual meaning can be extrapolated by contextual diversion. ATTESTATION: I have discussed the case, including pertinent history and exam findings with the SELLING SPECIALIST. I have evaluated the History, physical findings and pictures of the patient and the william elements of the encounter have been performed by me. I have reviewed the laboratory data, other diagnostic studies and discussed them with the SELLING SPECIALIST. I have updated the medical record where necessary. I agree with the assessment, plan and orders as documented by the SELLING SPECIALIST. In addition diagnostic and decision making elements include: Left perineal, thigh/gluteal necrotizing soft tissue infection status post surgical drainage 09/02/2022 Status post second look/I&D 09/03/2022 Status post irrigation and closure of left thigh and groin and buttock soft tissue defect 09/04/2022 Acute respiratory failure currently ventilator dependent Shock-resolved Diabetes mellitus with DKA currently on insulin drip Extreme obesity Acute kidney injury with unknown baseline creatinine COPD Elements of Medical Decision Making: Note: I have independently performed the steps listed below as part of the medical decision making and evaluation. Examined patient. Discussed with patient Discussed with referring physician or service Labs, medications, radiologic studies were reviewed with personal review of films Large amounts of data were reviewed Discussed with nursing Staff, urban and regional planner Infection Control and Prevention measures reviewed All prior entries were reviewed Reviewed Administration of medications as ordered Established Prognosis: Fair Discharge planning reviewed Reviewed need for follow up as outpatient. Lyndon Garcia MD. Pt. Restless on NIV and pulling on mask causing excessive alarming. SUZANNE Tran informed. Occupational Therapy Facility/Department: [facility]- [facility] Occupational Therapy Initial Assessment Name: Divina Amin : 1960 Date of Service: 09/15/2022 Copied from Emergency Medicine: Divina Amin is a 61 y.o. female who presents with wound. Patient is a transfer from outside facility. Patient was transferred for concern for necrotizing fasciitis of the left groin area. Patient also found in the outside facility to have DKA. She was given IV fluids and vancomycin from outside facility. On arrival patient is acutely altered. She is unable to give us any further history. Laboratory studies and imaging were reviewed from outside facility. History is limited due to patient condition. Discharge Recommendations: Patient would benefit from continued therapy after discharge OT Equipment Recommendations Equipment Needed: (Monitor as per pt progression) Patient Diagnosis(es): The primary encounter diagnosis was Necrotizing fasciitis (HCC). A diagnosis of Diabetic ketoacidosis without coma associated with other specified diabetes mellitus (HCC) was also pertinent to this visit. Past Medical History: has a past medical history of COPD (chronic obstructive pulmonary disease) (HCC), Diabetes (HCC), and Morbid obesity (HCC). Past Surgical History: has a past surgical history that includes Leg Surgery (Left, 09/03/2022); Leg Surgery (Left, 09/04/2022); and Leg Surgery (Left, 09/02/2022). Assessment Performance deficits / Impairments: Decreased functional mobility ;Decreased strength;Decreased endurance;Decreased ADL status;Decreased safe awareness;Decreased cognition;Decreased balance;Decreased ROM Assessment: Pt presents supine upon arrival and is agreeable to OT. Pt presents with increase fatigue, deficits in cognition with inconsistent abilities to follow commands, and balance deficits seated EOB. Pt requires MAX A x 2 for all bed mobility and varying assistance EOB MIN/MAX A to facilitate improved engagement during occupations. Pt requires max v/c for positioning EOB to increase safety and increase IND during seated balance with decreased carryover. Pt will benefit from cont OT to address deficits in ADLs, balance/endurance, cognition, functional transfers/mobility as appropriate, and safety through skilled interventions for safe return to PLOF. Prognosis: Good Decision Making: High Complexity REQUIRES OT FOLLOW-UP: Yes Activity Tolerance Activity Tolerance: Patient limited by fatigue;Treatment limited secondary to decreased cognition Activity Tolerance Comments: Pt presents lethargic this date with max v/c required to facilitate optimal engagement in meaningful occupations, pt requires redirection to tasks and cues with multiple repetitions with inconsistent carryover during session. Plan Occupational Therapy Plan Times Per Week: 3-5x/wk Current Treatment Recommendations: Strengthening, ROM, Functional mobility training, Endurance training, Cognitive reorientation, Safety education & training, Equipment evaluation, education, & procurement, Patient/Caregiver education & training, Self-Care / ADL, Balance training Restrictions Restrictions/Precautions Required Braces or Orthoses?: No Position Activity Restriction Other position/activity restrictions: Up with assist, 09/02, 09/03, 09/04 DEBRIDEMENT THIGH, GROIN, BUTTOCK, intubated 09/02-09/14 Subjective General Patient assessed for rehabilitation services?: Yes Family / Caregiver Present: No General Comment Comments: RN ok'd for OT, pt agreeable and reports no pain throughout session. Social/Functional History Social/Functional History Lives With: Daughter Type of Home: Trailer Home Layout: One level Home Access: Stairs to enter with rails Entrance Stairs - Number of Steps: 5 Entrance Stairs - Rails: (pt unable to recall) Bathroom Shower/Tub: Tub/Shower unit Bathroom Toilet: Standard Home Equipment: Walker, rolling, Wheelchair-manual (pt reports using walker at home however unsure of specifics regarding walker, wheelchair is utilized occasionallyreport) ADL Assistance: Needs assistance (unclear baseline; pt reports independence with ADLs and assistance getting in and out of shower) Homemaking Assistance: Independent Homemaking Responsibilities: Yes (daughter cooks, cleans, and completes laundry, pt completes light meal prep. Pt reports will occasionally go to grocery store however only with daughter) Ambulation Assistance: Independent Transfer Assistance: Independent Active Senior Controls Engineer: No Patient's Senior Controls Engineer Info: daughter Mode of Transportation: SUV Occupation: On disability Leisure & Hobbies: TV, music Additional Comments: Pt is a questionable historian based on impaired cognition; above information was obtained by pt. Pt reports daughter works and does not have / assistance upon discharge. Safety Devices Type of Devices: Call light within reach;Nurse notified;Left in bed Restraints Restraints Initially in Place: No Bed Mobility Training Bed Mobility Training: Yes Overall Level of Assistance: Maximum assistance;Assist X2 (to progress trunk and BLE during transitional movements) Interventions: Safety awareness training;Verbal cues;Tactile cues (Education provided on positioning and B hand placement to facilitate improved IND seated EOB with inconsistent carryover and max v/c required for cont initiation of B hand placement) Supine to Sit: Maximum assistance;Assist X2 Sit to Supine: Maximum assistance;Assist X2 Scooting: Total assistance (Pt unable to weight shift B hips for optimal seated positioning EOB secondary to balance and fatigue deficits) Balance Sitting: Impaired (Pt ranging from MIN/MAX support with EOB dynamic/static balance during meaningful activity. Pt demonstrates poor carryover with B hand placement to facilitate improved IND with MAX v/c to encourage cont trunk flexion d/t frequent posterior leaning.) Transfer Training Transfer Training: No (Secondary to balance, fatigue, and cognitive deficits, pt is not safe to attempt transfers at this time) AROM: Generally decreased, functional (Upon sitting pt presents with decreased AROM BUE, pt completes in supine positioning with HOB elevated during functional activity B shoulder flexion 0-90, B elbow, wrist, hand WFL. Pt reports pt limitations are weaknes/fatigue) PROM: Generally decreased, functional (L shoulder flexion 0-130*, R shoulder flexion 0-145*) Strength: Generally decreased, functional (B shoulder flexion/extension 2+/5, B elbow flexion/extension 3+/5, B hands 4-/5) Coordination: Within functional limits Tone: Normal Sensation: Impaired (Chronic tingling B feet) ADL Feeding: Supervision;Setup Grooming: Supervision;Increased time to complete;Setup Grooming Skilled Clinical Factors: completes facial grooming UE Bathing: Maximum assistance;Setup;Increased time to complete LE Bathing: Dependent/Total;Setup;Increased time to complete;Adaptive equipment UE Dressing: Maximum assistance;Increased time to complete;Setup LE Dressing: Dependent/Total;Setup;Increased time to complete;Adaptive equipment Toileting: Dependent/Total;Setup;Increased time to complete Additional Comments: Pt to require increase assistance secondary to cognitive, balance, and fatigue deficits Vision Vision: Impaired (owns glasses however does not wear) Hearing Hearing: Within functional limits Cognition Overall Cognitive Status: Exceptions Arousal/Alertness: Inconsistent responses to stimuli Following Commands: Follows one step commands with repetition;Inconsistently follows commands Attention Span: Difficulty attending to directions Safety Judgement: Decreased awareness of need for assistance;Decreased awareness of need for safety Problem Solving: Assistance required to generate solutions;Assistance required to implement solutions;Decreased awareness of errors Insights: Decreased awareness of deficits Initiation: Requires cues for all Sequencing: Requires cues for all Cognition Comment: Able to follow 25% of commands this date with increase cues and time Orientation Overall Orientation Status: Impaired Orientation Level: Oriented to person;Oriented to situation;Disoriented to time;Disoriented to place Education Given To: Patient Education Provided: Role of Therapy;Precautions;Energy Conservation;Fall Prevention Strategies;Plan of Care;ADL Adaptive Strategies;Orientation Education Provided Comments: Pt educated on all aspects of safety during session, orientation to place and POC, education provided on cont of OT to increase IND, cont education will benefit the pt to facilitate improved carryover Education Method: Verbal;Demonstration Barriers to Learning: Cognition Education Outcome: Continued education needed Hand Dominance Hand Dominance: Right AM-PAC Score AM-PAC Inpatient Daily Activity Raw Score: 11 (09/15/22 1354) AM-PAC Inpatient ADL T-Scale Score : 29.04 (09/15/22 1354) ADL Inpatient CMS 0-100% Score: 70.42 (09/15/22 1354) ADL Inpatient CMS G-Code Modifier : CL (09/15/221353) Goals Short Term Goals Time Frame for Short Term Goals: by discharge Short Term Goal 1: demo MOD I with feeding/grooming Short Term Goal 2: demo MIN A with UB bathing/dressing Short Term Goal 3: demo static/dynamic sitting balance CGA for 5 minutes to facillitate improved IND during meaningful activity Short Term Goal 4: follow 1 step commands 100% of trial for increase IND during ADLs Short Term Goal 5: demo MAX A for during bed mobility to facilitate improved IND during meaningful occupations Short Term Goal 6: demo BUE AAROM x 10 reps across all affected joints to increase functional performance in ADLs Short Term Goal 7: Please notify OTR to update goals as appropriate Therapy Time Individual Concurrent Group Co-treatment Time In 1154 Time Out 1227 Minutes 33 Timed Code Treatment Minutes: 29 Minutes Traci Perry S/OT Images from the original note were not included. [facility] Progress Note Divina Amin Date: 09/15/2022 LOS: 13 Reason for F/U : Necrotizing soft tissue infection Impression : Left perineal, thigh/gluteal necrotizing soft tissue infection status post surgical drainage 09/02/2022 Status post second look/I&D 09/03/2022 Status post irrigation and closure of left thigh and groin and buttock soft tissue defect 09/04/2022 Acute respiratory failure currently ventilator dependent Shock-resolved Diabetes mellitus with DKA currently on insulin drip Extreme obesity Acute kidney injury with unknown baseline creatinine COPD Recommendations: The patient continues on antimicrobial therapy with meropenem for necrotizing soft tissue infection-End date 09/16/22 for a total of 14 days of treatment She was previously on linezolid which was discontinued 09/07/2022 Continue fluconazole which was added 09/07/2022 Continue local wound care Infection Control Recommendations: [place] precautions Discharge Planning: Estimated Length of IV antimicrobials:09/16/22 Patient will need Midline Catheter Insertion/ PICC line Insertion: No Patient will need: Home IV , Infusion Center, SNF, LTAC: Undetermined Patient will need outpatient wound care: Yes Medical Decision making / Summary of Stay: Divina Amin is a 61 y.o.-year-old female who was initially admitted on 09/02/2022. Divina is a morbidly obese diabetic female with also a history of asthma/COPD and is currently intubated and the history is obtained from the daughter who is at bedside. It is my understanding that Divina has had a history of boils in her left groin area which have previously been drained in the past. She has certainly not needed to be hospitalized for these and she had been complaining of a boil/infection in her left groin for about a week at home. The patient ended up being started on Bactrim about a day ago but the daughter after getting home from work in the late afternoon yesterday found that Divina was out of it and was having difficulty ambulating going to the bathroom. She ended up calling EMS and the patient was taken to an outlying facility in [place] where work-up showed some leukocytosis, left groin soft tissue infection with some soft tissue gas and the patient was hypotensive. The patient received fluid resuscitation and was transferred here where blood sugars were elevated and the patient was started on the DKA protocol. The patient became more confused and was seen by the general surgery team started on antimicrobial therapy with meropenem and linezolid due to history of a penicillin allergy. The patient had an obvious wound on the left perineum/upper thigh that was protruding necrotic and fluctuant. The patient was taken to the operating room this morning underwent incision and drainage of her left thigh/left groin and buttocks abscess/soft tissue infection and there was a sinclair necrotizing tissue appreciated during the surgery. The margins included the left major labia majora, left upper thigh, left inferior groin, left perineum/gluteal area. The patient is currently in the intensive care unit and I was asked to evaluate and help with antibiotic choice. The patient was taken to the operating room 09/03/2022 and underwent second look/debridement procedure of the left groin/thigh area. The patient was taken to the operating room 09/04/2022 and underwent irrigation and closure of the left thigh groin buttock and soft tissue defect after the patient was found to have a clean wound base and there was placement of 2 flat JESSICA drains with multilayer closure. Current Evaluation:09/15/2022 BP (!) 141/74 Pulse 91 Temp 98.6 F (37 C) (Bladder) Resp 23 Ht 5' 2 (1.575 m) Wt 297 lb 2.9 oz (134.8 kg) SpO2 97% BMI 54.35 kg/m Temperature Range: Temp: 98.6 F (37 C) Temp Av.2 F (37.3 C) Min: 98.6 F (37 C) Max: 99.7 F (37.6 C) Patient evaluated in the ICU Afebrile VS stable HTN The patient was awake and alert upon evaluation. She has some residual sore throat s/p extubation on 09/14/22. Medications reviewed: Diflucan completed on 09/12/22 Meropenem continues for necrotizing soft tissue infection Bumex and free water given for VELMA with hypernatremia per Nephrology. Abdominal drains in place with serosanguinous drainage noted. CT chest on 09/09/22 showed small to moderate bilateral pleural effusions with adjacent atelectasis and patchy opacities in the MICHAEL. Sputum culture on 09/11 is showing light growth yeast. FMS is in place for liquid stool No other acute issues noted. Discussed with RN Labs Reviewed 09/15/2022 BUN:64-->60-->61-->55 Cr: 2.1-->1.7-->1.5-->1.5 Na: 151-->148-->145 WBC: 12.1-->13.9-->11.1-->12.5 Hgb: 12.9-->12.2-->11.0-->11.6 Plt: 235-->379-->214-->241-->351 Cultures: Results Procedure Component Value Units Date/Time Culture, Respiratory [[id number]] (Abnormal) Collected: 09/11/22 0018 Order Status: Completed Specimen: Sputum Expectorated Updated: 09/13/22 1126 Specimen Description .EXPECTORATED SPUTUM Direct Exam >10, <25 NEUTROPHILS/LPF < 10 EPITHELIAL CELLS/LPF FEW YEAST Culture Chasity albicans/dubliniensis MODERATE GROWTH NO NORMAL CITLALI Culture, Blood 2 [[id number]] Collected: 09/02/22 0625 Order Status: Completed Specimen: Blood Updated: 09/07/22 07 Specimen Description .BLOOD Special Requests R HAND 3ML Culture NO GROWTH 5 DAYS Culture, Blood 1 [[id number]] Collected: 09/02/22 0620 Order Status: Completed Specimen: Blood Updated: 09/07/22724 Specimen Description .BLOOD Special Requests R FA 5ML Culture NO GROWTH 5 DAYS MRSA DNA Probe, Nasal [[id number]] Collected: 09/02/22 0600 Order Status: Completed Specimen: Nasal Updated: 09/03/22 1028 Specimen Description .NASAL SWAB MRSA, DNA, Nasal NEGATIVE Comment: NEGATIVE: MRSA DNA not detected by nucleic acid amplification. Results should be used as an adjunct to nosocomial control efforts to identify patients needing enhanced precautions. The test is not intended to identify patients with staphylococcal infections. Results should not be used to guide or monitor treatment for MRSA infections. Culture, Urine [[id number]] Collected: 09/02/22 0138 Order Status: Completed Specimen: Urine, clean catch Updated: 09/03/22 0832 Specimen Description .CLEAN CATCH URINE Culture NO GROWTH Culture, Blood 1 [[id number]] Collected: 09/02/22 0104 Order Status: Completed Specimen: Blood Updated: 09/07/22 0205 Specimen Description .BLOOD Special Requests RJUG, 10ML Culture NO GROWTH 5 DAYS Culture, Blood 1 [[id number]] Collected: 09/02/22 0030 Order Status: Canceled Specimen: Blood Review of Systems Constitutional: Negative. HENT: Positive for sore throat. Eyes: Negative. Respiratory: Negative. Cardiovascular: Negative. Gastrointestinal: Positive for diarrhea. Endocrine: Negative. Musculoskeletal: Negative. Skin: Surgical sites present Allergic/Immunologic: Negative. Neurological: Negative. Hematological: Negative. Psychiatric/Behavioral: Negative. All other systems reviewed and are negative. Physical Examination : Physical Exam Vitals and nursing note reviewed. Constitutional: Appearance: Normal appearance. She is well-developed. She is obese. Interventions: She is sedated. She is not intubated. HENT: Head: Normocephalic and atraumatic. Nose: Nose normal. Mouth/Throat: Mouth: Mucous membranes are moist. Eyes: Pupils: Pupils are equal, round, and reactive to light. Cardiovascular: Rate and Rhythm: Regular rhythm. Heart sounds: Normal heart sounds. Pulmonary: Effort: Pulmonary effort is normal. She is not intubated. Breath sounds: Normal breath sounds. Abdominal: General: Bowel sounds are normal. Palpations: Abdomen is soft. Comments: Surgical site Musculoskeletal: General: Normal range of motion. Cervical back: Neck supple. Skin: General: Skin is warm and dry. Capillary Refill: Capillary refill takes less than 2 seconds. Comments: There is a dressing in the perineal area which was not removed Neurological: General: No focal deficit present. Mental Status: She is alert and oriented to person, place, and time. Psychiatric: Mood and Affect: Mood normal. Behavior: Behavior normal. Thought Content: Thought content normal. Judgment: Judgment normal. Laboratory data: I have independently reviewed the followinglabs: CBC with Differential: Recent Labs 09/14/22 0317 09/15/22 0530 WBC 11.1 12.5* HGB 11.0* 11.6* HCT 34.7* 37.7 PLT 241 351 LYMPHOPCT 29 14* MONOPCT 8 8 BMP: Recent Labs 09/14/22 0317 09/14/22 1810 NA 145* 147* K 3.7 3.5* CL 106 105 CO2 29 28 BUN 61* 55* CREATININE 1.5* 1.5* Hepatic Function Panel: No results for input(s): PROT, LABALBU, BILIDIR, IBILI, BILITOT, ALKPHOS, ALT, AST in the last 72 hours. No results found for: PROCAL Lab Results Component Value Date/Time CRP 489.6 09/02/2022 01:35 AM No results found for: SEDRATE No results found for: DDIMER No results found for: FERRITIN No results found for: LDH No results found for: FIBRINOGEN No results found for requested labs within last 30 days. No results found for: COVID19 No results for input(s): VANCOTROUGH in the last 72 hours. Imaging Studies: RETROPERITONEAL ULTRASOUND OF THE KIDNEYS AND URINARY BLADDER 09/03/2022 IMPRESSION: 1. Simple midpole left renal cyst measuring 2.7 cm. 2. No hydronephrosis. Specimen Collected: 09/03/22 12:52 EDT Last Resulted: 09/03/22 13:03 EDT Cultures: Culture, Blood 1 [[id number]] Collected: 09/02/22 0620 Order Status: Completed Specimen: Blood Updated: 09/07/22724 Specimen Description .BLOOD Special Requests R FA 5ML Culture NO GROWTH 5 DAYS Culture, Blood 2 [[id number]] Collected: 09/02/22624 Order Status: Completed Specimen: Blood Updated: 09/07/22724 Specimen Description .BLOOD Special Requests R HAND 3ML Culture NO GROWTH 5 DAYS Culture, Blood 1 [[id number]] Collected: 09/02/22 0104 Order Status: Completed Specimen: Blood Updated: 09/07/22 0205 Specimen Description .BLOOD Special Requests RJUG, 10ML Culture NO GROWTH 5 DAYS MRSA DNA Probe, Nasal [[id number]] Collected: 09/02/22 0600 Order Status: Completed Specimen: Nasal Updated: 09/03/22 1028 Specimen Description .NASAL SWAB MRSA, DNA, Nasal NEGATIVE Comment: NEGATIVE: MRSA DNA not detected by nucleic acid amplification. Results should be used as an adjunct to nosocomial control efforts to identify patients needing enhanced precautions. The test is not intended to identify patients with staphylococcal infections. Results should not be used to guide or monitor treatment for MRSA infections. Culture, Urine [[id number]] Collected: 09/02/22 0138 Order Status: Completed Specimen: Urine, clean catch Updated: 09/03/22 0832 Specimen Description .CLEAN CATCH URINE Culture NO GROWTH Medications: spironolactone 25 mg Oral Daily ipratropium 0.5 mg-albuterol 2.5 mg 1 Dose Inhalation Q4H WA RT [Held by provider] chlordiazePOXIDE 10 mg Oral TID oxyCODONE 15 mg Oral Q6H meropenem 1,000 mg IntraVENous Q12H insulin glargine 30 Units SubCUTAneous BID hydrALAZINE 25 mg Oral 3 times per day [Held by provider] amLODIPine 5 mg Oral Daily PARoxetine 10 mg Per NG tube Daily insulin lispro 0-16 Units SubCUTAneous Q6H RT lansoprazole 30 mg Per G Tube QAM AC [Held by provider] bumetanide 2 mg IntraVENous BID sodium chloride flush 5-40 mL IntraVENous 2 times per day heparin (porcine) 5,000 Units SubCUTAneous 3 times per day [facility] [place] CNP [employer] messaging OFFICE: Thank you for allowing us to participate in the care of this patient. Please call with questions. This note is created with the assistance of a speech recognition program. While intending to generate a document that actually reflects the content of the visit, the document can still have some errors including those of syntax and sound a like substitutions which may escape proof reading. In such instances, actual meaning can be extrapolated by contextual diversion. ATTESTATION: I have discussed the case, including pertinent history and exam findings with the SELLING SPECIALIST. I have evaluated the History, physical findings and pictures of the patient and the william elements of the encounter have been performed by me. I have reviewed the laboratory data, other diagnostic studies and discussed them with the SELLING SPECIALIST. I have updated the medical record where necessary. I agree with the assessment, plan and orders as documented by the SELLING SPECIALIST. In addition diagnostic and decision making elements include: Left perineal, thigh/gluteal necrotizing soft tissue infection status post surgical drainage 09/02/2022 Status post second look/I&D 09/03/2022 Status post irrigation and closure of left thigh and groin and buttock soft tissue defect 09/04/2022 Acute respiratory failure currently ventilator dependent Shock-resolved Diabetes mellitus with DKA currently on insulin drip Extreme obesity Acute kidney injury with unknown baseline creatinine COPD Elements of Medical Decision Making: Note: I have independently performed the steps listed below as part of the medical decision making and evaluation. Examined patient. Discussed with patient Discussed with referring physician or service Labs, medications, radiologic studies were reviewed with personal review of films Large amounts of data were reviewed Discussed with nursing Staff, urban and regional planner Infection Control and Prevention measures reviewed All prior entries were reviewed Reviewed Administration of medications as ordered Established Prognosis: Guarded Discharge planning reviewed Reviewed need for follow up as outpatient. Lyndon Garcia MD. Renal Progress Note Patient : Divina Amin; 61 y.o. Location: Attending: Nader Smith MD Admit Date: 09/02/2022 Hospital Day: 13 Subjective: Extubated yesterday, doing well since then. Oral intake being advanced. Drinking at least 3-4, 12 ounce glasses of water a day. Sodium has gone up slightly to 147 indicative of free water losses likely from her skin. Also having diarrhea leading to additional losses. Intravenous meropenem continues, wound care continues, still has drains from the gluteal area. Hunter catheter in place to prevent soiling and worsening of her fasciitis in the gluteal area. No shortness of breath orthopnea. Weights not being done accurately. Intake output record not reflective of insensible losses which are going to be large given body size and BMI of 54. Clinically does not show any signs of fluid overload. Labs today show sodium 147 potassium 3.5 chloride 105 bicarb 28, BUN 25 creatinine 1.5, glucose 176, calcium 9.0, hemoglobin 11.6 white count 12.5 platelets 351 History reviewed Known history of type 2 diabetes, super morbid obesity, hypertension, has been on metformin, Glucotrol and insulin at home. Presented to the hospital with pain and redness and swelling involving the gluteal area and groin. Found to have necrotizing fasciitis transferred to [facility] for further care. Creatinine on presentation was 1.5 and has been in the 1.5-1.7 range. Baseline creatinine not available. Nephrology consulted for chronic kidney disease. Since then she has undergone debridement and placement of wound VAC to left perineal thigh and gluteal necrotizing soft tissue infection. Drain has been placed. Local wound care continues. Patient has been hypernatremic with sodiums in the 1 45-1 50 range, indicative of free water losses. Work-up so far shows normal complements, no renal asymmetry. Intravenous linezolid and meropenem has been used discharge antibiotics. Creatinine has remained stable as written above. Outpatient Medications: Medications Prior to Admission: pravastatin (PRAVACHOL) 20 MG tablet, Take 1 tablet by mouth daily albuterol sulfate HFA (VENTOLIN HFA) 108 (90 Base) MCG/ACT inhaler, Inhale 2 puffs into the lungs 4 times daily as needed for Wheezing hydroCHLOROthiazide (HYDRODIURIL) 25 MG tablet, Take 1 tablet by mouth daily metFORMIN (GLUCOPHAGE-XR) 500 MG extended release tablet, Take 1 tablet by mouth 2 times daily PARoxetine (PAXIL) 10 MG tablet, Take 1 tablet by mouth every morning lisinopril (PRINIVIL;ZESTRIL) 5 MG tablet, Take 1 tablet by mouth daily glipiZIDE (GLUCOTROL) 10 MG tablet, Take 1 tablet by mouth 2 times daily insulin NPH (HUMULIN N;NOVOLIN N) 100 UNIT/ML injection vial, Inject 30 Units into the skin in the morning and 30 Units in the evening. Current Medications: Scheduled Meds: spironolactone 25 mg Oral Daily ipratropium 0.5 mg-albuterol 2.5 mg 1 Dose Inhalation Q4H WA RT [Held by provider] chlordiazePOXIDE 10 mg Oral TID oxyCODONE 15 mg Oral Q6H meropenem 1,000 mg IntraVENous Q12H insulin glargine 30 Units SubCUTAneous BID hydrALAZINE 25 mg Oral 3 times per day [Held by provider] amLODIPine 5 mg Oral Daily PARoxetine 10 mg Per NG tube Daily insulin lispro 0-16 Units SubCUTAneous Q6H RT lansoprazole 30 mg Per G Tube QAM AC [Held by provider] bumetanide 2 mg IntraVENous BID sodium chloride flush 5-40 mL IntraVENous 2 times per day heparin (porcine) 5,000 Units SubCUTAneous 3 times per day Continuous Infusions: IV infusion builder dexmedetomidine Stopped (09/14/22 1427) dextrose PRN Meds: acetaminophen, fentanNYL OR fentanNYL, glucose, dextrose bolus OR dextrose bolus, glucagon (rDNA), dextrose, sodium chloride flush, dextrose bolus, sodium phosphate IVPB OR sodium phosphate IVPB OR sodium phosphate IVPB, polyethylene glycol, albuterol Input/Output: I/O last 3 completed shifts: In: 4170.5 [P.O.:1425; I.V.:554.6; NG/GT:1796; IV Piggyback:394.9] Out: 4780 [Urine:4215; Drains:65; Stool:500]. No data found. Vital Signs: Temperature: Temp: 98.6 F (37 C) TMax: Temp (24hrs), Av.2 F (37.3 C), Min:98.6 F (37 C), Max:99.7 F (37.6 C) Respirations: Respirations: 23 Pulse: Pulse: 91 BP: BP: (!) 141/74 BP Range: Systolic (24hrs), Av , Min:74 , Max:151 Diastolic (24hrs), Av, Min:53, Max:118 Physical Examination: General: AAO x 3, speaking in full sentences, no accessory muscle use. HEENT: Atraumatic, normocephalic, no throat congestion, moist mucosa. Eyes: Pupils equal, round and reactive to light, EOMI. Neck: No JVD, no thyromegaly, no lymphadenopathy. Chest: Bilateral vesicular breath sounds, no rales or wheezes. Cardiac: S1 S2 RR, no murmurs, gallops or rubs, JVP not raised. Abdomen: Soft, non-tender, no masses or organomegaly, BS audible. : No suprapubic or flank tenderness. Neuro: AAO x 3, No FND. SKIN: No rashes, good skin turgor. Extremities: No edema, palpable peripheral pulses, no calf tenderness. Labs: Recent Labs 09/13/22 0647 09/14/22 03109/15/22 0530 WBC 13.9* 11.1 12.5* RBC 3.87* 3.52* 3.93* HGB 12.2 11.0* 11.6* HCT 37.7 34.7* 37.7 MCV 97.4 98.6 95.9 MCH 31.5 31.3 29.5 MCHC 32.4 31.7 30.8 RDW 12.6 12.4 12.1 PLT 379 241 351 MPV 11.6 11.7 11.6 BMP: Recent Labs 09/13/22 0647 09/14/22 0317 09/14/22 1810 NA 148* 145* 147* K 4.1 3.7 3.5* CL 107 106 105 CO2 29 29 28 BUN 60* 61* 55* CREATININE 1.7* 1.5* 1.5* GLUCOSE 208* 162* 176* CALCIUM 8.4* 8.7 9.0 Phosphorus: No results for input(s): PHOS in the last 72 hours. Magnesium: No results for input(s): MG in the last 72 hours. Albumin: No results for input(s): LABALBU in the last 72 hours. BNP: No results found for: BNP YASH: No results found for: YASH SPEP: Lab Results Component Value Date/Time PROT 6.2 09/10/2022 04:35 AM UPEP: No results found for: LABPE C3: Lab Results Component Value Date/Time C3 128 09/04/2022 06:01 PM C4: Lab Results Component Value Date/Time C4 19 09/04/2022 06:01 PM MPO ANCA: No results found for: MPO PR3 ANCA: No results found for: PR3 Anti-GBM: No results found for: GBMABIGG Hep BsAg: No results found for: HEPBSAG Hep C AB: No results found for: HEPCAB Urinalysis/Chemistries: Lab Results Component Value Date/Time NITRU NEGATIVE 09/02/2022 01:37 AM COLORU Yellow 09/02/2022 01:37 AM PHUR 5.5 09/02/2022 01:37 AM WBCUA 0 TO 2 09/02/2022 01:37 AM RBCUA 20 TO 50 09/02/2022 01:37 AM MUCUS 1+ 09/02/2022 01:37 AM SPECGRAV 1.023 09/02/2022 01:37 AM LEUKOCYTESUR NEGATIVE 09/02/2022 01:37 AM UROBILINOGEN Normal 09/02/2022 01:37 AM BILIRUBINUR NEGATIVE 09/02/2022 01:37 AM GLUCOSEU 3+ 09/02/2022 01:37 AM KETUA LARGE 09/02/2022 01:37 AM Urine Sodium: Lab Results Component Value Date/Time DEANGELO 46 09/04/2022 06:02 PM Urine Potassium: No results found for: KUR Urine Chloride: No results found for: CLUR Urine Osmolarity: No results found for: OSMOU Urine Protein: No components found for: TOTALPROTEIN, URINE Urine Creatinine: Lab Results Component Value Date/Time LABCREA 94.3 09/04/2022 06:02 PM Urine Eosinophils: No components found for: UEOS Radiology: CXR: Assessment: 1. Acute Kidney Injury: Secondary ischemic ATN complicated by intravascular depletion insensible losses baseline better to be around 1.5, peaked up to 3.3 now resolving down to 1.5 2. Hypernatremia due to insensible losses both in the skin and diarrheal losses and decreased oral intake, sodium in the 145-150 range 3. Necrotizing fasciitis involving left gluteal area and groin status post multiple I&D and debridement procedures on antibiotics currently has a wound VAC 4. Respiratory failure resolved 5. Hypertension with fluctuating blood pressures 6. Persistent hypokalemia 7. Super morbid obesity Plan: 1. Encourage free water intake although I suspect that is colonic will be enough to cover for insensible losses and diarrhea losses and free water 2. Start one third saline at 100 mm an hour 3. Start Aldactone 25 daily 4. Monitor renal function 5. We will follow with you Nutrition Please ensure that patient is on a renal diet/TF. Avoid nephrotoxic drugs/contrast exposure. We will continue to follow along with you. INTENSIVE CARE UNIT Resident Physician Progress Note Patient - Divina Amin Date of Admission - 09/02/2022 12:12 AM Date of Evaluation - 09/15/2022 Room and Bed Number - 3011/3011-01 Hospital Day - 13 Chief Complaint Patient presents with Altered Mental Status SUBJECTIVE: HISTORY OF PRESENT ILLNESS: Divina Amin is a 61 y.o. with a past medical history of type 2 diabetes, asthma, COPD and obesity. [facility] concerns for necrotizing fasciitis. Patient was initially alert and oriented x4 at [facility], she was noted to have an elevated WBC count and abscess in the left groin which showed subcutaneous gas. Patient received 3 L of crystalloid fluids and a dose of vancomycin prior to transfer. In our emergency department the patient was altered ANO x0, VBG showed pH of 6.79, WBC count of 26, blood glucose in the 500s, beta hydroxybutyrate of 10, bicarb of less than 6. Patient was immediately evaluated by surgical team and another 2 L of fluids was given. Patient was initially started on DKA protocol in the emergency department. 1 amp of bicarb was given to her. On initial icu evaluation she was altered, not answering questions and not responding fully. Seem to be in acute distress. patient on a continuous bicarb drip, insulin drip , meropenem and linezolid by surgery team due to history of penicillin allergy. potassium was 5.2. Underwent debridement 09/02/2022, intubated for procedure Started on DKA protocol Repeat debridement 09/03. Repeat washout and closure on 09/04 Linezolid discontinued on 09/07 OVERNIGHT EVENTS: Patient extubated yesterday. Tolerated overnight. Was on BiPAP overnight. Nephrology continues to follow patient recommended Diuril 2 doses yesterday. UOP 2.6L (0.8 cc/kg/hr) Drain output 40 cc over 24 hours. Stool: 500cc Net: +8.8L BP: 141/74 MAP: 64 HR: 98 Tmax: 99.1 BiPAP overnight however refused and took it off BUN/Cr: 55/1.5 Na: 147 K: 3.5, replaced WBC: 12.5 Hb: 11.6 ID: meropenem and fluconazole F.A.S.T. M. H.U.G.S. B.I.D. Feeding Diet: Regular diet Fluids: 3 water 300 mg every 4 hours. Family: will update when here Analgesic: Jamila 10 mg every 6 hours, fentanyl 50/100 every 2 hours as needed. Sedation: Off sedation Thrombo-prophylaxis: [x] Enoxaparin, [] Unfract. Heparin Subcutaneously, [] EPC Cuffs Mobility: PT/OT Heads up: NA Ulcer prophylaxis: [] PPI Agent, [] [id number], [] Sucralfate, [] Other: Glycemic control: Lantus 30 units twice daily, lispro high-dose correction Spontaneous breathing trial: Daily Bowel regimen/urine output: GlycoLax daily urine, urine output 0.8 cc per kilogram per hour Indwelling catheter/lines: FMS, Hunter for wound care, JESSICA x1 De-escalation: wean sedation as tolerated OBJECTIVE: VITAL SIGNS: Patient Vitals for the past 8 hrs: BP Temp Temp src Pulse Resp SpO2 09/15/22 0700 (!) 141/74 -- -- (!) 101 19 92 % 09/15/22 0607 (!) 146/71 -- -- 92 19 95 % 09/15/22 0600 -- -- -- 94 22 93 % 09/15/22 0500 (!) 151/61 -- -- 90 17 93 % 09/15/22 0405 (!) 140/98 98.6 F (37 C) Bladder 97 22 92 % 09/15/22 0310 (!) 150/60 -- -- 100 19 93 % 09/15/22 0200 (!) 144/71 98.8 F (37.1 C) Bladder (!) 101 16 94 % 09/15/22 0100 (!) 144/118 -- -- (!) 104 23 92 % 09/15/22 0005 (!) 151/60 99.1 F (37.3 C) Bladder (!) 105 23 93 % 09/15/22 0000 -- -- -- (!) 102 17 92 % Last Body weight: Wt Readings from Last 3 Encounters: 09/02/22 297 lb 2.9 oz (134.8 kg) Body Mass Index : Body mass index is 54.35 kg/m . Tmax over 24 hours: Temp (24hrs), Av.3 F (37.4 C), Min:98.6 F (37 C), Max:99.7 F (37.6 C) Ins/Outs: In: 2090.2 [P.O.:1425; I.V.:166.2; NG/GT:300] Out: 3145 [Urine:2605; Drains:40] PHYSICAL EXAM: Constitutional: awake and alert, following commands in all 4 extremities EENT: PERRLA, sclera clear, anicteric, oropharynx clear, no lesions, neck supple with midline trachea. Neck: Supple, symmetrical, trachea midline, no adenopathy, thyroid symmetric, no jvd skin normal Respiratory: clear to auscultation, no wheezes or rales and unlabored breathing. No intercostal tenderness Cardiovascular: regular rate and rhythm, normal S1, S2, no murmur noted and 2+ pulses throughout Abdomen: Debrided lower abdominal wound, JESSICA to left thigh Extremities: peripheral pulses normal, no pedal edema, no clubbing or cyanosis MEDICATIONS: Scheduled Meds: ipratropium 0.5 mg-albuterol 2.5 mg 1 Dose Inhalation Q4H WA RT [Held by provider] chlordiazePOXIDE 10 mg Oral TID oxyCODONE 15 mg Oral Q6H meropenem 1,000 mg IntraVENous Q12H insulin glargine 30 Units SubCUTAneous BID hydrALAZINE 25 mg Oral 3 times per day [Held by provider] amLODIPine 5 mg Oral Daily PARoxetine 10 mg Per NG tube Daily insulin lispro 0-16 Units SubCUTAneous Q6H RT lansoprazole 30 mg Per G Tube QAM AC [Held by provider] bumetanide 2 mg IntraVENous BID sodium chloride flush 5-40 mL IntraVENous 2 times per day heparin (porcine) 5,000 Units SubCUTAneous 3 times per day Continuous Infusions: dexmedetomidine Stopped (09/14/22 1427) dextrose PRN Meds: acetaminophen, 650 mg, Q4H PRN fentanNYL, 50 mcg, Q2H PRN Or fentanNYL, 100 mcg, Q2H PRN glucose, 4 tablet, PRN dextrose bolus, 125 mL, PRN Or dextrose bolus, 250 mL, PRN glucagon (rDNA), 1 mg, PRN dextrose, , Continuous PRN sodium chloride flush, 5-40 mL, PRN dextrose bolus, 125 mL, PRN sodium phosphate IVPB, 10 mmol, PRN Or sodium phosphate IVPB, 15 mmol, PRN Or sodium phosphate IVPB, 20 mmol, PRN polyethylene glycol, 17 g, Daily PRN albuterol, 2.5 mg, As Directed RT PRN SUPPORT DEVICES: [x] Ventilator [] BIPAP [] Nasal Cannula [] Room Air VENT SETTINGS (Comprehensive) (if applicable): Vent Information Ventilator ID: [id number] Equipment Changed: HME, Expiratory Filter Ventilator Initiate: Yes Ventilator Discontinue: Yes Vent Mode: AC/PRVC Additional Respiratory Assessments Pulse: (!) 101 Respirations: 19 SpO2: 92 % End Tidal CO2: 46 (%) Position: Semi-Multani's Humidification Source: HME Circuit Condensation: Drained Cuff Pressure (cm H2O): (MOV) Swallow: Normal - able to swallow solids Lab Results Component Value Date/Time MODE [facility] 09/12/2022 04:22 AM ABGs: No results found for: PH, PCO2, PO2, HCO3, O2SAT DATA: Complete Blood Count: Recent Labs 09/13/22 0647 09/14/22 0317 09/15/22 0530 WBC 13.9* 11.1 12.5* RBC 3.87* 3.52* 3.93* HGB 12.2 11.0* 11.6* HCT 37.7 34.7* 37.7 MCV 97.4 98.6 95.9 MCH 31.5 31.3 29.5 MCHC 32.4 31.7 30.8 RDW 12.6 12.4 12.1 PLT 379 241 351 MPV 11.6 11.7 11.6 Last 3 Blood Glucose: Recent Labs 09/13/22 0647 09/14/22 0317 09/14/22 1810 GLUCOSE 208* 162* 176* PT/INR: Lab Results Component Value Date/Time PROTIME 17.5 09/02/2022 01:35 AM INR 1.5 09/02/2022 01:35 AM PTT: Lab Results Component Value Date/Time APTT 36.0 09/02/2022 01:35 AM Basic Metabolic Profile: Recent Labs 09/13/22 0647 09/14/2231609/14/22 1810 NA 148* 145* 147* K 4.1 3.7 3.5* CL 107 106 105 CO2 29 29 28 BUN 60* 61* 55* CREATININE 1.7* 1.5* 1.5* GLUCOSE 208* 162* 176* Liver Function: No results for input(s): PROT, LABALBU, ALT, AST, GGT, ALKPHOS, BILITOT in the last 72 hours. Magnesium: Lab Results Component Value Date/Time MG 2.0 09/11/2022 03:28 AM MG 1.9 09/05/2022 04:23 AM MG 1.8 09/05/2022 12:22 AM Phosphorus: Lab Results Component Value Date/Time PHOS 3.7 09/05/2022 04:23 AM PHOS 3.2 09/05/2022 12:22 AM PHOS 3.5 09/04/2022 08:09 PM Ionized Calcium: Lab Results Component Value Date/Time CAION 1.25 09/02/2022 04:10 AM Urinalysis: Lab Results Component Value Date/Time NITRU NEGATIVE 09/02/2022 01:37 AM COLORU Yellow 09/02/2022 01:37 AM PHUR 5.5 09/02/2022 01:37 AM WBCUA 0 TO 2 09/02/2022 01:37 AM RBCUA 20 TO 50 09/02/2022 01:37 AM MUCUS 1+ 09/02/2022 01:37 AM SPECGRAV 1.023 09/02/2022 01:37 AM LEUKOCYTESUR NEGATIVE 09/02/2022 01:37 AM UROBILINOGEN Normal 09/02/2022 01:37 AM BILIRUBINUR NEGATIVE 09/02/2022 01:37 AM GLUCOSEU 3+ 09/02/2022 01:37 AM KETUA LARGE 09/02/2022 01:37 AM HgBA1c: Lab Results Component Value Date/Time LABA1C 12.5 09/02/2022 06:03 AM TSH: No results found for: TSH Lactic Acid: No results found for: LACTA Troponin: No results for input(s): TROPONINI in the last 72 hours. Microbiology: Urine Culture: No components found for: CURINE Blood Culture: No components found for: CBLOOD, CFUNGUSBL Sputum Culture: No components found for: CSPUTUM Radiology/Imaging: CT HEAD WO CONTRAST Final Result Study limited by motion artifact. No acute intracranial abnormality. Mild age-appropriate atrophy and small-vessel disease ischemic changes. Patient is intubated. CT CHEST ABDOMEN PELVIS WO CONTRAST Additional Contrast? None Final Result 1. Drainage catheters are noted in the left groin/perineum without drainable fluid collection or new soft tissue gas. 2. Anasarca. 3. New bilateral pleural effusions with patchy ground-glass opacities in the left upper lobe, likely infectious or inflammatory in etiology. 4. No new acute findings in the abdomen or pelvis. XR CHEST PORTABLE Final Result Patchy airspace opacities most pronounced in the right mid to lower lung view, may be related to mild pulmonary edema versus pneumonia. Mild bilateral pleural effusions. US RENAL COMPLETE Final Result 1. Simple midpole left renal cyst measuring 2.7 cm. 2. No hydronephrosis. XR CHEST PORTABLE Final Result Decreased pulmonary edema Otherwise, stable chest XR ABDOMEN FOR NG/OG/NE TUBE PLACEMENT Final Result OG tube in satisfactory position. XR CHEST (SINGLE VIEW FRONTAL) Final Result Endotracheal tube in satisfactory position. Right IJ line unchanged. Mild congestive failure, stable. XR CHEST PORTABLE Final Result Right IJ catheter with tip at the inferior SVC. No pneumothorax. Findings of interstitial pulmonary edema. 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 Septic shock (HCC) 09/06/2022 Acute respiratory failure with hypoxia ([facility]) 09/05/2022 Diabetic acidosis without coma ([facility]) 09/05/2022 GEMA (obstructive sleep apnea) 09/05/2022 VELMA (acute kidney injury) ([facility]) 09/03/2022 Necrotizing fasciitis ([facility]) 09/02/2022 Metabolic acidosis 09/02/2022 Hypernatremia 09/02/2022 Hypokalemia 09/02/2022 PLAN: PLAN/MEDICAL DECISION MAKING: Neurologic: Awake and alert, following commands Neuro checks per protocol roxicodone 10 mg every 6 hours, fentanyl 50/100 mcg Every 2 hours as needed. Will decrease as able Home Paxil daily Cardiovascular: History of hypertension, on hydrochlorothiazide 25 mg daily at home, amlodipine 5 mg daily hydralazine 25 mg every 8 hours Hemodynamically stable MAP goal 65 Pulmonary: History of asthma and COPD, on albuterol at home Atrovent nebulization ordered due to tachycardia Maintain oxygen sats >88% BiPAP at night for GEMA Pulmonary toilet Vent Information Ventilator ID: [id number] Equipment Changed: HME, Expiratory Filter Ventilator Initiate: Yes Ventilator Discontinue: Yes Vent Mode: AC/PRVC GI/Nutrition Ulcer Prophylaxis: Prevacid daily, not home med. Will discontinue Diet:ADULT TUBE FEEDING; Orogastric; Peptide Based High Protein; Continuous; 10; Yes; 10; Q 4 hours; 50; 300; Q 4 hours ADULT DIET; Regular; 3 carb choices (45 gm/meal) Bowel regimen with GlycoLax daily as needed Renal/Fluid/Electrolyte Metabolic acidosis due to DKA. Had bicarb drip. Switched to D5/half normal. VELMA with poor urine output, nephrology following. Recommended to hold Bumex and continue free water to 300 cc every 4 hours Received 2 doses Diuril yesterday per nephrology I/O: In: 2089.2 [P.O.:1425; I.V.:166.2; NG/GT:300] Out: 3145 [Urine:2605; Drains:40] Monitor electrolytes, replace PRN Hunter catheter was attempted to be removed however patient had urinary retention and needs wound care requiring Hunter be replaced. Maintaining for wound care ID Necrotizing fasciitis in the left groin S/p multiple debridements of necrotizing soft tissue infection of the left groin/perineum. S/p washout and closure 09/04 JESSICA #1 removed from left thigh on 09/12 by general surgery. Continues to have JESSICA #2 and left thigh Infectious disease and surgery following WBC: Lab Results Component Value Date WBC 12.5 (H) 09/15/2022 Tmax: Temp (24hrs), Av.3 F (37.4 C), Min:98.6 F (37 C), Max:99.7 F (37.6 C) Antimicrobials: Meropenem and Diflucan. ID following Hematology: Recent Labs 09/13/22 0647 09/14/22 0317 09/15/22 0530 HGB 12.2 11.0* 11.6* stable Endocrine: Type II diabetes: had insulin drip Per DKA protocol. Now on Lantus 30 BID. and MDSS glucose controlled - most recent BGL is Recent Labs 09/13/22 0647 09/14/22 0317 09/14/22 1810 GLUCOSE 208* 162* 176* DVT Prophylaxis Heparin Discharge Needs: PT, OT, and Case Management CODE STATUS: Full Code DISPOSITION: [] To remain ICU: [x] OK for out of ICU from Critical Care standpoint Debi Brooke DO Emergency Medicine Resident PGY2 [facility]; [place], [place] 09/15/2022, 7:26 AM Associated attestation - Jose Carlos Way MD - 09/15/2022 8:34 PM EDT Attending Physician Statement I have discussed the case of Divina Amin, including pertinent history and exam findings with the resident/fellow/medical student/CLOUD ADMINISTRATOR/PA. I have seen and examined the patient and the iwlliam elements of the encounter have been performed by me. I agree with the assessment, plan and orders as documented by the resident/fellow/medical student/CLOUD ADMINISTRATOR/PA With changes made to the note as needed. Pt was seen during rounds. Review of Systems: In addition to the pertinent positives and negatives as stated within HPI and the review of systems as documented in their notes, all other systems were reviewed when able to and are reported negative. Fluid balance is +8.8 L Patient refused BiPAP After educating the patient regarding the importance of BiPAP given her body habitus, she was willing to use it On subcutaneous heparin and Prevacid Decrease oxycodone Physical therapy and Occupational Therapy to evaluate and treat patient Patient with hypernatremia, free water being provided Leukocytosis slightly worse, continue to monitor Anemia is improving Patient needs Hunter catheter Supplement potassium for hypokalemia Renal function is stabilized with creatinine 1.5 Total critical care time caring for this patient with life threatening, unstable organ failure, including direct patient contact, management of life support systems, review of data including imaging and labs, discussions with other team members and physicians at least 30 Min so far today, excluding procedures. Jose Carlos Way MD 09/15/2022 8:33 PM Tax Services Specialist tried placing patient on NIV and patient immediately pulled mask off as RT started the machine. PATIENT REFUSES TO WEAR BIPAP [x] Risks and benefits explained to patient [x] Patient refuses to wear Bipap stating she does not like things on her face. [x] Patient verbalizes understanding of information presented. Order obtained for extubation. SpO2 of 99 on 30% FiO2. Patient extubated and placed on 2 liters/min via nasal cannula. Post extubation SpO2 is 96% with HR 71 bpm and RR 20 breaths/min. Patient had mild cough that was non-productive. Extubation Well tolerated by patient.. Breath Sounds: slightly diminished t/o RACHEL TREADWELL RCP 2:42 PM Images from the original note were not included. [facility] Progress Note Divina Amin Date: 09/14/2022 LOS: 12 Reason for F/U : Necrotizing soft tissue infection Impression : Left perineal, thigh/gluteal necrotizing soft tissue infection status post surgical drainage 09/02/2022 Status post second look/I&D 09/03/2022 Status post irrigation and closure of left thigh and groin and buttock soft tissue defect 09/04/2022 Acute respiratory failure currently ventilator dependent Shock-resolved Diabetes mellitus with DKA currently on insulin drip Extreme obesity Acute kidney injury with unknown baseline creatinine COPD Recommendations: The patient continues on antimicrobial therapy with meropenem for necrotizing soft tissue infection She was previously on linezolid which was discontinued 09/07/2022 Continue fluconazole which was added 09/07/2022 Continue local wound care Infection Control Recommendations: [place] precautions Discharge Planning: Estimated Length of IV antimicrobials: To be determined Patient will need Midline Catheter Insertion/ PICC line Insertion: No Patient will need: Home IV , Infusion Center, SNF, LTAC: Undetermined Patient willneed outpatient wound care: No Medical Decision making / Summary of Stay: Divina Amin is a 61 y.o.-year-old female who was initially admitted on 09/02/2022. Divina is a morbidly obese diabetic female with also a history of asthma/COPD and is currently intubated and the history is obtained from the daughter who is at bedside. It is my understanding that Divina has had a history of boils in her left groin area which have previously been drained in the past. She has certainly not needed to be hospitalized for these and she had been complaining of a boil/infection in her left groin for about a week at home. The patient ended up being started on Bactrim about a day ago but the daughter after getting home from work in the late afternoon yesterday found that Divina was out of it and was having difficulty ambulating going to the bathroom. She ended up calling EMS and the patient was taken to an outlying facility in [place] where work-up showed some leukocytosis, left groin soft tissue infection with some soft tissue gas and the patient was hypotensive. The patient received fluid resuscitation and was transferred here where blood sugars were elevated and the patient was started on the DKA protocol. The patient became more confused and was seen by the general surgery team started on antimicrobial therapy with meropenem and linezolid due to history of a penicillin allergy. The patient had an obvious wound on the left perineum/upper thigh that was protruding necrotic and fluctuant. The patient was taken to the operating room this morning underwent incision and drainage of her left thigh/left groin and buttocks abscess/soft tissue infection and there was a sinclair necrotizing tissue appreciated during the surgery. The margins included the left major labia majora, left upper thigh, left inferior groin, left perineum/gluteal area. The patient is currently in the intensive care unit and I was asked to evaluate and help with antibiotic choice. The patient was taken to the operating room 09/03/2022 and underwent second look/debridement procedure of the left groin/thigh area. The patient was taken to the operating room 09/04/2022 and underwent irrigation and closure of the left thigh groin buttock and soft tissue defect after the patient was found to have a clean wound base and there was placement of 2 flat JESSICA drains with multilayer closure. Current Evaluation:09/14/2022 BP (!) 74/58 Pulse 73 Temp 99.7 F (37.6 C) (Bladder) Resp 16 Ht 5' 2 (1.575 m) Wt 297 lb 2.9 oz (134.8 kg) SpO2 98% BMI 54.35 kg/m Temperature Range: Temp: 99.7 F (37.6 C) Temp Av.3 F (37.4 C) Min: 98.8 F (37.1 C) Max: 99.7 F (37.6 C) Patient evaluated in the ICU Afebrile to low grade fevers. VS stable The patient remains on mechanical ventilation with 30% FiO2 and 5 of PEEP. She is receiving propofol and precedex for sedation. She is following commands today and the plan is for extubation. Medications reviewed: Diflucan completed on 09/12/22 Meropenem continues for necrotizing soft tissue infection Bumex and free water given for VELMA with hypernatremia per Nephrology. Abdominal drains in place with serosanguinous drainage noted. CT chest on 09/09/22 showed small to moderate bilateral pleural effusions with adjacent atelectasis and patchy opacities in the MICHAEL. Sputum culture on 09/11 is showing light growth yeast. FMS is in place for liquid stool No other acute issues noted. Discussed with RN Labs Reviewed 09/14/2022 BUN:64-->60-->61 Cr: 2.1-->1.7-->1.5 Na: 151-->148-->145 WBC: 12.1-->13.9-->11.1 Hgb: 12.9-->12.2-->11.0 Plt: 235-->379-->214-->241 Cultures: Results Procedure Component Value Units Date/Time Culture, Respiratory [[id number]] (Abnormal) Collected: 09/11/22 0018 Order Status: Completed Specimen: Sputum Expectorated Updated: 09/13/22 1126 Specimen Description .EXPECTORATED SPUTUM Direct Exam >10, <25 NEUTROPHILS/LPF < 10 EPITHELIAL CELLS/LPF FEW YEAST Culture Chasity albicans/dubliniensis MODERATE GROWTH NO NORMAL CITLALI Culture, Blood 2 [[id number]] Collected: 09/02/22 0625 Order Status: Completed Specimen: Blood Updated: 09/07/22 07 Specimen Description .BLOOD Special Requests R HAND 3ML Culture NO GROWTH 5 DAYS Culture, Blood 1 [[id number]] Collected: 09/02/22 0620 Order Status: Completed Specimen: Blood Updated: 09/07/22 07 Specimen Description .BLOOD Special Requests R FA 5ML Culture NO GROWTH 5 DAYS MRSA DNA Probe, Nasal [[id number]] Collected: 09/02/22 0600 Order Status: Completed Specimen: Nasal Updated: 09/03/22 1028 Specimen Description .NASAL SWAB MRSA, DNA, Nasal NEGATIVE Comment: NEGATIVE: MRSA DNA not detected by nucleic acid amplification. Results should be used as an adjunct to nosocomial control efforts to identify patients needing enhanced precautions. The test is not intended to identify patients with staphylococcal infections. Results should not be used to guide or monitor treatment for MRSA infections. Culture, Urine [[id number]] Collected: 09/02/22 0138 Order Status: Completed Specimen: Urine, clean catch Updated: 09/03/22 0832 Specimen Description .CLEAN CATCH URINE Culture NO GROWTH Culture, Blood 1 [[id number]] Collected: 09/02/22 0104 Order Status: Completed Specimen: Blood Updated: 09/07/22 0205 Specimen Description .BLOOD Special Requests RJUG, 10ML Culture NO GROWTH 5 DAYS Culture, Blood 1 [[id number]] Collected: 09/02/22 0030 Order Status: Canceled Specimen: Blood Review of Systems Unable to perform ROS: Intubated Physical Examination : Physical Exam Constitutional: Appearance: She is well-developed. She is obese. Interventions: She is sedated and intubated. HENT: Head: Normocephalic and atraumatic. Cardiovascular: Rate and Rhythm: Regular rhythm. Heart sounds: Normal heart sounds. Pulmonary: Effort: Pulmonary effort is normal. She is intubated. Breath sounds: Normal breath sounds. Abdominal: General: Bowel sounds are normal. Palpations: Abdomen is soft. Musculoskeletal: Cervical back: Neck supple. Skin: General: Skin is warm and dry. Comments: There is a dressing in the perineal area which was not removed Laboratory data: I have independently reviewed the followinglabs: CBC with Differential: Recent Labs 09/13/22 0647 09/14/22316 WBC 13.9* 11.1 HGB 12.2 11.0* HCT 37.7 34.7* PLT 379 241 LYMPHOPCT 32 29 MONOPCT 10 8 BMP: Recent Labs 09/13/22 0647 09/14/22316 NA 148* 145* K 4.1 3.7 CL 107 106 CO2 29 29 BUN 60* 61* CREATININE 1.7* 1.5* Hepatic Function Panel: No results for input(s): PROT, LABALBU, BILIDIR, IBILI, BILITOT, ALKPHOS, ALT, AST in the last 72 hours. No results found for: PROCAL Lab Results Component Value Date/Time CRP 489.6 09/02/2022 01:35 AM No results found for: SEDRATE No results found for: DDIMER No results found for: FERRITIN No results found for: LDH No results found for: FIBRINOGEN No results found for requested labs within last 30 days. No results found for: COVID19 No results for input(s): VANCOTROUGH in the last 72 hours. Imaging Studies: RETROPERITONEAL ULTRASOUND OF THE KIDNEYS AND URINARY BLADDER 09/03/2022 IMPRESSION: 1. Simple midpole left renal cyst measuring 2.7 cm. 2. No hydronephrosis. Specimen Collected: 09/03/22 12:52 EDT Last Resulted: 09/03/22 13:03 EDT Cultures: Culture, Blood 1 [[id number]] Collected: 09/02/22619 Order Status: Completed Specimen: Blood Updated: 09/07/22724 Specimen Description .BLOOD Special Requests R FA 5ML Culture NO GROWTH 5 DAYS Culture, Blood 2 [[id number]] Collected: 09/02/22624 Order Status: Completed Specimen: Blood Updated: 09/07/22724 Specimen Description .BLOOD Special Requests R HAND 3ML Culture NO GROWTH 5 DAYS Culture, Blood 1 [[id number]] Collected: 09/02/22 0104 Order Status: Completed Specimen: Blood Updated: 09/07/22 0205 Specimen Description .BLOOD Special Requests RJUG, 10ML Culture NO GROWTH 5 DAYS MRSA DNA Probe, Nasal [[id number]] Collected: 09/02/22 06 Order Status: Completed Specimen: Nasal Updated: 09/03/22 1028 Specimen Description .NASAL SWAB MRSA, DNA, Nasal NEGATIVE Comment: NEGATIVE: MRSA DNA not detected by nucleic acid amplification. Results should be used as an adjunct to nosocomial control efforts to identify patients needing enhanced precautions. The test is not intended to identify patients with staphylococcal infections. Results should not be used to guide or monitor treatment for MRSA infections. Culture, Urine [[id number]] Collected: 09/02/22 0138 Order Status: Completed Specimen: Urine, clean catch Updated: 09/03/22 0832 Specimen Description .CLEAN CATCH URINE Culture NO GROWTH Medications: chlordiazePOXIDE 10 mg Oral TID oxyCODONE 15 mg Oral Q6H meropenem 1,000 mg IntraVENous Q12H insulin glargine 30 Units SubCUTAneous BID hydrALAZINE 25 mg Oral 3 times per day [Held by provider] amLODIPine 5 mg Oral Daily PARoxetine 10 mg Per NG tube Daily insulin lispro 0-16 Units SubCUTAneous Q6H RT lansoprazole 30 mg Per G Tube QAM AC [Held by provider] bumetanide 2 mg IntraVENous BID sodium chloride flush 5-40 mL IntraVENous 2 times per day heparin (porcine) 5,000 Units SubCUTAneous 3 times per day ipratropium 0.5 mg Nebulization Q4H WA RT [facility] CAT [place] CNP Perfect [employer] messaging OFFICE: Thank you for allowing us to participate in the care of this patient. Please call with questions. This note is created with the assistance of a speech recognition program. While intending to generate a document that actually reflects the content of the visit, the document can still have some errors including those of syntax and sound a like substitutions which may escape proof reading. In such instances, actual meaning can be extrapolated by contextual diversion. ATTESTATION: I have discussed the case, including pertinent history and exam findings with the SELLING SPECIALIST. I have evaluated the History, physical findings and pictures of the patient and the william elements of the encounter have been performed by me. I have reviewed the laboratory data, other diagnostic studies and discussed them with the SELLING SPECIALIST. I have updated the medical record where necessary. I agree with the assessment, plan and orders as documented by the SELLING SPECIALIST. In addition diagnostic and decision making elements include: Left perineal, thigh/gluteal necrotizing soft tissue infection status post surgical drainage 09/02/2022 Status post second look/I&D 09/03/2022 Status post irrigation and closure of left thigh and groin and buttock soft tissue defect 09/04/2022 Acute respiratory failure currently ventilator dependent Shock-resolved Diabetes mellitus with DKA currently on insulin drip Extreme obesity Acute kidney injury with unknown baseline creatinine COPD Elements of Medical Decision Making: Note: I have independently performed the steps listed below as part of the medical decision making and evaluation. Examined patient. Discussed with patient Discussed with referring physician or service Labs, medications, radiologic studies were reviewed with personal review of films Large amounts of data were reviewed Discussed with nursing Staff, urban and regional planner Infection Control and Prevention measures reviewed All prior entries were reviewed Reviewed Administration of medications as ordered Established Prognosis: Fair Discharge planning reviewed Reviewed need for follow up as outpatient. Lyndon Garcia MD. Comprehensive Nutrition Assessment Type and Reason for Visit: Reassess Nutrition Recommendations/Plan: Continue Peptide Based High Protein TF at 50 mL/hr Monitor weight, labs and TF tolerance. Malnutrition Assessment: Malnutrition Status: Insufficient data (09/02/22 1509) Context: Acute Illness Findings of the 6 clinical characteristics of malnutrition: Energy Intake: Mild decrease in energy intake (Comment) Weight Loss: Unable to assess Body Fat Loss: Unable to assess Muscle Mass Loss: Unable to assess Fluid Accumulation: Mild Generalized Banking Services Advisor Strength: Not Performed Nutrition Assessment: Patient seen for follow up. Peptide Based High Protein formula running at 50 mL/hr, patient appears to be tolerating. She is currently on weaning trial. glucose 162-244, Na 145. Meds reviewed. Nutrition Related Findings: Labs/Meds reviewed. Wound Type: Surgical Incision (to left groin) Current Nutrition Intake & Therapies: Average Meal Intake: NPO Average Supplements Intake: NPO Current Tube Feeding (TF) Orders: Feeding Route: Orogastric Formula: Peptide Based High Protein Schedule: Continuous Feeding Regimen: 50 mL/hr Additives/Modulars: None Water Flushes: per MD Current TF & Flush Orders Provides: 50 mL/hr = 1200 kcals, 105 gm pro/day. Goal TF & Flush Orders Provides: Anthropometric Measures: Height: 5' 2 (157.5 cm) [place] Body Weight (IBW): 110 lbs (50 kg) Admission Body Weight: 297 lb 2.9 oz (134.8 kg) Current Body Weight: 297 lb 2.9 oz (134.8 kg), 270.2 % IBW. Weight Source: Bed Scale Current BMI (kg/m2): 54.3 BMI Categories: Obese Class 3 (BMI 40.0 or greater) Estimated Daily Nutrient Needs: Energy Requirements Based On: Kcal/kg Weight Used for Energy Requirements: [place] Energy (kcal/day): 1462-0234 kcals/day Weight Used for Protein Requirements: [place] Protein (g/day): 90-110 gm pro/day Method Used for Fluid Requirements: Other (Comment) Fluid (ml/day): per MD Nutrition Diagnosis: Increased nutrient needs related to (healing; necrotizing fascitis) as evidenced by wounds Nutrition Interventions: Food and/or Nutrient Delivery: Continue Current Tube Feeding, Continue NPO Nutrition Education/Counseling: No recommendation at this time Coordination of Nutrition Care: Continue to monitor while inpatient Plan of Care discussed with: RN Goals: Previous Goal Met: Goal(s) Achieved Goals: Meet at least 75% of estimated needs, prior to discharge Nutrition Monitoring and Evaluation: Behavioral-Environmental Outcomes: None Identified Food/Nutrient Intake Outcomes: Enteral Nutrition Intake/Tolerance Physical Signs/Symptoms Outcomes: Biochemical Data, GI Status, Fluid Status or Edema, Hemodynamic Status, Weight, Skin, Nutrition Focused Physical Findings Discharge Planning: Too soon to determine Gail Doe RD Contact: [phone] Images from the original note were not included. PROGRESS NOTE PATIENT NAME: Divina Amin DATE: 09/14/2022 HD: # 12 Patient Active Problem List Diagnosis Necrotizing fasciitis (HCC) Metabolic acidosis Hypernatremia Hypokalemia VELMA (acute kidney injury) (HCC) Acute respiratory failure with hypoxia (HCC) Diabetic acidosis without coma (HCC) GEMA (obstructive sleep apnea) Septic shock (HCC) Bandemia Deborah gangrene Metabolic encephalopathy Open wound Ventilator dependent (HCC) Morbid obesity (HCC) DIAGNOSIS AND PLAN Cont management per critical care team S/p multiple debridements of necrotizing soft tissue infection of the left groin/perineum. S/p washout and closure 09/04 Wound care: change ABD pads over groin incision BID Continue JESSICA drain to bulb suction, monitor and record output Abx per ID Continue strict glucose control for healing purposes with goal <180. No further surgical interventions planned. Continuing to monitor wound and drain outputs SUBJECTIVE Remains intubated. SBT today OBJECTIVE VITALS: Vitals: 09/14/22 1127 BP: Pulse: 75 Resp: 21 Temp: SpO2: 97% General: Intubated on the ventilator, no acute distress. Obese Pulmonary/Chest: Equal chest rise, intubated Cardiovascular: Regular rate and rhythm Abdomen: Soft, nontender, nondistended. Extremities: No cyanosis, clubbing, edema, or effusions. Skin: Left perineum/buttock with prolene sutures in place and no significant drainage and ABD dressings in place LAB: CBC: Recent Labs 09/12/22 0429 09/13/22 0647 09/14/22 0317 WBC 12.1* 13.9* 11.1 HGB 12.9 12.2 11.0* HCT 42.6 37.7 34.7* MCV 98.2 97.4 98.6 PLT 235 379 241 BMP: Recent Labs 09/12/22 0429 09/12/22 1844 09/13/22 0419 09/13/22 0647 09/14/22 0317 NA 151* 150* -- 148* 145* K 4.6 3.8 -- 4.1 3.7 CL 102 106 -- 107 106 CO2 31 32* -- 29 29 BUN 64* -- -- 60* 61* CREATININE 2.1* -- 1.7* 1.7* 1.5* GLUCOSE 96 -- -- 208* 162* Trauma Attending Attestation I have reviewed the above GCS note(s) and confirmed the william elements of the medical history and physical exam. I have seen and examined the pt. I have discussed the findings, established the care plan and recommendations with the CLOUD ADMINISTRATOR Gonzalez Castellanos DO 09/14/2022 8:57 PM NEPHROLOGY PROGRESS NOTE SUBJECTIVE Patient was seen and examined. Patient is on weaning trial. She is on 30% FiO2. She is quite comfortable and able to follow simple commands Patient is off pressors. Patient is receiving tube feed with free water Sodium is improving and most recent sodium is 145 mg/L. Creatinine is down to 1.5 and slowly improving. Received antibiotics for necrotizing fasciitis. JESSICA drain removed from left thigh but 1 more JESSICA drain still remains in place OBJECTIVE Vitals: 09/14/22 0733 09/14/22 0800 09/14/22 0900 09/14/22 1000 BP: (!) 94/53 95/69 104/70 Pulse: 58 59 67 73 Resp: 17 16 19 21 Temp: TempSrc: SpO2: 98% 97% 97% 97% Weight: Height: 24HR INTAKE/OUTPUT: Intake/Output Summary (Last 24 hours) at 09/14/2022 1112 Last data filed at 09/14/2022 1054 Gross per 24 hour Intake 3789.88 ml Output 2550 ml Net 1239.88 ml General appearance: Intubated and on mechanical ventilation, weaning trials in progress. Respiratory:: Bilateral air entry and no crackles or wheezes Cardiovascular: S1 and S2 audible no S3 Abdomen: Nontender, bowel sounds were audible Extremities: No Cyanosis or Clubbing, present lower extremity edema Neurological: Mechanical ventilation MEDICATIONS Scheduled Meds: chlordiazePOXIDE 10 mg Oral TID oxyCODONE 15 mg Oral Q6H meropenem 1,000 mg IntraVENous Q12H insulin glargine 30 Units SubCUTAneous BID hydrALAZINE 25 mg Oral 3 times per day [Held by provider] amLODIPine 5 mg Oral Daily PARoxetine 10 mg Per NG tube Daily insulin lispro 0-16 Units SubCUTAneous Q6H RT lansoprazole 30 mg Per G Tube QAM AC [Held by provider] bumetanide 2 mg IntraVENous BID sodium chloride flush 5-40 mL IntraVENous 2 times per day heparin (porcine) 5,000 Units SubCUTAneous 3 times per day ipratropium 0.5 mg Nebulization Q4H WA RT Continuous Infusions: propofol Stopped (09/14/22 0737) dexmedetomidine 0.6 mcg/kg/hr (09/14/22 1105) dextrose INVESTIGATIONS Last 3 CMP: Recent Labs 09/12/22 04209/12/22 1844 09/13/22 0419 09/13/22 0609/14/22316 NA 151* 150* -- 148* 145* K 4.6 3.8 -- 4.1 3.7 CL 102 106 -- 107 106 CO2 31 32* -- 29 29 BUN 64* -- -- 60* 61* CREATININE 2.1* -- 1.7* 1.7* 1.5* CALCIUM 8.8 -- -- 8.4* 8.7 Last 3 CBC: Recent Labs 09/12/22 04209/13/22 0647 09/14/22316 WBC 12.1* 13.9* 11.1 RBC 4.34 3.87* 3.52* HGB 12.9 12.2 11.0* HCT 42.6 37.7 34.7* MCV 98.2 97.4 98.6 MCH 29.7 31.5 31.3 MCHC 30.3 32.4 31.7 RDW 12.6 12.6 12.4 PLT 235 379 241 MPV 11.5 11.6 11.7 ASSESSMENT Transferred from outlying facility where she presented with pain redness swelling involving the left buttock area and groin. Further work-up showed evidence of necrotizing fasciitis along with diabetic ketoacidosis. She was also hypotensive needing fluids and pressor support. Underwent multiple debridement procedure and sustained acute kidney injury during hospitalization prompting nephrology consultation. #1 Acute kidney injury secondary to ischemic ATN further complicated by intravascular volume depletion. Creatinine peaked up to 3.3 and now slowly improving creatinine is down to 1.5 mg/dL. Baseline creatinine unknown #2 Hypernatremia due to free water deficit, use of diuretics. Now patient is on free water through NG tube and also received Diuril. Patient has fair urine output. #3 volume overload -patient is still 8 L positive based on intake and output charting #4 acute hypoxic respiratory failure #5 necrotizing fasciitis involving left groin area status post multiple I&D and debridement procedures. Patient is receiving antibiotics under the supervision of infectious diseases #6 diabetic ketoacidosis resolved #7 morbid obesity PLAN #1 Continue free water 2. Diuril 2 doses today 3. Repeat BMP this evening 4. Follow with you Please do not hesitate to call with questions This note is created with the assistance of a speech-recognition program. While intending to generate a document that actually reflects the content of the visit, no guarantees can be provided that every mistake has been identified and corrected by editing Jose Raul Harvey MD 09/14/2022 11:12 AM [facility] Images from the original note were not included. Occupational Therapy [facility] Occupational Therapy Not Seen Note DATE: 09/14/2022 NAME: Divina Amin : 1960 Patient not seen this date for Occupational Therapy due to: Other: Per chart, wean trial this morning and afternoon Next Scheduled Treatment: 09/15/2022 09/14/22 0733 NICU Vent Information Vent Mode (S) CPAP Pressure Support (S) 8 cmH20 PEEP/CPAP (cmH2O) (S) 5 CPAP trial initiated. Pt. Tolerating well. INTENSIVE CARE UNIT Resident Physician Progress Note Patient - Divina Amin Date of Admission - 09/02/2022 12:12 AM Date of Evaluation - 09/14/2022 Room and Bed Number - 3011/3011-01 Hospital Day - 12 Chief Complaint Patient presents with Altered Mental Status SUBJECTIVE: HISTORY OF PRESENT ILLNESS: Divina Amin is a 61 y.o. with a past medical history of type 2 diabetes, asthma, COPD and obesity. Patient was transferred here from an outlying facility after concerns for necrotizing fasciitis. [facility], she was noted to have an elevated WBC count and abscess in the left groin which showed subcutaneous gas. Patient received 3 L of crystalloid fluids and a dose of vancomycin prior to transfer. In our emergency department the patient was altered ANO x0, VBG showed pH of 6.79, WBC count of 26, blood glucose in the 500s, beta hydroxybutyrate of 10, bicarb of less than 6. Patient was immediately evaluated by surgical team and another 2 L of fluids was given. Patient was initially started on DKA protocol in the emergency department. 1 amp of bicarb was given to her. On initial icu evaluation she was altered, not answering questions and not responding fully. Seem to be in acute distress. patient on a continuous bicarb drip, insulin drip , meropenem and linezolid by surgery team due to history of penicillin allergy. potassium was 5.2. Underwent debridement 09/02/2022, intubated for procedure Started on DKA protocol Repeat debridement 09/03. Repeat washout and closure on 09/04 Linezolid discontinued on 09/07 OVERNIGHT EVENTS: Remains intubated and sedated on precedex 0.6 and propofol 5 no pressors. Pressures have been decreasing. She has been afebrile. Hunter replaced yesterday for urinary retention and difficulty straight cathing due to wound care UOP 2.48L (0.8 cc/kg/hr) Drain output 65 cc over 24 hours. Increased from 25 cc yesterday No stool Tube feeds at goal 50 cc/hr BP: 90/52 MAP: 64 HR: 54 Tmax: 99.7 AC/PRVC 20/400/5/30 AB.456/42.6/78/30/BE 5.5 BUN/Cr: 61/1.5, improving Na: 145 (improving) K: 3.7 WBC: 11.1 Hb: 11 ID: meropenem and fluconazole Yesterday seen by nephrology and recommend to continue free water 300 cc every 4 hours. Continue to trend sodiums in setting of hypernatremia. Unchanged sodium last night 150 from 151. Infectious disease recommending to continue meropenem and fluconazole. General surgery continues to follow for drain management. Neurology continues to monitor and recommends continue to wean sedation. Plan: - continue to wean sedation - continue to monitor Na - ?extubation this AM F.A.S.T. M. H.U.G.S. B.I.D. Feeding Diet: Diet NPO ADULT TUBE FEEDING; Orogastric; Peptide Based High Protein; Continuous; 10; Yes; 10; Q 4 hours; 50; 30; Q 4 hours Fluids: 3 water 300 mg every 4 hours. Family: will update when here Analgesic: Jamila 15 mg every 6 hours, fentanyl 50/100 every 2 hours as needed. Librium 10mg TID Sedation: Precedex 1.0, propofol 10, Thrombo-prophylaxis: [] Enoxaparin, [x] Unfract. Heparin Subcutaneously, [] EPC Cuffs Mobility: PT/OT Heads up: NA Ulcer prophylaxis: [] PPI Agent, [x] [id number], [] Sucralfate, [] Other: Glycemic control: Lantus 30 units twice daily, lispro high-dose correction Spontaneous breathing trial: Daily Bowel regimen/urine output: GlycoLax daily urine, urine output 0.9 cc per kilogram per hour Indwelling catheter/lines: ET tube, right IJ central line, FMS, OG, Hunter, JESSICA x1 De-escalation: wean sedation as tolerated OBJECTIVE: VITAL SIGNS: Patient Vitals for the past 8 hrs: BP Temp Temp src Pulse Resp SpO2 09/14/22 0600 96/60 -- -- 70 20 97 % 09/14/22 0500 (!) 119/52 -- -- 63 18 97 % 09/14/22 0400 (!) 99/55 99.7 F (37.6 C) Bladder 54 16 98 % 09/14/22 0338 -- -- -- 54 16 98 % 09/14/22 0300 91/60 -- -- 52 15 98 % 09/14/22 0200 (!) 93/58 99.5 F (37.5 C) -- 51 16 98 % 09/14/22 0100 (!) 90/56 -- -- 52 15 98 % 09/14/22 0039 -- -- -- -- 22 -- 09/14/22 0009 -- -- -- 58 23 97 % 09/14/22 0000 (!) 94/58 99.3 F (37.4 C) Bladder 53 17 97 % 09/13/22 2300 104/61 -- -- 59 17 98 % Last Body weight: Wt Readings from Last 3 Encounters: 09/02/22 297 lb 2.9 oz (134.8 kg) Body Mass Index : Body mass index is 54.35 kg/m . Tmax over 24 hours: Temp (24hrs), Av.1 F (37.3 C), Min:98.6 F (37 C), Max:99.7 F (37.6 C) Ins/Outs: In: 6149.4 [I.V.:1328.6; NG/GT:4230] Out: 3926 [Urine:3855; Drains:71] PHYSICAL EXAM: Constitutional: Intubated and sedated following commands in all 4 extremities EENT: PERRLA, sclera clear, anicteric, oropharynx clear, no lesions, neck supple with midline trachea. R Ij triple lumen Neck: Supple, symmetrical, trachea midline, no adenopathy, thyroid symmetric, no jvd skin normal Respiratory: clear to auscultation, no wheezes or rales and unlabored breathing. No intercostal tenderness Cardiovascular: regular rate and rhythm, normal S1, S2, no murmur noted and 2+ pulses throughout Abdomen: Debrided lower abdominal wound, JESSICA to left thigh Extremities: peripheral pulses normal, no pedal edema, no clubbing or cyanosis MEDICATIONS: Scheduled Meds: chlordiazePOXIDE 10 mg Oral TID oxyCODONE 15 mg Oral Q6H meropenem 1,000 mg IntraVENous Q12H insulin glargine 30 Units SubCUTAneous BID hydrALAZINE 25 mg Oral 3 times per day [Held by provider] amLODIPine 5 mg Oral Daily PARoxetine 10 mg Per NG tube Daily insulin lispro 0-16 Units SubCUTAneous Q6H RT lansoprazole 30 mg Per G Tube QAM AC [Held by provider] bumetanide 2 mg IntraVENous BID sodium chloride flush 5-40 mL IntraVENous 2 times per day heparin (porcine) 5,000 Units SubCUTAneous 3 times per day ipratropium 0.5 mg Nebulization Q4H WA RT Continuous Infusions: propofol 5 mcg/kg/min (09/14/22645) dexmedetomidine 0.6 mcg/kg/hr (09/14/22645) dextrose PRN Meds: acetaminophen, 650 mg, Q4H PRN fentanNYL, 50 mcg, Q2H PRN Or fentanNYL, 100 mcg, Q2H PRN glucose, 4 tablet, PRN dextrose bolus, 125 mL, PRN Or dextrose bolus, 250 mL, PRN glucagon (rDNA), 1 mg, PRN dextrose, , Continuous PRN sodium chloride flush, 5-40 mL, PRN dextrose bolus, 125 mL, PRN sodium phosphate IVPB, 10 mmol, PRN Or sodium phosphate IVPB, 15 mmol, PRN Or sodium phosphate IVPB, 20 mmol, PRN polyethylene glycol, 17 g, Daily PRN ipratropium 0.5 mg-albuterol 2.5 mg, 1 Dose, Q4H PRN albuterol, 2.5 mg, As Directed RT PRN SUPPORT DEVICES: [x] Ventilator [] BIPAP [] Nasal Cannula [] Room Air VENT SETTINGS (Comprehensive) (if applicable): Vent Information Ventilator ID: [id number] Equipment Changed: HME, Expiratory Filter Ventilator Initiate: Yes Vent Mode: AC/PRVC Additional Respiratory Assessments Pulse: 70 Respirations: 20 SpO2: 97 % End Tidal CO2: 46 (%) Position: Semi-Multani's Humidification Source: HME Circuit Condensation: Drained Cuff Pressure (cm H2O): (MOV) Lab Results Component Value Date/Time MODE [facility] 09/12/2022 04:22 AM ABGs: No results found for: PH, PCO2, PO2, HCO3, O2SAT DATA: Complete Blood Count: Recent Labs 09/12/22 0429 09/13/22 0647 09/14/22 0317 WBC 12.1* 13.9* 11.1 RBC 4.34 3.87* 3.52* HGB 12.9 12.2 11.0* HCT 42.6 37.7 34.7* MCV 98.2 97.4 98.6 MCH 29.7 31.5 31.3 MCHC 30.3 32.4 31.7 RDW 12.6 12.6 12.4 PLT 235 379 241 MPV 11.5 11.6 11.7 Last 3 Blood Glucose: Recent Labs 09/12/22 0429 09/13/22 0647 09/14/227 GLUCOSE 96 208* 162* PT/INR: Lab Results Component Value Date/Time PROTIME 17.5 09/02/2022 01:35 AM INR 1.5 09/02/2022 01:35 AM PTT: Lab Results Component Value Date/Time APTT 36.0 09/02/2022 01:35 AM Basic Metabolic Profile: Recent Labs 09/12/22 0429 09/12/22 1844 09/13/229 09/13/2247 09/14/22316 NA 151* 150* -- 148* 145* K 4.6 3.8 -- 4.1 3.7 CL 102 106 -- 107 106 CO2 31 32* -- 29 29 BUN 64* -- -- 60* 61* CREATININE 2.1* -- 1.7* 1.7* 1.5* GLUCOSE 96 -- -- 208* 162* Liver Function: No results for input(s): PROT, LABALBU, ALT, AST, GGT, ALKPHOS, BILITOT in the last 72 hours. Magnesium: Lab Results Component Value Date/Time MG 2.0 09/11/2022 03:28 AM MG 1.9 09/05/2022 04:23 AM MG 1.8 09/05/2022 12:22 AM Phosphorus: Lab Results Component Value Date/Time PHOS 3.7 09/05/2022 04:23 AM PHOS 3.2 09/05/2022 12:22 AM PHOS 3.5 09/04/2022 08:09 PM Ionized Calcium: Lab Results Component Value Date/Time CAION 1.25 09/02/2022 04:10 AM Urinalysis: Lab Results Component Value Date/Time NITRU NEGATIVE 09/02/2022 01:37 AM COLORU Yellow 09/02/2022 01:37 AM PHUR 5.5 09/02/2022 01:37 AM WBCUA 0 TO 2 09/02/2022 01:37 AM RBCUA 20 TO 50 09/02/2022 01:37 AM MUCUS 1+ 09/02/2022 01:37 AM SPECGRAV 1.023 09/02/2022 01:37 AM LEUKOCYTESUR NEGATIVE 09/02/2022 01:37 AM UROBILINOGEN Normal 09/02/2022 01:37 AM BILIRUBINUR NEGATIVE 09/02/2022 01:37 AM GLUCOSEU 3+ 09/02/2022 01:37 AM KETUA LARGE 09/02/2022 01:37 AM HgBA1c: Lab Results Component Value Date/Time LABA1C 12.5 09/02/2022 06:03 AM TSH: No results found for: TSH Lactic Acid: No results found for: LACTA Troponin: No results for input(s): TROPONINI in the last 72 hours. Microbiology: Urine Culture: No components found for: CURINE Blood Culture: No components found for: CBLOOD, CFUNGUSBL Sputum Culture: No components found for: CSPUTUM Radiology/Imaging: CT HEAD WO CONTRAST Final Result Study limited by motion artifact. No acute intracranial abnormality. Mild age-appropriate atrophy and small-vessel disease ischemic changes. Patient is intubated. CT CHEST ABDOMEN PELVIS WO CONTRAST Additional Contrast? None Final Result 1. Drainage catheters are noted in the left groin/perineum without drainable fluid collection or new soft tissue gas. 2. Anasarca. 3. New bilateral pleural effusions with patchy ground-glass opacities in the left upper lobe, likely infectious or inflammatory in etiology. 4. No new acute findings in the abdomen or pelvis. XR CHEST PORTABLE Final Result Patchy airspace opacities most pronounced in the right mid to lower lung view, may be related to mild pulmonary edema versus pneumonia. Mild bilateral pleural effusions. US RENAL COMPLETE Final Result 1. Simple midpole left renal cyst measuring 2.7 cm. 2. No hydronephrosis. XR CHEST PORTABLE Final Result Decreased pulmonary edema Otherwise, stable chest XR ABDOMEN FOR NG/OG/NE TUBE PLACEMENT Final Result OG tube in satisfactory position. XR CHEST (SINGLE VIEW FRONTAL) Final Result Endotracheal tube in satisfactory position. Right IJ line unchanged. Mild congestive failure, stable. XR CHEST PORTABLE Final Result Right IJ catheter with tip at the inferior SVC. No pneumothorax. Findings of interstitial pulmonary edema. 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 Neurology consult. Recommend weaning sedation and MRI of brain versus EEG if encephalopathy does not improve. Neuro checks per protocol On propofol and precedex, wean as tolerated roxicodone 15 mg every 6 hours, fentanyl 50/100 mcg Every 2 hours as needed. Will decrease as able Home Paxil daily Cardiovascular: History of hypertension, on hydrochlorothiazide 25 mg daily at home, amlodipine 5 mg daily hydralazine 25 mg every 8 hours Hemodynamically stable MAP goal 65 Pulmonary: History of asthma and COPD, on albuterol at home Atrovent nebulization ordered due to tachycardia Maintain oxygen sats >92%Maintain oxygen sats >92% Pulmonary toilet Vent Information Ventilator ID: [id number] Equipment Changed: HME, Expiratory Filter Ventilator Initiate: Yes Vent Mode: AC/PRVC GI/Nutrition On tube feeds at goal rate 50 cc/h Ulcer Prophylaxis: Prevacid daily, not home med Diet:Diet NPO ADULT TUBE FEEDING; Orogastric; Peptide Based High Protein; Continuous; 10; Yes; 10; Q 4 hours; 50; 300; Q 4 hours Bowel regimen with GlycoLax daily as needed Renal/Fluid/Electrolyte Metabolic acidosis due to DKA. Had bicarb drip. Switched to D5/half normal. Off IVF VELMA with poor urine output, nephrology following. Recommended to hold Bumex and increase free water to 300 cc every 4 hours I/O: In: 6149.4 [I.V.:1328.6; NG/GT:4230] Out: 3926 [Urine:3855; Drains:71] Monitor electrolytes, replace PRN K 3.7 Na 145 ID Necrotizing fasciitis in the left groin S/p multiple debridements of necrotizing soft tissue infection of the left groin/perineum. S/p washout and closure 09/04 JESSICA #1 removed from left thigh on 09/12 by general surgery. Infectious disease and surgery following WBC: Lab Results Component Value Date WBC 11.1 09/14/2022 Tmax: Temp (24hrs), Av.1 F (37.3 C), Min:98.6 F (37 C), Max:99.7 F (37.6 C) Antimicrobials: Meropenem and Diflucan. ID following Hematology: Recent Labs 09/12/22 0429 09/13/22 0647 09/14/22 0317 HGB 12.9 12.2 11.0* stable Endocrine: Type II diabetes: had insulin drip Per DKA protocol. Now on Lantus 30 BID. and MDSS glucose controlled - most recent BGL is Recent Labs 09/12/22 0429 09/13/22 0647 09/14/22 0317 GLUCOSE 96 208* 162* DVT Prophylaxis Heparin Discharge Needs: PT, OT, and Case Management CODE STATUS: Full Code DISPOSITION: [x] To remain ICU: [] OK for out of ICU from Critical Care standpoint Debi Brooke DO Emergency Medicine Resident PGY2 [facility]; [place], [place] 09/14/2022, 6:53 AM Associated attestation - Jose Carlos Way MD - 09/14/2022 8:23 PM EDT Attending Physician Statement I have discussed the case of Divina Amin, including pertinent history and exam findings with the resident/fellow/medical student/CLOUD ADMINISTRATOR/PA. I have seen and examined the patient and the william elements of the encounter have been performed by me. I agree with the assessment, plan and orders as documented by the resident/fellow/medical student/CLOUD ADMINISTRATOR/PA With changes made to the note as needed. Pt was seen during rounds. Review of Systems: In addition to the pertinent positives and negatives as stated within HPI and the review of systems as documented in their notes, all other systems were reviewed when able to and are reported negative. Patient came off the propofol On oxycodone and Librium Following commands On the ventilator on 30% oxygen We will extubate the patient ABG without significant acid-base disorders Has mild hypernatremia, continue to monitor as the patient receives free water Tolerating tube feeding Anemia slightly worse, continue to monitor Patient continues to need Hunter catheter secondary to retention of urine On subcutaneous heparin and lansoprazole Total critical care time caring for this patient with life threatening, unstable organ failure, including direct patient contact, management of life support systems, review of data including imaging and labs, discussions with other team members and physicians at least 30 Min so far today, excluding procedures. Jose Carlos Way MD 09/14/2022 8:22 PM Images from the original note were not included. PROGRESS NOTE PATIENT NAME: Divina Amin DATE: 09/14/2022 HD: # 12 Patient Active Problem List Diagnosis Necrotizing fasciitis (HCC) Metabolic acidosis Hypernatremia Hypokalemia VELMA (acute kidney injury) (HCC) Acute respiratory failure with hypoxia (HCC) Diabetic acidosis without coma (HCC) GEMA (obstructive sleep apnea) Septic shock (HCC) Bandemia Deborah gangrene Metabolic encephalopathy Open wound Ventilator dependent (HCC) Morbid obesity (HCC) DIAGNOSIS AND PLAN Cont management per critical care team S/p multiple debridements of necrotizing soft tissue infection of the left groin/perineum. S/p washout and closure 09/04 Wound care: change ABD pads over groin incision BID Continue JESSICA drain to bulb suction, monitor and record output. Keep remaining JESSICA today 65 cc output/24h Abx per ID Continue strict glucose control for healing purposes with goal <180. No further surgical interventions planned Surgery will monitor from afar. Will monitor drain output and remove once consistently <30cc of output SUBJECTIVE Remains intubated. OBJECTIVE VITALS: Vitals: 09/14/22 0400 BP: (!) 99/55 Pulse: 54 Resp: 16 Temp: 99.7 F (37.6 C) SpO2: 98% General: Intubated on the ventilator, no acute distress. More alert than prior days. Obese Pulmonary/Chest: Equal chest rise, intubated Cardiovascular: Regular rate and rhythm Abdomen: Soft, nontender, nondistended. Extremities: No cyanosis, clubbing, edema, or effusions. Skin: Left perineum/buttock with prolene sutures in place and no significant drainage and ABD dressings in place, skin surrounding the sutures no fluctuance, slight separation at the inferior aspect of the incision, no significant drainage, JESSICA with SS output LAB: CBC: Recent Labs 09/12/22 0429 09/13/22 0647 09/14/22 0317 WBC 12.1* 13.9* 11.1 HGB 12.9 12.2 11.0* HCT 42.6 37.7 34.7* MCV 98.2 97.4 98.6 PLT 235 379 241 BMP: Recent Labs 09/12/22 0429 09/12/22 1844 09/13/22 0419 09/13/22 0647 09/14/22 0317 NA 151* 150* -- 148* 145* K 4.6 3.8 -- 4.1 3.7 CL 102 106 -- 107 106 CO2 31 32* -- 29 29 BUN 64* -- -- 60* 61* CREATININE 2.1* -- 1.7* 1.7* 1.5* GLUCOSE 96 -- -- 208* 162* Imelda Kc DO General Surgery PGY-5 Images from the original note were not included. PROGRESS NOTE PATIENT NAME: Divina Amin DATE: 09/13/2022 HD: # 11 Patient Active Problem List Diagnosis Necrotizing fasciitis (HCC) Metabolic acidosis Hypernatremia Hypokalemia VELMA (acute kidney injury) (HCC) Acute respiratory failure with hypoxia (HCC) Diabetic acidosis without coma (HCC) GEMA (obstructive sleep apnea) Septic shock (HCC) Bandemia Deborah gangrene Metabolic encephalopathy Open wound Ventilator dependent (HCC) Morbid obesity (HCC) DIAGNOSIS AND PLAN Cont management per critical care team S/p multiple debridements of necrotizing soft tissue infection of the left groin/perineum. S/p washout and closure 09/04 Wound care: change ABD pads over groin incision BID Continue JESSICA drain to bulb suction, monitor and record output Abx per ID Continue strict glucose control for healing purposes with goal <180. No further surgical interventions planned. Continuing to monitor wound and drain outputs SUBJECTIVE Remains intubated. OBJECTIVE VITALS: Vitals: 09/13/22 1119 BP: Pulse: 61 Resp: 25 Temp: SpO2: 96% General: Intubated on the ventilator, no acute distress. Obese Pulmonary/Chest: Equal chest rise, intubated Cardiovascular: Regular rate and rhythm Abdomen: Soft, nontender, nondistended. Extremities: No cyanosis, clubbing, edema, or effusions. Skin: Left perineum/buttock with prolene sutures in place and no significant drainage and ABD dressings in place, skin surrounding the sutures is erythematous, no fluctuance, continues to be some induration, no sign of purulent drainage, JESSICA drains exiting left thigh with SS drainage LAB: CBC: Recent Labs 09/11/22 0328 09/12/22 0429 09/13/22 0647 WBC 13.0* 12.1* 13.9* HGB 13.3 12.9 12.2 HCT 41.9 42.6 37.7 MCV 94.8 98.2 97.4 PLT 223 235 379 BMP: Recent Labs 09/11/22 0328 09/11/22 1829 09/12/22 0429 09/12/22 1844 09/13/22 0419 09/13/22 0647 NA 151* < > 151* 150* -- 148* K 3.2* < > 4.6 3.8 -- 4.1 CL 106 < > 102 106 -- 107 CO2 30 < > 31 32* -- 29 BUN 68* -- 64* -- -- 60* CREATININE 2.2* -- 2.1* -- 1.7* 1.7* GLUCOSE 96 -- 96 -- -- 208* < > = values in this interval not displayed. Associated attestation - Caitlin Briseno MD - 09/13/2022 2:43 PM EDT I personally evaluated the patient and directed the medical decision making with Resident/MYRTLE after the physical/radiologic exam and laboratory values were reviewed and confirmed. Caitlin Briseno MD Images from the original note were not included. [facility] Progress Note Divina Amin Date: 09/13/2022 LOS: 11 Reason for F/U : Necrotizing soft tissue infection Impression : Left perineal, thigh/gluteal necrotizing soft tissue infection status post surgical drainage 09/02/2022 Status post second look/I&D 09/03/2022 Status post irrigation and closure of left thigh and groin and buttock soft tissue defect 09/04/2022 Acute respiratory failure currently ventilator dependent Shock-resolved Diabetes mellitus with DKA currently on insulin drip Extreme obesity Acute kidney injury with unknown baseline creatinine COPD Recommendations: The patient continues on antimicrobial therapy with meropenem She was previously on linezolid which was discontinued 09/07/2022 Continue fluconazole which was added 09/07/2022 Continue local wound care Infection Control Recommendations: [place] precautions Discharge Planning: Estimated Length of IV antimicrobials: To be determined Patient will need Midline Catheter Insertion/ PICC line Insertion: No Patient will need: Home IV , Infusion Center, SNF, LTAC: Undetermined Patient willneed outpatient wound care: No Medical Decision making / Summary of Stay: Divina Amin is a 61 y.o.-year-old female who was initially admitted on 09/02/2022. Divina is a morbidly obese diabetic female with also a history of asthma/COPD and is currently intubated and the history is obtained from the daughter who is at bedside. It is my understanding that Divina has had a history of boils in her left groin area which have previously been drained in the past. She has certainly not needed to be hospitalized for these and she had been complaining of a boil/infection in her left groin for about a week at home. The patient ended up being started on Bactrim about a day ago but the daughter after getting home from work in the late afternoon yesterday found that Divina was out of it and was having difficulty ambulating going to the bathroom. She ended up calling EMS and the patient was taken to an outlying facility in [place] where work-up showed some leukocytosis, left groin soft tissue infection with some soft tissue gas and the patient was hypotensive. The patient received fluid resuscitation and was transferred here where blood sugars were elevated and the patient was started on the DKA protocol. The patient became more confused and was seen by the general surgery team started on antimicrobial therapy with meropenem and linezolid due to history of a penicillin allergy. The patient had an obvious wound on the left perineum/upper thigh that was protruding necrotic and fluctuant. The patient was taken to the operating room this morning underwent incision and drainage of her left thigh/left groin and buttocks abscess/soft tissue infection and there was a sinclair necrotizing tissue appreciated during the surgery. The margins included the left major labia majora, left upper thigh, left inferior groin, left perineum/gluteal area. The patient is currently in the intensive care unit and I was asked to evaluate and help with antibiotic choice. The patient was taken to the operating room 09/03/2022 and underwent second look/debridement procedure of the left groin/thigh area. The patient was taken to the operating room 09/04/2022 and underwent irrigation and closure of the left thigh groin buttock and soft tissue defect after the patient was found to have a clean wound base and there was placement of 2 flat JESSICA drains with multilayer closure. Current Evaluation:09/13/2022 BP 107/67 Pulse 57 Temp 100 F (37.8 C) (Oral) Resp 23 Ht 5' 2 (1.575 m) Wt 297 lb 2.9 oz (134.8 kg) SpO2 100% BMI 54.35 kg/m Temperature Range: Temp: 100 F (37.8 C) Temp Av.3 F (37.9 C) Min: 100 F (37.8 C) Max: 100.6 F (38.1 C) Patient evaluated in the ICU Afebrile to low grade fevers. TMAX 100.0 VS stable Patient stable No complaints No new issues per RN Medications reviewed: Diflucan completing on 09/12/22 Meropenem continues The patient remains on mechanical ventilation with 30% FiO2 and 5 of PEEP. She is receiving propofol and precedex for sedation. She is following commands today. Bumex and free water given for VELMA with hypernatremia per Nephrology. Abdominal drains in place with serosanguinous drainage noted. CT chest on 09/09/22 showed small to moderate bilateral pleural effusions with adjacent atelectasis and patchy opacities in the MICHAEL. Sputum culture on 09/11 is showing light growth yeast. FMS is in place for liquid stool No other acute issues noted. Discussed with RN Labs Reviewed 09/13/2022 BUN:64-->60 Cr: 2.1-->1.7 Na: 151-->148 WBC: 12.1-->13.9 Hgb: 12.9-->12.2 Plt: 235-->379 Cultures: Results Procedure Component Value Units Date/Time Culture, Respiratory [[id number]] (Abnormal) Collected: 09/11/22 0018 Order Status: Completed Specimen: Sputum Expectorated Updated: 09/12/22 0943 Specimen Description .EXPECTORATED SPUTUM Direct Exam >10, <25 NEUTROPHILS/LPF < 10 EPITHELIAL CELLS/LPF FEW YEAST Culture Chasity albicans/dubliniensis LIGHT GROWTH Culture, Blood 2 [[id number]] Collected: 09/02/22 0625 Order Status: Completed Specimen: Blood Updated: 09/07/22 07 Specimen Description .BLOOD Special Requests R HAND 3ML Culture NO GROWTH 5 DAYS Culture, Blood 1 [[id number]] Collected: 09/02/22 0620 Order Status: Completed Specimen: Blood Updated: 09/07/22 07 Specimen Description .BLOOD Special Requests R FA 5ML Culture NO GROWTH 5 DAYS MRSA DNA Probe, Nasal [[id number]] Collected: 09/02/22 0600 Order Status: Completed Specimen: Nasal Updated: 09/03/22 1028 Specimen Description .NASAL SWAB MRSA, DNA, Nasal NEGATIVE Comment: NEGATIVE: MRSA DNA not detected by nucleic acid amplification. Results should be used as an adjunct to nosocomial control efforts to identify patients needing enhanced precautions. The test is not intended to identify patients with staphylococcal infections. Results should not be used to guide or monitor treatment for MRSA infections. Culture, Urine [[id number]] Collected: 09/02/22 0138 Order Status: Completed Specimen: Urine, clean catch Updated: 09/03/22 0832 Specimen Description .CLEAN CATCH URINE Culture NO GROWTH Culture, Blood 1 [[id number]] Collected: 09/02/22 0104 Order Status: Completed Specimen: Blood Updated: 09/07/22 0205 Specimen Description .BLOOD Special Requests RJUG, 10ML Culture NO GROWTH 5 DAYS Culture, Blood 1 [[id number]] Collected: 09/02/22 0030 Order Status: Canceled Specimen: Blood Review of Systems Unable to perform ROS: Intubated Physical Examination : Physical Exam Constitutional: Appearance: She is well-developed. She is obese. Interventions: She is sedated and intubated. HENT: Head: Normocephalic and atraumatic. Cardiovascular: Rate and Rhythm: Regular rhythm. Heart sounds: Normal heart sounds. Pulmonary: Effort: Pulmonary effort is normal. She is intubated. Breath sounds: Normal breath sounds. Abdominal: General: Bowel sounds are normal. Palpations: Abdomen is soft. Musculoskeletal: Cervical back: Neck supple. Skin: General: Skin is warm and dry. Comments: There is a dressing in the perineal area which was not removed Laboratory data: I have independently reviewed the followinglabs: CBC with Differential: Recent Labs 09/12/22 0429 09/13/22 0647 WBC 12.1* 13.9* HGB 12.9 12.2 HCT 42.6 37.7 PLT 235 379 LYMPHOPCT 25 32 MONOPCT 11 10 BMP: Recent Labs 09/11/22 0328 09/11/22 1829 09/12/22 0429 09/12/22 1844 09/13/22 0419 09/13/22 0647 NA 151* < > 151* 150* -- 148* K 3.2* < > 4.6 3.8 -- 4.1 CL 106 < > 102 106 -- 107 CO2 30 < > 31 32* -- 29 BUN 68* -- 64* -- -- 60* CREATININE 2.2* -- 2.1* -- 1.7* 1.7* MG 2.0 -- -- -- -- -- < > = values in this interval not displayed. Hepatic Function Panel: No results for input(s): PROT, LABALBU, BILIDIR, IBILI, BILITOT, ALKPHOS, ALT, AST in the last 72 hours. No results found for: PROCAL Lab Results Component Value Date/Time CRP 489.6 09/02/2022 01:35 AM No results found for: SEDRATE No results found for: DDIMER No results found for: FERRITIN No results found for: LDH No results found for: FIBRINOGEN No results found for requested labs within last 30 days. No results found for: COVID19 No results for input(s): YENIFER in the last 72 hours. Imaging Studies: RETROPERITONEAL ULTRASOUND OF THE KIDNEYS AND URINARY BLADDER 09/03/2022 IMPRESSION: 1. Simple midpole left renal cyst measuring 2.7 cm. 2. No hydronephrosis. Specimen Collected: 09/03/22 12:52 EDT Last Resulted: 09/03/22 13:03 EDT Cultures: Culture, Blood 1 [[id number]] Collected: 09/02/22 0620 Order Status: Completed Specimen: Blood Updated: 09/07/22724 Specimen Description .BLOOD Special Requests R FA 5ML Culture NO GROWTH 5 DAYS Culture, Blood 2 [[id number]] Collected: 09/02/22624 Order Status: Completed Specimen: Blood Updated: 09/07/22724 Specimen Description .BLOOD Special Requests R HAND 3ML Culture NO GROWTH 5 DAYS Culture, Blood 1 [[id number]] Collected: 09/02/22 0104 Order Status: Completed Specimen: Blood Updated: 09/07/22 0205 Specimen Description .BLOOD Special Requests RJUG, 10ML Culture NO GROWTH 5 DAYS MRSA DNA Probe, Nasal [[id number]] Collected: 09/02/22 0600 Order Status: Completed Specimen: Nasal Updated: 09/03/22 1028 Specimen Description .NASAL SWAB MRSA, DNA, Nasal NEGATIVE Comment: NEGATIVE: MRSA DNA not detected by nucleic acid amplification. Results should be used as an adjunct to nosocomial control efforts to identify patients needing enhanced precautions. The test is not intended to identify patients with staphylococcal infections. Results should not be used to guide or monitor treatment for MRSA infections. Culture, Urine [[id number]] Collected: 09/02/22 0138 Order Status: Completed Specimen: Urine, clean catch Updated: 09/03/22 0832 Specimen Description .CLEAN CATCH URINE Culture NO GROWTH Medications: chlorothiazide 250 mg IntraVENous BID albumin human 25% 25 g IntraVENous BID oxyCODONE 15 mg Oral Q6H chlordiazePOXIDE 10 mg Oral TID meropenem 1,000 mg IntraVENous Q12H insulin glargine 30 Units SubCUTAneous BID hydrALAZINE 25 mg Oral 3 times per day [Held by provider] amLODIPine 5 mg Oral Daily PARoxetine 10 mg Per NG tube Daily insulin lispro 0-16 Units SubCUTAneous Q6H RT lansoprazole 30 mg Per G Tube QAM AC [Held by provider] bumetanide 2 mg IntraVENous BID sodium chloride flush 5-40 mL IntraVENous 2 times per day heparin (porcine) 5,000 Units SubCUTAneous 3 times per day ipratropium 0.5 mg Nebulization Q4H WA RT [facility] [place] CNP Perfect [employer] messaging OFFICE: Thank you for allowing us to participate in the care of this patient. Please call with questions. This note is created with the assistance of a speech recognition program. While intending to generate a document that actually reflects the content of the visit, the document can still have some errors including those of syntax and sound a like substitutions which may escape proof reading. In such instances, actual meaning can be extrapolated by contextual diversion. ATTESTATION: I have discussed the case, including pertinent history and exam findings with the SELLING SPECIALIST. I have evaluated the History, physical findings and pictures of the patient and the william elements of the encounter have been performed by me. I have reviewed the laboratory data, other diagnostic studies and discussed them with the SELLING SPECIALIST. I have updated the medical record where necessary. I agree with the assessment, plan and orders as documented by the SELLING SPECIALIST. In addition diagnostic and decision making elements include: Left perineal, thigh/gluteal necrotizing soft tissue infection status post surgical drainage 09/02/2022 Status post second look/I&D 09/03/2022 Status post irrigation and closure of left thigh and groin and buttock soft tissue defect 09/04/2022 Acute respiratory failure currently ventilator dependent Shock-resolved Diabetes mellitus with DKA currently on insulin drip Extreme obesity Acute kidney injury with unknown baseline creatinine COPD Elements of Medical Decision Making: Note: I have independently performed the steps listed below as part of the medical decision making and evaluation. Examined patient. Discussed with patient Discussed with referring physician or service Labs, medications, radiologic studies were reviewed with personal review of films Large amounts of data were reviewed Discussed with nursing Staff, urban and regional planner Infection Control and Prevention measures reviewed All prior entries were reviewed Reviewed Administration of medications as ordered Established Prognosis: Guarded Discharge planning reviewed Reviewed need for follow up as outpatient. Lyndon Garcia MD. NEPHROLOGY PROGRESS NOTE ASSESSMENT Transferred from outlying facility where she presented with pain redness swelling involving the left buttock area and groin. Further work-up showed evidence of necrotizing fasciitis along with diabetic ketoacidosis. She was also hypotensive needing fluids and pressor support. Underwent multiple debridement procedure and sustained acute kidney injury during hospitalization prompting nephrology consultation. #1 acute kidney injury nonoliguric secondary to ischemic ATN (osmotic diuresis related to DKA/infection-necrotizing fasciitis/hypotension)-creatinine peaked to 3.3 and improving Baseline creatinine unknown #2 hypernatremia secondary to free water deficit/diuretic use #3 volume overload -iatrogenic/capillary leak #4 acute hypoxic respiratory failure #5 necrotizing fasciitis involving left groin area status post multiple I&D and debridement procedures #6 diabetic ketoacidosis resolved #7 morbid obesity PLAN #1 continue free water enteral feedings #2 IV Diuril #3 antibiotics as per estimated GFR #4 anticipate continuing improvement of renal function SUBJECTIVE Attempting to wean off today and extubate possible. No acute hemodynamic issues overnight. Off pressors. Receiving enteral feedings along with free water to offset hypernatremia Diuretics on hold though she is in positive cumulative balance CT abdomen pelvis findings noted. Renal function continues to improve Received antibiotics for necrotizing fasciitis. JESSICA drain removed from left thigh but 1 more JESSICA drain still remains in place OBJECTIVE Vitals: 09/13/22 0515 09/13/22 0600 09/13/22 0739 09/13/22 0746 BP: 107/67 Pulse: 56 54 57 Resp: 20 21 19 23 Temp: TempSrc: SpO2: 99% 97% 100% Weight: Height: 24HR INTAKE/OUTPUT: Intake/Output Summary (Last 24 hours) at 09/13/2022 0937 Last data filed at 09/13/2022 0600 Gross per 24 hour Intake 3713.26 ml Output 2396 ml Net 1317.26 ml General appearance: Mechanical ventilation Respiratory::vesicular breath sounds,no wheeze/crackles Cardiovascular:S1 S2 normal,no gallop or organic murmur. Abdomen:Non tender/non distended.Bowel sounds present Extremities: No Cyanosis or Clubbing, present lower extremity edema Neurological: Mechanical ventilation MEDICATIONS Scheduled Meds: chlorothiazide 250 mg IntraVENous BID albumin human 25% 25 g IntraVENous BID oxyCODONE 15 mg Oral Q6H chlordiazePOXIDE 10 mg Oral TID meropenem 1,000 mg IntraVENous Q12H insulin glargine 30 Units SubCUTAneous BID hydrALAZINE 25 mg Oral 3 times per day [Held by provider] amLODIPine 5 mg Oral Daily PARoxetine 10 mg Per NG tube Daily fluconazole 200 mg IntraVENous Q24H insulin lispro 0-16 Units SubCUTAneous Q6H RT lansoprazole 30 mg Per G Tube QAM AC [Held by provider] bumetanide 2 mg IntraVENous BID sodium chloride flush 5-40 mL IntraVENous 2 times per day heparin (porcine) 5,000 Units SubCUTAneous 3 times per day ipratropium 0.5 mg Nebulization Q4H WA RT Continuous Infusions: propofol 10 mcg/kg/min (09/13/22 05) dexmedetomidine 1 mcg/kg/hr (09/13/22 0614) dextrose PRN Meds: acetaminophen, fentanNYL OR fentanNYL, glucose, dextrose bolus OR dextrose bolus, glucagon (rDNA), dextrose, sodium chloride flush, dextrose bolus, sodium phosphate IVPB OR sodium phosphate IVPB OR sodium phosphate IVPB, polyethylene glycol, ipratropium 0.5 mg-albuterol 2.5 mg, albuterol Home Meds: Medications Prior to Admission: pravastatin (PRAVACHOL) 20 MG tablet, Take 1 tablet by mouth daily albuterol sulfate HFA (VENTOLIN HFA) 108 (90 Base) MCG/ACT inhaler, Inhale 2 puffs into the lungs 4 times daily as needed for Wheezing hydroCHLOROthiazide (HYDRODIURIL) 25 MG tablet, Take 1 tablet by mouth daily metFORMIN (GLUCOPHAGE-XR) 500 MG extended release tablet, Take 1 tablet by mouth 2 times daily PARoxetine (PAXIL) 10 MG tablet, Take 1 tablet by mouth every morning lisinopril (PRINIVIL;ZESTRIL) 5 MG tablet, Take 1 tablet by mouth daily glipiZIDE (GLUCOTROL) 10 MG tablet, Take 1 tablet by mouth 2 times daily insulin NPH (HUMULIN N;NOVOLIN N) 100 UNIT/ML injection vial, Inject 30 Units into the skin in the morning and 30 Units in the evening. INVESTIGATIONS Last 3 CMP: Recent Labs 09/11/22 0328 09/11/22 1829 09/12/22 0429 09/12/22 1844 09/13/22 0419 09/13/22 0647 NA 151* < > 151* 150* -- 148* K 3.2* < > 4.6 3.8 -- 4.1 CL 106 < > 102 106 -- 107 CO2 30 < > 31 32* -- 29 BUN 68* -- 64* -- -- 60* CREATININE 2.2* -- 2.1* -- 1.7* 1.7* CALCIUM 8.7 -- 8.8 -- -- 8.4* < > = values in this interval not displayed. Last 3 CBC: Recent Labs 09/11/2232709/12/22 0429 09/13/22 0647 WBC 13.0* 12.1* 13.9* RBC 4.42 4.34 3.87* HGB 13.3 12.9 12.2 HCT 41.9 42.6 37.7 MCV 94.8 98.2 97.4 MCH 30.1 29.7 31.5 MCHC 31.7 30.3 32.4 RDW 12.3 12.6 12.6 PLT 223 235 379 MPV 10.5 11.5 11.6 Please do not hesitate to call with questions This note is created with the assistance of a speech-recognition program. While intending to generate a document that actually reflects the content of the visit, no guarantees can be provided that every mistake has been identified and corrected by editing Moises Britt MD MD, [facility] (), FACP 09/13/2022 9:37 AM [facility] 09/13/22 0746 NICU Vent Information Vent Mode (S) CPAP Pressure Support (S) 8 cmH20 PEEP/CPAP (cmH2O) (S) 5 CPAP trial initiated. Pt. Tolerating well. INTENSIVE CARE UNIT Resident Physician Progress Note Patient - Divina Amin Date of Admission - 09/02/2022 12:12 AM Date of Evaluation - 09/13/2022 Room and Bed Number - 3011/3011-01 Hospital Day - 11 Chief Complaint Patient presents with Altered Mental Status SUBJECTIVE: HISTORY OF PRESENT ILLNESS: Divina Amin is a 61 y.o. with a past medical history of type 2 diabetes, asthma, COPD and obesity. [facility] [place] after concerns for necrotizing fasciitis. Patient was [facility] and [facility], she was noted to have an elevated WBC count and abscess in the left groin which showed subcutaneous gas. Patient received 3 L of crystalloid fluids and a dose of vancomycin prior to transfer. In our emergency department the patient was altered ANO x0, VBG showed pH of 6.79, WBC count of 26, blood glucose in the 500s, beta hydroxybutyrate of 10, bicarb of less than 6. Patient was immediately evaluated by surgical team and another 2 L of fluids was given. Patient was initially started on DKA protocol in the emergency department. 1 amp of bicarb was given to her. On initial icu evaluation she was altered, not answering questions and not responding fully. Seem to be in acute distress. patient on a continuous bicarb drip, insulin drip , meropenem and linezolid by surgery team due to history of penicillin allergy. potassium was 5.2. Underwent debridement 09/02/2022, intubated for procedure Started on DKA protocol Repeat debridement 09/03. Repeat washout and closure on 09/04 OVERNIGHT EVENTS: Remains intubated and sedated on precedex 1.0 and propofol 10 no pressors UOP 2.77L (0.9 cc/kg/hr) BP 126/73, pulse 56, tmax 99.1 Drain output 26 cc over 24 hours. No stool Tube feeds at goal 50 cc/hr BP: 101/67 MAP: 78 HR: 54 Tmax: 100.5 AC/PRVC 20/400/5/35 AB.453/47.2/79.7/BE 7.9 ID: meropenem and fluconazole Yesterday seen by nephrology and free water increased to 300 cc every 4 hours. Continue to trend sodiums in setting of hypernatremia. Unchanged sodium last night 150 from 151. Infectious disease recommending to continue meropenem and fluconazole. General surgery continues to follow for drain management. JESSICA #1 removed from left thigh yesterday by general surgery. Urology continues to monitor and recommends continue to wean sedation. Yesterday we increased p.o. oxycodone and attempt to wean IV sedation. This morning leukocytosis increased to 13.9 from 12.1 yesterday. Patient has been febrile overnight. F.A.S.T. M. H.U.G.S. B.I.D. Feeding Diet: Diet NPO ADULT TUBE FEEDING; Orogastric; Peptide Based High Protein; Continuous; 10; Yes; 10; Q 4 hours; 50; 30; Q 4 hours Fluids: 3 water 300 mg every 4 hours. Family: will update when here Analgesic: Jamila 15 mg every 6 hours, fentanyl 50/100 every 2 hours as needed. Librium Sedation: Precedex 1.0, propofol 10, Thrombo-prophylaxis: [] Enoxaparin, [x] Unfract. Heparin Subcutaneously, [] EPC Cuffs Mobility: PT/OT Heads up: NA Ulcer prophylaxis: [] PPI Agent, [x] G3Apoyy, [] Sucralfate, [] Other: Glycemic control: Lantus 30 units twice daily, lispro high-dose correction Spontaneous breathing trial: Daily Bowel regimen/urine output: GlycoLax daily urine, urine output 0.9 cc per kilogram per hour Indwelling catheter/lines: ET tube, right IJ central line, FMS, OG, external urinary catheter, JESSICA x1 De-escalation: wean sedation as tolerated OBJECTIVE: VITAL SIGNS: Patient Vitals for the past 8 hrs: BP Temp Temp src Pulse Resp SpO2 09/13/22 0600 107/67 -- -- 56 21 99 % 09/13/22 0515 -- -- -- -- 20 -- 09/13/22 0500 103/65 -- -- 56 20 97 % 09/13/22 0417 -- -- -- 58 24 98 % 09/13/22 0400 111/69 100 F (37.8 C) Oral 56 23 98 % 09/13/22 0328 -- -- -- 56 22 98 % 09/13/22 0300 113/69 -- -- 56 22 98 % 09/13/22 0200 117/70 -- -- 56 23 98 % 09/13/22 0100 115/68 -- -- 55 21 98 % 09/13/22 0024 -- -- -- -- 22 -- 09/13/22 0000 111/62 100.4 F (38 C) Oral 58 23 100 % 09/12/22 2350 -- -- -- 55 22 98 % Last Body weight: Wt Readings from Last 3 Encounters: 09/02/22 297 lb 2.9 oz (134.8 kg) Body Mass Index : Body mass index is 54.35 kg/m . Tmax over 24 hours: Temp (24hrs), Av.2 F (37.9 C), Min:99.6 F (37.6 C), Max:100.6 F (38.1 C) Ins/Outs: In: 4099.4 [I.V.:1097.1; NG/GT:2703] Out: 2796 [Urine:2770; Drains:26] PHYSICAL EXAM: Constitutional: Intubated and sedated EENT: PERRLA, sclera clear, anicteric, oropharynx clear, no lesions, neck supple with midline trachea. R Ij triple lumen Neck: Supple, symmetrical, trachea midline, no adenopathy, thyroid symmetric, no jvd skin normal Respiratory: clear to auscultation, no wheezes or rales and unlabored breathing. No intercostal tenderness Cardiovascular: regular rate and rhythm, normal S1, S2, no murmur noted and 2+ pulses throughout Abdomen: Debrided lower abdominal wound, Extremities: peripheral pulses normal, no pedal edema, no clubbing or cyanosis MEDICATIONS: Scheduled Meds: oxyCODONE 15 mg Oral Q6H chlordiazePOXIDE 10 mg Oral TID meropenem 1,000 mg IntraVENous Q12H insulin glargine 30 Units SubCUTAneous BID hydrALAZINE 25 mg Oral 3 times per day amLODIPine 5 mg Oral Daily PARoxetine 10 mg Per NG tube Daily fluconazole 200 mg IntraVENous Q24H insulin lispro 0-16 Units SubCUTAneous Q6H RT lansoprazole 30 mg Per G Tube QAM AC [Held by provider] bumetanide 2 mg IntraVENous BID sodium chloride flush 5-40 mL IntraVENous 2 times per day heparin (porcine) 5,000 Units SubCUTAneous 3 times per day ipratropium 0.5 mg Nebulization Q4H WA RT Continuous Infusions: propofol 10 mcg/kg/min (09/13/22520) dexmedetomidine 1 mcg/kg/hr (09/13/22613) dextrose PRN Meds: acetaminophen, 650 mg, Q4H PRN fentanNYL, 50 mcg, Q2H PRN Or fentanNYL, 100 mcg, Q2H PRN glucose, 4 tablet, PRN dextrose bolus, 125 mL, PRN Or dextrose bolus, 250 mL, PRN glucagon (rDNA), 1 mg, PRN dextrose, , Continuous PRN sodium chloride flush, 5-40 mL, PRN dextrose bolus, 125 mL, PRN sodium phosphate IVPB, 10 mmol, PRN Or sodium phosphate IVPB, 15 mmol, PRN Or sodium phosphate IVPB, 20 mmol, PRN polyethylene glycol, 17 g, Daily PRN ipratropium 0.5 mg-albuterol 2.5 mg, 1 Dose, Q4H PRN albuterol, 2.5 mg, As Directed RT PRN SUPPORT DEVICES: [x] Ventilator [] BIPAP [] Nasal Cannula [] Room Air VENT SETTINGS (Comprehensive) (if applicable): Vent Information Ventilator ID: [id number] Equipment Changed: HME, Expiratory Filter Ventilator Initiate: Yes Vent Mode: AC/PRVC Additional Respiratory Assessments Pulse: 56 Respirations: 21 SpO2: 99 % End Tidal CO2: 42 (%) Position: Semi-Multani's Humidification Source: HME Circuit Condensation: Drained Cuff Pressure (cm H2O): (MOV) Lab Results Component Value Date/Time MODE [facility] 09/12/2022 04:22 AM ABGs: No results found for: PH, PCO2, PO2, HCO3, O2SAT DATA: Complete Blood Count: Recent Labs 09/11/22 0328 09/12/22 0429 09/13/22 0647 WBC 13.0* 12.1* 13.9* RBC 4.42 4.34 3.87* HGB 13.3 12.9 12.2 HCT 41.9 42.6 37.7 MCV 94.8 98.2 97.4 MCH 30.1 29.7 31.5 MCHC 31.7 30.3 32.4 RDW 12.3 12.6 12.6 PLT 223 235 379 MPV 10.5 11.5 11.6 Last 3 Blood Glucose: Recent Labs 09/10/22 1554 09/11/22 0328 09/12/22 0429 GLUCOSE 210* 96 96 PT/INR: Lab Results Component Value Date/Time PROTIME 17.5 09/02/2022 01:35 AM INR 1.5 09/02/2022 01:35 AM PTT: Lab Results Component Value Date/Time APTT 36.0 09/02/2022 01:35 AM Basic Metabolic Profile: Recent Labs 09/10/22 1554 09/11/22 0328 09/11/22 1829 09/12/22 0429 09/12/22 1844 09/13/22 0419 NA 147* 151* 147* 151* 150* -- K 3.7 3.2* 3.9 4.6 3.8 -- CL 105 106 102 102 106 -- CO2 29 30 33* 31 32* -- BUN 71* 68* -- 64* -- -- CREATININE 2.2* 2.2* -- 2.1* -- 1.7* GLUCOSE 210* 96 -- 96 -- -- Liver Function: No results for input(s): PROT, LABALBU, ALT, AST, GGT, ALKPHOS, BILITOT in the last 72 hours. Magnesium: Lab Results Component Value Date/Time MG 2.0 09/11/2022 03:28 AM MG 1.9 09/05/2022 04:23 AM MG 1.8 09/05/2022 12:22 AM Phosphorus: Lab Results Component Value Date/Time PHOS 3.7 09/05/2022 04:23 AM PHOS 3.2 09/05/2022 12:22 AM PHOS 3.5 09/04/2022 08:09 PM Ionized Calcium: Lab Results Component Value Date/Time CAION 1.25 09/02/2022 04:10 AM Urinalysis: Lab Results Component Value Date/Time NITRU NEGATIVE 09/02/2022 01:37 AM COLORU Yellow 09/02/2022 01:37 AM PHUR 5.5 09/02/2022 01:37 AM WBCUA 0 TO 2 09/02/2022 01:37 AM RBCUA 20 TO 50 09/02/2022 01:37 AM MUCUS 1+ 09/02/2022 01:37 AM SPECGRAV 1.023 09/02/2022 01:37 AM LEUKOCYTESUR NEGATIVE 09/02/2022 01:37 AM UROBILINOGEN Normal 09/02/2022 01:37 AM BILIRUBINUR NEGATIVE 09/02/2022 01:37 AM GLUCOSEU 3+ 09/02/2022 01:37 AM KETUA LARGE 09/02/2022 01:37 AM HgBA1c: Lab Results Component Value Date/Time LABA1C 12.5 09/02/2022 06:03 AM TSH: No results found for: TSH Lactic Acid: No results found for: LACTA Troponin: No results for input(s): TROPONINI in the last 72 hours. Microbiology: Urine Culture: No components found for: CURINE Blood Culture: No components found for: CBLOOD, CFUNGUSBL Sputum Culture: No components found for: CSPUTUM Radiology/Imaging: CT HEAD WO CONTRAST Final Result Study limited by motion artifact. No acute intracranial abnormality. Mild age-appropriate atrophy and small-vessel disease ischemic changes. Patient is intubated. CT CHEST ABDOMEN PELVIS WO CONTRAST Additional Contrast? None Preliminary Result 1. Drainage catheters are noted in the left groin/perineum without drainable fluid collection or new soft tissue gas. 2. Anasarca. 3. New bilateral pleural effusions with patchy ground-glass opacities in the left upper lobe, likely infectious or inflammatory in etiology. 4. No new acute findings in the abdomen or pelvis. XR CHEST PORTABLE Final Result Patchy airspace opacities most pronounced in the right mid to lower lung view, may be related to mild pulmonary edema versus pneumonia. Mild bilateral pleural effusions. US RENAL COMPLETE Final Result 1. Simple midpole left renal cyst measuring 2.7 cm. 2. No hydronephrosis. XR CHEST PORTABLE Final Result Decreased pulmonary edema Otherwise, stable chest XR ABDOMEN FOR NG/OG/NE TUBE PLACEMENT Final Result OG tube in satisfactory position. XR CHEST (SINGLE VIEW FRONTAL) Final Result Endotracheal tube in satisfactory position. Right IJ line unchanged. Mild congestive failure, stable. XR CHEST PORTABLE Final Result Right IJ catheter with tip at the inferior SVC. No pneumothorax. Findings of interstitial pulmonary edema. 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 Septic shock (HCC) 09/06/2022 Acute respiratory failure with hypoxia ([facility]) 09/05/2022 Diabetic acidosis without coma ([facility]) 09/05/2022 GEMA (obstructive sleep apnea) 09/05/2022 VELMA (acute kidney injury) ([facility]) 09/03/2022 Necrotizing fasciitis ([facility]) 09/02/2022 Metabolic acidosis 09/02/2022 Hypernatremia 09/02/2022 Hypokalemia 09/02/2022 PLAN: PLAN/MEDICAL DECISION MAKING: Neurologic: Patient following commands with all 4 extremities intermittently, intermittently opens eyes to voice. Neurology consult. Recommend weaning sedation and MRI of brain versus EEG if encephalopathy does not improve. Neuro checks per protocol On propofol and precedex, wean as tolerated roxicodone 15 mg every 6 hours, fentanyl 50/100 mcg Every 2 hours as needed. Home Paxil daily Cardiovascular: History of hypertension, on hydrochlorothiazide 25 mg daily at home, amlodipine 5 mg daily hydralazine 25 mg every 8 hours Hemodynamically stable MAP goal 65 Pulmonary: History of asthma and COPD, on albuterol at home Atrovent nebulization ordered due to tachycardia Maintain oxygen sats >92%Maintain oxygen sats >92% Pulmonary toilet Vent Information Ventilator ID: [id number] Equipment Changed: HME, Expiratory Filter Ventilator Initiate: Yes Vent Mode: AC/PRVC GI/Nutrition On tube feeds at goal rate 50 cc/h Ulcer Prophylaxis: Prevacid daily Diet:Diet NPO ADULT TUBE FEEDING; Orogastric; Peptide Based High Protein; Continuous; 10; Yes; 10; Q 4 hours; 50; 300; Q 4 hours Bowel regimen with GlycoLax daily as needed Renal/Fluid/Electrolyte Metabolic acidosis due to DKA. Had bicarb drip. Switched to D5/half normal. Off IVF VELMA with poor urine output, nephrology following. Recommended to hold Bumex and increase free water to 300 cc every 4 hours I/O: In: 4099.4 [I.V.:1097.1; NG/GT:2703] Out: 2796 [Urine:2770; Drains:26] Monitor electrolytes, replace PRN K 4.1 Na 148 (150) ID Necrotizing fasciitis in the left groin S/p multiple debridements of necrotizing soft tissue infection of the left groin/perineum. S/p washout and closure 09/04 JESSICA #1 removed from left thigh yesterday by general surgery. Infectious disease and surgery following WBC: Lab Results Component Value Date WBC 13.9 (H) 09/13/2022 Tmax: Temp (24hrs), Av.2 F (37.9 C), Min:99.6 F (37.6 C), Max:100.6 F (38.1 C) Antimicrobials: Meropenem and Diflucan. ID following Hematology: Recent Labs 09/11/22 0328 09/12/22 0429 09/13/22 0647 HGB 13.3 12.9 12.2 stable Endocrine: Type II diabetes: had insulin drip Per DKA protocol. Now on Lantus 30 BID. and MDSS glucose controlled - most recent BGL is Recent Labs 09/10/22 1554 09/11/22 0328 09/12/22 0429 GLUCOSE 210* 96 96 DVT Prophylaxis Heparin Discharge Needs: PT, OT, and Case Management CODE STATUS: Full Code DISPOSITION: [x] To remain ICU: [] OK for out of ICU from Critical Care standpoint Debi Brooke DO Emergency Medicine Resident PGY2 [facility]; [place], [place] 09/13/2022, 7:29 AM Associated attestation - Jose Carlos Way MD - 09/13/2022 8:09 PM EDT Attending Physician Statement I have discussed the case of Divina Amin, including pertinent history and exam findings with the resident/fellow/medical student/CLOUD ADMINISTRATOR/PA. I have seen and examined the patient and the william elements of the encounter have been performed by me. I agree with the assessment, plan and orders as documented by the resident/fellow/medical student/CLOUD ADMINISTRATOR/PA With changes made to the note as needed. Pt was seen during rounds. Review of Systems: In addition to the pertinent positives and negatives as stated within HPI and the review of systems as documented in their notes, all other systems were reviewed when able to and are reported negative. Patient is on the ventilator on 30% oxygen ABG with acute metabolic alkalosis with some compensation Fluid balance is +8.3 L Improving hypernatremia Renal function is improving with creatinine of 1.7 On subcutaneous heparin and lansoprazole Stable anemia Leukocytosis slightly worse, continue to monitor Tolerating tube feeding Total critical care time caring for this patient with life threatening, unstable organ failure, including direct patient contact, management of life support systems, review of data including imaging and labs, discussions with other team members and physicians at least 30 Min so far today, excluding procedures. Jose Carlos Way MD 09/13/2022 8:09 PM General Surgery Update: JESSICA drain #1 removed from left thigh at bedside. Minimal SS drainage. No issues with removal. Fluff and tegaderm dressing placed. One JESSICA drain remains in place in left thigh. Imelda Kc DO General Surgery Resident Renal Progress Note Patient : Divina Amin; 61 y.o. Location: 3011/3011-01 Attending: Nader Smith MD Admit Date: 09/02/2022 Hospital Day: 10 Subjective: Patient was seen and examined. Patient was intubated and on 35% FiO2. Continues to have good urine output. Patient is in positive fluid balance close to 1.5 L. Bumex is on hold due to hyponatremia. Continues to have good urine output. Creatinine is essentially unchanged in last 24 hours. Return of her creatinine as follows: Latest Reference Range & Units 09/10/22 04:35 09/10/22 15:54 09/11/22 03:28 09/12/22 04:29 Creatinine 0.5 - 0.9 mg/dL 2.3 (H) 2.2 (H) 2.2 (H) 2.1 (H) Tubw feed is in progress and she is tolerating well. Patient remains hemodynamically stable History reviewed: 61-year-old female came from outside facility with pain and redness involving involving her left buttock area and groin and was found to have necrotizing fasciitis, got transferred to [facility] for further management. She was noted to also have DKA with severe metabolic acidosis with pH about 6.8 with associated shock and VELMA. She was started on vasopressors, was taken to the OR by surgery with I&D performed. Started on bicarb containing fluids as well as insulin. Nephrology consulted for VELMA, was started on Lasix drip. Outpatient Medications: Medications Prior to Admission: pravastatin (PRAVACHOL) 20 MG tablet, Take 1 tablet by mouth daily albuterol sulfate HFA (VENTOLIN HFA) 108 (90 Base) MCG/ACT inhaler, Inhale 2 puffs into the lungs 4 times daily as needed for Wheezing hydroCHLOROthiazide (HYDRODIURIL) 25 MG tablet, Take 1 tablet by mouth daily metFORMIN (GLUCOPHAGE-XR) 500 MG extended release tablet, Take 1 tablet by mouth 2 times daily PARoxetine (PAXIL) 10 MG tablet, Take 1 tablet by mouth every morning lisinopril (PRINIVIL;ZESTRIL) 5 MG tablet, Take 1 tablet by mouth daily glipiZIDE (GLUCOTROL) 10 MG tablet, Take 1 tablet by mouth 2 times daily insulin NPH (HUMULIN N;NOVOLIN N) 100 UNIT/ML injection vial, Inject 30 Units into the skin in the morning and 30 Units in the evening. Current Medications: Scheduled Meds: meropenem 1,000 mg IntraVENous Q12H insulin glargine 30 Units SubCUTAneous BID hydrALAZINE 25 mg Oral 3 times per day amLODIPine 5 mg Oral Daily oxyCODONE 5 mg Oral Q6H PARoxetine 10 mg Per NG tube Daily fluconazole 200 mg IntraVENous Q24H insulin lispro 0-16 Units SubCUTAneous Q6H RT lansoprazole 30 mg Per G Tube QAM AC [Held by provider] bumetanide 2 mg IntraVENous BID sodium chloride flush 5-40 mL IntraVENous 2 times per day heparin (porcine) 5,000 Units SubCUTAneous 3 times per day ipratropium 0.5 mg Nebulization Q4H WA RT Input/Output: I/O last 3 completed shifts: In: 5584.4 [I.V.:1852.4; NG/GT:3269; IV Piggyback:463] Out: 8538 [Urine:8410; Drains:78; Stool:50] Vital Signs: Temperature: Temp: 100.1 F (37.8 C) TMax: Temp (24hrs), Av.4 F (37.4 C), Min:98.9 F (37.2 C), Max:100.1 F (37.8 C) Respirations: Respirations: 23 Pulse: Pulse: 57 BP: BP: 123/71 BP Range: Systolic (24hrs), Av , Min:111 , Max:134 Diastolic (24hrs), Av, Min:65, Max:77 Physical Examination: General: Sedated on ventilator. She is on 30% FiO2 HEENT: Atraumatic and normocephalic Eyes: Pupils are reactive to light neck: Hard to assess JVD and no thyromegaly. Chest: Bilateral air entry and clear Cardiac: S1 S2 RR no murmur Abdomen: Soft, obese, non-tender, no masses or organomegally appreciable, BS sluggish. : No suprapubic or flank tenderness. Neuro: Sedated on ventilator. Skin: No rashes and have good turgor Extremities: Minimal edema Labs: Recent Labs 09/10/22 0435 09/11/22 0328 09/12/22 0429 WBC 13.4* 13.0* 12.1* RBC 4.44 4.42 4.34 HGB 13.4 13.3 12.9 HCT 42.3 41.9 42.6 MCV 95.3 94.8 98.2 MCH 30.2 30.1 29.7 MCHC 31.7 31.7 30.3 RDW 12.3 12.3 12.6 PLT 234 223 235 MPV 10.3 10.5 11.5 BMP: Recent Labs 09/10/22 1554 09/11/22 0328 09/11/22 1829 09/12/22 0429 NA 147* 151* 147* 151* K 3.7 3.2* 3.9 4.6 CL 105 106 102 102 CO2 29 30 33* 31 BUN 71* 68* -- 64* CREATININE 2.2* 2.2* -- 2.1* GLUCOSE 210* 96 -- 96 CALCIUM 8.8 8.7 -- 8.8 Magnesium: Recent Labs 09/11/22 032 MG 2.0 SPEP: Lab Results Component Value Date/Time PROT 6.2 09/10/2022 04:35 AM C3: Lab Results Component Value Date/Time C3 128 09/04/2022 06:01 PM C4: Lab Results Component Value Date/Time C4 19 09/04/2022 06:01 PM Urinalysis/Chemistries: Lab Results Component Value Date/Time NITRU NEGATIVE 09/02/2022 01:37 AM COLORU Yellow 09/02/2022 01:37 AM PHUR 5.5 09/02/2022 01:37 AM WBCUA 0 TO 2 09/02/2022 01:37 AM RBCUA 20 TO 50 09/02/2022 01:37 AM MUCUS 1+ 09/02/2022 01:37 AM SPECGRAV 1.023 09/02/2022 01:37 AM LEUKOCYTESUR NEGATIVE 09/02/2022 01:37 AM UROBILINOGEN Normal 09/02/2022 01:37 AM BILIRUBINUR NEGATIVE 09/02/2022 01:37 AM GLUCOSEU 3+ 09/02/2022 01:37 AM KETUA LARGE 09/02/2022 01:37 AM Urine Sodium: Lab Results Component Value Date/Time DEANGELO 46 09/04/2022 06:02 PM Assessment: VELMA, nonoliguric secondary to ischemic ATN (osmotic diuresis related to DKA/infection-necrotizing fasciitis/hypotension). Patient creatinine unknown. Creatinine peaked at 3.4, improving. From last 3 days her creatinine in the range of 2.2 mg/dL. Continues to have good urine output. Bumex is on hold Necrotizing fasciitis involving left groin area s/p I&D on 09/02 on 09/03. Severe metabolic acidosis: Resolved DKA, now resolved. Circulatory shock requiring pressors. Called and now patient is off pressors obesity with diabetes mellitus. Significantly net positive intake, patient responded very well to diuretics, now diuretics on hold due to hypernatremia Hypernatremia. Hypokalemia. 10. Metabolic alkalosis Plan: Continue to hold Bumex. Start free water 300 mL every 4 hours Strict I's and O's. Repeat sodium this evening We will follow with you Nutrition Please ensure that patient is on a renal diet/TF. Avoid nephrotoxic drugs/contrast exposure. Jose Raul Harvey MD Nephrology Attending Physician [facility] 09/11/2022 Images from the original note were not included. [facility] Progress Note Divina Amin Date: 09/12/2022 LOS: 10 Reason for F/U : Necrotizing soft tissue infection Impression : Left perineal, thigh/gluteal necrotizing soft tissue infection status post surgical drainage 09/02/2022 Status post second look/I&D 09/03/2022 Status post irrigation and closure of left thigh and groin and buttock soft tissue defect 09/04/2022 Acute respiratory failure currently ventilator dependent Shock-resolved Diabetes mellitus with DKA currently on insulin drip Extreme obesity Acute kidney injury with unknown baseline creatinine COPD Recommendations: The patient continues on antimicrobial therapy with meropenem He was previously on linezolid which was discontinued 09/07/2022 Continue fluconazole which was added 09/07/2022 Continue local wound care Infection Control Recommendations: [place] precautions Discharge Planning: Estimated Length of IV antimicrobials: To be determined Patient will need Midline Catheter Insertion/ PICC line Insertion: No Patient will need: Home IV , Infusion Center, SNF, LTAC: Undetermined Patient willneed outpatient wound care: No Medical Decision making / Summary of Stay: Divina Amin is a 61 y.o.-year-old female who was initially admitted on 09/02/2022. Divina is a morbidly obese diabetic female with also a history of asthma/COPD and is currently intubated and the history is obtained from the daughter who is at bedside. It is my understanding that Divina has had a history of boils in her left groin area which have previously been drained in the past. She has certainly not needed to be hospitalized for these and she had been complaining of a boil/infection in her left groin for about a week at home. The patient ended up being started on Bactrim about a day ago but the daughter after getting home from work in the late afternoon yesterday found that Divina was out of it and was having difficulty ambulating going to the bathroom. She ended up calling EMS and the patient was taken to an outlying facility in [place] where work-up showed some leukocytosis, left groin soft tissue infection with some soft tissue gas and the patient was hypotensive. The patient received fluid resuscitation and was transferred here where blood sugars were elevated and the patient was started on the DKA protocol. The patient became more confused and was seen by the general surgery team started on antimicrobial therapy with meropenem and linezolid due to history of a penicillin allergy. The patient had an obvious wound on the left perineum/upper thigh that was protruding necrotic and fluctuant. The patient was taken to the operating room this morning underwent incision and drainage of her left thigh/left groin and buttocks abscess/soft tissue infection and there was a sinclair necrotizing tissue appreciated during the surgery. The margins included the left major labia majora, left upper thigh, left inferior groin, left perineum/gluteal area. The patient is currently in the intensive care unit and I was asked to evaluate and help with antibiotic choice. The patient was taken to the operating room 09/03/2022 and underwent second look/debridement procedure of the left groin/thigh area. The patient was taken to the operating room 09/04/2022 and underwent irrigation and closure of the left thigh groin buttock and soft tissue defect after the patient was found to have a clean wound base and there was placement of 2 flat JESSICA drains with multilayer closure. Current Evaluation:09/12/2022 BP 116/67 Pulse 58 Temp 99.6 F (37.6 C) (Oral) Resp 23 Ht 5' 2 (1.575 m) Wt 297 lb 2.9 oz (134.8 kg) SpO2 99% BMI 54.35 kg/m Temperature Range: Temp: 99.6 F (37.6 C) Temp Av.2 F (37.3 C) Min: 98.9 F (37.2 C) Max: 99.6 F (37.6 C) Patient evaluated in the ICU TMAX 99.6 VS stable The patient remains on mechanical ventilation with 30% FiO2 and 5 of PEEP. She is receiving propofol and precedex for sedation. Encephalopathy continues. CT head showed no acute abnormalities Possible MRI of the brain to be completed if encephalopathy continues. Medications reviewed: Diflucan completing on 09/12/22 Meropenem continues Bumex and free water given for VELMA with hypernatremia per Nephrology. Abdominal drains in place with serosanguinous drainage noted. CT chest on 09/09/22 showed small to moderate bilateral pleural effusions with adjacent atelectasis and patchy opacities in the MICHAEL. Sputum culture on 09/11 is showing light growth yeast. FMS is in place for liquid stool No other acute issues noted. Labs Reviewed 09/12/2022 BUN:64 Cr: 2.1 Na: 151 WBC: 12.1 Hgb: 12.9 Plt: 235 Cultures: Results Procedure Component Value Units Date/Time Culture, Respiratory [[id number]] (Abnormal) Collected: 09/11/22 0018 Order Status: Completed Specimen: Sputum Expectorated Updated: 09/12/22 0943 Specimen Description .EXPECTORATED SPUTUM Direct Exam >10, <25 NEUTROPHILS/LPF < 10 EPITHELIAL CELLS/LPF FEW YEAST Culture Chasity albicans/dubliniensis LIGHT GROWTH Culture, Blood 2 [[id number]] Collected: 09/02/22624 Order Status: Completed Specimen: Blood Updated: 09/07/22724 Specimen Description .BLOOD Special Requests R HAND 3ML Culture NO GROWTH 5 DAYS Culture, Blood 1 [[id number]] Collected: 09/02/22 0620 Order Status: Completed Specimen: Blood Updated: 09/07/22724 Specimen Description .BLOOD Special Requests R FA 5ML Culture NO GROWTH 5 DAYS MRSA DNA Probe, Nasal [[id number]] Collected: 09/02/22 0600 Order Status: Completed Specimen: Nasal Updated: 09/03/22 1028 Specimen Description .NASAL SWAB MRSA, DNA, Nasal NEGATIVE Comment: NEGATIVE: MRSA DNA not detected by nucleic acid amplification. Results should be used as an adjunct to nosocomial control efforts to identify patients needing enhanced precautions. The test is not intended to identify patients with staphylococcal infections. Results should not be used to guide or monitor treatment for MRSA infections. Culture, Urine [[id number]] Collected: 09/02/22 0138 Order Status: Completed Specimen: Urine, clean catch Updated: 09/03/22 0832 Specimen Description .CLEAN CATCH URINE Culture NO GROWTH Culture, Blood 1 [[id number]] Collected: 09/02/22 0104 Order Status: Completed Specimen: Blood Updated: 09/07/22 0205 Specimen Description .BLOOD Special Requests RJUG, 10ML Culture NO GROWTH 5 DAYS Culture, Blood 1 [[id number]] Collected: 09/02/22 0030 Order Status: Canceled Specimen: Blood Review of Systems Unable to perform ROS: Intubated Physical Examination : Physical Exam Constitutional: Appearance: She is well-developed. She is obese. Interventions: She is sedated and intubated. HENT: Head: Normocephalic and atraumatic. Cardiovascular: Rate and Rhythm: Regular rhythm. Heart sounds: Normal heart sounds. Pulmonary: Effort: Pulmonary effort is normal. She is intubated. Breath sounds: Normal breath sounds. Abdominal: General: Bowel sounds are normal. Palpations: Abdomen is soft. Musculoskeletal: Cervical back: Neck supple. Skin: General: Skin is warm and dry. Comments: There is a dressing in the perineal area which was not removed Laboratory data: I have independently reviewed the followinglabs: CBC with Differential: Recent Labs 09/11/22 0328 09/12/22 0429 WBC 13.0* 12.1* HGB 13.3 12.9 HCT 41.9 42.6 PLT 223 235 LYMPHOPCT 21* 25 MONOPCT 12 11 BMP: Recent Labs 09/11/22 0328 09/11/22 1829 09/12/22 0429 NA 151* 147* 151* K 3.2* 3.9 4.6 CL 106 102 102 CO2 30 33* 31 BUN 68* -- 64* CREATININE 2.2* -- 2.1* MG 2.0 -- -- Hepatic Function Panel: Recent Labs 09/10/22 0435 PROT 6.2* LABALBU 2.3* BILIDIR 0.1 IBILI 0.3 BILITOT 0.4 ALKPHOS 118* ALT 14 AST 64* No results found for: PROCAL Lab Results Component Value Date/Time CRP 489.6 09/02/2022 01:35 AM No results found for: SEDRATE No results found for: DDIMER No results found for: FERRITIN No results found for: LDH No results found for: FIBRINOGEN No results found for requested labs within last 30 days. No results found for: COVID19 No results for input(s): YENIFER in the last 72 hours. Imaging Studies: RETROPERITONEAL ULTRASOUND OF THE KIDNEYS AND URINARY BLADDER 09/03/2022 IMPRESSION: 1. Simple midpole left renal cyst measuring 2.7 cm. 2. No hydronephrosis. Specimen Collected: 09/03/22 12:52 EDT Last Resulted: 09/03/22 13:03 EDT Cultures: Culture, Blood 1 [[id number]] Collected: 09/02/22 06 Order Status: Completed Specimen: Blood Updated: 09/07/22724 Specimen Description .BLOOD Special Requests R FA 5ML Culture NO GROWTH 5 DAYS Culture, Blood 2 [[id number]] Collected: 09/02/22624 Order Status: Completed Specimen: Blood Updated: 09/07/22724 Specimen Description .BLOOD Special Requests R HAND 3ML Culture NO GROWTH 5 DAYS Culture, Blood 1 [[id number]] Collected: 09/02/22 0104 Order Status: Completed Specimen: Blood Updated: 09/07/22 0205 Specimen Description .BLOOD Special Requests RJUG, 10ML Culture NO GROWTH 5 DAYS MRSA DNA Probe, Nasal [[id number]] Collected: 09/02/22 06 Order Status: Completed Specimen: Nasal Updated: 09/03/22 1028 Specimen Description .NASAL SWAB MRSA, DNA, Nasal NEGATIVE Comment: NEGATIVE: MRSA DNA not detected by nucleic acid amplification. Results should be used as an adjunct to nosocomial control efforts to identify patients needing enhanced precautions. The test is not intended to identify patients with staphylococcal infections. Results should not be used to guide or monitor treatment for MRSA infections. Culture, Urine [[id number]] Collected: 09/02/22 0138 Order Status: Completed Specimen: Urine, clean catch Updated: 09/03/22 0832 Specimen Description .CLEAN CATCH URINE Culture NO GROWTH Medications: meropenem 1,000 mg IntraVENous Q12H insulin glargine 30 Units SubCUTAneous BID hydrALAZINE 25 mg Oral 3 times per day amLODIPine 5 mg Oral Daily oxyCODONE 5 mg Oral Q6H PARoxetine 10 mg Per NG tube Daily fluconazole 200 mg IntraVENous Q24H insulin lispro 0-16 Units SubCUTAneous Q6H RT lansoprazole 30 mg Per G Tube QAM AC [Held by provider] bumetanide 2 mg IntraVENous BID sodium chloride flush 5-40 mL IntraVENous 2 times per day heparin (porcine) 5,000 Units SubCUTAneous 3 times per day ipratropium 0.5 mg Nebulization Q4H WA RT [facility] [place] CNP Perfect [employer] messaging OFFICE: Thank you for allowing us to participate in the care of this patient. Please call with questions. This note is created with the assistance of a speech recognition program. While intending to generate a document that actually reflects the content of the visit, the document can still have some errors including those of syntax and sound a like substitutions which may escape proof reading. In such instances, actual meaning can be extrapolated by contextual diversion. ATTESTATION: I have discussed the case, including pertinent history and exam findings with the SELLING SPECIALIST. I have evaluated the History, physical findings and pictures of the patient and the william elements of the encounter have been performed by me. I have reviewed the laboratory data, other diagnostic studies and discussed them with the SELLING SPECIALIST. I have updated the medical record where necessary. I agree with the assessment, plan and orders as documented by the SELLING SPECIALIST. In addition, current problems and medical decision making include: Left perineal, thigh/gluteal necrotizing soft tissue infection status post surgical drainage 09/02/2022 Status post second look/I&D 09/03/2022 Status post irrigation and closure of left thigh and groin and buttock soft tissue defect 09/04/2022 Acute respiratory failure currently ventilator dependent Shock-resolved Diabetes mellitus with DKA currently on insulin drip Extreme obesity Acute kidney injury with unknown baseline creatinine COPD Elements of Medical Decision Making: Note: I have independently performed the steps listed below as part of the medical decision making and evaluation. Examined patient. Discussed with patient Discussed with referring physician or service Labs, medications, radiologic studies were reviewed with personal review of films Large amounts of data were reviewed Discussed with nursing Staff, urban and regional planner Infection Control and Prevention measures reviewed All prior entries were reviewed Reviewed Administration of medications as ordered Established Prognosis: Fair Discharge planning reviewed Reviewed need for follow up as outpatient. Lyndon Garcia MD. NEUROLOGY INPATIENT PROGRESS NOTE 09/12/2022 Current Exam: Chart reviewed. Discussed with RN. She remains on Precedex and Propofol. Is able to follow commands to all 4 limbs when sedation is paused. Intact brainstem reflexes. Brief History: Divina Amin is a 61 y.o. female with H/O COPD, DM, obesity, who was admitted on 09/02/2022 with necrotizing fasciitis. Per the records, she was initially alert and oriented at OSH and was found to have elevated WBC count and an abscess in the left groin which showed subcutaneous gas; she was transferred to [facility] for further evaluation and upon arrival to our ED was altered, not oriented. WBC count 26, blood sugar in the 500s. She was initially started on DKA protocol in the ED and she was admitted to the medical ICU. She underwent debridement on 09/02/2022 and was intubated for the procedure. She had a repeat debridement on 09/03 and a repeat washout and closure on 09/04. She remains intubated and sedated on both Precedex and propofol. Neurology is consulted due to her difficult arousal following surgery. CT head was done and limited due to motion but with no acute intracranial abnormality and mild, age-related atrophy and small vessel ischemic changes. She does intermittently follow some commands. No current facility-administered medications on file prior to encounter. Current Outpatient Medications on File Prior to Encounter Medication Sig Dispense Refill pravastatin (PRAVACHOL) 20 MG tablet Take 1 tablet by mouth daily albuterol sulfate HFA (VENTOLIN HFA) 108 (90 Base) MCG/ACT inhaler Inhale 2 puffs into the lungs 4 times daily as needed for Wheezing hydroCHLOROthiazide (HYDRODIURIL) 25 MG tablet Take 1 tablet by mouth daily metFORMIN (GLUCOPHAGE-XR) 500 MG extended release tablet Take 1 tablet by mouth 2 times daily PARoxetine (PAXIL) 10 MG tablet Take 1 tablet by mouth every morning lisinopril (PRINIVIL;ZESTRIL) 5 MG tablet Take 1 tablet by mouth daily glipiZIDE (GLUCOTROL) 10 MG tablet Take 1 tablet by mouth 2 times daily insulin NPH (HUMULIN N;NOVOLIN N) 100 UNIT/ML injection vial Inject 30 Units into the skin in the morning and 30 Units in the evening. Allergies: Divina Amin is allergic to amoxicillin and penicillins. Past Medical History: Diagnosis Date COPD (chronic obstructive pulmonary disease) (HCC) Diabetes (HCC) Morbid obesity (HCC) Past Surgical History: Procedure Laterality Date LEG SURGERY Left 09/03/2022 DEBRIDEMENT THIGH, GROIN, BUTTOCK performed by Janak Shaffer MD at [facility] OR LEG SURGERY Left 09/04/2022 DEBRIDEMENT THIGH, GROIN, BUTTOCK performed by Janak Shaffer MD at [facility] OR LEG SURGERY Left 09/02/2022 DEBRIDEMENT INCISION AND DRAINAGE OF LEFT THIGH, LEFT GROIN AND LEFT BUTTOCKS performed by Traci Maya MD at [facility] OR Social History: Divina Amin No family history on file. Objective: BP 134/76 Pulse 54 Temp 99.6 F (37.6 C) (Oral) Resp 22 Ht 5' 2 (1.575 m) Wt 297 lb 2.9 oz (134.8 kg) SpO2 97% BMI 54.35 kg/m Blood pressure range: Systolic (24hrs), Av , Min:106 , Max:134 ; Diastolic (24hrs), Av, Min:63, Max:77 Review of Systems: Cannot complete due to patient condition Limited Neuro Exam: Patient remains intubated and sedated Opens eyes with brief visual fixation and tracks side to side Turns head to name when called She resists eyelid opening With much prompting does shake her head yes/no to command Squeezes hands bilaterally to command Wiggles toes to command bilaterally, does not lift limbs off of bed DTR deferred Brisk withdrawal with Babinski testing Data: Lab Results: CBC: Recent Labs 09/10/22 0435 09/11/22 0328 09/12/22 0429 WBC 13.4* 13.0* 12.1* HGB 13.4 13.3 12.9 PLT 234 223 235 BMP: Recent Labs 09/10/22 1554 09/11/22 0328 09/11/22 1829 09/12/22 0429 NA 147* 151* 147* 151* K 3.7 3.2* 3.9 4.6 CL 105 106 102 102 CO2 29 30 33* 31 BUN 71* 68* -- 64* CREATININE 2.2* 2.2* -- 2.1* GLUCOSE 210* 96 -- 96 Lab Results Component Value Date ALT 14 09/10/2022 AST 64 (H) 09/10/2022 INR 1.5 09/02/2022 LABA1C 12.5 (H) 09/02/2022 Diagnostic data reviewed: CT HEAD (09/09/22) - Study limited by motion artifact. No acute intracranial abnormality. Mild age-appropriate atrophy and small-vessel disease ischemic changes. Patient is intubated. Impression: -Acute toxic metabolic encephalopathy in the setting of necrotizing fasciitis, sepsis, VELMA, acute respiratory failure, bilateral pleural effusions, aspiration pneumonia, DKA and medication effects Plan: -She is moving all 4 limbs, is able to follow some commands despite still being on sedation -Wean sedation as able -We will sign off for now; please feel free to call our team back once sedation is weaned or if there is a neurologic change. Please note that this note was generated using a voice recognition dictation software. Although every effort was made to ensure the accuracy of this automated freezer machine operator, some errors in freezer machine operator may have occurred. Associated attestation - Boy Cevallos MD - 09/13/2022 12:09 AM EDT Attending Physician Statement: I have discussed the care of Divina Amin, including pertinent history and exam findings with the MYRTLE. I have seen and examined the patient and the william elements of the encounter have been performed by me. I have reviewed medications, clinical laboratory, imaging and other diagnostic tests with the MYRTLE. I agree with the assessment, plan and orders as documented by the MYRTLE with changes made to the note as needed. Patient admitted 09/02/22 for toxic metabolic encephalopathy secondary to groin necrotizing fascitis requiring emergent debridement with surgery and admitted to MICU for vent support and medical management. CT head WO 09/10/22 no acute intracranial findings. Patient currently on sedation with precedex at 1.3 mcg/kg/hr, librium 10mg TID, propofol at 10mcg/kg/min. Even on this regimen on my exam with patients daughter at bedside patient was opening eyes spontaneously to painful stimulus, tracking objects, blink to threat bilaterally, squeezing both hands to command and withdraws to pain in bilateral lower extremities. Plan for patient to wean sedation and vent as tolerated and can re-evaluate patient off sedation if she has any focal neurologic deficits than can consider MRI brain WO limited vs routine 30 minute EEG. At this time suspicion for CVA or seizure is very low given non-focal exam and following simple commands. Exam is consistent with severe toxic metabolic encephalopathy. Boy Cevallos MD 09/13/2022 12:00 AM INTENSIVE CARE UNIT Resident Physician Progress Note Patient - Divina Amin Date of Admission - 09/02/2022 12:12 AM Date of Evaluation - 09/12/2022 Room and Bed Number - 3011/3011-01 Hospital Day - 10 Chief Complaint Patient presents with Altered Mental Status SUBJECTIVE: HISTORY OF PRESENT ILLNESS: Divina Amin is a 61 y.o. with a past medical history of type 2 diabetes, asthma, COPD and obesity. Patient was [facility] after concerns for necrotizing fasciitis. Patient was initially alert and oriented x[facility], she was noted to have an elevated WBC count and abscess in the left groin which showed subcutaneous gas. Patient received 3 L of crystalloid fluids and a dose of vancomycin prior to transfer. In our emergency department the patient was altered ANO x0, VBG showed pH of 6.79, WBC count of 26, blood glucose in the 500s, beta hydroxybutyrate of 10, bicarb of less than 6. Patient was immediately evaluated by surgical team and another 2 L of fluids was given. Patient was initially started on DKA protocol in the emergency department. 1 amp of bicarb was given to her. On initial icu evaluation she was altered, not answering questions and not responding fully. Seem to be in acute distress. patient on a continuous bicarb drip, insulin drip , meropenem and linezolid by surgery team due to history of penicillin allergy. potassium was 5.2. Underwent debridement 09/02/2022, intubated for procedure Started on DKA protocol Repeat debridement 09/03. Repeat washout and closure on 09/04 OVERNIGHT EVENTS: Remains intubated and sedated on precedex 1.5 and propofol 10 no pressors UOP 4.46 L, 1.4 c/kg/hr BP 126/73, pulse 56, tmax 99.1 Drain output 85 cc over 24 hours. Tube feeds at goal 50 cc/hr AC/PRVC 20/400/5/35 AB.511/45.4/79.6/36.3 BE 11.6 Yesterday patient with hypernatremia to 151 and metabolic alkalosis. Hypernatremia unchanged today metabolic alkalosis improving. Creatinine stable at 2.1 (2.2) yesterday. Leukocytosis to 12.1 which is unchanged from yesterday as well. Seen by nephrology yesterday who recommended holding Bumex and starting free water 250 every 6 hours. Seen by neurology who recommended weaning sedation and consider brain MRI if encephalopathy persists. Infectious disease continues to recommend meropenem and fluconazole. OBJECTIVE: VITAL SIGNS: Patient Vitals for the past 8 hrs: BP Temp Temp src Pulse Resp SpO2 09/12/22 0600 124/68 -- -- 57 23 95 % 09/12/22 0500 -- -- -- 58 22 96 % 09/12/22 0449 -- -- -- 59 24 96 % 09/12/22 0400 122/67 99.1 F (37.3 C) Axillary 60 21 97 % 09/12/22 0351 -- -- -- -- 23 -- 09/12/22 0319 -- -- -- 62 22 98 % 09/12/22 0300 127/67 -- -- 64 20 96 % 09/12/22 0200 125/67 -- -- 59 22 97 % 09/12/22 0154 -- -- -- -- 21 -- 09/12/22 0100 124/65 -- -- 62 23 97 % 09/12/22 0000 121/76 98.9 F (37.2 C) Axillary 65 23 97 % 09/11/22 2357 -- -- -- 65 26 96 % 09/11/22 2300 116/69 -- -- 64 23 97 % Last Body weight: Wt Readings from Last 3 Encounters: 09/02/22 297 lb 2.9 oz (134.8 kg) Body Mass Index : Body mass index is 54.35 kg/m . Tmax over 24 hours: Temp (24hrs), Av.3 F (37.4 C), Min:98.9 F (37.2 C), Max:100.3 F (37.9 C) Ins/Outs: In: 5253.4 [I.V.:1852.4; NG/GT:2938] Out: 7738 [Urine:7610; Drains:78] PHYSICAL EXAM: Constitutional: Intubated and sedated EENT: PERRLA, sclera clear, anicteric, oropharynx clear, no lesions, neck supple with midline trachea. R Ij triple lumen Neck: Supple, symmetrical, trachea midline, no adenopathy, thyroid symmetric, no jvd skin normal Respiratory: clear to auscultation, no wheezes or rales and unlabored breathing. No intercostal tenderness Cardiovascular: regular rate and rhythm, normal S1, S2, no murmur noted and 2+ pulses throughout Abdomen: Debrided lower abdominal wound, Extremities: peripheral pulses normal, no pedal edema, no clubbing or cyanosis MEDICATIONS: Scheduled Meds: meropenem 1,000 mg IntraVENous Q12H insulin glargine 30 Units SubCUTAneous BID hydrALAZINE 25 mg Oral 3 times per day amLODIPine 5 mg Oral Daily oxyCODONE 5 mg Oral Q6H PARoxetine 10 mg Per NG tube Daily fluconazole 200 mg IntraVENous Q24H insulin lispro 0-16 Units SubCUTAneous Q6H RT lansoprazole 30 mg Per G Tube QAM AC [Held by provider] bumetanide 2 mg IntraVENous BID sodium chloride flush 5-40 mL IntraVENous 2 times per day heparin (porcine) 5,000 Units SubCUTAneous 3 times per day ipratropium 0.5 mg Nebulization Q4H WA RT Continuous Infusions: propofol 10 mcg/kg/min (09/12/22650) dexmedetomidine 1.5 mcg/kg/hr (09/12/22650) dextrose PRN Meds: fentanNYL, 50 mcg, Q2H PRN Or fentanNYL, 100 mcg, Q2H PRN glucose, 4 tablet, PRN dextrose bolus, 125 mL, PRN Or dextrose bolus, 250 mL, PRN glucagon (rDNA), 1 mg, PRN dextrose, , Continuous PRN sodium chloride flush, 5-40 mL, PRN dextrose bolus, 125 mL, PRN sodium phosphate IVPB, 10 mmol, PRN Or sodium phosphate IVPB, 15 mmol, PRN Or sodium phosphate IVPB, 20 mmol, PRN polyethylene glycol, 17 g, Daily PRN ipratropium 0.5 mg-albuterol 2.5 mg, 1 Dose, Q4H PRN albuterol, 2.5 mg, As Directed RT PRN SUPPORT DEVICES: [x] Ventilator [] BIPAP [] Nasal Cannula [] Room Air VENT SETTINGS (Comprehensive) (if applicable): Vent Information Ventilator ID: [id number] Equipment Changed: HME, Expiratory Filter, Suction catheter Ventilator Initiate: Yes Vent Mode: AC/PRVC Additional Respiratory Assessments Pulse: 57 Respirations: 23 SpO2: 95 % End Tidal CO2: 46 (%) Position: Semi-Multani's Humidification Source: HME Circuit Condensation: Drained Cuff Pressure (cm H2O): (MOV) Lab Results Component Value Date/Time MODE [facility] 09/12/2022 04:22 AM ABGs: No results found for: PH, PCO2, PO2, HCO3, O2SAT DATA: Complete Blood Count: Recent Labs 09/10/22 0435 09/11/22 0328 09/12/22 0429 WBC 13.4* 13.0* 12.1* RBC 4.44 4.42 4.34 HGB 13.4 13.3 12.9 HCT 42.3 41.9 42.6 MCV 95.3 94.8 98.2 MCH 30.2 30.1 29.7 MCHC 31.7 31.7 30.3 RDW 12.3 12.3 12.6 PLT 234 223 235 MPV 10.3 10.5 11.5 Last 3 Blood Glucose: Recent Labs 09/10/22 0435 09/10/22 1554 09/11/22 0328 09/12/22 0429 GLUCOSE 142* 210* 96 96 PT/INR: Lab Results Component Value Date/Time PROTIME 17.5 09/02/2022 01:35 AM INR 1.5 09/02/2022 01:35 AM PTT: Lab Results Component Value Date/Time APTT 36.0 09/02/2022 01:35 AM Basic Metabolic Profile: Recent Labs 09/10/22 1554 09/11/22 0328 09/11/22 1829 09/12/22 0429 NA 147* 151* 147* 151* K 3.7 3.2* 3.9 4.6 CL 105 106 102 102 CO2 29 30 33* 31 BUN 71* 68* -- 64* CREATININE 2.2* 2.2* -- 2.1* GLUCOSE 210* 96 -- 96 Liver Function: Recent Labs 09/10/22434 PROT 6.2* LABALBU 2.3* ALT 14 AST 64* ALKPHOS 118* BILITOT 0.4 Magnesium: Lab Results Component Value Date/Time MG 2.0 09/11/2022 03:28 AM MG 1.9 09/05/2022 04:23 AM MG 1.8 09/05/2022 12:22 AM Phosphorus: Lab Results Component Value Date/Time PHOS 3.7 09/05/2022 04:23 AM PHOS 3.2 09/05/2022 12:22 AM PHOS 3.5 09/04/2022 08:09 PM Ionized Calcium: Lab Results Component Value Date/Time CAION 1.25 09/02/2022 04:10 AM Urinalysis: Lab Results Component Value Date/Time NITRU NEGATIVE 09/02/2022 01:37 AM COLORU Yellow 09/02/2022 01:37 AM PHUR 5.5 09/02/2022 01:37 AM WBCUA 0 TO 2 09/02/2022 01:37 AM RBCUA 20 TO 50 09/02/2022 01:37 AM MUCUS 1+ 09/02/2022 01:37 AM SPECGRAV 1.023 09/02/2022 01:37 AM LEUKOCYTESUR NEGATIVE 09/02/2022 01:37 AM UROBILINOGEN Normal 09/02/2022 01:37 AM BILIRUBINUR NEGATIVE 09/02/2022 01:37 AM GLUCOSEU 3+ 09/02/2022 01:37 AM KETUA LARGE 09/02/2022 01:37 AM HgBA1c: Lab Results Component Value Date/Time LABA1C 12.5 09/02/2022 06:03 AM TSH: No results found for: TSH Lactic Acid: No results found for: LACTA Troponin: No results for input(s): TROPONINI in the last 72 hours. Microbiology: Urine Culture: No components found for: CURINE Blood Culture: No components found for: CBLOOD, CFUNGUSBL Sputum Culture: No components found for: CSPUTUM Radiology/Imaging: CT HEAD WO CONTRAST Final Result Study limited by motion artifact. No acute intracranial abnormality. Mild age-appropriate atrophy and small-vessel disease ischemic changes. Patient is intubated. CT CHEST ABDOMEN PELVIS WO CONTRAST Additional Contrast? None Preliminary Result 1. Drainage catheters are noted in the left groin/perineum without drainable fluid collection or new soft tissue gas. 2. Anasarca. 3. New bilateral pleural effusions with patchy ground-glass opacities in the left upper lobe, likely infectious or inflammatory in etiology. 4. No new acute findings in the abdomen or pelvis. XR CHEST PORTABLE Final Result Patchy airspace opacities most pronounced in the right mid to lower lung view, may be related to mild pulmonary edema versus pneumonia. Mild bilateral pleural effusions. US RENAL COMPLETE Final Result 1. Simple midpole left renal cyst measuring 2.7 cm. 2. No hydronephrosis. XR CHEST PORTABLE Final Result Decreased pulmonary edema Otherwise, stable chest XR ABDOMEN FOR NG/OG/NE TUBE PLACEMENT Final Result OG tube in satisfactory position. XR CHEST (SINGLE VIEW FRONTAL) Final Result Endotracheal tube in satisfactory position. Right IJ line unchanged. Mild congestive failure, stable. XR CHEST PORTABLE Final Result Right IJ catheter with tip at the inferior SVC. No pneumothorax. Findings of interstitial pulmonary edema. 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 Septic shock ([facility]) 09/06/2022 Acute respiratory failure with hypoxia ([facility]) 09/05/2022 Diabetic acidosis without coma ([facility]) 09/05/2022 GEMA (obstructive sleep apnea) 09/05/2022 VELMA (acute kidney injury) ([facility]) 09/03/2022 Necrotizing fasciitis ([facility]) 09/02/2022 Metabolic acidosis 09/02/2022 Hypernatremia 09/02/2022 Hypokalemia 09/02/2022 PLAN: PLAN/MEDICAL DECISION MAKING: Neurologic: Patient following commands with all 4 extremities no hitting eyes to voice. Neurology consult. Recommend weaning sedation and MRI of brain if encephalopathy does not improve. Neuro checks per protocol On propofol and precedex, wean as tolerated roxicodone 5 mg every 6 hours, fentanyl 50/100 mcg Every 2 hours as needed. Home Paxil daily Cardiovascular: History of hypertension, on hydrochlorothiazide 25 mg daily at home, amlodipine 5 mg daily hydralazine 25 mg every 8 hours Hemodynamically stable MAP goal 65 Pulmonary: History of asthma and COPD, on albuterol at home Atrovent nebulization ordered due to tachycardia Maintain oxygen sats >92%Maintain oxygen sats >92% Pulmonary toilet Vent Information Ventilator ID: [id number] Equipment Changed: HME, Expiratory Filter, Suction catheter Ventilator Initiate: Yes Vent Mode: AC/PRVC GI/Nutrition On tube feeds at goal rate 50 cc/h Ulcer Prophylaxis: Prevacid daily Diet:Diet NPO ADULT TUBE FEEDING; Orogastric; Peptide Based High Protein; Continuous; 10; Yes; 10; Q 4 hours; 50; 30; Q 4 hours Bowel regimen with GlycoLax daily as needed Renal/Fluid/Electrolyte Metabolic acidosis due to DKA. Had bicarb drip. Switched to D5/half normal. Off IVF VELMA with poor urine output, nephrology following. Recommended to hold Bumex and start free water 252 6. I/O: In: 5253.4 [I.V.:1852.4; NG/GT:2938] Out: 7738 [Urine:7610; Drains:78] Monitor electrolytes, replace PRN K 4.6 Na 151 unchanged from yesterday. ID Necrotizing fasciitis in the left groin S/p multiple debridements of necrotizing soft tissue infection of the left groin/perineum. S/p washout and closure 09/04 Infectious disease and surgery following WBC: Lab Results Component Value Date WBC 12.1 (H) 09/12/2022 Tmax: Temp (24hrs), Av.3 F (37.4 C), Min:98.9 F (37.2 C), Max:100.3 F (37.9 C) Antimicrobials: Meropenem and Diflucan. ID following Hematology: Recent Labs 09/10/22 0435 09/11/22 0328 09/12/22 0429 HGB 13.4 13.3 12.9 stable Endocrine: Type II diabetes: had insulin drip Per DKA protocol. Now on Lantus 30 BID. and MDSS glucose controlled - most recent BGL is Recent Labs 09/10/22 1554 09/11/22 0328 09/12/22 0429 GLUCOSE 210* 96 96 DVT Prophylaxis Heparin Discharge Needs: PT, OT, and Case Management CODE STATUS: Full Code F.A.S.T. M. H.U.G.S. B.I.D. Feeding Diet: Diet NPO ADULT TUBE FEEDING; Orogastric; Peptide Based High Protein; Continuous; 10; Yes; 10; Q 4 hours; 50; 30; Q 4 hours Fluids: 3 water 250 mg every 6 hours. Family: will update when here Analgesic: Jamila 5 mg every 6 hours, fentanyl 50/100 every 2 hours as needed. Sedation: Precedex 1.5, propofol 10, Thrombo-prophylaxis: [] Enoxaparin, [x] Unfract. Heparin Subcutaneously, [] EPC Cuffs Mobility: PT/OT Heads up: NA Ulcer prophylaxis: [] PPI Agent, [x] [id number], [] Sucralfate, [] Other: Glycemic control: Lantus 30 units twice daily, lispro high-dose correction Spontaneous breathing trial: Daily Bowel regimen/urine output: GlycoLax daily urine, urine output 1.4 cc per kilogram per hour Indwelling catheter/lines: ET tube, right IJ central line, FMS, OG, Hunter De-escalation: wean sedation as tolerated DISPOSITION: [x] To remain ICU: [] OK for out of ICU from Critical Care standpoint Debi Brooke DO Emergency Medicine Resident PGY2 [facility]; [place], [place] 09/12/2022, 6:53 AM Associated attestation - Jose Carlos Way MD - 09/12/2022 9:08 PM EDT Attending Physician Statement I have discussed the case of Divina Amin, including pertinent history and exam findings with the resident/fellow/medical student/CLOUD ADMINISTRATOR/PA. I have seen and examined the patient and the william elements of the encounter have been performed by me. I agree with the assessment, plan and orders as documented by the resident/fellow/medical student/CLOUD ADMINISTRATOR/PA With changes made to the note as needed. Pt was seen during rounds. Review of Systems: In addition to the pertinent positives and negatives as stated within HPI and the review of systems as documented in their notes, all other systems were reviewed when able to and are reported negative. Patient is on the ventilator on 35% oxygen Blood sugars are increased, adjust insulin ABG with acute metabolic alkalosis with some compensation Tolerating tube feeding Patient with mild hypernatremia, free water per nephrology Renal function stable with creatinine of 2.1 Start Librium 10 mg 3 times a day Improving leukocytosis Increase oxycodone also Patient is on subcutaneous heparin and H2 blockers Family was updated Total critical care time caring for this patient with life threatening, unstable organ failure, including direct patient contact, management of life support systems, review of data including imaging and labs, discussions with other team members and physicians at least 30 Min so far today, excluding procedures. Jose Carlos Way MD 09/12/2022 9:07 PM Images from the original note were not included. PROGRESS NOTE PATIENT NAME: Divina Amin DATE: 09/12/2022 HD: # 10 Patient Active Problem List Diagnosis Necrotizing fasciitis (HCC) Metabolic acidosis Hypernatremia Hypokalemia VELMA (acute kidney injury) (HCC) Acute respiratory failure with hypoxia (HCC) Diabetic acidosis without coma (HCC) GEMA (obstructive sleep apnea) Septic shock (HCC) Bandemia Deborah gangrene Metabolic encephalopathy Open wound Ventilator dependent (HCC) Morbid obesity (HCC) DIAGNOSIS AND PLAN Cont management per critical care team S/p multiple debridements of necrotizing soft tissue infection of the left groin/perineum. S/p washout and closure 09/04 Wound care: change ABD pads over groin incision BID Continue JESSICA drains to bulb suction, monitor and record output Abx per ID Continue strict glucose control for healing purposes with goal <180. Monitor leukocytosis, decreasing today Would recommend SBT as able No further surgical interventions planned. Continuing to monitor wound and drain outputs SUBJECTIVE Remains intubated. Remains intubated as unable to be extubated due to agitation. OBJECTIVE VITALS: Vitals: 09/12/22 1200 BP: 123/71 Pulse: 57 Resp: 23 Temp: 100.1 F (37.8 C) SpO2: 97% General: Intubated on the ventilator, no acute distress Pulmonary/Chest: Equal chest rise, intubated Cardiovascular: Regular rate and rhythm Abdomen: Soft, nontender, nondistended. Extremities: No cyanosis, clubbing, edema, or effusions. Skin: Left perineum/buttock with prolene sutures in place and no significant drainage and ABD dressings in place, skin surrounding the sutures is erythematous, no fluctuance, continues to be some induration, no sign of purulent drainage, JESSICA drains exiting left thigh with SS drainage LAB: CBC: Recent Labs 09/10/22 0435 09/11/22 0328 09/12/22 0429 WBC 13.4* 13.0* 12.1* HGB 13.4 13.3 12.9 HCT 42.3 41.9 42.6 MCV 95.3 94.8 98.2 PLT 234 223 235 BMP: Recent Labs 09/10/22 1554 09/11/22 0328 09/11/22 1829 09/12/22 0429 NA 147* 151* 147* 151* K 3.7 3.2* 3.9 4.6 CL 105 106 102 102 CO2 29 30 33* 31 BUN 71* 68* -- 64* CREATININE 2.2* 2.2* -- 2.1* GLUCOSE 210* 96 -- 96 Imaging: CT HEAD WO CONTRAST Result Date: 09/09/2022 Study limited by motion artifact. No acute intracranial abnormality. Mild age-appropriate atrophy and small-vessel disease ischemic changes. Patient is intubated. XR CHEST PORTABLE Result Date: 09/09/2022 Patchy airspace opacities most pronounced in the right mid to lower lung view, may be related to mild pulmonary edema versus pneumonia. Mild bilateral pleural effusions. CT CHEST ABDOMEN PELVIS WO CONTRAST Additional Contrast? None Result Date: 09/09/2022 1. Drainage catheters are noted in the left groin/perineum without drainable fluid collection or new soft tissue gas. 2. Anasarca. 3. New bilateral pleural effusions with patchy ground-glass opacities in the left upper lobe, likely infectious or inflammatory in etiology. 4. No new acute findings in the abdomen or pelvis. Eliza Rizzo DO General Surgery PGY-1 09/11/22 12:34 PM Associated attestation - Lizzy Whalen MD - 09/12/2022 7:56 PM EDT I personally evaluated the patient and directed the medical decision making with Resident/MYRTLE after the physical/radiologic exam and laboratory values were reviewed and confirmed. Wound care S. Obed Whalen MD Acute Care Surgery Images from the original note were not included. [facility] Progress Note Divina Amin Date: 09/11/2022 LOS: 9 Reason for F/U : Necrotizing soft tissue infection Impression : Left perineal, thigh/gluteal necrotizing soft tissue infection - Deborah in a diabetic status post surgical drainage 09/02/2022 Status post second look/I&D 09/03/2022 Status post irrigation and closure of left thigh and groin and buttock soft tissue defect 09/04/2022 No cx available Acute respiratory failure currently ventilator dependent MICHAEL ground glass infilt, 09/09 -? Asp pneumonia Bilat moderate pleural effusions Shock-resolved Diabetes mellitus with DKA currently on insulin drip Extreme obesity Acute kidney injury with unknown baseline creatinine COPD Bandemia - improved Recommendations: meropenem fluconazole since 09/07 - FU LFTs On iv insulin for DKA GS for Deborah - drains w 50 cc outpt Sp cx pend Infection Control Recommendations: [place] precautions Discharge Planning: Estimated Length of IV antimicrobials: To be determined Patient will need Midline Catheter Insertion/ PICC line Insertion: No Patient will need: Home IV , Infusion Center, SNF, LTAC: Undetermined Patient willneed outpatient wound care: No Medical Decision making / Summary of Stay: Divina Amin is a 61 y.o.-year-old female who was initially admitted on 09/02/2022. Divina is a morbidly obese diabetic female with also a history of asthma/COPD and is currently intubated and the history is obtained from the daughter who is at bedside. It is my understanding that Divina has had a history of boils in her left groin area which have previously been drained in the past. She has certainly not needed to be hospitalized for these and she had been complaining of a boil/infection in her left groin for about a week at home. The patient ended up being started on Bactrim about a day ago but the daughter after getting home from work in the late afternoon yesterday found that Divina was out of it and was having difficulty ambulating going to the bathroom. She ended up calling EMS and the patient was taken to an outlying facility in [place] where work-up showed some leukocytosis, left groin soft tissue infection with some soft tissue gas and the patient was hypotensive. The patient received fluid resuscitation and was transferred here where blood sugars were elevated and the patient was started on the DKA protocol. The patient became more confused and was seen by the general surgery team started on antimicrobial therapy with meropenem and linezolid due to history of a penicillin allergy. The patient had an obvious wound on the left perineum/upper thigh that was protruding necrotic and fluctuant. The patient was taken to the operating room this morning underwent incision and drainage of her left thigh/left groin and buttocks abscess/soft tissue infection and there was a sinclair necrotizing tissue appreciated during the surgery. The margins included the left major labia majora, left upper thigh, left inferior groin, left perineum/gluteal area. The patient is currently in the intensive care unit and I was asked to evaluate and help with antibiotic choice. The patient was taken to the operating room 09/03/2022 and underwent second look/debridement procedure of the left groin/thigh area. The patient was taken to the operating room 09/04/2022 and underwent irrigation and closure of the left thigh groin buttock and soft tissue defect after the patient was found to have a clean wound base and there was placement of 2 flat JESSICA drains with multilayer closure. Current evaluation:09/11/2022 BP 117/66 Pulse 59 Temp 99.4 F (37.4 C) (Oral) Resp 21 Ht 5' 2 (1.575 m) Wt 297 lb 2.9 oz (134.8 kg) SpO2 97% BMI 54.35 kg/m Temperature Range: Temp: 99.4 F (37.4 C) Temp Av.6 F (37.6 C) Min: 99 F (37.2 C) Max: 100.3 F (37.9 C) 09/09 The patient is seen and evaluated bedside she is on the ventilator at 30% FiO2 and 5 of PEEP. The patient remains on sedation with Precedex and propofol and is agitated moving her head from side to side and did not follow any commands for me. The care was discussed with the nurse at bedside 09/10 Remains on the ventilator 35IO2 Wound cleaned today and is clean Abd soft - agitated Sp small CT scan of the head 09/[address] scan chest abdomen pelvis 09/09 left upper lobe groundglass opacity and left groin the drainage catheter without obvious collections 09/11 No fever - WBc 13 no new + cx BC neg- sp cx 09/11 sent pend Still on the vent 35 FIo2 alert - agitated JESSICA drains sero sang - Labs: WBC is 13 Creat 2.8 - 2.3 better Micro BC 09/02 neg MRSA nasal neg 09/02 U cx neg 09/02 imagings CTAPC 09/09/22 Impression: 1. Drainage catheters are noted in the left groin/perineum without drainable fluid collection or new soft tissue gas. 2. Anasarca. 3. New bilateral pleural effusions with patchy ground-glass opacities in the left upper lobe, likely infectious or inflammatory in etiology. 4. No new acute findings in the abdomen or pelvis. Review of Systems Unable to perform ROS: Intubated Psychiatric/Behavioral: Positive for agitation. Physical Examination : Physical Exam Constitutional: General: She is not in acute distress. Appearance: She is well-developed. She is obese. She is not ill-appearing, toxic-appearing or diaphoretic. Interventions: She is sedated and intubated. HENT: Head: Normocephalic and atraumatic. Nose: Nose normal. Mouth/Throat: Mouth: Mucous membranes are moist. Eyes: General: No scleral icterus. Conjunctiva/sclera: Conjunctivae normal. Cardiovascular: Rate and Rhythm: Normal rate and regular rhythm. Heart sounds: Normal heart sounds. Pulmonary: Effort: Pulmonary effort is normal. She is intubated. Breath sounds: Normal breath sounds. Abdominal: General: Bowel sounds are normal. Palpations: Abdomen is soft. Genitourinary: Comments: Urine dario Musculoskeletal: General: No swelling or deformity. Cervical back: Neck supple. No rigidity. Skin: General: Skin is warm and dry. Coloration: Skin is not jaundiced or pale. Findings: No bruising or erythema. Comments: There is a dressing in the perineal area which was not removed Neurological: Comments: intubated Psychiatric: Comments: intubated Laboratory data: I have independently reviewed the followinglabs: CBC with Differential: Recent Labs 09/10/22 0435 09/11/22 0328 WBC 13.4* 13.0* HGB 13.4 13.3 HCT 42.3 41.9 PLT 234 223 LYMPHOPCT 21* 21* MONOPCT 11 12 BMP: Recent Labs 09/10/22 1554 09/11/22 0328 09/11/22 1829 NA 147* 151* 147* K 3.7 3.2* 3.9 CL 105 106 102 CO2 29 30 33* BUN 71* 68* -- CREATININE 2.2* 2.2* -- MG -- 2.0 -- Hepatic Function Panel: Recent Labs 09/10/22 0435 PROT 6.2* LABALBU 2.3* BILIDIR 0.1 IBILI 0.3 BILITOT 0.4 ALKPHOS 118* ALT 14 AST 64* No results found for: PROCAL Lab Results Component Value Date/Time CRP 489.6 09/02/2022 01:35 AM No results found for: SEDRATE No results found for: DDIMER No results found for: FERRITIN No results found for: LDH No results found for: FIBRINOGEN No results found for requested labs within last 30 days. No results found for: COVID19 No results for input(s): VANCOTROUGH in the last 72 hours. Imaging Studies: RETROPERITONEAL ULTRASOUND OF THE KIDNEYS AND URINARY BLADDER 09/03/2022 IMPRESSION: 1. Simple midpole left renal cyst measuring 2.7 cm. 2. No hydronephrosis. Specimen Collected: 09/03/22 12:52 EDT Last Resulted: 09/03/22 13:03 EDT Cultures: Culture, Blood 1 [[id number]] Collected: 09/02/22 0620 Order Status: Completed Specimen: Blood Updated: 09/07/22 07 Specimen Description .BLOOD Special Requests R FA 5ML Culture NO GROWTH 5 DAYS Culture, Blood 2 [[id number]] Collected: 09/02/22 0625 Order Status: Completed Specimen: Blood Updated: 09/07/22 07 Specimen Description .BLOOD Special Requests R HAND 3ML Culture NO GROWTH 5 DAYS Culture, Blood 1 [[id number]] Collected: 09/02/22 0104 Order Status: Completed Specimen: Blood Updated: 09/07/22 0205 Specimen Description .BLOOD Special Requests RJUG, 10ML Culture NO GROWTH 5 DAYS MRSA DNA Probe, Nasal [[id number]] Collected: 09/02/22 0600 Order Status: Completed Specimen: Nasal Updated: 09/03/22 1028 Specimen Description .NASAL SWAB MRSA, DNA, Nasal NEGATIVE Comment: NEGATIVE: MRSA DNA not detected by nucleic acid amplification. Results should be used as an adjunct to nosocomial control efforts to identify patients needing enhanced precautions. The test is not intended to identify patients with staphylococcal infections. Results should not be used to guide or monitor treatment for MRSA infections. Culture, Urine [[id number]] Collected: 09/02/22 0138 Order Status: Completed Specimen: Urine, clean catch Updated: 09/03/22 0832 Specimen Description .CLEAN CATCH URINE Culture NO GROWTH Medications: meropenem 1,000 mg IntraVENous Q12H insulin glargine 30 Units SubCUTAneous BID hydrALAZINE 25 mg Oral 3 times per day amLODIPine 5 mg Oral Daily oxyCODONE 5 mg Oral Q6H PARoxetine 10 mg Per NG tube Daily fluconazole 200 mg IntraVENous Q24H insulin lispro 0-16 Units SubCUTAneous Q6H RT lansoprazole 30 mg Per G Tube QAM AC [Held by provider] bumetanide 2 mg IntraVENous BID sodium chloride flush 5-40 mL IntraVENous 2 times per day heparin (porcine) 5,000 Units SubCUTAneous 3 times per day ipratropium 0.5 mg Nebulization Q4H WA RT [facility] Nuvia Baker MD EDITD OFFICE: Thank you for allowing us to participate in the care of this patient. Please call with questions. This note is created with the assistance of a speech recognition program. While intending to generate a document that actually reflects the content of the visit, the document can still have some errors including those of syntax and sound a like substitutions which may escape proof reading. In such instances, actual meaning can be extrapolated by contextual diversion. Patient's daughter, Carlene, at bedside trying to brush out matting to hair. Matting significant and daughter and specification writer unable to brush out hair. Daughters, Carlene and Mercy, agreed that hair needs to be cut. Carlene, cut out matted section of hair. Images from the original note were not included. PROGRESS NOTE PATIENT NAME: Divina Amin DATE: 09/11/2022 HD: # 9 Patient Active Problem List Diagnosis Necrotizing fasciitis (HCC) Metabolic acidosis Hypernatremia Hypokalemia VELMA (acute kidney injury) (HCC) Acute respiratory failure with hypoxia (HCC) Diabetic acidosis without coma (HCC) GEMA (obstructive sleep apnea) Septic shock (HCC) Bandemia Deborah gangrene DIAGNOSIS AND PLAN Cont management per critical care team S/p multiple debridements of necrotizing soft tissue infection of the left groin/perineum. S/p washout and closure 09/04 Wound care: change ABD pads over groin incision BID Continue JESSICA drains to bulb suction, monitor and record output (85cc/24h) Abx per ID Continue strict glucose control for healing purposes with goal <180. Monitor leukocytosis, decreasing today CT scan reviewed No further surgical interventions planned. Continuing to monitor wound and drain outputs SUBJECTIVE Remains intubated. Given propofol overnight for agitation. Given bolus with D5 for hypoglycemia. No new concerns. OBJECTIVE VITALS: Vitals: 09/11/22 0900 BP: 113/69 Pulse: 65 Resp: 23 Temp: SpO2: 97% General: Intubated on the ventilator, no acute distress Pulmonary/Chest: Equal chest rise, intubated Cardiovascular: Regular rate and rhythm Abdomen: Soft, nontender, nondistended. Extremities: No cyanosis, clubbing, edema, or effusions. Skin: Left perineum/buttock with prolene sutures in place and no significant drainage and ABD dressings in place, skin surrounding the sutures is erythematous, no fluctuance, continues to be some induration, no sign of purulent drainage, JESSICA drains exiting left thigh with SS drainage LAB: CBC: Recent Labs 09/09/22 0416 09/10/22 0435 09/11/22 0328 WBC 14.3* 13.4* 13.0* HGB 13.2 13.4 13.3 HCT 42.4 42.3 41.9 MCV 96.8 95.3 94.8 PLT 234 234 223 BMP: Recent Labs 09/10/22 0435 09/10/22 1554 09/11/22 0328 NA 148* 147* 151* K 3.5* 3.7 3.2* CL 106 105 106 CO2 30 BUN 75* 71* 68* CREATININE 2.3* 2.2* 2.2* GLUCOSE 142* 210* 96 Imaging: CT HEAD WO CONTRAST Result Date: 09/09/2022 Study limited by motion artifact. No acute intracranial abnormality. Mild age-appropriate atrophy and small-vessel disease ischemic changes. Patient is intubated. XR CHEST PORTABLE Result Date: 09/09/2022 Patchy airspace opacities most pronounced in the right mid to lower lung view, may be related to mild pulmonary edema versus pneumonia. Mild bilateral pleural effusions. CT CHEST ABDOMEN PELVIS WO CONTRAST Additional Contrast? None Result Date: 09/09/2022 1. Drainage catheters are noted in the left groin/perineum without drainable fluid collection or new soft tissue gas. 2. Anasarca. 3. New bilateral pleural effusions with patchy ground-glass opacities in the left upper lobe, likely infectious or inflammatory in etiology. 4. No new acute findings in the abdomen or pelvis. Eliza Rizzo DO General Surgery PGY-1 09/11/22 10:45 AM Associated attestation - Lizzy Whalen MD - 09/11/2022 1:28 PM EDT I personally evaluated the patient and directed the medical decision making with Resident/MYRTLE after the physical/radiologic exam and laboratory values were reviewed and confirmed. Wound care S. Obed Whalen MD Acute Care Surgery Pharmacy Note Renal Dose Adjustment Divina Amin is a 61 y.o. female. Pharmacist assessment of renally cleared medications. Recent Labs 09/10/22 1554 09/11/22 0328 BUN 71* 68* Recent Labs 09/10/22 1554 09/11/22 0328 CREATININE 2.2* 2.2* Estimated Creatinine Clearance: 36 mL/min (A) (based on SCr of 2.2 mg/dL (H)). Estimated CrCl using [place] Body Weight: 36 mL/min (based on IBW kg) Height: Ht Readings from Last 1 Encounters: 09/02/22 5' 2 (1.575 m) Weight: Wt Readings from Last 1 Encounters: 09/02/22 297 lb 2.9 oz (134.8 kg) The following medication dose has been adjusted based upon renal function per P&T Guidelines: Meropenem dose adjusted down from q 8 hrs to q 12hours for crcl 36 ml/min Thank you John Huizar PharmD, [facility] Inpatient Clinical Pharmacist [phone] Renal Progress Note Patient : Divina Amin; 61 y.o. Location: 3011/3011-01 Attending: Nader Smith MD Admit Date: 09/02/2022 Hospital Day: 9 Subjective: Patient seen and examined at bedside. No acute events overnight. Remains intubated and sedated on propofol and Precedex. Vital signs stable, off of pressors. Continued on meropenem. Continued on Bumex 2 mg twice daily, urine output 6.6 L over the last 24 hours. Labs this a.m. show sodium 151, potassium 3.2, chloride 106, bicarb 30, BUN 68, creatinine 2.2, calcium 8.7. History reviewed: 61-year-old female came from outside facility with pain and redness involving involving her left buttock area and groin and was found to have necrotizing fasciitis, got transferred to [facility] for further management. She was noted to also have DKA with severe metabolic acidosis with pH about 6.8 with associated shock and VELMA. She was started on vasopressors, was taken to the OR by surgery with I&D performed. Started on bicarb containing fluids as well as insulin. Nephrology consulted for VELMA, was started on Lasix drip. Outpatient Medications: No medications prior to admission. Current Medications: Scheduled Meds: insulin glargine 35 Units SubCUTAneous BID hydrALAZINE 25 mg Oral 3 times per day amLODIPine 5 mg Oral Daily oxyCODONE 5 mg Oral Q6H PARoxetine 10 mg Per NG tube Daily fluconazole 200 mg IntraVENous Q24H insulin lispro 0-16 Units SubCUTAneous Q6H RT lansoprazole 30 mg Per G Tube QAM AC [Held by provider] bumetanide 2 mg IntraVENous BID meropenem 1,000 mg IntraVENous Q8H sodium chloride flush 5-40 mL IntraVENous 2 times per day heparin (porcine) 5,000 Units SubCUTAneous 3 times per day ipratropium 0.5 mg Nebulization Q4H WA RT Continuous Infusions: propofol 10 mcg/kg/min (09/11/22 0739) dexmedetomidine 1.3 mcg/kg/hr (09/11/22821) dextrose PRN Meds: fentanNYL OR fentanNYL, glucose, dextrose bolus OR dextrose bolus, glucagon (rDNA), dextrose, sodium chloride flush, dextrose bolus, sodium phosphate IVPB OR sodium phosphate IVPB OR sodium phosphate IVPB, polyethylene glycol, ipratropium 0.5 mg-albuterol 2.5 mg, albuterol Input/Output: I/O last 3 completed shifts: In: 5432.2 [I.V.:2237; NG/GT:2597; IV Piggyback:598.2] Out: 75702 [Urine:29222; Drains:135; Stool:100] Vital Signs: Temperature: Temp: 100.3 F (37.9 C) TMax: Temp (24hrs), Av.6 F (37.6 C), Min:99.1 F (37.3 C), Max:100.3 F (37.9 C) Respirations: Respirations: 23 Pulse: Pulse: 65 BP: BP: 113/69 BP Range: Systolic (24hrs), Av , Min:73 , Max:155 Diastolic (24hrs), Av, Min:58, Max:126 Physical Examination: General: Sedated on ventilator. FiO2 30%, agitated today. HEENT: Atraumatic, normocephalic, no throat congestion, moist mucosa. Eyes: Pupils equal, round and reactive to light, pallor, no icterus. Neck: No JVD, no thyromegaly, no lymphadenopathy. Chest: Air entry fair bilaterally, no crackles or wheeze Cardiac: S1 S2 RR no murmur Abdomen: Soft, obese, non-tender, no masses or organomegally appreciable, BS sluggish. : No suprapubic or flank tenderness. Neuro: Sedated on ventilator. Skin: No rashes, good skin turgor. Extremities: Minimal edema Labs: Recent Labs 09/09/22 0416 09/10/22 0435 09/11/22 0328 WBC 14.3* 13.4* 13.0* RBC 4.38 4.44 4.42 HGB 13.2 13.4 13.3 HCT 42.4 42.3 41.9 MCV 96.8 95.3 94.8 MCH 30.1 30.2 30.1 MCHC 31.1 31.7 31.7 RDW 12.1 12.3 12.3 PLT 234 234 223 MPV 10.0 10.3 10.5 BMP: Recent Labs 09/10/22 0435 09/10/22 1554 09/11/22 0328 NA 148* 147* 151* K 3.5* 3.7 3.2* CL 106 105 106 CO2 28 29 30 BUN 75* 71* 68* CREATININE 2.3* 2.2* 2.2* GLUCOSE 142* 210* 96 CALCIUM 8.8 8.8 8.7 Phosphorus: No results for input(s): PHOS in the last 72 hours. Magnesium: Recent Labs 09/11/22 0328 MG 2.0 SPEP: Lab Results Component Value Date/Time PROT 6.2 09/10/2022 04:35 AM C3: Lab Results Component Value Date/Time C3 128 09/04/2022 06:01 PM C4: Lab Results Component Value Date/Time C4 19 09/04/2022 06:01 PM Urinalysis/Chemistries: Lab Results Component Value Date/Time NITRU NEGATIVE 09/02/2022 01:37 AM COLORU Yellow 09/02/2022 01:37 AM PHUR 5.5 09/02/2022 01:37 AM WBCUA 0 TO 2 09/02/2022 01:37 AM RBCUA 20 TO 50 09/02/2022 01:37 AM MUCUS 1+ 09/02/2022 01:37 AM SPECGRAV 1.023 09/02/2022 01:37 AM LEUKOCYTESUR NEGATIVE 09/02/2022 01:37 AM UROBILINOGEN Normal 09/02/2022 01:37 AM BILIRUBINUR NEGATIVE 09/02/2022 01:37 AM GLUCOSEU 3+ 09/02/2022 01:37 AM KETUA LARGE 09/02/2022 01:37 AM Urine Sodium: Lab Results Component Value Date/Time DEANGELO 46 09/04/2022 06:02 PM Assessment: VELMA, nonoliguric secondary to ischemic ATN (osmotic diuresis related to DKA/infection-necrotizing fasciitis/hypotension). Patient creatinine unknown. Creatinine peaked at 3.4, improving. Necrotizing fasciitis involving left groin area s/p I&D on 09/02 on 09/03 Severe metabolic acidosis improved after intubation and bicarb containing IV fluids. DKA, now resolved. Circulatory shock requiring pressors. Currently off pressors. Obesity with diabetes mellitus. Significantly net positive intake, but improving with diuresis. Hypernatremia. Hypokalemia. 10. Metabolic alkalosis Plan: Hold Bumex in view of hypernatremia, hypokalemia and metabolic alkalosis. Start free water 250 q6 hr Strict I's and O's. Continue to monitor renal function. Labs as ordered Following. Recheck electrolytes later today Nutrition Please ensure that patient is on a renal diet/TF. Avoid nephrotoxic drugs/contrast exposure. Lianne Chamorro MD Internal Medicine Resident, PGY-2 [facility], [place], [place] 09/11/2022, 9:20 AM Attending Physician Statement I have discussed the care of Divina Amin, including pertinent history and exam findings with the resident/fellow. I have reviewed the william elements of all parts of the encounter with the resident/fellow. I have seen and examined the patient with the resident/fellow. I agree with the assessment and plan and status of the problem list as documented. Gurdeep Maldonado MD Nephrology Attending Physician [facility] 09/11/2022 INTENSIVE CARE UNIT Resident Physician Progress Note Patient - Divina Amin Date of Admission - 09/02/2022 12:12 AM Date of Evaluation - 09/11/2022 Room and Bed Number - 3011/3011-01 Hospital Day - 9 Chief Complaint Patient presents with Altered Mental Status SUBJECTIVE: HISTORY OF PRESENT ILLNESS: Divina Amin is a 61 y.o. with a past medical history of type 2 diabetes, asthma, COPD and obesity. [facility] after concerns for necrotizing fasciitis. Patient was initially alert and oriented x[facility], she was noted to have an elevated WBC count and abscess in the left groin which showed subcutaneous gas. Patient received 3 L of crystalloid fluids and a dose of vancomycin prior to transfer. In our emergency department the patient was altered ANO x0, VBG showed pH of 6.79, WBC count of 26, blood glucose in the 500s, beta hydroxybutyrate of 10, bicarb of less than 6. Patient was immediately evaluated by surgical team and another 2 L of fluids was given. Patient was initially started on DKA protocol in the emergency department. 1 amp of bicarb was given to her. On initial icu evaluation she was altered, not answering questions and not responding fully. Seem to be in acute distress. patient on a continuous bicarb drip, insulin drip , meropenem and linezolid by surgery team due to history of penicillin allergy. potassium was 5.2. Underwent debridement 09/02/2022, intubated for procedure Started on DKA protocol Repeat debridement 09/03. Repeat washout and closure on 09/04 OVERNIGHT EVENTS: Remains intubated and sedated on precedex 1.3 and propofol 10, no pressors, bumex 2mg IV bid, UOP 5.7L BP 144/65, acceptable, pulse 54, tmax 99.1, Was on Lisinopril and HCTZ at home. Now on Norvasc and hydralazine Tube feeds at goal AC/PRVC 20/400/5/35 VB.55/45.3/87.6/40.1 BE 15.7 BMP:K+ 3.2 replaced, Creatinine 2.2, Hypernatremia 151, BUN 74, glycemia 280, bicarb 30, WBC 13, Hb 13.3 Patient continues to follow commands with lower extremities only. Neurology consulted awaiting recommendations. OBJECTIVE: VITAL SIGNS: Patient Vitals for the past 8 hrs: BP Pulse Resp SpO2 09/11/22 0630 -- 65 21 98 % 09/11/22 0609 -- -- 20 -- 09/11/22 0600 123/60 63 23 98 % 09/11/22 0530 -- 63 20 96 % 09/11/22 0500 (!) 126/59 56 23 97 % 09/11/22 0430 -- 58 23 98 % 09/11/22 0409 -- 58 23 99 % 09/11/22 0400 129/63 56 22 97 % 09/11/22 0330 -- 61 23 97 % 09/11/22 0300 (!) 120/58 60 21 97 % 09/11/22 0230 -- 66 21 97 % 09/11/22 0200 138/63 63 21 97 % 09/11/22 0147 -- -- 22 -- 09/11/22 0130 -- 62 22 98 % 09/11/22 0100 (!) 142/81 69 23 97 % 09/11/22 0030 -- 70 26 98 % 09/11/22 0000 133/67 61 22 97 % 09/10/22 2348 -- -- 23 -- 09/10/22 2330 -- 73 23 97 % Last Body weight: Wt Readings from Last 3 Encounters: 09/02/22 297 lb 2.9 oz (134.8 kg) Body Mass Index : Body mass index is 54.35 kg/m . Tmax over 24 hours: Temp (24hrs), Av.2 F (37.3 C), Min:98.9 F (37.2 C), Max:99.4 F (37.4 C) Ins/Outs: In: 5432.2 [I.V.:2237; NG/GT:2597] Out: 97456 [Urine:77061; Drains:135] PHYSICAL EXAM: Constitutional: Intubated and sedated EENT: PERRLA, sclera clear, anicteric, oropharynx clear, no lesions, neck supple with midline trachea. R Ij triple lumen Neck: Supple, symmetrical, trachea midline, no adenopathy, thyroid symmetric, no jvd skin normal Respiratory: clear to auscultation, no wheezes or rales and unlabored breathing. No intercostal tenderness Cardiovascular: regular rate and rhythm, normal S1, S2, no murmur noted and 2+ pulses throughout Abdomen: Debrided lower abdominal wound, Extremities: peripheral pulses normal, no pedal edema, no clubbing or cyanosis MEDICATIONS: Scheduled Meds: insulin glargine 35 Units SubCUTAneous BID hydrALAZINE 25 mg Oral 3 times per day amLODIPine 5 mg Oral Daily oxyCODONE 5 mg Oral Q6H PARoxetine 10 mg Per NG tube Daily fluconazole 200 mg IntraVENous Q24H insulin lispro 0-16 Units SubCUTAneous Q6H RT lansoprazole 30 mg Per G Tube QAM AC bumetanide 2 mg IntraVENous BID meropenem 1,000 mg IntraVENous Q8H sodium chloride flush 5-40 mL IntraVENous 2 times per day heparin (porcine) 5,000 Units SubCUTAneous 3 times per day ipratropium 0.5 mg Nebulization Q4H WA RT Continuous Infusions: propofol 10 mcg/kg/min (09/11/22648) dexmedetomidine 1.3 mcg/kg/hr (09/11/22648) dextrose PRN Meds: fentanNYL, 50 mcg, Q2H PRN Or fentanNYL, 100 mcg, Q2H PRN glucose, 4 tablet, PRN dextrose bolus, 125 mL, PRN Or dextrose bolus, 250 mL, PRN glucagon (rDNA), 1 mg, PRN dextrose, , Continuous PRN sodium chloride flush, 5-40 mL, PRN dextrose bolus, 125 mL, PRN sodium phosphate IVPB, 10 mmol, PRN Or sodium phosphate IVPB, 15 mmol, PRN Or sodium phosphate IVPB, 20 mmol, PRN polyethylene glycol, 17 g, Daily PRN ipratropium 0.5 mg-albuterol 2.5 mg, 1 Dose, Q4H PRN albuterol, 2.5 mg, As Directed RT PRN SUPPORT DEVICES: [x] Ventilator [] BIPAP [] Nasal Cannula [] Room Air VENT SETTINGS (Comprehensive) (if applicable): Vent Information Ventilator ID: [id number] Equipment Changed: HME Ventilator Initiate: Yes Vent Mode: AC/PRVC Additional Respiratory Assessments Pulse: 65 Respirations: 21 SpO2: 98 % End Tidal CO2: 38 (%) Position: Semi-Multani's Humidification Source: HME Circuit Condensation: Drained Cuff Pressure (cm H2O): (MOV) Lab Results Component Value Date/Time MODE [facility] 09/11/2022 04:11 AM ABGs: No results found for: PH, PCO2, PO2, HCO3, O2SAT DATA: Complete Blood Count: Recent Labs 09/09/22 0416 09/10/22 0435 09/11/22 0328 WBC 14.3* 13.4* 13.0* RBC 4.38 4.44 4.42 HGB 13.2 13.4 13.3 HCT 42.4 42.3 41.9 MCV 96.8 95.3 94.8 MCH 30.1 30.2 30.1 MCHC 31.1 31.7 31.7 RDW 12.1 12.3 12.3 PLT 234 234 223 MPV 10.0 10.3 10.5 Last 3 Blood Glucose: Recent Labs 09/09/22 0416 09/10/22 0435 09/10/22 1554 09/11/22 0328 GLUCOSE 280* 142* 210* 96 PT/INR: Lab Results Component Value Date/Time PROTIME 17.5 09/02/2022 01:35 AM INR 1.5 09/02/2022 01:35 AM PTT: Lab Results Component Value Date/Time APTT 36.0 09/02/2022 01:35 AM Basic Metabolic Profile: Recent Labs 09/10/22 0435 09/10/22 1554 09/11/22 0328 NA 148* 147* 151* K 3.5* 3.7 3.2* CL 106 105 106 CO2 28 29 30 BUN 75* 71* 68* CREATININE 2.3* 2.2* 2.2* GLUCOSE 142* 210* 96 Liver Function: Recent Labs 09/10/22434 PROT 6.2* LABALBU 2.3* ALT 14 AST 64* ALKPHOS 118* BILITOT 0.4 Magnesium: Lab Results Component Value Date/Time MG 2.0 09/11/2022 03:28 AM MG 1.9 09/05/2022 04:23 AM MG 1.8 09/05/2022 12:22 AM Phosphorus: Lab Results Component Value Date/Time PHOS 3.7 09/05/2022 04:23 AM PHOS 3.2 09/05/2022 12:22 AM PHOS 3.5 09/04/2022 08:09 PM Ionized Calcium: Lab Results Component Value Date/Time CAION 1.25 09/02/2022 04:10 AM Urinalysis: Lab Results Component Value Date/Time NITRU NEGATIVE 09/02/2022 01:37 AM COLORU Yellow 09/02/2022 01:37 AM PHUR 5.5 09/02/2022 01:37 AM WBCUA 0 TO 2 09/02/2022 01:37 AM RBCUA 20 TO 50 09/02/2022 01:37 AM MUCUS 1+ 09/02/2022 01:37 AM SPECGRAV 1.023 09/02/2022 01:37 AM LEUKOCYTESUR NEGATIVE 09/02/2022 01:37 AM UROBILINOGEN Normal 09/02/2022 01:37 AM BILIRUBINUR NEGATIVE 09/02/2022 01:37 AM GLUCOSEU 3+ 09/02/2022 01:37 AM KETUA LARGE 09/02/2022 01:37 AM HgBA1c: Lab Results Component Value Date/Time LABA1C 12.5 09/02/2022 06:03 AM TSH: No results found for: TSH Lactic Acid: No results found for: LACTA Troponin: No results for input(s): TROPONINI in the last 72 hours. Microbiology: Urine Culture: No components found for: CURINE Blood Culture: No components found for: CBLOOD, CFUNGUSBL Sputum Culture: No components found for: CSPUTUM Radiology/Imaging: CT HEAD WO CONTRAST Final Result Study limited by motion artifact. No acute intracranial abnormality. Mild age-appropriate atrophy and small-vessel disease ischemic changes. Patient is intubated. CT CHEST ABDOMEN PELVIS WO CONTRAST Additional Contrast? None Preliminary Result 1. Drainage catheters are noted in the left groin/perineum without drainable fluid collection or new soft tissue gas. 2. Anasarca. 3. New bilateral pleural effusions with patchy ground-glass opacities in the left upper lobe, likely infectious or inflammatory in etiology. 4. No new acute findings in the abdomen or pelvis. XR CHEST PORTABLE Final Result Patchy airspace opacities most pronounced in the right mid to lower lung view, may be related to mild pulmonary edema versus pneumonia. Mild bilateral pleural effusions. US RENAL COMPLETE Final Result 1. Simple midpole left renal cyst measuring 2.7 cm. 2. No hydronephrosis. XR CHEST PORTABLE Final Result Decreased pulmonary edema Otherwise, stable chest XR ABDOMEN FOR NG/OG/NE TUBE PLACEMENT Final Result OG tube in satisfactory position. XR CHEST (SINGLE VIEW FRONTAL) Final Result Endotracheal tube in satisfactory position. Right IJ line unchanged. Mild congestive failure, stable. XR CHEST PORTABLE Final Result Right IJ catheter with tip at the inferior SVC. No pneumothorax. Findings of interstitial pulmonary edema. ASSESSMENT: Patient Active Problem List Diagnosis Date Noted Bandemia 09/10/2022 Deborah gangrene 09/10/2022 Septic shock ([facility]) 09/06/2022 Acute respiratory failure with hypoxia ([facility]) 09/05/2022 Diabetic acidosis without coma (HCC) 09/05/2022 GEMA (obstructive sleep apnea) 09/05/2022 VELMA (acute kidney injury) ([facility]) 09/03/2022 Necrotizing fasciitis ([facility]) 09/02/2022 Metabolic acidosis 09/02/2022 Hypernatremia 09/02/2022 Hypokalemia 09/02/2022 PLAN: PLAN/MEDICAL DECISION MAKING: Neurologic: Neurology consult. Awaiting recommendations. Patient follows commands with lower extremities only does move upper extremities spontaneously. Neuro checks per protocol On propofol and precedex Approximately 5 mg every 6 hours, fentanyl 50/100 mcg Every 2 hours as needed. Consider increasing p.o. and decreasing IV. Home Paxil daily Cardiovascular: History of hypertension, on hydrochlorothiazide 25 mg daily at home, amlodipine 5 mg daily hydralazine 25 mg every 8 hours Hemodynamically stable MAP goal 65 Pulmonary: History of asthma and COPD, on albuterol at home Atrovent nebulization ordered due to tachycardia Maintain oxygen sats >92%Maintain oxygen sats >92% Pulmonary toilet Vent Information Ventilator ID: [id number] Equipment Changed: HME Ventilator Initiate: Yes Vent Mode: AC/PRVC GI/Nutrition On tube feeds at goal rate 50 cc/h Ulcer Prophylaxis: Prevacid daily Diet:Diet NPO ADULT TUBE FEEDING; Orogastric; Peptide Based High Protein; Continuous; 10; Yes; 10; Q 4 hours; 50; 30; Q 4 hours Bowel regimen with GlycoLax daily as needed Renal/Fluid/Electrolyte Metabolic acidosis due to DKA. Had bicarb drip. Switched to D5/half normal. Off IVF VELMA with poor urine output, nephrology following, UOP improving on lasix drip I/O: In: 5432.2 [I.V.:2237; NG/GT:2597] Out: 80322 [Urine:65072; Drains:135] Monitor electrolytes, replace PRN K replaced Na 151 started on free water 200 cc 4 times daily per nephrology ID Necrotizing fasciitis in the left groin S/p multiple debridements of necrotizing soft tissue infection of the left groin/perineum. S/p washout and closure 09/04 Infectious disease and surgery following WBC: Lab Results Component Value Date WBC 13.0 (H) 09/11/2022 Tmax: Temp (24hrs), Av.2 F (37.3 C), Min:98.9 F (37.2 C), Max:99.4 F (37.4 C) Antimicrobials: Meropenem and Diflucan. ID following Hematology: Recent Labs 09/09/22 0416 09/10/22 0435 09/11/22 0328 HGB 13.2 13.4 13.3 stable Endocrine: Type II diabetes: had insulin drip Per DKA protocol. Now on Lantus 30 BID. and MDSS glucose controlled - most recent BGL is Recent Labs 09/10/22 0435 09/10/22 1554 09/11/22 0328 GLUCOSE 142* 210* 96 DVT Prophylaxis Heparin Discharge Needs: PT, OT, and Case Management CODE STATUS: Full Code DISPOSITION: [x] To remain ICU: [] OK for out of ICU from Critical Care standpoint Debi Brooke DO Emergency Medicine Resident PGY2 [facility]; [place], [place] 09/11/2022, 7:00 AM Attending Physician Statement I have discussed the care of Divina Amin, including pertinent history and exam findings with the resident. I have reviewed the william elements of all parts of the encounter with the resident. I have seen and examined the patient with the resident. I agree with the assessment and plan and status of the problem list as documented. I have seen the patient during the rounds this morning, chart reviewed, labs and medications reviewed. Patient is on Precedex drip and on propofol 10 mcg. She is responding slightly better today she respond to name by opening her eyes and she intermittently follows command with upper and lower extremities which is much better than she has been since admission. She is on Bumex 2 mg twice daily by nephrology currently was on hold this morning had received Bumex already this morning. Her sodium is 151 bicarbonate is increased urine output is 6.6 L in last 24 hours she is on free water. Ventilator setting PRVC/20/400/5/30 percent ABG 7.5 //40 consistent with metabolic alkalosis. BUN is 68 creatinine is 2.2 both are improving. She is on meropenem and Diflucan. Ventilator setting PRVC/20/400/5/30 5% ABG 7.5 //40. She has not tolerated standard breathing trial CPAP/pressure support so far but today she is doing better. We will continue to monitor neurological status and mentation and as she continued to improve if able to protect airways and airway secretion handling and tolerates spontaneous breathing trial then extubation we will do spontaneous breathing trial daily. Discussed with daughter and updated. Discussed with nursing staff, treatment and plan discussed. Discussed with respiratory therapist. Total critical care time caring for this patient with life threatening, unstable organ failure, including direct patient contact, management of life support systems, review of data including imaging and labs, discussions with other team members and physicians at least 30 Min so far today, excluding procedures. Please note that this chart was generated using voice recognition [employer] dictation software. Although every effort was made to ensure the accuracy of this automated freezer machine operator, some errors in freezer machine operator may have occurred. Kash Garcia MD 09/11/2022 10:50 AM Renal Progress Note Patient : Divina Amin; 61 y.o. Location: 3011/3011-01 Attending: Nader Smith MD Admit Date: 09/02/2022 Hospital Day: 8 Subjective: Patient seen and examined at bedside. No acute events overnight. Remains on vent, on propofol and Precedex. Remains off pressors. Afebrile, vital signs stable, remains off pressors. Mildly bradycardic. U/o 5.7 Liters past 24 hours. Improving Net + balance. On tube feeds. Continued on Bumex 2 mg twice daily. Urine output 4.1 L over the last 24 hours. Net -2 L yesterday net +14 L since admission. Labs this a.m. show sodium 148, potassium 3.5, chloride 165, bicarb 28, BUN 75, creatinine 2.3, calcium 8.8. History reviewed: 61-year-old female came from outside facility with pain and redness involving involving her left buttock area and groin and was found to have necrotizing fasciitis, got transferred to [facility] for further management. She was noted to also have DKA with severe metabolic acidosis with pH about 6.8 with associated shock and VELMA. She was started on vasopressors, was taken to the OR by surgery with I&D performed. Started on bicarb containing fluids as well as insulin. Nephrology consulted for VELMA, was started on Lasix drip. Outpatient Medications: No medications prior to admission. Current Medications: Scheduled Meds: insulin glargine 35 Units SubCUTAneous BID hydrALAZINE 25 mg Oral 3 times per day amLODIPine 5 mg Oral Daily oxyCODONE 5 mg Oral Q6H PARoxetine 10 mg Per NG tube Daily fluconazole 200 mg IntraVENous Q24H insulin lispro 0-16 Units SubCUTAneous Q6H RT lansoprazole 30 mg Per G Tube QAM AC [Held by provider] bumetanide 2 mg IntraVENous BID meropenem 1,000 mg IntraVENous Q8H sodium chloride flush 5-40 mL IntraVENous 2 times per day heparin (porcine) 5,000 Units SubCUTAneous 3 times per day ipratropium 0.5 mg Nebulization Q4H WA RT Continuous Infusions: propofol 10 mcg/kg/min (09/10/22 0848) dexmedetomidine 1.4 mcg/kg/hr (09/10/22 1037) dextrose PRN Meds: fentanNYL OR fentanNYL, glucose, dextrose bolus OR dextrose bolus, glucagon (rDNA), dextrose, sodium chloride flush, dextrose bolus, sodium phosphate IVPB OR sodium phosphate IVPB OR sodium phosphate IVPB, polyethylene glycol, ipratropium 0.5 mg-albuterol 2.5 mg, albuterol Input/Output: I/O last 3 completed shifts: In: 4931.8 [I.V.:2530; NG/GT:1603; IV Piggyback:798.9] Out: 8230 [Urine:8075; Drains:80; Stool:75] Vital Signs: Temperature: Temp: 98.9 F (37.2 C) TMax: Temp (24hrs), Av.7 F (37.1 C), Min:98.1 F (36.7 C), Max:99.1 F (37.3 C) Respirations: Respirations: 21 Pulse: Pulse: 62 BP: BP: 130/65 BP Range: Systolic (24hrs), Av , Min:116 , Max:166 Diastolic (24hrs), Av, Min:58, Max:80 Physical Examination: General: Sedated on ventilator. FiO2 30% HEENT: Atraumatic, normocephalic, no throat congestion, moist mucosa. Eyes: Pupils equal, round and reactive to light, pallor, no icterus. Neck: No JVD, no thyromegaly, no lymphadenopathy. Chest: Air entry fair bilaterally, no crackles or wheeze Cardiac: S1 S2 RR no murmur Abdomen: Soft, obese, non-tender, no masses or organomegally appreciable, BS sluggish. : No suprapubic or flank tenderness. Neuro: Sedated on ventilator. Skin: No rashes, good skin turgor. Extremities: Minimal edema Labs: Recent Labs 09/08/22 0546 09/09/22 0416 09/10/22 0435 WBC 12.7* 14.3* 13.4* RBC 4.34 4.38 4.44 HGB 13.1 13.2 13.4 HCT 41.0 42.4 42.3 MCV 94.5 96.8 95.3 MCH 30.2 30.1 30.2 MCHC 32.0 31.1 31.7 RDW 12.2 12.1 12.3 PLT 249 234 234 MPV 10.7 10.0 10.3 BMP: Recent Labs 09/08/22 0546 09/09/22 0416 09/10/22 0435 NA 142 145* 148* K 5.0 3.9 3.5* CL 104 105 106 CO2 25 27 28 BUN 73* 74* 75* CREATININE 3.2* 2.8* 2.3* GLUCOSE 267* 280* 142* CALCIUM 9.0 9.0 8.8 Phosphorus: No results for input(s): PHOS in the last 72 hours. Magnesium: No results for input(s): MG in the last 72 hours. SPEP: Lab Results Component Value Date/Time PROT 6.2 09/10/2022 04:35 AM C3: Lab Results Component Value Date/Time C3 128 09/04/2022 06:01 PM C4: Lab Results Component Value Date/Time C4 19 09/04/2022 06:01 PM Urinalysis/Chemistries: Lab Results Component Value Date/Time NITRU NEGATIVE 09/02/2022 01:37 AM COLORU Yellow 09/02/2022 01:37 AM PHUR 5.5 09/02/2022 01:37 AM WBCUA 0 TO 2 09/02/2022 01:37 AM RBCUA 20 TO 50 09/02/2022 01:37 AM MUCUS 1+ 09/02/2022 01:37 AM SPECGRAV 1.023 09/02/2022 01:37 AM LEUKOCYTESUR NEGATIVE 09/02/2022 01:37 AM UROBILINOGEN Normal 09/02/2022 01:37 AM BILIRUBINUR NEGATIVE 09/02/2022 01:37 AM GLUCOSEU 3+ 09/02/2022 01:37 AM KETUA LARGE 09/02/2022 01:37 AM Urine Sodium: Lab Results Component Value Date/Time DEANGELO 46 09/04/2022 06:02 PM Assessment: VELMA, nonoliguric secondary to ischemic ATN (osmotic diuresis related to DKA/infection-necrotizing fasciitis/hypotension). Patient creatinine unknown. Creatinine peaked at 3.4, improving. Necrotizing fasciitis involving left groin area s/p I&D on 09/02 on 09/03 Severe metabolic acidosis improved after intubation and bicarb containing IV fluids. DKA, now resolved. Circulatory shock requiring pressors. Currently off pressors. Obesity with diabetes mellitus. Significantly net positive intake, but improving with diuresis. Hypernatremia Plan: Continue Bumex 2 mg IV twice daily. Strict I's and O's. Continue to monitor renal function Start free water 200cc 4 times daily. Replace K Labs as ordered Following. Will discuss with Dr. Maldonado Nutrition Please ensure that patient is on a renal diet/TF. Avoid nephrotoxic drugs/contrast exposure. GLENDY PETERSEN APN [facility] Attending Physician Statement I have discussed the care of Divina Amin, including pertinent history and exam findings with the FISHERY DIV[employer] CHIEF. I have reviewed the william elements of all parts of the encounter with the FISHERY DIVISION CHIEF. I have seen and examined the patient. I agree with the assessment and plan and status of the problem list as documented. Gurdeep Maldonado MD Nephrology Attending Physician [facility] 09/10/2022 Images from the original note were not included. [facility] Progress Note Divina Amin Date: 09/10/2022 LOS: 8 Reason for F/U : Necrotizing soft tissue infection Impression : Left perineal, thigh/gluteal necrotizing soft tissue infection - Deborah in a diabetic status post surgical drainage 09/02/2022 Status post second look/I&D 09/03/2022 Status post irrigation and closure of left thigh and groin and buttock soft tissue defect 09/04/2022 No cx available Acute respiratory failure currently ventilator dependent MICHAEL ground glass infilt, 09/09 -? Asp pneumonia Bilat moderate pleural effusions Shock-resolved Diabetes mellitus with DKA currently on insulin drip Extreme obesity Acute kidney injury with unknown baseline creatinine COPD Bandemia - improved Recommendations: meropenem fluconazole since 09/07 - FU LFTs On iv insulin for DKA GS for Deborah - drains w 50 cc outpt Infection Control Recommendations: [place] precautions Discharge Planning: Estimated Length of IV antimicrobials: To be determined Patient will need Midline Catheter Insertion/ PICC line Insertion: No Patient will need: Home IV , Infusion Center, SNF, LTAC: Undetermined Patient willneed outpatient wound care: No Medical Decision making / Summary of Stay: Divina Amin is a 61 y.o.-year-old female who was initially admitted on 09/02/2022. Divina is a morbidly obese diabetic female with also a history of asthma/COPD and is currently intubated and the history is obtained from the daughter who is at bedside. It is my understanding that Divina has had a history of boils in her left groin area which have previously been drained in the past. She has certainly not needed to be hospitalized for these and she had been complaining of a boil/infection in her left groin for about a week at home. The patient ended up being started on Bactrim about a day ago but the daughter after getting home from work in the late afternoon yesterday found that Divina was out of it and was having difficulty ambulating going to the bathroom. She ended up calling EMS and the patient was taken to an outlying facility in [place] where work-up showed some leukocytosis, left groin soft tissue infection with some soft tissue gas and the patient was hypotensive. The patient received fluid resuscitation and was transferred here where blood sugars were elevated and the patient was started on the DKA protocol. The patient became more confused and was seen by the general surgery team started on antimicrobial therapy with meropenem and linezolid due to history of a penicillin allergy. The patient had an obvious wound on the left perineum/upper thigh that was protruding necrotic and fluctuant. The patient was taken to the operating room this morning underwent incision and drainage of her left thigh/left groin and buttocks abscess/soft tissue infection and there was a sinclair necrotizing tissue appreciated during the surgery. The margins included the left major labia majora, left upper thigh, left inferior groin, left perineum/gluteal area. The patient is currently in the intensive care unit and I was asked to evaluate and help with antibiotic choice. The patient was taken to the operating room 09/03/2022 and underwent second look/debridement procedure of the left groin/thigh area. The patient was taken to the operating room 09/04/2022 and underwent irrigation and closure of the left thigh groin buttock and soft tissue defect after the patient was found to have a clean wound base and there was placement of 2 flat JESSICA drains with multilayer closure. Current evaluation:09/10/2022 BP 139/65 Pulse 62 Temp 98.8 F (37.1 C) (Axillary) Resp 21 Ht 5' 2 (1.575 m) Wt 297 lb 2.9 oz (134.8 kg) SpO2 96% BMI 54.35 kg/m Temperature Range: Temp: 98.8 F (37.1 C) Temp Av.6 F (37 C) Min: 98.1 F (36.7 C) Max: 99.1 F (37.3 C) The patient is seen and evaluated bedside she is on the ventilator at 30% FiO2 and 5 of PEEP. The patient remains on sedation with Precedex and propofol and is agitated moving her head from side to side and did not follow any commands for me. The care was discussed with the nurse at bedside 09/10/22 Remains on the ventilator 35IO2 Wound cleaned today and is clean Abd soft - agitated Sp small CT scan of the head 09/[address] scan chest abdomen pelvis 09/09 left upper lobe groundglass opacity and left groin the drainage catheter without obvious collections WBC is 13 Creat 2.8 - 2.3 better BC 09/02 neg MRSA nasal neg 09/02 U cx neg 09/02 CTAPC 09/09/22 Impression: 1. Drainage catheters are noted in the left groin/perineum without drainable fluid collection or new soft tissue gas. 2. Anasarca. 3. New bilateral pleural effusions with patchy ground-glass opacities in the left upper lobe, likely infectious or inflammatory in etiology. 4. No new acute findings in the abdomen or pelvis. Review of Systems Unable to perform ROS: Intubated Physical Examination : Physical Exam Constitutional: General: She is not in acute distress. Appearance: She is well-developed. She is obese. She is not ill-appearing. Interventions: She is sedated and intubated. HENT: Head: Normocephalic and atraumatic. Nose: Nose normal. Mouth/Throat: Mouth: Mucous membranes are moist. Eyes: General: No scleral icterus. Conjunctiva/sclera: Conjunctivae normal. Cardiovascular: Rate and Rhythm: Normal rate and regular rhythm. Heart sounds: Normal heart sounds. Pulmonary: Effort: Pulmonary effort is normal. She is intubated. Breath sounds: Normal breath sounds. Abdominal: General: Bowel sounds are normal. Palpations: Abdomen is soft. Genitourinary: Comments: Urine dario Musculoskeletal: General: No swelling or deformity. Cervical back: Neck supple. No rigidity. Skin: General: Skin is warm and dry. Coloration: Skin is not jaundiced. Findings: No bruising. Comments: There is a dressing in the perineal area which was not removed Neurological: Comments: intubated Psychiatric: Comments: intubated Laboratory data: I have independently reviewed the followinglabs: CBC with Differential: Recent Labs 09/09/22 0416 09/10/22 0435 WBC 14.3* 13.4* HGB 13.2 13.4 HCT 42.4 42.3 PLT 234 234 LYMPHOPCT 22* 21* MONOPCT 6 11 BMP: Recent Labs 09/09/22 0416 09/10/22 0435 NA 145* 148* K 3.9 3.5* CL 105 106 CO2 27 28 BUN 74* 75* CREATININE 2.8* 2.3* Hepatic Function Panel: No results for input(s): PROT, LABALBU, BILIDIR, IBILI, BILITOT, ALKPHOS, ALT, AST in the last 72 hours. No results found for: PROCAL Lab Results Component Value Date/Time CRP 489.6 09/02/2022 01:35 AM No results found for: SEDRATE No results found for: DDIMER No results found for: FERRITIN No results found for: LDH No results found for: FIBRINOGEN No results found for requested labs within last 30 days. No results found for: COVID19 No results for input(s): VANCOTROUGH in the last 72 hours. Imaging Studies: RETROPERITONEAL ULTRASOUND OF THE KIDNEYS AND URINARY BLADDER 09/03/2022 IMPRESSION: 1. Simple midpole left renal cyst measuring 2.7 cm. 2. No hydronephrosis. Specimen Collected: 09/03/22 12:52 EDT Last Resulted: 09/03/22 13:03 EDT Cultures: Culture, Blood 1 [[id number]] Collected: 09/02/22 0620 Order Status: Completed Specimen: Blood Updated: 09/07/22724 Specimen Description .BLOOD Special Requests R FA 5ML Culture NO GROWTH 5 DAYS Culture, Blood 2 [[id number]] Collected: 09/02/22624 Order Status: Completed Specimen: Blood Updated: 09/07/22724 Specimen Description .BLOOD Special Requests R HAND 3ML Culture NO GROWTH 5 DAYS Culture, Blood 1 [[id number]] Collected: 09/02/22 0104 Order Status: Completed Specimen: Blood Updated: 09/07/22 0205 Specimen Description .BLOOD Special Requests RJUG, 10ML Culture NO GROWTH 5 DAYS MRSA DNA Probe, Nasal [[id number]] Collected: 09/02/22 0600 Order Status: Completed Specimen: Nasal Updated: 09/03/22 1028 Specimen Description .NASAL SWAB MRSA, DNA, Nasal NEGATIVE Comment: NEGATIVE: MRSA DNA not detected by nucleic acid amplification. Results should be used as an adjunct to nosocomial control efforts to identify patients needing enhanced precautions. The test is not intended to identify patients with staphylococcal infections. Results should not be used to guide or monitor treatment for MRSA infections. Culture, Urine [[id number]] Collected: 09/02/22 0138 Order Status: Completed Specimen: Urine, clean catch Updated: 09/03/22 0832 Specimen Description .CLEAN CATCH URINE Culture NO GROWTH Medications: insulin glargine 35 Units SubCUTAneous BID hydrALAZINE 25 mg Oral 3 times per day amLODIPine 5 mg Oral Daily oxyCODONE 5 mg Oral Q6H PARoxetine 10 mg Per NG tube Daily fluconazole 200 mg IntraVENous Q24H insulin lispro 0-16 Units SubCUTAneous Q6H RT lansoprazole 30 mg Per G Tube QAM AC [Held by provider] bumetanide 2 mg IntraVENous BID meropenem 1,000 mg IntraVENous Q8H sodium chloride flush 5-40 mL IntraVENous 2 times per day heparin (porcine) 5,000 Units SubCUTAneous 3 times per day ipratropium 0.5 mg Nebulization Q4H WA RT [facility] Nuvia Baker MD [employer] messaging OFFICE: Thank you for allowing us to participate in the care of this patient. Please call with questions. This note is created with the assistance of a speech recognition program. While intending to generate a document that actually reflects the content of the visit, the document can still have some errors including those of syntax and sound a like substitutions which may escape proof reading. In such instances, actual meaning can be extrapolated by contextual diversion. Images from the original note were not included. PROGRESS NOTE PATIENT NAME: Divina Amin DATE: 09/10/2022 HD: # 8 Patient Active Problem List Diagnosis Necrotizing fasciitis (HCC) Metabolic acidosis Hypernatremia Hypokalemia VELMA (acute kidney injury) (HCC) Acute respiratory failure with hypoxia (HCC) Diabetic acidosis without coma (HCC) GEMA (obstructive sleep apnea) Septic shock (HCC) DIAGNOSIS AND PLAN Cont management per critical care team S/p multiple debridements of necrotizing soft tissue infection of the left groin/perineum. S/p washout and closure 09/04 Wound care: change ABD pads over groin incision BID Continue JESSICA drains to bulb suction, monitor and record output (50cc/24h) Abx per ID Continue strict glucose control for healing purposes with goal <180 Monitor leukocytosis, decreasing today CT scan reviewed No further surgical interventions planned. Continuing to monitor wound and drain outputs SUBJECTIVE Remains intubated. Off pressor support. Minimal vent settings. Difficulty with patient following commands thus unable to wean from vent. OBJECTIVE VITALS: Vitals: 09/10/22 1118 BP: Pulse: 60 Resp: 22 Temp: SpO2: 97% General: Intubated on the ventilator, no acute distress Pulmonary/Chest: Equal chest rise, intubated Cardiovascular: Regular rate and rhythm Abdomen: Soft, nontender, nondistended. Extremities: No cyanosis, clubbing, edema, or effusions. Skin: Left perineum/buttock with prolene sutures in place and no significant drainage and ABD dressings in place, skin surrounding the sutures is erythematous, no fluctuance, continues to be some induration, no sign of purulent drainage, JESSICA drains exiting left thigh with SS drainage LAB: CBC: Recent Labs 09/08/22 0546 09/09/226 09/10/22 0435 WBC 12.7* 14.3* 13.4* HGB 13.1 13.2 13.4 HCT 41.0 42.4 42.3 MCV 94.5 96.8 95.3 PLT 249 234 234 BMP: Recent Labs 09/08/22 0546 09/09/226 09/10/22 0435 NA 142 145* 148* K 5.0 3.9 3.5* CL 104 105 106 CO2 25 27 28 BUN 73* 74* 75* CREATININE 3.2* 2.8* 2.3* GLUCOSE 267* 280* 142* Imaging: CT HEAD WO CONTRAST Result Date: 09/09/2022 Study limited by motion artifact. No acute intracranial abnormality. Mild age-appropriate atrophy and small-vessel disease ischemic changes. Patient is intubated. XR CHEST PORTABLE Result Date: 09/09/2022 Patchy airspace opacities most pronounced in the right mid to lower lung view, may be related to mild pulmonary edema versus pneumonia. Mild bilateral pleural effusions. CT CHEST ABDOMEN PELVIS WO CONTRAST Additional Contrast? None Result Date: 09/09/2022 1. Drainage catheters are noted in the left groin/perineum without drainable fluid collection or new soft tissue gas. 2. Anasarca. 3. New bilateral pleural effusions with patchy ground-glass opacities in the left upper lobe, likely infectious or inflammatory in etiology. 4. No new acute findings in the abdomen or pelvis. Eligio Freeman DO PGY 4 General Surgery Resident 09/10/22 12:05 PM INTENSIVE CARE UNIT Resident Physician Progress Note Patient - Divina Amin Date of Admission - 09/02/2022 12:12 AM Date of Evaluation - 09/10/2022 Room and Bed Number - 3011/3011-01 Hospital Day - 8 Chief Complaint Patient presents with Altered Mental Status SUBJECTIVE: HISTORY OF PRESENT ILLNESS: Divina Amin is a 61 y.o. with a past medical history of type 2 diabetes, asthma, COPD and obesity. [facility] after concerns for necrotizing fasciitis. Patient was initially alert and oriented [facility], she was noted to have an elevated WBC count and abscess in the left groin which showed subcutaneous gas. Patient received 3 L of crystalloid fluids and a dose of vancomycin prior to transfer. In our emergency department the patient was altered ANO x0, VBG showed pH of 6.79, WBC count of 26, blood glucose in the 500s, beta hydroxybutyrate of 10, bicarb of less than 6. Patient was immediately evaluated by surgical team and another 2 L of fluids was given. Patient was initially started on DKA protocol in the emergency department. 1 amp of bicarb was given to her. On initial icu evaluation she was altered, not answering questions and not responding fully. Seem to be in acute distress. patient on a continuous bicarb drip, insulin drip , meropenem and linezolid by surgery team due to history of penicillin allergy. potassium was 5.2. Underwent debridement 09/02/2022, intubated for procedure Started on DKA protocol Repeat debridement 09/03. OVERNIGHT EVENTS: Remains intubated and sedated on precedex 1.5 and propofol 10, no pressors, bumex 2mg IV bid, UOP 5.7L BP 144/65, acceptable, pulse 54, tmax 99.1, Was on Lisinopril and HCTZ at home. Now on Norvasc and hydralazine Tube feeds at goal Glycemia 125 Lantus 45 BID, required 20 units short acting, decrease to lantus 35 bid AC/PRVC 20/400/5/35 VB.53/42/68/36 BMP:K+ 3.5 replaced, Creatinine 3.2->2.3, Hypernatremia 148, BUN 74, glycemia 280, bicarb 25, WBC 13, Hb 12,. Plan: - Decrease to lantus to 35 bid - Continue On Meropenem D8, Zyvox d/jose. on Diflucan. Follow ID recomendations - Monitor BP, resume antihypertensives - follow surgery recommendations - Follow nephrology recommendations OBJECTIVE: VITAL SIGNS: Patient Vitals for the past 8 hrs: BP Temp Temp src Pulse Resp SpO2 09/10/22 0700 -- -- -- 53 20 97 % 09/10/22 0636 -- -- -- -- 20 -- 09/10/22 0630 -- -- -- 56 21 96 % 09/10/22 0600 (!) 144/65 -- -- 53 20 96 % 09/10/22 0530 -- -- -- 53 19 96 % 09/10/22 0500 (!) 143/66 -- -- 57 18 97 % 09/10/22 0457 -- -- -- -- 22 -- 09/10/22 0430 -- -- -- 54 20 93 % 09/10/22 0421 -- -- -- 60 25 95 % 09/10/22 0400 127/80 98.8 F (37.1 C) Axillary 62 20 97 % 09/10/22 0358 -- -- -- 60 18 96 % 09/10/22 0330 -- -- -- 59 20 95 % 09/10/22 0300 (!) 140/65 -- -- 61 21 96 % 09/10/22 0230 -- -- -- 61 23 96 % 09/10/22 0200 136/71 -- -- 61 21 96 % 09/10/22 0130 -- -- -- 58 21 95 % 09/10/22 0100 116/65 -- -- 61 23 95 % 09/10/22 0030 -- -- -- 61 24 97 % 09/10/22 0000 (!) 142/60 98.9 F (37.2 C) Axillary 56 20 95 % 09/09/22 2330 -- -- -- 55 21 95 % 09/09/22 2305 -- -- -- -- 22 -- Last Body weight: Wt Readings from Last 3 Encounters: 09/02/22 297 lb 2.9 oz (134.8 kg) Body Mass Index : Body mass index is 54.35 kg/m . Tmax over 24 hours: Temp (24hrs), Av.7 F (37.1 C), Min:98.1 F (36.7 C), Max:99.7 F (37.6 C) Ins/Outs: In: 4888.2 [I.V.:2516.3; NG/GT:1573] Out: 8230 [Urine:8075; Drains:80] PHYSICAL EXAM: Constitutional: Intubated and sedated EENT: PERRLA, EOMI, sclera clear, anicteric, oropharynx clear, no lesions, neck supple with midline trachea. Neck: Supple, symmetrical, trachea midline, no adenopathy, thyroid symmetric, no jvd skin normal Respiratory: clear to auscultation, no wheezes or rales and unlabored breathing. No intercostal tenderness Cardiovascular: regular rate and rhythm, normal S1, S2, no murmur noted and 2+ pulses throughout Abdomen: Debrided lower abdominal wound, Extremities: peripheral pulses normal, no pedal edema, no clubbing or cyanosis MEDICATIONS: Scheduled Meds: insulin glargine 45 Units SubCUTAneous BID hydrALAZINE 25 mg Oral 3 times per day amLODIPine 5 mg Oral Daily oxyCODONE 5 mg Oral Q6H PARoxetine 10 mg Per NG tube Daily fluconazole 200 mg IntraVENous Q24H insulin lispro 0-16 Units SubCUTAneous Q6H RT lansoprazole 30 mg Per G Tube QAM AC bumetanide 2 mg IntraVENous BID meropenem 1,000 mg IntraVENous Q8H sodium chloride flush 5-40 mL IntraVENous 2 times per day heparin (porcine) 5,000 Units SubCUTAneous 3 times per day ipratropium 0.5 mg Nebulization Q4H WA RT Continuous Infusions: propofol 10 mcg/kg/min (09/10/22645) dexmedetomidine 1.5 mcg/kg/hr (09/10/22645) dextrose PRN Meds: fentanNYL, 50 mcg, Q2H PRN Or fentanNYL, 100 mcg, Q2H PRN glucose, 4 tablet, PRN dextrose bolus, 125 mL, PRN Or dextrose bolus, 250 mL, PRN glucagon (rDNA), 1 mg, PRN dextrose, , Continuous PRN sodium chloride flush, 5-40 mL, PRN dextrose bolus, 125 mL, PRN sodium phosphate IVPB, 10 mmol, PRN Or sodium phosphate IVPB, 15 mmol, PRN Or sodium phosphate IVPB, 20 mmol, PRN polyethylene glycol, 17 g, Daily PRN ipratropium 0.5 mg-albuterol 2.5 mg, 1 Dose, Q4H PRN albuterol, 2.5 mg, As Directed RT PRN SUPPORT DEVICES: [x] Ventilator [] BIPAP [] Nasal Cannula [] Room Air VENT SETTINGS (Comprehensive) (if applicable): Vent Information Ventilator ID: [id number] Equipment Changed: HME Ventilator Initiate: Yes Vent Mode: AC/PRVC Additional Respiratory Assessments Pulse: 53 Respirations: 20 SpO2: 97 % End Tidal CO2: 35 (%) Position: Semi-Multani's Humidification Source: HME Circuit Condensation: Drained Cuff Pressure (cm H2O): (MOV) Lab Results Component Value Date/Time MODE [facility] 09/10/2022 04:18 AM ABGs: No results found for: PH, PCO2, PO2, HCO3, O2SAT DATA: Complete Blood Count: Recent Labs 09/08/22 0546 09/09/2241509/10/22 043 WBC 12.7* 14.3* 13.4* RBC 4.34 4.38 4.44 HGB 13.1 13.2 13.4 HCT 41.0 42.4 42.3 MCV 94.5 96.8 95.3 MCH 30.2 30.1 30.2 MCHC 32.0 31.1 31.7 RDW 12.2 12.1 12.3 PLT 249 234 234 MPV 10.7 10.0 10.3 Last 3 Blood Glucose: Recent Labs 09/08/22 0546 09/09/226 09/10/22 0435 GLUCOSE 267* 280* 142* PT/INR: Lab Results Component Value Date/Time PROTIME 17.5 09/02/2022 01:35 AM INR 1.5 09/02/2022 01:35 AM PTT: Lab Results Component Value Date/Time APTT 36.0 09/02/2022 01:35 AM Basic Metabolic Profile: Recent Labs 09/08/22 0546 09/09/22 0416 09/10/22 0435 NA 142 145* 148* K 5.0 3.9 3.5* CL 104 105 106 CO2 25 27 28 BUN 73* 74* 75* CREATININE 3.2* 2.8* 2.3* GLUCOSE 267* 280* 142* Liver Function: No results for input(s): PROT, LABALBU, ALT, AST, GGT, ALKPHOS, BILITOT in the last 72 hours. Magnesium: Lab Results Component Value Date/Time MG 1.9 09/05/2022 04:23 AM MG 1.8 09/05/2022 12:22 AM MG 1.9 09/04/2022 08:09 PM Phosphorus: Lab Results Component Value Date/Time PHOS 3.7 09/05/2022 04:23 AM PHOS 3.2 09/05/2022 12:22 AM PHOS 3.5 09/04/2022 08:09 PM Ionized Calcium: Lab Results Component Value Date/Time CAION 1.25 09/02/2022 04:10 AM Urinalysis: Lab Results Component Value Date/Time NITRU NEGATIVE 09/02/2022 01:37 AM COLORU Yellow 09/02/2022 01:37 AM PHUR 5.5 09/02/2022 01:37 AM WBCUA 0 TO 2 09/02/2022 01:37 AM RBCUA 20 TO 50 09/02/2022 01:37 AM MUCUS 1+ 09/02/2022 01:37 AM SPECGRAV 1.023 09/02/2022 01:37 AM LEUKOCYTESUR NEGATIVE 09/02/2022 01:37 AM UROBILINOGEN Normal 09/02/2022 01:37 AM BILIRUBINUR NEGATIVE 09/02/2022 01:37 AM GLUCOSEU 3+ 09/02/2022 01:37 AM KETUA LARGE 09/02/2022 01:37 AM HgBA1c: Lab Results Component Value Date/Time LABA1C 12.5 09/02/2022 06:03 AM TSH: No results found for: TSH Lactic Acid: No results found for: LACTA Troponin: No results for input(s): TROPONINI in the last 72 hours. Microbiology: Urine Culture: No components found for: CURINE Blood Culture: No components found for: CBLOOD, CFUNGUSBL Sputum Culture: No components found for: CSPUTUM Radiology/Imaging: CT HEAD WO CONTRAST Preliminary Result Study limited by motion artifact. No acute intracranial abnormality. Mild age-appropriate atrophy and small-vessel disease ischemic changes. Patient is intubated. CT CHEST ABDOMEN PELVIS WO CONTRAST Additional Contrast? None Preliminary Result 1. Drainage catheters are noted in the left groin/perineum without drainable fluid collection or new soft tissue gas. 2. Anasarca. 3. New bilateral pleural effusions with patchy ground-glass opacities in the left upper lobe, likely infectious or inflammatory in etiology. 4. No new acute findings in the abdomen or pelvis. XR CHEST PORTABLE Final Result Patchy airspace opacities most pronounced in the right mid to lower lung view, may be related to mild pulmonary edema versus pneumonia. Mild bilateral pleural effusions. US RENAL COMPLETE Final Result 1. Simple midpole left renal cyst measuring 2.7 cm. 2. No hydronephrosis. XR CHEST PORTABLE Final Result Decreased pulmonary edema Otherwise, stable chest XR ABDOMEN FOR NG/OG/NE TUBE PLACEMENT Final Result OG tube in satisfactory position. XR CHEST (SINGLE VIEW FRONTAL) Final Result Endotracheal tube in satisfactory position. Right IJ line unchanged. Mild congestive failure, stable. XR CHEST PORTABLE Final Result Right IJ catheter with tip at the inferior SVC. No pneumothorax. Findings of interstitial pulmonary edema. ASSESSMENT: Patient Active Problem List Diagnosis Date Noted Septic shock ([facility]) 09/06/2022 Acute respiratory failure with hypoxia ([facility]) 09/05/2022 Diabetic acidosis without coma ([facility]) 09/05/2022 GEMA (obstructive sleep apnea) 09/05/2022 VELMA (acute kidney injury) ([facility]) 09/03/2022 Necrotizing fasciitis ([facility]) 09/02/2022 Metabolic acidosis 09/02/2022 Hypernatremia 09/02/2022 Hypokalemia 09/02/2022 PLAN: PLAN/MEDICAL DECISION MAKING: Neurologic: Neuro intact Neuro checks per protocol Off sedation Cardiovascular: History of hypertension, on hydrochlorothiazide 25 mg daily at home: Hemodynamically stable MAP goal 65 Pulmonary: History of asthma and COPD, on albuterol at home Atrovent nebulization ordered due to tachycardia ABG ordered, follow-up Maintain oxygen sats >92%Maintain oxygen sats >92% Pulmonary toilet Vent Information Ventilator ID: [id number] Equipment Changed: HME Ventilator Initiate: Yes Vent Mode: AC/PRVC GI/Nutrition On tube feeds Ulcer Prophylaxis: Diet:Diet NPO ADULT TUBE FEEDING; Orogastric; Peptide Based High Protein; Continuous; 10; Yes; 10; Q 4 hours; 50; 30; Q 4 hours Renal/Fluid/Electrolyte Metabolic acidosis due to DKA. Had bicarb drip. Switched to D5/half normal. Off IVF VELMA with poor urine output, nephrology following, UOP improving on lasix drip I/O: In: 4888.2 [I.V.:2516.3; NG/GT:1573] Out: 8230 [Urine:8075; Drains:80] Monitor electrolytes, replace PRN ID Necrotizing fasciitis in the left groin S/p multiple debridements of necrotizing soft tissue infection of the left groin/perineum. S/p washout and closure 09/04 Infectious disease and surgery following WBC: Lab Results Component Value Date WBC 13.4 (H) 09/10/2022 Tmax: Temp (24hrs), Av.7 F (37.1 C), Min:98.1 F (36.7 C), Max:99.7 F (37.6 C) Antimicrobials: Meropenem and Diflucan. ID following Hematology: Recent Labs 09/08/22 0546 09/09/22 0416 09/10/22 0435 HGB 13.1 13.2 13.4 stable Endocrine: Type II diabetes: had insulin drip Per DKA protocol. Now on Lantus 30 BID. and MDSS glucose controlled - most recent BGL is Recent Labs 09/08/22 0546 09/09/22 0416 09/10/22 0435 GLUCOSE 267* 280* 142* DVT Prophylaxis Heparin Discharge Needs: PT, OT, and Case Management CODE STATUS: Full Code DISPOSITION: [x] To remain ICU: [] OK for out of ICU from Critical Care standpoint Fady Robles MD Internal Medicine Resident, PGY- 3 [facility]; [place], [place] 09/10/2022, 7:00 AM Attending Physician Statement I have discussed the care of Divina Amin, including pertinent history and exam findings with the resident. I have reviewed the william elements of all parts of the encounter with the resident. I have seen and examined the patient with the resident. I agree with the assessment and plan and status of the problem list as documented. I have seen the patient during my round today, chart reviewed, labs and medications reviewed overnight events noted. Patient is currently on Bumex 2 mg twice daily her sodium is up 148 BUN 75 creatinine is 2.3 urine output is good. She is on Precedex drip and she is on propofol small dose 10 mcg currently she is off propofol she continued to be restless and blinking of her eyes did not follow commands there is no tracking of eyes or respond to name reviewed encephalopathic likely metabolic especially with acidemia with sepsis and infection and on ventilatory support. ABG was 7.5 //36 on PRVC/20/400/5/20 5% Patient is started on free water continue to monitor urine output renal function electrolytes. Diuretic adjustment per nephrology. We will continue with Precedex and keep off propofol if possible. CT head was done yesterday possibly a small vascular changes. Will get neurology evaluation. Continue with mechanical ventilatory support. Ventilatory support and Spontaneous breathing trial. She did not tolerate spontaneous breathing trial today. Discussed with nursing staff, treatment and plan discussed. Discussed with respiratory therapist. Total critical care time caring for this patient with life threatening, unstable organ failure, including direct patient contact, management of life support systems, review of data including imaging and labs, discussions with other team members and physicians at least 35 Min so far today, excluding procedures. Please note that this chart was generated using voice recognition [employer] dictation software. Although every effort was made to ensure the accuracy of this automated freezer machine operator, some errors in freezer machine operator may have occurred. Kash Garcia MD 09/10/2022 2:02 PM Comprehensive Nutrition Assessment Type and Reason for Visit: Reassess Nutrition Recommendations/Plan: Continue Peptide Based High protein formula at 50 mL/hr. Monitor weight, labs and TF tolerance. Malnutrition Assessment: Malnutrition Status: Insufficient data (09/02/22 1509) Context: Acute Illness Findings of the 6 clinical characteristics of malnutrition: Energy Intake: Mild decrease in energy intake (Comment) Weight Loss: Unable to assess Body Fat Loss: Unable to assess Muscle Mass Loss: Unable to assess Fluid Accumulation: Mild Generalized Banking Services Advisor Strength: Not Performed Nutrition Assessment: Patient seen for follow up. Propofol at 6.5 mL/hr. Tube feed running at goal rate of 50 mL/hr, patient appears to be tolerating. Last BM 09/07. glucose 280-290, Na 145. Meds reviewed, include Bumex. Nutrition Related Findings: Labs/Meds reviewed. Wound Type: Surgical Incision (to left groin) Current Nutrition Intake & Therapies: Average Meal Intake: NPO Average Supplements Intake: NPO Current Tube Feeding (TF) Orders: Feeding Route: Orogastric Formula: Peptide Based High Protein Schedule: Continuous Feeding Regimen: 50 mL/hr Additives/Modulars: None Water Flushes: per MD Current TF & Flush Orders Provides: 50 mL/hr = 1200 kcals, 105 gm pro/day. Anthropometric Measures: Height: 5' 2 (157.5 cm) [place] Body Weight (IBW): 110 lbs (50 kg) Admission Body Weight: 297 lb 2.9 oz (134.8 kg) Current Body Weight: 297 lb 2.9 oz (134.8 kg), 270.2 % IBW. Weight Source: Bed Scale Current BMI (kg/m2): 54.3 BMI Categories: Obese Class 3 (BMI 40.0 or greater) Estimated Daily Nutrient Needs: Energy Requirements Based On: Kcal/kg Weight Used for Energy Requirements: [place] Energy (kcal/day): 2742-3159 kcals/day Weight Used for Protein Requirements: [place] Protein (g/day): 90-110 gm pro/day Method Used for Fluid Requirements: Other (Comment) Fluid (ml/day): per MD Nutrition Diagnosis: Increased nutrient needs related to (healing; necrotizing fascitis) as evidenced by wounds Inadequate oral intake related to impaired respiratory function as evidenced by NPO or clear liquid status due to medical condition, nutrition support - enteral nutrition Nutrition Interventions: Food and/or Nutrient Delivery: Continue Current Tube Feeding, Continue NPO Nutrition Education/Counseling: No recommendation at this time Coordination of Nutrition Care: Continue to monitor while inpatient Plan of Care discussed with: RN Goals: Previous Goal Met: Goal(s) Achieved Goals: Meet at least 75% of estimated needs, prior to discharge Nutrition Monitoring and Evaluation: Behavioral-Environmental Outcomes: None Identified Food/Nutrient Intake Outcomes: Enteral Nutrition Intake/Tolerance Physical Signs/Symptoms Outcomes: Biochemical Data, GI Status, Fluid Status or Edema, Hemodynamic Status, Weight, Skin, Nutrition Focused Physical Findings Discharge Planning: Too soon to determine Gail Doe RD Contact: [phone] Images from the original note were not included. [facility] Progress Note Divina Amin Date: 09/09/2022 LOS: 7 Reason for F/U : Necrotizing soft tissue infection Impression : Left perineal, thigh/gluteal necrotizing soft tissue infection status post surgical drainage 09/02/2022 Status post second look/I&D 09/03/2022 Status post irrigation and closure of left thigh and groin and buttock soft tissue defect 09/04/2022 Acute respiratory failure currently ventilator dependent Shock-resolved Diabetes mellitus with DKA currently on insulin drip Extreme obesity Acute kidney injury with unknown baseline creatinine COPD Recommendations: The patient continues on antimicrobial therapy with meropenem He was previously on linezolid which was discontinued 09/07/2022 Continue fluconazole which was added 09/07/2022 Continue local wound care Infection Control Recommendations: [place] precautions Discharge Planning: Estimated Length of IV antimicrobials: To be determined Patient will need Midline Catheter Insertion/ PICC line Insertion: No Patient will need: Home IV , Infusion Center, SNF, LTAC: Undetermined Patient willneed outpatient wound care: No Medical Decision making / Summary of Stay: Divina Amin is a 61 y.o.-year-old female who was initially admitted on 09/02/2022. Divina is a morbidly obese diabetic female with also a history of asthma/COPD and is currently intubated and the history is obtained from the daughter who is at bedside. It is my understanding that Divina has had a history of boils in her left groin area which have previously been drained in the past. She has certainly not needed to be hospitalized for these and she had been complaining of a boil/infection in her left groin for about a week at home. The patient ended up being started on Bactrim about a day ago but the daughter after getting home from work in the late afternoon yesterday found that Divina was out of it and was having difficulty ambulating going to the bathroom. She ended up calling EMS and the patient was taken to an outlying facility in [place] where work-up showed some leukocytosis, left groin soft tissue infection with some soft tissue gas and the patient was hypotensive. The patient received fluid resuscitation and was transferred here where blood sugars were elevated and the patient was started on the DKA protocol. The patient became more confused and was seen by the general surgery team started on antimicrobial therapy with meropenem and linezolid due to history of a penicillin allergy. The patient had an obvious wound on the left perineum/upper thigh that was protruding necrotic and fluctuant. The patient was taken to the operating room this morning underwent incision and drainage of her left thigh/left groin and buttocks abscess/soft tissue infection and there was a sinclair necrotizing tissue appreciated during the surgery. The margins included the left major labia majora, left upper thigh, left inferior groin, left perineum/gluteal area. The patient is currently in the intensive care unit and I was asked to evaluate and help with antibiotic choice. The patient was taken to the operating room 09/03/2022 and underwent second look/debridement procedure of the left groin/thigh area. The patient was taken to the operating room 09/04/2022 and underwent irrigation and closure of the left thigh groin buttock and soft tissue defect after the patient was found to have a clean wound base and there was placement of 2 flat JESSICA drains with multilayer closure. Current evaluation:09/09/2022 BP (!) 153/71 Pulse 57 Temp 99.9 F (37.7 C) Resp 24 Ht 5' 2 (1.575 m) Wt 297 lb 2.9 oz (134.8 kg) SpO2 95% BMI 54.35 kg/m Temperature Range: Temp: 99.9 F (37.7 C) Temp Av.5 F (37.5 C) Min: 98.6 F (37 C) Max: 99.9 F (37.7 C) The patient is seen and evaluated bedside she is on the ventilator at 30% FiO2 and 5 of PEEP. The patient remains on sedation with Precedex and propofol and is agitated moving her head from side to side and did not follow any commands for me. The care was discussed with the nurse at bedside Review of Systems Unable to perform ROS: Intubated Physical Examination : Physical Exam Constitutional: Appearance: She is well-developed. She is obese. Interventions: She is sedated and intubated. HENT: Head: Normocephalic and atraumatic. Cardiovascular: Rate and Rhythm: Regular rhythm. Heart sounds: Normal heart sounds. Pulmonary: Effort: Pulmonary effort is normal. She is intubated. Breath sounds: Normal breath sounds. Abdominal: General: Bowel sounds are normal. Palpations: Abdomen is soft. Musculoskeletal: Cervical back: Neck supple. Skin: General: Skin is warm and dry. Comments: There is a dressing in the perineal area which was not removed Laboratory data: I have independently reviewed the followinglabs: CBC with Differential: Recent Labs 09/08/22 0546 09/09/22 0416 WBC 12.7* 14.3* HGB 13.1 13.2 HCT 41.0 42.4 PLT 249 234 LYMPHOPCT 9* 22* MONOPCT 9* 6 BMP: Recent Labs 09/08/22 0546 09/09/22 0416 NA 142 145* K 5.0 3.9 CL 104 105 CO2 25 27 BUN 73* 74* CREATININE 3.2* 2.8* Hepatic Function Panel: No results for input(s): PROT, LABALBU, BILIDIR, IBILI, BILITOT, ALKPHOS, ALT, AST in the last 72 hours. No results found for: PROCAL Lab Results Component Value Date/Time CRP 489.6 09/02/2022 01:35 AM No results found for: SEDRATE No results found for: DDIMER No results found for: FERRITIN No results found for: LDH No results found for: FIBRINOGEN No results found for requested labs within last 30 days. No results found for: COVID19 No results for input(s): VANCOTROUGH in the last 72 hours. Imaging Studies: RETROPERITONEAL ULTRASOUND OF THE KIDNEYS AND URINARY BLADDER 09/03/2022 IMPRESSION: 1. Simple midpole left renal cyst measuring 2.7 cm. 2. No hydronephrosis. Specimen Collected: 09/03/22 12:52 EDT Last Resulted: 09/03/22 13:03 EDT Cultures: Culture, Blood 1 [[id number]] Collected: 09/02/22619 Order Status: Completed Specimen: Blood Updated: 09/07/22724 Specimen Description .BLOOD Special Requests R FA 5ML Culture NO GROWTH 5 DAYS Culture, Blood 2 [[id number]] Collected: 09/02/22624 Order Status: Completed Specimen: Blood Updated: 09/07/22724 Specimen Description .BLOOD Special Requests R HAND 3ML Culture NO GROWTH 5 DAYS Culture, Blood 1 [[id number]] Collected: 09/02/22 0104 Order Status: Completed Specimen: Blood Updated: 09/07/22 0205 Specimen Description .BLOOD Special Requests RJUG, 10ML Culture NO GROWTH 5 DAYS MRSA DNA Probe, Nasal [[id number]] Collected: 09/02/22 0600 Order Status: Completed Specimen: Nasal Updated: 09/03/22 1028 Specimen Description .NASAL SWAB MRSA, DNA, Nasal NEGATIVE Comment: NEGATIVE: MRSA DNA not detected by nucleic acid amplification. Results should be used as an adjunct to nosocomial control efforts to identify patients needing enhanced precautions. The test is not intended to identify patients with staphylococcal infections. Results should not be used to guide or monitor treatment for MRSA infections. Culture, Urine [[id number]] Collected: 09/02/22 0138 Order Status: Completed Specimen: Urine, clean catch Updated: 09/03/22 0832 Specimen Description .CLEAN CATCH URINE Culture NO GROWTH Medications: insulin glargine 45 Units SubCUTAneous BID hydrALAZINE 25 mg Oral 3 times per day amLODIPine 5 mg Oral Daily oxyCODONE 5 mg Oral Q6H PARoxetine 10 mg Per NG tube Daily fluconazole 200 mg IntraVENous Q24H insulin lispro 0-16 Units SubCUTAneous Q6H RT lansoprazole 30 mg Per G Tube QAM AC bumetanide 2 mg IntraVENous BID meropenem 1,000 mg IntraVENous Q8H sodium chloride flush 5-40 mL IntraVENous 2 times per day heparin (porcine) 5,000 Units SubCUTAneous 3 times per day ipratropium 0.5 mg Nebulization Q4H WA RT [facility] Choco Cox MD EDITD OFFICE: Thank you for allowing us to participate in the care of this patient. Please call with questions. This note is created with the assistance of a speech recognition program. While intending to generate a document that actually reflects the content of the visit, the document can still have some errors including those of syntax and sound a like substitutions which may escape proof reading. In such instances, actual meaning can be extrapolated by contextual diversion. Images from the original note were not included. PROGRESS NOTE PATIENT NAME: Divina Amin DATE: 09/09/2022 HD: # 7 Patient Active Problem List Diagnosis Necrotizing fasciitis (HCC) Metabolic acidosis Hypernatremia Hypokalemia VELMA (acute kidney injury) (HCC) Acute respiratory failure with hypoxia (HCC) Diabetic acidosis without coma (HCC) GEMA (obstructive sleep apnea) Septic shock (HCC) DIAGNOSIS AND PLAN Cont management per critical care team S/p multiple debridements of necrotizing soft tissue infection of the left groin/perineum. S/p washout and closure 09/04 Wound care: change ABD pads over groin incision BID Continue JESSICA drains to bulb suction, monitor and record output (50cc/24h) Abx per ID - floyd and diflucan Continue strict glucose control for healing purposes with goal <180 Monitor leukocytosis, increasing No further surgical interventions planned. Continuing to monitor wound and drain outputs SUBJECTIVE Remains intubated. Off pressor support. Minimal vent settings. Incision with sutures in place and without significant drainage. JESSICA drains with SS output to bulb suction. OBJECTIVE VITALS: Vitals: 09/09/22 0855 BP: Pulse: 57 Resp: 24 Temp: SpO2: 95% General: Intubated on the ventilator, no acute distress Pulmonary/Chest: Equal chest rise, intubated Cardiovascular: Regular rate and rhythm Abdomen: Soft, nontender, nondistended. Extremities: No cyanosis, clubbing, edema, or effusions. Skin: Left perineum/buttock with prolene sutures in place and no significant drainage and ABD dressings in place, skin surrounding the sutures is erythematous, no fluctuance, continues to be some induration, no sign of purulent drainage, JESSICA drains exiting left thigh with SS drainage LAB: CBC: Recent Labs 09/07/22 0549 09/08/22 0546 09/09/22 0416 WBC 10.4 12.7* 14.3* HGB 12.4 13.1 13.2 HCT 34.1* 41.0 42.4 MCV 94.7 94.5 96.8 PLT See Reflexed IPF Result 249 234 BMP: Recent Labs 09/07/22 0549 09/08/22 0546 09/09/22 0416 NA 136 142 145* K 5.2 5.0 3.9 CL 101 104 105 CO2 25 25 27 BUN 69* 73* 74* CREATININE 3.4* 3.2* 2.8* GLUCOSE 290* 267* 280* Renal Progress Note Patient : Divina Amin; 61 y.o. Location: [facility]13 Attending: Nader Smith MD Admit Date: 09/02/2022 Hospital Day: 7 Subjective: Patient seen and examined at bedside. No acute events overnight. Afebrile, vital signs stable, off of pressors. Intubated and sedated on propofol and Precedex with FiO2 at 30%. Continues to be agitated. Continued on Bumex 2 mg twice daily. Urine output 4.1 L over the last 24 hours. Net -2 L yesterday net +14 L since admission. Labs this a.m. show sodium 145, potassium 3.9, chloride 105, bicarb 27, BUN 74, creatinine 2.8, calcium 9.0. History reviewed: 61-year-old female came from outside facility with pain and redness involving involving her left buttock area and groin and [facility] 09-02-2022 Hospital Discharge instructions Manish Germain MD - 09/02/2022 10:13 AM EDT Images from the original note were not included. Discharge Instructions for General Surgery No lifting above 10Ibs for next 2 weeks. No soaking in bathtubs or submerging yourself in water for 4 weeks Resume activity as tolerated, No operating heavy equipment while using narcotics Wash incision gently with soap and water, pat dry. If steri-strips or surgical glue in place wash gently and leave in place until the glue or strips fall off. (Do not pull/tug) F/u in trauma/acute care surgery clinic in 1-2 weeks Call your doctor for the following: Chills Temperature greater than 101 Pain that is not tolerable despite taking pain medicine as ordered There is increased swelling, redness or warmth at surgical site There is increased drainage or bleeding from surgical site Depending on your injuries, your doctor may want you to follow a specific diet. Some pain medicine can cause constipation . To avoid this problem: Drink plenty of fluids. Eat foods high in fiber , such as: Whole grain cereals and bread Fruits and vegtables Legumes (eg, beans, lentils) If you are still having problems, talk to your doctor about using laxatives or stool softeners. General questions or concerns call [phone] for the General Surgery Clinic. If needed, the clinic fax number is [phone] - You were admitted to [facility] due to concerns of necrotizing fasciitis as well as DKA -DKA protocol was started and you were seen by surgical team initially but were transferred to ICU due to altered mentation and need for intubation -Debridement was done on 09/03/2022. Nephrology was also consulted for chronic kidney disease and VELMA with decreased sodium levels. You were put on fluids to correct sodium levels. -You have been started on Aldactone 25 mg oral daily by nephrology. -Norvasc and Bumex has been discontinued by nephrology. Please stop taking these 2 drugs. -Your home dose of insulin has been decreased to 20 units from 30 units considering lower blood glucose levels during your stay. - Your NPH has been changed to Lantus 20 units to be taken twice daily. Lantus is longer acting than NPH - Your Paroxetine dose has been increased from 10 mg to 20 mg -You will be discharged to fdc facility whenever the place is available - Get abdominal ultrasound within 1 week after going to SNF -You are medically stable to be discharged Azalea Welch RN - 09/17/2022 1:50 PM EDT Continuity of Care Form Patient Name: Divina Amin : 1960 Admit date: 09/02/2022 Discharge date: 09/20/22 Code Status Order: Full Code Advance Directives: Admitting Physician: Nader Smith MD PCP: CANDIDA BROWN Discharging Nurse: SUZANNE Tristan Discharging Hospital Unit/Room#: 0248/0248-01 Discharging Unit Emergency Contact: Extended Emergency Contact Information Primary Emergency Contact: MERCY FELIX Relation: Child Secondary Emergency Contact: Carlene Michael Relation: Child Past Surgical History: Past Surgical History: Procedure Laterality Date LEG SURGERY Left 09/03/2022 DEBRIDEMENT THIGH, GROIN, BUTTOCK performed by Janak Shaffer MD at [facility] OR LEG SURGERY Left 09/04/2022 DEBRIDEMENT THIGH, GROIN, BUTTOCK performed by Janak Shaffer MD at [facility] OR LEG SURGERY Left 09/02/2022 DEBRIDEMENT INCISION AND DRAINAGE OF LEFT THIGH, LEFT GROIN AND LEFT BUTTOCKS performed by Traci Maya MD at [facility] OR Immunization History: There is no immunization history on file for this patient. 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 Metabolic encephalopathy G93.41 Open wound T14.8XXA Ventilator dependent ([facility]) Z99.11 Morbid obesity ([facility]) E66.01 Isolation/Infection: Isolation No Isolation Patient Infection Status None to display Nurse Assessment: Last Vital Signs: BP (!) 118/51 Pulse 80 Temp 97.9 F (36.6 C) (Oral) Resp 18 Ht 5' 2 (1.575 m) Wt 282 lb 1.6 oz (128 kg) SpO2 95% BMI 51.60 kg/m Last documented pain score (0-10 scale): Pain Level: 0 Last Weight: Wt Readings from Last 1 Encounters: 09/16/22 282 lb 1.6 oz (128 kg) Mental Status: oriented, alert, and can be disoriented to time of day IV Access: - None Nursing Mobility/ADLs: Walking Dependent Transfer Dependent Bathing Dependent Dressing Dependent Toileting Assisted x2 bedpan; 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 Feeding Independent; 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 Med Delivery whole Wound Care Documentation and Therapy: Wound 09/03/22 Coccyx (Active) Wound Etiology Pressure Stage 1 09/14/22 1600 Dressing Status Clean;Dry;Intact 09/17/22 0115 Wound Cleansed Not Cleansed 09/17/22 011 Dressing/Treatment Other (comment) 09/17/22 011 Wound Assessment [place]/red;Superficial 09/17/22 011 Drainage Amount None 09/17/22 011 Drainage Description Serosanguinous 09/17/22114 [place]-wound Assessment Intact 09/17/22 011 Number of days: 14 Incision 09/02/22 Groin Left (Active) Dressing Status Clean;Dry;Intact 09/17/22114 Dressing Change Due 09/15/22 09/17/22114 Incision Cleansed Not Cleansed 09/17/22 011 Dressing/Treatment ABD pad 09/17/22114 Closure Sutures 09/16/22 1800 Margins Approximated 09/16/22 1800 Incision Assessment Erythema 09/16/22 1800 Drainage Amount Small 09/16/22 1800 Drainage Description Serous 09/16/22 1800 Odor Mild 09/16/22 1800 [place]assidy-incision Assessment Intact 09/16/22 1800 Number of days: 15 Elimination: Continence: Bowel: No Bladder: No Urinary Catheter: Insertion date: 09/13/22, used for location of wound and to promote healing Colostomy/Ileostomy/Ileal Conduit: No Rectal Tube-Stool Appearance: Loose Rectal Tube-Stool Color: Brown Rectal Tube-Stool Amount: Small Date of Last BM: 09/20/22 Intake/Output Summary (Last 24 hours) at 09/17/2022 1350 Last data filed at 09/17/2022 0433 Gross per 24 hour Intake 775.32 ml Output 1435 ml Net -659.68 ml I/O last 3 completed shifts: In: 2594 [P.O.:480; I.V.:1815; IV Piggyback:299] Out: 2950 [Urine:2395; Drains:45; Stool:510] Safety Concerns: At Risk for Falls Impairments/Disabilities: None Nutrition Therapy: Current Nutrition Therapy: - Oral Diet: Carb Control 4 carbs/meal (1800kcals/day) - Oral Nutrition Supplement: High Protein Pudding four times a day Routes of Feeding: Oral Liquids: No Restrictions Daily Fluid Restriction: no Last Modified Barium Swallow with Video (Video Swallowing Test): not done Treatments at the Time of Hospital Discharge: Respiratory Treatments: None Oxygen Therapy: is not on home oxygen therapy. 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 -Norvasc and Bumex has been discontinued by nephrology. Please stop taking these 2 drugs. -Your home dose of insulin has been decreased to 20 units from 30 units considering lower blood glucose levels during your stay Physician Certification: I certify the above information and transfer of Divina Amin is necessary for the continuing treatment of the diagnosis listed and that she requires Intermediate Facility for greater 30 days. Update Admission H&P: No change in H&P PHYSICIAN SIGNATURE: documented in this encounter [facility] 07-02-2021 Note PROCEDURE: XR HAND L T MIN 3V HISTORY: Dog bite of hand ; swelling of third and fourth digits COMPARISON: None. FINDINGS: BONES:No fracture, acute abnormality, or significant arthropathy. SOFT TISSUES:No visible soft tissue swelling. EFFUSION:None visible. OTHER: Negative. IMPRESSION: 1. No appreciable bone involvement. 2. No radiopaque foreign body. Electronically authenticated by: LIZZY VILLARREAL Date: 2021-07-02 16:45 The Evaluation note Diagnosis Necrotizing fasciitis (HCC)- Primary Necrotizing fasciitis Necrotizing fasciitis (HCC) Necrotizing fasciitis Diabetic ketoacidosis without coma associated with other specified diabetes mellitus (HCC) Acute respiratory failure with hypoxia (HCC) Acute respiratory failure Newly recognized heart murmur Undiagnosed cardiac murmurs Pain of upper abdomen Abdominal pain, other specified site Metabolic acidosis Acidosis Hypernatremia Hyperosmolality and/or hypernatremia Hypokalemia Hypopotassemia VELMA (acute kidney injury) (HCC) Acute kidney failure, unspecified Acute respiratory failure with hypoxia (HCC) Acute respiratory failure Diabetic acidosis without coma (HCC) Type II or unspecified type diabetes mellitus with ketoacidosis, not stated as uncontrolled GEMA (obstructive sleep apnea) Obstructive sleep apnea (adult) (pediatric) Septic shock (HCC) Bandemia Deborah gangrene 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 Metabolic encephalopathy Open wound Open wound(s) (multiple) of unspecified site(s), without mention of complication Ventilator dependent (HCC) Dependence on respirator, status Morbid obesity (HCC) Morbid obesity Pain of upper abdomen Abdominal pain, other specified site [facility] information available [facility] Work Phone: Evaluation note* Diagnosis Moderate persistent asthma with acute exacerbation in adult (CMS/HCC) documented in this encounter [facility] HealthcareEvaluation note* Diagnosis Type 2 diabetes mellitus with insulin therapy (CMS/HCC)- Primary Tobacco user Tobacco use disorder Essential hypertension (CMS/HCC) Unspecified essential hypertension Hypomagnesemia Disorders of magnesium metabolism Mixed hyperlipidemia (CMS/HCC) Mixed hyperlipidemia Anxiety and depression (CMS/HCC) Colon cancer screening Special screening for malignant neoplasms, colon Encounter for screening mammogram for malignant neoplasm of breast Sebaceous cyst Type 2 diabetes mellitus without complication, with long-term current use of insulin (CMS/HCC) Gastroesophageal reflux disease without esophagitis Esophageal reflux Chronic obstructive pulmonary disease, unspecified COPD type (CMS/HCC) Severe asthma, unspecified whether complicated, unspecified whether persistent ([facility]) senior care (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 of insulin (Z79.4) Encounter for subsequent annual wellness visit (AWV) in Medicare patient- Primary Essential hypertension ([facility] Unspecified essential hypertension Type 2 diabetes mellitus with insulin therapy ([facility]) Colon cancer screening Special screening for malignant neoplasms, colon Encounter for screening mammogram for malignant neoplasm of breast Type 2 diabetes mellitus with insulin therapy ([facility]/HCC)- Primary Type 2 diabetes mellitus with diabetic chronic kidney disease ([facility]/HCC) Chronic kidney disease, stage 3b (HCC) ([facility]) Morbid (severe) obesity due to excess calories ([facility]) Body mass index (BMI) 50.0-59.9, adult ([facility]) Tobacco user Tobacco use disorder Needs flu shot Need for prophylactic vaccination and inoculation against influenza Candidiasis of breast Moderate persistent asthma with acute exacerbation in adult ([facility]) Hypoglycemia Hypoglycemia, unspecified documented in this encounter [facility] HealthcareEvaluation note* Diagnosis Type 2 diabetes mellitus with insulin therapy ([facility])- Primary Tobacco user Tobacco use disorder Essential hypertension ([facility]) Unspecified essential hypertension Hypomagnesemia Disorders of magnesium metabolism Mixed hyperlipidemia ([facility] Mixed hyperlipidemia Anxiety and depression ([facility]) Colon cancer screening Special screening for malignant neoplasms, colon Encounter for screening mammogram for malignant neoplasm of breast Sebaceous cyst Type 2 diabetes mellitus without complication, with long-term current use of insulin ([facility]) Gastroesophageal reflux disease without esophagitis Esophageal reflux Chronic obstructive pulmonary disease, unspecified COPD type ([facility]) Severe asthma, unspecified whether complicated, unspecified whether persistent ([facility]) senior care (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 of insulin (Z79.4) Encounter for subsequent annual wellness visit (AWV) in Medicare patient- Primary Essential hypertension ([facility] Unspecified essential hypertension Type 2 diabetes mellitus with insulin therapy ([facility]) Colon cancer screening Special screening for malignant neoplasms, colon Encounter for screening mammogram for malignant neoplasm of breast Type 2 diabetes mellitus with insulin therapy ([facility])- Primary Type 2 diabetes mellitus with diabetic chronic kidney disease ([facility]) Chronic kidney disease, stage 3b (HCC) ([facility]) Morbid (severe) obesity due to excess calories ([facility]) Body mass index (BMI) 50.0-59.9, adult ([facility]) Tobacco user Tobacco use disorder Needs flu shot Need for prophylactic vaccination and inoculation against influenza Candidiasis of breast Moderate persistent asthma with acute exacerbation in adult ([facility]) Hypoglycemia Hypoglycemia, unspecified Candidiasis of breast documented in this encounter [facility]Evaluation note* Diagnosis Type 2 diabetes mellitus with insulin therapy ([facility])- Primary Tobacco user Tobacco use disorder Essential hypertension ([facility]) Unspecified essential hypertension Hypomagnesemia Disorders of magnesium metabolism Mixed hyperlipidemia ([facility] Mixed hyperlipidemia Anxiety and depression ([facility]) Colon cancer screening Special screening for malignant neoplasms, colon Encounter for screening mammogram for malignant neoplasm of breast Sebaceous cyst Type 2 diabetes mellitus without complication, with long-term current use of insulin ([facility]) Gastroesophageal reflux disease without esophagitis Esophageal reflux Chronic obstructive pulmonary disease, unspecified COPD type ([facility]) Severe asthma, unspecified whether complicated, unspecified whether persistent ([facility]) senior care (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 of insulin (Z79.4) Encounter for subsequent annual wellness visit (AWV) in Medicare patient- Primary Essential hypertension ([facility]) Unspecified essential hypertension Type 2 diabetes mellitus with insulin therapy ([facility]) Colon cancer screening Special screening for malignant neoplasms, colon Encounter for screening mammogram for malignant neoplasm of breast Type 2 diabetes mellitus with insulin therapy ([facility])- Primary Type 2 diabetes mellitus with diabetic chronic kidney disease ([facility]) Chronic kidney disease, stage 3b (HCC) ([facility]) Morbid (severe) obesity due to excess calories ([facility]) Body mass index (BMI) 50.0-59.9, adult ([facility]) Tobacco user Tobacco use disorder Needs flu shot Need for prophylactic vaccination and inoculation against influenza Candidiasis of breast Moderate persistent asthma with acute exacerbation in adult ([facility]) Hypoglycemia Hypoglycemia, unspecified Type 2 diabetes mellitus with insulin therapy ([facility]) Hypoglycemia Hypoglycemia, unspecified documented in this encounter [facility]* Diagnosis Type 2 diabetes mellitus with insulin therapy ([facility])- Primary Tobacco user Tobacco use disorder Essential hypertension ([facility]) Unspecified essential hypertension Hypomagnesemia Disorders of magnesium metabolism Mixed hyperlipidemia ([facility]) Mixed hyperlipidemia Anxiety and depression ([facility]) Colon cancer screening Special screening for malignant neoplasms, colon Encounter for screening mammogram for malignant neoplasm of breast Sebaceous cyst Type 2 diabetes mellitus without complication, with long-term current use of insulin ([facility]) Gastroesophageal reflux disease without esophagitis Esophageal reflux Chronic obstructive pulmonary disease, unspecified COPD type ([facility]) Severe asthma, unspecified whether complicated, unspecified whether persistent ([facility]) 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 (Z79.4) Encounter for subsequent annual wellness visit (AWV) in Medicare patient- Primary Essential hypertension ([facility] Unspecified essential hypertension Type 2 diabetes mellitus with insulin therapy ([facility]) Colon cancer screening Special screening for malignant neoplasms, colon Encounter for screening mammogram for malignant neoplasm of breast Type 2 diabetes mellitus with insulin therapy ([facility])- Primary Type 2 diabetes mellitus with diabetic chronic kidney disease ([facility]) Chronic kidney disease, stage 3b (HCC) ([facility]) Morbid (severe) obesity due to excess calories ([facility]) Body mass index (BMI) 50.0-59.9, adult ([facility]) Tobacco user Tobacco use disorder Needs flu shot Need for prophylactic vaccination and inoculation against influenza Candidiasis of breast Moderate persistent asthma with acute exacerbation in adult ([facility]) Hypoglycemia Hypoglycemia, unspecified Chronic obstructive pulmonary disease, unspecified COPD type ([facility]) Severe asthma, unspecified whether complicated, unspecified whether persistent ([facility]) Moderate persistent asthma with acute exacerbation in adult ([facility]) documented in this encounter [facility]* Diagnosis Type 2 diabetes mellitus without complication, with long-term current use of insulin ([facility]) documented in this encounter [facility]* Diagnosis Essential hypertension ([facility]specified essential hypertension documented in this encounter [facility]* Diagnosis Type 2 diabetes mellitus with insulin therapy ([facility])- Primary Tobacco user Tobacco use disorder Essential hypertension ([facility]) Unspecified essential hypertension Hypomagnesemia Disorders of magnesium metabolism Mixed hyperlipidemia ([facility] Mixed hyperlipidemia Anxiety and depression ([facility]) Colon cancer screening Special screening for malignant neoplasms, colon Encounter for screening mammogram for malignant neoplasm of breast Sebaceous cyst Type 2 diabetes mellitus without complication, with long-term current use of insulin ([facility]) Gastroesophageal reflux disease without esophagitis Esophageal reflux Chronic obstructive pulmonary disease, unspecified COPD type ([facility]) Severe asthma, unspecified whether complicated, unspecified whether persistent ([facility]) 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 (Z79.4) Encounter for subsequent annual wellness visit (AWV) in Medicare patient- Primary Essential hypertension (CMS/HCC) Unspecified essential hypertension Type 2 diabetes mellitus with insulin therapy (CMS/HCC) Colon cancer screening Special screening for malignant neoplasms, colon Encounter for screening mammogram for malignant neoplasm of breast Type 2 diabetes mellitus with insulin therapy (CMS/HCC)- Primary Type 2 diabetes mellitus with diabetic chronic kidney disease (CMS/HCC) Chronic kidney disease, stage 3b (HCC) (CMS/HCC) Morbid (severe) obesity due to excess calories (CMS/HCC) Body mass index (BMI) 50.0-59.9, adult ([facility]/HCC) Tobacco user Tobacco use disorder Needs flu shot Need for prophylactic vaccination and inoculation against influenza Candidiasis of breast Moderate persistent asthma with acute exacerbation in adult ([facility]) Hypoglycemia Hypoglycemia, unspecified Moderate persistent asthma with acute exacerbation in adult ([facility]) Chronic obstructive pulmonary disease, unspecified COPD type ([facility]) Severe asthma, unspecified whether complicated, unspecified whether persistent (CMS/HCC) documented in this encounter [facility]* Diagnosis Type 2 diabetes mellitus with insulin therapy ([facility]/HCC)- Primary Tobacco user Tobacco use disorder Essential hypertension ([facility]/HCC) Unspecified essential hypertension Hypomagnesemia Disorders of magnesium metabolism Mixed hyperlipidemia (CMS/HCC) Mixed hyperlipidemia Anxiety and depression ([facility]) Colon cancer screening Special screening for malignant neoplasms, colon Encounter for screening mammogram for malignant neoplasm of breast Sebaceous cyst Type 2 diabetes mellitus without complication, with long-term current use of insulin ([facility]/HCC) Gastroesophageal reflux disease without esophagitis Esophageal reflux Chronic obstructive pulmonary disease, unspecified COPD type ([facility]/HCC) Severe asthma, unspecified whether complicated, unspecified whether persistent ([facility]/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 (Z79.4) Encounter for subsequent annual wellness visit (AWV) in Medicare patient- Primary Essential hypertension ([facility]/HCC) Unspecified essential hypertension Type 2 diabetes mellitus with insulin therapy ([facility]/HCC) Colon cancer screening Special screening for malignant neoplasms, colon Encounter for screening mammogram for malignant neoplasm of breast Type 2 diabetes mellitus with insulin therapy ([facility]/HCC)- Primary Type 2 diabetes mellitus with diabetic chronic kidney disease ([facility]/HCC) Chronic kidney disease, stage 3b (HCC) ([facility]) Morbid (severe) obesity due to excess calories ([facility]/HCC) Body mass index (BMI) 50.0-59.9, adult ([facility]) Tobacco user Tobacco use disorder Needs flu shot Need for prophylactic vaccination and inoculation against influenza Candidiasis of breast Moderate persistent asthma with acute exacerbation in adult ([facility]) Hypoglycemia Hypoglycemia, unspecified Essential hypertension ([facility] Unspecified essential hypertension documented in this encounter [facility]* Diagnosis Type 2 diabetes mellitus with insulin therapy ([facility])- Primary Tobacco user Tobacco use disorder Essential hypertension ([facility]/HCC) Unspecified essential hypertension Hypomagnesemia Disorders of magnesium metabolism Mixed hyperlipidemia ([facility]/HCC) Mixed hyperlipidemia Anxiety and depression ([facility]) Colon cancer screening Special screening for malignant neoplasms, colon Encounter for screening mammogram for malignant neoplasm of breast Sebaceous cyst Type 2 diabetes mellitus without complication, with long-term current use of insulin ([facility]) Gastroesophageal reflux disease without esophagitis Esophageal reflux Chronic obstructive pulmonary disease, unspecified COPD type ([facility]) Severe asthma, unspecified whether complicated, unspecified whether persistent ([facility]) 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 (Z79.4) Encounter for subsequent annual wellness visit (AWV) in Medicare patient- Primary Essential hypertension ([facility] Unspecified essential hypertension Type 2 diabetes mellitus with insulin therapy ([facility]) Colon cancer screening Special screening for malignant neoplasms, colon Encounter for screening mammogram for malignant neoplasm of breast Type 2 diabetes mellitus with insulin therapy ([facility])- Primary Type 2 diabetes mellitus with diabetic chronic kidney disease ([facility]) Chronic kidney disease, stage 3b (HCC) ([facility]) Morbid (severe) obesity due to excess calories ([facility]) Body mass index (BMI) 50.0-59.9, adult ([facility]) Tobacco user Tobacco use disorder Needs flu shot Need for prophylactic vaccination and inoculation against influenza Candidiasis of breast Moderate persistent asthma with acute exacerbation in adult ([facility]) Hypoglycemia Hypoglycemia, unspecified Cutaneous abscess of abdominal wall- Primary documented in this encounter [facility] HealthcareEvaluation note* Diagnosis Type 2 diabetes mellitus with insulin therapy ([facility])- Primary Tobacco user Tobacco use disorder Essential hypertension ([facility]) Unspecified essential hypertension Hypomagnesemia Disorders of magnesium metabolism Mixed hyperlipidemia ([facility]/HCC) Mixed hyperlipidemia Anxiety and depression ([facility]) Colon cancer screening Special screening for malignant neoplasms, colon Encounter for screening mammogram for malignant neoplasm of breast Sebaceous cyst Type 2 diabetes mellitus without complication, with long-term current use of insulin ([facility]) Gastroesophageal reflux disease without esophagitis Esophageal reflux Chronic obstructive pulmonary disease, unspecified COPD type ([facility]) Severe asthma, unspecified whether complicated, unspecified whether persistent ([facility]) 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 (Z79.4) Encounter for subsequent annual wellness visit (AWV) in Medicare patient- Primary Essential hypertension ([facility]) Unspecified essential hypertension Type 2 diabetes mellitus with insulin therapy ([facility]) Colon cancer screening Special screening for malignant neoplasms, colon Encounter for screening mammogram for malignant neoplasm of breast Type 2 diabetes mellitus with insulin therapy ([facility])- Primary Type 2 diabetes mellitus with diabetic chronic kidney disease ([facility]) Chronic kidney disease, stage 3b (HCC) ([facility]) Morbid (severe) obesity due to excess calories ([facility]) Body mass index (BMI) 50.0-59.9, adult ([facility]) Tobacco user Tobacco use disorder Needs flu shot Need for prophylactic vaccination and inoculation against influenza Candidiasis of breast Moderate persistent asthma with acute exacerbation in adult ([facility]) Hypoglycemia Hypoglycemia, unspecified Type 2 diabetes mellitus without complication, with long-term current use of insulin ([facility] Essential hypertension ([facility]) [facility]specified essential hypertension documented in this encounter [facility] HealthcareEvaluation note* Diagnosis Type 2 diabetes mellitus with insulin therapy ([facility])- Primary Tobacco user Tobacco use disorder Essential hypertension ([facility] Unspecified essential hypertension Hypomagnesemia Disorders of magnesium metabolism Mixed hyperlipidemia ([facility] Mixed hyperlipidemia Anxiety and depression ([facility]) Colon cancer screening Special screening for malignant neoplasms, colon Encounter for screening mammogram for malignant neoplasm of breast Sebaceous cyst Type 2 diabetes mellitus without complication, with long-term current use of insulin ([facility]) Gastroesophageal reflux disease without esophagitis Esophageal reflux Chronic obstructive pulmonary disease, unspecified COPD type ([facility]) Severe asthma, unspecified whether complicated, unspecified whether persistent ([facility]) senior care (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 of insulin (Z79.4) Encounter for subsequent annual wellness visit (AWV) in Medicare patient- Primary Essential hypertension ([facility]) Unspecified essential hypertension Type 2 diabetes mellitus with insulin therapy ([facility]) Colon cancer screening Special screening for malignant neoplasms, colon Encounter for screening mammogram for malignant neoplasm of breast Type 2 diabetes mellitus with insulin therapy ([facility])- Primary Type 2 diabetes mellitus with diabetic chronic kidney disease ([facility]/HCC) Chronic kidney disease, stage 3b (HCC) ([facility]) Morbid (severe) obesity due to excess calories ([facility]) Body mass index (BMI) 50.0-59.9, adult ([facility]) Tobacco user Tobacco use disorder Needs flu shot Need for prophylactic vaccination and inoculation against influenza Candidiasis of breast Moderate persistent asthma with acute exacerbation in adult ([facility]) Hypoglycemia Hypoglycemia, unspecified Anxiety and depression ([facility]) Moderate persistent asthma with acute exacerbation in adult ([facility]) documented in [facility] encounter [facility] HealthcareEvaluation note* Diagnosis Type 2 diabetes mellitus with insulin therapy ([facility])- Primary Tobacco user Tobacco use disorder Essential hypertension ([facility]) Unspecified essential hypertension Hypomagnesemia Disorders of magnesium metabolism Mixed hyperlipidemia ([facility] Mixed hyperlipidemia Anxiety and depression ([facility]) Colon cancer screening Special screening for malignant neoplasms, colon Encounter for screening mammogram for malignant neoplasm of breast Sebaceous cyst Type 2 diabetes mellitus without complication, with long-term current use of insulin ([facility]) Gastroesophageal reflux disease without esophagitis Esophageal reflux Chronic obstructive pulmonary disease, unspecified COPD type ([facility]) Severe asthma, unspecified whether complicated, unspecified whether persistent ([facility]) senior care (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 of insulin (Z79.4) Encounter for subsequent annual wellness visit (AWV) in Medicare patient- Primary Essential hypertension ([facility] Unspecified essential hypertension Type 2 diabetes mellitus with insulin therapy ([facility]) Colon cancer screening Special screening for malignant neoplasms, colon Encounter for screening mammogram for malignant neoplasm of breast Type 2 diabetes mellitus with insulin therapy ([facility])- Primary Type 2 diabetes mellitus with diabetic chronic kidney disease ([facility]/HCC) Chronic kidney disease, stage 3b (HCC) ([facility]) Morbid (severe) obesity due to excess calories ([facility]) Body mass index (BMI) 50.0-59.9, adult ([facility]) Tobacco user Tobacco use disorder Needs flu shot Need for prophylactic vaccination and inoculation against influenza Candidiasis of breast Moderate persistent asthma with acute exacerbation in adult ([facility]) Hypoglycemia Hypoglycemia, unspecified Type 2 diabetes mellitus without complication, with long-term current use of insulin ([facility]) documented in [facility] encounter [facility] HealthcareEvaluation note* Diagnosis Type 2 diabetes mellitus with insulin therapy ([facility])- Primary Tobacco user Tobacco use disorder Essential hypertension ([facility]/HCC) Unspecified essential hypertension Hypomagnesemia Disorders of magnesium metabolism Mixed hyperlipidemia ([facility]/HCC) Mixed hyperlipidemia Anxiety and depression ([facility]) Colon cancer screening Special screening for malignant neoplasms, colon Encounter for screening mammogram for malignant neoplasm of breast Sebaceous cyst Type 2 diabetes mellitus without complication, with long-term current use of insulin Gastroesophageal reflux disease without esophagitis Esophageal reflux Chronic obstructive pulmonary disease, unspecified COPD type ([facility]) Severe asthma, unspecified whether complicated, unspecified whether persistent ([facility]/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 (Z79.4) Encounter for subsequent annual wellness visit (AWV) in Medicare patient- Primary Essential hypertension ([facility]) Unspecified essential hypertension Type 2 diabetes mellitus with insulin therapy ([facility]) Colon cancer screening Special screening for malignant neoplasms, colon Encounter for screening mammogram for malignant neoplasm of breast Type 2 diabetes mellitus with insulin therapy ([facility])- Primary Type 2 diabetes mellitus with diabetic chronic kidney disease ([facility]) Chronic kidney disease, stage 3b (HCC) ([facility]) Morbid (severe) obesity due to excess calories ([facility]) Body mass index (BMI) 50.0-59.9, adult ([facility]) Tobacco user Tobacco use disorder Needs flu shot Need for prophylactic vaccination and inoculation against influenza Candidiasis of breast Moderate persistent asthma with acute exacerbation in adult ([facility]) Hypoglycemia Hypoglycemia, unspecified Essential hypertension ([facility]) [facility]specified essential hypertension documented in this encounter [facility]Evaluation note* Diagnosis Type 2 diabetes mellitus with insulin therapy ([facility])- Primary Tobacco user Tobacco use disorder Essential hypertension ([facility]) Unspecified essential hypertension Hypomagnesemia Disorders of magnesium metabolism Mixed hyperlipidemia ([facility]/HCC) Mixed hyperlipidemia Anxiety and depression ([facility]) Colon cancer screening Special screening for malignant neoplasms, colon Encounter for screening mammogram for malignant neoplasm of breast Sebaceous cyst Type 2 diabetes mellitus without complication, with long-term current use of insulin Gastroesophageal reflux disease without esophagitis Esophageal reflux Chronic obstructive pulmonary disease, unspecified COPD type ([facility]) Severe asthma, unspecified whether complicated, unspecified whether persistent ([facility]) senior care (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 of insulin (Z79.4) Encounter for subsequent annual wellness visit (AWV) in Medicare patient- Primary Essential hypertension ([facility]) Unspecified essential hypertension Type 2 diabetes mellitus with insulin therapy ([facility]) Colon cancer screening Special screening for malignant neoplasms, colon Encounter for screening mammogram for malignant neoplasm of breast Type 2 diabetes mellitus with insulin therapy ([facility])- Primary Type 2 diabetes mellitus with diabetic chronic kidney disease ([facility]) Chronic kidney disease, stage 3b (HCC) ([facility]) Morbid (severe) obesity due to excess calories ([facility]) Body mass index (BMI) 50.0-59.9, adult ([facility]) Tobacco user Tobacco use disorder Needs flu shot Need for prophylactic vaccination and inoculation against influenza Candidiasis of breast Moderate persistent asthma with acute exacerbation in adult ([facility]) Hypoglycemia Hypoglycemia, unspecified Moderate persistent asthma with acute exacerbation in adult ([facility]) documented in this encounter [facility] HealthcareEvaluation note* Diagnosis Type 2 diabetes mellitus with insulin therapy ([facility])- Primary Tobacco user Tobacco use disorder Essential hypertension ([facility]) Unspecified essential hypertension Hypomagnesemia Disorders of magnesium metabolism Mixed hyperlipidemia ([facility] Mixed hyperlipidemia Anxiety and depression ([facility]) Colon cancer screening Special screening for malignant neoplasms, colon Encounter for screening mammogram for malignant neoplasm of breast Sebaceous cyst Type 2 diabetes mellitus without complication, with long-term current use of insulin Gastroesophageal reflux disease without esophagitis Esophageal reflux Chronic obstructive pulmonary disease, unspecified COPD type ([facility]) Severe asthma, unspecified whether complicated, unspecified whether persistent ([facility]) senior care (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 of insulin (Z79.4) Encounter for subsequent annual wellness visit (AWV) in Medicare patient- Primary Essential hypertension ([facility]) Unspecified essential hypertension Type 2 diabetes mellitus with insulin therapy ([facility]) Colon cancer screening Special screening for malignant neoplasms, colon Encounter for screening mammogram for malignant neoplasm of breast Type 2 diabetes mellitus with insulin therapy ([facility])- Primary Type 2 diabetes mellitus with diabetic chronic kidney disease ([facility]) Chronic kidney disease, stage 3b (HCC) ([facility]) Morbid (severe) obesity due to excess calories ([facility]) Body mass index (BMI) 50.0-59.9, adult ([facility]) Tobacco user Tobacco use disorder Needs flu shot Need for prophylactic vaccination and inoculation against influenza Candidiasis of breast Moderate persistent asthma with acute exacerbation in adult ([facility]) Hypoglycemia Hypoglycemia, unspecified Type 2 diabetes mellitus without complication, with long-term current use of insulin Essential hypertension (CMS/HCC) Unspecified essential hypertension documented in this encounter [facility] HealthcareEvaluation note* Diagnosis Type 2 diabetes mellitus with insulin therapy ([facility]/HCC)- Primary Tobacco user Tobacco use disorder Essential hypertension (CMS/HCC) Unspecified essential hypertension Hypomagnesemia Disorders of magnesium metabolism Mixed hyperlipidemia (CMS/HCC) Mixed hyperlipidemia Anxiety and depression (CMS/HCC) Colon cancer screening Special screening for malignant neoplasms, colon Encounter for screening mammogram for malignant neoplasm of breast Sebaceous cyst Type 2 diabetes mellitus without complication, with long-term current use of insulin Gastroesophageal reflux disease without esophagitis Esophageal reflux Chronic obstructive pulmonary disease, unspecified COPD type (CMS/HCC) Severe asthma, unspecified whether complicated, unspecified whether persistent ([facility]) 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 (Z79.4) Encounter for subsequent annual wellness visit (AWV) in Medicare patient- Primary Essential hypertension ([facility]/HCC) Unspecified essential hypertension Type 2 diabetes mellitus with insulin therapy ([facility]/HCC) Colon cancer screening Special screening for malignant neoplasms, colon Encounter for screening mammogram for malignant neoplasm of breast Type 2 diabetes mellitus with insulin therapy ([facility]/HCC)- Primary Type 2 diabetes mellitus with diabetic chronic kidney disease ([facility]/HCC) Chronic kidney disease, stage 3b (HCC) ([facility]/HCC) Morbid (severe) obesity due to excess calories ([facility]) Body mass index (BMI) 50.0-59.9, adult ([facility]) Tobacco user Tobacco use disorder Needs flu shot Need for prophylactic vaccination and inoculation against influenza Candidiasis of breast Moderate persistent asthma with acute exacerbation in adult ([facility]) Hypoglycemia Hypoglycemia, unspecified Essential hypertension ([facility]/HCC)- Primary Unspecified essential hypertension Chronic kidney disease, stage 3b (HCC) (CMS/HCC) Type 2 diabetes mellitus with insulin therapy (CMS/HCC) Mixed hyperlipidemia (CMS/HCC) Mixed hyperlipidemia Hypomagnesemia Disorders of magnesium metabolism documented in this encounter [facility] HealthcareEvaluation note* Diagnosis Type 2 diabetes mellitus with insulin therapy ([facility]/HCC)- Primary Tobacco user Tobacco use disorder Essential hypertension (CMS/HCC) Unspecified essential hypertension Hypomagnesemia Disorders of magnesium metabolism Mixed hyperlipidemia (CMS/HCC) Mixed hyperlipidemia Anxiety and depression ([facility]/HCC) Colon cancer screening Special screening for malignant neoplasms, colon Encounter for screening mammogram for malignant neoplasm of breast Sebaceous cyst Type 2 diabetes mellitus without complication, with long-term current use of insulin Gastroesophageal reflux disease without esophagitis Esophageal reflux Chronic obstructive pulmonary disease, unspecified COPD type ([facility]) Severe asthma, unspecified whether complicated, unspecified whether persistent ([facility]) senior care (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 of insulin (Z79.4) Encounter for subsequent annual wellness visit (AWV) in Medicare patient- Primary Essential hypertension ([facility]) Unspecified essential hypertension Type 2 diabetes mellitus with insulin therapy ([facility]) Colon cancer screening Special screening for malignant neoplasms, colon Encounter for screening mammogram for malignant neoplasm of breast Type 2 diabetes mellitus with insulin therapy ([facility])- Primary Type 2 diabetes mellitus with diabetic chronic kidney disease ([facility]) Chronic kidney disease, stage 3b (HCC) ([facility]) Morbid (severe) obesity due to excess calories ([facility]) Body mass index (BMI) 50.0-59.9, adult ([facility]) Tobacco user Tobacco use disorder Needs flu shot Need for prophylactic vaccination and inoculation against influenza Candidiasis of breast Moderate persistent asthma with acute exacerbation in adult ([facility]) Hypoglycemia Hypoglycemia, unspecified Gastroesophageal reflux disease without esophagitis Esophageal reflux Type 2 diabetes mellitus without complication, with long-term current use of insulin documented in this encounter [facility] HealthcareEvaluation note* Diagnosis Necrotizing soft tissue infection- Primary Necrotizing soft tissue infection Congestive heart failure, unspecified HF chronicity, unspecified heart failure type (HCC) Necrotizing fasciitis (HCC) Necrotizing fasciitis Encounter for palliative care Goals of care, counseling/discussion Other specified counseling Sacral osteomyelitis (HCC) Unspecified osteomyelitis, other specified site Leukemoid reaction CRP elevated Elevated C-reactive protein (CRP) documented in this encounter [facility] Summary Purpose Family History No Family History Records FoundNo Family History Records FoundNo Family History Records FoundNo Family History Records FoundNo Family History Records FoundNo Family History Records Found Advance Directives No Advanced Directives Records FoundLatest Code Status on File Code Status Date Activated Date Inactivated Comments Full Code 09/02/2022 5:05 AM Advance Directive Response Recorded Date/ Time Advance Directives No October 3:18pm Date Activated Date Inactivated Comments 07/19/2024 7:24 PM Date Activated Date Inactivated Comments 09/02/2022 5:05 AM 09/20/2022 6:07 PM Reason for Referral Specialty Diagnoses / Procedures Referred By Talia de leon Referred To Contact Radiology Diagnoses Pain of upper abdomen Procedures US ABDOMEN COMPLETE Manish Germain MD [facility], [address] [place] [address] Referral ID Status Reason Start Date Expiration Date Visits Re quested Visits Authorized [id number] Open 09/20/2022 09/20/2023 1 1 Specialty Diagnoses / Procedures Referred By Contac t Referred To Contact Diagnoses Newly recognized heart murmur Procedures Transthoracic echocardiogram (TTE) complete with contrast, bubble, strain, and 3D PRN GA ECHO TTHRC R-T 2D W/WOM-MODE COMPL SPEC&COLR D GA TTE W OR WO FOL WCLEXIE WHITMAN Pragya, MD [address] [place] [address] Referral ID Status Reason Start Date Expiration Date Visits Re quested Visits Authorized [id number] Open 09/19/2022 09/19/2023 1 1 Additional Source Comments INFORMATION SOURCE (unrecogn ized section and content) DATE CREATED AUTHOR 05/09/2022 [facility] DATE CREATED AUTHOR AUTHOR'S ORGANIZ ATION 02/01/2023 [facility] DATE CREATED AUTHOR AUTHOR'S ORGANIZ ATION 12/08/2023 [facility] EPIC DATE CREATED AUTHOR AUTHOR'S ORGANIZ ATION 07/21/2024 [facility] DATE CREATED AUTHOR AUTHOR'S ORGANIZ ATION 08/23/2024 [facility] DATE CREATED AUTHOR AUTHOR'S ORGANIZ ATION 09/20/2024 [facility] Reason for Visit (unrecogniz ed section and content) Reason Comments Altered Mental Status Specialty Diagnoses / Procedures Referred By Contac t Referred To Contact Diagnoses Necrotizing fasciitis (HCC) Nader Smith MD [address] [address] [facility] [id number] [place] [address] Referral ID Status Reason Start Date Expiration Date Visits Re quested Visits Authorized [id number] 1 1 Reason Comments Med Refill Reason Comments Med Change Request Reason Comments Wound Check Specialty Diagnoses / Procedures Referred By Talia de leon Referred To Contact Diagnoses Necrotizing soft tissue infection Alisia Cuellar MD [address] [place] [address] Phone: tel: fax: [facility] [id number] [place] [address] Referral ID Status Reason Start Date Expiration Date Visits Re quested Visits Authorized [id number] 1 1 Ordered Prescriptions (unrec ognized section and content) Prescription Sig Dispensed Refills Start Date End Da te PARoxetine (PAXIL) 20 MG tablet Take 1 tablet by mouth daily 30 tablet 3 09/21/2022 insulin glargine (LANTUS SOLOSTAR) 100 UNIT/ML injection pen Inject 20 Units into the skin 2 times daily 5 Adjustable Dose Pre-filled Pen Syringe 3 09/20/2022 potassium chloride (KLOR-CON M) 20 MEQ extended release tablet Take 1 tablet by mouth daily 20 tablet 1 09/19/2022 psyllium (METAMUCIL) 58.12 % PACK packet Take 1 packet by mouth daily 2 packet 0 09/19/2022 lactobacillus (CULTURELLE) capsule Take 1 capsule by mouth 2 times daily (with meals) 20 capsule 0 09/19/2022 meclizine (ANTIVERT) 12.5 MG tablet Take 1 tablet by mouth in the morning, at noon, and at bedtime for 10 days 30 tablet 0 09/19/2022 09/29/2022 spironolactone (ALDACTONE) 25 MG tablet Take 1 tablet by mouth daily 30 tablet 3 09/18/2022 miconazole (MICOTIN) 2 % powder Apply topically 2 times daily. 45 g 1 09/17/2022 miconazole (MICOTIN) 2 % cream Apply topically 2 times daily. 14 g 0 09/17/2022 insulin NPH (HUMULIN N;NOVOLIN N) 100 UNIT/ML injection vial Inject 20 Units into the skin in the morning and 20 Units in the evening. 10 mL 3 09/17/2022 09/20/2022 Prescription Sig Dispense Quantity Refills Last Filled Start Date End Date ibuprofen (ADVIL;MOTRIN) 600 MG tablet Take 1 tablet by mouth every 6 hours as needed for Fever 07/30/2024 PARoxetine (PAXIL) 20 MG tablet Take 1 tablet by mouth daily 07/30/2024 insulin glargine (LANTUS SOLOSTAR) 100 UNIT/ML injection pen Inject 20 Units into the skin 2 times daily 07/30/2024 oxyCODONE (ROXICODONE) 5 MG immediate release tabletIndications :Necrotizing fasciitis (HCC) Take 1 tablet by mouth every 6 hours as needed for Pain for up to 3 days. Max Daily Amount: 20 mg 07/30/2024 08/03/19 meropenem (MERREM) infusion Infuse 1,000 mg intravenously in the morning and 1,000 mg at noon and 1,000 mg in the evening. Till 08/28/24 ( choice of meropenem due to PNC allergy ) - cbc diff creat weekly - Compound per protocol.. 07/30/2024 08/29/19 25 sennosides-docusa te sodium (SENOKOT-S) 8.6-50 MG tablet Take 2 tablets by mouth in the morning and at bedtime 07/30/2024 polyethylene glycol (GLYCOLAX) 17 g packet Take 1 packet by mouth daily 07/31/2024 08/31/19 insulin lispro (HUMALOG,ADMELOG) 100 UNIT/ML SOLN injection vial Inject 0-16 Units into the skin 3 times daily (before meals) 07/30/2024 gabapentin (NEURONTIN) 300 MG capsule Take 1 capsule by mouth every 8 hours for 14 days. 07/30/2024 08/14/19 enoxaparin Sodium (LOVENOX) 30 MG/0.3ML injection Inject 0.3 mLs into the skin 2 times daily 07/30/2024 oxyCODONE (ROXICODONE) 5 MG immediate release tabletIndications :Necrotizing fasciitis (HCC) Take 1 tablet by mouth every 6 hours as needed for Pain for up to 3 days. Max Daily Amount: 20 mg 07/30/2024 07/31/19 meropenem (MERREM) infusion Infuse 1,000 mg intravenously in the morning and 1,000 mg at noon and 1,000 mg in the evening. Till 08/28/24 ( choice of meropenem due to PNC allergy ) - cbc diff creat weekly - Compound per protocol.. 87 g 07/30/2024 07/31/19 ibuprofen (ADVIL;MOTRIN) 600 MG tablet Take 1 tablet by mouth every 6 hours as needed for Fever 120 tablet 3 07/30/2024 07/31/19 25 Scheduled Active and Recently Administ ered Medications (unrecognized section and content) Medication Order 09/18/2022 09/19/2022 09/20/2022 heparin (porcine) injection 5,000 Units 5,000 Units, SubCUTAneous, EVERY 8 HOURS SCHEDULED (3 times per day), First dose on Mon09/02/22 at 0600, Until Discontinued, Give once cleared from surgery for AC 0524 (Given - Provider: Wero Terrazas RN)1502 (Given - Provider: Azalea Welch RN)2146 (Given - Provider: Barbara Veliz RN) 0600 (Given - Provider: Barbara Veliz RN)1343 (Given - Provider: Azalea Welch RN) 0014 (Given - Provider: Jose Alfredo Cochran RN)0648 (Given - Provider: Jose Alfredo Cochran RN)1540 (Not Given - Provider: Azalea Welch RN - Reason: Patient/family refused)2200 (Due) hydrALAZINE (APRESOLINE) tablet 25 mg 25 mg, Oral, EVERY 8 HOURS SCHEDULED (3 times per day), First dose on Mon09/09/22 at 0800, Until Discontinued 0524 (Given - Provider: Wero Terrazas RN)1501 (Given - Provider: Azalea Welch RN)2146 (Given - Provider: Barbara Veliz RN) 0605 (Given - Provider: Barbara Veliz RN)1343 (Given - Provider: Azalea Welch RN) 0014 (Given - Provider: Jose Alfredo Cochran RN)0648 (Given - Provider: Jose Alfredo Cochran RN)1523 (Given - Provider: Azalea Welch RN)2200 (Due) insulin glargine (LANTUS) injection vial 20 Units 20 Units, SubCUTAneous, 2 TIMES DAILY, First dose (after last modification) on Mon09/17/22 at 2100, Until Discontinued 0818 (Not Given - Provider: Azalea Welch RN - Reason: Order parameters not met)2147 (Given - Provider: Barbara Veliz RN) 0823 (Not Given - Provider: Azalea Welch RN - Reason: Other - Comment: BS 105) 0104 (Not Given - Provider: Jose Alfredo Cochran RN - Reason: Patient/family refused)0904 (Not Given - Provider: Azalea Welch RN - Reason: Patient/family refused - Comment: BS 133)2100 (Due) insulin lispro (HUMALOG) injection vial 0-16 Units 0-16 Units, SubCUTAneous, 4 TIMES DAILY BEFORE MEALS & NIGHTLY, First dose (after last modification) on 09/17/22 at 0700, Until Discontinued, High Dose Corrective Algorithm Glucose: Dose: 70-199 No Insulin 200-249 4 Units 250-299 8 Units 300-349 12 Units Over 349 16 Units and notify physician 0635 (Not Given - Provider: Wero Terrazas RN - Reason: Order parameters not met - Comment: blood sugar 117mg/dl)1233 (Not Given - Provider: Azalea Welch RN - Reason: Order parameters not met - Comment: BS 172)1715 (Not Given - Provider: Azalea Welch RN - Reason: Order parameters not met)2117 (Not Given - Provider: Barbara Veliz RN - Reason: Order parameters not met) 0605 (Not Given - Provider: Barbara Veliz RN - Reason: Order parameters not met)1212 (Not Given - Provider: Azalea Welch RN - Reason: Order parameters not met)1653 (Not Given - Provider: Azalea Welch RN - Reason: Order parameters not met) 0104 (Not Given - Provider: Jose Alfredo Cochran RN - Reason: Order parameters not met)0753 (Not Given - Provider: Azalea Welch RN - Reason: Order parameters not met)1137 (Not Given - Provider: Azalea Welch RN - Reason: Order parameters not met)1700 (Due)2100 (Due) ipratropium 0.5 mg-albuterol 2.5 mg (DUONEB) nebulizer solution 1 Dose 1 Dose, Inhalation, 2 TIMES DAILY, First dose (after last modification) on Hayley 09/15/22 at 2100, Until Discontinued, Initiate RT Bronchodilator Protocol: Yes - Inpatient Protocol 0909 (Given - Provider: Constance Cordoba RCP)2231 (Given - Provider: Debi Baez RCP) 0910 (Given - Provider: Lety Magana RCP)2038 (Not Given - Provider: Pamella Munson RCP - Reason: Patient/family refused - Comment: Patient said she would call later if she wants one) 0851 (Not Given - Provider: Lety Magana RCP - Reason: Patient/family refused - Comment: Pt requested to hold off)2100 (Due) lactobacillus (CULTURELLE) capsule 1 capsule 1 capsule, Oral, 2 TIMES DAILY WITH MEALS, First dose on Mon09/19/22 at 1200, Until Discontinued, Do not add to warm or hot foods or beverages. Caps may be opened & mixed in a cool beverage or sprinkled onto baby food or applesauce. Mix entire packet content into cool food or drink until dissolved. 1343 (Given - Provider: Azalea Welch RN)1647 (Not Given - Provider: Azalea Welch RN - Reason: Contraindicated - Comment: too close to previous dose) 0938 (Given - Provider: Azalea Welch RN)1700 (Due) magnesium sulfate 2000 mg in 50 mL IVPB premix (COMPLETED) 2,000 mg, IntraVENous, at 25 mL/hr, Administer over 2 Hours, ONCE, On 09/18/22 at 1000, For 1 dose, Recommended infusion rate not to exceed 1,000 mg (milligrams) per hour. 1033 (New Bag - Provider: Azalea Welch RN)1233 (Stopped - Provider: Azalea Welch RN) meclizine (ANTIVERT) tablet 12.5 mg 12.5 mg, Oral, 3 times daily, First dose (after last modification) on 09/18/22 at 2100, Until Discontinued, Hold if dizziness has resolved 2146 (Given - Provider: Barbara Veliz RN) 0850 (Given - Provider: Azalea Welch RN)1647 (Given - Provider: Azalea Welch RN) 0014 (Given - Provider: Jose Alfredo Cochran RN)0938 (Given - Provider: Azalea Welch RN)1523 (Given - Provider: Azalea Welch RN)2100 (Due) miconazole (MICOTIN) 2 % cream (CANCELED) Topical, 2 TIMES DAILY, First dose on Mon09/16/22 at 2100, Apply to affected area. 0821 (Given - Provider: Azalea Welch RN - Comment: R side)2147 (Given - Provider: Barbara Veliz RN) 0850 (Given - Provider: Azalea Welch RN - Comment: R side) miconazole (MICOTIN) 2 % powder Topical, 2 TIMES DAILY, First dose on Mon09/16/22 at 2100, Apply to affected area . 0820 (Not Given - Provider: Azalea Welch RN - Reason: Other - Comment: using cream)2148 (Not Given - Provider: Barbara Veliz RN - Reason: Other) 0823 (Not Given - Provider: Azalea Welch RN - Reason: Other - Comment: using cream) 0055 (Not Given - Provider: Jose Alfredo Cochran RN - Reason: Medication not available)0938 (Not Given - Provider: Azalea Welch RN - Reason: Other)2100 (Due) pantoprazole (PROTONIX) tablet 40 mg 40 mg, Oral, DAILY BEFORE BREAKFAST, First dose on Mon09/19/22 at 1200, Until Discontinued, Do not crush or break. 1343 (Given - Provider: Azalea Welch RN) 0938 (Given - Provider: Azalea Welch RN) PARoxetine (PAXIL) tablet 10 mg (CANCELED) 10 mg, Per NG tube, DAILY, First dose on Mon09/08/22 at 1315, Until Discontinued 1021 (Given - Provider: Azalea Welch RN) 0850 (Given - Provider: Azalea Welch RN) 0938 (Given - Provider: Azalea Welch RN) PARoxetine (PAXIL) tablet 20 mg 20 mg, Oral, DAILY, First dose (after last modification) on Mon09/21/22 at 0900, Until Discontinued potassium bicarb-citric acid (EFFER-K) effervescent tablet 40 mEq (COMPLETED) 40 mEq, Oral, 2 TIMES DAILY, 2 doses, First dose on 09/18/22 at 0900, Last dose on 09/18/22 at 2100, Do not chew or crush. Dissolve flavored tablets completely in 3 to 4 ounces of cold water; unflavored tablets may be dissolved in 3 to 4 ounces of cold juice. Patient to sip slowly over a 5 to 10 minute period. May further dilute if GI adverse effects occur. 1021 (Given - Provider: Azalea Welch RN)2146 (Given - Provider: Barbara Veliz RN) potassium chloride (KLOR-CON M) extended release tablet 40 mEq (COMPLETED) 40 mEq, Oral, 2 times daily, 2 doses, First dose on Mon09/19/22 at 0900, Last dose on Mon09/19/22 at 2100, Do not crush, chew, or suck on tablet. Tablet may also be broken in half and each half swallowed separately. 0850 (Given - Provider: Azalea Welch RN) 0014 (Given - Provider: Jose Alfredo Cochran RN) psyllium (METAMUCIL) 58.12 % packet 1 packet 1 packet, Oral, DAILY, First dose on Mon09/19/22 at 1200, Until Discontinued 1343 (Given - Provider: Azalea Welch RN) 0938 (Given - Provider: Azalea Welch RN) sodium chloride flush 0.9 % injection 5-40 mL 5-40 mL, IntraVENous, EVERY 12 HOURS SCHEDULED (2 times per day), First dose on Mon09/02/22 at 0900, Until Discontinued, For Line Patency: Peripheral IV = 5 mL; Midline or Central Line = 10 mL/lumen. If following IV push medication, administer flush at same rate as the IV push. Flush volume is determined by type of infusion therapy being given. For non-viscous solutions use: Peripheral IV = 5 mL Midline or Central Line = 10 mL/lumen For viscous solutions (i.e. blood components, parenteral nutrition, contrast media, or after obtaining blood sample) use: Peripheral IV = 10 mL Midline or Central Line = 20 mL/lumen 0822 (Given - Provider: Azalea Welch RN)2146 (Given - Provider: Barbara Veliz, RN) 0851 (Given - Provider: Azalea Welch RN) 0015 (Given - Provider: Jose Alfredo Cochran RN)0939 (Given - Provider: Azalea Welch RN)2100 (Due) spironolactone (ALDACTONE) tablet 25 mg 25 mg, Oral, DAILY, First dose on Mon09/15/22 at 1100, Until Discontinued 0821 (Given - Provider: Azalea Welch RN) 0850 (Given - Provider: Azalea Welch, RN) 0938 (Given - Provider: Azalea Welch, RN) PRN Medication Order 09/18/2022 09/19/2022 09/20/2022 acetaminophen (TYLENOL) tablet 650 mg 650 mg, Oral, EVERY 4 HOURS PRN, Starting on Mon09/12/22 at 1631, Until Discontinued, Pain Mild (1-3), Maximum dose of acetaminophen is 4000 mg from all sources in 24 hours. 1506 (Given - Provider: Azalea Welch RN)2146 (Given - Provider: Barbara Veliz RN) 1647 (Given - Provider: Azalea Welch, RN) 0941 (Given - Provider: Azalea Welch RN) albuterol (PROVENTIL) (2.5 MG/3ML) 0.083% nebulizer solution 2.5 mg 2.5 mg, Nebulization, As Directed - RT (PRN), Starting on Mon09/02/22 at 0524, Until Discontinued, Wheezing, Initiate RT Bronchodilator Protocol: Yes - Inpatient Protocol dextrose 10 % infusion IntraVENous, at 100 mL/hr, CONTINUOUS PRN, if blood glucose remains LESS THAN 70 mg/dL after 2 dextrose 10% intravenous boluses or administration of glucagon, Starting on Mon09/02/22 at 0215, If blood glucose fails to stabilize after 2 dextrose 10% intravenous boluses or glucagon administration, start dextrose 10% infusion at 100 mL/hour and repeat blood glucose at 30 and 60 minutes. If blood glucose is GREATER THAN 70 mg/dL after 60 minutes, discontinue dextrose 10% infusion. dextrose bolus 10% 125 mL(Linked Group 1) 125 mL, IntraVENous, at 937.5 mL/hr, Administer over 8 Minutes, PRN, Other, Blood glucose 40 - 69 mg/dL and patient NOT ALERT or NPO, Starting on Mon09/02/22 at 0215, Repeat blood glucose in 15 minutes. If blood glucose remains LESS THAN 70 mg/dL, repeat treatment and recheck blood glucose in 15 minutes x 2. If using glycemic management system, dose as instructed per system. If blood glucose remains LESS THAN 70 mg/dL after 2 intravenous boluses start dextrose 10% at 100 mL/hour and notify provider. dextrose bolus 10% 125 mL 125 mL, IntraVENous, at 937.5 mL/hr, Administer over 8 Minutes, PRN, Other, Hypoglycemia, Starting on Mon09/02/22 at 0530, If BG 40 - 69 mg/dL: Administer 125 mL (12.5 g) 10% dextrose IV over 8 minutes. Check blood glucose every 15 minutes and repeat above if blood glucose 40 - 69 mg/dL. May repeat x 2. dextrose bolus 10% 250 mL(Linked Group 1) 250 mL, IntraVENous, at 937.5 mL/hr, Administer over 16 Minutes, PRN, Other, Blood glucose LESS THAN 40 mg/dL and patient NOT ALERT or NPO, Starting on Mon09/02/22 at 0215, Repeat blood glucose in 15 minutes. If blood glucose remains LESS THAN 70 mg/dL, repeat treatment and recheck blood glucose in 15 minutes x 2. If using glycemic management system, dose as instructed per system. If blood glucose remains LESS THAN 70 mg/dL after 2 intravenous boluses start dextrose 10% at 100 mL/hour and notify provider. glucagon (rDNA) injection 1 mg 1 mg, SubCUTAneous, PRN, Starting on Mon09/02/22 at 0215, Until Discontinued, Low blood sugar, Blood glucose LESS THAN 70 mg/dL and patient NOT ALERT or NPO and does not have IV access., After administration, attempt intravenous access and start dextrose 10% at 100 mL/hr. Repeat blood glucose in 15 minutes x 2 and notify provider. glucose chewable tablet 16 g 16 g (4 tablet), Oral, PRN, Starting on Mon09/02/22 at 0215, Until Discontinued, Low blood sugar, If blood glucose is LESS THAN 70 mg/dL and patient is alert and tolerating oral. Give 4 tablets (16g) Repeat blood glucose in 15 minutes. If blood glucose is LESS THAN 70 mg/dL, repeat treatment and recheck blood glucose in 15 minutes x 2. If blood glucose remains LESS THAN 70 mg/dL, notify provider. meclizine (ANTIVERT) tablet 12.5 mg (CANCELED) 12.5 mg, Oral, 2 TIMES DAILY PRN, Starting on 09/18/22 at 1211, Until 09/18/22 at 1407, Dizziness 1322 (Given - Provider: Azalea Welch RN) ondansetron (ZOFRAN) injection 4 mg 4 mg, IntraVENous, EVERY 6 HOURS PRN, Starting on Hayley 09/15/22 at 1329, Until Discontinued, Nausea, Vomiting 0100 (Given - Provider: Jose Alfredo Cochran RN) oxyCODONE (ROXICODONE) immediate release tablet 10 mg 10 mg, Oral, EVERY 6 HOURS PRN, Starting on Mon09/15/22 at 2015, Until Discontinued, Pain Moderate (4-6), Pain Severe (7-10) polyethylene glycol (GLYCOLAX) packet 17 g 17 g, Oral, DAILY PRN, Starting on Mon09/02/22 at 0505, Until Discontinued, Constipation, First line therapy for constipation sodium chloride flush 0.9 % injection 5-40 mL 5-40 mL, IntraVENous, PRN, Starting on Mon09/02/22 at 0505, Until Discontinued, Line Care, After every IV line use, For Line Patency: Peripheral IV = 5 mL; Midline or Central Line = 10 mL/lumen. If following IV push medication, administer flush at same rate as the IV push. Flush volume is determined by type of infusion therapy being given. For non-viscous solutions use: Peripheral IV = 5 mL Midline or Central Line = 10 mL/lumen For viscous solutions (i.e. blood components, parenteral nutrition, contrast media, or after obtaining blood sample) use: Peripheral IV = 10 mL Midline or Central Line = 20 mL/lumen Linked Groups Order Group 1: dextrose bolus 10% 125 mLJump to med 125 mL, IntraVENous, at 937.5 mL/hr, Administer over 8 Minutes, PRN, Other, Blood glucose 40 - 69 mg/dL and patient NOT ALERT or NPO, Starting on Mon09/02/22 at 0215
Repeat blood glucose in 15 minutes. If blood glucose remains LESS THAN 70 mg/dL, repeat treatment and recheck blood glucose in 15 minutes x 2. If using glycemic management system, dose as instructed per system. If blood glucose remains LESS THAN 70 mg/dL after 2 intravenous boluses start dextrose 10% at 100 mL/hour and notify provider.
Or dextrose bolus 10% 250 mLJump to med 250 mL, IntraVENous, at 937.5 mL/hr, Administer over 16 Minutes, PRN, Other, Blood glucose LESS THAN 40 mg/dL and patient NOT ALERT or NPO, Starting on Mon09/02/22 at 0215
Repeat blood glucose in 15 minutes. If blood glucose remains LESS THAN 70 mg/dL, repeat treatment and recheck blood glucose in 15 minutes x 2. If using glycemic management system, dose as instructed per system. If blood glucose remains LESS THAN 70 mg/dL after 2 intravenous boluses start dextrose 10% at 100 mL/hour and notify provider.
Scheduled Medication Order 07/28/2024 07/29/2024 07/30/2024 acetaminophen (TYLENOL) tablet 1,000 mg 1,000 mg, Oral, EVERY 8 HOURS SCHEDULED (3 times per day), First dose on Mon07/24/24 at 1400, Until Discontinued, Maximum dose of acetaminophen is 4000 mg from all sources in 24 hours. 0505 (Given - Provider: Anna Mendoza, SUZANNE)1400 (Not Given - Provider: Breana Manzo RN - Reason: Pt NPO)2138 (Given - Provider: Deloris Rojas, SUZANNE) 0527 (Given - Provider: Deloris Rojas, SUZANNE)1240 (Not Given - Provider: Barbara Novak RN - Reason: Other)2000 (Given - Provider: Nica Carter RN) 0552 (Given - Provider: Nica Carter, SUZANNE)1455 (Given - Provider: Tabitha Hercules RN)2200 (Due) ceFEPIme (MAXIPIME) 2,000 mg in sodium chloride 0.9 % 100 mL IVPB (addEASE) (CANCELED) 2,000 mg, IntraVENous, at 200 mL/hr, Administer over 30 Minutes, EVERY 12 HOURS, First dose on Mon07/23/24 at 0130, Use 20mm (GREEN) addEASE Adapter Prep Instructions: Attach medication vial to one 20mm (GREEN) addEASE adapter. Ross fluid bag with adapter, mix, and administer per order. 0148 (New Bag - Provider: Anna Mendoza, SUZANNE)0218 (Stopped - Provider: Anna Mendoza, SUZANNE) chlorhexidine (PERIDEX) 0.12 % solution 15 mL (CANCELED) 15 mL, Mouth/Throat, 2 TIMES DAILY, First dose on Mon07/20/24 at 0000, Until Discontinued, For mechanical ventilation care. 1059 (Given - Provider: Breana Manzo, SUZANNE) enoxaparin (LOVENOX) injection 40 mg (CANCELED) 40 mg, SubCUTAneous, DAILY, First dose (after last modification) on Mon07/29/24 at 0900, Until Discontinued, Indication of Use: Prophylaxis-DVT/PE, Administer by deep subCUTAneous injection with pt lying down. Alternate injection sites on abdominal wall. Do not rub site after injection. Check with provider prior to any invasive procedure. 0846 (Given - Provider: Barbara Novak RN) enoxaparin Sodium (LOVENOX) injection 30 mg (CANCELED) 30 mg, SubCUTAneous, 2 TIMES DAILY, First dose on Mon07/24/24 at 1245, Until Discontinued, Indication of Use: Prophylaxis-DVT/PE, Administer by deep subCUTAneous injection with pt lying down. Alternate injection sites on abdominal wall. Do not rub site after injection. Check with provider prior to any invasive procedure. 1099 (Given - Provider: Breana Manzo RN)2003 (Given - Provider: Deloris Rojas, SUZANNE) enoxaparin Sodium (LOVENOX) injection 30 mg 30 mg, SubCUTAneous, 2 TIMES DAILY, First dose (after last modification) on Mon07/29/24 at 2100, Until Discontinued, Indication of Use: Prophylaxis-DVT/PE, Administer by deep subCUTAneous injection with pt lying down. Alternate injection sites on abdominal wall. Do not rub site after injection. Check with provider prior to any invasive procedure. 1999 (Given - Provider: Nica Carter RN) 08 (Given - Provider: Tabitha Hercules RN)2100 (Due) famotidine (PEPCID) 20 MG/2ML 20 mg in sodium chloride (PF) 0.9 % 10 mL injection (CANCELED) 20 mg, IntraVENous, 2 TIMES DAILY, First dose on Mon07/24/24 at 1115, Until Discontinued, IV Push over minimum of 2 minutes - Dilute with 10 mL NS 1101 (Given - Provider: Breana Manzo RN)2003 (Given - Provider: Deloris Rojas RN) gabapentin (NEURONTIN) capsule 300 mg 300 mg, Oral, EVERY 8 HOURS SCHEDULED (3 times per day), First dose on Mon07/24/24 at 1400, Until Discontinued 0506 (Given - Provider: Anna Mendoza RN - Comment: [facility])1400 (Not Given - Provider: Breana Manzo RN - Reason: Pt NPO)2137 (Given - Provider: Deloris Rojas RN) 0527 (Given - Provider: Deloris Roajs RN)1240 (Not Given - Provider: Barbara Novak RN - Reason: Other)2000 (Given - Provider: Nica Carter RN) 0553 (Given - Provider: Nica Carter RN)1454 (Given - Provider: Tabitha Hercules, RN)2200 (Due) glipiZIDE (GLUCOTROL) tablet 10 mg 10 mg, Oral, 2 TIMES DAILY, First dose on Mon07/24/24 at 1100, Until Discontinued 0900 (Automatically Held)2100 (Automatically Held) 0900 (Automatically Held)2100 (Automatically Held) 0900 (Automatically Held)1135 (Unheld by provider - Provider: Charisse Mckeon APRN - [employer] DIV[employer] CHIEF)2100 (Due) insulin glargine (LANTUS) injection vial 20 Units 20 Units, SubCUTAneous, 2 TIMES DAILY, First dose (after last modification) on Mon07/30/24 at 2100, Until Discontinued 2100 (Due) insulin glargine (LANTUS) injection vial 35 Units (CANCELED) 35 Units, SubCUTAneous, 2 TIMES DAILY, First dose (after last modification) on Mon07/28/24 at 0900, Until Discontinued 1100 (Given - Provider: Breana Manzo RN)204 (Given - Provider: Deloris Rojas RN) 0748 (Given - Provider: Barbara Novak RN)2000 (Given - Provider: Nica Carter RN) 0826 (Given - Provider: Tabitha Hercules, SUZANNE) insulin lispro (HUMALOG,ADMELOG) injection vial 0-16 Units 0-16 Units, SubCUTAneous, EVERY 4 HOURS, First dose on Mon07/26/24 at 1600, Until Discontinued, High Dose Corrective Algorithm Glucose: Dose: 70-180 No Insulin 181-200 4 Units 201-250 8 Units 251-300 12 Units 301 or greater 16 Units and notify physician 0201 (Given - Provider: Anna Mendoza, SUZANNE)0506 (Given - Provider: Anna Mendoza, SUZANNE)1055 (Not Given - Provider: Breana Manzo RN - Reason: Other - Comment: too close to next dose)1059 (Given - Provider: Breana Manzo RN)1817 (Not Given - Provider: Breana Manzo RN - Reason: Other - Comment: BS 185 too close to next dose)2001 (Given - Provider: Deloris Rojas RN - Comment: BS 185)2322 (Not Given - Provider: Deloris Rojas RN - Reason: Order parameters not met - Comment: BS 153) 0358 (Not Given - Provider: Deloris Rojas RN - Reason: Order parameters not met)0733 (Not Given - Provider: Barbraa Novak RN - Reason: Order parameters not met)1200 (Not Given - Provider: Barbara Novak RN - Reason: Order parameters not met)1402 (Not Given - Provider: Barbara Novak RN - Reason: Order parameters not met)1926 (Not Given - Provider: Nica Carter RN - Reason: Contraindicated - Comment: BS - 155) 0012 (Not Given - Provider: Nica Carter RN - Reason: Contraindicated - Comment: BS - 135)0410 (Not Given - Provider: Nica Carter RN - Reason: Contraindicated - Comment: BS - 115)0823 (Not Given - Provider: Tabitha Hercules RN - Reason: Contraindicated - Comment: 116)1144 (Not Given - Provider: Tabitha Hercules RN - Reason: Contraindicated - Comment: 110)1722 (Not Given - Provider: Tabitha Hercules RN - Reason: Contraindicated)1999 (Due) lidocaine 1 % injection 50 mg 50 mg, IntraDERmal, ONCE, 1 dose, On Mon07/30/24 at 1445 1445 (Due) lisinopril (PRINIVIL;ZESTRIL) tablet 5 mg 5 mg, Oral, DAILY, First dose on Mon07/24/24 at 1100, Until Discontinued 0900 (Automatically Held) 0900 (Automatically Held) 0900 (Automatically Held)1135 (Unheld by provider - Provider: Charisse Mckeon, CAT - [employer] CHIEF) meropenem (MERREM) 1,000 mg in sodium chloride 0.9 % 100 mL IVPB (addEASE) 1,000 mg, IntraVENous, at 33.3 mL/hr, Administer over 180 Minutes, EVERY 8 HOURS, First dose on 07/28/24 at 2330, Use 20mm (GREEN) addEASE Adapter Prep Instructions: Attach medication vial to one 20mm (GREEN) addEASE adapter. Ross fluid bag with adapter, mix, and administer per order. 2312 (New Bag - Provider: Deloris Rojas RN) 0018 (Rate/Dose Verify - Provider: Deloris Rojas RN)0214 (Stopped - Provider: Deloris Rojas RN)0230 (Stopped - Provider: Deloris Rojas RN)0708 (New Bag - Provider: Deloris Rojas RN)1008 (Stopped - Provider: Barbara Novak RN)1135 (Stopped - Provider: Barbara Novak RN)1436 (New Bag - Provider: Barbara Novak RN)1736 (Stopped - Provider: Barbara Novak RN)1738 (Stopped - Provider: Barbara Novak RN) 0000 (New Bag - Provider: Nica Carter RN)0035 (Rate/Dose Verify - Provider: Nica Carter RN)0300 (Stopped - Provider: Nica Carter RN)0816 (New Bag - Provider: Tabitha Hercules, SUZANNE)1127 (Stopped - Provider: Tabitha Hercules, RN)1455 (New Bag - Provider: Tabitha Hercules, RN)1722 (Stopped - Provider: Tabitha Hercules, RN)2330 (Due) meropenem (MERREM) 1,000 mg in sodium chloride 0.9 % 100 mL IVPB (addEASE) (COMPLETED) 1,000 mg, IntraVENous, at 200 mL/hr, Administer over 30 Minutes, Once, On 07/28/24 at 1530, For 1 dose, Use 20mm (GREEN) addEASE Adapter Prep Instructions: Attach medication vial to one 20mm (GREEN) addEASE adapter. Ross fluid bag with adapter, mix, and administer per order. 1516 (New Bag - Provider: Breana Manzo RN)1546 (Stopped - Provider: Breana Manzo RN)1548 (Stopped - Provider: Breana Manzo RN) midodrine (PROAMATINE) tablet 10 mg 10 mg, Oral, 3 TIMES DAILY, First dose on Mon07/24/24 at 1400, Until Discontinued, Do not give after 1800 or within 4 hrs of bedtime. Give for SBP<100 1101 (Given - Provider: Breana Manzo RN)1511 (Not Given - Provider: Breana Manzo RN - Reason: Order parameters not met)1959 (Not Given - Provider: Deloris Rojas RN - Reason: Order parameters not met) 0748 (Not Given - Provider: Barbara Novak RN - Reason: Contraindicated)1240 (Not Given - Provider: Barbara Novak RN - Reason: Order parameters not met)2207 (Given - Provider: Nica Carter RN - Comment: BP 95/42 MAP 56) 0825 (Given - Provider: Tabitha Hercules, SUZANNE)1455 (Given - Provider: Tabitha Hercules RN)2100 (Due) pantoprazole (PROTONIX) tablet 40 mg 40 mg, Oral, DAILY BEFORE BREAKFAST, First dose on Mon07/29/24 at 0800, Until Discontinued, Do not crush or break. 0750 (Given - Provider: Barbara Novak RN) 0553 (Given - Provider: Nica Carter RN) PARoxetine (PAXIL) tablet 10 mg 10 mg, Oral, DAILY, First dose on Mon07/24/24 at 1130, Until Discontinued 1101 (Given - Provider: Breana Manzo RN) 0748 (Given - Provider: Barbara Novak RN) 0825 (Given - Provider: Tabitha Hercules RN) polyethylene glycol (GLYCOLAX) packet 17 g 17 g, Oral, DAILY, First dose on Mon07/24/24 at 1130, Until Discontinued, Stir and dissolve one packet of powder (17 g) in any 4 to 8 ounces of beverage (cold, hot or room temperature) then drink 1101 (Given - Provider: Breana Manzo RN) 0748 (Given - Provider: Barbara Novak RN) 0825 (Given - Provider: Tabitha Homerick, RN) potassium phosphate 10 mmol in sodium chloride 0.9 % 250 mL IVPB (COMPLETED) 10 mmol, IntraVENous, at 41.7 mL/hr, Administer over 360 Minutes, ONCE, On Mon07/29/24 at 1545, For 1 dose 1737 (New Bag - Provider: Barbara Novak RN)1805 (Rate/Dose Verify - Provider: Barbara Novak RN)2338 (Stopped - Provider: Nica Carter RN)2358 (Stopped - Provider: Nica Carter, RN) potassium phosphate 20 mmol in sodium chloride 0.9 % 250 mL IVPB for central line (COMPLETED) 20 mmol, IntraVENous, at 62.5 mL/hr, Administer over 240 Minutes, ONCE, On Mon07/28/24 at 0700, For 1 dose 1059 (New Bag - Provider: Breana Manzo RN)1430 (Rate/Dose Verify - Provider: Breana Manzo RN)1459 (Stopped - Provider: Breana Manzo RN)1506 (Stopped - Provider: Breana Manzo RN) pravastatin (PRAVACHOL) tablet 20 mg 20 mg, Oral, DAILY, First dose on Mon07/24/24 at 1130, Until Discontinued 1109 (Given - Provider: Breana Manzo RN) 0748 (Given - Provider: Barbaar Novak RN) 0825 (Given - Provider: Tabitha Hercules, RN) sennosides-docusate sodium (SENOKOT-S) 8.6-50 MG tablet 2 tablet 2 tablet, Oral, 2 times daily, First dose on Mon07/24/24 at 1130, Until Discontinued 1101 (Given - Provider: Breana Manzo RN)2002 (Given - Provider: Deloris Rojas RN) 0748 (Given - Provider: Barbara Novak RN)1999 (Given - Provider: Nica Carter, SUZANNE) 0825 (Given - Provider: Tabitha Hercules, RN)2100 (Due) sodium chloride 0.9 % bolus 500 mL (COMPLETED) 500 mL (3.34 mL/kg), IntraVENous, at 247.9 mL/hr, Administer over 121 Minutes, ONCE, On Mon07/28/24 at 0245, For 1 dose 0232 (New Bag - Provider: Anna Mendoza, RN)0433 (Stopped - Provider: Anna Mendoza RN) sodium chloride flush 0.9 % injection 5-40 mL (CANCELED) 5-40 mL, IntraVENous, EVERY 12 HOURS SCHEDULED (2 times per day), First dose on Mon07/19/24 at 2100, Until Discontinued, For Line Patency: Peripheral IV = 5 mL; Midline or Central Line = 10 mL/lumen. If following IV push medication, administer flush at same rate as the IV push. Flush volume is determined by type of infusion therapy being given. For non-viscous solutions use: Peripheral IV = 5 mL Midline or Central Line = 10 mL/lumen For viscous solutions (i.e. blood components, parenteral nutrition, contrast media, or after obtaining blood sample) use: Peripheral IV = 10 mL Midline or Central Line = 20 mL/lumen 1102 (Given - Provider: Breana Manzo RN)2002 (Given - Provider: Deloris Rojas RN) sodium chloride flush 0.9 % injection 5-40 mL 5-40 mL, IntraVENous, EVERY 12 HOURS SCHEDULED (2 times per day), First dose on Mon07/30/24 at 2100, Until Discontinued, For Line Patency: Peripheral IV = 5 mL; Midline or Central Line = 10 mL/lumen. If following IV push medication, administer flush at same rate as the IV push. Flush volume is determined by type of infusion therapy being given. For non-viscous solutions use: Peripheral IV = 5 mL Midline or Central Line = 10 mL/lumen For viscous solutions (i.e. blood components, parenteral nutrition, contrast media, or after obtaining blood sample) use: Peripheral IV = 10 mL Midline or Central Line = 20 mL/lumen 2100 (Due) sodium hypochlorite (DAKINS) 0.125 % external solution (CANCELED) Irrigation, DAILY, First dose on Mon07/23/24 at 1130 1103 (Given - Provider: Breana Manzo RN) 0748 (Given - Provider: Barbara Novak RN) Continuous Medication Order 07/28/2024 07/29/2024 07/30/2024 dexmedeTOMIDine (PRECEDEX) 400 mcg in sodium chloride 0.9 % 100 mL infusion (CANCELED) 0.1-1.5 mcg/kg/hr 152 kg (3.8-57 mL/hr), IntraVENous, CONTINUOUS, Starting on Mon07/24/24 at 1345, Until Mon07/28/24 at 1408, Titrate Infusion? Yes, Initial Infusion Dose: 0.2 mcg/kg/hr, Goal of Therapy: RASS of 0 to -1, Contact Provider if: New onset HR less than 50 bpm, New onset SBP less than 90 mmHg, Patient is receiving maximum dose and is not achieving the goal of therapy, If Titrate Infusion? is No : Disregard instructions below. If Titrate infusion? is Yes : Titrate in increments of 0.2 mcg/kg/hr no more frequently than every 30 minutes to goal of therapy. If after titration rate change patient exhibits adverse hemodynamic response, next titration rate change may be adjusted by one-half of the previous rate change. 0146 (Rate/Dose Verify - Provider: Anna Mendoza RN)0358 (Rate/Dose Verify - Provider: Anna Mendoza RN)0358 (Rate/Dose Verify - Provider: Anna Mendoza RN)0440 (Rate/Dose Verify - Provider: Anna Mendoza RN)0441 (Rate/Dose Verify - Provider: Anna Mendoza RN)0628 (Rate/Dose Change - Provider: Anna Mendoza RN)0632 (Stopped - Provider: Anna Mendoza RN)0657 (New Bag - Provider: Anna Mendoza RN)0740 (Rate/Dose Verify - Provider: Anna Mendoza RN)1056 (Rate/Dose Change - Provider: Breana Manzo RN)1158 (Rate/Dose Change - Provider: Breana Manzo RN)1200 (Stopped - Provider: Breana Manzo RN) dextrose 5 % and 0.45 % NaCl with KCl 20 mEq infusion IntraVENous, at 100 mL/hr, CONTINUOUS, Starting on Mon07/29/24 at 1000 0946 (New Bag - Provider: Barbara Novak RN)1300 (Rate/Dose Verify - Provider: Barbara Novak RN)1805 (Rate/Dose Verify - Provider: Barbara Novak RN)193 (Stopped - Provider: Nica Carter RN)193 (New Bag - Provider: Nica Carter RN) 0035 (Rate/Dose Verify - Provider: Nica Carter RN)0339 (Rate/Dose Change - Provider: Nica Carter RN)0340 (Rate/Dose Change - Provider: Nica Carter RN)0425 (Rate/Dose Change - Provider: Nica Carter RN)0425 (Rate/Dose Change - Provider: Nica Carter RN)0436 (Rate/Dose Verify - Provider: iNca Carter RN)0525 (Rate/Dose Verify - Provider: Nica Carter RN)0552 (Stopped - Provider: Nica Carter RN)0552 (New Bag - Provider: Nica Carter RN)0622 (Rate/Dose Verify - Provider: Nica Carter RN) fentaNYL 2500 mcg/ 50 mL IV infusion (CANCELED) 25-200 mcg/hr (0.5-4 mL/hr), IntraVENous, CONTINUOUS, Starting on 07/20/24 at 0015, Until 07/28/24 at 1408, Titrate Infusion? Yes, Initial Infusion Dose: 50 mcg/hr, Goal of Therapy is: RASS of 0 to -1, Contact Provider if: Patient is receiving the maximum dose and is not achieving the goal of therapy, If Titrate Infusion? is No : Disregard instructions below. If Titrate infusion? is Yes : Titrate in increments of 25 mcg/hr no more frequently than every 30 minutes to goal of therapy. If after titration dose change patient exhibits adverse hemodynamic response, next titration dose change may be adjusted by one-half of the previous dose change. If patient fails sedation interruption, resume infusion at 50% of previous dose. 0039 (Rate/Dose Verify - Provider: Anna Mendoza RN)0039 (Rate/Dose Verify - Provider: Anna Mendoza RN)0152 (Stopped - Provider: Anna Mendoza RN)0152 (New Bag - Provider: Anna Mendoza RN)0429 (Rate/Dose Verify - Provider: Anna Mendoza RN)0729 (Handoff - Provider: Anna Mendoza RN)0740 (Rate/Dose Verify - Provider: Anna Mendoza RN)1027 (Rate/Dose Verify - Provider: Breana Manzo RN)1158 (Rate/Dose Change - Provider: Breana Manzo RN)1200 (Stopped - Provider: Breana Manzo RN) lactated ringers infusion (CANCELED) IntraVENous, at 100 mL/hr, CONTINUOUS, Starting on Mon07/28/24 at 1700 1834 (New Bag - Provider: Breana Manzo RN)1835 (Rate/Dose Verify - Provider: Breana Manzo RN)1926 (Rate/Dose Verify - Provider: Breana Manzo RN)2246 (Rate/Dose Verify - Provider: Deloris Rojas RN) 0018 (Rate/Dose Verify - Provider: Deloris Rojas RN)0235 (Rate/Dose Verify - Provider: Deloris Rojas RN)0337 (Rate/Dose Verify - Provider: Deloris Rojas RN)0338 (Stopped - Provider: Deloris Rojas RN)0338 (New Bag - Provider: Deloris Rojas RN)0421 (Rate/Dose Verify - Provider: Deloris Rojas RN)0659 (Rate/Dose Verify - Provider: Deloris Rojas RN)0946 (Stopped - Provider: Barbara Novak RN) norepinephrine (LEVOPHED) 16 mg in sodium chloride 0.9 % 250 mL infusion (premix) (CANCELED) 1-100 mcg/min (0.9375-93.75 mL/hr, rounded to 0.9-93.8 mL/hr), IntraVENous, CONTINUOUS, Starting on Mon07/24/24 at 1915, Until Mon07/28/24 at 1252, Titrate Infusion? Yes, Initial Infusion Dose: 5 mcg/min, Goal of Therapy is: MAP greater than 65 mmHg, Contact Provider if: Patient is receiving the maximum dose and is not achieving the goal of therapy, Vascular access recommendations: - Step 1: Is the concentration GREATER than 16mg/250mL? >Yes - REQUIRES A central line >No - Proceed to step 2 -Step 2: Concentrations LESS THAN OR EQUAL TO 16mg/250mL, central line preferred, may administer through a peripheral intraVENous catheter for emergent situations (in anticipation of central line placement) or for a short duration (less than 48 hours) if placed in a large vein, at a proximal site. If available, refer to site specific guidance for additional administration requirements/instructions . If Titrate Infusion? is No : Disregard instructions below. If Titrate infusion? is Yes : If rate LESS than 10 mcg/min: Titrate by 2 mcg/min no faster than every 5 minutes to goal. If rate GREATER than or equal to 10 mcg/min: Titrate by 5 mcg/min no faster than every 5 minutes to goal. When approaching therapeutic goal or weaning off, smaller titration increments of 1 mcg/min no faster than every 5 minutes may be used to maintain goal. If patient is not at goal for >15 minutes, titrate infusion by 10 mcg/min every 2 minutes for a max of 10 minutes and contact the provider for further instructions/orders. Restarting the infusion: If the infusion has been stopped for less than or equal to 30 minutes, resume at previous dose. If the infusion has been stopped for greater than 30 minutes, resume at initial starting dose in order. 0016 (Rate/Dose Change - Provider: Anna Mendoza RN)0032 (Rate/Dose Change - Provider: Anna Mendoza RN)0103 (Rate/Dose Change - Provider: Anna Mendoza RN)0116 (Rate/Dose Change - Provider: Anna Mendoza RN)0230 (Rate/Dose Change - Provider: Anna Mendoza RN)0401 (Rate/Dose Change - Provider: Anna Mendoza RN)0433 (Rate/Dose Change - Provider: Anna Mendoza, SUZANNE)0445 (Rate/Dose Change - Provider: Anna Mendoza RN)0450 (Rate/Dose Change - Provider: Anna Mendoza RN)0504 (Rate/Dose Change - Provider: Anna Mendoza RN)0521 (Rate/Dose Change - Provider: Anna Mendoza RN)0544 (Rate/Dose Change - Provider: Anna Mendoza RN)0716 (Rate/Dose Change - Provider: Anna Mendoza RN)0740 (Rate/Dose Verify - Provider: Anna Mendoza RN)1048 (Rate/Dose Change - Provider: Breana Manzo RN)1157 (Rate/Dose Change - Provider: Breana Manzo RN)1201 (Rate/Dose Change - Provider: Breana Manzo RN)1330 (Stopped - Provider: Breana Manzo RN) norepinephrine (LEVOPHED) 16 mg in sodium chloride 0.9 % 250 mL infusion (premix) (CANCELED) 1-100 mcg/min (0.9375-93.75 mL/hr, rounded to 0.9-93.8 mL/hr), IntraVENous, CONTINUOUS, Starting on Mon07/28/24 at 1315, Until Mon07/29/24 at 0715, Titrate Infusion? Yes, Initial Infusion Dose: 5 mcg/min, Goal of Therapy is: Other SBP goal, Goal SBP greater than (mmHg): SBP > 100, Contact Provider if: Patient is receiving the maximum dose and is not achieving the goal of therapy, Vascular access recommendations: - Step 1: Is the concentration GREATER than 16mg/250mL? >Yes - REQUIRES A central line >No - Proceed to step 2 -Step 2: Concentrations LESS THAN OR EQUAL TO 16mg/250mL, central line preferred, may administer through a peripheral intraVENous catheter for emergent situations (in anticipation of central line placement) or for a short duration (less than 48 hours) if placed in a large vein, at a proximal site. If available, refer to site specific guidance for additional administration requirements/instructions . If Titrate Infusion? is No : Disregard instructions below. If Titrate infusion? is Yes : If rate LESS than 10 mcg/min: Titrate by 2 mcg/min no faster than every 5 minutes to goal. If rate GREATER than or equal to 10 mcg/min: Titrate by 5 mcg/min no faster than every 5 minutes to goal. When approaching therapeutic goal or weaning off, smaller titration increments of 1 mcg/min no faster than every 5 minutes may be used to maintain goal. If patient is not at goal for >15 minutes, titrate infusion by 10 mcg/min every 2 minutes for a max of 10 minutes and contact the provider for further instructions/orders. Restarting the infusion: If the infusion has been stopped for less than or equal to 30 minutes, resume at previous dose. If the infusion has been stopped for greater than 30 minutes, resume at initial starting dose in order. 1505 (Rate/Dose Verify - Provider: Breana Manzo RN) Care Teams (unrecognized sec tion and content) Desulphuring Operator Relationship Specialty Start Date End Date BillyCandida montesinos [address] [place] [address] PCP - General Nurse Practitioner 09/02/22 Team Status: Inactive Member Role Status Dates NON STAFF Attending Provider Active Desulphuring Operator Relationship Specialty Start Date End Date Mark Singh MD [address] [place] [phone] PCP - General Family Medicine 03/03/23 Candida Brown NP [address] [place] [phone] Nurse Practitioner Family Medicine 11/13/22 Desulphuring Operator Relationship Specialty Start Date End Date Unallocated, Baljeet Velazquez MD [facility] [place] [address] PCP - General Family Medicine 12/06/23 Candida Brown NP [address] [place] [phone] Nurse Practitioner Family Medicine 11/13/22 Desulphuring Operator Relationship Specialty Start Date End Date Unallocated, Baljeet Velazquez MD [address] [place] [id number] PCP - General Family Medicine 12/06/23 Candida Brown NP [address] [place] [phone] Nurse Practitioner Family Medicine 11/13/22 Desulphuring Operator Relationship Specialty Start Date End Date Unallocated, Daniss MD [address] [place] [address] PCP - General Family Medicine 12/06/23 Candida Brown NP [address] [place] [phone] Nurse Practitioner Family Medicine 11/13/22 Desulphuring Operator Relationship Specialty Start Date End Date Unallocated, Noms MD [address] [place] [address] PCP - General Family Medicine 12/06/23 Candida Brown NP [address] [place] [phone] Nurse Practitioner Family Medicine 11/13/22 Desulphuring Operator Relationship Specialty Start Date End Date Mark Singh MD [address] [place] [phone] PCP - General Family Medicine 12/14/23 Candida Brown NP [address] [place] [phone] Nurse Practitioner Family Medicine 11/13/22 Desulphuring Operator Relationship Specialty Start Date End Date Mark Singh MD [address] [phone] PCP - General Family Medicine 03/03/23 Candida Brown NP [address] [place] [phone] Nurse Practitioner Family Medicine 11/13/22 Desulphuring Operator Relationship Specialty Start Date End Date Mark Singh MD [address] [place] [address] PCP - General Family Medicine 03/03/23 Candida Brown NP [address] [place] [address] Nurse Practitioner Family Medicine 11/13/22 Desulphuring Operator Relationship Specialty Start Date End Date Mark Singh MD [address] [place] [phone] PCP - General Family Medicine 12/14/23 Candida Brown NP [address] [place] [address] Nurse Practitioner Family Medicine 11/13/22 Desulphuring Operator Relationship Specialty Start Date End Date Mark Singh MD [address] [place] [phone] PCP - General Family Medicine 12/14/23 Candida Brown NP [address] [place] [address] Nurse Practitioner Family Medicine 11/13/22 Desulphuring Operator Relationship Specialty Start Date End Date Mrak Singh MD [address] [place] [address] PCP - General Family Medicine 12/14/23 Candida Brown NP [address] [place] [phone] Nurse Practitioner Family Medicine 11/13/22 Desulphuring Operator Relationship Specialty Start Date End Date Mark Singh MD [address] [place] [phone] PCP - General Family Medicine 12/14/23 Candida Brown NP [address] [place] [phone] Nurse Practitioner Family Medicine 11/13/22 Desulphuring Operator Relationship Specialty Start Date End Date Mark Singh MD [address] [place] [phone] PCP - General Family Medicine 12/14/23 Candida Brown NP [address] [place] [phone] Nurse Practitioner Family Medicine 11/13/22 Desulphuring Operator Relationship Specialty Start Date End Date Mark Singh MD [address] [place] [phone] PCP - General Family Medicine 12/14/23 Candida Brown NP [address] [place] [address] Nurse Practitioner Family Medicine 11/13/22 Desulphuring Operator Relationship Specialty Start Date End Date Mark Singh MD [address] [place] [address] PCP - General Family Medicine 12/14/23 Candida Brown NP [address] [place] [address] Nurse Practitioner Family Medicine 11/13/22 Team Status: Inactive Member Role Status Dates Chuck Julian DO Attending Provider Active Start : July 19, 2024 End: July 19, 2024 Desulphuring Operator Relationship Specialty Start Date End Date Mark Singh MD [address] [place] [address] PCP - General Family Medicine 12/14/23 Candida Brown NP [address] [place] [address] Nurse Practitioner Family Medicine 11/13/22 Desulphuring Operator Relationship Specialty Start Date End Date Candida Brown APRN - [facility] [address] [id number] PCP - General Nurse Practitioner 09/02/22 Goals (unrecognized section and content) Goals may be documented in a n alternate sectionGoals may be documented in an alternate section FOR RECORDS PERTAINING TO PATIENTS WHO ARE OR HAVE BEEN ENROLLED IN A CHEMICAL DEPENDENCY/SUBSTANCEABUSE PROGRAM, SOME INFORMATION MAY BE OMITTED. This clinical summary was aggregated from multiple sources. Caution should be exercised in using it in the provision of clinical care. This summary normalizes information from multiple sources, and as a consequence, information in this document may materially change the coding, format and clinical context of patient data. In addition, data may be omitted in some cases. CLINICAL DECISIONS SHOULD BE BASED ON THE PRIMARY CLINICAL RECORDS. [email or web address] provides no warranty or guarantee of the accuracy or completeness of information in this document.
== END 2024-09-24 15:09 | disposition home or self-care (01) ==
LOC: LAB 15:08
PROVIDERS: PCP Nurse Practitioner; Visit Provider Family Medicine
DX: T81.30XA Disruption of wound, unspecified, initial encounter (principal)
CPT/HCPCS: 87070; 87075